=== PATIENT | female | born 1960 | race Caucasian/White ===

== ENCOUNTER 2023-05-08 10:06 | Outpatient (OUT) | payer BC, SELFPAY ==
--- NOTE | 2023-05-08 10:09 | MM_ITS ---
Patient: DANIELLA BEJARANO Exam Date: 05/08/2023 : 1960 Gender:F Ordering : DR Bayron Wells . Admission #: [id number] Family : Order #: [id number] CLICK HERE TO VIEW EXAM RADIOLOGY REPORT PROCEDURE: MM TOMOSYNTHESIS SCREENING LT COMPARISON: MG MAMM SCREEN LT 3D CAD, 04/11/2022. INDICATIONS: Screening Calculator Name NCI Breast Cancer Risk Assessment Tool 5 Year Breast Cancer Risk n/a% Lifetime Breast Cancer Risk n/a% Personal Breast Cancer Yes, Invasive CA of Right, 56 Personal Ovarian Cancer No Treatments Right mastectomy Family Cancers Aunt-maternal with breast cancer at age ~70; Aunt-paternal with breast cancer at age ~70. LOCATION: [facility] BREAST COMPOSITION: Scattered areas fibroglandular density. FINDINGS: DIAGNOSTIC CATEGORY 1--NEGATIVE. RIGHT BREAST: No significant suspicious finding. No significant change has occurred. LEFT BREAST: No significant suspicious finding. No significant change has occurred. RECOMMENDATIONS: ROUTINE MAMMOGRAM AND CLINICAL EVALUATION IN 12 MONTHS. PLEASE NOTE: A NORMAL MAMMOGRAM DOES NOT EXCLUDE THE POSSIBILITY OF BREAST CANCER. A CLINICALLY SUSPICIOUS PALPABLE LUMP SHOULD BE BIOPSIED. Dictated by: Amol Valles M.D. on 05/09/2023 at 09:58 Approved by: Amol Valles M.D. on 05/09/2023 at 09:59
== END 2023-05-08 10:07 | disposition home or self-care (01) ==
LOC: MAMMO 10:06
PROVIDERS: PCP Family Medicine; Visit Provider Family Medicine
DX: Z12.31 Encounter for screening mammogram for malignant neoplasm of breast (principal); Z85.3 Personal history of malignant neoplasm of breast; Z90.11 Acquired absence of right breast and nipple; Z80.3 Family history of malignant neoplasm of breast
CPT/HCPCS: 77063; 77067

== ENCOUNTER 2023-05-24 06:39 | Outpatient (OUT) | payer BC, SELFPAY ==
[2023-05-24 07:03] LABS: Basophils Absolute Auto 0.1 10^3/uL (0.0-0.1); Basophils Percent Auto 0.9 % (0.2-2.0); Eosinophils Absolute Auto 0.1 10^3/uL (0.0-0.7); Eosinophils Percent Auto 1.7 % (0.9-7.0); Hematocrit 36.7 % (36.0-48.0); Hemoglobin 11.9 g/dL (12.0-16.0); Immature Granulocytes Abs Auto 0.02 10^3/uL (0.00-0.03); Immature Granulocytes Pct Auto 0.4 % (0.0-0.5); Lymphocytes Absolute Auto 1.9 10^3/uL (1.2-3.8); Lymphocytes Percent Auto 35.5 % (20.5-60.0); Mean Corpuscular HGB Conc 32.4 g/dL (29.9-35.2); Mean Corpuscular Volume 83.4 fL (81.0-99.0); Mean Platelet Volume 9.1 fL (9.5-13.5); Monocytes Absolute Auto 0.4 10^3/uL (0.3-0.8); Monocytes Percent Auto 7.6 % (1.7-12.0); Neutrophils Absolute Auto 2.9 10^3/uL (1.4-6.5); Neutrophils Percent Auto 53.9 % (43.0-75.0); Platelet Count 217 10^3/uL (150-450); Red Cell Distribution Width 16.5 % (11.0-15.0); White Blood Count 5.3 10^3/uL (4.0-11.0)
[2023-05-24 07:24] LABS: Alanine Aminotransferase 52 U/L (14-59); Albumin Level 3.5 g/dL (3.4-5.0); Alkaline Phosphatase 80 U/L (46-116); Anion Gap 15.7; Aspartate Amino Transferase 38 U/L (15-37); BUN Creatinine Ratio 17.3; Bilirubin Total 0.4 mg/dL (0.2-1.0); Calcium 9.4 mg/dL (8.5-10.1); Carbon Dioxide 23.4 mmol/L (21.0-32.0); Chloride 107 mmol/L (98-107); Estimated GFR (African America >60 (>=60); Estimated GFR (Non-African Ame 57 (>=60); Globulin 3.6 g/dL; Glucose 121 mg/dL (74-106); Potassium 4.1 mmol/L (3.5-5.1); Sodium 142 mmol/L (136-145); Total Protein 7.1 g/dL (6.4-8.2)
== END 2023-05-24 06:40 | disposition home or self-care (01) ==
LOC: LAB 06:39
PROVIDERS: PCP Family Medicine; Visit Provider Internal Medicine Rheumatology
DX: M15.0 Primary generalized (osteo)arthritis (principal); Z79.899 Other long term (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
CPT/HCPCS: 36415; 80053; 85025

== ENCOUNTER 2023-07-12 07:37 | Outpatient (RCR) | payer BC, SELFPAY ==
[2023-07-12 09:50] VITALS: BP 133/70; PULSE 64; RESP 16; TEMP 36.4; O2SAT 94
[2023-07-12] MEDS: WATER FOR INJECTION STERILE INTRAVESIC (10:37)
[2023-07-12] MEDS: GEMCITABINE HCL INTRAVESIC (10:37)
--- NOTE | 2023-07-12 10:37 | PC.NURSE ---
0950: Pt. to [facility] amb. per self. Treatment reviewed and verified, consent obtained. VSS. Pt. to supine position. Using sterile technique, #16Fr christian cath inserted on first attempt with immediate return of clear yellow urine. Bladder emptied for 400 ML clear yellow urine. Pt. tolerated with no c/o pain. 1037: Christian drainage bag removed. CSTD plug place in catheter hub. Bladder instilled with Gemzar, 1000 mg per intravesicular route. Instructed pt. to turn side to side and front to back every 15min. x 1hr. Pt. relays understanding.
--- NOTE | 2023-07-12 11:15 | PC.NURSE ---
Pt. resting off and on with eyes closed. Denies c/o pain or burning in perineum. Denies needs.
--- NOTE | 2023-07-12 11:42 | PC.NURSE ---
1135: Pt calls out c/o bladder feeling full and Can't hold it anymore . This RN re-connects christian bag. Emptied for 500cc clear pale yellow urine. Pt. relays relief with draining of bladder. Stands at side of bed to stretch.
[2023-07-12] MEDS: DOCETAXEL INTRAVESIC (11:47)
[2023-07-12] MEDS: SODIUM CHLORIDE 0.9% INTRAVESIC (11:47)
--- NOTE | 2023-07-12 11:47 | PC.NURSE ---
1147: Pt. to supine position on bed. Christian bag removed. CSTD inserted into christian hub. Taxotere instilled into bladder per intravesicular syringe. Instructed pt to turn every 15min. Pt. relays understanding. Denies c/o pain or pressure at this time.
--- NOTE | 2023-07-12 12:15 | PC.NURSE ---
1215: Pt. tolerating medication without c/o burning in perineum. Turning every 15min as instructed. Denies needs.
--- NOTE | 2023-07-12 13:00 | PC.NURSE ---
1248: Treatment completed at this time. Bladder emptied for 300cc clear yellow urine. Gutierrez d/c'd. Pt. tolerated with minimal c/o. Given instructions on home care after voiding for the first 24hrs. Pt. relays understanding. 1300: Pt. without c/o. D/c'd amb. to home.
== END 2023-07-29 23:59 | disposition home or self-care (01) ==
LOC: INF 07:37
PROVIDERS: PCP Family Medicine
DX: C67.4 Malignant neoplasm of posterior wall of bladder (principal)
CPT/HCPCS: 51700; 99211; J9171; J9201

== ENCOUNTER 2023-08-07 07:24 | Outpatient (OUT) | payer BC, SELFPAY ==
[2023-08-07 09:47] VITALS: BP 142/86; PULSE 89; RESP 18; TEMP 36.6; O2SAT 98
[2023-08-07] MEDS: WATER FOR INJECTION STERILE INTRAVESIC (10:22)
[2023-08-07] MEDS: GEMCITABINE HCL INTRAVESIC (10:22)
--- NOTE | 2023-08-07 10:22 | PC.NURSE ---
1022: Gemzar, 1,000 mg, instilled into bladder after dual verification with Tanya Rizzo, SairaD. Instructed pt. to turn every 15min. side to side and front to back for 60min. as tolerated. Pt. relays understanding.
--- NOTE | 2023-08-07 10:36 | PC.NURSE ---
0947: Pt. to [facility] amb. per self. Seated on edge of bed. Denies any adverse reaction after last treatment. VSS. Given privacy to undress. 0958: Using sterile technique, #16 fr. christian cath inserted into bladder without difficulty with immediate return of clear yellow urine. Pt. tolerated with minimal c/o discomfort. 100 cc urine emptied from christian bag.
--- NOTE | 2023-08-07 11:22 | PC.NURSE ---
1122: 300 ML clear yellow urine drained from bladder. No redness or irritation observed. 1123: Docetaxel 37.5 mg instilled into bladder at this time. Pt. given same turning instructions, relays understanding. Warm blanket provided. Pt. denies needs.
[2023-08-07] MEDS: SODIUM CHLORIDE 0.9% INTRAVESIC (11:23)
[2023-08-07] MEDS: DOCETAXEL INTRAVESIC (11:23)
[2023-08-07 12:23] VITALS: BP 147/84; PULSE 79; RESP 18; TEMP 36.6; O2SAT 98
--- NOTE | 2023-08-07 12:33 | PC.NURSE ---
1223: Treatment completed at this time. 200 cc clear yellow urine emptied from bladder. Gutierrez cath removed at this time. Pt. given wipes to cleanse pamela area. Pt. tolerates all with no c/o pain or discomfort. VSS. 1230: Pt. d/c'd amb. to home.
== END 2023-08-07 07:25 | disposition home or self-care (01) ==
LOC: INF 07:27
PROVIDERS: PCP Family Medicine
DX: C67.9 Malignant neoplasm of bladder, unspecified (principal)
CPT/HCPCS: 51700; 51702; J9171; J9201

== ENCOUNTER 2023-08-30 14:07 | Outpatient (OUT) | payer BC, SELFPAY | END 2023-08-30 14:08 | disposition home or self-care (01) | LOC: PST 14:07 | PROVIDERS: PCP Family Medicine; Visit Provider Otolaryngology | DX: Z01.818 Encounter for other preprocedural examination (principal); K13.70 Unspecified lesions of oral mucosa ==

== ENCOUNTER 2023-09-04 07:44 | Outpatient (OUT) | payer BC, SELFPAY ==
[2023-09-04 11:27] VITALS: BP 104/55; PULSE 74; RESP 16; TEMP 36.8; O2SAT 98
--- NOTE | 2023-09-04 11:28 | PC.NURSE ---
0950: Pt. to [facility] amb. for monthly bladder infusions. Pt. seated at side of bed. VSS. Denies any adverse or delaysed reaction after last treatment. Pt. given privacy to undress. 1000: Using sterile technique, #16 Fr. christian catheter inserted into bladder with immediate return of 100cc clear, yellow urine. Christian secured. Pt. tolerated with minimal c/o discomfort. 1045: Drainage bag removed from christian cath. Gemcitabine 1000mg instilled into bladder at this time using closed system transfer devices. Instructed pt. to turn side to side and front to back for 1hr. Pt. relays understanding. 1100: Pt denies c/o burning or discomfort. Denies needs. 1130: Pt. without change. Denies needs or c/o. Warm blanket provided.
--- NOTE | 2023-09-04 14:07 | PC.NURSE ---
1150: Gemzar treatment completed. Bladder emptied for 175cc pale yellow urine. Pt. tolerates with minimal c/o, but relays occasional bladder spasm. No redness or irritation observed in perineum. Pt. denies burning or itching. 1203: Pt to supine position, bladder instilled with Docetaxel 37.5mg. Instructed pt. to turn side to side and front to back x's 1hr. Pt. relays understanding. Denies needs. Warm blanket provided. 1220: Pt. without c/o. Denies needs or c/o. 1305: Treatment completed at this time. Bladder emptied for 150cc pale yellow urine. Gutierrez cath. removed. Kala care provided. VSS. Pt. tolerated with no c/o pain or burning. 1315: Pt. d/c'd amb. to home.
== END 2023-09-04 07:45 | disposition home or self-care (01) ==
LOC: INF 07:44
PROVIDERS: PCP Family Medicine
DX: C67.9 Malignant neoplasm of bladder, unspecified (principal)
CPT/HCPCS: 51700; J9171; J9201

== ENCOUNTER 2023-09-05 06:49 | Day surgery (SDC) | payer BC, SELFPAY ==
--- NOTE | 2023-09-05 | OP_ITS ---
OPERATION DATE: ??09/05/2023 PREOPERATIVE DIAGNOSIS:? Right buccal lesion. POSTOPERATIVE DIAGNOSIS:? Right buccal lesion. PROCEDURE:? Removal of right buccal lesion with primary closure. ANESTHESIA:? Lidocaine 1% with 1:100,000 epinephrine. COMPLICATIONS:? None. FINDINGS:? A 4 mm pedunculated right buccal lesion. INDICATIONS:? This 63-year-old woman presented with a right buccal lesion, which she continually bit. PROCEDURE:? Patient identified in the holding area and taken back to the OR where she was placed in the supine position.? Lidocaine 1% with 1:100,000 epinephrine was infiltrated around the base of her lesion.? After waiting adequate time for hemostasis, the buccal mucosa was prepped with Betadine and then, using a tenotomy scissor, the lesion was removed.? The incision was closed with a single, interrupted 5-0 Vicryl horizontal mattress suture.? Patient was then discharged home in good condition. CARMEN
[2023-09-05 10:25] VITALS: BP 149/77; PULSE 71; RESP 20; TEMP 36.5; O2SAT 97
[2023-09-05 10:45] VITALS: BP 144/61; PULSE 66; RESP 18; O2SAT 98
[2023-09-05] MEDS: LIDOCAINE HCL 1%-EPINEPHRINE 1:100,000 20 ML MDV INJ (10:54)
[2023-09-05 10:55] VITALS: BP 136/64; PULSE 71; RESP 18; O2SAT 97
== END 2023-09-05 11:00 | disposition home or self-care (01) ==
PROVIDERS: PCP Family Medicine; Visit Provider Otolaryngology
PROC: (CPT 40812; principal; 2023-09-05 09:40)
DX: K13.70 Unspecified lesions of oral mucosa (principal); M19.90 Unspecified osteoarthritis, unspecified site; C67.9 Malignant neoplasm of bladder, unspecified; Z87.891 Personal history of nicotine dependence; Z87.440 Personal history of urinary (tract) infections; E66.9 Obesity, unspecified; Z96.651 Presence of right artificial knee joint; K21.9 Gastro-esophageal reflux disease without esophagitis; I10 Essential (primary) hypertension; J30.2 Other seasonal allergic rhinitis; Z90.49 Acquired absence of other specified parts of digestive tract; Z90.710 Acquired absence of both cervix and uterus; Z79.82 Long term (current) use of aspirin; Z79.899 Other long term (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; Z68.42 Body mass index [BMI] 45.0-49.9, adult
CPT/HCPCS: 40812; 88304; 88312

== ENCOUNTER 2023-09-14 08:00 | Outpatient (OUT) | payer BC, SELFPAY ==
[2023-09-14] MEDS: COVID VAC 23-24(12UP)MODERNA/PF 50 MCG/0.5 ML VIAL IM (16:00)
== END 2023-09-14 08:01 | disposition home or self-care (01) ==
LOC: VACCLI 10-13 16:20
PROVIDERS: PCP Family Medicine
DX: Z23 Encounter for immunization (principal)
CPT/HCPCS: 90480; 91322

== ENCOUNTER 2023-10-02 07:37 | Outpatient (RCR) | payer BC, SELFPAY ==
[2023-10-02 10:43] VITALS: BP 122/70; PULSE 87; RESP 16; TEMP 36.9; O2SAT 95
--- NOTE | 2023-10-02 10:45 | PC.NURSE ---
1000: Pt. to [facility] amb for monthly bladder infusion. VSS. Using sterile technique, #16 Fr. christian cath inserted easily with immediate return of clear yellow urine. Scant amount of mucous-like flecks observed in urine. Pt. tolerated with min. c/o discomfort. Awaits medication from pharmacy. Denies needs. Warm blanket provided.
[2023-10-02] MEDS: GEMCITABINE HCL INTRAVESIC (10:57)
[2023-10-02] MEDS: WATER FOR INJECTION STERILE INTRAVESIC (10:57)
--- NOTE | 2023-10-02 11:13 | PC.NURSE ---
1057: Gemcitabine, 1000mg instilled into bladder as ordered. Instructed pt. to turn side to side and front to back every 15mins. x's 1 hour. Pt. relays understanding.
[2023-10-02] MEDS: DOCETAXEL INTRAVESIC (12:03)
[2023-10-02] MEDS: SODIUM CHLORIDE 0.9% INTRAVESIC (12:03)
--- NOTE | 2023-10-02 13:56 | PC.NURSE ---
1157: Gemcitabine bladder instillation completed at this time. Bladder emptied for 150cc clear yellow urine. Pt. stands briefly to help drain bladder. Denies c/o burning or irritation to pelvic or perineal area. 1203: Pt. returns to bed, supine position. Bladder instilled with Docetaxel as ordered. Reminded pt. to turn every 15 minutes as indicated. Pt. relays understanding. 1215: Pt. denies c/o pain or burning. Denies needs. Warm blanket provided. 1303: Gutierrez drainage bag re-connected to catheter. Bladder emptied for 200cc clear yellow urine. Kala care provided. Gutierrez d/c'd at this time. Given privacy to dress. 1312: VSS. Pt. denies needs or c/o. D/c'd amb. to home.
[2023-10-02 14:02] VITALS: BP 128/64; PULSE 66; RESP 16; TEMP 36.6; O2SAT 98
== END 2023-10-02 14:00 | disposition home or self-care (01) ==
LOC: INF 07:37
PROVIDERS: PCP Family Medicine
DX: C67.4 Malignant neoplasm of posterior wall of bladder (principal)
CPT/HCPCS: 51700; J9171; J9201

== ENCOUNTER 2023-11-09 07:25 | Outpatient (RCR) | payer BC, SELFPAY ==
[2023-11-09 10:14] VITALS: BP 113/60; PULSE 81; RESP 16; TEMP 36.1; O2SAT 99
--- NOTE | 2023-11-09 10:15 | PC.NURSE ---
0950: Pt. to [facility] amb. for monthly intravesicular chemo treatment. Pt. to supine position on bed. Denies c/o s&s of UTI or burning w urination or foul smelling urine. VSS. Using sterile technique, #16 Fr. Gutierrez catheter inserted into bladder with immediate return of clear yellow urine. Pt. tolerated with minimal c/o discomfort. Denies c/o or needs.
[2023-11-09] MEDS: GEMCITABINE HCL INTRAVESIC (10:26)
[2023-11-09] MEDS: WATER FOR INJECTION STERILE INTRAVESIC (10:26)
--- NOTE | 2023-11-09 10:39 | PC.NURSE ---
1026: Pt. medicated with Gemcitabine 1000mg instilled into bladder. Instructed pt. to turn side to side and front to back every 15min. x's 1 hour. Pt. relays understanding. 1040: Pt. denies c/o burning or pain. Denies needs.
[2023-11-09] MEDS: SODIUM CHLORIDE 0.9% INTRAVESIC (11:33)
[2023-11-09] MEDS: DOCETAXEL INTRAVESIC (11:33)
--- NOTE | 2023-11-09 12:42 | PC.NURSE ---
1117: Pt. calls out c/o fullness in bladder and requests this RN to empty bladder. Gutierrez re-connected, bladder drained for 200cc clear yellow urine. Pt. stands for further relief and emptying of bladder. 1133: Pt. returns to supine position on bed. Bladder instilled with Docetaxel 37.5mg. Instructed to turn side to side and front to back every 15 min. x's 1 hour. 1145: Pt. without c/o pain or burning in bladder. Relays comfort. 1233: Treatment completed at this time. VSS. Gutierrez re-connected and emptied for 175mL clear yellow urine. Catheter removed. No redness or irritation observed in pamela area. Pt. tolerated without c/o. 1235: Pt. without c/o. D/c'd amb. to home per self.
[2023-11-09 12:48] VITALS: BP 103/58; PULSE 70; RESP 16; TEMP 36.1; O2SAT 99
== END 2023-11-29 23:59 | disposition home or self-care (01) ==
LOC: INF 07:25
PROVIDERS: PCP Family Medicine
DX: C67.4 Malignant neoplasm of posterior wall of bladder (principal)
CPT/HCPCS: 51700; 51702; J9171; J9201

== ENCOUNTER 2023-11-22 07:27 | Outpatient (OUT) | payer BC, SELFPAY ==
--- OUTSIDE RECORDS SUMMARY | 2023-11-22 07:32 | XMS_ITS | CCD ---
Author Name Unknown Address [address] [facility] [address] [place] [address] Organization [facility] Care Team Providers Care Custom Clothier Name Role Phone UNKNOWN, PROVIDER Admitting Unavailable UNKNOWN, PROVIDER Attending Unavailable SELF, REFERRED Referring Unavailable BAYRON SINGH Primary Care Unavailable BAYRON SINGH Primary Care Physician LUE ., DINA M Attending Unavailable LUE ., DINA M Admitting Unavailable LUE ., DINA M Consulting Unavailable NADERER, DR BAYRON Perez Primary Care Unavailable LUE ., DINA Sneed Attending Unavailable LUE ., DINA M Admitting Unavailable BARRE, DR SPARKLE Napoles Consulting Unavailable NADERER, DR BAYRON Perez Primary Care Unavailable LUE ., DNIA Sneed Consulting Unavailable SHANTAERESolange, DR BAYRON Perez Primary Care Unavailable FAWANTONIOD, COLLAZO H Admitting Unavailable FAWNATALIA, COLLAZO H Attending Unavailable FAWWAD, COLLAZO H Consulting Unavailable NEFCYFRANNY Consulting Unavailable LUE ., DINA M Attending Unavailable LUE ., DINA M Admitting Unavailable NADERER, DR BAYRON Perez Primary Care Unavailable ALEJO ROJAS Consulting Unavailable LUE ., DINA M Consulting Unavailable LUE ., DINA M Attending Unavailable LUE ., DINA M Admitting Unavailable NADERER, DR BAYRON Perez Primary Care Unavailable STU WHITEHEAD Consulting Unavailable LUE ., DINA M Consulting Unavailable NADERESolange, DR BAYRON Perez Primary Care Unavailable NADERER, DR BAYRON Perez Attending Unavailable NADERER, DR BAYRON Perez Referring Unavailable NADERER, DR BAYRON Perez Admitting Unavailable ZIEBER, DR LONG Narvaez Consulting Unavailable HOY ., DR HINOJOSA Admitting Unavailable HOY ., DR HINOJOSA Attending Unavailable HOY ., DR HINOJOSA Consulting Unavailable NADERER, DR BAYRON Perez Primary Care Unavailable NADERER, DR BAYRON Perez Primary Care Unavailable MISC, DR DANIEL Admitting Unavailable MISC, DR DANIEL Attending Unavailable MISC, DR DANIEL Consulting Unavailable NADERER, DR BAYRON Perez Consulting Unavailable NADERER, DR BAYRON Perez Attending Unavailable NADERER, DR BAYRON Perez Admitting Unavailable NADERER, DR BAYRON Perez Primary Care Unavailable NADERER, DR BAYRON Perez Primary Care Unavailable ALVAREZ, DR PAUL Admitting Unavailable ALVAREZ, DR PAUL Attending Unavailable ALVAREZ, DR PAUL Consulting Unavailable LUE ., DINA M Attending Unavailable LUE ., DINA M Admitting Unavailable LUE ., DINA M Consulting Unavailable NADERER, DR BAYRON Perez Primary Care Unavailable LUE ., DINA M Consulting Unavailable NADERER, DR BAYRON Perez Primary Care Unavailable LUE ., DINA M Admitting Unavailable LUE ., DINA M Attending Unavailable SANTIAGO, JARRET BUSCH Consulting Unavailable SHAVON II, ALEKSEY Consulting Unavailable NADERER, DR BAYRON Perez Primary Care Unavailable POLICAROJULISSA Consulting Unavailable LORAKO, KAYKAY Navarro Admitting Unavailable KATKO, KAYKAY Navarro Attending Unavailable MAC .LAVERNE Consulting Unavailable NADERER, DR BAYRON Perez Primary Care Unavailable NADERER, DR BAYRON Perez Attending Unavailable NADERER, DR BAYRON Perez Admitting Unavailable HOY ., DR HINOJOSA Consulting Unavailable NADERER, DR BAYRON Perez Consulting Unavailable GRECHNY ., PAULINA BORJA Consulting Unavailchilo e STRAWSERABDIAZIZ Consulting Unavailable LUE ., DINA M Consulting Unavailable NADERER, DR BAYRON Perez Primary Care Unavailable LUE ., DINA M Admitting Unavailable LUE ., DINA M Attending Unavailable LUE ., DINA M Attending Unavailable LUE ., DINA M Admitting Unavailable NADERER, DR BAYRON Perez Primary Care Unavailable LUE ., DINA M Consulting Unavailable LUE ., DINA M Attending Unavailable LUE ., DINA M Admitting Unavailable LUE ., DINA M Consulting Unavailable NADERER, DR BAYRON Perez Primary Care Unavailable Lue, Dina M. Attending Unavailable Lue, Dina M. Attending Unavailable RUY, AI E Attending Unavailable Lue, Dina M. Attending Unavailable RUY, AI E Attending Unavailable RUY, AI E Attending Unavailable Lue, Dina M. Attending Unavailable Lue, Dina M. Attending Unavailable RUY, AI E Attending Unavailable Lue, Dina M. Attending Unavailable Lue, Dina Oconnell Attending Unavailable Lue, Dina Oconnell Attending Unavailable LueDina Attending Unavailable Lue, Dina Oconnell Attending Unavailable AdamowiczJeff Attending Unavailable Adamowicz Jeff Admitting Unavailable Amari, Jeannee A Admitting Unavailable Palomar MountainBlanca A Attending Unavailable Lue, Dina Oconnell Attending Unavailable LueDina Admitting Unavailable Lue, Dina Oconnell Attending Unavailable LueDina Attending Unavailable Self, Referral Referring Unavailable Adamowicz II, Jeff J Attending Unavaila ble Adamowicz II, Jeff J Admitting Unavaila ble Naderer Bayron Primary Care Unavailable DIETER, FIRAS Admitting Unavailable DIETER, FIRAS Attending Unavailable DIETER, FIRAS Referring Unavailable DIETER, FIRAS Attending Unavailable DIETER, FIRAS Referring Unavailable DIETER, FIRAS Referring Unavailable DIETER, FIRAS Referring Unavailable DIETER, FIRAS Referring Unavailable DIETER, FIRAS Referring Unavailable DIETER, FIRAS Attending Unavailable DIETER, FIRAS Referring Unavailable DIETER, FIRAS Attending Unavailable DIETER, FIRAS Attending Unavailable DIETER, FIRAS Attending Unavailable DIETER, FIRAS Referring Unavailable DIETER, FIRAS Referring Unavailable NADERERBAYRON Attending Unavailable Allergies Allergy Classification Reported Allergen(s) Allergy Type Date of Onset Reaction(s) Facility (19 sources) Acetaminophen / oxyCODONE; 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: [acetaminophen-ox ycodone] Drug Allergy Headache (finding) [facility] (1 source) Acetaminophen / oxyCODONE Drug Allergy 9 [facility] (1 source) Acetaminophen / oxyCODONE; 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: [OXYCODONE-ACETAM INOPHEN] Drug Allergy 3 [facility] Repository Medications Current Medications Medication Drug Class(es) Dates Sig (Normalized) Sig (Original) aspirin 81 mg delayed release oral tablet (19 sources) Platelet Aggregation Inhibitor, Nonsteroidal Anti-inflammatory Drug Start: 07-07-2021 take 1 mg by mouth once daily aspirin 81 mg Oral EC Tab mg tab(s), Oral, Daily, Refills(s) 0 Start Date: 07/07/21 Status: Ordered Start: 03-26-2020 take 1 mg by mouth once daily aspirin 81 mg Oral EC Tab mg tab(s), Oral, Daily, Refills(s) 0 Start Date: 07/07/21 Status: Ordered Calcium Phosphate-Vitamin D3 (1 source) Start: 03-26-2020 Calcium Phosphate-Vitamin D3 Active March 26, 2020 12:00am estradiol 0.1 mg/ml vaginal cream (10 sources) Estrogen Start: 06-22-2022 Estrace 0.1 mg/g Cream See Instructions, 42.5 gm, Refill(s) 2, Apply a pea size amount around the urethra and vagina, 3x a wk for 4 wks, then 2x a week afterwards., [facility]/pharmacy #[id number], 163, cm, 06/22/22 8:33:00 EDT, Height/Length Dosing, 115, kg, 06/22/22 8:33:00 EDT, Weigh... Start Date: 06/22/22 Status: Ordered fluconazole 150 mg oral tablet (2 sources) Azole Antifungal Start: 12-14-2022 take 1 tablet by mouth once Diflucan 150 mg Tab 150 mg = 1 tab(s), Oral, Once, # 1 tab(s), Refills(s) 0, Pharmacy: [facility]/pharmacy #[id number], 163, cm, 10/26/22 10:27:00 EST, Height/Length Dosing, 115, kg, 10/26/22 10:27:00 EST, Weight Dosing Start Date: 12/14/22 Status: Ordered furosemide 20 mg oral tablet (18 sources) Loop Diuretic Start: 07-07-2021 take 1 mg by mouth once daily Lasix 20 mg Tab mg tab(s), Oral, Daily, Refills(s) 0 Start Date: 07/07/21 Status: Ordered letrozole 2.5 mg oral tablet (20 sources) Aromatase Inhibitor Start: 03-26-2020 End: 04-23-2021 take 1 mg by mouth once daily letrozole 2.5 mg Tab mg tab(s), Oral, Daily, Refills(s) 0 Start Date: 07/07/21 Status: Ordered 24 hr mirabegron 50 mg extended release oral tablet (5 sources) beta3-Adrenergi c Agonist Start: 01-04-2023 take 1 tablet by mouth once daily Myrbetriq 50 mg oral tablet, extended release 50 mg = 1 tab(s), Oral, Daily, # 30 tab(s), Refills(s) 11, Pharmacy: [facility]/pharmacy #[id number], 163, cm, 01/04/23 8:04:00 EST, Height/Length Dosing, 115, kg, 01/04/23 8:04:00 EST, Weight Dosing Start Date: 01/04/23 Status: Ordered Start: 10-14-2022 take 1 tablet by justo th once daily Myrbetriq 50 mg oral tablet, extended release 50 mg = 1 tab(s), Oral, Daily, # 30 tab(s), Refills(s) 11, Pharmacy: [facility]/pharmacy #[id number], 163, cm, 10/12/22 8:12:00 EST, Height/Length Dosing, 115, kg, 10/12/22 8:12:00 EST, Weight Dosing Start Date: 10/14/22 Status: Ordered multivitamin with minerals (1 source) Start: 04-26-2023 take 1 tablet by mouth once daily multivitamin with minerals 1 tab, Oral, Daily, Refill(s) 0 Start Date: 04/26/23 Status: Ordered nabumetone 750 mg oral tablet (1 source) Nonsteroidal Anti-inflammatory Drug Start: 04-26-2023 take 1 tablet by mouth once daily nabumetone 750 mg Tab 750 mg, Oral, Daily, Refills(s) 0 Start Date: 04/26/23 Status: Ordered olmesartan medoxomil 40 mg oral tablet (19 sources) Angiotensin 2 Receptor Lexy Start: 07-07-2021 take 1 mg by mouth once daily Benicar 40 mg Tab mg tab(s), Oral, Daily, Refills(s) 0 Start Date: 07/07/21 Status: Ordered Start: 03-26-2020 take 1 tablet by justo th once daily Olmesartan (Benicar) 20 mg Tablet Active 20 MG PO Daily March 26, 2020 12:00am omeprazole 40 mg delayed release oral capsule (1 source) Proton Pump Inhibitor Start: 03-26-2020 take 40 mg by mouth once daily Omeprazole Active 40 MG PO Daily March 26, 2020 12:00am oxaprozin 600 mg oral tablet (17 sources) Nonsteroidal Anti-inflammatory Drug Start: 07-07-2021 take 1 mg by mouth once daily oxaprozin 600 mg Tab mg tab(s), Oral, Daily, Refills(s) 0 Start Date: 07/07/21 Status: Ordered pantoprazole 40 mg delayed release oral tablet (11 sources) Proton Pump Inhibitor Start: 07-07-2021 take 1 mg by mouth twice daily Protonix 40 mg Tab-DR mg tab(s), Oral, BID, Refills(s) 0 Start Date: 07/07/21 Status: Ordered Potassium Chloride (1 source) Start: 04-26-2023 take 20 mg by mouth once daily potassium chloride 20 mg, Oral, Daily, Refills(s) 0 Start Date: 04/26/23 Status: Ordered Protonix 40 mg Tab-DR (7 sources) Start: 07-07-2021 take 1 mg by mouth twice daily Protonix 40 mg Tab-DR mg tab(s), Oral, BID, Refills(s) 0 Start Date: 07/07/21 Status: Ordered Start: 07-07-2021 take 1 mg by mouth once daily Protonix 40 mg Tab-DR mg tab(s), Oral, Daily, Refills(s) 0 Start Date: 07/07/21 Status: Ordered solifenacin succinate 10 mg oral tablet (18 sources) Cholinergic Muscarinic Antagonist Start: 05-18-2022 take 1 tablet by mouth once daily Vesicare 10 mg Tab 10 mg = 1 tab(s), Oral, Daily, # 90 tab(s), Refills(s) 3, Pharmacy: [facility]/pharmacy #[id number], 163, cm, 05/18/22 10:12:00 EDT, Height/Length Dosing, 115, kg, 05/18/22 10:12:00 EDT, Weight Dosing Start Date: 05/18/22 Status: Ordered Start: 10-13-2021 take 1 tablet by justo th once daily Vesicare 10 mg Tab 10 mg = 1 tab(s), Oral, Daily, # 30 tab(s), Refills(s) 5, Pharmacy: [facility]/pharmacy #[id number], 163, cm, 10/13/21 9:52:00 EST, Height/Length Dosing, 116, kg, 10/13/21 9:52:00 EST, Weight Dosing Start Date: 10/13/21 Status: Ordered sulfamethoxazole 800 mg / trimethoprim 160 mg oral tablet (11 sources) Dihydrofolate Reductase Inhibitor Antibacterial, Sulfonamide Antimicrobial Start: 05-18-2022 Bactrim DS 800 mg-160 mg Tab 1 tab(s), Oral, Daily, 10 tab(s), Refill(s) 1, Take 1 tablet day before treatment, and then 1 tablet day of treatment after treatment, [facility]/pharmacy #[id number], 163, cm, 05/18/22 10:12:00 EDT, Height/Length Dosing, 115, kg, 05/18/22 10:12:00 EDT, Weight Dosing Start Date: 05/18/22 Status: Ordered Start: 02-02-2022 Bactrim DS 800 mg-160 mg Tab 1 tab(s), Oral, Daily, 10 tab(s), Refill(s) 0, Prophylaxis for BCG, take day before and day of, [facility]/pharmacy #[id number], 163, cm, 02/02/22 8:04:00 EDT, Height/Length Dosing, 115, kg, 02/02/22 8:04:00 EDT, Weight Dosing Start Date: 02/02/22 Status: Ordered Start: 01-26-2022 Bactrim DS 800 mg-160 mg Tab 1 tab(s), Oral, q12hr, 2 tab(s), Refill(s) 6, [facility]/pharmacy #[id number], 163, cm, 01/26/22 8:21:00 EDT, Height/Length Dosing, 115, kg, 01/26/22 8:21:00 EDT, Weight Dosing Start Date: 01/26/22 Status: Ordered vibegron 75 MG Oral Tablet [Gemtesa] (1 source) Start: 01-05-2023 take 1 tablet by mouth once daily Gemtesa 75 mg oral tablet 75 mg = 1 tab(s), Oral, Daily, # 30 tab(s), Refills(s) 3, Pharmacy: [facility]/pharmacy #[id number], 163, cm, 01/04/23 8:04:00 EST, Height/Length Dosing, 115, kg, 01/04/23 8:04:00 EST, Weight Dosing Start Date: 01/05/23 Status: Ordered Vitamin D (18 sources) Start: 07-07-2021 Vitamin D International_Unit, Oral, qWeek, Refills(s) 0 Start Date: 07/07/21 Status: Ordered Completed/Discontinued Medications Medication Drug Class(es) Dates Sig (Normalized) Sig (Original) anastrozole 1 mg oral tablet (1 source) Aromatase Inhibitor Start: 03-26-2020 End: 03-27-2020 take 1 mg by mouth once daily Anastrozole Discontinued 1 MG PO Daily March 26, 2020 12:00am March 27, 2020 9:54am cephalexin 500 mg oral capsule (3 sources) Cephalosporin Antibacterial Start: 06-22-2022 take 1 tablet by mouth once daily Keflex 500 mg Cap 500 mg = 1 cap(s), Oral, Daily, Take 1 tablet morning of procedure., # 1 tab(s), Refills(s) 0, Pharmacy: [facility]/pharmacy #[id number], 163, cm, 06/22/22 8:33:00 EDT, Height/Length Dosing, 115, kg, 06/22/22 8:33:00 EDT, Weight Dosing Start Date: 06/22/22 Status: Ordered etodolac 400 mg oral tablet (1 source) Nonsteroidal Anti-inflammatory Drug Start: 03-26-2020 End: 03-26-2021 take 1 tablet by mouth three times daily Etodolac (Lodine) 400 mg Tablet Discontinued 300 MG PO Three times daily March 26, 2020 12:00am March 26, 2021 11:44am Problems Active Problems Problem Classification Problem Date Documented Da te Episodic/Chronic Bacterial infection; unspecified site (18 sources) Infection due to enterococcus 09-29-2021 Episodic Cancer of bladder (20 sources) Malignant neoplasm, overlapping lesion of bladder; 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: [Malignant neoplasm of overlapping sites of bladder] Onset: 01-26-2022 Chronic Essential hypertension (1 source) Essential (primary) hypertension; 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: [ESSENTIAL PRIMARY HYPERTENSION] Onset: 11-07-2022 Chronic Genitourinary symptoms and ill-defined conditions (19 sources) Incontinence; 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: [Mixed incontinence] Onset: 01-09-2023 07-14-2021 Chronic Genitourinary symptoms and ill-defined conditions (20 sources) History of urinary tract infection; 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: [Personal history of urinary (tract) infections] Onset: 01-26-2022 Episodic Menopausal disorders (17 sources) Atrophic vaginitis; 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: [Postmenopausal atrophic vaginitis] Onset: 06-22-2022 Chronic Osteoarthritis (5 sources) Primary generalized (osteo)arthritis; 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: [Unspecified osteoarthritis, unspecified site] Onset: 11-07-2022 Chronic Other aftercare (1 source) 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; 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: [OTH PEDIATRIC NP CURRENT DRUG THERAPY] Onset: 12-25-2022 Episodic Other aftercare (1 source) intermediate (current) use of aspirin; 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: [GROUP HOME CURRENT USE OF ASPIRIN] Onset: 12-13-2022 Episodic Other diseases of bladder and urethra (12 sources) Detrusor overactivity; 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: [Overactive bladder] Onset: 01-26-2022 Chronic Other diseases of bladder and urethra (18 sources) Overactive bladder 07-14-2021 Chronic Other diseases of bladder and urethra (1 source) Overactive bladder; 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: [OVERACTIVE BLADDER] Onset: 01-09-2023 Chronic Other diseases of bladder and urethra (2 sources) Other specified disorders of bladder; 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: [Other specified disorders of bladder] Onset: 03-13-2023 Chronic Other nutritional; endocrine; and metabolic disorders (18 sources) Body mass index 40+ - severely obese 12-29-2021 Chronic Other nutritional; endocrine; and metabolic disorders (1 source) Obesity, unspecified; 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: [OBESITY UNSPECIFIED] Onset: 11-07-2022 Chronic Other nutritional; endocrine; and metabolic disorders (1 source) Body mass index (BMI) 40.0-44.9, adult; 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: [BODY MASS INDEX BMI 40.0-44.9 ADULT] Onset: 11-07-2022 Chronic Other nutritional; endocrine; and metabolic disorders (1 source) Morbid (severe) obesity due to excess calories; 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: [MORBID SEVERE OBES D/T EXCESS ELDA] Onset: 06-01-2022 Chronic Residual codes; unclassified (1 source) Acquired absence of other specified parts of digestive tract; 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: [ACQ ABSENCE OTH PART DIGESTV TRACT] Onset: 01-09-2023 Episodic Residual codes; unclassified (1 source) Acquired absence of both cervix and uterus; 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: [ACQUIRED ABSENCE BOTH CERVIX AND UTERUS] Onset: 01-09-2023 Episodic Screening and history of mental health and substance abuse codes (19 sources) Ex-smoker; 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: [Personal history of nicotine dependence] Onset: 01-09-2023 09-08-2021 Episodic Unclassified (1 source) CONTACT W/AND (SUSP) EXPOS COVID-19; 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: [CONTACT W/AND (SUSP) EXPOS COVID-19] Onset: 04-04-2022 Unclassified (2 sources) Procedure; 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: [Procedure] Onset: 05-19-2023 Urinary tract infections (20 sources) Urinary tract infectious disease; 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: [Urinary tract infection, site not specified] Onset: 07-22-2022 09-22-2021 Episodic Past or Other Problems Problem Classification Problem Date Documented Da te Episodic/Chronic Cancer of bladder (5 sources) Personal history of malignant neoplasm of bladder; 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: [PERSONAL HX MALIG NEOPLASM BLADDER] Onset: 04-27-2022 Episodic Cancer of breast (3 sources) Personal history of malignant neoplasm of breast; 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: [History of malignant neoplasm of breast] Onset: 03-26-2021 03-27-2020 Episodic E Codes: Fall (1 source) Fall on same level from slipping, tripping and stumbling with subsequent striking against unspecified object, initial encounter; 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: [FALL SAME LVL SLIP STRK UNS OBJ INT] Onset: 11-07-2022 Episodic Fluid and electrolyte disorders (1 source) Dehydration; 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: [DEHYDRATION] Onset: 04-04-2022 Episodic Fracture of upper limb (1 source) Unspecified fracture of fourth metacarpal bone, right hand, initial encounter for closed fracture; 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: [UNS FX FOURTH MC BN RH INIT CLOS] Onset: 11-07-2022 Episodic Intestinal infection (1 source) Rotaviral enteritis; 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: [ROTAVIRAL ENTERITIS] Onset: 04-04-2022 Episodic Nausea and vomiting (1 source) Nausea with vomiting, unspecified; 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: [NAUSEA WITH VOMITING UNSPECIFIED] Onset: 04-04-2022 Episodic Neoplasms of unspecified nature or uncertain behavior (5 sources) Neoplasm of unspecified behavior of bladder; 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: [NEOPLASM UNS BEHAVIOR OF BLADDER] Onset: 05-09-2022 Episodic Other connective tissue disease (3 sources) Pain in right hand; 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: [PAIN IN RIGHT HAND] Onset: 11-05-2022 Episodic Other gastrointestinal disorders (3 sources) Diarrhea, unspecified; 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: [DIARRHEA UNSPECIFIED] Onset: 03-28-2022 Episodic Other lower respiratory disease (4 sources) Respiratory disorder, unspecified; 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: [RESPIRATORY DISORDER UNSPECIFIED] Onset: 05-26-2022 Episodic Other screening for suspected conditions (not mental disorders or infectious disease) (4 sources) Encounter for screening mammogram for malignant neoplasm of breast; 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: [ENC SCR MAMMO MALIG NEOPLASM BREAST] Onset: 04-11-2022 Episodic Phlebitis; thrombophlebitis and thromboembolism (1 source) Personal history of other venous thrombosis and embolism; 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: [PERS HX OTH VENOUS THROMBOSIS AND EMBO] Onset: 11-07-2022 Episodic Residual codes; unclassified (1 source) Family history of malignant neoplasm of breast; 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: [FAMILY HX MALIG NEOPLASM OF BREAST] Onset: 04-13-2022 Episodic Results Test Name Value Interpretation Reference Range Facility NON-RESIDENTIAL TECH CYTOLOGY - CELLULAR EXAMon 10-04-2023 LAB AP CASE REPORT [facility] Comment on above: Order Comment: Via c ysto Result Comment: Non- gynecologic Cytology Case: [id number] Authorizing Provider: Lisa Zelaya MD Collected: 10/04/20231450 Ordering Location: [facility] Received: 10/04/2023 145 Urology Pathologist: Yossi Sterling MD Specimen: Bladder washing Performed By: #### L AB13 ####[facility] LAB (BEAKER)[address] [place] [address] LAB AP CLINICAL INFORMATION Order Diagnoses [facility] Comment on above: Order Comment: Via c ysto Result Comment: C67. 4 - Malignant neoplasm of posterior wall of urinary bladder (CMS/HCC) [ICD-10-CM] Performed By: #### L AB13 ####[facility] (BEAKER)[address] [place] [address] LAB AP GROSS DESCRIPTION [facility] Comment on above: Order Comment: Via c ysto Result Comment: 14 m L clear, colorless fluid. Performed By: #### L AB13 ####[facility] (BEAKER)[address] [place] [address] LAB AP REPORT FINAL DIAGNOSIS NARRATIVE Normal [facility] Comment on above: Order Comment: Via c ysto Result Comment: Blad david washing, cytology: Negative for high-grade urothelial carcinoma. Performed By: #### L AB13 ####[facility] ([place])[address] [place] [address] Procedure Visiton 10-04-2023 Procedure Visit [id number] Wali Bejarano ruby A 1960 [facility] Provider Department Center 10/04/2023 Moe-LISA ZELAYA [facility] Family History Problem Relation Age of Onset Hypertension Mother Family Status - Relation Status Age at Mother Level of Service:50171 ID OFFICE/OUTPATIENT ESTABLISHED LOW MDM 20 MIN Reason for Visit and Comments: Follow-up [[id number]] [facility] Letter (Out)on 08-15-2023 Letter (Out) [id number] Wali Bejarano ruby A 1960 [facility] [place] 08/15/2023 None-None [facility] AUTH [facility] C Family History Problem Relation Age of Onset Hypertension Mother Family Status - Relation Status Age at Mother [facility] Letter (Out)on 08-11-2023 Letter (Out) [id number] Wali Bejarano ruby A 1960 [facility] Provider Department [place] 08/11/2023 None-None [facility] C Family History Problem Relation Age of Onset Hypertension Mother Family Status - Relation Status Age at Mother [facility] Letter (Out)on 07-07-2023 Letter (Out) [id number] Wali Bejarano ruby A 1960 [facility] [place] 07/07/2023 None-None [facility] Family History Problem Relation Age of Onset Hypertension Mother Family Status - Relation Status Age at Mother [facility] Orders Onlyon 06-29-2023 Orders Only [id number] Wali Bejarano ruby A 1960 [facility] [place] 06/29/2023 Sudhakar-IVAN NEAL [facility] Family History Problem Relation Age of Onset Hypertension Mother Family Status - Relation Status Age at Mother [facility] NON-RESIDENTIAL TECH CYTOLOGY - CELLULAR EXAMon 06-28-2023 LAB AP CASE REPORT [facility] Comment on above: Order Comment: Via c ysto Result Comment: Non- gynecologic Cytology Case: [id number] Authorizing Provider: Lisa Zelaya MD Collected: 06/28/2023 1455 Ordering Location: [facility] Received: 06/28/2023 1455 Urology Pathologist: Yossi Sterling MD Specimen: Bladder washing Performed By: #### L AB13 #### [facility] (BEAKER) [address] [place] [address] LAB AP CLINICAL INFORMATION Order Diagnoses [facility] Comment on above: Order Comment: Via c ysto Result Comment: C67. 4 - Malignant neoplasm of posterior wall of urinary bladder (CMS/HCC) [ICD-10-CM] Performed By: #### L AB13 #### [facility] (BEAKER) [address] [place] [address] LAB AP GROSS DESCRIPTION [facility] [facility] Comment on above: Order Comment: Via c ysto Result Comment: 13 m L yellow, cloudy fluid Performed By: #### L [id number] #### [facility] (BEAKER) [address] [place] [address] LAB AP REPORT FINAL DIAGNOSIS NARRATIVE [facility] Comment on above: Order Comment: Via c ysto Result Comment: A. B ladder washing: - Negative for high grade urothelial carcinoma. Performed By: #### L [id number] #### [facility] (BEAKER) [address] [place] [address] Procedure Visiton 06-28-2023 Procedure Visit [id number] Wali Bejarano 1960 F Date Provider Department Center 06/28/2023 [facility] URO [facility] Family History Problem Relation Age of Onset Hypertension Mother Family Status - Relation Status Age at Mother Level of Service:59166 ID OFFICE/OUTPATIENT ESTABLISHED LOW MDM 20-29 MIN Reason for Visit and Comments: Follow-up [946900] [facility] Operative Reporton 3 Operative Report [id number] D:127 [facility] Clinical Supporton 3 Clinical Support [id number] Wali Bejarano A 1960 Provider Department Center 06/02/2023 3079-[facility] ONC NURSE DCC ONC DCC Family History Problem Relation Age of Onset Hypertension Mother Family Status - Relation Status Age at Mother Normal [facility] Clinical Supporton 3 Clinical Support [id number] Wali Bejarano ruby A 1960 Provider Department Center 05/26/2023 3079-DCC ONC NURSE DCC ONC DCC Family History Problem Relation Age of Onset Hypertension Mother Family Status - Relation Status Age at Mother Reason for Visit and Comments: Procedure [88] - Gutierrez placement #5/6 [facility] Infusionon 05-05-2023 Infusion [id number] Wali Bejarano ruby A 1960 Provider Department Center 05/05/2023 2272-[facility] CHAIR 1 DCC INF DCC Family History Problem Relation Age of Onset Hypertension Mother Family Status - Relation Status Age at Mother Reason for Visit and Comments: Intravesicular Chemo [Other] [facility] Infusionon 04-28-2023 Infusion [id number] Wali Bejarano ruby A 1960 Provider Department Center 04/28/2023 2273-[facility] CHAIR 2 DCC INF DCC No family history on file [facility] Outside Oncologyon 3 Outside Oncology [id number] CD:127 [facility] Consent for Treatmenton 03-31 Consent for Treatment [id number]#[id number] D:127 [facility] Oncology Noteon 04-26-2023 Oncology Note Oncology On Site Coordinator Office Visit/Treatment Note Current Patient Status/Reason: Pt in for scheduled clinic visit. I accompanied Dr. Booth in room. Pt is following with urologist for bladder cancer with [facility]ist and is getting treatment at [place], with a physician there. Treatment Plan: none at this time, pt getting mammogram on left by PCP. Follow-Up Appointment Info/Referrals: F/U in 1 year. Resources Offered: Pt voiced no questions or concerns to me when I asked. Instructed pt to call with questions, concerns. Normal [facility] Comment on above: Result Comment: Elec tronically Signed By: Jennyfer TAMAYO, Kavita\.br\Date and Time Signed: 04/26/23 11:49 EDT Oncology Progress Noteon Oncology Progress Note Patient: DANIELLA BEJARANO Age: 62 years Sex: Female : 1960 Associated Diagnoses: None Author: Jeff Booth DO History of Present Illness */ 61 year old female with limited pmhx. 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 Dr. Ward performed R mastectomy in may 2017. Path confirmed 0.8cm grade 1 with single negative SLN. oncotype was low risk. She started arimidex in jun 2017. She had prolonged healing from her mastectomy. In 2017 we changed to femara for MSK complaints. She is tolerating well. Genetic counseling and testing was negative in through [facility]. Hx DVT after a knee replacement in january 2019. Completed 6 months xarelto. No prior hx thrombosis. 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 no detrusor muscle identified. she did intravescile bcg x 6 weeks. she had scope 08/25/21 noted urothelial mucosa no evidence of tumor. 09/22/21 had BCG weekly x 7 completed 12/22/21 she had another cystoscopy note/s noninvasive papillary urothelial carcinoma which is high grade. muscularis propria is present and uninvolved. she completed another intravescicle BCG in december through february 2022. april 2022 cystoscpoy was ok. may 2022, continued bcg maintenance #1 weekly x 01 oct 2022 continued weekly bcg maintenance #2 weekly x 3 again. 12/07/22 cystoscopy noted urothelial dysplasia, bordering in situ disease. She referred to Dr. Lisa Zelaya at [facility] who repeated the biopsy and was negative for cancer as well. He did 02/2023 cystoscopy with blue light, all pathology was negative at this time. She was recommended cystectomy, she declined. They also discussed pembrolizumab, but decision was made that BCG was failed and she is recommended for intravescular gem and taxotere intermittently for 5 years. Review of Systems Constitutional: Negative. Eye: Negative. Ear/Nose/Mouth/Throat: Negative. Respiratory: Negative. Cardiovascular: Negative. Gastrointestinal: Negative. Genitourinary: Negative. Hematology/Lymphatics: Negative. Endocrine: Negative. Immunologic: Negative. Musculoskeletal: Negative. Integumentary: Negative. Neurologic: Negative. Psychiatric: Negative. All other systems are negative Health Status Allergies: Allergic Reactions (Selected) Severity Not Documented Percocet- Headache. Current medications: Home Medications (11) Active aspirin 81 mg Oral EC Tab , Oral, Daily Benicar 40 mg Tab , Oral, Daily Estrace 0.1 mg/g Cream See Instructions Gemtesa 75 mg oral tablet 75 mg = 1 tab(s), Oral, Daily Lasix 20 mg Tab , Oral, Daily multivitamin with minerals 1 tab, Oral, Daily nabumetone 750 mg Tab 750 mg, Oral, Daily potassium chloride 20 mg, Oral, Daily Protonix 40 mg Tab-DR , Oral, BID Vesicare 10 mg Tab 10 mg = 1 tab(s), Oral, Daily Vitamin D , Oral, qWeek , No qualifying data available Problem list: All Problems Abnormal urinary stream / SNOMED CT 017240488 / Confirmed Vaginal atrophy / SNOMED CT 813463862 / Confirmed BMI 40.0-44.9, adult / SNOMED CT 9209571525 / Confirmed Former smoker / SNOMED CT 35321123 / Confirmed History of UTI / SNOMED CT 4156442760 / Confirmed Mixed incontinence / SNOMED CT 73873211 / Confirmed Enterococcus faecalis infection / SNOMED CT 3911494190 / Confirmed Urothelial carcinoma of bladder / SNOMED CT 356835614 / Confirmed Bladder cancer / SNOMED CT 588896523 / Confirmed OAB (overactive bladder) / SNOMED CT 5728944805 / Confirmed Urinary tract infection / SNOMED CT 013614654 / Confirmed Canceled: Bladder cancer / SNOMED CT 4881540570 Canceled: Microhematuria / SNOMED CT 719610263 Histories Past Medical History: No active or resolved past medical history items have been selected or recorded. Family History: Hypertension Father Mother Brother Anemia Father Arthritis Father Mother Prostate cancer Brother Procedure history: Cystoscopy and biopsy of bladder (3915951454) on 03/13/2023 at 62 Years. Comments: 03/16/2023 12:36 Roxana Fernando BLUE LIGHT CYSTOSCOPY Cystoscopy and transurethral resection of bladder tumor (3521769536) on 12/28/2022 at 62 Years. Comments: 01/04/2023 13:04 Roxana Garrison random bladder biopsies, BL ureteral washing Cystoscopy (85607539) on 12/07/2022 at 62 Years. Cystoscopy and transurethral resection of bladder tumor (3588549933) on 12/22/2021 at 61 Years. TURBT - Transurethral resection of bladder tumor (8809386502) on 07/26/2021 at 61 Years. Cystoscope (98456798) on 07/14/2021 at 61 Years. Breast surgery (5849427352). History of hysterectomy. (8813529776). Cholecystectomy (87354844). Ts - Tonsillectomy (657944138). Bilateral prosthetic arthroplasty of knees (8112994622). Social History Social & Psychosocial Habits Alcohol 07/07/2021 Risk Assessm (more content not included)... Normal [facility] Orders Onlyon 04-07-2023 Orders Only [id number] Wali Bejarano 1960 F Date Provider Department Center 04/07/2023 1644-[facility] SCH[facility] INF DCC No family history on file Normal [facility] Telemedicineon 04-04-2023 Telemedicine [id number] Wali Bejaraon 1960 F Date Provider Department Center 04/04/2023 397-LSIA ZELAYA DCC ONC DCC No family history on file Level of Service:99027 ID PHYS/QHP TELEPHONE EVALUATION 21-30 MIN Reason for Visit and Comments: Follow-up [790588] - Pathology results Normal [facility] Follow-Upon 03-28-2023 Follow-Up [id number] Wali Bejarano 1960 F Date Provider Department Center 03/28/2023 397-LISA ZELAYA ONC DCC No family history on file Level of Service:76683 ID OFFICE/OUTPATIENT ESTABLISHED HIGH MDM 40-54 MIN Reason for Visit and Comments: Follow-up [346138] - Cysto results Normal [facility] PATH CONSULTon 03-28-2023 LAB AP CASE REPORT Normal [facility] Comment on above: Result Comment: PATH OLOGY CONSULT Case: [id number] Authorizing Provider: Lisa Zelaya MD Collected: 03/28/2023 1439 Ordering Location: [facility] Lab Received: 03/28/2023 1441 Pathologist: Adelita Peralta MD Specimens: A) - Urine, Cytology B) - Ureteral washing, Right, Thin Prep C) - Ureteral washing, Left, Thin Prep Performed By: #### P ATH CONSULT #### [facility] ([facility]) [address] [place] [address] LAB AP CLINICAL INFORMATION Bladder cancer Normal [facility] Comment on above: Performed By: #### P ATH CONSULT #### [facility] ([facility]) [address] [place] [address] LAB AP DIAGNOSIS COMMENT Normal [facility] Comment on above: Result Comment: A. T he specimen is extremely hypocellular and is limited by scant material. B. The specimen is essentially acellular. C. The specimen is extremely hypocellular and is limited by scant material. Performed By: #### P ATH CONSULT #### [facility] ([facility]) [address] [place] [address] LAB AP GROSS DESCRIPTION A. Urine. Normal [facility] Comment on above: Result Comment: Rece ived from [facility], [facility] [place] [address], is one (1) previously stained glass slide accessioned [id number], collected on 12-07-22. The slide is accompanied by a copy of the contributing pathologists??? report. B. Ureteral washing. Received from [facility], [address] [place] [address], is one (1) previously stained glass slide accessioned [id number], collected on 12-28-22. The slide is accompanied by a copy of the contributing pathologists??? report. C. Ureteral washing. Received from [facility], [address] [place] [address], is one (1) previously stained glass slide accessioned [id number], collected on 12-28-22. The slide is accompanied by a copy of the contributing pathologists??? report. Performed By: #### P ATH CONSULT #### [facility] (BEAKER) [address] [place] [address] LAB AP REPORT FINAL DIAGNOSIS NARRATIVE Normal [facility] Comment on above: Result Comment: A. U rine, cytology ([id number], 1 slide, collected on 12-07-22): - Rare atypical urothelial cells present (see comment) B. Right ureteral washing, cytology (OSS#[id number], 1 slide, collected on 12-28-22): - Non-diagnostic (see comment) C. Left ureteral washing, cytology (OSS#[id number], 1 slide, collected on 12-28-22) - Non-diagnostic (see comment) Performed By: #### P ATH CONSULT #### [facility] (BEAKER) [address] [place] [address] LAB AP CASE REPORT Normal [facility] Comment on above: Result Comment: PATH OLOGY CONSULT Case: [id number] Authorizing Provider: Lisa Zelaya MD Collected: 03/28/2023 1418 Ordering Location: [facility] Lab Received: 03/28/2023 1420 Pathologist: Kari Marte MD Specimens: A) - Soft Tissue, Left lateral bladder wall biopsy B) - Soft Tissue, Bladder dome biopsy C) - Soft Tissue, Right lateral bladder wall biopsy D) - Soft Tissue, Right posterior bladder wall biopsy Performed By: #### P ATH CONSULT #### [facility] (BEAKER) [address] [place] [address] LAB AP CLINICAL INFORMATION Bladder Cancer [facility] Comment on above: Performed By: #### P ATH CONSULT #### [facility] ([facility]) [address] [place] [address] LAB AP GROSS DESCRIPTION A. Soft Tissue. [facility] Comment on above: Result Comment: Rece ived from [facility], [address] [place] [address], are five (5) previously stained glass slides accessioned [id number], collected on 12-28-22. The slides are accompanied by a copy of the contributing pathologists??? report. B. Soft Tissue. Received from [facility], [address] [place] [address], are two (2) previously stained glass slides accessioned [id number], collected on 12-28-22. The slides are accompanied by a copy of the contributing pathologists??? report. C. Soft Tissue. Received from [facility], [address] [place] [address], are two (2) previously stained glass slides accessioned [id number], collected on 12-28-22. The slides are accompanied by a copy of the contributing pathologists??? report. D. Soft Tissue. Received from [facility], [address] [place] [address], are five (5) previously stained glass slides accessioned [id number], collected on 12-28-22. The slides are accompanied by a copy of the contributing pathologists??? report. Performed By: #### P ATH CONSULT #### [facility] ([facility]) [address] [place] [address] LAB AP REPORT FINAL DIAGNOSIS NARRATIVE [facility] Comment on above: Result Comment: A. L eft lateral bladder wall biopsy ([id number], 5 slides, collected on 12-28-22): - Denuded urothelium; negative for carcinoma. - Muscularis propria present; negative for carcinoma. B. Bladder dome biopsy (OSS#[id number], 2 slides, collected on 12-28-22): - Benign urothelial mucosa; negative for carcinoma. - No muscularis propria present. C. Right lateral bladder wall, biopsy (OSS#[id number], 2 slides, collected on 12-28-22): - Benign urothelial mucosa; negative for carcinoma. - Muscularis propria present; negative for carcinoma. D. Right posterior bladder wall, biopsy (OSS#[id number], 5 slides, collected on 12-28-22): - Urothelial mucosa with very minute focus of carcinoma in situ. - Muscularis propria present; negative for carcinoma. Performed By: #### P ATH CONSULT #### [facility] (BEAKER) [address] [place] [address] Patient Letter [facility] Patient Letter [facility] (Inserted Image. Lindsay ble to display) March 21, 2023 DANIELLA BEJARANO [address] [place] [address] : 1960 To whom it may concern, This patient is currently under the care of Dr. Dina Cobb MD at [facility]. We are requesting any and all information regarding her recent surgery she had performed at [facility]. Surgery reports, and any pathology/imaging reports are highly requested to be sent to our office for our records. Please fax any relevant information to our office at [phone]. If you have any questions please feel free to call our office at [phone]. Thank you [facility] [address] [place] [address] Normal [facility] Pathology Noteon 03-18-2023 Pathology Note [id number] D:127 Normal [facility] Reminderson 03-18-2023 Reminders - From: Roxana Lindsey To: EU - Recalls Lujavon; Sent: 01/05/2023 15:34:58 EST Show up: 01/05/2023 15:35:00 EST Subject: appt with Dr Booth Due Date/Time: 01/28/2023 15:35:00 EDT Reminder/Recall Patient will need seen by Dr Booth after blue light cystoscopy is completed at [facility] with Dr Zelaya appt with Dr Zelaya is scheduled for 02/22/23, will wait for consultation note. Consult note located on clinisync and scanned in to pt chart for review. From: Mana Hodges (EU - Recalls Reza) To: AI MITCHELL PA-C; Sent: 03/16/2023 08:21:03 EDT Show up: 03/16/2023 08:20:00 EDT Subject: RE: appt with Dr Booth Review Consult note pt is scheduled for BCG treatments. From: AI MITCHELL PA-C To: Reza JAMES, Dina Oconnell; Sent: 03/17/2023 22:55:13 EDT ! Show up: 03/17/2023 22:55:00 EDT there is another message in about this. [facility] Orders Onlyon 03-16-2023 Orders Only [id number] AamirWali Perez 1960 F Date Provider Department Center 03/16/2023 [facility] G[facility] URO [facility] No family history on file [facility] HISTOLOGY - TISSUE EXAMon LAB AP ASR DISCLAIMER The interpretation of this case included the use of immunohistochemistry or special stains. These tests have not been cleared or approved by the U.S. Food and Drug Administration. The FDA has determined that such clearance or approval is not necessary. These tests are used for clinical purposes and should not be regarded as investigational or for research. This laboratory is certified to perform high complexity testing under the Clinical Laboratory Improvement Amendments of 1998. [facility] Comment on above: Order Comment: Pre-o p diagnosis: Malignant neoplasm of posterior wall of urinary bladder (CMS/HCC) [C67.4] Performed By: #### L [id number] #### [facility] (BEAKER) [address] [place] [address] LAB AP CASE REPORT Normal [facility] Comment on above: Order Comment: Pre-o p diagnosis: Malignant neoplasm of posterior wall of urinary bladder (CMS/HCC) [C67.4] Result Comment: Surg ical Pathology Case: [id number] Authorizing Provider: Lisa Zelaya MD Collected: 03/13/2023809 Ordering Location: [facility] Main Operating Room Received: 03/13/2023903 Pathologist: Kari Marte MD Specimens: A) - Urinary Bladder, 2. right lateral wall bladder lesion, R/O carcinoma in situ B) - Urinary Bladder, right posterior wall bladder lesion R/O carcinoma in CIS C) - Urinary Bladder, left anterior wall bladder lesion R/O carcinoma is situ Performed By: #### L [id number] #### [facility] ([facility]) [address] [place] [address] LAB AP CLINICAL INFORMATION [facility] Comment on above: Order Comment: Pre-o p diagnosis: Malignant neoplasm of posterior wall of urinary bladder (CMS/HCC) [C67.4] Result Comment: Post -Op Diagnoses C67.4 - Malignant neoplasm of posterior wall of urinary bladder (CMS/HCC) [ICD-10-CM] Performed By: #### L [id number] #### [facility] (BEAKER) [address] [place] [address] LAB AP DIAGNOSIS COMMENT A-C. CK20 immunostain shows positive staining in only the most superficial cells of the urothelial epithelium; this pattern is consistent with the above diagnoses. Normal [facility] Comment on above: Order Comment: Pre-o p diagnosis: Malignant neoplasm of posterior wall of urinary bladder (CMS/HCC) [C67.4] Performed By: #### L [id number] #### [facility] (BEAKER) [address] [place] [address] LAB AP GROSS DESCRIPTION [facility] Comment on above: Order Comment: Pre-o p diagnosis: Malignant neoplasm of posterior wall of urinary bladder (CMS/HCC) [C67.4] Result Comment: A. U rinary Bladder. Received in formalin , labeled Daniella Bejarano, 2. right lateral wall bladder lesion, R/O carcinoma in situ . It consists of 4 rankin irregular soft fragments, 0.3-0.6 cm in greatest dimension and 1.0 x 0.8 x 0.2 cm in aggregate. The specimen is entirely submitted in 1 cassette. Yossi Hardin, Pathologists' Certified Ethical Hacker B. Urinary Bladder. Received in formalin , labeled Daniella Wallsrmario, right posterior wall bladder lesion R/O carcinoma in CIS . It consists of a 0.5 x 0.3 x 0.2 cm irregular rankin soft fragment of tissue. The specimen is entirely submitted in 1 cassette. Yossi Hardin, Pathologists' Certified Ethical Hacker C. Urinary Bladder. Received in formalin , labeled Daniella Wallsrk, left anterior wall bladder lesion R/O carcinoma is situ . It consists of 4 white to pale-rankin soft fragments, 0.4-0.5 cm in greatest dimension and 0.8 x 0.7 x 0.2 cm in aggregate. The specimen is entirely submitted in 1 cassette. Portions of the specimen not survive processing. Yossi Hardin Pathologists' Certified Ethical Hacker Performed By: #### L [id number] #### [facility] (AKER) [address] [place] [address] LAB AP MICROSCOPIC DESCRIPTION Microscopic examination performed. [facility] Comment on above: Order Comment: Pre-o p diagnosis: Malignant neoplasm of posterior wall of urinary bladder (CMS/HCC) [C67.4] Performed By: #### L [id number] #### [facility] (BEAKER) [address] [place] [address] LAB AP REPORT FINAL DIAGNOSIS NARRATIVE [facility] Comment on above: Order Comment: Pre-o p diagnosis: Malignant neoplasm of posterior wall of urinary bladder (CMS/HCC) [C67.4] Result Comment: A. R ight lateral wall bladder lesion, transurethral resection: - Urothelial mucosa; no evidence of carcinoma. - Muscularis propria present and not involved by tumor. - See comment. B. Right posterior wall bladder lesion, transurethral resection: - Urothelial mucosa; no evidence of carcinoma. - Scant muscularis propria present and not involved by tumor. - See comment. C. Left anterior wall bladder lesion, transurethral resection: - Partially ulcerated urothelial mucosa with acute inflammation and granulomatous inflammation. - No evidence of carcinoma. - Very scant muscularis propria present and not involved by tumor. - See comment. Performed By: #### L [id number] #### [facility] (BEAKER) [address] [place] [address] HPon 03-13-2023 HP --- Attestation signed by Lisa Zelaya MD at 03/13/2023 7:31 AM Saw Ms Bejarano explained procedure, informed consent confirmed. Lisa Zelaya MD, FACS Buyer Intern of Urology Chief of Urologic Oncology Ross [facility] Endowed Chair [address] [place] [address]. Mail Stop [address] [place], [place] [address] [facility] [phone] fax H&P reviewed. The patient was examined and there are no changes to the H&P. Normal [facility] NON-RESIDENTIAL TECH CYTOLOGY - CELLULAR EXAMon 03-13-2023 LAB AP CASE REPORT Normal [facility] Comment on above: Order Comment: Pre-o p diagnosis: Malignant neoplasm of posterior wall of urinary bladder (CMS/HCC) [C67.4] Result Comment: Non- gynecologic Cytology Case: [id number] Authorizing Provider: Lisa Zelaya MD Collected: 03/13/2023 0759 Ordering Location: [facility] Main Operating Room Received: 03/13/2023 0979 Pathologist: Adelita Peralta MD Specimen: Bladder washing, 1. bladder wash for cytology Performed By: #### L [id number] #### [facility] (BEAKER) [address] [place] [address] LAB AP CLINICAL INFORMATION Normal [facility] Comment on above: Order Comment: Pre-o p diagnosis: Malignant neoplasm of posterior wall of urinary bladder (CMS/HCC) [C67.4] Result Comment: Post -Op Diagnoses C67.4 - Malignant neoplasm of posterior wall of urinary bladder (CMS/HCC) [ICD-10-CM] Performed By: #### L [id number] #### [facility] (BEAKER) [address] [place] [address] LAB AP DIAGNOSIS COMMENT Normal [facility] Comment on above: Order Comment: Pre-o p diagnosis: Malignant neoplasm of posterior wall of urinary bladder (CMS/HCC) [C67.4] Result Comment: See also concurrent biopsy, [id number]. Performed By: #### L [id number] #### [facility] (BEAKER) [address] [place] [address] LAB AP GROSS DESCRIPTION [facility] Comment on above: Order Comment: Pre-o p diagnosis: Malignant neoplasm of posterior wall of urinary bladder (CMS/HCC) [C67.4] Result Comment: 80 m L yellow, cloudy fluid Performed By: #### L AB13 #### [facility] (BEAKER) [address] [place] [address] LAB AP REPORT FINAL DIAGNOSIS NARRATIVE Normal [facility] Comment on above: Order Comment: Pre-o p diagnosis: Malignant neoplasm of posterior wall of urinary bladder (CMS/HCC) [C67.4] Result Comment: A. B ladder washing: - Rare atypical urothelial cells Performed By: #### L [id number] #### [facility] (BEAKER) [address] [place] [address] NURSNOTEon 03-13-2023 NURSNOTE Pt with cont pain/bladder spasm. Notified Dr Barraza. Order for [place] and given orally due to IV Dc'd after infiltrate. Taken with crackers to avoid stomach upset. Pt cont with Scopalamine patch behind left ear. Instructions given for removal. Normal [facility] NURSNOTE Reviewed DC instructions with patient and with copy given. Prescription filled and sent home with patient. Med given for bladder spasm and IV Dilaudid for pain. Noted IV infiltration after Dilaudid administration. IV Dc'd and warm compress applied. Pt will get pain med dose but will now absorb subcutaneous due to infiltrate. Will cont to monitor. Gutierrez catheter in place draining clear yellow urine. Normal [facility] OPNOTEon 03-13-2023 OPNOTE --- Attestation with edits by Lisa Zelaya MD at 03/24/2023 9:42 PM I personally saw and examined the patient on the same date of service as resident/fellow lLoyd Stacy MD. I discussed the findings and therapeutic plan with the resident/fellow . I agree with the documentation, except for any edits/updates below. Teaching Physician's Revisions: I was present and performed entire procedure. Lisa Zelaya MD, FACS Buyer Intern of Urology Chief of Urologic Oncology Ross Garcia Endowed Chair [address] [facility]. Mail Stop [address] [place], [place] [address] [facility] [phone] fax White and Blue-light cystoscopy, BLADDER BIOPSY, FULGURATION X3, Retrograde pyelogram, EUA (B) Operative Note Date: 03/13/2023 Location: [facility] OR Name: Daniella Bejarano, : 1960, Diagnosis Pre-op Diagnosis * Malignant neoplasm of posterior wall of urinary bladder (CMS/HCC) [C67.4] Post-op Diagnosis * Malignant neoplasm of posterior wall of urinary bladder (CMS/HCC) [C67.4] Procedures 1. White and Blue-light cystoscopy 2. Bilateral retrograde pyelogram with interpretation of images 3. Transurethral bladder biopsy and fulguration x3 4. Exam under anesthesia 5. Fluoroscopy time < 1 hour Surgeons * Lisa Zelaya MD, FACS - Primary Resident * Lloyd Stacy MD Procedure Summary Anesthesia: General endotracheal ASA: III Estimated Blood Loss: 20 mL Total IV Fluids: 500 mL Drains: Urethral Catheter Latex 16 Fr. (Active) Site Assessment Clean 03/13/23 0847 Collection Container Standard drainage bag 03/13/23 0847 Securement Method Leg strap 03/13/23 0847 Specimens ID Source Type Tests Collected By Collected At Frozen? Priority Lab ID A Bladder washing Washing NON-RESIDENTIAL TECH CYTOLOGY - CELLULAR EXAM Lisa Zelaya MD 03/13/23 0759 Description: 1. bladder wash for cytology B Urinary Bladder Tissue HISTOLOGY - TISSUE EXAM Lisa Zelaya MD 03/13/23 0810 Description: 2. right lateral wall bladder lesion, R/O carcinoma in situ C Urinary Bladder Tissue HISTOLOGY - TISSUE EXAM Lisa Zelaya MD 03/13/23 0818 Description: right posterior wall bladder lesion R/O carcinoma in CIS D Urinary Bladder Tissue HISTOLOGY - TISSUE EXAM Lisa Zelaya MD 03/13/23 0822 Description: left anterior wall bladder lesion R/O carcinoma is situ Staff: Hotel Staff Member: Fidelia Enriquez RN Scrub Person: Rika Tsai RN Indications: Daniella Bejarano is an 62 y.o. female who is having surgery for Malignant neoplasm of posterior wall of urinary bladder (CMS/HCC) [C67.4]. Ms. Bejarano has HTN, left breast cancer s/p radical mastectomy (BHANU) arthritis, GERD, remote DVT treated with Xarelto currently on none, morbid obesity, BMI 42.91 kg/m???, sleep apnea, high-grade urothelial carcinoma of the bladder who presents to discuss management for BCG unresponsive disease. Ms. Bejarano developed recurrent UTI in 06/2021 and had a cystoscopy 07/14/2021 revealed a bladder lesion. Subsequently, Ms. Bejarano Had the following procedures by her local urologist Dina Cobb MD - 07/23/2021: underwent TURBT revealed high-grade invasive papillary urothelial carcinoma, pT1 muscle not in specimen for evaluation. -08/25/2021: ReTURBT negative for disease, muscle present and uninvolved. - 09/22/2021: started intravesical BCG induction course #1 weekly x6 completed 10/27/2021. - 12/23/2021: underwent TURBT postoperative gemcitabine for recurrent bladder tumor. 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 - 01/26/2022: started BCG induction course #2 weekly x6 completed 03/02/2022. - 04/2022: surveillance cystoscopy revealed calcified regrowth on left lateral wall. - 05/12/2022: underwent TURBT, pathology revealed no evidence of urothelial carcinoma recurrence. - 06/22/2022: continued on BCG maintenance, completed BCG maintenance #1 weekly x3 on 07/06/2022. - 06/2022: CT urogram: Reported to be negative - 10/12/2022: completed BCG maintenance #2 weekly x3 on 10/26/2022. - 12/07/2022: a 3-month surveillance cystoscopy revealed a 2 mm minimally hyperemic submucosal area on left posterior wall, described not velvety erythematous or raised. Urethra without lesion. However, cytology showed atypical cells suspicious for high-grade urothelial carcinoma. - 12/28/2022: underwent cystoscopy with narrowband imaging, TURBT with bilateral upper tract washing, bilateral retrograde pyelograms. Findings: Irregularity on left lateral wall which was obtained given prior resection, cold cup biopsy was obtained from left lateral wall, dome, right lateral wall, and posterior wall targeting potentially in the irregular site. No discrete tumors or lesion. Pathology revealed in the right posterior bladde (more content not included)... Normal [facility] POCT GLUCOSE METER UNSOLICIT ED RESULTSon 03-13-2023 Glucose [Mass/Vol] 99 mg/dL Normal 70-105 [facility] Comment on above: Result Comment: pbar retcorson Performed By: #### L [id number] #### [facility] (BEAKER) [address] [place] [address] Orders Onlyon 03-10-2023 Orders Only [id number] Wali Bejarano A 1960 F Date Provider Department Center 03/10/2023 [id number], HISTORICAL C URO [facility] No family history on file Normal [facility] Outside Labson 03-10-2023 Outside Labs [id number]#1.00 CD:127 Normal [facility] Outside Pathology Reporton 0 03-10-2023 Outside Pathology Report [id number]#1.00 CD:127 Normal [facility] Outside Radiologyon 03-10-20 Outside Radiology [id number] [id number]#1.00 CD:127 Normal [facility] Consultation Noteon 03-09-20 Consultation Note [id number]#1.00C D:127 Normal [facility] Orders Onlyon 03-09-2023 Orders Only [id number] Wali Bejarano 1960 F Date Provider Department Center 03/09/2023 [facility] Medical C No family history on file Normal [facility] Pathology Noteon 03-09-2023 Pathology Note [id number] D:127 Normal [facility] CBC AUTO DIFFon 03-06-2023 BASO # 0.1 103/ul Normal 0.0-0.1 [facility] Comment on above: Performed By: #### C YTO #### [facility] [address] [place] [address] Dr. Troy Jeter Basophils/100 WBC (Bld) 1.1 % Normal 0.2-2.0 [facility] Comment on above: Performed By: #### C YTO #### [facility] [address] [place] [address] Dr. Troy Jeter EO # 0.2 103/ul Normal 0.0-0.[address] [facility] Comment on above: Performed By: #### C YTO #### [facility] [address] [place] [address] Dr. Troy Jeter Eosinophils/100 WBC (Bld) 2.8 % Normal 0.9-7.0 [facility] Comment on above: Performed By: #### C YTO #### [facility] [address] [place] [address] Dr. Troy Jeter Erythrocyte distribution width (RBC) [Ratio] 15.1 % Critically high 11.0-15.0 [facility] Comment on above: Performed By: #### C YTO #### [facility] [address] [place] [address] Dr. Troy Jeter Hematocrit (Bld) [Volume fraction] 39.7 % Normal 36.0-48.0 [facility] Comment on above: Performed By: #### C YTO #### [facility] [address] [place] [address] Dr. Troy Jeter Hemoglobin (Bld) [Mass/Vol] 12.3 g/dL Normal 12.0-16.0 [facility] Comment on above: Performed By: #### C YTO #### [facility] [address] [place] [address] Dr. Troy Jeter IG # 0.02 10e3/ul Normal 0.00-0.03 [facility] Comment on above: Performed By: #### C YTO #### [facility] [address] [place] [address] Dr. Troy Jeter IG % 0.4 % Normal 0.0-0.[address] [facility] Comment on above: Performed By: #### C YTO #### [facility] [address] [address] [address] Troy Jeter LYMPH # 1.3 103/ul Normal 1.2-3.8 [facility] Comment on above: Performed By: #### C YTO #### [facility] [address] [address] [address] Troy Jeter Lymphocytes/100 WBC (Bld) 22.0 % Normal 20.5-60.0 [facility] Comment on above: Performed By: #### C YTO #### [facility] [address] [place] [address] Dr. Troy Jeter MANUAL DIFF REQ NO Normal [facility] Comment on above: Performed By: #### C YTO #### [facility] [address] [place] [address] Dr. Troy Jeter MCH (RBC) [Entitic mass] 25.5 pg Critically low 26.7-34.0 [facility] Comment on above: Performed By: #### C YTO #### [facility] [address] [place] [address] Dr. Troy Jeter MCHC (RBC) [Mass/Vol] 31.0 g/dL Normal 29.9-35.2 [facility] Comment on above: Performed By: #### C YTO #### [facility] [address] [place] [address] Dr. Troy Jeter MCV (RBC) [Entitic vol] 82.2 fL Normal 81.0-99.0 [facility] Comment on above: Performed By: #### C YTO #### [facility] [address] [place] [address] Dr. Troy Jeter MONO # 0.5 103/ul Normal 0.3-0.8 [facility] Comment on above: Performed By: #### C YTO #### [facility] [address] [place] [address] Dr. Troy Jeter Monocytes/100 WBC (Bld) 8.6 % Normal 1.7-12.0 [facility] Comment on above: Performed By: #### C YTO #### [facility] [address] [place] [address] Dr. Troy Jeter NEUT # 3.7 103/ul Normal 1.4-6.5 [facility] Comment on above: Performed By: #### C YTO #### [facility] [address] [place] [address] Dr. Troy Jeter Neutrophils/100 WBC (Bld) 65.1 % Normal 43.0-75.0 [facility] Comment on above: Performed By: #### C YTO #### [facility] [address] [place] [address] Dr. Troy Jeter Platelet mean volume (Bld) [Entitic vol] 9.0 fL Critically low 9.5-13.5 [facility] Comment on above: Performed By: #### C YTO #### [facility] [address] [place] [address] Dr. Troy Jeter PLT 211 103/ul Normal 150-450 [facility] Comment on above: Performed By: #### C YTO #### [facility] [address] [place] [address] Dr. Troy Jeter RBC 4.83 106/ul Normal 4.20-5.40 [facility] Comment on above: Performed By: #### C YTO #### [facility] [address] [place] [address] Dr. Troy Jeter WBC 5.7 103/ul Normal 4.0-11.0 [facility] Comment on above: Performed By: #### C YTO #### [facility] [address] [place] [address] Dr. Troy Jeter PROF 14(COMP METB)on 023 Albumin [Mass/Vol] 3.4 g/dL Normal 3.4-5.0 [facility] Comment on above: Performed By: #### C BC #### [facility] [address] [place] [address] Dr. Troy Jeter Albumin/Globulin [Mass ratio] 0.9 {ratio} Normal [facility] Comment on above: Performed By: #### C BC #### [facility] [address] [address] [address] Troy Jeter ALP [Catalytic activity/Vol] 94 U/L Normal 46-116 [facility] Comment on above: Performed By: #### C BC #### [facility] [address] [address] [address] Troy Jeter ALT [Catalytic activity/Vol] 61 U/L Critically high 14-59 [facility] Comment on above: Performed By: #### C BC #### [facility] [address] [address] [address] Troy Jeter Anion gap [Moles/Vol] 11.6 mmol/L Normal [facility] Comment on above: Performed By: #### C BC #### [facility] [address] [place] [address] Dr. Troy Jeter AST [Catalytic activity/Vol] 48 U/L Critically high 15-37 [facility] Comment on above: Performed By: #### C BC #### [facility] [address] [place] [address] Dr. Troy Jeter Bilirubin [Mass/Vol] 0.3 mg/dL Normal 0.2-1.0 [facility] Comment on above: Performed By: #### C BC #### [facility] [address] [place] [address] Dr. Troy Jeter Calcium [Mass/Vol] 9.3 mg/dL Normal 8.5-10.1 [facility] Comment on above: Performed By: #### C BC #### [facility] [address] [place] [address] Dr. Troy Jeter Chloride [Moles/Vol] 106 mmol/L Normal 98-107 [facility] Comment on above: Performed By: #### C BC #### [facility] [address] [address] [address] Troy Jeter CO2 [Moles/Vol] 25.4 mmol/L Normal 21.0-32.0 [facility] Comment on above: Performed By: #### C BC #### [facility] [address] [address] [address] Troy Jeter Creatinine [Mass/Vol] 1.06 mg/dL Critically high 0.55-1.02 [facility] Comment on above: Performed By: #### C BC #### [facility] [address] [address] [address] Troy Jeter EGFR-AF [place] >60 Normal >=60 [facility] Comment on above: Performed By: #### C BC #### [facility] [address] [address] [address] Troy Jeter EGFR-NON AF [place] 52 mL/min/1.73m2 Critically low >=60 [facility] Comment on above: Performed By: #### C BC #### [facility] [address] [address] [address] Troy Jeter Globulin (S) [Mass/Vol] 4.0 g/dL Normal [facility] Comment on above: Performed By: #### C BC #### [facility] [address] [address] [address] Troy Jeter Glucose [Mass/Vol] 132 mg/dL Critically high 74-106 [facility] Comment on above: Performed By: #### C BC #### [facility] [address] [address] [address] Troy Jeter Potassium [Moles/Vol] 4.0 mmol/L Normal 3.5-5.1 [facility] Comment on above: Performed By: #### C BC #### [facility] [address] [address] [address] Troy Jeter Protein [Mass/Vol] 7.4 g/dL Normal 6.4-8.2 [facility] Comment on above: Performed By: #### C BC #### [facility] [address] [place] [address] Dr. Troy Jeter Sodium [Moles/Vol] 139 mmol/L Normal 136-145 [facility] Comment on above: Performed By: #### C BC #### [facility] [address] [address] [address] Troy Jeter Urea nitrogen [Mass/Vol] 16.0 mg/dL Normal 7.0-18.0 [facility] Comment on above: Performed By: #### C BC #### [facility] [address] [place] [address] Dr. Troy Jeter Urea nitrogen/Creatinine [Mass ratio] 15.1 mg/mg Normal [facility] Comment on above: Performed By: #### C BC #### [facility] [address] [place] [address] Dr. Troy Jeter CBC AUTO DIFFon 03-02-2023 BASO # 0.1 103/ul Normal 0.0-0.1 [facility] Comment on above: Performed By: #### C YTO #### [facility] [address] [place] [address] Dr. Troy Jeter Basophils/100 WBC (Bld) 0.9 % Normal 0.2-2.0 [facility] Comment on above: Performed By: #### C YTO #### [facility] [address] [place] [address] Dr. Troy Jeter EO # 0.2 103/ul Normal 0.0-0.7 [facility] Comment on above: Performed By: #### C YTO #### [facility] [address] [place] [address] Dr. Troy Jeter Eosinophils/100 WBC (Bld) 2.9 % Normal 0.9-7.0 [facility] Comment on above: Performed By: #### C YTO #### [facility] [address] [place] [address] Dr. Troy Jeter Erythrocyte distribution width (RBC) [Ratio] 15.3 % Critically high 11.0-15.0 [facility] Comment on above: Performed By: #### C YTO #### [facility] [address] [place] [address] Dr. Troy Jeter Hematocrit (Bld) [Volume fraction] 36.8 % Normal 36.0-48.0 [facility] Comment on above: Performed By: #### C YTO #### [facility] [address] [place] [address] Dr. Troy Jeter Hemoglobin (Bld) [Mass/Vol] 11.5 g/dL Critically low 12.0-16.0 [facility] Comment on above: Performed By: #### C YTO #### [facility] [address] [place] [address] Dr. Troy Jeter IG # 0.02 10e3/ul Normal 0.00-0.03 [facility] Comment on above: Performed By: #### C YTO #### [facility] [address] [place] [address] Dr. Troy Jeter IG % 0.3 % Normal 0.0-0.5 [facility] Comment on above: Performed By: #### C YTO #### [facility] [address] [place] [address] Dr. Troy Jeter LYMPH # 1.5 103/ul Normal 1.2-3.8 [facility] Comment on above: Performed By: #### C YTO #### [facility] [address] [place] [address] Dr. Troy Jeter Lymphocytes/100 WBC (Bld) 24.8 % Normal 20.5-60.0 [facility] Comment on above: Performed By: #### C YTO #### [facility] [address] [place] [address] Dr. Troy Jeter MANUAL DIFF REQ NO Normal [facility] Comment on above: Performed By: #### C YTO #### [facility] [address] [place] [address] Dr. Troy Jeter MCH (RBC) [Entitic mass] 25.4 pg Critically low 26.7-34.[address] [facility] Comment on above: Performed By: #### C YTO #### [facility] [address] [place] [address] Dr. Troy Jeter MCHC (RBC) [Mass/Vol] 31.3 g/dL Normal 29.9-35.[address] [facility] Comment on above: Performed By: #### C YTO #### [facility] [address] [place] [address] Dr. Troy Jeter MCV (RBC) [Entitic vol] 81.4 fL Normal 81.0-99.[address] [facility] Comment on above: Performed By: #### C YTO #### [facility] [address] [place] [address] Dr. Troy Jeter MONO # 0.5 103/ul Normal 0.3-0.[address] [facility] Comment on above: Performed By: #### C YTO #### [facility] [address] [place] [address] Dr. Troy Jeter Monocytes/100 WBC (Bld) 8.4 % Normal 1.7-12.[address] [facility] Comment on above: Performed By: #### C YTO #### [facility] [address] [place] [address] Dr. Troy Jeter NEUT # 3.7 103/ul Normal 1.4-6.5 [facility] Comment on above: Performed By: #### C YTO #### [facility] [address] [place] [address] Dr. Troy Jeter Neutrophils/100 WBC (Bld) 62.7 % Normal 43.0-75.[address] [facility] Comment on above: Performed By: #### C YTO #### [facility] [address] [place] [address] Dr. Troy Jeter Platelet mean volume (Bld) [Entitic vol] 9.2 fL Critically low 9.5-13.[address] [facility] Comment on above: Performed By: #### C YTO #### [facility] [address] [place] [address] Dr. Troy Jeter PLT 193 103/ul Normal 150-[address] [facility] Comment on above: Performed By: #### C YTO #### [facility] [address] [place] [address] Dr. Troy Jeter RBC 4.52 106/ul Normal 4.20-5.[address] [facility] Comment on above: Performed By: #### C YTO #### [facility] [address] [place] [address] Dr. Troy Jeter WBC 5.9 103/ul Normal 4.0-11.0 [facility] Comment on above: Performed By: #### C YTO #### [facility] [address] [address] [address] Troy Jeter GLYCOHEMOGLOBIN A1Con 2022 ADA RECOMMENDATION SEE BELOW Normal [facility] Comment on above: Result Comment: ADA RECOMMENDED LIMIT 4.0 - 6.0 ADA THERAPEUTIC TARGET < 7.0 ACTION SUGGESTED > 7.0 Performed By: #### C BC #### [facility] [address] [address] [address] Troy Jeter Glucose [Mass/Vol] 123 mg/dL Normal [facility] Comment on above: Performed By: #### C BC #### [facility] [address] [place] [address] Dr. Troy Jeter HbA1c (Bld) [Mass fraction] 5.9 % Normal 4.5-6.2 [facility] Comment on above: Performed By: #### C BC #### [facility] [address] [place] [address] Dr. Troy Jeter LIPID PROFILEon 03-02-2023 CHOL-HDL RATIO NORM SEE BELOW Normal [facility] Comment on above: Result Comment: 3.3 - 4.4 LOW RISK 4.4 - 7.1 AVERAGE RISK 7.1 - 11.0 MODERATE RISK >11.0 HIGH RISK Performed By: #### C YTO #### [facility] [address] [place] [address] Dr. Troy Jeter Cholesterol [Mass/Vol] 156 mg/dL Normal <=200 [facility] Comment on above: Performed By: #### C YTO #### [facility] [address] [address] [address] Troy Jeter Cholesterol in HDL [Mass/Vol] 64 mg/dL Critically high 40-60 [facility] Comment on above: Performed By: #### C YTO #### [facility] [address] [place] [address] Dr. Troy Jeter Cholesterol in LDL [Mass/Vol] 76.4 mg/dL Normal [facility] Comment on above: Performed By: #### C YTO #### [facility] [address] [address] [address] Troy Jeter Cholesterol.total/Ch olesterol in HDL [Mass ratio] 2.4 {ratio} Normal [facility] Comment on above: Performed By: #### C YTO #### [facility] [address] [address] [address] Troy Jeter HDL NORMAL > or = 60 mg/dl - LO W CARDIOVASCULAR RISK <40 mg/dl - HIGH CARDIOVASCULAR RISK Normal [facility] Comment on above: Performed By: #### C YTO #### [facility] [address] [place] [address] Dr. Troy Jeter LDL CALC NORMAL SEE BELOW Normal [facility] Comment on above: Result Comment: <100 mg/dl OPTIMAL 100 - 129 mg/dl NEAR OR ABOVE OPTIMAL 130 - 159 mg/dl BORDERLINE HIGH 160 - 189 mg/dl HIGH >190 mg/dl VERY HIGH Performed By: #### C YTO #### [facility] [address] [place] [address] Dr. Troy Jeter Triglyceride [Mass/Vol] 78 mg/dL Normal <=150 [facility] Comment on above: Performed By: #### C YTO #### [facility] [address] [place] [address] Dr. Troy Jeter VLDL CALC 15.6 mg/dL Normal [facility] Comment on above: Performed By: #### C YTO #### [facility] [address] [place] [address] Dr. Troy Jeter PROF 14(COMP METB)on 023 Albumin [Mass/Vol] 3.2 g/dL Critically low 3.4-5.0 [facility] Comment on above: Performed By: #### C YTO #### [facility] [address] [place] [address] Dr. Troy Jeter Albumin/Globulin [Mass ratio] 0.8 {ratio} Normal [facility] Comment on above: Performed By: #### C YTO #### [facility] [address] [place] [address] Dr. Troy Jeter ALP [Catalytic activity/Vol] 90 U/L Normal 46-116 [facility] Comment on above: Performed By: #### C YTO #### [facility] [address] [place] [address] Dr. Troy Jeter ALT [Catalytic activity/Vol] 58 U/L Normal 14-59 [facility] Comment on above: Performed By: #### C YTO #### [facility] [address] [place] [address] Dr. Troy Jeter Anion gap [Moles/Vol] 10.5 mmol/L Normal [facility] Comment on above: Performed By: #### C YTO #### [facility] [address] [place] [address] Dr. Troy Jeter AST [Catalytic activity/Vol] 40 U/L Critically high 15-37 [facility] Comment on above: Performed By: #### C YTO #### [facility] [address] [place] [address] Dr. Troy Jeter Bilirubin [Mass/Vol] 0.3 mg/dL Normal 0.2-1.0 [facility] Comment on above: Performed By: #### C YTO #### [facility] [address] [place] [address] Dr. Troy Jeter Calcium [Mass/Vol] 9.1 mg/dL Normal 8.5-10.1 [facility] Comment on above: Performed By: #### C YTO #### [facility] [address] [place] [address] Dr. Troy Jeter Chloride [Moles/Vol] 106 mmol/L Normal 98-[address] [facility] Comment on above: Performed By: #### C YTO #### [facility] [address] [place] [address] Dr. Troy Jeter CO2 [Moles/Vol] 27.6 mmol/L Normal 21.0-32.0 [facility] Comment on above: Performed By: #### C YTO #### [facility] [address] [place] [address] Dr. Troy Jeter Creatinine [Mass/Vol] 1.01 mg/dL Normal 0.55-1.02 [facility] Comment on above: Performed By: #### C YTO #### [facility] [address] [address] [address] Troy Jeter EGFR-AF [place]OU[place]ORE[place] >60 Normal >=60 [facility] Comment on above: Performed By: #### C YTO #### [facility] [address] [address] [address] Troy Jeter EGFR-NON AF [place] 55 mL/min/1.73m2 Critically low >=60 [facility] Comment on above: Performed By: #### C YTO #### [facility] [address] [place] [address] Dr. Troy Jeter Globulin (S) [Mass/Vol] 3.9 g/dL Normal [facility] Comment on above: Performed By: #### C YTO #### [facility] [address] [place] [address] Dr. Troy Jeter Glucose [Mass/Vol] 112 mg/dL Critically high 74-106 [facility] Comment on above: Performed By: #### C YTO #### [facility] [address] [place] [address] Dr. Troy Jeter Potassium [Moles/Vol] 4.1 mmol/L Normal 3.5-5.1 [facility] Comment on above: Performed By: #### C YTO #### [facility] [address] [place] [address] Dr. Troy Jeter Protein [Mass/Vol] 7.1 g/dL Normal 6.4-8.2 [facility] Comment on above: Performed By: #### C YTO #### [facility] [address] [place] [address] Dr. Troy Jeter Sodium [Moles/Vol] 140 mmol/L Normal 136-145 [facility] Comment on above: Performed By: #### C YTO #### [facility] [address] [place] [address] Dr. Troy Jeter Urea nitrogen [Mass/Vol] 14.0 mg/dL Normal 7.0-18.0 [facility] Comment on above: Performed By: #### C YTO #### [facility] [address] [address] [address] Troy Jeter Urea nitrogen/Creatinine [Mass ratio] 13.9 mg/mg Normal [facility] Comment on above: Performed By: #### C YTO #### [facility] [address] [address] [address] Troy Jeter TSHon 03-02-2023 TSH 3.047 uIU/mL Normal 0.358-3.740 [facility] Comment on above: Performed By: #### C YTO #### [facility] [address] [address] [address] Troy Jetre Orders Onlyon 02-28-2023 Orders Only [id number] Wali Bejarano 1960 F Date Provider Department Center 02/28/2023 [id number], HISTORICAL [facility] No family history on file Normal [facility] HPon 02-22-2023 HP PATIENT: Daniella Bejarano DATE OF : 1960 DATE OF VISIT: 03/06/23 [facility]&P LISA ZELAYA M.D., F.A.C.S. Chief Complaint BCG unresponsive CIS HPI Ms. Daniella Bejarano is a 62 y.o. female with history of HTN, left breast cancer s/p radical mastectomy (BHANU) arthritis, GERD, remote DVT treated with Xarelto currently on none, morbid obesity, BMI 42.91 kg/m???, sleep apnea, high-grade urothelial carcinoma of the bladder who presents to discuss management for BCG unresponsive disease. Ms. Bejarano developed recurrent UTI in 06/2021 and had a cystoscopy 07/14/2021 revealed a bladder lesion. Subsequently, Ms. Bejarano Had the following procedures by her local urologist Dina Cobb MD - 07/23/2021: underwent TURBT revealed high-grade invasive papillary urothelial carcinoma, pT1 muscle not in specimen for evaluation. -08/25/2021: ReTURBT negative for disease, muscle present and uninvolved. - 09/22/2021: started intravesical BCG induction course #1 weekly x6 completed 10/27/2021. - 12/23/2021: underwent TURBT postoperative gemcitabine for recurrent bladder tumor. 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 - 01/26/2022: started BCG induction course #2 weekly x6 completed 03/02/2022. - 04/2022: surveillance cystoscopy revealed calcified regrowth on left lateral wall. - 05/12/2022: underwent TURBT, pathology revealed no evidence of urothelial carcinoma recurrence. - 06/22/2022: continued on BCG maintenance, completed BCG maintenance #1 weekly x3 on 07/06/2022. - 06/2022: CT urogram: Reported to be negative - 10/12/2022: completed BCG maintenance #2 weekly x3 on 10/26/2022. - 12/07/2022: a 3-month surveillance cystoscopy revealed a 2 mm minimally hyperemic submucosal area on left posterior wall, described not velvety erythematous or raised. Urethra without lesion. However, cytology showed atypical cells suspicious for high-grade urothelial carcinoma. - 12/28/2022: underwent cystoscopy with narrowband imaging, TURBT with bilateral upper tract washing, bilateral retrograde pyelograms. Findings: Irregularity on left lateral wall which was obtained given prior resection, cold cup biopsy was obtained from left lateral wall, dome, right lateral wall, and posterior wall targeting potentially in the irregular site. No discrete tumors or lesion. Pathology revealed in the right posterior bladder wall, dysplasia bordering carcinoma in situ. Right and left ureteral cytology washing revealed hypocellular specimen insufficient for diagnosis bilaterally. Therefore she was referred to me for further management. At this visit, Ms. Bejarano presents for consultation accompanied by her daughter. She denies gross hematuria, irritative bladder symptoms, however she does have urinary frequency, nocturia x2, sometimes urgency, given mixed urinary incontinence/OAB. No flank pain or weight loss. I had a long discussion with and her family member regarding her clinical presentation, symptoms, exam finding. I reviewed and discussed outside records including consultants notes, operative notes, pathology result. I made my recommendation and assessment and plan. Oncology History No history exists. Past Medical History She has a past medical history of Arthritis, Bladder cancer (CMS/HCC), Breast cancer (CMS/HCC) (2018), GERD (gastroesophageal reflux disease), History of DVT (deep vein thrombosis) (2018), HTN (hypertension), PONV (postoperative nausea and vomiting), and Sleep apnea. Past Surgical History She has a past surgical history that includes Knee Arthroplasty (Right); Cholecystectomy; Mastectomy, radical (Right, 2017); Knee Arthroplasty (Left); Total abdominal hysterectomy w/ bilateral salpingoophorectomy (1989); Transurethral resection of bladder tumor; Tonsillectomy; Cystoscopy; and Bladder surgery. Medications She has a current medication list which includes the following prescription(s): aspirin, ergocalciferol, olmesartan, omeprazole, oxybutynin xl, pantoprazole, albuterol, calcium carb-vitamin d3-vit k2, diclofenac, furosemide, nabumetone, potassium chloride, rivaroxaban, and solifenacin. Current Outpatient Medications: aspirin 81 mg EC tablet, Take 81 mg by mouth in the morning., Disp: , Rfl: ergocalciferol (Vitamin D-2) 1.25 MG (35170 Units) capsule, Take by mouth., Disp: , Rfl: olmesartan (BENIcar) 20 mg tablet, Take 20 mg by mouth in the morning., Disp: , Rfl: omeprazole (PriLOSEC) [address] capsule, Take 40 mg by mouth in the morning and 40 mg in the evening., Disp: , Rfl: oxybutynin XL (Ditropan-XL) 10 mg 24 hr tablet, Take 10 mg by mouth in the morning., Disp: , Rfl: pantoprazole (ProtoNix) 40 mg EC tablet, 1 (one) time each day at the same time., Disp: , Rfl: albuterol 90 mcg/actuation inhaler, INHALE 1-2 PUFFS BY MOUTH EVERY 4 HOURS NEEDED, Disp: , Rfl: calcium carb-vitam (more content not included)... Normal [facility] NON-RESIDENTIAL TECH CYTOLOGY - CELLULAR EXAMon 02-22-2023 LAB AP CASE REPORT Normal [facility] Comment on above: Result Comment: Non- gynecologic Cytology Case: [id number] Authorizing Provider: Lisa Zelaya MD Collected: 02/22/2023 1206 Ordering Location: [facility] Received: 02/22/2023 1206 Urology Pathologist: Yossi Sterling MD Specimen: Urine, Voided Performed By: #### L [id number] #### [facility] ([facility]) [address] [place] [address] LAB AP CLINICAL INFORMATION Order Diagnoses [facility] Comment on above: Result Comment: C67. 4 - Malignant neoplasm of posterior wall of urinary bladder (CMS/HCC) [ICD-10-CM] Performed By: #### L [id number] #### [facility] ([facility]) [address] [place] [address] LAB AP GROSS DESCRIPTION [facility] Comment on above: Result Comment: 12 m L yellow, cloudy fluid Performed By: #### L [id number] #### [facility] ([facility]) [address] [place] [address] LAB AP REPORT FINAL DIAGNOSIS NARRATIVE [facility] Comment on above: Result Comment: A. U rine, Voided: - Negative for high grade urothelial carcinoma. Performed By: #### L [id number] #### [facility] ([facility]) [address] [place] [address] Office Visiton 02-22-2023 Follow-up visit [id number] Wali Bejarano 1960 Date Provider Department Center 02/22/2023 LISA JOY [facility] No family history on file Level of Service:70937 ID OFFICE/OUTPATIENT NEW HIGH MDM 60-74 MINUTES Reason for Visit and Comments: New Patient [632] - Bladder ca Normal [facility] Orders Onlyon 02-22-2023 Orders Only [id number] Wali Bejarano 1960 Date Provider Department Center 02/22/2023 [id number] DEMPSEY [facility] No family history on file [facility] URINALYSIS WITH MICROSCOPICo n 02-22-2023 BILIRUBIN, TOTAL PRESENCE IN URINE Negative Normal Negative [facility] Comment on above: Performed By: #### L [id number] ####[facility] ([facility])[address] [place] [address] Clarity (U) Clear Normal Clear [facility] Comment on above: Performed By: #### L [id number] ####[facility] ([facility])[address] [place] [address] Color (U) Yellow Normal Yellow [facility] Comment on above: Performed By: #### L [id number] ####[facility] ([facility])[address] [place] [address] Glucose (U) [Mass/Vol] Negative Normal Negative [facility] Comment on above: Performed By: #### L [id number] ####[facility] ([facility])[address] [place] [address] HEMOGLOBIN PRESENCE IN URINE Negative Normal Negative [facility] Comment on above: Performed By: #### L [id number] ####[facility] ([facility])[address] [place] [address] Ketones Ql (U) Negative Normal Negative [facility] Comment on above: Performed By: #### L [id number] ####[facility] ([facility])[address] [place] [address] LEUKOCYTE ESTERASE PRESENCE IN URINE BY TEST STRIP Trace Abnormal Negative [facility] Comment on above: Performed By: #### L [id number] ####[facility] ([facility])[address] [place] [address] MUCUS (#/HPF) IN URINE SEDIMENT Occasional Normal None Seen, Occasional, Few [facility] Comment on above: Performed By: #### L [id number] ####[facility] ([facility])[address] [place] [address] NITRITE PRESENCE IN URINE Negative Normal Negative [facility] Comment on above: Performed By: #### L [id number] ####[facility] ([facility])[address] [place] [address] pH (U) 5.0 [pH] Normal 5.0-8.0 [facility] Comment on above: Performed By: #### L [id number] ####[facility] ([facility])[address] [place] [address] Protein (U) [Mass/Vol] Negative Normal Negative [facility] Comment on above: Performed By: #### L [id number] ####[facility] ([facility])[address] [place] [address] RBC (#/HPF) IN URINE SEDIMENT None Seen Normal None Seen [facility] Comment on above: Performed By: #### L [id number] ####[facility] ([facility])[address] [place] [address] Specific gravity (U) [Rel density] 1.011 Low 1.015-1.020 [facility] Comment on above: Performed By: #### L [id number] ####[facility] ([facility])[address] [place] [address] SQUAMOUS EPITHELIAL CELLS (#/HPF) IN URINE SEDIMENT Many Abnormal None Seen, Occasional [facility] Comment on above: Performed By: #### L [id number] ####[facility] ([facility])[address] [place] [address] WBC (LEUKOCYTE) (#/HPF) IN URINE SEDIMENT 3-5 Abnormal None Seen [facility] Comment on above: Performed By: #### L [id number] ####[facility] ([facility])[address] [place] [address] URINE CULTURE, ROUTINEon Bacteria identified Cx Nom (U) No growth at 18-24 hours Normal [facility] Comment on above: Performed By: #### L [id number] ####[facility] ([facility])[address] [place] [address] Orders Onlyon 01-17-2023 Orders Only [id number] Wali Bejarano 1960 F Date Provider Department Center 01/17/2023 [id number], HISTORICAL [facility] No family history on file Normal [facility] Retail - Clinical Noteon Retail - Clinical Note [id number] D:127 Normal [facility] Ambulatory Visit Summaryon 0 01-04-2023 Ambulatory Visit Summary DANIELLA BEJARANO :1960 Visit Date:01/04/2023 Ambulatory Visit Instructions Your Diagnosis Bladder cancer OAB (overactive bladder) History of UTI Vaginal atrophy Your Care Team Attending Physician - Reza JAMES, Dina Oconnell Primary Care Physician - BAYRON SINGH MD This Is Your Medications List estradiol topical (Estrace 0.1 mg/g Cream) mirabegron (Myrbetriq 50 mg oral tablet, extended release) solifenacin (Vesicare 10 mg Tab) Contact prescribing physician if questions or concerns aspirin (aspirin 81 mg Oral EC Tab) ergocalciferol (Vitamin D) furosemide (Lasix 20 mg Tab) letrozole (letrozole 2.5 mg Tab) olmesartan (Benicar 40 mg Tab) oxaprozin (oxaprozin 600 mg Tab) pantoprazole (Protonix 40 mg Tab-DR) Procedures Performed Cystoscopy (12/07/2022), Cystoscopy and transurethral resection of bladder tumor (12/22/2021), TURBT - Transurethral resection of bladder tumor (07/26/2021), Cystoscope (07/14/2021), Bilateral prosthetic arthroplasty of knees, Breast surgery, Cholecystectomy, History of hysterectomy., Ts - Tonsillectomy. Discharge Vitals Heart Rate (Peripheral) 71 Blood Pressure 124/82 Height 163 cm Height 64 in Weight 115 kg Weight 253 lb BMI 43.28 What to do next Scheduled Follow-Up Appointments Monday. 2022 12:30 PM EDT With: Jeff Booth DO Where: [facility] You Need to Schedule the Following Appointments Follow Up with Reza JAMES, Dina Oconnell, URL, URO When: Where: Medications What How Much When Instructions Unchanged estradiol topical (Estrace 0.1 mg/ g Cream) See instructions Apply a pea size amount around the urethra and vagina, 3x a wk for 4 wks, then 2x a week afterwards. Unchanged mirabegron (Myrbetriq 50 mg oral tablet, extended release) 1 Tablets By Mouth Every day Unchanged solifenacin (Vesicare 10 mg Tab) 1 Tablets By Mouth Every day Unchanged aspirin (aspirin 81 mg Oral EC Tab) By Mouth Every day Contact prescribing physician if questions or concerns Unchanged ergocalciferol (Vitamin D) By Mouth Every week Contact prescribing physician if questions or concerns Unchanged furosemide (Lasix 20 mg Tab) By Mouth Every day Contact prescribing physician if questions or concerns Unchanged letrozole (letrozole 2.5 mg Tab) By Mouth Every day Contact prescribing physician if questions or concerns Unchanged olmesartan (Benicar 40 mg Tab) By Mouth Every day Contact prescribing physician if questions or concerns Unchanged oxaprozin (oxaprozin 600 mg Tab) By Mouth Every day Contact prescribing physician if questions or concerns Unchanged pantoprazole (Protonix 40 mg Tab-DR) By Mouth 2 times a day Contact prescribing physician if questions or concerns Allergies Percocet (Headache) Problems Ongoing - Any problem that you are currently receiving treatment for. Abnormal urinary stream Bladder cancer BMI 40.0-44.9, adult Enterococcus faecalis infection Former smoker History of UTI Mixed incontinence OAB (overactive bladder) Urinary tract infection Urothelial carcinoma of bladder Vaginal atrophy [employer] Bladder Cancer Bladder cancer is an abnormal growth of tissue in the bladder. The bladder is the balloon-like sac in the pelvis. It collects and stores urine that comes from the kidneys through the ureters. The bladder wall is made of layers. If cancer spreads into these layers and through the wall of the bladder, it becomes more difficult to treat. What are the causes? The cause of this condition is not known. What increases the risk? The following factors may make you more likely to develop this condition: ? Smoking. ? Workplace risks (occupational exposures), such as rubber, leather, textile, dyes, chemicals, and paint. ? Being white. ? Your age. Most people with bladder cancer are over the age of 55. ? Being male. ? Having chronic bladder inflammation. ? Having a personal history of bladder cancer. ? Having a family history of bladder cancer (heredity). ? Having had chemotherapy or radiation therapy to the pelvis. ? Having been exposed to arsenic. What are the signs or symptoms? Initial symptoms of this condition include: ? Blood in the urine. ? Painful urination. ? Frequent bladder or urine infections. ? Increase in urgency and frequency of urination. Advanced symptoms of this condition include: ? Not being able to urinate. ? Low back pain on one side. ? Loss of appetite. ? Weight loss. ? Fatigue. ? Swelling in the feet. ? Bone pain. How is this diagnosed? This condition is diagnosed based on your medical history, a physical exam, urine tests, lab tests, imaging tests, and your symptoms. You may also have other tests or procedures done, such as: ? A narrow tube being inserted into your bladder through your urethra (cystoscopy) in order to view the lining of your bladder f (more content not included)... Normal [facility] Patient Educationon 01-05-20 Patient Education Oncology Bladder Cancer Bladder cancer is an abnormal growth of tissue in the bladder. The bladder is the balloon-like sac in the pelvis. It collects and stores urine that comes from the kidneys through the ureters. The bladder wall is made of layers. If cancer spreads into these layers and through the wall of the bladder, it becomes more difficult to treat. What are the causes? The cause of this condition is not known. What increases the risk? The following factors may make you more likely to develop this condition: ? Smoking. ? Workplace risks (occupational exposures), such as rubber, leather, textile, dyes, chemicals, and paint. ? Being white. ? Your age. Most people with bladder cancer are over the age of 55. ? Being male. ? Having chronic bladder inflammation. ? Having a personal history of bladder cancer. ? Having a family history of bladder cancer (heredity). ? Having had chemotherapy or radiation therapy to the pelvis. ? Having been exposed to arsenic. What are the signs or symptoms? Initial symptoms of this condition include: ? Blood in the urine. ? Painful urination. ? Frequent bladder or urine infections. ? Increase in urgency and frequency of urination. Advanced symptoms of this condition include: ? Not being able to urinate. ? Low back pain on one side. ? Loss of appetite. ? Weight loss. ? Fatigue. ? Swelling in the feet. ? Bone pain. How is this diagnosed? This condition is diagnosed based on your medical history, a physical exam, urine tests, lab tests, imaging tests, and your symptoms. You may also have other tests or procedures done, such as: ? A narrow tube being inserted into your bladder through your urethra (cystoscopy) in order to view the lining of your bladder for tumors. ? A biopsy to sample the tumor to see if cancer is present. If cancer is present, it will then be staged to determine its severity and extent. Staging is an assessment of: ? The size of the tumor. ? Whether the cancer has spread. ? Where the cancer has spread. It is important to know how deeply into the bladder wall cancer has grown and whether cancer has spread to any other parts of your body. Staging may require blood tests or imaging tests, such as a CT scan, MRI, bone scan, or chest X-ray. How is this treated? Based on the stage of cancer, one treatment or a combination of treatments may be recommended. The most common forms of treatment are: ? Surgery to remove the cancer. Procedures that may be done include transurethral resection and cystectomy. ? Radiation therapy. This is high-energy X-rays or other particles. This is often used in combination with chemotherapy. ? Chemotherapy. During this treatment, medicines are used to kill cancer cells. ? Immunotherapy. This uses medicines to help your own immune system destroy cancer cells. Follow these instructions at home: ? Take nxoc-uhu-wisqzoo and prescription medicines only as told by your health care provider. ? Maintain a healthy diet. Some of your treatments might affect your appetite. ? Consider joining a support group. This may help you learn to cope with the stress of having bladder cancer. ? Tell your cancer care team if you develop side effects. They may be able to recommend ways to relieve them. ? Keep all follow-up visits as told by your health care provider. This is important. Where to find more information ? [employer]: www.cancer.org ? [employer] [place] (NCI): www.cancer.gov Contact a health care provider if: ? You have symptoms of a urinary tract infection. These include: ? Fever. ? Chills. ? Weakness. ? Muscle aches. ? Abdominal pain. ? Frequent and intense urge to urinate. ? Burning feeling in the bladder or urethra during urination. Get help right away if: ? There is blood in your urine. ? You cannot urinate. ? You have severe pain or other symptoms that do not go away. Summary ? Bladder cancer is an abnormal growth of tissue in the bladder. ? This condition is diagnosed based on your medical history, a physical exam, urine tests, lab tests, imaging tests, and your symptoms. ? Based on the stage of cancer, surgery, chemotherapy, or a combination of treatments may be recommended. ? Consider joining a support group. This may help you learn to cope with the stress of having bladder cancer. This information is not intended to replace advice given to you by your health care provider. Make sure you discuss any questions you have with your health care provider. Document Released: 10/18/2004 Document Revised: 09/28/2018 Document Reviewed: 09/19/2017 [employer] Patient Education ? 2019 [employer]. Normal [facility] Urology Office/Clinic Noteon 01-04-2023 Urology Office/Clinic Note Chief Complaint Pt is here for PO TURBT HPI Staff Daniella is a 62 y.o. female here for PO TURBT. Previous Dx: abnormal urinary stream, bladder cancer, history of UTI, mixed incontinence, OAB, urothelial carcinoma of the bladder, vaginal atrophy. S/P TURBT done 12/28/22, cystoscopy done on 12/07/22. Last BCG (3 series) finished on 10/26/23. Pathology done on 12/28/22 showed dysplasia, bordering carcinoma in situ. Cytology done on 12/27/22 showed atypical urothelial cells present, suspicious for high grade urothelial carcinoma. Dysuria: denies Incomplete bladder emptying: denies Hematuria: denies Frequency: yes Urgency: sometimes Nocturia: 2x a night Stream: steady stream Leaking: denies Post void dripping: denies Wearing pads/ Depends: denies Urge incontinence: denies Stress incontinence: denies Incontinence without Sensory Awareness: denies Abdominal pain: denies Flank pain: denies Sexual complaints: _ History of Present Illness Tests reviewed: reviewed path report. I have reviewed the previous health record information and history for this patient from Dr. Cobb. I have reviewed and verified the staff HPI to be accurate for this encounter. There have been no associated fever, chills, flank pain, or blood in the urine. Denies any urinary infections since last encounter. Review of Systems PHQ Score Initial Depression Screen Score: 0 ROS - Provider Constitutional: denies weight loss, denies hot flashes. Eyes: denies eye problems. Gastrointestinal: denies nausea, denies vomiting. Cardiovascular: denies chest pain or angina. Integumentary: no dryness Musculoskeletal: denies musculoskeletal symptoms. ENMT: denies otolaryngeal symptoms. Respiratory: no shortness of breath. Heme/Lymph: denies easy bleeding tendency, denies easy bruising tendency. Psychiatric: no confusion, no anxiety. Genitourinary: See HPI. Physical Exam Vitals & Measurements HR: 71(Peripheral) BP: 124/82 HT: 64 in HT: 163 cm WT: 115 kg WT: 253 lb BMI: 43.28 General Appearance: alert , no acute distress, well nourished, well developed female. Genitourinary: bladder nonpalpable, no flank pain. 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 1. Bladder cancer (C67.8: Malignant neoplasm of overlapping sites of bladder) 06/2021 CTU: left posterior filling defect in bladder, no upper tract filling defects, no LAD. CXR neg. High-grade T1 papillary urothelial carcinoma S/P TURBT 07/26/21, re-TURBT 08/25/21 negative for disease, muscle present and involved s/p induction BCG 10/27/2021 HG Ta recurrence 12/22/21 s/p TURBT, post resection intravesical gemcitabine 2nd induction of BCG completed 03/02/22 3-month surveillance cystoscopy with atypical appearing 5 mm bladder mass s/p TURBT 05/11/22 -pathology negative, calcification and inflammation noted. Muscle present and uninvolved 6 month surveillance cysto and urine cytology 08/10/22 - neg CTU 06/2022 neg Surveillance cysto 12/27/22 - no tumors, Cytology shows atypical urothelial cells present, suspicious for high grade urothelial carcinoma. Undergoing maintenance BCG x 3 yrs for high risk -1st 3m maintenance BCG completed 07/06/22 -2nd 6m BCG completed 10/26/22 Follow up today: S/p Cysto, random bladder bx with fulguration, TURBT (< 2 cm), bilat. ureteral washings and retrograde pyelograms 12/28/22. Path report - right & left ureteral washings are both hypocellular specimens, insufficiency for diagnosis. Right posterior bladder wall minute focus of marked urothelial atypia, at least urothelial dysplasia, bordering carcinoma in situ. Left lateral bladder wall shows fragments of thick muscle bundles and adipo-muscular tissue with patchy chronic inflammation. Bladder dome shows urothelial mucosal with no significant pathological findings. Right lateral bladder wall urothelial mucosal with no significant pathological findings. Discussed unclear yet suspected bladder cancer recurrence of CIS. Considered BCG unresponsive if truly CIS. Given lack of mucosal abnormalities with NBI on cysto, recommend referral to tertiary center for [facility] Blue light cystoscopy for more complete resection since not available here. Discussed mgmt options if confirmed including radical cystectomy, intravesical chemotherapy, pembrolizumab. Risks/benefits of each discussed including risk of progression. -Pt prefers pearl, will see if Blue Light Cystoscopy available at [facility] for TURBT to further evaluate and resect possible CIS. -Our office w/ consult with Dr. Booth regarding treatment in setting of suspected malignancy. 2. OAB (overactive bladder) (N32.81: Overactive bladder) Continues taking VESIcare 10mg daily. Improvement but still with sx Patient has new insurance and will attempt to get Myrbetriq covered. Has dianne (more content not included)... Normal [facility] Comment on above: Result Comment: Elec tronically Signed By: Dina Cobb MD\.br\Date and Time Signed: 01/04/23 12:20 EST\.br\Electronically Co-Signed By: Pratibha Rodriguez\.br\Date and Time Co-Signed: 01/04/23 09:08 EST\.br\Electronically Co-Signed By: Pratibha Rodriguez\.br\Date and Time Co-Signed: 01/04/23 09:18 EST Lab Reportson 01-03-2023 Lab Reports [id number]#1.00C D:127 Normal [facility] Pathology Noteon 01-03-2023 Pathology Note [id number]#1.00CD :127 Normal [facility] Pathology Note [id number]#1.00C D:127 Normal [facility] Operative Reporton Operative Report [id number]#1.00C D:127 Normal [facility] Formson 12-29-2022 Forms [id number]#1.00C D:127 Normal [facility] CYTOLOGYon 12-28-2022 SENT TO REF LAB 12/28/2022 [facility] Comment on above: Performed By: #### C YTO #### [facility] [address] [place] [address] Dr. Troy Jeter SENT TO REF LAB 12/28/2022 [facility] Comment on above: Performed By: #### C YTO #### [facility] [address] [place] [address] Dr. Troy Jeter Pre-Certification Formon Pre-Certification Form [id number]#1.0 0CD:127 Normal [facility] PROTIMEon 12-21-2022 INR Coag (PPP) [Relative time] 1.00 {INR} Normal [facility] Comment on above: Performed By: #### C YTO #### [facility] [address] [place] [address] Dr. Troy Jeter INR GUIDELINES SEE BELOW Normal [facility] Comment on above: Result Comment: LORENA RED INR: 2.0 - 3.0 CONDITIONS NOT LISTED BELOW 2.5 - 3.5 FOR PROSTHETIC HEART VALVE REPLACEMENT 2.5 - 3.5 RECURRENT THROMBOSIS Performed By: #### C YTO #### [facility] [address] [place] [address] Dr. Troy Jeter PT Coag (PPP) [Time] 10.6 s Normal 9.0-11.6 [facility] Comment on above: Performed By: #### C YTO #### [facility] [address] [place] [address] Dr. Troy Jeter PTTon 12-21-2022 aPTT Coag (Bld) [Time] 26.9 s Normal 22.3-36.[address] [facility] Comment on above: Performed By: #### C YTO #### [facility] [address] [place] [address] Dr. Troy Jeter Coding Summary.on 12-17-2022 Coding Summary. CD:[id number] Gh0 bWw+PGhlYWQ+MP2GIAZrC88 omCZxyD6IM7jVQA1UJLDJMI QKBI6VXQ7gySC0YHjsN5Hse iAv FxjvzZZxSZ93NBb9BZL4fNd tARbpsO6wsKNwJ1d9AhMoJZ 53fY76VRowDEYqHtG6DvYli jsgbWFy E4ihVxZeqQIpSzn+PHRhYmx lIHdpZHRoPScxMDAlJyBzdH kbFX0jAu9sCNGkYXHpoWrez HNlOiBj a3wwRQSiDEmtYI7dpQhvW7J qlFM7ZCNnr1i3Qd97hWL+PH OiWLF6qJcuIIiox255TdZht 6erLAW2 rLMmDEdnRSW3C20bw9D4YVI mIDWkAJR5lAJ1yF5kiQshkr cyY1PvgIJyXhF1MSF3lXAfw X3vjAcn khnyrY8fTcl+A65XHZ2NVXB JEW0DIzo5G1QoEazskNS+PC 65OOUuLC01yPHklMUhf2okn Ch8DsJk MOTqCSI7wDveGPrgk1InEAU zN49qtRQjm1F3PYYxlKyjiP WtAkGqrSU7pO8zPYwakcvqd 2hvdzsn Tdwsr5liqg14rK74Z41hXKd yQTZfLTF1JHGhCZNzxWncvv 1lsC5vIz5+FPjfo0dgg0gtk Oo4GnZj VJIbspBfvStcSXQ3o8BhHu3 2M2KveJgab2NzCcg1ix58dU Adr7F4hLL0PKxzKWUjgV3sC WxlZnQ6 KQMeVuHytS02bVOeCXfhGg3 wfJxisEolPE3uDMEyiovdGI DgbD1rBXVwsXYwcCpwYB2qL TBpbjtm g857AgNzZGG6SKZqnVTkB9G edJ1aSaSfBMXgTWPdV2YzmK CeJRtvX045ZWygPyN3LQBjh lNvF2Un NPPmgSckIaQ1x6B7Wa2Vq7V lwoycQJK1APetGGYzEyZ4Ii PfRsT5I0EqKpe8HKVybJvvP V1mY9Sj TZKrpydenouiwIT0QJDtMEE pcZ31pPUwQQfaLl9al4T7b8 27LBSlVDIfhP60Ze5zkHggA TBwdCBU lL8zfacox0qjplenNgGkWCM gYKx9YQb7GRVkjAvgExYmLF X8SnL9IPH4yOHbiW5bgFgtc jjucA4c Oyc+B59sjP7gLDV0YYY7rps wBQMkxeWsBZ80WL80F1DmDs wvdGFibGU+PGRpdiBzdHlsZ L6pJvRc b1hjt7WzUZjmN2NhHLXlANu zZeh4BNSjRYA2qBK6zR4xKB IcGFdmb2C1aWC6P2NtvoImv r2br1ki REQkUZgcA38kbQNxo4G4PPN fePZ7WJSyvSevCdOpjY32Iv c+EIPurBnxw2AaBrhim9vho 1hmuOo2 WgOzTVLgifQsbPlnAKO7k3U yAz88F88sXFaxPLYeVTSvND JuBTJqoLzwfo0lcJ8fEd4+P GNvbCB3 cRG0yD0dMYEnLyN1YHtlB41 8WyEvrIUwKxmvu1uzm6pzzD y8RsIhQKLfgpAoiWtuUYS4d 7XiSe20 M10lUTpgQUBaFYWkOUHpHAD ivOynxl6prO2eUi4+PC9jb2 amnb65uF16yEP+IBCqJTI8r WxlPSdw OUQomB8uCCkcHoK4LBMoFsA voE06uLHxXNurRp0plXxymJ sgJR6oAIFarvkvg408UyDkt 2xkIDEw bYKyYRlaPZK6C98va9S5DCZ cULNxEQF8lUA1gH6vzDhxnl ogbGVmdDsgdmVydGljYWwtY MnlR381 IHRvcDsnPlBhdGllbnQgTmF qHVz8L2MmGop1TEKsdHpsPE 8bjEZsCOnhDa1lbVcxhYspQ N5qCXSs wnmql267SeWdo7liRYDogUQ vCZchNRA1S70ca4F8HYUhBJ MsTAK9lGM9zO6ljUiuyelem GVmdDsg qoXydBtpALmdVLheN776OHZ zkEdjWjUszlXpZMSopSE7ZG 47CG31aJVwm4U8pZD3B7CtT GRpbmct jkboqAX0QPAjRJSmsE20Dz5 bdJleOo9ePOIzHOT0DMNwtV FwO3KcrC8cAhEiUHUbSNKcB 3RleHQt BVcoH164GXpxVnQ5ACKbhtU oH7LrKYZpkZdqRaL9a4U0Ix 1NS4P0XE51GV36eKTxc0Y1r AD8H7Db NKIekcrkdbqmbDZ6NYQaRSF qbX61Pj0nzBqcSp8bMXReXN K5GUWygHMpE7GgnI9wGxSyG DAwMDAw I0RvdGVyUAwyJ404ZCxxZnS 3ZRQutaHpB5FpAWZtgIapTq G0g4D4Ze5FYZr7HB69SP63n AXgy4O6 fUG6S1WmZVEcskbsmgvzfRO 5FVQlJDNwnI47Xu1myTyeAi 3oBXEaETK1YYTeiMIqH5Gcs N3uFaEp LZAgIMUwG2JbiPItATshZ83 4EArhXpY0BURdslAiX7RrIZ DztPlzJeK1v3J0Jt9OIWJjI F92JDM3 yXK1CA47XK96S8ZeKzagjAP ibGU+PHRhYmxlIHdpZHRoPS xrBOJoWhAwgNltVS0rEc9wL GVyLWNv fElgqJUwXgMwr3dzPRBbOVn oWT2lkTejO9MhgJQ1LHKrh1 i4Ei24W42jU7YxpZX+PGNvb ZI0eFG1 dR0sBqSpAfK0PQnhK332MwI kxMCgXditp8cng6qapNr2Wl C4QMUcgwMseXwsMHL2i2BbH y84L39b IHdpZHRoPSIxNSUiIHZhbGl ifv3xzD1qKg5+IWDhoCM3yI Q7uY7bSzPsOcB4WNooA716H nRvcCIv Zjfct0ycp2zigAx5IuYmGSO htuXypDirVGP4o7TzUg07H6 RoyHhus2NwJuc3if50xDFjh 3G9xFP4 X8VoNSVarlvreHVwxAbaTC0 hOMCtwkcmEGJvbQ2sIYHtD5 y6NnMoXbF4YXpmG1MoroF4Y DEwcHQg YBycUQV4E01on8R8UGOrLNT aGJF5cJV2gT1meTvuabufmP VmdDsgdmVydGljYWwtYWxpZ 246IHRv bMyoVPBalF7gICUegRWorRl nDK8lFPQtgrveHt5LDVkFCk muAAKQBteSLvIHIX19VU02t ROab4P9 pUJ9G9HbUXPdqafdotewqYB 0SMNnVPPhqV39zOXjHTkaIm 7zs1J8m853NAGmNSVrpI84F i5dpOlg LCJfoYRBlH1aufmvo4rxbwv fIbUqXASgDIy6XZs2IHMfbN nkCxKcQFE2LfE2TLT3wNXyn R9awWfq czhlnH8eTro+MDgvMjIvMTk 1ODwvdGQ+GFUlTAF6lUzuVW wfWVWsgO5nOUPzS1h6ZjQyN eP5ORxt A0YwPTPouwioEx17sJ4wAsB mCyY9ATpfC5AaobB3KFZbvP HnIEaoWHZ8C89xr7M5KBIjZ DAwMDA7 kFK3sZ1zrPpriacueYQseHt xdwOgzWzfINabAQbhB867MY KgoWlaHnA4LDtnSDErKJ24F P01aZDd s4P9nGW3Z6ZoOKThyviziho uqPT1ZDKsIYDntS37cHMoVM dyDh1un6F1t549GBWfZFRxw D16Wi4o mVyzHXVfiMOPqO8uyagju2o dxwtrClIaSZSpREa1KNp7JK ParGzkBsGcWJI9JcT2AHB2q CNnyE9i fPsqadflrF3iGgi+RmVtYWx xUX30LR98rYZog6D6oNF2Q9 CaNXWtveamblacdWA1LUQzL DUwaW47 uNFrJIrwXv2nw7M1c377QWW wDKBykE54Ax5plMkiMUXreD OGgL0hwdckm7ieivmpAgPuW DAwMDt0 VLl0TTIomEwyHlPpPJP3YzO 5OXM6ySPfrY5wjVkqoblwzX 9wOyc+VUJmYKZlp2Flx0AvN U81LL61 I4LbQiqjgEFldCT+PHRhYmx lIHdpZHRoPScxMDAlJyBzdH zhEI7vIy6yUDViMWTpuTtrb HNlOiBj l6rtJUUoQLywSZ2rxMtcC1B lkQI1RMUen9w3Ih65B92gU6 JvdXA+HNAclBA0jYC6mO1jJ zAlIiB2 TQylB523XiDikIWcGulby6c py5hpuUs6LmDzQWEbkvHxoE gaFVU4w2GnUj76X16uSHgzH HRoPSIy RGMkTCGbiSghnn1oyN7tIz8 +AOGlrHG4vGP2rK2mKbZnZz P8INkfY799XuMekUVlYxfdI 39dQ6Rk dXA+YXTrZdv2EAXbqMmuEW4 uoMYfFCreGu6qVHY6LuMzYb IdTQalT6DsXWMzbddrsbgcp AV5HZAu OZJuaN56Bs9xdPehGi7dETG kGTX1WNGxkZMzD4PhjA6hNx OpQKGqGJLaH0XwrGVbXDkkP 246IGxl UbL3BEEcdqDnX4CeGUTorGi mAfT3f3U3Ny2OsNfneDDxNL 0vHaTiRNm3I4WjHmv1BUNrd LrwUM4l xRGvEIyiTd9jlOyvpOjhQA6 xNJDugvhok600SwSby7xrJC OatISgJTnhNGB7S03ke6E3L CMwMDAw MQW9uAR3aC7ovLtztjzcvTI mdDsgdmVydGljYWwtYWxpZ2 78EXNkqMxuTsURGcp2F3NsZ lo1GASa bVuoAG7jeJFcLXayFl8syZa khVgwRP7gELIcbtluc090Ch Qxc2jrTCLdxWOwOGyeDNZ3L 74ur5H7 WVQcTRCzDMQ8iOP8aA0heYh nbjogbGVmdDsgdmVydGljYW hrBHjuD106OVOmvOmaGi5UG tn2P2Iy Xto8AVObsMnkFG9guMPyPWd zDf8ejBxizJzhQC7lFSLwcf eqx605EwHct7yhJGQxsPApV GltZXM7 C94eq6Z2FBCqTZDwFJF4jJB 2hO8cmCmyreemjIAtfCstnq XhaKxxTCmeUAfhJ217OKRua DsnPlBh eWVyOjwvdGQ+MZ13xd82T8S sReevVfl0FMOkCIO5bON4lK 9oHFFdUUjif9N3uJY9B0Ohq tMtse2o b2xs (more content not included)... Normal [facility] C Urineon 12-16-2022 Bacteria identified Cx Nom (U) Microbiology PROCEDURE: Urine Culture [R1] SOURCE: U Random BODY SITE: COLLECTED DATE/TIME: 12/14/2022 11:17 EST RECEIVED DATE/TIME: 12/14/2022 17:31 EST START DATE/TIME: 12/14/2022 17:31 EST FREE TEXT SOURCE: Blanca Arriaza, Blanca Perez FINAL REPORTS Final Report [] Verified Date/Time: 12/16/2022 09:26 EST 1,000 cfu/ml Mixed skin contaminants Performing Locations R1: This test was performed at: [facility], [address] [place] [address], [facility] , , [facility] Comment on above: Performed By: #### [id number] ####[facility] [address] [place] [address] Ambulatory Visit Summaryon 0 12-14-2022 Ambulatory Visit Summary DANIELLA BEJARANO :1960 Visit Date:12/14/2022 Ambulatory Visit Instructions Your Diagnosis History of UTI Your Care Team Attending Physician - Reza JAMES, Dina Oconnell Primary Care Physician - BAYRON SINGH MD This Is Your Medications List aspirin (aspirin 81 mg Oral EC Tab) ergocalciferol (Vitamin D) estradiol topical (Estrace 0.1 mg/g Cream) fluconazole (Diflucan 150 mg Tab) furosemide (Lasix 20 mg Tab) letrozole (letrozole 2.5 mg Tab) mirabegron (Myrbetriq 50 mg oral tablet, extended release) olmesartan (Benicar 40 mg Tab) oxaprozin (oxaprozin 600 mg Tab) pantoprazole (Protonix 40 mg Tab-DR) solifenacin (Vesicare 10 mg Tab) Procedures Performed Cystoscopy and transurethral resection of bladder tumor (12/22/2021), TURBT - Transurethral resection of bladder tumor (07/26/2021), Cystoscope (07/14/2021), Bilateral prosthetic arthroplasty of knees, Breast surgery, Cholecystectomy, History of hysterectomy., Ts - Tonsillectomy. What to do next Scheduled Follow-Up Appointments Monday. 2022 12:30 PM EDT With: Jeff Booth DO Where: [facility] Medications What How Much When Instructions Unchanged aspirin (aspirin 81 mg Oral EC Tab) By Mouth Every day Unchanged ergocalciferol (Vitamin D) By Mouth Every week Unchanged estradiol topical (Estrace 0.1 mg/ g Cream) See instructions Apply a pea size amount around the urethra and vagina, 3x a wk for 4 wks, then 2x a week afterwards. Unchanged fluconazole (Diflucan 150 mg Tab) 1 Tablets By Mouth Once Unchanged furosemide (Lasix 20 mg Tab) By Mouth Every day Unchanged letrozole (letrozole 2.5 mg Tab) By Mouth Every day Unchanged mirabegron (Myrbetriq 50 mg oral tablet, extended release) 1 Tablets By Mouth Every day Unchanged olmesartan (Benicar 40 mg Tab) By Mouth Every day Unchanged oxaprozin (oxaprozin 600 mg Tab) By Mouth Every day Unchanged pantoprazole (Protonix 40 mg Tab-DR) By Mouth 2 times a day Unchanged solifenacin (Vesicare 10 mg Tab) 1 Tablets By Mouth Every day Allergies Percocet (Headache) Problems Ongoing - Any problem that you are currently receiving treatment for. Abnormal urinary stream Bladder cancer BMI 40.0-44.9, adult Enterococcus faecalis infection Former smoker History of UTI Mixed incontinence OAB (overactive bladder) Urinary tract infection Urothelial carcinoma of bladder Vaginal atrophy Normal [facility] Operative Reporton 02-14-202 3 Operative Report [id number]#1.00C D:127 Normal [facility] Pathology Noteon 12-13-2022 Pathology Note [id number]#1.00C D:127 Normal [facility] CYTOLOGYon 12-07-2022 SENT TO REF LAB 12/07/2022 Normal [facility] Comment on above: Performed By: #### C YTO #### [facility] [address] [place] [address] Dr. Troy Jeter Insurance Correspondenceon 0 11-25-2022 Insurance Correspondence [id number]#1.00CD :127 Normal [facility] CBC AUTO DIFFon 11-23-2022 BASO # 0.1 103/ul Normal 0.0-0.1 [facility] Comment on above: Performed By: #### C BC #### [facility] [address] [place] [address] Dr. Troy Jeter Basophils/100 WBC (Bld) 1.0 % Normal 0.2-2.0 [facility] Comment on above: Performed By: #### C BC #### [facility] [address] [place] [address] Dr. Troy Jeter EO # 0.1 103/ul Normal 0.0-0.7 [facility] Comment on above: Performed By: #### C BC #### [facility] [address] [place] [address] Dr. Troy Jeter Eosinophils/100 WBC (Bld) 2.4 % Normal 0.9-7.0 [facility] Comment on above: Performed By: #### C BC #### [facility] [address] [place] [address] Dr. Troy Jeter Erythrocyte distribution width (RBC) [Ratio] 14.6 % Normal 11.0-15.0 [facility] Comment on above: Performed By: #### C BC #### [facility] [address] [place] [address] Dr. Troy Jeter Hematocrit (Bld) [Volume fraction] 37.7 % Normal 36.0-48.0 [facility] Comment on above: Performed By: #### C BC #### [facility] [address] [place] [address] Dr. Troy Jeter Hemoglobin (Bld) [Mass/Vol] 11.0 g/dL Critically low 12.0-16.0 [facility] Comment on above: Performed By: #### C BC #### [facility] [address] [place] [address] Dr. Troy Jeter IG # 0.02 10e3/ul Normal 0.00-0.03 [facility] Comment on above: Performed By: #### C BC #### [facility] [address] [place] [address] Dr. Troy Jeter IG % 0.4 % Normal 0.0-0.5 [facility] Comment on above: Performed By: #### C BC #### [facility] [address] [place] [address] Dr. Troy Jeter LYMPH # 1.3 103/ul Normal 1.2-3.8 [facility] Comment on above: Performed By: #### C BC #### [facility] [address] [place] [address] Dr. Troy Jeter Lymphocytes/100 WBC (Bld) 25.5 % Normal 20.5-60.0 [facility] Comment on above: Performed By: #### C BC #### [facility] [address] [place] [address] Dr. Troy Jeter MANUAL DIFF REQ NO Normal [facility] Comment on above: Performed By: #### C BC #### [facility] [address] [place] [address] Dr. Troy Jeter MCH (RBC) [Entitic mass] 25.9 pg Critically low 26.7-34.0 [facility] Comment on above: Performed By: #### C BC #### [facility] [address] [place] [address] Dr. Troy Jeter MCHC (RBC) [Mass/Vol] 29.2 g/dL Critically low 29.9-35.2 [facility] Comment on above: Performed By: #### C BC #### [facility] [address] [place] [address] Dr. Troy Jeter MCV (RBC) [Entitic vol] 88.7 fL Normal 81.0-99.0 [facility] Comment on above: Performed By: #### C BC #### [facility] [address] [place] [address] Dr. Troy Jeter MONO # 0.4 103/ul Normal 0.3-0.8 [facility] Comment on above: Performed By: #### C BC #### [facility] [address] [place] [address] Dr. Troy Jeter Monocytes/100 WBC (Bld) 8.6 % Normal 1.7-12.0 [facility] Comment on above: Performed By: #### C BC #### [facility] [address] [place] [address] Dr. Troy Jeter NEUT # 3.2 103/ul Normal 1.4-6.5 [facility] Comment on above: Performed By: #### C BC #### [facility] [address] [place] [address] Dr. Troy Jeter Neutrophils/100 WBC (Bld) 62.1 % Normal 43.0-75.0 [facility] Comment on above: Performed By: #### C BC #### [facility] [address] [place] [address] Dr. Troy Jeter Platelet mean volume (Bld) [Entitic vol] 9.4 fL Critically low 9.5-13.5 [facility] Comment on above: Performed By: #### C BC #### [facility] [address] [place] [address] Dr. Troy Jeter PLT 190 103/ul Normal 150-[address] [facility] Comment on above: Performed By: #### C BC #### [facility] [address] [place] [address] Dr. Troy Jeter RBC 4.25 106/ul Normal 4.20-5.40 [facility] Comment on above: Performed By: #### C BC #### [facility] [address] [place] [address] Dr. Troy Jeter WBC 5.1 103/ul Normal 4.0-11.0 [facility] Comment on above: Performed By: #### C BC #### [facility] [address] [place] [address] Dr. Troy Jeter PROF 14(COMP METB)on 023 Albumin [Mass/Vol] 3.4 g/dL Normal 3.4-5.0 [facility] Comment on above: Performed By: #### C BC #### [facility] [address] [place] [address] Dr. Troy Jeter Albumin/Globulin [Mass ratio] 0.9 {ratio} Normal [facility] Comment on above: Performed By: #### C BC #### [facility] [address] [place] [address] Dr. Troy Jeter ALP [Catalytic activity/Vol] 99 U/L Normal 46-116 [facility] Comment on above: Performed By: #### C BC #### [facility] [address] [place] [address] Dr. Troy Jeter ALT [Catalytic activity/Vol] 67 U/L Critically high 14-59 [facility] Comment on above: Performed By: #### C BC #### [facility] [address] [place] [address] Dr. Troy Jeter Anion gap [Moles/Vol] 12.8 mmol/L Normal [facility] Comment on above: Performed By: #### C BC #### [facility] [address] [place] [address] Dr. Troy Jeter AST [Catalytic activity/Vol] 54 U/L Critically high 15-37 [facility] Comment on above: Performed By: #### C BC #### [facility] [address] [place] [address] Dr. Troy Jeter Bilirubin [Mass/Vol] 0.4 mg/dL Normal 0.2-1.0 [facility] Comment on above: Performed By: #### C BC #### [facility] [address] [address] [address] Troy Jeter Calcium [Mass/Vol] 9.3 mg/dL Normal 8.5-10.1 [facility] Comment on above: Performed By: #### C BC #### [facility] [address] [address] [address] Troy Jeter Chloride [Moles/Vol] 106 mmol/L Normal 98-107 [facility] Comment on above: Performed By: #### C BC #### [facility] [address] [address] [address] Troy Jeter CO2 [Moles/Vol] 24.9 mmol/L Normal 21.0-32.0 [facility] Comment on above: Performed By: #### C BC #### [facility] [address] [place] [address] Dr. Troy Jeter Creatinine [Mass/Vol] 0.89 mg/dL Normal 0.55-1.02 [facility] Comment on above: Performed By: #### C BC #### [facility] [address] [place] [address] Dr. Troy Jeter EGFR-AF [place] >60 Normal >=60 [facility] Comment on above: Performed By: #### C BC #### [facility] [address] [place] [address] Dr. rToy Jeter EGFR-NON AF [place] >60 Normal >=60 [facility] Comment on above: Performed By: #### C BC #### [facility] [address] [place] [address] Dr. Troy Jeter Globulin (S) [Mass/Vol] 3.7 g/dL Normal [facility] Comment on above: Performed By: #### C BC #### [facility] [address] [place] [address] Dr. Troy Jeter Glucose [Mass/Vol] 125 mg/dL Critically high 74-106 [facility] Comment on above: Performed By: #### C BC #### [facility] [address] [place] [address] Dr. Troy Jeter Potassium [Moles/Vol] 3.7 mmol/L Normal 3.5-5.1 [facility] Comment on above: Performed By: #### C BC #### [facility] [address] [address] [address] Troy Jeter Protein [Mass/Vol] 7.1 g/dL Normal 6.4-8.2 [facility] Comment on above: Performed By: #### C BC #### [facility] [address] [address] [address] Troy Jeter Sodium [Moles/Vol] 140 mmol/L Normal 136-145 [facility] Comment on above: Performed By: #### C BC #### [facility] [address] [address] [address] Troy Jeter Urea nitrogen [Mass/Vol] 15.0 mg/dL Normal 7.0-18.0 [facility] Comment on above: Performed By: #### C BC #### [facility] [address] [address] [address] Troy Jeter Urea nitrogen/Creatinine [Mass ratio] 16.9 mg/mg Normal [facility] Comment on above: Performed By: #### C BC #### [facility] [address] [address] [address] Troy Jeter XR HAND RT MIN 3Von 11-05-19 23 XR HAND RT MIN 3V RIGHT HAND X-RAY THR EE VIEWS HISTORY: Pain. COMPARISON: None. FINDINGS: There is no acute fracture or dislocation in the right fourth digit. There is an old chip fracture at the second DIP joint. There is an acute nondisplaced comminuted fracture at the fourth metacarpal. There is no evidence of dislocation. There are severe osteoarthritic changes at the first carpometacarpal joint. IMPRESSION: Acute nondisplaced comminuted fracture at the fourth metacarpal. No acute fracture or dislocation. Severe osteoarthritis first carpometacarpal joint. Electronically authenticated by: JULISSA KAUFMAN Date: 2022-11-05 08:18 Normal [facility] Ambulatory Visit Summaryon 1 2-28-2022 Ambulatory Visit Summary DANIELLA BEJARANO :1960 Visit Date:10/26/2022 Ambulatory Visit Instructions Your Diagnosis Bladder cancer OAB (overactive bladder) History of UTI Vaginal atrophy Tests Performed Urnls Dip Stick Auto w/o Microscopy POC 82396 Your Care Team Attending Physician - AI MITCHELL PA-C Primary Care Physician - BAYRON SINGH MD This Is Your Medications List aspirin (aspirin 81 mg Oral EC Tab) ergocalciferol (Vitamin D) estradiol topical (Estrace 0.1 mg/g Cream) furosemide (Lasix 20 mg Tab) letrozole (letrozole 2.5 mg Tab) mirabegron (Myrbetriq 50 mg oral tablet, extended release) olmesartan (Benicar 40 mg Tab) oxaprozin (oxaprozin 600 mg Tab) pantoprazole (Protonix 40 mg Tab-DR) solifenacin (Vesicare 10 mg Tab) Procedures Performed Cystoscopy and transurethral resection of bladder tumor (12/22/2021), TURBT - Transurethral resection of bladder tumor (07/26/2021), Cystoscope (07/14/2021), Bilateral prosthetic arthroplasty of knees, Breast surgery, Cholecystectomy, History of hysterectomy., Ts - Tonsillectomy. Discharge Vitals Heart Rate (Peripheral) 65 Respiratory Rate 16 Blood Pressure 123/84 Height 163 cm Height 64 in Weight 115 kg Weight 253 lb BMI 43.28 What to do next Scheduled Follow-Up Appointments Monday. 2022 12:30 PM EDT With: Jeff Booth DO Where: [facility] You Need to Schedule the Following Appointments Follow Up with AI MITCHELL PA-C, ISAIAH When: Where: [address] [place] [address] Medications What How Much When Instructions Unchanged aspirin (aspirin 81 mg Oral EC Tab) By Mouth Every day Unchanged ergocalciferol (Vitamin D) By Mouth Every week Unchanged estradiol topical (Estrace 0.1 mg/ g Cream) See instructions Apply a pea size amount around the urethra and vagina, 3x a wk for 4 wks, then 2x a week afterwards. Unchanged furosemide (Lasix 20 mg Tab) By Mouth Every day Unchanged letrozole (letrozole 2.5 mg Tab) By Mouth Every day Unchanged mirabegron (Myrbetriq 50 mg oral tablet, extended release) 1 Tablets By Mouth Every day Unchanged olmesartan (Benicar 40 mg Tab) By Mouth Every day Unchanged oxaprozin (oxaprozin 600 mg Tab) By Mouth Every day Unchanged pantoprazole (Protonix 40 mg Tab-DR) By Mouth 2 times a day Unchanged solifenacin (Vesicare 10 mg Tab) 1 Tablets By Mouth Every day Test Results Urnls Dip Stick Auto w/o Microscopy POC 79306 (10/26/2022) Bilirubin Urine Dipstick - Negative Blood Urine Dipstick - Negative Glucose Urine Dipstick - Negative Ketones Urine Dipstick - Negative Leukocytes Urine Dipstick - Negative Nitrite Urine Dipstick - Negative Protein Urine Dipstick - Negative Specific [place] Urine Dipstick - 1.020 Urine Appearance Urine Dipstick - Clear Urine Color Urine Dipstick - Yellow Urobilinogen Urine Dipstick - Normal 0.2-1 EU/dl pH Urine Dipstick - 5.5 Allergies Percocet (Headache) Problems Ongoing - Any problem that you are currently receiving treatment for. Abnormal urinary stream Bladder cancer BMI 40.0-44.9, adult Enterococcus faecalis infection Former smoker History of UTI Mixed incontinence OAB (overactive bladder) Urinary tract infection Urothelial carcinoma of bladder Vaginal atrophy Normal [facility] Office/Clinic Noteon 10-26-2022 Urology Office/Clinic Note Chief Complaint BCG 3 of 3 HPI Staff Pt is here for BCG#3 of 3. Previous dx of bladder cancer, OAB, history of UTI and vaginal atrophy. History of Present Illness staff HPI reviewed and agree. Review of Systems no fever, chills, malaise, myalgia. no rash/lesions. no chest pain, palpitations, or SOB. no abdominal pain, nausea, vomiting. 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 1. Bladder cancer (C67.8: Malignant neoplasm of overlapping sites of bladder) CTU done 06/2021 shows left posterior filling defect in bladder, no upper tract filling defects, no LAD. CXR neg. High-grade T1 papillary urothelial carcinoma S/P TURBT 07/26/21, re-TURBT 08/25/21 negative for disease, muscle present and involved s/p induction BCG 10/27/2021 HG Ta recurrence 12/22/21 s/p TURBT, post resection intravesical gemcitabine 2nd induction of BCG completed 03/02/22. 3-month surveillance cystoscopy with atypical appearing 5 mm bladder mass s/p TURBT 05/11/22 -pathology negative, calcification and inflammation noted. Muscle present and uninvolved 3 month surveillance cysto and urine cytology 08/10/22 - neg CTU done 06/2022 was negative. Undergoing maintenance BCG x 3 yrs for high risk: 1st 3m maintenance BCG completed 07/06/22 2nd 6m mBCG #2/3 completed 10/12/22. 3rd mBCG #3/3 completed today without complication. Pt is here for BCG#3 of 3. The patient was placed in the appropriate position and under sterile conditions, the urethra is catheterized with a 14 Fr straight catheter and the bladder is emptied. 30 cc of sterile 0.9 NS with one vial of ELODIA BCG was placed into the bladder and the straight catheter was removed. The patient will hold the solution in the bladder for two hours, turning every fifteen minutes 1/4 turn to allow coating of the bladder surface. The patient should call the office or present to the Emergency Department for development of fever, chills, or flu-like symptoms. Symptoms such as urinary frequency, urgency, and other bladder irritation symptoms are expected. -Next 3 month surveillance cysto/cytology early Nov 2021 2. OAB (overactive bladder) (N32.81: Overactive bladder) Pt continues taking VESIcare 10mg QD. Prior auth in process since prior OV to add Myrbetriq therapy since VESIcare is not adequate. 3. History of UTI (Z87.440: Personal history of urinary (tract) infections) UA today negative for blood and infection. 4. Vaginal atrophy (N95.2: Postmenopausal atrophic vaginitis) Pt continues using Estrace cream 0.1mg/g. Follow-up With When Contact Information RUY VALLE, AI lAejandro, [address] [place] [address] Additional Instructions: F/U nov 2022 cysto/cyto Patient Education I, Mahi Casey, personally scribed for PAULINA Blackwell on 10/26/2022 10:35:19. . Documentation recorded by the scribjavon Casey accurately reflects the services(s) I performed and decisions made by me. Authenticated by Ai Mitchell PA-C on 10/26/2022 11:06:13. Problem List/Past Medical History Ongoing Abnormal urinary stream Bladder cancer BMI 40.0-44.9, adult Enterococcus faecalis infection Former smoker History of UTI Mixed incontinence OAB (overactive bladder) Urinary tract infection Urothelial carcinoma of bladder Vaginal atrophy Historical No qualifying data Procedure/Surgical History Cystoscopy and transurethral resection of bladder tumor (12/22/2021), TURBT - Transurethral resection of bladder tumor (07/26/2021), Cystoscope (07/14/2021), Bilateral prosthetic arthroplasty of knees, Breast surgery, Cholecystectomy, History of hysterectomy., Ts - Tonsillectomy. Medications aspirin 81 mg Oral EC Tab, Oral, Daily Benicar 40 mg Tab, Oral, Daily Estrace 0.1 mg/g Cream, See Instructions, 2 refills Lasix 20 mg Tab, Oral, Daily letrozole 2.5 mg Tab, Oral, Daily Myrbetriq 50 mg oral tablet, extended release, 50 mg= 1 tab(s), Oral, Daily, 11 refills oxaprozin 600 mg Tab, Oral, Daily Protonix 40 mg Tab-DR, Oral, BID [place] BCG Live (for intravesical use), 50 mg, IntraVesical, Once Vesicare 10 mg Tab, 10 mg= 1 tab(s), Oral, Daily, 3 refills Vitamin D, Oral, qWeek Allergies Percocet (Headache) Social History Alcohol - Denies Alcohol Use, 07/07/2021 Tobacco Former smoker, quit more than 30 days ago Tobacco Use:. Never Smokeless Tobacco Use:. Cigarettes, 10/12/2022 (more content not included)... Normal [facility] Comment on above: Result Comment: Elec tronically Signed By: AI MITCHELL PA-C\.br\Date and Time Signed: 10/26/22 11:06 EST\.br\Electronically Co-Signed By: Mahi Casey\.br\Date and Time Co-Signed: 10/26/22 10:54 EST Ambulatory Visit Summaryon 1 12-20-2021 Ambulatory Visit Summary DANIELLA BEJARANO :1960 Visit Date:10/19/2022 Ambulatory Visit Instructions Your Diagnosis Bladder cancer OAB (overactive bladder) History of UTI Vaginal atrophy Tests Performed Urnls Dip Stick Auto w/o Microscopy POC 73844 Your Care Team Attending Physician - Reza JAMES, Dina Oconnell Primary Care Physician - BAYRON SINGH MD This Is Your Medications List Contact prescribing physician if questions or concerns aspirin (aspirin 81 mg Oral EC Tab) ergocalciferol (Vitamin D) estradiol topical (Estrace 0.1 mg/g Cream) furosemide (Lasix 20 mg Tab) letrozole (letrozole 2.5 mg Tab) mirabegron (Myrbetriq 50 mg oral tablet, extended release) olmesartan (Benicar 40 mg Tab) oxaprozin (oxaprozin 600 mg Tab) pantoprazole (Protonix 40 mg Tab-DR) solifenacin (Vesicare 10 mg Tab) Procedures Performed Cystoscopy and transurethral resection of bladder tumor (12/22/2021), TURBT - Transurethral resection of bladder tumor (07/26/2021), Cystoscope (07/14/2021), Bilateral prosthetic arthroplasty of knees, Breast surgery, Cholecystectomy, History of hysterectomy., Ts - Tonsillectomy. Discharge Vitals Heart Rate (Peripheral) 66 Blood Pressure 145/64 Height 163 cm Height 64 in Weight 115 kg Weight 253 lb BMI 43.28 What to do next Scheduled Follow-Up Appointments Monday 10:30 AM EST With: AI MITCHELL PA-C Where: [facility] Normal [facility] Patient Educationon 10-19-20 Patient Education Oncology Bladder Cancer Bladder cancer is an abnormal growth of tissue in the bladder. The bladder is the balloon-like sac in the pelvis. It collects and stores urine that comes from the kidneys through the ureters. The bladder wall is made of layers. If cancer spreads into these layers and through the wall of the bladder, it becomes more difficult to treat. What are the causes? The cause of this condition is not known. What increases the risk? The following factors may make you more likely to develop this condition: ? Smoking. ? Workplace risks (occupational exposures), such as rubber, leather, textile, dyes, chemicals, and paint. ? Being white. ? Your age. Most people with bladder cancer are over the age of 55. ? Being male. ? Having chronic bladder inflammation. ? Having a personal history of bladder cancer. ? Having a family history of bladder cancer (heredity). ? Having had chemotherapy or radiation therapy to the pelvis. ? Having been exposed to arsenic. What are the signs or symptoms? Initial symptoms of this condition include: ? Blood in the urine. ? Painful urination. ? Frequent bladder or urine infections. ? Increase in urgency and frequency of urination. Advanced symptoms of this condition include: ? Not being able to urinate. ? Low back pain on one side. ? Loss of appetite. ? Weight loss. ? Fatigue. ? Swelling in the feet. ? Bone pain. How is this diagnosed? This condition is diagnosed based on your medical history, a physical exam, urine tests, lab tests, imaging tests, and your symptoms. You may also have other tests or procedures done, such as: ? A narrow tube being inserted into your bladder through your urethra (cystoscopy) in order to view the lining of your bladder for tumors. ? A biopsy to sample the tumor to see if cancer is present. If cancer is present, it will then be staged to determine its severity and extent. Staging is an assessment of: ? The size of the tumor. ? Whether the cancer has spread. ? Where the cancer has spread. It is important to know how deeply into the bladder wall cancer has grown and whether cancer has spread to any other parts of your body. Staging may require blood tests or imaging tests, such as a CT scan, MRI, bone scan, or chest X-ray. How is this treated? Based on the stage of cancer, one treatment or a combination of treatments may be recommended. The most common forms of treatment are: ? Surgery to remove the cancer. Procedures that may be done include transurethral resection and cystectomy. ? Radiation therapy. This is high-energy X-rays or other particles. This is often used in combination with chemotherapy. ? Chemotherapy. During this treatment, medicines are used to kill cancer cells. ? Immunotherapy. This uses medicines to help your own immune system destroy cancer cells. Follow these instructions at home: ? Take [id number] and prescription medicines only as told by your health care provider. ? Maintain a healthy diet. Some of your treatments might affect your appetite. ? Consider joining a support group. This may help you learn to cope with the stress of having bladder cancer. ? Tell your cancer care team if you develop side effects. They may be able to recommend ways to relieve them. ? Keep all follow-up visits as told by your health care provider. This is important. Where to find more information ? [employer]: www.cancer.org ? [employer] Cancer [place] (NCI): www.cancer.gov Contact a health care provider if: ? You have symptoms of a urinary tract infection. These include: ? Fever. ? Chills. ? Weakness. ? Muscle aches. ? Abdominal pain. ? Frequent and intense urge to urinate. ? Burning feeling in the bladder or urethra during urination. Get help right away if: ? There is blood in your urine. ? You cannot urinate. ? You have severe pain or other symptoms that do not go away. Summary ? Bladder cancer is an abnormal growth of tissue in the bladder. ? This condition is diagnosed based on your medical history, a physical exam, urine tests, lab tests, imaging tests, and your symptoms. ? Based on the stage of cancer, surgery, chemotherapy, or a combination of treatments may be recommended. ? Consider joining a support group. This may help you learn to cope with the stress of having bladder cancer. This information is not intended to replace advice given to you by your health care provider. Make sure you discuss any questions you have with your health care provider. Document Released: 10/18/2004 Document Revised: 09/28/2018 Document Reviewed: 09/19/2017 [employer] Patient Education ? 2019 [employer] Eric [facility] U[facility] Office/Clinic Noteon 10-19-2022 Urology Office/Clinic Note Chief Complaint BCG #2 HPI Staff BCG #2 of 3 for the Tx of Bladder Cancer. Additional DX: OAB, Hx of UTI & Vaginal Atrophy. Myrbetriq 50mg QD daily & Estrace Cream. Pt states that she has no urinary changes since her last OV. History of Present Illness Tests reviewed: reviewed UA I have reviewed the previous health record information and history for this patient from Dr. Cobb I have reviewed and verified the staff HPI to be accurate for this encounter. There have been no associated fever, chills, flank pain, or blood in the urine. Denies any urinary infections since last encounter. Review of Systems ROS - Provider Constitutional: denies weight loss, denies hot flashes. Eyes: denies eye problems. Gastrointestinal: denies nausea, denies vomiting. Cardiovascular: denies chest pain or angina. Integumentary: no dryness Musculoskeletal: denies musculoskeletal symptoms. ENMT: denies otolaryngeal symptoms. Respiratory: no shortness of breath. Heme/Lymph: denies easy bleeding tendency, denies easy bruising tendency. Psychiatric: no confusion, no anxiety. Genitourinary: see HPI Physical Exam Vitals & Measurements HR: 66(Peripheral) BP: 145/64 HT: 64 in HT: 163 cm WT: 115 kg WT: 253 lb BMI: 43.28 General Appearance: alert , no acute distress, well nourished, well developed female. Genitourinary: bladder nonpalpable, no flank pain. Assessment/Plan 1. Bladder cancer (C67.8: Malignant neoplasm of overlapping sites of bladder) 06/2021 CTU: left posterior filling defect in bladder, no upper tract filling defects, no LAD. CXR neg. High-grade T1 papillary urothelial carcinoma S/P TURBT 07/26/21, re-TURBT 08/25/21 negative for disease, muscle present and involved s/p induction BCG 10/27/2021 HG Ta recurrence 12/22/21 s/p TURBT, post resection intravesical gemcitabine 2nd induction of BCG completed 03/02/22 3-month surveillance cystoscopy with atypical appearing 5 mm bladder mass s/p TURBT 05/11/22 -pathology negative, calcification and inflammation noted. Muscle present and uninvolved 3 month surveillance cysto and urine cytology 08/10/22 - neg CTU 06/2022 neg Undergoing maintenance BCG x 3 yrs for high risk -1st 3m maintenance BCG completed 07/06/22 -2nd 6m mBCG #2/3 without issue today -Will return in 1 week for BCG #3/3. Pt agrees with plan. -Next 3 month surveillance cysto/cytology early Nov 2021 2. OAB (overactive bladder) (N32.81: Overactive bladder) Continues taking VESIcare 10mg qd. Improvement but still with sx -Rx Myrbetriq 50mg prior, however insurance issues. Prior auth in process to add Myrbetriq therapy since VESIcare is not adequate 3. History of UTI (Z87.440: Personal history of urinary (tract) infections) UA does not show any infection, pt denies any infections. Hx of UTIs and asymptomatic bacteruria with prior BCGs, no sequelae from treatments All questions and concerns were discussed. Pt acknowledge and understands. Pt will call our office with any changes in urinary symptoms. 4. Vaginal atrophy (N95.2: Postmenopausal atrophic vaginitis) Pt to continue with Estrace cream. Improving Follow-up No qualifying data available Patient Education Bladder Cancer I, Shaylee Bermudez , personally scribed for Dr. Cobb on 10/19/2022 08:13:27. . Documentation recorded by the scribeShaylee, accurately reflects the services(s) I performed and decisions made by me. Authenticated by Dr. Cobb on 10/19/2022 08:20:25. Problem List/Past Medical History Ongoing Abnormal urinary stream Bladder cancer BMI 40.0-44.9, adult Enterococcus faecalis infection Former smoker History of UTI Mixed incontinence OAB (overactive bladder) Urinary tract infection Urothelial carcinoma of bladder Vaginal atrophy Historical No qualifying data Procedure/Surgical History Cystoscopy and transurethral resection of bladder tumor (12/22/2021), TURBT - Transurethral resection of bladder tumor (07/26/2021), Cystoscope (07/14/2021), Bilateral prosthetic arthroplasty of knees, Breast surgery, Cholecystectomy, History of hysterectomy., Ts - Tonsillectomy. Medications aspirin 81 mg Oral EC Tab, Oral, Daily Benicar 40 mg Tab, Oral, Daily Estrace 0.1 mg/g Cream, See Instructions, 2 refills Lasix 20 mg Tab, Oral, Daily letrozole 2.5 mg Tab, Oral, Daily Myrbetriq 50 mg oral tablet, extended release, 50 mg= 1 tab(s), Oral, Daily, 11 refills oxaprozin 600 mg Tab, Oral, Daily Protonix 40 mg Tab-DR, Oral, BID Vesicare 10 mg Tab, 10 mg= 1 tab(s), Oral, Daily, 3 refills Vitamin D, Oral, qWeek Allergies Percocet (Headache) Social History Alcohol - Denies Alcohol Use, 07/07/2021 Tobacco Former smoker, quit more than 30 days ago Tobacco Use:. Never Smokeless Tobacco Use:. Cigarettes, 10/12/2022 Family History Anemia: Father. Arthritis: Mother and Father. Hypertension: Mother, Father and Brother. Prostate cancer: Brother. Immun (more content not included)... Normal [facility] Comment on above: Result Comment: Elec tronically Signed By: Dina Cobb MD\.br\Date and Time Signed: 10/19/22 08:20 EST\.br\Electronically Co-Signed By: Shaylee Bermudez\.br\Date and Time Co-Signed: 10/19/22 08:13 EST Consent for Procedure/Surger yon 10-12-2022 Consent for Procedure/Surgery [id number] D:127 Normal [facility] Patient Educationon 10-12-20 22 Patient Education Oncology Bladder Cancer Bladder cancer is an abnormal growth of tissue in the bladder. The bladder is the balloon-like sac in the pelvis. It collects and stores urine that comes from the kidneys through the ureters. The bladder wall is made of layers. If cancer spreads into these layers and through the wall of the bladder, it becomes more difficult to treat. What are the causes? The cause of this condition is not known. What increases the risk? The following factors may make you more likely to develop this condition: ? Smoking. ? Workplace risks (occupational exposures), such as rubber, leather, textile, dyes, chemicals, and paint. ? Being white. ? Your age. Most people with bladder cancer are over the age of 55. ? Being male. ? Having chronic bladder inflammation. ? Having a personal history of bladder cancer. ? Having a family history of bladder cancer (heredity). ? Having had chemotherapy or radiation therapy to the pelvis. ? Having been exposed to arsenic. What are the signs or symptoms? Initial symptoms of this condition include: ? Blood in the urine. ? Painful urination. ? Frequent bladder or urine infections. ? Increase in urgency and frequency of urination. Advanced symptoms of this condition include: ? Not being able to urinate. ? Low back pain on one side. ? Loss of appetite. ? Weight loss. ? Fatigue. ? Swelling in the feet. ? Bone pain. How is this diagnosed? This condition is diagnosed based on your medical history, a physical exam, urine tests, lab tests, imaging tests, and your symptoms. You may also have other tests or procedures done, such as: ? A narrow tube being inserted into your bladder through your urethra (cystoscopy) in order to view the lining of your bladder for tumors. ? A biopsy to sample the tumor to see if cancer is present. If cancer is present, it will then be staged to determine its severity and extent. Staging is an assessment of: ? The size of the tumor. ? Whether the cancer has spread. ? Where the cancer has spread. It is important to know how deeply into the bladder wall cancer has grown and whether cancer has spread to any other parts of your body. Staging may require blood tests or imaging tests, such as a CT scan, MRI, bone scan, or chest X-ray. How is this treated? Based on the stage of cancer, one treatment or a combination of treatments may be recommended. The most common forms of treatment are: ? Surgery to remove the cancer. Procedures that may be done include transurethral resection and cystectomy. ? Radiation therapy. This is high-energy X-rays or other particles. This is often used in combination with chemotherapy. ? Chemotherapy. During this treatment, medicines are used to kill cancer cells. ? Immunotherapy. This uses medicines to help your own immune system destroy cancer cells. Follow these instructions at home: ? Take njqd-vvn-[id number] and prescription medicines only as told by your health care provider. ? Maintain a healthy diet. Some of your treatments might affect your appetite. ? Consider joining a support group. This may help you learn to cope with the stress of having bladder cancer. ? Tell your cancer care team if you develop side effects. They may be able to recommend ways to relieve them. ? Keep all follow-up visits as told by your health care provider. This is important. Where to find more information ? [employer]: www.cancer.org ? [employer] [place] (NCI): www.cancer.gov Contact a health care provider if: ? You have symptoms of a urinary tract infection. These include: ? Fever. ? Chills. ? Weakness. ? Muscle aches. ? Abdominal pain. ? Frequent and intense urge to urinate. ? Burning feeling in the bladder or urethra during urination. Get help right away if: ? There is blood in your urine. ? You cannot urinate. ? You have severe pain or other symptoms that do not go away. Summary ? Bladder cancer is an abnormal growth of tissue in the bladder. ? This condition is diagnosed based on your medical history, a physical exam, urine tests, lab tests, imaging tests, and your symptoms. ? Based on the stage of cancer, surgery, chemotherapy, or a combination of treatments may be recommended. ? Consider joining a support group. This may help you learn to cope with the stress of having bladder cancer. This information is not intended to replace advice given to you by your health care provider. Make sure you discuss any questions you have with your health care provider. Document Released: 10/18/2004 Document Revised: 09/28/2018 Document Reviewed: 09/19/2017 [employer] Patient Education ? 2019 [employer] [facility] Urology Office/Clinic Noteon 10-12-2022 Urology Office/Clinic Note Chief Complaint BCG #1 of 3 HPI Staff Pt is here today for BCG #1 of 3 for the Tx of Bladder Cancer. Consent has been signed. Pt states you have prescribed her a med in the past for bladder spasms. BUt prescription was too expensive. She believes the insurance was supposed to send our office a prior auth. But has not heard anything about it. History of Present Illness Tests Reviewed: Reviewed UA. I have reviewed and verified the staff HPI to be accurate for this encounter. I have reviewed the previous health record information and history for this patient from Dr. Cobb There have been no associated fever, chills, flank pain, or blood in the urine. Denies any urinary infections since last encounter. Review of Systems PHQ Score Initial Depression Screen Score: 0 ROS - Provider Constitutional: denies weight loss, denies hot flashes. Eyes: denies eye problems. Gastrointestinal: denies nausea, denies vomiting. Cardiovascular: denies chest pain or angina. Integumentary: no dryness Musculoskeletal: denies musculoskeletal symptoms. ENMT: denies otolaryngeal symptoms. Respiratory: no shortness of breath. Heme/Lymph: denies easy bleeding tendency, denies easy bruising tendency. Psychiatric: no confusion, no anxiety. Genitourinary: see HPI Physical Exam Vitals & Measurements HR: 74(Peripheral) RR: 16 BP: 132/68 HT: 64 in HT: 163 cm WT: 115 kg WT: 253 lb BMI: 43.28 General Appearance: alert , no acute distress, well nourished, well developed female. Genitourinary: bladder nonpalpable, no flank pain. Procedure The patient was placed in the appropriate position and under sterile conditions, the urethra is catheterized with a 14 Fr straight catheter and the bladder is emptied. 30 cc of sterile 0.9 NS with one vial of ELODIA BCG was placed into the bladder and the straight catheter was removed. The patient will hold the solution in the bladder for two hours, turning every fifteen minutes 1/4 turn to allow coating of the bladder surface. The patient should call the office or present to the Emergency Department for development of fever, chills, or flu-like symptoms. Symptoms such as urinary frequency, urgency, and other bladder irritation symptoms are expected. Assessment/Plan 62-year-old female former smoker with high risk HG Ta/T1 nonmuscle invasive bladder cancer diagnosed 07/26/2021. 1. Bladder cancer (C67.8: Malignant neoplasm of overlapping sites of bladder) 06/2021 CTU: left posterior filling defect in bladder, no upper tract filling defects, no LAD. CXR neg. High-grade T1 papillary urothelial carcinoma S/P TURBT 07/26/21, re-TURBT 08/25/21 negative for disease, muscle present and involved s/p induction BCG 10/27/2021 HG Ta recurrence 12/22/21 s/p TURBT, post resection intravesical gemcitabine 2nd induction of BCG completed 03/02/22 3-month surveillance cystoscopy with atypical appearing 5 mm bladder mass s/p TURBT 05/11/22 -pathology negative, calcification and inflammation noted. Muscle present and uninvolved 3 month surveillance cysto and urine cytology 08/10/22 - neg CTU 06/2022 neg Undergoing maintenance BCG x 3 yrs for high risk -1st 3m maintenance BCG completed 07/06/22 -2nd 6m mBCG #1/3 today without issue. UA today is clear/neg for any blood or infections. Took prophy bactrim given hx of asx bacteruria -Will return in 1 week for BCG #2/3. Pt agrees with plan. 2. OAB (overactive bladder) (N32.81: Overactive bladder) Continues taking VESIcare 10mg qd. Improvement but still with sx -Rx Myrbetriq 50mg prior, however insurance issues. Will look into insurance coverage/prior auth for pt to add Myrbetriq therapy since VESIcare is not adequate 3. History of UTI (Z87.440: Personal history of urinary (tract) infections) UA does not show any infection, pt denies any infections since last office visit. Hx of UTIs and asymptomatic bacteruria with prior BCGs, no sequelae from treatments All questions and concerns were discussed. Pt acknowledge and understands. Pt will call our office with any changes in urinary symptoms. 4. Vaginal atrophy (N95.2: Postmenopausal atrophic vaginitis) Improved, will continue Estrace cream Follow-up With When Contact Information Reza JAMES, Dina Oconnell, URL, URO Within 1 week Additional Instructions: BCG #2 of #3 Patient Education Bladder Cancer I, Paulina Valenzuela, personally scribed for Dr. Cobb on 10/12/2022 08:44:30. . Documentation recorded by the scribe, Paulina Valenzuela, accurately reflects the services(s) I performed and decisions made by me. Authenticated by Dr. Cobb on 10/12/2022 09:00:05. Problem List/Past Medical History Ongoing Abnormal urinary stream Bladder cancer BMI 40.0-44.9, adult Enterococcus faecalis infection Former smoker History of UTI Mixed incontinence OAB (overactive bladder) Urinary tract infection Urothelial carcinoma of bladder Vaginal atrophy Historical No qualifyi (more content not included)... Normal [facility] Comment on above: Result Comment: Elec tronically Signed By: Dina Cobb MD\.br\Date and Time Signed: 10/12/22 09:01 EST\.br\Electronically Co-Signed By: Paulina Valenzuela\.br\Date and Time Co-Signed: 10/12/22 08:44 EST Pathology Noteon 08-17-2022 Pathology Note [id number]#1.00C D:127 Normal [facility] Operative Reporton Operative Report [id number]#1.00C D:127 Normal [facility] CYTOLOGYon 08-10-2022 SENT TO REF LAB 08/10/22 [facility] Comment on above: Performed By: #### C YTO #### [facility] [address] [place] [address] Dr. Troy Jeter Lab Reportson 07-29-2022 Lab Reports [id number]#1.00C D:127 Normal [facility] CULTURE URINEon 07-28-2022 CULTURE URINE Culture Observations : Sent to [facility] for EVIN on 07/25. Isolate 1 Klebsiella pneumoniae >100,000 cfu/mL of ORGANISM 1 Klebsiella pneumoniae ANTIBIOTIC M.I.C RX STATUS Ampicillin R F Ceftriaxone S F Ciprofloxacin R F Ertapenem S F Gentamicin S F Imipenem S F Levofloxacin R F Nitrofurantoin R F Piperacillin/Tazobactam I F Tobramycin R F Amoxicillin/Clavulanic Acid I F Trimethoprim/Sulfametho xazole S F Cefuroxime I F Meropenem S F Tetracycline R F [facility] Comment on above: Performed By: #### C YTO #### [facility] [address] [place] [address] Dr. Troy Jeter Lab Reportson 07-27-2022 Lab Reports [id number]#[id number] D:127 [facility] Lab Reports [id number]#1.00CD :127 [facility] C Urineon 07-08-2022 Bacteria identified Cx Nom (U) Microbiology PROCEDURE: Urine Culture [R1] SOURCE: U CleanCatch BODY SITE: COLLECTED DATE/TIME: 07/06/2022 11:12 EDT RECEIVED DATE/TIME: 07/06/2022 19:13 EDT START DATE/TIME: 07/06/2022 19:13 EDT FREE TEXT SOURCE: Reza JAMES, Dina Cobb MD, Dina Oconnell FINAL REPORTS Final Report [] Verified Date/Time: 07/08/2022 11:15 EDT >100,000 cfu/ml Klebsiella pneumoniae SUSCEPTIBILITY RESULTS ___ LEGEND: S=Susceptible, N/R=Not Reported, Blank=Data not available, or drug not advisable or tested, I=Intermediate, ESBL=Extended spectrum beta-lactamase, R=Resistant, TFG=Thymidine-dependent strain, MIKI=Beta-lactamase positive, EVIN=mcg/m;(mg/L), S*=Predicted susceptible interp, R*=Predicted resistant interp ___ Klepne Antibiotic EVIN Dilutn EVIN Interp Amikacin <=16 S Ampicillin >16 R Ampicillin/ >16/8 R Sulbactam Aztreonam <=4 S Cefazolin 4 S Cefepime 4 S Cefoxitin <=8 S Ceftazidime <=1 S Ceftazidime/ <=8 S Avibactam Ceftriaxone <=1 S Ciprofloxacin >2 R Ertapenem <=0.5 S Gentamicin <=4 S Levofloxacin <=2 S Meropenem <=1 S Nitrofurantoin <=32 S Piperacillin/ 64 I Tazobactam Tetracycline >8 R Tigecycline <=2 S Tobramycin >8 R Trimethoprim/ >2/38 R Sulfa Performing Locations R1: This test was performed at: [facility], [address] [place] [address], [id number] , , Normal [facility] Comment on above: Performed By: #### [id number] ####[facility] [address] [place] [address] Coding Summary.on 07-08-2022 Coding Summary. CD:[id number] Gh0 bWw+PGhlYWQ+PS1OEELfY79 rxMMneM2OQ0oREU1ZRNXOGZ PINO0OLN5yxWF2LEmfT4Hzm iAv XoflyBQgJZ23XYi5KWH1wWs gGIofpB4lfFOuB8s8JnDjFN 97hE98FQniFRWzSxM8DfAnl jsgbWFy F6gmAdGrlBVdPxo+PHRhYmx lIHdpZHRoPScxMDAlJyBzdH cuLO1dRv2jHKKvFDRocXxrw HNlOiBj z5ebWXHwCVdlPV1nsTiaS8M knQV3ZJEoj2m3Ky66zNG+PH JoJQC6pJbcFEdbq711MbXdu 7roQVX7 hCWxUIojQJN3B77wu7C0HPK tJHZkIUD3tFY4pI0asFixvm mlP3McjQCxZhF0OGO3pUVws W8juIdt ipwhuO2tKsq+O18SIZ2ITAO ZPA9YGrx9P7QqCoturLZ+PC 63ZQMyHV39nZBiiVNgy7qxd Xg7ElEt FGBuNVR4nPfvPDcvm6DgYNP cX14urUGdw7V9EELpwQoodB GwXrNdwNO1xE9lEIxogwfit 2hvdzsn Hfats2vnxh30jV56E65xWGw cAKSsFLK4RAMpKYDvrRgyia 4xfT9yXp1+EVukr2jtn2vis Yc6JpSv OFCgdkOfaFylWJA5r5RsBq4 2A6RegWrts3IeAzb1rs42kY Frj9G4wWC0DWnsGWDdkJ6cV WxlZnQ6 EQJxHsFrmJ76tYXmGXbnYf9 cwNvflXcfQW6oBALkcraeAN FfyV3uOZKauSFyhApjLO0sC TBpbjtm p111RuFbAEN0QAObqYWfD1R ioJ0xImVgGQSqFZNrH1JrdS KdXNazZ603UXkcHyK9GZAjq hIkI2Cm GSJheXuwGtG7l7F7Ht5My9W cumakGWN3RPmkEKG3GoO4Ok NyQkW2I0QpLms2UTThoAslE J4vC0Cb OZApvvbjujymyGR9EFAjGBO emG16cETyOTxlRc1un6Z7m1 59OFLlPUIhdA33Ck4jkPtpT TBwdCBU yM7zaomcz4jnoawdSvUqWEK oOJy4CVp2MFJryFisIeYrHK Q3AaU9KNU0vZUxoF9ktNytw xusyZ5q Oyc+A43hyI5aEZX3XFW8fro eSZZwtzRsWB50UQ48M8XfTn wvdGFibGU+PGRpdiBzdHlsZ G7vMiMr c3pst0CbQGjkB5RhYWTyTOs aWzv3ZIXlTWR8iTG6xQ8tRU RiVLzif1G9gCG8N9LwrpNeu v7fp4yy YXWhZDsuB76oiQHtl1D7ZMA svAH5ZVFxaVitMbHwpN98Bd c+JNYdrHzlt4GzTvqdg2fbs 3yxcZw5 ArMtWMQsfwPetInxZHJ8n9S zAw62B67kABqrZBQfFQSqRT EhPBAjkDhbmp9mnK0zTt6+P GNvbCB3 dHJ3gL8mIKFwEhT4GSdvI28 9FoLelRBlUwthy0avu3zajK z5DhVqXTYsviKspVshPKT0j 8LyJp96 J30fOFbrNCViJEIuZOJePAF cqCvymp9whE9zVr0+PC9jb2 ctez27tJ65gDE+LDJbZVL2g WxlPSdw VJBzyU8hGImpAbA2JNBtMeB ztQ51aIAxZJrrXi7vmOnsdE jrVP5eKXPlyyjrn207QrHyx 2xkIDEw oRMeLCfkJOO8C46kp3B7CPA gTXLaGCE8aGX6pP1wwDbkbq ogbGVmdDsgdmVydGljYWwtY QbdN129 IHRvcDsnPlBhdGllbnQgTmF tGDs6F8XtRzg5AGRrrLtuZV 0kvVChHQsdHw1bbYzyzLkvL T0sYDIk lgyag274LcHwn4shGSMaiES cJJklHFP2X91gl9J1PMWwBM HnQNZ8tVT9xC3zeUtpuwhfj GVmdDsg qmSuyFusEYybWAtyZ936NRX orEpmGyXvquEoMZMwnRM5JI 67EF42yEMqk1D0xFS1V4TyL GRpbmct cifmzSI3IOCwVBPflT09Ae3 xvDraUl7cBXPuPQH7RBSenA JdQ9NfwD4wIrOiRMEoGEJpK 3RleHQt OIohN281SNioXfD9JNIzdjP eQ8JdVZDpcIqlHlS4y8X3Ia 8UC0H0AO94QN60fKNnl7O7q CE8M6Fz ZFBfbsnaxpxdmHP8OGAvZRN piH70Dn4nwEmnKc3lPEWgRS S9DBSntTOuO1BgpI9nGoIsB DAwMDAw U2JcuUEtDTilN802FEluRiA 5AFBuzzQaW0ZnCOMugTvaNg D3i9C6Vs4EAZy8QK85LN76k HOqy8P3 cLU9F9ZkCNGnjizichhjeIZ 6DRNdYPUibJ40Yc4bqYgoTv 6nJSYxELY3JLWofYYuX9Olz S4uKvYq NDDjXFZaX4QotFKiDGytN94 7NHmiNaQ4KTXftwXvR3AgQZ EnkWooQlG4n2X9Uf7YNCLeC E67XOK5 zOF6HF47OD90N5TuLxkmgXD ibGU+PHRhYmxlIHdpZHRoPS xoVKAbIrEsrHciBJ6eAo0yO GVyLWNv nXcljTBmMuYmd0lgVEOyIJb dJM7nwVcoH7ZnaJE6NDFmf2 i5Zw19D36jT5EniHW+PGNvb IQ9bOR0 gS8sGkOzZgV5FCzpS642VnP lgBUmMqfft5xlz6jpqLa9Sq D5URZasbWdwUtdVUH0q6CaC d49J84f IHdpZHRoPSIxNSUiIHZhbGl lbr6emS7cZu1+ELLpsQC7sZ D4iP3dShTvOlD8RNwqB666B nRvcCIv Zjdtp4ulv4hrfCr2IjUqFXE qstFaeJiuPYW2a7GtIi01A7 YdpDoug7DzGgb0gt45fVBdf 5K2tYV7 H9WuNPSswnzjvBMtnOxlLT9 cDBNvitqqSUYokK4gEMVnW1 k3EdXzVbY4JXxpC1PmffJ8X DEwcHQg LVyuIKT9C21jf9R1TKQeSJC fTKA1uEW3yA6gxFihrcmnpE VmdDsgdmVydGljYWwtYWxpZ 246IHRv dCplYCSpbD8cTDLxeZVaqTt vLT1zWRUzghdmPk6WSGmEUx jwBUJQSjmVEcRMZC51ZD98r RQzn1D3 eOM2E2WtVAXnjyzpogdmdDR 0KBVeXMLisG06cLKeWRjmEw 2xc0B6y763THOgUOMdiO80N f7trEhc BGLzuKBAoA9axhiea1wbucj lHuMqCWDtKPb4TVf8BPFzuJ tfYcExETJ4SeG8JND3qTCnt Y3dxLbn fezxuK4hHcc+MDgvMjIvMTk 1ODwvdGQ+GLFlQSV6jWlwYS ruGWXuqA3zJCLvF0a7UoFvM wU4YRqv T2ZqWKPsaxlbCg76gL5dCdF wMxB9YMbwL7HmffO2UZXmbJ XeYOfwAVA6X08my7R4YIRkA DAwMDA7 iQA9iK8xrKkjbuelaYEngNz hioZnlEslWHyiTZshF307YG QppRlzNuM9WFymMFRzSW31D M88mXJr p1L3mSM1N3CkXWCdolepecs kkEL1ZWYtDDDmuP89wVTzMK xiLh7io1R6l430NAXsCDZvf D09Sm2a xPjfMNAuiYCJoX1rdfnlo6p wlsaxOqCyXBTjNAo8ILf8IY QnlGcqPxGqOSQ5LpR6UUN5d GSbeZ8j jUqprnsegY3jEkt+RmVtYWx aOA07WS07dCKng5H9eYO2R1 EkJPHwljlzgnlkhMF3QFUpA DUwaW47 jXMzRDjfHk7ku9X5u492QWW bGNVrqQ80At0rbMtaXPFdiF HFnR7syzonp9fsjxtgSeVeK DAwMDt0 ODy2WPVupQbhGmFxHPS6RpK 3IPD9vTWcsW2tyOgzjpkflI 9wOyc+KLOtMZBvb9Ysk1LzE W67MR39 M0JiMwaknVHuuRP+PHRhYmx lIHdpZHRoPScxMDAlJyBzdH liVR7fOl7pMQHgDRTnzAyxw HNlOiBj y4pyDSTpWHntRI9jlNkaQ8C szSR6DSCfn8s9Ya77C92yZ2 JvdXA+FRXacPX0hGA7gS5vP zAlIiB2 HMncL789DqDstCExYzdsy8k hu4cvhOo2ObQyDBUnwkRurS acWEE2p5QsRy60W71lFPioC HRoPSIy JENcAURcxBrsyu9vdH1rRf1 +UMVdlTU3nOZ1cR2uAiSfXl D8WTkjM765MgMlkCSpJhzqF 45pY7Lz dXA+JBQeVue2XKQcbPlpMZ6 dkXDeNSafPs6qAEY2LrXwDj BtUUbaZ8FhIZVhfhlhsxirn NQ4HQSb BQMppX66Ng2ydSjkDy9mBMR hLKW8SQRquZSmP6GzpG6qRt EwBVTtAVCrV4UxtGTeNUtdU 246IGxl HgD4FRGqqoWiU1WzGZVbhVs cYgP9p7O0Ky3AdDzoyJExYO 6vPsSwNPp8G8WbBqy1RZZff GerKZ8j sSIvGNraMh8twSsmxEauJB1 pJOXmhsqnu517QyKiv0wqZD LwbLDgSBjuKLF3F22ge9Y2X CMwMDAw DGH9wJU8uU1msBinclkkwHZ mdDsgdmVydGljYWwtYWxpZ2 49AXNymOmeKgEYYde2J4CmV hp0QGWi wZsfHU0azPDnRSkrEb8rnZp bgMlbQY4zUVDdrnzdb212Mr Pem2tuUVJcnNRnOBzxQFT0I 58jl4I7 MBLwYCQvSEI9yCN1dH4yrTm nbjogbGVmdDsgdmVydGljYW xzFFsoL736UBIdbLtiNh3GI he1I2Wq Nzn6EABaoWsbYS0oeEMyIBq bJu6xvZlumBhfFF7pPKQttn tqz813PpQgg0nlKTSibTPjL GltZXM7 P62pk8U7HMFqYKVjQXC8jEK 9zK7vyUrauplgoWNajCxwdl HcbLajAAzsHIgcJ679RVBrv DsnPlBh eWVyOjwvdGQ+LT92pj02T9P hVxgtFgj3EEQnUNB5iOP7xM 3qMIJrZGqss4P6eZB0X2Mvx hPmsq8m b2xs (more content not included)... Normal [facility] Ambulatory Visit Summaryon 0 07-06-2022 Ambulatory Visit Summary DANIELLA BEJARANO :1960 Visit Date:07/06/2022 Ambulatory Visit Instructions Your Diagnosis Bladder cancer OAB (overactive bladder) History of UTI Vaginal atrophy Tests Performed Urnls Dip Stick Auto w/o Microscopy POC 11845 Your Care Team Attending Physician - Reza JAMES, Dina Oconnell Primary Care Physician - BAYRON SINGH MD This Is Your Medications List estradiol topical (Estrace 0.1 mg/g Cream) Contact prescribing physician if questions or concerns aspirin (aspirin 81 mg Oral EC Tab) cephalexin (Keflex 500 mg Cap) ergocalciferol (Vitamin D) furosemide (Lasix 20 mg Tab) letrozole (letrozole 2.5 mg Tab) olmesartan (Benicar 40 mg Tab) oxaprozin (oxaprozin 600 mg Tab) pantoprazole (Protonix 40 mg Tab-DR) solifenacin (Vesicare 10 mg Tab) sulfamethoxazole-trimet hoprim (Bactrim DS 800 mg-160 mg Tab) Procedures Performed Cystoscopy and transurethral resection of bladder tumor (12/22/2021), TURBT - Transurethral resection of bladder tumor (07/26/2021), Cystoscope (07/14/2021), Bilateral prosthetic arthroplasty of knees, Breast surgery, Cholecystectomy, History of hysterectomy., Ts - Tonsillectomy. Discharge Vitals Heart Rate (Peripheral) 74 Respiratory Rate 16 Blood Pressure 98/62 Height 163.0 cm Height 163 cm Weight 115.0 kg Weight 115 kg BMI 43.28 What to do next Scheduled Follow-Up Appointments Monday. 2022 12:30 PM EDT With: Jeff Booth DO Where: [facility] You Need to Schedule the Following Appointments Follow Up with Reza JAMES, ISAIAH Mckeon, URO When: Where: Medications What How Much When Instructions Unchanged estradiol topical (Estrace 0.1 mg/ g Cream) See instructions Apply a pea size amount around the urethra and vagina, 3x a wk for 4 wks, then 2x a week afterwards. Unchanged aspirin (aspirin 81 mg Oral EC Tab) By Mouth Every day Contact prescribing physician if questions or concerns Unchanged cephalexin (Keflex 500 mg Cap) 1 Capsules By Mouth Every day Take 1 tablet morning of procedure. Contact prescribing physician if questions or concerns Unchanged ergocalciferol (Vitamin D) By Mouth Every week Contact prescribing physician if questions or concerns Unchanged furosemide (Lasix 20 mg Tab) By Mouth Every day Contact prescribing physician if questions or concerns Unchanged letrozole (letrozole 2.5 mg Tab) By Mouth Every day Contact prescribing physician if questions or concerns Unchanged olmesartan (Benicar 40 mg Tab) By Mouth Every day Contact prescribing physician if questions or concerns Unchanged oxaprozin (oxaprozin 600 mg Tab) By Mouth Every day Contact prescribing physician if questions or concerns Unchanged pantoprazole (Protonix 40 mg Tab-DR) By Mouth 2 times a day Contact prescribing physician if questions or concerns Unchanged solifenacin (Vesicare 10 mg Tab) 1 Tablets By Mouth Every day Contact prescribing physician if questions or concerns Unchanged sulfamethoxazole-trimet hoprim (Bactrim DS 800 mg-160 mg Tab) 1 Tablets By Mouth Every day Take 1 tablet day before treatment, and then 1 tablet day of treatment after treatment Contact prescribing physician if questions or concerns Test Results Urnls Dip Stick Auto w/o Microscopy POC 07002 (07/06/2022) Bilirubin Urine Dipstick - Negative Blood Urine Dipstick - Trace-intact Glucose Urine Dipstick - Negative Ketones Urine Dipstick - Negative Leukocytes Urine Dipstick - 2+ Moderate Nitrite Urine Dipstick - Positive Protein Urine Dipstick - Negative Specific [place] Urine Dipstick - 1.025 Urine Appearance Urine Dipstick - Cloudy Urine Color Urine Dipstick - Yellow Urobilinogen Urine Dipstick - Normal 0.2-1 EU/dl pH Urine Dipstick - 5.5 Medications and Immunizations Administered Given [place] BCG Live (for intravesical use), 50 mg, IntraVesical. For: Bladder cancer BCG, IntraVesical Allergies Percocet (Headache) Problems Ongoing - Any problem that you are currently receiving treatment for. Abnormal urinary stream Bladder cancer BMI 40.0-44.9, adult Enterococcus faecalis infection Former smoker History of UTI Mixed incontinence OAB (overactive bladder) Urinary tract infection Urothelial carcinoma of bladder Vaginal atrophy Education Materials Bladder Cancer Bladder cancer is an abnormal growth of tissue in the bladder. The bladder is the balloon-like sac in the pelvis. It collects and stores urine that comes from the kidneys through the ureters. The bladder wall is made of layers. If cancer spreads into these layers and through the wall of the bladder, it becomes more difficult to treat. What are the causes? The cause of this condition is not known. What increases the risk? The following factors may make you more likely to develop this condition: ? Smoking. ? Workplace risks (occupational exposures), such as rubber, leather, textile, dyes, chemicals, and paint. ? (more content not included)... Normal [facility] Patient Educationon 07-06-20 Patient Education Oncology Bladder Cancer Bladder cancer is an abnormal growth of tissue in the bladder. The bladder is the balloon-like sac in the pelvis. It collects and stores urine that comes from the kidneys through the ureters. The bladder wall is made of layers. If cancer spreads into these layers and through the wall of the bladder, it becomes more difficult to treat. What are the causes? The cause of this condition is not known. What increases the risk? The following factors may make you more likely to develop this condition: ? Smoking. ? Workplace risks (occupational exposures), such as rubber, leather, textile, dyes, chemicals, and paint. ? Being white. ? Your age. Most people with bladder cancer are over the age of 55. ? Being male. ? Having chronic bladder inflammation. ? Having a personal history of bladder cancer. ? Having a family history of bladder cancer (heredity). ? Having had chemotherapy or radiation therapy to the pelvis. ? Having been exposed to arsenic. What are the signs or symptoms? Initial symptoms of this condition include: ? Blood in the urine. ? Painful urination. ? Frequent bladder or urine infections. ? Increase in urgency and frequency of urination. Advanced symptoms of this condition include: ? Not being able to urinate. ? Low back pain on one side. ? Loss of appetite. ? Weight loss. ? Fatigue. ? Swelling in the feet. ? Bone pain. How is this diagnosed? This condition is diagnosed based on your medical history, a physical exam, urine tests, lab tests, imaging tests, and your symptoms. You may also have other tests or procedures done, such as: ? A narrow tube being inserted into your bladder through your urethra (cystoscopy) in order to view the lining of your bladder for tumors. ? A biopsy to sample the tumor to see if cancer is present. If cancer is present, it will then be staged to determine its severity and extent. Staging is an assessment of: ? The size of the tumor. ? Whether the cancer has spread. ? Where the cancer has spread. It is important to know how deeply into the bladder wall cancer has grown and whether cancer has spread to any other parts of your body. Staging may require blood tests or imaging tests, such as a CT scan, MRI, bone scan, or chest X-ray. How is this treated? Based on the stage of cancer, one treatment or a combination of treatments may be recommended. The most common forms of treatment are: ? Surgery to remove the cancer. Procedures that may be done include transurethral resection and cystectomy. ? Radiation therapy. This is high-energy X-rays or other particles. This is often used in combination with chemotherapy. ? Chemotherapy. During this treatment, medicines are used to kill cancer cells. ? Immunotherapy. This uses medicines to help your own immune system destroy cancer cells. Follow these instructions at home: ? Take klfs-bpu-kjaoyhy and prescription medicines only as told by your health care provider. ? Maintain a healthy diet. Some of your treatments might affect your appetite. ? Consider joining a support group. This may help you learn to cope with the stress of having bladder cancer. ? Tell your cancer care team if you develop side effects. They may be able to recommend ways to relieve them. ? Keep all follow-up visits as told by your health care provider. This is important. Where to find more information ? [employer]: www.cancer.org ? National Cancer [place] (NCI): www.cancer.gov Contact a health care provider if: ? You have symptoms of a urinary tract infection. These include: ? Fever. ? Chills. ? Weakness. ? Muscle aches. ? Abdominal pain. ? Frequent and intense urge to urinate. ? Burning feeling in the bladder or urethra during urination. Get help right away if: ? There is blood in your urine. ? You cannot urinate. ? You have severe pain or other symptoms that do not go away. Summary ? Bladder cancer is an abnormal growth of tissue in the bladder. ? This condition is diagnosed based on your medical history, a physical exam, urine tests, lab tests, imaging tests, and your symptoms. ? Based on the stage of cancer, surgery, chemotherapy, or a combination of treatments may be recommended. ? Consider joining a support group. This may help you learn to cope with the stress of having bladder cancer. This information is not intended to replace advice given to you by your health care provider. Make sure you discuss any questions you have with your health care provider. Document Released: 10/18/2004 Document Revised: 09/28/2018 Document Reviewed: 09/19/2017 [employer] Patient Education ? 2019 [employer]. Normal [facility] Urology Office/Clinic Noteon 07-06-2022 Urology Office/Clinic Note Chief Complaint BCG #3 HPI Staff Daniella is here today for BCG # 3. Previous DX: Bladder cancer, OAB, history of UTI. BP 98/62 pt states she feels fine no complaints. Dysuria: _Denies Incomplete bladder emptying: _Denies Hematuria: _Denies Frequency: _Denies Urgency: _yes Nocturia: _2x Stream: _steady Leaking: _occ Post void dripping: _occ Wearing pads/ Depends: _yes Urge incontinence: _occ Stress incontinence: _Denies Incontinence without Sensory Awareness: _Denies Abdominal pain: _Denies Flank pain: _Denies Sexual complaints: _ History of Present Illness Tests reviewed: reviewed UA I have reviewed the previous health record information and history for this patient from Dr. Cobb. I have reviewed and verified the staff HPI to be accurate for this encounter. There have been no associated fever, chills, flank pain, or blood in the urine. Denies any urinary infections since last encounter. Review of Systems PHQ Score Initial Depression Screen Score: 0 ROS - Provider Constitutional: denies weight loss, denies hot flashes. Eyes: denies eye problems. Gastrointestinal: denies nausea, denies vomiting. Cardiovascular: denies chest pain or angina. Integumentary: no dryness Musculoskeletal: denies musculoskeletal symptoms. ENMT: denies otolaryngeal symptoms. Respiratory: no shortness of breath. Heme/Lymph: denies easy bleeding tendency, denies easy bruising tendency. Psychiatric: no confusion, no anxiety. Genitourinary: See HPI. Physical Exam Vitals & Measurements HR: 74(Peripheral) RR: 16 BP: 98/62 HT: 163.0 cm HT: 163 cm WT: 115.0 kg WT: 115 kg BMI: 43.28 General Appearance: alert , no acute distress, well nourished, well developed female. Genitourinary: bladder nonpalpable, no flank pain. Procedure The patient was placed in the appropriate position and under sterile conditions, the urethra is catheterized with a 14 Fr straight catheter and the bladder is emptied. 30 cc of sterile 0.9 NS with one vial of ELODIA BCG was placed into the bladder and the straight catheter was removed. The patient will hold the solution in the bladder for two hours. The patient should call the office or present to the Emergency Department for development of fever, chills, or flu-like symptoms. Symptoms such as urinary frequency, urgency, and other bladder irritation symptoms are expected. Assessment/Plan 1. Bladder cancer (C67.8: Malignant neoplasm of overlapping sites of bladder) BCG #3 of 3 today without complications, pt tolerated well. - 3 month surveillance cysto in July of this year CTU 07/01/22 - negative for filling defects 2. OAB (overactive bladder) (N32.81: Overactive bladder) Continues taking VESIcare 10mg qd. Well controlled 3. History of UTI (Z87.440: Personal history of urinary (tract) infections) Urine today shows trace intact blood, positive nitrates, and moderate leuks. Asx, took prophy Bactrim. Will send for culture, will treat if it's only resistant to Bactrim. 4. Vaginal atrophy (N95.2: Postmenopausal atrophic vaginitis) Skin fissures and atrophy on previous exam. Improving Continue Estrace cream Follow-up With When Contact Information Reza JAMES, Dina Oconnell, URL, URO Additional Instructions: July [facility] Patient Education Bladder Cancer I, Pratibha Rodriguez, personally scribed for Dr. Cobb on 07/06/2022 10:33:06. . Documentation recorded by the scribe, Vivian Rodriguez, accurately reflects the services(s) I performed and decisions made by me. Authenticated by Dr. Cobb on 07/06/2022 11:31:31. Problem List/Past Medical History Ongoing Abnormal urinary stream Bladder cancer BMI 40.0-44.9, adult Enterococcus faecalis infection Former smoker History of UTI Mixed incontinence OAB (overactive bladder) Urinary tract infection Urothelial carcinoma of bladder Vaginal atrophy Historical No qualifying data Procedure/Surgical History Cystoscopy and transurethral resection of bladder tumor (12/22/2021), TURBT - Transurethral resection of bladder tumor (07/26/2021), Cystoscope (07/14/2021), Bilateral prosthetic arthroplasty of knees, Breast surgery, Cholecystectomy, History of hysterectomy., Ts - Tonsillectomy. Medications aspirin 81 mg Oral EC Tab, Oral, Daily Bactrim DS 800 mg-160 mg Tab, 1 tab(s), Oral, Daily, 1 refills Benicar 40 mg Tab, Oral, Daily Estrace 0.1 mg/g Cream, See Instructions, 2 refills Keflex 500 mg Cap, 500 mg= 1 cap(s), Oral, Daily, Not taking Lasix 20 mg Tab, Oral, Daily letrozole 2.5 mg Tab, Oral, Daily oxaprozin 600 mg Tab, Oral, Daily Protonix 40 mg Tab-DR, Oral, BID [place] BCG Live (for intravesical use), 50 mg, IntraVesical, Once Vesicare 10 mg Tab, 10 mg= 1 tab(s), Oral, Daily, 3 refills Vitamin D, Oral, qWeek Allergies Percocet (Headache) Social History Alcohol - Denies Alcohol Use, 07/07/2021 Tobacco Former smoker, quit more than 30 days ago To (more content not included)... Normal [facility] Comment on above: Result Comment: Elec tronically Signed By: Reza JAMES, Dina Oconnell\.br\Date and Time Signed: 07/06/22 11:31 EDT\.br\Electronically Co-Signed By: Pratibha Rodriguez\.br\Date and Time Co-Signed: 07/06/22 10:33 EDT\.br\Electronically Co-Signed By: Pratibha Rodriguez\.br\Date and Time Co-Signed: 07/06/22 10:34 EDT BUNon 07-01-2022 Urea nitrogen [Mass/Vol] 14.0 mg/dL Normal 7.0-18.0 [facility] Comment on above: Performed By: #### C YTO #### [facility] [address] [place] [address] Dr. Troy Jeter CREATININEon 07-01-2022 Creatinine [Mass/Vol] 1.04 mg/dL Critically high 0.55-1.[address] [facility] Comment on above: Performed By: #### C YTO #### [facility] [address] [address] [address] Troy Jeter EGFR-AF [place] >60 Normal >=60 [facility] Comment on above: Performed By: #### C YTO #### [facility] [address] [place] [address] Dr. Troy Jeter EGFR-NON AF [place] 53 mL/min/1.73m2 Critically low >=[address] [facility] Comment on above: Performed By: #### C YTO #### [facility] [address] [place] [address] ABD/PELV WO W CONon 07-01 CT ABD/PELV WO W CON EXAMINATION: CT ABD/PELV WO W CON, 07/01/2022 10:18 AM EDT HISTORY: Malignant neoplasm, overlapping lesion of bladder COMPARISON: 03/28/2022 TECHNIQUE: CT scan of the abdomen and pelvis was performed without and with IV contrast. CT dose reduction technique was used, including Automated Exposure Control. FINDINGS: LUNG BASES: No visible pulmonary or pleural disease. LIVER: No enlargement, atrophy, abnormal density, or significant focal lesion. BILIARY: Surgical clips from cholecystectomy PANCREAS: No lesion, fluid collection, ductal dilatation, or atrophy. SPLEEN: No enlargement or focal lesion. ADRENALS: No mass or enlargement. KIDNEYS: No mass, obstruction, or calcification. Bilateral cortical cysts BOWEL/MESENTERY: Moderate colonic diverticulosis. Nonobstructive bowel gas pattern. Normal appendix. AORTA/VASCULAR: No aortic aneurysm. Moderate atherosclerosis RETROPERITONEUM: No mass or adenopathy. LYMPH NODES: No adenopathy. URINARY BLADDER: Nondistended urinary bladder limiting the exam. No definite abnormality PELVIC ORGANS: Hysterectomy. ABDOMINAL WALL: No mass or hernia. BONES: No bony lesion or fracture. OTHER: Negative. IMPRESSION: No acute intraperitoneal abnormality Electronically authenticated by: SPARKLE RODRIGUEZ Date: 2022-07-01 11:40 Normal [facility] Ambulatory Visit Summaryon 0 06-29-2022 Ambulatory Visit Summary DANIELLA BEJARANO :1960 Visit Date:06/29/2022 Ambulatory Visit Instructions Your Diagnosis Bladder cancer OAB (overactive bladder) History of UTI Vaginal atrophy Tests Performed Urnls Dip Stick Auto w/o Microscopy POC [id number] Your Care Team Attending Physician - Reza JAMES, Dina Oconnell Primary Care Physician - BAYRON SINGH MD This Is Your Medications List Contact prescribing physician if questions or concerns aspirin (aspirin 81 mg Oral EC Tab) cephalexin (Keflex 500 mg Cap) ergocalciferol (Vitamin D) estradiol topical (Estrace 0.1 mg/g Cream) furosemide (Lasix 20 mg Tab) letrozole (letrozole 2.5 mg Tab) olmesartan (Benicar 40 mg Tab) oxaprozin (oxaprozin 600 mg Tab) pantoprazole (Protonix 40 mg Tab-DR) solifenacin (Vesicare 10 mg Tab) sulfamethoxazole-trimet hoprim (Bactrim DS 800 mg-160 mg Tab) Procedures Performed Cystoscopy and transurethral resection of bladder tumor (12/22/2021), TURBT - Transurethral resection of bladder tumor (07/26/2021), Cystoscope (07/14/2021), Bilateral prosthetic arthroplasty of knees, Breast surgery, Cholecystectomy, History of hysterectomy., Ts - Tonsillectomy. What to do next Scheduled Follow-Up Appointments Monday 10:15 AM EDT With: Reza JAMES, Dina Oconnell Where: [facility] Patient Educationon 06-29-20 Patient Education Oncology Bladder Cancer Bladder cancer is an abnormal growth of tissue in the bladder. The bladder is the balloon-like sac in the pelvis. It collects and stores urine that comes from the kidneys through the ureters. The bladder wall is made of layers. If cancer spreads into these layers and through the wall of the bladder, it becomes more difficult to treat. What are the causes? The cause of this condition is not known. What increases the risk? The following factors may make you more likely to develop this condition: ? Smoking. ? Workplace risks (occupational exposures), such as rubber, leather, textile, dyes, chemicals, and paint. ? Being white. ? Your age. Most people with bladder cancer are over the age of 55. ? Being male. ? Having chronic bladder inflammation. ? Having a personal history of bladder cancer. ? Having a family history of bladder cancer (heredity). ? Having had chemotherapy or radiation therapy to the pelvis. ? Having been exposed to arsenic. What are the signs or symptoms? Initial symptoms of this condition include: ? Blood in the urine. ? Painful urination. ? Frequent bladder or urine infections. ? Increase in urgency and frequency of urination. Advanced symptoms of this condition include: ? Not being able to urinate. ? Low back pain on one side. ? Loss of appetite. ? Weight loss. ? Fatigue. ? Swelling in the feet. ? Bone pain. How is this diagnosed? This condition is diagnosed based on your medical history, a physical exam, urine tests, lab tests, imaging tests, and your symptoms. You may also have other tests or procedures done, such as: ? A narrow tube being inserted into your bladder through your urethra (cystoscopy) in order to view the lining of your bladder for tumors. ? A biopsy to sample the tumor to see if cancer is present. If cancer is present, it will then be staged to determine its severity and extent. Staging is an assessment of: ? The size of the tumor. ? Whether the cancer has spread. ? Where the cancer has spread. It is important to know how deeply into the bladder wall cancer has grown and whether cancer has spread to any other parts of your body. Staging may require blood tests or imaging tests, such as a CT scan, MRI, bone scan, or chest X-ray. How is this treated? Based on the stage of cancer, one treatment or a combination of treatments may be recommended. The most common forms of treatment are: ? Surgery to remove the cancer. Procedures that may be done include transurethral resection and cystectomy. ? Radiation therapy. This is high-energy X-rays or other particles. This is often used in combination with chemotherapy. ? Chemotherapy. During this treatment, medicines are used to kill cancer cells. ? Immunotherapy. This uses medicines to help your own immune system destroy cancer cells. Follow these instructions at home: ? Take vwvk-gra-kckdqti and prescription medicines only as told by your health care provider. ? Maintain a healthy diet. Some of your treatments might affect your appetite. ? Consider joining a support group. This may help you learn to cope with the stress of having bladder cancer. ? Tell your cancer care team if you develop side effects. They may be able to recommend ways to relieve them. ? Keep all follow-up visits as told by your health care provider. This is important. Where to find more information ? [place] [employer]: www.cancer.org ? National Cancer [place] (NCI): www.cancer.gov Contact a health care provider if: ? You have symptoms of a urinary tract infection. These include: ? Fever. ? Chills. ? Weakness. ? Muscle aches. ? Abdominal pain. ? Frequent and intense urge to urinate. ? Burning feeling in the bladder or urethra during urination. Get help right away if: ? There is blood in your urine. ? You cannot urinate. ? You have severe pain or other symptoms that do not go away. Summary ? Bladder cancer is an abnormal growth of tissue in the bladder. ? This condition is diagnosed based on your medical history, a physical exam, urine tests, lab tests, imaging tests, and your symptoms. ? Based on the stage of cancer, surgery, chemotherapy, or a combination of treatments may be recommended. ? Consider joining a support group. This may help you learn to cope with the stress of having bladder cancer. This information is not intended to replace advice given to you by your health care provider. Make sure you discuss any questions you have with your health care provider. Document Released: 10/18/2004 Document Revised: 09/28/2018 Document Reviewed: 09/19/2017 [employer] Patient Education ? 2019 [employer]. [facility] Urology Office/Clinic Noteon 06-29-2022 Urology Office/Clinic Note HPI Staff Daniella is here today for BCG #2. Previous DX: Bladder cancer, OAB, history of UTI. Dysuria: _denies Incomplete bladder emptying: _denies Hematuria: _denies Frequency: _denies Urgency: _yes Nocturia: _2x Stream: _steady Leaking: _a little Post void dripping: _a little Wearing pads/ Depends: _yes Urge incontinence: _yes at times Stress incontinence: _denies Incontinence without Sensory Awareness: _denies Abdominal pain: _denies Flank pain: _denies Sexual complaints: _ History of Present Illness Tests reviewed: reviewed UA I have reviewed the previous health record information and history for this patient from Dr. Cobb I have reviewed and verified the staff HPI to be accurate for this encounter. There have been no associated fever, chills, flank pain, or blood in the urine. Denies any urinary infections since last encounter. Review of Systems ROS - Provider Constitutional: denies weight loss, denies hot flashes. Eyes: denies eye problems. Gastrointestinal: denies nausea, denies vomiting. Cardiovascular: denies chest pain or angina. Integumentary: no dryness Musculoskeletal: denies musculoskeletal symptoms. ENMT: denies otolaryngeal symptoms. Respiratory: no shortness of breath. Heme/Lymph: denies easy bleeding tendency, denies easy bruising tendency. Psychiatric: no confusion, no anxiety. Genitourinary: see HPI Physical Exam General Appearance: alert , no acute distress, well nourished, well developed female. Genitourinary: bladder nonpalpable, no flank pain. Assessment/Plan 1. Bladder cancer (C67.8: Malignant neoplasm of overlapping sites of bladder) Pt received BCG #2 of #3 today w/out any complications. The patient was placed in the appropriate position and under sterile conditions, the urethra is catheterized with a 14 Fr straight catheter and the bladder is emptied. 30 cc of sterile 0.9 NS with one vial of ELODIA BCG was placed into the bladder and the straight catheter was removed. The patient will hold the solution in the bladder for two hours, turning every fifteen minutes 1/4 turn to allow coating of the bladder surface. The patient should call the office or present to the Emergency Department for development of fever, chills, or flu-like symptoms. Symptoms such as urinary frequency, urgency, and other bladder irritation symptoms are expected. 2. OAB (overactive bladder) (N32.81: Overactive bladder) pt Currently taking VESIcare 10mg qd. Well controlled 3. History of UTI (Z87.440: Personal history of urinary (tract) infections) UA today shows Moderate Blood and Moderate leuks, asymptomatic bacteruria. Took prophy abx 4. Vaginal atrophy (N95.2: Postmenopausal atrophic vaginitis) Skin fissures and atrophy on exam last time. Was symptomatic- improved Also getting over yeast infection - on topical treatment - improving Pt started estradiol topical Estrace cream. Risks/benefits discussed Follow-up With When Contact Information Reza JAMES, Dina Oconnell, URL, URO In 1 week Additional Instructions: BCG #3 Patient Education Bladder Cancer Valarie Zuniga , personally scribed for Dr. Cobb on 06/29/2022 08:07:46. . Documentation recorded by the scribValarie alejandro, accurately reflects the services(s) I performed and decisions made by me. Authenticated by Dr. Cobb on 06/29/2022 08:14:18. Problem List/Past Medical History Ongoing Abnormal urinary stream Bladder cancer BMI 40.0-44.9, adult Enterococcus faecalis infection Former smoker History of UTI Mixed incontinence OAB (overactive bladder) Urinary tract infection Urothelial carcinoma of bladder Vaginal atrophy Historical No qualifying data Procedure/Surgical History Cystoscopy and transurethral resection of bladder tumor (12/22/2021), TURBT - Transurethral resection of bladder tumor (07/26/2021), Cystoscope (07/14/2021), Bilateral prosthetic arthroplasty of knees, Breast surgery, Cholecystectomy, History of hysterectomy., Ts - Tonsillectomy. Medications aspirin 81 mg Oral EC Tab, Oral, Daily Bactrim DS 800 mg-160 mg Tab, 1 tab(s), Oral, Daily, 1 refills, Not taking Benicar 40 mg Tab, Oral, Daily Estrace 0.1 mg/g Cream, See Instructions, 2 refills Keflex 500 mg Cap, 500 mg= 1 cap(s), Oral, Daily Lasix 20 mg Tab, Oral, Daily letrozole 2.5 mg Tab, Oral, Daily oxaprozin 600 mg Tab, Oral, Daily Protonix 40 mg Tab-DR, Oral, BID [place] BCG Live (for intravesical use), 50 mg, IntraVesical, Once Vesicare 10 mg Tab, 10 mg= 1 tab(s), Oral, Daily, 3 refills Vitamin D, Oral, qWeek Allergies Percocet (Headache) Social History Alcohol - Denies Alcohol Use, 07/07/2021 Tobacco Former smoker, quit more than 30 days ago Tobacco Use:. Never Smokeless Tobacco Use:. Cigarettes, 02/23/2022 Family History Anemia: Father. Arthritis: Mother and Father. Hypertension: Mother, Father and Brother. Prostate cancer: Brother. Immunizations Vacc (more content not included)... Normal [facility] Comment on above: Result Comment: Elec tronically Signed By: Dina Cobb MD\.br\Date and Time Signed: 06/29/22 08:14 EDT\.br\Electronically Co-Signed By: Valarie Rios\.br\Date and Time Co-Signed: 06/29/22 08:08 EDT XR CHEST 2 Von 05-26-2022 SARS-CoV-2 (COVID-19) RNA BRANDEN+probe Ql (Unsp spec) EXAM: XR CHEST 2 V HISTORY: Dyspnea post Covid-19 COMPARISON: 12/26/2021 TECHNIQUE: Upright PA and lateral chest x-ray FINDINGS: The heart is not enlarged and the vasculature is not distended. No acute infiltrate, effusion or pneumothorax is identified. The osseous structures are grossly intact. IMPRESSION: No acute infiltrate or evidence of cardiac decompensation. The overall appearance of the chest is unchanged. Electronically authenticated by: FRANNY ZEE Date: 2022-05-26 13:26 Normal [facility] PROTIMEon 05-04-2022 INR Coag (PPP) [Relative time] 1.00 {INR} Normal [facility] Comment on above: Performed By: #### C YTO #### [facility] [address] [address] [address] Troy Jeter INR GUIDELINES SEE BELOW Normal [facility] Comment on above: Result Comment: LORENA RED INR: 2.0 - 3.0 CONDITIONS NOT LISTED BELOW 2.5 - 3.5 FOR PROSTHETIC HEART VALVE REPLACEMENT 2.5 - 3.5 RECURRENT THROMBOSIS Performed By: #### C YTO #### [facility] [address] [place] [address] Dr. Troy Jeter PT Coag (PPP) [Time] 10.8 s Normal 9.0-11.[address] [facility] Comment on above: Performed By: #### C YTO #### [facility] [address] [address] [address] Troy Jeter PTTon 05-04-2022 aPTT Coag (Bld) [Time] 24.5 s Normal 22.3-36.2 [facility] Comment on above: Performed By: #### C YTO #### [facility] [address] [place] [address] Dr. Troy Jeter CYTOLOGYon 04-27-2022 SENT TO REF LAB 04/28/22 Normal [facility] Comment on above: Performed By: #### C YTO #### [facility] [address] [place] [address] Dr. Troy Jeter MG MAMM SCREEN LT 3D CADon 0 04-11-2022 MG MAMM SCREEN LT 3D CAD Patient: DANIELLA BEJARANO Exam Date: 04/11/2022 : 1960 Gender:F Ordering : DR BAYRON SINGH . Admission #: [id number] Family : Order #: [id number] CLICK HERE TO VIEW EXAM RADIOLOGY REPORT PROCEDURE: MAMMOGRAM SCREENING LEFT 3D CAD COMPARISON: MG MAMM SCREEN LT 3D CAD, 03/26/2021. MG MAMM LT DIAG W CAD, 03/26/2020. INDICATIONS: Screening mammography Calculator Name NCI Breast Cancer Risk Assessment Tool 5 Year Breast Cancer Risk n/a% Lifetime Breast Cancer Risk n/a% Personal Breast Cancer Yes, Invasive CA of Right, 56 Personal Ovarian Cancer No Treatments Right mastectomy Family Cancers Aunt-maternal with breast cancer at age 70; Aunt-paternal with breast cancer at age 70. LOCATION: [facility] BREAST COMPOSITION: Scattered areas fibroglandular density. FINDINGS: DIAGNOSTIC CATEGORY 1--NEGATIVE. LEFT BREAST: No significant suspicious finding. No significant change has occurred. RECOMMENDATIONS: ROUTINE MAMMOGRAM AND CLINICAL EVALUATION IN 12 MONTHS. PLEASE NOTE: A NORMAL MAMMOGRAM DOES NOT EXCLUDE THE POSSIBILITY OF BREAST CANCER. A CLINICALLY SUSPICIOUS PALPABLE LUMP SHOULD BE BIOPSIED. Dictated by: Long Valles M.D. on 04/11/2022 at 13:42 Approved by: Long Valles M.D. on 04/11/2022 at 13:44 [address] [facility] CBC AUTO DIFFon 03-31-2022 BASO # 0.0 103/ul Normal 0.0-0.[address] [facility] Comment on above: Performed By: #### C BC #### [facility] [address] [address] [address] Troy Jeter Basophils/100 WBC (Bld) 0.0 % Critically low 0.2-2.[address] [facility] Comment on above: Performed By: #### C BC #### [facility] [address] [address] [address] Troy Jeter EO # 0.1 103/ul Normal 0.0-0.[address] [facility] Comment on above: Performed By: #### C BC #### [facility] [address] [address] [address] Troy Jeter Eosinophils/100 WBC (Bld) 2.1 % Normal 0.9-7.0 [facility] Comment on above: Performed By: #### C BC #### [facility] [address] [place] [address] Dr. Troy Jeter Erythrocyte distribution width (RBC) [Ratio] 14.3 % Normal 11.0-15.0 [facility] Comment on above: Performed By: #### C BC #### [facility] [address] [place] [address] Dr. Troy Jeter Hematocrit (Bld) [Volume fraction] 31.8 % Critically low 36.0-48.0 [facility] Comment on above: Performed By: #### C BC #### [facility] [address] [place] [address] Dr. Troy Jeter Hemoglobin (Bld) [Mass/Vol] 9.7 g/dL Critically low 12.0-16.0 [facility] Comment on above: Performed By: #### C BC #### [facility] [address] [place] [address] Dr. Troy Jeter IG # 0.01 10e3/ul Normal 0.00-0.03 [facility] Comment on above: Performed By: #### C BC #### [facility] [address] [place] [address] Dr. Troy Jeter IG % 0.3 % Normal 0.0-0.5 [facility] Comment on above: Performed By: #### C BC #### [facility] [address] [place] [address] Dr. Troy Jeter LYMPH # 0.7 103/ul Critically low 1.2-3.8 [facility] Comment on above: Performed By: #### C BC #### [facility] [address] [place] [address] Dr. Troy Jeter Lymphocytes/100 WBC (Bld) 25.3 % Normal 20.5-60.[address] [facility] Comment on above: Performed By: #### C BC #### [facility] [address] [place] [address] Dr. Troy Jeter MANUAL DIFF REQ NO Normal [facility] Comment on above: Performed By: #### C BC #### [facility] [address] [place] [address] Dr. Troy Jeter MCH (RBC) [Entitic mass] 26.9 pg Normal 26.7-34.0 [facility] Comment on above: Performed By: #### C BC #### [facility] [address] [place] [address] Dr. Troy Jeter MCHC (RBC) [Mass/Vol] 30.5 g/dL Normal 29.9-35.2 [facility] Comment on above: Performed By: #### C BC #### [facility] [address] [place] [address] Dr. Troy Jeter MCV (RBC) [Entitic vol] 88.1 fL Normal 81.0-99.0 [facility] Comment on above: Performed By: #### C BC #### [facility] [address] [place] [address] Dr. Troy Jeter MONO # 0.4 103/ul Normal 0.3-0.8 [facility] Comment on above: Performed By: #### C BC #### [facility] [address] [place] [address] Dr. Troy Jeter Monocytes/100 WBC (Bld) 14.2 % Critically high 1.7-12.0 [facility] Comment on above: Performed By: #### C BC #### [facility] [address] [place] [address] Dr. Troy Jeter NEUT # 1.7 103/ul Normal 1.4-6.[address] [facility] Comment on above: Performed By: #### C BC #### [facility] [address] [place] [address] Dr. Troy Jeter Neutrophils/100 WBC (Bld) 58.1 % Normal 43.0-75.[address] [facility] Comment on above: Performed By: #### C BC #### [facility] [address] [place] [address] Dr. Troy Jeter Platelet mean volume (Bld) [Entitic vol] 9.3 fL Critically low 9.5-13.[address] [facility] Comment on above: Performed By: #### C BC #### [facility] [address] [place] [address] Dr. Troy Jeter PLT 134 103/ul Critically low 150-450 [facility] Comment on above: Performed By: #### C BC #### [facility] [address] [address] [address] Troy Jeter RBC 3.61 106/ul Critically low 4.20-5.40 [facility] Comment on above: Performed By: #### C BC #### [facility] [address] [address] [address] Troy Jeter WBC 2.9 103/ul Critically low 4.0-11.0 [facility] Comment on above: Performed By: #### C BC #### [facility] [address] [place] [address] Dr. Troy Jeter PROF 14(COMP METB)on 022 Albumin [Mass/Vol] 2.7 g/dL Critically low 3.4-5.0 [facility] Comment on above: Performed By: #### C MP #### [facility] [address] [place] [address] Dr. Troy Jeter Albumin/Globulin [Mass ratio] 0.9 {ratio} Normal [facility] Comment on above: Performed By: #### C MP #### [facility] [address] [place] [address] Dr. Troy Jeter ALP [Catalytic activity/Vol] 51 U/L Normal 46-116 [facility] Comment on above: Performed By: #### C MP #### [facility] [address] [place] [address] Dr. Troy Jeter ALT [Catalytic activity/Vol] 57 U/L Normal 14-59 [facility] Comment on above: Performed By: #### C MP #### [facility] [address] [place] [address] Dr. Troy Jeter Anion gap [Moles/Vol] 16.1 mmol/L Normal [facility] Comment on above: Performed By: #### C MP #### [facility] [address] [place] [address] Dr. Troy Jeter AST [Catalytic activity/Vol] 69 U/L Critically high 15-37 [facility] Comment on above: Performed By: #### C MP #### [facility] [address] [place] [address] Dr. Troy Jeter Bilirubin [Mass/Vol] 0.2 mg/dL Normal 0.2-1.0 [facility] Comment on above: Performed By: #### C MP #### [facility] [address] [place] [address] Dr. Troy Jeter Calcium [Mass/Vol] 8.1 mg/dL Critically low 8.5-10.1 [facility] Comment on above: Performed By: #### C MP #### [facility] [address] [place] [address] Dr. Troy Jeter Chloride [Moles/Vol] 112 mmol/L Critically high 98-107 [facility] Comment on above: Performed By: #### C MP #### [facility] [address] [place] [address] Dr. Troy Jeter CO2 [Moles/Vol] 18.3 mmol/L Critically low 21.0-32.0 [facility] Comment on above: Performed By: #### C MP #### [facility] [address] [place] [address] Dr. Troy Jeter Creatinine [Mass/Vol] 0.89 mg/dL Normal 0.55-1.02 [facility] Comment on above: Performed By: #### C MP #### [facility] [address] [place] [address] Dr. Troy Jeter EGFR-AF [place] >60 Normal >=60 [facility] Comment on above: Performed By: #### C MP #### [facility] [address] [place] [address] Dr. Troy Jeter EGFR-NON AF [place] >60 Normal >=60 [facility] Comment on above: Performed By: #### C MP #### [facility] [address] [place] [address] Dr. Troy Jeter Globulin (S) [Mass/Vol] 3.0 g/dL Normal [facility] Comment on above: Performed By: #### C MP #### [facility] [address] [address] [address] Troy Jeter Glucose [Mass/Vol] 80 mg/dL Normal 74-106 [facility] Comment on above: Performed By: #### C MP #### [facility] [address] [address] [address] Troy Jeter Potassium [Moles/Vol] 3.4 mmol/L Critically low 3.5-5.1 [facility] Comment on above: Performed By: #### C MP #### [facility] [address] [address] [address] Troy Jeter Protein [Mass/Vol] 5.7 g/dL Critically low 6.4-8.2 [facility] Comment on above: Performed By: #### C MP #### [facility] [address] [address] [address] Troy Jeter Sodium [Moles/Vol] 143 mmol/L Normal 136-145 [facility] Comment on above: Performed By: #### C MP #### [facility] [address] [place] [address] Dr. Troy Jeter Urea nitrogen [Mass/Vol] 11.0 mg/dL Normal 7.0-18.0 [facility] Comment on above: Performed By: #### C MP #### [facility] [address] [address] [address] Troy Jeter Urea nitrogen/Creatinine [Mass ratio] 12.4 mg/mg Normal [facility] Comment on above: Performed By: #### C MP #### [facility] [address] [address] [address] Troy Jeter CBC AUTO DIFFon 03-30-2022 BASO # 0.0 103/ul Normal 0.0-0.1 [facility] Comment on above: Performed By: #### C BC #### [facility] [address] [address] [address] Troy Jeter Basophils/100 WBC (Bld) 0.3 % Normal 0.2-2.0 [facility] Comment on above: Performed By: #### C BC #### [facility] [address] [address] [address] Troy Jeter EO # 0.0 103/ul Normal 0.0-0.7 [facility] Comment on above: Performed By: #### C BC #### [facility] [address] [place] [address] Dr. Troy Jeter Eosinophils/100 WBC (Bld) 1.2 % Normal 0.9-7.0 [facility] Comment on above: Performed By: #### C BC #### [facility] [address] [place] [address] Dr. Troy Jeter Erythrocyte distribution width (RBC) [Ratio] 14.1 % Normal 11.0-15.0 [facility] Comment on above: Performed By: #### C BC #### [facility] [address] [place] [address] Dr. Troy Jeter Hematocrit (Bld) [Volume fraction] 32.5 % Critically low 36.0-48.0 [facility] Comment on above: Performed By: #### C BC #### [facility] [address] [place] [address] Dr. Troy Jeter Hemoglobin (Bld) [Mass/Vol] 9.8 g/dL Critically low 12.0-16.0 [facility] Comment on above: Performed By: #### C BC #### [facility] [address] [place] [address] Dr. Troy Jeter IG # 0.01 10e3/ul Normal 0.00-0.03 [facility] Comment on above: Performed By: #### C BC #### [facility] [address] [place] [address] Dr. Troy Jeter IG % 0.3 % Normal 0.0-0.5 [facility] Comment on above: Performed By: #### C BC #### [facility] [address] [place] [address] Dr. Troy Jeter LYMPH # 0.6 103/ul Critically low 1.2-3.8 [facility] Comment on above: Performed By: #### C BC #### [facility] [address] [place] [address] Dr. Troy Jeter Lymphocytes/100 WBC (Bld) 18.4 % Critically low 20.5-60.0 [facility] Comment on above: Performed By: #### C BC #### [facility] [address] [place] [address] Dr. Troy Jeter MANUAL DIFF REQ NO Normal [facility] Comment on above: Performed By: #### C BC #### [facility] [address] [place] [address] Dr. Troy Jeter MCH (RBC) [Entitic mass] 27.0 pg Normal 26.7-34.0 [facility] Comment on above: Performed By: #### C BC #### [facility] [address] [place] [address] Dr. Troy Jeter MCHC (RBC) [Mass/Vol] 30.2 g/dL Normal 29.9-35.2 [facility] Comment on above: Performed By: #### C BC #### [facility] [address] [place] [address] Dr. Troy Jeter MCV (RBC) [Entitic vol] 89.5 fL Normal 81.0-99.0 [facility] Comment on above: Performed By: #### C BC #### [facility] [address] [place] [address] Dr. Troy Jteer MONO # 0.4 103/ul Normal 0.3-0.8 [facility] Comment on above: Performed By: #### C BC #### [facility] [address] [place] [address] Dr. Troy Jeter Monocytes/100 WBC (Bld) 12.7 % Critically high 1.7-12.[address] [facility] Comment on above: Performed By: #### C BC #### [facility] [address] [place] [address] Dr. Troy Jeter NEUT # 2.2 103/ul Normal 1.4-6.[address] [facility] Comment on above: Performed By: #### C BC #### [facility] [address] [address] [address] Troy Jeter Neutrophils/100 WBC (Bld) 67.1 % Normal 43.0-75.0 [facility] Comment on above: Performed By: #### C BC #### [facility] [address] [address] [address] Troy Jeter Platelet mean volume (Bld) [Entitic vol] 9.7 fL Normal 9.5-13.5 [facility] Comment on above: Performed By: #### C BC #### [facility] [address] [address] [address] Troy Jeter PLT 140 103/ul Critically low 150-450 [facility] Comment on above: Performed By: #### C BC #### [facility] [address] [address] [address] Troy Jeter RBC 3.63 106/ul Critically low 4.20-5.40 [facility] Comment on above: Performed By: #### C BC #### [facility] [address] [address] [address] Troy Jeter WBC 3.3 103/ul Critically low 4.0-11.0 [facility] Comment on above: Performed By: #### C BC #### [facility] [address] [address] [address] Troy Jeter PROF 14(COMP METB)on 022 Albumin [Mass/Vol] 2.8 g/dL Critically low 3.4-5.0 [facility] Comment on above: Performed By: #### C BC #### [facility] [address] [address] [address] Troy Jeter Albumin/Globulin [Mass ratio] 0.9 {ratio} Normal [facility] Comment on above: Performed By: #### C BC #### [facility] [address] [address] [address] Troy Jeter ALP [Catalytic activity/Vol] 50 U/L Normal 46-116 [facility] Comment on above: Performed By: #### C BC #### [facility] [address] [address] [address] Troy Jeter ALT [Catalytic activity/Vol] 58 U/L Normal 14-[address] [facility] Comment on above: Performed By: #### C BC #### [facility] [address] [address] [address] Troy Jeter Anion gap [Moles/Vol] 17.3 mmol/L Normal [facility] Comment on above: Performed By: #### C BC #### [facility] [address] [address] [address] Troy Jeter AST [Catalytic activity/Vol] 78 U/L Critically high 15-37 [facility] Comment on above: Performed By: #### C BC #### [facility] [address] [place] [address] Dr. Troy Jeter Bilirubin [Mass/Vol] 0.2 mg/dL Normal 0.2-1.0 [facility] Comment on above: Performed By: #### C BC #### [facility] [address] [place] [address] Dr. Troy Jeter Calcium [Mass/Vol] 8.0 mg/dL Critically low 8.5-10.1 Th [facility] Comment on above: Performed By: #### C BC #### [facility] [address] [place] [address] Dr. Troy Jeter Chloride [Moles/Vol] 112 mmol/L Critically high 98-107 [facility] Comment on above: Performed By: #### C BC #### [facility] [address] [place] [address] Dr. Troy Jeter CO2 [Moles/Vol] 17.0 mmol/L Critically low 21.0-32.[address] [facility] Comment on above: Performed By: #### C BC #### [facility] [address] [place] [address] Dr. Troy Jeter Creatinine [Mass/Vol] 0.93 mg/dL Normal 0.55-1.02 [facility] Comment on above: Performed By: #### C BC #### [facility] [address] [address] [address] Troy Jeter EGFR-AF [place] >60 Normal >=60 [facility] Comment on above: Performed By: #### C BC #### [facility] [address] [address] [address] Troy Jeter EGFR-NON AF [place] >60 Normal >=60 [facility] Comment on above: Performed By: #### C BC #### [facility] [address] [address] [address] Troy Jeter Globulin (S) [Mass/Vol] 3.1 g/dL Normal [facility] Comment on above: Performed By: #### C BC #### [facility] [address] [place] [address] Dr. Troy Jeter Glucose [Mass/Vol] 77 mg/dL Normal 74-106 [facility] Comment on above: Performed By: #### C BC #### [facility] [address] [place] [address] Dr. Troy Jeter Potassium [Moles/Vol] 3.3 mmol/L Critically low 3.5-5.1 [facility] Comment on above: Performed By: #### C BC #### [facility] [address] [place] [address] Dr. Troy Jeter Protein [Mass/Vol] 5.9 g/dL Critically low 6.4-8.2 Th [facility] Comment on above: Performed By: #### C BC #### [facility] [address] [place] [address] Dr. Troy Jeter Sodium [Moles/Vol] 143 mmol/L Normal 136-145 [facility] Comment on above: Performed By: #### C BC #### [facility] [address] [place] [address] Dr. Troy Jeter Urea nitrogen [Mass/Vol] 12.0 mg/dL Normal 7.0-18.0 [facility] Comment on above: Performed By: #### C BC #### [facility] [address] [place] [address] Dr. Troy Jeter Urea nitrogen/Creatinine [Mass ratio] 12.9 mg/mg Normal [facility] Comment on above: Performed By: #### C BC #### [facility] [address] [place] [address] Dr. Troy Jeter CBC AUTO DIFFon 03-29-2022 BASO # 0.0 103/ul Normal 0.0-0.1 [facility] Comment on above: Performed By: #### C YTO #### [facility] [address] [place] [address] Dr. Troy Jeter Basophils/100 WBC (Bld) 0.2 % Normal 0.2-2.0 [facility] Comment on above: Performed By: #### C YTO #### [facility] [address] [place] [address] Dr. Troy Jeter EO # 0.0 103/ul Normal 0.0-0.7 [facility] Comment on above: Performed By: #### C YTO #### [facility] [address] [place] [address] Dr. Troy Jeter Eosinophils/100 WBC (Bld) 0.2 % Critically low 0.9-7.0 [facility] Comment on above: Performed By: #### C YTO #### [facility] [address] [place] [address] Dr. Troy Jeter Erythrocyte distribution width (RBC) [Ratio] 14.0 % Normal 11.0-15.0 [facility] Comment on above: Performed By: #### C YTO #### [facility] [address] [place] [address] Dr. Troy Jeter Hematocrit (Bld) [Volume fraction] 35.4 % Critically low 36.0-48.0 [facility] Comment on above: Performed By: #### C YTO #### [facility] [address] [place] [address] Dr. Troy Jeter Hemoglobin (Bld) [Mass/Vol] 10.9 g/dL Critically low 12.0-16.0 [facility] Comment on above: Performed By: #### C YTO #### [facility] [address] [place] [address] Dr. Troy Jeter IG # 0.03 10e3/ul Normal 0.00-0.03 [facility] Comment on above: Performed By: #### C YTO #### [facility] [address] [place] [address] Dr. Troy Jeter IG % 0.5 % Normal 0.0-0.5 [facility] Comment on above: Performed By: #### C YTO #### [facility] [address] [place] [address] Dr. Troy Jeter LYMPH # 0.3 103/ul Critically low 1.2-3.8 [facility] Comment on above: Performed By: #### C YTO #### [facility] [address] [place] [address] Dr. Troy Jeter Lymphocytes/100 WBC (Bld) 5.8 % Critically low 20.5-60.0 [facility] Comment on above: Performed By: #### C YTO #### [facility] [address] [place] [address] Dr. Troy Jeter MANUAL DIFF REQ NO Normal [facility] Comment on above: Performed By: #### C YTO #### [facility] [address] [place] [address] Dr. Troy Jeter MCH (RBC) [Entitic mass] 27.3 pg Normal 26.7-34.0 [facility] Comment on above: Performed By: #### C YTO #### [facility] [address] [place] [address] Dr. Troy Jeter MCHC (RBC) [Mass/Vol] 30.8 g/dL Normal 29.9-35.2 [facility] Comment on above: Performed By: #### C YTO #### [facility] [address] [place] [address] Dr. Troy Jeter MCV (RBC) [Entitic vol] 88.7 fL Normal 81.0-99.0 [facility] Comment on above: Performed By: #### C YTO #### [facility] [address] [place] [address] Dr. Troy Jeter MONO # 0.3 103/ul Normal 0.3-0.8 [facility] Comment on above: Performed By: #### C YTO #### [facility] [address] [place] [address] Dr. Troy Jeter Monocytes/100 WBC (Bld) 6.2 % Normal 1.7-12.0 [facility] Comment on above: Performed By: #### C YTO #### [facility] [address] [place] [address] Dr. Troy Jeter NEUT # 4.8 103/ul Normal 1.4-6.5 [facility] Comment on above: Performed By: #### C YTO #### [facility] [address] [place] [address] Dr. Troy Jeter Neutrophils/100 WBC (Bld) 87.1 % Critically high 43.0-75.0 [facility] Comment on above: Performed By: #### C YTO #### [facility] [address] [place] [address] Dr. Troy Jeter Platelet mean volume (Bld) [Entitic vol] 9.6 fL Normal 9.5-13.5 [facility] Comment on above: Performed By: #### C YTO #### [facility] [address] [place] [address] Dr. Troy Jeter PLT 176 103/ul Normal 150-[address] [facility] Comment on above: Performed By: #### C YTO #### [facility] [address] [place] [address] Dr. Troy Jeter RBC 3.99 106/ul Critically low 4.20-5.40 [facility] Comment on above: Performed By: #### C YTO #### [facility] [address] [place] [address] Dr. Troy Jeter WBC 5.5 103/ul Normal 4.0-11.0 [facility] Comment on above: Performed By: #### C YTO #### [facility] [address] [place] [address] Dr. Troy Jeter PROF 14(COMP METB)on 022 Albumin [Mass/Vol] 3.1 g/dL Critically low 3.4-5.0 [facility] Comment on above: Performed By: #### C YTO #### [facility] [address] [place] [address] Dr. Troy Jeter Albumin/Globulin [Mass ratio] 0.9 {ratio} Normal [facility] Comment on above: Performed By: #### C YTO #### [facility] [address] [place] [address] Dr. Troy Jeter ALP [Catalytic activity/Vol] 58 U/L Normal 46-116 [facility] Comment on above: Performed By: #### C YTO #### [facility] [address] [place] [address] Dr. Troy Jeter ALT [Catalytic activity/Vol] 49 U/L Normal 14-59 [facility] Comment on above: Performed By: #### C YTO #### [facility] [address] [place] [address] Dr. Troy Jeter Anion gap [Moles/Vol] 15.7 mmol/L Normal [facility] Comment on above: Performed By: #### C YTO #### [facility] [address] [place] [address] Dr. Troy Jeter AST [Catalytic activity/Vol] 59 U/L Critically high 15-37 [facility] Comment on above: Performed By: #### C YTO #### [facility] [address] [place] [address] Dr. Troy Jeter Bilirubin [Mass/Vol] 0.3 mg/dL Normal 0.2-1.0 [facility] Comment on above: Performed By: #### C YTO #### [facility] [address] [place] [address] Dr. Troy Jeter Calcium [Mass/Vol] 8.1 mg/dL Critically low 8.5-10.1 [facility] Comment on above: Performed By: #### C YTO #### [facility] [address] [place] [address] Dr. Troy Jeter Chloride [Moles/Vol] 110 mmol/L Critically high 98-107 [facility] Comment on above: Performed By: #### C YTO #### [facility] [address] [place] [address] Dr. Troy Jeter CO2 [Moles/Vol] 20.8 mmol/L Critically low 21.0-32.0 [facility] Comment on above: Performed By: #### C YTO #### [facility] [address] [address] [address] Troy Jeter Creatinine [Mass/Vol] 0.94 mg/dL Normal 0.55-1.02 [facility] Comment on above: Performed By: #### C YTO #### [facility] [address] [place] [address] Dr. Troy Jeter EGFR-AF [place] >60 Normal >=60 [facility] Comment on above: Performed By: #### C YTO #### [facility] [address] [place] [address] Dr. Troy Jeter EGFR-NON AF [place] 60 mL/min/1.73m2 Normal >=60 [facility] Comment on above: Performed By: #### C YTO #### [facility] [address] [place] [address] Dr. Troy Jeter Globulin (S) [Mass/Vol] 3.4 g/dL Normal [facility] Comment on above: Performed By: #### C YTO #### [facility] [address] [place] [address] Dr. Troy Jeter Glucose [Mass/Vol] 95 mg/dL Normal 74-106 [facility] Comment on above: Performed By: #### C YTO #### [facility] [address] [address] [address] Troy Jeter Potassium [Moles/Vol] 3.5 mmol/L Normal 3.5-5.1 [facility] Comment on above: Performed By: #### C YTO #### [facility] [address] [place] [address] Dr. Troy Jeter Protein [Mass/Vol] 6.5 g/dL Normal 6.4-8.2 [facility] Comment on above: Performed By: #### C YTO #### [facility] [address] [place] [address] Dr. Troy Jeter Sodium [Moles/Vol] 143 mmol/L Normal 136-145 [facility] Comment on above: Performed By: #### C YTO #### [facility] [address] [place] [address] Dr. Troy Jeter Urea nitrogen [Mass/Vol] 18.0 mg/dL Normal 7.0-18.0 [facility] Comment on above: Performed By: #### C YTO #### [facility] [address] [place] [address] Dr. Troy Jeter Urea nitrogen/Creatinine [Mass ratio] 19.1 mg/mg Normal [facility] Comment on above: Performed By: #### C YTO #### [facility] [address] [place] [address] Dr. Troy Jeter CBC W MANUAL DIFFon 03-28-20 22 ATYPICAL LYMPH # Normal [facility] Comment on above: Performed By: #### C YTO #### [facility] [address] [place] [address] Dr. Troy Jeter ATYPICAL LYMPH % Normal [facility] Comment on above: Performed By: #### C YTO #### [facility] [address] [place] [address] Dr. Troy Jeter BAND # 0.1 103/ul Normal 0.0-0.[address] [facility] Comment on above: Performed By: #### C YTO #### [facility] [address] [place] [address] Dr. Troy Jeter BAND % 1 % Normal 0-[address] [facility] Comment on above: Performed By: #### C YTO #### [facility] [address] [place] [address] Dr. Troy Jeter BASOM # 0.08 103/ul Normal 0.00-0.[address] [facility] Comment on above: Performed By: #### C YTO #### [facility] [address] [place] [address] Dr. Troy Jeter BASOM % 1.0 % Normal 0.2-2.0 [facility] Comment on above: Performed By: #### C YTO #### [facility] [address] [place] [address] Dr. Troy Jeter BLAST # Normal [facility] Comment on above: Performed By: #### C YTO #### [facility] [address] [place] [address] Dr. Troy Jeter BLAST % Normal [facility] Comment on above: Performed By: #### C YTO #### [facility] [address] [place] [address] Dr. Troy Jeter CORRECTED WBC Normal 4.0-11.0 [facility] Comment on above: Performed By: #### C YTO #### [facility] [address] [place] [address] Dr. Troy Jeter EOS # 0.00 103/ul Normal 0.00-0.70 [facility] Comment on above: Performed By: #### C YTO #### [facility] [address] [place] [address] Dr. Troy Jeter EOS% 0.0 % Critically low 0.9-7.0 [facility] Comment on above: Performed By: #### C YTO #### [facility] [address] [place] [address] Dr. Troy Jeter HCT 40.2 % Normal 36.0-48.0 [facility] Comment on above: Performed By: #### C YTO #### [facility] [address] [place] [address] Dr. Troy Jeter HGB 12.5 g/dl Normal 12.0-16.0 [facility] Comment on above: Performed By: #### C YTO #### [facility] [address] [place] [address] Dr. Troy Jeter LYMPHM # 0.23 103/ul Critically low 1.20-3.80 [facility] Comment on above: Performed By: #### C YTO #### [facility] [address] [address] [address] Troy Jeter LYMPHM% 3.0 % Critically low 20.5-60.0 [facility] Comment on above: Performed By: #### C YTO #### [facility] [address] [place] [address] Dr. Troy Jeter MCH 27.1 pg Normal 26.7-34.0 [facility] Comment on above: Performed By: #### C YTO #### [facility] [address] [place] [address] Dr. Troy Jeter MCHC 31.1 g/dl Normal 29.9-35.[address] [facility] Comment on above: Performed By: #### C YTO #### [facility] [address] [place] [address] Dr. Troy Jeter MCV 87.2 fL Normal 81.0-99.0 [facility] Comment on above: Performed By: #### C YTO #### [facility] [address] [place] [address] Dr. Troy Jeter METAMYELOCYTE # Normal [facility] Comment on above: Performed By: #### C YTO #### [facility] [address] [place] [address] Dr. Troy Jeter METAMYELOCYTE % Normal [facility] Comment on above: Performed By: #### C YTO #### [facility] [address] [place] [address] Dr. Troy Jeter MONOM# 0.08 103/ul Critically low 0.30-0.80 [facility] Comment on above: Performed By: #### C YTO #### [facility] [address] [place] [address] Dr. Troy Jeter MONOM% 1.0 % Critically low 1.7-12.0 [facility] Comment on above: Performed By: #### C YTO #### [facility] [address] [place] [address] Dr. Troy Jeter MPV 10.0 fL Normal 9.5-13.5 [facility] Comment on above: Performed By: #### C YTO #### [facility] [address] [address] [address] Troy Jeter MYELOCYTE # Normal [facility] Comment on above: Performed By: #### C YTO #### [facility] [address] [address] [address] Troy Jeter MYELOCYTE % Normal [facility] Comment on above: Performed By: #### C YTO #### [facility] [address] [address] [address] Troy Jeter NRBC Normal [facility] Comment on above: Performed By: #### C YTO #### [facility] [address] [place] [address] Dr. Troy Jeter PLT 230 103/ul Normal 150-450 [facility] Comment on above: Performed By: #### C YTO #### [facility] [address] [place] [address] Dr. Troy Jeter RBC 4.61 106/ul Normal 4.20-5.40 [facility] Comment on above: Performed By: #### C YTO #### [facility] [address] [place] [address] Dr. Troy Jeter RDW 13.8 % Normal 11.0-15.0 [facility] Comment on above: Performed By: #### C YTO #### [facility] [address] [address] [address] Troy Jeter SEG # 7.14 103/ul Critically high 1.40-6.50 [facility] Comment on above: Performed By: #### C YTO #### [facility] [address] [address] [address] Troy Jeter SEG % 94.0 % Critically high 43.0-75.0 [facility] Comment on above: Performed By: #### C YTO #### [facility] [address] [place] [address] Dr. Troy Jeter WBC 7.6 103/ul Normal 4.0-11.0 [facility] Comment on above: Performed By: #### C YTO #### [facility] [address] [address] [address] ABD/PELVIS WO CONon 03-28 CT ABD/PELVIS WO CON EXAMINATION:CT ABD/PELVIS WO CON INDICATION:UNSPECIFIED ABDOMINAL PAIN COMPARISON:12/26/2021, 07/16/2021 TECHNIQUE:Multiple thin section transaxial slices were acquired through the abdomen and pelvis without intravenous contrast. Coronal and sagittal reconstructed images were reviewed. Oral contrastWas not administered. FINDINGS: LOWER CHEST: The lower chest is unremarkable. LIVER: The liver is unremarkable. GALLBLADDER AND BILIARY SYSTEM: No obvious ductal dilation. No calcified stones. SPLEEN: The spleen is unremarkable. PANCREAS: The pancreas is unremarkable. ADRENAL GLANDS: The adrenal glands are unremarkable. KIDNEYS AND URETERS: There is no hydronephrosis of the kidneys.No obstructing urologic calcifications are present. VASCULATURE: Vascularity is unremarkable. PERITONEUM/RETROPERITON EUM: Peritoneum/retroperiton eum is unremarkable. LYMPH NODES: No suspicious lymphadenopathy. GASTROINTESTINAL TRACT: The bowel is normal in caliber.There is chronic colonic diverticulosis of the colon without acute inflammation.The appendix is visualized and is not inflamed. BLADDER: The urinary bladder is not optimally visualized on this examination due to decompression. REPRODUCTIVE SYSTEM: The uterus is absent. BODY WALL: There is a tiny fat-containing umbilical hernia. BONES: Degenerative changes are present in the spine mainly affecting the L1-L2 level. IMPRESSION: 1. No acute process in the abdomen or pelvis. Electronically authenticated by: ABDIAZIZ HALEY Date: 2022-03-28 16:37 Normal [facility] Covid-19 PCR (CVDTB)on 03-01 SARS-CoV-2 (COVID-19) RNA BRANDEN+probe Ql (Unsp spec) Not detected Normal NOT DETECTED [facility] Comment on above: Result Comment: When diagnostic testing is negative, the possibility of a false negative should be considered in the context of a patient's recent exposures and the presence of clinical signs and symptoms consistent with SARS-CoV-2. This test is not yet approved or cleared by the [place] FDA. When there are no FDA-approved or cleared tests available, and other criteria are met, FDA can make tests available under an emergency access mechanism called an Emergency Use Authorization (EUA). The EUA for this test is supported by the [place] of Health and Human Service's declaration that circumstances exist to justify the emergency use of in vitro diagnostics for the detection and/or diagnosis of the virus that causes COVID-19. This EUA will remain in effect for the duration of the COVID-19 declaration justifying emergency of IVDs, unless it is terminated or revoked by the FDA (after which the test may no longer be used). Performed By: #### C VDTB #### [facility] [address] [place] [address] Dr. Troy Jeter ER URINE PROFILEon 2 Bilirubin Ql (U) Negative Normal NEGATIVE [facility] Comment on above: Performed By: #### C BC #### [facility] [address] [place] [address] Dr. Troy Jeter Clarity (U) CLEAR Normal CLEAR [facility] Comment on above: Performed By: #### C BC #### [facility] [address] [place] [address] Dr. Troy Jeter Color (U) LT. YELLOW Normal YELLOW [facility] Comment on above: Performed By: #### C BC #### [facility] [address] [place] [address] Dr. Troy INMAN A micrscopic examination will be performed if indicated. Normal [facility] Comment on above: Performed By: #### C BC #### [facility] [address] [place] [address] Dr. Troy Jeter Glucose Ql (U) Negative Normal NEGATIVE [facility] Comment on above: Performed By: #### C BC #### [facility] [address] [place] [address] Dr. Troy Jeter Hemoglobin Ql (U) SMALL Abnormal NEGATIVE [facility] Comment on above: Performed By: #### C BC #### [facility] [address] [place] [address] Dr. Troy Jeter Ketones Ql (U) Negative Normal NEGATIVE [facility] Comment on above: Performed By: #### C BC #### [facility] [address] [place], [place] [id number] Dr. Troy Jeter LEUKOCYTES Negative Normal NEGATIVE [facility] Comment on above: Performed By: #### C BC #### [facility] [address] [place] [address] Dr. Troy Jeter Nitrite Ql (U) Negative Normal NEGATIVE [facility] Comment on above: Performed By: #### C BC #### [facility] [address] [place] [address] Dr. Troy Jeter pH (U) 6.0 [pH] Normal 5-9 [facility] Comment on above: Performed By: #### C BC #### [facility] [address] [place] [address] Dr. Troy Jeter SPEC GRAVITY 1.020 Normal 1.005-<=1.025 [facility] Comment on above: Performed By: #### C BC #### [facility] [address] [place] [address] Dr. Troy Jeter UA PROTEIN Negative Normal NEGATIVE/ TRACE [facility] Comment on above: Performed By: #### C BC #### [facility] [address] [place] [address] Dr. Troy Jeter UR MICRO IND INDICATED Normal [facility] Comment on above: Performed By: #### C BC #### [facility] [address] [place] [address] Dr. Troy Jeter Urobilinogen Qn (U) 0.2 {Kriss'U}/dL Normal 0.2 - 1. 0 [facility] Comment on above: Performed By: #### C BC #### [facility] [address] [place] [address] Dr. Troy Jeter GI PANEL (PCR)on 03-28-2022 Adenovirus F 40/41 Not detected Normal NOT DETECTED [facility] Comment on above: Performed By: #### C YTO #### [facility] [address] [place] [address] Dr. Troy Jeter Astrovirus Not detected Normal NOT DETECTED [facility] Comment on above: Performed By: #### C YTO #### [facility] [address] [place] [address] Dr. Troy Cid. Diff toxin A/B Not detected Normal NOT DETECTED [facility] Comment on above: Performed By: #### C YTO #### [facility] [address] [place] [address] Dr. Troy Jeter Campylobacter Not detected Normal NOT DETECTED [facility] Comment on above: Performed By: #### C YTO #### [facility] [address] [place] [address] Dr. Troy Jeter Cryptosporidium Not detected Normal NOT DETECTED [facility] Comment on above: Performed By: #### C YTO #### [facility] [address] [place] [address] Dr. Troy Jeter Cyclos. Cayetanensis Not detected Normal NOT DETECTED [facility] Comment on above: Performed By: #### C YTO #### [facility] [address] [place] [address] Dr. Troy Jeter E. Coli O157 Not Applicable Normal Not Applicable [facility] Comment on above: Performed By: #### C YTO #### [facility] [address] [place] [address] Dr. Troy Jeter E. histolytica Not detected Normal NOT DETECTED [facility] Comment on above: Performed By: #### C YTO #### [facility] [address] [place] [address] Dr. Troy Jeter EAEC Not detected Normal NOT DETECTED [facility] Comment on above: Performed By: #### C YTO #### [facility] [address] [place] [address] Dr. Troy Jeter EIEC Not detected Normal NOT DETECTED [facility] Comment on above: Performed By: #### C YTO #### [facility] [address] [place] [address] Dr. Tryo Jeter EPEC Not detected Normal NOT DETECTED [facility] Comment on above: Performed By: #### C YTO #### [facility] [address] [place] [address] Dr. Troy Jeter ETEC Not detected Normal NOT DETECTED [facility] Comment on above: Performed By: #### C YTO #### [facility] [address] [address] [address] Troy Souza Not detected Normal NOT DETECTED [facility] Comment on above: Performed By: #### C YTO #### [facility] [address] [address] [address] Troy KIMBROUGH CONTROLS PASSED Normal [facility] Comment on above: Performed By: #### C YTO #### [facility] [address] [address] [address] Troy PAYTON BAR HEADER GI PANEL BACTERIA Normal [facility] Comment on above: Performed By: #### C YTO #### [facility] [address] [place] [address] Dr. Troy JIMENEZ ECOLI GI PANEL DIARRHEAGEN IC E.COLI / SHIGELLA Normal [facility] Comment on above: Performed By: #### C YTO #### [facility] [address] [place] [address] Dr. Troy JIMENEZ INFO SEE BELOW Normal [facility] Comment on above: Result Comment: EAEC - Enteroaggregative E. Coli EPEC- Enteropathogenic E. Coli ETEC- Enterotoxigenic E. Coli lt/st STEC- Shigella-like toxin-producing E. Coli stx1/stx2 EIEC- Shigella/Enteroinvasive E. Coli Performed By: #### C YTO #### [facility] [address] [place] [address] Dr. Troy JIMENEZ PARASITES GI PANEL PARASITES Normal [facility] Comment on above: Performed By: #### C YTO #### [facility] [address] [place] [address] Dr. Troy JIMENEZ VIRUS GI PANEL VIRUSES Normal [facility] Comment on above: Performed By: #### C YTO #### [facility] [address] [place] [address] Dr. Troy Jeter Norovirus GI/GII Not detected Normal NOT DETECTED [facility] Comment on above: Performed By: #### C YTO #### [facility] [address] [place] [address] Dr. Troy Jeter P. Shigelloides Not detected Normal NOT DETECTED [facility] Comment on above: Performed By: #### C YTO #### [facility] [address] [place] [address] Dr. Troy Jeter Rotavirus A Detected Abnormal NOT DETECTED [facility] Comment on above: Performed By: #### C YTO #### [facility] [address] [place] [address] Dr. Troy Jeter Salmonella Not detected Normal NOT DETECTED [facility] Comment on above: Performed By: #### C YTO #### [facility] [address] [place] [address] Dr. Troy Jeter Sapovirus Not detected Normal NOT DETECTED [facility] Comment on above: Performed By: #### C YTO #### [facility] [address] [place] [address] Dr. Troy Jeter STEC Not detected Normal NOT DETECTED [facility] Comment on above: Performed By: #### C YTO #### [facility] [address] [place] [address] Dr. Troy Jeter Vibrio Not detected Normal NOT DETECTED [facility] Comment on above: Performed By: #### C YTO #### [facility] [address] [place] [address] Dr. Troy Jeter Vibrio Cholera Not detected Normal NOT DETECTED [facility] Comment on above: Performed By: #### C YTO #### [facility] [address] [place] [address] Dr. Troy Jeter Y. Enterocolitica Not detected Normal NOT DETECTED [facility] Comment on above: Performed By: #### C YTO #### [facility] [address] [place] [address] Dr. Troy Jeter LACTATE/LACTIC ACIDon 2021 Lactate [Moles/Vol] 1.7 mmol/L Normal 0.4-1.9 [facility] Comment on above: Performed By: #### C BC #### [facility] [address] [place] [address] Dr. Troy Jeter LIPASEon 03-28-2022 Lipase [Catalytic activity/Vol] 135.0 U/L Normal 73.0-393.0 [facility] Comment on above: Performed By: #### L IPA, CMP #### [facility] [address] [place] [address] Dr. Troy Jeter PROF 14(COMP METB)on Albumin [Mass/Vol] 3.9 g/dL Normal 3.4-5.0 [facility] Comment on above: Performed By: #### L IPA, CMP #### [facility] [address] [place] [address] Dr. Troy Jeter Albumin/Globulin [Mass ratio] 1.0 {ratio} Normal [facility] Comment on above: Performed By: #### L IPA, CMP #### [facility] [address] [place] [address] Dr. Troy Jeter ALP [Catalytic activity/Vol] 81 U/L Normal 46-116 [facility] Comment on above: Performed By: #### L IPA, CMP #### [facility] [address] [place] [address] Dr. Troy Jeter ALT [Catalytic activity/Vol] 45 U/L Normal 14-59 [facility] Comment on above: Performed By: #### L IPA, CMP #### [facility] [address] [place] [address] Dr. Troy Jeter Anion gap [Moles/Vol] 15.2 mmol/L Normal [facility] Comment on above: Performed By: #### L IPA, CMP #### [facility] [address] [place] [address] Dr. Troy Jeter AST [Catalytic activity/Vol] 42 U/L Critically high 15-37 [facility] Comment on above: Performed By: #### L IPA, CMP #### [facility] [address] [place] [address] Dr. Troy Jeter Bilirubin [Mass/Vol] 0.5 mg/dL Normal 0.2-1.0 [facility] Comment on above: Performed By: #### L IPA, CMP #### [facility] [address] [place] [address] Dr. Troy Jeter Calcium [Mass/Vol] 9.4 mg/dL Normal 8.5-10.1 [facility] Comment on above: Performed By: #### L IPA, CMP #### [facility] [address] [address] [address] Troy Jeter Chloride [Moles/Vol] 105 mmol/L Normal 98-107 [facility] Comment on above: Performed By: #### L IPA, CMP #### [facility] [address] [place] [address] Dr. Troy Jeter CO2 [Moles/Vol] 23.7 mmol/L Normal 21.0-32.0 [facility] Comment on above: Performed By: #### L IPA, CMP #### [facility] [address] [place] [address] Dr. Troy Jeter Creatinine [Mass/Vol] 0.91 mg/dL Normal 0.55-1.02 [facility] Comment on above: Performed By: #### L IPA, CMP #### [facility] [address] [place] [address] Dr. Troy Jeter EGFR-AF [place] >60 Normal >=60 [facility] Comment on above: Performed By: #### L IPA, CMP #### [facility] [address] [place] [address] Dr. Troy Jeter EGFR-NON AF [place] >60 Normal >=60 [facility] Comment on above: Performed By: #### L IPA, CMP #### [facility] [address] [place] [address] Dr. Troy Jeter Globulin (S) [Mass/Vol] 4.0 g/dL Normal [facility] Comment on above: Performed By: #### L IPA, CMP #### [facility] [address] [place] [address] Dr. Troy Jeter Glucose [Mass/Vol] 119 mg/dL Critically high 74-106 [facility] Comment on above: Performed By: #### L IPA, CMP #### [facility] [address] [address] [address] Troy Jeter Potassium [Moles/Vol] 3.9 mmol/L Normal 3.5-5.1 [facility] Comment on above: Performed By: #### L IPA, CMP #### [facility] Laboratory [address] [address] [address] Troy Jeter Protein [Mass/Vol] 7.9 g/dL Normal 6.4-8.2 [facility] Comment on above: Performed By: #### L IPA, CMP #### [facility] Laboratory [address] [place] [address] Dr. Troy Jeter Sodium [Moles/Vol] 140 mmol/L Normal 136-145 [facility] Comment on above: Performed By: #### L IPA, CMP #### [facility] Laboratory [address] [place] [address] Dr. Troy Jeter Urea nitrogen [Mass/Vol] 16.0 mg/dL Normal 7.0-18.0 [facility] Comment on above: Performed By: #### L IPA, CMP #### [facility] Laboratory [address] [place] [address] Dr. Troy Jeter Urea nitrogen/Creatinine [Mass ratio] 17.6 mg/mg Normal [facility] Comment on above: Performed By: #### L IPA, CMP #### [facility] Laboratory [address] [place] [address] Dr. Troy Jeter URINE MICROSCOPIC ONLYon BACTERIA TRACE Abnormal NONE SEEN [facility] Comment on above: Performed By: #### C BC #### [facility] Laboratory [address] [place] [address] Dr. Troy Jeter Bacteria identified Cx Nom (U) NOT INDICATED Normal [facility] Comment on above: Performed By: #### C BC #### [facility] Laboratory [address] [place] [address] Dr. Troy Jeter CAST NONE SEEN Normal NONE SEEN [facility] Comment on above: Performed By: #### C BC #### [facility] Laboratory [address] [address] [address] Troy Jeter Crystals LM Nom (Urine sed) NONE SEEN Normal NONE SEEN [facility] Comment on above: Performed By: #### C BC #### [facility] Laboratory [address] [place] [address] Dr. Troy Jeter Epithelial cells LM Ql (Urine sed) FEW Abnormal NONE SEEN /RARE [facility] Comment on above: Performed By: #### C BC #### [facility] Laboratory [address] [place] [address] Dr. Troy Jeter MUCOUS NONE SEEN Normal NONE SEEN [facility] Comment on above: Performed By: #### C BC #### [facility] Laboratory [address] [place] [address] Dr. Troy Jeter RBC 2-5 Abnormal 0-[address] [facility] Comment on above: Performed By: #### C BC #### [facility] Laboratory [address] [place] [address] Dr. Troy Jeter WBC 0-2 Abnormal NONE SEEN [facility] Comment on above: Performed By: #### C BC #### [facility] Laboratory [address] [place] [address] Dr. Troy Jeter [facility]2020 [facility] Surgical Pathology Department Name DANIELLA BEJARANO Pathologist: AMEE KELSEY DMD Date of Procedure: 08/13/2020 Date Received: 08/17/2020 Date Reported 08/25/2020 Submitting Physician: BUTCH LONG DDS Location: [facility] Other External # FINAL DIAGNOSIS A. LEFT LATERAL TONGUE, EXCISION: -- TRAUMATIC ULCER -- NEGATIVE FOR DYSPLASIA OR MALIGNANCY ICD-10/CPT: K14.0/03045 Electronically Signed Out By AMEE KELSEY DMD/ARASELI By the signature on this report, the individual or group listed as making the Final Interpretation/Diagnosi s certifies that they have reviewed this case. Microscopic Description: The sections show a fragment of squamous mucosa notable for focal ulceration. Adjacent, intact stratified squamous epithelium is hyperplastic and exhibits parakeratosis. Reactive epithelial atypia is present, chiefly in the form of basal cell hyperplasia and increased mitotic activity, but this is localized to the perilesional epithelium and the epithelium otherwise undergoes the usual pattern of maturation. The lamina propria consists of densely collagenous fibrovascular tissue with a moderate acute and chronic inflammatory infiltrate, and skeletal muscle is present at the base. Clinical History: The lesion was excised from the left lateral tongue. A 0.4 x 0.6 cm white area with central ulceration has been present for greater than 2 months. Clinical impression: Traumatic ulcer. Specimens Submitted As: A: LEFT LATERAL TONGUE Gross Description: Received in formalin, labeled with the patient's name and hospital number and L lateral tongue , is an unoriented, elliptical segment of johnson mucosal tissue measuring 1.0 x 0.5 x 0.2 cm. On the skin surface is an ill-defined, johnson?white, slightly depressed area measuring 0.4 x 0.2 cm which extends within < 0.1 cm to the closest lateral margin. The deep and lateral margins are inked blue. The specimen is sectioned and entirely submitted in 2 cassettes. [facility] Summary of Cassettes: Specimen Label Site A 1 tips 2 body of ellipse [facility]/08/19/2020 [facility] Department of Pathology [address] [place] [address] Normal [facility] Comment on above: Performed By: #### U [facility] #### [facility] Surgical Pathology Department [address] [place] [address] Cardiovascular Lab Reporton 06-12-2020 Cardiovascular Lab Report [facility] Patient Name: [facility] Chris MR #: [id number] Department of Physician: Audie Bustos M.D. Division of Service Date: 06/11/2020 Cardiology Birthdate: 1960 Adult Cardiovascular Room #: [address] [place] [address] Cardiovascular Laboratory Report INDICATION: The patient a 59-year-old woman, who was evaluated in Cardiology Clinic because of shortness of breath. A stress test showed possible apical ischemia. She is referred for cardiac catheterization. PROCEDURES: 1. Access into the right internal jugular vein under ultrasound guidance. 2. Right heart catheterization. 3. Bilateral selective coronary angiography from the radial access. METHOD: Procedure was explained to the patient with risks and benefits. She signed informed consent. She was brought to laboratory equipment installer in a fasting state. The right neck area was prepped and draped in usual fashion. Using ultrasound guidance and micropuncture technique, the right internal jugular vein was accessed. A 6-Malaysian x 11 cm sheath was placed. A 6-Malaysian Duron catheter was used for right heart catheterization with measurement of pressures and calculation of cardiac output using the estimated Daysi method. Duron catheter was removed. Access in the right radial artery was obtained using micropuncture technique. A 6-Malaysian x 11 cm Hydrophilic sheath was advanced. Verapamil was given through the sheath and heparin was administered intravenously. Note that modified David's test was favorable on the right. Initial catheter advancement was made, feasible using an angled Glidewire to overcome a radial artery loop, following which bilateral selective coronary angiography was performed using 6-Malaysian JL3.5 and JR5 diagnostic catheter. Catheters were removed. Procedure was concluded. A TR band was used for hemostasis in the right radial artery. Manual compression was used for hemostasis in the right internal jugular vein. She tolerated the procedure well. She was observed for 4 hours and then discharged to home. TOTAL FLUORO TIME: 5.27 minutes. TOTAL AIR KERMA: 283 mGy. TOTAL CONTRAST VOLUME: 20 mL. HEMODYNAMICS: RA 4, RV 27/1, 4, PA 28/5, mean 16. Pulmonary capillary wedge pressure 7. AO 131/71, mean 97. Cardiac output 4.62, cardiac index 2.4. PA sat 59%, AO sat 99%. CORONARY ANGIOGRAPHY: This is a right dominant circulation. Left main: This arises from left coronary cusp. It bifurcates into left anterior descending and circumflex vessels. Left main is free of disease. Left anterior descending: This has minimal luminal irregularities. Circumflex vessel: This is a large and nondominant vessel. It is angiographically normal. Right coronary artery: This arises from the right coronary cusp. It is a large and dominant vessel. It has disease in aneurysmal dilatation in the proximal to mid segment, but is otherwise free of disease. SUMMARY OF FINDINGS: 1. Coronary artery disease with aneurysmal dilatation of the proximal to mid segment of the right coronary artery, but no obstructive lesions and no significant atherosclerotic plaque elsewhere. 2. Normal filling pressures. 3. Normal pulmonary arterial pressures. 4. Low normal cardiac output and cardiac index. RECOMMENDATION: Continue medical therapy and follow up in Cardiology Clinic. Electronically Signed by: Audie Bustos M.D. 06/13/2020 07:08 A Audie Bustos M.D. Date Dict: 06/11/2020/03:46 P/Audie Bustos M.D. Date Trans: 06/12/2020 04:00 A/veenao DN_[id number] cc: Bayron Singh M.D. [address] [facility] [address] Normal [facility] *SARS-CoV-2 COVID-19on 06-09 [id number] Not Detected Normal Not Detected [facility] Comment on above: Order Comment: The A ptima SARS-CoV-2 assay is a nucleic acid amplification test intended for the qualitative detection of RNA from SARS-CoV-2 isolated and purified from nasopharyngeal (DATA SPECIALIST),oropharyngeal (OP), nasal swab, sputum, and bronchoalveolar lavage (BAL) specimens from patients with signs and symptoms of infection who are suspected of COVID-19. Results are for the identification of SARS-CoV-2 RNA. The SARS-CoV-2 RNA is generally detectable during the acute phase of infection. The Aptima SARS-CoV-2 Assay on the [employer] and [employer] Fusion system is intended for use by laboratory personnel specifically instructed and trained in the operation of the [place] and [employer] Fusion system. The Aptima SARS-CoV-2 assay is only for use under the Food and Drug Administration Emergency Use Authorization. Testing is limited to laboratories certified under the Clinical Laboratory Improvement Amendments of 1988 (CLIA), 42 U.S.C. ???263a, to perform high complexity tests. Not Detected: Not detected does not preclude SARS-CoV-2 infection and should not be used as the sole basis for patient management decisions. Not detected results must be combined with clinical observations, patient history, and epidemiological information. Performed By: #### 3 1792 #### [facility] Keyla [address] [place], [place] [id number] [place] [address] 02-17-2020 CNPN Telephone (HEMASA) HERBERTDANIELLA LEHMAN ([id number]) 1960 F Date Time Provider Department 02/17/20 BONNY FELIPE During your visit today, we recorded the following information about you: Ai Blount 02/17/2020 2:53 PM Signed Records faxed to [facility]. Allergies As of Date: 02/17/2020 (No Known Allergies) Date Reviewed: 07/26/2019 Reviewed by: Bonny Felipe - Fully Assessed Reason for Visit: Records faxed [Other] Prescriptions as of 02/17/2020 Sig: XARELTO 20 MG TABLET Take 20 mg by mouth once niraj* LETROZOLE 2.5 MG TABLET Take 1 tablet by mouth once d* VITAMIN D (WITH CALCIUM) ORAL Take by mouth. ACETAMINOPHEN 500 MG TABLET Take 1,000 mg by mouth twice * OMEPRAZOLE 40 MG CAPSULE,CALLY* Take 40 mg by mouth twice jesus* BENICAR 20 MG TABLET Take 20 mg by mouth once niraj* Problem List As Of Date 02/17/2020 Noted Resolved Abnormal mammogram [R92.8] 12/27/2012 Cancer of breast, intraductal [D05.10] 06/13/2017 Encounter for screening for osteoporosis [Z13.8*06/13/2017 Encounter Status:Closed by AI COLVIN on 02/17/20 Normal [facility] Vital Signs Date Time Vital Sign Value Performing Clinician Facility 04-26-2023 10:40-0400 Heart rate 84 /min Jeff Booth [facility] 04-26-2023 10:40-0400 SaO2% (BldA) [Mass fraction] 98 % Jeff Booth [facility] 04-26-2023 10:40-0400 Body temperature 97.52 [degF] Jeff Booth [facility] 04-26-2023 10:39-0400 Diastolic blood pressure 75 mm[Hg] Jeff Booth [facility] 04-26-2023 10:39-0400 Mean blood pressure 87 mm[Hg] Jeff Booth [facility] 04-26-2023 10:39-0400 Systolic blood pressure 111 mm[Hg] Jeff Booth [facility] 04-26-2023 10:39-0400 Respiratory rate 16 /min Jeff Booth [facility] 01-04-2023 08:01-0500 Blood Pressure Location Dina Lue [facility] 01-04-2023 08:01-0500 Diastolic blood pressure 82 mm[Hg] Dina Lue [facility] 01-04-2023 08:01-0500 Heart rate 71 /min Dina Lue [facility] 01-04-2023 08:01-0500 Systolic blood pressure 124 mm[Hg] Dina Lue [facility] 10-26-2022 10:26-0500 Blood Pressure Location AI RUY [facility] 10-26-2022 10:26-0500 Diastolic blood pressure 84 mm[Hg] AI RUY [facility] 10-26-2022 10:26-0500 Heart rate 65 /min AI RUY [facility] 10-26-2022 10:26-0500 Respiratory rate 16 /min AI RUY [facility] 10-26-2022 10:26-0500 Systolic blood pressure 123 mm[Hg] AI MITCHELL [facility] 10-19-2022 08:01-0500 Blood Pressure Location Dina Lue [facility] 10-19-2022 08:01-0500 Diastolic blood pressure 64 mm[Hg] Dina Lue [facility] 10-19-2022 08:01-0500 Heart rate 66 /min Dina Lue [facility] 10-19-2022 08:01-0500 Systolic blood pressure 145 mm[Hg] Dina Lue [facility] 10-12-2022 08:11-0500 Blood Pressure Location Dina Lue [facility] 10-12-2022 08:11-0500 Diastolic blood pressure 68 mm[Hg] Dina Lue [facility] 10-12-2022 08:11-0500 Heart rate 74 /min Dina Lue [facility] 10-12-2022 08:11-0500 Respiratory rate 16 /min Dina Lue [facility] 10-12-2022 08:11-0500 Systolic blood pressure 132 mm[Hg] Dina Lue [facility] 07-06-2022 10:28-0400 Blood Pressure Location Dina Lue [facility] 07-06-2022 10:28-0400 Diastolic blood pressure 62 mm[Hg] Dina Lue [facility] 07-06-2022 10:28-0400 Heart rate 74 /min Dina Lue [facility] 07-06-2022 10:28-0400 Respiratory rate 16 /min Dina Lue [facility] 07-06-2022 10:28-0400 Systolic blood pressure 98 mm[Hg] Dina Lue [facility] 03-02-2022 09:27-0400 Blood Pressure Location AI RUY [facility] 03-02-2022 09:27-0400 Diastolic blood pressure 66 mm[Hg] AI RUY [facility] 03-02-2022 09:27-0400 Heart rate 64 /min AI RUY [facility] 03-02-2022 09:27-0400 Systolic blood pressure 137 mm[Hg] AI RUY [facility] 02-09-2022 08:17-0400 Blood Pressure Location Dina Lue [facility] 02-09-2022 08:17-0400 Diastolic blood pressure 64 mm[Hg] Dina Lue [facility] [place] 02-09-2022 08:17-0400 Heart rate 60 /min [facility] 02-09-2022 08:17-0400 Respiratory rate 16 /min Dina Lue [facility] [place] 02-09-2022 08:17-0400 Systolic blood pressure 133 mm[Hg] Dina Lue [facility] [place] 02-02-2022 08:03-0400 Blood Pressure Location Dina Lue [facility] [place] 02-02-2022 08:03-0400 Diastolic blood pressure 100 mm[Hg] Dina Lue [facility] [place] 02-02-2022 08:03-0400 Heart rate 72 /min [facility] 02-02-2022 08:03-0400 Systolic blood pressure 144 mm[Hg] [facility] 01-26-2022 08:18-0400 Blood Pressure [facility] 01-26-2022 08:18-0400 Diastolic blood pressure 75 mm[Hg] Dina Lujavon [facility] [place] 01-26-2022 08:18-0400 Heart rate 56 /min Dina Cobb [facility] [place] 01-26-2022 08:18-0400 Systolic blood pressure 128 mm[Hg] Dina Cobb [facility] [place] Encounters Encounter Date Encounter Type Care Provider Facility Start: 11-15-2023 End: 11-15-2023 ambulatory BAYRON SINGH Not Available Start: 10-04-2023 ambulatory [facility] Start: 06-28-2023 End: 06-28-2023 ambulatory [facility] Start: 06-02-2023 End: 06-02-2023 ambulatory [facility] Start: 05-26-2023 End: 05-26-2023 ambulatory [facility] Start: 05-19-2023 End: 05-19-2023 [facility] Start: 05-16-2023 ambulatory AI E RUY Facili ty:[facility] Start: 05-12-2023 End: 05-12-2023 ambulatory [facility] Start: 05-09-2023 ambulatory AI E RUY Facili ty:[facility] Start: 05-05-2023 End: 05-05-2023 ambulatory [facility] Start: 04-28-2023 End: 04-28-2023 ambulatory [facility] Start: 04-26-2023 End: 04-27-2023 ambulatory Jeff Booth Facility:[facility] Start: 04-26-2023 End: 04-26-2023 Patient encounter procedure Jeff Booth [facility] Start: 04-25-2023 ambulatory AI DAVIDRY Ursula ty:[facility] [place] Start: 04-04-2023 End: 04-06-2023 ambulatory [facility] Start: 03-30-2023 End: 03-31-2023 ambulatory [facility] Start: 03-28-2023 End: 03-28-2023 ambulatory [facility] Start: 03-16-2023 End: 03-17-2023 ambulatory [facility] Start: 03-13-2023 ambulatory [facility] Start: 03-13-2023 End: 03-13-2023 ambulatory [facility] Start: 03-08-2023 Encounter for genera l adult medical examination without abnormal findings DR BAYRON SINGH [facility] Start: 03-06-2023 End: 03-07-[address] BAYRON SINGH Facility:[facility] Start: 03-02-2023 End: 03-03-[address] BAYRON SINGH Facility:[facility] Start: 03-02-2023 End: 03-03-2023 Encounter for general adult medical examination without abnormal findings DR BAYRON SINGH Facility:[facility] Start: 02-22-2023 End: 02-22-2023 ambulatory [facility] Start: 01-04-2023 End: 01-05-2023 ambulatory Dina Cobb Facility:[facility] Start: 01-04-2023 End: 01-04-2023 Patient encounter procedure Dina Cobb [facility] Start: 01-02-2023 ambulatory Dina Cobb Facility:[facility] Start: 12-28-2022 End: 12-29-2022 ambulatory DINA COBB . Facility:[facility] Start: 12-25-2022 Encounter for preprocedural cardiovascular examination DINA COBB . [facility] Start: 12-21-2022 End: 12-22-2022 ambulatory DINA COBB . Facility: Start: 12-21-2022 End: 12-22-2022 Encounter for preprocedural cardiovascular examination DINA COBB . Facility: Start: 12-14-2022 End: 12-15-2022 ambulatory Blanca Fitzpatrick Facility:[facility] Start: 12-14-2022 End: 12-14-2022 Lab Drop off Blanca Mckaymons [facility] Start: 12-14-2022 End: 12-14-2022 Patient encounter procedure Dina Cobb [facility] Start: 12-07-2022 End: 12-08-2022 ambulatory DINA COBB . Facility: Start: 11-23-2022 End: 11-24-[address] BAYRON SINGH Facility: Start: 11-05-2022 End: 11-05-[address] BAYRON SINGH Facility: Start: 10-28-2022 ambulatory Dina Cobb Facility:[facility] Start: 10-26-2022 End: 10-26-2022 Patient encounter procedure AI MITCHELL [facility] Start: 10-26-2022 End: 10-27-2022 ambulatory AI MITCHELL Facility:[facility] [place] Start: 10-19-2022 End: 10-20-2022 ambulatory Dina Cobb Facility:[facility] Start: 10-19-2022 End: 10-19-2022 Patient encounter procedure Dina Cobb [facility] Start: 10-12-2022 End: 10-13-2022 ambulatory Dina Cobb Facility:[facility] Start: 10-12-2022 End: 10-12-2022 Patient encounter procedure Dina M. Lue [facility] Start: 10-05-2022 ambulatory Dina Lue Facility:[facility] Start: 09-02-2022 End: 09-03-[address] MICAELA DE . Facility: Start: 08-10-2022 End: 08-11-2022 ambulatory DINA M LUE . Facility: Start: 07-22-2022 End: 07-23-2022 ambulatory DINA M LUE . Facility: Start: 07-06-2022 End: 07-07-2022 ambulatory Dina M. Lue Facility:[facility] Start: 07-06-2022 End: 07-06-2022 Patient encounter procedure Dina M. Lue [facility] Start: 07-01-2022 End: 07-02-2022 ambulatory DINA M LUE . Facility: Start: 06-29-2022 End: 06-30-2022 ambulatory Dina M. Lue Facility:[facility] Start: 06-29-2022 End: 06-29-2022 Patient encounter procedure Dina M. Lue [facility] Start: 06-22-2022 End: 06-22-2022 Patient encounter procedure Dina M. Lue [facility] Start: 05-26-2022 End: 05-27-[address] BAYRON SINGH Facility: Start: 05-18-2022 End: 05-18-2022 Patient encounter procedure Dina M. Lue [facility] Start: 05-11-2022 End: 05-11-2022 ambulatory DINA M LUE . Facility:[facility] Start: 05-09-2022 Encounter for preprocedural laboratory examination DINA M LUE . [facility] Start: 05-04-2022 End: 05-05-2022 ambulatory DINA M LUE . Facility:[facility] Start: 05-04-2022 End: 05-05-2022 Encounter for preprocedural laboratory examination DINA M LUE . Facility:[facility] Start: 04-27-2022 End: 04-27-2022 ambulatory DINA M LUE . Facility:[facility] Start: 04-11-2022 End: 04-12-[address] BAYRON SINGH Facility:[facility] Start: 03-28-2022 End: 03-31-[address] BAYRON SINGH Facility:[facility] Start: 03-25-2022 End: 03-25-2022 Lab Drop off Loco MARRERO [facility] Start: 03-25-2022 End: 03-25-2022 Patient encounter procedure Loco MARRERO [facility] Start: 03-02-2022 End: 03-02-2022 Patient encounter procedure AI MITCHELL [facility] Start: 02-09-2022 End: 02-09-2022 Patient encounter procedure Dina M. Lue [facility] Start: 02-02-2022 End: 02-02-2022 Patient encounter procedure Dina M. Lue [facility] Start: 01-26-2022 End: 01-26-2022 Lab Drop off Dina Cobb [facility] Start: 01-26-2022 End: 01-26-2022 Patient encounter procedure Dina Cobb [facility] [place] Start: 03-26-2021 End: 03-27-2021 ambulatory Referral Self Facility:[facility] Start: 06-11-2020 End: 06-12-2020 Patient encounter procedure PROVIDER UNKNOWN Facility:[facility] Procedures Date Procedure Procedure Detail Performing Clinician Start: 03-28-2023 Follow-up visit Follow-up LISA MAGALLANES Start: 03-13-2023 Cystoscopy and biops y of bladder Jeff Booth Comment on above: BLUE LIGHT CYSTOSCOP Y Start: 12-28-2022 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 Dina Cobb Comment on above: random bladder biops ies, BL ureteral washing Start: 12-07-2022 Cystoscopy Dina Cobb Start: 12-22-2021 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 Dina Cobb Start: 07-26-2021 Transurethral resect ion of bladder neoplasm Dina Lue Start: 07-14-2021 Cystoscope, device ( physical object) Dina Lue Bilateral replacemen t of knee joints Dina Lue Breast surgery (qual ifier value) Dina Lue Cholecystectomy Dina Lue H/O: hysterectomy Dina Lue Tonsillectomy Dina Lue Immunizations Immunization Date Immunization Notes Care Provider [facility] 10-26-2022 bacillus calmette-gu nestor vaccine AI RUY [facility] 10-19-2022 bacillus calmette-gu nestor vaccine Dina Lue [facility] 10-12-2022 bacillus [place]-gu [place] vaccine Dina Lue [facility] 09-02-2022 SARS-CoV-2 (COVID-19 ) mRNA-4033 vaccine Dina Lue [facility] 08-04-2022 influenza virus vacc ine, unspecified formulation Dina Lue [facility] 07-26-2022 bacillus [place]-gu [place]or vaccine Dina Lue [facility] 07-06-2022 bacillus [place]-gu [place]or vaccine Dina Lue [facility] 06-29-2022 bacillus [place]-gu [place]or vaccine Dina Lue [facility] 06-22-2022 bacillus [place]-gu [place]or vaccine Dina Lue [facility] 03-02-2022 bacillus [place]-gu [place] vaccine AI RUY [facility] 02-23-2022 bacillus [place]-gu [place] vaccine AI RUY [facility] 02-16-2022 bacillus [place]-gu [place] vaccine AI RUY [facility] 02-09-2022 bacillus [place] vaccine Dina Lue [facility] 02-02-2022 bacillus [place]-gu [place] vaccine Dina Lue [facility] 01-26-2022 bacillus [place]-gu [place] vaccine Dina Lue [facility] 12-17-2021 pneumococcal polysaccharide vaccine, 23 valent Dina Lue [facility] 10-27-2021 bacillus [place]-gu [place] vaccine Dina Lue [facility] 10-19-2021 bacillus [place]-gu [place] vaccine Dina Lue [facility] 10-13-2021 bacillus [place]-gu [place] vaccine Dina Lue [facility] 10-06-2021 bacillus [place]-gu [place] vaccine Dina Lue [facility] 09-29-2021 bacillus [place]-gu [place] vaccine Dina Lue [facility] 11-24-2021 bacillus [place]-gu [place] vaccine Dina Lue [facility] 08-20-2021 SARS-CoV-2 (COVID-19 ) mRNA-1273 vaccine Dina Lue [facility] 08-19-2021 influenza virus vacc ine, unspecified formulation AI MITCHELL [facility] 07-30-2021 influenza virus vacc ine, unspecified formulation Dina Lujavon [facility] 11-26-2020 SARS-CoV-2 (COVID-19 ) mRNA-1273 vaccine Dina Lue [facility] 10-28-2020 SARS-CoV-2 (COVID-19 ) mRNA-1273 vaccine Dina Lujavon [facility] 07-18-2018 influenza virus vacc ine, unspecified formulation Dina Lue [facility] 07-30-2015 pneumococcal polysaccharide vaccine, 23 valent Dina Lue [facility] Payers Date Payer Category Payer Unknown [id number] 2020 Self-pay [id number] 2019 Unknown [id number] 1959 Self-pay [id number] 1959 Unknown [id number] 1960 Unknown [id number] 2.16.8 40.1.494528.3.579.2.647 1958 Unknown [id number] 2.16.84 0.1.514443.3.579.2.593 1958 Unknown [id number] 2.16.84 0.1.265861.3.579.2.593 1958 Unknown [id number] 2.16.84 0.1.891495.3.579.2.593 1958 Unknown [id number] 2.16.84 0.1.075994.3.579.2.593 1958 Unknown [id number] 2.16.84 0.1.684757.3.579.2.593 1958 Unknown [id number] 2.16.84 0.1.104449.3.579.2.593 1958 Unknown [id number] 2.16.84 0.1.781032.3.579.2.593 1958 Unknown [id number] 2.16.84 0.1.632284.3.579.2.593 1958 Unknown [id number] 2.16.84 0.1.519059.3.579.2.593 1958 Unknown [id number] 2.16.84 0.1.482375.3.579.2.593 1958 Unknown [id number] 2.16.84 0.1.795184.3.579.2.593 1958 Unknown [id number] 2.16.84 0.1.736837.3.579.2.593 1958 Unknown [id number] 2.16.84 0.1.516883.3.579.2.593 1958 Unknown [id number] 2.16.84 0.1.017804.3.579.2.593 1958 Unknown [id number] 2.16.84 0.1.905831.3.579.2.593 1958 Unknown [id number] 2.16.84 0.1.793294.3.579.2.593 1958 Unknown [id number] 2.16.8 40.1.335746.3.579.2.727 1958 Unknown [id number] 2.16.8 40.1.018226.3.579.2.727 1958 Unknown [id number] 2.16.8 40.1.636502.3.579.2.72 1958 Unknown [id number] 2.16.8 40.1.613425.3.579.2.72 1958 Unknown [id number] 2.16.8 40.1.046720.3.579.2.727 1958 Unknown [id number] 2.16.8 40.1.218904.3.579.2.727 1958 Unknown [id number] 2.16.8 40.1.795993.3.579.2.727 1958 Unknown [id number] 2.16.8 40.1.218158.3.579.2.727 1958 Unknown [id number] 2.16.8 40.1.269572.3.579.2.727 1958 Unknown [id number] 2.16.8 40.1.708910.3.579.2.727 1958 Unknown [id number] 2.16.8 40.1.892205.3.579.2.727 1958 Unknown [id number] 2.16.8 40.1.331383.3.579.2.727 1958 Unknown [id number] 2.16.8 40.1.888733.3.579.2.727 1958 Unknown [id number] 2.16.8 40.1.085548.3.579.2.72 1958 Unknown [id number] 2.16.8 40.1.585737.3.579.2.727 1958 Unknown [id number] 2.16.8 40.1.745306.3.579.2.727 1958 Unknown [id number] 2.16.8 40.1.909317.3.579.2.727 1958 Unknown [id number] 2.16.8 40.1.914359.3.579.2.727 1958 Unknown [id number] 2.16.8 40.1.710762.3.579.2.727 1958 Unknown [id number] 2.16.84 0.1.032940.3.579.2.1259 Unknown [id number] 2.16.84 0.1.904825.3.579.2.593 Unknown [id number] 2.16.8 40.1.253285.3.579.2.531 Social History Date Type Detail Facility Start: 01-26-2022 End: 10-12-2022 Tobacco smoking status Ex-smoker (finding) [facility] Tobacco smoking status Never [facility] Sex Assigned At Female [facility] Start: 1960 Sex Assigned At Female [facility] Functional Status Date Assessment Result Facility 01-04-2023 Functional Status N/A [facility] 10-26-2022 Functional Status N/A [facility] 10-19-2022 Functional Status N/A [facility] 10-12-2022 Functional Status N/A [facility] 07-06-2022 Functional Status N/A [facility] 06-22-2022 Functional Status N/A [facility] 05-18-2022 Functional Status N/A [facility] Clinical Notes 01-26-2022 to 10-04-2023 Note Date & Type Note Facility 10-04-2023 Note Satisfactory for michele luation. Examination of the ThinPrep slide reveals benign urothelial cells and squamous cells in a background of lubricant. [facility] Comment on above: Order Comment: Via c ysto Performed By: #### L [id number] ####[facility] ([facility]AK[facility])[address] [place] [address] 10-04-2023 Note I PATIENT: Daniella Bejarano DATE OF : 1960 DATE OF VISIT: 10/04/23 Urology Clinic H&P LISA ZELAYA M.D., F.A.C.S. Chief Complaint BCG unresponsive CIS HPI Ms. Daniella Bejarano is a 63 y.o. 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 She presents for follow-up Ms. Bejarano developed recurrent UTI in 06/2021 and had a cystoscopy 07/14/2021 revealed a bladder lesion. Subsequently, Ms. Bejarano Had the following procedures by her local urologist Dina Cobb MD - 07/23/2021: underwent TURBT revealed high-grade invasive papillary urothelial carcinoma, pT1 muscle not in specimen for evaluation. -08/25/2021: ReTURBT negative for disease, muscle present and uninvolved. - 09/22/2021: started intravesical BCG induction course #1 weekly x6 completed 10/27/2021. - 12/23/2021: underwent TURBT postoperative gemcitabine for recurrent bladder tumor. 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 - 01/26/2022: started BCG induction course #2 weekly x6 completed 03/02/2022. - 04/2022: surveillance cystoscopy revealed calcified regrowth on left lateral wall. - 05/12/2022: underwent TURBT, pathology revealed no evidence of urothelial carcinoma recurrence. - 06/22/2022: continued on BCG maintenance, completed BCG maintenance #1 weekly x3 on 07/06/2022. - 06/2022: CT urogram: Reported to be negative - 10/12/2022: completed BCG maintenance #2 weekly x3 on 10/26/2022. - 12/07/2022: a 3-month surveillance cystoscopy revealed a 2 mm minimally hyperemic submucosal area on left posterior wall, described not velvety erythematous or raised. Urethra without lesion. However, cytology showed atypical cells suspicious for high-grade urothelial carcinoma. - 12/28/2022: underwent cystoscopy with narrowband imaging, TURBT with bilateral upper tract washing, bilateral retrograde pyelograms. Findings: Irregularity on left lateral wall which was obtained given prior resection, cold cup biopsy was obtained from left lateral wall, dome, right lateral wall, and posterior wall targeting potentially in the irregular site. No discrete tumors or lesion. Pathology revealed in the right posterior bladder wall, dysplasia bordering carcinoma in situ. Right and left ureteral cytology washing revealed hypocellular specimen insufficient for diagnosis bilaterally. Therefore she was referred to me for further management. Ms. Bjearano underwent white and bluelight cystoscopy, bilateral RPG, transurethral bladder biopsy and fulguration x3, EUA on 03/13/2023. Findings: Rigid cystourethroscopy: Meatus and urethra: Normal without lesions. Bladder: Bilateral ureteral orifice noted in orthotopic location effluxing clear urine. Bladder washing for cytology was obtained. Evidence of prior resection site noted in the following location: right lateral wall, right posterior wall, dome/left anterior wall, left lateral wall, all with mild erythema noted on white-light cystoscopy. No visible papillary lesions identified on white-light cystoscopy. However, prior biopsy sites had suspicious red fluorescence on bluelight cystoscopy (mild fluorescence at right lateral wall and dome/left anterior wall), whereas distinct intense fluorescence noted at (right posterior wall) all suspicious for possible CIS. No other tumors or suspicious lesions noted on white or bluelight cystoscopy elsewhere in the bladder or bladder neck. 2. Transurethral resection of erythematous patches at right lateral wall, right posterior wall, and left anterior with resection of these lesions in their entirety down to the muscle layer was performed under white-light cystoscopy, confirmed no evidence of residual fluorescence on bluelight cystoscopy following resection. Total resection area was 3.0 cm 3. Bilateral retrograde pyelogram: Revealed no evidence of filling defect within the ureter or pelvicalyceal system, no evidence of hydroureter or hydronephrosis. Prompt drainage of contrast and normal study bilaterally. 4. Exam under anesthesia: Revealed mobile bladder without 3D palpable masses or bladder base induration. Pathology revealed urothelial mucosa and muscularis propria both negative for neoplasia in right lateral and right posterior wall biopsies, also acute and granulomatous inflammation with no evidence of malignancy in left anterior wall biopsy confirmed on IHC staining. Urine cytology was negative. Since it has been more than 8 weeks by the time she was referred to me and when she had outside bladder biopsy confirming BCG unresponsive CIS performed on 12/28/2022 and given bladder biopsy I performed on 03/13/2023 revealed no evidence of malignancy, th (more content not included)... [facility] 10-04-2023 Note Patient ID: Daniella Bejarano is a 63 y.o. female. Cystoscopy Date/Time: 10/04/2023 2:50 PM Performed by: Lisa Zelaya MD Authorized by: Lisa Zelaya MD Procedure - Bladder Cystoscopy: Procedure details: cystoscopy Post-procedure: Patient tolerance: Patient tolerated the procedure well with no immediate complications Preprocedure diagnosis BCG unresponsive CIS Postprocedure diagnosis BCG unresponsive CIS Procedure Flexible Cystourethroscopy Attending surgeon Lisa Zelaya MD Anesthesia 2% lidocaine jelly intraurethrally Complications None Indications Ms. Daniella Bejarano is 63 y.o. female undergoing a flexible cystoscopy for the above mentioned indications. Informed consent was obtained. Findings Cystoscopy revealed normal urethral urothelium with no strictures or lesions. The right and left ureteral orifices were in the normal anatomic position with normal bladder mucosa and no tumors, masses or stones were seen. Prior resection site at posterior, right lateral wall, left lateral wall noted with evidence of scarring. However, there was evidence of scattered erythematous lesions; 1 at right lateral wall 2-3 mm in size close to prior resection site, 1 lesion at left lateral wall 2-3 mm in saize, group of small erythematous lesions at right lateral wall approzimately 1-2 cm in size Urine cytology obtained. Procedure The patient was placed in supine position and prepped and draped in sterile fashion with lidocaine jelly per urethra for anesthesia. A timeout was performed. The 14F flexible cystoscope was lubricated and gently placed through the urethra and into the bladder. The bladder was completely visualized. The cystoscope was retroflexed and the bladder neck visualized. The scope was withdrawn and the procedure terminated. The patient tolerated the procedure well. Plan 1. See office note for details. ILisa MD was present in the procedure room for the entire procedure. [facility] 06-28-2023 Note Satisfactory for michele luation. Examination of the ThinPrep slide reveals squamous cells and scattered urothelial cells in a background of few inflammatory cells and lubricant. [facility] Comment on above: Order Comment: Via c nicoleto Performed By: #### L [id number] #### [facility] (BEAKER) [address] [place] [address] 06-28-2023 Note Patient ID: Daniella Bejarano is a 63 y.o. female. Cystoscopy Date/Time: 06/28/2023 2:29 PM Performed by: Lisa Zelaya MD Authorized by: Lisa Zelaya MD Procedure - Bladder Cystoscopy: Procedure details: cystoscopy Post-procedure: Patient tolerance: Patient tolerated the procedure well with no immediate complications Preprocedure diagnosis BCG unresponsive CIS Postprocedure diagnosis BCG unresponsive CIS Procedure Flexible Cystourethroscopy Attending surgeon Lisa Zelaya MD Anesthesia 2% lidocaine jelly intraurethrally Complications None Indications Ms. Daniella Bejarano is 63 y.o. female undergoing a flexible cystoscopy for the above mentioned indications. Informed consent was obtained. Findings Cystoscopy revealed normal urethral urothelium with no strictures or lesions. The right and left ureteral orifices were in the normal anatomic position with normal bladder mucosa and no tumors, masses or stones were seen. Prior resection site at posterior, right lateral wall, left lateral wall noted with evidence of scarring, without tumors or lesions. Urine cytology obtained. Procedure The patient was placed in supine position and prepped and draped in sterile fashion with lidocaine jelly per urethra for anesthesia. A timeout was performed. The 14F flexible cystoscope was lubricated and gently placed through the urethra and into the bladder. The bladder was completely visualized. The cystoscope was retroflexed and the bladder neck visualized. The scope was withdrawn and the procedure terminated. The patient tolerated the procedure well. Plan 1. See office note for details. I, Lisa Zelaya MD was present in the procedure room for the entire procedure. [facility] 06-28-2023 Note I PATIENT: Daniella Bejarano DATE OF : 1960 DATE OF VISIT: 06/28/23 Urology Clinic H&P LISA ZELAYA M.D., F.A.C.S. Chief Complaint BCG unresponsive CIS HPI Ms. Daniella Bejarano is a 63 y.o. 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 She presents for follow-up Ms. Bejarano developed recurrent UTI in 06/2021 and had a cystoscopy 07/14/2021 revealed a bladder lesion. Subsequently, Ms. Bejarano Had the following procedures by her local urologist Dina Cobb MD - 07/23/2021: underwent TURBT revealed high-grade invasive papillary urothelial carcinoma, pT1 muscle not in specimen for evaluation. -08/25/2021: ReTURBT negative for disease, muscle present and uninvolved. - 09/22/2021: started intravesical BCG induction course #1 weekly x6 completed 10/27/2021. - 12/23/2021: underwent TURBT postoperative gemcitabine for recurrent bladder tumor. 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 - 01/26/2022: started BCG induction course #2 weekly x6 completed 03/02/2022. - 04/2022: surveillance cystoscopy revealed calcified regrowth on left lateral wall. - 05/12/2022: underwent TURBT, pathology revealed no evidence of urothelial carcinoma recurrence. - 06/22/2022: continued on BCG maintenance, completed BCG maintenance #1 weekly x3 on 07/06/2022. - 06/2022: CT urogram: Reported to be negative - 10/12/2022: completed BCG maintenance #2 weekly x3 on 10/26/2022. - 12/07/2022: a 3-month surveillance cystoscopy revealed a 2 mm minimally hyperemic submucosal area on left posterior wall, described not velvety erythematous or raised. Urethra without lesion. However, cytology showed atypical cells suspicious for high-grade urothelial carcinoma. - 12/28/2022: underwent cystoscopy with narrowband imaging, TURBT with bilateral upper tract washing, bilateral retrograde pyelograms. Findings: Irregularity on left lateral wall which was obtained given prior resection, cold cup biopsy was obtained from left lateral wall, dome, right lateral wall, and posterior wall targeting potentially in the irregular site. No discrete tumors or lesion. Pathology revealed in the right posterior bladder wall, dysplasia bordering carcinoma in situ. Right and left ureteral cytology washing revealed hypocellular specimen insufficient for diagnosis bilaterally. Therefore she was referred to [place] for further management. Ms. Bejarano underwent white and bluelight cystoscopy, bilateral RPG, transurethral bladder biopsy and fulguration x3, EUA on 03/13/2023. Findings: Rigid cystourethroscopy: Meatus and urethra: Normal without lesions. Bladder: Bilateral ureteral orifice noted in orthotopic location effluxing clear urine. Bladder washing for cytology was obtained. Evidence of prior resection site noted in the following location: right lateral wall, right posterior wall, dome/left anterior wall, left lateral wall, all with mild erythema noted on white-light cystoscopy. No visible papillary lesions identified on white-light cystoscopy. However, prior biopsy sites had suspicious red fluorescence on bluelight cystoscopy (mild fluorescence at right lateral wall and dome/left anterior wall), whereas distinct intense fluorescence noted at (right posterior wall) all suspicious for possible CIS. No other tumors or suspicious lesions noted on white or bluelight cystoscopy elsewhere in the bladder or bladder neck. 2. Transurethral resection of erythematous patches at right lateral wall, right posterior wall, and left anterior with resection of these lesions in their entirety down to the muscle layer was performed under white-light cystoscopy, confirmed no evidence of residual fluorescence on bluelight cystoscopy following resection. Total resection area was 3.0 cm 3. Bilateral retrograde pyelogram: Revealed no evidence of filling defect within the ureter or pelvicalyceal system, no evidence of hydroureter or hydronephrosis. Prompt drainage of contrast and normal study bilaterally. 4. Exam under anesthesia: Revealed mobile bladder without 3D palpable masses or bladder base induration. Pathology revealed urothelial mucosa and muscularis propria both negative for neoplasia in right lateral and right posterior wall biopsies, also acute and granulomatous inflammation with no evidence of malignancy in left anterior wall biopsy confirmed on IHC staining. Urine cytology was negative. Since it has been more than 8 weeks by the time she was referred to me and when she had outside bladder biopsy confirming BCG unresponsive CIS performed on 12/28/2022 and given bladder biopsy I performed on 03/13/2023 revealed no evidence of malignancy, th (more content not included)... [facility] 06-02-2023 Note Bernarda Hagan RN e xplained the procedure to Daniella A Neikirk and Daniella A Neikirk verbalized understanding. Daniella A Neikirk was then placed on the exam table in Supine frog leg position, then prepped in sterile fashion using aseptic technique. A 14 fr. coude gutierrez catheter was inserted without complications, adequate urine return was achieved, then 10 ml of sterile water were used to inflate the balloon. Daniella A Neikirk tolerated the procedure well. After gutierrez was in place, Daniella A Neikirk was placed in a wheelchair, given her bag of personal belongings, then transported by Bernarda Hagan RN down to the Infusion Center. Bernarda Hagan RN then informed Infusion part time receptionist that Daniella A Neikirk was ready for treatment. [facility] 05-26-2023 Note Danielle Briggs MA expl ained the procedure to Daniella A Neikirk and Daniella A Neikirk verbalized understanding. Daniella A Neikirk was then placed on the exam table in Supine frog leg position, then prepped in sterile fashion using aseptic technique. A 14 fr. coude gutierrez catheter was inserted without complications, adequate urine return was achieved, then 10 ml of sterile water were used to inflate the balloon. Daniella A Neikirk tolerated the procedure well. After gutierrez was in place, Daniella A Neikirk was placed in a wheelchair, given her bag of personal belongings, [place] [id number] down to the Infusion Center. Danielle Briggs MA then informed Infusion part time receptionist that Daniella A Neikirk was ready for treatment. [facility] 05-19-2023 Note [id number] Zaria Jackson exp lained the procedure to Daniella A Neikirk and Daniella A Neikirk verbalized understanding. Daniella A Neikirk was then placed on the exam table in Supine frog leg position, then prepped in sterile fashion using aseptic technique. A 14 fr. coude gutierrez catheter was inserted without complications, adequate urine return was achieved, then 10 ml of sterile water were used to inflate the balloon. Daniella A Neikirk tolerated the procedure well. After gutierrez was in place, Daniella A Neikirk was placed in a wheelchair, given her bag of personal belongings, then transported by [id number] down to the Infusion Center. [id number] then informed Infusion part time receptionist that Daniella A Neikirk was ready for treatment. [facility] 05-12-2023 Note 1110 Patient arrived by wheelchair with gutierrez catheter intact, draining clear pale yellow urine. Jose Roberto Rivera RN 1130 Reviewed home care. Drink 60 ounces of fluid over next 24 hours. Flush toilet twice for next 6 hours after each void. Call Dr. Zelaya office if fever greater than 100.4 or blood in urine or chills. CPeroni RN 1400 Patient tolerated well, no leaking. Two drugs, at separate times, intravesicular instillations. CPetersRN [facility] 05-12-2023 Note 7991Zaria Jackson expl ained the procedure to Daniella A Neikirk and Daniella A Neikirk verbalized understanding. Daniella A Neikirk was then placed on the exam table in Supine frog leg position, then prepped in sterile fashion using aseptic technique. A 14 fr. coude gutierrez catheter was inserted without complications, adequate urine return was achieved, then 10 ml of sterile water were used to inflate the balloon. Daniella Perez Neikirk tolerated the procedure well. After gutierrez was in place, Daniella Perez Neikirk was placed in a wheelchair, given her bag of personal belongings, then transported by [id number] down to the Infusion Center. 7991 then informed Infusion part time receptionist that Daniella Perez Neikirk was ready for treatment. [facility] 05-05-2023 Note 1040- pt arrived to infusino dept via w/c with gutierrez catheter in place. 1055- gutierrez assessed to have 50ml clear yellow urine, pt states no issues with insertion. 1116- gemcitabine instilled. 1 hour dwell to start at 1119. 1150- pt resting eyes closed. 1219- gutierrez drained 275ml total. Pt reports last 10 minutes were hard but had no leaking or spasms. 1231-docetaxel instilled. 1 hour dwell time start at 1235. 1300- pt reports no issues, tolerating dwell. 1335- gutierrez catheter drained a total of 150ml. Pt tolerated dwell very well, no leaking or spasms.gutierrez catheter removed after completely drained. [facility] 05-05-2023 Note Zaria borjae d the procedure to Daniella Perez Neikirk and Daniella A Neikirk verbalized understanding. Daniella Dillikirk was then placed on the exam table in Supine frog leg position, then prepped in sterile fashion using aseptic technique. A 14 fr. coude gutierrez catheter was inserted without complications, adequate urine return was achieved, then 10 ml of sterile water were used to inflate the balloon. Daniella A Neikirk tolerated the procedure well. After gutierrez was in place, Daniella Perez Neikirk was placed in a wheelchair, given her bag of personal belongings, then transported by Zaria Jackson down to the Infusion Center. [id number] Zaria collier informed Infusion part time receptionist that Daniella Perez Neikirk was ready for treatment. [facility] 04-28-2023 Note Pt arrived with fole y in place from urology clinic draining clear yellow urine. Docetaxel instilled and held 60 minutes, drained to gutierrez bag. Gemcitabine instilled and held 60 minutes, drained to gutierrez bag. Gutierrez removed upon completion, tolerated treatment well. Reviewed home precautions with patient. [facility] 04-28-2023 Note [id number] Zaira Jackson exp lained the procedure to Daniella Bejarano and Daniella Bejarano verbalized understanding. Daniella Bejarano was then placed on the exam table in Supine frog leg position, then prepped in sterile fashion using aseptic technique. A 14 fr. coude gutierrez catheter was inserted without complications, adequate urine return was achieved, then 10 ml of sterile water were used to inflate the balloon. Daniella Bejarano tolerated the procedure well. After gutierrez was in place, Daniella Bejarano was placed in a wheelchair, given her bag of personal belongings, then transported by 7991 down to the Infusion Center. 7991 then informed Infusion part time receptionist that Danilela Bejarano was ready for treatment. Zaheer Briggs [facility] 04-04-2023 Note I PATIENT: Daniella Bejarano DATE OF : 1960 DATE OF VISIT: 04/09/23 Urology Clinic H&P LISA ZELAYA M.D., F.A.C.S. Chief Complaint BCG unresponsive CIS HPI Ms. Daniella Bejarano is a 62 y.o. 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 She presents for follow-up Ms. Bejarano developed recurrent UTI in 06/2021 and had a cystoscopy 07/14/2021 revealed a bladder lesion. Subsequently, Ms. Bejarano Had the following procedures by her local urologist Dina Cobb MD - 07/23/2021: underwent TURBT revealed high-grade invasive papillary urothelial carcinoma, pT1 muscle not in specimen for evaluation. -08/25/2021: ReTURBT negative for disease, muscle present and uninvolved. - 09/22/2021: started intravesical BCG induction course #1 weekly x6 completed 10/27/2021. - 12/23/2021: underwent TURBT postoperative gemcitabine for recurrent bladder tumor. 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 - 01/26/2022: started BCG induction course #2 weekly x6 completed 03/02/2022. - 04/2022: surveillance cystoscopy revealed calcified regrowth on left lateral wall. - 05/12/2022: underwent TURBT, pathology revealed no evidence of urothelial carcinoma recurrence. - 06/22/2022: continued on BCG maintenance, completed BCG maintenance #1 weekly x3 on 07/06/2022. - 06/2022: CT urogram: Reported to be negative - 10/12/2022: completed BCG maintenance #2 weekly x3 on 10/26/2022. - 12/07/2022: a 3-month surveillance cystoscopy revealed a 2 mm minimally hyperemic submucosal area on left posterior wall, described not velvety erythematous or raised. Urethra without lesion. However, cytology showed atypical cells suspicious for high-grade urothelial carcinoma. - 12/28/2022: underwent cystoscopy with narrowband imaging, TURBT with bilateral upper tract washing, bilateral retrograde pyelograms. Findings: Irregularity on left lateral wall which was obtained given prior resection, cold cup biopsy was obtained from left lateral wall, dome, right lateral wall, and posterior wall targeting potentially in the irregular site. No discrete tumors or lesion. Pathology revealed in the right posterior bladder wall, dysplasia bordering carcinoma in situ. Right and left ureteral cytology washing revealed hypocellular specimen insufficient for diagnosis bilaterally. Therefore she was referred to ne for further management. Ms. Bejarano underwent white and bluelight cystoscopy, bilateral RPG, transurethral bladder biopsy and fulguration x3, EUA on 03/13/2023. Findings: Rigid cystourethroscopy: Meatus and urethra: Normal without lesions. Bladder: Bilateral ureteral orifice noted in orthotopic location effluxing clear urine. Bladder washing for cytology was obtained. Evidence of prior resection site noted in the following location: right lateral wall, right posterior wall, dome/left anterior wall, left lateral wall, all with mild erythema noted on white-light cystoscopy. No visible papillary lesions identified on white-light cystoscopy. However, prior biopsy sites had suspicious red fluorescence on bluelight cystoscopy (mild fluorescence at right lateral wall and dome/left anterior wall), whereas distinct intense fluorescence noted at (right posterior wall) all suspicious for possible CIS. No other tumors or suspicious lesions noted on white or bluelight cystoscopy elsewhere in the bladder or bladder neck. 2. Transurethral resection of erythematous patches at right lateral wall, right posterior wall, and left anterior with resection of these lesions in their entirety down to the muscle layer was performed under white-light cystoscopy, confirmed no evidence of residual fluorescence on bluelight cystoscopy following resection. Total resection area was 3.0 cm 3. Bilateral retrograde pyelogram: Revealed no evidence of filling defect within the ureter or pelvicalyceal system, no evidence of hydroureter or hydronephrosis. Prompt drainage of contrast and normal study bilaterally. 4. Exam under anesthesia: Revealed mobile bladder without 3D palpable masses or bladder base induration. Pathology revealed urothelial mucosa and muscularis propria both negative for neoplasia in right lateral and right posterior wall biopsies, also acute and granulomatous inflammation with no evidence of malignancy in left anterior wall biopsy confirmed on IHC staining. Urine cytology was negative. Today, we conducted a telemedicine visit with Ms. Bejarano. Her catheter was removed 2 days after procedure with no issues. Currently, she denies gross hematuria, irritative bladder symptoms, reporting urinary frequency every 2-3 hours, nocturia x2, sometim (more content not included)... [facility] 03-28-2023 Note I PATIENT: Daniella Bejarano DATE OF : 1960 DATE OF VISIT: 03/28/23 Urology Clinic H&P LISA ZELAYA M.D., F.A.C.S. Chief Complaint BCG unresponsive CIS HPI Ms. Daniella Bejarano is a 62 y.o. 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 She presents for follow-up Ms. Bejarano developed recurrent UTI in 06/2021 and had a cystoscopy 07/14/2021 revealed a bladder lesion. Subsequently, Ms. Bejarano Had the following procedures by her local urologist Dina Cobb MD - 07/23/2021: underwent TURBT revealed high-grade invasive papillary urothelial carcinoma, pT1 muscle not in specimen for evaluation. -08/25/2021: ReTURBT negative for disease, muscle present and uninvolved. - 09/22/2021: started intravesical BCG induction course #1 weekly x6 completed 10/27/2021. - 12/23/2021: underwent TURBT postoperative gemcitabine for recurrent bladder tumor. 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 - 01/26/2022: started BCG induction course #2 weekly x6 completed 03/02/2022. - 04/2022: surveillance cystoscopy revealed calcified regrowth on left lateral wall. - 05/12/2022: underwent TURBT, pathology revealed no evidence of urothelial carcinoma recurrence. - 06/22/2022: continued on BCG maintenance, completed BCG maintenance #1 weekly x3 on 07/06/2022. - 06/2022: CT urogram: Reported to be negative - 10/12/2022: completed BCG maintenance #2 weekly x3 on 10/26/2022. - 12/07/2022: a 3-month surveillance cystoscopy revealed a 2 mm minimally hyperemic submucosal area on left posterior wall, described not velvety erythematous or raised. Urethra without lesion. However, cytology showed atypical cells suspicious for high-grade urothelial carcinoma. - 12/28/2022: underwent cystoscopy with narrowband imaging, TURBT with bilateral upper tract washing, bilateral retrograde pyelograms. Findings: Irregularity on left lateral wall which was obtained given prior resection, cold cup biopsy was obtained from left lateral wall, dome, right lateral wall, and posterior wall targeting potentially in the irregular site. No discrete tumors or lesion. Pathology revealed in the right posterior bladder wall, dysplasia bordering carcinoma in situ. Right and left ureteral cytology washing revealed hypocellular specimen insufficient for diagnosis bilaterally. Therefore she was referred to me for further management. Ms. Bejarano underwent white and bluelight cystoscopy, bilateral RPG, transurethral bladder biopsy and fulguration x3, EUA on 03/13/2023. Findings: Rigid cystourethroscopy: Meatus and urethra: Normal without lesions. Bladder: Bilateral ureteral orifice noted in orthotopic location effluxing clear urine. Bladder washing for cytology was obtained. Evidence of prior resection site noted in the following location: right lateral wall, right posterior wall, dome/left anterior wall, left lateral wall, all with mild erythema noted on white-light cystoscopy. No visible papillary lesions identified on white-light cystoscopy. However, prior biopsy sites had suspicious red fluorescence on bluelight cystoscopy (mild fluorescence at right lateral wall and dome/left anterior wall), whereas distinct intense fluorescence noted at (right posterior wall) all suspicious for possible CIS. No other tumors or suspicious lesions noted on white or bluelight cystoscopy elsewhere in the bladder or bladder neck. 2. Transurethral resection of erythematous patches at right lateral wall, right posterior wall, and left anterior with resection of these lesions in their entirety down to the muscle layer was performed under white-light cystoscopy, confirmed no evidence of residual fluorescence on bluelight cystoscopy following resection. Total resection area was 3.0 cm 3. Bilateral retrograde pyelogram: Revealed no evidence of filling defect within the ureter or pelvicalyceal system, no evidence of hydroureter or hydronephrosis. Prompt drainage of contrast and normal study bilaterally. 4. Exam under anesthesia: Revealed mobile bladder without 3D palpable masses or bladder base induration. Pathology revealed urothelial mucosa and muscularis propria both negative for neoplasia in right lateral and right posterior wall biopsies, also acute and granulomatous inflammation with no evidence of malignancy in left anterior wall biopsy confirmed on IHC staining. Urine cytology was negative. At this visit, Ms. Bejarano presents for follow-up accompanied by daughter. Her catheter was removed 2 days after procedure with no issues. Currently, she denies gross hematuria, irritative bladder symptoms, reporting urinary frequency every 2-3 hours, noct (more content not included)... [facility] 03-13-2023 Note Patient: Daniella stevens Procedure Summary Date: 03/13/23 Room / Location: [facility] OPERATING ROOM 07 / [facility] Operating Room Anesthesia Start: 0730 Anesthesia Stop: 0846 Procedures: White and Blue-light cystoscopy, BLADDER BIOPSY, FULGURATION X3 Retrograde pyelogram, EUA (Bilateral) Diagnosis: Malignant neoplasm of posterior wall of urinary bladder (CMS/HCC) (Malignant neoplasm of posterior wall of urinary bladder (CMS/HCC) [C67.4]) Surgeons: Lisa Zelaya MD Responsible Provider: Aleksey Barraza MD Anesthesia Type: general ASA Status: 3 Anesthesia Type: general Vitals Value Taken Time BP 111/40 03/13/23 0911 Temp 36 ???C (96.8 ???F) 03/13/23 0841 Pulse 76 03/13/23 0911 Resp 20 03/13/23 0911 SpO2 100 % 03/13/23 0911 Anesthesia Post Evaluation Patient location during evaluation: PACU Patient participation: complete - patient participated Level of consciousness: awake and alert Pain score: 2 Pain management: adequate Airway patency: patent Cardiovascular status: hemodynamically stable Respiratory status: room air and nonlabored ventilation Hydration status: euvolemic Comments: Patient received medication for bladder spasm. Patient is hemodynamically stable and is able to be discharged from PACU per anesthesia protocol. There were no known notable events for this encounter. [facility] 03-13-2023 Note Patient: Daniella stevens Procedure Summary Date: 03/13/23 Room / Location: [facility] OPERATING ROOM 07 / [facility] Operating Room Anesthesia Start: 30 Anesthesia Stop: 845 Procedures: White and Blue-light cystoscopy, BLADDER BIOPSY, FULGURATION X3 Retrograde pyelogram, EUA (Bilateral) Diagnosis: Malignant neoplasm of posterior wall of urinary bladder (CMS/HCC) (Malignant neoplasm of posterior wall of urinary bladder (CMS/HCC) [C67.4]) Surgeons: Lisa Zelaya MD Responsible Provider: Aleksey Barraza MD Anesthesia Type: general ASA Status: 3 Anesthesia Post Transport Note Transport to: PACU O2 Route: face mask Oxygen Flow (L/min): 8 Patient Monitor: direct observation Transport: uneventful Patient condition is: stable [facility] 03-13-2023 Note Airway Date/Time: 03/13/2023 7:47 AM Urgency: elective Airway not difficult General Information and Staff Patient location during procedure: OR Anesthesiologist: Aleksey Barraza MD Resident/CAMPAIGN ADVISOR/CAA: JOAN Le Performed: other anesthesia staff Indications and Patient Condition Indications for airway management: anesthesia and airway protection Spontaneous Ventilation: absent Sedation level: deep Preoxygenated: yes Mask difficulty assessment: 1 - vent by mask Final Airway Details Final airway type: endotracheal airway Successful airway: ETT Cuffed: yes Successful intubation technique: video laryngoscopy Facilitating devices/methods: intubating stylet Endotracheal tube insertion site: oral Blade: Carreon Blade size: #3 ETT size (mm): 7.5 Cormack-Lehane Classification: grade I - full view of glottis Placement verified by: chest auscultation and capnometry Measured from: lips ETT to lips (cm): 23 Number of attempts at approach: 1 Number of other approaches attempted: 0 [facility] 03-13-2023 Note Satisfactory for michele luation. Examination of the ThinPrep slide reveals rare atypical urothelial cells with increased n/c ratio and mild nuclear membrane irregularities. [facility] Comment on above: Order Comment: Pre-o p diagnosis: Malignant neoplasm of posterior wall of urinary bladder (CMS/HCC) [C67.4] Performed By: #### L [id number] #### [facility] [address] [place] [address] 03-13-2023 Note Patient: Daniella stevens Procedure Information Date/Time: 03/13/23 0730 Procedures: White and Blue-light cystoscopy, TURBT, Retrograde pyelogram, EUA (Bilateral) - C-Arm, [employer] Blue Light Roper#[id number], notified reps Location: [facility] OPER[facility] 07 / [facility] Operating Room Surgeons: Lisa Zelaya MD Relevant Problems No relevant active problems Clinical information reviewed: Tobacco Allergies Meds Med Hx Surg Hx OB Status Fam Hx Soc Hx Physical Exam Airway Mallampati: III Cardiovascular Rhythm: regular Rate: normal Dental - normal exam Pulmonary Abdominal (+) obese Other findings: Quit smoking 2014. AIDAN Anesthesia Plan ASA 3 general The patient is not a current smoker. Patient was previously instructed to abstain from smoking on day of procedure. Patient did not smoke on day of procedure. intravenous induction Postoperative administration of opioids is intended. Anesthetic plan and risks discussed with patient. Plan discussed with CAA. Additional Equipment Requests [facility] 02-22-2023 Note Satisfactory for michele luation. Examination of the ThinPrep slide reveals primarily squamous cells with scattered urothelial cells and bacteria. This may represent contamination from the lower female genital tract. [facility] Comment on above: Performed By: #### L [id number] #### [facility] ([place]) [place] [address] 02-22-2023 Note PATIENT: Daniella stevens DATE OF : 1960 DATE OF VISIT: 03/06/23 Urology Clinic H&P LISA ZELAYA M.D., F.A.C.S. Chief Complaint BCG unresponsive CIS HPI Ms. Daniella Bejarano is a 62 y.o. female with history of HTN, left breast cancer s/p radical mastectomy (BHANU) arthritis, GERD, remote DVT treated with Xarelto currently on none, morbid obesity, BMI 42.91 kg/m???, sleep apnea, high-grade urothelial carcinoma of the bladder who presents to discuss management for BCG unresponsive disease. Ms. Bejarano developed recurrent UTI in 06/2021 and had a cystoscopy 07/14/2021 revealed a bladder lesion. Subsequently, Ms. Bejarano Had the following procedures by her local urologist Dina Cobb MD - 07/23/2021: underwent TURBT revealed high-grade invasive papillary urothelial carcinoma, pT1 muscle not in specimen for evaluation. -08/25/2021: ReTURBT negative for disease, muscle present and uninvolved. - 09/22/2021: started intravesical BCG induction course #1 weekly x6 completed 10/27/2021. - 12/23/2021: underwent TURBT postoperative gemcitabine for recurrent bladder tumor. 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 - 01/26/2022: started BCG induction course #2 weekly x6 completed 03/02/2022. - 04/2022: surveillance cystoscopy revealed calcified regrowth on left lateral wall. - 05/12/2022: underwent TURBT, pathology revealed no evidence of urothelial carcinoma recurrence. - 06/22/2022: continued on BCG maintenance, completed BCG maintenance #1 weekly x3 on 07/06/2022. - 06/2022: CT urogram: Reported to be negative - 10/12/2022: completed BCG maintenance #2 weekly x3 on 10/26/2022. - 12/07/2022: a 3-month surveillance cystoscopy revealed a 2 mm minimally hyperemic submucosal area on left posterior wall, described not velvety erythematous or raised. Urethra without lesion. However, cytology showed atypical cells suspicious for high-grade urothelial carcinoma. - 12/28/2022: underwent cystoscopy with narrowband imaging, TURBT with bilateral upper tract washing, bilateral retrograde pyelograms. Findings: Irregularity on left lateral wall which was obtained given prior resection, cold cup biopsy was obtained from left lateral wall, dome, right lateral wall, and posterior wall targeting potentially in the irregular site. No discrete tumors or lesion. Pathology revealed in the right posterior bladder wall, dysplasia bordering carcinoma in situ. Right and left ureteral cytology washing revealed hypocellular specimen insufficient for diagnosis bilaterally. Therefore she was referred to me for further management. At this visit, Ms. Bejarano presents for consultation accompanied by her daughter. She denies gross hematuria, irritative bladder symptoms, however she does have urinary frequency, nocturia x2, sometimes urgency, given mixed urinary incontinence/OAB. No flank pain or weight loss. I had a long discussion with and her family member regarding her clinical presentation, symptoms, exam finding. I reviewed and discussed outside records including consultants notes, operative notes, pathology result. I made my recommendation and assessment and plan. Oncology History No history exists. Past Medical History She has a past medical history of Arthritis, Bladder cancer ([facility]), Breast cancer ([facility]) (2018), GERD (gastroesophageal reflux disease), History of DVT (deep vein thrombosis) (2018), HTN (hypertension), PONV (postoperative nausea and vomiting), and Sleep apnea. Past Surgical History She has a past surgical history that includes Knee Arthroplasty (Right); Cholecystectomy; Mastectomy, radical (Right, 2017); Knee Arthroplasty (Left); Total abdominal hysterectomy w/ bilateral salpingoophorectomy (1989); Transurethral resection of bladder tumor; Tonsillectomy; Cystoscopy; and Bladder surgery. Medications She has a current medication list which includes the following prescription(s): aspirin, ergocalciferol, olmesartan, omeprazole, oxybutynin xl, pantoprazole, albuterol, calcium carb-vitamin d3-vit k2, diclofenac, furosemide, nabumetone, potassium chloride, rivaroxaban, and solifenacin. Current Outpatient Medications: aspirin 81 mg EC tablet, Take 81 mg by mouth in the morning., Disp: , Rfl: ergocalciferol (Vitamin D-2) 1.25 MG (53203 Units) capsule, Take by mouth., Disp: , Rfl: olmesartan (BENIcar) 20 mg tablet, Take 20 mg by mouth in the morning., Disp: , Rfl: omeprazole (PriLOSEC) [address] capsule, Take 40 mg by mouth in the morning and 40 mg in the evening., Disp: , Rfl: oxybutynin XL (Ditropan-XL) 10 mg 24 hr tablet, Take 10 mg by mouth in the morning., Disp: , Rfl: pantoprazole (ProtoNix) 40 mg EC tablet, 1 (one) time each day at the same time., Disp: , Rfl: albuterol 90 mcg/actuation inhaler, INHALE 1-2 PUFFS BY MOUTH EVERY 4 HOURS NEEDED, Disp: , Rfl: calcium carb-vitam (more content not included)... [facility] 01-04-2023 Hospital Discharge instructions Patient Education 01/04/2023 08:33:50 Bladder Cancer Bladder Cancer Bladder cancer is an abnormal growth of tissue in the bladder. The bladder is the balloon-like sac in the pelvis. It collects and stores urine that comes from the kidneys through the ureters. The bladder wall is made of layers. If cancer spreads into these layers and through the wall of the bladder, it becomes more difficult to treat. What are the causes? The cause of this condition is not known. What increases the risk? The following factors may make you more likely to develop this condition: Smoking. Workplace risks (occupational exposures), such as rubber, leather, textile, dyes, chemicals, and paint. Being white. Your age. Most people with bladder cancer are over the age of 55. Being male. Having chronic bladder inflammation. Having a personal history of bladder cancer. Having a family history of bladder cancer (heredity). Having had chemotherapy or radiation therapy to the pelvis. Having been exposed to arsenic. What are the signs or symptoms? Initial symptoms of this condition include: Blood in the urine. Painful urination. Frequent bladder or urine infections. Increase in urgency and frequency of urination. Advanced symptoms of this condition include: Not being able to urinate. Low back pain on one side. Loss of appetite. Weight loss. Fatigue. Swelling in the feet. Bone pain. How is this diagnosed? This condition is diagnosed based on your medical history, a physical exam, urine tests, lab tests, imaging tests, and your symptoms. You may also have other tests or procedures done, such as: A narrow tube being inserted into your bladder through your urethra (cystoscopy) in order to view the lining of your bladder for tumors. A biopsy to sample the tumor to see if cancer is present. If cancer is present, it will then be staged to determine its severity and extent. Staging is an assessment of: The size of the tumor. Whether the cancer has spread. Where the cancer has spread. It is important to know how deeply into the bladder wall cancer has grown and whether cancer has spread to any other parts of your body. Staging may require blood tests or imaging tests, such as a CT scan, MRI, bone scan, or chest X-ray. How is this treated? Based on the stage of cancer, one treatment or a combination of treatments may be recommended. The most common forms of treatment are: Surgery to remove the cancer. Procedures that may be done include transurethral resection and cystectomy. Radiation therapy. This is high-energy X-rays or other particles. This is often used in combination with chemotherapy. Chemotherapy. During this treatment, medicines are used to kill cancer cells. Immunotherapy. This uses medicines to help your own immune system destroy cancer cells. Follow these instructions at home: Take jizq-lkl-gayukbb and prescription medicines only as told by your health care provider. Maintain a healthy diet. Some of your treatments might affect your appetite. Consider joining a support group. This may help you learn to cope with the stress of having bladder cancer. Tell your cancer care team if you develop side effects. They may be able to recommend ways to relieve them. Keep all follow-up visits as told by your health care provider. This is important. Where to find more information [employer]: www.cancer.org National Cancer [place] (NCI): www.cancer.gov Contact a health care provider if: You have symptoms of a urinary tract infection. These include: ?Fever. ?Chills. ?Weakness. ?Muscle aches. ?Abdominal pain. ?Frequent and intense urge to urinate. ?Burning feeling in the bladder or urethra during urination. Get help right away if: There is blood in your urine. You cannot urinate. You have severe pain or other symptoms that do not go away. Summary Bladder cancer is an abnormal growth of tissue in the bladder. This condition is diagnosed based on your medical history, a physical exam, urine tests, lab tests, imaging tests, and your symptoms. Based on the stage of cancer, surgery, chemotherapy, or a combination of treatments may be recommended. Consider joining a support group. This may help you learn to cope with the stress of having bladder cancer. This information is not intended to replace advice given to you by your health care provider. Make sure you discuss any questions you have with your health care provider. Document Released: 10/18/2004 Document Revised: 09/28/2018 Document Reviewed: 09/19/2017 [employer] Patient Education 2020 [employer]. Follow Up Care 01/02/2023 12:19:37 With:Reza JAMES, ISAIAH Mckeon, URO Address: When: Unknown [facility] 10-19-2022 Hospital Discharge instructions Patient Education 10/19/2022 07:55:05 Bladder Cancer Bladder Cancer Bladder cancer is an abnormal growth of tissue in the bladder. The bladder is the balloon-like sac in the pelvis. It collects and stores urine that comes from the kidneys through the ureters. The bladder wall is made of layers. If cancer spreads into these layers and through the wall of the bladder, it becomes more difficult to treat. What are the causes? The cause of this condition is not known. What increases the risk? The following factors may make you more likely to develop this condition: Smoking. Workplace risks (occupational exposures), such as rubber, leather, textile, dyes, chemicals, and paint. Being white. Your age. Most people with bladder cancer are over the age of 55. Being male. Having chronic bladder inflammation. Having a personal history of bladder cancer. Having a family history of bladder cancer (heredity). Having had chemotherapy or radiation therapy to the pelvis. Having been exposed to arsenic. What are the signs or symptoms? Initial symptoms of this condition include: Blood in the urine. Painful urination. Frequent bladder or urine infections. Increase in urgency and frequency of urination. Advanced symptoms of this condition include: Not being able to urinate. Low back pain on one side. Loss of appetite. Weight loss. Fatigue. Swelling in the feet. Bone pain. How is this diagnosed? This condition is diagnosed based on your medical history, a physical exam, urine tests, lab tests, imaging tests, and your symptoms. You may also have other tests or procedures done, such as: A narrow tube being inserted into your bladder through your urethra (cystoscopy) in order to view the lining of your bladder for tumors. A biopsy to sample the tumor to see if cancer is present. If cancer is present, it will then be staged to determine its severity and extent. Staging is an assessment of: The size of the tumor. Whether the cancer has spread. Where the cancer has spread. It is important to know how deeply into the bladder wall cancer has grown and whether cancer has spread to any other parts of your body. Staging may require blood tests or imaging tests, such as a CT scan, MRI, bone scan, or chest X-ray. How is this treated? Based on the stage of cancer, one treatment or a combination of treatments may be recommended. The most common forms of treatment are: Surgery to remove the cancer. Procedures that may be done include transurethral resection and cystectomy. Radiation therapy. This is high-energy X-rays or other particles. This is often used in combination with chemotherapy. Chemotherapy. During this treatment, medicines are used to kill cancer cells. Immunotherapy. This uses medicines to help your own immune system destroy cancer cells. Follow these instructions at home: Take jvrq-nts-cudkmcv and prescription medicines only as told by your health care provider. Maintain a healthy diet. Some of your treatments might affect your appetite. Consider joining a support group. This may help you learn to cope with the stress of having bladder cancer. Tell your cancer care team if you develop side effects. They may be able to recommend ways to relieve them. Keep all follow-up visits as told by your health care provider. This is important. Where to find more information [employer]: www.cancer.org National Cancer [place] (NCI): www.cancer.gov Contact a health care provider if: You have symptoms of a urinary tract infection. These include: ?Fever. ?Chills. ?Weakness. ?Muscle aches. ?Abdominal pain. ?Frequent and intense urge to urinate. ?Burning feeling in the bladder or urethra during urination. Get help right away if: There is blood in your urine. You cannot urinate. You have severe pain or other symptoms that do not go away. Summary Bladder cancer is an abnormal growth of tissue in the bladder. This condition is diagnosed based on your medical history, a physical exam, urine tests, lab tests, imaging tests, and your symptoms. Based on the stage of cancer, surgery, chemotherapy, or a combination of treatments may be recommended. Consider joining a support group. This may help you learn to cope with the stress of having bladder cancer. This information is not intended to replace advice given to you by your health care provider. Make sure you discuss any questions you have with your health care provider. Document Released: 10/18/2004 Document Revised: 09/28/2018 Document Reviewed: 09/19/2017 [employer] Patient Education 2020 [employer]. [facility] Hospital Discharge instructions Patient Education 10/12/2022 08:44:01 Bladder Cancer Bladder Cancer Bladder cancer is an abnormal growth of tissue in the bladder. The bladder is the balloon-like sac in the pelvis. It collects and stores urine that comes from the kidneys through the ureters. The bladder wall is made of layers. If cancer spreads into these layers and through the wall of the bladder, it becomes more difficult to treat. What are the causes? The cause of this condition is not known. What increases the risk? The following factors may make you more likely to develop this condition: Smoking. Workplace risks (occupational exposures), such as rubber, leather, textile, dyes, chemicals, and paint. Being white. Your age. Most people with bladder cancer are over the age of 55. Being male. Having chronic bladder inflammation. Having a personal history of bladder cancer. Having a family history of bladder cancer (heredity). Having had chemotherapy or radiation therapy to the pelvis. Having been exposed to arsenic. What are the signs or symptoms? Initial symptoms of this condition include: Blood in the urine. Painful urination. Frequent bladder or urine infections. Increase in urgency and frequency of urination. Advanced symptoms of this condition include: Not being able to urinate. Low back pain on one side. Loss of appetite. Weight loss. Fatigue. Swelling in the feet. Bone pain. How is this diagnosed? This condition is diagnosed based on your medical history, a physical exam, urine tests, lab tests, imaging tests, and your symptoms. You may also have other tests or procedures done, such as: A narrow tube being inserted into your bladder through your urethra (cystoscopy) in order to view the lining of your bladder for tumors. A biopsy to sample the tumor to see if cancer is present. If cancer is present, it will then be staged to determine its severity and extent. Staging is an assessment of: The size of the tumor. Whether the cancer has spread. Where the cancer has spread. It is important to know how deeply into the bladder wall cancer has grown and whether cancer has spread to any other parts of your body. Staging may require blood tests or imaging tests, such as a CT scan, MRI, bone scan, or chest X-ray. How is this treated? Based on the stage of cancer, one treatment or a combination of treatments may be recommended. The most common forms of treatment are: Surgery to remove the cancer. Procedures that may be done include transurethral resection and cystectomy. Radiation therapy. This is high-energy X-rays or other particles. This is often used in combination with chemotherapy. Chemotherapy. During this treatment, medicines are used to kill cancer cells. Immunotherapy. This uses medicines to help your own immune system destroy cancer cells. Follow these instructions at home: Take jxhx-fio-jmfxioo and prescription medicines only as told by your health care provider. Maintain a healthy diet. Some of your treatments might affect your appetite. Consider joining a support group. This may help you learn to cope with the stress of having bladder cancer. Tell your cancer care team if you develop side effects. They may be able to recommend ways to relieve them. Keep all follow-up visits as told by your health care provider. This is important. Where to find more information [employer]: www.cancer.org National Cancer [place] (NCI): www.cancer.gov Contact a health care provider if: You have symptoms of a urinary tract infection. These include: ?Fever. ?Chills. ?Weakness. ?Muscle aches. ?Abdominal pain. ?Frequent and intense urge to urinate. ?Burning feeling in the bladder or urethra during urination. Get help right away if: There is blood in your urine. You cannot urinate. You have severe pain or other symptoms that do not go away. Summary Bladder cancer is an abnormal growth of tissue in the bladder. This condition is diagnosed based on your medical history, a physical exam, urine tests, lab tests, imaging tests, and your symptoms. Based on the stage of cancer, surgery, chemotherapy, or a combination of treatments may be recommended. Consider joining a support group. This may help you learn to cope with the stress of having bladder cancer. This information is not intended to replace advice given to you by your health care provider. Make sure you discuss any questions you have with your health care provider. Document Released: 10/18/2004 Document Revised: 09/28/2018 Document Reviewed: 09/19/2017 [employer] Patient Education 2020 [employer]. Follow Up Care 08/22/2022 12:52:59 With:Reza JAMES, ISAIAH Mckeon, URO Address: When:1 week Comments:BCG #2 of #3 [facility] 10-05-2022 Hospital Discharge instructions Follow Up Care 10/05/2022 15:19:40 With:AI MITCHELL PA-C, URL Address: [address] [place] [address]. [place] [address] When: Unknown [facility] 07-06-2022 Hospital Discharge instructions Patient Education 07/06/2022 10:25:53 Bladder Cancer Bladder Cancer Bladder cancer is an abnormal growth of tissue in the bladder. The bladder is the balloon-like sac in the pelvis. It collects and stores urine that comes from the kidneys through the ureters. The bladder wall is made of layers. If cancer spreads into these layers and through the wall of the bladder, it becomes more difficult to treat. What are the causes? The cause of this condition is not known. What increases the risk? The following factors may make you more likely to develop this condition: Smoking. Workplace risks (occupational exposures), such as rubber, leather, textile, dyes, chemicals, and paint. Being white. Your age. Most people with bladder cancer are over the age of 55. Being male. Having chronic bladder inflammation. Having a personal history of bladder cancer. Having a family history of bladder cancer (heredity). Having had chemotherapy or radiation therapy to the pelvis. Having been exposed to arsenic. What are the signs or symptoms? Initial symptoms of this condition include: Blood in the urine. Painful urination. Frequent bladder or urine infections. Increase in urgency and frequency of urination. Advanced symptoms of this condition include: Not being able to urinate. Low back pain on one side. Loss of appetite. Weight loss. Fatigue. Swelling in the feet. Bone pain. How is this diagnosed? This condition is diagnosed based on your medical history, a physical exam, urine tests, lab tests, imaging tests, and your symptoms. You may also have other tests or procedures done, such as: A narrow tube being inserted into your bladder through your urethra (cystoscopy) in order to view the lining of your bladder for tumors. A biopsy to sample the tumor to see if cancer is present. If cancer is present, it will then be staged to determine its severity and extent. Staging is an assessment of: The size of the tumor. Whether the cancer has spread. Where the cancer has spread. It is important to know how deeply into the bladder wall cancer has grown and whether cancer has spread to any other parts of your body. Staging may require blood tests or imaging tests, such as a CT scan, MRI, bone scan, or chest X-ray. How is this treated? Based on the stage of cancer, one treatment or a combination of treatments may be recommended. The most common forms of treatment are: Surgery to remove the cancer. Procedures that may be done include transurethral resection and cystectomy. Radiation therapy. This is high-energy X-rays or other particles. This is often used in combination with chemotherapy. Chemotherapy. During this treatment, medicines are used to kill cancer cells. Immunotherapy. This uses medicines to help your own immune system destroy cancer cells. Follow these instructions at home: Take fvsa-poh-qemhcnk and prescription medicines only as told by your health care provider. Maintain a healthy diet. Some of your treatments might affect your appetite. Consider joining a support group. This may help you learn to cope with the stress of having bladder cancer. Tell your cancer care team if you develop side effects. They may be able to recommend ways to relieve them. Keep all follow-up visits as told by your health care provider. This is important. Where to find more information [employer]: www.cancer.org National Cancer [place] (NCI): www.cancer.gov Contact a health care provider if: You have symptoms of a urinary tract infection. These include: ?Fever. ?Chills. ?Weakness. ?Muscle aches. ?Abdominal pain. ?Frequent and intense urge to urinate. ?Burning feeling in the bladder or urethra during urination. Get help right away if: There is blood in your urine. You cannot urinate. You have severe pain or other symptoms that do not go away. Summary Bladder cancer is an abnormal growth of tissue in the bladder. This condition is diagnosed based on your medical history, a physical exam, urine tests, lab tests, imaging tests, and your symptoms. Based on the stage of cancer, surgery, chemotherapy, or a combination of treatments may be recommended. Consider joining a support group. This may help you learn to cope with the stress of having bladder cancer. This information is not intended to replace advice given to you by your health care provider. Make sure you discuss any questions you have with your health care provider. Document Released: 10/18/2004 Document Revised: 09/28/2018 Document Reviewed: 09/19/2017 [employer] Patient Education 2020 [employer] Follow Up Care 05/18/2022 11:12:11 With:Reza JAMES, ISAIAH Mckeon, URO Address: When: Unknown [facility] 06-29-2022 Hospital Discharge instructions Patient Education 06/29/2022 08:06:47 Bladder Cancer Bladder Cancer Bladder cancer is an abnormal growth of tissue in the bladder. The bladder is the balloon-like sac in the pelvis. It collects and stores urine that comes from the kidneys through the ureters. The bladder wall is made of layers. If cancer spreads into these layers and through the wall of the bladder, it becomes more difficult to treat. What are the causes? The cause of this condition is not known. What increases the risk? The following factors may make you more likely to develop this condition: Smoking. Workplace risks (occupational exposures), such as rubber, leather, textile, dyes, chemicals, and paint. Being white. Your age. Most people with bladder cancer are over the age of 55. Being male. Having chronic bladder inflammation. Having a personal history of bladder cancer. Having a family history of bladder cancer (heredity). Having had chemotherapy or radiation therapy to the pelvis. Having been exposed to arsenic. What are the signs or symptoms? Initial symptoms of this condition include: Blood in the urine. Painful urination. Frequent bladder or urine infections. Increase in urgency and frequency of urination. Advanced symptoms of this condition include: Not being able to urinate. Low back pain on one side. Loss of appetite. Weight loss. Fatigue. Swelling in the feet. Bone pain. How is this diagnosed? This condition is diagnosed based on your medical history, a physical exam, urine tests, lab tests, imaging tests, and your symptoms. You may also have other tests or procedures done, such as: A narrow tube being inserted into your bladder through your urethra (cystoscopy) in order to view the lining of your bladder for tumors. A biopsy to sample the tumor to see if cancer is present. If cancer is present, it will then be staged to determine its severity and extent. Staging is an assessment of: The size of the tumor. Whether the cancer has spread. Where the cancer has spread. It is important to know how deeply into the bladder wall cancer has grown and whether cancer has spread to any other parts of your body. Staging may require blood tests or imaging tests, such as a CT scan, MRI, bone scan, or chest X-ray. How is this treated? Based on the stage of cancer, one treatment or a combination of treatments may be recommended. The most common forms of treatment are: Surgery to remove the cancer. Procedures that may be done include transurethral resection and cystectomy. Radiation therapy. This is high-energy X-rays or other particles. This is often used in combination with chemotherapy. Chemotherapy. During this treatment, medicines are used to kill cancer cells. Immunotherapy. This uses medicines to help your own immune system destroy cancer cells. Follow these instructions at home: Take yubz-nbx-ggpozik and prescription medicines only as told by your health care provider. Maintain a healthy diet. Some of your treatments might affect your appetite. Consider joining a support group. This may help you learn to cope with the stress of having bladder cancer. Tell your cancer care team if you develop side effects. They may be able to recommend ways to relieve them. Keep all follow-up visits as told by your health care provider. This is important. Where to find more information [employer]: www.cancer.org National Cancer [place] (NCI): www.cancer.gov Contact a health care provider if: You have symptoms of a urinary tract infection. These include: ?Fever. ?Chills. ?Weakness. ?Muscle aches. ?Abdominal pain. ?Frequent and intense urge to urinate. ?Burning feeling in the bladder or urethra during urination. Get help right away if: There is blood in your urine. You cannot urinate. You have severe pain or other symptoms that do not go away. Summary Bladder cancer is an abnormal growth of tissue in the bladder. This condition is diagnosed based on your medical history, a physical exam, urine tests, lab tests, imaging tests, and your symptoms. Based on the stage of cancer, surgery, chemotherapy, or a combination of treatments may be recommended. Consider joining a support group. This may help you learn to cope with the stress of having bladder cancer. This information is not intended to replace advice given to you by your health care provider. Make sure you discuss any questions you have with your health care provider. Document Released: 10/18/2004 Document Revised: 09/28/2018 Document Reviewed: 09/19/2017 [employer] Patient Education 2020 [employer] Follow Up Care 05/18/2022 11:11:14 With:Reza JAMES, ISAIAH Mckeon, URO Address: When:Within 1 Week(s) Comments:BCG #3 [facility] 06-22-2022 Hospital Discharge instructions Patient Education 06/22/2022 09:42:01 Bladder Cancer Bladder Cancer Bladder cancer is an abnormal growth of tissue in the bladder. The bladder is the balloon-like sac in the pelvis. It collects and stores urine that comes from the kidneys through the ureters. The bladder wall is made of layers. If cancer spreads into these layers and through the wall of the bladder, it becomes more difficult to treat. What are the causes? The cause of this condition is not known. What increases the risk? The following factors may make you more likely to develop this condition: Smoking. Workplace risks (occupational exposures), such as rubber, leather, textile, dyes, chemicals, and paint. Being white. Your age. Most people with bladder cancer are over the age of 55. Being male. Having chronic bladder inflammation. Having a personal history of bladder cancer. Having a family history of bladder cancer (heredity). Having had chemotherapy or radiation therapy to the pelvis. Having been exposed to arsenic. What are the signs or symptoms? Initial symptoms of this condition include: Blood in the urine. Painful urination. Frequent bladder or urine infections. Increase in urgency and frequency of urination. Advanced symptoms of this condition include: Not being able to urinate. Low back pain on one side. Loss of appetite. Weight loss. Fatigue. Swelling in the feet. Bone pain. How is this diagnosed? This condition is diagnosed based on your medical history, a physical exam, urine tests, lab tests, imaging tests, and your symptoms. You may also have other tests or procedures done, such as: A narrow tube being inserted into your bladder through your urethra (cystoscopy) in order to view the lining of your bladder for tumors. A biopsy to sample the tumor to see if cancer is present. If cancer is present, it will then be staged to determine its severity and extent. Staging is an assessment of: The size of the tumor. Whether the cancer has spread. Where the cancer has spread. It is important to know how deeply into the bladder wall cancer has grown and whether cancer has spread to any other parts of your body. Staging may require blood tests or imaging tests, such as a CT scan, MRI, bone scan, or chest X-ray. How is this treated? Based on the stage of cancer, one treatment or a combination of treatments may be recommended. The most common forms of treatment are: Surgery to remove the cancer. Procedures that may be done include transurethral resection and cystectomy. Radiation therapy. This is high-energy X-rays or other particles. This is often used in combination with chemotherapy. Chemotherapy. During this treatment, medicines are used to kill cancer cells. Immunotherapy. This uses medicines to help your own immune system destroy cancer cells. Follow these instructions at home: Take ihtn-iub-pczjkfe and prescription medicines only as told by your health care provider. Maintain a healthy diet. Some of your treatments might affect your appetite. Consider joining a support group. This may help you learn to cope with the stress of having bladder cancer. Tell your cancer care team if you develop side effects. They may be able to recommend ways to relieve them. Keep all follow-up visits as told by your health care provider. This is important. Where to find more information [employer]: www.cancer.org National Cancer [place] (NCI): www.cancer.gov Contact a health care provider if: You have symptoms of a urinary tract infection. These include: ?Fever. ?Chills. ?Weakness. ?Muscle aches. ?Abdominal pain. ?Frequent and intense urge to urinate. ?Burning feeling in the bladder or urethra during urination. Get help right away if: There is blood in your urine. You cannot urinate. You have severe pain or other symptoms that do not go away. Summary Bladder cancer is an abnormal growth of tissue in the bladder. This condition is diagnosed based on your medical history, a physical exam, urine tests, lab tests, imaging tests, and your symptoms. Based on the stage of cancer, surgery, chemotherapy, or a combination of treatments may be recommended. Consider joining a support group. This may help you learn to cope with the stress of having bladder cancer. This information is not intended to replace advice given to you by your health care provider. Make sure you discuss any questions you have with your health care provider. Document Released: 10/18/2004 Document Revised: 09/28/2018 Document Reviewed: 09/19/2017 [employer] Patient Education 2020 [employer] Follow Up Care 05/18/2022 11:09:55 With:Reza JAMES, ISAIAH Mckeon, URO Address: When:1 week Comments:bcg #2 [facility] 05-18-2022 Hospital Discharge instructions Patient Education 05/18/2022 11:13:27 Bladder Cancer Bladder Cancer Bladder cancer is an abnormal growth of tissue in the bladder. The bladder is the balloon-like sac in the pelvis. It collects and stores urine that comes from the kidneys through the ureters. The bladder wall is made of layers. If cancer spreads into these layers and through the wall of the bladder, it becomes more difficult to treat. What are the causes? The cause of this condition is not known. What increases the risk? The following factors may make you more likely to develop this condition: Smoking. Workplace risks (occupational exposures), such as rubber, leather, textile, dyes, chemicals, and paint. Being white. Your age. Most people with bladder cancer are over the age of 55. Being male. Having chronic bladder inflammation. Having a personal history of bladder cancer. Having a family history of bladder cancer (heredity). Having had chemotherapy or radiation therapy to the pelvis. Having been exposed to arsenic. What are the signs or symptoms? Initial symptoms of this condition include: Blood in the urine. Painful urination. Frequent bladder or urine infections. Increase in urgency and frequency of urination. Advanced symptoms of this condition include: Not being able to urinate. Low back pain on one side. Loss of appetite. Weight loss. Fatigue. Swelling in the feet. Bone pain. How is this diagnosed? This condition is diagnosed based on your medical history, a physical exam, urine tests, lab tests, imaging tests, and your symptoms. You may also have other tests or procedures done, such as: A narrow tube being inserted into your bladder through your urethra (cystoscopy) in order to view the lining of your bladder for tumors. A biopsy to sample the tumor to see if cancer is present. If cancer is present, it will then be staged to determine its severity and extent. Staging is an assessment of: The size of the tumor. Whether the cancer has spread. Where the cancer has spread. It is important to know how deeply into the bladder wall cancer has grown and whether cancer has spread to any other parts of your body. Staging may require blood tests or imaging tests, such as a CT scan, MRI, bone scan, or chest X-ray. How is this treated? Based on the stage of cancer, one treatment or a combination of treatments may be recommended. The most common forms of treatment are: Surgery to remove the cancer. Procedures that may be done include transurethral resection and cystectomy. Radiation therapy. This is high-energy X-rays or other particles. This is often used in combination with chemotherapy. Chemotherapy. During this treatment, medicines are used to kill cancer cells. Immunotherapy. This uses medicines to help your own immune system destroy cancer cells. Follow these instructions at home: Take fjrp-cvr-pyfglmi and prescription medicines only as told by your health care provider. Maintain a healthy diet. Some of your treatments might affect your appetite. Consider joining a support group. This may help you learn to cope with the stress of having bladder cancer. Tell your cancer care team if you develop side effects. They may be able to recommend ways to relieve them. Keep all follow-up visits as told by your health care provider. This is important. Where to find more information [employer]: www.cancer.org National Cancer [place] (NCI): www.cancer.gov Contact a health care provider if: You have symptoms of a urinary tract infection. These include: ?Fever. ?Chills. ?Weakness. ?Muscle aches. ?Abdominal pain. ?Frequent and intense urge to urinate. ?Burning feeling in the bladder or urethra during urination. Get help right away if: There is blood in your urine. You cannot urinate. You have severe pain or other symptoms that do not go away. Summary Bladder cancer is an abnormal growth of tissue in the bladder. This condition is diagnosed based on your medical history, a physical exam, urine tests, lab tests, imaging tests, and your symptoms. Based on the stage of cancer, surgery, chemotherapy, or a combination of treatments may be recommended. Consider joining a support group. This may help you learn to cope with the stress of having bladder cancer. This information is not intended to replace advice given to you by your health care provider. Make sure you discuss any questions you have with your health care provider. Document Released: 10/18/2004 Document Revised: 09/28/2018 Document Reviewed: 09/19/2017 [employer] Patient Education [employer] Follow Up Care 05/12/2022 12:08:46 With:Reza JAMES, ISAIAH Mckeon, URO Address: When:1 month [facility] 03-17-2022 Hospital Discharge instructions Follow Up Care 03/17/2022 16:12:48 With:Jeff Booth Address: [facility] [address] [place] [phone] Fax Business (1) When: Unknown Comments:f/u 1 year. no labs. [facility] 03-02-2022 Hospital Discharge instructions Patient Education 03/02/2022 09:44:08 Bladder Cancer Bladder Cancer Bladder cancer is an abnormal growth of tissue in the bladder. The bladder is the balloon-like sac in the pelvis. It collects and stores urine that comes from the kidneys through the ureters. The bladder wall is made of layers. If cancer spreads into these layers and through the wall of the bladder, it becomes more difficult to treat. What are the causes? The cause of this condition is not known. What increases the risk? The following factors may make you more likely to develop this condition: Smoking. Workplace risks (occupational exposures), such as rubber, leather, textile, dyes, chemicals, and paint. Being white. Your age. Most people with bladder cancer are over the age of 55. Being male. Having chronic bladder inflammation. Having a personal history of bladder cancer. Having a family history of bladder cancer (heredity). Having had chemotherapy or radiation therapy to the pelvis. Having been exposed to arsenic. What are the signs or symptoms? Initial symptoms of this condition include: Blood in the urine. Painful urination. Frequent bladder or urine infections. Increase in urgency and frequency of urination. Advanced symptoms of this condition include: Not being able to urinate. Low back pain on one side. Loss of appetite. Weight loss. Fatigue. Swelling in the feet. Bone pain. How is this diagnosed? This condition is diagnosed based on your medical history, a physical exam, urine tests, lab tests, imaging tests, and your symptoms. You may also have other tests or procedures done, such as: A narrow tube being inserted into your bladder through your urethra (cystoscopy) in order to view the lining of your bladder for tumors. A biopsy to sample the tumor to see if cancer is present. If cancer is present, it will then be staged to determine its severity and extent. Staging is an assessment of: The size of the tumor. Whether the cancer has spread. Where the cancer has spread. It is important to know how deeply into the bladder wall cancer has grown and whether cancer has spread to any other parts of your body. Staging may require blood tests or imaging tests, such as a CT scan, MRI, bone scan, or chest X-ray. How is this treated? Based on the stage of cancer, one treatment or a combination of treatments may be recommended. The most common forms of treatment are: Surgery to remove the cancer. Procedures that may be done include transurethral resection and cystectomy. Radiation therapy. This is high-energy X-rays or other particles. This is often used in combination with chemotherapy. Chemotherapy. During this treatment, medicines are used to kill cancer cells. Immunotherapy. This uses medicines to help your own immune system destroy cancer cells. Follow these instructions at home: Take epkn-tqm-omgpuee and prescription medicines only as told by your health care provider. Maintain a healthy diet. Some of your treatments might affect your appetite. Consider joining a support group. This may help you learn to cope with the stress of having bladder cancer. Tell your cancer care team if you develop side effects. They may be able to recommend ways to relieve them. Keep all follow-up visits as told by your health care provider. This is important. Where to find more information [employer]: www.cancer.org National Cancer [place] (NCI): www.cancer.gov Contact a health care provider if: You have symptoms of a urinary tract infection. These include: ?Fever. ?Chills. ?Weakness. ?Muscle aches. ?Abdominal pain. ?Frequent and intense urge to urinate. ?Burning feeling in the bladder or urethra during urination. Get help right away if: There is blood in your urine. You cannot urinate. You have severe pain or other symptoms that do not go away. Summary Bladder cancer is an abnormal growth of tissue in the bladder. This condition is diagnosed based on your medical history, a physical exam, urine tests, lab tests, imaging tests, and your symptoms. Based on the stage of cancer, surgery, chemotherapy, or a combination of treatments may be recommended. Consider joining a support group. This may help you learn to cope with the stress of having bladder cancer. This information is not intended to replace advice given to you by your health care provider. Make sure you discuss any questions you have with your health care provider. Document Released: 10/18/2004 Document Revised: 09/28/2018 Document Reviewed: 09/19/2017 [employer] Patient Education 2020 [employer] Follow Up Care 12/29/2021 09:06:11 With:RUY VALLE, AI Alejandro, URL Address: [address] [place] [address] When: Unknown Comments:follow up after cysto with [facility] 02-09-2022 Hospital Discharge instructions Patient Education 02/09/2022 08:41:39 Bladder Cancer Bladder Cancer Bladder cancer is an abnormal growth of tissue in the bladder. The bladder is the balloon-like sac in the pelvis. It collects and stores urine that comes from the kidneys through the ureters. The bladder wall is made of layers. If cancer spreads into these layers and through the wall of the bladder, it becomes more difficult to treat. What are the causes? The cause of this condition is not known. What increases the risk? The following factors may make you more likely to develop this condition: Smoking. Workplace risks (occupational exposures), such as rubber, leather, textile, dyes, chemicals, and paint. Being white. Your age. Most people with bladder cancer are over the age of 55. Being male. Having chronic bladder inflammation. Having a personal history of bladder cancer. Having a family history of bladder cancer (heredity). Having had chemotherapy or radiation therapy to the pelvis. Having been exposed to arsenic. What are the signs or symptoms? Initial symptoms of this condition include: Blood in the urine. Painful urination. Frequent bladder or urine infections. Increase in urgency and frequency of urination. Advanced symptoms of this condition include: Not being able to urinate. Low back pain on one side. Loss of appetite. Weight loss. Fatigue. Swelling in the feet. Bone pain. How is this diagnosed? This condition is diagnosed based on your medical history, a physical exam, urine tests, lab tests, imaging tests, and your symptoms. You may also have other tests or procedures done, such as: A narrow tube being inserted into your bladder through your urethra (cystoscopy) in order to view the lining of your bladder for tumors. A biopsy to sample the tumor to see if cancer is present. If cancer is present, it will then be staged to determine its severity and extent. Staging is an assessment of: The size of the tumor. Whether the cancer has spread. Where the cancer has spread. It is important to know how deeply into the bladder wall cancer has grown and whether cancer has spread to any other parts of your body. Staging may require blood tests or imaging tests, such as a CT scan, MRI, bone scan, or chest X-ray. How is this treated? Based on the stage of cancer, one treatment or a combination of treatments may be recommended. The most common forms of treatment are: Surgery to remove the cancer. Procedures that may be done include transurethral resection and cystectomy. Radiation therapy. This is high-energy X-rays or other particles. This is often used in combination with chemotherapy. Chemotherapy. During this treatment, medicines are used to kill cancer cells. Immunotherapy. This uses medicines to help your own immune system destroy cancer cells. Follow these instructions at home: Take tqwx-lic-gutbdih and prescription medicines only as told by your health care provider. Maintain a healthy diet. Some of your treatments might affect your appetite. Consider joining a support group. This may help you learn to cope with the stress of having bladder cancer. Tell your cancer care team if you develop side effects. They may be able to recommend ways to relieve them. Keep all follow-up visits as told by your health care provider. This is important. Where to find more information [employer]: www.cancer.org National Cancer [place] (NCI): www.cancer.gov Contact a health care provider if: You have symptoms of a urinary tract infection. These include: ?Fever. ?Chills. ?Weakness. ?Muscle aches. ?Abdominal pain. ?Frequent and intense urge to urinate. ?Burning feeling in the bladder or urethra during urination. Get help right away if: There is blood in your urine. You cannot urinate. You have severe pain or other symptoms that do not go away. Summary Bladder cancer is an abnormal growth of tissue in the bladder. This condition is diagnosed based on your medical history, a physical exam, urine tests, lab tests, imaging tests, and your symptoms. Based on the stage of cancer, surgery, chemotherapy, or a combination of treatments may be recommended. Consider joining a support group. This may help you learn to cope with the stress of having bladder cancer. This information is not intended to replace advice given to you by your health care provider. Make sure you discuss any questions you have with your health care provider. Document Released: 10/18/2004 Document Revised: 09/28/2018 Document Reviewed: 09/19/2017 [employer] Patient Education 2020 [employer] Follow Up Care 12/29/2021 09:03:01 With:Reza JAMES, ISAIAH Mckeon, URO Address: When: Unknown [facility] 02-02-2022 Hospital Discharge instructions Patient Education 02/02/2022 08:11:12 Bladder Cancer Bladder Cancer Bladder cancer is an abnormal growth of tissue in the bladder. The bladder is the balloon-like sac in the pelvis. It collects and stores urine that comes from the kidneys through the ureters. The bladder wall is made of layers. If cancer spreads into these layers and through the wall of the bladder, it becomes more difficult to treat. What are the causes? The cause of this condition is not known. What increases the risk? The following factors may make you more likely to develop this condition: Smoking. Workplace risks (occupational exposures), such as rubber, leather, textile, dyes, chemicals, and paint. Being white. Your age. Most people with bladder cancer are over the age of 55. Being male. Having chronic bladder inflammation. Having a personal history of bladder cancer. Having a family history of bladder cancer (heredity). Having had chemotherapy or radiation therapy to the pelvis. Having been exposed to arsenic. What are the signs or symptoms? Initial symptoms of this condition include: Blood in the urine. Painful urination. Frequent bladder or urine infections. Increase in urgency and frequency of urination. Advanced symptoms of this condition include: Not being able to urinate. Low back pain on one side. Loss of appetite. Weight loss. Fatigue. Swelling in the feet. Bone pain. How is this diagnosed? This condition is diagnosed based on your medical history, a physical exam, urine tests, lab tests, imaging tests, and your symptoms. You may also have other tests or procedures done, such as: A narrow tube being inserted into your bladder through your urethra (cystoscopy) in order to view the lining of your bladder for tumors. A biopsy to sample the tumor to see if cancer is present. If cancer is present, it will then be staged to determine its severity and extent. Staging is an assessment of: The size of the tumor. Whether the cancer has spread. Where the cancer has spread. It is important to know how deeply into the bladder wall cancer has grown and whether cancer has spread to any other parts of your body. Staging may require blood tests or imaging tests, such as a CT scan, MRI, bone scan, or chest X-ray. How is this treated? Based on the stage of cancer, one treatment or a combination of treatments may be recommended. The most common forms of treatment are: Surgery to remove the cancer. Procedures that may be done include transurethral resection and cystectomy. Radiation therapy. This is high-energy X-rays or other particles. This is often used in combination with chemotherapy. Chemotherapy. During this treatment, medicines are used to kill cancer cells. Immunotherapy. This uses medicines to help your own immune system destroy cancer cells. Follow these instructions at home: Take qvow-hgn-niewpig and prescription medicines only as told by your health care provider. Maintain a healthy diet. Some of your treatments might affect your appetite. Consider joining a support group. This may help you learn to cope with the stress of having bladder cancer. Tell your cancer care team if you develop side effects. They may be able to recommend ways to relieve them. Keep all follow-up visits as told by your health care provider. This is important. Where to find more information [employer]: www.cancer.org National Cancer [place] (NCI): www.cancer.gov Contact a health care provider if: You have symptoms of a urinary tract infection. These include: ?Fever. ?Chills. ?Weakness. ?Muscle aches. ?Abdominal pain. ?Frequent and intense urge to urinate. ?Burning feeling in the bladder or urethra during urination. Get help right away if: There is blood in your urine. You cannot urinate. You have severe pain or other symptoms that do not go away. Summary Bladder cancer is an abnormal growth of tissue in the bladder. This condition is diagnosed based on your medical history, a physical exam, urine tests, lab tests, imaging tests, and your symptoms. Based on the stage of cancer, surgery, chemotherapy, or a combination of treatments may be recommended. Consider joining a support group. This may help you learn to cope with the stress of having bladder cancer. This information is not intended to replace advice given to you by your health care provider. Make sure you discuss any questions you have with your health care provider. Document Released: 10/18/2004 Document Revised: 09/28/2018 Document Reviewed: 09/19/2017 [employer] Patient Education 2020 [employer] Follow Up Care 12/29/2021 09:02:14 With:Reza JAMES, ISAIAH Mckeon, URO Address: When: Unknown [facility] 01-26-2022 Hospital Discharge instructions Patient Education 01/26/2022 08:03:49 Bladder Cancer Bladder Cancer Bladder cancer is an abnormal growth of tissue in the bladder. The bladder is the balloon-like sac in the pelvis. It collects and stores urine that comes from the kidneys through the ureters. The bladder wall is made of layers. If cancer spreads into these layers and through the wall of the bladder, it becomes more difficult to treat. What are the causes? The cause of this condition is not known. What increases the risk? The following factors may make you more likely to develop this condition: Smoking. Workplace risks (occupational exposures), such as rubber, leather, textile, dyes, chemicals, and paint. Being white. Your age. Most people with bladder cancer are over the age of 55. Being male. Having chronic bladder inflammation. Having a personal history of bladder cancer. Having a family history of bladder cancer (heredity). Having had chemotherapy or radiation therapy to the pelvis. Having been exposed to arsenic. What are the signs or symptoms? Initial symptoms of this condition include: Blood in the urine. Painful urination. Frequent bladder or urine infections. Increase in urgency and frequency of urination. Advanced symptoms of this condition include: Not being able to urinate. Low back pain on one side. Loss of appetite. Weight loss. Fatigue. Swelling in the feet. Bone pain. How is this diagnosed? This condition is diagnosed based on your medical history, a physical exam, urine tests, lab tests, imaging tests, and your symptoms. You may also have other tests or procedures done, such as: A narrow tube being inserted into your bladder through your urethra (cystoscopy) in order to view the lining of your bladder for tumors. A biopsy to sample the tumor to see if cancer is present. If cancer is present, it will then be staged to determine its severity and extent. Staging is an assessment of: The size of the tumor. Whether the cancer has spread. Where the cancer has spread. It is important to know how deeply into the bladder wall cancer has grown and whether cancer has spread to any other parts of your body. Staging may require blood tests or imaging tests, such as a CT scan, MRI, bone scan, or chest X-ray. How is this treated? Based on the stage of cancer, one treatment or a combination of treatments may be recommended. The most common forms of treatment are: Surgery to remove the cancer. Procedures that may be done include transurethral resection and cystectomy. Radiation therapy. This is high-energy X-rays or other particles. This is often used in combination with chemotherapy. Chemotherapy. During this treatment, medicines are used to kill cancer cells. Immunotherapy. This uses medicines to help your own immune system destroy cancer cells. Follow these instructions at home: Take [id number]-mme-[id number] and prescription medicines only as told by your health care provider. Maintain a healthy diet. Some of your treatments might affect your appetite. Consider joining a support group. This may help you learn to cope with the stress of having bladder cancer. Tell your cancer care team if you develop side effects. They may be able to recommend ways to relieve them. Keep all follow-up visits as told by your health care provider. This is important. Where to find more information [employer]: www.cancer.org National Cancer [place] (NCI): www.cancer.gov Contact a health care provider if: You have symptoms of a urinary tract infection. These include: ?Fever. ?Chills. ?Weakness. ?Muscle aches. ?Abdominal pain. ?Frequent and intense urge to urinate. ?Burning feeling in the bladder or urethra during urination. Get help right away if: There is blood in your urine. You cannot urinate. You have severe pain or other symptoms that do not go away. Summary Bladder cancer is an abnormal growth of tissue in the bladder. This condition is diagnosed based on your medical history, a physical exam, urine tests, lab tests, imaging tests, and your symptoms. Based on the stage of cancer, surgery, chemotherapy, or a combination of treatments may be recommended. Consider joining a support group. This may help you learn to cope with the stress of having bladder cancer. This information is not intended to replace advice given to you by your health care provider. Make sure you discuss any questions you have with your health care provider. Document Released: 10/18/2004 Document Revised: 09/28/2018 Document Reviewed: 09/19/2017 [employer] Patient Education 2020 [employer]. Follow Up Care 12/29/2021 08:59:52 With:Dina Cobb MD, URL, URO Address: [address] [place] [address]- [phone] Business (1) When: Unknown [facility] Evaluation + Plan note Future Appointments Appointment Date:02/02/2022 08:00:00 AM Scheduled Provider:Dina Cobb MD Location:[facility] Appointment Type:URO Office Visit Appointment Date:02/09/2022 08:00:00 AM Scheduled Provider:Dina Cobb MD Location:[facility] Appointment Type:URO Office Visit Appointment Date:02/16/2022 08:00:00 AM Scheduled Provider:Dina Cobb MD Location:[facility] Appointment Type:URO Office Visit Appointment Date:02/23/2022 08:00:00 AM Scheduled Provider:Dina Cobb MD Location:[facility] Appointment Type:URO Office Visit Appointment Date:03/02/2022 09:30:00 AM Scheduled Provider:Dina Cobb MD Location:[facility] Appointment Type:URO Office Visit Appointment Date:03/17/2022 03:00:00 PM Scheduled Provider:Jeff Booth DO Location:.ONCOLOGY Appointment Type:ONC Office Visit New 30 (FT) [facility] Evaluation + Plan note Future Appointments Appointment Date:02/02/2022 08:00:00 AM Scheduled Provider:Dina Cobb MD Location:[facility] Appointment Type:URO Office Visit Appointment Date:02/09/2022 08:00:00 AM Scheduled Provider:Dina Cobb MD Location:[facility] Appointment Type:URO Office Visit Appointment Date:02/16/2022 08:00:00 AM Scheduled Provider:Dina Cobb MD Location:[facility] Appointment Type:URO Office Visit Appointment Date:02/23/2022 08:00:00 AM Scheduled Provider:Dina Cobb MD Location:[facility] Appointment Type:URO Office Visit Appointment Date:03/02/2022 09:30:00 AM Scheduled Provider:Dina Cobb MD Location:[facility] Appointment Type:URO Office Visit Appointment Date:03/17/2022 03:00:00 PM Scheduled Provider:Jeff Booth DO Location:.ONCOLOGY Appointment Type:ONC Office Visit New 30 (FT) Diagnostic Tests PendingUrine Culture 01/26/22 [facility] Evaluation + Plan note Future Appointments Appointment Date:02/09/2022 08:00:00 AM Scheduled Provider:Dina Cobb MD Location:[facility] Appointment Type:URO Office Visit Appointment Date:02/16/2022 08:00:00 AM Scheduled Provider:Dina Cobb MD Location:[facility] Appointment Type:URO Office Visit Appointment Date:02/23/2022 08:00:00 AM Scheduled Provider:Dina Cobb MD Location:[facility] Appointment Type:URO Office Visit Appointment Date:03/02/2022 09:30:00 AM Scheduled Provider:Dina Cobb MD Location:[facility] Appointment Type:URO Office Visit Appointment Date:03/17/2022 03:00:00 PM Scheduled Provider:Jeff Booth DO Location:[facility]COL[facility] Appointment Type:ONC Office Visit New 30 (FT) [facility] Evaluation + Plan note Future Appointments Appointment Date:02/16/2022 08:00:00 AM Scheduled Provider:Dina Cobb MD Location:[facility] Appointment Type:URO Office Visit Appointment Date:02/23/2022 08:00:00 AM Scheduled Provider:Dina Cobb MD Location:[facility] Appointment Type:URO Office Visit Appointment Date:03/02/2022 09:30:00 AM Scheduled Provider:Dina Cobb MD Location:[facility] Appointment Type:URO Office Visit Appointment Date:03/17/2022 03:00:00 PM Scheduled Provider:Jeff Booth DO Location:FT[facility]COL[facility] Appointment Type:ONC Office Visit New 30 (FT) [facility] Evaluation + Plan note Future Appointments Appointment Date:03/17/2022 03:00:00 PM Scheduled Provider:Jeff Booth DO Location:FT[facility] Appointment Type:ONC Office Visit New 30 (FT) [facility] Evaluation + Plan note Future Appointments Appointment Date:03/15/2023 12:30:00 PM Scheduled Provider:Jeff Booth DO Location:FT[facility]COL[facility] Appointment Type:ONC Office Visit 15 (FT) Diagnostic Tests PendingUrine Culture 03/25/22 [facility] Evaluation + Plan note Future Appointments Appointment Date:03/15/2023 12:30:00 PM Scheduled Provider:Jeff Booth DO Location:FT[facility]ONCOL[facility] Appointment Type:ONC Office Visit 15 (FT) [facility] Evaluation + Plan note Future Appointments Appointment Date:06/22/2022 10:15:00 AM Scheduled Provider:Dina Cobb MD Location:[facility] Appointment Type:URO Office Visit Appointment Date:06/29/2022 10:15:00 AM Scheduled Provider:Dina Cobb MD Location:[facility] Appointment Type:URO Office Visit Appointment Date:07/06/2022 10:15:00 AM Scheduled Provider:Dina Cobb MD Location:[facility] Appointment Type:URO Office Visit Appointment Date:03/15/2023 12:30:00 PM Scheduled Provider:Jeff Booth DO Location:.ONCOLOGY Appointment Type:ONC Office Visit 15 (FT) [facility] Evaluation + Plan note Future Appointments Appointment Date:06/29/2022 07:45:00 AM Scheduled Provider:Dina Cobb MD Location:[facility] Appointment Type:URO Office Visit Appointment Date:07/06/2022 10:15:00 AM Scheduled Provider:Dina Cobb MD Location:[facility] Appointment Type:URO Office Visit Appointment Date:03/15/2023 12:30:00 PM Scheduled Provider:Jeff Booth DO Location:FT.ONCOL[facility] Appointment Type:ONC Office Visit 15 (FT) [facility] Evaluation + Plan note Future Appointments Appointment Date:07/06/2022 10:15:00 AM Scheduled Provider:Dina Cobb MD Location:[facility] Appointment Type:URO Office Visit Appointment Date:03/15/2023 12:30:00 PM Scheduled Provider:Jeff Booth DO Location:FT.ONCOL[facility]Y Appointment Type:ONC Office Visit 15 (FT) Diagnostic Tests PendingBUN 06/29/22Creatinine 06/29/22 [facility] Evaluation + Plan note Future Appointments Appointment Date:10/19/2022 08:00:00 AM Scheduled Provider:Dina Cobb MD Location:[facility] Appointment Type:URO Office Visit Appointment Date:10/26/2022 10:30:00 AM Scheduled Provider:AI MITCHELL PA-C Location:[facility] Appointment Type:URO Office Visit Appointment Date:03/15/2023 12:30:00 PM Scheduled Provider:Jeff Booth DO Location:[facility] Appointment Type:ONC Office Visit 15 (FT) [facility] Evaluation + Plan note Future Appointments Appointment Date:10/26/2022 10:30:00 AM Scheduled Provider:AI MITCHELL PA-C Location:[facility] Appointment Type:URO Office Visit Appointment Date:03/15/2023 12:30:00 PM Scheduled Provider:Jeff Booth DO Location:[facility] Appointment Type:ONC Office Visit 15 (FT) [facility] Evaluation + Plan note Future Appointments Appointment Date:03/15/2023 12:30:00 PM Scheduled Provider:Jeff Booth DO Location:[facility]COL[facility] Appointment Type:ONC Office Visit 15 (FT) Diagnostic Tests PendingUrine Culture 12/14/22 [facility] Evaluation + Plan note Future Appointments Appointment Date:04/24/2024 11:00:00 AM Scheduled Provider:Jeff Booth DO Location:FT.ONCOL[facility] Appointment Type:ONC Office Visit 15 (FT) [facility] Evaluation note No assessment inform ation available [facility] Work Phone: Hospital course Narrative No data available for this section [facility] Hospital Discharge instructions No data available for this section [facility] Progress note No data available for this section [facility] Summary Purpose Family History No Family History Records FoundNo Family History Records FoundNo Family History Records FoundNo Family History Records FoundNo Family History Records FoundNo Family History Records FoundNo Family History Records FoundNo Family History Records Found Advance Directives No Advanced Directives Records FoundNo Advanced Directives Records FoundNo Advanced Directives Records FoundNo Advanced Directives Records FoundNo Advanced Directives Records FoundNo Advanced Directives Records FoundNo Advanced Directives Records FoundNo Advanced Directives Records Found Additional Source Comments INFORMATION SOURCE (unrecogn ized section and content) DATE CREATED AUTHOR 06/24/2020 [facility] DATE CREATED AUTHOR AUTHOR'S ORGANIZ ATION 09/01/2020 [facility] DATE CREATED AUTHOR AUTHOR'S ORGANIZ ATION 11/21/2020 [facility] DATE CREATED AUTHOR AUTHOR'S ORGANIZ ATION 03/09/2023 [facility] DATE CREATED AUTHOR AUTHOR'S ORGANIZ ATION 06/28/2023 [facility] DATE CREATED AUTHOR AUTHOR'S ORGANIZ ATION 08/05/2023 [facility] DATE CREATED AUTHOR AUTHOR'S ORGANIZ ATION 10/30/2023 [facility] DATE CREATED AUTHOR AUTHOR'S ORGANIZ ATION 11/16/2023 [facility] EPIC Care Team (unrecognized sect ion and content) Personnel Name: BAYRON SINGH MD Address: [address] Personnel Name: BAYRON SINGH MD Address: [address] Personnel Name: BAYRON SINGH MD Address: [address] Personnel Name: BAYRON SINGH MD Address: [address] Personnel Name: BAYRON SINGH MD Address: Address: [address] [place] [address] Personnel Name: BAYRON SINGH MD Address: Address: [address] [facility] [address] Personnel Name: BAYRON SINGH MD Address: Address: [address] [place], [place] [address] [address] Personnel Name: BAYRON SINGH MD Address: Address: [address] [place], [place] [address] [address] Personnel Name: BAYRON SINGH MD Address: Address: [address] [place], [place] [address] Personnel Name: BAYRON SINGH MD Address: Address: [address] [place], [place] [address] [address] Personnel Name: BAYRON SINGH MD Address: Address: [address] [place] [address] Goals (unrecognized section and content) Goals may be documented in a n alternate section FOR RECORDS PERTAINING TO PATIENTS WHO ARE OR HAVE BEEN ENROLLED IN A CHEMICAL DEPENDENCY/SUBSTANCEABUSE PROGRAM, SOME INFORMATION MAY BE OMITTED. This clinical summary was aggregated from multiple sources. Caution should be exercised in using it in the provision of clinical care. This summary normalizes information from multiple sources, and as a consequence, information in this document may materially change the coding, format and clinical context of patient data. In addition, data may be omitted in some cases. CLINICAL DECISIONS SHOULD BE BASED ON THE PRIMARY CLINICAL RECORDS. [facility] [employer] [facility]. provides no warranty or guarantee of the accuracy or completeness of information in this document.
[2023-11-22 08:06] LABS: Basophils Absolute Auto 0.1 10^3/uL (0.0-0.1); Basophils Percent Auto 1.2 % (0.2-2.0); Eosinophils Absolute Auto 0.2 10^3/uL (0.0-0.7); Eosinophils Percent Auto 3.3 % (0.9-7.0); Immature Granulocytes Abs Auto 0.06 10^3/uL (0.00-0.03); Lymphocytes Absolute Auto 1.3 10^3/uL (1.2-3.8); Lymphocytes Percent Auto 23.1 % (20.5-60.0); Mean Corpuscular HGB Conc 30.8 g/dL (29.9-35.2); Mean Corpuscular Hemoglobin 27.2 pg (26.7-34.0); Mean Corpuscular Volume 88.4 fL (81.0-99.0); Monocytes Absolute Auto 0.4 10^3/uL (0.3-0.8); Monocytes Percent Auto 7.1 % (1.7-12.0); Neutrophils Absolute Auto 3.7 10^3/uL (1.4-6.5); Neutrophils Percent Auto 64.3 % (43.0-75.0); Platelet Count 176 10^3/uL (150-450); Red Blood Count 4.41 10^6/uL (4.20-5.40); Red Cell Distribution Width 15.4 % (11.0-15.0); White Blood Count 5.8 10^3/uL (4.0-11.0)
[2023-11-22 09:06] LABS: Alanine Aminotransferase 69 U/L (14-59); Albumin Globulin Ratio 0.8; Albumin Level 3.1 g/dL (3.4-5.0); Alkaline Phosphatase 88 U/L (46-116); Anion Gap 15.7; Aspartate Amino Transferase 56 U/L (15-37); BUN Creatinine Ratio 13.1; Bilirubin Total 0.4 mg/dL (0.2-1.0); Calcium 8.9 mg/dL (8.5-10.1); Carbon Dioxide 26.2 mmol/L (21.0-32.0); Chloride 104 mmol/L (98-107); Estimated GFR (African America >60 (>=60); Estimated GFR (Non-African Ame 51 (>=60); Glucose 156 mg/dL (74-106); Potassium 3.9 mmol/L (3.5-5.1); Sodium 142 mmol/L (136-145); Total Protein 7.1 g/dL (6.4-8.2)
== END 2023-11-22 07:28 | disposition home or self-care (01) ==
LOC: LAB 07:29
PROVIDERS: PCP Family Medicine; Visit Provider Internal Medicine Rheumatology
DX: M19.90 Unspecified osteoarthritis, unspecified site (principal); Z79.899 Other long term (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
CPT/HCPCS: 36415; 80053; 85025

== ENCOUNTER 2023-12-04 07:24 | Outpatient (RCR) | payer BC, SELFPAY ==
[2023-12-04 10:22] VITALS: BP 130/70; PULSE 66; RESP 18; TEMP 36.6; O2SAT 98
--- NOTE | 2023-12-04 10:23 | PC.NURSE ---
1000: Pt. to [facility] amb. for monthly intravesicular treatment. Seated at side of bed. VSS. Denies c/o pain, n/v or dyspnea. Denies c/o burning with urination or irritation in perineal area. Pt. to supine position. Using sterile technique, #16 Fr. christian cath inserted into bladder easily with immediate return of clear, yellow urine. Pt. tolerated with minimal c/o discomfort. Positioned for comfort in bed. Denies needs or c/o.
[2023-12-04] MEDS: WATER FOR INJECTION STERILE INTRAVESIC (10:44)
[2023-12-04] MEDS: GEMCITABINE HCL INTRAVESIC (10:44)
[2023-12-04] MEDS: SODIUM CHLORIDE 0.9% INTRAVESIC (12:04)
[2023-12-04] MEDS: DOCETAXEL INTRAVESIC (12:04)
--- NOTE | 2023-12-04 12:25 | PC.NURSE ---
1044: 150 ML clear yellow urine emptied from bladder. Gutierrez bag removed, chemo connector applied. Bladder instilled with Gemcitabine as ordered, see MAR. Pt. instructed to turn side to side and front to back every 15min x's 1 hour. Pt. relays understanding. 1100: Pt. tolerating treatment without c/o. Denies needs. Warm blankets provided. 1144: Gemcitabine treatment completed. Bladder emptied for 300cc clear yellow urine. Pt. requests a break before next medication instilled into bladder. 1204: Docetaxel instilled into bladder at this time as ordered. See MAR. Pt. denies c/o burning or irritation in perineum. 1232: Pt. denies c/o. Warm blanket provided.
[2023-12-04 13:10] VITALS: BP 120/79; PULSE 59; RESP 16; TEMP 37.1; O2SAT 100
--- NOTE | 2023-12-04 13:17 | PC.NURSE ---
1304: Docetaxel treatment completed at this time. Bladder emptied for 200 ML clear yellow urine. No redness or irritation observed in perineum. Gutierrez catheter removed. Pt. tolerated without c/o. VSS. Kala care per pt. Given privacy to dress. 1310: Pt. d/c'd amb. to home. Reminded of home care precautions with voiding. Pt. relays understanding.
== END 2023-12-04 13:30 | disposition home or self-care (01) ==
LOC: INF 07:24
PROVIDERS: PCP Family Medicine
DX: M79.644 Pain in right finger(s) (principal); C67.4 Malignant neoplasm of posterior wall of bladder
CPT/HCPCS: 51700; 73130; J9171; J9201

== ENCOUNTER 2023-12-04 08:56 | Outpatient (OUT) | payer BC, SELFPAY ==
--- NOTE | 2023-12-04 | XR_ITS ---
The [address] [address] Patient Name: DANIELLA BEJARANO MRN: [id number] date: 1960 Sex: F Assigned Patient Location: [facility] Current Patient Location: [facility] Accession/Order Number: [id number] Exam Date: 12/04/2023 09:52 Report Date: 12/04/2023 15:36 At the request of: LOGN CROCKER Procedure: XR hand RT min 3V EXAM: XR hand RT min 3V HISTORY: RIGHT HAND PAIN COMPARISON: Right hand study dated 11/05/2022 TECHNIQUE: 3 views of the right hand were obtained. FINDINGS: Previously noted fourth metacarpal fracture is no longer identified compatible with interval healing. No definite acute fracture or dislocation. Mild to moderate degenerative changes about the interphalangeal joints. Mild degenerative changes about the metacarpophalangeal joints. Moderate to marked degenerative changes about the first metacarpocarpal joint. Mild degenerative change at the joint space between the navicular and trapezium. Mild generalized soft tissue swelling suggested. XR/XR hand RT min 3V IMPRESSION: Right hand study demonstrates evidence of healed fracture of the fourth metacarpal when compared to the prior exam. Degenerative changes as described, overall slightly progressed compared to the prior exam. Follow-up as needed. Electronically authenticated by: JULIO SOLOMON Date: 12/04/2023 15:36
--- OUTSIDE RECORDS SUMMARY | 2023-12-04 09:00 | XMS_ITS | CCD ---
Author Name Unknown Address [address] [facility] [address] [place] [address] Organization [facility] Care Team Providers Care Looseleaf Binder Coverer Name Role Phone UNKNOWN, PROVIDER Admitting Unavailable UNKNOWN, PROVIDER Attending Unavailable SELF, REFERRED Referring Unavailable BAYRON SINGH Primary Care Unavailable BAYRON SINGH Primary Care Physician LUE ., DINA M Attending Unavailable LUE ., DINA M Admitting Unavailable LUE ., DINA M Consulting Unavailable NADERER, DR BAYRON Perez Primary Care Unavailable LUE ., DINA Sneed Attending Unavailable LUE ., DINA M Admitting Unavailable MELBOURNE, DR SPARKLE Napoles Consulting Unavailable NADERER, DR BAYRON Perez Primary Care Unavailable LUE ., DINA nSeed Consulting Unavailable SHANTAERESolange, DR BAYRON Perez Primary [...] DR BAYRON Perez Primary Care Unavailable Lue, Dian M. Attending Unavailable Lue, Dina M. Attending [...] Admitting Unavailable Amari, Jeannee A Admitting Unavailable NewfoundlandBlanca A Attending Unavailable Lue, Dina Oconnell Attending [...] Drug Allergy Headache (finding) [facility] (1 source) Acetaminophen / oxyCODONE Drug Allergy 9 [facility] Repository (1 source) Acetaminophen / oxyCODONE; 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: [OXYCODONE-ACETAM INOPHEN] Drug Allergy 3 [facility] Repository Medications Current Medications Medication Drug Class(es) [...] 4 wks, then 2x a week afterwards., [facility]/pharmacy #[id number], 163, cm, 06/22/22 8:33:00 EDT, Height/Length Dosing, 115, kg, 06/22/22 8:33:00 EDT, Weigh... Start Date: 06/22/22 Status: Ordered fluconazole 150 mg oral tablet (2 sources) Azole Antifungal Start: 12-14-2022 take 1 tablet by mouth once Diflucan 150 mg Tab 150 mg = 1 tab(s), Oral, Once, # 1 tab(s), Refills(s) 0, Pharmacy: [facility]/pharmacy #[id number], 163, cm, 10/26/22 10:27:00 EST, Height/Length [...] Daily, # 30 tab(s), Refills(s) 11, Pharmacy: [facility]/pharmacy #[id number], 163, cm, 01/04/23 8:04:00 EST, Height/Length Dosing, 115, kg, 01/04/23 8:04:00 EST, Weight Dosing Start Date: 01/04/23 Status: Ordered Start: 10-14-2022 take 1 tablet by justo th once daily Myrbetriq 50 mg oral tablet, extended release 50 mg = 1 tab(s), Oral, Daily, # 30 tab(s), Refills(s) 11, Pharmacy: [facility]/pharmacy #[id number], 163, cm, 10/12/22 8:12:00 EST, Height/Length [...] Daily, # 90 tab(s), Refills(s) 3, Pharmacy: [facility]/pharmacy #[id number], 163, cm, 05/18/22 10:12:00 EDT, Height/Length Dosing, 115, kg, 05/18/22 10:12:00 EDT, Weight Dosing Start Date: 05/18/22 Status: Ordered Start: 10-13-2021 take 1 tablet by justo th once daily Vesicare 10 mg Tab 10 mg = 1 tab(s), Oral, Daily, # 30 tab(s), Refills(s) 5, Pharmacy: [facility]/pharmacy #[id number], 163, cm, 10/13/21 9:52:00 EST, Height/Length [...] 1 tablet day of treatment after treatment, [facility]/pharmacy #[id number], 163, cm, 05/18/22 10:12:00 EDT, Height/Length Dosing, 115, kg, 05/18/22 10:12:00 EDT, Weight Dosing Start Date: 05/18/22 Status: Ordered Start: 02-02-2022 Bactrim DS 800 mg-160 mg Tab 1 tab(s), Oral, Daily, 10 tab(s), Refill(s) 0, Prophylaxis for BCG, take day before and day of, [facility]/pharmacy #[id number], 163, cm, 02/02/22 8:04:00 EDT, Height/Length Dosing, 115, kg, 02/02/22 8:04:00 EDT, Weight Dosing Start Date: 02/02/22 Status: Ordered Start: 01-26-2022 Bactrim DS 800 mg-160 mg Tab 1 tab(s), Oral, q12hr, 2 tab(s), Refill(s) 6, [facility]/pharmacy #[id number], 163, cm, 01/26/22 8:21:00 EDT, Height/Length Dosing, 115, kg, 01/26/22 8:21:00 EDT, Weight Dosing Start Date: 01/26/22 Status: Ordered vibegron 75 MG Oral Tablet [Gemtesa] (1 source) Start: 01-05-2023 take 1 tablet by mouth once daily Gemtesa 75 mg oral tablet 75 mg = 1 tab(s), Oral, Daily, # 30 tab(s), Refills(s) 3, Pharmacy: [facility]/pharmacy #[id number], 163, cm, 01/04/23 8:04:00 EST, Height/Length [...] procedure., # 1 tab(s), Refills(s) 0, Pharmacy: [facility]/pharmacy #[id number], 163, cm, 06/22/22 8:33:00 EDT, Height/Length [...] 11-07-2022 Chronic Other aftercare (1 source) Other termination clerk (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; 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: [OTH FUNERAL DRIVER CURRENT DRUG THERAPY] Onset: 12-25-2022 Episodic Other aftercare (1 source) [facility] (current) use of aspirin; 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: [USP CURRENT USE OF ASPIRIN] Onset: 12-13-2022 Episodic [...] Test Name Value Interpretation Reference Range Facility NON-PLASTICS FABRICATOR OR WELDER CYTOLOGY - CELLULAR EXAMon 10-04-2023 LAB AP CASE REPORT Normal [facility] Comment on above: Order Comment: Via c ysto Result Comment: Non- gynecologic Cytology Case: [id number] Authorizing Provider: Lisa Zelaya MD Collected: 10/04/20231450 Ordering Location: [facility] Received: 10/04/2023 145 Urology Pathologist: Yossi Sterling MD Specimen: Bladder washing Performed By: #### L AB13 ####[facility] ([facility])[address] [place] [address] LAB AP CLINICAL INFORMATION Order Diagnoses [facility] Comment on above: Order Comment: Via c ysto Result Comment: C67. 4 - Malignant neoplasm of posterior wall of urinary bladder (CMS/HCC) [ICD-10-CM] Performed By: #### L AB13 ####[facility] ([facility])[address] [place] [address] LAB AP GROSS DESCRIPTION [facility] Comment on above: Order Comment: Via c ysto Result Comment: 14 m L clear, colorless fluid. Performed By: #### L AB13 ####[facility] ([facility])[address] [place] [address] LAB AP REPORT FINAL DIAGNOSIS NARRATIVE Normal [facility] Comment on above: Order Comment: Via c ysto Result Comment: Blad david washing, cytology: Negative for high-grade urothelial carcinoma. Performed By: #### L AB13 ####[facility] ([place])[address] [place] [address] Procedure Visiton 10-04-2023 Procedure Visit [id number] Wali Bejarano ruby A 1960 [facility]ly [facility] Provider Department Center 10/04/2023 Moe-LISA ZELAYA [facility] Family History Problem Relation Age of Onset Hypertension Mother Family Status - Relation Status Age at Mother Level of Service:73319 MT OFFICE/OUTPATIENT ESTABLISHED LOW MDM 20 MIN Reason for Visit and Comments: Follow-up [190287] [facility] Letter (Out)on 08-15-2023 Letter (Out) [id number] Wali Bejarano ruby A 1960 Formerly [facility] Department [place] 08/15/2023 None-None [facility] AUTH [facility] C Family History Problem Relation Age of Onset Hypertension Mother Family Status - Relation Status Age at Mother Normal [facility] Letter (Out)on 08-11-2023 Letter (Out) [id number] Wali Bejarano ruby A 1960 [facility]ly [facility] Provider Department [place] 08/11/2023 None-None [facility] [place] [facility] Family History Problem Relation Age of Onset Hypertension Mother Family Status - Relation Status Age at Mother [facility] Letter (Out)on 07-07-2023 Letter (Out) [id number] Wali Bejarano ruby A 1960 [facility]ly [facility] Provider Department [place] 07/07/2023 None-None [facility] [place] [facility] Family History Problem Relation Age of Onset Hypertension Mother Family Status - Relation Status Age at Mother Normal [facility] Orders Onlyon 06-29-2023 Orders Only [id number] Wali Bejarano ruby A 1960 [facility]ly [facility] Provider Department [place] 06/29/2023 Sudhakar-IVAN NEAL [facility] Family History Problem Relation Age of Onset Hypertension Mother Family Status - Relation Status Age at Mother Normal [facility] NON-PLASTICS FABRICATOR OR WELDER CYTOLOGY - CELLULAR EXAMon 06-28-2023 LAB AP CASE REPORT Normal [facility] Comment on above: Order Comment: Via c ysto Result Comment: Non- gynecologic Cytology Case: [id number] Authorizing Provider: Lisa Zelaya MD Collected: 06/28/2023 1455 Ordering Location: [facility] Received: 06/28/2023 1455 Urology Pathologist: Yossi Sterling MD Specimen: Bladder washing Performed By: #### L AB13 #### [facility] ([facility]) [address] [place] [address] LAB AP CLINICAL INFORMATION Order Diagnoses [facility] Comment on above: Order Comment: Via c ysto Result Comment: C67. 4 - Malignant neoplasm of posterior wall of urinary bladder (CMS/HCC) [ICD-10-CM] Performed By: #### L AB13 #### [facility] ([facility]) [address] [facility] [place] [address] LAB AP GROSS DESCRIPTION [facility] Comment on above: Order Comment: Via c ysto Result Comment: 13 m L yellow, cloudy fluid Performed By: #### L AB13 #### [facility] ([facility]) [address] [facility] [place] [address] LAB AP REPORT FINAL DIAGNOSIS NARRATIVE [facility] Comment on above: Order Comment: Via c ysto Result Comment: A. B ladder washing: - Negative for high grade urothelial carcinoma. Performed By: #### L AB13 #### [facility] ([facility]) [address] [place] [address] Procedure Visiton 06-28-2023 Procedure Visit [id number] Wali Bejarano 1960 F Date Provider Department Center 06/28/2023 LISA JOY [facility] Family History Problem Relation Age of Onset Hypertension Mother Family Status - Relation Status Age at Mother Level of Service:76538 MT OFFICE/OUTPATIENT ESTABLISHED LOW MDM 20-29 MIN Reason for Visit and Comments: Follow-up [383173] [facility] Operative Reporton 3 Operative Report [id number] D:127 [facility] Clinical Supporton 3 Clinical Support [id number] Wali Bejarano A 1960 Provider Department Center 06/02/2023 3079-[facility]CC ONC NURSE DCC ONC DCC Family History Problem Relation Age of Onset Hypertension Mother Family Status - Relation Status Age at Mother Normal [facility] Clinical Supporton 3 Clinical Support [id number] Wali Bejarano ruby A 1960 Provider Department Center 05/26/2023 3079-DCC ONC NURSE DCC ONC DCC Family History Problem Relation Age of Onset Hypertension Mother Family Status - Relation Status Age at Mother Reason for Visit and Comments: Procedure [88] - Gutierrez placement #5/6 [facility] Infusionon 05-05-2023 Infusion [id number] Wali Bejarano ruby A 1960 Provider Department Center 05/05/2023 2272-[facility] CH[facility]IR 1 DCC INF DCC Family History Problem Relation Age of Onset Hypertension Mother Family Status - Relation Status Age at Mother Reason for Visit and Comments: Intravesicular Chemo [Other] [facility] Infusionon 04-28-2023 Infusion [id number] Wali Bejarano ruby A 1960 Provider Department Center 04/28/2023 2273-[facility] CH[facility]IR 2 DCC INF DCC No family history on file [facility] Outside Oncologyon 3 Outside Oncology [id number] CD:127 [facility] Consent for Treatmenton 03-31 Consent for Treatment [id number]#1.00C D:127 [facility] Oncology Noteon 04-26-2023 Oncology Note Oncology Signal Person Office Visit/Treatment Note Current Patient Status/Reason: Pt in for scheduled clinic visit. I accompanied Dr. Booth in room. Pt is following with urologist for bladder cancer with [facility] and is getting treatment at [facility], with a physician there. Treatment Plan: none at this time, pt getting mammogram on left by PCP. Follow-Up Appointment Info/Referrals: F/U in 1 year. Resources Offered: Pt voiced no questions or concerns to me when I asked. Instructed pt to call with questions, concerns. Normal [facility] Comment on above: Result Comment: Elec tronically [...] 1 with ductal and lobular features, ER>95%, MT >95%, Her2 neg. Dr. Ward performed R [...] She referred to Dr. Lisa Zelaya at [facility] who repeated the biopsy and [...] Problems Abnormal urinary stream / SNOMED CT 750276189 / Confirmed Vaginal atrophy / SNOMED CT 521967078 / Confirmed BMI 40.0-44.9, adult / SNOMED CT 6895519707 / Confirmed Former smoker / SNOMED CT 58356979 / Confirmed History of UTI / SNOMED CT 5135904551 / Confirmed Mixed incontinence / SNOMED CT 17876410 / Confirmed Enterococcus faecalis infection / SNOMED CT 0884681837 / Confirmed Urothelial carcinoma of bladder / SNOMED CT 937478972 / Confirmed Bladder cancer / SNOMED CT 278506997 / Confirmed OAB (overactive bladder) / SNOMED CT 8608022604 / Confirmed Urinary tract infection / SNOMED CT 315452934 / Confirmed Canceled: Bladder cancer / SNOMED CT 8899615999 Canceled: Microhematuria / SNOMED CT 149062020 Histories Past Medical History: No active or resolved past medical history items have been selected or recorded. Family History: Hypertension Father Mother Brother Anemia Father Arthritis Father Mother Prostate cancer Brother Procedure history: Cystoscopy and biopsy of bladder (1781760790) on 03/13/2023 at 62 Years. Comments: 03/16/2023 12:36 Roxana Fernando BLUE LIGHT CYSTOSCOPY Cystoscopy and transurethral resection of bladder tumor (3567357895) on 12/28/2022 at 62 Years. Comments: 01/04/2023 13:04 Roxana Garrison random bladder biopsies, BL ureteral washing Cystoscopy (16678530) on 12/07/2022 at 62 Years. Cystoscopy and transurethral resection of bladder tumor (8126699047) on 12/22/2021 at 61 Years. TURBT - Transurethral resection of bladder tumor (1510719057) on 07/26/2021 at 61 Years. Cystoscope (11544280) on 07/14/2021 at 61 Years. Breast surgery (6186352365). History of hysterectomy. (9549579370). Cholecystectomy (46375056). Ts - Tonsillectomy (351865252). Bilateral prosthetic arthroplasty of knees (7311843221). Social History Social & Psychosocial Habits Alcohol 07/07/2021 Risk Assessm (more content not included)... Normal [facility] Orders Onlyon 04-07-2023 Orders Only [id number] Wali Bejarano 1960 F Date Provider Department Center 04/07/2023 1644-[facility]TI SCHAEFER [facility] INF DCC No family history on file Normal [facility] Telemedicineon 04-04-2023 Telemedicine [id number] Wali Bejarano 1960 F Date Provider Department Center 04/04/2023 397-LISA ZELAYA DCC ONC DCC No family history on file Level of Service:13622 MT PHYS/QHP TELEPHONE EVALUATION 21-30 MIN Reason for Visit and Comments: Follow-up [675726] - Pathology results Normal [facility] Follow-Upon 03-28-2023 Follow-Up [id number] Wali Bejarano 1960 F Date Provider Department Center 03/28/2023 397-LISA ZELAYA ONC DCC No family history on file Level of Service:38758 MT OFFICE/OUTPATIENT ESTABLISHED HIGH MDM 40-54 MIN Reason for Visit and Comments: Follow-up [049331] - Cysto results Normal [facility] PATH CONSULTon 03-28-2023 LAB AP CASE REPORT Normal [facility] Comment on above: Result Comment: PATH OLOGY CONSULT Case: [id number] Authorizing Provider: Lisa Zelaya MD Collected: 03/28/2023 1439 Ordering Location: [facility] Received: 03/28/2023 1441 Pathologist: Adelita Peralta MD Specimens: A) - Urine, Cytology B) - Ureteral washing, Right, Thin Prep C) - Ureteral washing, Left, Thin Prep Performed By: #### P ATH CONSULT #### [facility] ([facility]) [address] [place] [address] LAB AP CLINICAL INFORMATION Bladder cancer Normal [facility] Comment on above: Performed By: #### P ATH CONSULT #### [facility] ([facility]) [address] [place] [address] LAB AP DIAGNOSIS COMMENT Normal [facility] Comment on above: Result Comment: A. T he specimen is extremely hypocellular and is limited by scant material. B. The specimen is essentially acellular. C. The specimen is extremely hypocellular and is limited by scant material. Performed By: #### P ATH CONSULT #### [facility] ([facility]) [address] [place] [address] LAB AP GROSS DESCRIPTION A. Urine. Normal [facility] Comment on above: Result Comment: Rece ived from [facility], [place] [address], is one (1) previously stained glass slide accessioned [id number], collected on 12-07-22. The slide is accompanied by a copy of the contributing pathologists??? report. B. Ureteral washing. Received from [facility], [address] [place] [address], is one (1) previously stained glass slide accessioned [id number], collected on 12-28-22. The slide is accompanied by a copy of the contributing pathologists??? report. C. Ureteral washing. Received from [facility], [address] [place] [address], is one (1) previously stained glass slide accessioned [id number], collected on 12-28-22. The slide is accompanied by a copy of the contributing pathologists??? report. Performed By: #### P ATH CONSULT #### [facility] ([facility]) [address] [place] [address] LAB AP REPORT FINAL DIAGNOSIS NARRATIVE Normal [facility] Comment on above: Result Comment: A. U rine, cytology (OSS#[id number], 1 slide, collected on 12-07-22): - Rare atypical urothelial cells present (see comment) B. Right ureteral washing, cytology (OSS#[id number], 1 slide, collected on 12-28-22): - Non-diagnostic (see comment) C. Left ureteral washing, cytology ([id number], 1 slide, collected on 12-28-22) - Non-diagnostic (see comment) Performed By: #### P ATH CONSULT #### [facility] ([facility]) [address] [place] [address] LAB AP CASE REPORT Normal [facility] Comment on above: Result Comment: PATH OLOGY CONSULT Case: [id number] Authorizing Provider: Lisa Zelaya MD Collected: 03/28/2023 1418 Ordering Location: [facility] Received: 03/28/2023 1420 Pathologist: Kari Marte MD Specimens: A) - Soft Tissue, Left lateral bladder wall biopsy B) - Soft Tissue, Bladder dome biopsy C) - Soft Tissue, Right lateral bladder wall biopsy D) - Soft Tissue, Right posterior bladder wall biopsy Performed By: #### P ATH CONSULT #### [facility] ([facility]) [address] [place] [address] LAB AP CLINICAL INFORMATION Bladder Cancer [facility] Comment on above: Performed By: #### P ATH CONSULT #### [facility] ([facility]) [address] [place] [address] LAB AP GROSS DESCRIPTION A. Soft Tissue. [facility] Comment on above: Result Comment: Rece ived from [facility], [address] [place] [address], are five (5) previously stained glass slides accessioned [id number], collected on 12-28-22. The slides are accompanied by a copy of the contributing pathologists??? report. B. Soft Tissue. Received from [facility], [address] [place] [address], are two (2) previously stained glass slides accessioned [id number], collected on 12-28-22. The slides are accompanied by a copy of the contributing pathologists??? report. C. Soft Tissue. Received from [facility], [address] [place] [address], are two (2) previously stained glass slides accessioned [id number], collected on 12-28-22. The slides are accompanied by a copy of the contributing pathologists??? report. D. Soft Tissue. Received from [facility], [address] [place] [address], are five (5) previously stained glass slides accessioned [id number], collected on 12-28-22. The slides are accompanied by a copy of the contributing pathologists??? report. Performed By: #### P ATH CONSULT #### [facility] ([facility]) [address] [place] [address] LAB AP REPORT FINAL DIAGNOSIS NARRATIVE [facility] Comment on above: Result Comment: A. L eft lateral bladder wall biopsy (OSS#[id number], 5 slides, collected on 12-28-22): - Denuded urothelium; negative for carcinoma. - Muscularis propria present; negative for carcinoma. B. Bladder dome biopsy (OSS#[id number], 2 slides, collected on 12-28-22): - Benign urothelial mucosa; negative for carcinoma. - No muscularis propria present. C. Right lateral bladder wall, biopsy (OSS#[id number], 2 slides, collected on 12-28-22): - Benign urothelial mucosa; negative for carcinoma. - Muscularis propria present; negative for carcinoma. D. Right posterior bladder wall, biopsy (OSS#[id number], 5 slides, collected on 12-28-22): - Urothelial mucosa with very minute focus of carcinoma in situ. - Muscularis propria present; negative for carcinoma. Performed By: #### P ATH CONSULT #### [facility] ([facility]) [address] [place] [address] [facility] (Inserted Image. Lindsay ble to display) March 21, 2023 DANIELLA BEJARANO [address] [place] [address] : 1960 To whom it may concern, This patient is currently under the care of Dr. Dina Cobb MD at [facility]. We are requesting any and all information regarding her recent surgery she had performed at [facility]. Surgery reports, and any pathology/imaging reports are highly requested to be sent to our office for our records. Please fax any relevant information to our office at [phone]. If you have any questions please feel free to call our office at [phone]. Thank you [facility] [address] [place] [address] Normal [facility] Pathology Noteon 03-18-2023 Pathology Note [id number] D:127 Normal [facility] Reminderson 03-18-2023 Reminders - From: Roxana Lindsey To: [facility] - Recalls [place]; Sent: 01/05/2023 15:34:58 EST Show up: 01/05/2023 15:35:00 EST Subject: appt with Dr Booth Due Date/Time: 01/28/2023 15:35:00 EDT Reminder/Recall Patient will need seen by Dr Booth after blue light cystoscopy is completed at [facility] with Dr Zelaya appt with [...] there is another message in about this. [facility] Orders Onlyon 03-16-2023 Orders Only [id number] AamirWali Perez 1960 F Date Provider Department Center 03/16/2023 STEFAN GRAY [facility] No family history on file [facility] HISTOLOGY - TISSUE EXAMon LAB AP [...] the Clinical Laboratory Improvement Amendments of 1998. [facility] Comment on above: Order Comment: Pre-o p diagnosis: Malignant neoplasm of posterior wall of urinary bladder (CMS/HCC) [C67.4] Performed By: #### L [id number] #### [facility] ([facility]) [address] [place] [address] LAB AP CASE REPORT Normal [facility] Comment on above: Order Comment: Pre-o p diagnosis: Malignant neoplasm of posterior wall of urinary bladder (CMS/HCC) [C67.4] Result Comment: Surg ical Pathology Case: [id number] Authorizing Provider: Lisa Zelaya MD Collected: 03/13/2023809 Ordering Location: [facility] Main Operating Room Received: 03/13/2023903 Pathologist: Kari Marte MD Specimens: A) - Urinary Bladder, 2. right lateral wall bladder lesion, R/O carcinoma in situ B) - Urinary Bladder, right posterior wall bladder lesion R/O carcinoma in CIS C) - Urinary Bladder, left anterior wall bladder lesion R/O carcinoma is situ Performed By: #### L [id number] #### [facility] [address] [place] [address] LAB AP CLINICAL INFORMATION [facility] Comment on above: Order Comment: Pre-o p diagnosis: Malignant neoplasm of posterior wall of urinary bladder (CMS/HCC) [C67.4] Result Comment: Post -Op Diagnoses C67.4 - Malignant neoplasm of posterior wall of urinary bladder (CMS/HCC) [ICD-10-CM] Performed By: #### L [id number] #### [facility] ([facility]) [address] [place] [address] LAB AP DIAGNOSIS COMMENT A-C. CK20 immunostain shows positive staining in only the most superficial cells of the urothelial epithelium; this pattern is consistent with the above diagnoses. Normal [facility] Comment on above: Order Comment: Pre-o p diagnosis: Malignant neoplasm of posterior wall of urinary bladder (CMS/HCC) [C67.4] Performed By: #### L [id number] #### [facility] ([facility]) [address] [place] [address] LAB AP GROSS DESCRIPTION [facility] Comment on above: Order Comment: Pre-o [...] submitted in 1 cassette. Yossi Hardin, Pathologists' Blender Conveyor Operator B. Urinary Bladder. Received in formalin , labeled Daniella Wallsrmario, right posterior wall bladder lesion R/O carcinoma in CIS . It consists of a 0.5 x 0.3 x 0.2 cm irregular rankin soft fragment of tissue. The specimen is entirely submitted in 1 cassette. Yossi Hardin, Pathologists' Blender Conveyor Operator C. Urinary Bladder. Received in formalin , labeled Daniella Wallsrk, left anterior wall bladder lesion R/O carcinoma is situ . It consists of 4 white to pale-rankin soft fragments, 0.4-0.5 cm in greatest dimension and 0.8 x 0.7 x 0.2 cm in aggregate. The specimen is entirely submitted in 1 cassette. Portions of the specimen not survive processing. Yossi Hardin Pathologists' Blender Conveyor Operator Performed By: #### L [id number] #### [facility] (AKER) [address] [place] [address] LAB AP MICROSCOPIC DESCRIPTION Microscopic examination performed. [facility] Comment on above: Order Comment: Pre-o p diagnosis: Malignant neoplasm of posterior wall of urinary bladder (CMS/HCC) [C67.4] Performed By: #### L [id number] #### [facility] ([facility]) [address] [place] [address] LAB AP REPORT FINAL DIAGNOSIS NARRATIVE [facility] Comment on above: Order Comment: Pre-o [...] - See comment. Performed By: #### L [id number] #### [facility] ([facility]) [address] [place] [address] HPon 03-13-2023 HP --- Attestation signed by Lisa Zelaya MD at 03/13/2023 7:31 AM Saw Ms Bejarano explained procedure, informed consent confirmed. Lisa Zelaya MD, FACS Locator Specialist of Urology Chief of Urologic Oncology Ross Garcia Endowed Chair [address] [place] [address]. Mail Stop [address] [place], [place] [address] [facility] [phone] fax H&P reviewed. The patient was examined and there are no changes to the H&P. 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 bladder wash for cytology Performed By: #### L [id number] #### [facility] ([facility]) [address] [place] [address] LAB AP CLINICAL INFORMATION Normal [facility] Comment on above: Order Comment: Pre-o p diagnosis: Malignant neoplasm of posterior wall of urinary bladder (CMS/HCC) [C67.4] Result Comment: Post -Op Diagnoses C67.4 - Malignant neoplasm of posterior wall of urinary bladder (CMS/HCC) [ICD-10-CM] Performed By: #### L [id number] #### [facility] ([facility]) [address] [place] [address] LAB AP DIAGNOSIS COMMENT Normal [facility] Comment on above: Order Comment: Pre-o p diagnosis: Malignant neoplasm of posterior wall of urinary bladder (CMS/HCC) [C67.4] Result Comment: See also concurrent biopsy, [id number]. Performed By: #### L [id number] #### [facility] (BE[facility]ER) [address] [place] [address] LAB AP GROSS DESCRIPTION [facility] Comment on above: Order Comment: Pre-o p diagnosis: Malignant neoplasm of posterior wall of urinary bladder (CMS/HCC) [C67.4] Result Comment: 80 m L yellow, cloudy fluid Performed By: #### L [id number] #### [facility] (BEAKER) [address] [place] [address] LAB AP REPORT FINAL DIAGNOSIS NARRATIVE Normal [facility] Comment on above: Order Comment: Pre-o p diagnosis: Malignant neoplasm of posterior wall of urinary bladder (CMS/HCC) [C67.4] Result Comment: A. B ladder washing: - Rare atypical urothelial cells Performed By: #### L [id number] #### [facility] ([facility]) [address] [place] [address] NURSNOTEon 03-13-2023 NURSNOTE Pt with cont pain/bladder spasm. Notified Dr Barraza. Order for Sharon and given orally due to IV Dc'd after infiltrate. Taken with crackers to avoid stomach upset. Pt cont with Scopalamine patch behind left ear. Instructions given for removal. Normal [facility] NURSNOTE Reviewed DC instructions with patient and [...] in place draining clear yellow urine. Normal [facility] OPNOTEon 03-13-2023 OPNOTE --- Attestation with edits by Lisa Zelaya MD at 03/24/2023 9:42 PM I personally saw and examined the patient on the same date of service as resident/fellow Lloyd Stacy MD. I discussed the findings and therapeutic plan with the resident/fellow . I agree with the documentation, except for any edits/updates below. Teaching Physician's Revisions: I was present and performed entire procedure. Lisa Zelaya MD, FACS Locator Specialist of Urology Chief of Urologic Oncology Ross Garcia Endowed Chair [address] [facility]. Mail Stop [address] [place], [place] [address] [facility] [phone] fax White and Blue-light cystoscopy, BLADDER BIOPSY, FULGURATION X3, Retrograde pyelogram, EUA (B) Operative Note Date: 03/13/2023 Location: [facility] OR Name: Daniella Bejarano, : [...] Priority Lab ID A Bladder washing Washing NON-PLASTICS FABRICATOR OR WELDER CYTOLOGY - CELLULAR EXAM Lisa Zelaya MD [...] bladder lesion R/O carcinoma is situ Staff: [employer]eral [employer] Teacher: Fidelia Enriquez RN Scrub Person: Rika Tsai [...] recurrent bladder tumor. 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 - 01/26/2022: [...] posterior bladde (more content not included)... Normal [facility] POCT GLUCOSE METER UNSOLICIT ED RESULTSon 03-13-2023 Glucose [Mass/Vol] 99 mg/dL Normal 70-105 [facility] Comment on above: Result Comment: pbar retcorson Performed By: #### L [id number] #### [facility] ([facility]ER) [address] [place] [address] Orders Onlyon 03-10-2023 Orders Only [id number] Wali Bejarano A 1960 F Date Provider Department Center 03/10/2023 [id number], HISTORICAL C URO [facility] No family history on file Normal [facility] Outside Labson 03-10-2023 Outside Labs [id number]#1.00 CD:127 Normal [facility] Outside Pathology Reporton 0 03-10-2023 Outside Pathology Report [id number]#1.00 CD:127 Normal [facility] Outside Radiologyon 03-10-20 Outside Radiology [id number]#1.00 CD:127 Normal [facility] Consultation Noteon 03-09-20 Consultation Note [id number]#1.00C D:127 Normal [facility] Orders Onlyon 03-09-2023 Orders Only [id number] Wali Bejarano 1960 F Date Provider Department Center 03/09/2023 MENA VILLAFUERTE [facility] C No family history on file Normal [facility] Pathology Noteon 03-09-2023 Pathology Note [id number]#1.00C D:127 Normal [facility] CBC AUTO DIFFon 03-06-2023 BASO # 0.1 103/ul Normal 0.0-0.1 [facility] Comment on above: Performed By: #### C YTO #### [facility] [address] [place] [address] Dr. Troy Jeter Basophils/100 WBC (Bld) 1.1 % Normal 0.2-2.0 [facility] Comment on above: Performed By: #### C YTO #### [facility] [address] [place] [address] Dr. Troy Jeter EO # 0.2 103/ul Normal 0.0-0.7 [facility] Comment on above: Performed By: #### C YTO #### [facility] [address] [place] [address] Dr. Troy Jeter Eosinophils/100 WBC (Bld) 2.8 % Normal 0.9-7.0 [facility] Comment on above: Performed By: #### C YTO #### [facility] [address] [place] [address] Dr. Troy Jeter Erythrocyte distribution width (RBC) [Ratio] 15.1 % Critically high 11.0-15.0 [facility] Comment on above: Performed By: #### C YTO #### [facility] [address] [place] [address] Dr. Troy Jeter Hematocrit (Bld) [Volume fraction] 39.7 % Normal 36.0-48.0 [facility] Comment on above: Performed By: #### C YTO #### [facility] [address] [place] [address] Dr. Troy Jeter Hemoglobin (Bld) [Mass/Vol] 12.3 g/dL Normal 12.0-16.0 [facility] Comment on above: Performed By: #### C YTO #### [facility] [address] [place] [address] Dr. Troy Jeter IG # 0.02 10e3/ul Normal 0.00-0.03 [facility] Comment on above: Performed By: #### C YTO #### [facility] [address] [place] [address] Dr. Troy Jeter IG % 0.4 % Normal 0.0-0.5 [facility] Comment on above: Performed By: #### C YTO #### [facility] [address] [place] [address] [address] Troy Jeter LYMPH # 1.3 103/ul Normal 1.2-3.8 [facility] Comment on above: Performed By: #### C YTO #### [facility] [address] [place] [address] [address] Troy Jeter Lymphocytes/100 WBC (Bld) 22.0 % Normal 20.5-60.0 [facility] Comment on above: Performed By: #### C YTO #### [facility] [address] [place] [address] Dr. Troy Jeter MANUAL DIFF REQ NO Normal [facility] Comment on above: Performed By: #### C YTO #### [facility] [address] [place] [address] Dr. Troy Jeter MCH (RBC) [Entitic mass] 25.5 pg Critically low 26.7-34.0 [facility] Comment on above: Performed By: #### C YTO #### [facility] [address] [place] [address] Dr. Troy Jeter MCHC (RBC) [Mass/Vol] 31.0 g/dL Normal 29.9-35.2 [facility] Comment on above: Performed By: #### C YTO #### [facility] [address] [place] [address] Dr. Troy Jeter MCV (RBC) [Entitic vol] 82.2 fL Normal 81.0-99.0 [facility] Comment on above: Performed By: #### C YTO #### [facility] [address] [place] [address] Dr. Troy Jeter MONO # 0.5 103/ul Normal 0.3-0.8 [facility] Comment on above: Performed By: #### C YTO #### [facility] [address] [place] [address] Dr. Troy Jeter Monocytes/100 WBC (Bld) 8.6 % Normal 1.7-12.0 [facility] Comment on above: Performed By: #### C YTO #### [facility] [address] [place] [address] Dr. Troy Jeter NEUT # 3.7 103/ul Normal 1.4-6.5 [facility] Comment on above: Performed By: #### C YTO #### [facility] [address] [place] [address] Dr. Troy Jeter Neutrophils/100 WBC (Bld) 65.1 % Normal 43.0-75.0 [facility] Comment on above: Performed By: #### C YTO #### [facility] [address] [place] [address] Dr. Troy Jeter Platelet mean volume (Bld) [Entitic vol] 9.0 fL Critically low 9.5-13.5 [facility] Comment on above: Performed By: #### C YTO #### [facility] [address] [place] [address] Dr. Troy Jeter PLT 211 103/ul Normal 150-450 [facility] Comment on above: Performed By: #### C YTO #### [facility] [address] [place] [address] Dr. Troy Jeter RBC 4.83 106/ul Normal 4.20-5.40 [facility] Comment on above: Performed By: #### C YTO #### [facility] [address] [place] [address] Dr. Troy Jeter WBC 5.7 103/ul Normal 4.0-11.0 [facility] Comment on above: Performed By: #### C YTO #### [facility] [address] [place] [address] Dr. Troy Jeter PROF 14(COMP METB)on 023 Albumin [Mass/Vol] 3.4 g/dL Normal 3.4-5.0 [facility] [place] [facility] Comment on above: Performed By: #### C BC #### [facility] [address] [place] [address] Dr. Troy Jeter Albumin/Globulin [Mass ratio] 0.9 {ratio} Normal [facility] Comment on above: Performed By: #### C BC #### [facility] [address] [address] [address] Troy Jeter ALP [Catalytic activity/Vol] 94 U/L Normal 46-116 [facility] Comment on above: Performed By: #### C BC #### [facility] [address] [address] [address] Troy Jeter ALT [Catalytic activity/Vol] 61 U/L Critically high 14-59 [facility] Comment on above: Performed By: #### C BC #### [facility] [address] [address] [address] Troy Jeter Anion gap [Moles/Vol] 11.6 mmol/L Normal [facility] Comment on above: Performed By: #### C BC #### [facility] [address] [place] [address] Dr. Troy Jeter AST [Catalytic activity/Vol] 48 U/L Critically high 15-37 [facility] Comment on above: Performed By: #### C BC #### [facility] [address] [place] [address] Dr. Troy Jeter Bilirubin [Mass/Vol] 0.3 mg/dL Normal 0.2-1.0 [facility] Comment on above: Performed By: #### C BC #### [facility] [address] [place] [address] Dr. Troy Jeter Calcium [Mass/Vol] 9.3 mg/dL Normal 8.5-10.1 [facility] [place] [facility] Comment on above: Performed By: #### C BC #### [facility] [address] [place] [address] Dr. Troy Jeter Chloride [Moles/Vol] 106 mmol/L Normal 98-107 [facility] Comment on above: Performed By: #### C BC #### [facility] [address] [address] [address] Troy Jeter CO2 [Moles/Vol] 25.4 mmol/L Normal 21.0-32.0 [facility] Comment on above: Performed By: #### C BC #### [facility] [address] [address] [address] Troy Jeter Creatinine [Mass/Vol] 1.06 mg/dL Critically high 0.55-1.02 [facility] Comment on above: Performed By: #### C BC #### [facility] [address] [address] [address] Troy Jeter EGFR-AF [facility] >60 Normal >=60 [facility] Comment on above: Performed By: #### C BC #### [facility] [address] [address] [address] Troy Jeter EGFR-NON AF [facility] 52 mL/min/1.73m2 Critically low >=60 [facility] Comment on above: Performed By: #### C BC #### [facility] [address] [address] [address] Troy Jeter Globulin (S) [Mass/Vol] 4.0 g/dL Normal [facility] Comment on above: Performed By: #### C BC #### [facility] [address] [address] [address] Troy Jeter Glucose [Mass/Vol] 132 mg/dL Critically high 74-106 [facility] Comment on above: Performed By: #### C BC #### [facility] [address] [address] [address] Troy Jeter Potassium [Moles/Vol] 4.0 mmol/L Normal 3.5-5.1 [facility] Comment on above: Performed By: #### C BC #### [facility] [address] [address] [address] Troy Jeter Protein [Mass/Vol] 7.4 g/dL Normal 6.4-8.2 [facility] Comment on above: Performed By: #### C BC #### [facility] [address] [place] [address] Dr. Troy Jeter Sodium [Moles/Vol] 139 mmol/L Normal 136-145 [facility] [place] [facility] Comment on above: Performed By: #### C BC #### [facility] [address] [address] [address] Troy Jeter Urea nitrogen [Mass/Vol] 16.0 mg/dL Normal 7.0-18.0 [facility] Comment on above: Performed By: #### C BC #### [facility] [address] [place] [address] Dr. Troy Jeter Urea nitrogen/Creatinine [Mass ratio] 15.1 mg/mg Normal [facility] Comment on above: Performed By: #### C BC #### [facility] [address] [place] [address] Dr. Troy Jeter CBC AUTO DIFFon 03-02-2023 BASO # 0.1 103/ul Normal 0.0-0.1 [facility] Comment on above: Performed By: #### C YTO #### [facility] [address] [place] [address] Dr. Troy Jeter Basophils/100 WBC (Bld) 0.9 % Normal 0.2-2.0 [facility] Comment on above: Performed By: #### C YTO #### [facility] [address] [place] [address] Dr. Troy Jetre EO # 0.2 103/ul Normal 0.0-0.7 [facility] Comment on above: Performed By: #### C YTO #### [facility] [address] [place] [address] Dr. Troy Jeter Eosinophils/100 WBC (Bld) 2.9 % Normal 0.9-7.0 [facility] Comment on above: Performed By: #### C YTO #### [facility] [address] [place] [address] Dr. Troy Jeter Erythrocyte distribution width (RBC) [Ratio] 15.3 % Critically high 11.0-15.0 [facility] Comment on above: Performed By: #### C YTO #### [facility] [address] [place] [address] Dr. Troy Jeter Hematocrit (Bld) [Volume fraction] 36.8 % Normal 36.0-48.0 [facility] Comment on above: Performed By: #### C YTO #### [facility] [address] [place] [address] Dr. Troy Jeter Hemoglobin (Bld) [Mass/Vol] 11.5 g/dL Critically low 12.0-16.0 [facility] Comment on above: Performed By: #### C YTO #### [facility] [address] [place] [address] Dr. Troy Jeter IG # 0.02 10e3/ul Normal 0.00-0.03 [facility] Comment on above: Performed By: #### C YTO #### [facility] [address] [place] [address] Dr. Troy Jeter IG % 0.3 % Normal 0.0-0.5 [facility] Comment on above: Performed By: #### C YTO #### [facility] [address] [place] [address] Dr. Troy Jeter LYMPH # 1.5 103/ul Normal 1.2-3.8 [facility] Comment on above: Performed By: #### C YTO #### [facility] [address] [place] [address] Dr. Troy Jeter Lymphocytes/100 WBC (Bld) 24.8 % Normal 20.5-60.0 [facility] Comment on above: Performed By: #### C YTO #### [facility] [address] [place] [address] Dr. Troy Jeter MANUAL DIFF REQ NO Normal [facility] Comment on above: Performed By: #### C YTO #### [facility] [address] [place] [address] Dr. Troy Jeter MCH (RBC) [Entitic mass] 25.4 pg Critically low 26.7-34.0 [facility] Comment on above: Performed By: #### C YTO #### [facility] [address] [place] [address] Dr. Troy Jeter MCHC (RBC) [Mass/Vol] 31.3 g/dL Normal 29.9-35.2 [facility] Comment on above: Performed By: #### C YTO #### [facility] [address] [place] [address] Dr. Troy Jeter MCV (RBC) [Entitic vol] 81.4 fL Normal 81.0-99.0 [facility] Comment on above: Performed By: #### C YTO #### [facility] [address] [place] [address] Dr. Troy Jeter MONO # 0.5 103/ul Normal 0.3-0.8 [facility] Comment on above: Performed By: #### C YTO #### [facility] [address] [place] [address] Dr. Troy Jeter Monocytes/100 WBC (Bld) 8.4 % Normal 1.7-12.0 [facility] Comment on above: Performed By: #### C YTO #### [facility] [address] [place] [address] Dr. Troy Jeter NEUT # 3.7 103/ul Normal 1.4-6.5 [facility] Comment on above: Performed By: #### C YTO #### [facility] [address] [place] [address] Dr. Troy Jeter Neutrophils/100 WBC (Bld) 62.7 % Normal 43.0-75.0 [facility] Comment on above: Performed By: #### C YTO #### [facility] [address] [place] [address] Dr. Troy Jeter Platelet mean volume (Bld) [Entitic vol] 9.2 fL Critically low 9.5-13.5 [facility] Comment on above: Performed By: #### C YTO #### [facility] [address] [place] [address] Dr. Troy Jeter PLT 193 103/ul Normal 150-450 [facility] Comment on above: Performed By: #### C YTO #### [facility] [address] [place] [address] Dr. Troy Jeter RBC 4.52 106/ul Normal 4.20-5.40 [facility] Comment on above: Performed By: #### C YTO #### [facility] [address] [place] [address] Dr. Troy Jeter WBC 5.9 103/ul Normal 4.0-11.0 [facility] Comment on above: Performed By: #### C YTO #### [facility] [address] [address] [address] Troy Jeter GLYCOHEMOGLOBIN A1Con 2022 ADA RECOMMENDATION SEE BELOW Normal [facility] Comment on above: Result Comment: ADA RECOMMENDED LIMIT 4.0 - 6.0 ADA THERAPEUTIC TARGET < 7.0 ACTION SUGGESTED > 7.0 Performed By: #### C BC #### [facility] [address] [address] [address] Troy Jeter Glucose [Mass/Vol] 123 mg/dL Normal [facility] Comment on above: Performed By: #### C BC #### [facility] [address] [place] [address] Dr. Troy Jeter HbA1c (Bld) [Mass fraction] 5.9 % Normal 4.5-6.2 [facility] Comment on above: Performed By: #### C BC #### [facility] [address] [place] [address] Dr. Troy Jetre LIPID PROFILEon 03-02-2023 CHOL-HDL RATIO NORM SEE BELOW Normal [facility] Comment on above: Result Comment: 3.3 - 4.4 LOW RISK 4.4 - 7.1 AVERAGE RISK 7.1 - 11.0 MODERATE RISK >11.0 HIGH RISK Performed By: #### C YTO #### [facility] [address] [place] [address] Dr. Troy Jeter Cholesterol [Mass/Vol] 156 mg/dL Normal <=200 [facility] Comment on above: Performed By: #### C YTO #### [facility] [address] [address] [address] Troy Jeter Cholesterol in HDL [Mass/Vol] 64 mg/dL Critically high 40-60 [facility] Comment on above: Performed By: #### C YTO #### [facility] [address] [place] [address] Dr. Troy Jeter Cholesterol in LDL [Mass/Vol] 76.4 mg/dL Normal [facility] Comment on above: Performed By: #### C YTO #### [facility] [address] [address] [address] Troy Jeter Cholesterol.total/Ch olesterol in HDL [Mass ratio] 2.4 {ratio} Normal [facility] Comment on above: Performed By: #### C YTO #### [facility] [address] [address] [address] Troy Jeter HDL NORMAL > or = 60 mg/dl - LO W CARDIOVASCULAR RISK <40 mg/dl - HIGH CARDIOVASCULAR RISK Normal [facility] Comment on above: Performed By: #### C YTO #### [facility] [facility] [address] [place] [address] Dr. Troy Jeter LDL CALC NORMAL SEE BELOW Normal [facility] Comment on above: Result Comment: <100 mg/dl OPTIMAL 100 - 129 mg/dl NEAR OR ABOVE OPTIMAL 130 - 159 mg/dl BORDERLINE HIGH 160 - 189 mg/dl HIGH >190 mg/dl VERY HIGH Performed By: #### C YTO #### [facility] [address] [place] [address] Dr. Troy Jeter Triglyceride [Mass/Vol] 78 mg/dL Normal <=150 [facility] Comment on above: Performed By: #### C YTO #### [facility] [address] [place] [address] Dr. Troy Jeter VLDL CALC 15.6 mg/dL Normal [facility] Comment on above: Performed By: #### C YTO #### [facility] [address] [place] [address] Dr. Troy Jeter PROF 14(COMP METB)on 023 Albumin [Mass/Vol] 3.2 g/dL Critically low 3.4-5.0 Th [facility] Comment on above: Performed By: #### C YTO #### [facility] [address] [place] [address] Dr. Troy eJter Albumin/Globulin [Mass ratio] 0.8 {ratio} Normal [facility] Comment on above: Performed By: #### C YTO #### [facility] [address] [place] [address] Dr. Troy Jeter ALP [Catalytic activity/Vol] 90 U/L Normal 46-116 [facility] Comment on above: Performed By: #### C YTO #### [facility] [address] [place] [address] Dr. Troy Jeter ALT [Catalytic activity/Vol] 58 U/L Normal 14-59 [facility] Comment on above: Performed By: #### C YTO #### [facility] [address] [place] [address] Dr. Troy Jeter Anion gap [Moles/Vol] 10.5 mmol/L Normal [facility] Comment on above: Performed By: #### C YTO #### [facility] [address] [place] [address] Dr. Troy Jeter AST [Catalytic activity/Vol] 40 U/L Critically high 15-37 [facility] Comment on above: Performed By: #### C YTO #### [facility] [address] [place] [address] Dr. Troy Jeter Bilirubin [Mass/Vol] 0.3 mg/dL Normal 0.2-1.0 [facility] Comment on above: Performed By: #### C YTO #### [facility] [address] [place] [address] Dr. Troy Jeter Calcium [Mass/Vol] 9.1 mg/dL Normal 8.5-10.1 [facility] Comment on above: Performed By: #### C YTO #### [facility] [address] [place] [address] Dr. Troy Jteer Chloride [Moles/Vol] 106 mmol/L Normal 98-107 [facility] Comment on above: Performed By: #### C YTO #### [facility] [address] [place] [address] Dr. Troy Jeter CO2 [Moles/Vol] 27.6 mmol/L Normal 21.0-32.0 [facility] Comment on above: Performed By: #### C YTO #### [facility] [address] [place] [address] Dr. Troy Jeter Creatinine [Mass/Vol] 1.01 mg/dL Normal 0.55-1.02 [facility] Comment on above: Performed By: #### C YTO #### [facility] [address] [address] [address] Troy Jeter EGFR-AF [facility] >60 Normal >=60 [facility] Comment on above: Performed By: #### C YTO #### [facility] [address] [address] [address] Troy Jeter EGFR-NON AF [facility] 55 mL/min/1.73m2 Critically low >=60 [facility] Comment on above: Performed By: #### C YTO #### [facility] [address] [place] [address] Dr. Troy Jeter Globulin (S) [Mass/Vol] 3.9 g/dL Normal [facility] Comment on above: Performed By: #### C YTO #### [facility] [address] [place] [address] Dr. Troy Jeter Glucose [Mass/Vol] 112 mg/dL Critically high 74-106 [facility] Comment on above: Performed By: #### C YTO #### [facility] [address] [place] [address] Dr. Troy Jeter Potassium [Moles/Vol] 4.1 mmol/L Normal 3.5-5.1 [facility] Comment on above: Performed By: #### C YTO #### [facility] [address] [place] [address] Dr. Troy Jeter Protein [Mass/Vol] 7.1 g/dL Normal 6.4-8.2 [facility] Comment on above: Performed By: #### C YTO #### [facility] [address] [place] [address] Dr. Troy Jeter Sodium [Moles/Vol] 140 mmol/L Normal 136-145 [facility] Comment on above: Performed By: #### C YTO #### [facility] [address] [place] [address] Dr. Troy Jeter Urea nitrogen [Mass/Vol] 14.0 mg/dL Normal 7.0-18.0 [facility] Comment on above: Performed By: #### C YTO #### [facility] [address] [address] [address] Troy Jeter Urea nitrogen/Creatinine [Mass ratio] 13.9 mg/mg Normal [facility] Comment on above: Performed By: #### C YTO #### [facility] [address] [address] [address] Troy Jeter TSHon 03-02-2023 TSH 3.047 uIU/mL Normal 0.358-3.740 [facility] Comment on above: Performed By: #### C YTO #### [facility] [address] [address] [address] Troy Jeter Orders Onlyon 02-28-2023 Orders Only [id number] Wali Bejarano 1960 F Date Provider Department Center 02/28/2023 [id number], HISTORICAL [facility] history on file Normal [facility] HPon 02-22-2023 HP PATIENT: Daniella Bejarano DATE [...] recurrent bladder tumor. 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 - 01/26/2022: [...] , Rfl: ergocalciferol (Vitamin D-2) 1.25 MG (70773 Units) capsule, Take by mouth., Disp: , [...] calcium carb-vitam (more content not included)... Normal [facility] NON-PLASTICS FABRICATOR OR WELDER CYTOLOGY - CELLULAR EXAMon 02-22-2023 LAB AP CASE REPORT Normal [facility] Comment on above: Result Comment: Non- gynecologic Cytology Case: [id number] Authorizing Provider: Lisa Zelaya MD Collected: 02/22/2023 1206 Ordering Location: [facility] Received: 02/22/2023 1206 Urology Pathologist: Yossi Sterling MD Specimen: Urine, Voided Performed By: #### L [id number] #### [facility] ([facility]) [address] [place] [address] LAB AP CLINICAL INFORMATION Order Diagnoses [facility] Comment on above: Result Comment: C67. 4 - Malignant neoplasm of posterior wall of urinary bladder (CMS/HCC) [ICD-10-CM] Performed By: #### L [id number] #### [facility] ([facility]) [address] [place] [address] LAB AP GROSS DESCRIPTION [facility] Comment on above: Result Comment: 12 m L yellow, cloudy fluid Performed By: #### L [id number] #### [facility] ([facility]) [address] [place] [address] LAB AP REPORT FINAL DIAGNOSIS NARRAT[facility] Comment on above: Result Comment: A. U rine, Voided: - Negative for high grade urothelial carcinoma. Performed By: #### L [id number] #### [facility] ([facility]) [address] [place] [address] Office Visiton 02-22-2023 Follow-up visit [id number] Wali Bejarano 1960 Date Provider Department Center 02/22/2023 LISA JOY [facility] No family history on file Level of Service:87543 MT OFFICE/OUTPATIENT NEW HIGH MDM 60-74 MINUTES Reason for Visit and Comments: New Patient [632] - Bladder ca Normal [facility] Orders Onlyon 02-22-2023 Orders Only [id number] Wali Bejarano 1960 Date Provider Department Center 02/22/2023 [id number] DEMPSEY [facility] No family history on file [facility] URINALYSIS WITH MICROSCOPICo n 02-22-2023 BILIRUBIN, TOTAL PRESENCE IN URINE Negative Normal Negative [facility] Comment on above: Performed By: #### L [id number] ####[facility] ([facility])[address] [place] [address] Clarity (U) Clear Normal Clear [facility] Comment on above: Performed By: #### L [id number] ####[facility] [place] [address] Color (U) Yellow Normal Yellow [facility] Comment on above: Performed By: #### L [id number] ####[facility] ([facility])[address] [place] [address] Glucose (U) [Mass/Vol] Negative Normal Negative [facility] Comment on above: Performed By: #### L [id number] ####[facility] ([facility])[address] [place] [address] HEMOGLOBIN PRESENCE IN URINE Negative Normal Negative [facility] Comment on above: Performed By: #### L [id number] ####[facility] ([facility])[address] [place] [address] Ketones Ql (U) Negative Normal Negative [facility] Comment on above: Performed By: #### L [id number] ####[facility] ([facility])[address] [place] [address] LEUKOCYTE ESTERASE PRESENCE IN URINE BY TEST STRIP Trace Abnormal Negative [facility] Comment on above: Performed By: #### L [id number] ####[facility] ([facility])[address] [place] [address] MUCUS (#/HPF) IN URINE SEDIMENT Occasional Normal None Seen, Occasional, Few [facility] Comment on above: Performed By: #### L [id number] ####[facility] ([facility])[address] [place] [address] NITRITE PRESENCE IN URINE Negative Normal Negative [facility] Comment on above: Performed By: #### L [id number] ####[facility] [place] [address] pH (U) 5.0 [pH] Normal 5.0-8.0 [facility] Comment on above: Performed By: #### L [id number] ####[facility] ([facility])[address] [place] [address] Protein (U) [Mass/Vol] Negative Normal Negative [facility] Comment on above: Performed By: #### L [id number] ####[facility] ([facility])[address] [place] [address] RBC (#/HPF) IN URINE SEDIMENT None Seen Normal None Seen [facility] Comment on above: Performed By: #### L [id number] ####[facility] ([facility])[address] [place] [address] Specific gravity (U) [Rel density] 1.011 Low 1.015-1.020 [facility] Comment on above: Performed By: #### L [id number] ####[facility] ([facility])[address] [place] [address] SQUAMOUS EPITHELIAL CELLS (#/HPF) IN URINE SEDIMENT Many Abnormal None Seen, Occasional [facility] Comment on above: Performed By: #### L [id number] ####[facility] ([facility])[address] [place] [address] WBC (LEUKOCYTE) (#/HPF) IN URINE SEDIMENT 3-5 Abnormal None Seen [facility] Comment on above: Performed By: #### L [id number] ####[facility] ([facility])[address] [place] [address] URINE CULTURE, ROUTINEon Bacteria identified Cx Nom (U) No growth at 18-24 hours Normal [facility] Comment on above: Performed By: #### L [id number] ####[facility] ([facility])[address] [place] [address] Orders Onlyon 01-17-2023 Orders Only [id number] Wali Bejarano 1960 F Date Provider Department Center 01/17/2023 [id number], HISTORICAL [facility] No family history on file Normal [facility] Retail - Clinical Noteon Retail - Clinical Note [id number]#1.00C D:127 Normal [facility] Ambulatory Visit Summaryon 0 01-04-2023 Ambulatory Visit [...] bladder f (more content not included)... Normal [facility] Patient Educationon 01-05-20 Patient Education Oncology Bladder [...] Follow these instructions at home: ? Take esyu-fxv-gnvjexe and prescription medicines only as told by [...] important. Where to find more information ? [place] [employer]: www.cancer.org ? National Cancer [place] (NCI): www.cancer.gov Contact a health care provider [...] 10/18/2004 Document Revised: 09/28/2018 Document Reviewed: 09/19/2017 [employer] Patient Education ? 2019 [employer]. Normal [facility] Urology Office/Clinic Noteon 01-04-2023 Urology Office/Clinic Note [...] see if Blue Light Cystoscopy available at [facility] for TURBT to further evaluate and resect possible CIS. -Our office w/ consult with Dr. Booth regarding treatment in setting of suspected malignancy. 2. OAB (overactive bladder) (N32.81: Overactive bladder) Continues taking VESIcare 10mg daily. Improvement but still with sx Patient has new insurance and will attempt to get Myrbetriq covered. Has dianne (more content not included)... Normal [facility] Comment on above: Result Comment: Elec tronically Signed By: Dina Cobb MD\.br\Date and Time Signed: 01/04/23 12:20 EST\.br\Electronically Co-Signed By: Pratibha Rodriguez\.br\Date and Time Co-Signed: 01/04/23 09:08 EST\.br\Electronically Co-Signed By: Pratibha Rodriguez\.br\Date and Time Co-Signed: 01/04/23 09:18 EST Lab Reportson 01-03-2023 Lab Reports [id number]#1.00C D:127 Normal [facility] Pathology Noteon 01-03-2023 Pathology Note [id number]#1.00CD :127 Normal [facility] Pathology Note [id number]#1.00C D:127 Normal [facility] Operative Reporton Operative Report [id number]#1.00C D:127 Normal [facility] Formson 12-29-2022 Forms [id number]#1.00C D:127 Normal [facility] CYTOLOGYon 12-28-2022 SENT TO REF LAB 12/28/2022 [facility] Comment on above: Performed By: #### C YTO #### [facility] [address] [place] [address] Dr. Troy Jeter SENT TO REF LAB 12/28/2022 [facility] Comment on above: Performed By: #### C YTO #### [facility] [address] [place] [address] Dr. Troy Jeter Pre-Certification Formon Pre-Certification Form [id number]#1.0 0CD:127 Normal [facility] PROTIMEon 12-21-2022 INR Coag (PPP) [Relative time] 1.00 {INR} Normal [facility] Comment on above: Performed By: #### C YTO #### [facility] [address] [place] [address] Dr. Troy Jeter INR GUIDELINES SEE BELOW Normal [facility] Comment on above: Result Comment: [place] RED INR: 2.0 - 3.0 CONDITIONS NOT LISTED BELOW 2.5 - 3.5 FOR PROSTHETIC HEART VALVE REPLACEMENT 2.5 - 3.5 RECURRENT THROMBOSIS Performed By: #### C YTO #### [facility] [address] [place] [address] Dr. Troy Jeter PT Coag (PPP) [Time] 10.6 s Normal 9.0-11.6 [facility] Comment on above: Performed By: #### C YTO #### [facility] [address] [place] [address] Dr. Troy Jeter PTTon 12-21-2022 aPTT Coag (Bld) [Time] 26.9 s Normal 22.3-36.2 [facility] Comment on above: Performed By: #### C YTO #### [facility] [address] [place] [address] Dr. Troy Jeter Coding Summary.on 12-17-2022 Coding Summary. CD:[id number] Gh0 bWw+PGhlYWQ+ZJ2IBTKqC80 jeMZbbH8XN6aUHY2HVVLEQG HNOV8FJZ0jsOU4HAtjP7Bgo iAv NgagtVAeIU34YPh5BII8oIg gMCohzQ0stXUjV0r7UyEdOQ 70vE31KIkzDDKdAwQ7SiOag jsgbWFy C7nkTlNenEMqXfc+PHRhYmx lIHdpZHRoPScxMDAlJyBzdH keYC2gAq5sIICpPGPpmKvwg HNlOiBj q9jhZNXyJPjiGX8bnWhtT7H fwPK8ATRmr4g0Vr32tMT+PH LpZLE7vBflVWosd736HpNjx 4bjWXK0 bEHoYFrcCZE3E07do0S4VAB uBKAiHVE0jFK5jE8fmHzypv hgD9ZfvOIzGzQ7XVG3hRIsr J7exAbu jfephH4mXzw+S75TUA0GGOS UEJ7SWhm1T1DnXgjzfJP+PC 26PWPiBE49zEBdiFCjz3zvf Ex6FmUf RPNoDRP7oOuoQCapq7NkGKU pU61nmNAgl8I3RQKdxUlbgW BsVxXbmCE1gS0eEJayfxcfm 2hvdzsn Stekv2yjid19xB29S80qUPx jGWIaHZZ4TBVsKYMcyKekph 6yqI3xKs4+AEqck6cyb6brl Pd6PnWf OHAjrkShoNphDVJ7y6ErDz3 3Q2GfpHqvc7OvSfx8os19kV Wos5F7jUW5YQxuTCYwoN0iF WxlZnQ6 RMOvPgHtsA69oYEiNUjvKz4 cnAiaaXljTJ8gNYQjinwnTC ZxjA9bQDHnuIUgsWcgZD4eO TBpbjtm j539CtIbABJ6QTDxiGQiZ5V caM7jSsIeSCWvMYJlD7TnwJ GkDGmzE567MBrvXyV5DJNjf dXeB4Fv AULvoBkrTrI8q2I1Rx6Fq3K mgecvQBS8EWxbMZZgDiF7Dj SzWpC7I6XdBip5RRCjoFqtU K4mM7Fv QLIbbhcmtsaqnAY0YAHsXND voL98oLGlOXkjCk3uf3Q2j2 61UXXfRORvdE74Ui1yxSggH TBwdCBU oS7okhumc2kdnmxnZjNxKAM xDWf1QKw0PKXxrDfaZeHrWZ A2QqK3CQW8aTMevE2vvBjur jgekG4m Oyc+G40tmS7gTJV2MSF2izw pFODkuaNfMF91IU53O2PyIj wvdGFibGU+PGRpdiBzdHlsZ J7sWkNn u9yfi2AaZBooH3VfTPEsJAx oLgx4WQPaSAI3iLZ8pR9fHV MbEWfaa1I9cNG7Y3GmweBuv x4dj9ok ZVDcPJduD75ffVAjj3A2RGG syLH3GCAurEcdOcKwmU36Qk c+MQVebWgvs9PyDmcqz4fjg 2qxeWb9 BoPqWSWtomEzkVriCCQ7w2K mTc79E32jPXfmVSAoUADrUI IrZHPqgHhbur3krI6fTr4+P GNvbCB3 tRA6eO3dMTKbPsH3CLroP09 4EvIuqEWoUtmdr7ueq7xdqS e4QvWoXEMtesWzkRlqJAB5t 6AuFe25 S27pAFohKZWcRFVxZTPrXXN dmIzasx4lbV0zSd8+PC9jb2 oonf00kE93nMH+RIFwOSM3y WxlPSdw OIKbfM2aSDqbOaI8IRWpZhO klA72uNHuNYouGy4kdExnwE djQG2vXWDfokrrx899QgXej 2xkIDEw rSGlVMpdXIU5R95lz5K1XQW hVXMjFYS3vFB3fG0atCfpof ogbGVmdDsgdmVydGljYWwtY EilM183 IHRvcDsnPlBhdGllbnQgTmF aJEr3R3XyGuj7QVBiyZmkYI 7ugWMfXLqwDv7qiDdwtUwqE A2vMPQl oyjio937UaRmm2iwGYHxiYQ dMMstEWH0A83az3F1BFCfZY ZwEOH8mBJ4rE8kmYhacdyte GVmdDsg erVkwFoiUZrsHWxwK226ZRQ jnVgbFpTcvrGuWNHlkGW7JL 77VX89uVFoc8S3mSL7R4JuT GRpbmct dhieiPR4BMXtAWZxkJ95Ow3 unZljGq9iWYSeLAD4RQWshK SuN9YlfZ9pYjNqOEFkZFYxM 3RleHQt PWwwZ509SEnuVrR2JNJvcvX xV8IcVSJgsGraPsF9y9M6Ze 2AD0B9JA50FB23yGGdg7I0h DD8N0Pr JDSpfsryvaligKL0FBIzUMH liI19Ho6heRlaGd3aODKeQX L9XFYynDXzN8LnzC2kOmFvS DAwMDAw Y1EbxXAbYWwoO733GDuwZnI 3YHWuauYhE2PrYORsaJvmTf N2n7X8Cy4NSGk2TA81SY23x ILnv6C2 nWU9V6WjURQnlthazhbszMW 1GAQiIJPqnX65Dz0jnJzxLt 2aHLNfOST6XFNywHPbI0Lno X9rGiTv UKCgREVpP8LgvMFuMBzeY28 5ZTjfCpW7CYSpkhFoL6CxEP MhpJxbHwQ0z6Q9Xz4HXSBxB X12GLH7 bGB7QN77EN45A7SiChpnbYC ibGU+PHRhYmxlIHdpZHRoPS kdPVWlNlNjuCvoIN3rIa1gD GVyLWNv aMydxEZlXzOls1jpBQKnFZi xSM6meZxqS8PqlDL2PYBpe0 q7Dj97X11vH1VnyMI+PGNvb NO2ePP1 zI5uToVrBtN3JAopQ690SmW mtSTrQucdq3sro1lnhMh8Ud P9PPCitmXcpHphYME8l9PjD i13K11n IHdpZHRoPSIxNSUiIHZhbGl fyb0kfL4uSb2+QLYtoOC7cA P6nG7tZkWxXrC8ROywB339A nRvcCIv Hdlyo6ron2ppwKx3InQyLYT bvpSflQgfYGG1o9LhMs24G2 AviMdoi5WeFfc2zs89aPYmd 3O1jKU6 W7WjMXJzxyyvkLRdqSqiYU1 fVADgxneyKIUkoO3uNSEbP8 c7ZkYmHzI1XBznU1XpxzI6Z DEwcHQg WCgwWWR6K01zm2N3MEZhKTF nDCT9gSZ3kP8pnGbyphsiiR VmdDsgdmVydGljYWwtYWxpZ 246IHRv tOheYXXfzH0bZBLsyVMstTd lHP0mBDChymcnIn5FMFzXMv zdRZLCCbyIJiHGZP83UZ54c TQon0A6 dLC3V0UsXDHjjktlrndusCJ 1RFRbSJYrqZ28gOGrUOaqAb 7tf8U2j351EDVdAWEkvL67W e4iwPfu NRVndQFWwR2txyift6lnufd eYlSrNXChWFi6ZMg6SDChgG pxJcZkWGF6OuM3GPS6kNMke K8tjAtc ofjvoL8nPho+MDgvMjIvMTk 1ODwvdGQ+XCWcSZG0wMvaPB pgVMVmiA5tGGPhS5i8UnYyF oQ7MRpl U0NvQYUpdfjlOy47vS4tQlJ jYsV0ECsqY1QmtgY3LCNubN ZrLPvtHLG5X27if2V9VXRiB DAwMDA7 rNA8iX0aeZsrohklxIVogPx uzzWglHtnPDjjRZbkJ564TD DxhEgcTgD1RMjcPXRzHC08A J09lQRn e5H5jEX9G3ZrUGDbgwmcugy evGT5GCQtQIWetS36aLAwQS ggXo9eo7T6p882BZYlOYGye C21Kw0b tHicIXJijGTFrE9nfdwva8l ybhbyVyHaWKQeHZi7WXz0RE OiuBjfGiGfFUB9HhX8WQT4y BHrgO7d hUlhyqiodK9fDcc+RmVtYWx nCE71XY28pEDqy3H6dHW2B9 MiQKWdwfazmyydxPE7PPDlX DUwaW47 nBSnPHosMd0fd0N9b981QIY dSURjuP43Iw5moRlqPLIhfD UKlR9bnccbe5neyvjpFtPmQ DAwMDt0 TAo1ZPYfoYcvSqYxHQJ9RxQ 9SQP1iRBqgT7xoKnzhoxzoU 9wOyc+GJSsOFAyj2Zsz8JtJ P97UT78 E6XoKgxyyVDfwBY+PHRhYmx lIHdpZHRoPScxMDAlJyBzdH ibKJ7rYz9vDWGiTVFclBwrx HNlOiBj b6tpKCNiRPhzTA2ddIizP5Y uyVM1TNMmh9h5Qu51N36xY8 JvdXA+AKEonHT5oHU6iO9dM zAlIiB2 DLykJ782OeQhyLYpTyvjn5o cn2kpzIj6SzCvMHRkuoPneD dnIGH0j6GbZr29Z22iHAprR HRoPSIy EZKbVTLnnNtziy9tyA4nOy1 +BGAtzAZ0bQY2mZ3kRaXfWp E8CRdyG053DpFvvXArQaopS 73rW7Rr dXA+WKSjJlz8FUBygEbnSX4 opJMwOEhgIl9gGFA3HkSdAq MvUUzaS1TsFRPkisnxyifgp OV6ZKEm ZACwuQ47Or2yaHsfQl2pUHT sIKK4XFOivWWdM7TzgM5tQy DsGVJyPJChD2NnrTZvCWnnW 246IGxl UcY8OZFnygPgQ1ZdCBJhcXa eFiD0n7C0Xj5WiKegbWEgLZ 0bQgAsTJe9P3FsNdl8MVWwi WepYP4s tOFcKNjdBr1feEoxcVnmIB4 dJHKoqdtqc662AvDyu9vpHG GxvYMeFIipJYJ4R07sr3C5M CMwMDAw XPR5cTN0jO5kyAcjigrsiTS mdDsgdmVydGljYWwtYWxpZ2 44DMWrzBwvRvBUVlx7W6VxB yr3SKJn cSkeDY2mkCGhRMovHx8uuLo xpZjlAQ6rMHNjeryjn021Nn Pfk5jqXWAvuCMjDZewGCF9V 33by3B2 HBSjFYIsRSD9uQD3sS5kfDl nbjogbGVmdDsgdmVydGljYW hfUTrsF003GKUshRplPz9XS yl9S8Ya Rgn3OCTtlAnpKM1unWPzJSn qZl2hrNiexMniLY6kBQBrpa aza888VwHsy0evCOLmsBPsZ GltZXM7 S60yb0X2DVOgBVCuDOB2vIG 7nL5neLqrgvqakMKjbNbyfq FblUctCXnlWWxxA482LSPnn DsnPlBh eWVyOjwvdGQ+GF57zy65E6J rMvmiGkh9VJFzIOI0fMB6wD 1vGYDgEDfdo0N7nNG4C5Czp cXjky1b b2xs (more content not included)... Normal [facility] C Urineon 12-16-2022 Bacteria identified Cx Nom (U) Microbiology PROCEDURE: Urine Culture [R1] SOURCE: U Random BODY SITE: COLLECTED DATE/TIME: 12/14/2022 11:17 EST RECEIVED DATE/TIME: 12/14/2022 17:31 EST START DATE/TIME: 12/14/2022 17:31 EST FREE TEXT SOURCE: Blanca Arriaza, Blanca Perez FINAL REPORTS Final Report [] Verified Date/Time: 12/16/2022 09:26 EST 1,000 cfu/ml Mixed skin contaminants Performing Locations R1: This test was performed at: [facility], [address] [place] [address], [facility] , , [facility] Comment on above: Performed By: #### 2 [id number] ####[facility] [address] [place] [address] Ambulatory Visit Summaryon 0 12-14-2022 Ambulatory Visit [...] Urothelial carcinoma of bladder Vaginal atrophy Normal [facility] Operative Reporton 02-14-202 3 Operative Report [id number] D:127 Normal [facility] Pathology Noteon 12-13-2022 Pathology Note [id number]#1.00C D:127 Normal [facility] CYTOLOGYon 12-07-2022 SENT TO REF LAB 12/07/2022 Normal [facility] Comment on above: Performed By: #### C YTO #### [facility] [address] [place] [address] Dr. Troy Jeter Insurance Correspondenceon 0 11-25-2022 Insurance Correspondence [id number] :127 Normal [facility] CBC AUTO DIFFon 11-23-2022 BASO # 0.1 103/ul Normal 0.0-0.1 [facility] Comment on above: Performed By: #### C BC #### [facility] [address] [place] [address] Dr. Troy Jeter Basophils/100 WBC (Bld) 1.0 % Normal 0.2-2.0 [facility] Comment on above: Performed By: #### C BC #### [facility] [address] [place] [address] Dr. Troy Jeter EO # 0.1 103/ul Normal 0.0-0.7 [facility] Comment on above: Performed By: #### C BC #### [facility] [address] [place] [address] Dr. Troy Jeter Eosinophils/100 WBC (Bld) 2.4 % Normal 0.9-7.0 [facility] Comment on above: Performed By: #### C BC #### [facility] [address] [place] [address] Dr. Troy Jeter Erythrocyte distribution width (RBC) [Ratio] 14.6 % Normal 11.0-15.0 [facility] Comment on above: Performed By: #### C BC #### [facility] [address] [place] [address] Dr. Troy Jeter Hematocrit (Bld) [Volume fraction] 37.7 % Normal 36.0-48.0 [facility] Comment on above: Performed By: #### C BC #### [facility] [address] [place] [address] Dr. Troy Jeter Hemoglobin (Bld) [Mass/Vol] 11.0 g/dL Critically low 12.0-16.0 [facility] Comment on above: Performed By: #### C BC #### [facility] [address] [place] [address] Dr. Troy Jeter IG # 0.02 10e3/ul Normal 0.00-0.03 [facility] Comment on above: Performed By: #### C BC #### [facility] [address] [place] [address] Dr. Troy Jeter IG % 0.4 % Normal 0.0-0.5 [facility] Comment on above: Performed By: #### C BC #### [facility] [address] [place] [address] Dr. Troy Jeter LYMPH # 1.3 103/ul Normal 1.2-3.8 [facility] Comment on above: Performed By: #### C BC #### [facility] [address] [place] [address] Dr. Troy Jeter Lymphocytes/100 WBC (Bld) 25.5 % Normal 20.5-60.0 [facility] Comment on above: Performed By: #### C BC #### [facility] [address] [place] [address] Dr. Troy Jeter MANUAL DIFF REQ NO Normal [facility] Comment on above: Performed By: #### C BC #### [facility] [address] [place] [address] Dr. Troy Jeter MCH (RBC) [Entitic mass] 25.9 pg Critically low 26.7-34.0 [facility] Comment on above: Performed By: #### C BC #### [facility] [address] [place] [address] Dr. Troy Jeter MCHC (RBC) [Mass/Vol] 29.2 g/dL Critically low 29.9-35.2 [facility] Comment on above: Performed By: #### C BC #### [facility] [address] [place] [address] Dr. Troy Jeter MCV (RBC) [Entitic vol] 88.7 fL Normal 81.0-99.0 [facility] Comment on above: Performed By: #### C BC #### [facility] [address] [place] [address] Dr. Troy Jeter MONO # 0.4 103/ul Normal 0.3-0.8 [facility] Comment on above: Performed By: #### C BC #### [facility] [address] [place] [address] Dr. Troy Jeter Monocytes/100 WBC (Bld) 8.6 % Normal 1.7-12.0 [facility] Comment on above: Performed By: #### C BC #### [facility] [address] [place] [address] Dr. Troy Jeter NEUT # 3.2 103/ul Normal 1.4-6.5 [facility] Comment on above: Performed By: #### C BC #### [facility] [address] [place] [address] Dr. Troy Jeter Neutrophils/100 WBC (Bld) 62.1 % Normal 43.0-75.0 [facility] Comment on above: Performed By: #### C BC #### [facility] [address] [place] [address] Dr. Troy Jeter Platelet mean volume (Bld) [Entitic vol] 9.4 fL Critically low 9.5-13.5 [facility] Comment on above: Performed By: #### C BC #### [facility] [address] [place] [address] Dr. Troy Jeter PLT 190 103/ul Normal 150-450 [facility] Comment on above: Performed By: #### C BC #### [facility] [address] [place] [address] Dr. Troy Jeter RBC 4.25 106/ul Normal 4.20-5.40 [facility] Comment on above: Performed By: #### C BC #### [facility] [address] [place] [address] Dr. Troy Jeter WBC 5.1 103/ul Normal 4.0-11.0 [facility] Comment on above: Performed By: #### C BC #### [facility] [address] [place] [address] Dr. Troy Jeter PROF 14(COMP METB)on 023 Albumin [Mass/Vol] 3.4 g/dL Normal 3.4-5.0 [facility] Comment on above: Performed By: #### C BC #### [facility] [address] [place] [address] Dr. Troy Jeter Albumin/Globulin [Mass ratio] 0.9 {ratio} Normal [facility] Comment on above: Performed By: #### C BC #### [facility] [address] [place] [address] Dr. Troy Jeter ALP [Catalytic activity/Vol] 99 U/L Normal 46-116 [facility] Comment on above: Performed By: #### C BC #### [facility] [address] [place] [address] Dr. Troy Jeter ALT [Catalytic activity/Vol] 67 U/L Critically high 14-59 [facility] Comment on above: Performed By: #### C BC #### [facility] [address] [place] [address] Dr. Troy Jeter Anion gap [Moles/Vol] 12.8 mmol/L Normal [facility] Comment on above: Performed By: #### C BC #### [facility] [address] [place] [address] Dr. Troy Jeter AST [Catalytic activity/Vol] 54 U/L Critically high 15-37 [facility] Comment on above: Performed By: #### C BC #### [facility] [address] [place] [address] Dr. Troy Jeter Bilirubin [Mass/Vol] 0.4 mg/dL Normal 0.2-1.0 [facility] Comment on above: Performed By: #### C BC #### [facility] [address] [address] [address] Troy Jeter Calcium [Mass/Vol] 9.3 mg/dL Normal 8.5-10.1 [facility] Comment on above: Performed By: #### C BC #### [facility] [address] [address] [address] Troy Jeter Chloride [Moles/Vol] 106 mmol/L Normal 98-107 [facility] Comment on above: Performed By: #### C BC #### [facility] [address] [address] [address] Troy Jeter CO2 [Moles/Vol] 24.9 mmol/L Normal 21.0-32.0 [facility] Comment on above: Performed By: #### C BC #### [facility] [address] [place] [address] Dr. Troy Jeter Creatinine [Mass/Vol] 0.89 mg/dL Normal 0.55-1.02 [facility] Comment on above: Performed By: #### C BC #### [facility] [address] [place] [address] Dr. Troy Jeter EGFR-AF [facility] >60 Normal >=60 [facility] Comment on above: Performed By: #### C BC #### [facility] [address] [place] [address] Dr. Troy Jteer EGFR-NON AF [facility] [place] >60 Normal >=60 [facility] Comment on above: Performed By: #### C BC #### [facility] [address] [place] [address] Dr. Troy Jeter Globulin (S) [Mass/Vol] 3.7 g/dL Normal [facility] Comment on above: Performed By: #### C BC #### [facility] [address] [place] [address] Dr. Troy Jeter Glucose [Mass/Vol] 125 mg/dL Critically high 74-106 [facility] Comment on above: Performed By: #### C BC #### [facility] [address] [place] [address] Dr. Troy Jeter Potassium [Moles/Vol] 3.7 mmol/L Normal 3.5-5.1 [facility] Comment on above: Performed By: #### C BC #### [facility] [address] [address] [address] Troy Jeter Protein [Mass/Vol] 7.1 g/dL Normal 6.4-8.2 [facility] Comment on above: Performed By: #### C BC #### [facility] [address] [address] [address] Troy Jeter Sodium [Moles/Vol] 140 mmol/L Normal 136-145 [facility] Comment on above: Performed By: #### C BC #### [facility] [address] [address] [address] Troy Jeter Urea nitrogen [Mass/Vol] 15.0 mg/dL Normal 7.0-18.0 [facility] Comment on above: Performed By: #### C BC #### [facility] [address] [address] [address] Troy Jeter Urea nitrogen/Creatinine [Mass ratio] 16.9 mg/mg Normal [facility] Comment on above: Performed By: #### C BC #### [facility] [address] [address] [address] Troy Jeter XR HAND RT MIN [...] JULISSA KAUFMAN Date: 2022-11-05 08:18 Normal [facility] Ambulatory Visit Summaryon 1 2-28-2022 Ambulatory Visit Summary DANIELLA BEJARANO :1960 Visit Date:10/26/2022 Ambulatory Visit Instructions Your Diagnosis Bladder cancer OAB (overactive bladder) History of UTI Vaginal atrophy Tests Performed Urnls Dip Stick Auto w/o Microscopy POC 20005 Your Care Team Attending Physician - AI [...] When: Where: [address] [place] [address] Medications What How Much When Instructions Unchanged [...] Urnls Dip Stick Auto w/o Microscopy POC 47132 (10/26/2022) Bilirubin Urine Dipstick - Negative Blood Urine Dipstick - Negative Glucose Urine Dipstick - Negative Ketones Urine Dipstick - Negative Leukocytes Urine Dipstick - Negative Nitrite Urine Dipstick - Negative Protein Urine Dipstick - Negative Specific [place] Urine Dipstick - 1.020 Urine Appearance Urine [...] Urothelial carcinoma of bladder Vaginal atrophy Normal [facility] Urology Office/Clinic Noteon 10-26-2022 Urology Office/Clinic Note [...] With When Contact Information RUY VALLE, AI Alejandro, URL [address] [place] [address] Additional Instructions: F/U nov 2022 cysto/cyto Patient [...] Daily Protonix 40 mg Tab-DR, Oral, BID [place] BCG Live (for intravesical use), 50 mg, IntraVesical, Once Vesicare 10 mg Tab, 10 mg= 1 tab(s), Oral, Daily, 3 refills Vitamin D, Oral, qWeek Allergies Percocet (Headache) Social History Alcohol - Denies Alcohol Use, 07/07/2021 Tobacco Former smoker, quit more than 30 days ago Tobacco Use:. Never Smokeless Tobacco Use:. Cigarettes, 10/12/2022 (more content not included)... Normal [facility] Comment on above: Result Comment: Elec tronically [...] Urnls Dip Stick Auto w/o Microscopy POC 43008 Your Care Team Attending Physician - Reza [...] AI MITCHELL PA-C Where: [facility] [place] Normal [facility] Patient Educationon 10-19-20 Patient Education Oncology Bladder [...] Follow these instructions at home: ? Take wpts-mjn-vpvoooj and prescription medicines only as told by [...] important. Where to find more information ? [place] [employer]: www.cancer.org ? [place] (NCI): www.cancer.gov Contact a health care provider [...] 10/18/2004 Document Revised: 09/28/2018 Document Reviewed: 09/19/2017 [employer] [facility] Patient Education ? 2019 [employer]. [facility] Urology Office/Clinic Noteon 10-19-2022 Urology Office/Clinic Note [...] Brother. Immun (more content not included)... Normal [facility] Comment on above: Result Comment: Elec tronically Signed By: Dina Cobb MD\.br\Date and Time Signed: 10/19/22 08:20 EST\.br\Electronically Co-Signed By: Shaylee Bermudez\.br\Date and Time Co-Signed: 10/19/22 08:13 EST Consent for Procedure/Surger yon 10-12-2022 Consent for Procedure/Surgery [id number]#1.00C D:127 Normal [facility] Patient Educationon 10-12-20 22 Patient Education Oncology [...] Follow these instructions at home: ? Take zsfx-gxq-zmzwqjb and prescription medicines only as told by [...] important. Where to find more information ? [place] [employer]: www.cancer.org ? [place] (NCI): www.cancer.gov Contact a health care provider [...] 10/18/2004 Document Revised: 09/28/2018 Document Reviewed: 09/19/2017 [employer] [facility] Patient Education ? 2019 [employer]. [facility] Urology Office/Clinic Noteon 10-12-2022 Urology Office/Clinic Note [...] No qualifyi (more content not included)... Normal [facility] Comment on above: Result Comment: Elec tronically Signed By: Dina Cobb MD\.br\Date and Time Signed: 10/12/22 09:01 EST\.br\Electronically Co-Signed By: Paulina Valenzuela\.br\Date and Time Co-Signed: 10/12/22 08:44 EST Pathology Noteon 08-17-2022 Pathology Note [id number]#1.00C D:127 Normal [facility] Operative Reporton Operative Report [id number] D:127 Normal [facility] CYTOLOGYon 08-10-2022 SENT TO REF LAB 08/10/22 [facility] Comment on above: Performed By: #### C YTO #### [facility] [address] [place] [address] Dr. Troy Jeter Lab Reportson 07-29-2022 Lab Reports [id number]#1.00C D:127 Normal [facility] CULTURE URINEon 07-28-2022 CULTURE URINE Culture Observations [...] F Meropenem S F Tetracycline R F [facility] Comment on above: Performed By: #### C YTO #### [facility] [address] [place] [address] Dr. Troy Jeter Lab Reportson 07-27-2022 Lab Reports [id number]#[id number] D:127 [facility] Lab Reports [id number] :127 [facility] C Urineon 07-08-2022 Bacteria identified Cx Nom [...] Locations R1: This test was performed at: [facility], [address] [place] [address], [address] , , Normal [facility] Comment on above: Performed By: #### 2 [id number] ####[facility] [address] [place] [address] Coding Summary.on 07-08-2022 Coding Summary. CD:[id number] Gh0 bWw+PGhlYWQ+BS9USONsZ08 mtRJruZ5AW7lXWH5ULQBRDS YULE5ODP8uoVE2BPxaJ3Jkl iAv QponsTWlEC98VNl5AMD3gEq yYMcsnK0hkHEzH7h6WpMxCM 50zP92SGozEUWbZuU3CpSup jsgbWFy D8scWiKdlJQfBrw+PHRhYmx lIHdpZHRoPScxMDAlJyBzdH idDY8aQo0rOLLeCWVkjCirh HNlOiBj q3suKEBkGQrxCT5iqBuqU0F hxRI6PXSkp4h9Xq44vWE+PH GzELD2pTbxTDytg953SjGsj 6ynPZX5 dPMtXUuuCFI6H10rg3H1KSC xGWQzPEN3wES4iW8uyPdqun xfJ5LjcFSzDkS3YTZ9dMYom Q2qcVsi aazreD9cQug+I11JBU0XNXK FEO2QEhe1M9AuEftziEY+PC 10HLBgYR83lQLvaZCsz3zyh Jv7AuPl VSIeRPY4uZkuZFrbr2HdRHE jF77qjNQpn7P7FFIjtWxcrR PbJiCnyXC1oR0rBDugwbghc 2hvdzsn Llctv7unyn70eH68C73rWOd gRUMgDBN5AZCnCAMljKlpax 0seP7fYh4+HGobf3zzp9wui Wj5QtUl TRJulcAwvJfsVJA0a7BbSu6 5Y6FagBdea6OoYbi1qq24kK Mhw7D7lQL9AFrxXTQxiQ2zP WxlZnQ6 OMDiItRhkB02hLHyQLbvGj8 mmGvlpVqmRS7iJBFmwwmkHF EngU2sPIRxsQEphUekUQ0sZ TBpbjtm b919HsSoMPF9KSRejSOhN3V oxW9aXaFhGOEjICYkS1IwfD MeFWkxV883SLfxNdO9NPVwz fLlN6Wp OTPhpPqhOgA2o1G8Hv9Rf5M zcylsNJN5MLdeQAO1DrI9Fl FcUcR6R5XpHbj1CBKciLraY H3jB9Jr NPVuraqucwkehPM2EEYwUFK gbE30oLFgDXbaHm9ua8E3c4 08FVPoAPBjaC13Pa9smAsoR TBwdCBU mK2rdeblt6iuppbeInVyPFH wLKz2ERp0UOLhcDbdZsVjXJ O2UrC5FRK6dBRniN4ygNnns gxufD8p Oyc+O52cnZ5tOPY4MPB7gct aOMDojrPwMS37UD47B6UfMe wvdGFibGU+PGRpdiBzdHlsZ H9rEhGg b1ocd2OxUYpsX5EpCLUbNKw iNeo7ZGRcUKZ7zFY8tR7tXY UhMKbnc6Y5qAB2I0TpidWya c0xq8ph GIDrQGnvN08gzWEcm8R9DHW ozGS1ICBeoSkcCvJhbI50Lu c+RQVxcDakw9HhKgngr7tfp 2wtpVv0 GdWxIXJhsdUvyTquMYJ7z0M zYx59W39uXUemCSDaXIDpBI RwUAFpsDpjjo4isJ1pIe7+P GNvbCB3 pME2bS8aINGlVrC3PMisR19 9CeTotQXaArgup8tcc3ynbF j4RnSjWHWblpNghOskOLG4d 5LrBl06 S53xYSrmTZKiVJUxZFBdCLT ofMcqhj6gtX8wLf5+PC9jb2 mhvp79qB37tUI+NHVgRHD8h WxlPSdw CXSpdQ5lJXktZxX0KYDiOsV gbT22hVZaJPjkKj8tmVfviE lbRR0iXLRznaaum883XrHyk 2xkIDEw nAIfRLrgNDW1V34nw1I4KIC tMIFcFQR6dAV9gV7heIbsdf ogbGVmdDsgdmVydGljYWwtY FrfL279 IHRvcDsnPlBhdGllbnQgTmF xXMo6Y1TtSal8XUAjtLwcAP 1ucRElXGnjFk3slBgutLltD J2bUZIu njtcy769SpVwp7ocIWLanRW vLMbbUGV4B54wu4U6MUJkIQ MgNLT2hUH8xH0peBtvtkxfw GVmdDsg dlTqjAneQYrbNRgyB023PSU hwJpjQpEibbCpZTOqnRK7OR 34XV46nVIue9V2oEF2W4IoH GRpbmct jvzuoYJ7TOVtUXBwwE68Xf7 gmLzuVv8xFHMjCCN4MLOciS ElW9HmvZ6lAkNoUXHfYLRfE 3RleHQt HRgsL035GVwzMyN6PIZqlhS hF7PsSBBhfVrqBzV2l3N8Ak 6SA0O1UW68TG43oNQgd7V7i KD6X5Cm DJSvuloejgwboKL3OPZqBTP iiJ97Dq7kgEwoNy5rQZDlDT R1PKGboZAtR7RlxS9mAcMkV DAwMDAw M3JfiEEaIYzsF670IGaoRqY 0QDMwjhXaW0MsNCEhoKcrYc Y4o7M6Dq5AQZl3HH83EM07j VBza5G8 mIY4G2XwRKKlvlqvpokveID 2QIJmNOFigN79Qz3loMuiRu 8xTHKwCFO8FAOkzIWiH6Yin M9hIzKn CXReMNSkP9KzaAJfAVszW91 3TSffQjC4BCWswmCuI8BtFL WygYwgIdH9a0O0Eq2EEJKtB H69KJU9 nLM2FZ70OD94E3LeTajjgZS ibGU+PHRhYmxlIHdpZHRoPS xmQWAmQbIsgAixZW6rEv0sE GVyLWNv gBlleOKmRuMjg8ffXSKrHBl bDR9oxQiaK9TbfDU0LYTyk1 r7Ho65F78iI2CwbZA+PGNvb LC4fJB1 pS9nEwXhGuP4YJsvM873TsI sfOLoNlvup3ofk7zdbHr1Mf S2OWBhinFzuMzdGLY4u3CqM r51L08s IHdpZHRoPSIxNSUiIHZhbGl iim8xbJ2dLr4+YFRsyRI6nQ J4xZ6iGwOgLbJ7UUxoU625E nRvcCIv Vmfxi4awa8rffXc4YzXtLDG qdoGonYvbYQR5s6EhLr89J7 RmnPlmw7XxQpo5nx12rJDcr 5N8ySF8 H5TsGYFdmupykQMyjZzrTV2 mDCNbftqjHNJroK7jNDBgI4 w0AsVyNjQ4VYevM4MfwgO7J DEwcHQg RZzkRGW5K93pa4T1GFJlCYY qYRM8sYU8mI8edKouolcnaN VmdDsgdmVydGljYWwtYWxpZ 246IHRv cKxcFDDtyM7bOUXheCFhpAi aPK6kDHHzzgmkGz6XIDcREw pwSXJFDqzKMdPYOS06HQ62n GFvs3S2 hES7W5LjUYYalqbfhkabkIO 9IOXlZNKjgB26hNKySShxPk 6oy6L2r188IMRxGOGgmM88Y n0tnHtl ETUbsNGWrO6rqqbyo9rgsfs aDfTlLRYsUFc9RBt5YEPggS shQuNtXGE6MaA1AOH6iKJpt U7vpRzv czkniE0qTij+MDgvMjIvMTk 1ODwvdGQ+MZVlCGD8nDsiGU ggJXAcvX2iJHJfQ3e0TuBaI xL3TKya K7IbVZEbwbmiBr64tA8fPlF xNwM2XHbiH2OdxiN8OCCjoP KkOCmwLQZ4Q77sf5J0PZYgC DAwMDA7 jJJ2wV8nmEqbxrwcgKWnwKa jwwAuuWacGEnpEKpxB669WL WdbAlzYjV9KXzyRAAfCW24N J08nCPk a8H3zBQ7D8FxFKHkbboecbz ttAJ6LMWnBEZanG98sXPrNB ikAu3vu8C1e563MVCyZHBin F07Tu7d sAcgOCIhxPBEbG4qokxlc2u shbixXxKwIHYsIRy6ZDv1PN SbyVkoDyXyFGL9EsP4PDV2e ZAycA9v zKoqrbsefF8iCcq+RmVtYWx oHC98UN06bCXsd5L8vNA2C3 YbEPPatsdxtuydlLK5LRQxI DUwaW47 tAHhGPorOt5ph2L7v087PVP qQPBydD52Tm6quQapMKWlgB KUhR6wcqguc6xpqdaxAmOsA DAwMDt0 YZf4PYAdpMwiYgPdQOU9XyF 9IRR2kOFedA8unEilbkkpsV 9wOyc+MOPjDPVav3Oxm7IaF H80QW42 Z4OiBvbpkLFsdIB+PHRhYmx lIHdpZHRoPScxMDAlJyBzdH wjAU6sEc8mGURnTKRszYavx HNlOiBj u7zmIYFrIBqkRA0zjQutE2D hsZQ7CLVfu1e3Ae00G82wT7 JvdXA+ZEUilPF1rBJ2tM1xY zAlIiB2 RKsqF376TaSoeMYgWyirh3c ye6gxpPg2GiNfUXZlyaOveZ iyLLL2z6KcCv15N55oHQojP HRoPSIy CHUaIZTxfNpbey9ctV7fMy7 +FZZgzVE4lXY0tN6uXlTdZc V1ZMmdM946JeTzzZGlUtquU 56uY2Bx dXA+AFWiLrl7MCXeqTefWE2 bhWXlVAvqAy6gMPJ0MbIgPq CvTFekY8HbAYWibfhcvzaqu KQ2KIYp XUPevN54Pg1puYzoCk6sSPG hTQH6QUTzhPQiL7WqzS6wVj SyIZMwUAGsC4EbyDHtTWplC 246IGxl ZzA9YLZdytCwZ0GdAUNmmJd pJhI7y1F6Mk5LdVhuxIGkCN 8hDwDkULd7O6VoYyl7GHXur MpeAY3k jMVyUUumUp0smXvhqLceUY4 rWLVrydhqq175AlOrj0xeYY NiyMVuXJpvVVI8T44ki5N8D CMwMDAw BUS6xXH4iQ9wlTipxyjbxYT mdDsgdmVydGljYWwtYWxpZ2 93LOHgqKntSgZHPwm6D6UmP iv5YZMs fCtnOX8goONgOBesZr2ttDk bvOfuQI4iLSRuganwf637Mv Esx3otEYLplPWtRUvhRFR5X 52qb2A8 SIVjUIEaBUQ2iUV2hY2axBc nbjogbGVmdDsgdmVydGljYW ymQBnpY408QUEqwRipHj5FK ec6J7Sr Kfd6VWWsxFcyVP6vfFNbWXq xLu5tgPpbiFqwDQ0bRLGsil cmd841EeYwg3hnXNNyzBOwV GltZXM7 R20ej7O9GYKoXQCrXVN3vRV 9oZ2nyEnzcxpkvQFoiZthrw HheLjtQItpCAppC565AZFuz DsnPlBh eWVyOjwvdGQ+KF45ku05F5E aKcluGad5PGHbUYX4mNZ9kB 6pFDYkLDocw4K4fVP4H2Sso qHqrj7r b2xs (more content not included)... Normal [facility] Ambulatory Visit Summaryon 0 07-06-2022 Ambulatory Visit Summary DANIELLA BEJARANO :1960 Visit Date:07/06/2022 Ambulatory Visit Instructions Your Diagnosis Bladder cancer OAB (overactive bladder) History of UTI Vaginal atrophy Tests Performed Urnls Dip Stick Auto w/o Microscopy POC 70904 Your Care Team Attending Physician - Reza [...] Urnls Dip Stick Auto w/o Microscopy POC 74137 (07/06/2022) Bilirubin Urine Dipstick - Negative Blood Urine Dipstick - Trace-intact Glucose Urine Dipstick - Negative Ketones Urine Dipstick - Negative Leukocytes Urine Dipstick - 2+ Moderate Nitrite Urine Dipstick - Positive Protein Urine Dipstick - Negative Specific [place] Urine Dipstick - 1.025 Urine Appearance Urine Dipstick - Cloudy Urine Color Urine Dipstick - Yellow Urobilinogen Urine Dipstick - Normal 0.2-1 EU/dl pH Urine Dipstick - 5.5 Medications and Immunizations Administered Given [place] BCG Live (for intravesical use), 50 mg, [...] paint. ? (more content not included)... Normal [facility] Patient Educationon 07-06-20 Patient Education Oncology Bladder [...] Follow these instructions at home: ? Take fneq-kbk-oeriumn and prescription medicines only as told by [...] important. Where to find more information ? [place] [employer]: www.cancer.org ? [place] (NCI): www.cancer.gov Contact a health care provider [...] 10/18/2004 Document Revised: 09/28/2018 Document Reviewed: 09/19/2017 [employer] [facility] Patient Education ? 2019 [employer]. Normal [facility] Urology Office/Clinic Noteon 07-06-2022 Urology Office/Clinic Note [...] Daily Protonix 40 mg Tab-DR, Oral, BID [place] BCG Live (for intravesical use), 50 mg, IntraVesical, Once Vesicare 10 mg Tab, 10 mg= 1 tab(s), Oral, Daily, 3 refills Vitamin D, Oral, qWeek Allergies Percocet (Headache) Social History Alcohol - Denies Alcohol Use, 07/07/2021 Tobacco Former smoker, quit more than 30 days ago To (more content not included)... Normal [facility] Comment on above: Result Comment: Elec tronically Signed By: Reza JAMES, Dina Oconnell\.br\Date and Time Signed: 07/06/22 11:31 EDT\.br\Electronically Co-Signed By: Pratibha Rodriguez\.br\Date and Time Co-Signed: 07/06/22 10:33 EDT\.br\Electronically Co-Signed By: Pratibha Rodriguez\.br\Date and Time Co-Signed: 07/06/22 10:34 EDT BUNon 07-01-2022 Urea nitrogen [Mass/Vol] 14.0 mg/dL Normal 7.0-18.0 [facility] Comment on above: Performed By: #### C YTO #### [facility] [address] [place] [address] Dr. Troy Jeter CREATININEon 07-01-2022 Creatinine [Mass/Vol] 1.04 mg/dL Critically high 0.55-1.02 [facility] Comment on above: Performed By: #### C YTO #### [facility] [address] [address] [address] Troy Jeter EGFR-AF [facility] [place] >60 Normal >=60 [facility] Comment on above: Performed By: #### C YTO #### [facility] [address] [place] [address] Dr. Troy Jeter EGFR-NON AF [facility] [place] 53 mL/min/1.73m2 Critically low >=60 [facility] Comment on above: Performed By: #### C YTO #### [facility] [address] [place] [address] ABD/PELV WO W [...] by: SPARKLE RODRIGUEZ Date: 2022-07-01 11:40 Normal [facility] Ambulatory Visit Summaryon 0 06-29-2022 Ambulatory Visit Summary DANIELLA BEJARANO :1960 Visit Date:06/29/2022 Ambulatory Visit Instructions Your Diagnosis Bladder cancer OAB (overactive bladder) History of UTI Vaginal atrophy Tests Performed Urnls Dip Stick Auto w/o Microscopy POC 18471 Your Care Team Attending Physician - Reza [...] JAMES, Dina Oconnell Where: [facility] Patient Educationon 06-29-20 Patient Education Oncology Bladder [...] Follow these instructions at home: ? Take [id number]-pde-[id number] and prescription medicines only as told by [...] important. Where to find more information ? [place] [employer]: www.cancer.org ? [employer] [place] (NCI): www.cancer.gov Contact a health care provider [...] 10/18/2004 Document Revised: 09/28/2018 Document Reviewed: 09/19/2017 [employer] Patient Education ? 2019 [employer]. [facility] Urology Office/Clinic Noteon 06-29-2022 Urology Office/Clinic Note [...] Immunizations Vacc (more content not included)... Normal [facility] Comment on above: Result Comment: Elec tronically [...] by: FRANNY ZEE Date: 2022-05-26 13:26 Normal [facility] PROTIMEon 05-04-2022 INR Coag (PPP) [Relative time] 1.00 {INR} Normal [facility] Comment on above: Performed By: #### C YTO #### [facility] [address] [address] [address] Troy Jeter INR GUIDELINES SEE BELOW Normal [facility] Comment on above: Result Comment: LORENA RED INR: 2.0 - 3.0 CONDITIONS NOT LISTED BELOW 2.5 - 3.5 FOR PROSTHETIC HEART VALVE REPLACEMENT 2.5 - 3.5 RECURRENT THROMBOSIS Performed By: #### C YTO #### [facility] [address] [place] [address] Dr. Troy Jeter PT Coag (PPP) [Time] 10.8 s Normal 9.0-11.6 [facility] Comment on above: Performed By: #### C YTO #### [facility] [address] [address] [address] Troy Jeter PTTon 05-04-2022 aPTT Coag (Bld) [Time] 24.5 s Normal 22.3-36.2 [facility] Comment on above: Performed By: #### C YTO #### [facility] [address] [place] [address] Dr. Troy Jeter CYTOLOGYon 04-27-2022 SENT TO REF LAB 04/28/22 Normal [facility] Comment on above: Performed By: #### C YTO #### [facility] [address] [place] [address] Dr. Troy Jeter MG MAMM SCREEN LT 3D CADon 0 04-11-2022 MG MAMM SCREEN LT 3D CAD Patient: DANIELLA BEJARANO Exam Date: 04/11/2022 : 1960 Gender:F Ordering : DR BAYRON SINGH . Admission #: [id number] Family : Order #: [id number] CLICK HERE TO VIEW EXAM RADIOLOGY REPORT [...] breast cancer at age 68. LOCATION: [facility] BREAST COMPOSITION: Scattered areas fibroglandular density. FINDINGS: DIAGNOSTIC CATEGORY 1--NEGATIVE. LEFT BREAST: No significant suspicious finding. No significant change has occurred. RECOMMENDATIONS: ROUTINE MAMMOGRAM AND CLINICAL EVALUATION IN 12 MONTHS. PLEASE NOTE: A NORMAL MAMMOGRAM DOES NOT EXCLUDE THE POSSIBILITY OF BREAST CANCER. A CLINICALLY SUSPICIOUS PALPABLE LUMP SHOULD BE BIOPSIED. Dictated by: Long Valles M.D. on 04/11/2022 at 13:42 Approved by: Lnog Valles M.D. on 04/11/2022 at 13:44 Normal [facility] CBC AUTO DIFFon 03-31-2022 BASO # 0.0 103/ul Normal 0.0-0.1 [facility] Comment on above: Performed By: #### C BC #### [facility] [address] [address] [address] Troy Jeter Basophils/100 WBC (Bld) 0.0 % Critically low 0.2-2.0 [facility] Comment on above: Performed By: #### C BC #### [facility] [address] [address] [address] Troy Jeter EO # 0.1 103/ul Normal 0.0-0.7 [facility] Comment on above: Performed By: #### C BC #### [facility] [address] [address] [address] Troy Jeter Eosinophils/100 WBC (Bld) 2.1 % Normal 0.9-7.0 [facility] Comment on above: Performed By: #### C BC #### [facility] [address] [place] [address] Dr. Troy Jeter Erythrocyte distribution width (RBC) [Ratio] 14.3 % Normal 11.0-15.0 [facility] Comment on above: Performed By: #### C BC #### [facility] [address] [place] [address] Dr. Troy Jeter Hematocrit (Bld) [Volume fraction] 31.8 % Critically low 36.0-48.0 [facility] Comment on above: Performed By: #### C BC #### [facility] [address] [place] [address] Dr. Troy Jeter Hemoglobin (Bld) [Mass/Vol] 9.7 g/dL Critically low 12.0-16.0 [facility] Comment on above: Performed By: #### C BC #### [facility] [address] [place] [address] Dr. Troy Jeter IG # 0.01 10e3/ul Normal 0.00-0.03 [facility] Comment on above: Performed By: #### C BC #### [facility] [address] [place] [address] Dr. Troy Jeter IG % 0.3 % Normal 0.0-0.5 [facility] Comment on above: Performed By: #### C BC #### [facility] [address] [place] [address] Dr. Troy Jeter LYMPH # 0.7 103/ul Critically low 1.2-3.8 [facility] Comment on above: Performed By: #### C BC #### [facility] [address] [place] [address] Dr. Troy Jeter Lymphocytes/100 WBC (Bld) 25.3 % Normal 20.5-60.0 [facility] Comment on above: Performed By: #### C BC #### [facility] [address] [place] [address] Dr. Troy Jeter MANUAL DIFF REQ NO Normal [facility] Comment on above: Performed By: #### C BC #### [facility] [address] [place] [address] Dr. Troy Jeter MCH (RBC) [Entitic mass] 26.9 pg Normal 26.7-34.0 [facility] Comment on above: Performed By: #### C BC #### [facility] [address] [place] [address] Dr. Troy Jeter MCHC (RBC) [Mass/Vol] 30.5 g/dL Normal 29.9-35.2 [facility] Comment on above: Performed By: #### C BC #### [facility] [address] [place] [address] Dr. Troy Jeter MCV (RBC) [Entitic vol] 88.1 fL Normal 81.0-99.0 [facility] Comment on above: Performed By: #### C BC #### [facility] [address] [place] [address] Dr. Troy Jeter MONO # 0.4 103/ul Normal 0.3-0.8 [facility] Comment on above: Performed By: #### C BC #### [facility] [address] [place] [address] Dr. Troy Jeter Monocytes/100 WBC (Bld) 14.2 % Critically high 1.7-12.0 [facility] Comment on above: Performed By: #### C BC #### [facility] [address] [place] [address] Dr. Troy Jeter NEUT # 1.7 103/ul Normal 1.4-6.5 [facility] Comment on above: Performed By: #### C BC #### [facility] [address] [place] [address] Dr. Troy Jeter Neutrophils/100 WBC (Bld) 58.1 % Normal 43.0-75.0 [facility] Comment on above: Performed By: #### C BC #### [facility] [address] [place] [address] Dr. Troy Jeter Platelet mean volume (Bld) [Entitic vol] 9.3 fL Critically low 9.5-13.5 [facility] Comment on above: Performed By: #### C BC #### [facility] [address] [place] [address] Dr. Troy Jeter PLT 134 103/ul Critically low 150-450 [facility] Comment on above: Performed By: #### C BC #### [facility] [address] [address] [address] Troy Jeter RBC 3.61 106/ul Critically low 4.20-5.40 [facility] Comment on above: Performed By: #### C BC #### [facility] [address] [address] [address] Troy Jeter WBC 2.9 103/ul Critically low 4.0-11.0 [facility] Comment on above: Performed By: #### C BC #### [facility] [address] [place] [address] Dr. Troy Jeter PROF 14(COMP METB)on 022 Albumin [Mass/Vol] 2.7 g/dL Critically low 3.4-5.0 [facility] Comment on above: Performed By: #### C MP #### [facility] [address] [place] [address] Dr. Troy Jeter Albumin/Globulin [Mass ratio] 0.9 {ratio} Normal [facility] Comment on above: Performed By: #### C MP #### [facility] [address] [place] [address] Dr. Troy Jeter ALP [Catalytic activity/Vol] 51 U/L Normal 46-116 [facility] Comment on above: Performed By: #### C MP #### [facility] [address] [place] [address] Dr. Troy Jeter ALT [Catalytic activity/Vol] 57 U/L Normal 14-59 [facility] Comment on above: Performed By: #### C MP #### [facility] [address] [place] [address] Dr. Troy Jeter Anion gap [Moles/Vol] 16.1 mmol/L Normal [facility] Comment on above: Performed By: #### C MP #### [facility] [address] [place] [address] Dr. Troy Jeter AST [Catalytic activity/Vol] 69 U/L Critically high 15-37 [facility] Comment on above: Performed By: #### C MP #### [facility] [address] [place] [address] Dr. Troy Jeter Bilirubin [Mass/Vol] 0.2 mg/dL Normal 0.2-1.0 [facility] Comment on above: Performed By: #### C MP #### [facility] [address] [place] [address] Dr. Troy Jeter Calcium [Mass/Vol] 8.1 mg/dL Critically low 8.5-10.1 [facility] Comment on above: Performed By: #### C MP #### [facility] [address] [place] [address] Dr. Troy Jeter Chloride [Moles/Vol] 112 mmol/L Critically high 98-107 [facility] Comment on above: Performed By: #### C MP #### [facility] [address] [place] [address] Dr. Troy Jeter CO2 [Moles/Vol] 18.3 mmol/L Critically low 21.0-32.0 [facility] Comment on above: Performed By: #### C MP #### [facility] [address] [place] [address] Dr. Troy Jeter Creatinine [Mass/Vol] 0.89 mg/dL Normal 0.55-1.02 [facility] Comment on above: Performed By: #### C MP #### [facility] [address] [place] [address] Dr. Troy Jeter EGFR-AF [facility] >60 Normal >=60 [facility] Comment on above: Performed By: #### C MP #### [facility] [address] [place] [address] Dr. Troy Jeter EGFR-NON AF [facility] >60 Normal >=60 [facility] Comment on above: Performed By: #### C MP #### [facility] [address] [place] [address] Dr. Troy Jeter Globulin (S) [Mass/Vol] 3.0 g/dL Normal [facility] Comment on above: Performed By: #### C MP #### [facility] [address] [address] [address] Troy Jeter Glucose [Mass/Vol] 80 mg/dL Normal 74-106 [facility] Comment on above: Performed By: #### C MP #### [facility] [address] [address] [address] Troy Jeter Potassium [Moles/Vol] 3.4 mmol/L Critically low 3.5-5.1 [facility] Comment on above: Performed By: #### C MP #### [facility] [address] [address] [address] Troy Jeter Protein [Mass/Vol] 5.7 g/dL Critically low 6.4-8.2 [facility] Comment on above: Performed By: #### C MP #### [facility] [address] [address] [address] Troy Jeter Sodium [Moles/Vol] 143 mmol/L Normal 136-145 [facility] Comment on above: Performed By: #### C MP #### [facility] [address] [place] [address] Dr. Troy Jeter Urea nitrogen [Mass/Vol] 11.0 mg/dL Normal 7.0-18.0 [facility] Comment on above: Performed By: #### C MP #### [facility] [address] [address] [address] Troy Jeter Urea nitrogen/Creatinine [Mass ratio] 12.4 mg/mg Normal [facility] Comment on above: Performed By: #### C MP #### [facility] [address] [address] [address] Troy Jeter CBC AUTO DIFFon 03-30-2022 BASO # 0.0 103/ul Normal 0.0-0.1 [facility] Comment on above: Performed By: #### C BC #### [facility] [address] [address] [address] Troy Jeter Basophils/100 WBC (Bld) 0.3 % Normal 0.2-2.0 [facility] Comment on above: Performed By: #### C BC #### [facility] [address] [address] [address] Troy Jeter EO # 0.0 103/ul Normal 0.0-0.7 [facility] Comment on above: Performed By: #### C BC #### [facility] [address] [place] [address] Dr. Troy Jeter Eosinophils/100 WBC (Bld) 1.2 % Normal 0.9-7.0 [facility] Comment on above: Performed By: #### C BC #### [facility] [address] [place] [address] Dr. Tryo Jeter Erythrocyte distribution width (RBC) [Ratio] 14.1 % Normal 11.0-15.0 [facility] Comment on above: Performed By: #### C BC #### [facility] [address] [place] [address] Dr. Troy Jeter Hematocrit (Bld) [Volume fraction] 32.5 % Critically low 36.0-48.0 [facility] Comment on above: Performed By: #### C BC #### [facility] [address] [place] [address] Dr. Troy Jeter Hemoglobin (Bld) [Mass/Vol] 9.8 g/dL Critically low 12.0-16.0 [facility] Comment on above: Performed By: #### C BC #### [facility] [address] [place] [address] Dr. Troy Jeter IG # 0.01 10e3/ul Normal 0.00-0.03 [facility] Comment on above: Performed By: #### C BC #### [facility] [address] [place] [address] Dr. Troy Jeter IG % 0.3 % Normal 0.0-0.5 [facility] Comment on above: Performed By: #### C BC #### [facility] [address] [place] [address] Dr. Troy Jeter LYMPH # 0.6 103/ul Critically low 1.2-3.8 [facility] Comment on above: Performed By: #### C BC #### [facility] [address] [place] [address] Dr. Troy Jeter Lymphocytes/100 WBC (Bld) 18.4 % Critically low 20.5-60.0 [facility] Comment on above: Performed By: #### C BC #### [facility] [address] [place] [address] Dr. Troy Jeter MANUAL DIFF REQ NO Normal [facility] Comment on above: Performed By: #### C BC #### [facility] [address] [place] [address] Dr. Troy Jeter MCH (RBC) [Entitic mass] 27.0 pg Normal 26.7-34.0 [facility] Comment on above: Performed By: #### C BC #### [facility] [address] [place] [address] Dr. Troy Jeter MCHC (RBC) [Mass/Vol] 30.2 g/dL Normal 29.9-35.2 [facility] Comment on above: Performed By: #### C BC #### [facility] [address] [place] [address] Dr. Troy Jeter MCV (RBC) [Entitic vol] 89.5 fL Normal 81.0-99.0 [facility] Comment on above: Performed By: #### C BC #### [facility] [address] [place] [address] Dr. Troy Jeter MONO # 0.4 103/ul Normal 0.3-0.8 [facility] Comment on above: Performed By: #### C BC #### [facility] [address] [place] [address] Dr. Troy Jeter Monocytes/100 WBC (Bld) 12.7 % Critically high 1.7-12.0 [facility] Comment on above: Performed By: #### C BC #### [facility] [address] [place] [address] Dr. Troy Jeter NEUT # 2.2 103/ul Normal 1.4-6.5 [facility] Comment on above: Performed By: #### C BC #### [facility] [address] [address] [address] Troy Jeter Neutrophils/100 WBC (Bld) 67.1 % Normal 43.0-75.0 [facility] Comment on above: Performed By: #### C BC #### [facility] [address] [address] [address] Troy Jeter Platelet mean volume (Bld) [Entitic vol] 9.7 fL Normal 9.5-13.5 [facility] Comment on above: Performed By: #### C BC #### [facility] [address] [address] [address] Troy Jeter PLT 140 103/ul Critically low 150-450 [facility] Comment on above: Performed By: #### C BC #### [facility] [address] [address] [address] Troy Jeter RBC 3.63 106/ul Critically low 4.20-5.40 [facility] Comment on above: Performed By: #### C BC #### [facility] [address] [address] [address] Troy Jeter WBC 3.3 103/ul Critically low 4.0-11.0 [facility] Comment on above: Performed By: #### C BC #### [facility] [address] [address] [address] Troy Jeter PROF 14(COMP METB)on 022 Albumin [Mass/Vol] 2.8 g/dL Critically low 3.4-5.0 [facility] Comment on above: Performed By: #### C BC #### [facility] [address] [address] [address] Tryo Jeter Albumin/Globulin [Mass ratio] 0.9 {ratio} Normal [facility] Comment on above: Performed By: #### C BC #### [facility] [address] [address] [address] Troy Jeter ALP [Catalytic activity/Vol] 50 U/L Normal 46-116 [facility] Comment on above: Performed By: #### C BC #### [facility] [address] [address] [address] Troy Jeter ALT [Catalytic activity/Vol] 58 U/L Normal 14-59 [facility] Comment on above: Performed By: #### C BC #### [facility] [address] [address] [address] Troy Jeter Anion gap [Moles/Vol] 17.3 mmol/L Normal [facility] Comment on above: Performed By: #### C BC #### [facility] [address] [address] [address] Troy Jeter AST [Catalytic activity/Vol] 78 U/L Critically high 15-37 [facility] Comment on above: Performed By: #### C BC #### [facility] [address] [place] [address] Dr. Troy Jeter Bilirubin [Mass/Vol] 0.2 mg/dL Normal 0.2-1.0 [facility] Comment on above: Performed By: #### C BC #### [facility] [address] [place] [address] Dr. Troy Jeter Calcium [Mass/Vol] 8.0 mg/dL Critically low 8.5-10.1 [facility] Comment on above: Performed By: #### C BC #### [facility] [address] [place] [address] Dr. Troy Jeter Chloride [Moles/Vol] 112 mmol/L Critically high 98-107 [facility] Comment on above: Performed By: #### C BC #### [facility] [address] [place] [address] Dr. Troy Jeter CO2 [Moles/Vol] 17.0 mmol/L Critically low 21.0-32.0 [facility] Comment on above: Performed By: #### C BC #### [facility] [address] [place] [address] Dr. Troy Jeter Creatinine [Mass/Vol] 0.93 mg/dL Normal 0.55-1.02 [facility] Comment on above: Performed By: #### C BC #### [facility] [address] [address] [address] Troy Jeter EGFR-AF [facility] >60 Normal >=60 [facility] Comment on above: Performed By: #### C BC #### [facility] [address] [address] [address] Troy Jeter EGFR-NON AF [facility] >60 Normal >=60 [facility] Comment on above: Performed By: #### C BC #### [facility] [address] [address] [address] Troy Jeter Globulin (S) [Mass/Vol] 3.1 g/dL Normal [facility] Comment on above: Performed By: #### C BC #### [facility] [address] [place] [address] Dr. Troy Jeter Glucose [Mass/Vol] 77 mg/dL Normal 74-106 [facility] Comment on above: Performed By: #### C BC #### [facility] [address] [place] [address] Dr. Troy Jeter Potassium [Moles/Vol] 3.3 mmol/L Critically low 3.5-5.1 [facility] Comment on above: Performed By: #### C BC #### [facility] [address] [place] [address] Dr. Troy Jeter Protein [Mass/Vol] 5.9 g/dL Critically low 6.4-8.2 [facility] Comment on above: Performed By: #### C BC #### [facility] [address] [place] [address] Dr. Troy Jeter Sodium [Moles/Vol] 143 mmol/L Normal 136-145 [facility] Comment on above: Performed By: #### C BC #### [facility] [address] [place] [address] Dr. Troy Jeter Urea nitrogen [Mass/Vol] 12.0 mg/dL Normal 7.0-18.0 [facility] Comment on above: Performed By: #### C BC #### [facility] [address] [place] [address] Dr. Troy Jeter Urea nitrogen/Creatinine [Mass ratio] 12.9 mg/mg Normal [facility] Comment on above: Performed By: #### C BC #### [facility] [address] [place] [address] Dr. Troy Jeter CBC AUTO DIFFon 03-29-2022 BASO # 0.0 103/ul Normal 0.0-0.1 [facility] Comment on above: Performed By: #### C YTO #### [facility] [address] [place] [address] Dr. Troy Jeter Basophils/100 WBC (Bld) 0.2 % Normal 0.2-2.0 [facility] Comment on above: Performed By: #### C YTO #### [facility] [address] [place] [address] Dr. Troy Jeter EO # 0.0 103/ul Normal 0.0-0.7 [facility] Comment on above: Performed By: #### C YTO #### [facility] [address] [place] [address] Dr. Troy Jeter Eosinophils/100 WBC (Bld) 0.2 % Critically low 0.9-7.0 [facility] Comment on above: Performed By: #### C YTO #### [facility] [address] [place] [address] Dr. Troy Jeter Erythrocyte distribution width (RBC) [Ratio] 14.0 % Normal 11.0-15.0 [facility] Comment on above: Performed By: #### C YTO #### [facility] [address] [place] [address] Dr. Troy Jeter Hematocrit (Bld) [Volume fraction] 35.4 % Critically low 36.0-48.0 [facility] Comment on above: Performed By: #### C YTO #### [facility] [address] [place] [address] Dr. Troy Jeter Hemoglobin (Bld) [Mass/Vol] 10.9 g/dL Critically low 12.0-16.0 [facility] Comment on above: Performed By: #### C YTO #### [facility] [address] [place] [address] Dr. Troy Jeter IG # 0.03 10e3/ul Normal 0.00-0.03 [facility] Comment on above: Performed By: #### C YTO #### [facility] [address] [place] [address] Dr. Troy Jeter IG % 0.5 % Normal 0.0-0.5 [facility] Comment on above: Performed By: #### C YTO #### [facility] [address] [place] [address] Dr. Troy Jeter LYMPH # 0.3 103/ul Critically low 1.2-3.8 [facility] Comment on above: Performed By: #### C YTO #### [facility] [address] [place] [address] Dr. Troy Jeter Lymphocytes/100 WBC (Bld) 5.8 % Critically low 20.5-60.0 [facility] Comment on above: Performed By: #### C YTO #### [facility] [address] [place] [address] Dr. Troy Jeter MANUAL DIFF REQ NO Normal [facility] Comment on above: Performed By: #### C YTO #### [facility] [address] [place] [address] Dr. Troy Jeter MCH (RBC) [Entitic mass] 27.3 pg Normal 26.7-34.0 [facility] Comment on above: Performed By: #### C YTO #### [facility] [address] [place] [address] Dr. Troy Jeter MCHC (RBC) [Mass/Vol] 30.8 g/dL Normal 29.9-35.2 [facility] Comment on above: Performed By: #### C YTO #### [facility] [address] [place] [address] Dr. Troy Jeter MCV (RBC) [Entitic vol] 88.7 fL Normal 81.0-99.0 [facility] Comment on above: Performed By: #### C YTO #### [facility] [address] [place] [address] Dr. Troy Jeter MONO # 0.3 103/ul Normal 0.3-0.8 [facility] Comment on above: Performed By: #### C YTO #### [facility] [address] [place] [address] Dr. Troy Jeter Monocytes/100 WBC (Bld) 6.2 % Normal 1.7-12.0 [facility] Comment on above: Performed By: #### C YTO #### [facility] [address] [place] [address] Dr. Troy Jeter NEUT # 4.8 103/ul Normal 1.4-6.5 [facility] Comment on above: Performed By: #### C YTO #### [facility] [address] [place] [address] Dr. Troy Jeter Neutrophils/100 WBC (Bld) 87.1 % Critically high 43.0-75.0 [facility] Comment on above: Performed By: #### C YTO #### [facility] [address] [place] [address] Dr. Troy Jeter Platelet mean volume (Bld) [Entitic vol] 9.6 fL Normal 9.5-13.5 [facility] Comment on above: Performed By: #### C YTO #### [facility] [address] [place] [address] Dr. Troy Jeter PLT 176 103/ul Normal 150-450 [facility] Comment on above: Performed By: #### C YTO #### [facility] [address] [place] [address] Dr. Troy Jeter RBC 3.99 106/ul Critically low 4.20-5.40 [facility] Comment on above: Performed By: #### C YTO #### [facility] [address] [place] [address] Dr. Troy Jeter WBC 5.5 103/ul Normal 4.0-11.0 [facility] Comment on above: Performed By: #### C YTO #### [facility] [address] [place] [address] Dr. Troy Jeter PROF 14(COMP METB)on 022 Albumin [Mass/Vol] 3.1 g/dL Critically low 3.4-5.0 [facility] Comment on above: Performed By: #### C YTO #### [facility] [address] [place] [address] Dr. Troy Jeter Albumin/Globulin [Mass ratio] 0.9 {ratio} Normal [facility] Comment on above: Performed By: #### C YTO #### [facility] [address] [place] [address] Dr. Troy Jeter ALP [Catalytic activity/Vol] 58 U/L Normal 46-116 [facility] Comment on above: Performed By: #### C YTO #### [facility] [address] [place] [address] Dr. Troy Jeter ALT [Catalytic activity/Vol] 49 U/L Normal 14-59 [facility] Comment on above: Performed By: #### C YTO #### [facility] [address] [place] [address] Dr. Troy Jeter Anion gap [Moles/Vol] 15.7 mmol/L Normal [facility] Comment on above: Performed By: #### C YTO #### [facility] [address] [place] [address] Dr. Troy Jeter AST [Catalytic activity/Vol] 59 U/L Critically high 15-37 [facility] Comment on above: Performed By: #### C YTO #### [facility] [address] [place] [address] Dr. Troy Jeter Bilirubin [Mass/Vol] 0.3 mg/dL Normal 0.2-1.0 [facility] Comment on above: Performed By: #### C YTO #### [facility] [address] [place] [address] Dr. Troy Jeter Calcium [Mass/Vol] 8.1 mg/dL Critically low 8.5-10.1 [facility] Comment on above: Performed By: #### C YTO #### [facility] [address] [place] [address] Dr. Troy Jeter Chloride [Moles/Vol] 110 mmol/L Critically high 98-107 [facility] Comment on above: Performed By: #### C YTO #### [facility] [address] [place] [address] Dr. Troy Jeter CO2 [Moles/Vol] 20.8 mmol/L Critically low 21.0-32.0 [facility] Comment on above: Performed By: #### C YTO #### [facility] [address] [address] [address] Troy Jeter Creatinine [Mass/Vol] 0.94 mg/dL Normal 0.55-1.02 [facility] Comment on above: Performed By: #### C YTO #### [facility] [address] [place] [address] Dr. Troy Jeter EGFR-AF [facility] >60 Normal >=60 [facility] Comment on above: Performed By: #### C YTO #### [facility] [address] [place] [address] Dr. Troy Jeter EGFR-NON AF [facility] 60 mL/min/1.73m2 Normal >=60 [facility] Comment on above: Performed By: #### C YTO #### [facility] [address] [place] [address] Dr. Troy Jeter Globulin (S) [Mass/Vol] 3.4 g/dL Normal [facility] Comment on above: Performed By: #### C YTO #### [facility] [address] [place] [address] Dr. Troy Jeter Glucose [Mass/Vol] 95 mg/dL Normal 74-106 [facility] Comment on above: Performed By: #### C YTO #### [facility] [address] [address] [address] Troy Jeter Potassium [Moles/Vol] 3.5 mmol/L Normal 3.5-5.1 [facility] Comment on above: Performed By: #### C YTO #### [facility] [address] [place] [address] Dr. Troy Jeter Protein [Mass/Vol] 6.5 g/dL Normal 6.4-8.2 [facility] Comment on above: Performed By: #### C YTO #### [facility] [address] [place] [address] Dr. Troy Jeter Sodium [Moles/Vol] 143 mmol/L Normal 136-145 [facility] Comment on above: Performed By: #### C YTO #### [facility] [address] [place] [address] Dr. Troy Jeter Urea nitrogen [Mass/Vol] 18.0 mg/dL Normal 7.0-18.0 [facility] Comment on above: Performed By: #### C YTO #### [facility] [address] [place] [address] Dr. Troy Jeter Urea nitrogen/Creatinine [Mass ratio] 19.1 mg/mg Normal [facility] Comment on above: Performed By: #### C YTO #### [facility] [address] [place] [address] Dr. Troy Jeter CBC W MANUAL DIFFon 03-28-20 22 ATYPICAL LYMPH # Normal [facility] Comment on above: Performed By: #### C YTO #### [facility] [address] [place] [address] Dr. Troy Jeter ATYPICAL LYMPH % Normal [facility] Comment on above: Performed By: #### C YTO #### [facility] [address] [place] [address] Dr. Troy Jeter BAND # 0.1 103/ul Normal 0.0-0.3 [facility] Comment on above: Performed By: #### C YTO #### [facility] [address] [place] [address] Dr. Troy Jeter BAND % 1 % Normal 0-5 [facility] Comment on above: Performed By: #### C YTO #### [facility] [address] [place] [address] Dr. Troy Jeter BASOM # 0.08 103/ul Normal 0.00-0.10 [facility] Comment on above: Performed By: #### C YTO #### [facility] [address] [place] [address] Dr. Troy Jeter BASOM % 1.0 % Normal 0.2-2.0 [facility] Comment on above: Performed By: #### C YTO #### [facility] [address] [place] [address] Dr. Troy Jeter BLAST # Normal [facility] Comment on above: Performed By: #### C YTO #### [facility] [address] [place] [address] Dr. Troy Jeter BLAST % Normal [facility] Comment on above: Performed By: #### C YTO #### [facility] [address] [place] [address] Dr. Troy Jeter CORRECTED WBC Normal 4.0-11.0 [facility] Comment on above: Performed By: #### C YTO #### [facility] [address] [place] [address] Dr. Troy Jeter EOS # 0.00 103/ul Normal 0.00-0.70 [facility] Comment on above: Performed By: #### C YTO #### [facility] [address] [place] [address] Dr. Troy Jeter EOS% 0.0 % Critically low 0.9-7.0 [facility] Comment on above: Performed By: #### C YTO #### [facility] [address] [place] [address] Dr. Troy Jeter HCT 40.2 % Normal 36.0-48.0 [facility] Comment on above: Performed By: #### C YTO #### [facility] [address] [place] [address] Dr. Troy Jeter HGB 12.5 g/dl Normal 12.0-16.0 [facility] Comment on above: Performed By: #### C YTO #### [facility] [address] [place] [address] Dr. Troy Jeter LYMPHM # 0.23 103/ul Critically low 1.20-3.80 [facility] Comment on above: Performed By: #### C YTO #### [facility] [address] [address] [address] Troy Jeter LYMPHM% 3.0 % Critically low 20.5-60.0 [facility] Comment on above: Performed By: #### C YTO #### [facility] [address] [place] [address] Dr. Troy Jeter MCH 27.1 pg Normal 26.7-34.0 [facility] Comment on above: Performed By: #### C YTO #### [facility] [address] [place] [address] Dr. Troy Jeter MCHC 31.1 g/dl Normal 29.9-35.2 [facility] Comment on above: Performed By: #### C YTO #### [facility] [address] [place] [address] Dr. Troy Jeter MCV 87.2 fL Normal 81.0-99.0 [facility] Comment on above: Performed By: #### C YTO #### [facility] [address] [place] [address] Dr. Troy Jeter METAMYELOCYTE # Normal [facility] Comment on above: Performed By: #### C YTO #### [facility] [address] [place] [address] Dr. Troy Jeter METAMYELOCYTE % Normal [facility] Comment on above: Performed By: #### C YTO #### [facility] [address] [place] [address] Dr. Troy Jeter MONOM# 0.08 103/ul Critically low 0.30-0.80 [facility] Comment on above: Performed By: #### C YTO #### [facility] [address] [place] [address] Dr. Troy Jeter MONOM% 1.0 % Critically low 1.7-12.0 [facility] Comment on above: Performed By: #### C YTO #### [facility] [address] [place] [address] Dr. Troy Jeter MPV 10.0 fL Normal 9.5-13.5 [facility] Comment on above: Performed By: #### C YTO #### [facility] [address] [address] [address] Troy Jeter MYELOCYTE # Normal [facility] Comment on above: Performed By: #### C YTO #### [facility] [address] [address] [address] Troy Jeter MYELOCYTE % Normal [facility] Comment on above: Performed By: #### C YTO #### [facility] [address] [address] [address] Tory Jeter NRBC Normal [facility] Comment on above: Performed By: #### C YTO #### [facility] [address] [place] [address] Dr. Troy Jeter PLT 230 103/ul Normal 150-450 [facility] Comment on above: Performed By: #### C YTO #### [facility] [address] [place] [address] Dr. Troy Jeter RBC 4.61 106/ul Normal 4.20-5.40 [facility] Comment on above: Performed By: #### C YTO #### [facility] [address] [place] [address] Dr. Troy Jeter RDW 13.8 % Normal 11.0-15.0 [facility] Comment on above: Performed By: #### C YTO #### [facility] [address] [address] [address] Troy Jeter SEG # 7.14 103/ul Critically high 1.40-6.50 [facility] Comment on above: Performed By: #### C YTO #### [facility] [address] [address] [address] Troy Jeter SEG % 94.0 % Critically high 43.0-75.0 [facility] Comment on above: Performed By: #### C YTO #### [facility] [address] [place] [address] Dr. Troy Jeter WBC 7.6 103/ul Normal 4.0-11.0 [facility] Comment on above: Performed By: #### C YTO #### [facility] [address] [address] ABD/PELVIS WO CONon [...] ABDIAZIZ HALEY Date: 2022-03-28 16:37 Normal [facility] Covid-19 PCR (CVDTB)on 03-01 SARS-CoV-2 (COVID-19) RNA BRANDEN+probe Ql (Unsp spec) Not detected Normal NOT DETECTED [facility] Comment on above: Result Comment: When [...] for this test is supported by the Property Valuer of Health and Human Service's declaration that [...] used). Performed By: #### C VDTB #### [facility] [address] [place] [address] Dr. Tryo Jeter ER URINE PROFILEon 2 Bilirubin Ql (U) Negative Normal NEGATIVE [facility] Comment on above: Performed By: #### C BC #### [facility] [address] [place] [address] Dr. Troy Jeter Clarity (U) CLEAR Normal CLEAR [facility] Comment on above: Performed By: #### C BC #### [facility] [address] [place] [address] Dr. Troy Jeter Color (U) LT. YELLOW Normal YELLOW [facility] Comment on above: Performed By: #### C BC #### [facility] [address] [place] [address] Dr. Tryo INMAN A micrscopic examination will be performed if indicated. Normal [facility] Comment on above: Performed By: #### C BC #### [facility] [address] [place] [address] Dr. Troy Jeter Glucose Ql (U) Negative Normal NEGATIVE [facility] Comment on above: Performed By: #### C BC #### [facility] [address] [place] [address] Dr. Troy Jeter Hemoglobin Ql (U) SMALL Abnormal NEGATIVE [facility] Comment on above: Performed By: #### C BC #### [facility] [address] [place] [address] Dr. Troy Jeter Ketones Ql (U) Negative Normal NEGATIVE [facility] Comment on above: Performed By: #### C BC #### [facility] [address] [place], [place] [id number] Dr. Troy Jeter LEUKOCYTES Negative Normal NEGATIVE [facility] Comment on above: Performed By: #### C BC #### [facility] [address] [place] [address] Dr. Troy Jeter Nitrite Ql (U) Negative Normal NEGATIVE [facility] Comment on above: Performed By: #### C BC #### [facility] [address] [place] [address] Dr. Troy Jeter pH (U) 6.0 [pH] Normal 5-9 [facility] Comment on above: Performed By: #### C BC #### [facility] [address] [place] [address] Dr. Troy Jeter SPEC GRAVITY 1.020 Normal 1.005-<=1.025 [facility] Comment on above: Performed By: #### C BC #### [facility] [address] [place] [address] Dr. Troy Jeter UA PROTEIN Negative Normal NEGATIVE/ TRACE [facility] Comment on above: Performed By: #### C BC #### [facility] [address] [place] [address] Dr. Troy Jeter UR MICRO IND INDICATED Normal [facility] Comment on above: Performed By: #### C BC #### [facility] [address] [place] [address] Dr. Troy Jeter Urobilinogen Qn (U) 0.2 {Kriss'U}/dL Normal 0.2 - 1. 0 [facility] Comment on above: Performed By: #### C BC #### [facility] [address] [place] [address] Dr. Troy Jeter GI PANEL (PCR)on 03-28-2022 Adenovirus F 40/41 Not detected Normal NOT DETECTED [facility] Comment on above: Performed By: #### C YTO #### [facility] [address] [place] [address] Dr. Troy Jeter Astrovirus Not detected Normal NOT DETECTED [facility] Comment on above: Performed By: #### C YTO #### [facility] [address] [place] [address] Dr. Troy Cid. Diff toxin A/B Not detected Normal NOT DETECTED [facility] Comment on above: Performed By: #### C YTO #### [facility] [address] [place] [address] Dr. Troy Jeter Campylobacter Not detected Normal NOT DETECTED [facility] Comment on above: Performed By: #### C YTO #### [facility] [address] [place] [address] Dr. Troy Jeter Cryptosporidium Not detected Normal NOT DETECTED [facility] Comment on above: Performed By: #### C YTO #### [facility] [address] [place] [address] Dr. Troy Jeter Cyclos. Cayetanensis Not detected Normal NOT DETECTED [facility] Comment on above: Performed By: #### C YTO #### [facility] [address] [place] [address] Dr. Troy Jeter E. Coli O157 Not Applicable Normal Not Applicable [facility] Comment on above: Performed By: #### C YTO #### [facility] [address] [place] [address] Dr. Troy Jeter E. histolytica Not detected Normal NOT DETECTED [facility] Comment on above: Performed By: #### C YTO #### [facility] [address] [place] [address] Dr. Troy Jeter EAEC Not detected Normal NOT DETECTED [facility] Comment on above: Performed By: #### C YTO #### [facility] [address] [place] [address] Dr. Troy Jeter EIEC Not detected Normal NOT DETECTED [facility] Comment on above: Performed By: #### C YTO #### [facility] [address] [place] [address] Dr. Troy Jeter EPEC Not detected Normal NOT DETECTED [facility] Comment on above: Performed By: #### C YTO #### [facility] [address] [place] [address] Dr. Troy Jeter ETEC Not detected Normal NOT DETECTED [facility] Comment on above: Performed By: #### C YTO #### [facility] [address] [address] [address] Troy Souza Not detected Normal NOT DETECTED [facility] Comment on above: Performed By: #### C YTO #### [facility] [address] [address] [address] Troy KIMBROUGH CONTROLS PASSED Normal [facility] Comment on above: Performed By: #### C YTO #### [facility] [address] [address] [address] Troy PAYTON BAR HEADER GI PANEL BACTERIA Normal T [facility] Comment on above: Performed By: #### C YTO #### [facility] [address] [place] [address] Dr. Troy JIMENEZ ECOLI GI PANEL DIARRHEAGEN IC E.COLI / SHIGELLA Normal [facility] Comment on above: Performed By: #### C YTO #### [facility] [address] [place] [address] Dr. Troy JIMENEZ INFO SEE BELOW Normal [facility] Comment on above: Result Comment: EAEC - Enteroaggregative E. Coli EPEC- Enteropathogenic E. Coli ETEC- Enterotoxigenic E. Coli lt/st STEC- Shigella-like toxin-producing E. Coli stx1/stx2 EIEC- Shigella/Enteroinvasive E. Coli Performed By: #### C YTO #### [facility] [address] [place] [address] Dr. Troy JIMENEZ PARASITES GI PANEL PARASITES Normal [facility] Comment on above: Performed By: #### C YTO #### [facility] [address] [place] [address] Dr. Troy JIMENEZ VIRUS GI PANEL VIRUSES Normal [facility] Comment on above: Performed By: #### C YTO #### [facility] [address] [place] [address] Dr. Troy Jeter Norovirus GI/GII Not detected Normal NOT DETECTED [facility] Comment on above: Performed By: #### C YTO #### [facility] [address] [place] [address] Dr. Troy Jeter P. Shigelloides Not detected Normal NOT DETECTED [facility] Comment on above: Performed By: #### C YTO #### [facility] [address] [place] [address] Dr. Troy Jeter Rotavirus A Detected Abnormal NOT DETECTED [facility] Comment on above: Performed By: #### C YTO #### [facility] [address] [place] [address] Dr. Troy Jeter Salmonella Not detected Normal NOT DETECTED [facility] Comment on above: Performed By: #### C YTO #### [facility] [address] [place] [address] Dr. Troy Jeter Sapovirus Not detected Normal NOT DETECTED [facility] Comment on above: Performed By: #### C YTO #### [facility] [address] [place] [address] Dr. Troy Jeter STEC Not detected Normal NOT DETECTED [facility] Comment on above: Performed By: #### C YTO #### [facility] [address] [place] [address] Dr. Troy Jeter Vibrio Not detected Normal NOT DETECTED [facility] Comment on above: Performed By: #### C YTO #### [facility] [address] [place] [address] Dr. Troy Jeter Vibrio Cholera Not detected Normal NOT DETECTED [facility] Comment on above: Performed By: #### C YTO #### [facility] [address] [place] [address] Dr. Troy Jeter Y. Enterocolitica Not detected Normal NOT DETECTED [facility] Comment on above: Performed By: #### C YTO #### [facility] [address] [place] [address] Dr. Troy Jeter LACTATE/LACTIC ACIDon 2021 Lactate [Moles/Vol] 1.7 mmol/L Normal 0.4-1.9 [facility] Comment on above: Performed By: #### C BC #### [facility] [address] [place] [address] Dr. Troy Jeter LIPASEon 03-28-2022 Lipase [Catalytic activity/Vol] 135.0 U/L Normal 73.0-393.0 [facility] Comment on above: Performed By: #### L IPA, CMP #### [facility] [address] [place] [address] Dr. Troy Jeter PROF 14(COMP METB)on Albumin [Mass/Vol] 3.9 g/dL Normal 3.4-5.0 [facility] Comment on above: Performed By: #### L IPA, CMP #### [facility] [address] [place] [address] Dr. Troy Jeter Albumin/Globulin [Mass ratio] 1.0 {ratio} Normal [facility] Comment on above: Performed By: #### L IPA, CMP #### [facility] [address] [place] [address] Dr. Troy Jeter ALP [Catalytic activity/Vol] 81 U/L Normal 46-116 [facility] Comment on above: Performed By: #### L IPA, CMP #### [facility] [address] [place] [address] Dr. Troy Jeter ALT [Catalytic activity/Vol] 45 U/L Normal 14-59 [facility] Comment on above: Performed By: #### L IPA, CMP #### [facility] [address] [place] [address] Dr. Troy Jeter Anion gap [Moles/Vol] 15.2 mmol/L Normal [facility] Comment on above: Performed By: #### L IPA, CMP #### [facility] [address] [place] [address] Dr. Troy Jeter AST [Catalytic activity/Vol] 42 U/L Critically high 15-37 [facility] Comment on above: Performed By: #### L IPA, CMP #### [facility] [address] [place] [address] Dr. Troy Jeter Bilirubin [Mass/Vol] 0.5 mg/dL Normal 0.2-1.0 [facility] Comment on above: Performed By: #### L IPA, CMP #### [facility] [address] [place] [address] Dr. Troy Jeter Calcium [Mass/Vol] 9.4 mg/dL Normal 8.5-10.1 [facility] Comment on above: Performed By: #### L IPA, CMP #### [facility] [address] [address] [address] Troy Jeter Chloride [Moles/Vol] 105 mmol/L Normal 98-107 [facility] Comment on above: Performed By: #### L IPA, CMP #### [facility] [address] [place] [address] Dr. Troy Jeter CO2 [Moles/Vol] 23.7 mmol/L Normal 21.0-32.0 [facility] Comment on above: Performed By: #### L IPA, CMP #### [facility] [address] [place] [address] Dr. Troy Jeter Creatinine [Mass/Vol] 0.91 mg/dL Normal 0.55-1.02 [facility] Comment on above: Performed By: #### L IPA, CMP #### [facility] [address] [place] [address] Dr. Troy Jeter EGFR-AF [facility] >60 Normal >=60 [facility] Comment on above: Performed By: #### L IPA, CMP #### [facility] [address] [place] [address] Dr. Troy Jeter EGFR-NON AF [facility] >60 Normal >=60 [facility] Comment on above: Performed By: #### L IPA, CMP #### [facility] [address] [place] [address] Dr. Troy Jeter Globulin (S) [Mass/Vol] 4.0 g/dL Normal [facility] Comment on above: Performed By: #### L IPA, CMP #### [facility] [address] [place] [address] Dr. Troy Jeter Glucose [Mass/Vol] 119 mg/dL Critically high 74-106 [facility] Comment on above: Performed By: #### L IPA, CMP #### [facility] [address] [address] [address] Troy Jeter Potassium [Moles/Vol] 3.9 mmol/L Normal 3.5-5.1 [facility] Comment on above: Performed By: #### L IPA, CMP #### [facility] [address] [address] [address] Troy Jeter Protein [Mass/Vol] 7.9 g/dL Normal 6.4-8.2 [facility] Comment on above: Performed By: #### L IPA, CMP #### [facility] [address] [place] [address] Dr. Troy Jeter Sodium [Moles/Vol] 140 mmol/L Normal 136-145 [facility] Comment on above: Performed By: #### L IPA, CMP #### [facility] [address] [place] [address] Dr. Troy Jeter Urea nitrogen [Mass/Vol] 16.0 mg/dL Normal 7.0-18.0 [facility] Comment on above: Performed By: #### L IPA, CMP #### [facility] [address] [place] [address] Dr. Troy Jeter Urea nitrogen/Creatinine [Mass ratio] 17.6 mg/mg Normal [facility] Comment on above: Performed By: #### L IPA, CMP #### [facility] [address] [place] [address] Dr. Troy Jeter URINE MICROSCOPIC ONLYon BACTERIA TRACE Abnormal NONE SEEN [facility] Comment on above: Performed By: #### C BC #### [facility] [address] [place] [address] Dr. Troy Jeter Bacteria identified Cx Nom (U) NOT INDICATED Normal [facility] Comment on above: Performed By: #### C BC #### [facility] [address] [place] [address] Dr. Troy Jeter CAST NONE SEEN Normal NONE SEEN [facility] Comment on above: Performed By: #### C BC #### [facility] [address] [address] [address] Troy Jeter Crystals LM Nom (Urine sed) NONE SEEN Normal NONE SEEN [facility] Comment on above: Performed By: #### C BC #### [facility] [address] [place] [address] Dr. Troy Jeter Epithelial cells LM Ql (Urine sed) FEW Abnormal NONE SEEN /RARE [facility] Comment on above: Performed By: #### C BC #### [facility] [address] [place] [address] Dr. Troy Jeter MUCOUS NONE SEEN Normal NONE SEEN [facility] Comment on above: Performed By: #### C BC #### [facility] [address] [place] [address] Dr. Troy Jeter RBC 2-5 Abnormal 0-2 [facility] Comment on above: Performed By: #### C BC #### [facility] [address] [place] [address] Dr. Troy Jeter WBC 0-2 Abnormal NONE SEEN [facility] Comment on above: Performed By: #### C BC #### [facility] [address] [place] [address] Dr. Troy Jeter [facility]2020 [facility] Surgical Pathology Department Name DANIELLA BEJARANO Pathologist: AMEE KELSEY DMD Date of Procedure: 08/13/2020 Date Received: 08/17/2020 Date Reported 08/25/2020 Submitting Physician: BUTCH LONG DDS Location: [facility] Other External # FINAL DIAGNOSIS A. LEFT LATERAL TONGUE, EXCISION: -- TRAUMATIC ULCER -- NEGATIVE FOR DYSPLASIA OR MALIGNANCY ICD-10/CPT: K14.0/50281 Electronically Signed Out By AMEE KELSEY DMD/ARASELI [...] sectioned and entirely submitted in 2 cassettes. [facility] Summary of Cassettes: Specimen Label Site A 1 tips 2 body of ellipse [facility]/08/19/2020 [facility] Department of Pathology [address] [place] [address] Normal [facility] Comment on above: Performed By: #### [facility] #### [facility] Surgical Pathology Department [address] [place] [address] Cardiovascular Lab Reporton 06-12-2020 Cardiovascular Lab Report [facility] Patient Name: [facility] Chris MR #: [id number] Department of Physician: Audie Bustos M.D. Division of Service Date: 06/11/2020 Cardiology Birthdate: 1960 Adult Cardiovascular Room #: [address] [place] [address] Cardiovascular Laboratory Report INDICATION: The patient a [...] signed informed consent. She was brought to circus laborer in a fasting state. The right neck area was prepped and draped in usual fashion. Using ultrasound guidance and micropuncture technique, the right internal jugular vein was accessed. A 6-Mongolian x 11 cm sheath was placed. A 6-Mongolian Duron catheter was used for right heart catheterization with measurement of pressures and calculation of cardiac output using the estimated Daysi method. Duron catheter was removed. Access in the right radial artery was obtained using micropuncture technique. A 6-Mongolian x 11 cm Hydrophilic sheath was advanced. Verapamil was given through the sheath and heparin was administered intravenously. Note that modified David's test was favorable on the right. Initial catheter advancement was made, feasible using an angled Glidewire to overcome a radial artery loop, following which bilateral selective coronary angiography was performed using 6-Mongolian JL3.5 and JR5 diagnostic catheter. Catheters were [...] Bustos M.D. Date Trans: 06/12/2020 04:00 A/veenao [id number] cc: Bayron Singh M.D. [address] [facility] [id number] Normal [facility] *SARS-CoV-2 COVID-19on 06-09 [id number] Not Detected Normal Not Detected [facility] Comment on above: Order Comment: The A ptima SARS-CoV-2 assay is a nucleic acid amplification test intended for the qualitative detection of RNA from SARS-CoV-2 isolated and purified from nasopharyngeal (FOOD AND NUTRITION PROFESSOR),oropharyngeal (OP), nasal swab, sputum, and bronchoalveolar lavage (BAL) specimens from patients with signs and symptoms of infection who are suspected of COVID-19. Results are for the identification of SARS-CoV-2 RNA. The SARS-CoV-2 RNA is generally detectable during the acute phase of infection. The Aptima SARS-CoV-2 Assay on the Synchronic[employer]co and Synchronic[employer]co Fusion system is intended for use by laboratory personnel specifically instructed and trained in the operation of the [place] and [employer]chronic[employer] Fusion system. The Aptima SARS-CoV-2 assay is [...] information. Performed By: #### 3 [id number] #### [facility] Keyla [address] [place], [place] [address] [place] [address] 02-17-2020 CNPN Telephone (HEMASA) HERBERTDANIELLA LEHMAN ([id number]) 1960 F Date Time Provider Department 02/17/20 BONNY FELIPE During your visit today, we recorded the following information about you: Ai Blount 02/17/2020 2:53 PM Signed Records faxed to [facility]. Allergies As of Date: 02/17/2020 (No Known [...] Status:Closed by AI COLVIN on 02/17/20 Normal [facility] Vital Signs Date Time Vital Sign Value Performing Clinician Facility 04-26-2023 10:40-0400 Heart rate 84 /min Jeff Booth [facility] 04-26-2023 10:40-0400 SaO2% (BldA) [Mass fraction] 98 % Jeff Booth [facility] 04-26-2023 10:40-0400 Body temperature 97.52 [degF] Jeff Booth [place] 04-26-2023 10:39-0400 Diastolic blood pressure 75 mm[Hg] Jeff Booth [facility] 04-26-2023 10:39-0400 Mean blood pressure 87 mm[Hg] Jeff Booth [facility] 04-26-2023 10:39-0400 Systolic blood pressure 111 mm[Hg] Jeff Booth [facility] 04-26-2023 10:39-0400 Respiratory rate 16 /min Jeff Booth [place] 01-04-2023 08:01-0500 Blood Pressure Location Dina Lue [facility] 01-04-2023 08:01-0500 Diastolic blood pressure 82 mm[Hg] Dina Lue [facility] 01-04-2023 08:01-0500 Heart rate 71 /min Dina Lue [facility] 01-04-2023 08:01-0500 Systolic blood pressure 124 mm[Hg] Dina Lue [facility] 10-26-2022 10:26-0500 Blood Pressure Location AI RUY [facility] 10-26-2022 10:26-0500 Diastolic blood pressure 84 mm[Hg] AI RUY [facility] 10-26-2022 10:26-0500 Heart rate 65 /min AI RUY [facility] 10-26-2022 10:26-0500 Respiratory rate 16 /min AI RUY [facility] 10-26-2022 10:26-0500 Systolic blood pressure 123 mm[Hg] AI MITCHELL [facility] 10-19-2022 08:01-0500 Blood Pressure Location Dina Lue [facility] 10-19-2022 08:01-0500 Diastolic blood pressure 64 mm[Hg] Dina Lue [facility] 10-19-2022 08:01-0500 Heart rate 66 /min Dina Lue [facility] 10-19-2022 08:01-0500 Systolic blood pressure 145 mm[Hg] Dina Lue [facility] 10-12-2022 08:11-0500 Blood Pressure Location Dina Lue [facility] 10-12-2022 08:11-0500 Diastolic blood pressure 68 mm[Hg] Dina Lue [facility] 10-12-2022 08:11-0500 Heart rate 74 /min Dina Lue [facility] 10-12-2022 08:11-0500 Respiratory rate 16 /min Dina Lue [facility] 10-12-2022 08:11-0500 Systolic blood pressure 132 mm[Hg] Dina Lue [facility] 07-06-2022 10:28-0400 Blood Pressure Location Dina Lue [facility] 07-06-2022 10:28-0400 Diastolic blood pressure 62 mm[Hg] Dina Lue [facility] 07-06-2022 10:28-0400 Heart rate 74 /min Dina Lue [facility] 07-06-2022 10:28-0400 Respiratory rate 16 /min Dina Lue [facility] 07-06-2022 10:28-0400 Systolic blood pressure 98 mm[Hg] Dina Lue [facility] 03-02-2022 09:27-0400 Blood Pressure Location AI RUY [facility] 03-02-2022 09:27-0400 Diastolic blood pressure 66 mm[Hg] AI RUY [facility] 03-02-2022 09:27-0400 Heart rate 64 /min AI RUY [facility] 03-02-2022 09:27-0400 Systolic blood pressure 137 mm[Hg] AI RUY [facility] 02-09-2022 08:17-0400 Blood Pressure Location Dina Lue [facility] 02-09-2022 08:17-0400 Diastolic blood pressure 64 mm[Hg] Dina Lue [facility] 02-09-2022 08:17-0400 Heart rate 60 /min [facility] 02-09-2022 08:17-0400 Respiratory rate 16 /min Dina Lue [facility] 02-09-2022 08:17-0400 Systolic blood pressure 133 mm[Hg] Dina Lue [facility] 02-02-2022 08:03-0400 Blood Pressure Location Dina Lue [facility] 02-02-2022 08:03-0400 Diastolic blood pressure 100 mm[Hg] Dina Lue [facility] 02-02-2022 08:03-0400 Heart rate 72 /min [facility] 02-02-2022 08:03-0400 Systolic blood pressure 144 mm[Hg] [facility] 01-26-2022 08:18-0400 Blood Pressure Location [facility]ina Lue [facility] 01-26-2022 08:18-0400 Diastolic blood pressure 75 mm[Hg] Dina Lujavon [facility] [place] 01-26-2022 08:18-0400 Heart rate 56 /min Dina Cobb [facility] [place] 01-26-2022 08:18-0400 Systolic blood pressure 128 mm[Hg] Dina Cobb [facility] [place] Encounters Encounter Date Encounter Type Care Provider Facility Start: 11-15-2023 End: 11-15-2023 ambulatory BAYRON SINGH Not Available Start: 10-04-2023 ambulatory [facility] Start: 06-28-2023 End: 06-28-2023 ambulatory [facility] Start: 06-02-2023 End: 06-02-2023 ambulatory [facility] Start: 05-26-2023 End: 05-26-2023 ambulatory [facility] Start: 05-19-2023 End: 05-19-2023 [facility] Start: 05-16-2023 ambulatory AI E RUY Facili ty:[facility] Start: 05-12-2023 End: 05-12-2023 ambulatory [facility] Start: 05-09-2023 ambulatory AI E RUY Facili ty:[facility] Start: 05-05-2023 End: 05-05-2023 ambulatory [facility] Start: 04-28-2023 End: 04-28-2023 ambulatory [facility] Start: 04-26-2023 End: 04-27-2023 ambulatory Jeff Booth Facility:[facility] Start: 04-26-2023 End: 04-26-2023 Patient encounter procedure Jeff Booth [facility] Start: 04-25-2023 ambulatory AI DAVIDRY Ursula ty:[facility] [place] Start: 04-04-2023 End: 04-06-2023 ambulatory [facility] Start: 03-30-2023 End: 03-31-2023 ambulatory [facility] Start: 03-28-2023 End: 03-28-2023 ambulatory [facility] Start: 03-16-2023 End: 03-17-2023 ambulatory [facility] Start: 03-13-2023 ambulatory [facility] Start: 03-13-2023 End: 03-13-2023 ambulatory [facility] Start: 03-08-2023 Encounter for genera l adult medical examination without abnormal findings DR BAYRON SINGH [facility] Start: 03-06-2023 End: 03-07-[address] BAYRON SINGH Facility:[facility] Start: 03-02-2023 End: 03-03-[address] BAYRON SINGH Facility:[facility] Start: 03-02-2023 End: 03-03-2023 Encounter for general adult medical examination without abnormal findings DR BAYRON SINGH Facility:[facility] Start: 02-22-2023 End: 02-22-2023 ambulatory [facility] Start: 01-04-2023 End: 01-05-2023 ambulatory Dina Cobb Facility:[facility] Start: 01-04-2023 End: 01-04-2023 Patient encounter procedure Dina Cobb [facility] Start: 01-02-2023 ambulatory Dina Cobb Facility:[facility] Start: 12-28-2022 End: 12-29-2022 ambulatory DINA COBB . Facility:[facility] Start: 12-25-2022 Encounter for preprocedural cardiovascular examination DINA COBB . [facility] Start: 12-21-2022 End: 12-22-2022 ambulatory DINA COBB . Facility: Start: 12-21-2022 End: 12-22-2022 Encounter for preprocedural cardiovascular examination DINA COBB . Facility: Start: 12-14-2022 End: 12-15-2022 ambulatory Blanca Fitzpatrick Facility:[facility] Start: 12-14-2022 End: 12-14-2022 Lab Drop off Blanca Mckaymons [facility] Start: 12-14-2022 End: 12-14-2022 Patient encounter procedure Dina Cobb [facility] Start: 12-07-2022 End: 12-08-2022 ambulatory DINA COBB . Facility: Start: 11-23-2022 End: 11-24-[address] BAYRON SINGH Facility: Start: 11-05-2022 End: 11-05-[address] BAYRON SINGH Facility: Start: 10-28-2022 ambulatory Dina Cobb Facility:[facility] Start: 10-26-2022 End: 10-26-2022 Patient encounter procedure AI MITCHELL [facility] Start: 10-26-2022 End: 10-27-2022 ambulatory AI MITCHELL Facility:[facility] [place] Start: 10-19-2022 End: 10-20-2022 ambulatory Dina Cobb Facility:[facility] Start: 10-19-2022 End: 10-19-2022 Patient encounter procedure Dina Cobb [facility] Start: 10-12-2022 End: 10-13-2022 ambulatory Dina Cobb Facility:[facility] Start: 10-12-2022 End: 10-12-2022 Patient encounter procedure Dina M. Lue [facility] Start: 10-05-2022 ambulatory Dina Lue Facility:[facility] Start: 09-02-2022 End: 09-03-[address] MICAELA DE . Facility: Start: 08-10-2022 End: 08-11-2022 ambulatory DINA M LUE . Facility: Start: 07-22-2022 End: 07-23-2022 ambulatory DINA M LUE . Facility: Start: 07-06-2022 End: 07-07-2022 ambulatory Dina M. Lue Facility:[facility] Start: 07-06-2022 End: 07-06-2022 Patient encounter procedure Dina M. Lue [facility] Start: 07-01-2022 End: 07-02-2022 ambulatory DINA M LUE . Facility: Start: 06-29-2022 End: 06-30-2022 ambulatory Dnia M. Lue Facility:[facility] Start: 06-29-2022 End: 06-29-2022 Patient encounter procedure Dina M. Lue [facility] Start: 06-22-2022 End: 06-22-2022 Patient encounter procedure Dina M. Lue [facility] Start: 05-26-2022 End: 05-27-[address] BAYRON SINGH Facility: Start: 05-18-2022 End: 05-18-2022 Patient encounter procedure Dina M. Lue [facility] Start: 05-11-2022 End: 05-11-2022 ambulatory DINA M LUE . Facility:[facility] Start: 05-09-2022 Encounter for preprocedural laboratory examination DINA M LUE . [facility] Start: 05-04-2022 End: 05-05-2022 ambulatory DINA M LUE . Facility:[facility] Start: 05-04-2022 End: 05-05-2022 Encounter for preprocedural laboratory examination DINA M LUE . Facility:[facility] Start: 04-27-2022 End: 04-27-2022 ambulatory DINA M LUE . Facility:[facility] Start: 04-11-2022 End: 04-12-[address] BAYRON SINGH Facility:[facility] Start: 03-28-2022 End: 03-31-[address] BAYRON SINGH Facility:[facility] Start: 03-25-2022 End: 03-25-2022 Lab Drop off Loco MARRERO [facility] Start: 03-25-2022 End: 03-25-2022 Patient encounter procedure Loco MARRERO [facility] Start: 03-02-2022 End: 03-02-2022 Patient encounter procedure AI MITCHELL [facility] Start: 02-09-2022 End: 02-09-2022 Patient encounter procedure Dina M. Lue [facility] Start: 02-02-2022 End: 02-02-2022 Patient encounter procedure Dina M. Lue [facility] Start: 01-26-2022 End: 01-26-2022 Lab Drop off Dina Cobb [facility] Start: 01-26-2022 End: 01-26-2022 Patient encounter procedure Dina Cobb [facility] [place] Start: 03-26-2021 End: 03-27-2021 ambulatory Referral Self Facility:[facility] Start: 06-11-2020 End: 06-12-2020 Patient encounter procedure PROVIDER UNKNOWN Facility:[facility] Procedures Date Procedure Procedure Detail [...] Immunization Date Immunization Notes Care Provider [facility] 10-26-2022 bacillus calmette-gu nest[place] vaccine AI RUY [facility] 10-19-2022 bacillus calmette-gu nest[place] vaccine Dina Lue [facility] 10-12-2022 bacillus calmette-gu nest[place] vaccine Dina Lue [facility] 09-02-2022 SARS-CoV-2 (COVID-19 ) mRNA-1603 vaccine Dina Lue [facility] 08-04-2022 influenza virus vacc ine, unspecified formulation Dina Lue [facility] 07-26-2022 bacillus calmette-gu nest[place] vaccine Dina Lue [facility] 07-06-2022 bacillus calmette-gu nest[place] vaccine Dina Lue [facility] 06-29-2022 bacillus calmette-gu nest[place] vaccine Dina Lue [facility] 06-22-2022 bacillus calmette-gu nest[place] vaccine Dina Lue [facility] 03-02-2022 bacillus calmette-gu nest[place] vaccine AI RUY [facility] 02-23-2022 bacillus calmette-gu nest[place] vaccine AI RUY [facility] 02-16-2022 bacillus calmette-gu nest[place] vaccine AI RUY [facility] 02-09-2022 bacillus calmette-gu nest[place] vaccine Dina Lue [facility] 02-02-2022 bacillus calmette-gu nestor vaccine Dina Lue [facility] 01-26-2022 bacillus calmette-gu nestor vaccine Dina Lue [facility] 12-17-2021 pneumococcal polysaccharide vaccine, 23 valent Dina Lue [facility] 10-27-2021 bacillus calmette-gu nestor vaccine Dina Lue [facility] 10-19-2021 bacillus calmette-gu nest[place] vaccine Dian Lue [facility] 10-13-2021 bacillus calmette-gu nestor vaccine Dina Lue [facility] 10-06-2021 bacillus calmette-gu nestor vaccine Dina Lue [facility] 09-29-2021 bacillus calmette-gu nestor vaccine Dina Lue [facility] 11-24-2021 bacillus calmette-gu nestor vaccine Dina Lue [facility] 08-20-2021 SARS-CoV-2 (COVID-19 ) mRNA-1273 vaccine Dina Lue [facility] 08-19-2021 influenza virus vacc ine, unspecified formulation AI MITCHELL [facility] 07-30-2021 influenza virus vacc ine, unspecified formulation Dina Lujavon [facility] 11-26-2020 SARS-CoV-2 (COVID-19 ) mRNA-1273 vaccine Dina Lue [facility] 10-28-2020 SARS-CoV-2 (COVID-19 ) mRNA-1273 vaccine Dina Lujavon [facility] 07-18-2018 influenza virus vacc ine, unspecified formulation Dina Lue [facility] 07-30-2015 pneumococcal polysaccharide vaccine, 23 valent Dina Lue [facility] Payers Date Payer Category Payer Unknown [id number] 2020 Self-pay [id number] 2019 Unknown [id number] 1959 Self-pay [id number] 1959 Unknown [id number] 1960 Unknown [id number] 2.16.8 40.1.701406.3.579.2.647 1960 Unknown [id number] 2.16.84 0.1.625745.3.579.2.593 1960 Unknown [id number] 2.16.84 0.1.832390.3.579.2.593 1960 Unknown [id number] 2.16.84 0.1.708439.3.579.2.593 1960 Unknown [id number] 2.16.84 0.1.471208.3.579.2.593 1960 Unknown [id number] 2.16.84 0.1.127184.3.579.2.593 1960 Unknown [id number] 2.16.84 0.1.599249.3.579.2.593 1960 Unknown [id number] 2.16.84 0.1.963706.3.579.2.593 1960 Unknown [id number] 2.16.84 0.1.678335.3.579.2.593 1958 Unknown [id number] 2.16.84 0.1.464903.3.579.2.593 1958 Unknown [id number] 2.16.84 0.1.979106.3.579.2.593 1958 Unknown [id number] 2.16.84 0.1.477795.3.579.2.593 1958 Unknown [id number] 2.16.84 0.1.009709.3.579.2.593 1958 Unknown [id number] 2.16.84 0.1.401570.3.579.2.593 1958 Unknown [id number] 2.16.84 0.1.607481.3.579.2.593 1958 Unknown [id number] 2.16.84 0.1.556843.3.579.2.593 1958 Unknown [id number] 2.16.84 0.1.119274.3.579.2.593 1958 Unknown [id number] 2.16.8 40.1.420601.3.579.2.727 1958 Unknown [id number] 2.16.8 40.1.179034.3.579.2.727 1958 Unknown [id number] 2.16.8 40.1.013650.3.579.2.72 1960 Unknown [id number] 2.16.8 40.1.615398.3.579.2.72 1958 Unknown [id number] 2.16.8 40.1.489319.3.579.2.727 1958 Unknown [id number] 2.16.8 40.1.451054.3.579.2.727 1958 Unknown [id number] 2.16.8 40.1.505831.3.579.2.727 1958 Unknown [id number] 2.16.8 40.1.956390.3.579.2.727 1958 Unknown [id number] 2.16.8 40.1.768978.3.579.2.727 1958 Unknown [id number] 2.16.8 40.1.467586.3.579.2.727 1958 Unknown [id number] 2.16.8 40.1.640415.3.579.2.727 1958 Unknown [id number] 2.16.8 40.1.817873.3.579.2.727 1958 Unknown [id number] 2.16.8 40.1.332724.3.579.2.727 1958 Unknown [id number] 2.16.8 40.1.579647.3.579.2.72 1958 Unknown [id number] 2.16.8 40.1.409410.3.579.2.727 1958 Unknown [id number] 2.16.8 40.1.786191.3.579.2.727 1958 Unknown [id number] 2.16.8 40.1.216593.3.579.2.727 1958 Unknown [id number] 2.16.8 40.1.592227.3.579.2.727 1960 Unknown [id number] 2.16.8 40.1.862573.3.579.2.727 1958 Unknown [id number] 2.16.84 0.1.219119.3.579.2.1259 Unknown [id number] 2.16.84 0.1.965674.3.579.2.593 Unknown [id number] 2.16.8 40.1.231504.3.579.2.531 Social History Date Type Detail Facility Start: 01-26-2022 End: 10-12-2022 Tobacco smoking status Ex-smoker (finding) [facility] Tobacco smoking status Never [facility] Sex Assigned At Female [facility] Start: 1960 Sex Assigned At Female F [facility] Functional Status Date Assessment Result Facility 01-04-2023 Functional Status N/A [facility] 10-26-2022 Functional Status N/A [facility] 10-19-2022 Functional Status N/A [facility] 10-12-2022 Functional Status N/A [facility] 07-06-2022 Functional Status N/A [facility] 06-22-2022 Functional Status N/A [facility] 05-18-2022 Functional Status N/A [facility] Clinical Notes 01-26-2022 to 10-04-2023 Note Date & Type Note Facility 10-04-2023 Note Satisfactory for michele luation. Examination of the ThinPrep slide reveals benign urothelial cells and squamous cells in a background of lubricant. [facility] Comment on above: Order Comment: Via c ysto Performed By: #### L [id number] ####[facility] ([facility])[address] [place] [address] 10-04-2023 Note I PATIENT: Daniella Bejarano DATE [...] recurrent bladder tumor. 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 - 01/26/2022: [...] of malignancy, th (more content not included)... [facility] 10-04-2023 Note Patient ID: Daniella Bejarano is [...] the procedure room for the entire procedure. [facility] 06-28-2023 Note Satisfactory for michele luation. Examination of the ThinPrep slide reveals squamous cells and scattered urothelial cells in a background of few inflammatory cells and lubricant. [facility] Comment on above: Order Comment: Via c nicoleto Performed By: #### L [id number] #### [facility] (BEAKER) [address] [place] [address] 06-28-2023 Note Patient ID: Daniella Bejarano is [...] the procedure room for the entire procedure. [facility] 06-28-2023 Note I PATIENT: Daniella Bejarano DATE [...] recurrent bladder tumor. 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 - 01/26/2022: [...] diagnosis bilaterally. Therefore she was referred to [place] for further management. Ms. Bejarano underwent white [...] of malignancy, th (more content not included)... [facility] 06-02-2023 Note Bernarda Hagan RN e xplained [...] Center. Bernarda Hagan RN then informed Infusion loop machine operator that Daniella A Neikirk was ready for treatment. [facility] 05-26-2023 Note Danielle Briggs MA expl ained [...] [place] [id number] down to the Infusion Center. Danielle Briggs MA then informed Infusion loop machine operator that Daniella A Neikirk was ready for treatment. [facility] 05-19-2023 Note 7991 Zaria Jackson exp lained [...] bag of personal belongings, then transported by [id number] down to the Infusion Center. [id number] then informed Infusion loop machine operator that Daniella A Neikirk was ready for treatment. [facility] 05-12-2023 Note 1110 Patient arrived by wheelchair [...] drugs, at separate times, intravesicular instillations. CPetersRN [facility] 05-12-2023 Note [id number] Jackson expl ained the [...] the Infusion Center. [id number] then informed Infusion loop machine operator that Daniella Perez Neikirk was ready for treatment. [facility] 05-05-2023 Note 1040- pt arrived to infusino [...] or spasms.gutierrez catheter removed after completely drained. [facility] 05-05-2023 Note Zaria borjae d the procedure [...] Jackson down to the Infusion Center. 7991 Zarai collier informed Infusion loop machine operator that Daniella Perez Neikirk was ready for treatment. [facility] 04-28-2023 Note Pt arrived with fole y in place from urology clinic draining clear yellow urine. Docetaxel instilled and held 60 minutes, drained to gutierrez bag. Gemcitabine instilled and held 60 minutes, drained to gutierrez bag. Gutierrez removed upon completion, tolerated treatment well. Reviewed home precautions with patient. [facility] 04-28-2023 Note 7991 Zaria Jackson exp lained the [...] the Infusion Center. [id number] then informed Infusion loop machine operator that Daniella Bejarano was ready for treatment. Zaheer Briggs [facility] 04-04-2023 Note I PATIENT: Daniella Bejarano DATE [...] recurrent bladder tumor. 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 - 01/26/2022: [...] diagnosis bilaterally. Therefore she was referred to fl for further management. Ms. Bejarano underwent white [...] nocturia x2, sometim (more content not included)... [facility] 03-28-2023 Note I PATIENT: Daniella Bejarano DATE [...] recurrent bladder tumor. 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 - 01/26/2022: [...] 2-3 hours, noct (more content not included)... [facility] 03-13-2023 Note Patient: Daniella stevens Procedure Summary Date: 03/13/23 Room / Location: [facility]PER[facility]OM 07 / [facility] Operating Room Anesthesia Start: 0730 Anesthesia Stop: [...] no known notable events for this encounter. [facility] 03-13-2023 Note Patient: Daniella stevens Procedure Summary Date: 03/13/23 Room / Location: [facility] OPERATING [facility]OM 07 / [facility] Operating Room Anesthesia Start: 30 Anesthesia Stop: [...] observation Transport: uneventful Patient condition is: stable [facility] 03-13-2023 Note Airway Date/Time: 03/13/2023 7:47 AM Urgency: elective Airway not difficult General Information and Staff Patient location during procedure: OR Anesthesiologist: Aleksey Barraza MD Resident/VOICER/CAA: JONA Le Performed: other anesthesia staff Indications and [...] 1 Number of other approaches attempted: 0 [facility] 03-13-2023 Note Satisfactory for michele luation. Examination of the ThinPrep slide reveals rare atypical urothelial cells with increased n/c ratio and mild nuclear membrane irregularities. 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 Additional Equipment Requests [facility] 02-22-2023 Note Satisfactory for michele luation. Examination of the ThinPrep slide reveals primarily squamous cells with scattered urothelial cells and bacteria. This may represent contamination from the lower female genital tract. [facility] Comment on above: Performed By: #### L AB13 #### [facility] ([place]) [place] [address] 02-22-2023 Note PATIENT: Daniella stevens DATE OF [...] recurrent bladder tumor. 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 - 01/26/2022: [...] past medical history of Arthritis, Bladder cancer ([facility]), Breast cancer ([facility]) (2018), GERD (gastroesophageal reflux disease), History of [...] , Rfl: ergocalciferol (Vitamin D-2) 1.25 MG (93401 Units) capsule, Take by mouth., Disp: , [...] Rfl: calcium carb-vitam (more content not included)... [facility] 01-04-2023 Hospital Discharge instructions Patient Education 01/04/2023 [...] cells. Follow these instructions at home: Take aliz-moo-epdkpeq and prescription medicines only as told by [...] is important. Where to find more information [place] [employer]: www.cancer.org National Cancer [place] (NCI): www.cancer.gov Contact a health care provider [...] 10/18/2004 Document Revised: 09/28/2018 Document Reviewed: 09/19/2017 [facility] [facility] Patient Education 2020 [employer]. Follow Up Care 01/02/2023 12:19:37 With:Reza JAMES, ISAIAH Mckeon, URO Address: When: Unknown [facility] 10-19-2022 Hospital Discharge instructions Patient Education 10/19/2022 [...] cells. Follow these instructions at home: Take zmoo-ihe-qodusns and prescription medicines only as told by [...] is important. Where to find more information [place] [employer]: www.cancer.org National Cancer [place] (NCI): www.cancer.gov Contact a health care provider [...] 10/18/2004 Document Revised: 09/28/2018 Document Reviewed: 09/19/2017 [employer] [facility] Patient Education 2020 [employer]. [facility] 10-12-2022 Hospital Discharge instructions Patient Education 10/12/2022 [...] cells. Follow these instructions at home: Take brya-bvm-zzqmpwx and prescription medicines only as told by [...] is important. Where to find more information [place] [employer]: www.cancer.org National Cancer [place] (NCI): www.cancer.gov Contact a health care provider [...] 10/18/2004 Document Revised: 09/28/2018 Document Reviewed: 09/19/2017 [employer] Patient Education 2020 [employer]. Follow Up Care 08/22/2022 12:52:59 With:Reza JAMES, ISAIAH Mckeon, URO Address: When:1 week Comments:BCG #2 of #3 [facility] 10-05-2022 Hospital Discharge instructions Follow Up Care 10/05/2022 15:19:40 With:AI MITCHELL PA-C, URL Address: [address] [place] [address]. [place] [address] When: Unknown [facility] 07-06-2022 Hospital Discharge instructions Patient Education 07/06/2022 [...] cells. Follow these instructions at home: Take zbiw-vem-nndsmcm and prescription medicines only as told by [...] is important. Where to find more information [place] [employer]: www.cancer.org National Cancer [place] (NCI): www.cancer.gov Contact a health care provider [...] 10/18/2004 Document Revised: 09/28/2018 Document Reviewed: 09/19/2017 [facility] [facility] Patient Education 2020 [employer] Follow Up Care 05/18/2022 11:12:11 With:Reza JAMES, ISAIAH Mckeon, URO Address: When: Unknown [facility] 06-29-2022 Hospital Discharge instructions Patient Education 06/29/2022 [...] cells. Follow these instructions at home: Take oniz-nzh-eobzihm and prescription medicines only as told by [...] is important. Where to find more information [place] [employer]: www.cancer.org National Cancer [place] (NCI): www.cancer.gov Contact a health care provider [...] 10/18/2004 Document Revised: 09/28/2018 Document Reviewed: 09/19/2017 [facility] [facility] Patient Education 2020 [employer] Follow Up Care 05/18/2022 11:11:14 With:Reza JAMES, ISAIAH Mckeon, URO Address: When:Within 1 Week(s) Comments:BCG #3 [facility] 06-22-2022 Hospital Discharge instructions Patient Education 06/22/2022 [...] cells. Follow these instructions at home: Take jwbz-csz-tdtegpe and prescription medicines only as told by [...] is important. Where to find more information [place] [employer]: www.cancer.org National Cancer [place] (NCI): www.cancer.gov Contact a health care provider [...] 10/18/2004 Document Revised: 09/28/2018 Document Reviewed: 09/19/2017 [employer] Patient Education 2020 [employer] Follow Up Care 05/18/2022 11:09:55 With:Reza JAMES, ISAIAH Mckeon, URO Address: When:1 week Comments:bcg #2 [facility] 05-18-2022 Hospital Discharge instructions Patient Education 05/18/2022 [...] cells. Follow these instructions at home: Take qddu-sgz-psdabkx and prescription medicines only as told by [...] is important. Where to find more information [place] [employer]: www.cancer.org National Cancer [place] (NCI): www.cancer.gov Contact a health care provider [...] 10/18/2004 Document Revised: 09/28/2018 Document Reviewed: 09/19/2017 [facility] Patient Education [employer] Follow Up Care 05/12/2022 12:08:46 With:Reza JAMES, ISAIAH Mckeon, URO Address: When:1 month [facility] 03-17-2022 Hospital Discharge instructions Follow Up Care 03/17/2022 16:12:48 With:Jeff Booth Address: [facility] [address] [place] [address] [phone] Fax Business (1) When: Unknown Comments:f/u 1 year. no labs. [facility] 03-02-2022 Hospital Discharge instructions Patient [...] cells. Follow these instructions at home: Take xwlz-duk-fgeqwrm and prescription medicines only as told by [...] is important. Where to find more information [place] [employer]: www.cancer.org National Cancer [place] (NCI): www.cancer.gov Contact a health care provider [...] 10/18/2004 Document Revised: 09/28/2018 Document Reviewed: 09/19/2017 [facility] [facility] Patient Education 2020 [employer]. Follow Up Care 12/29/2021 09:06:11 With:RUY VALLE, AI Alejandro, URL Address: [address] [address] When: Unknown Comments:follow up after cysto with [facility] 02-09-2022 Hospital Discharge instructions Patient Education 02/09/2022 [...] cells. Follow these instructions at home: Take snca-ylh-osdfuqr and prescription medicines only as told by [...] is important. Where to find more information [place] [employer]: www.cancer.org National Cancer [place] (NCI): www.cancer.gov Contact a health care provider [...] 10/18/2004 Document Revised: 09/28/2018 Document Reviewed: 09/19/2017 [facility] [facility] Patient Education 2020 [employer]. Follow Up Care 12/29/2021 09:03:01 With:Reza JAMES, ISAIAH Mckeon, URO Address: When: Unknown [facility] 02-02-2022 Hospital Discharge instructions Patient Education 02/02/2022 [...] cells. Follow these instructions at home: Take ujki-rxl-qohqunl and prescription medicines only as told by [...] is important. Where to find more information [place] [employer]: www.cancer.org National Cancer [place] (NCI): www.cancer.gov Contact a health care provider [...] 10/18/2004 Document Revised: 09/28/2018 Document Reviewed: 09/19/2017 [employer] Patient Education 2020 [employer]. Follow Up Care 12/29/2021 09:02:14 With:Reza JAMES, ISAIAH Mckeon, URO Address: When: Unknown [facility] 01-26-2022 Hospital Discharge instructions Patient Education 01/26/2022 [...] cells. Follow these instructions at home: Take chzn-nkb-dxhongg and prescription medicines only as told by [...] is important. Where to find more information [place] [employer]: www.cancer.org National Cancer [place] (NCI): www.cancer.gov Contact a health care provider [...] 10/18/2004 Document Revised: 09/28/2018 Document Reviewed: 09/19/2017 [employer] [facility] Patient Education 2020 [employer]. Follow Up Care 12/29/2021 08:59:52 With:Dina Cobb MD, URL, URO Address: [address] [place] [address]- [phone] Business (1) When: Unknown [facility] Evaluation + Plan note Future Appointments Appointment Date:02/02/2022 08:00:00 AM Scheduled Provider:Dina Cobb MD Location:[facility] Appointment Type:URO Office Visit Appointment Date:02/09/2022 08:00:00 AM Scheduled Provider:Dina Cobb MD Location:[facility] Appointment Type:URO Office Visit Appointment Date:02/16/2022 08:00:00 AM Scheduled Provider:Dina Cobb MD Location:[facility] Appointment Type:URO Office Visit Appointment Date:02/23/2022 08:00:00 AM Scheduled Provider:Dina Cobb MD Location:[facility] Appointment Type:URO Office Visit Appointment Date:03/02/2022 09:30:00 AM Scheduled Provider:Dina Cobb MD Location:[facility] Appointment Type:URO Office Visit Appointment Date:03/17/2022 03:00:00 PM Scheduled Provider:Jeff Booth DO Location:.ONCOLOGY Appointment Type:ONC Office Visit New 30 (FT) [facility] Evaluation + Plan note Future Appointments Appointment Date:02/02/2022 08:00:00 AM Scheduled Provider:Dina Cbob MD Location:[facility] Appointment Type:URO Office Visit Appointment Date:02/09/2022 08:00:00 AM Scheduled Provider:Dina Cobb MD Location:[facility] Appointment Type:URO Office Visit Appointment Date:02/16/2022 08:00:00 AM Scheduled Provider:Dina Cobb MD Location:[facility] Appointment Type:URO Office Visit Appointment Date:02/23/2022 08:00:00 AM Scheduled Provider:Dina Cobb MD Location:[facility] Appointment Type:URO Office Visit Appointment Date:03/02/2022 09:30:00 AM Scheduled Provider:Dina Cobb MD Location:[facility] Appointment Type:URO Office Visit Appointment Date:03/17/2022 03:00:00 PM Scheduled Provider:Jeff Booth DO Location:.ONCOLOGY Appointment Type:ONC Office Visit New 30 (FT) Diagnostic Tests PendingUrine Culture 01/26/22 [facility] Evaluation + Plan note Future Appointments Appointment Date:02/09/2022 08:00:00 AM Scheduled Provider:Dina Cobb MD Location:[facility] Appointment Type:URO Office Visit Appointment Date:02/16/2022 08:00:00 AM Scheduled Provider:Dina Cobb MD Location:[facility] Appointment Type:URO Office Visit Appointment Date:02/23/2022 08:00:00 AM Scheduled Provider:Dina Cobb MD Location:[facility] Appointment Type:URO Office Visit Appointment Date:03/02/2022 09:30:00 AM Scheduled Provider:Dina Cobb MD Location:[facility] Appointment Type:URO Office Visit Appointment Date:03/17/2022 03:00:00 PM Scheduled Provider:Jeff Booth DO Location:FT.ONCOLOGY Appointment Type:ONC Office Visit New 30 (FT) [facility] Evaluation + Plan note Future Appointments Appointment Date:02/16/2022 08:00:00 AM Scheduled Provider:Dina Cobb MD Location:[facility] Appointment Type:URO Office Visit Appointment Date:02/23/2022 08:00:00 AM Scheduled Provider:Dina Cobb MD Location:[facility] Appointment Type:URO Office Visit Appointment Date:03/02/2022 09:30:00 AM Scheduled Provider:Dina Cobb MD Location:[facility] Appointment Type:URO Office Visit Appointment Date:03/17/2022 03:00:00 PM Scheduled Provider:Jeff Booth DO Location:FT.ONCOLOGY Appointment Type:ONC Office Visit New 30 (FT) [facility] Evaluation + Plan note Future Appointments Appointment Date:03/17/2022 03:00:00 PM Scheduled Provider:Jeff Booth DO Location:FT.ONCOLOGY Appointment Type:ONC Office Visit New 30 (FT) [facility] Evaluation + Plan note Future Appointments Appointment Date:03/15/2023 12:30:00 PM Scheduled Provider:Jeff Booth DO Location:FT.ONCOLOGY Appointment Type:ONC Office Visit 15 (FT) Diagnostic Tests PendingUrine Culture 03/25/22 [facility] Evaluation + Plan note Future Appointments Appointment Date:03/15/2023 12:30:00 PM Scheduled Provider:Jeff Booth DO Location:FT.ONCOLOGY Appointment Type:ONC Office Visit 15 (FT) [facility] Evaluation + Plan note Future Appointments Appointment Date:06/22/2022 10:15:00 AM Scheduled Provider:Dina Cobb MD Location:[facility] Appointment Type:URO Office Visit Appointment Date:06/29/2022 10:15:00 AM Scheduled Provider:Dina Cobb MD Location:[facility] Appointment Type:URO Office Visit Appointment Date:07/06/2022 10:15:00 AM Scheduled Provider:Dina Cobb MD Location:[facility] Appointment Type:URO Office Visit Appointment Date:03/15/2023 12:30:00 PM Scheduled Provider:Jeff Booth DO Location:.ONCOLOGY Appointment Type:ONC Office Visit 15 (FT) [facility] Evaluation + Plan note Future Appointments Appointment Date:06/29/2022 07:45:00 AM Scheduled Provider:Dina Cobb MD Location:[facility] Appointment Type:URO Office Visit Appointment Date:07/06/2022 10:15:00 AM Scheduled Provider:Dina Cobb MD Location:[facility] Appointment Type:URO Office Visit Appointment Date:03/15/2023 12:30:00 PM Scheduled Provider:Jeff Booth DO Location:FT.ONCOLOGY Appointment Type:ONC Office Visit 15 (FT) [facility] Evaluation + Plan note Future Appointments Appointment Date:07/06/2022 10:15:00 AM Scheduled Provider:Dina Cobb MD Location:[facility] Appointment Type:URO Office Visit Appointment Date:03/15/2023 12:30:00 PM Scheduled Provider:Jeff Booth DO Location:FT.ONCOLOGY Appointment Type:ONC Office Visit 15 (FT) Diagnostic Tests PendingBUN 06/29/22Creatinine 06/29/22 [facility] Evaluation + Plan note Future Appointments Appointment Date:10/19/2022 08:00:00 AM Scheduled Provider:Dina Cobb MD Location:[facility] Appointment Type:URO Office Visit Appointment Date:10/26/2022 10:30:00 AM Scheduled Provider:AI MITCHELL PA-C Location:[facility] Appointment Type:URO Office Visit Appointment Date:03/15/2023 12:30:00 PM Scheduled Provider:Jeff Booth DO Location:FT.ONCOLOGY Appointment Type:ONC Office Visit 15 (FT) [facility] Evaluation + Plan note Future Appointments Appointment Date:10/26/2022 10:30:00 AM Scheduled Provider:IA MITCHELL PA-C Location:[facility] Appointment Type:URO Office Visit Appointment Date:03/15/2023 12:30:00 PM Scheduled Provider:Jeff Booth DO Location:FT.ONCOLOGY Appointment Type:ONC Office Visit 15 (FT) [facility] Evaluation + Plan note Future Appointments Appointment Date:03/15/2023 12:30:00 PM Scheduled Provider:Jeff Booth DO Location:FT.ONCOLOGY Appointment Type:ONC Office Visit 15 (FT) Diagnostic Tests PendingUrine Culture 12/14/22 [facility] Evaluation + Plan note Future Appointments Appointment Date:04/24/2024 11:00:00 AM Scheduled Provider:Jeff Booth DO Location:FT.ONCOLOGY Appointment Type:ONC Office Visit 15 (FT) [facility] Evaluation note No assessment inform ation available [facility] Work Phone: Hospital course Narrative No data available for this section [facility] Hospital Discharge instructions No data available for this section [facility] Progress note No data available for this section [facility] [place] Summary Purpose Family History No Family [...] section and content) DATE CREATED AUTHOR 06/24/2020 [facility] DATE CREATED AUTHOR AUTHOR'S ORGANIZ ATION 09/01/2020 [facility] DATE CREATED AUTHOR AUTHOR'S ORGANIZ ATION 11/21/2020 [facility] DATE CREATED AUTHOR AUTHOR'S ORGANIZ ATION 03/09/2023 [facility] DATE CREATED AUTHOR AUTHOR'S ORGANIZ ATION 06/28/2023 [facility] DATE CREATED AUTHOR AUTHOR'S ORGANIZ ATION 08/05/2023 [facility] DATE CREATED AUTHOR AUTHOR'S ORGANIZ ATION 10/30/2023 [facility] DATE CREATED AUTHOR AUTHOR'S ORGANIZ ATION 11/16/2023 [facility] EPIC Care Team (unrecognized sect ion and content) Personnel Name: BAYRON SINGH MD Address: [address] Personnel Name: BAYRON SINGH MD Address: [address] Personnel Name: BAYRON SINGH MD Address: [address] Personnel Name: BAYRON SINGH MD Address: [address] Personnel Name: BAYRON SINGH MD Address: Address: [address] [place] [address] Personnel Name: BAYRON SINGH MD Address: Address: [address] [facility] [address] Personnel Name: BAYRON SINGH MD Address: Address: [address] [place], [place] [address] [address] Personnel Name: BAYRON SINGH MD Address: Address: [address] [place], [place] [address] [address] Personnel Name: BAYRON SINGH MD Address: Address: [address] [place], [place] [address] Personnel Name: BAYRON SINGH MD Address: Address: [address] [place], [place] [address] Thien [address] Personnel Name: BAYRON SINGH MD Address: Address: [address] [place] [address] Goals (unrecognized section and content) Goals may [...] BE BASED ON THE PRIMARY CLINICAL RECORDS. [facility] [employer] [facility]. provides no warranty or guarantee of the accuracy or completeness of information in this document.
== END 2023-12-04 08:57 | disposition home or self-care (01) ==
LOC: RAD 08:56
PROVIDERS: PCP Family Medicine; Visit Provider Orthopaedic Surgery
DX: M79.644 Pain in right finger(s) (principal)
CPT/HCPCS: 73130

== ENCOUNTER 2024-01-02 11:41 | Outpatient (OUT) | payer BC, SELFPAY ==
--- OUTSIDE RECORDS SUMMARY | 2024-01-02 11:56 | XMS_ITS | CCD ---
Author Name Unknown Address [address] [facility] [facility] [address] [place] [address] Organization [facility] Care Team Providers Care Vehicle Modification Technician Name Role Phone UNKNOWN, PROVIDER Admitting Unavailable UNKNOWN, PROVIDER Attending Unavailable SELF, REFERRED Referring Unavailable BAYRON SINGH Primary Care Unavailable BAYRON SINGH Primary Care Physician LUE ., DINA M Attending Unavailable LUE ., DINA M Admitting Unavailable LUE ., DINA M Consulting Unavailable NADERER, DR BAYRON Perez Primary Care Unavailable LUE ., DINA Sneed Attending Unavailable LUE ., DINA M Admitting Unavailable CARSON, DR SPARKLE Napoles Consulting Unavailable NADERER, DR BAYRON Perez Primary Care Unavailable LUE ., DINA Sneed Consulting Unavailable SHANTAERESolange, DR BAYRON Perez [...] Unavailable Lue, Dina M. Attending Unavailable Lue, Dian M. Attending Unavailable RUY, AI E Attending Unavailable Lue, Dina M. Attending Unavailable Lue, Dina Oconnell Attending Unavailable Lue, Dina Oconnell Attending Unavailable LueDina Attending Unavailable Lue, Dina Oconnell Attending Unavailable AdamowiczJeff Attending Unavailable Adamowicz, Jeff Admitting Unavailable Bowler, Jeannee A Admitting Unavailable Bowler, Lannettjavon A Attending Unavailable Lue, Dina Oconnell Attending Unavailable LueDina Admitting Unavailable Lue, Dina Oconnell Attending Unavailable LueDina Attending Unavailable Self, Referral Referring Unavailable Adamowicz II, Jeff J Attending Unavaila ble Adamowicz II, Jeff J Admitting Unavaila ble NadererBayron Primary Care Unavailable NADERER, BAYRON Attending Unavailable DIETER, FIRAS Admitting Unavailable DIETER, FIRAS [...] FIRAS Referring Unavailable DIETER, FIRAS Referring Unavailable Allergies Allergy Classification Reported Allergen(s) Allergy Type Date of Onset Reaction(s) Facility (19 sources) Acetaminophen / oxyCODONE; 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: [acetaminophen-ox ycodone] Drug Allergy Headache (finding) [facility] (1 source) Acetaminophen / oxyCODONE Drug Allergy 9 [facility] (1 source) Acetaminophen / oxyCODONE; 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: [OXYCODONE-ACETAM INOPHEN] Drug Allergy 3 [facility] Repository Medications Current Medications Medication Drug [...] wks, then 2x a week afterwards., [facility]/pharmacy #[id number], 163, cm, 06/22/22 8:33:00 EDT, Height/Length Dosing, 115, kg, 06/22/22 8:33:00 EDT, Weigh... Start Date: 06/22/22 Status: Ordered fluconazole 150 mg oral tablet (2 sources) Azole Antifungal Start: 12-14-2022 take 1 tablet by mouth once Diflucan 150 mg Tab 150 mg = 1 tab(s), Oral, Once, # 1 tab(s), Refills(s) 0, Pharmacy: [facility]/pharmacy #[id number], 163, cm, 10/26/22 10:27:00 EST, Height/Length [...] # 30 tab(s), Refills(s) 11, Pharmacy: [facility]/pharmacy #[id number], 163, cm, 01/04/23 8:04:00 EST, Height/Length Dosing, 115, kg, 01/04/23 8:04:00 EST, Weight Dosing Start Date: 01/04/23 Status: Ordered Start: 10-14-2022 take 1 tablet by justo th once daily Myrbetriq 50 mg oral tablet, extended release 50 mg = 1 tab(s), Oral, Daily, # 30 tab(s), Refills(s) 11, Pharmacy: [facility]/pharmacy #[id number], 163, cm, 10/12/22 8:12:00 EST, Height/Length [...] # 90 tab(s), Refills(s) 3, Pharmacy: [facility]/pharmacy #[id number], 163, cm, 05/18/22 10:12:00 EDT, Height/Length Dosing, 115, kg, 05/18/22 10:12:00 EDT, Weight Dosing Start Date: 05/18/22 Status: Ordered Start: 10-13-2021 take 1 tablet by justo th once daily Vesicare 10 mg Tab 10 mg = 1 tab(s), Oral, Daily, # 30 tab(s), Refills(s) 5, Pharmacy: [facility]/pharmacy #[id number], 163, cm, 10/13/21 9:52:00 EST, Height/Length [...] tablet day of treatment after treatment, [facility]/pharmacy #[id number], 163, cm, 05/18/22 10:12:00 EDT, Height/Length Dosing, 115, kg, 05/18/22 10:12:00 EDT, Weight Dosing Start Date: 05/18/22 Status: Ordered Start: 02-02-2022 Bactrim DS 800 mg-160 mg Tab 1 tab(s), Oral, Daily, 10 tab(s), Refill(s) 0, Prophylaxis for BCG, take day before and day of, [facility]/pharmacy #[id number], 163, cm, 02/02/22 8:04:00 EDT, Height/Length Dosing, 115, kg, 02/02/22 8:04:00 EDT, Weight Dosing Start Date: 02/02/22 Status: Ordered Start: 01-26-2022 Bactrim DS 800 mg-160 mg Tab 1 tab(s), Oral, q12hr, 2 tab(s), Refill(s) 6, [facility]/pharmacy #[id number], 163, cm, 01/26/22 8:21:00 EDT, Height/Length Dosing, 115, kg, 01/26/22 8:21:00 EDT, Weight Dosing Start Date: 01/26/22 Status: Ordered vibegron 75 MG Oral Tablet [Gemtesa] (1 source) Start: 01-05-2023 take 1 tablet by mouth once daily Gemtesa 75 mg oral tablet 75 mg = 1 tab(s), Oral, Daily, # 30 tab(s), Refills(s) 3, Pharmacy: [facility]/pharmacy #[id number], 163, cm, 01/04/23 8:04:00 EST, Height/Length [...] # 1 tab(s), Refills(s) 0, Pharmacy: [facility]/pharmacy #[id number], 163, cm, 06/22/22 8:33:00 EDT, Height/Length [...] 11-07-2022 Chronic Other aftercare (1 source) Other halfway (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; 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: [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] Onset: 12-25-2022 Episodic Other aftercare (1 source) skilled nursing (current) use of aspirin; 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: [LAND MANAGEMENT SUPERVISOR CURRENT USE OF ASPIRIN] Onset: 12-13-2022 Episodic [...] Test Name Value Interpretation Reference Range 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 CYTOLOGY - CELLULAR EXAMon 10-04-2023 LAB AP CASE REPORT Normal [facility] Comment on above: Order Comment: Via c ysto Result Comment: Non- gynecologic Cytology Case: [id number] Authorizing Provider: Lisa Zelaya MD Collected: 10/04/20231450 Ordering Location: [facility] Received: 10/04/2023 145 Urology Pathologist: Yossi Sterling MD Specimen: Bladder washing Performed By: #### L AB13 #### [facility] (BEAKER) [address] [place] [address] LAB AP CLINICAL INFORMATION Order Diagnoses [facility] Comment on above: Order Comment: Via c ysto Result Comment: C67. 4 - Malignant neoplasm of posterior wall of urinary bladder (CMS/HCC) [ICD-10-CM] Performed By: #### L AB13 #### [facility] (BEAKER) [address] [place] [address] LAB AP GROSS DESCRIPTION [facility] Comment on above: Order Comment: Via c ysto Result Comment: 14 m L clear, colorless fluid. Performed By: #### L AB13 #### [facility] (BEAKER) [address] [place] [address] LAB AP REPORT FINAL DIAGNOSIS NARRATIVE Normal [facility] Comment on above: Order Comment: Via c ysto Result Comment: Blad david washing, cytology: Negative for high-grade urothelial carcinoma. Performed By: #### L AB13 #### [facility] ([place]) [address] [place] [address] Procedure Visiton 10-04-2023 Procedure Visit [id number] Wali Bejarano ruby A 1960 [facility] Provider Department Center 10/04/2023 Moe-LISA ZELAYA [facility] Family History Problem Relation Age of Onset Hypertension Mother Family Status - Relation Status Age at Mother Level of Service:11045 [place] OFFICE/OUTPATIENT ESTABLISHED LOW MDM 20 MIN Reason for Visit and Comments: Follow-up [362682] [facility] Letter (Out)on 08-15-2023 Letter (Out) [id number] Wali Bejarano ruby A 1960 [facility] Provider Department [employer] [place] 08/15/2023 None-None [facility] C Family History Problem Relation Age of Onset Hypertension Mother Family Status - Relation Status Age at Mother [facility] Letter (Out)on 08-11-2023 Letter (Out) [id number] Wali Bejarano ruby A 1960 [facility] Provider Department [employer] [place] 08/11/2023 None-None [facility] AUTH [facility] Medical C Family History Problem Relation Age of Onset Hypertension Mother Family Status - Relation Status Age at Mother [facility] Letter (Out)on 07-07-2023 Letter (Out) [id number] Wali Bejarano ruby A 1960 [facility] Provider Department Center 07/07/2023 None-None [facility] Medical C Family History Problem Relation Age of Onset Hypertension Mother Family Status - Relation Status Age at Mother Normal [facility] Orders Onlyon 06-29-2023 Orders Only [id number] Wali Bejarano ruby A 1960 [facility] Provider Department Center 06/29/2023 Sudhakar-IVAN [facility] Family History Problem Relation Age of Onset Hypertension Mother Family Status - Relation Status Age at Mother 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 [address] LAB AP CLINICAL INFORMATION Order Diagnoses [facility] Comment on above: Order Comment: Via c ysto Result Comment: C67. 4 - Malignant neoplasm of posterior wall of urinary bladder (CMS/HCC) [ICD-10-CM] Performed By: #### L AB13 #### [facility] (BEAKER) [address] [place] [address] LAB AP GROSS DESCRIPTION [facility] Comment on above: Order Comment: Via c ysto Result Comment: 13 m L yellow, cloudy fluid Performed By: #### L AB13 #### [facility] (BEAKER) [address] [place] [address] LAB AP REPORT FINAL DIAGNOSIS NARRATIVE [facility] Comment on above: Order Comment: Via c ysto Result Comment: A. B ladder washing: - Negative for high grade urothelial carcinoma. Performed By: #### L AB13 #### [facility] (BEAKER) [address] [place] [address] Procedure Visiton 06-28-2023 Procedure Visit [id number] Wali Bejarano 1960 F Date Provider Department Center 06/28/2023 LISA JOY [facility] Family History Problem Relation Age of Onset Hypertension Mother Family Status - Relation Status Age at Mother Level of Service:42542 [place] OFFICE/OUTPATIENT ESTABLISHED LOW MDM 20-29 MIN Reason for Visit and Comments: Follow-up [013492] [facility] Operative Reporton 3 Operative Report [id number] D:127 [facility] Clinical Supporton 3 Clinical Support [id number] Wali Bejarano ruby A 1960 Provider Department Center 06/02/2023 3079-DCC ONC NURSE DCC ONC DCC Family History Problem Relation Age of Onset Hypertension Mother Family Status - Relation Status Age at Mother Normal [facility] Clinical Supporton 3 Clinical Support [id number] Wali Bejarano ruby A 1960 Date Provider Department Center 05/26/2023 3079-DCC ONC NURSE DCC ONC DCC Family History Problem Relation Age of Onset Hypertension Mother Family Status - Relation Status Age at Mother Reason for Visit and Comments: Procedure [88] - Gutierrez placement #5/6 [facility] Infusionon 05-05-2023 Infusion [id number] Wali Bejarano ruby A 1960 Provider Department Center 05/05/2023 2272-[facility] CHAIR 1 DCC INF DCC Family History Problem Relation Age of Onset Hypertension Mother Family Status - Relation Status Age at Mother Reason for Visit and Comments: Intravesicular Chemo [Other] Normal [facility] Infusionon 04-28-2023 Infusion [id number] Wali Bejarano ruby A 1960 Provider Department Center 04/28/2023 2273-[facility] CHAIR 2 DCC INF DCC No family history on file [facility] Outside Oncologyon 3 Outside Oncology [id number] CD:127 [facility] Consent for Treatmenton 03-31 Consent for Treatment [id number] D:127 [facility] Oncology Noteon 04-26-2023 Oncology Note Oncology Log Rafter Office Visit/Treatment Note Current Patient Status/Reason: Pt in for scheduled clinic visit. I accompanied Dr. Booth in room. Pt is following with urologist for bladder cancer with [facility]ist and is getting treatment at [place], with a physician there. Treatment Plan: none at this time, pt getting mammogram on left by PCP. Follow-Up Appointment Info/Referrals: F/U in 1 year. Resources Offered: Pt voiced no questions or concerns to me when I asked. Instructed pt to call with questions, concerns. Normal [facility] Comment on above: Result Comment: Elec tronically [...] 1 with ductal and lobular features, ER>95%, VT >95%, Her2 neg. Dr. Ward performed R [...] She referred to Dr. Lisa Zelaya at [facility] who repeated the biopsy and was negative [...] Problems Abnormal urinary stream / SNOMED CT 045777608 / Confirmed Vaginal atrophy / SNOMED CT 396640986 / Confirmed BMI 40.0-44.9, adult / SNOMED CT 1416540032 / Confirmed Former smoker / SNOMED CT 80806728 / Confirmed History of UTI / SNOMED CT 1258034230 / Confirmed Mixed incontinence / SNOMED CT 84742272 / Confirmed Enterococcus faecalis infection / SNOMED CT 0639676443 / Confirmed Urothelial carcinoma of bladder / SNOMED CT 180837887 / Confirmed Bladder cancer / SNOMED CT 243539341 / Confirmed OAB (overactive bladder) / SNOMED CT 4606281827 / Confirmed Urinary tract infection / SNOMED CT 001673673 / Confirmed Canceled: Bladder cancer / SNOMED CT 9975850844 Canceled: Microhematuria / SNOMED CT 292711085 Histories Past Medical History: No active or resolved past medical history items have been selected or recorded. Family History: Hypertension Father Mother Brother Anemia Father Arthritis Father Mother Prostate cancer Brother Procedure history: Cystoscopy and biopsy of bladder (8143819089) on 03/13/2023 at 62 Years. Comments: 03/16/2023 12:36 Roxana Fernando BLUE LIGHT CYSTOSCOPY Cystoscopy and transurethral resection of bladder tumor (3990643319) on 12/28/2022 at 62 Years. Comments: 01/04/2023 13:04 Roxana Garrison random bladder biopsies, BL ureteral washing Cystoscopy (72962430) on 12/07/2022 at 62 Years. Cystoscopy and transurethral resection of bladder tumor (4376180505) on 12/22/2021 at 61 Years. TURBT - Transurethral resection of bladder tumor (9195458382) on 07/26/2021 at 61 Years. Cystoscope (23827420) on 07/14/2021 at 61 Years. Breast surgery (8598652379). History of hysterectomy. (5154077498). Cholecystectomy (20151687). Ts - Tonsillectomy (608255203). Bilateral prosthetic arthroplasty of knees (1620793000). Social History Social & Psychosocial Habits Alcohol 07/07/2021 Risk Assessm (more content not included)... Normal [facility] Orders Onlyon 04-07-2023 Orders Only [id number] Wali Bejarano 1960 F Date Provider Department Center 04/07/2023 1644-LETI SCHAEFER [facility] INF DCC No family history on file Normal [facility] Telemedicineon 04-04-2023 Telemedicine [id number] Wali Bejarano A 1960 F Date Provider Department Center 04/04/2023 397-LISA ZELAYA [facility] ONC DCC No family history on file Level of Service:21353 [place] PHYS/QHP TELEPHONE EVALUATION 21-30 MIN Reason for Visit and Comments: Follow-up [351451] - Pathology results Normal [facility] Follow-Upon 03-28-2023 Follow-Up [id number] Wali Bejarano 1960 F Date Provider Department Center 03/28/2023 397-LISA ZELAYA ONC DCC No family history on file Level of Service:36106 [place] OFFICE/OUTPATIENT ESTABLISHED HIGH MDM 40-54 MIN Reason for Visit and Comments: Follow-up [851744] - Cysto results Normal [facility] PATH CONSULTon 03-28-2023 LAB AP [facility] REPORT [facility] Comment on above: Result Comment: PATH OLOGY CONSULT Case: [id number] Authorizing Provider: Lisa Zelaya MD Collected: 03/28/2023 1439 Ordering Location: [facility] Received: 03/28/2023 1441 Pathologist: Adelita Peralta MD Specimens: A) - Urine, Cytology B) - Ureteral washing, Right, Thin Prep C) - Ureteral washing, Left, Thin Prep Performed By: #### P ATH CONSULT ####[facility] (AKER)[address] [place] [address] LAB AP CLINICAL INFORMATION Bladder cancer Normal [facility] Comment on above: Performed By: #### P ATH CONSULT ####[facility] ([facility])[address] [place] [address] LAB AP DIAGNOSIS COMMENT Normal [facility] Comment on above: Result Comment: A. T he specimen is extremely hypocellular and is limited by scant material. B. The specimen is essentially acellular. C. The specimen is extremely hypocellular and is limited by scant material. Performed By: #### P ATH CONSULT ####[facility] ([facility])[address] [place] [address] LAB AP GROSS DESCRIPTION A. Urine. Normal [facility] Comment on above: Result Comment: Rece ived from [facility], [address] [place] [address], is one (1) previously stained glass slide accessioned [id number], collected on 12-07-22. The slide is accompanied by a copy of the contributing pathologists??? report. B. Ureteral washing. Received from [facility], [place] [address], is one (1) previously stained glass slide accessioned [id number], collected on 12-28-22. The slide is accompanied by a copy of the contributing pathologists??? report. C. Ureteral washing. Received from [facility], [address] [place] [address], is one (1) previously stained glass slide accessioned [id number], collected on 12-28-22. The slide is accompanied by a copy of the contributing pathologists??? report. Performed By: #### P ATH CONSULT ####[facility] (BEAKER)[address] [place] [address] LAB AP REPORT FINAL DIAGNOSIS NARRATIVE [facility] Comment on above: Result Comment: A. U rine, cytology ([id number], 1 slide, collected on 12-07-22): - Rare atypical urothelial cells present (see comment) B. Right ureteral washing, cytology (OSS#[id number], 1 slide, collected on 12-28-22): - Non-diagnostic (see comment) C. Left ureteral washing, cytology (OSS#[id number], 1 slide, collected on 12-28-22) - Non-diagnostic (see comment) Performed By: #### P ATH CONSULT ####[facility] (BEAKER)[address] [place] [address] LAB AP CASE REPORT Normal [facility] Comment on above: Result Comment: PATH OLOGY CONSULT Case: [id number] Authorizing Provider: Lisa Zelaya MD Collected: 03/28/2023 1418 Ordering Location: [facility] Received: 03/28/2023 1420 Pathologist: Kari Marte MD Specimens: A) - Soft Tissue, Left lateral bladder wall biopsy B) - Soft Tissue, Bladder dome biopsy C) - Soft Tissue, Right lateral bladder wall biopsy D) - Soft Tissue, Right posterior bladder wall biopsy Performed By: #### P ATH CONSULT #### [facility] (BEAKER) [address] [place] [address] LAB AP CLINICAL INFORMATION Bladder Cancer [facility] Comment on above: Performed By: #### P ATH CONSULT #### [facility] ([facility]) [address] [place] [address] LAB AP GROSS DESCRIPTION A. Soft Tissue. [facility] Comment on above: Result Comment: Rece ived from [facility], [address] [place] [address], are five (5) previously stained glass slides accessioned [id number], collected on 12-28-22. The slides are accompanied by a copy of the contributing pathologists??? report. B. Soft Tissue. Received from [facility], [address] [place] [address], are two (2) previously stained glass slides accessioned [id number], collected on 12-28-22. The slides are accompanied by a copy of the contributing pathologists??? report. C. Soft Tissue. Received from [facility], [address] [place] [address], are two (2) previously stained glass slides accessioned [id number], collected on 12-28-22. The slides are accompanied by a copy of the contributing pathologists??? report. D. Soft Tissue. Received from [facility], [address] [place] [address], are five (5) previously stained glass slides accessioned [id number], collected on 12-28-22. The slides are accompanied by a copy of the contributing pathologists??? report. Performed By: #### P ATH CONSULT #### [facility] ([facility]) [address] [place] [address] LAB AP REPORT FINAL DIAGNOSIS NARRATIVE [facility] Comment on above: Result Comment: A. L eft lateral bladder wall biopsy ([id number], 5 slides, collected on 12-28-22): - Denuded urothelium; negative for carcinoma. - Muscularis propria present; negative for carcinoma. B. Bladder dome biopsy (OSS#[id number], 2 slides, collected on 12-28-22): - Benign urothelial mucosa; negative for carcinoma. - No muscularis propria present. C. Right lateral bladder wall, biopsy (OSS#[id number], 2 slides, collected on 12-28-22): - Benign urothelial mucosa; negative for carcinoma. - Muscularis propria present; negative for carcinoma. D. Right posterior bladder wall, biopsy (OSS#[id number], 5 slides, collected on 12-28-22): - Urothelial mucosa with very minute focus of carcinoma in situ. - Muscularis propria present; negative for carcinoma. Performed By: #### P ATH CONSULT #### [facility] (BEAKER) [address] [place] [address] [facility] (Inserted Image. Lindsay ble to display) March 21, 2023 DANIELLA BEJARANO [address] [place] [id number] : 1960 To whom it may concern, This patient is currently under the care of Dr. Dina Cobb MD at [facility]. We are requesting any and all information regarding her recent surgery she had performed at [facility]. Surgery reports, and any pathology/imaging reports are highly requested to be sent to our office for our records. Please fax any relevant information to our office at [phone]. If you have any questions please feel free to call our office at [phone]. Thank you [facility] [address] [place] [address] Normal [facility] Pathology Noteon 03-18-2023 Pathology Note [id number] D:127 Normal [facility] Reminderson 03-18-2023 Reminders - From: Roxana Lindsey To: [facility] - Recalls Lue; Sent: 01/05/2023 15:34:58 EST Show up: 01/05/2023 15:35:00 EST Subject: appt with Dr Booth Due Date/Time: 01/28/2023 15:35:00 EDT Reminder/Recall Patient will need seen by Dr Booth after blue light cystoscopy is completed at [facility] with Dr Zelaya appt with Dr Zelaya [...] there is another message in about this. [facility] Orders Onlyon 03-16-2023 Orders Only [id number] Wali Bejarano ruby Perez 1960 F Date Provider Department Center 03/16/2023 STEFAN GRAY [facility] No family history on file [facility] HISTOLOGY - TISSUE EXAMon LAB AP ASR [...] the Clinical Laboratory Improvement Amendments of 1998. [facility] Comment on above: Order Comment: Pre-o p diagnosis: Malignant neoplasm of posterior wall of urinary bladder (CMS/HCC) [C67.4] Performed By: #### L [id number] #### [facility] ([facility]) [address] [place] [address] LAB AP CASE REPORT Normal [facility] Comment on above: Order Comment: Pre-o p diagnosis: Malignant neoplasm of posterior wall of urinary bladder (CMS/HCC) [C67.4] Result Comment: Surg ical Pathology Case: [id number] Authorizing Provider: Lisa Zelaya MD Collected: 03/13/2023 08 Ordering Location: [facility] Main Operating Room Received: 03/13/2023 0904 Pathologist: Kari Marte MD Specimens: A) - Urinary Bladder, 2. right lateral wall bladder lesion, R/O carcinoma in situ B) - Urinary Bladder, right posterior wall bladder lesion R/O carcinoma in CIS C) - Urinary Bladder, left anterior wall bladder lesion R/O carcinoma is situ Performed By: #### L [id number] #### [facility] ([facility]) [address] [place] [address] LAB AP CLINICAL INFORMATION [facility] Comment on above: Order Comment: Pre-o p diagnosis: Malignant neoplasm of posterior wall of urinary bladder (CMS/HCC) [C67.4] Result Comment: Post -Op Diagnoses C67.4 - Malignant neoplasm of posterior wall of urinary bladder (CMS/HCC) [ICD-10-CM] Performed By: #### L [id number] #### [facility] ([facility]) [address] [place] [address] LAB AP DIAGNOSIS COMMENT A-C. CK20 immunostain shows positive staining in only the most superficial cells of the urothelial epithelium; this pattern is consistent with the above diagnoses. Normal [facility] Comment on above: Order Comment: Pre-o p diagnosis: Malignant neoplasm of posterior wall of urinary bladder (CMS/HCC) [C67.4] Performed By: #### L [id number] #### [facility] ([facility]) [address] [place] [address] LAB AP GROSS DESCRIPTION [facility] Comment on above: Order Comment: Pre-o p [...] submitted in 1 cassette. Yossi Hardin, Pathologists' Cosmetologist Apprentice B. Urinary Bladder. Received in formalin , labeled Daniella Wallsrmario, right posterior wall bladder lesion R/O carcinoma in CIS . It consists of a 0.5 x 0.3 x 0.2 cm irregular rankin soft fragment of tissue. The specimen is entirely submitted in 1 cassette. Yossi Hardin, Pathologists' Cosmetologist Apprentice C. Urinary Bladder. Received in formalin , labeled Daniella Wallsrk, left anterior wall bladder lesion R/O carcinoma is situ . It consists of 4 white to pale-rankin soft fragments, 0.4-0.5 cm in greatest dimension and 0.8 x 0.7 x 0.2 cm in aggregate. The specimen is entirely submitted in 1 cassette. Portions of the specimen not survive processing. Yossi Hardin Pathologists' Cosmetologist Apprentice Performed By: #### L [id number] #### [facility] (AKER) [address] [place] [address] LAB AP MICROSCOPIC DESCRIPTION Microscopic examination performed. 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 Performed By: #### L [id number] #### [facility] (BEAKER) [address] [place] [address] HPon 03-13-2023 HP --- Attestation signed by Lisa Zelaya MD at 03/13/2023 7:31 AM Saw Ms Bejarano explained procedure, informed consent confirmed. Lisa Zelaya MD, FACS Study Lead of Urology Chief of Urologic Oncology Ross Garcia Endowed Chair [address] [place] [address]. Mail [address] [place], [place] [address] [facility] [phone] fax H&P reviewed. The patient was examined and there are no changes to the H&P. 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 bladder wash for cytology Performed By: #### L [id number] #### [facility] (BEAKER) [address] [place] [address] LAB AP CLINICAL INFORMATION [facility] Comment on above: Order Comment: Pre-o p diagnosis: Malignant neoplasm of posterior wall of urinary bladder (CMS/HCC) [C67.4] Result Comment: Post -Op Diagnoses C67.4 - Malignant neoplasm of posterior wall of urinary bladder (CMS/HCC) [ICD-10-CM] Performed By: #### L [id number] #### [facility] (BEAKER) [address] [place] [address] LAB AP DIAGNOSIS COMMENT Normal [facility] Comment on above: Order Comment: Pre-o p diagnosis: Malignant neoplasm of posterior wall of urinary bladder (CMS/HCC) [C67.4] Result Comment: See also concurrent biopsy, [id number]. Performed By: #### L [id number] #### [facility] (BEAKER) [address] [place] [address] LAB AP GROSS DESCRIPTION [facility] Comment on above: Order Comment: Pre-o p diagnosis: Malignant neoplasm of posterior wall of urinary bladder (CMS/HCC) [C67.4] Result Comment: 80 m L yellow, cloudy fluid Performed By: #### L [id number] #### [facility] (BEAKER) [address] [place] [address] LAB AP REPORT FINAL DIAGNOSIS NARRATIVE Normal [facility] Comment on above: Order Comment: Pre-o p diagnosis: Malignant neoplasm of posterior wall of urinary bladder (CMS/HCC) [C67.4] Result Comment: A. B ladder washing: - Rare atypical urothelial cells Performed By: #### L [id number] #### [facility] (BEAKER) [address] [place] [address] NURSNOTEon 03-13-2023 NURSNOTE Pt with cont pain/bladder spasm. Notified Dr Barraza. Order for [place] and given orally due to IV Dc'd after infiltrate. Taken with crackers to avoid stomach upset. Pt cont with Scopalamine patch behind left ear. Instructions given for removal. Normal [facility] NURSNOTE Reviewed DC instructions with patient [...] in place draining clear yellow urine. Normal [facility] OPNOTEon 03-13-2023 OPNOTE --- Attestation with [...] performed entire procedure. Lisa Zelaya MD, FACS Study Lead of Urology Chief of Urologic Oncology Ross Garcia Endowed Chair [address] [facility]. 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 Pathology revealed high-grade noninvasive paper supervisor, muscularis propria present and uninvolved. - 01/26/2022: [...] posterior bladde (more content not included)... Normal [facility] POCT GLUCOSE METER UNSOLICIT ED RESULTSon 03-13-2023 Glucose [Mass/Vol] 99 mg/dL Normal 70-105 [facility] Comment on above: Result Comment: pbar retcorson Performed By: #### L [id number] #### [facility] (BEAKER) [address] [place] [address] Orders Onlyon 03-10-2023 Orders Only [id number] Wali Bejarano A 1960 F Date Provider Department Center 03/10/2023 [id number], HISTORICAL [facility] No family history on file Normal [facility] Outside Labson 03-10-2023 Outside Labs [id number]#1.00 CD:127 Normal [facility] Outside Pathology Reporton 0 03-10-2023 Outside Pathology Report [id number]#1.00 CD:127 Normal [facility] Outside Radiologyon 03-10-20 Outside Radiology [id number] [id number]#1.00 CD:127 Normal [facility] Consultation Noteon 03-09-20 Consultation Note [id number]#1.00C D:127 Normal [facility] Orders Onlyon 03-09-2023 Orders Only [id number] Wali Bejarano A 1960 F Date Provider Department Center 03/09/2023 MENA VILLAFUERTE [facility] Medical C No family history on file Normal [facility] Pathology Noteon 03-09-2023 Pathology Note [id number]#1.00C D:127 Normal [facility] CBC AUTO DIFFon 03-06-2023 BASO # 0.1 103/ul Normal 0.0-0.1 [facility] Comment on above: Performed By: #### C YTO #### [facility] [address] [place] [address] Dr. Troy Jeter Basophils/100 WBC (Bld) 1.1 % Normal 0.2-2.0 [facility] Comment on above: Performed By: #### C YTO #### [facility] [address] [place] [address] Dr. Troy Jeter EO # 0.2 103/ul Normal 0.0-0.7 [facility] Comment on above: Performed By: #### C YTO #### [facility] [address] [place] [address] Dr. Troy Jeter Eosinophils/100 WBC (Bld) 2.8 % Normal 0.9-7.0 [facility] Comment on above: Performed By: #### C YTO #### [facility] [address] [place] [address] Dr. Troy Jeter Erythrocyte distribution width (RBC) [Ratio] 15.1 % Critically high 11.0-15.0 [facility] Comment on above: Performed By: #### C YTO #### [facility] [address] [place] [address] Dr. Troy Jeter Hematocrit (Bld) [Volume fraction] 39.7 % Normal 36.0-48.0 [facility] Comment on above: Performed By: #### C YTO #### [facility] [address] [place] [address] Dr. Troy Jeter Hemoglobin (Bld) [Mass/Vol] 12.3 g/dL Normal 12.0-16.0 [facility] Comment on above: Performed By: #### C YTO #### [facility] [address] [place] [address] Dr. Troy Jeter IG # 0.02 10e3/ul Normal 0.00-0.03 [facility] Comment on above: Performed By: #### C YTO #### [facility] [address] [place] [address] Dr. Troy Jeter IG % 0.4 % Normal 0.0-0.5 [facility] Comment on above: Performed By: #### C YTO #### [facility] [address] [place] [address] [address] Troy Jeter LYMPH # 1.3 103/ul Normal 1.2-3.8 [facility] Comment on above: Performed By: #### C YTO #### [facility] [address] [address] [address] Troy Jeter Lymphocytes/100 WBC (Bld) 22.0 % Normal 20.5-60.0 [facility] Comment on above: Performed By: #### C YTO #### [facility] [address] [address] [address] Troy Jeter MANUAL DIFF REQ NO Normal [facility] Comment on above: Performed By: #### C YTO #### [facility] [address] [place] [address] Dr. Troy Jeter MCH (RBC) [Entitic mass] 25.5 pg Critically low 26.7-34.0 [facility] Comment on above: Performed By: #### C YTO #### [facility] [address] [place] [address] Dr. Troy Jeter MCHC (RBC) [Mass/Vol] 31.0 g/dL Normal 29.9-35.2 [facility] Comment on above: Performed By: #### C YTO #### [facility] [address] [place] [address] Dr. Troy Jeter MCV (RBC) [Entitic vol] 82.2 fL Normal 81.0-99.0 [facility] Comment on above: Performed By: #### C YTO #### [facility] [address] [place] [address] Dr. Troy Jeter MONO # 0.5 103/ul Normal 0.3-0.8 [facility] Comment on above: Performed By: #### C YTO #### [facility] [address] [place] [address] Dr. Troy Jeter Monocytes/100 WBC (Bld) 8.6 % Normal 1.7-12.0 [facility] Comment on above: Performed By: #### C YTO #### [facility] [address] [place] [address] Dr. Troy Jeter NEUT # 3.7 103/ul Normal 1.4-6.5 [facility] Comment on above: Performed By: #### C YTO #### [facility] [address] [place] [address] Dr. Troy Jeter Neutrophils/100 WBC (Bld) 65.1 % Normal 43.0-75.0 [facility] Comment on above: Performed By: #### C YTO #### [facility] [address] [place] [address] Dr. Troy Jeter Platelet mean volume (Bld) [Entitic vol] 9.0 fL Critically low 9.5-13.5 [facility] Comment on above: Performed By: #### C YTO #### [facility] [address] [place] [address] Dr. Troy Jeter PLT 211 103/ul Normal 150-450 [facility] Comment on above: Performed By: #### C YTO #### [facility] [address] [place] [address] Dr. Troy Jeter RBC 4.83 106/ul Normal 4.20-5.40 [facility] Comment on above: Performed By: #### C YTO #### [facility] [address] [place] [address] Dr. Troy Jeter WBC 5.7 103/ul Normal 4.0-11.0 [facility] Comment on above: Performed By: #### C YTO #### [facility] [address] [place] [address] Dr. Troy Jeter PROF 14(COMP METB)on 023 Albumin [Mass/Vol] 3.4 g/dL Normal 3.4-5.0 [facility] Comment on above: Performed By: #### C BC #### [facility] [address] [place] [address] Dr. Troy Jeter Albumin/Globulin [Mass ratio] 0.9 {ratio} Normal [facility] Comment on above: Performed By: #### C BC #### [facility] [address] [address] [address] Troy Jeter ALP [Catalytic activity/Vol] 94 U/L Normal 46-116 [facility] Comment on above: Performed By: #### C BC #### [facility] [address] [address] [address] Troy Jeter ALT [Catalytic activity/Vol] 61 U/L Critically high 14-59 [facility] Comment on above: Performed By: #### C BC #### [facility] [address] [address] [address] Troy Jeter Anion gap [Moles/Vol] 11.6 mmol/L Normal [facility] Comment on above: Performed By: #### C BC #### [facility] [address] [place] [address] Dr. Troy Jeter AST [Catalytic activity/Vol] 48 U/L Critically high 15-37 [facility] Comment on above: Performed By: #### C BC #### [facility] [address] [place] [address] Dr. Troy Jeter Bilirubin [Mass/Vol] 0.3 mg/dL Normal 0.2-1.0 [facility] Comment on above: Performed By: #### C BC #### [facility] [address] [place] [address] Dr. Troy Jeter Calcium [Mass/Vol] 9.3 mg/dL Normal 8.5-10.1 [facility] Comment on above: Performed By: #### C BC #### [facility] [address] [place] [address] Dr. Troy Jeter Chloride [Moles/Vol] 106 mmol/L Normal 98-107 [facility] Comment on above: Performed By: #### C BC #### [facility] [address] [address] [address] Troy Jeter CO2 [Moles/Vol] 25.4 mmol/L Normal 21.0-32.0 [facility] [place] [facility] Comment on above: Performed By: #### C BC #### [facility] [address] [place] [address] Dr. Troy Jeter Creatinine [Mass/Vol] 1.06 mg/dL Critically high 0.55-1.02 [facility] Comment on above: Performed By: #### C BC #### [facility] [address] [place] [address] Dr. Troy Jeter EGFR-AF SWAZI >60 Normal >=60 [facility] Comment on above: Performed By: #### C BC #### [facility] [address] [address] [address] Troy Jeter EGFR-NON AF SWAZI 52 mL/min/1.73m2 Critically low >=60 [facility] Comment on above: Performed By: #### C BC #### [facility] [address] [place] [address] Dr. Troy Jeter Globulin (S) [Mass/Vol] 4.0 g/dL Normal [facility] Comment on above: Performed By: #### C BC #### [facility] [address] [place] [address] Dr. Troy Jeter Glucose [Mass/Vol] 132 mg/dL Critically high 74-106 [facility] Comment on above: Performed By: #### C BC #### [facility] [address] [place] [address] Dr. Troy Jeter Potassium [Moles/Vol] 4.0 mmol/L Normal 3.5-5.1 [facility] Comment on above: Performed By: #### C BC #### [facility] [address] [place] [address] Dr. Troy Jeter Protein [Mass/Vol] 7.4 g/dL Normal 6.4-8.2 [facility] Comment on above: Performed By: #### C BC #### [facility] [address] [place] [address] Dr. Troy Jeter Sodium [Moles/Vol] 139 mmol/L Normal 136-145 [facility] Comment on above: Performed By: #### C BC #### [facility] [address] [place] [address] Dr. Troy Jeter Urea nitrogen [Mass/Vol] 16.0 mg/dL Normal 7.0-18.0 [facility] Comment on above: Performed By: #### C BC #### [facility] [address] [place] [address] Dr. Troy Jeter Urea nitrogen/Creatinine [Mass ratio] 15.1 mg/mg Normal [facility] Comment on above: Performed By: #### C BC #### [facility] [address] [place] [address] Dr. Troy Jeter CBC AUTO DIFFon 03-02-2023 BASO # 0.1 103/ul Normal 0.0-0.1 [facility] Comment on above: Performed By: #### C YTO #### [facility] [address] [place] [address] Dr. Troy Jeter Basophils/100 WBC (Bld) 0.9 % Normal 0.2-2.0 [facility] Comment on above: Performed By: #### C YTO #### [facility] [address] [place] [address] Dr. Troy Jeter EO # 0.2 103/ul Normal 0.0-0.7 [facility] Comment on above: Performed By: #### C YTO #### [facility] [address] [place] [address] Dr. Troy Jeter Eosinophils/100 WBC (Bld) 2.9 % Normal 0.9-7.0 [facility] Comment on above: Performed By: #### C YTO #### [facility] [address] [place] [address] Dr. Troy Jeter Erythrocyte distribution width (RBC) [Ratio] 15.3 % Critically high 11.0-15.0 [facility] Comment on above: Performed By: #### C YTO #### [facility] [address] [place] [address] Dr. Troy Jeter Hematocrit (Bld) [Volume fraction] 36.8 % Normal 36.0-48.0 [facility] Comment on above: Performed By: #### C YTO #### [facility] [address] [place] [address] Dr. Troy Jeter Hemoglobin (Bld) [Mass/Vol] 11.5 g/dL Critically low 12.0-16.0 [facility] Comment on above: Performed By: #### C YTO #### [facility] [address] [place] [address] Dr. Troy Jeter IG # 0.02 10e3/ul Normal 0.00-0.03 [facility] Comment on above: Performed By: #### C YTO #### [facility] [address] [place] [address] Dr. Troy Jeter IG % 0.3 % Normal 0.0-0.5 [facility] Comment on above: Performed By: #### C YTO #### [facility] [address] [place] [address] Dr. Troy Jeter LYMPH # 1.5 103/ul Normal 1.2-3.8 [facility] Comment on above: Performed By: #### C YTO #### [facility] [address] [place] [address] Dr. Troy Jeter Lymphocytes/100 WBC (Bld) 24.8 % Normal 20.5-60.0 [facility] Comment on above: Performed By: #### C YTO #### [facility] [address] [place] [address] Dr. Troy Jeter MANUAL DIFF REQ NO Normal [facility] Comment on above: Performed By: #### C YTO #### [facility] [address] [place] [address] Dr. Troy Jeter MCH (RBC) [Entitic mass] 25.4 pg Critically low 26.7-34.0 [facility] Comment on above: Performed By: #### C YTO #### [facility] [address] [place] [address] Dr. Troy Jeter MCHC (RBC) [Mass/Vol] 31.3 g/dL Normal 29.9-35.2 [facility] Comment on above: Performed By: #### C YTO #### [facility] [address] [place] [address] Dr. Troy Jeter MCV (RBC) [Entitic vol] 81.4 fL Normal 81.0-99.0 [facility] Comment on above: Performed By: #### C YTO #### [facility] [address] [place] [address] Dr. Troy Jeter MONO # 0.5 103/ul Normal 0.3-0.8 [facility] Comment on above: Performed By: #### C YTO #### [facility] [address] [place] [address] Dr. Troy Jeter Monocytes/100 WBC (Bld) 8.4 % Normal 1.7-12.0 [facility] Comment on above: Performed By: #### C YTO #### [facility] [address] [place] [address] Dr. Troy Jeter NEUT # 3.7 103/ul Normal 1.4-6.5 [facility] Comment on above: Performed By: #### C YTO #### [facility] [address] [place] [address] Dr. Troy Jeter Neutrophils/100 WBC (Bld) 62.7 % Normal 43.0-75.0 [facility] Comment on above: Performed By: #### C YTO #### [facility] [address] [place] [address] Dr. Troy Jeter Platelet mean volume (Bld) [Entitic vol] 9.2 fL Critically low 9.5-13.5 [facility] Comment on above: Performed By: #### C YTO #### [facility] [address] [place] [address] Dr. Troy Jeter PLT 193 103/ul Normal 150-450 [facility] Comment on above: Performed By: #### C YTO #### [facility] [address] [place] [address] Dr. Troy Jeter RBC 4.52 106/ul Normal 4.20-5.40 [facility] Comment on above: Performed By: #### C YTO #### [facility] [address] [place] [address] Dr. Troy Jeter WBC 5.9 103/ul Normal 4.0-11.0 [facility] Comment on above: Performed By: #### C YTO #### [facility] [address] [place] [address] Dr. Troy Jeter GLYCOHEMOGLOBIN A1Con 2022 ADA RECOMMENDATION SEE BELOW Normal [facility] Comment on above: Result Comment: ADA RECOMMENDED LIMIT 4.0 - 6.0 ADA THERAPEUTIC TARGET < 7.0 ACTION SUGGESTED > 7.0 Performed By: #### C BC #### [facility] [address] [place] [address] Dr. Troy Jeter Glucose [Mass/Vol] 123 mg/dL Normal [facility] Comment on above: Performed By: #### C BC #### [facility] [address] [place] [address] Dr. Troy Jeter HbA1c (Bld) [Mass fraction] 5.9 % Normal 4.5-6.2 [facility] Comment on above: Performed By: #### C BC #### [facility] [address] [place] [address] Dr. Troy Jeter LIPID PROFILEon 03-02-2023 CHOL-HDL RATIO NORM SEE BELOW Normal [facility] [place] Comment on above: Result Comment: 3.3 - 4.4 LOW RISK 4.4 - 7.1 AVERAGE RISK 7.1 - 11.0 MODERATE RISK >11.0 HIGH RISK Performed By: #### C YTO #### [facility] [address] [place] [address] Dr. Troy Jeter Cholesterol [Mass/Vol] 156 mg/dL Normal <=200 [facility] Comment on above: Performed By: #### C YTO #### [facility] [address] [address] [address] Troy Jeter Cholesterol in HDL [Mass/Vol] 64 mg/dL Critically high 40-60 [facility] Comment on above: Performed By: #### C YTO #### [facility] [address] [place] [address] Dr. Troy Jeter Cholesterol in LDL [Mass/Vol] 76.4 mg/dL Normal [facility] Comment on above: Performed By: #### C YTO #### [facility] [address] [address] [address] Troy Jeter Cholesterol.total/Ch olesterol in HDL [Mass ratio] 2.4 {ratio} Normal [facility] Comment on above: Performed By: #### C YTO #### [facility] [address] [address] [address] Troy Jeter HDL NORMAL > or = 60 mg/dl - LO W CARDIOVASCULAR RISK <40 mg/dl - HIGH CARDIOVASCULAR RISK Normal [facility] Comment on above: Performed By: #### C YTO #### [facility] [address] [address] Dr. Troy Jeter LDL CALC NORMAL SEE BELOW Normal [facility] Comment on above: Result Comment: <100 mg/dl OPTIMAL 100 - 129 mg/dl NEAR OR ABOVE OPTIMAL 130 - 159 mg/dl BORDERLINE HIGH 160 - 189 mg/dl HIGH >190 mg/dl VERY HIGH Performed By: #### C YTO #### [facility] [address] [place] [address] Dr. Troy Jeter Triglyceride [Mass/Vol] 78 mg/dL Normal <=150 [facility] Comment on above: Performed By: #### C YTO #### [facility] [address] [place] [address] Dr. Troy Jeter VLDL CALC 15.6 mg/dL Normal [facility] Comment on above: Performed By: #### C YTO #### [facility] [address] [address] [address] Troy Jeter PROF 14(COMP METB)on 023 Albumin [Mass/Vol] 3.2 g/dL Critically low 3.4-5.0 [facility] Comment on above: Performed By: #### C YTO #### [facility] [address] [place] [address] Dr. Troy Jeter Albumin/Globulin [Mass ratio] 0.8 {ratio} Normal [facility] Comment on above: Performed By: #### C YTO #### [facility] [address] [address] [address] Troy Jeter ALP [Catalytic activity/Vol] 90 U/L Normal 46-116 [facility] Comment on above: Performed By: #### C YTO #### [facility] [address] [place] [address] Dr. Troy Jeter ALT [Catalytic activity/Vol] 58 U/L Normal 14-59 [facility] Comment on above: Performed By: #### C YTO #### [facility] [address] [place] [address] Dr. Troy Jeter Anion gap [Moles/Vol] 10.5 mmol/L Normal [facility] Comment on above: Performed By: #### C YTO #### [facility] [address] [place] [address] Dr. Tryo Jeter AST [Catalytic activity/Vol] 40 U/L Critically high 15-37 [facility] Comment on above: Performed By: #### C YTO #### [facility] [address] [place] [address] Dr. Troy Jeter Bilirubin [Mass/Vol] 0.3 mg/dL Normal 0.2-1.0 [facility] Comment on above: Performed By: #### C YTO #### [facility] [address] [place] [address] Dr. Troy Jeter Calcium [Mass/Vol] 9.1 mg/dL Normal 8.5-10.1 [facility] Comment on above: Performed By: #### C YTO #### [facility] [address] [place] [address] Dr. Troy Jeter Chloride [Moles/Vol] 106 mmol/L Normal 98-107 [facility] Comment on above: Performed By: #### C YTO #### [facility] [address] [place] [address] Dr. Troy Jeter CO2 [Moles/Vol] 27.6 mmol/L Normal 21.0-32.0 [facility] Comment on above: Performed By: #### C YTO #### [facility] [address] [place] [address] Dr. Troy Jeter Creatinine [Mass/Vol] 1.01 mg/dL Normal 0.55-1.02 [facility] Comment on above: Performed By: #### C YTO #### [facility] [address] [address] [address] Troy Jeter EGFR-AF SWAZI >60 Normal >=60 [facility] Comment on above: Performed By: #### C YTO #### [facility] [address] [address] [address] Troy Jeter EGFR-NON AF SWAZI 55 mL/min/1.73m2 Critically low >=60 [facility] Comment on above: Performed By: #### C YTO #### [facility] [address] [place] [address] Dr. Troy Jeter Globulin (S) [Mass/Vol] 3.9 g/dL Normal [facility] Comment on above: Performed By: #### C YTO #### [facility] [address] [place] [address] Dr. Troy Jeter Glucose [Mass/Vol] 112 mg/dL Critically high 74-106 [facility] Comment on above: Performed By: #### C YTO #### [facility] [address] [place] [address] Dr. Troy Jeter Potassium [Moles/Vol] 4.1 mmol/L Normal 3.5-5.1 [facility] Comment on above: Performed By: #### C YTO #### [facility] [address] [place] [address] Dr. Troy Jeter Protein [Mass/Vol] 7.1 g/dL Normal 6.4-8.2 [facility] Comment on above: Performed By: #### C YTO #### [facility] [address] [place] [address] Dr. Troy Jeter Sodium [Moles/Vol] 140 mmol/L Normal 136-145 [facility] Comment on above: Performed By: #### C YTO #### [facility] [address] [place] [address] Dr. Troy Jeter Urea nitrogen [Mass/Vol] 14.0 mg/dL Normal 7.0-18.0 [facility] Comment on above: Performed By: #### C YTO #### [facility] [address] [address] [address] Troy Jeter Urea nitrogen/Creatinine [Mass ratio] 13.9 mg/mg Normal [facility] Comment on above: Performed By: #### C YTO #### [facility] [address] [address] [address] Troy Jeter TSHon 03-02-2023 TSH 3.047 uIU/mL Normal 0.358-3.740 [facility] Comment on above: Performed By: #### C YTO #### [facility] [address] [address] [address] Troy Jeter Orders Onlyon 02-28-2023 Orders Only [id number] Wali Bejarano 1960 F Date Provider Department Center 02/28/2023 [id number], HISTORICAL [facility] No family history on file Normal [facility] HPon 02-22-2023 HP PATIENT: Daniella Bejarano [...] recurrent bladder tumor. Pathology revealed high-grade noninvasive paper supervisor, muscularis propria present and uninvolved. - 01/26/2022: [...] , Rfl: ergocalciferol (Vitamin D-2) 1.25 MG (72379 Units) capsule, Take by mouth., Disp: , [...] calcium carb-vitam (more content not included)... 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 CYTOLOGY - CELLULAR EXAMon 02-22-2023 LAB AP CASE REPORT Normal [facility] Comment on above: Result Comment: Non- gynecologic Cytology Case: [id number] Authorizing Provider: Lisa Zelaya MD Collected: 02/22/2023 1206 Ordering Location: [facility] Received: 02/22/2023 1206 Urology Pathologist: Yossi Sterling MD Specimen: Urine, Voided Performed By: #### L [id number] #### [facility] ([facility]) [address] [place] [address] LAB AP CLINICAL INFORMATION Order Diagnoses [facility] Comment on above: Result Comment: C67. 4 - Malignant neoplasm of posterior wall of urinary bladder (CMS/HCC) [ICD-10-CM] Performed By: #### L [id number] #### [facility] ([facility]) [address] [place] [address] LAB AP GROSS DESCRIPTION [facility] Comment on above: Result Comment: 12 m L yellow, cloudy fluid Performed By: #### L [id number] #### [facility] ([facility]) [address] [place] [address] LAB AP REPORT FINAL DIAGNOSIS NARRATIVE [facility] Comment on above: Result Comment: A. U rine, Voided: - Negative for high grade urothelial carcinoma. Performed By: #### L [id number] #### [facility] ([facility]) [address] [place] [address] Office Visiton 02-22-2023 Follow-up visit [id number] Wali Bejarano 1960 Date Provider Department Center 02/22/2023 LISA JOY [facility] No family history on file Level of Service:67911 [place] OFFICE/OUTPATIENT NEW HIGH MDM 60-74 MINUTES Reason for Visit and Comments: New Patient [632] - Bladder ca Normal [facility] Orders Onlyon 02-22-2023 Orders Only [id number] Wali Bejarano 1960 Date Provider Department Center 02/22/2023 [id number] DEMPSEY [facility] No family history on file [facility] URINALYSIS WITH MICROSCOPICo n 02-22-2023 BILIRUBIN, TOTAL PRESENCE IN URINE Negative Normal Negative [facility] Comment on above: Performed By: #### L [id number] ####[facility] ([facility])[address] [place] [address] Clarity (U) Clear Normal Clear [facility] Comment on above: Performed By: #### L [id number] ####[facility] ([facility])[address] [place] [address] Color (U) Yellow Normal Yellow [facility] Comment on above: Performed By: #### L [id number] ####[facility] ([facility])[address] [place] [address] Glucose (U) [Mass/Vol] Negative Normal Negative [facility] Comment on above: Performed By: #### L [id number] ####[facility] ([facility])[address] [place] [address] HEMOGLOBIN PRESENCE IN URINE Negative Normal Negative [facility] Comment on above: Performed By: #### L [id number] ####[facility] ([facility])[address] [place] [address] Ketones Ql (U) Negative Normal Negative [facility] Comment on above: Performed By: #### L [id number] ####[facility] ([facility])[address] [place] [address] LEUKOCYTE ESTERASE PRESENCE IN URINE BY TEST STRIP Trace Abnormal Negative [facility] Comment on above: Performed By: #### L [id number] ####[facility] ([facility])[address] [place] [address] MUCUS (#/HPF) IN URINE SEDIMENT Occasional Normal None Seen, Occasional, Few [facility] Comment on above: Performed By: #### L [id number] ####[facility] ([facility])[address] [place] [address] NITRITE PRESENCE IN URINE Negative Normal Negative [facility] Comment on above: Performed By: #### L [id number] ####[facility] ([facility])[address] [place] [address] pH (U) 5.0 [pH] Normal 5.0-8.0 [facility] Comment on above: Performed By: #### L [id number] ####[facility] ([facility])[address] [place] [address] Protein (U) [Mass/Vol] Negative Normal Negative [facility] Comment on above: Performed By: #### L [id number] ####[facility] ([facility])[address] [place] [address] RBC (#/HPF) IN URINE SEDIMENT None Seen Normal None Seen [facility] Comment on above: Performed By: #### L [id number] ####[facility] ([facility])[address] [place] [address] Specific gravity (U) [Rel density] 1.011 Low 1.015-1.020 [facility] Comment on above: Performed By: #### L [id number] ####[facility] ([facility])[address] [place] [address] SQUAMOUS EPITHELIAL CELLS (#/HPF) IN URINE SEDIMENT Many Abnormal None Seen, Occasional [facility] Comment on above: Performed By: #### L [id number] ####[facility] ([facility])[address] [place] [address] WBC (LEUKOCYTE) (#/HPF) IN URINE SEDIMENT 3-5 Abnormal None Seen [facility] Comment on above: Performed By: #### L [id number] ####[facility] ([facility])[address] [place] [address] URINE CULTURE, ROUTINEon Bacteria identified Cx Nom (U) No growth at 18-24 hours Normal [facility] Comment on above: Performed By: #### L [id number] ####[facility] ([facility])[address] [place] [address] Orders Onlyon 01-17-2023 Orders Only [id number] Wali Bejarano 1960 F Date Provider Department Center 01/17/2023 [id number], HISTORICAL [facility] No family history on file Normal [facility] Retail - Clinical Noteon Retail - Clinical Note [id number]#1.00C D:127 Normal [facility] Ambulatory Visit Summaryon 0 01-04-2023 Ambulatory Visit [...] bladder f (more content not included)... Normal [facility] Patient Educationon 01-05-20 Patient Education Oncology Bladder [...] Follow these instructions at home: ? Take ohyi-idi-paprqik and prescription medicines only as told by [...] important. Where to find more information ? [place] [employer]: www.cancer.org ? National Cancer Breeding (NCI): www.cancer.gov Contact a health care provider [...] 10/18/2004 Document Revised: 09/28/2018 Document Reviewed: 09/19/2017 [employer] Patient Education ? 2019 [employer]. Normal [facility] Urology Office/Clinic Noteon 01-04-2023 Urology Office/Clinic Note [...] see if Blue Light Cystoscopy available at [facility] for TURBT to further evaluate and resect possible CIS. -Our office w/ consult with Dr. Booth regarding treatment in setting of suspected malignancy. 2. OAB (overactive bladder) (N32.81: Overactive bladder) Continues taking VESIcare 10mg daily. Improvement but still with sx Patient has new insurance and will attempt to get Myrbetriq covered. Has dianne (more content not included)... Normal [facility] Comment on above: Result Comment: Elec tronically Signed By: Dina Cobb MD\.br\Date and Time Signed: 01/04/23 12:20 EST\.br\Electronically Co-Signed By: Pratibha Rodriguez\.br\Date and Time Co-Signed: 01/04/23 09:08 EST\.br\Electronically Co-Signed By: Pratibha Rodriguez\.br\Date and Time Co-Signed: 01/04/23 09:18 EST Lab Reportson 01-03-2023 Lab Reports [id number]#1.00C D:127 Normal [facility] Pathology Noteon 01-03-2023 Pathology Note [id number]#1.00CD :127 Normal [facility] Pathology Note [id number]#1.00C D:127 Normal [facility] Operative Reporton Operative Report [id number]#1.00C D:127 Normal [facility] Formson 12-29-2022 Forms [id number]#1.00C D:127 Normal [facility] CYTOLOGYon 12-28-2022 SENT TO REF LAB 12/28/2022 [facility] Comment on above: Performed By: #### C YTO #### [facility] [address] [place] [address] Dr. Troy Jeter SENT TO REF LAB 12/28/2022 [facility] Comment on above: Performed By: #### C YTO #### [facility] [address] [place] [address] Dr. Troy Jeter Pre-Certification Formon Pre-Certification Form [id number]#1.0 0CD:127 Normal [facility] PROTIMEon 12-21-2022 INR Coag (PPP) [Relative time] 1.00 {INR} Normal [facility] Comment on above: Performed By: #### C YTO #### [facility] [address] [place] [address] Dr. Troy Jeter INR GUIDELINES SEE BELOW Normal [facility] Comment on above: Result Comment: LORENA RED INR: 2.0 - 3.0 CONDITIONS NOT LISTED BELOW 2.5 - 3.5 FOR PROSTHETIC HEART VALVE REPLACEMENT 2.5 - 3.5 RECURRENT THROMBOSIS Performed By: #### C YTO #### [facility] [address] [place] [address] Dr. Troy Jeter PT Coag (PPP) [Time] 10.6 s Normal 9.0-11.6 [facility] Comment on above: Performed By: #### C YTO #### [facility] [address] [place] [address] Dr. Troy Jeter PTTon 12-21-2022 aPTT Coag (Bld) [Time] 26.9 s Normal 22.3-36.2 [facility] Comment on above: Performed By: #### C YTO #### [facility] [address] [place] [address] Dr. Troy Jeter Coding Summary.on 12-17-2022 Coding Summary. CD:[id number]:[id number] Gh0 bWw+PGhlYWQ+DP2TDEEeX53 cfGBdvN3GV4fNHC6MXZBNMH DRFC5LOM6niOE0CVkhJ4Rsd iAv WwofbHAeJE19LNj5PQA8sIf uNTcjqQ0reVDkM0h5XiUsON 20jY42KXrkWPInXpZ3UoUcm jsgbWFy G9voWsAjwLEgNct+PHRhYmx lIHdpZHRoPScxMDAlJyBzdH rzHP2uZe3jDEYxIJRkaEopo HNlOiBj d0irDWWvESilZG8myFikH6L fpTH2QGUbp7f3Nl43sFY+PH FxUHU6lOetGRtbx380DoCrd 3kqNVQ2 gDZpKEcpITN8B68hh7T8GPI lGADaLTA3sVY8yG6wwUyudp euH1KrlCMkVpP7UJS2bTDuq C2xoQbw npjrkS0yOgl+E05IBX2WRKL DUZ1UVyo8R7HcMibkdRD+PC 50KVCrDC76nBSqfSNsc5heh Rr0DvWi YIShRBQ0gQxsFTssj8FqDVR zR16kqPMor1O9RCIgfAyldL TfCyLciSX2lW8nAWzjvgohr 2hvdzsn Cwslz4wfib44jX27C29nXKu oOWFjDQO5CZQdUNPciIpxxd 2toB7jKk7+CAais7esj2bhy Dv4QiCt MKQuldDbwZxiMYV8w8DoMa5 5N6VmnQxbu2KgLue8uc99rA Udo8J3cDE1NWkpQZOwwD8xD WxlZnQ6 NZOvCrQmcP25dPKqPOzhXs1 nbCxjiOvhBZ6xBUFlakunXB ZrgA6zJMOevSSfnEdgEQ4tW TBpbjtm p283FgBlVXS9XVYawPCwO0F kiY0gOgKaOAPfQZHrC6YtzL HpWFbsA029GHygYvT4MCXfn fZnV6Vd WVNlpVcqEnY9l2A3Ad7Ul6A pcfbcDVT3ENpyHTGxSeU6Al NvRtF7Y4VjRmh9VDMceZecS B0gO1In XGEeickikjxuxQX7VMNrEZN wsN23uGDqMIcpMo3ts8X6j9 76XMFeRPIiaJ20Nc0drJyzC TBwdCBU fE2errlee3ofvncwMtNbRFY fVZc5HIf9ZVTrhWgvHqEbKT Z6IdN8TTW8cSQfqB4eqHfrr rtiyS1k Oyc+X15uyN5eDVA4DNT7kmk pGFSgtrUxXK96BE07H8NjXe wvdGFibGU+PGRpdiBzdHlsZ O0vWcTp g7cam3JuUWjuX8StVSHtJIc cRby3EKBnTUY4eWB6pB4bVX CiIThsx6B4kNX9Z0YwlmEwb u9my9ij IQMmORcxU99ueKZlk1L5DNG hmDO8PVCnwTbcRcYsbP07Ho c+KCEooOfqs3OtPcbut1ibd 0laeTe4 BvTkEXYtheEylYlhWJD5n4Y jHb07M77rDAorEMDaAPEyMA VrOUCeqWxgkq1faU3aBp3+P GNvbCB3 pPK8jQ8uDRHqAtI6NGzcX25 5IjFthDKcJugmu5tht8tbkI e1XvDvTIAgvsNmtBonBYK0x 2XmMh80 V86wGJkfEVSzTPGvBGJbQBP ljMpchy9wjP8fEj3+PC9jb2 rozb05bX22zYB+VQMpXMV3x WxlPSdw VHMcgV7oCPeqYvQ0JVWbDnI vdY99pOMcSEmkSd0paXawzQ ztSO5oSWWeziebe618RuNgt 2xkIDEw iHHvTSssBSG4B21up2D0FGD tRDAaDJR6nVW4pY7pzSoypf ogbGVmdDsgdmVydGljYWwtY LysP476 IHRvcDsnPlBhdGllbnQgTmF oRCi2T9BpHhv0GHHlaZcqGS 7leXAjLQaeSa4dgVjzdMhaP O2lXRVq jfgbr992EsCww4sdJAEtfSL mRVtsLNI3G44ap5P5YFRfGM UoMBZ4mQW7pV2seKuaowhpf GVmdDsg tfWflQwoYNezYEesG338GZE tnBkoCfYeswSuTWIjcZV9LQ 32ML49wFGbu6H3fPK5T9IlK GRpbmct gywztGL9WWWsAPQcbD37Ld9 ejRysDv7dLDOwSRK1RKAmmE JyE7RsxP4oNnHeQLXnZFNlI 3RleHQt BXmyL062TIuzKbR0DTCuhyW fB7XfNGBueRniPbB4j5U8Vi 8DT0O3GP30WP03hVKcy0P3y AQ4L7Id ATVpghakaqqcoNF4BZEoBKE ojJ72Ws0geGsuVc0zAUGfVN D7QBMejCYnZ9EeaP9wPbSwE DAwMDAw A0MokJPvQBhnB260ELiuTpH 1BWFqrfLhN5IsJKZuhWqsHr B6p8F6Rh0CPYo5UW85XC95g SLsw1Q7 bCT4Y5NjOVMsruutkyqkgSG 5IWMpQYTraD70Gx3coRnuSc 0kQZElESU7BXNtbWJgU0Qyz G0dWhQg KXBaOHDkH0YvxEIsXPtbK37 4KFuiRbW2DNUypoDhG8TiLT KfgSmnUbJ5o5O1Jq1EVFCcH F69OLD2 eKS4RO25DN56X9LfLzzqqNE ibGU+PHRhYmxlIHdpZHRoPS ioFSZcPnNkoKkqSI9gGj3tS GVyLWNv jGgzdQJjRqAwc6srYIEhBJo oTB4olDqpT8LrfKJ9TFNiv9 a7Ec05J60qZ9KsjED+PGNvb DO2pUU7 eC3oOpVjDkR7BMtbK535XdG ipFYoOpzle7zmm6dixAp8Xw U3OJTwcmVfhJrtAIE5n2DvQ h34Y69n IHdpZHRoPSIxNSUiIHZhbGl tcn9sbA1kWo2+BLBiiER5lN D8zQ1jTjCyXeP9TUfyC454Y nRvcCIv Ubdvq8ecd1qvoVv0PzQqARN omcNmfGrdDXL7h4LnYy68O7 StkJrbo5RvYwn2mb92iXRdu 9W4wVI8 K6CnQJUhzcmmaQLnkGhtKU6 aVUQziikoFSBewF1mPTPmD2 u6YwRoWuJ4ICaiI2YddsP1T DEwcHQg SHrgWMH7N53ex3K2LLLcTYA yJAS1xRH9lT1icBhrqaqbxX VmdDsgdmVydGljYWwtYWxpZ 246IHRv aNecRCQmlP0rIIClpCSrtYp aSR0tBHWhlusfRg2TXBxKWj mnLMYNPwoWWnWQKE08EK26z DIjl2A6 gIJ6T9DzZHRxcsjnywmowUE 5FDQmZJIrwK94zMLgCUkoYr 4xy2N0n509GPKuDWPssK69J r6kgIok WKOjiPOUxZ1lgzcec4tnmau oXwSuHVAhCMv1VHg0LSNqmI igPwSjSBA7VsA3NQC2vWYsh R8nrEwl gzjffP0nHcx+MDgvMjIvMTk 1ODwvdGQ+ONVgOPJ0dJjqYX iiREQdgJ2bYZJuW6w6KrGfA kL4XYfe T3GiFDPavrkcCd57hT3tZaF zCuL1HGgjX6PcyiI4INOtxZ UrJNznLGR1K59lb3P1ILXjV DAwMDA7 uHB1hL6egMgaulbrzNKuqBd lkhQtdGstBQbuQCzzJ594HK NhmXqsWwV3SBgrFBBhJU12C C67iJLk a6R0iTX1K0AvEIGxvvvdvie jxNZ7BWWhQJNhzH21hYWxZA jsOr1bx3S0d149PVSqHUYvj N29Wg9s uRvdJDJhvRMFoV1coakoe3f rfdnqJkHrKJAwNKs8DBi3XE NvsJarCgLaAUJ6ImZ3SHT3h YQatH7s iPuctxivaS1eBhi+RmVtYWx kLD35RM82eXDlh5A7cGP0N6 HmMXNhpdwvgyxiwAP3QYCiS DUwaW47 gMByZVltMw9xa5X2h309PGG xNVMznO52Zx5lfWncQNRonR NXuF8eqhfdv8aeqblfBpCjX DAwMDt0 HHt8PEGqrZlpExFwBHM8NyH 0CEB5vLQjlI1yoGlmvdzykE 9wOyc+RFJoRAMhb7Gnm1LzS V13ZU71 Y5TzUocldQFigWL+PHRhYmx lIHdpZHRoPScxMDAlJyBzdH zaLA1nNt3zNLVePPWcjCgwc HNlOiBj z4tqAXFwIKcpYU8usKrgG7D sxIL5EVUem3l9Vr36R40zP2 JvdXA+HGGcqQX1rJX6sD8kO zAlIiB2 CQdhC515TrNsnJWfZxyec1k qk0paoXf6KuYpIRGwfxDdlM xwOZQ2d6WeFm01V61vZCpbR HRoPSIy PJCrTXDkiUimzl5dsF7kCd9 +FTBclGK8jRO8kK0lIwXbGh F0ONyoT676AtRbpPClXvvrD 63dK2Ks dXA+FMFrDqs4KAGimCpmLA2 znAHsHBugTf5qPRV0WiGcGt ChPXhfX9DfDTDzpyqfnhrai PX8KEWy OYQzzC13Fg6plHwsMc3bRFP eXXO7ZFCfeUPqZ6BuqG0gGf DbIVAkCYOgY7AhiKDqGSmcZ 246IGxl FvX9CCEuspGqY4AwGDWnrMx iEsF0l9U2Ub5XxYgwhPGhEK 5cHuUwFVl3M5FbDxp0FTBia PhuCD5e iULvRGxxOd1lwQsusCftOY8 tBKHgiijno750LcCuh0xfLE BplGJaYVtrOIS9O85hk6P2Y CMwMDAw NIO7eDA3sS4wlPepqssskCE mdDsgdmVydGljYWwtYWxpZ2 11WKFliKefMdXMAqr6W3UsH kt1POJi tOllJP8dvMTdSDwzZe1ugBa nmIxgTT7gPMDlgtjnb782Mr Pvg9jaWOReyTFfXNkgGQL6V 54en9J2 NXJrDFSiKVW3gBP5vI4nxUc nbjogbGVmdDsgdmVydGljYW wkJAuaW684DEWvfNzyGd2OF qu5A0Gc Uud3JNNntXgaXE4yeCOtDZs vDv4fhIqkjPcjXB7wJFBcdu vcu741EyMie7fjFUAtxSKeN GltZXM7 P03sf0F1QLGzWMYzWMN9qGL 2jF7tpFmdskcbhJQvjLuzqk IwuCatCQwvMRfjO891AEZre DsnPlBh eWVyOjwvdGQ+KF93py12G1Y fMcpnBev9TFBxNYM0aRF0lB 7iGZLjUZekz6G5iHL6P7Gef kWgvs5h b2xs (more content not included)... Normal [facility] C Urineon 12-16-2022 Bacteria identified Cx Nom (U) Microbiology PROCEDURE: Urine Culture [R1] SOURCE: U Random BODY SITE: COLLECTED DATE/TIME: 12/14/2022 11:17 EST RECEIVED DATE/TIME: 12/14/2022 17:31 EST START DATE/TIME: 12/14/2022 17:31 EST FREE TEXT SOURCE: Blanca Arriaza, Blanca Perez FINAL REPORTS Final Report [] Verified Date/Time: 12/16/2022 09:26 EST 1,000 cfu/ml Mixed skin contaminants Performing Locations R1: This test was performed at: [facility], [address] [place] [address], [facility] , , [facility] Comment on above: Performed By: #### [id number] ####[facility] [address] [place] [address] Ambulatory Visit Summaryon 0 12-14-2022 Ambulatory Visit Summary DANIELLA BEJARANO :1960 Visit Date:12/14/2022 Ambulatory Visit Instructions Your Diagnosis History of UTI Your Care Team Attending Physician - Reza JAMES, Dina Oconnell Primary Care Physician - FRANCISCO JAMES, [place] This Is Your Medications List aspirin (aspirin [...] Urothelial carcinoma of bladder Vaginal atrophy Normal [facility] Operative Reporton 02-14-202 3 Operative Report [id number] D:127 Normal [facility] Pathology Noteon 12-13-2022 Pathology Note [id number]#1.00C D:127 Normal [facility] CYTOLOGYon 12-07-2022 SENT TO REF LAB 12/07/2022 Normal [facility] Comment on above: Performed By: #### C YTO #### [facility] [address] [place] [address] Dr. Troy Jeter Insurance Correspondenceon 0 11-25-2022 Insurance Correspondence [id number] :127 Normal [facility] CBC AUTO DIFFon 11-23-2022 BASO # 0.1 103/ul Normal 0.0-0.1 [facility] Comment on above: Performed By: #### C BC #### [facility] [address] [place] [address] Dr. Troy Jeter Basophils/100 WBC (Bld) 1.0 % Normal 0.2-2.0 [facility] Comment on above: Performed By: #### C BC #### [facility] [address] [place] [address] Dr. Troy Jeter EO # 0.1 103/ul Normal 0.0-0.7 [facility] Comment on above: Performed By: #### C BC #### [facility] [address] [place] [address] Dr. Troy Jeter Eosinophils/100 WBC (Bld) 2.4 % Normal 0.9-7.0 [facility] Comment on above: Performed By: #### C BC #### [facility] [address] [place] [address] Dr. Troy Jeter Erythrocyte distribution width (RBC) [Ratio] 14.6 % Normal 11.0-15.0 [facility] Comment on above: Performed By: #### C BC #### [facility] [address] [place] [address] Dr. Troy Jeter Hematocrit (Bld) [Volume fraction] 37.7 % Normal 36.0-48.0 [facility] Comment on above: Performed By: #### C BC #### [facility] [address] [place] [address] Dr. Troy Jeter Hemoglobin (Bld) [Mass/Vol] 11.0 g/dL Critically low 12.0-16.0 [facility] Comment on above: Performed By: #### C BC #### [facility] [address] [place] [address] Dr. Troy Jeter IG # 0.02 10e3/ul Normal 0.00-0.03 [facility] Comment on above: Performed By: #### C BC #### [facility] [address] [place] [address] Dr. Troy Jeter IG % 0.4 % Normal 0.0-0.5 [facility] Comment on above: Performed By: #### C BC #### [facility] [address] [place] [address] Dr. Troy Jeter LYMPH # 1.3 103/ul Normal 1.2-3.8 [facility] Comment on above: Performed By: #### C BC #### [place] [facility] [address] [place] [address] Dr. Troy Jeter Lymphocytes/100 WBC (Bld) 25.5 % Normal 20.5-60.0 [facility] Comment on above: Performed By: #### C BC #### [facility] [address] [place] [address] Dr. Troy Jeter MANUAL DIFF REQ NO Normal [facility] Comment on above: Performed By: #### C BC #### [facility] [address] [place] [address] Dr. Troy Jeter MCH (RBC) [Entitic mass] 25.9 pg Critically low 26.7-34.0 [facility] Comment on above: Performed By: #### C BC #### [facility] [address] [place] [address] Dr. Troy Jeter MCHC (RBC) [Mass/Vol] 29.2 g/dL Critically low 29.9-35.2 [facility] Comment on above: Performed By: #### C BC #### [facility] [address] [place] [address] Dr. Troy Jeter MCV (RBC) [Entitic vol] 88.7 fL Normal 81.0-99.0 [facility] Comment on above: Performed By: #### C BC #### [facility] [address] [place] [address] Dr. Troy Jeter MONO # 0.4 103/ul Normal 0.3-0.8 [facility] Comment on above: Performed By: #### C BC #### [facility] [address] [place] [address] Dr. Troy Jeter Monocytes/100 WBC (Bld) 8.6 % Normal 1.7-12.0 [facility] Comment on above: Performed By: #### C BC #### [facility] [address] [place] [address] Dr. Troy Jeter NEUT # 3.2 103/ul Normal 1.4-6.5 [facility] Comment on above: Performed By: #### C BC #### [facility] [address] [place] [address] Dr. Troy Jeter Neutrophils/100 WBC (Bld) 62.1 % Normal 43.0-75.0 [facility] Comment on above: Performed By: #### C BC #### [facility] [address] [place] [address] Dr. Troy Jeter Platelet mean volume (Bld) [Entitic vol] 9.4 fL Critically low 9.5-13.5 [facility] Comment on above: Performed By: #### C BC #### [facility] [address] [place] [address] Dr. Troy Jeter PLT 190 103/ul Normal 150-450 [facility] Comment on above: Performed By: #### C BC #### [facility] [address] [place] [address] Dr. Troy Jeter RBC 4.25 106/ul Normal 4.20-5.40 [facility] Comment on above: Performed By: #### C BC #### [facility] [address] [place] [address] Dr. Troy Jeter WBC 5.1 103/ul Normal 4.0-11.0 [facility] Comment on above: Performed By: #### C BC #### [facility] [address] [place] [address] Dr. Troy Jeter PROF 14(COMP METB)on 023 Albumin [Mass/Vol] 3.4 g/dL Normal 3.4-5.0 [facility] Comment on above: Performed By: #### C BC #### [facility] [address] [place] [address] Dr. Troy Jeter Albumin/Globulin [Mass ratio] 0.9 {ratio} Normal [facility] Comment on above: Performed By: #### C BC #### [facility] [address] [place] [address] Dr. Troy Jeter ALP [Catalytic activity/Vol] 99 U/L Normal 46-116 [facility] Comment on above: Performed By: #### C BC #### [facility] [address] [place] [address] Dr. Troy Jeter ALT [Catalytic activity/Vol] 67 U/L Critically high 14-59 [facility] Comment on above: Performed By: #### C BC #### [facility] [address] [place] [address] Dr. Troy Jeter Anion gap [Moles/Vol] 12.8 mmol/L Normal [facility] Comment on above: Performed By: #### C BC #### [facility] [address] [place] [address] Dr. Troy Jeter AST [Catalytic activity/Vol] 54 U/L Critically high 15-37 [facility] Comment on above: Performed By: #### C BC #### [facility] [address] [place] [address] Dr. Troy Jeter Bilirubin [Mass/Vol] 0.4 mg/dL Normal 0.2-1.0 [facility] Comment on above: Performed By: #### C BC #### [facility] [address] [address] [address] Troy Jeter Calcium [Mass/Vol] 9.3 mg/dL Normal 8.5-10.1 [facility] Comment on above: Performed By: #### C BC #### [facility] [address] [address] [address] Troy Jeter Chloride [Moles/Vol] 106 mmol/L Normal 98-107 [facility] Comment on above: Performed By: #### C BC #### [facility] [address] [address] [address] Troy Jeter CO2 [Moles/Vol] 24.9 mmol/L Normal 21.0-32.0 [facility] Comment on above: Performed By: #### C BC #### [facility] [address] [place] [address] Dr. Troy Jeter Creatinine [Mass/Vol] 0.89 mg/dL Normal 0.55-1.02 [facility] Comment on above: Performed By: #### C BC #### [facility] [address] [place] [address] Dr. Troy Jeter EGFR-AF SWAZI >60 Normal >=60 [facility] Comment on above: Performed By: #### C BC #### [facility] [address] [place] [address] Dr. Troy Jeter EGFR-NON AF SWAZI >60 Normal >=60 [facility] Comment on above: Performed By: #### C BC #### [facility] [address] [place] [address] Dr. Troy Jeter Globulin (S) [Mass/Vol] 3.7 g/dL Normal [facility] Comment on above: Performed By: #### C BC #### [facility] [address] [place] [address] Dr. Troy Jeter Glucose [Mass/Vol] 125 mg/dL Critically high 74-106 T [facility] Comment on above: Performed By: #### C BC #### [facility] [address] [place] [address] Dr. Troy Jeter Potassium [Moles/Vol] 3.7 mmol/L Normal 3.5-5.1 [facility] Comment on above: Performed By: #### C BC #### [facility] [address] [address] [address] Troy Jeter Protein [Mass/Vol] 7.1 g/dL Normal 6.4-8.2 [facility] Comment on above: Performed By: #### C BC #### [facility] [address] [address] [address] Troy Jeter Sodium [Moles/Vol] 140 mmol/L Normal 136-145 [facility] Comment on above: Performed By: #### C BC #### [facility] [address] [address] [address] Troy Jeter Urea nitrogen [Mass/Vol] 15.0 mg/dL Normal 7.0-18.0 [facility] Comment on above: Performed By: #### C BC #### [facility] [address] [address] [address] Troy Jeter Urea nitrogen/Creatinine [Mass ratio] 16.9 mg/mg Normal [facility] Comment on above: Performed By: #### C BC #### [facility] [address] [address] [address] Troy Jeter XR HAND RT MIN [...] JULISSA KAUFMAN Date: 2022-11-05 08:18 Normal [facility] Ambulatory Visit Summaryon 12-27-2021 Ambulatory Visit Summary DANIELLA BEJARANO :1960 Visit Date:10/26/2022 Ambulatory Visit Instructions Your Diagnosis Bladder cancer OAB (overactive bladder) History of UTI Vaginal atrophy Tests Performed Urnls Dip Stick Auto w/o Microscopy POC 18595 Your Care Team Attending Physician - AI [...] Appointments Follow Up with AI MITCHELL PA-C, URL When: Where: [address] [place] [address] Medications What How Much When Instructions Unchanged [...] Urnls Dip Stick Auto w/o Microscopy POC 67740 (10/26/2022) Bilirubin Urine Dipstick - Negative Blood Urine Dipstick - Negative Glucose Urine Dipstick - Negative Ketones Urine Dipstick - Negative Leukocytes Urine Dipstick - Negative Nitrite Urine Dipstick - Negative Protein Urine Dipstick - Negative Specific [place] Urine Dipstick - 1.020 Urine Appearance Urine [...] Urothelial carcinoma of bladder Vaginal atrophy Normal [facility] Urology Office/Clinic Noteon 10-26-2022 Urology Office/Clinic Note [...] Contact Information RUY VALLE, AI Alejandro, URL [address] [place] [address] Additional Instructions: F/U nov 2022 cysto/cyto Patient [...] Cigarettes, 10/12/2022 (more content not included)... Normal [facility] Comment on above: Result Comment: Elec tronically [...] Urnls Dip Stick Auto w/o Microscopy POC 15286 Your Care Team Attending Physician - Reza [...] PA-C Where: [facility] [place] Normal [facility] Patient Educationon 10-19-20 Patient Education Oncology Bladder [...] Follow these instructions at home: ? Take infh-hqr-vonojlg and prescription medicines only as told by [...] important. Where to find more information ? [place] [employer]: www.cancer.org ? National Cancer Breeding (NCI): www.cancer.gov Contact a health care provider [...] 10/18/2004 Document Revised: 09/28/2018 Document Reviewed: 09/19/2017 [employer] Patient Education ? 2019 [employer]. Eric [facility] Urology Office/Clinic Noteon 10-19-2022 Urology Office/Clinic Note [...] Brother. Immun (more content not included)... Normal [facility] Comment on above: Result Comment: Elec tronically Signed By: Dina Cobb MD\.br\Date and Time Signed: 10/19/22 08:20 EST\.br\Electronically Co-Signed By: Shaylee Bermudez\.br\Date and Time Co-Signed: 10/19/22 08:13 EST Consent for Procedure/Surger yon 10-12-2022 Consent for Procedure/Surgery [id number]#1.00C D:127 Normal [facility] Patient Educationon 10-12-20 22 Patient Education Oncology [...] Follow these instructions at home: ? Take clwu-nuj-lpabwrc and prescription medicines only as told by [...] important. Where to find more information ? [place] [employer]: www.cancer.org ? National Cancer Breeding (NCI): www.cancer.gov Contact a health care provider [...] 10/18/2004 Document Revised: 09/28/2018 Document Reviewed: 09/19/2017 [employer] Patient Education ? 2019 [employer]. [facility] Urology Office/Clinic Noteon 10-12-2022 Urology Office/Clinic Note [...] No qualifyi (more content not included)... Normal [facility] Comment on above: Result Comment: Elec tronically Signed By: Dina Cobb MD\.br\Date and Time Signed: 10/12/22 09:01 EST\.br\Electronically Co-Signed By: Paulina Valenzuela\.br\Date and Time Co-Signed: 10/12/22 08:44 EST Pathology Noteon 08-17-2022 Pathology Note [id number]#[id number] D:127 Normal [facility] Operative Reporton Operative Report [id number]#1.00C D:127 Normal [facility] CYTOLOGYon 08-10-2022 SENT TO REF LAB 08/10/22 [facility] Comment on above: Performed By: #### C YTO #### [facility] [address] [place] [address] Dr. Troy Jeter Lab Reportson 07-29-2022 Lab Reports [id number] D:127 Normal [facility] CULTURE URINEon 07-28-2022 CULTURE URINE Culture Observations [...] F Meropenem S F Tetracycline R F [facility] Comment on above: Performed By: #### C YTO #### [facility] [address] [place] [address] Dr. Troy Jeter Lab Reportson 07-27-2022 Lab Reports [id number] D:127 [facility] Lab Reports [id number]#1.00CD :127 [facility] C Urineon 07-08-2022 Bacteria identified Cx Nom [...] Locations R1: This test was performed at: [facility], [address] [place] [address], [address] , , Normal [facility] Comment on above: Performed By: #### 2 [id number] ####[facility] [address] [place] [address] Coding Summary.on 07-08-2022 Coding Summary. CD:[id number] Gh0 bWw+PGhlYWQ+EO8HWYOrZ19 rfGMxrM2YN4eGOG2UHFTGVU SFAA6VTR1ivED0VZwaD1Yln iAv QxrwuNXzOJ78WLu4GXX9iZx mXJqvtE0sqNYgF1r3WcXuVL 68sN95DKycCMZyRoM4RdVct jsgbWFy Q8mfFfAuyNOlCse+PHRhYmx lIHdpZHRoPScxMDAlJyBzdH mwKG0jHq5lKPPjXZOlrDfsd HNlOiBj y8ygCGKrBYpmQF4bmQmqT2B jfHG4PIIbr5r7Vj29iDX+PH XpXQO0pTuiEXrvd413RcMdd 1zpDUI5 sPDqKSovRMS7U48nb5D2HWN dIDRpYTA6gJX2uT0wdFnlgm ctI8RnqEJaTkZ3DEQ7mJTfe I5zjBpv kjwqfW5xAea+K75LXG1NAGY MRB9GKpw2H1IrLzyvmKT+PC 36VGAlJW38aRJhoUZtb9nnh Hn1AnXd KRAlIJB2iKheEKago9JiTZY kK16xbEZhg1H6OUOegHcibD CfKqYfbRI8rP3wXIwgafeuq 2hvdzsn Qtyhb6fqew56rY61G05fLTs eAMRnXEF4IQTgRTGtkCalfz 2ahO1oSx2+NCgag5xzf3yik Eu1OiWw FYQfbdRaqDkkYMX5e0KcVi9 5G3WzoGmaa5AtGsx2ky28kA Tyy6S5xOU4SBmxTNNxqY7yU WxlZnQ6 KQFqGsNziU35aXDmHOilDm0 gmUykeSklGS4gXCPcbkgcGK JkuX6gQYRvgZBwrIsjIG3gQ TBpbjtm y898XqGaHNY4KTXwzJSwX7L uxA3uSmGkYHQyPYDhE7MlbR PxNKvtD985OJcxSsL7SNZqe yHdN6Rg SNBxyJqdZtM6e4K4Lr6Qq6O qltvsYNV1AQuqDJP2BkM0Mo PqXhP4O6VlKip8GKEipCxmX M5sQ2Vx RZFqtqloduxifWL7XYYxKZY elP05pZIzGLymKy7zr5W0l2 16RGYgZHOwkW23Xw4nnUzdF TBwdCBU jP5vnagra7ltukciXnLiNGW qJSz6LGe8FSUtwXrnOkCwEY H4ZeX1HRF7xXQzpQ0ejKlaz qdbgG2x Oyc+E71qhS2xEPB2KMC8bfo xMEKjtfHvTM92IC22S5RzUy wvdGFibGU+PGRpdiBzdHlsZ H9vTmUc x5lot3MyBFxwJ6OmJPPjGAx mFkb8SXHlHFY3rDJ5rV3gTB FmESjba8Z4dNG0I7LsjfLea i9bi4zm WTFzJBdeW91gbOFqb6I2QHF uxSS3JNCdzNtrBxZmhG81Of c+VADglAxci8MfZxibw0bps 2lttNd2 OdPjJVWoegKtiRotTGV7q9H yDy06S25lIBahMACnFLOnLU ReKHPtjGxdeu3qyD3hZn8+P GNvbCB3 sGB4zM3mMPEaNyX2BXjjI22 9CiStsTQoPufax0yzc3emyS s1LaGfWTGntdVbhKivOQA6r 2WtNn25 F90cODvbTMHuSFPeELCmTNM yxAfkbt9mkP6mXr6+PC9jb2 yfpx73jF19wXU+VUAyRXB6l WxlPSdw NXVdkF2fAGinHoL0ATNjYbK hoA99vXWwBPktJv5dvMnxuR xrVX4oXXLmdszbf894QnBmm 2xkIDEw rGYwERnsDFX5E78di8O8JIR wQLBbDFH3yOW3xH8auCoart ogbGVmdDsgdmVydGljYWwtY DieZ230 IHRvcDsnPlBhdGllbnQgTmF eWQy4B1NiWab3SWWvkDbpIL 9qpIZvWXosNh2hgPtixHfrN M6rYWSm qygyx999DjFan9qlQICcrTS bQEogIRB7T15vn0I2PSBvFV ZnJXV2hGP3hX8ffRevfzcml GVmdDsg jeZtoDmxMYkjNRgtA145PIH keVfbTnMkteXoLMTixIT9BC 02LY66rBHjs3P4mZJ1T9QgR GRpbmct ljkeqZA2BLKxUFGhfI92Gz1 ryWyqUt9cUELaOGM0JZNtrW WrW8OxkT9nNqJuQJWgMOSaI 3RleHQt PIdwI684WNldBfZ0ONOftkX jJ5DvLNYjxOonQmV7f9J9Jp 6LL8U6YH23VC10yUXet1I8k RZ8U0Yp XXFcphlpymfvoKL0EUFgXCV mwF77Wr2haNctMl4zMOJmHV N8RELjwQElQ7FtbF9pNnRpU DAwMDAw D0AdiHQsCEnwM361OEcgJxY 4QVAegeExU1RhCAYunSyqTc P8j4X0Td8JFTi8GA29HJ22g WZwo4L7 wSX0D5ItZENpsjorkykwtND 8UOBmUWGxiG81Rh8zxRyaNz 0hSTXpRHY5SHBznLKhO5Gil O5uLsGf ODFhLSHxU1JwmAAmNEphA58 9IBicScV2FVEoauTpS1GcRM NdcHjeElX2r9E1Zs1NRUHzF J79SVC2 jZP7CD46IK68Z9RxSghvuNQ ibGU+PHRhYmxlIHdpZHRoPS caVTSlYgCoeVoaTK6qVn8fD GVyLWNv dCcytAVdVcCer6ukOUAaGJh hGX1gwGsjW3LevQD1QNCuo3 v8Af04X95bV7ZnnJA+PGNvb ZR3gDU0 nO9tQyZaMsK0RJsaC348XkC ooOZcKpjhu4ehw1lmnYn3Nt V6HFWrrlGdoUzwIUB6s0MsE v65S80z IHdpZHRoPSIxNSUiIHZhbGl obe7bgY4uKc1+RXNfaUF0dU F0yP7dTfCfUfB9PZwvM004K nRvcCIv Kmqdw0gav7ivlLm6RmQxFKU ultNkrLlrDUF5g9ReGz12L1 NikJolc6UmInu3pj77cPTzn 6I0fPS9 V0YgNSKndgajxVFehGhbVG9 iBXEdidmgYFKifI4cPQGiB3 e1SxPfDsS3LDzwC5WfwsD8J DEwcHQg RGfzGRU8X67yz5U9TTFvPIK lWQS7yJK9cZ2hkZallmnwgW VmdDsgdmVydGljYWwtYWxpZ 246IHRv iEevAEVliN2jIHAlxCDiuOz bPM5gNOKqlwsvBa5IVEaZKn ozUVIXUpsDDpFOOS82NY38f YNwu7V2 hLA9M7SjLCHtlsepvagzcFV 9XJBwRKQkqW30cZWpYZcvCf 4hz6F9u455RMUsVCMcnQ35O d9ckEtt RWGmgMKLlM4rokgib7xihqu yEmTzDHTcERq2NYw8LGRbnD gwAfZlUYX8PjC1YIS7yUZbf P8xvUjj quzjcZ0yUpq+MDgvMjIvMTk 1ODwvdGQ+XVNzUTD1fPciGV mkDMNnjR9pJXUrX5j1EjSyB nL4GMxi V6RySOOvqjchWf53nZ2uQsD nXaH1BDgjR2GwydF0IOIpeK UnZUcjIMX0D69ef3Z2SFTzG DAwMDA7 bGP3hF5mtUbaqjcucYEokMu pxyUzsDlnRDrwEQxbQ299NP LbbCkbDiW8XPszUYFmFT13Q B04uQVk r7I3uPY0T7NbVEIeberxpqu alNN4WXBaFYOejD06jUWkSG xjZt7yv3L8p957WJNlHRWyr X70Mg6g dNqzUXQemNHVpD7cfnyvp1z harosMbCsCMJgUZo2QAa0NY ThxMaxWwVhRRF3SpO5KFT8i QYozH7q tHdlynxmbF6aMwr+RmVtYWx cRQ43LD81eUWcz4L2dYF3G9 EfTYReulnvjfvfzQS7JOHlL DUwaW47 dBFuPIzoCs4qr9I9x171FHR bROXzvY47In3csFahBYStmW VVjY3jfxdfl1usxqjiIvLbU DAwMDt0 FZx8HVSzpPvpNdIsDEW3HqF 9WIX2xWGpyB0jaDkxwcbwyI 9wOyc+UFYgROSmv1Bya4GlD S39DR83 J1YdBfqnhCEcmQF+PHRhYmx lIHdpZHRoPScxMDAlJyBzdH eoAE3iUv8mDCIyBTRwvNwzt HNlOiBj x1liHSKkIYmnAH8zaFphY8W zvMO8KRXmc6c9Ac37I81bK1 JvdXA+WBNvxAX6lPE9rH3hN zAlIiB2 CStxD502GaVuuLYjRyvre2n lk5qmyBc3NaIuJFIqhqHfrY uzLIN3r7QqXp52N95iLJrmC HRoPSIy ETJuURRupLwhdc5eqJ3iBb6 +KIJwgIX7wKU7rJ6aVfZcLd N5SJkuG384QbUdeMBhOsokK 77cC5Aw dXA+WRVmAjh1UFTknRxtTB2 miUJfZVopQu0wNXC2WsPhRt HhVHirF7SbOQEocpjbtdqow OB7YBAo OVFfcI63Jx5ktKwyKz6cEWE rLZC7DGWtuQSvY2YidY3nTo XoJRWgDEHxB1IizGMvEJalA 246IGxl JcX4BNNwltVxH1HzNCEgfUp aRmI6l8Y2Yn4JaYkcuILsKY 4jTfIoGDn4G1BkPnq6OJPpr PywZI8q wXQhXHveMp2krHfjcNqkLB5 mUGHetfypu318SlKnb6ymDC LgcXRcJFufZSH7U66zz4B9U CMwMDAw TXR1nLC5uS8zlKzyemcevVN mdDsgdmVydGljYWwtYWxpZ2 77PYUuhPwpBaUVPfb4B1UeU np4OPPp eVnjJR9uhAEiZGxoWu2apYc kdXfmYQ2yKNNcdmwlu939Ob Dvt8flNISdxMOjOKfwRWE1C 45zs3Z3 AHUwRUErRUW0cPD5hA7iyHy nbjogbGVmdDsgdmVydGljYW fvCCrqP748SCOcrVwgPi6QP tf1B1Er Rbn7FSLxaKfzCN3btALaEEi pVk7feAfvaRoyVN1pPKPgix kvy109HlGtf9hwWFLnjRDvV GltZXM7 S72ys0W8DCVvBHYhCIU6fYX 1sM4txYknyqpmvKHlyMiqai RnwItvOJanGUslH046SBLol DsnPlBh eWVyOjwvdGQ+OX03ja50U3S oWlefBwx3OMKvUGS8qVZ5xL 2sNUBnHYngr8S0iGS1Q9Aub gYrpc4k b2xs (more content not included)... Normal [facility] Ambulatory Visit Summaryon 0 07-06-2022 Ambulatory Visit Summary DANIELLA BEJARANO :1960 Visit Date:07/06/2022 Ambulatory Visit Instructions Your Diagnosis Bladder cancer OAB (overactive bladder) History of UTI Vaginal atrophy Tests Performed Urnls Dip Stick Auto w/o Microscopy POC 21646 Your Care Team Attending Physician - Reza [...] Urnls Dip Stick Auto w/o Microscopy POC 87012 (07/06/2022) Bilirubin Urine Dipstick - Negative Blood Urine Dipstick - Trace-intact Glucose Urine Dipstick - Negative Ketones Urine Dipstick - Negative Leukocytes Urine Dipstick - 2+ Moderate Nitrite Urine Dipstick - Positive Protein Urine Dipstick - Negative Specific [place] Urine Dipstick - 1.025 Urine Appearance Urine Dipstick - Cloudy Urine Color Urine Dipstick - Yellow Urobilinogen Urine Dipstick - Normal 0.2-1 EU/dl pH Urine Dipstick - 5.5 Medications and Immunizations Administered Given [place] BCG Live (for intravesical use), 50 mg, [...] paint. ? (more content not included)... Normal [facility] Patient Educationon 07-06-20 Patient Education Oncology Bladder [...] Follow these instructions at home: ? Take cvdj-frd-zszirob and prescription medicines only as told by [...] important. Where to find more information ? [place] [employer]: www.cancer.org ? National Cancer Breeding (NCI): www.cancer.gov Contact a health care provider [...] 10/18/2004 Document Revised: 09/28/2018 Document Reviewed: 09/19/2017 [employer] Patient Education ? 2019 [employer]. Normal [facility] Urology Office/Clinic Noteon 07-06-2022 Urology Office/Clinic Note [...] ago To (more content not included)... Normal [facility] Comment on above: Result Comment: Elec tronically Signed By: Reza JAMES, Dina Oconnell\.br\Date and Time Signed: 07/06/22 11:31 EDT\.br\Electronically Co-Signed By: Pratibha Rodriguez\.br\Date and Time Co-Signed: 07/06/22 10:33 EDT\.br\Electronically Co-Signed By: Pratibha Rodriguez\.br\Date and Time Co-Signed: 07/06/22 10:34 EDT BUNon 07-01-2022 Urea nitrogen [Mass/Vol] 14.0 mg/dL Normal 7.0-18.0 [facility] Comment on above: Performed By: #### C YTO #### [facility] [address] [place] [address] Dr. Troy Jeter CREATININEon 07-01-2022 Creatinine [Mass/Vol] 1.04 mg/dL Critically high 0.55-1.02 [facility] Comment on above: Performed By: #### C YTO #### [facility] [address] [address] [address] Troy Jeter EGFR-AF SWAZI >60 Normal >=60 [facility] Comment on above: Performed By: #### C YTO #### [facility] [address] [place] [address] Dr. Troy Jeter EGFR-NON AF SWAZI 53 mL/min/1.73m2 Critically low >=60 [facility] Comment on above: Performed By: #### C YTO #### [facility] [address] [place] [address] ABD/PELV WO W [...] by: SPARKLE RODRIGUEZ Date: 2022-07-01 11:40 Normal [facility] Ambulatory Visit Summaryon 0 06-29-2022 Ambulatory Visit Summary DANIELLA BEJARANO :1960 Visit Date:06/29/2022 Ambulatory Visit Instructions Your Diagnosis Bladder cancer OAB (overactive bladder) History of UTI Vaginal atrophy Tests Performed Urnls Dip Stick Auto w/o Microscopy POC 69922 Your Care Team Attending Physician - Reza [...] JAMES, Dina Oconnell Where: [facility] Patient Educationon 06-29-20 Patient Education Oncology [...] Follow these instructions at home: ? Take ctyj-kzs-alagyfo and prescription medicines only as told by [...] important. Where to find more information ? [place] [employer]: www.cancer.org ? National Cancer Breeding (NCI): www.cancer.gov Contact a health care provider [...] 10/18/2004 Document Revised: 09/28/2018 Document Reviewed: 09/19/2017 [employer] Patient Education ? 2019 [employer]. [facility] Urology Office/Clinic Noteon 06-29-2022 Urology Office/Clinic Note [...] Immunizations Vacc (more content not included)... Normal [facility] Comment on above: Result Comment: Elec tronically [...] by: FRANNY ZEE Date: 2022-05-26 13:26 Normal [facility] PROTIMEon 05-04-2022 INR Coag (PPP) [Relative time] 1.00 {INR} Normal [facility] Comment on above: Performed By: #### C YTO #### [facility] [address] [address] [address] Troy Jeter INR GUIDELINES SEE BELOW Normal [facility] Comment on above: Result Comment: LORENA RED INR: 2.0 - 3.0 CONDITIONS NOT LISTED BELOW 2.5 - 3.5 FOR PROSTHETIC HEART VALVE REPLACEMENT 2.5 - 3.5 RECURRENT THROMBOSIS Performed By: #### C YTO #### [facility] [address] [place] [address] Dr. Troy Jeter PT Coag (PPP) [Time] 10.8 s Normal 9.0-11.6 [facility] Comment on above: Performed By: #### C YTO #### [facility] [address] [address] [address] Troy Jeter PTTon 05-04-2022 aPTT Coag (Bld) [Time] 24.5 s Normal 22.3-36.2 [facility] Comment on above: Performed By: #### C YTO #### [facility] [address] [place] [address] Dr. Troy Jeter CYTOLOGYon 04-27-2022 SENT TO REF LAB 04/28/22 Normal [facility] Comment on above: Performed By: #### C YTO #### [facility] [address] [place] [address] Dr. Troy Jeter MG MAMM SCREEN LT 3D CADon 0 04-11-2022 MG MAMM SCREEN LT 3D CAD Patient: DANIELLA BEJARANO Exam Date: 04/11/2022 : 1960 Gender:F Ordering : DR BAYRON SINGH . Admission #: [id number] Family : Order #: [id number] CLICK HERE TO VIEW EXAM RADIOLOGY REPORT [...] breast cancer at age 68. LOCATION: [facility] BREAST COMPOSITION: Scattered areas fibroglandular density. [...] M.D. on 04/11/2022 at 13:44 Normal [facility] CBC AUTO DIFFon 03-31-2022 BASO # 0.0 103/ul Normal 0.0-0.1 [facility] Comment on above: Performed By: #### C BC #### [facility] [address] [address] [address] Troy Jeter Basophils/100 WBC (Bld) 0.0 % Critically low 0.2-2.0 [facility] Comment on above: Performed By: #### C BC #### [facility] [address] [address] [address] Troy Jeter EO # 0.1 103/ul Normal 0.0-0.7 [facility] Comment on above: Performed By: #### C BC #### [facility] [address] [address] [address] Troy Jeter Eosinophils/100 WBC (Bld) 2.1 % Normal 0.9-7.0 [facility] Comment on above: Performed By: #### C BC #### [facility] [address] [place] [address] Dr. Troy Jeter Erythrocyte distribution width (RBC) [Ratio] 14.3 % Normal 11.0-15.0 [facility] Comment on above: Performed By: #### C BC #### [facility] [address] [place] [address] Dr. Troy Jeter Hematocrit (Bld) [Volume fraction] 31.8 % Critically low 36.0-48.0 [facility] Comment on above: Performed By: #### C BC #### [facility] [address] [place] [address] Dr. Tryo Jeter Hemoglobin (Bld) [Mass/Vol] 9.7 g/dL Critically low 12.0-16.0 [facility] Comment on above: Performed By: #### C BC #### [facility] [address] [place] [address] Dr. Troy Jeter IG # 0.01 10e3/ul Normal 0.00-0.03 [facility] Comment on above: Performed By: #### C BC #### [facility] [address] [place] [address] Dr. Troy Jeter IG % 0.3 % Normal 0.0-0.5 [facility] Comment on above: Performed By: #### C BC #### [facility] [address] [place] [address] Dr. Troy Jeter LYMPH # 0.7 103/ul Critically low 1.2-3.8 [facility] Comment on above: Performed By: #### C BC #### [facility] [address] [place] [address] Dr. Troy Jeter Lymphocytes/100 WBC (Bld) 25.3 % Normal 20.5-60.0 [facility] Comment on above: Performed By: #### C BC #### [facility] [address] [place] [address] Dr. Troy Jeter MANUAL DIFF REQ NO Normal [facility] Comment on above: Performed By: #### C BC #### [facility] [address] [place] [address] Dr. Troy Jeter MCH (RBC) [Entitic mass] 26.9 pg Normal 26.7-34.0 [facility] Comment on above: Performed By: #### C BC #### [facility] [address] [place] [address] Dr. Troy Jeter MCHC (RBC) [Mass/Vol] 30.5 g/dL Normal 29.9-35.2 [facility] Comment on above: Performed By: #### C BC #### [facility] [address] [place] [address] Dr. Troy Jeter MCV (RBC) [Entitic vol] 88.1 fL Normal 81.0-99.0 [facility] Comment on above: Performed By: #### C BC #### [facility] [address] [place] [address] Dr. Troy Jeter MONO # 0.4 103/ul Normal 0.3-0.8 [facility] Comment on above: Performed By: #### C BC #### [facility] [address] [place] [address] Dr. Troy Jeter Monocytes/100 WBC (Bld) 14.2 % Critically high 1.7-12.0 [facility] Comment on above: Performed By: #### C BC #### [facility] [address] [place] [address] Dr. Troy Jeter NEUT # 1.7 103/ul Normal 1.4-6.5 [facility] Comment on above: Performed By: #### C BC #### [facility] [address] [place] [address] Dr. Troy Jeter Neutrophils/100 WBC (Bld) 58.1 % Normal 43.0-75.0 [facility] Comment on above: Performed By: #### C BC #### [facility] [address] [place] [address] Dr. Troy Jeter Platelet mean volume (Bld) [Entitic vol] 9.3 fL Critically low 9.5-13.5 [facility] Comment on above: Performed By: #### C BC #### [facility] [address] [place] [address] Dr. Troy Jeter PLT 134 103/ul Critically low 150-450 [facility] Comment on above: Performed By: #### C BC #### [facility] [address] [place] [address] Dr. Troy Jeter RBC 3.61 106/ul Critically low 4.20-5.40 [facility] Comment on above: Performed By: #### C BC #### [facility] [address] [place] [address] Dr. Troy Jeter WBC 2.9 103/ul Critically low 4.0-11.0 [facility] Comment on above: Performed By: #### C BC #### [facility] [address] [place] [address] Dr. Troy Jeter PROF 14(COMP METB)on 022 Albumin [Mass/Vol] 2.7 g/dL Critically low 3.4-5.0 [facility] Comment on above: Performed By: #### C MP #### [facility] [address] [place] [address] Dr. Troy Jeter Albumin/Globulin [Mass ratio] 0.9 {ratio} Normal [facility] Comment on above: Performed By: #### C MP #### [facility] [address] [place] [address] Dr. Troy Jeter ALP [Catalytic activity/Vol] 51 U/L Normal 46-116 [facility] Comment on above: Performed By: #### C MP #### [facility] [address] [place] [address] Dr. Troy Jeter ALT [Catalytic activity/Vol] 57 U/L Normal 14-59 [facility] Comment on above: Performed By: #### C MP #### [facility] [address] [place] [address] Dr. Troy Jeter Anion gap [Moles/Vol] 16.1 mmol/L Normal [facility] Comment on above: Performed By: #### C MP #### [facility] [address] [place] [address] Dr. Troy Jeter AST [Catalytic activity/Vol] 69 U/L Critically high 15-37 [facility] Comment on above: Performed By: #### C MP #### [facility] [address] [place] [address] Dr. Troy Jeter Bilirubin [Mass/Vol] 0.2 mg/dL Normal 0.2-1.0 [facility] Comment on above: Performed By: #### C MP #### [facility] [address] [place] [address] Dr. Troy Jeter Calcium [Mass/Vol] 8.1 mg/dL Critically low 8.5-10.1 [facility] Comment on above: Performed By: #### C MP #### [facility] [address] [place] [address] Dr. Troy Jeter Chloride [Moles/Vol] 112 mmol/L Critically high 98-107 [facility] Comment on above: Performed By: #### C MP #### [facility] [address] [place] [address] Dr. Troy Jeter CO2 [Moles/Vol] 18.3 mmol/L Critically low 21.0-32.0 [facility] Comment on above: Performed By: #### C MP #### [facility] [address] [place] [address] Dr. Troy Jeter Creatinine [Mass/Vol] 0.89 mg/dL Normal 0.55-1.02 [facility] Comment on above: Performed By: #### C MP #### [facility] [address] [place] [address] Dr. Troy Jeter EGFR-AF SWAZI >60 Normal >=60 [facility] Comment on above: Performed By: #### C MP #### [facility] [address] [place] [address] Dr. Troy Jeter EGFR-NON AF SWAZI >60 Normal >=60 [facility] Comment on above: Performed By: #### C MP #### [facility] [address] [place] [address] Dr. Troy Jeter Globulin (S) [Mass/Vol] 3.0 g/dL Normal [facility] Comment on above: Performed By: #### C MP #### [facility] [address] [address] [address] Troy Jeter Glucose [Mass/Vol] 80 mg/dL Normal 74-106 [facility] Comment on above: Performed By: #### C MP #### [facility] [address] [address] [address] Troy Jeter Potassium [Moles/Vol] 3.4 mmol/L Critically low 3.5-5.1 [facility] Comment on above: Performed By: #### C MP #### [facility] [address] [address] [address] Troy Jeter Protein [Mass/Vol] 5.7 g/dL Critically low 6.4-8.2 [facility] Comment on above: Performed By: #### C MP #### [facility] [address] [address] [address] Troy Jeter Sodium [Moles/Vol] 143 mmol/L Normal 136-145 [facility] Comment on above: Performed By: #### C MP #### [facility] [address] [place] [address] Dr. Troy Jeter Urea nitrogen [Mass/Vol] 11.0 mg/dL Normal 7.0-18.0 [facility] Comment on above: Performed By: #### C MP #### [facility] [address] [place] [address] Dr. Troy Jeter Urea nitrogen/Creatinine [Mass ratio] 12.4 mg/mg Normal [facility] Comment on above: Performed By: #### C MP #### [facility] [address] [address] [address] Troy Jeter CBC AUTO DIFFon 03-30-2022 BASO # 0.0 103/ul Normal 0.0-0.1 [facility] Comment on above: Performed By: #### C BC #### [facility] [address] [address] [address] Troy Jeter Basophils/100 WBC (Bld) 0.3 % Normal 0.2-2.0 [facility] Comment on above: Performed By: #### C BC #### [facility] [address] [address] [address] Troy Jeter EO # 0.0 103/ul Normal 0.0-0.7 [facility] Comment on above: Performed By: #### C BC #### [facility] [address] [place] [address] Dr. Troy Jeter Eosinophils/100 WBC (Bld) 1.2 % Normal 0.9-7.0 [facility] Comment on above: Performed By: #### C BC #### [facility] [address] [place] [address] Dr. Troy Jeter Erythrocyte distribution width (RBC) [Ratio] 14.1 % Normal 11.0-15.0 [facility] Comment on above: Performed By: #### C BC #### [facility] [address] [place] [address] Dr. Troy Jeter Hematocrit (Bld) [Volume fraction] 32.5 % Critically low 36.0-48.0 [facility] Comment on above: Performed By: #### C BC #### [facility] [address] [place] [address] Dr. Troy Jeter Hemoglobin (Bld) [Mass/Vol] 9.8 g/dL Critically low 12.0-16.0 [facility] Comment on above: Performed By: #### C BC #### [facility] [address] [place] [address] Dr. Troy Jeter IG # 0.01 10e3/ul Normal 0.00-0.03 [facility] Comment on above: Performed By: #### C BC #### [facility] [address] [place] [address] Dr. Troy Jeter IG % 0.3 % Normal 0.0-0.5 [facility] Comment on above: Performed By: #### C BC #### [facility] [address] [place] [address] Dr. Troy Jeter LYMPH # 0.6 103/ul Critically low 1.2-3.8 [facility] Comment on above: Performed By: #### C BC #### [facility] [address] [place] [address] Dr. Troy Jeter Lymphocytes/100 WBC (Bld) 18.4 % Critically low 20.5-60.0 [facility] Comment on above: Performed By: #### C BC #### [facility] [address] [place] [address] Dr. Troy Jeter MANUAL DIFF REQ NO Normal [facility] Comment on above: Performed By: #### C BC #### [facility] [address] [place] [address] Dr. Troy Jeter MCH (RBC) [Entitic mass] 27.0 pg Normal 26.7-34.0 [facility] Comment on above: Performed By: #### C BC #### [facility] [address] [place] [address] Dr. Troy Jeter MCHC (RBC) [Mass/Vol] 30.2 g/dL Normal 29.9-35.2 [facility] Comment on above: Performed By: #### C BC #### [facility] [address] [place] [address] Dr. Troy Jeter MCV (RBC) [Entitic vol] 89.5 fL Normal 81.0-99.0 [facility] Comment on above: Performed By: #### C BC #### [facility] [address] [place] [address] Dr. Troy Jeter MONO # 0.4 103/ul Normal 0.3-0.8 [facility] Comment on above: Performed By: #### C BC #### [facility] [address] [place] [address] Dr. Troy Jeter Monocytes/100 WBC (Bld) 12.7 % Critically high 1.7-12.0 [facility] Comment on above: Performed By: #### C BC #### [facility] [address] [place] [address] Dr. Troy Jeter NEUT # 2.2 103/ul Normal 1.4-6.5 [facility] Comment on above: Performed By: #### C BC #### [facility] [address] [address] [address] Troy Jeter Neutrophils/100 WBC (Bld) 67.1 % Normal 43.0-75.0 [facility] Comment on above: Performed By: #### C BC #### [facility] [address] [address] [address] Troy Jeter Platelet mean volume (Bld) [Entitic vol] 9.7 fL Normal 9.5-13.5 [facility] Comment on above: Performed By: #### C BC #### [facility] [address] [address] [address] Troy Jeter PLT 140 103/ul Critically low 150-450 [facility] Comment on above: Performed By: #### C BC #### [facility] [address] [address] [address] Troy Jeter RBC 3.63 106/ul Critically low 4.20-5.40 [facility] Comment on above: Performed By: #### C BC #### [facility] [address] [address] [address] Troy Jeter WBC 3.3 103/ul Critically low 4.0-11.0 [facility] Comment on above: Performed By: #### C BC #### [facility] [address] [address] [address] Troy Jeter PROF 14(COMP METB)on 022 Albumin [Mass/Vol] 2.8 g/dL Critically low 3.4-5.0 [facility] Comment on above: Performed By: #### C BC #### [facility] [address] [address] [address] Troy Jeter Albumin/Globulin [Mass ratio] 0.9 {ratio} Normal [facility] Comment on above: Performed By: #### C BC #### [facility] [address] [address] [address] Troy Jeter ALP [Catalytic activity/Vol] 50 U/L Normal 46-116 [facility] Comment on above: Performed By: #### C BC #### [facility] [address] [address] [address] Troy Jeter ALT [Catalytic activity/Vol] 58 U/L Normal 14-59 [facility] Comment on above: Performed By: #### C BC #### [facility] [address] [address] [address] Troy Jeter Anion gap [Moles/Vol] 17.3 mmol/L Normal [facility] Comment on above: Performed By: #### C BC #### [facility] [address] [address] [address] Troy Jeter AST [Catalytic activity/Vol] 78 U/L Critically high 15-37 [facility] Comment on above: Performed By: #### C BC #### [facility] [address] [place] [address] Dr. Troy Jeter Bilirubin [Mass/Vol] 0.2 mg/dL Normal 0.2-1.0 [facility] Comment on above: Performed By: #### C BC #### [facility] [address] [place] [address] Dr. Troy Jeter Calcium [Mass/Vol] 8.0 mg/dL Critically low 8.5-10.1 [facility] Comment on above: Performed By: #### C BC #### [facility] [address] [place] [address] Dr. Troy Jeter Chloride [Moles/Vol] 112 mmol/L Critically high 98-107 [facility] Comment on above: Performed By: #### C BC #### [facility] [address] [place] [address] Dr. Troy Jeter CO2 [Moles/Vol] 17.0 mmol/L Critically low 21.0-32.0 [facility] Comment on above: Performed By: #### C BC #### [facility] [address] [place] [address] Dr. Troy Jeter Creatinine [Mass/Vol] 0.93 mg/dL Normal 0.55-1.02 [facility] Comment on above: Performed By: #### C BC #### [facility] [address] [place], [place] [id number] Dr. Troy Jeter EGFR-AF SWAZI >60 Normal >=60 [facility] Comment on above: Performed By: #### C BC #### [facility] [address] [place] [address] Dr. Troy Jeter EGFR-NON AF SWAZI >60 Normal >=60 [facility] Comment on above: Performed By: #### C BC #### [facility] [address] [place] [address] Dr. Troy Jeter Globulin (S) [Mass/Vol] 3.1 g/dL Normal [facility] Comment on above: Performed By: #### C BC #### [facility] [address] [place] [address] Dr. Troy Jeter Glucose [Mass/Vol] 77 mg/dL Normal 74-106 [facility] Comment on above: Performed By: #### C BC #### [facility] [address] [place] [address] Dr. Troy Jeter Potassium [Moles/Vol] 3.3 mmol/L Critically low 3.5-5.1 [facility] Comment on above: Performed By: #### C BC #### [facility] [address] [place] [address] Dr. Troy Jeter Protein [Mass/Vol] 5.9 g/dL Critically low 6.4-8.2 [facility] Comment on above: Performed By: #### C BC #### [facility] [address] [place] [address] Dr. Troy Jeter Sodium [Moles/Vol] 143 mmol/L Normal 136-145 [facility] Comment on above: Performed By: #### C BC #### [facility] [address] [place] [address] Dr. Troy Jeter Urea nitrogen [Mass/Vol] 12.0 mg/dL Normal 7.0-18.0 [facility] Comment on above: Performed By: #### C BC #### [facility] [address] [place] [address] Dr. Troy Jeter Urea nitrogen/Creatinine [Mass ratio] 12.9 mg/mg Normal [facility] Comment on above: Performed By: #### C BC #### [facility] [address] [place] [address] Dr. Troy Jeter CBC AUTO DIFFon 03-29-2022 BASO # 0.0 103/ul Normal 0.0-0.1 [facility] Comment on above: Performed By: #### C YTO #### [facility] [address] [place] [address] Dr. Troy Jeter Basophils/100 WBC (Bld) 0.2 % Normal 0.2-2.0 [facility] Comment on above: Performed By: #### C YTO #### [facility] [address] [place] [address] Dr. Troy Jeter EO # 0.0 103/ul Normal 0.0-0.7 [facility] Comment on above: Performed By: #### C YTO #### [facility] [address] [place] [address] Dr. Troy Jeter Eosinophils/100 WBC (Bld) 0.2 % Critically low 0.9-7.0 [facility] Comment on above: Performed By: #### C YTO #### [facility] [address] [place] [address] Dr. Troy Jeter Erythrocyte distribution width (RBC) [Ratio] 14.0 % Normal 11.0-15.0 [facility] Comment on above: Performed By: #### C YTO #### [facility] [address] [place] [address] Dr. Troy Jeter Hematocrit (Bld) [Volume fraction] 35.4 % Critically low 36.0-48.0 [facility] Comment on above: Performed By: #### C YTO #### [facility] [address] [place] [address] Dr. Troy Jeter Hemoglobin (Bld) [Mass/Vol] 10.9 g/dL Critically low 12.0-16.0 [facility] Comment on above: Performed By: #### C YTO #### [facility] [address] [place] [address] Dr. Troy Jeter IG # 0.03 10e3/ul Normal 0.00-0.03 [facility] Comment on above: Performed By: #### C YTO #### [facility] [address] [place] [address] Dr. Troy Jeter IG % 0.5 % Normal 0.0-0.5 [facility] Comment on above: Performed By: #### C YTO #### [facility] [address] [place] [address] Dr. Troy Jeter LYMPH # 0.3 103/ul Critically low 1.2-3.8 [facility] Comment on above: Performed By: #### C YTO #### [facility] [address] [place] [address] Dr. Troy Jeter Lymphocytes/100 WBC (Bld) 5.8 % Critically low 20.5-60.0 [facility] Comment on above: Performed By: #### C YTO #### [facility] [address] [place] [address] Dr. Troy Jeter MANUAL DIFF REQ NO Normal [facility] Comment on above: Performed By: #### C YTO #### [facility] [address] [place] [address] Dr. Troy Jeter MCH (RBC) [Entitic mass] 27.3 pg Normal 26.7-34.0 [facility] Comment on above: Performed By: #### C YTO #### [facility] [address] [place] [address] Dr. Troy Jeter MCHC (RBC) [Mass/Vol] 30.8 g/dL Normal 29.9-35.2 [facility] Comment on above: Performed By: #### C YTO #### [facility] [address] [place] [address] Dr. Troy Jeter MCV (RBC) [Entitic vol] 88.7 fL Normal 81.0-99.0 [facility] Comment on above: Performed By: #### C YTO #### [facility] [address] [place] [address] Dr. Troy Jeter MONO # 0.3 103/ul Normal 0.3-0.8 [facility] Comment on above: Performed By: #### C YTO #### [facility] [address] [place] [address] Dr. Troy Jeter Monocytes/100 WBC (Bld) 6.2 % Normal 1.7-12.0 [facility] Comment on above: Performed By: #### C YTO #### [facility] [address] [place] [address] Dr. Troy Jeter NEUT # 4.8 103/ul Normal 1.4-6.5 [facility] Comment on above: Performed By: #### C YTO #### [facility] [address] [place] [address] Dr. Troy Jeter Neutrophils/100 WBC (Bld) 87.1 % Critically high 43.0-75.0 [facility] Comment on above: Performed By: #### C YTO #### [facility] [address] [place] [address] Dr. Troy Jeter Platelet mean volume (Bld) [Entitic vol] 9.6 fL Normal 9.5-13.5 [facility] Comment on above: Performed By: #### C YTO #### [facility] [address] [place] [address] Dr. Troy Jeter PLT 176 103/ul Normal 150-450 [facility] Comment on above: Performed By: #### C YTO #### [facility] [address] [place] [address] Dr. Troy Jeter RBC 3.99 106/ul Critically low 4.20-5.[address] [facility] Comment on above: Performed By: #### C YTO #### [facility] [address] [place] [address] Dr. Troy Jeter WBC 5.5 103/ul Normal 4.0-11.0 [facility] Comment on above: Performed By: #### C YTO #### [facility] [address] [place] [address] Dr. Troy Jeter PROF 14(COMP METB)on 022 Albumin [Mass/Vol] 3.1 g/dL Critically low 3.4-5.0 [facility] Comment on above: Performed By: #### C YTO #### [facility] [address] [place] [address] Dr. Troy Jeter Albumin/Globulin [Mass ratio] 0.9 {ratio} Normal [facility] Comment on above: Performed By: #### C YTO #### [facility] [address] [place] [address] Dr. Troy Jeter ALP [Catalytic activity/Vol] 58 U/L Normal 46-116 [facility] Comment on above: Performed By: #### C YTO #### [facility] [address] [place] [address] Dr. Troy Jeter ALT [Catalytic activity/Vol] 49 U/L Normal 14-59 [facility] Comment on above: Performed By: #### C YTO #### [facility] [address] [place] [address] Dr. Troy Jeter Anion gap [Moles/Vol] 15.7 mmol/L Normal [facility] Comment on above: Performed By: #### C YTO #### [facility] [address] [place] [address] Dr. Troy Jeter AST [Catalytic activity/Vol] 59 U/L Critically high 15-37 [facility] Comment on above: Performed By: #### C YTO #### [facility] [address] [place] [address] Dr. Troy Jeter Bilirubin [Mass/Vol] 0.3 mg/dL Normal 0.2-1.0 [facility] Comment on above: Performed By: #### C YTO #### [facility] [address] [place] [address] Dr. Troy Jeter Calcium [Mass/Vol] 8.1 mg/dL Critically low 8.5-10.1 [facility] Comment on above: Performed By: #### C YTO #### [facility] [address] [place] [address] Dr. Troy Jeter Chloride [Moles/Vol] 110 mmol/L Critically high 98-107 [facility] Comment on above: Performed By: #### C YTO #### [facility] [address] [place] [address] Dr. Troy Jeter CO2 [Moles/Vol] 20.8 mmol/L Critically low 21.0-32.0 [facility] Comment on above: Performed By: #### C YTO #### [facility] [address] [place] [address] Dr. Troy Jeter Creatinine [Mass/Vol] 0.94 mg/dL Normal 0.55-1.02 [facility] Comment on above: Performed By: #### C YTO #### [facility] [address] [place] [address] Dr. Troy Jeter EGFR-AF SWAZI >60 Normal >=60 [facility] Comment on above: Performed By: #### C YTO #### [facility] [address] [place] [address] Dr. Troy Jeter EGFR-NON AF SWAZI 60 mL/min/1.73m2 Normal >=60 [facility] Comment on above: Performed By: #### C YTO #### [facility] [address] [place] [address] Dr. Troy Jeter Globulin (S) [Mass/Vol] 3.4 g/dL Normal [facility] Comment on above: Performed By: #### C YTO #### [facility] [address] [place] [address] Dr. Troy Jeter Glucose [Mass/Vol] 95 mg/dL Normal 74-106 [facility] Comment on above: Performed By: #### C YTO #### [facility] [address] [address] [address] Troy Jeter Potassium [Moles/Vol] 3.5 mmol/L Normal 3.5-5.1 [facility] Comment on above: Performed By: #### C YTO #### [facility] [address] [place] [address] Dr. Troy Jeter Protein [Mass/Vol] 6.5 g/dL Normal 6.4-8.2 [facility] Comment on above: Performed By: #### C YTO #### [facility] [address] [place] [address] Dr. Troy Jeter Sodium [Moles/Vol] 143 mmol/L Normal 136-145 [facility] Comment on above: Performed By: #### C YTO #### [facility] [address] [place] [address] Dr. Troy Jeter Urea nitrogen [Mass/Vol] 18.0 mg/dL Normal 7.0-18.0 [facility] Comment on above: Performed By: #### C YTO #### [facility] [address] [place] [address] Dr. Troy Jeter Urea nitrogen/Creatinine [Mass ratio] 19.1 mg/mg Normal [facility] Comment on above: Performed By: #### C YTO #### [facility] [address] [place] [address] Dr. Troy Jeter CBC W MANUAL DIFFon 03-28-20 22 ATYPICAL LYMPH # Normal [facility] Comment on above: Performed By: #### C YTO #### [facility] [address] [place] [address] Dr. Troy Jeter ATYPICAL LYMPH % Normal [facility] Comment on above: Performed By: #### C YTO #### [facility] [address] [place] [address] Dr. Troy Jeter BAND # 0.1 103/ul Normal 0.0-0.3 [facility] Comment on above: Performed By: #### C YTO #### [facility] [address] [place] [address] Dr. Troy Jeter BAND % 1 % Normal 0-5 [facility] [facility] Comment on above: Performed By: #### C YTO #### [facility] [address] [place] [address] Dr. Troy Jeter BASOM # 0.08 103/ul Normal 0.00-0.10 [facility] Comment on above: Performed By: #### C YTO #### [facility] [address] [place] [address] Dr. Troy Jeter BASOM % 1.0 % Normal 0.2-2.0 [facility] Comment on above: Performed By: #### C YTO #### [facility] [address] [place] [address] Dr. Troy Jeter BLAST # Normal [facility] Comment on above: Performed By: #### C YTO #### [facility] [address] [place] [address] Dr. Troy Jeter BLAST % Normal [facility] Comment on above: Performed By: #### C YTO #### [facility] [address] [place] [address] Dr. Troy Jeter CORRECTED WBC Normal 4.0-11.0 [facility] Comment on above: Performed By: #### C YTO #### [facility] [address] [place] [address] Dr. Troy Jeter EOS # 0.00 103/ul Normal 0.00-0.70 [facility] Comment on above: Performed By: #### C YTO #### [facility] [address] [place] [address] Dr. Troy Jeter EOS% 0.0 % Critically low 0.9-7.0 [facility] Comment on above: Performed By: #### C YTO #### [facility] [address] [place] [address] Dr. Troy Jeter HCT 40.2 % Normal 36.0-48.0 [facility] Comment on above: Performed By: #### C YTO #### [facility] [address] [place] [address] Dr. Troy Jeter HGB 12.5 g/dl Normal 12.0-16.0 [facility] Comment on above: Performed By: #### C YTO #### [facility] [address] [place] [address] Dr. Troy Jeter LYMPHM # 0.23 103/ul Critically low 1.20-3.[address] [facility] Comment on above: Performed By: #### C YTO #### [facility] [address] [address] [address] Troy Jeter LYMPHM% 3.0 % Critically low 20.5-60.0 [facility] Comment on above: Performed By: #### C YTO #### [facility] [address] [place] [address] Dr. Troy Jeter MCH 27.1 pg Normal 26.7-34.0 [facility] Comment on above: Performed By: #### C YTO #### [facility] [address] [place] [address] Dr. Troy Jeter MCHC 31.1 g/dl Normal 29.9-35.2 [facility] Comment on above: Performed By: #### C YTO #### [facility] [address] [place] [address] Dr. Troy Jeter MCV 87.2 fL Normal 81.0-99.0 [facility] Comment on above: Performed By: #### C YTO #### [facility] [address] [place] [address] Dr. Troy Jeter METAMYELOCYTE # Normal [facility] Comment on above: Performed By: #### C YTO #### [facility] [address] [place] [address] Dr. Troy Jeter METAMYELOCYTE % Normal [facility] Comment on above: Performed By: #### C YTO #### [facility] [address] [place] [address] Dr. Troy Jeter MONOM# 0.08 103/ul Critically low 0.30-0.80 [facility] Comment on above: Performed By: #### C YTO #### [facility] [address] [place] [address] Dr. Troy Jeter MONOM% 1.0 % Critically low 1.7-12.0 [facility] Comment on above: Performed By: #### C YTO #### [facility] [address] [place] [address] Dr. Troy Jeter MPV 10.0 fL Normal 9.5-13.5 [facility] Comment on above: Performed By: #### C YTO #### [facility] [address] [address] [address] Troy Jeter MYELOCYTE # Normal [facility] Comment on above: Performed By: #### C YTO #### [facility] [address] [address] [address] Troy Jeter MYELOCYTE % Normal [facility] Comment on above: Performed By: #### C YTO #### [facility] [address] [address] [address] Troy Jeter NRBC Normal [facility] Comment on above: Performed By: #### C YTO #### [facility] [address] [address] [address] Troy Jeter PLT 230 103/ul Normal 150-450 [facility] Comment on above: Performed By: #### C YTO #### [facility] [address] [address] [address] Troy Jeter RBC 4.61 106/ul Normal 4.20-5.40 [facility] Comment on above: Performed By: #### C YTO #### [facility] [address] [address] [address] Troy Jeter RDW 13.8 % Normal 11.0-15.0 [facility] Comment on above: Performed By: #### C YTO #### [facility] [address] [address] [address] Troy Jeter SEG # 7.14 103/ul Critically high 1.40-6.50 [facility] Comment on above: Performed By: #### C YTO #### [facility] [address] [address] [address] Troy Jeter SEG % 94.0 % Critically high 43.0-75.0 [facility] Comment on above: Performed By: #### C YTO #### [facility] [address] [address] [address] Troy Jeter WBC 7.6 103/ul Normal 4.0-11.0 [facility] Comment on above: Performed By: #### C YTO #### [facility] [address] [address] [address] ABD/PELVIS WO CONon [...] ABDIAZIZ HALEY Date: 2022-03-28 16:37 Normal [facility]01 SARS-CoV-2 (COVID-19) RNA BRANDEN+probe Ql (Unsp spec) Not detected Normal NOT DETECTED [facility] Comment on above: Result Comment: When [...] for this test is supported by the Riverboat Captain of Health and Human Service's declaration that [...] used). Performed By: #### C VDTB #### [facility] [address] [place] [address] Dr. Troy Jeter ER URINE PROFILEon 2 Bilirubin Ql (U) Negative Normal NEGATIVE [facility] Comment on above: Performed By: #### C BC #### [facility] [address] [place] [address] Dr. Troy Jeter Clarity (U) CLEAR Normal CLEAR [facility] Comment on above: Performed By: #### C BC #### [facility] [address] [place] [address] Dr. Troy Jeter Color (U) LT. YELLOW Normal YELLOW [facility] Comment on above: Performed By: #### C BC #### [facility] [address] [place] [address] Dr. Troy INMAN A micrscopic examination will be performed if indicated. Normal [facility] Comment on above: Performed By: #### C BC #### [facility] [address] [place] [address] Dr. Troy Jeter Glucose Ql (U) Negative Normal NEGATIVE [facility] Comment on above: Performed By: #### C BC #### [facility] [address] [place] [address] Dr. Troy Jeter Hemoglobin Ql (U) SMALL Abnormal NEGATIVE [facility] Comment on above: Performed By: #### C BC #### [facility] [address] [place] [address] Dr. Troy Jeter Ketones Ql (U) Negative Normal NEGATIVE [facility] Comment on above: Performed By: #### C BC #### [facility] [address] [place] [address] Dr. Troy Jeter LEUKOCYTES Negative Normal NEGATIVE [facility] Comment on above: Performed By: #### C BC #### [facility] [address] [place] [address] Dr. Troy Jeter Nitrite Ql (U) Negative Normal NEGATIVE [facility] Comment on above: Performed By: #### C BC #### [facility] [address] [address] [address] Troy Jeter pH (U) 6.0 [pH] Normal 5-9 [facility] Comment on above: Performed By: #### C BC #### [facility] [address] [place] [address] Dr. Troy Jeter SPEC GRAVITY 1.020 Normal 1.005-<=1.025 [facility] Comment on above: Performed By: #### C BC #### [facility] [address] [place] [address] Dr. Troy Jeter UA PROTEIN Negative Normal NEGATIVE/ TRACE [facility] Comment on above: Performed By: #### C BC #### [facility] [address] [place] [address] Dr. Troy Jeter UR MICRO IND INDICATED Normal [facility] Comment on above: Performed By: #### C BC #### [facility] [address] [place] [address] Dr. Troy Jeter Urobilinogen Qn (U) 0.2 {Kriss'U}/dL Normal 0.2 - 1. 0 [facility] Comment on above: Performed By: #### C BC #### [facility] [address] [place] [address] Dr. Troy Jeter GI PANEL (PCR)on 03-28-2022 Adenovirus F 40/41 Not detected Normal NOT DETECTED [facility] Comment on above: Performed By: #### C YTO #### [facility] [address] [place] [address] Dr. Troy Jeter Astrovirus Not detected Normal NOT DETECTED [facility] Comment on above: Performed By: #### C YTO #### [facility] [address] [place] [address] Dr. Troy Cid. Diff toxin A/B Not detected Normal NOT DETECTED [facility] Comment on above: Performed By: #### C YTO #### [facility] [address] [place] [address] Dr. Troy Jeter Campylobacter Not detected Normal NOT DETECTED [facility] Comment on above: Performed By: #### C YTO #### [facility] [address] [place] [address] Dr. Troy Jeter Cryptosporidium Not detected Normal NOT DETECTED [facility] Comment on above: Performed By: #### C YTO #### [facility] [address] [place] [address] Dr. Troy Jeter Cyclos. Cayetanensis Not detected Normal NOT DETECTED [facility] Comment on above: Performed By: #### C YTO #### [facility] [address] [place] [address] Dr. Troy Jeter E. Coli O157 Not Applicable Normal Not Applicable [facility] Comment on above: Performed By: #### C YTO #### [facility] [address] [place] [address] Dr. Troy Jeter E. histolytica Not detected Normal NOT DETECTED [facility] Comment on above: Performed By: #### C YTO #### [facility] [address] [place] [address] Dr. Troy Jeter EAEC Not detected Normal NOT DETECTED [facility] Comment on above: Performed By: #### C YTO #### [facility] [address] [place] [address] Dr. Troy Jeter EIEC Not detected Normal NOT DETECTED [facility] Comment on above: Performed By: #### C YTO #### [facility] [address] [place] [address] Dr. Troy Jeter EPEC Not detected Normal NOT DETECTED [facility] Comment on above: Performed By: #### C YTO #### [facility] [address] [place] [address] Dr. Troy Jeter ETEC Not detected Normal NOT DETECTED [facility] Comment on above: Performed By: #### C YTO #### [facility] [address] [address] [address] Troy Souza Not detected Normal NOT DETECTED [facility] Comment on above: Performed By: #### C YTO #### [facility] [address] [address] [address] Troy KIMBROUGH CONTROLS PASSED Normal [facility] Comment on above: Performed By: #### C YTO #### [facility] [address] [address] [address] Troy PAYTON BAR HEADER GI PANEL BACTERIA Normal T [facility] Comment on above: Performed By: #### C YTO #### [facility] [address] [place] [address] Dr. Troy JIMENEZ ECOLI GI PANEL DIARRHEAGEN IC E.COLI / SHIGELLA Normal [facility] Comment on above: Performed By: #### C YTO #### [facility] [address] [place] [address] Dr. Troy JIMENEZ INFO SEE BELOW Normal [facility] Comment on above: Result Comment: EAEC - Enteroaggregative E. Coli EPEC- Enteropathogenic E. Coli ETEC- Enterotoxigenic E. Coli lt/st STEC- Shigella-like toxin-producing E. Coli stx1/stx2 EIEC- Shigella/Enteroinvasive E. Coli Performed By: #### C YTO #### [facility] [address] [place] [address] Dr. Troy JIMENEZ PARASITES GI PANEL PARASITES Normal [facility] Comment on above: Performed By: #### C YTO #### [facility] [address] [address] [address] Troy JIMENEZ VIRUS GI PANEL VIRUSES Normal [facility] Comment on above: Performed By: #### C YTO #### [facility] [address] [place] [address] Dr. Troy Jeter Norovirus GI/GII Not detected Normal NOT DETECTED [facility] Comment on above: Performed By: #### C YTO #### [facility] [address] [place] [address] Dr. Troy Jeter P. Shigelloides Not detected Normal NOT DETECTED [facility] Comment on above: Performed By: #### C YTO #### [facility] [address] [place] [address] Dr. Troy Jeter Rotavirus A Detected Abnormal NOT DETECTED [facility] Comment on above: Performed By: #### C YTO #### [facility] [address] [place] [address] Dr. Troy Jeter Salmonella Not detected Normal NOT DETECTED [facility] Comment on above: Performed By: #### C YTO #### [facility] [address] [place] [address] Dr. Troy Jeter Sapovirus Not detected Normal NOT DETECTED [facility] Comment on above: Performed By: #### C YTO #### [facility] [address] [place] [address] Dr. Troy Jeter STEC Not detected Normal NOT DETECTED [facility] Comment on above: Performed By: #### C YTO #### [facility] [address] [place] [address] Dr. Troy Jeter Vibrio Not detected Normal NOT DETECTED [facility] Comment on above: Performed By: #### C YTO #### [facility] [address] [place] [address] Dr. Troy Jeter Vibrio Cholera Not detected Normal NOT DETECTED [facility] Comment on above: Performed By: #### C YTO #### [facility] [address] [place] [address] Dr. Troy Jeter Y. Enterocolitica Not detected Normal NOT DETECTED [facility] Comment on above: Performed By: #### C YTO #### [facility] [address] [place] [address] Dr. Troy Jeter LACTATE/LACTIC ACIDon 2021 Lactate [Moles/Vol] 1.7 mmol/L Normal 0.4-1.9 [facility] Comment on above: Performed By: #### C BC #### [facility] [address] [place] [address] Dr. Troy Jeter LIPASEon 03-28-2022 Lipase [Catalytic activity/Vol] 135.0 U/L Normal 73.0-393.0 [facility] Comment on above: Performed By: #### L IPA, CMP #### [facility] [address] [place] [address] Dr. Troy Jeter PROF 14(COMP METB)on Albumin [Mass/Vol] 3.9 g/dL Normal 3.4-5.0 [facility] Comment on above: Performed By: #### L IPA, CMP #### [facility] [address] [place] [address] Dr. Troy Jeter Albumin/Globulin [Mass ratio] 1.0 {ratio} Normal [facility] Comment on above: Performed By: #### L IPA, CMP #### [facility] [address] [place] [address] Dr. Troy Jeter ALP [Catalytic activity/Vol] 81 U/L Normal 46-116 [facility] Comment on above: Performed By: #### L IPA, CMP #### [facility] [address] [place] [address] Dr. Troy Jeter ALT [Catalytic activity/Vol] 45 U/L Normal 14-59 [facility] Comment on above: Performed By: #### L IPA, CMP #### [facility] [address] [place] [address] Dr. Troy Jeter Anion gap [Moles/Vol] 15.2 mmol/L Normal [facility] Comment on above: Performed By: #### L IPA, CMP #### [facility] [address] [place] [address] Dr. Troy Jetre AST [Catalytic activity/Vol] 42 U/L Critically high 15-37 [facility] Comment on above: Performed By: #### L IPA, CMP #### [facility] [address] [place] [address] Dr. Troy Jeter Bilirubin [Mass/Vol] 0.5 mg/dL Normal 0.2-1.0 [facility] Comment on above: Performed By: #### L IPA, CMP #### [facility] [address] [place] [address] Dr. Troy Jeter Calcium [Mass/Vol] 9.4 mg/dL Normal 8.5-10.1 [facility] Comment on above: Performed By: #### L IPA, CMP #### [facility] [address] [address] [address] Troy Jeter Chloride [Moles/Vol] 105 mmol/L Normal 98-107 [facility] Comment on above: Performed By: #### L IPA, CMP #### [facility] [address] [place] [address] Dr. Troy Jeter CO2 [Moles/Vol] 23.7 mmol/L Normal 21.0-32.0 [facility] Comment on above: Performed By: #### L IPA, CMP #### [facility] [address] [place] [address] Dr. Troy Jeter Creatinine [Mass/Vol] 0.91 mg/dL Normal 0.55-1.02 [facility] Comment on above: Performed By: #### L IPA, CMP #### [facility] [address] [place] [address] Dr. Troy Jeter EGFR-AF SWAZI >60 Normal >=60 [facility] Comment on above: Performed By: #### L IPA, CMP #### [facility] [address] [place] [address] Dr. Troy Jeter EGFR-NON AF SWAZI >60 Normal >=60 [facility] Comment on above: Performed By: #### L IPA, CMP #### [facility] [address] [place] [address] Dr. Troy Jeter Globulin (S) [Mass/Vol] 4.0 g/dL Normal [facility] Comment on above: Performed By: #### L IPA, CMP #### [facility] [address] [place] [address] Dr. Troy Jeter Glucose [Mass/Vol] 119 mg/dL Critically high 74-106 [facility] Comment on above: Performed By: #### L IPA, CMP #### [facility] [address] [address] [address] Troy Jeter Potassium [Moles/Vol] 3.9 mmol/L Normal 3.5-5.1 [facility] Comment on above: Performed By: #### L IPA, CMP #### [facility] [address] [place] [address] Dr. Troy Jeter Protein [Mass/Vol] 7.9 g/dL Normal 6.4-8.2 [facility] Comment on above: Performed By: #### L IPA, CMP #### [facility] [address] [place] [address] Dr. Troy Jeter Sodium [Moles/Vol] 140 mmol/L Normal 136-145 [facility] Comment on above: Performed By: #### L IPA, CMP #### [facility] [address] [place] [address] Dr. Troy Jeter Urea nitrogen [Mass/Vol] 16.0 mg/dL Normal 7.0-18.0 [facility] Comment on above: Performed By: #### L IPA, CMP #### [facility] [address] [place] [address] Dr. Troy Jeter Urea nitrogen/Creatinine [Mass ratio] 17.6 mg/mg Normal [facility] Comment on above: Performed By: #### L IPA, CMP #### [facility] [address] [place] [address] Dr. Troy Jeter URINE MICROSCOPIC ONLYon BACTERIA TRACE Abnormal NONE SEEN [facility] Comment on above: Performed By: #### C BC #### [facility] [address] [place] [address] Dr. Troy Jeter Bacteria identified Cx Nom (U) NOT INDICATED Normal [facility] Comment on above: Performed By: #### C BC #### [facility] [address] [place] [address] Dr. Troy Jeter CAST NONE SEEN Normal NONE SEEN [facility] Comment on above: Performed By: #### C BC #### [facility] [address] [place] [address] Dr. Troy Jeter Crystals LM Nom (Urine sed) NONE SEEN Normal NONE SEEN [facility] Comment on above: Performed By: #### C BC #### [facility] [address] [place] [address] Dr. Troy Jeter Epithelial cells LM Ql (Urine sed) FEW Abnormal NONE SEEN /RARE [facility] Comment on above: Performed By: #### C BC #### [facility] [address] [place] [address] Dr. Troy Jeter MUCOUS NONE SEEN Normal NONE SEEN [facility] Comment on above: Performed By: #### C BC #### [facility] [address] [place] [address] Dr. Troy Jeter RBC 2-5 Abnormal 0-2 [facility] Comment on above: Performed By: #### C BC #### [facility] [address] [place] [address] Dr. Troy Jeter WBC 0-2 Abnormal NONE SEEN [facility] Comment on above: Performed By: #### C BC #### [facility] [address] [place] [address] Dr. Troy Jeter [facility] Surgical Pathology Department Name DANIELLA BEJARANO Pathologist: AMEE KELSEY DMD Date of Procedure: 08/13/2020 Date Received: 08/17/2020 Date Reported 08/25/2020 Submitting Physician: BUTCH LONG DDS Location: [facility] Other External # FINAL DIAGNOSIS A. LEFT LATERAL TONGUE, EXCISION: -- TRAUMATIC ULCER -- NEGATIVE FOR DYSPLASIA OR MALIGNANCY ICD-10/CPT: [id number] Electronically Signed Out By AMEE KELSEY DMD/ARASELI [...] sectioned and entirely submitted in 2 cassettes. [facility] Summary of Cassettes: Specimen Label Site A 1 tips 2 body of ellipse [facility]/08/19/2020 [facility] Department of Pathology [address] [place] [address] Normal [facility] Comment on above: Performed By: #### [facility] #### [facility] Surgical Pathology Department [address] [place] [address] Cardiovascular Lab Reporton 06-12-2020 Cardiovascular Lab Report [facility] Patient Name: A[facility] Chris MR #: [id number] Department of Physician: Audie Bustos M.D. Division of Service Date: 06/11/2020 Cardiology Birthdate: 1960 Adult Cardiovascular Room #: [address] [place] [address] Cardiovascular Laboratory Report INDICATION: The patient a [...] signed informed consent. She was brought to labor training manager in a fasting state. The right neck area was prepped and draped in usual fashion. Using ultrasound guidance and micropuncture technique, the right internal jugular vein was accessed. A 6-South Sudanese x 11 cm sheath was placed. A 6-[place] Duron catheter was used for right heart catheterization with measurement of pressures and calculation of cardiac output using the estimated Daysi method. Duron catheter was removed. Access in the right radial artery was obtained using micropuncture technique. A 6-[place]ese x 11 cm Hydrophilic sheath was advanced. Verapamil was given through the sheath and heparin was administered intravenously. Note that modified David's test was favorable on the right. Initial catheter advancement was made, feasible using an angled Glidewire to overcome a radial artery loop, following which bilateral selective coronary angiography was performed using 6-[place]ese JL3.5 and JR5 diagnostic catheter. Catheters were [...] Bustos M.D. Date Trans: 06/12/2020 04:00 A/veenao [id number] cc: Bayron Singh M.D. [address] [facility] [address] Normal [facility] *SARS-CoV-2 COVID-19on 06-09 [id number] Not Detected Normal Not Detected [facility] Comment on above: Order Comment: The A ptima SARS-CoV-2 assay is a nucleic acid amplification test intended for the qualitative detection of RNA from SARS-CoV-2 isolated and purified from nasopharyngeal (RIVERBOAT CAPTAIN),oropharyngeal (OP), nasal swab, sputum, and bronchoalveolar lavage (BAL) specimens from patients with signs and symptoms of infection who are suspected of COVID-19. Results are for the identification of SARS-CoV-2 RNA. The SARS-CoV-2 RNA is generally detectable during the acute phase of infection. The Aptima SARS-CoV-2 Assay on the [employer] Fusion system is intended for use by laboratory personnel specifically instructed and trained in the operation of the [employer] and [employer] [employer] system. The Aptima SARS-CoV-2 assay is [...] information. Performed By: #### 3 [id number] #### [facility] Keyla DAVIS [place], [place] [id number] [place] [address] 02-17-2020 CNPN Telephone (HEMASA) PINODANIELLA Mayfield ([id number]) 1960 F Date Time Provider Department 02/17/20 BONNY FELIPE During your visit today, we recorded the following information about you: Ai Blount 02/17/2020 2:53 PM Signed Records faxed to [facility]. Allergies As of Date: 02/17/2020 (No [...] Status:Closed by AI COLVIN on 02/17/20 Normal [facility] Vital Signs Date Time Vital Sign Value Performing Clinician Facility 04-26-2023 10:40-0400 Heart rate 84 /min Jeff Booth [facility] 04-26-2023 10:40-0400 SaO2% (BldA) [Mass fraction] 98 % Jeff Booth [facility] 04-26-2023 10:40-0400 Body temperature 97.52 [degF] Jeff Booth [facility] 04-26-2023 10:39-0400 Diastolic blood pressure 75 mm[Hg] Jeff Booth [facility] 04-26-2023 10:39-0400 Mean blood pressure 87 mm[Hg] Jeff Booth [facility] 04-26-2023 10:39-0400 Systolic blood pressure 111 mm[Hg] Jeff Booth [facility] 04-26-2023 10:39-0400 Respiratory rate 16 /min Jeff Booth [facility] 01-04-2023 08:01-0500 Blood Pressure Location Dina Lue [facility] 01-04-2023 08:01-0500 Diastolic blood pressure 82 mm[Hg] Dina Lue [facility] 01-04-2023 08:01-0500 Heart rate 71 /min Dina Lue [facility] 01-04-2023 08:01-0500 Systolic blood pressure 124 mm[Hg] Dina Lue [facility] 10-26-2022 10:26-0500 Blood Pressure Location AI RUY [facility] 10-26-2022 10:26-0500 Diastolic blood pressure 84 mm[Hg] AI RUY [facility] 10-26-2022 10:26-0500 Heart rate 65 /min AI RUY [facility] 10-26-2022 10:26-0500 Respiratory rate 16 /min AI RUY [facility] 10-26-2022 10:26-0500 Systolic blood pressure 123 mm[Hg] AI MITCHELL [facility] 10-19-2022 08:01-0500 Blood Pressure Location Dina Lue [facility] 10-19-2022 08:01-0500 Diastolic blood pressure 64 mm[Hg] Dina Lue [facility] 10-19-2022 08:01-0500 Heart rate 66 /min Dina Lue [facility] 10-19-2022 08:01-0500 Systolic blood pressure 145 mm[Hg] Dina Lue [facility] 10-12-2022 08:11-0500 Blood Pressure Location Dina Lue [facility] 10-12-2022 08:11-0500 Diastolic blood pressure 68 mm[Hg] Dina Lue [facility] 10-12-2022 08:11-0500 Heart rate 74 /min Dina Lue [facility] 10-12-2022 08:11-0500 Respiratory rate 16 /min Dina Lue [facility] 10-12-2022 08:11-0500 Systolic blood pressure 132 mm[Hg] Dina Lue [facility] 07-06-2022 10:28-0400 Blood Pressure Location Dina Lue [facility] 07-06-2022 10:28-0400 Diastolic blood pressure 62 mm[Hg] Dina Lue [facility] 07-06-2022 10:28-0400 Heart rate 74 /min Dina Lue [facility] 07-06-2022 10:28-0400 Respiratory rate 16 /min Dina Lue [facility] 07-06-2022 10:28-0400 Systolic blood pressure 98 mm[Hg] Dina Lue [facility] 03-02-2022 09:27-0400 Blood Pressure Location AI RUY [facility] 03-02-2022 09:27-0400 Diastolic blood pressure 66 mm[Hg] AI RUY [facility] 03-02-2022 09:27-0400 Heart rate 64 /min AI RUY [facility] 03-02-2022 09:27-0400 Systolic blood pressure 137 mm[Hg] AI RUY [facility] 02-09-2022 08:17-0400 Blood Pressure Location Dina Lue [facility] 02-09-2022 08:17-0400 Diastolic blood pressure 64 mm[Hg] [facility] 02-09-[facility] 08:17-0400 Heart rate 60 /min [facility] 02-09-2022 08:17-0400 Respiratory rate 16 /min Dina Lue [facility] 02-09-2022 08:17-0400 Systolic blood pressure 133 mm[Hg] Dina Lue [facility] 02-02-2022 08:03-0400 Blood Pressure Location Dina Lue [facility] 02-02-2022 08:03-0400 Diastolic blood pressure 100 mm[Hg] Dina Lue [facility] 02-02-2022 08:03-0400 Heart rate 72 /min [facility] 02-02-2022 08:03-0400 Systolic blood pressure 144 mm[Hg] [facility] 01-26-2022 08:18-0400 Blood Pressure [facility] 01-26-2022 08:18-0400 Diastolic blood pressure 75 mm[Hg] Dina Lue [facility] 01-26-2022 08:18-0400 Heart rate 56 /min Dina Cobb [facility] [place] 01-26-2022 08:18-0400 Systolic blood pressure 128 mm[Hg] Dina Cobb [facility] Encounters Encounter Date Encounter Type Care Provider Facility Start: 11-15-2023 End: 11-15-2023 ambulatory BAYRON SINGH Not Available Start: 10-04-2023 ambulatory [facility] Start: 06-28-2023 End: 06-28-2023 ambulatory [facility] Start: 06-02-2023 End: 06-02-2023 ambulatory [facility] Start: 05-26-2023 End: 05-26-2023 ambulatory [facility] Start: 05-19-2023 End: 05-19-2023 [facility] Start: 05-16-2023 ambulatory AI E RUY Facili ty:[facility] Start: 05-12-2023 End: 05-12-2023 ambulatory [facility] Start: 05-09-2023 ambulatory AI E RUY Facili ty:[facility] Start: 05-05-2023 End: 05-05-2023 ambulatory [facility] Start: 04-28-2023 End: 04-28-2023 ambulatory [facility] Start: 04-26-2023 End: 04-27-2023 ambulatory Jeff Booth Facility:[facility] Start: 04-26-2023 End: 04-26-2023 Patient encounter procedure Jeff Booth [facility] Start: 04-25-2023 ambulatory AI Javon MITCHELL Ursula ty:[facility] Start: 04-04-2023 End: 04-06-2023 ambulatory [facility] Start: 03-30-2023 End: 03-31-2023 ambulatory [facility] Start: 03-28-2023 End: 03-28-2023 ambulatory [facility] Start: 03-16-2023 End: 03-17-2023 ambulatory [facility] Start: 03-13-2023 ambulatory [facility] Start: 03-13-2023 End: 03-13-2023 ambulatory [facility] Start: 03-08-2023 Encounter for genera l adult medical examination without abnormal findings DR BAYRON SINGH [facility] Start: 03-06-2023 End: 03-07-[address] BAYRON SINGH Facility:[facility] Start: 03-02-2023 End: 03-03-[address] BAYRON SINGH Facility:[facility] Start: 03-02-2023 End: 03-03-2023 Encounter for general adult medical examination without abnormal findings DR BAYRON SINGH Facility:[facility] Start: 02-22-2023 End: 02-22-2023 ambulatory [facility] Start: 01-04-2023 End: 01-05-2023 ambulatory Dina Cobb Facility:[facility] Start: 01-04-2023 End: 01-04-2023 Patient encounter procedure Dina Cobb [facility] Start: 01-02-2023 ambulatory Dina Cobb Facility:[facility] Start: 12-28-2022 End: 12-29-2022 ambulatory DINA COBB . Facility:[facility] Start: 12-25-2022 Encounter for preprocedural cardiovascular examination DINA COBB . [facility] Start: 12-21-2022 End: 12-22-2022 ambulatory DINA COBB . Facility: Start: 12-21-2022 End: 12-22-2022 Encounter for preprocedural cardiovascular examination DINA COBB . Facility: Start: 12-14-2022 End: 12-15-2022 ambulatory Blanca Chris Bowler Facility:[facility] Start: 12-14-2022 End: 12-14-2022 Lab Drop off Blanca Mckaymons [facility] Start: 12-14-2022 End: 12-14-2022 Patient encounter procedure Dina Cobb [facility] Start: 12-07-2022 End: 12-08-2022 ambulatory DINA COBB . Facility: Start: 11-23-2022 End: 11-24-[address] BAYRON SINGH Facility: Start: 11-05-2022 End: 11-05-[address] BAYRON SINGH Facility: Start: 10-28-2022 ambulatory Dina Cobb Facility:[facility] Start: 10-26-2022 End: 10-26-2022 Patient encounter procedure AI MITCHELL [facility] Start: 10-26-2022 End: 10-27-2022 ambulatory AI MITCHELL Facility:[facility] [place] Start: 10-19-2022 End: 10-20-2022 ambulatory Dina Cobb Facility:[facility] [place] Start: 10-19-2022 End: 10-19-2022 Patient encounter procedure Dina Cobb [facility] Start: 10-12-2022 End: 10-13-2022 ambulatory Dina Cobb Facility:[facility] [place] Start: 10-12-2022 End: 10-12-2022 Patient encounter procedure Dina M. Lue [facility] Start: 10-05-2022 ambulatory Dina Lue Facility:[facility] Start: 09-02-2022 End: 09-03-[address] MICAELA DE . Facility: Start: 08-10-2022 End: 08-11-2022 ambulatory DINA M LUE . Facility: Start: 07-22-2022 End: 07-23-2022 ambulatory DINA M LUE . Facility: Start: 07-06-2022 End: 07-07-2022 ambulatory Dina M. Lue Facility:[facility] Start: 07-06-2022 End: 07-06-2022 Patient encounter procedure Dina M. Lue [facility] Start: 07-01-2022 End: 07-02-2022 ambulatory DINA M LUE . Facility: Start: 06-29-2022 End: 06-30-2022 ambulatory Dina M. Lue [facility] Start: 06-29-2022 End: 06-29-2022 Patient encounter procedure Dina M. Lue [facility] Start: 06-22-2022 End: 06-22-2022 Patient encounter procedure Dina M. Lue [facility] Start: 05-26-2022 End: 05-27-[address] BAYRON SINGH Facility: Start: 05-18-2022 End: 05-18-2022 Patient encounter procedure Dina M. Lue [facility] Start: 05-11-2022 End: 05-11-2022 ambulatory IDNA M LUE . Facility: Start: 05-09-2022 Encounter for preprocedural laboratory examination DINA M LUE . [facility] Start: 05-04-2022 End: 05-05-2022 ambulatory DINA M LUE . Facility:[facility] Start: 05-04-2022 End: 05-05-2022 Encounter for preprocedural laboratory examination DINA M LUE . Facility:[facility] Start: 04-27-2022 End: 04-27-2022 ambulatory DINA M LUE . Facility:[facility] Start: 04-11-2022 End: 04-12-[address] BAYRON SINGH Facility:[facility] Start: 03-28-2022 End: 03-31-[address] BAYRON SINGH Facility: Start: 03-25-2022 End: 03-25-2022 Lab Drop off Loco MARRERO [facility] Start: 03-25-2022 End: 03-25-2022 Patient encounter procedure Loco MARRERO [facility] Start: 03-02-2022 End: 03-02-2022 Patient encounter procedure AI MITCHELL [facility] Start: 02-09-2022 End: 02-09-2022 Patient encounter procedure Dina M. Lue [facility] Start: 02-02-2022 End: 02-02-2022 Patient encounter procedure Dina M. Lue [facility] Start: 01-26-2022 End: 01-26-2022 Lab Drop off Dina M. Lue [facility] Start: 01-26-2022 End: 01-26-2022 Patient encounter procedure Dina Cobb [facility] Start: 03-26-2021 End: 03-27-2021 ambulatory Referral Self Facility:[facility] Start: 06-11-2020 End: 06-12-2020 Patient encounter procedure PROVIDER UNKNOWN Facility:[facility] Procedures Date Procedure Procedure Detail Performing Clinician [...] Transurethral resect ion of bladder neoplasm Dina Robertoe Start: 07-14-2021 Cystoscope, device ( physical object) Dina Lue Bilateral replacemen t of knee joints Dina Lue Breast surgery (qual ifier value) Dina Lue Cholecystectomy Dina Lue H/O: hysterectomy Dina Lue Tonsillectomy Dina Lue Immunizations Immunization Date Immunization Notes Care Provider Machelle douglas 10-26-2022 bacillus calmette-gu nestor vaccine AI RUY [facility] 10-19-2022 bacillus calmette-gu nestor vaccine Dina Lue [facility] 10-12-2022 bacillus calmette-gu nestor vaccine Dina Lue [facility] 09-02-2022 SARS-CoV-2 (COVID-19 ) mRNA-7993 vaccine Dina Lue [facility] 08-04-2022 influenza virus vacc ine, unspecified formulation Dina Lue [facility] 07-26-2022 bacillus calmette-gu nestor vaccine Dina Lue [facility] 07-06-2022 bacillus calmette-gu nestor vaccine Dina Lue [facility] 06-29-2022 bacillus calmette-gu nestor vaccine Dina Lue [facility] 06-22-2022 bacillus calmette-gu nestor vaccine Dina Lue [facility] 03-02-2022 bacillus calmette-gu nestor vaccine AI RUY [facility] 02-23-2022 bacillus calmette-gu nestor vaccine AI RUY [facility] 02-16-2022 bacillus calmette-gu nestor vaccine AI RUY [facility] 02-09-2022 bacillus calmette-gu nestor vaccine Dina Lue [facility] 02-02-2022 bacillus calmette-gu nestor vaccine Dina Lue [facility] 01-26-2022 bacillus calmette-gu nestor vaccine Dina Lue [facility] 12-17-2021 pneumococcal polysaccharide vaccine, 23 valent Dina Lue [facility] 10-27-2021 bacillus calmette-gu nestor vaccine Dina Lue [facility] 10-19-2021 bacillus calmette-gu nestor vaccine Dina Lue [facility] 10-13-2021 bacillus calmette-gu nestor vaccine Dina Lue [facility] 10-06-2021 bacillus calmette-gu nestor vaccine Dina Lue [facility] 09-29-2021 bacillus calmette-gu nestor vaccine Dina Lue [facility] 09-22-2021 bacillus calmette-gu nestor vaccine Dina Lue [facility] 08-20-2021 SARS-CoV-2 (COVID-19 ) mRNA-1273 vaccine Dina Lue [facility] 08-19-2021 influenza virus vacc ine, unspecified formulation AI MITCHELL [facility] 07-30-2021 influenza virus vacc ine, unspecified formulation Dina Lujavon [facility] 11-26-2020 SARS-CoV-2 (COVID-19 ) mRNA-1273 vaccine Dina Lue [facility] 10-28-2020 SARS-CoV-2 (COVID-19 ) mRNA-1273 vaccine Dina Lujavon [facility] 07-18-2018 influenza virus vacc ine, unspecified formulation Dina Cobb [facility] 07-30-2015 pneumococcal polysaccharide vaccine, 23 valent Dina Lue [facility] Payers Date Payer Category Payer Unknown [id number] 2020 Self-pay [id number] 2019 Unknown [id number] 1959 Self-pay [id number] 1959 Unknown [id number] 1960 Unknown [id number] 2.16.8 40.1.590307.3.579.2.647 1960 Unknown [id number] 2.16.84 0.1.455637.3.579.2.593 1960 Unknown [id number] 2.16.84 0.1.830920.3.579.2.593 1960 Unknown [id number] 2.16.84 0.1.831301.3.579.2.593 1960 Unknown [id number] 2.16.84 0.1.988445.3.579.2.593 1958 Unknown [id number] 2.16.84 0.1.121008.3.579.2.593 1958 Unknown [id number] 2.16.84 0.1.552758.3.579.2.593 1958 Unknown [id number] 2.16.84 0.1.229844.3.579.2.593 1958 Unknown [id number] 2.16.84 0.1.371861.3.579.2.593 1958 Unknown [id number] 2.16.84 0.1.233516.3.579.2.593 1958 Unknown [id number] 2.16.84 0.1.446478.3.579.2.593 1958 Unknown [id number] 2.16.84 0.1.392552.3.579.2.593 1958 Unknown [id number] 2.16.84 0.1.965423.3.579.2.593 1958 Unknown [id number] 2.16.84 0.1.923476.3.579.2.593 1958 Unknown [id number] 2.16.84 0.1.065024.3.579.2.593 1958 Unknown [id number] 2.16.84 0.1.589541.3.579.2.593 1958 Unknown [id number] 2.16.84 0.1.113989.3.579.2.593 1958 Unknown [id number] 2.16.8 40.1.812817.3.579.2.727 1958 Unknown [id number] 2.16.8 40.1.034045.3.579.2.727 1958 Unknown [id number] 2.16.8 40.1.137357.3.579.2.72 1958 Unknown [id number] 2.16.8 40.1.657856.3.579.2.72 1958 Unknown [id number] 2.16.8 40.1.303334.3.579.2.727 1958 Unknown [id number] 2.16.8 40.1.980747.3.579.2.727 1958 Unknown [id number] 2.16.8 40.1.655146.3.579.2.727 1958 Unknown [id number] 2.16.8 40.1.497027.3.579.2.72 1958 Unknown [id number] 2.16.8 40.1.506745.3.579.2.727 1958 Unknown [id number] 2.16.8 40.1.038621.3.579.2.727 1958 Unknown [id number] 2.16.8 40.1.843671.3.579.2.727 1958 Unknown [id number] 2.16.8 40.1.820110.3.579.2.72 1958 Unknown [id number] 2.16.8 40.1.585658.3.579.2.727 1958 Unknown [id number] 2.16.8 40.1.801777.3.579.2.72 1958 Unknown [id number] 2.16.8 40.1.118056.3.579.2.727 1958 Unknown [id number] 2.16.8 40.1.973665.3.579.2.727 1958 Unknown [id number] 2.16.8 40.1.972242.3.579.2.727 1958 Unknown [id number] 2.16.8 40.1.505999.3.579.2.727 1958 Unknown [id number] 2.16.8 40.1.521641.3.579.2.727 1958 Unknown [id number] 2.16.84 0.1.284713.3.579.2.1259 Unknown [id number] 2.16.84 0.1.960600.3.579.2.593 Unknown [id number] 2.16.8 40.1.552506.3.579.2.531 Social History Date Type Detail Facility Start: 01-26-2022 End: 10-12-2022 Tobacco smoking status Ex-smoker (finding) [facility] Tobacco smoking status Never [facility] Sex Assigned At Female [facility] Start: 1960 Sex Assigned At Female F [facility] Functional Status Date Assessment Result Facility 01-04-2023 Functional Status N/A [facility] 10-26-2022 Functional Status N/A [facility] 10-19-2022 Functional Status N/A [facility] 10-12-2022 Functional Status N/A [facility] 07-06-2022 Functional Status N/A [facility] 06-22-2022 Functional Status N/A [facility] 05-18-2022 Functional Status N/A [facility] Clinical Notes 01-26-2022 to 10-04-2023 Note Date & Type Note Facility 10-04-2023 Note Satisfactory for michele luation. Examination of the ThinPrep slide reveals benign urothelial cells and squamous cells in a background of lubricant. [facility] Comment on above: Order Comment: Via c ysto Performed By: #### L [id number] #### [facility] ([facility]) [address] [place] [address] 10-04-2023 Note Patient ID: Daniella Bejarano is [...] the procedure room for the entire procedure. [facility] 10-04-2023 Note I PATIENT: Daniella Bejarano DATE [...] recurrent bladder tumor. Pathology revealed high-grade noninvasive paper supervisor, muscularis propria present and uninvolved. - 01/26/2022: [...] diagnosis bilaterally. Therefore she was referred to ia for further management. Ms. Bejarano underwent white [...] of malignancy, th (more content not included)... [facility] 06-28-2023 Note Satisfactory for michele luation. Examination of the ThinPrep slide reveals squamous cells and scattered urothelial cells in a background of few inflammatory cells and lubricant. [facility] Comment on above: Order Comment: Via jose roberto reyes Performed By: #### L [id number] #### [facility] ([facility]) [address] [place] [address] 06-28-2023 Note Patient ID: Daniella Bejarano is [...] the procedure room for the entire procedure. [facility] 06-28-2023 Note I PATIENT: Daniella Bejarano [...] recurrent bladder tumor. Pathology revealed high-grade noninvasive paper supervisor, muscularis propria present and uninvolved. - 01/26/2022: [...] diagnosis bilaterally. Therefore she was referred to ia for further management. Ms. Bejarano underwent white [...] of malignancy, th (more content not included)... [facility] 06-02-2023 Note Bernarda Hagan RN e [...] Center. Bernarda Hagan RN then informed Infusion chalk machine operator that Daniella A Neikirk was ready for treatment. [facility] 05-26-2023 Note Danielle Briggs MA expl [...] [place] [id number] down to the Infusion Center. Danielle Briggs MA then informed Infusion chalk machine operator that Daniella A Neikirk was ready for treatment. [facility] 05-19-2023 Note [id number] Zaria Jackson exp [...] bag of personal belongings, then transported by [id number] down to the Infusion Center. [id number] then informed Infusion chalk machine operator that Daniella A Neikirk was ready for treatment. [facility] 05-12-2023 Note 1110 Patient arrived by [...] drugs, at separate times, intravesicular instillations. CPetersRN [facility] 05-12-2023 Note [id number] Jackson expl ained [...] the Infusion Center. [id number] then informed Infusion chalk machine operator that Daniella Perez Neikirk was ready for treatment. [facility] 05-05-2023 Note 1040- pt arrived to [...] or spasms.gutierrez catheter removed after completely drained. [facility] 05-05-2023 Note Zaria borjae d the [...] Infusion Center. [id number] Zaria collier informed Infusion chalk machine operator that Daniella Perez Neikirk was ready for treatment. [facility] 04-28-2023 Note Pt arrived with fole y in place from urology clinic draining clear yellow urine. Docetaxel instilled and held 60 minutes, drained to gutierrez bag. Gemcitabine instilled and held 60 minutes, drained to gutierrez bag. Gutierrez removed upon completion, tolerated treatment well. Reviewed home precautions with patient. [facility] 04-28-2023 Note [id number] Zaria Jackson exp [...] the Infusion Center. [id number] then informed Infusion chalk machine operator that Daniella Bejarano was ready for treatment. Zaheer Briggs [facility] 04-04-2023 Note I PATIENT: Daniella Bejarano [...] recurrent bladder tumor. Pathology revealed high-grade noninvasive paper supervisor, muscularis propria present and uninvolved. - 01/26/2022: [...] diagnosis bilaterally. Therefore she was referred to ia for further management. Ms. Bejarano underwent white [...] nocturia x2, sometim (more content not included)... [facility] 03-28-2023 Note . [facility] 03-28-2023 Note I PATIENT: Daniella Bejarano DATE [...] recurrent bladder tumor. Pathology revealed high-grade noninvasive paper supervisor, muscularis propria present and uninvolved. - 01/26/2022: [...] diagnosis bilaterally. Therefore she was referred to ia for further management. Ms. Bejarano underwent white [...] 2-3 hours, noct (more content not included)... [facility] 03-13-2023 Note Patient: Daniella stevens Procedure Summary Date: 03/13/23 Room / Location: [facility] OPERATING ROOM 07 / [facility] Operating Room Anesthesia Start: 30 Anesthesia Stop: 08 Procedures: White and Blue-light cystoscopy, BLADDER BIOPSY, [...] Resp 20 03/13/23 0911 SpO2 100 % 03/13/2311 Anesthesia Post Evaluation Patient location during evaluation: [...] no known notable events for this encounter. [facility] 03-13-2023 Note Patient: Daniella stevens Procedure Summary Date: 03/13/23 Room / Location: [facility] OPERATING ROOM 07 / [facility] Operating Room Anesthesia Start: 30 Anesthesia [...] observation Transport: uneventful Patient condition is: stable [facility] 03-13-2023 Note Airway Date/Time: 03/13/2023 7:47 AM Urgency: elective Airway not difficult General Information and Staff Patient location during procedure: OR Anesthesiologist: Aleksey Barraza MD Resident/CLEAT LAYER/CAA: JOAN Le Performed: other anesthesia staff Indications [...] 1 Number of other approaches attempted: 0 [facility] 03-13-2023 Note Satisfactory for michele luation. Examination of the ThinPrep slide reveals rare atypical urothelial cells with increased n/c ratio and mild nuclear membrane irregularities. 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 Additional Equipment Requests [facility] 02-22-2023 Note Satisfactory for michele luation. Examination of the ThinPrep slide reveals primarily squamous cells with scattered urothelial cells and bacteria. This may represent contamination from the lower female genital tract. [facility] Comment on above: Performed By: #### L AB13 #### [facility] ([place]) [place] [address] 02-22-2023 Note PATIENT: Daniella stevens DATE OF [...] recurrent bladder tumor. Pathology revealed high-grade noninvasive paper supervisor, muscularis propria present and uninvolved. - 01/26/2022: [...] past medical history of Arthritis, Bladder cancer ([facility]), Breast cancer ([facility]) (2018), GERD (gastroesophageal reflux disease), History of [...] , Rfl: ergocalciferol (Vitamin D-2) 1.25 MG (38114 Units) capsule, Take by mouth., Disp: , [...] Rfl: calcium carb-vitam (more content not included)... [facility] 01-04-2023 Hospital Discharge instructions Patient Education [...] cells. Follow these instructions at home: Take sfrs-ole-tdfdxuk and prescription medicines only as told by [...] is important. Where to find more information [employer] [employer]: www.cancer.org National Cancer Breeding (NCI): www.cancer.gov Contact a health care provider [...] 10/18/2004 Document Revised: 09/28/2018 Document Reviewed: 09/19/2017 [employer] Patient Education 2020 USERE[employer] Follow Up Care 01/02/2023 12:19:37 With:Reza JAMES, ISAIAH Mckeon, URO Address: When: Unknown [facility] 10-19-2022 Hospital Discharge instructions Patient Education 10/19/2022 [...] cells. Follow these instructions at home: Take ljhb-msw-xgpoopk and prescription medicines only as told by [...] is important. Where to find more information [employer] [employer]: www.cancer.org National Cancer Breeding (NCI): www.cancer.gov Contact a health care provider [...] 10/18/2004 Document Revised: 09/28/2018 Document Reviewed: 09/19/2017 [employer] Patient Education 2020 [employer]. [facility] 10-12-2022 Hospital Discharge instructions Patient Education 10/12/2022 [...] cells. Follow these instructions at home: Take wigf-bde-smlqjsl and prescription medicines only as told by [...] is important. Where to find more information [place] [employer]: www.cancer.org National Cancer Breeding (NCI): www.cancer.gov Contact a health care provider [...] 10/18/2004 Document Revised: 09/28/2018 Document Reviewed: 09/19/2017 [employer] Patient Education [employer]. Follow Up Care 08/22/2022 12:52:59 With:Reza JAMES, ISAIAH Mckeon, URO Address: When:1 week Comments:BCG #2 of #3 [facility] 10-05-2022 Hospital Discharge instructions Follow Up Care 10/05/2022 15:19:40 With:AI MITCHELL PA-C, URL Address: [address] [place] [address] When: Unknown [facility] 07-06-2022 Hospital Discharge instructions Patient Education 07/06/2022 [...] cells. Follow these instructions at home: Take qclq-jeu-siwwxju and prescription medicines only as told by [...] is important. Where to find more information [place] [employer]: www.cancer.org National Cancer Breeding (NCI): www.cancer.gov Contact a health care provider [...] 10/18/2004 Document Revised: 09/28/2018 Document Reviewed: 09/19/2017 [employer] Patient Education 2020 [employer]. Follow Up Care 05/18/2022 11:12:11 With:Reza JAMES, ISAIAH Mckeon, URO Address: When: Unknown [facility] 06-29-2022 Hospital Discharge instructions Patient Education 06/29/2022 [...] cells. Follow these instructions at home: Take bomp-bgb-tgxighi and prescription medicines only as told by [...] is important. Where to find more information [place] [employer]: www.cancer.org National Cancer Breeding (NCI): www.cancer.gov Contact a health care provider [...] 10/18/2004 Document Revised: 09/28/2018 Document Reviewed: 09/19/2017 [employer] Patient Education 2020 [employer]. Follow Up Care 05/18/2022 11:11:14 With:Reza JAMES, ISAIAH Mckeon, URO Address: When:Within 1 Week(s) Comments:BCG #3 [facility] 06-22-2022 Hospital Discharge instructions Patient Education 06/22/2022 [...] cells. Follow these instructions at home: Take gltu-lwx-coletsx and prescription medicines only as told by [...] is important. Where to find more information [place] [employer]: www.cancer.org National Cancer Breeding (NCI): www.cancer.gov Contact a health care provider [...] 10/18/2004 Document Revised: 09/28/2018 Document Reviewed: 09/19/2017 [employer] Patient Education 2020 [employer]. Follow Up Care 05/18/2022 11:09:55 With:Reza JAMES, ISAIAH Mckeon, URO Address: When:1 week Comments:bcg #2 [facility] 05-18-2022 Hospital Discharge instructions Patient Education 05/18/2022 [...] cells. Follow these instructions at home: Take ivgd-ebe-syumocc and prescription medicines only as told by [...] is important. Where to find more information [place] [employer]: www.cancer.org National Cancer Breeding (NCI): www.cancer.gov Contact a health care provider [...] 10/18/2004 Document Revised: 09/28/2018 Document Reviewed: 09/19/2017 [employer] Patient Education [place] Follow Up Care 05/12/2022 12:08:46 With:Reza JAMES, ISAIAH Mckeon, GARUANG Address: When:1 month [facility] 03-17-2022 Hospital Discharge instructions Follow Up Care 03/17/2022 16:12:48 With:Jeff Booth Address: [facility] [address] [place] [phone] Fax Business (1) When: Unknown Comments:f/u 1 year. no labs. [facility] 03-02-2022 Hospital Discharge instructions Patient Education [...] cells. Follow these instructions at home: Take iobk-lhp-htlgxoi and prescription medicines only as told by [...] is important. Where to find more information [place] [employer]: www.cancer.org National Cancer Breeding (NCI): www.cancer.gov Contact a health care provider [...] 10/18/2004 Document Revised: 09/28/2018 Document Reviewed: 09/19/2017 [employer] Patient Education 2020 [employer]. Follow Up Care 12/29/2021 09:06:11 With:AI MITCHELL PA-C, URL Address: [address] [place] [address] When: Unknown Comments:follow up after cysto with [facility] 02-09-2022 Hospital Discharge instructions Patient Education 02/09/2022 [...] cells. Follow these instructions at home: Take pbon-rnj-fpushmv and prescription medicines only as told by [...] is important. Where to find more information [place] [employer]: www.cancer.org National Cancer Breeding (NCI): www.cancer.gov Contact a health care provider [...] 10/18/2004 Document Revised: 09/28/2018 Document Reviewed: 09/19/2017 [employer] Patient Education 2020 [employer]. Follow Up Care 12/29/2021 09:03:01 With:Reza JAMES, ISAIAH Mckeon, URO Address: When: Unknown [facility] 02-02-2022 Hospital Discharge instructions Patient Education 02/02/2022 [...] cells. Follow these instructions at home: Take ocsl-erm-waryrxj and prescription medicines only as told by [...] is important. Where to find more information [place] [employer]: www.cancer.org National Cancer Breeding (NCI): www.cancer.gov Contact a health care provider [...] 10/18/2004 Document Revised: 09/28/2018 Document Reviewed: 09/19/2017 [employer] Patient Education 2020 [employer]. Follow Up Care 12/29/2021 09:02:14 With:Reza JAMES, ISAIAH Mckeon, URO Address: When: Unknown [facility] 01-26-2022 Hospital Discharge instructions Patient Education 01/26/2022 [...] cells. Follow these instructions at home: Take sbtw-iuu-fbkwpxw and prescription medicines only as told by [...] is important. Where to find more information [place] [employer]: www.cancer.org National Cancer Breeding (NCI): www.cancer.gov Contact a health care provider [...] 10/18/2004 Document Revised: 09/28/2018 Document Reviewed: 09/19/2017 [employer] Patient Education 2020 [employer]. Follow Up Care 12/29/2021 08:59:52 With:Dina Cobb MD, ISAIAH, URO Address: [address] [place] [address]- [phone] Business (1) When: Unknown [facility] Evaluation + Plan note Future Appointments Appointment Date:02/02/2022 08:00:00 AM Scheduled Provider:Dina Cobb MD Location:[facility] Appointment Type:URO Office Visit Appointment Date:02/09/2022 08:00:00 AM Scheduled Provider:Dina Cobb MD Location:[facility] Appointment Type:URO Office Visit Appointment Date:02/16/2022 08:00:00 AM Scheduled Provider:Dina Cobb MD Location:[facility] Appointment Type:URO Office Visit Appointment Date:02/23/2022 08:00:00 AM Scheduled Provider:Dina Cobb MD Location:[facility] Appointment Type:URO Office Visit Appointment Date:03/02/2022 09:30:00 AM Scheduled Provider:Dina Cobb MD Location:[facility] Appointment Type:URO Office Visit Appointment Date:03/17/2022 03:00:00 PM Scheduled Provider:Jeff Booth DO Location:FT.ONCOLOGY Appointment Type:ONC Office Visit New 30 (FT) [facility] Evaluation + Plan note Future Appointments Appointment Date:02/02/2022 08:00:00 AM Scheduled Provider:Dina Cobb MD Location:[facility] Appointment Type:URO Office Visit Appointment Date:02/09/2022 08:00:00 AM Scheduled Provider:Dina Cobb MD Location:[facility] Appointment Type:URO Office Visit Appointment Date:02/16/2022 08:00:00 AM Scheduled Provider:Dina Cobb MD Location:[facility] Appointment Type:URO Office Visit Appointment Date:02/23/2022 08:00:00 AM Scheduled Provider:Dina Cobb MD Location:[facility] Appointment Type:URO Office Visit Appointment Date:03/02/2022 09:30:00 AM Scheduled Provider:Dina Cbob MD Location:[facility] Appointment Type:URO Office Visit Appointment Date:03/17/2022 03:00:00 PM Scheduled Provider:Jeff Booth DO Location:FT.ONCOLOGY Appointment Type:ONC Office Visit New 30 (FT) Diagnostic Tests PendingUrine Culture 01/26/22 [facility] Evaluation + Plan note Future Appointments Appointment Date:02/09/2022 08:00:00 AM Scheduled Provider:Dina Cobb MD Location:[facility] Appointment Type:URO Office Visit Appointment Date:02/16/2022 08:00:00 AM Scheduled Provider:Dina Cobb MD Location:[facility] Appointment Type:URO Office Visit Appointment Date:02/23/2022 08:00:00 AM Scheduled Provider:Dina Cobb MD Location:[facility] Appointment Type:URO Office Visit Appointment Date:03/02/2022 09:30:00 AM Scheduled Provider:Dina Cobb MD Location:[facility] Appointment Type:URO Office Visit Appointment Date:03/17/2022 03:00:00 PM Scheduled Provider:Jeff Booth DO Location:[facility].ONCOLOGY Appointment Type:ONC Office Visit New 30 (FT) [facility] Evaluation + Plan note Future Appointments Appointment Date:02/16/2022 08:00:00 AM Scheduled Provider:Dina Cobb MD Location:[facility] Appointment Type:URO Office Visit Appointment Date:02/23/2022 08:00:00 AM Scheduled Provider:Dina Cobb MD Location:[facility] Appointment Type:URO Office Visit Appointment Date:03/02/2022 09:30:00 AM Scheduled Provider:Dina Cobb MD Location:[facility] Appointment Type:URO Office Visit Appointment Date:03/17/2022 03:00:00 PM Scheduled Provider:Jeff Booth DO Location:FT[facility]ONCOLOGY Appointment Type:ONC Office Visit New 30 (FT) [facility] Evaluation + Plan note Future Appointments Appointment Date:03/17/2022 03:00:00 PM Scheduled Provider:Jeff Booht DO Location:FT.ONCOLOGY Appointment Type:ONC Office Visit New 30 (FT) [facility] Evaluation + Plan note Future Appointments Appointment Date:03/15/2023 12:30:00 PM Scheduled Provider:Jeff Booth DO Location:FT.ONCOLOGY Appointment Type:ONC Office Visit 15 (FT) Diagnostic Tests PendingUrine Culture 03/25/22 [facility] Evaluation + Plan note Future Appointments Appointment Date:03/15/2023 12:30:00 PM Scheduled Provider:Jeff Booth DO Location:FT.ONCOLOGY Appointment Type:ONC Office Visit 15 (FT) [facility] Evaluation + Plan note Future Appointments Appointment Date:06/22/2022 10:15:00 AM Scheduled Provider:Dina Cobb MD Location:[facility] Appointment Type:URO Office Visit Appointment Date:06/29/2022 10:15:00 AM Scheduled Provider:Dina Cobb MD Location:[facility] Appointment Type:URO Office Visit Appointment Date:07/06/2022 10:15:00 AM Scheduled Provider:Dina Cobb MD Location:[facility] Appointment Type:URO Office Visit Appointment Date:03/15/2023 12:30:00 PM Scheduled Provider:Jeff Booth DO Location:.ONCOLOGY Appointment Type:ONC Office Visit 15 (FT) [facility] Evaluation + Plan note Future Appointments Appointment Date:06/29/2022 07:45:00 AM Scheduled Provider:Dina Cobb MD Location:[facility] Appointment Type:URO Office Visit Appointment Date:07/06/2022 10:15:00 AM Scheduled Provider:Dina Cobb MD Location:[facility] Appointment Type:URO Office Visit Appointment Date:03/15/2023 12:30:00 PM Scheduled Provider:Jeff Booth DO Location:FT.ONCOLOGY Appointment Type:ONC Office Visit 15 (FT) [facility] Evaluation + Plan note Future Appointments Appointment Date:07/06/2022 10:15:00 AM Scheduled Provider:Dina Cobb MD Location:[facility] Appointment Type:URO Office Visit Appointment Date:03/15/2023 12:30:00 PM Scheduled Provider:Jeff Booth DO Location:FT.ONCOLOGY Appointment Type:ONC Office Visit 15 (FT) Diagnostic Tests PendingBUN 06/29/22Creatinine 06/29/22 [facility] Evaluation + Plan note Future Appointments Appointment Date:10/19/2022 08:00:00 AM Scheduled Provider:Dina Cobb MD Location:[facility] Appointment Type:URO Office Visit Appointment Date:10/26/2022 10:30:00 AM Scheduled Provider:AI MITCHELL PA-C Location:[facility] Appointment Type:URO Office Visit Appointment Date:03/15/2023 12:30:00 PM Scheduled Provider:Jeff Booth DO Location:FT.ONCOLOGY Appointment Type:ONC Office Visit 15 (FT) [facility] Evaluation + Plan note Future Appointments Appointment Date:10/26/2022 10:30:00 AM Scheduled Provider:AI MITCHELL PA-C Location:[facility] Appointment Type:URO Office Visit Appointment Date:03/15/2023 12:30:00 PM Scheduled Provider:Jeff Booth DO Location:FT.ONCOLOGY Appointment Type:ONC Office Visit 15 (FT) [facility] Evaluation + Plan note Future Appointments Appointment Date:03/15/2023 12:30:00 PM Scheduled Provider:Jeff Booth DO Location:FT.ONCOLOGY Appointment Type:ONC Office Visit 15 (FT) Diagnostic Tests PendingUrine Culture 12/14/22 [facility] Evaluation + Plan note Future Appointments Appointment Date:04/24/2024 11:00:00 AM Scheduled Provider:Jeff Booth DO Location:FT.ONCOLOGY Appointment Type:ONC Office Visit 15 (FT) [facility] Evaluation note No assessment inform ation available [facility] Work Phone: Hospital course Narrative No data available for this section [facility] Hospital Discharge instructions No data available for this section [facility] Progress note No data available for this section [facility] Summary Purpose Family History No Family History [...] section and content) DATE CREATED AUTHOR 06/24/2020 [facility] DATE CREATED AUTHOR AUTHOR'S ORGANIZ ATION 09/01/2020 [facility] DATE CREATED AUTHOR AUTHOR'S ORGANIZ ATION 11/21/2020 [facility] DATE CREATED AUTHOR AUTHOR'S ORGANIZ ATION 03/09/2023 [facility] DATE CREATED AUTHOR AUTHOR'S ORGANIZ ATION 06/28/[address] [facility] DATE CREATED AUTHOR AUTHOR'S ORGANIZ ATION 08/05/2023 [facility] DATE CREATED AUTHOR AUTHOR'S ORGANIZ ATION 11/16/2023 [facility] DATE CREATED AUTHOR AUTHOR'S ORGANIZ ATION 12/07/2023 [facility] Care Team (unrecognized sect ion and content) Personnel Name: BAYRON SINGH MD Address: [address] Personnel Name: BAYRON SINGH MD [facility] [address] [facility] [address] Personnel Name: BAYRON SINGH MD Address: [address] [facility] [facility] [facility] [address] Personnel Name: BAYRON SINGH MD Address: [address] Personnel Name: BAYRON SINGH MD Address: Address: [address] [place] [address] Personnel Name: BAYRON SINGH MD Address: Address: [address] [place] [address] Personnel Name: BAYRON SINGH MD Address: Address: [address] [place], [place] [address] [address] Personnel Name: BAYRON SINGH MD Address: Address: [address] [place] [address] Personnel Name: BAYRON SINGH MD Address: Address: [address] [place], [place] [address] [address] Personnel Name: BAYRON SINGH MD Address: Address: [address] [place] [address] Personnel Name: BAYRON SINGH MD Address: Address: [address] [place] [address] Goals (unrecognized section and content) Goals may [...] BE BASED ON THE PRIMARY CLINICAL RECORDS. [employer] [facility]. provides no warranty or guarantee of the accuracy or completeness of information in this document.
[2024-01-02 12:53] LABS: Anion Gap 12.7; Calcium 9.5 mg/dL (8.5-10.1); Carbon Dioxide 26.6 mmol/L (21.0-32.0); Chloride 107 mmol/L (98-107); Estimated GFR (African America >60 (>=60); Estimated GFR (Non-African Ame 56 (>=60); Glucose 135 mg/dL (74-106); Magnesium 2.1 mg/dL (1.8-2.4); Potassium 4.3 mmol/L (3.5-5.1); Sodium 142 mmol/L (136-145)
== END 2024-01-02 11:42 | disposition home or self-care (01) ==
LOC: LAB 11:41
PROVIDERS: PCP Family Medicine; Visit Provider Nurse Practitioner
DX: R06.09 Other forms of dyspnea (principal); R00.2 Palpitations
CPT/HCPCS: 36415; 80048; 83735

== ENCOUNTER 2024-01-03 07:31 | Outpatient (RCR) | payer BC, SELFPAY ==
[2024-01-03] MEDS: WATER FOR INJECTION STERILE INTRAVESIC (10:21)
[2024-01-03] MEDS: GEMCITABINE HCL INTRAVESIC (10:21)
[2024-01-03 10:43] VITALS: BP 106/61; PULSE 57; RESP 16; TEMP 36; O2SAT 96
--- NOTE | 2024-01-03 10:44 | PC.NURSE ---
0947: Pt. to [facility] amb. for intravesicular treatment. Pt. to bathroom to void. Returns to bed, supine position. VSS. 0956: Using sterile technique, #16 Fr. christian cath inserted into bladder on second attempt with immediate return of clear, yellow urine. Pt. tolerates without c/o. Bladder emptied for 100mL urine. 1021: Bladder instilled with Gemcitabine 1000mg . Instructed pt. to turn side to side and front to back every 15min x's 1 hour. Pt. relays understanding. 1052: Tolerating bladder infusion without c/o. Turning as instructed. Denies needs.
[2024-01-03] MEDS: SODIUM CHLORIDE 0.9% INTRAVESIC (11:32)
[2024-01-03] MEDS: DOCETAXEL INTRAVESIC (11:32)
--- NOTE | 2024-01-03 11:34 | PC.NURSE ---
1121: Gemcitabine infusion completed. Gutierrez bag re-connected. 150cc clear yellow urine emptied from bladder. Pt. requests to stand up for several minutes before next bladder instillation. Pt. denies c/o burning or pain. No redness or irritation of perineum observed. 1132: Pt. returns to supine position on bed. Gutierrez bag disconnected and bladder instilled with Docetaxel as ordered, see MAR. Reminded pt to turn as instructed. Relays understanding.
--- NOTE | 2024-01-03 12:25 | PC.NURSE ---
1155: Patient without c/o. Denies needs.
--- NOTE | 2024-01-03 12:37 | PC.NURSE ---
1235: Treatment completed at this time. Bladder emptied for 100ML clear yellow urine. Gutierrez d/c'd, pamela care per pt. Tolerated with no c/o. Relays occasional bladder spasm. Given privacy to dress. 1243: VSS. Pt. d/c'd amb to home.
== END 2024-01-03 12:43 | disposition home or self-care (01) ==
LOC: INF 07:31
PROVIDERS: PCP Family Medicine
DX: C67.4 Malignant neoplasm of posterior wall of bladder (principal)
CPT/HCPCS: 51700; J9171; J9201

== ENCOUNTER 2024-01-11 09:47 | Outpatient (OUT) | payer BC, SELFPAY ==
--- NOTE | 2024-01-11 10:00 | CA_ITS ---
Patient Name: DANIELLA BEJARANO MR#: [id number] : 1960 Exam Date: 01/11/2024 Ordering Doctor: OZZY DANIELS ECHOCARDIOGRAM REPORT PROCEDURE: CA ECHO DOPPLER COMPLETE INDICATIONS: Dyspnea, Primary hypertension, h/o bladder cancer, h/o breast cancer, right mastectomy COMPARISON: None. DESCRIPTION: COMPLETE ECHOCARDIOGRAM Real-time transthoracic echocardiography with 2D, M-mode, spectral and color flow Doppler performed. QUALITY: Technical quality was good. 64 , 260#, BSA 2.19 m2 LEFT VENTRICLE: Normal chamber size. Thickened septal wall. LV EF: Global left ventricular systolic function is hyperdynamic; visually estimated ejection fraction is 65-70%. Unable to assess regional wall motion abnormalities. DIASTOLIC: Normal diastolic function. ATRIAL SEPTUM: Inadequately seen. LEFT ATRIUM: Normal chamber size. RIGHT ATRIUM: Normal chamber size. RIGHT VENTRICLE: Poorly seen; appears enlarged. Right ventricular systolic function appears preserved. TRICUSPID VALVE: Normal mobility and thickness. No stenosis with trivial regurgitation. Unable to assess right-sided pressures due to lack of measurable tricuspid regurgitation. MITRAL VALVE: Normal mobility and thickness. No evidence of mitral valve stenosis. Trivial mitral regurgitation. AORTIC VALVE: Normal trileaflet appearance. No visible sclerosis. Normal leaflet mobility. No evidence of aortic valve stenosis. No aortic regurgitation. AORTIC ROOT: Normal diameter and appearance. PULMONIC VALVE: Normal thickness and mobility. No stenosis. Trivial regurgitation. PERICARDIUM: Anterior free space; trivial effusion versus fat pad. IVC: Collapses with inspirations. CONCLUSION: 1. Global left ventricular systolic function is hyperdynamic; visually estimated ejection fraction 65 to 70% 2. The right ventricle is poorly seen; it appears enlarged with preserved systolic function 3. Normal diastolic function 4. Valves are poorly seen; no significant valvular abnormalities 5. Anterior free space; trivial effusion versus fat pad Adult Echocardiography Procedure Report Left Ventricle LVEDD (3.7 - 5.6 cm): 4.39 cm LVESD (2.2 - 4.0 cm): 2.81 cm LVIVS thickness (0.6 - 1.2 cm): 1.33 cm LVPW thickness (0.5 - 1.0 cm): 1.03 cm e': 0.09 m/s E - e': 10.85 LVOT Max Gradient: 4.88 mm[Hg] LVOT Area (cm2): 1.10 m/s Peak Velocity (LVOT): 1.10 m/s Mean Velocity (LVOT): 0.67 m/s LVOT Diameter 2.38 cm Left Atrium LA Volume Index (2D A2C): 22.74 ml/m2 Left Atrium Systolic Dimension: 3.82 cm Mitral Valve MV E to A Ratio: 1.08 Mitral Valve A-Wave Peak Velocity: 0.92 m/s Mitral Valve E-Wave Peak Velocity: 1.00 m/s Right Ventricle Aorta AO Root Diam: 3.60 cm Aortic Valve AoV Area (Peak Augustin): 3.07 cm2, 3.07 cm2 AoV Area (VTI): 3.67 cm2, 3.67 cm2 Peak Velocity(Antegrade Flow): 1.60 m/s Peak Gradient(Antegrade Flow): 10.18 mm[Hg] Mean Velocity(Antegrade Flow): 1.02 m/s Mean Gradient(Antegrade Flow): 4.88 mm[Hg] Velocity Time Integral: 29.41 cm Tricuspid Valve Pulmonic Valve Mean Gradient: 3.27 mm[Hg] Mean Velocity: 0.85 m/s Peak Velocity: 1.17 m/s, 1.15 m/s Peak Gradient: 5.49 mm[Hg], 5.27 mm[Hg] Right Atrium Right Atrium Systolic Pressure: 38.45 ml, 38.45 ml Dictated by: Kaylynn Feldman M.D. on 01/11/2024 at 13:44 Approved by: Kaylynn Feldman M.D. on 01/11/2024 at 13:48
== END 2024-01-11 09:48 | disposition home or self-care (01) ==
PROVIDERS: PCP Family Medicine; Visit Provider Nurse Practitioner
DX: R06.09 Other forms of dyspnea (principal); I10 Essential (primary) hypertension
CPT/HCPCS: 93306

== ENCOUNTER 2024-02-07 07:35 | Outpatient (RCR) | payer BC, SELFPAY ==
[2024-02-07] MEDS: WATER FOR INJECTION STERILE INTRAVESIC (08:57)
[2024-02-07] MEDS: GEMCITABINE HCL INTRAVESIC (08:57)
[2024-02-07 09:21] VITALS: BP 134/77; PULSE 69; TEMP 36.2; O2SAT 95
--- NOTE | 2024-02-07 09:22 | PC.NURSE ---
0850: Pt. to [facility] amb. for monthly bladder infusion. Pt. seated on bed. VSS. Denies c/o s&s of UTI. Pt. to supine position on bed. Using sterile technique, #16 Fr. christian cath inserted into bladder with immediate return of clear, yellow urine. Pt tolerated with minimal c/o discomfort. Bladder emptied for 100cc urine. Christian bag disconnected. Chemo adapter applied. 0857: Gemcitabine instilled into bladder via christian cath. Pt. instructed to turn side to side and front to back every 15min x 1 hour. Pt. relays understanding.
[2024-02-07] MEDS: DOCETAXEL INTRAVESIC (10:13)
[2024-02-07] MEDS: SODIUM CHLORIDE 0.9% INTRAVESIC (10:13)
--- NOTE | 2024-02-07 10:23 | PC.NURSE ---
0957: Gemcitabine treatment completed. Gutierrez drainage bag re-connected. Bladder emptied for 125cc clear, yellow urine. Pt. requests to stand for a minute or two. 1013: Pt returns to supine position on bed. Bladder instilled with Docetaxel as ordered. Reminded pt. to turn side to side and front to back every 15min. x 1hour. Pt. verbalizes understanding.
--- NOTE | 2024-02-07 11:02 | PC.NURSE ---
1045:Tolerating bladder instillation without c/o.
[2024-02-07 11:13] VITALS: BP 155/66; PULSE 68; TEMP 36.1; O2SAT 98
--- NOTE | 2024-02-07 11:33 | PC.NURSE ---
1113: Docetaxel treatment completed at this time. Bladder emptied for 200cc clear yellow urine. Gutierrez cath. removed. No redness or irritation observed to pamela area. Pt. denies c/o. Pamela care provided. VSS. Given privacy to dress. 1120: Pt. d/c'd amb. to home.
== END 2024-02-27 23:59 | disposition home or self-care (01) ==
LOC: INF 07:35
PROVIDERS: PCP Family Medicine
DX: C67.4 Malignant neoplasm of posterior wall of bladder (principal)
CPT/HCPCS: 51700; J9171; J9201

== ENCOUNTER 2024-02-13 09:14 | Day surgery (SDC) | payer BC, SELFPAY ==
--- OUTSIDE RECORDS SUMMARY | 2024-02-13 09:34 | XMS_ITS | CCD ---
Author Organization [facility] Care Team Providers Care Senior Android Software Engineer Name Role Phone UNKNOWN, PROVIDER Admitting Unavailable UNKNOWN, PROVIDER Attending Unavailable SELF, REFERRED Referring Unavailable BAYRON SINGH Primary Care Unavailable SHANTAEREBAYRON Narvaez Primary Care Physician LUE ., DINA M Attending Unavailable LUE ., DINA M Admitting Unavailable LUE ., DINA M Consulting Unavailable NADERER, DR BAYRON Perez Primary Care Unavailable LUE ., DINA M Attending Unavailable LUE ., DINA M Admitting Unavailable HERMOSA BEACH, DR SPARKLE Napoles Consulting Unavailable NADERER, DR BAYRON Perez Primary Care Unavailable LUE ., DINA Sneed Consulting Unavailable NADERER, DR BAYRON Perez Primary Care Unavailable FAWWAD, COLLAZO H Admitting Unavailable FAWWAD, COLLAZO H Attending Unavailable FAWWAD, COLLAZO H Consulting Unavailable NEFCYFRANNY Consulting Unavailable LUE ., DINA M Attending Unavailable LUE ., DINA M Admitting Unavailable NADERER, DR BAYRON Perez Primary Care Unavailable BOBALEJO Consulting Unavailable LUE ., DINA M Consulting [...] NADERER, DR BAYRON Perez Primary Care Unavailable POLICARO, JULISSA Consulting Unavailable KATKO, KAYKAY Navarro Admitting Unavailable KATKO, KAYKAY Navarro Attending Unavailable MAC ., LAVERNE Consulting Unavailable NADERER, DR BAYRON Perez Primary Care Unavailable NADERER, DR BAYRON Perez Attending Unavailable NADERER, DR BAYRON Perez Admitting Unavailable HOY ., DR HINOJOSA Consulting Unavailable NADERER, DR BAYRON Perez Consulting Unavailable GRECHNY ., PAULINA BORJA Consulting Unavailabl e STRAWSER, ABDIAZIZ Consulting Unavailable LUE ., DINA M Consulting [...] Unavailable Lue, Dina M. Attending Unavailable RUY, IA E Attending Unavailable Lue, Dina M. Attending Unavailable Lue, Dina M. Attending Unavailable Lue, Dina M. Attending Unavailable Lue, Dina M. Attending Unavailable Lue, Dina Oconnell Attending Unavailable AdamowiczJeff Attending Unavailable AdamowiczVinhJeff Admitting Unavailable HayBlanca Admitting Unavailable AmariBlanca brown Attending Unavailable Lue, Dina Oconnell Attending Unavailable LueDina Admitting Unavailable Lue, Dina Oconnell Attending Unavailable Lue, Dina Oconnell Attending Unavailable Self, Referral Referring Unavailable Adamowicz II, Jeff J Attending Unavaila ble Adamowicz II, Jeff J Admitting Unavaila ble Naderer, Bayron Primary Care Unavailable NADERER, BAYRON Attending Unavailable TASHA, MYRNA Attending Unavailable NADERER, BAYRON Referring Unavailable DIETER, FIRAS Referring Unavailable DIETER, FIRAS Attending Unavailable DIETER, FIRAS Referring Unavailable DIETER, FIRAS Attending Unavailable DIETER, FIRAS Attending Unavailable DIETER, FIRAS Admitting Unavailable DIETER, FIRAS Referring Unavailable JEREMIAH, OZZY Attending Unavailable DIETER, FIRAS Attending Unavailable JEREMIAH, OZZY Attending Unavailable DIETER, FIRAS Attending Unavailable DIETER, [...] Drug Allergy Headache (finding) [facility] (1 source) Acetaminophen / oxyCODONE Drug Allergy 9 [facility] Repository (1 source) Acetaminophen / oxyCODONE; 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: [OXYCODONE-ACETAM INOPHEN] Drug Allergy 3 [facility] Repository Medications Current Medications Medication Drug Class(es) [...] 4 wks, then 2x a week afterwards., [facility]/pharmacy #[id number], 163, cm, 06/22/22 8:33:00 EDT, Height/Length Dosing, 115, kg, 06/22/22 8:33:00 EDT, Weigh... Start Date: 06/22/22 Status: Ordered fluconazole 150 mg oral tablet (2 sources) Azole Antifungal Start: 12-14-2022 take 1 tablet by mouth once Diflucan 150 mg Tab 150 mg = 1 tab(s), Oral, Once, # 1 tab(s), Refills(s) 0, Pharmacy: [facility]/pharmacy #[id number], 163, cm, 10/26/22 10:27:00 EST, Height/Length [...] tablet (5 sources) beta3-Adrenergi c Agonist Start: 03-08-2023 take 1 tablet by mouth once daily Myrbetriq 50 mg oral tablet, extended release 50 mg = 1 tab(s), Oral, Daily, # 30 tab(s), Refills(s) 11, Pharmacy: [facility]/pharmacy #[id number], 163, cm, 01/04/23 8:04:00 EST, Height/Length Dosing, 115, kg, 01/04/23 8:04:00 EST, Weight Dosing Start Date: 01/04/23 Status: Ordered Start: 10-14-2022 take 1 tablet by justo th once daily Myrbetriq 50 mg oral tablet, extended release 50 mg = 1 tab(s), Oral, Daily, # 30 tab(s), Refills(s) 11, Pharmacy: [facility]/pharmacy #[id number], 163, cm, 10/12/22 8:12:00 EST, Height/Length [...] oral tablet (19 sources) Angiotensin 2 Receptor Neal Start: 07-07-2021 take 1 mg by mouth [...] Daily, # 90 tab(s), Refills(s) 3, Pharmacy: [facility]/pharmacy #[id number], 163, cm, 05/18/22 10:12:00 EDT, Height/Length Dosing, 115, kg, 05/18/22 10:12:00 EDT, Weight Dosing Start Date: 05/18/22 Status: Ordered Start: 10-13-2021 take 1 tablet by justo th once daily Vesicare 10 mg Tab 10 mg = 1 tab(s), Oral, Daily, # 30 tab(s), Refills(s) 5, Pharmacy: [facility]/pharmacy #[id number], 163, cm, 10/13/21 9:52:00 EST, Height/Length [...] 1 tablet day of treatment after treatment, [facility]/pharmacy #[id number], 163, cm, 05/18/22 10:12:00 EDT, Height/Length Dosing, 115, kg, 05/18/22 10:12:00 EDT, Weight Dosing Start Date: 05/18/22 Status: Ordered Start: 02-02-2022 Bactrim DS 800 mg-160 mg Tab 1 tab(s), Oral, Daily, 10 tab(s), Refill(s) 0, Prophylaxis for BCG, take day before and day of, [facility]/pharmacy #[id number], 163, cm, 02/02/22 8:04:00 EDT, Height/Length Dosing, 115, kg, 02/02/22 8:04:00 EDT, Weight Dosing Start Date: 02/02/22 Status: Ordered Start: 01-26-2022 Bactrim DS 800 mg-160 mg Tab 1 tab(s), Oral, q12hr, 2 tab(s), Refill(s) 6, [facility]/pharmacy #[id number], 163, cm, 01/26/22 8:21:00 EDT, Height/Length Dosing, 115, kg, 01/26/22 8:21:00 EDT, Weight Dosing Start Date: 01/26/22 Status: Ordered vibegron 75 MG Oral Tablet [Gemtesa] (1 source) Start: 01-05-2023 take 1 tablet by mouth once daily Gemtesa 75 mg oral tablet 75 mg = 1 tab(s), Oral, Daily, # 30 tab(s), Refills(s) 3, Pharmacy: [facility]/pharmacy #[id number], 163, cm, 01/04/23 8:04:00 EST, Height/Length [...] procedure., # 1 tab(s), Refills(s) 0, Pharmacy: [facility]/pharmacy #[id number], 163, cm, 06/22/22 8:33:00 EDT, Height/Length [...] overlapping sites of bladder] Onset: 01-26-2022 Chronic Cardiac dysrhythmias (4 sources) Palpitations; 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: [Tachycardia, unspecified] Onset: 02-09-2024 Episodic Essential hypertension (3 sources) Essential (primary) hypertension; 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: [ESSENTIAL PRIMARY HYPERTENSION] [...] 11-07-2022 Chronic Other aftercare (1 source) Other remote computer terminal operator (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; 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: [OTH LONGTERM CURRENT DRUG THERAPY] Onset: 12-25-2022 Episodic Other aftercare (1 source) long-term (current) use of aspirin; 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: [LONGTERM CURRENT USE OF ASPIRIN] Onset: 12-13-2022 Episodic Other and ill-defined heart disease (2 sources) Coronary artery aneurysm; 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: [Coronary artery aneurysm] Onset: 01-02-2024 Chronic Other diseases of bladder and urethra (12 [...] disorders of bladder] Onset: 03-13-2023 Chronic Other lower respiratory disease (2 sources) Other forms of dyspnea; 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: [Other forms of dyspnea] Onset: 05-05-2023 Episodic Other nutritional; endocrine; and metabolic disorders (18 [...] Unclassified (2 sources) Procedure; 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: [Procedure] Onset: 04-28-2023 Urinary tract infections (20 sources) Urinary tract [...] Test Name Value Interpretation Reference Range Facility Office Visiton 02-09-2024 Follow-up visit [id number] Wali Bejarano 1960 F Date Provider Department Center 02/09/2024 [facility]ZZY [facility]ULLIAM [facility] Family History Problem Relation Age of Onset Hypertension Mother Atrial fibrillation Mother Other Sister Coronary artery disease Brother Hypertension Brother Family Status - Relation Status Age at Mother Sister Brother Level of Service:95535 LA OFFICE/OUTPATIENT ESTABLISHED MOD MDM 30 MIN Normal [facility] 36on 01-17-2024 36 Patient will call me back if she decides she'd like to proceed with PFT's. Normal [facility] 36on 01-16-2024 36 Patient called back to make you aware that her edema is better. She says it's better because she isn't on the cruise anymore and eating so much salt . She said her SOB remains the same, as she's still huffin and puffin . She states I think I'm just fat . Any recommendations? (Besides weight loss and diet lol) [facility] 36 Regarding echo performed on 01/11/2024: ISIDRA Blair MA Her echo looks OK except they couldn't see her RV well- ask her if shortness of breath and edema have improved since taking lasix. LM for patient to return my call. Also let her know her Holter monitor did not show anything concerning (per Jeannette). [facility] NON-NETWORKS COMPUTER CONSULTANT CYTOLOGY - CELLULAR EXAMon 01-10-2024 LAB AP CASE REPORT Normal [facility] Comment on above: Order Comment: Via c ysto Result Comment: Non- gynecologic Cytology Case: [id number] Authorizing Provider: Lisa Zelaya MD Collected: 01/10/20241421 Ordering Location: [facility] Received: 01/10/2024 [facility] Urology Pathologist: Yossi Sterling MD Specimen: Bladder washing Performed By: #### L AB13 #### [facility] (BEAKER) [address] [place] [address] LAB AP CLINICAL INFORMATION Order Diagnoses [facility] Comment on above: Order Comment: Via c ysto Result Comment: C67. 4 - Malignant neoplasm of posterior wall of urinary bladder (CMS/HCC) [ICD-10-CM] Performed By: #### L AB13 #### [facility] ([facility]AK[facility]) [address] [place] [address] LAB AP GROSS DESCRIPTION [facility] Comment on above: Order Comment: Via c ysto Result Comment: 15 m L clear, colorless fluid. Performed By: #### L AB13 #### [facility] (BEAKER) [address] [place] [address] LAB AP REPORT FINAL DIAGNOSIS NARRATIVE [facility] Comment on above: Order Comment: Via c ysto Result Comment: A. B ladder washing: - Negative for high grade urothelial carcinoma. Performed By: #### L AB13 #### [facility] ([facility]) [address] [place] [address] Procedure Visiton 01-10-2024 Procedure Visit [id number] AniyahsolWali [place] ruby Chris 1960 Date Provider Department Center 01/10/2024 LISA JOY [facility] Family History Problem Relation Age of Onset Hypertension Mother Atrial fibrillation Mother Other Sister Coronary artery disease Brother Hypertension Brother Family Status - Relation Status Age at Mother Sister Brother Level of Service:52922 LA OFFICE/OUTPATIENT ESTABLISHED LOW MDM 20 MIN Reason for Visit and Comments: Follow-up [423093] Normal [facility] 37on 01-02-2024 37 Increase lasix to 40 mg daily for 2-3 days to remove fluid, then return to 20 mg daily Have blood drawn for mag, electrolytes and renal function TB will call you for echocardiogram Normal [facility] Office Visiton 01-02-2024 Follow-up visit [id number] AamirWali Perez 1960 Date Provider Department Center 01/02/2024 OZZY PULLIAM CARD [facility] Family History Problem Relation Age of Onset Hypertension Mother Atrial fibrillation Mother Other Sister Coronary artery disease Brother Hypertension Brother Family Status - Relation Status Age at Mother Sister Brother Level of Service:06014 LA OFFICE/OUTPATIENT ESTABLISHED MOD MDM 30 MIN [facility] NON-NETWORKS COMPUTER CONSULTANT CYTOLOGY - CELLULAR EXAMon 10-04-2023 LAB AP CASE REPORT Normal [facility] Comment on above: Order Comment: Via c ysto Result Comment: Non- gynecologic Cytology Case: [id number] Authorizing Provider: Lisa Zelaya MD Collected: 10/04/2023 1451 Ordering Location: [facility] Received: 10/04/2023 1451 Urology Pathologist: Yossi Sterling MD Specimen: Bladder washing Performed By: #### L AB13 #### [facility] ([facility]) [address] [place] [address] LAB AP CLINICAL INFORMATION Order Diagnoses Normal [facility] Comment on above: Order Comment: Via c ysto Result Comment: C67. 4 - Malignant neoplasm of posterior wall of urinary bladder (CMS/HCC) [ICD-10-CM] Performed By: #### L AB13 #### [facility] ([facility]) [address] [place] [address] LAB AP GROSS DESCRIPTION [facility] Comment on above: Order Comment: Via c ysto Result Comment: 14 m L clear, colorless fluid. Performed By: #### L AB13 #### [facility] (BEAKER) [address] [place] [address] LAB AP REPORT FINAL DIAGNOSIS NARRATIVE Normal [facility] Comment on above: Order Comment: Via c ysto Result Comment: Blad david washing, cytology: Negative for high-grade urothelial carcinoma. Performed By: #### L AB13 #### [facility] (BEAKER) [address] [place] [address] Procedure Visiton 10-04-2023 Procedure Visit [id number] Wali Bejarano 1960 [facility] Provider Department Center 10/04/2023 LISA JO[facility] Family History Problem Relation Age of Onset Hypertension Mother Family Status - Relation Status Age at Mother Level of Service:34443 LA OFFICE/OUTPATIENT ESTABLISHED LOW MDM 20 MIN Reason for Visit and Comments: Follow-up [016299] [facility] Letter (Out)on 08-15-2023 Letter (Out) [id number] Wali Bejarano A 1960 [facility] Provider Department Center 08/15/2023 None-None [facility] C Family History Problem Relation Age of Onset Hypertension Mother Family Status - Relation Status Age at Mother [facility] Letter (Out)on 08-11-2023 Letter (Out) [id number] Wali Bejarano A 1960 [facility] Provider Department Center 08/11/2023 None-None [facility] C Family History Problem Relation Age of Onset Hypertension Mother Family Status - Relation Status Age at Mother [facility] Letter (Out)on 07-07-2023 Letter (Out) [id number] Wali Bejarano A 1960 F Date Provider Department Center 07/07/2023 None-None [facility] Family History Problem Relation Age of Onset Hypertension Mother Family Status - Relation Status Age at Mother Normal [facility] Orders Onlyon 06-29-2023 Orders Only [id number] Wali Bejarano A 1960 Date Provider Department Center 06/29/2023 190-[facility] Family History Problem Relation Age of Onset Hypertension Mother Family Status - Relation Status Age at Mother Normal [facility] NON-NETWORKS COMPUTER CONSULTANT CYTOLOGY - CELLULAR EXAMon 06-28-2023 LAB AP CASE REPORT Normal [facility] Comment on above: Order Comment: Via c ysto Result Comment: Non- gynecologic Cytology Case: [id number] Authorizing Provider: Lisa Zelaya MD Collected: 06/28/2023 1455 Ordering Location: [facility] Received: 06/28/2023 [facility] Urology Pathologist: Yossi Sterling MD Specimen: Bladder washing Performed By: #### L AB13 ####[facility] (BEAKER)[address] [facility] [place] [address] LAB AP CLINICAL INFORMATION Order Diagnoses [facility] Comment on above: Order Comment: Via c ysto Result Comment: C67. 4 - Malignant neoplasm of posterior wall of urinary bladder (CMS/HCC) [ICD-10-CM] Performed By: #### L AB13 ####[facility] (BEAKER)[address] [place] [address] LAB AP GROSS DESCRIPTION [facility] Comment on above: Order Comment: Via c ysto Result Comment: 13 m L yellow, cloudy fluid Performed By: #### L AB13 ####[facility] (BEAKER)[address] [place] [address] LAB AP REPORT FINAL DIAGNOSIS NARRATIVE [facility] Comment on above: Order Comment: Via c ysto Result Comment: A. B ladder washing: - Negative for high grade urothelial carcinoma. Performed By: #### L AB13 ####[facility] ([place])[address] [place] [address] Procedure Visiton 06-28-2023 Procedure Visit [id number] AngeWali mayfield ruby A 1960 Date Provider Department Center 06/28/2023 MalachiDIETER LISA [facility] Family History Problem Relation Age of Onset Hypertension Mother Family Status - Relation Status Age at Mother Level of Service:21976 LA OFFICE/OUTPATIENT ESTABLISHED LOW MDM 20-29 MIN Reason for Visit and Comments: Follow-up [962224] Normal [facility] Operative Reporton 3 Operative Report [id number] D:127 Normal [facility] Clinical Supporton 3 Clinical Support [id number] AngeWali [place] ruby A 1960 Date Provider Department Center 06/02/2023 3079-[facility] ONC NURSE DCC ONC DCC Family History Problem Relation Age of Onset Hypertension Mother Family Status - Relation Status Age at Mother Normal [facility] Clinical Supporton 3 Clinical Support [id number] AniyahdejanserenityWali [place] ruby A 1960 Provider Department Center 05/26/2023 3079-DCC ONC NURSE DCC ONC DCC Family History Problem Relation Age of Onset Hypertension Mother Family Status - Relation Status Age at Mother Reason for Visit and Comments: Procedure [88] - Gutierrez placement #5/6 [facility] Infusionon 05-05-2023 Infusion [id number] AngeWali [place] ruby A 1960 Date Provider Department Center 05/05/2023 2272-[facility] CHAIR 1 DCC INF DCC Family History Problem Relation Age of Onset Hypertension Mother Family Status - Relation Status Age at Mother Reason for Visit and Comments: Intravesicular Chemo [Other] Normal [facility] Infusionon 04-28-2023 Infusion [id number] TitirmarioWali ruby A 1960 F Date Provider Department Center 04/28/2023 2273-[facility] CHAIR 2 DCC INF DCC No family history on file [facility] Outside Oncologyon 3 Outside Oncology [id number] CD:127 Normal [facility] Consent for Treatmenton 03-31 Consent for Treatment [id number] D:127 Normal [facility] Oncology Noteon 04-26-2023 Oncology Note Oncology Shank Threader Office Visit/Treatment Note Current Patient Status/Reason: Pt in for scheduled clinic visit. I accompanied Dr. Booth in room. Pt is following with urologist for bladder cancer with [facility]ist and is getting treatment at [facility], with a physician there. Treatment Plan: none at this time, pt getting mammogram on left by PCP. Follow-Up Appointment Info/Referrals: F/U in 1 year. Resources Offered: Pt voiced no questions or concerns to me when I asked. Instructed pt to call with questions, concerns. [facility] Comment on above: Result Comment: [...] 1 with ductal and lobular features, ER>95%, LA >95%, Her2 neg. Dr. Ward performed R [...] She referred to Dr. Lisa Zelaya at [facility] who repeated the biopsy and was [...] Problems Abnormal urinary stream / SNOMED CT 750684967 / Confirmed Vaginal atrophy / SNOMED CT 127701217 / Confirmed BMI 40.0-44.9, adult / SNOMED CT 4789463326 / Confirmed Former smoker / SNOMED CT 20249765 / Confirmed History of UTI / SNOMED CT 8995168493 / Confirmed Mixed incontinence / SNOMED CT 49267274 / Confirmed Enterococcus faecalis infection / SNOMED CT 4438152553 / Confirmed Urothelial carcinoma of bladder / SNOMED CT 746165737 / Confirmed Bladder cancer / SNOMED CT 327746963 / Confirmed OAB (overactive bladder) / SNOMED CT 3286902058 / Confirmed Urinary tract infection / SNOMED CT 473581683 / Confirmed Canceled: Bladder cancer / SNOMED CT 9576169988 Canceled: Microhematuria / SNOMED CT 234687803 Histories Past Medical History: No active or resolved past medical history items have been selected or recorded. Family History: Hypertension Father Mother Brother Anemia Father Arthritis Father Mother Prostate cancer Brother Procedure history: Cystoscopy and biopsy of bladder ([id number]) on 03/13/2023 at 62 Years. Comments: 03/16/2023 12:36 Roxana Fernando BLUE LIGHT CYSTOSCOPY Cystoscopy and transurethral resection of bladder tumor ([id number]) on 12/28/2022 at 62 Years. Comments: 01/04/2023 13:04 Roxana Garrison random bladder biopsies, BL ureteral washing Cystoscopy (51229765) on 12/07/2022 at 62 Years. Cystoscopy and transurethral resection of bladder tumor (0527474804) on 12/22/2021 at 61 Years. TURBT - Transurethral resection of bladder tumor (8900454705) on 07/26/2021 at 61 Years. Cystoscope (37797037) on 07/14/2021 at 61 Years. Breast surgery (5288506435). History of hysterectomy. (9000123248). Cholecystectomy (82983140). Ts - Tonsillectomy (855180014). Bilateral prosthetic arthroplasty of knees (5364502018). Social History Social & Psychosocial Habits Alcohol 07/07/2021 Risk Assessm (more content not included)... Normal [facility] Orders Onlyon 04-07-2023 Orders Only [id number] Wali Bejarano 1960 F Date Provider Department Center 04/07/2023 Hemal4-LETI SCHAEFER INF DCC No family history on file Normal [facility] Telemedicineon 04-04-2023 Telemedicine [id number] Wali Bejarano 1960 Date Provider Department Center 04/04/2023 LISA JOY ONC DCC No family history on file Level of Service:77364 LA PHYS/QHP TELEPHONE EVALUATION 21-30 MIN Reason for Visit and Comments: Follow-up [209912] - Pathology results Normal [facility] Follow-Upon 03-28-2023 Follow-Up [id number] Wali Bejarano 1960 Provider Department Center 03/28/2023 LISA JOY ONC [facility] No family history on file Level of Service:38305 LA OFFICE/OUTPATIENT ESTABLISHED HIGH MDM 40-54 MIN Reason for Visit and Comments: Follow-up [021866] - Cysto results Normal [facility] PATH CONSULTon 03-28-2023 LAB AP CASE REPORT Normal [facility] Comment on above: Result Comment: PATH OLOGY CONSULT Case: [id number] Authorizing Provider: Lisa Zelaya MD Collected: 03/28/2023 1439 Ordering Location: [facility] Lab Received: 03/28/2023 1441 Pathologist: Adelita Peralta MD Specimens: A) - Urine, Cytology B) - Ureteral washing, Right, Thin Prep C) - Ureteral washing, Left, Thin Prep Performed By: #### P ATH CONSULT #### [facility] (BEAKER) [address] [place] [address] LAB AP CLINICAL INFORMATION Bladder cancer Normal [facility] Comment on above: Performed By: #### P ATH CONSULT #### [facility] (BEAKER) [address] [place] [address] LAB AP DIAGNOSIS COMMENT Normal [facility] Comment on above: Result Comment: A. T he specimen is extremely hypocellular and is limited by scant material. B. The specimen is essentially acellular. C. The specimen is extremely hypocellular and is limited by scant material. Performed By: #### P ATH CONSULT #### [facility] (BEAKER) [address] [place] [address] LAB AP GROSS DESCRIPTION A. Urine. [facility] Comment on above: Result Comment: Rece ived from [facility], [address] [place] [address], is one (1) previously stained glass slide accessioned [id number], collected on 12-07-22. The slide is accompanied by a copy of the contributing pathologists??? report. B. Ureteral washing. Received from [facility], [address] [place] [address], is one (1) previously stained glass slide accessioned [id number], collected on 12-28-22. The slide is accompanied by a copy of the contributing pathologists??? report. C. Ureteral washing. Received from [facility], [address] [place] [address], is one (1) previously stained glass slide accessioned [id number], collected on 12-28-22. The slide is accompanied by a copy of the contributing pathologists??? report. Performed By: #### P ATH CONSULT #### [facility] ([facility]) [address] [place] [address] LAB AP REPORT FINAL DIAGNOSIS NARRATIVE [facility] Comment on above: Result Comment: A. U rine, cytology ([id number], 1 slide, collected on 12-07-22): - Rare atypical urothelial cells present (see comment) B. Right ureteral washing, cytology (OSS#[id number], 1 slide, collected on 12-28-22): - Non-diagnostic (see comment) C. Left ureteral washing, cytology ([id number], 1 slide, collected on 12-28-22) - Non-diagnostic (see comment) Performed By: #### P ATH CONSULT #### [facility] ([facility]) [address] [place] [address] LAB AP CASE REPORT Normal [facility] Comment on above: Result Comment: PATH OLOGY CONSULT Case: [id number] Authorizing Provider: Lisa Zelaya MD Collected: 03/28/2023 1418 Ordering Location: [facility] Lab Received: 03/28/2023 1420 Pathologist: Kari Marte MD Specimens: A) - Soft Tissue, Left lateral bladder wall biopsy B) - Soft Tissue, Bladder dome biopsy C) - Soft Tissue, Right lateral bladder wall biopsy D) - Soft Tissue, Right posterior bladder wall biopsy Performed By: #### L [id number] #### [facility] (BEAKER) [address] [facility] [place] [address] LAB AP CLINICAL INFORMATION Bladder Cancer [facility] Comment on above: Performed By: #### L [id number] #### [facility] (BEAKER) [address] [facility] [place] [place] [address] LAB AP GROSS DESCRIPTION A. Soft Tissue. [facility] Comment on above: Result Comment: Rece ived from [facility], [address] [place] [address], are five (5) previously stained glass slides accessioned [id number], collected on 12-28-22. The slides are accompanied by a copy of the contributing pathologists??? report. B. Soft Tissue. Received from [place] [address], are two (2) previously stained glass slides accessioned [id number], collected on 12-28-22. The slides are accompanied by a copy of the contributing pathologists??? report. C. Soft Tissue. Received from [facility], [address] [place] [address], are two (2) previously stained glass slides accessioned [id number], collected on 12-28-22. The slides are accompanied by a copy of the contributing pathologists??? report. D. Soft Tissue. Received from [facility], [address] [place] [address], are five (5) previously stained glass slides accessioned [id number], collected on 12-28-22. The slides are accompanied by a copy of the contributing pathologists??? report. Performed By: #### L [id number] #### [facility] ([facility]) [address] [place] [address] LAB AP REPORT FINAL DIAGNOSIS NARRATIVE [facility] Comment on above: Result Comment: A. L eft lateral bladder wall biopsy (OSS#[id number], 5 slides, collected on 12-28-22): - Denuded urothelium; negative for carcinoma. - Muscularis propria present; negative for carcinoma. B. Bladder dome biopsy (OSS#[id number], 2 slides, collected on 12-28-22): - Benign urothelial mucosa; negative for carcinoma. - No muscularis propria present. C. Right lateral bladder wall, biopsy (OSS#[id number], 2 slides, collected on 12-28-22): - Benign urothelial mucosa; negative for carcinoma. - Muscularis propria present; negative for carcinoma. D. Right posterior bladder wall, biopsy (OSS#[id number], 5 slides, collected on 12-28-22): - Urothelial mucosa with very minute focus of carcinoma in situ. - Muscularis propria present; negative for carcinoma. Performed By: #### L [id number] #### [facility] ([place]) [address] [place] [address] [facility] (Inserted Image. Lindsay ble to display) March 21, 2023 DANIELLA BEJARANO [address] [place] [address] : 1960 To whom it may concern, This patient is currently under the care of Dr. Dina Cobb MD at [facility]. We are requesting any and all information regarding her recent surgery she had performed at [facility]. Surgery reports, and any pathology/imaging reports are highly requested to be sent to our office for our records. Please fax any relevant information to our office at [phone]. If you have any questions please feel free to call our office at [phone]. Thank you [facility] [address] [place] [address] [place] [address] [facility] Pathology Noteon 03-18-2023 Pathology Note [id number]#1.00C D:127 [facility] Reminderson 03-18-2023 Reminders - From: Roxana Lindsey To: EU - Recalls Lue; Sent: 01/05/2023 15:34:58 EST Show up: 01/05/2023 15:35:00 EST Subject: appt with Dr Booth Due Date/Time: 01/28/2023 15:35:00 EDT Reminder/Recall Patient will need seen by Dr Booth after blue light cystoscopy is completed at [facility] with Dr Zelaya appt with Dr Zelaya is scheduled for 02/22/23, will wait for consultation note. Consult note located on clinisync and scanned in to pt chart for review. From: Mana Hodges (EU - Recalls Lue) To: AI MITCHELL PA-C; Sent: 03/16/2023 08:21:03 EDT Show up: 03/16/2023 08:20:00 EDT Subject: RE: appt with Dr Booth Review Consult note pt is scheduled for BCG treatments. From: AI MITCHELL PA-C To: Reza JAMES, Dina Oconnell; Sent: 03/17/2023 22:55:13 EDT ! Show up: 03/17/2023 22:55:00 EDT there is another message in about this. CRISTÓBAL Normal [facility] Orders Onlyon 03-16-2023 Orders Only [id number] Wali Bejarano 1960 F Date Provider Department Center 03/16/2023 STEFAN GRAY [facility] No family history on file [facility] HISTOLOGY - TISSUE EXAMon LAB AP ASR [...] the Clinical Laboratory Improvement Amendments of 1998. 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.4] Performed By: #### L [id number] #### [facility] ([facility]) [address] [place] [address] LAB AP CASE REPORT Normal [facility] Comment on above: Order Comment: Pre-o p diagnosis: Malignant neoplasm of posterior wall of urinary bladder (CMS/HCC) [C67.4] Result Comment: Surg ical Pathology Case: [id number] Authorizing Provider: Lisa Zelaya MD Collected: 03/13/2023 0810 Ordering Location: [facility] Main Operating Room Received: 03/13/2023 0904 Pathologist: Kari Marte MD Specimens: A) - Urinary Bladder, 2. right lateral wall bladder lesion, R/O carcinoma in situ B) - Urinary Bladder, right posterior wall bladder lesion R/O carcinoma in CIS C) - Urinary Bladder, left anterior wall bladder lesion R/O carcinoma is situ Performed By: #### L [id number] #### [facility] (BEAKER) [address] [place] [address] LAB AP CLINICAL INFORMATION [facility] Comment on above: Order Comment: Pre-o p diagnosis: Malignant neoplasm of posterior wall of urinary bladder (CMS/HCC) [C67.4] Result Comment: Post -Op Diagnoses C67.4 - Malignant neoplasm of posterior wall of urinary bladder (CMS/HCC) [ICD-10-CM] Performed By: #### L [id number] #### [facility] ([employer]) [address] [place] [address] LAB AP DIAGNOSIS COMMENT A-C. CK20 immunostain shows positive staining in only the most superficial cells of the urothelial epithelium; this pattern is consistent with the above diagnoses. [facility] Comment on above: Order Comment: Pre-o p diagnosis: Malignant neoplasm of posterior wall of urinary bladder (CMS/HCC) [C67.4] Performed By: #### L [id number] #### [facility] (BEAKER) [address] [place] [address] LAB AP GROSS DESCRIPTION [facility] Comment on above: Order Comment: Pre-o p diagnosis: Malignant neoplasm of posterior wall of urinary bladder (CMS/HCC) [C67.4] Result Comment: A. U rinary Bladder. Received in formalin , labeled Daniella Perez Angemario, 2. right lateral wall bladder lesion, R/O carcinoma in situ . It consists of 4 rankin irregular soft fragments, 0.3-0.6 cm in greatest dimension and 1.0 x 0.8 x 0.2 cm in aggregate. The specimen is entirely submitted in 1 cassette. Yossi Hardin, Pathologists' Crap Game Box Person B. Urinary Bladder. Received in formalin , labeled Daniella Chris Neikirk, right posterior wall bladder lesion R/O carcinoma in CIS . It consists of a 0.5 x 0.3 x 0.2 cm irregular rankin soft fragment of tissue. The specimen is entirely submitted in 1 cassette. Yossi Hardin, Pathologists' Crap Game Box Person C. Urinary Bladder. Received in formalin , labeled Daniella Dillikirk, left anterior wall bladder lesion R/O carcinoma is situ . It consists of 4 white to pale-rankin soft fragments, 0.4-0.5 cm in greatest dimension and 0.8 x 0.7 x 0.2 cm in aggregate. The specimen is entirely submitted in 1 cassette. Portions of the specimen not survive processing. Yossi Hardin, Pathologists' Crap Game Box Person Performed By: #### L [id number] #### [facility] (BEAKER) [address] [place] [address] LAB AP MICROSCOPIC DESCRIPTION Microscopic examination performed. [facility] Comment on above: Order Comment: Pre-o p diagnosis: Malignant neoplasm of posterior wall of urinary bladder (CMS/HCC) [C67.4] Performed By: #### L [id number] #### [facility] (BEAKER) [address] [facility] [place] [place] [address] LAB AP REPORT FINAL DIAGNOSIS NARRATIVE [facility] Comment on above: Order Comment: Pre-o [...] - See comment. Performed By: #### L [id number] #### [facility] (BEAKER) [address] [facility] [place] [address] on 03-13-2023 --- Attestation signed by Lisa Zelaya MD at 03/13/2023 7:31 AM Saw Ms Bejarano explained procedure, informed consent confirmed. Lisa Zelaya MD, FACS Manager Test of Urology Chief of Urologic Oncology Ross Garcia Endowed Chair [address] [facility]. [address] [place], [place] [address] [facility] [phone] fax H&P reviewed. The patient was examined and there are no changes to the H&P. Normal [facility] NON-NETWORKS COMPUTER CONSULTANT CYTOLOGY - CELLULAR EXAMon 03-13-2023 LAB AP CASE REPORT Normal Robbie dupree [facility] Comment on above: Order Comment: Pre-o p diagnosis: Malignant neoplasm of posterior wall of urinary bladder (CMS/HCC) [C67.4] Result Comment: Non- gynecologic Cytology Case: [id number] Authorizing Provider: Lisa Zelaya MD Collected: 03/13/2023 0759 Ordering Location: [facility] Main Operating Room Received: 03/13/2023 0941 Pathologist: Adelita Peralta MD Specimen: Bladder washing, 1. bladder wash for cytology Performed By: #### L [id number] #### [facility] (BEAKER) [address] [place] [address] LAB AP CLINICAL INFORMATION 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.4] Result Comment: Post -Op Diagnoses C67.4 - Malignant neoplasm of posterior wall of urinary bladder (CMS/HCC) [ICD-10-CM] Performed By: #### L [id number] #### [facility] (BEAKER) [address] [place] [address] LAB AP DIAGNOSIS COMMENT 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.4] Result Comment: See also concurrent biopsy, [id number]. Performed By: #### L [id number] #### [facility] (BEAKER) [address] [place] [address] LAB AP GROSS DESCRIPTION [facility] Comment on above: Order Comment: Pre-o p diagnosis: Malignant neoplasm of posterior wall of urinary bladder (CMS/HCC) [C67.4] Result Comment: 80 m L yellow, cloudy fluid Performed By: #### L [id number] #### [facility] (BEAKER) [address] [facility] [place] [address] LAB AP REPORT FINAL DIAGNOSIS NARRATIVE Normal [facility] Comment on above: Order Comment: Pre-o p diagnosis: Malignant neoplasm of posterior wall of urinary bladder (CMS/HCC) [C67.4] Result Comment: A. B ladder washing: - Rare atypical urothelial cells Performed By: #### L [id number] #### [facility] (BEAKER) [address] [place] [address] NURSNOTEon 03-13-2023 NURSNOTE Pt with cont pain/bladder spasm. Notified Dr Barraza. Order for [place] and given orally due to IV Dc'd after infiltrate. Taken with crackers to avoid stomach upset. Pt cont with Scopalamine patch behind left ear. Instructions given for removal. [facility] NURSNOTE Reviewed DC instructions with patient and [...] draining clear yellow urine. Normal [facility] OPNOTEon 03-13-2023 OPNOTE --- Attestation with edits [...] I was present and performed entire procedure. Lsia Zelaya MD, FACS Manager Test of Urology Chief of Urologic Oncology Ross Jose Endowed Chair [address] [place], [place] [address] [facility] [phone] fax White and Blue-light cystoscopy, BLADDER BIOPSY, FULGURATION X3, Retrograde pyelogram, EUA (B) Operative Note Date: 03/13/2023 Location: [facility] OR Name: Daniella Bejarano, : 1960, [...] Priority Lab ID A Bladder washing Washing NON-NETWORKS COMPUTER CONSULTANT CYTOLOGY - CELLULAR EXAM Lisa Zelaya MD 03/13/23 7268 Description: 1. bladder wash for cytology B Urinary Bladder Tissue HISTOLOGY - TISSUE EXAM Lisa Zelaya MD 03/13/23 6563 Description: 2. right lateral wall bladder lesion, R/O carcinoma in situ C Urinary Bladder Tissue HISTOLOGY - TISSUE EXAM Lisa Zelaya MD 03/13/23817 Description: right posterior wall bladder lesion R/O carcinoma in CIS D Urinary Bladder Tissue HISTOLOGY - TISSUE EXAM Lisa Zelaya MD 03/13/23821 Description: left anterior wall bladder lesion R/O carcinoma is situ Staff: [employer] Product [employer] Manager: Fidelia Enriquez RN Scrub Person: Rika Tsai [...] recurrent bladder tumor. Pathology revealed high-grade noninvasive senior advisory, muscularis propria present and uninvolved. - 01/26/2022: [...] (more content not included)... Normal [facility] POCT GLUCOSE METER UNSOLICIT ED RESULTSon 03-13-2023 Glucose [Mass/Vol] 99 mg/dL Normal 70-105 [facility] Comment on above: Result Comment: pbar retcorson Performed By: #### L [id number] #### [facility] (BEAKER) [address] [place] [address] Orders Onlyon 03-10-2023 Orders Only [id number] Wali Bejarano 1960 F Date Provider Department Center 03/10/2023 [id number], HISTORICAL [facility] No family history on file Normal [facility] Outside Labson 03-10-2023 Outside Labs [id number]#1.00 CD:127 Normal [facility] Outside Pathology Reporton 0 03-10-2023 Outside Pathology Report [id number]#1.00 CD:127 Normal [facility] Outside Radiologyon 03-10-20 Outside Radiology [id number]#1.00 CD:127 Normal [facility] Consultation Noteon 03-09-20 Consultation Note [id number]#1.00C D:127 Normal [facility] Orders Onlyon 03-09-2023 Orders Only [id number] Wali Bejarano 1960 F Date Provider Department Center 03/09/2023 [place] AFT[place] C No family history on file Normal [facility] Pathology Noteon 03-09-2023 Pathology Note [id number]#1.00C D:127 Normal [facility] CBC AUTO DIFFon 03-06-2023 BASO # 0.1 103/ul Normal 0.0-0.1 [facility] Comment on above: Performed By: #### C YTO #### [facility] [address] [place] [address] [address] Troy Jeter Basophils/100 WBC (Bld) 1.1 % Normal 0.2-2.0 [facility] Comment on above: Performed By: #### C YTO #### [facility] [address] [place] [address] [address] Troy Jeter EO # 0.2 103/ul Normal 0.0-0.7 [facility] Comment on above: Performed By: #### C YTO #### [facility] [address] [place] [address] [address] Troy Jeter Eosinophils/100 WBC (Bld) 2.8 % Normal 0.9-7.0 [facility] Comment on above: Performed By: #### C YTO #### [facility] [address] [place] [address] [address] Troy Jeter Erythrocyte distribution width (RBC) [Ratio] 15.1 % Critically high 11.0-15.0 [facility] Comment on above: Performed By: #### C YTO #### [facility] [address] [place] [address] [address] Troy Jeter Hematocrit (Bld) [Volume fraction] 39.7 % Normal 36.0-48.0 [facility] Comment on above: Performed By: #### C YTO #### [facility] [address] [place] [address] [address] Troy Jeter Hemoglobin (Bld) [Mass/Vol] 12.3 g/dL Normal 12.0-16.0 [facility] Comment on above: Performed By: #### C YTO #### [facility] [address] [place] [address] [address] Troy Jeter IG # 0.02 10e3/ul Normal 0.00-0.03 [facility] Comment on above: Performed By: #### C YTO #### [facility] [address] [place] [address] Dr. Troy Jeter IG % 0.4 % Normal 0.0-0.5 [facility] Comment on above: Performed By: #### C YTO #### [facility] [address] [place] [address] Dr. Troy Jeter LYMPH # 1.3 103/ul Normal 1.2-3.8 [facility] Comment on above: Performed By: #### C YTO #### [facility] [address] [place] [address] Dr. Troy Jeter Lymphocytes/100 WBC (Bld) 22.0 % Normal 20.5-60.0 [facility] Comment on above: Performed By: #### C YTO #### [facility] [address] [place] [address] Dr. Troy Jeter MANUAL DIFF REQ NO Normal [facility] Comment on above: Performed By: #### C YTO #### [facility] [address] [place] [address] Dr. Troy Jeter MCH (RBC) [Entitic mass] 25.5 pg Critically low 26.7-34.0 [facility] Comment on above: Performed By: #### C YTO #### [facility] [address] [place] [address] Dr. Troy Jeter MCHC (RBC) [Mass/Vol] 31.0 g/dL Normal 29.9-35.2 [facility] Comment on above: Performed By: #### C YTO #### [facility] [address] [place] [address] Dr. Troy Jeter MCV (RBC) [Entitic vol] 82.2 fL Normal 81.0-99.0 [facility] Comment on above: Performed By: #### C YTO #### [facility] [address] [place] [address] [address] Troy Jeter MONO # 0.5 103/ul Normal 0.3-0.[address] [facility] Comment on above: Performed By: #### C YTO #### [facility] [address] [place] [address] [address] Troy Jeter Monocytes/100 WBC (Bld) 8.6 % Normal 1.7-12.0 [facility] Comment on above: Performed By: #### C YTO #### [facility] [address] [place] [address] Dr. Troy Jeter NEUT # 3.7 103/ul Normal 1.4-6.5 [facility] Comment on above: Performed By: #### C YTO #### [facility] [address] [place] [address] Dr. Troy Jeter Neutrophils/100 WBC (Bld) 65.1 % Normal 43.0-75.0 [facility] Comment on above: Performed By: #### C YTO #### [facility] [address] [place] [address] Dr. Troy Jeter Platelet mean volume (Bld) [Entitic vol] 9.0 fL Critically low 9.5-13.5 [facility] Comment on above: Performed By: #### C YTO #### [facility] [address] [place] [address] Dr. Troy Jeter PLT 211 103/ul Normal 150-[address] [facility] Comment on above: Performed By: #### C YTO #### [facility] [address] [place] [address] Dr. Troy Jeter RBC 4.83 106/ul Normal 4.20-5.[address] [facility] Comment on above: Performed By: #### C YTO #### [facility] [address] [place] [address] Dr. Troy Jeter WBC 5.7 103/ul Normal 4.0-11.[address] [facility] Comment on above: Performed By: #### C YTO #### [facility] [address] [place] [address] Dr. Troy Jeter PROF 14(COMP METB)on 023 Albumin [Mass/Vol] 3.4 g/dL Normal 3.4-5.0 [facility] Comment on above: Performed By: #### C BC #### [facility] [address] [place] [address] Dr. Troy Jeter Albumin/Globulin [Mass ratio] 0.9 {ratio} Normal [facility] Comment on above: Performed By: #### C BC #### [facility] [address] [place] [address] Dr. Troy Jeter ALP [Catalytic activity/Vol] 94 U/L Normal 46-116 [facility] Comment on above: Performed By: #### C BC #### [facility] [address] [place] [address] Dr. Troy Jeter ALT [Catalytic activity/Vol] 61 U/L Critically high 14-59 [facility] Comment on above: Performed By: #### C BC #### [facility] [address] [place] [address] Dr. Troy Jeter Anion gap [Moles/Vol] 11.6 mmol/L Normal [facility] Comment on above: Performed By: #### C BC #### [facility] [address] [place] [address] Dr. Troy Jeter AST [Catalytic activity/Vol] 48 U/L Critically high 15-37 [facility] Comment on above: Performed By: #### C BC #### [facility] [address] [place] [address] Dr. Troy Jeter Bilirubin [Mass/Vol] 0.3 mg/dL Normal 0.2-1.0 [facility] Comment on above: Performed By: #### C BC #### [facility] [facility] [address] [place] [address] Dr. Troy Jeter Calcium [Mass/Vol] 9.3 mg/dL Normal 8.5-10.1 [facility] Comment on above: Performed By: #### C BC #### [facility] [address] [address] [address] Troy Jeter Chloride [Moles/Vol] 106 mmol/L Normal 98-107 [facility] Comment on above: Performed By: #### C BC #### [facility] [address] [address] [address] Troy Jeter CO2 [Moles/Vol] 25.4 mmol/L Normal 21.0-32.0 [facility] Comment on above: Performed By: #### C BC #### [facility] [address] [address] [address] Troy Jeter Creatinine [Mass/Vol] 1.06 mg/dL Critically high 0.55-1.02 [facility] Comment on above: Performed By: #### C BC #### [facility] [address] [place] [address] Dr. Troy Jeter EGFR-AF NAMIBIAN >60 Normal >=60 [facility] Comment on above: Performed By: #### C BC #### [facility] [address] [place] [address] Dr. Troy Jeter EGFR-NON AF NAMIBIAN 52 mL/min/1.73m2 Critically low >=60 [facility] Comment on above: Performed By: #### C BC #### [facility] [address] [place] [address] Dr. Troy Jeter Globulin (S) [Mass/Vol] 4.0 g/dL Normal [facility] Comment on above: Performed By: #### C BC #### [facility] [address] [place] [address] Dr. Troy Jeter Glucose [Mass/Vol] 132 mg/dL Critically high 74-106 [facility] Comment on above: Performed By: #### C BC #### [facility] [address] [place] [address] Dr. Troy Jeter Potassium [Moles/Vol] 4.0 mmol/L Normal 3.5-5.1 [facility] Comment on above: Performed By: #### C BC #### [facility] [address] [address] [address] Troy Jeter Protein [Mass/Vol] 7.4 g/dL Normal 6.4-8.2 [facility] Comment on above: Performed By: #### C BC #### [facility] [address] [place] [address] Dr. Troy Jeter Sodium [Moles/Vol] 139 mmol/L Normal 136-145 [facility] Comment on above: Performed By: #### C BC #### [facility] [address] [place] [address] Dr. Troy Jeter Urea nitrogen [Mass/Vol] 16.0 mg/dL Normal 7.0-18.0 [facility] Comment on above: Performed By: #### C BC #### [facility] [address] [place] [address] Dr. Troy Jeter Urea nitrogen/Creatinine [Mass ratio] 15.1 mg/mg Normal [facility] Comment on above: Performed By: #### C BC #### [facility] [address] [place] [address] Dr. Troy Jeter CBC AUTO DIFFon 03-02-2023 BASO # 0.1 103/ul Normal 0.0-0.1 [facility] Comment on above: Performed By: #### C YTO #### [facility] [address] [place] [address] Dr. Troy Jeter Basophils/100 WBC (Bld) 0.9 % Normal 0.2-2.0 [facility] Comment on above: Performed By: #### C YTO #### [facility] [address] [place] [address] Dr. Troy Jeter EO # 0.2 103/ul Normal 0.0-0.[address] [facility] Comment on above: Performed By: #### C YTO #### [facility] [address] [place] [address] Dr. Troy Jeter Eosinophils/100 WBC (Bld) 2.9 % Normal 0.9-7.0 [facility] Comment on above: Performed By: #### C YTO #### [facility] [address] [place] [address] Dr. Troy Jeter Erythrocyte distribution width (RBC) [Ratio] 15.3 % Critically high 11.0-15.0 [facility] Comment on above: Performed By: #### C YTO #### [facility] [address] [place] [address] Dr. Troy Jeter Hematocrit (Bld) [Volume fraction] 36.8 % Normal 36.0-48.0 [facility] Comment on above: Performed By: #### C YTO #### [facility] [address] [place] [address] Dr. Troy Jeter Hemoglobin (Bld) [Mass/Vol] 11.5 g/dL Critically low 12.0-16.0 [facility] Comment on above: Performed By: #### C YTO #### [facility] [address] [place] [address] Dr. Troy Jeter IG # 0.02 10e3/ul Normal 0.00-0.03 [facility] Comment on above: Performed By: #### C YTO #### [facility] [address] [place] [address] Dr. rToy Jeter IG % 0.3 % Normal 0.0-0.5 [facility] Comment on above: Performed By: #### C YTO #### [facility] [address] [place] [address] Dr. Troy Jeter LYMPH # 1.5 103/ul Normal 1.2-3.[address] [facility] Comment on above: Performed By: #### C YTO #### [facility] [address] [place] [address] Dr. Troy Jeter Lymphocytes/100 WBC (Bld) 24.8 % Normal 20.5-60.0 [facility] Comment on above: Performed By: #### C YTO #### [facility] [address] [place] [address] Dr. Troy Jeter MANUAL DIFF REQ NO Normal [facility] Comment on above: Performed By: #### C YTO #### [facility] [address] [place] [address] Dr. Troy Jeter MCH (RBC) [Entitic mass] 25.4 pg Critically low 26.7-34.[address] [facility] Comment on above: Performed By: #### C YTO #### [facility] [address] [place] [address] Dr. Troy Jeter MCHC (RBC) [Mass/Vol] 31.3 g/dL Normal 29.9-35.[address] [facility] Comment on above: Performed By: #### C YTO #### [facility] [address] [place] [address] Dr. Troy Jeter MCV (RBC) [Entitic vol] 81.4 fL Normal 81.0-99.[address] [facility] Comment on above: Performed By: #### C YTO #### [facility] [address] [place] [address] Dr. Troy Jeter MONO # 0.5 103/ul Normal 0.3-0.[address] [facility] Comment on above: Performed By: #### C YTO #### [facility] [address] [place] [address] Dr. Troy Jeter Monocytes/100 WBC (Bld) 8.4 % Normal 1.7-12.[address] [facility] Comment on above: Performed By: #### C YTO #### [facility] [address] [place] [address] Dr. Troy Jeter NEUT # 3.7 103/ul Normal 1.4-6.[address] [facility] Comment on above: Performed By: #### C YTO #### [facility] [address] [place] [address] Dr. Troy Jeter Neutrophils/100 WBC (Bld) 62.7 % Normal 43.0-75.[address] [facility] Comment on above: Performed By: #### C YTO #### [facility] [address] [place] [address] Dr. Troy Jeter Platelet mean volume (Bld) [Entitic vol] 9.2 fL Critically low 9.5-13.[address] [facility] Comment on above: Performed By: #### C YTO #### [facility] [address] [address] [address] Troy Jetre PLT 193 103/ul Normal 150-450 [facility] Comment on above: Performed By: #### C YTO #### [facility] [address] [place] [address] Dr. Troy Jeter RBC 4.52 106/ul Normal 4.20-5.40 [facility] Comment on above: Performed By: #### C YTO #### [facility] [address] [address] [address] Troy Jeter WBC 5.9 103/ul Normal 4.0-11.0 [facility] Comment on above: Performed By: #### C YTO #### [facility] [address] [place] [address] Dr. Troy Jeter GLYCOHEMOGLOBIN A1Con 2022 ADA RECOMMENDATION SEE BELOW Normal [facility] Comment on above: Result Comment: ADA RECOMMENDED LIMIT 4.0 - 6.0 ADA THERAPEUTIC TARGET < 7.0 ACTION SUGGESTED > 7.0 Performed By: #### C BC #### [facility] [address] [place] [address] Dr. Troy Jeter Glucose [Mass/Vol] 123 mg/dL Normal [facility] Comment on above: Performed By: #### C BC #### [facility] [address] [place] [address] Dr. Troy Jeter HbA1c (Bld) [Mass fraction] 5.9 % Normal 4.5-6.2 [facility] Comment on above: Performed By: #### C BC #### [facility] [address] [place] [address] Dr. Troy Jeter LIPID PROFILEon 03-02-2023 CHOL-HDL RATIO NORM SEE BELOW Normal [facility] Comment on above: Result Comment: 3.3 - 4.4 LOW RISK 4.4 - 7.1 AVERAGE RISK 7.1 - 11.0 MODERATE RISK >11.0 HIGH RISK Performed By: #### C YTO #### [facility] [address] [place] [address] Dr. Troy Jeter Cholesterol [Mass/Vol] 156 mg/dL Normal <=200 [facility] Comment on above: Performed By: #### C YTO #### [facility] [address] [address] [address] Troy Jeter Cholesterol in HDL [Mass/Vol] 64 mg/dL Critically high 40-60 [facility] Comment on above: Performed By: #### C YTO #### [facility] [address] [address] [address] Troy Jeter Cholesterol in LDL [Mass/Vol] 76.4 mg/dL Normal [facility] Comment on above: Performed By: #### C YTO #### [facility] [address] [address] [address] Troy Jeter Cholesterol.total/Ch olesterol in HDL [Mass ratio] 2.4 {ratio} Normal [facility] Comment on above: Performed By: #### C YTO #### [facility] [address] [place] [address] Dr. Troy Jeter HDL NORMAL > or = 60 mg/dl - LO W CARDIOVASCULAR RISK <40 mg/dl - HIGH CARDIOVASCULAR RISK Normal [facility] Comment on above: Performed By: #### C YTO #### [facility] [address] [place] [address] Dr. Troy Jeter LDL CALC NORMAL SEE BELOW Normal [facility] Comment on above: Result Comment: <100 mg/dl OPTIMAL 100 - 129 mg/dl NEAR OR ABOVE OPTIMAL 130 - 159 mg/dl BORDERLINE HIGH 160 - 189 mg/dl HIGH >190 mg/dl VERY HIGH Performed By: #### C YTO #### [facility] [address] [address] [address] Troy Jeter Triglyceride [Mass/Vol] 78 mg/dL Normal <=[address] [facility] Comment on above: Performed By: #### C YTO #### [facility] [address] [place] [address] Dr. Troy Jeter VLDL CALC 15.6 mg/dL Normal [facility] Comment on above: Performed By: #### C YTO #### [facility] [address] [place] [address] Dr. Troy Jeter PROF 14(COMP METB)on 023 Albumin [Mass/Vol] 3.2 g/dL Critically low 3.4-5.[address] [facility] Comment on above: Performed By: #### C YTO #### [facility] [address] [place] [address] Dr. Troy Jeter Albumin/Globulin [Mass ratio] 0.8 {ratio} Normal [facility] Comment on above: Performed By: #### C YTO #### [facility] [address] [place] [address] Dr. Troy Jeter ALP [Catalytic activity/Vol] 90 U/L Normal 46-116 [facility] Comment on above: Performed By: #### C YTO #### [facility] [address] [place] [address] Dr. Troy Jeter ALT [Catalytic activity/Vol] 58 U/L Normal 14-59 [facility] Comment on above: Performed By: #### C YTO #### [facility] [address] [place] [address] Dr. Troy Jeter Anion gap [Moles/Vol] 10.5 mmol/L Normal [facility] Comment on above: Performed By: #### C YTO #### [facility] [address] [place] [address] Dr. Troy Jeter AST [Catalytic activity/Vol] 40 U/L Critically high 15-37 [facility] Comment on above: Performed By: #### C YTO #### [facility] [address] [place] [address] Dr. Troy Jeter Bilirubin [Mass/Vol] 0.3 mg/dL Normal 0.2-1.0 [facility] Comment on above: Performed By: #### C YTO #### [facility] [address] [place] [address] Dr. Troy Jeter Calcium [Mass/Vol] 9.1 mg/dL Normal 8.5-10.1 [facility] Comment on above: Performed By: #### C YTO #### [facility] [address] [address] [address] Troy Jeter Chloride [Moles/Vol] 106 mmol/L Normal 98-[address] [facility] Comment on above: Performed By: #### C YTO #### [facility] [address] [address] [address] Troy Jeter CO2 [Moles/Vol] 27.6 mmol/L Normal 21.0-32.0 [facility] Comment on above: Performed By: #### C YTO #### [facility] [address] [address] [address] Troy Jeter Creatinine [Mass/Vol] 1.01 mg/dL Normal 0.55-1.02 [facility] Comment on above: Performed By: #### C YTO #### [facility] [address] [place] [address] Dr. Troy Jeter EGFR-AF NAMIBIAN >60 Normal >=60 [facility] Comment on above: Performed By: #### C YTO #### [facility] [address] [place] [address] Dr. Troy Jeter EGFR-NON AF NAMIBIAN 55 mL/min/1.73m2 Critically low >=60 [facility] Comment on above: Performed By: #### C YTO #### [facility] [address] [address] [address] Troy Jeter Globulin (S) [Mass/Vol] 3.9 g/dL Normal [facility] Comment on above: Performed By: #### C YTO #### [facility] [address] [address] [address] Troy Jeter Glucose [Mass/Vol] 112 mg/dL Critically high 74-106 [facility] Comment on above: Performed By: #### C YTO #### [facility] [address] [address] [address] Troy Jeter Potassium [Moles/Vol] 4.1 mmol/L Normal 3.5-5.[address] [facility] Comment on above: Performed By: #### C YTO #### [facility] [address] [address] [address] Troy Jeter Protein [Mass/Vol] 7.1 g/dL Normal 6.4-8.2 [facility] Comment on above: Performed By: #### C YTO #### [facility] [address] [address] [address] Troy Jeter Sodium [Moles/Vol] 140 mmol/L Normal 136-145 [facility] Comment on above: Performed By: #### C YTO #### [facility] [address] [address] [address] Troy Jeter Urea nitrogen [Mass/Vol] 14.0 mg/dL Normal 7.0-18.0 [facility] Comment on above: Performed By: #### C YTO #### [facility] [address] [place] [address] Dr. Troy Jeter Urea nitrogen/Creatinine [Mass ratio] 13.9 mg/mg Normal [facility] Comment on above: Performed By: #### C YTO #### [facility] [address] [address] [address] Troy Jeter TSHon 03-02-2023 TSH 3.047 uIU/mL Normal 0.358-3.740 [facility] Comment on above: Performed By: #### C YTO #### [facility] [address] [place] [address] Dr. Troy Jeter Orders Onlyon 02-28-2023 Orders Only [id number] Wali Bejarano 1960 F Date Provider Department Center 02/28/2023 [id number], HISTORICAL [facility] No family history on file Normal [facility] HPon 02-22-2023 HP PATIENT: Daniella Bejarano DATE [...] recurrent bladder tumor. Pathology revealed high-grade noninvasive senior advisory, muscularis propria present and uninvolved. - 01/26/2022: [...] past medical history of Arthritis, Bladder cancer ([facility]/HCC), Breast cancer ([facility]/HCC) (2018), GERD (gastroesophageal reflux disease), History of [...] , Rfl: ergocalciferol (Vitamin D-2) 1.25 MG (58502 Units) capsule, Take by mouth., Disp: , [...] Rfl: calcium carb-vitam (more content not included)... [facility] NON-NETWORKS COMPUTER CONSULTANT CYTOLOGY - CELLULAR EXAMon 02-22-2023 LAB AP CASE REPORT Normal [facility] Comment on above: Result Comment: Non- gynecologic Cytology Case: [id number] Authorizing Provider: Lisa Zelaya MD Collected: 02/22/2023 1206 Ordering Location: [facility] Received: 02/22/2023 1206 Urology Pathologist: Yossi Sterling MD Specimen: Urine, Voided Performed By: #### L [id number] #### [facility] ([facility]) [address] [place] [address] LAB AP CLINICAL INFORMATION Order Diagnoses [facility] Comment on above: Result Comment: C67. 4 - Malignant neoplasm of posterior wall of urinary bladder (CMS/HCC) [ICD-10-CM] Performed By: #### L [id number] #### [facility] [address] [place] [address] LAB AP GROSS DESCRIPTION [facility] Comment on above: Result Comment: 12 m L yellow, cloudy fluid Performed By: #### L [id number] #### [facility] ([facility]) [address] [place] [address] LAB AP REPORT FINAL DIAGNOSIS NARRATIVE [facility] Comment on above: Result Comment: A. U rine, Voided: - Negative for high grade urothelial carcinoma. Performed By: #### L [id number] #### [facility] ([facility]) [address] [place] [address] Office Visiton 02-22-2023 Follow-up visit [id number] Wali Bejarano 1960 F Date Provider Department Center 02/22/2023 397-DIETER LISA [facility] No family history on file Level of Service:89352 LA OFFICE/OUTPATIENT NEW HIGH MDM 60-74 MINUTES Reason for Visit and Comments: New Patient [632] - Bladder ca Normal [facility] Orders Onlyon 02-22-2023 Orders Only [id number] Wali Bejarano 1960 F Date Provider Department [place] 02/22/2023 924-STEFAN GALINDO [facility] No family history on file Normal [facility] URINALYSIS WITH MICROSCOPICo n 02-22-2023 BILIRUBIN, TOTAL PRESENCE IN URINE Negative Normal Negative [facility] Comment on above: Performed By: #### L [id number] ####[facility] ([facility])[address] [place] [address] Clarity (U) Clear Normal Clear [facility] Comment on above: Performed By: #### L [id number] ####[facility] ([facility])[address] [place] [address] Color (U) Yellow Normal Yellow [facility] Comment on above: Performed By: #### L [id number] ####[facility] ([facility])[address] [place] [address] Glucose (U) [Mass/Vol] Negative Normal Negative [facility] Comment on above: Performed By: #### L [id number] ####[facility] ([facility])[address] [place] [address] HEMOGLOBIN PRESENCE IN URINE Negative Normal Negative [facility] Comment on above: Performed By: #### L [id number] ####[facility] ([facility])[address] [place] [address] Ketones Ql (U) Negative Normal Negative [facility] Comment on above: Performed By: #### L [id number] ####[facility] ([facility])[address] [place] [address] LEUKOCYTE ESTERASE PRESENCE IN URINE BY TEST STRIP Trace Abnormal Negative [facility] Comment on above: Performed By: #### L [id number] ####[facility] ([facility])[address] [place] [address] MUCUS (#/HPF) IN URINE SEDIMENT Occasional Normal None Seen, Occasional, Few [facility] Comment on above: Performed By: #### L [id number] ####[facility] ([facility])[address] [place] [address] NITRITE PRESENCE IN URINE Negative Normal Negative [facility] Comment on above: Performed By: #### L [id number] ####[facility] ([facility] [place] [address] pH (U) 5.0 [pH] Normal 5.0-8.0 [facility] Comment on above: Performed By: #### L [id number] ####[facility] ([facility])[address] [place] [address] Protein (U) [Mass/Vol] Negative Normal Negative [facility] Comment on above: Performed By: #### L [id number] ####[facility] [place] [address] RBC (#/HPF) IN URINE SEDIMENT None Seen Normal None Seen [facility] Comment on above: Performed By: #### L [id number] ####[facility] (AKER)[address] [place] [address] Specific gravity (U) [Rel density] 1.011 Low 1.015-1.020 [facility] Comment on above: Performed By: #### L [id number] ####[facility] (BEAKER)[address] [place] [address] SQUAMOUS EPITHELIAL CELLS (#/HPF) IN URINE SEDIMENT Many Abnormal None Seen, Occasional [facility] Comment on above: Performed By: #### L [id number] ####[facility] (BEAKER)[address] [place] [address] WBC (LEUKOCYTE) (#/HPF) IN URINE SEDIMENT 3-5 Abnormal None Seen [facility] Comment on above: Performed By: #### L [id number] ####[facility] (BEAKER)[address] [place] [address] URINE CULTURE, ROUTINEon Bacteria identified Cx Nom (U) No growth at 18-24 hours Normal [facility] Comment on above: Performed By: #### L [id number] ####[facility] (BEAKER)[address] [place] [address] Retail - Clinical Noteon Retail - Clinical Note [id number]#1.00C D:127 Normal [facility] Ambulatory Visit Summaryon 0 01-04-2023 Ambulatory [...] to do next Scheduled Follow-Up Appointments Monday 12:30 PM EDT With: Jeff Booth DO [...] bladder f (more content not included)... Normal [facility] Patient Educationon 01-05-20 23 Patient Education Oncology Bladder Cancer Bladder cancer [...] Follow these instructions at home: ? Take dcbg-jlj-vdyaxrz and prescription medicines only as told by [...] important. Where to find more information ? [employer]: www.cancer.org ? National [employer] (NCI): www.cancer.gov Contact a health care provider [...] 10/18/2004 Document Revised: 09/28/2018 Document Reviewed: 09/19/2017 [employer] Patient Education ? 2019 [employer]. Normal [facility] Urology Office/Clinic Noteon 01-04-2023 Urology Office/Clinic [...] see if Blue Light Cystoscopy available at [facility] for TURBT to further evaluate and resect possible CIS. -Our office w/ consult with Dr. Booth regarding treatment in setting of suspected malignancy. 2. OAB (overactive bladder) (N32.81: Overactive bladder) Continues taking VESIcare 10mg daily. Improvement but still with sx Patient has new insurance and will attempt to get Myrbetriq covered. Has dianne (more content not included)... Normal [facility] Comment on above: Result Comment: Elec tronically Signed By: Dina Cobb MD\.br\Date and Time Signed: 01/04/23 12:20 EST\.br\Electronically Co-Signed By: Pratibha Rodriguez\.br\Date and Time Co-Signed: 01/04/23 09:08 EST\.br\Electronically Co-Signed By: Pratibha Rodriguez\.br\Date and Time Co-Signed: 01/04/23 09:18 EST Lab Reportson 01-03-2023 Lab Reports [id number]#1.00C D:127 Normal [facility] Pathology Noteon 01-03-2023 Pathology Note [id number]#1.00CD :127 Normal [facility] Pathology Note [id number]#1.00C D:127 Normal [facility] Operative Reporton Operative Report [id number]#1.00C D:127 Normal [facility] Formson 12-29-2022 Forms [id number]#1.00C D:127 Normal [facility] CYTOLOGYon 12-28-2022 SENT TO REF LAB 12/28/2022 [facility] Comment on above: Performed By: #### C YTO #### [facility] [address] [place] [address] Dr. Troy Jeter SENT TO REF LAB 12/28/2022 [facility] Comment on above: Performed By: #### C YTO #### [facility] [address] [place] [address] Dr. Troy Jeter Pre-Certification Formon Pre-Certification Form [id number]#1.0 0CD:127 [facility] PROTIMEon 12-21-2022 INR Coag (PPP) [Relative time] 1.00 {INR} [facility] Comment on above: Performed By: #### C YTO #### [facility] [address] [place] [address] Dr. Troy Jeter INR GUIDELINES SEE BELOW [facility] Comment on above: Result Comment: LORENA RED INR: 2.0 - 3.0 CONDITIONS NOT LISTED BELOW 2.5 - 3.5 FOR PROSTHETIC HEART VALVE REPLACEMENT 2.5 - 3.5 RECURRENT THROMBOSIS Performed By: #### C YTO #### [facility] [address] [place] [address] Dr. Troy Jeter PT Coag (PPP) [Time] 10.6 s Normal 9.0-11.[address] [facility] Comment on above: Performed By: #### C YTO #### [facility] [address] [place] [address] [address] Troy Jeter PTTon 12-21-2022 aPTT Coag (Bld) [Time] 26.9 s Normal 22.3-36.[address] [facility] Comment on above: Performed By: #### C ZIGGYO #### [facility] [address] [place], [place] [id number] Dr. Troy Jeter Coding Summary.on 12-17-2022 Coding Summary. CD:[id number] Gh0 bWw+PGhlYWQ+CR2TAMWxD67 qxQSoeP4AD7bAGP5GKKLFPJ DNTY6EOQ5ahSW1VAxxE7Eof iAv AmnzdLKlKB89MWn4TTG0tZx mFOxykZ0qoBTwX9r3ZzMlDB 41aE51QHikUPFhGeB9CjIgw jsgbWFy Y4ccFdKnySJmEzr+PHRhYmx lIHdpZHRoPScxMDAlJyBzdH qjYI5sTc6nOJTdLZIplNfbo HNlOiBj u1jzUUEkORjcLY4mqKxbI7G ksMQ7ZEThe6t9Lw82hAR+PH OlNQW8hIzjMCrql438QxUct 2gmQXQ5 yGJcKMqlFHQ7H40nw9J5WDA dYGLdGAX1xGA4wH0xiRfnij amO9MbhGLzWaH0QWL0wEFtl D7egBln vgbohG6vEem+K25EVK0NZVJ TGJ2PNrh3T1GbAektnKU+PC 50DWDgUJ98kLDshQJbm3vur Dt3DaWs NMOgJYH8rTcdIEocv7PdFNK cR38ezQIvu9X1GLKhgUqitZ LwHvPcnBG1xD1iYQubgjeau 2hvdzsn Noerg3vzzb70nY14P61lMEd pWIEbWWX5MPRlNEDjjLxnvs 3arC5aVa5+EBkzl9fir1pvi Wu2SqKm MTYksaRguHfbWZF4a8TnMk9 1I2HmmIcom4OaSsx0ly50mW Uuk3I4nVT2ZGahXFBchD5rF WxlZnQ6 ZTRsIyQmiB27zGFqNZtwTm9 pqAdtuFcxWR6tIXWsdlxtTF ShiH3rLOEruPNmvHgrXF6pK TBpbjtm m617FiReLWF3ASSlpKAyY4A spD8qPjQrDAIpAVBtJ0BkjJ YfBLksF590OUltGrR4FSXbo kClM4Aw XBCzcIpfDtN1o6Y7Jj9Ea0H yfrrmCPG8LQlvKZBtOuV9Xm DuDeL0F3UbMbe7MHNbiShkR I7qW8Tu PKUvwbbuxpdvaWZ9SQLnPOU asB26vOUlVGfzSj6ta1Z6l5 92UELhZZOdeC94Dd2quDoeR TBwdCBU nH7rfilkd8qoxltpEyOnYGT jRDx6MEl6GYSmgLskHzLoMK S1HrA8GSC7vWPniO5lqVffb gmzoS7x Oyc+T73swJ2uZMT1UFH7lis vYWAkoiWtQT50KY72V7DiTd wvdGFibGU+PGRpdiBzdHlsZ F9sWnBa k0esm8KoLWapH1CkHPTeTNm zYhc6KUAiNUT9aTH1gY8kQE TqRQxuq5J3vUO2H8CbwkEqu x8iv7pz OJXcURhdD13liJPzv3J4BIZ qpZO9ZCNnrTrdOaOdhG98Qh c+TIPpaItdl4ToIzygo7amn 1cehPs4 QsVzWAEcwaZxvHmwOST2p1V iNe10L82fUXtwWXWgVEEtAR JmEWGaaVstpd5eoM0dLg5+P GNvbCB3 tHS2dM2cVOHbWjE9LPtmR01 5JfYxzPDyMtiam0nik3iyeU y7VaFfWGTejrUbuYhmKGM5k 1TuFf74 X93wUGtkVRMkBGUnHUElZET yhAhrny6lmX8cDg4+PC9jb2 litf43qM05eQL+LWNsTEN8t WxlPSdw ZISxkC0nLKxvCzU7EEHuIvQ rtH62wFYyAWgnMa1kqZpftR kdVO2sWBGqutfsp848LtLoo 2xkIDEw oVRwOQbkRTM4X65ml4Q0XZW pYKYpWFI5wEM7kU4uwXvlbb ogbGVmdDsgdmVydGljYWwtY AysZ248 IHRvcDsnPlBhdGllbnQgTmF kVTi1S3RvSym7FBLboHakKJ 3erORtYRnnJa2udZwkxHwdX H7wAIRk dtaxv394ZuExb8mbMGEjgVC oFLwyKXH5E32rp4D9NEVqLK JqVDS2uXF1kT0fyFmzfweep GVmdDsg xmTcbSpgMVamINbuM725PJV yzYjwPeOqgmCjYIDreXH4MH 00UA87vOPtn4N2aPP4M1WsM GRpbmct xaudvFS4FTGeIBBldG05Vw4 zzCdnRn7gRWPnHRM9IWKwkN IgG8XbeS0lMvHrKJIcTSOrE 3RleHQt TLwyD592AWbuViL6PABknpB nL5RyCZImsIahZmN0b8F1Hy 4WU5P0XL80KM77dKDyg0X4s DJ7D8Kp PYLsyphrrsklgBF8NYJbROT kkT49Zt9aiOalCt3fDWUfQK Z2VJUqaQKpT6TilU2bFgIdY DAwMDAw R3BegOMtUKxhM386HMuiHlW 6QBDmiiCdH1CoUZVseYhlBk Q9n7J6Kb8SGIv5UM22HX60m PWkj4F1 kUA3J8FuANIywsdogjtcjJP 7BQXqAVSbzU13Og6tkYtjCx 1xYXIuJQE6DRRwvCHeV8Zii M8yLxEy WMQpPAFkW4RtwKBdYJcsE34 4PYbmCsV0KZUqdtViY3SeTW NxnBvcAtS4f9Y8Vq9USUBeH I95BPI1 bZE7PK46SF13X6FsBoignKJ ibGU+PHRhYmxlIHdpZHRoPS rqQQAyVhZbhVndUD2ePy0uT GVyLWNv uKwlcOUvFqJyo7wcTEAmNPv aIR8kmJlmQ1TeyDR9DAUno3 b3Au11Z55tN9NwmPG+PGNvb IV5xBQ7 nZ0wSxDxBnN0DQldZ050WgP ivUGiAuylt4ibr1cyyPr1Xy L3ILDksfIhdEnvEOJ9v5StT k70I20o IHdpZHRoPSIxNSUiIHZhbGl vsu2tyS7xGr0+WQZscRM5yK A5rR3lWwGaDgN8YMonU006O nRvcCIv Ofpsx3sgh2kkpSw4OmOdGUZ ugaIouYggBBZ2c0YrOy40Y9 SvyNnmr8AcYkr3cs80hPPcu 2A1iOF5 T3YcFOEmxaumdFJpwZvrEC7 kLBUfonljDPJonN2lTAQbE2 t6RvIfNjF0DHcgK0PcmbP4R DEwcHQg HXgtAAJ2N69ud8I1YYCfRLB jTLD7aVU6cF2flPduvqmtaC VmdDsgdmVydGljYWwtYWxpZ 246IHRv fYtzXTCziD5tPQTstVAxrSw fTT1hYVOrxhfhEp0FKJkNCf dsHGHHYokTGkMVHW36IT17h TOlh6R4 yEC0V2QzBHOgdkurwxbasCW 8DTBuYAVzeM05pXDjFBjaAw 7vu2Q4n810TWZxYJQebV10B g0otUrm UTKjeLDQpT2hjxafe5yhpwr zIjZiXMEwEUi6DYx4JCCkhF spEsLsDKE9WrQ4WQF6oXPym U4qkDgq gmrajR5hNzl+MDgvMjIvMTk 1ODwvdGQ+MPQkNZO0fJfpRL hdIOPnwK8fMWMqV5e9BgKhJ wY7SFks L4KpOUJyszgrEu70hI8gJfM nYeE0GJcgC8NlbiE4TJImoO EgIJzqIBK3W21lw2L1QCPsK DAwMDA7 uRG0sT5lrXwejftyyIYkrOi stiImaKhxUGnuBLjtO164CT SapZwnNuO6NOwyUOMsQG74J W88cKUt k2A2zPW0Y1OjCFJrlelvknd evNP4KCRuTCZdrU05bXRcZK hpIu6vy0W4a497JRCsJYWjh K94Rk7n iGhuSIEyyGXDdF7eikatl5v aumexAdPaVKHxPEn1UOi4HE NlkBxqZfXxCKM4LgO5PII7a TRciJ7g gKneiambaV6hVah+RmVtYWx kFM20CU39fJCyt8I4vHK3S3 AqKFDcybdplogmfXW1NESaQ DUwaW47 pPGkSNucQa4uw7B2z063EUX tZCWdkD75Ks6oxJhtYGYbnJ OBpT1ihtmxg5zqtskaBiWfI DAwMDt0 LJg9NYZcgWubTeXbQKM8ToT 5TLI9aSUwqW5iiTnqmufszG 9wOyc+UWWkDWOmr3Umr2PiZ G68QF39 O4VuJfrfrGBaoYQ+PHRhYmx lIHdpZHRoPScxMDAlJyBzdH ldVS9jIj5lNCCeVCEjsHnxv HNlOiBj u2lhTQByCBkdHQ4qnSlzS8W ytHG2LGGjj0i5Yz98N95pV3 JvdXA+EPRdtTE1sZP1mH6iY zAlIiB2 ALnzL913BqHglLJqIcqcl8r lc9aetOh9JwTmNHVqcxBgyG fqCFC4q8OaSh07D76qMKnyL HRoPSIy JLWtAPUtjAfnjs0erJ7nOz5 +YLZoeZL7aLL4zX1gUmPyJt Y3LTtgA449BwWuvOSwIkoiW 59tX0Vd dXA+SKDoVqf4PBKgjDepHG7 ueVOzNZrwIf1tAEO7HkWvDw VtSGblB9KtOTJbwzpzeisjq LK8WZZt MHVjdS08Gy4ysNaxMd2kKDF wXIR5KAKnkFKbY4BwpB1eOb YsPAMpKHYfI5YolDSlONbuM 246IGxl NxI0CCOcuhWeN7HsXJMvmLc oPtK4e8Y3Rd8AnZmowAOrLU 0yVlJtDSm0J8SfPhp8XFAxp UasXS8n pELbMUjvBi2otOoblYciZW8 bNUHzpgcqm362KxAcz4nyVU ElmJXeDSbjKFP6Y13xd4M8G CMwMDAw DHO5cBW5sG8rmYuiazdqjTK mdDsgdmVydGljYWwtYWxpZ2 72HMXjbRswJfOFWyc5J6ThW vv8WZYg tPwzFM4bkAYmJHveEr0jdGy qzAshQN5gFHGadfdoy355Pf Tnn3owYYJadXUrRXcjSFV2U 58xm5Y3 SHIuMUErQSJ5uEB5kC9cgWr nbjogbGVmdDsgdmVydGljYW cqLIyhP064QQOfrVtnHt6YW rl3P1Lx Ard7XEDndAykWB9btYYgMVf cIp6hpBrwgRbnEF9wCPRcxs vtt180TfJun5eyLHTziMIdN GltZXM7 Z68bd9M0OJWhFNQrGWN6eXB 5uQ4xfDbbicoztVRquUvsnc RfySpgVSzvSMwbH085RWGbu DsnPlBh eWVyOjwvdGQ+NA44ck03T8B uQolzKvm0QWPoXNP3wEC2iI 4rJZBqXLahc0W1tQX2B4Ijr gJuow1v b2xs (more content not included)... Normal [facility] C Urineon 12-16-2022 Bacteria identified Cx Nom (U) Microbiology PROCEDURE: Urine Culture [R1] SOURCE: U Random BODY SITE: COLLECTED DATE/TIME: 12/14/2022 11:17 EST RECEIVED DATE/TIME: 12/14/2022 17:31 EST START DATE/TIME: 12/14/2022 17:31 EST FREE TEXT SOURCE: Blanca Arriaza Lannette A FINAL REPORTS Final Report [] Verified Date/Time: 12/16/2022 09:26 EST 1,000 cfu/ml Mixed skin contaminants Performing Locations R1: [facility] [address] [place] [address], [id number] , , [facility] Comment on above: Performed By: #### 2 [id number] ####[place] [address] Ambulatory Visit Summaryon 0 12-14-2022 Ambulatory Visit [...] Urothelial carcinoma of bladder Vaginal atrophy Normal [facility] Operative Reporton Operative Report [id number]#1.00C D:127 Normal [facility] Pathology Noteon 12-13-2022 Pathology Note [id number]#1.00C D:127 Normal [facility] CYTOLOGYon 12-07-2022 SENT TO REF LAB 12/07/2022 Normal [facility] Comment on above: Performed By: #### C YTO #### [facility] [address] [place] [address] Dr. Troy Jeter Insurance Correspondenceon 0 11-25-2022 Insurance Correspondence [id number]#1.00CD :127 Normal [facility] CBC AUTO DIFFon 11-23-2022 BASO # 0.1 103/ul Normal 0.0-0.1 [facility] Comment on above: Performed By: #### C BC #### [facility] [address] [place] [address] Dr. Troy Jeter Basophils/100 WBC (Bld) 1.0 % Normal 0.2-2.0 [facility] Comment on above: Performed By: #### C BC #### [facility] [address] [place] [address] Dr. Troy Jeter EO # 0.1 103/ul Normal 0.0-0.7 [facility] Comment on above: Performed By: #### C BC #### [facility] [address] [place] [address] Dr. Troy Jeter Eosinophils/100 WBC (Bld) 2.4 % Normal 0.9-7.0 [facility] Comment on above: Performed By: #### C BC #### [facility] [address] [place] [address] Dr. Troy Jeter Erythrocyte distribution width (RBC) [Ratio] 14.6 % Normal 11.0-15.0 [facility] Comment on above: Performed By: #### C BC #### [facility] [address] [place] [address] Dr. Troy Jeter Hematocrit (Bld) [Volume fraction] 37.7 % Normal 36.0-48.0 [facility] Comment on above: Performed By: #### C BC #### [facility] [address] [place] [address] Dr. Troy Jeter Hemoglobin (Bld) [Mass/Vol] 11.0 g/dL Critically low 12.0-16.0 [facility] Comment on above: Performed By: #### C BC #### [facility] [address] [place] [address] Dr. Troy Jeter IG # 0.02 10e3/ul Normal 0.00-0.03 [facility] Comment on above: Performed By: #### C BC #### [facility] [address] [place] [address] Dr. Troy Jeter IG % 0.4 % Normal 0.0-0.5 [facility] Comment on above: Performed By: #### C BC #### [facility] [address] [place] [address] Dr. Troy Jeter LYMPH # 1.3 103/ul Normal 1.2-3.[address] [facility] Comment on above: Performed By: #### C BC #### [facility] [address] [place] [address] Dr. Troy Jeter Lymphocytes/100 WBC (Bld) 25.5 % Normal 20.5-60.[address] [facility] Comment on above: Performed By: #### C BC #### [facility] [address] [place] [address] Dr. Troy Jeter MANUAL DIFF REQ NO Normal [facility] Comment on above: Performed By: #### C BC #### [facility] [address] [place] [address] Dr. Troy Jeter MCH (RBC) [Entitic mass] 25.9 pg Critically low 26.7-34.0 [facility] Comment on above: Performed By: #### C BC #### [facility] [address] [place] [address] Dr. Troy Jeter MCHC (RBC) [Mass/Vol] 29.2 g/dL Critically low 29.9-35.2 [facility] Comment on above: Performed By: #### C BC #### [facility] [address] [address] [address] Troy Jeter MCV (RBC) [Entitic vol] 88.7 fL Normal 81.0-99.0 [facility] Comment on above: Performed By: #### C BC #### [facility] [address] [place] [address] Dr. Troy Jeter MONO # 0.4 103/ul Normal 0.3-0.8 [facility] Comment on above: Performed By: #### C BC #### [facility] [address] [place] [address] Dr. Troy Jeter Monocytes/100 WBC (Bld) 8.6 % Normal 1.7-12.0 [facility] Comment on above: Performed By: #### C BC #### [facility] [address] [place] [address] Dr. Troy Jeter NEUT # 3.2 103/ul Normal 1.4-6.5 [facility] Comment on above: Performed By: #### C BC #### [facility] [address] [place] [address] Dr. Troy Jeter Neutrophils/100 WBC (Bld) 62.1 % Normal 43.0-75.[address] [facility] Comment on above: Performed By: #### C BC #### [facility] [address] [place] [address] Dr. Troy Jeter Platelet mean volume (Bld) [Entitic vol] 9.4 fL Critically low 9.5-13.[address] [facility] Comment on above: Performed By: #### C BC #### [facility] [address] [place] [address] Dr. Troy Jeter PLT 190 103/ul Normal 150-[address] [facility] Comment on above: Performed By: #### C BC #### [facility] [address] [place] [address] Dr. Troy Jeter RBC 4.25 106/ul Normal 4.20-5.40 [facility] Comment on above: Performed By: #### C BC #### [facility] [address] [place] [address] Dr. Troy Jeter WBC 5.1 103/ul Normal 4.0-11.0 [facility] Comment on above: Performed By: #### C BC #### [facility] [address] [place] [address] Dr. Troy Jeter PROF 14(COMP METB)on 023 Albumin [Mass/Vol] 3.4 g/dL Normal 3.4-5.0 [facility] Comment on above: Performed By: #### C BC #### [facility] [address] [place] [address] Dr. Troy Jeter Albumin/Globulin [Mass ratio] 0.9 {ratio} Normal [facility] Comment on above: Performed By: #### C BC #### [facility] [address] [place] [address] Dr. Troy Jeter ALP [Catalytic activity/Vol] 99 U/L Normal 46-[address] [facility] Comment on above: Performed By: #### C BC #### [facility] [address] [place] [address] Dr. Troy Jeter ALT [Catalytic activity/Vol] 67 U/L Critically high 14-[address] [facility] Comment on above: Performed By: #### C BC #### [facility] [address] [place] [address] Dr. Troy Jeter Anion gap [Moles/Vol] 12.8 mmol/L Normal [facility] Comment on above: Performed By: #### C BC #### [facility] [address] [place] [address] Dr. Troy Jeter AST [Catalytic activity/Vol] 54 U/L Critically high 15-37 [facility] Comment on above: Performed By: #### C BC #### [facility] [address] [address] [address] Troy Jeter Bilirubin [Mass/Vol] 0.4 mg/dL Normal 0.2-1.0 [facility] Comment on above: Performed By: #### C BC #### [facility] [address] [address] [address] Troy Jeter Calcium [Mass/Vol] 9.3 mg/dL Normal 8.5-10.1 [facility] Comment on above: Performed By: #### C BC #### [facility] [address] [address] [address] Troy Jeter Chloride [Moles/Vol] 106 mmol/L Normal 98-107 [facility] Comment on above: Performed By: #### C BC #### [facility] [address] [place] [address] Dr. Troy Jeter CO2 [Moles/Vol] 24.9 mmol/L Normal 21.0-32.0 [facility] Comment on above: Performed By: #### C BC #### [facility] [address] [place] [address] Dr. Troy Jeter Creatinine [Mass/Vol] 0.89 mg/dL Normal 0.55-1.02 [facility] Comment on above: Performed By: #### C BC #### [facility] [address] [place] [address] Dr. Troy Jeter EGFR-AF NAMIBIAN >60 Normal >=60 [facility] Comment on above: Performed By: #### C BC #### [facility] [address] [place] [address] Dr. Troy Jeter EGFR-NON AF NAMIBIAN >60 Normal >=60 [facility] Comment on above: Performed By: #### C BC #### [facility] [address] [place] [address] Dr. Troy Jeter Globulin (S) [Mass/Vol] 3.7 g/dL Normal [facility] Comment on above: Performed By: #### C BC #### [facility] [address] [address] [address] Troy Jeter Glucose [Mass/Vol] 125 mg/dL Critically high 74-106 [facility] Comment on above: Performed By: #### C BC #### [facility] [address] [address] [address] Troy Jeter Potassium [Moles/Vol] 3.7 mmol/L Normal 3.5-5.1 [facility] Comment on above: Performed By: #### C BC #### [facility] [address] [address] [address] Troy Jeter Protein [Mass/Vol] 7.1 g/dL Normal 6.4-8.2 [facility] Comment on above: Performed By: #### C BC #### [facility] [address] [address] [address] Troy Jeter Sodium [Moles/Vol] 140 mmol/L Normal 136-145 [facility] Comment on above: Performed By: #### C BC #### [facility] [address] [address] [address] Troy Jeter Urea nitrogen [Mass/Vol] 15.0 mg/dL Normal 7.0-18.0 [facility] Comment on above: Performed By: #### C BC #### [facility] [address] [address] [address] Troy Jeter Urea nitrogen/Creatinine [Mass ratio] 16.9 mg/mg Normal [facility] Comment on above: Performed By: #### C BC #### [facility] [address] [address] [address] Troy Jeter XR HAND RT MIN [...] by: JULISSA KAUFMAN Date: 2022-11-05 08:18 Normal [facility] Ambulatory Visit Summaryon 1 12-27-2021 Ambulatory Visit Summary DANIELLA BEJARANO :1960 Visit Date:10/26/2022 Ambulatory Visit Instructions Your Diagnosis Bladder cancer OAB (overactive bladder) History of UTI Vaginal atrophy Tests Performed Urnls Dip Stick Auto w/o Microscopy POC 61955 Your Care Team Attending Physician - AI [...] MITCHELL PA-C, ISAIAH When: Where: [address] [place] [address] Medications What How Much When Instructions Unchanged [...] Urnls Dip Stick Auto w/o Microscopy POC 71368 (10/26/2022) Bilirubin Urine Dipstick - Negative Blood Urine Dipstick - Negative Glucose Urine Dipstick - Negative Ketones Urine Dipstick - Negative Leukocytes Urine Dipstick - Negative Nitrite Urine Dipstick - Negative Protein Urine Dipstick - Negative Specific [place] Urine Dipstick - 1.020 Urine Appearance Urine [...] Urothelial carcinoma of bladder Vaginal atrophy Normal [facility] Urology Office/Clinic Noteon 10-26-2022 Urology Office/Clinic [...] Contact Information RUY VALLE, AI Alejandro, URL [address] [place] [address] Additional Instructions: F/U nov 2022 cysto/cyto Patient [...] Cigarettes, 10/12/2022 (more content not included)... Normal [facility] Comment on above: Result Comment: Elec [...] Urnls Dip Stick Auto w/o Microscopy POC 10611 Your Care Team Attending Physician - Reza [...] AI MITCHELL PA-C Where: [facility] [place] Normal [facility] Patient Educationon 10-19-20 Patient Education Oncology [...] Follow these instructions at home: ? Take dlaa-ipp-[id number] and prescription medicines only as told by [...] important. Where to find more information ? [employer] [employer]: www.cancer.org ? [employer] [place] (NCI): www.cancer.gov Contact a health care provider [...] 10/18/2004 Document Revised: 09/28/2018 Document Reviewed: 09/19/2017 [employer] Patient Education ? 2019 [employer]. Eric [facility] Urology Office/Clinic Noteon 10-19-2022 Urology [...] 10/19/2022 08:13:27. . Documentation recorded by the meghanibShaylee alejandro, accurately reflects the services(s) I performed [...] Brother. Immun (more content not included)... Normal [facility] Comment on above: Result Comment: Elec tronically Signed By: Dina Cobb MD\.br\Date and Time Signed: 10/19/22 08:20 EST\.br\Electronically Co-Signed By: Shaylee Bermudez.br\Date and Time Co-Signed: 10/19/22 08:13 EST Consent for Procedure/Surger yon 10-12-2022 Consent for Procedure/Surgery [id number] D:127 [facility] [facility] Patient Educationon 10-12-20 Patient Education Oncology Bladder Cancer Bladder cancer [...] Follow these instructions at home: ? Take mfhw-bbs-utfphhy and prescription medicines only as told by [...] important. Where to find more information ? [place] [employer]: www.cancer.org ? National Cancer [place] (NCI): www.cancer.gov Contact a health care provider [...] 10/18/2004 Document Revised: 09/28/2018 Document Reviewed: 09/19/2017 [employer] Patient Education ? 2019 Aditive. Eric [facility] Urology Office/Clinic Noteon 10-12-2022 Urology Office/Clinic [...] Follow-up With When Contact Information Reza JAMES, Dian Oconnell, URL, URO Within 1 week Additional [...] No qualifyi (more content not included)... Normal [facility] Comment on above: Result Comment: Elec tronically Signed By: Dina Cobb MD\.br\Date and Time Signed: 10/12/22 09:01 EST\.br\Electronically Co-Signed By: Paulina Valenzuela\.br\Date and Time Co-Signed: 10/12/22 08:44 EST Pathology Noteon 08-17-2022 Pathology Note [id number]#[id number] D:127 Normal [facility] Operative Reporton Operative Report [id number] D:127 Normal [facility] CYTOLOGYon 08-10-2022 SENT TO REF LAB 08/10/22 [facility] Comment on above: Performed By: #### C [facility] #### [facility] [address] [place] [address] Dr. Troy Jeter Lab Reportson 07-29-2022 Lab Reports [id number] D:127 Normal [facility] CULTURE URINEon 07-28-2022 CULTURE URINE Culture [...] F Tetracycline R F [facility] Comment on above: Performed By: #### C YTO #### [facility] [address] [place] [address] Dr. Troy Jeter Lab Reportson 07-27-2022 Lab Reports [id number] D:127 [facility] Lab Reports [id number] :127 [facility] C Urineon 07-08-2022 Bacteria identified [...] Locations R1: This test was performed at: [facility], [address] [place] [address], [address] , , [facility] Comment on above: Performed By: #### 2 [id number] ####[place] [address] Coding Summary.on 07-08-2022 Coding Summary. CD:[id number] Gh0 bWw+PGhlYWQ+IW6RGHNcV94 piBMsoS3CP5mYTQ5SYMAWTR YCDE2XEH1zqAH5JSqiF9Lan iAv EufgiRSrQS40QCj5CYB5mOm gTOgouJ6vyZXuC6a5CnWlYG 71nZ94UEfgQDAaNqC0InYcn jsgbWFy P6bbIjJljXIdCxa+PHRhYmx lIHdpZHRoPScxMDAlJyBzdH cqGE1qJy7oBWKiGODatEtxt HNlOiBj h1caBIZwMMpoNQ7hfBrgL0C tnOU1VIJkt8p8Jz29nIT+PH UyXHW4tKcrJJqtn893HkAyk 0hnWPB6 aDFaKThaZWT4L29wn0E9HXZ rTWYcTVD3uPL0iU9hrHgtwk raK7NyoXScMqY8KWL8jAQbo C1lzOej qkejlS2oDor+T53OMX8RXQW JDJ6ZKdz1U9DrEmdsqQE+PC 98VJRvMS95kCUwhAHet7dmo Vr7BqSo LUEfKRD2xHqyNGecz7InDAW eA56ntOQnw8T2QOElfVhphA EyQeDxkSI8lQ0rODfpvpbsw 2hvdzsn Jgbdy5moll25uD13B40fRPl eAANrTXK2KXKqHMLjkJprnj 5ndU2bYr0+BZuuy3mvi9pgq Rd7TzIl MOQjeqPhfUjmJKZ8a7LxTp7 9P4FxuDlsv1SzBem4ik47eS Viu1B2kAD6PYstNUXvkI6tI WxlZnQ6 VKInAwZxiC61eGWbTUiqBl2 qnXvnpLnbCU2hLJMjhpmsCB CjaD1qCTNypLRwnTfuUO8fA TBpbjtm g159LxYfNRQ0VELcmYVeE8T cyS4wHjJtRFKvZKXlC2SzhL AnLIfcF406BBgbSaV8TESqo rQkJ5Gs NRXbuGsmHkW8q3P8Un6Jg7T vfvbbZLH3GCraXDR0JmL9Wl BcSaA2I2QrPmi0SUTekNgdO V0yO8Vs ZEXylnjmqugmbBF8ZHDoSDW fiW11yHSlGCoxEx5dj5P6q9 87JVGxEFAeuF57Ny2onJlyI TBwdCBU wE9uuoyne6guuqpnOjLeWDJ wRJw5OQn8QFIppOltKzLfQR I6ErN6VII2rDWgtL1sxJdlk cehbP1p Oyc+Y90goY2dWTJ5ROS9okl xDAGkpiWePQ63LI63O9OvWu wvdGFibGU+PGRpdiBzdHlsZ P7sXjOj h2bya0TmBInqJ4KjAWFtRNt bLmu8PEStOKP1tDY9nO1cFH WdXHqct5O6zYD2U0VnukCmt s7eq7ba CWCkVVkoN89pgSWed6U2SQR ylPG8YNDujTfySiRozM60Ou c+RTXzhNdgh9ZyNrsra5sbn 6bhqXv1 OkQbHAUfzrNmdCvlXAI3x2U mDh82B76rAHodPJZwJJMuQR CzNQHilPndyn7mkY0wAc6+P GNvbCB3 uOI1fM3fQZGlBrB0YSfvX92 2GlZbqGZzBctzs2ykk0pyaN y1FoAeCEKojqWjoCabYSA0i 5XdMu28 O97hOGsgAXExIJWvQRMsTLT ntWvbrf0wdZ2dIo4+PC9jb2 vwhy09mZ39nSL+XGBwAYV0b WxlPSdw GACtvN4mOJbvMoI0EJFvUnG nuX04uNZlAYuaEb9prFejhR xrGG5wIQJgcixqq423QaZpf 2xkIDEw tQXuFYxzAOQ3Y57hj9N3VZR bAQXlJFC9pYO8cL0kgHgriu ogbGVmdDsgdmVydGljYWwtY CzyL990 IHRvcDsnPlBhdGllbnQgTmF pRXx5G9UpYsb9NNVcrMivFG 2gfHNaDXrfWi6dhEhlzWyrF J9nTPNr hnfye517RrHma1hkFABfkWB bXAmdVWZ3K78xd8R5PDRrUK OzQCA8fKB9sD5nlRfjqnttt GVmdDsg zyAgbVkmUQqmQYthE946GUL oqXzdLiVstoTsDPMrkRY9RN 17NJ80yHVwo6G1gEI6E8EzZ GRpbmct ivrvgTW1XDQuDGSjjL99Th8 qjRczAc5dPDOwVEP7BMDdvT QkJ6CngT2aJqMdTRVyPBXzU 3RleHQt GScmU158SRxqHgE7AZRezpU cN2HzVOSnzAigRpF1t2L0Fv 0KF1I7WO60UW25qOYww7K9k YD0M0Vu MZZqjycnyifrhWO4APNnHEY coA28Dk8owLhbYt1bEZNkPS M4BVUdjPQnL2JygV6oVrHdG DAwMDAw L4CkaHOdXYcbJ158MFtpXbL 3KWMoqwTsU0LcYDMpjXddVl S6d8Z2Ad8TDUm9PB17PA17a MEpa8G8 mQF5B3PbSXWnupyizelmmHV 4OJJkWQQavC46Yu8uxYtdOd 9pOTHxMBV4ITWsrBTmH1Jfo A9oCsGz AARdRKUeO1NqnTZeRPzqY38 1DCznLiW0LIMmztOvG2BsYR YayRuqJkM4t5Y0Xx5GORWnR R54YRR6 qHE0VE07FB23F6NrLstlpPR ibGU+PHRhYmxlIHdpZHRoPS agHPDnClErmMiuPG9tBl1aU GVyLWNv oJezuHLgQtIgx6gtQMCvZGe oZD6zeXzuJ4GugIJ2UZXdp7 t9Zn20U73qS2YcfEX+PGNvb RI7xSY2 gC8kTlSwJbC8JIjzD981MtG uaEOmZakhj5xqh5yzfDr6Oe G1UPPumqZftEhoVUV7y6WwJ a62J51k IHdpZHRoPSIxNSUiIHZhbGl ysa0jiU5wFw4+HLDzuUN9cL A5aE6oLnIgQvX9KTcdU331B nRvcCIv Taomk4oll9aokOv7XzTmCWN cdrBpiHmbCFO0g2RvOo66S2 FaoQgyx3ViUrt6kw47mBMob 1C0gBS3 B1RbJFTulgoccJXitWssYP7 uOZMmwlwbFXAaoV6dUPCqF7 l4ZlWxYhR5ZKapF1PjtmB9V DEwcHQg XXqxIPN0G95wf7K6ZKUxNRB xFUB6mFE1yX8kbYlttyervG VmdDsgdmVydGljYWwtYWxpZ 246IHRv sYrdUVNzmR5rIBGkaIYcjNa eRT3wAJGbmlamGk7GSOxIBe vtTDUPNzfWMiSJSD71OM92d GAtv6O7 eSL4G0ShNFWpwkbkfynvxZL 0GKIxVVGkqL87mXOcWMmxEk 1da5P9q787STQpALUsiP84M t7hdYdd TQAfrPUFhC5ohjipi0jbvgy kDrVnNPQoCCi6MMm2GAWlqE puVxNkNPF5YvP4JMP0zBVkc M9grAus hgqgvW0zAko+MDgvMjIvMTk 1ODwvdGQ+GQMpMZU2hJqyGY xgHJQejL8wAVBxI7h2ZjMyD dC7VQdl B4HzFHFkzfhlLx71xT9hCjP eQfM9VOwgA3VysaT3PPTkcD JsZKxiGLC4L71fc7Z0EECdH DAwMDA7 kDH8gS1jiSihzvufoJIjyTa nwbXnxQamRVvtIKbjB010LK BzgYxqCdN2WKjvNKAwPZ84A F74vJXo u0I0lLH9J1QhJDSspxzkkke ubDG6WYXlEMNquU62kYYcDX ygFv6ew0D6f229PQBaCSSgq J40Fy8x zUrpHIKhhFVPrJ0dopqjk7e kqrskStLaLGYmASu0PDe6AU HkcIkzEhWsAHD3YzX1GFT9o ICboQ2q qFvljiunwQ3lUwt+RmVtYWx fEM48HH81zVGnd5Y7mXN9P2 KrUIFdjhnzesfunWK9QOJlP DUwaW47 fPGgNQpeQr9eb8B8r902DWY cCWEivL54Hj0ahGncIBGdzY YZvR7mjwqpo9hepeoxQbXjI DAwMDt0 UHo8YULmhQhaCbAsLVY8HyL 0JSX9sEXisR7oiXneheoywW 9wOyc+NPYiMUYlq7Fbe7ZyJ Y30WP36 V0SsRiiexXHoaWG+PHRhYmx lIHdpZHRoPScxMDAlJyBzdH koTK8sVd9pFJSxUUTujKzaw HNlOiBj z8ivBIQpTBxrYG6mrGvvV2C jtKD1RAUcm3s8Nw13R37qZ4 JvdXA+RVUduLU3uZK6xC2rE zAlIiB2 PJrfV009NpGbkLBnQbunn9o qd7xsnCv0ChSsGYBviwCjyV xeNPZ4s1PtSs80B19sWDxaG HRoPSIy SFYkXBNneEwqgd9qoM1oGw3 +TMOzvZX4vNK9qD4uMcQxFy F6MXciQ311HhNpfLCsAmqiC 41qT6Ei dXA+GQEfQwv5RTMwpXukAD8 ksJWkUTdoZo4rPVQ4PoTuOc QwWZkuW7NnMMJhalzvvpgoy VM2KJBu RNCfqK43Kp0tkZtjEi1kWSU iKVO1NJItbKUxL4DchT3dOv WtKKBhNJUqK3UlaSQoEJyxR 246IGxl PbZ7KCWawxAsV9ZlEHHjdOm bJiX3g7L2Nj4DyIgflRJqOZ 7jVmStOAf8M6JkQys8RHVxl VcyWG8h wNSjWXibGr2mbCarlZbiSG3 uTFRdhnddp232RmMxv4qeAV VwjZGnLOgfQJR2C31fh3D7T CMwMDAw SOK5fGM7rE0nuUxozvjcaXB mdDsgdmVydGljYWwtYWxpZ2 91VPDofSnxHhYBMyr6O0EgA bn9NUBa fLmwWB2yhVZgGOqnLj4ciFr xgBtfYR1kXFHtjdjyu100Lh Jec0wlIOSyqQCkNLiuVOA7C 52bn6A4 KHBcFXMrKLT9dMA4gV5yaVj nbjogbGVmdDsgdmVydGljYW izMXeiG449FWPivWnwEk6QP xa0A6Ke Axx7BNAfvCznCL6aiBUmOXs oBw7tzGryaQwqTN9aXMKriw mun229KnBlc2sqVYQfiEKqA GltZXM7 Q25tu8I5AXAvZQOhXIQ9jYN 3qR9aaErjeqhfsENdfJgbao EurZyxUIokGVqrY594YGLnq DsnPlBh eWVyOjwvdGQ+PY97ml16F2Q qXsplPqg4CIReNDZ5jTA8xT 7xFFIdSOhdu1L3zLV1G6Bdr pBepu6s b2xs (more content not included)... Normal [facility] Ambulatory Visit Summaryon 0 07-06-2022 Ambulatory Visit Summary DANIELLA BEJARANO :1960 Visit Date:07/06/2022 Ambulatory Visit Instructions Your Diagnosis Bladder cancer OAB (overactive bladder) History of UTI Vaginal atrophy Tests Performed Urnls Dip Stick Auto w/o Microscopy POC 49926 Your Care Team Attending Physician - Reza JAMES, Dina Oconnell Primary Care Physician - FRANCISCO JAMES, BAYRON This Is Your Medications List estradiol topical [...] Urnls Dip Stick Auto w/o Microscopy POC 06686 (07/06/2022) Bilirubin Urine Dipstick - Negative Blood Urine Dipstick - Trace-intact Glucose Urine Dipstick - Negative Ketones Urine Dipstick - Negative Leukocytes Urine Dipstick - 2+ Moderate Nitrite Urine Dipstick - Positive Protein Urine Dipstick - Negative Specific [place] Urine Dipstick - 1.025 Urine Appearance Urine Dipstick - Cloudy Urine Color Urine Dipstick - Yellow Urobilinogen Urine Dipstick - Normal 0.2-1 EU/dl pH Urine Dipstick - 5.5 Medications and Immunizations Administered Given [place] BCG Live (for intravesical use), 50 mg, [...] paint. ? (more content not included)... Normal [facility] Patient Educationon 09-07-20 22 Patient Education Oncology Bladder Cancer Bladder [...] Follow these instructions at home: ? Take kjwq-kvi-jzuejwp and prescription medicines only as told by [...] important. Where to find more information ? [place] [employer]: www.cancer.org ? National Cancer [place] (NCI): www.cancer.gov Contact a health care provider [...] 10/18/2004 Document Revised: 09/28/2018 Document Reviewed: 09/19/2017 [employer] Patient Education ? 2019 [employer]itive. Normal [facility] Urology Office/Clinic Noteon 07-06-2022 Urology Office/Clinic [...] Daily Protonix 40 mg Tab-DR, Oral, BID [place] BCG Live (for intravesical use), 50 mg, IntraVesical, Once Vesicare 10 mg Tab, 10 mg= 1 tab(s), Oral, Daily, 3 refills Vitamin D, Oral, qWeek Allergies Percocet (Headache) Social History Alcohol - Denies Alcohol Use, 07/07/2021 Tobacco Former smoker, quit more than 30 days ago To (more content not included)... Normal [facility] Comment on above: Result Comment: Elec tronically Signed By: Dina Cobb MD\.br\Date and Time Signed: 07/06/22 11:31 EDT\.br\Electronically Co-Signed By: Pratibha Rodriguez\.br\Date and Time Co-Signed: 07/06/22 10:33 EDT\.br\Electronically Co-Signed By: Pratibha Rodriguez\.br\Date and Time Co-Signed: 07/06/22 10:34 EDT BUNon 07-01-2022 Urea nitrogen [Mass/Vol] 14.0 mg/dL Normal 7.0-18.0 [facility] Comment on above: Performed By: #### C YTO #### [facility] [address] [address] [address] Troy Jeter CREATININEon 07-01-2022 Creatinine [Mass/Vol] 1.04 mg/dL Critically high 0.55-1.02 [facility] Comment on above: Performed By: #### C YTO #### [facility] [address] [address] [address] Troy Jeter EGFR-AF NAMIBIAN >60 Normal >=60 [facility] Comment on above: Performed By: #### C YTO #### [facility] [address] [address] [address] Troy Jeter EGFR-NON AF NAMIBIAN 53 mL/min/1.73m2 Critically low >=60 [facility] Comment on above: Performed By: #### C YTO #### [facility] [address] [address] [address] ABD/PELV WO W [...] SPARKLE RODRIGUEZ Date: 2022-07-01 11:40 Normal [facility] Ambulatory Visit Summaryon 0 06-29-2022 Ambulatory Visit Summary DANIELLA BEJARANO Chris :1960 Visit Date:06/29/2022 Ambulatory Visit Instructions Your Diagnosis Bladder cancer OAB (overactive bladder) History of UTI Vaginal atrophy Tests Performed Urnls Dip Stick Auto w/o Microscopy POC 30504 Your Care Team Attending Physician - Reza JAMES, Dina Oconnell Primary Care Physician - FRANCISCO JAMES, BAYRON This Is Your Medications List Contact prescribing [...] JAMES, Dina Oconnell Where: [facility] Patient Educationon 06-29-20 22 Patient Education Oncology Bladder Cancer Bladder [...] Follow these instructions at home: ? Take xqym-gjv-bopbmrb and prescription medicines only as told by [...] important. Where to find more information ? [place] [employer]: www.cancer.org ? National Cancer [place] (NCI): www.cancer.gov Contact a health care provider [...] 10/18/2004 Document Revised: 09/28/2018 Document Reviewed: 09/19/2017 [employer] Patient Education ? 2019 Aditive. [facility] Urology Office/Clinic Noteon 06-29-2022 Urology [...] When Contact Information Reza JAMES, Dina Oconnell, ISAIAH, URO In 1 week Additional Instructions: BCG #3 Patient Education Bladder Cancer I, Valarie Rios , personally scribed for Dr. Cobb on 06/29/2022 08:07:46. . Documentation recorded by the scribe, Valarie Rios, accurately reflects the services(s) I performed and decisions made by me. Authenticated by Dr. Lue on 06/29/2022 08:14:18. Problem List/Past Medical History [...] Immunizations Vacc (more content not included)... Normal [facility] Comment on above: Result Comment: Elec [...] by: FRANNY ZEE Date: 2022-05-26 13:26 Normal [facility] PROTIMEon 05-04-2022 INR Coag (PPP) [Relative time] 1.00 {INR} Normal [facility] Comment on above: Performed By: #### C YTO #### [facility] [address] [place] [address] Dr. Troy Jeter INR GUIDELINES SEE BELOW Normal [facility] Comment on above: Result Comment: LORENA RED INR: 2.0 - 3.0 CONDITIONS NOT LISTED BELOW 2.5 - 3.5 FOR PROSTHETIC HEART VALVE REPLACEMENT 2.5 - 3.5 RECURRENT THROMBOSIS Performed By: #### C YTO #### [facility] [address] [place] [address] Dr. Troy Jeter PT Coag (PPP) [Time] 10.8 s Normal 9.0-11.[address] [facility] Comment on above: Performed By: #### C YTO #### [facility] [address] [place] [address] Dr. Troy Jeter PTTon 05-04-2022 aPTT Coag (Bld) [Time] 24.5 s Normal 22.3-36.2 [facility] Comment on above: Performed By: #### C YTO #### [facility] [address] [place] [address] Dr. Troy Jeter CYTOLOGYon 04-27-2022 SENT TO REF LAB 04/28/22 Normal [facility] Comment on above: Performed By: #### C YTO #### [facility] [address] [place] [address] Dr. Troy Jeter MG MAMM SCREEN LT 3D CADon 0 04-11-2022 MG MAMM SCREEN LT 3D CAD Patient: DANIELLA BEJARANO Exam Date: 04/11/2022 : 1960 Gender:F Ordering : DR BAYRON SINGH . Admission #: [id number] Family : Order #: [id number] CLICK HERE TO VIEW EXAM RADIOLOGY REPORT [...] age 68. LOCATION: [facility] BREAST COMPOSITION: Scattered areas fibroglandular density. FINDINGS: [...] at 13:44 Normal [address] [facility] CBC AUTO DIFFon 03-31-2022 BASO # 0.0 103/ul Normal 0.0-0.1 [facility] Comment on above: Performed By: #### C BC #### [facility] [address] [address] [address] Troy Jeter Basophils/100 WBC (Bld) 0.0 % Critically low 0.2-2.[address] [facility] Comment on above: Performed By: #### C BC #### [facility] [address] [address] [address] Troy Jeter EO # 0.1 103/ul Normal 0.0-0.7 [facility] Comment on above: Performed By: #### C BC #### [facility] [address] [place] [address] Dr. Troy Jeter Eosinophils/100 WBC (Bld) 2.1 % Normal 0.9-7.0 [facility] Comment on above: Performed By: #### C BC #### [facility] [address] [place] [address] Dr. Troy Jeter Erythrocyte distribution width (RBC) [Ratio] 14.3 % Normal 11.0-15.0 [facility] Comment on above: Performed By: #### C BC #### [facility] [address] [place] [address] Dr. Troy Jeter Hematocrit (Bld) [Volume fraction] 31.8 % Critically low 36.0-48.0 [facility] Comment on above: Performed By: #### C BC #### [facility] [address] [place] [address] Dr. rToy Jeter Hemoglobin (Bld) [Mass/Vol] 9.7 g/dL Critically low 12.0-16.0 [facility] Comment on above: Performed By: #### C BC #### [facility] [address] [place] [address] Dr. Troy Jeter IG # 0.01 10e3/ul Normal 0.00-0.03 [facility] Comment on above: Performed By: #### C BC #### [facility] [address] [place] [address] Dr. Troy Jeter IG % 0.3 % Normal 0.0-0.[address] [facility] Comment on above: Performed By: #### C BC #### [facility] [address] [place] [address] Dr. Troy Jeter LYMPH # 0.7 103/ul Critically low 1.2-3.8 [facility] Comment on above: Performed By: #### C BC #### [facility] [address] [place] [address] Dr. Troy Jeter Lymphocytes/100 WBC (Bld) 25.3 % Normal 20.5-60.0 [facility] Comment on above: Performed By: #### C BC #### [facility] [address] [place] [address] Dr. Troy Jeter MANUAL DIFF REQ NO Normal [facility] Comment on above: Performed By: #### C BC #### [facility] [address] [place] [address] Dr. Troy Jeter MCH (RBC) [Entitic mass] 26.9 pg Normal 26.7-34.[address] [facility] Comment on above: Performed By: #### C BC #### [facility] [address] [place] [address] Dr. Troy Jeter MCHC (RBC) [Mass/Vol] 30.5 g/dL Normal 29.9-35.[address] [facility] Comment on above: Performed By: #### C BC #### [facility] [address] [place] [address] Dr. Troy Jeter MCV (RBC) [Entitic vol] 88.1 fL Normal 81.0-99.0 [facility] Comment on above: Performed By: #### C BC #### [facility] [address] [place] [address] Dr. Troy Jeter MONO # 0.4 103/ul Normal 0.3-0.[address] [facility] Comment on above: Performed By: #### C BC #### [facility] [address] [place] [address] Dr. Troy Jeter Monocytes/100 WBC (Bld) 14.2 % Critically high 1.7-12.[address] [facility] Comment on above: Performed By: #### C BC #### [facility] [address] [place] [address] Dr. Troy Jeter NEUT # 1.7 103/ul Normal 1.4-6.[address] [facility] Comment on above: Performed By: #### C BC #### [facility] [address] [place] [address] Dr. Troy Jeter Neutrophils/100 WBC (Bld) 58.1 % Normal 43.0-75.[address] [facility] Comment on above: Performed By: #### C BC #### [facility] [address] [address] [address] Troy Jeter Platelet mean volume (Bld) [Entitic vol] 9.3 fL Critically low 9.5-13.5 [facility] Comment on above: Performed By: #### C BC #### [facility] [address] [address] [address] Troy Jeter PLT 134 103/ul Critically low 150-450 [facility] Comment on above: Performed By: #### C BC #### [facility] [address] [place] [address] Dr. Troy Jeter RBC 3.61 106/ul Critically low 4.20-5.40 [facility] Comment on above: Performed By: #### C BC #### [facility] [address] [place] [address] Dr. Troy Jeter WBC 2.9 103/ul Critically low 4.0-11.0 [facility] Comment on above: Performed By: #### C BC #### [facility] [address] [place] [address] Dr. Troy Jeter PROF 14(COMP METB)on 022 Albumin [Mass/Vol] 2.7 g/dL Critically low 3.4-5.0 [facility] Comment on above: Performed By: #### C MP #### [facility] [address] [place] [address] Dr. Troy Jeetr Albumin/Globulin [Mass ratio] 0.9 {ratio} Normal [facility] Comment on above: Performed By: #### C MP #### [facility] [address] [place] [address] Dr. Troy Jeter ALP [Catalytic activity/Vol] 51 U/L Normal 46-116 [facility] Comment on above: Performed By: #### C MP #### [facility] [address] [place] [address] Dr. Troy Jeter ALT [Catalytic activity/Vol] 57 U/L Normal 14-59 [facility] Comment on above: Performed By: #### C MP #### [facility] [address] [place] [address] Dr. Troy Jeter Anion gap [Moles/Vol] 16.1 mmol/L Normal [facility] Comment on above: Performed By: #### C MP #### [facility] [address] [address] [address] Troy Jeter AST [Catalytic activity/Vol] 69 U/L Critically high 15-37 [facility] Comment on above: Performed By: #### C MP #### [facility] [address] [address] [address] Troy Jeter Bilirubin [Mass/Vol] 0.2 mg/dL Normal 0.2-1.0 [facility] Comment on above: Performed By: #### C MP #### [facility] [address] [address] [address] Troy Jeter Calcium [Mass/Vol] 8.1 mg/dL Critically low 8.5-10.1 [facility] Comment on above: Performed By: #### C MP #### [facility] [address] [address] [address] Troy Jeter Chloride [Moles/Vol] 112 mmol/L Critically high 98-107 [facility] Comment on above: Performed By: #### C MP #### [facility] [address] [address] [address] Troy Jeter CO2 [Moles/Vol] 18.3 mmol/L Critically low 21.0-32.0 [facility] Comment on above: Performed By: #### C MP #### [facility] [address] [address] [address] Troy Jeter Creatinine [Mass/Vol] 0.89 mg/dL Normal 0.55-1.02 [facility] Comment on above: Performed By: #### C MP #### [facility] [address] [address] [address] Troy Jeter EGFR-AF NAMIBIAN >60 Normal >=60 [facility] Comment on above: Performed By: #### C MP #### [facility] [address] [address] [address] Troy Jeter EGFR-NON AF NAMIBIAN >60 Normal >=60 [facility] Comment on above: Performed By: #### C MP #### [facility] [address] [address] [address] Troy Jeter Globulin (S) [Mass/Vol] 3.0 g/dL Normal [facility] Comment on above: Performed By: #### C MP #### [facility] [address] [address] [address] Troy Jeter Glucose [Mass/Vol] 80 mg/dL Normal 74-106 [facility] Comment on above: Performed By: #### C MP #### [facility] [address] [address] [address] Troy Jeter Potassium [Moles/Vol] 3.4 mmol/L Critically low 3.5-5.1 [facility] [facility] Comment on above: Performed By: #### C MP #### [facility] [address] [address] [address] Troy Jeter Protein [Mass/Vol] 5.7 g/dL Critically low 6.4-8.2 [facility] Comment on above: Performed By: #### C MP #### [facility] [address] [address] [address] Troy Jeter Sodium [Moles/Vol] 143 mmol/L Normal 136-145 [facility] Comment on above: Performed By: #### C MP #### [facility] [address] [address] [address] Troy Jeter Urea nitrogen [Mass/Vol] 11.0 mg/dL Normal 7.0-18.0 [facility] Comment on above: Performed By: #### C MP #### [facility] [address] [address] [address] Troy Jeter Urea nitrogen/Creatinine [Mass ratio] 12.4 mg/mg Normal [facility] Comment on above: Performed By: #### C MP #### [facility] [address] [place] [address] Dr. Troy Jeter CBC AUTO DIFFon 03-30-2022 BASO # 0.0 103/ul Normal 0.0-0.1 [facility] Comment on above: Performed By: #### C BC #### [facility] [address] [address] [address] Troy Jeter Basophils/100 WBC (Bld) 0.3 % Normal 0.2-2.0 [facility] Comment on above: Performed By: #### C BC #### [facility] [address] [place] [address] Dr. Troy Jeter EO # 0.0 103/ul Normal 0.0-0.7 [facility] Comment on above: Performed By: #### C BC #### [facility] [address] [place] [address] Dr. Troy Jeter Eosinophils/100 WBC (Bld) 1.2 % Normal 0.9-7.0 [facility] Comment on above: Performed By: #### C BC #### [facility] [address] [place] [address] Dr. Troy Jeter Erythrocyte distribution width (RBC) [Ratio] 14.1 % Normal 11.0-15.0 [facility] Comment on above: Performed By: #### C BC #### [facility] [address] [place] [address] Dr. Troy Jeter Hematocrit (Bld) [Volume fraction] 32.5 % Critically low 36.0-48.0 [facility] Comment on above: Performed By: #### C BC #### [facility] [address] [place] [address] Dr. Troy Jeter Hemoglobin (Bld) [Mass/Vol] 9.8 g/dL Critically low 12.0-16.0 [facility] Comment on above: Performed By: #### C BC #### [facility] [address] [place] [address] Dr. Troy Jeter IG # 0.01 10e3/ul Normal 0.00-0.03 [facility] Comment on above: Performed By: #### C BC #### [facility] [address] [place] [address] Dr. Troy Jeter IG % 0.3 % Normal 0.0-0.5 [facility] Comment on above: Performed By: #### C BC #### [facility] [address] [address] [address] Troy Jeter LYMPH # 0.6 103/ul Critically low 1.2-3.8 [facility] Comment on above: Performed By: #### C BC #### [facility] [address] [address] [address] Troy Jeter Lymphocytes/100 WBC (Bld) 18.4 % Critically low 20.5-60.0 [facility] Comment on above: Performed By: #### C BC #### [facility] [address] [place] [address] Dr. Troy Jeter MANUAL DIFF REQ NO Normal [facility] Comment on above: Performed By: #### C BC #### [facility] [address] [place] [address] Dr. Troy Jeter MCH (RBC) [Entitic mass] 27.0 pg Normal 26.7-34.0 [facility] Comment on above: Performed By: #### C BC #### [facility] [address] [place] [address] Dr. Troy Jeter MCHC (RBC) [Mass/Vol] 30.2 g/dL Normal 29.9-35.2 [facility] Comment on above: Performed By: #### C BC #### [facility] [address] [place] [address] Dr. Troy Jeter MCV (RBC) [Entitic vol] 89.5 fL Normal 81.0-99.0 [facility] Comment on above: Performed By: #### C BC #### [facility] [address] [place] [address] Dr. Troy Jeter MONO # 0.4 103/ul Normal 0.3-0.8 [facility] Comment on above: Performed By: #### C BC #### [facility] [address] [place] [address] Dr. Troy Jeter Monocytes/100 WBC (Bld) 12.7 % Critically high 1.7-12.0 [facility] Comment on above: Performed By: #### C BC #### [facility] [address] [address] [address] Troy Jeter NEUT # 2.2 103/ul Normal 1.4-6.5 [facility] Comment on above: Performed By: #### C BC #### [facility] [address] [address] [address] Troy Jeter Neutrophils/100 WBC (Bld) 67.1 % Normal 43.0-75.0 [facility] Comment on above: Performed By: #### C BC #### [facility] [address] [address] [address] Troy Jeter Platelet mean volume (Bld) [Entitic vol] 9.7 fL Normal 9.5-13.5 [facility] Comment on above: Performed By: #### C BC #### [facility] [address] [address] [address] Troy Jeter PLT 140 103/ul Critically low 150-450 [facility] Comment on above: Performed By: #### C BC #### [facility] [address] [place] [address] Dr. Troy Jeter RBC 3.63 106/ul Critically low 4.20-5.40 [facility] Comment on above: Performed By: #### C BC #### [facility] [address] [address] [address] Troy Jeter WBC 3.3 103/ul Critically low 4.0-11.0 [facility] Comment on above: Performed By: #### C BC #### [facility] [address] [address] [address] Troy Jeter PROF 14(COMP METB)on 022 Albumin [Mass/Vol] 2.8 g/dL Critically low 3.4-5.0 [facility] Comment on above: Performed By: #### C BC #### [facility] [address] [place] [address] Dr. Troy Jeter Albumin/Globulin [Mass ratio] 0.9 {ratio} Normal [facility] Comment on above: Performed By: #### C BC #### [facility] [address] [address] [address] Troy Jeter ALP [Catalytic activity/Vol] 50 U/L Normal 46-116 [facility] Comment on above: Performed By: #### C BC #### [facility] [address] [address] [address] Troy Jeter ALT [Catalytic activity/Vol] 58 U/L Normal 14-59 [facility] Comment on above: Performed By: #### C BC #### [facility] [address] [address] [address] Troy Jeter Anion gap [Moles/Vol] 17.3 mmol/L Normal [facility] Comment on above: Performed By: #### C BC #### [facility] [address] [place] [address] Dr. Troy Jeter AST [Catalytic activity/Vol] 78 U/L Critically high 15-37 [facility] Comment on above: Performed By: #### C BC #### [facility] [address] [place] [address] Dr. Troy Jeter Bilirubin [Mass/Vol] 0.2 mg/dL Normal 0.2-1.0 [facility] Comment on above: Performed By: #### C BC #### [facility] [address] [place] [address] Dr. Troy Jeter Calcium [Mass/Vol] 8.0 mg/dL Critically low 8.5-10.1 Th [facility] Comment on above: Performed By: #### C BC #### [facility] [address] [place] [address] Dr. Troy Jeter Chloride [Moles/Vol] 112 mmol/L Critically high 98-107 [facility] Comment on above: Performed By: #### C BC #### [facility] [address] [place] [address] Dr. Troy Jeter CO2 [Moles/Vol] 17.0 mmol/L Critically low 21.0-32.0 [facility] Comment on above: Performed By: #### C BC #### [facility] [address] [place] [address] Dr. Troy Jeter Creatinine [Mass/Vol] 0.93 mg/dL Normal 0.55-1.02 [facility] Comment on above: Performed By: #### C BC #### [facility] [address] [place] [address] Dr. Troy Jeter EGFR-AF NAMIBIAN >60 Normal >=60 [facility] Comment on above: Performed By: #### C BC #### [facility] [address] [place] [address] Dr. Troy Jeter EGFR-NON AF NAMIBIAN >60 Normal >=60 [facility] Comment on above: Performed By: #### C BC #### [facility] [address] [place] [address] Dr. Troy Jeter Globulin (S) [Mass/Vol] 3.1 g/dL Normal [facility] Comment on above: Performed By: #### C BC #### [facility] [address] [place] [address] Dr. Troy Jeter Glucose [Mass/Vol] 77 mg/dL Normal 74-106 [facility] Comment on above: Performed By: #### C BC #### [facility] [address] [place] [address] Dr. Troy Jeter Potassium [Moles/Vol] 3.3 mmol/L Critically low 3.5-5.1 [facility] Comment on above: Performed By: #### C BC #### [facility] [address] [place] [address] Dr. Troy Jeter Protein [Mass/Vol] 5.9 g/dL Critically low 6.4-8.2 Th [facility] Comment on above: Performed By: #### C BC #### [facility] [address] [place] [address] Dr. Troy Jeter Sodium [Moles/Vol] 143 mmol/L Normal 136-145 [facility] Comment on above: Performed By: #### C BC #### [facility] [address] [place] [address] Dr. Troy Jeter Urea nitrogen [Mass/Vol] 12.0 mg/dL Normal 7.0-18.0 [facility] Comment on above: Performed By: #### C BC #### [facility] [address] [place] [address] Dr. Troy Jeter Urea nitrogen/Creatinine [Mass ratio] 12.9 mg/mg Normal [facility] Comment on above: Performed By: #### C BC #### [facility] [address] [place] [address] Dr. Troy Jeter CBC AUTO DIFFon 03-29-2022 BASO # 0.0 103/ul Normal 0.0-0.1 [facility] Comment on above: Performed By: #### C YTO #### [facility] [address] [place] [address] Dr. Troy Jeter Basophils/100 WBC (Bld) 0.2 % Normal 0.2-2.0 [facility] Comment on above: Performed By: #### C YTO #### [facility] [address] [place] [address] Dr. Troy Jeter EO # 0.0 103/ul Normal 0.0-0.7 [facility] Comment on above: Performed By: #### C YTO #### [facility] [address] [place] [address] Dr. Troy Jeter Eosinophils/100 WBC (Bld) 0.2 % Critically low 0.9-7.0 [facility] Comment on above: Performed By: #### C YTO #### [facility] [address] [place] [address] Dr. Troy Jeter Erythrocyte distribution width (RBC) [Ratio] 14.0 % Normal 11.0-15.0 [facility] Comment on above: Performed By: #### C YTO #### [facility] [address] [place] [address] Dr. Troy Jeter Hematocrit (Bld) [Volume fraction] 35.4 % Critically low 36.0-48.0 [facility] Comment on above: Performed By: #### C YTO #### [facility] [address] [place], [place] [id number] Dr. Troy Jeter Hemoglobin (Bld) [Mass/Vol] 10.9 g/dL Critically low 12.0-16.[address] [facility] Comment on above: Performed By: #### C YTO #### [facility] [address] [place] [address] Dr. Troy Jeter IG # 0.03 10e3/ul Normal 0.00-0.03 [facility] Comment on above: Performed By: #### C YTO #### [facility] [address] [place] [address] Dr. Troy Jeter IG % 0.5 % Normal 0.0-0.5 [facility] Comment on above: Performed By: #### C YTO #### [facility] [address] [place] [address] Dr. Troy Jeter LYMPH # 0.3 103/ul Critically low 1.2-3.8 [facility] Comment on above: Performed By: #### C YTO #### [facility] [address] [place] [address] Dr. Troy Jeter Lymphocytes/100 WBC (Bld) 5.8 % Critically low 20.5-60.0 [facility] Comment on above: Performed By: #### C YTO #### [facility] [address] [place] [address] Dr. Troy Jeter MANUAL DIFF REQ NO Normal [facility] Comment on above: Performed By: #### C YTO #### [facility] [address] [place] [address] Dr. Troy Jeter MCH (RBC) [Entitic mass] 27.3 pg Normal 26.7-34.[address] [facility] Comment on above: Performed By: #### C YTO #### [facility] [address] [place] [address] Dr. Troy Jeter MCHC (RBC) [Mass/Vol] 30.8 g/dL Normal 29.9-35.[address] [facility] Comment on above: Performed By: #### C YTO #### [facility] [address] [place] [address] Dr. Troy Jeter MCV (RBC) [Entitic vol] 88.7 fL Normal 81.0-99.[address] [facility] Comment on above: Performed By: #### C YTO #### [facility] [address] [place] [address] Dr. Troy Jeter MONO # 0.3 103/ul Normal 0.3-0.[address] [facility] Comment on above: Performed By: #### C YTO #### [facility] [address] [address] [address] Troy Jeter Monocytes/100 WBC (Bld) 6.2 % Normal 1.7-12.[address] [facility] Comment on above: Performed By: #### C YTO #### [facility] [address] [place] [address] Dr. Troy Jeter NEUT # 4.8 103/ul Normal 1.4-6.[address] [facility] Comment on above: Performed By: #### C YTO #### [facility] [address] [place] [address] Dr. Troy Jeter Neutrophils/100 WBC (Bld) 87.1 % Critically high 43.0-75.[address] [facility] Comment on above: Performed By: #### C YTO #### [facility] [address] [place] [address] Dr. Troy Jeter Platelet mean volume (Bld) [Entitic vol] 9.6 fL Normal 9.5-13.[address] [facility] Comment on above: Performed By: #### C YTO #### [facility] [address] [place] [address] Dr. Troy Jeter PLT 176 103/ul Normal 150-[address] [facility] Comment on above: Performed By: #### C YTO #### [facility] [address] [address] [address] Troy Jeter RBC 3.99 106/ul Critically low 4.20-5.40 [facility] Comment on above: Performed By: #### C YTO #### [facility] [address] [place] [address] Dr. Troy Jeter WBC 5.5 103/ul Normal 4.0-11.0 [facility] Comment on above: Performed By: #### C YTO #### [facility] [address] [place] [address] Dr. Troy Jeter PROF 14(COMP METB)on 022 Albumin [Mass/Vol] 3.1 g/dL Critically low 3.4-5.0 [facility] Comment on above: Performed By: #### C YTO #### [facility] [address] [place] [address] Dr. Troy Jeter Albumin/Globulin [Mass ratio] 0.9 {ratio} Normal [facility] Comment on above: Performed By: #### C YTO #### [facility] [address] [place] [address] Dr. Troy Jeter ALP [Catalytic activity/Vol] 58 U/L Normal 46-116 [facility] Comment on above: Performed By: #### C YTO #### [facility] [address] [place] [address] Dr. Troy Jeter ALT [Catalytic activity/Vol] 49 U/L Normal 14-59 [facility] Comment on above: Performed By: #### C YTO #### [facility] [address] [place] [address] Dr. Troy Jeter Anion gap [Moles/Vol] 15.7 mmol/L Normal [facility] Comment on above: Performed By: #### C YTO #### [facility] [address] [place] [address] Dr. Troy Jeter AST [Catalytic activity/Vol] 59 U/L Critically high 15-37 [facility] Comment on above: Performed By: #### C YTO #### [facility] [address] [place] [address] Dr. Troy Jeter Bilirubin [Mass/Vol] 0.3 mg/dL Normal 0.2-1.0 [facility] Comment on above: Performed By: #### C YTO #### [facility] [address] [place] [address] Dr. Troy Jeter Calcium [Mass/Vol] 8.1 mg/dL Critically low 8.5-10.1 [facility] Comment on above: Performed By: #### C YTO #### [facility] [address] [place] [address] Dr. Troy Jeter Chloride [Moles/Vol] 110 mmol/L Critically high 98-107 [facility] Comment on above: Performed By: #### C YTO #### [facility] [address] [place] [address] Dr. Troy Jeter CO2 [Moles/Vol] 20.8 mmol/L Critically low 21.0-32.0 [facility] Comment on above: Performed By: #### C YTO #### [facility] [address] [place] [address] Dr. Troy Jeter Creatinine [Mass/Vol] 0.94 mg/dL Normal 0.55-1.02 [facility] Comment on above: Performed By: #### C YTO #### [facility] [address] [place] [address] Dr. Troy Jeter EGFR-AF NAMIBIAN >60 Normal >=60 [facility] Comment on above: Performed By: #### C YTO #### [facility] [address] [place] [address] Dr. Troy Jeter EGFR-NON AF NAMIBIAN 60 mL/min/1.73m2 Normal >=60 [facility] Comment on above: Performed By: #### C YTO #### [facility] [address] [place] [address] Dr. Troy Jeter Globulin (S) [Mass/Vol] 3.4 g/dL Normal [facility] Comment on above: Performed By: #### C YTO #### [facility] [address] [place] [address] Dr. Troy Jeter Glucose [Mass/Vol] 95 mg/dL Normal 74-106 [facility] Comment on above: Performed By: #### C YTO #### [facility] [address] [place] [address] Dr. Troy Jeter Potassium [Moles/Vol] 3.5 mmol/L Normal 3.5-5.1 [facility] Comment on above: Performed By: #### C YTO #### [facility] [address] [place] [address] Dr. Troy Jeter Protein [Mass/Vol] 6.5 g/dL Normal 6.4-8.2 [facility] Comment on above: Performed By: #### C YTO #### [facility] [address] [place] [address] Dr. Troy Jeter Sodium [Moles/Vol] 143 mmol/L Normal 136-145 [facility] Comment on above: Performed By: #### C YTO #### [facility] [address] [place] [address] Dr. Troy Jeter Urea nitrogen [Mass/Vol] 18.0 mg/dL Normal 7.0-18.0 [facility] Comment on above: Performed By: #### C YTO #### [facility] [address] [place] [address] Dr. Troy Jeter Urea nitrogen/Creatinine [Mass ratio] 19.1 mg/mg Normal [facility] Comment on above: Performed By: #### C YTO #### [facility] [address] [place] [address] Dr. Troy Jeter CBC W MANUAL DIFFon 03-28-20 22 ATYPICAL LYMPH # Normal [facility] Comment on above: Performed By: #### C YTO #### [facility] [address] [place] [address] Dr. rToy Jeter ATYPICAL LYMPH % Normal [facility] Comment on above: Performed By: #### C YTO #### [facility] [address] [place] [address] Dr. Troy Jeter BAND # 0.1 103/ul Normal 0.0-0.[address] [facility] Comment on above: Performed By: #### C YTO #### [facility] [address] [place] [address] Dr. Troy Jeter BAND % 1 % Normal 0-[address] [facility] Comment on above: Performed By: #### C YTO #### [facility] [address] [address] [address] Troy Jeter BASOM # 0.08 103/ul Normal 0.00-0.10 [facility] Comment on above: Performed By: #### C YTO #### [facility] [address] [place] [address] Dr. Troy Jeter BASOM % 1.0 % Normal 0.2-2.0 [facility] Comment on above: Performed By: #### C YTO #### [facility] [address] [place] [address] Dr. Troy Jeter BLAST # Normal [facility] Comment on above: Performed By: #### C YTO #### [facility] [address] [place] [address] Dr. Troy Jeter BLAST % Normal [facility] Comment on above: Performed By: #### C YTO #### [facility] [address] [place] [address] Dr. Troy Jeter CORRECTED WBC Normal 4.0-11.0 [facility] Comment on above: Performed By: #### C YTO #### [facility] [address] [place] [address] Dr. Troy Jeter EOS # 0.00 103/ul Normal 0.00-0.70 [facility] Comment on above: Performed By: #### C YTO #### [facility] [address] [place] [address] Dr. Troy Jeter EOS% 0.0 % Critically low 0.9-7.0 [facility] Comment on above: Performed By: #### C YTO #### [facility] [address] [place] [address] Dr. Troy Jeter HCT 40.2 % Normal 36.0-48.0 [facility] Comment on above: Performed By: #### C YTO #### [facility] [address] [place] [address] Dr. Troy Jeter HGB 12.5 g/dl Normal 12.0-16.0 [facility] Comment on above: Performed By: #### C YTO #### [facility] [address] [address] [address] Troy Jeter LYMPHM # 0.23 103/ul Critically low 1.20-3.80 [facility] Comment on above: Performed By: #### C YTO #### [facility] [address] [place] [address] Dr. Troy Jeter LYMPHM% 3.0 % Critically low 20.5-60.0 [facility] Comment on above: Performed By: #### C YTO #### [facility] [address] [place] [address] Dr. Troy Jeter MCH 27.1 pg Normal 26.7-34.0 [facility] Comment on above: Performed By: #### C YTO #### [facility] [address] [place] [address] Dr. Troy Jeter MCHC 31.1 g/dl Normal 29.9-35.2 [facility] Comment on above: Performed By: #### C YTO #### [facility] [address] [place] [address] Dr. Troy Jeter MCV 87.2 fL Normal 81.0-99.0 [facility] Comment on above: Performed By: #### C YTO #### [facility] [address] [place] [address] Dr. Troy Jeter METAMYELOCYTE # Normal [facility] Comment on above: Performed By: #### C YTO #### [facility] [address] [place] [address] Dr. Troy Jeter METAMYELOCYTE % Normal [facility] Comment on above: Performed By: #### C YTO #### [facility] [address] [place] [address] Dr. Troy Jeter MONOM# 0.08 103/ul Critically low 0.30-0.80 [facility] Comment on above: Performed By: #### C YTO #### [facility] [address] [place] [address] Dr. Troy Jeter MONOM% 1.0 % Critically low 1.7-12.0 [facility] Comment on above: Performed By: #### C YTO #### [facility] [address] [place] [address] Dr. Troy Jeter MPV 10.0 fL Normal 9.5-13.5 [facility] Comment on above: Performed By: #### C YTO #### [facility] [address] [place] [address] Dr. Troy Jeter MYELOCYTE # Normal [facility] Comment on above: Performed By: #### C YTO #### [facility] [address] [place] [address] Dr. Troy Jeter MYELOCYTE % Normal [facility] Comment on above: Performed By: #### C YTO #### [facility] [address] [place] [address] Dr. Troy Jeter NRBC Normal [facility] Comment on above: Performed By: #### C YTO #### [facility] [address] [place] [address] Dr. Troy Jeter PLT 230 103/ul Normal 150-450 [facility] Comment on above: Performed By: #### C YTO #### [facility] [address] [place] [address] Dr. Troy Jeter RBC 4.61 106/ul Normal 4.20-5.40 [facility] Comment on above: Performed By: #### C YTO #### [facility] [address] [place] [address] Dr. Troy Jeter RDW 13.8 % Normal 11.0-15.0 [facility] Comment on above: Performed By: #### C YTO #### [facility] [address] [place] [address] Dr. Troy Jeter SEG # 7.14 103/ul Critically high 1.40-6.50 [facility] Comment on above: Performed By: #### C YTO #### [facility] [address] [place] [address] Dr. Troy Jeter SEG % 94.0 % Critically high 43.0-75.0 [facility] Comment on above: Performed By: #### C YTO #### [facility] [address] [place], [place] [address] Dr. Troy Jeter WBC 7.6 103/ul Normal 4.0-11.0 [facility] Comment on above: Performed By: #### C YTO #### [facility] [address] [place], [place] [address] ABD/PELVIS WO CONon [...] 2022-03-28 16:37 Normal [address] [facility] Covid-19 PCR (CVDTB)on 03-01 SARS-CoV-2 (COVID-19) RNA BRANDEN+probe Ql (Unsp spec) Not detected Normal NOT DETECTED The [facility] Comment on above: Result Comment: When diagnostic [...] for this test is supported by the Cardiac Nurse Practitioner of Health and Human Service's declaration that [...] #### C VDTB #### [facility] [address] [place] [address] Dr. Troy Jeter ER URINE PROFILEon 2 Bilirubin Ql (U) Negative Normal NEGATIVE [facility] Comment on above: Performed By: #### C BC #### [facility] [address] [place] [address] Dr. Troy Jeter Clarity (U) CLEAR Normal CLEAR [facility] Comment on above: Performed By: #### C BC #### [facility] [address] [place] [address] Dr. Troy Jeter Color (U) LT. YELLOW Normal YELLOW [facility] Comment on above: Performed By: #### C BC #### [facility] [address] [place] [address] Dr. Troy Jeter ERUAHD A micrscopic examination will be performed if indicated. Normal The [facility] Comment on above: Performed By: #### C BC #### [facility] [address] [place] [address] Dr. Troy Jeter Glucose Ql (U) Negative Normal NEGATIVE [facility] Comment on above: Performed By: #### C BC #### [facility] [address] [place] [address] Dr. Troy Jeter Hemoglobin Ql (U) SMALL Abnormal NEGATIVE [facility] Comment on above: Performed By: #### C BC #### [facility] [address] [place] [address] Dr. Troy Jeter Ketones Ql (U) Negative Normal NEGATIVE [facility] Comment on above: Performed By: #### C BC #### [facility] [address] [place] [address] Dr. Troy Jeter LEUKOCYTES Negative Normal NEGATIVE [facility] Comment on above: Performed By: #### C BC #### [facility] [address] [place] [address] Dr. Troy Jeter Nitrite Ql (U) Negative Normal NEGATIVE [facility] Comment on above: Performed By: #### C BC #### [facility] [address] [place] [address] Dr. Troy Jeter pH (U) 6.0 [pH] Normal 5-9 [facility] Comment on above: Performed By: #### C BC #### [facility] [address] [place] [address] Dr. Troy Jeter SPEC GRAVITY 1.020 Normal 1.005-<=1.025 [facility] Comment on above: Performed By: #### C BC #### [facility] [address] [place] [address] Dr. Troy Jeter UA PROTEIN Negative Normal NEGATIVE/ TRACE The [facility] Comment on above: Performed By: #### C BC #### [facility] [address] [place] [address] Dr. Troy Jeter UR MICRO IND INDICATED Normal [facility] Comment on above: Performed By: #### C BC #### [facility] [address] [place] [address] Dr. Troy Jeter Urobilinogen Qn (U) 0.2 {Kriss'U}/dL Normal 0.2 - 1. 0 [facility] Comment on above: Performed By: #### C BC #### [facility] [address] [place] [address] Dr. Troy Jeter GI PANEL (PCR)on 03-28-2022 Adenovirus F 40/41 Not detected Normal NOT DETECTED [facility] Comment on above: Performed By: #### C YTO #### [facility] [address] [place] [address] Dr. Troy Jeter Astrovirus Not detected Normal NOT DETECTED [facility] Comment on above: Performed By: #### C YTO #### [facility] [address] [place] [address] Dr. Troy Cid. Diff toxin A/B Not detected Normal NOT DETECTED [facility] Comment on above: Performed By: #### C YTO #### [facility] [address] [place] [address] Dr. Troy Jeter Campylobacter Not detected Normal NOT DETECTED [facility] Comment on above: Performed By: #### C YTO #### [facility] [address] [place] [address] Dr. Troy Jeter Cryptosporidium Not detected Normal NOT DETECTED [facility] Comment on above: Performed By: #### C YTO #### [facility] [address] [place] [address] Dr. Troy Jeter Cyclos. Cayetanensis Not detected Normal NOT DETECTED The [facility] Comment on above: Performed By: #### C YTO #### [facility] [address] [place] [address] Dr. Troy Jeter E. Coli O157 Not Applicable Normal Not Applicable [facility] Comment on above: Performed By: #### C YTO #### [facility] [address] [place] [address] Dr. Troy Jeter E. histolytica Not detected Normal NOT DETECTED The [facility] Comment on above: Performed By: #### C YTO #### [facility] [address] [place] [address] Dr. Troy Jeter EAEC Not detected Normal NOT DETECTED [facility] Comment on above: Performed By: #### C YTO #### [facility] [address] [place] [address] Dr. Troy Jeter EIEC Not detected Normal NOT DETECTED [facility] Comment on above: Performed By: #### C YTO #### [facility] [address] [place], [place] [id number] Dr. Troy Jeter EPEC Not detected Normal NOT DETECTED [facility] Comment on above: Performed By: #### C YTO #### [facility] [address] [place] [address] Dr. Troy Jeter ETEC Not detected Normal NOT DETECTED [facility] Comment on above: Performed By: #### C YTO #### [facility] [address] [place] [address] Dr. Troy Vallejo Lamblia Not detected Normal NOT DETECTED [facility] Comment on above: Performed By: #### C YTO #### [facility] [address] [place] [address] Dr. Troy KIMBROUGH CONTROLS PASSED Normal [facility] Comment on above: Performed By: #### C YTO #### [facility] [address] [place] [address] Dr. Troy DINERO HEADER GI PANEL BACTERIA Normal [facility] Comment on above: Performed By: #### C YTO #### [facility] [address] [place] [address] Dr. Troy JIMENEZ ECOLI GI PANEL DIARRHEAGEN IC E.COLI / SHIGELLA Normal [facility] Comment on above: Performed By: #### C YTO #### [facility] [address] [place] [address] Dr. Troy JIMENEZ INFO SEE BELOW [facility] Comment on above: Result Comment: EAEC - Enteroaggregative E. Coli EPEC- Enteropathogenic E. Coli ETEC- Enterotoxigenic E. Coli lt/st STEC- Shigella-like toxin-producing E. Coli stx1/stx2 EIEC- Shigella/Enteroinvasive E. Coli Performed By: #### C YTO #### [facility] [address] [place] [address] Dr. Troy JIMENEZ PARASITES GI PANEL PARASITES Normal [facility] Comment on above: Performed By: #### C YTO #### [facility] [address] [place] [address] Dr. Troy JIMENEZ VIRUS GI PANEL VIRUSES Normal [facility] Comment on above: Performed By: #### C YTO #### [facility] [address] [place] [address] Dr. Troy Jeter Norovirus GI/GII Not detected Normal NOT DETECTED The [facility] Comment on above: Performed By: #### C YTO #### [facility] [address] [place] [address] Dr. Troy Jeter P. Shigelloides Not detected Normal NOT DETECTED [facility] Comment on above: Performed By: #### C YTO #### [facility] [address] [place] [address] Dr. Troy Jeter Rotavirus A Detected Abnormal NOT DETECTED The [facility] Comment on above: Performed By: #### C YTO #### [facility] [address] [place] [address] Dr. Troy Jeter Salmonella Not detected Normal NOT DETECTED [facility] Comment on above: Performed By: #### C YTO #### [facility] [address] [place] [address] Dr. Troy Jeter Sapovirus Not detected Normal NOT DETECTED [facility] Comment on above: Performed By: #### C YTO #### [facility] [address] [place] [address] Dr. Troy Jeter STEC Not detected Normal NOT DETECTED [facility] Comment on above: Performed By: #### C YTO #### [facility] [address] [place] [address] Dr. Troy Jeter Vibrio Not detected Normal NOT DETECTED [facility] Comment on above: Performed By: #### C YTO #### [facility] [address] [place] [address] Dr. Troy Jeter Vibrio Cholera Not detected Normal NOT DETECTED [facility] Comment on above: Performed By: #### C YTO #### [facility] [address] [place] [address] Dr. Troy Jeter Y. Enterocolitica Not detected Normal NOT DETECTED [facility] Comment on above: Performed By: #### C YTO #### [facility] [address] [place] [address] Dr. Troy Jeter LACTATE/LACTIC ACIDon 2021 Lactate [Moles/Vol] 1.7 mmol/L Normal 0.4-1.9 [facility] Comment on above: Performed By: #### C BC #### [facility] [address] [place] [address] Dr. Troy Jeter LIPASEon 03-28-2022 Lipase [Catalytic activity/Vol] 135.0 U/L Normal 73.0-393.0 [facility] Comment on above: Performed By: #### L IPA, CMP #### [facility] [address] [place] [address] Dr. Troy Jeter PROF 14(COMP METB)on 022 Albumin [Mass/Vol] 3.9 g/dL Normal 3.4-5.0 [facility] Comment on above: Performed By: #### L IPA, CMP #### [facility] [address] [place] [address] Dr. Troy Jeter Albumin/Globulin [Mass ratio] 1.0 {ratio} Normal [facility] Comment on above: Performed By: #### L IPA, CMP #### [facility] [address] [place] [address] Dr. Troy Jeter ALP [Catalytic activity/Vol] 81 U/L Normal 46-[address] [facility] Comment on above: Performed By: #### L IPA, CMP #### [facility] [address] [place] [address] Dr. Troy Jeter ALT [Catalytic activity/Vol] 45 U/L Normal 14-[address] [facility] Comment on above: Performed By: #### L IPA, CMP #### [facility] [address] [place] [address] Dr. Troy Jeter Anion gap [Moles/Vol] 15.2 mmol/L Normal [facility] Comment on above: Performed By: #### L IPA, CMP #### [facility] [address] [place] [address] Dr. Troy Jeter AST [Catalytic activity/Vol] 42 U/L Critically high 15-37 [facility] Comment on above: Performed By: #### L IPA, CMP #### [facility] [address] [place] [address] Dr. Troy Jeter Bilirubin [Mass/Vol] 0.5 mg/dL Normal 0.2-1.0 [facility] Comment on above: Performed By: #### L IPA, CMP #### [facility] [address] [place] [address] Dr. Troy Jeter Calcium [Mass/Vol] 9.4 mg/dL Normal 8.5-10.1 [facility] Comment on above: Performed By: #### L IPA, CMP #### [facility] [address] [place] [address] Dr. Troy Jeter Chloride [Moles/Vol] 105 mmol/L Normal 98-107 [facility] Comment on above: Performed By: #### L IPA, CMP #### [facility] [address] [place] [address] Dr. Troy Jeter CO2 [Moles/Vol] 23.7 mmol/L Normal 21.0-32.0 [facility] Comment on above: Performed By: #### L IPA, CMP #### [facility] [address] [place] [address] Dr. Troy Jeter Creatinine [Mass/Vol] 0.91 mg/dL Normal 0.55-1.02 [facility] Comment on above: Performed By: #### L IPA, CMP #### [facility] [address] [place] [address] Dr. Troy Jeter EGFR-AF NAMIBIAN >60 Normal >=60 [facility] Comment on above: Performed By: #### L IPA, CMP #### [facility] [address] [place] [address] Dr. Troy Jeter EGFR-NON AF NAMIBIAN >60 Normal >=60 [facility] Comment on above: Performed By: #### L IPA, CMP #### [facility] [address] [place] [address] Dr. Troy Jeter Globulin (S) [Mass/Vol] 4.0 g/dL Normal [facility] Comment on above: Performed By: #### L IPA, CMP #### [facility] [address] [address] [address] Troy Jeter Glucose [Mass/Vol] 119 mg/dL Critically high 74-106 [facility] Comment on above: Performed By: #### L IPA, CMP #### [facility] [address] [place] [address] Dr. Troy Jeter Potassium [Moles/Vol] 3.9 mmol/L Normal 3.5-5.1 [facility] Comment on above: Performed By: #### L IPA, CMP #### [facility] [address] [place] [address] Dr. Troy Jeter Protein [Mass/Vol] 7.9 g/dL Normal 6.4-8.2 [facility] Comment on above: Performed By: #### L IPA, CMP #### [facility] [address] [place] [address] Dr. Troy Jeter Sodium [Moles/Vol] 140 mmol/L Normal 136-145 [facility] Comment on above: Performed By: #### L IPA, CMP #### [facility] [address] [place] [address] Dr. Troy Jeter Urea nitrogen [Mass/Vol] 16.0 mg/dL Normal 7.0-18.0 [facility] Comment on above: Performed By: #### L IPA, CMP #### [facility] [address] [place] [address] Dr. Troy Jeter Urea nitrogen/Creatinine [Mass ratio] 17.6 mg/mg Normal [facility] Comment on above: Performed By: #### L IPA, CMP #### [facility] [address] [place] [address] Dr. Troy Jeter URINE MICROSCOPIC ONLYon BACTERIA TRACE Abnormal NONE SEEN The [facility] Comment on above: Performed By: #### C BC #### [facility] [address] [place] [address] Dr. Troy Jeter Bacteria identified Cx Nom (U) NOT INDICATED Normal [facility] Comment on above: Performed By: #### C BC #### [facility] [address] [place] [address] Dr. Troy Jeter CAST NONE SEEN Normal NONE SEEN [facility] Comment on above: Performed By: #### C BC #### [facility] [address] [place] [address] Dr. Troy Jeter Crystals LM Nom (Urine sed) NONE SEEN Normal NONE SEEN [facility] Comment on above: Performed By: #### C BC #### [facility] [address] [place] [address] Dr. Troy Jeter Epithelial cells LM Ql (Urine sed) FEW Abnormal NONE SEEN /RARE [facility] Comment on above: Performed By: #### C BC #### [facility] [address] [place] [address] Dr. Troy Jeter MUCOUS NONE SEEN Normal NONE SEEN [facility] Comment on above: Performed By: #### C BC #### [facility] [address] [place] [address] Dr. Troy Jeter RBC 2-5 Abnormal 0-2 [facility] Comment on above: Performed By: #### C BC #### [facility] [address] [place] [address] Dr. Troy Jeter WBC 0-2 Abnormal NONE SEEN [facility] Comment on above: Performed By: #### C BC #### [facility] [address] [place] [address] Dr. Troy Jeter [facility] Surgical Pathology Depar tmenton 08-13-2020 [facility] Surgical Pathology Department Name DANIELLA BEJARANO Pathologist: AMEE KELSEY DMD Date of Procedure: 08/13/2020 Date Received: 08/17/2020 Date Reported 08/25/2020 Submitting Physician: BUTCH LONG DDS Location: [facility] Other External # FINAL DIAGNOSIS A. LEFT LATERAL TONGUE, EXCISION: -- TRAUMATIC ULCER -- NEGATIVE FOR DYSPLASIA OR MALIGNANCY ICD-10/CPT: K14.0/73442 Electronically Signed Out By AMEE KELSEY DMD/ARASELI [...] and entirely submitted in 2 cassettes. [facility] Summary of Cassettes: Specimen Label Site A 1 tips 2 body of ellipse [facility]/08/19/2020 [facility] Department of Pathology [address] [place] [address] Normal [facility] Comment on above: Performed By: #### U [facility] #### [facility] Surgical Pathology Department [address] [place] [address] Cardiovascular Lab Reporton 06-12-2020 Cardiovascular Lab Report [facility] Patient Name: [facility] A MR #: [id number] Department of Physician: Audie Bustos M.D. Division of Service Date: 06/11/2020 Cardiology Birthdate: 1960 Adult Cardiovascular Room #: [address] [place] [address] Cardiovascular Laboratory Report INDICATION: The patient a [...] signed informed consent. She was brought to veterinary laboratory diagnostician in a fasting state. The right neck area was prepped and draped in usual fashion. Using ultrasound guidance and micropuncture technique, the right internal jugular vein was accessed. A 6-Trinidadian x 11 cm sheath was placed. A 6-Trinidadian Duron catheter was used for right heart catheterization with measurement of pressures and calculation of cardiac output using the estimated Daysi method. Duron catheter was removed. Access in the right radial artery was obtained using micropuncture technique. A 6-Trinidadian x 11 cm Hydrophilic sheath was advanced. Verapamil was given through the sheath and heparin was administered intravenously. Note that modified David's test was favorable on the right. Initial catheter advancement was made, feasible using an angled Glidewire to overcome a radial artery loop, following which bilateral selective coronary angiography was performed using 6-Trinidadian JL3.5 and JR5 diagnostic catheter. Catheters were [...] P/Audie Bustos M.D. Date Trans: 06/12/2020 04:00 A/marguerite [id number] cc: Bayron Singh M.D. [address] [facility] [id number] Normal [facility] *SARS-CoV-2 COVID-19on 06-09 [id number] Not Detected Normal Not Detected [facility] Comment on above: Order Comment: The A ptima SARS-CoV-2 assay is a nucleic acid amplification test intended for the qualitative detection of RNA from SARS-CoV-2 isolated and purified from nasopharyngeal (OPERATIONS SUPPORT COORDINATOR),oropharyngeal (OP), nasal swab, sputum, and bronchoalveolar lavage (BAL) specimens from patients with signs and symptoms of infection who are suspected of COVID-19. Results are for the identification of SARS-CoV-2 RNA. The SARS-CoV-2 RNA is generally detectable during the acute phase of infection. The Aptima SARS-CoV-2 Assay on the Carmudi and Carmudi Fusion system is intended for use by laboratory personnel specifically instructed and trained in the operation of the [place] and Carmudi Fusion system. The Aptima SARS-CoV-2 assay is [...] information. Performed By: #### [id number] #### [facility] [place] [address], [facility] CNPN Telephone (HEMASA) DANIELLA BEJARANO ([id number]) 1960 F Date Time Provider Department 02/17/20 BONNY FELIPE During your visit today, we recorded the following information about you: Ai Adam [facility] 02/17/2020 2:53 PM Signed Records faxed to [facility]. Allergies As of Date: 02/17/2020 (No [...] Status:Closed by AI COLVIN on 02/17/20 [facility] Vital Signs Date Time Vital Sign Value Performing Clinician Facility 04-26-2023 10:40-0400 Heart rate 84 /min Jeff Booth [facility] 04-26-2023 10:40-0400 SaO2% (BldA) [Mass fraction] 98 % Jeff Booth [facility] 04-26-2023 10:40-0400 Body temperature 97.52 [degF] Jeff Booth [facility] 04-26-2023 10:39-0400 Diastolic blood pressure 75 mm[Hg] Jeff Booth [facility] 04-26-2023 10:39-0400 Mean blood pressure 87 mm[Hg] Jeff Booth [facility] 04-26-2023 10:39-0400 Systolic blood pressure 111 mm[Hg] Jeff Booth [facility] 04-26-2023 10:39-0400 Respiratory rate 16 /min Jeffred Booth [facility] 01-04-2023 08:01-0500 Blood Pressure Location Dina Lue [facility] 01-04-2023 08:01-0500 Diastolic blood pressure 82 mm[Hg] Dina Lue [facility] 01-04-2023 08:01-0500 Heart rate 71 /min Dina Lue [facility] 01-04-2023 08:01-0500 Systolic blood pressure 124 mm[Hg] Dina Lue [facility] 10-26-2022 10:26-0500 Blood Pressure Location AI RUY [facility] 10-26-2022 10:26-0500 Diastolic blood pressure 84 mm[Hg] AI RUY [facility] 10-26-2022 10:26-0500 Heart rate 65 /min AI RUY [facility] 10-26-2022 10:26-0500 Respiratory rate 16 /min AI RUY [facility] 10-26-2022 10:26-0500 Systolic blood pressure 123 mm[Hg] AI RUY [facility] 10-19-2022 08:01-0500 Blood Pressure Location Dina Lue [facility] 10-19-2022 08:01-0500 Diastolic blood pressure 64 mm[Hg] Dina Lue [facility] 10-19-2022 08:01-0500 Heart rate 66 /min Dina Lue [facility] 10-19-2022 08:01-0500 Systolic blood pressure 145 mm[Hg] Dina Lue [facility] 10-12-2022 08:11-0500 Blood Pressure Location Dina Lue [facility] 10-12-2022 08:11-0500 Diastolic blood pressure 68 mm[Hg] Dina Lue [facility] 10-12-2022 08:11-0500 Heart rate 74 /min Dina Lue [facility] 10-12-2022 08:11-0500 Respiratory rate 16 /min Dina Lue [facility] 10-12-2022 08:11-0500 Systolic blood pressure 132 mm[Hg] Dina Lue [facility] 07-06-2022 10:28-0400 Blood Pressure Location Dina Lue [facility] 07-06-2022 10:28-0400 Diastolic blood pressure 62 mm[Hg] Dina Lue [facility] 07-06-2022 10:28-0400 Heart rate 74 /min Dina Lue [facility] 07-06-2022 10:28-0400 Respiratory rate 16 /min Dina Lue [facility] 07-06-2022 10:28-0400 Systolic blood pressure 98 mm[Hg] Dina Lue [facility] 03-02-2022 09:27-0400 Blood Pressure Location AI RUY [facility] 03-02-2022 09:27-0400 Diastolic blood pressure 66 mm[Hg] AI RUY [facility] 03-02-2022 09:27-0400 Heart rate 64 /min AI RUY [facility] 03-02-2022 09:27-0400 Systolic blood pressure 137 mm[Hg] AI RUY [facility] 02-09-2022 08:17-0400 Blood Pressure Location Dnia Lue [facility] 02-09-2022 08:17-0400 Diastolic blood pressure 64 mm[Hg] [facility] 02-09-2022 08:17-0400 Heart rate 60 /min Dina Lue [facility] meets 02-09-2022 08:17-0400 Respiratory rate 16 /min [facility] 02-09-2022 08:17-0400 Systolic blood pressure 133 mm[Hg] [facility] 02-02-2022 08:03-0400 Blood Pressure [facility] 02-02-2022 08:03-0400 Diastolic blood pressure 100 mm[Hg] [facility] 02-02-2022 08:03-0400 Heart rate 72 /min [facility] 02-02-2022 08:03-0400 Systolic blood pressure 144 mm[Hg] [facility] 01-26-2022 08:18-0400 Blood Pressure Location Dina Lue [facility] meets 01-26-2022 08:18-0400 Diastolic blood pressure 75 mm[Hg] Dina Lue [facility] meets 01-26-2022 08:18-0400 Heart rate 56 /min Dina Lue [facility] meets 01-26-2022 08:18-0400 Systolic blood pressure 128 mm[Hg] Dina Lue [facility] meets Encounters Encounter Date Encounter Type Care Provider Facility Start: 02-09-2024 End: 02-09-2024 ambulatory [facility] Start: 02-09-2024 End: 02-09-2024 Encounter for preprocedural cardiovascular examination [facility] Start: 01-24-2024 End: 01-25-2024 ambulatory MYRNA CORDOVA Not Available Start: 01-10-2024 ambulatory [facility] Start: 01-02-2024 End: 01-02-2024 ambulatory [facility] Start: 11-15-2023 End: 11-15-2023 ambulatory BAYRON SINGH Not Available Start: 10-04-2023 ambulatory [facility] Start: 06-28-2023 End: 06-28-2023 ambulatory [facility] Start: 06-02-2023 End: 06-02-2023 ambulatory [facility] Start: 05-26-2023 End: 05-26-2023 ambulatory [facility] Start: 05-19-2023 End: 05-19-2023 ambulatory [facility] Start: 05-16-2023 ambulatory AI MITCHELL Facili ty:[facility] Start: 05-12-2023 End: 05-12-2023 ambulatory [facility] Start: 05-09-2023 ambulatory AI Javon RUY Facili ty:[facility] Start: 05-05-2023 End: 05-05-2023 ambulatory [facility] Start: 04-28-2023 End: 04-28-2023 ambulatory [facility] Start: 04-26-2023 End: 04-27-2023 ambulatory Jeff Marco Antoniodavid Facility:[facility] Start: 04-26-2023 End: 04-26-2023 Patient encounter procedure Jeff Booth [facility] Start: 04-25-2023 ambulatory AI DAVIDRY Facili ty:[facility] Start: 04-04-2023 End: 04-06-2023 ambulatory [facility] Start: 03-30-2023 End: 03-31-2023 ambulatory [facility] Start: 03-28-2023 End: 03-28-2023 ambulatory [facility] Start: 03-16-2023 End: 03-17-2023 ambulatory [facility] Start: 03-13-2023 ambulatory [facility] Start: 03-13-2023 End: 03-13-2023 ambulatory [facility] Start: 03-08-2023 Encounter for genera l adult medical examination without abnormal findings DR BAYRON SINGH [facility] Start: 03-06-2023 End: 03-07-[address] BAYRON SINGH Facility:[facility] Start: 03-02-2023 End: 03-03-[address] BAYRON SINGH Facility:[facility] Start: 03-02-2023 End: 03-03-2023 Encounter for general adult medical examination without abnormal findings DR BAYRON SINGH Facility:[facility] Start: 02-22-2023 End: 02-22-2023 [facility] Start: 01-04-2023 End: 01-05-2023 ambulatory Dina Robertoe Facility:[facility] [place] Start: 01-04-2023 End: 01-04-2023 Patient encounter procedure Dina M. Lue [facility] Start: 01-02-2023 ambulatory Dina M. Lue Facility:[facility] Start: 12-28-2022 End: 12-29-2022 ambulatory DINA M LUE . Facility:[facility] Start: 12-25-2022 Encounter for preprocedural cardiovascular examination DINA Nedra NEVILLEE . [facility] Start: 12-21-2022 End: 12-22-2022 ambulatory DINA M LUE . Facility:[facility] Start: 12-21-2022 End: 12-22-2022 Encounter for preprocedural cardiovascular examination DINA Sneed LUE . Facility: Start: 12-14-2022 End: 12-15-2022 ambulatory Blanca Fitzpatrick Facility:[facility] Start: 12-14-2022 End: 12-14-2022 Lab Drop off [facility] Chris [facility] Start: 12-14-2022 End: 12-14-2022 Patient encounter procedure Dina M. Lue [facility] Start: 12-07-2022 End: 12-08-2022 ambulatory DINA M LUE . Facility:[facility] Start: 11-23-2022 End: 11-24-[address] BAYRON SINGH Facility:[facility] Start: 11-05-2022 End: 11-05-[address] BAYRON SINGH Facility:[facility] Start: 10-28-2022 ambulatory Dina Nedra. Lue Facility:[facility] Start: 10-26-2022 End: 10-26-2022 Patient encounter procedure AI MITCHELL [facility] Start: 10-26-2022 End: 10-27-2022 [facility]ulatory [facility] Start: 10-19-2022 End: 10-20-2022 ambulatory Dina M. Lue Facility:[facility] Start: 10-19-2022 End: 10-19-2022 Patient encounter procedure Dina M. Lue [facility] Start: 10-12-2022 End: 10-13-2022 ambulatory Dina M. Lue Facility:[facility] Start: 10-12-2022 End: 10-12-2022 Patient encounter procedure Dina M. Lue [facility] Start: 10-05-2022 ambulatory Dina Lue Facility:[facility] Start: 09-02-2022 End: 09-03-[address] MICAELA DE . Facility: Start: 08-10-2022 End: 08-11-2022 ambulatory DINA M LUE . Facility: Start: 07-22-2022 End: 07-23-2022 ambulatory DINA M LUE . Facility: Start: 07-06-2022 End: 07-07-2022 ambulatory Dina M. Lue Facility:[facility] Start: 07-06-2022 End: 07-06-2022 Patient encounter procedure Dina M. Lue [facility] Start: 07-01-2022 End: 07-02-2022 ambulatory DINA M LUE . Facility: Start: 06-29-2022 End: 06-30-2022 ambulatory Dina M. Lue Facility:[facility] Start: 06-29-2022 End: 06-29-2022 Patient encounter procedure Dina M. Lue [facility] Start: 06-22-2022 End: 06-22-2022 Patient encounter procedure Dina M. Lue [facility] Start: 05-26-2022 End: 05-27-[address] BAYRON SINGH Facility:[facility] Start: 05-18-2022 End: 05-18-2022 Patient encounter procedure Dina M. Lue [facility] Start: 05-11-2022 End: 05-11-2022 ambulatory DINA M LUE . Facility:[facility] Start: 05-09-2022 Encounter for preprocedural laboratory examination DINA M LUE . [facility] Start: 05-04-2022 End: 05-05-2022 ambulatory DINA M LUE . Facility: Start: 05-04-2022 End: 05-05-2022 Encounter for preprocedural laboratory examination DINA M LUE . Facility:[facility] Start: 04-27-2022 End: 04-27-2022 ambulatory DINA M LUE . Facility:[facility] Start: 04-11-2022 End: 04-12-[address] BAYRON SINGH Facility:[facility] Start: 03-28-2022 End: 03-31-[address] BAYRON SINGH Facility:[facility] Start: 03-25-2022 End: 03-25-2022 Lab Drop off Loco MARRERO [facility] Start: 03-25-2022 End: 03-25-2022 Patient encounter procedure Loco MARRERO [facility] Start: 03-02-2022 End: 03-02-2022 Patient encounter procedure AI MITCHELL [facility] Start: 02-09-2022 End: 02-09-2022 Patient encounter procedure Dina Cobb [facility] Start: 02-02-2022 End: 02-02-2022 Patient encounter procedure Dina Cobb [facility] Start: 01-26-2022 End: 01-26-2022 Lab Drop off Dina Cobb [facility] Start: 01-26-2022 End: 01-26-2022 Patient encounter procedure Dina Cobb [facility] [place] Start: 03-26-2021 End: 03-27-2021 ambulatory Referral Self Facility:[facility] Start: 06-11-2020 End: 06-12-2020 Patient encounter procedure PROVIDER UNKNOWN Facility:[facility] Procedures Date Procedure Procedure Detail Performing [...] douglas 10-26-2022 bacillus calmette-gu nestor vaccine AI MITCHELL [facility] 10-19-2022 bacillus calmette-gu nestor vaccine Dina Lue [facility] 10-12-2022 bacillus calmette-gu nestor vaccine Dina Lue [facility] 09-02-2022 SARS-CoV-2 (COVID-19 ) [id number] vaccine Dina Lue [facility] 08-04-2022 influenza virus vacc ine, unspecified formulation Dina Lue [facility] 07-26-2022 bacillus calmette-gu nestor vaccine Dina Lue [facility] 07-06-2022 bacillus calmette-gu nestor vaccine Dina Lue [facility] 06-29-2022 bacillus calmette-gu nestor vaccine Dina Lue [facility] 06-22-2022 bacillus calmette-gu nestor vaccine Dina Lue [facility] 03-02-2022 bacillus calmette-gu nestor vaccine AI RUY [facility] 02-23-2022 bacillus calmette-gu nestor vaccine AI RUY [facility] 02-16-2022 bacillus calmette-gu nestor vaccine AI RUY [facility] 02-09-2022 bacillus calmette-gu nestor vaccine Dina Lue [facility] 02-02-2022 bacillus calmette-gu nestor vaccine Dina Lue [facility] 01-26-2022 bacillus calmette-gu nestor vaccine Dina Lue [facility] 12-17-2021 pneumococcal polysaccharide vaccine, 23 valent Dina Lue [facility] 10-27-2021 bacillus calmette-gu nestor vaccine Dina Lue [facility] 10-19-2021 bacillus calmette-gu nestor vaccine Dina Lue [facility] 10-13-2021 bacillus calmette-gu nestor vaccine Dina Lue [facility] 10-06-2021 bacillus calmette-gu nestor vaccine Dina Lue [facility] 09-29-2021 bacillus calmette-gu nestor vaccine Dina Lue [facility] 09-22-2021 bacillus calmette-gu nestor vaccine Dina Lue [facility] 08-20-2021 SARS-CoV-2 (COVID-19 ) mRNA-1273 vaccine Dina Lue [facility] 08-19-2021 influenza virus vacc ine, unspecified formulation AI MITCHELL [facility] 07-30-2021 influenza virus vacc ine, unspecified formulation Dina Lue [facility] 11-26-2020 SARS-CoV-2 (COVID-19 ) mRNA-1273 vaccine Dina Lue [facility] 10-28-2020 SARS-CoV-2 (COVID-19 ) mRNA-1273 vaccine Dina Lue [facility] 07-18-2018 influenza virus vacc ine, unspecified formulation Dina Cobb [facility] 07-30-2015 pneumococcal polysaccharide vaccine, 23 valent Dina Cobb [facility] Payers Date Payer Category Payer Unknown [id number] 2020 Self-pay [id number] 2019 Unknown [id number] 1961 Self-pay [id number] 1961 Unknown [id number] 1960 Unknown [id number] 2.16.8 40.1.377981.3.579.2.647 1960 Unknown [id number] 2.16.84 0.1.778924.3.579.2.593 1960 Unknown [id number] 2.16.84 0.1.302824.3.579.2.593 1960 Unknown [id number] 2.16.84 0.1.261064.3.579.2.593 1960 Unknown [id number] 2.16.84 0.1.182869.3.579.2.593 1960 Unknown [id number] 2.16.84 0.1.210304.3.579.2.593 1958 Unknown [id number] 2.16.84 0.1.496010.3.579.2.593 1958 Unknown [id number] 2.16.84 0.1.089728.3.579.2.593 1958 Unknown [id number] 2.16.84 0.1.596829.3.579.2.593 1958 Unknown [id number] 2.16.84 0.1.280279.3.579.2.593 1958 Unknown [id number] 2.16.84 0.1.717135.3.579.2.593 1958 Unknown [id number] 2.16.84 0.1.320420.3.579.2.593 1958 Unknown [id number] 2.16.84 0.1.054744.3.579.2.593 1958 Unknown [id number] 2.16.84 0.1.727681.3.579.2.593 1958 Unknown [id number] 2.16.84 0.1.395722.3.579.2.593 1958 Unknown [id number] 2.16.84 0.1.612439.3.579.2.593 1958 Unknown [id number] 2.16.84 0.1.404367.3.579.2.593 1958 Unknown [id number] 2.16.8 40.1.396929.3.579.2.727 1958 Unknown [id number] 2.16.8 40.1.862063.3.579.2.727 1958 Unknown [id number] 2.16.8 40.1.674695.3.579.2.727 1958 Unknown [id number] 2.16.8 40.1.824660.3.579.2.727 1958 Unknown [id number] 2.16.8 40.1.924105.3.579.2.727 1958 Unknown [id number] 2.16.8 40.1.477141.3.579.2.727 1958 Unknown [id number] 2.16.8 40.1.531785.3.579.2.727 1958 Unknown [id number] 2.16.8 40.1.612070.3.579.2.727 1958 Unknown [id number] 2.16.8 40.1.184847.3.579.2.727 1958 Unknown [id number] 2.16.8 40.1.381718.3.579.2.727 1958 Unknown [id number] 2.16.8 40.1.968410.3.579.2.727 1958 Unknown [id number] 2.16.8 40.1.532844.3.579.2.72 1958 Unknown [id number] 2.16.8 40.1.050455.3.579.2.72 1958 Unknown [id number] 2.16.8 40.1.742386.3.579.2.72 1958 Unknown [id number] 2.16.8 40.1.916247.3.579.2.72 1958 Unknown [id number] 2.16.8 40.1.727729.3.579.2.727 1958 Unknown [id number] 2.16.8 40.1.561742.3.579.2.72 1958 Unknown [id number] 2.16.8 40.1.293474.3.579.2.727 1958 Unknown [id number] 2.16.8 40.1.571501.3.579.2.727 1958 Unknown [id number] 2.16.84 0.1.765868.3.579.2.1259 1958 Unknown [id number] 2.16.84 0.1.869754.3.579.2.1259 Unknown [id number] 2.16.84 0.1.644895.3.579.2.593 Unknown [id number] 2.16.8 40.1.384552.3.579.2.531 Social History Date Type Detail Facility Start: 01-26-2022 End: 10-12-2022 Tobacco smoking status Ex-smoker (finding) [facility] Tobacco smoking status Never [facility] Sex Assigned At Female [facility] Start: 1960 Sex Assigned At Female F [facility] Functional Status Date Assessment Result Facility 01-04-2023 Functional Status N/A [facility] 10-26-2022 Functional Status N/A [facility] 10-19-2022 Functional Status N/A [facility] 10-12-2022 Functional Status N/A [facility] 07-06-2022 Functional Status N/A [facility] 06-22-2022 Functional Status N/A [facility] 05-18-2022 Functional Status N/A [facility] Clinical Notes 01-26-2022 to 02-09-2024 Note Date & Type Note Facility 02-09-2024 Note RCRI= 1???points Cla ss II Risk 6.0???% 30-day risk of , [place], or cardiac arrest From a cardiac perspective pt may proceed with colonoscopy, she is a low risk for a low risk procedure. She may hold Aspirin if absolutely needed. Please monitor hemodynamics carefully and prevent any major fluid shifts. This is good for 6 months [facility] 02-09-2024 Note Hypertension is well controlled Continue olmesartan, and start toprol Renal function stable [facility] 02-09-2024 Note Noted sinus tachycar apollo with occasional PACs and PVCs- will start toprol 25 mg daily for management D/W pt to call office for low b/p, fatigue, lightheadedness/dizziness. Or any concerns [facility] 02-09-2024 Note UTP CARDIOLOGY PROGR ESS NOTE [facility] HPI: Daniella Bejarano is a 63 y.o. female here for F/U for review of event monitor, echo and labs HPI 63 yo female presents today for F/U, last visit was in 2021, PMH: Dyslipidemia,Obesity, Palpitations, Aneurysm of coronary vessel-RCA, Essential hypertension, Dyspnea on exertion. Patient here for follow up Holter monitor and echo. Says her BP has been good. Still has chest discomfort and feels her heart is pounding with exertion. States that palpitations- feel like a strong heart beat or skipped beat. Denied lightheadedness, dizziness, syncope Review of Systems Cardiovascular: Positive for chest pain ( discomfort , intermittent), dyspnea on exertion, irregular heartbeat, leg swelling and palpitations. Respiratory: Positive for shortness of breath. Musculoskeletal: Positive for arthritis, back pain, joint pain and myalgias. All other systems reviewed and are negative. Visit Vitals BP 127/81 (BP Location: Left arm, Patient Position: Sitting) Pulse 73 Ht 1.651 m (5' 5 ) Wt 124 kg (273 lb) SpO2 98% BMI 45.43 kg/m??? OB Status Postmenopausal Smoking Status Former BSA 2.38 m??? Allergies Allergen Reactions Oxycodone-Acetaminophen Headache and Hives Medications: Current Outpatient Medications on File Prior to Visit Medication Sig Dispense Refill aspirin 81 mg EC tablet Take 81 mg by mouth in the morning. calcium carb-vitamin D3-vit K2 600 mg-1,000 unit-90 mcg tablet 1 (one) time each day at the same time. cyclobenzaprine (Flexeril) 10 mg tablet Take 10 mg by mouth if needed in the morning, at noon, and at bedtime. furosemide (Lasix) 40 mg tablet Take 20 mg by mouth in the morning. nabumetone (Relafen) 750 mg tablet Take 750 mg by mouth in the morning. olmesartan (BENIcar) 20 mg tablet Take 40 mg by mouth in the morning. pantoprazole (ProtoNix) 40 mg EC tablet Take 40 mg by mouth before breakfast. potassium chloride CR (Klor-Con) 10 mEq ER tablet Take 10 mEq by mouth in the morning. solifenacin (VESIcare) 10 mg tablet Take 10 mg by mouth in the morning. temazepam (Restoril) 30 mg capsule if needed at bedtime. hyoscyamine (Anaspaz,Levsin) 0.125 mg tablet Take 1 tablet (0.125 mg) by mouth every 6 (six) hours if needed for cramping for up to 5 days. 20 tablet 0 No current facility-administered medications on file prior to visit. Physical Exam: Constitutional: Appearance: Normal appearance. Without apparent distress HENT: Head: Normocephalic and atraumatic. Nose: Nose normal. Mouth/Throat: Mouth: Mucous membranes are moist. Eyes: Extraocular Movements: Extraocular movements intact. Conjunctiva/sclera: Conjunctivae normal. Neck: Vascular: No JVD. Cardiovascular: Rate and Rhythm: Normal rate and regular rhythm. Pulses: Dorsalis pedis pulses are 3 on the right side and 3on the left side. Posterior tibial pulses are 3 on the right side and 3 on the left side. Heart sounds: Normal heart sounds, S1 normal and S2 normal. Pulmonary: Effort: Pulmonary effort is normal. Breath sounds: Normal breath sounds. Abdominal: General: Bowel sounds are normal. Palpations: Abdomen is soft. Musculoskeletal: General: Normal range of motion. Cervical back: Normal range of motion. Right lower leg: No edema. Left lower leg: No edema. Skin: General: Skin is warm and dry. Capillary Refill: Capillary refill takes less than 2 seconds. Neurological: General: No focal deficit present. Mental Status: She is alert and oriented to person, place, and time. Psychiatric: Mood and Affect: Mood normal. Behavior: Behavior normal. Thought Content: Thought content normal. Judgment: Judgment normal. Labs: 01/02/24 Bun 15, Cr 1.00 GFR > 60- normal renal function, K+ and NA normal 11/22/23- CBC normal Renal function stable LFT mildly elevated AST- 56, ALT 69, ALP 88 Last lab values have been reviewed CV Testing: EKG today 02/09/24- normal sinus rhythm, non specific T wave abnormality Abnormal ECG- Essentially unchanged from previous- 03/06/23 01/11/24 TTE CVL report 06/11/2020 HEMODYNAMICS: RA 4, RV 27/1, 4, PA [...] large and nondominant vessel. It is angiographically normal.Right coronary artery: This arises from the right coronary cusp. It is a large and dominant vessel. It has disease in aneurysmal dilatation in the proximal to mid segment, but is otherwise free of disease. SUMMARY OF FINDINGS: 1. Coronary artery disease with aneurysmal dilatation of the proximal t (more content not included)... [facility] 02-09-2024 Note Patient here for fol low up Holter monitor and echo. Says her BP has been good. Still has chest discomfort and feels her heart is pounding with exertion. Review of Systems Cardiovascular: Positive for chest pain ( discomfort , intermittent), dyspnea on exertion, irregular heartbeat, leg swelling and palpitations. Respiratory: Positive for shortness of breath. Musculoskeletal: Positive for arthritis, back pain, joint pain and myalgias. All other systems reviewed and are negative. [facility] 01-10-2024 Note Satisfactory for michele luation. Examination of the ThinPrep slide reveals a hypocellular specimen consisting of benign urothelial cells and squamous cells. [facility] Comment on above: Order Comment: Via c ysto Performed By: #### L [id number] #### [facility] ([facility]) [address] [place] [address] 01-10-2024 Note Patient ID: Daniella Bejarano is a 63 y.o. female. Cystoscopy Date/Time: 01/10/2024 2:20 PM Performed by: Lisa Zelaya MD Authorized [...] lateral wall noted with evidence of scarring. No evidence of scattered erythematous lesions noted on prior cystoscopy, likely inflammation induced by intravesical chemotherapy. Urine cytology obtained. Procedure The patient was [...] room for the entire procedure. [facility] 01-10-2024 Note I PATIENT: Daniella Bejarano DATE OF : 1960 DATE OF VISIT: 01/10/24 Urology Clinic H&P LISA ZELAYA M.D., F.A.C.S. [...] recurrent bladder tumor. Pathology revealed high-grade noninvasive senior advisory, muscularis propria present and uninvolved. - 01/26/2022: [...] diagnosis bilaterally. Therefore she was referred to ks for further management. Ms. Bejarano underwent white [...] th (more content not included)... [facility] 01-02-2024 Note 2-3 day holter monit or today to assess for any arrythmias, PVC burden Check BMP and mag level today to assess electrolyte level She may benefit from beta neal dependent upon holter results [facility] 01-02-2024 Note C/O worsening SOB wi th exertion and edema, will check echocardiogram to assess cardiac function, RV function and rt sided pressures, valvular function [facility] 01-02-2024 Note stable [facility] 01-02-2024 Note Hypertension is well controlled currently 124/80 Continue olmesartan 40 mg daily. Depending upon holter monitor result she may benefit from a beta neal for frequent PVCs and palpitations [facility] 01-02-2024 Note [facility] CARDIOLOGY PROGR ESS NOTE HPI: Daniella Bejarano is a 63 y.o. female here for routine F/U HPI 63 yo female presents today for F/U, last visit was in 2021, PMH: Dyslipidemia,Obesity, Palpitations, Aneurysm of coronary vessel-RCA, Essential hypertension, Dyspnea on exertion Patient here c/o SOB, LE edema, and intermittent palpitations. Last echo was performed in Oct 2021. PCP increased her olmesartan a year or so ago to 40mg daily. Just returned from a 10 day cruise, states she did not take lasix but 1 day on her cruise. States increased SOB and leg swelling have progressively worsened over the last couple months. 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 Review of Systems Cardiovascular: Positive for chest pain ( discomfort , intermittent), dyspnea on exertion, irregular heartbeat, leg swelling and palpitations. Respiratory: Positive for shortness of breath. Musculoskeletal: Positive for arthritis, back pain, joint pain and myalgias. All other systems reviewed and are negative Visit Vitals BP 124/80 (BP Location: Left arm, Patient Position: Sitting) Pulse 72 Ht 1.651 m (5' 5 ) Wt 121 kg (267 lb) SpO2 95% BMI 44.43 kg/m??? OB Status Postmenopausal Smoking Status Former BSA 2.36 m??? Allergies Allergen Reactions Oxycodone-Acetaminophen Headache and Hives Medications: Current Outpatient Medications on File Prior to Visit Medication Sig Dispense Refill aspirin 81 mg EC tablet Take 81 mg by mouth in the morning. calcium carb-vitamin D3-vit K2 600 mg-1,000 unit-90 mcg tablet 1 (one) time each day at the same time. cyclobenzaprine (Flexeril) 10 mg tablet Take 10 mg by mouth if needed in the morning, at noon, and at bedtime. furosemide (Lasix) 40 mg tablet Take 20 mg by mouth in the morning. nabumetone (Relafen) 750 mg tablet Take 750 mg by mouth in the morning. olmesartan (BENIcar) 20 mg tablet Take 40 mg by mouth in the morning. pantoprazole (ProtoNix) 40 mg EC tablet Take 40 mg by mouth before breakfast. potassium chloride CR (Klor-Con) 10 mEq ER tablet Take 10 mEq by mouth in the morning. solifenacin (VESIcare) 10 mg tablet Take 10 mg by mouth in the morning. temazepam (Restoril) 30 mg capsule if needed at bedtime. hyoscyamine (Anaspaz,Levsin) 0.125 mg tablet Take 1 tablet (0.125 mg) by mouth every 6 (six) hours if needed for cramping for up to 5 days. 20 tablet 0 [DISCONTINUED] ergocalciferol (Vitamin D-2) 1.25 MG (17844 Units) capsule Take by mouth. [DISCONTINUED] oxybutynin XL (Ditropan-XL) 10 mg 24 hr tablet Take 10 mg by mouth in the morning. [DISCONTINUED] potassium chloride 10 mEq/100 mL IVPB as directed Intravenous as needed No current facility-administered medications on file prior to visit. Physical Exam: Constitutional: Appearance: Normal appearance. Without apparent distress, obese HENT: Head: Normocephalic and atraumatic. Nose: Nose normal. Mouth/Throat: Mouth: Mucous membranes are moist. Eyes: Extraocular Movements: Extraocular movements intact. Conjunctiva/sclera: Conjunctivae normal. Neck: Vascular: No JVD. Cardiovascular: Rate and Rhythm: Normal rate and regular rhythm. Pulses: Dorsalis pedis pulses are 3 on the right side and 3on the left side. Posterior tibial pulses are 3 on the right side and 3 on the left side. Heart sounds: Normal heart sounds, S1 normal and S2 normal. Pulmonary: Effort: Pulmonary effort is normal. Breath sounds: Normal breath sounds. Abdominal: General: Bowel sounds are normal. Palpations: Abdomen is soft. Musculoskeletal: General: Normal range of motion. Cervical back: Normal range of motion. Right lower leg: No edema. Left lower leg: No edema. Skin: General: Skin is warm and dry. Capillary Refill: Capillary refill takes less than 2 seconds. Neurological: General: No focal deficit present. Mental Status: She is alert and oriented to person, place, and time. Psychiatric: Mood and Affect: Mood normal. Behavior: Behavior normal. Thought Content: Thought content normal. Judgment: Judgment normal. Labs: 11/22/2023 CBC normal, renal function stable, liver function normal, Ref Range & Units 1 mo ago [facility] WBC 4.0 - 11.0 10 3/uL 5.8 [facility] RBC 4.20 - 5.40 10 6/uL 4.41 [facility] HGB 12.0 - 16.0 g/dL 12.0 [facility] HCT 36.0 - 48.0 % 39.0 [facility] MCV 81.0 - 99.0 fL 88.4 [facility] MCH 26.7 - 34.0 pg 27.2 [facility] MCHC 29.9 - 35.2 g/dL 30.8 [facility] RDW 11.0 - 15.0 % 15.4 High [facility] PLT 150 - 450 10 3/uL 176 Ref Range & Units 1 mo ago SODIUM 136 - 145 mmol/L 142 POTASSIUM 3.5 - 5.1 mmol/L 3.9 CHLORIDE 98 - 107 mmol/L 104 CARBON DIOXIDE 21.0 - 32.0 mmol/L 26.2 ANION GAP 15.7 GLUCOSE 74 - 106 mg/dL 156 High BLOOD UREA NITROGEN 7.0 - 18.0 mg/dL 14.0 CREATININE 0.55 - 1.02 mg/dL 1.07 High TBH EGFR-AF NAMIBIAN >=60 >60 TBH EGFR-NON AF NAMIBIAN >=60 51 Low BUN CREATININE RATIO 13.1 CALCIUM 8. (more content not included)... [facility] 01-02-2024 Note Patient here c/o SOB , LE edema, and intermittent palpitations. Last echo was performed in Oct 2021. PCP increased her olmesartan a year or so ago to 40mg daily. Just returned from a 10 day cruise. Review of Systems Cardiovascular: Positive for chest pain ( discomfort , intermittent), dyspnea on exertion, irregular heartbeat, leg swelling and palpitations. Respiratory: Positive for shortness of breath. Musculoskeletal: Positive for arthritis, back pain, joint pain and myalgias. All other systems reviewed and are negative. [facility] 10-04-2023 Note Satisfactory for michele luation. Examination of the ThinPrep slide reveals benign urothelial cells and squamous cells in a background of lubricant. [facility] Comment on above: Order Comment: Argelia reyes Performed By: #### L [id number] #### [facility] ([facility]) [address] [place] [address] 10-04-2023 Note Patient ID: Daniella Bejarano is [...] room for the entire procedure. [facility] 10-04-2023 Note I PATIENT: Daniella Bejarano DATE [...] recurrent bladder tumor. Pathology revealed high-grade noninvasive senior advisory, muscularis propria present and uninvolved. - 01/26/2022: [...] th (more content not included)... [facility] 06-28-2023 Note Satisfactory for michele luation. Examination of the ThinPrep slide reveals squamous cells and scattered urothelial cells in a background of few inflammatory cells and lubricant. [facility] Comment on above: Order Comment: Via jose roberto riverato Performed By: #### L AB13 ####[facility] ([place])[address] [place] [address] 06-28-2023 Note Patient ID: Daniella Bejarano is [...] room for the entire procedure. [facility] 06-28-2023 Note I PATIENT: Daniella Bejarano DATE [...] recurrent bladder tumor. Pathology revealed high-grade noninvasive senior advisory, muscularis propria present and uninvolved. - 01/26/2022: [...] diagnosis bilaterally. Therefore she was referred to ks for further management. Ms. 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 [facility] 06-02-2023 Note Bernarda Hagan RN e xplained [...] Center. Bernarda Hagan RN then informed Infusion switchboard receptionist that Daniella A Neikirk was ready for treatment. [facility] 05-26-2023 Note Danielle Briggs MA expl ained [...] [place] [id number] down to the Infusion Center. Danielle Briggs MA then informed Infusion switchboard receptionist that Daniella A Neikirk was ready for treatment. [facility] 05-19-2023 Note 7991 Zaria Jackson exp lained [...] were used to inflate the balloon. Daniella Wallsrmario tolerated the procedure well. After gutierrez was in place, Daniella Perez Neikirk was placed in a wheelchair, given her bag of personal belongings, then transported by [id number] down to the Infusion Center. 7991 then informed Infusion switchboard receptionist that Daniella Wallsrk was ready for treatment. [facility] 05-12-2023 Note 1110 Patient arrived by wheelchair with gutierrez catheter intact, draining clear pale yellow urine. Jose Roberto Rivera RN 1130 Reviewed home care. Drink 60 ounces of fluid over next 24 hours. Flush toilet twice for next 6 hours after each void. Call Dr. Zelaya office if fever greater than 100.4 or blood in urine or chills. Addi TAMAYO 1400 Patient tolerated well, no leaking. Two drugs, at separate times, intravesicular instillations. CPetersRN [facility] 05-12-2023 Note [id number] irizarry ained the procedure to Daniella A Neikirk and Daniella Perez Neikirk verbalized understanding. Daniella Dillikirk was then placed on the exam table in Supine frog leg position, then prepped in sterile fashion using aseptic technique. A 14 fr. coude gutierrez catheter was inserted without complications, adequate urine return was achieved, then 10 ml of sterile water were used to inflate the balloon. Daniella Wallsrk tolerated the procedure well. After gutierrez was in place, Daniella Wallsrk was placed in a wheelchair, given her bag of personal belongings, then transported by [id number] down to the Infusion Center. 7991 then informed Infusion switchboard receptionist that Daniella Wallsrmario was ready for treatment. [facility] 05-05-2023 Note 1040- pt arrived to infusino [...] catheter removed after completely drained. [facility] 05-05-2023 Note Zaria Jackson explaine d the procedure to Daniella A Neikirk and [...] down to the Infusion Center. 7991 Zaria Mayfield then informed Infusion switchboard receptionist that Daniella A Neikirk was ready for treatment. [facility] 04-28-2023 Note Pt arrived with fole y in place from urology clinic draining clear yellow urine. Docetaxel instilled and held 60 minutes, drained to gutierrez bag. Gemcitabine instilled and held 60 minutes, drained to gutierrez bag. Gutierrez removed upon completion, tolerated treatment well. Reviewed home precautions with patient. [facility] 04-28-2023 Note 7991 Zaria Jackson exp lained [...] bag of personal belongings, then transported by [id number] down to the Infusion Center. 7991 then informed Infusion switchboard receptionist that Daniella Bejarano was ready for treatment. [facility] 04-04-2023 Note I PATIENT: Daniella Bejarano [...] recurrent bladder tumor. Pathology revealed high-grade noninvasive senior advisory, muscularis propria present and uninvolved. - 01/26/2022: [...] diagnosis bilaterally. Therefore she was referred to ks for further management. Ms. Bejarano underwent white [...] sometim (more content not included)... [facility] 03-28-2023 Note . [facility] 03-28-2023 Note I PATIENT: Daneilla Bejarano DATE OF : 1960 DATE OF [...] recurrent bladder tumor. Pathology revealed high-grade noninvasive senior advisory, muscularis propria present and uninvolved. - 01/26/2022: [...] diagnosis bilaterally. Therefore she was referred to ks for further management. Ms. Bejarano underwent white [...] noct (more content not included)... [facility] 03-13-2023 Note Patient: Daniella stevens Procedure Summary Date: 03/13/23 Room / Location: [facility]PER[facility]OM 07 / [facility] Operating Room Anesthesia Start: 30 Anesthesia Stop: 845 Procedures: White and Blue-light cystoscopy, BLADDER BIOPSY, FULGURATION X3 Retrograde pyelogram, EUA (Bilateral) Diagnosis: Malignant neoplasm of posterior wall of urinary bladder (CMS/HCC) (Malignant neoplasm of posterior wall of urinary bladder (CMS/HCC) [C67.4]) Surgeons: Lsia Zelaya MD Responsible Provider: Aleksey Barraza MD [...] notable events for this encounter. [facility] 03-13-2023 Note Patient: Daniella stevens Procedure Summary Date: 03/13/23 Room / Location: [facility] 07 / [facility] Operating Room Anesthesia Start: 0730 Anesthesia Stop: [...] uneventful Patient condition is: stable [facility] 03-13-2023 Note Airway Date/Time: 03/13/2023 7:47 AM Urgency: elective Airway not difficult General Information and Staff Patient location during procedure: OR Anesthesiologist: Aleksey Barraza MD Resident/NETWORK ARCHITECT MANAGER/CAA: JOAN Le Performed: other anesthesia staff Indications [...] of other approaches attempted: 0 [facility] 03-13-2023 Note Satisfactory for michele luation. Examination of the ThinPrep slide reveals rare atypical urothelial cells with increased n/c ratio and mild nuclear membrane irregularities. [facility] Comment on above: Order Comment: Pre-o p diagnosis: Malignant neoplasm of posterior wall of urinary bladder (CMS/HCC) [C67.4] Performed By: #### L [id number] #### [facility] ([place]) [address] [place] [address] 03-13-2023 Note Patient: Daniella stevens Procedure Information Date/Time: 03/13/23 0730 Procedures: White and Blue-light cystoscopy, TURBT, Retrograde pyelogram, EUA (Bilateral) - C-Arm, [employer] [place]#[id number], notified reps Location: [facility]PER[facility] 07 / [facility] Operating Room Surgeons: Lisa Zelaya MD Relevant [...] with CAA. Additional Equipment Requests [facility] 02-22-2023 Note Satisfactory for michele luation. Examination of the ThinPrep slide reveals primarily squamous cells with scattered urothelial cells and bacteria. This may represent contamination from the lower female genital tract. [facility] Comment on above: Performed By: #### L [id number] #### [facility] ([place]) [address] [place] [address] 02-22-2023 Note PATIENT: Daniella stevens DATE OF [...] recurrent bladder tumor. Pathology revealed high-grade noninvasive senior advisory, muscularis propria present and uninvolved. - 01/26/2022: [...] past medical history of Arthritis, Bladder cancer ([facility]/HCC), Breast cancer ([facility]/HCC) (2018), GERD (gastroesophageal reflux disease), History of [...] , Rfl: ergocalciferol (Vitamin D-2) 1.25 MG (05485 Units) capsule, Take by mouth., Disp: , [...] carb-vitam (more content not included)... [facility] 01-04-2023 Hospital Discharge instructions Patient Education 01/04/2023 [...] cells. Follow these instructions at home: Take qbyh-kkc-ugdxxxp and prescription medicines only as told by [...] is important. Where to find more information [employer]: www.cancer.org National [employer] (NCI): www.cancer.gov Contact a health care provider [...] 10/18/2004 Document Revised: 09/28/2018 Document Reviewed: 09/19/2017 [employer] Patient Education 2019 [employer]. Follow Up Care 01/02/2023 12:19:37 With:Reza JAMES, ISAIAH Mckeon, URO Address: When: Unknown [facility] 10-19-2022 Hospital Discharge instructions Patient Education 10/19/2022 [...] cells. Follow these instructions at home: Take tlkq-kpy-hsgljiz and prescription medicines only as told by [...] is important. Where to find more information [employer]: www.cancer.org National [employer] (NCI): www.cancer.gov Contact a health care provider [...] 10/18/2004 Document Revised: 09/28/2018 Document Reviewed: 09/19/2017 Elsevier Patient Education 2019 [employer]. [facility] 10-12-2022 Hospital Discharge instructions Patient Education 10/12/2022 [...] cells. Follow these instructions at home: Take xfyi-dit-iplfdti and prescription medicines only as told by [...] is important. Where to find more information [employer]: www.cancer.org National [employer] (NCI): www.cancer.gov Contact a health care provider [...] 10/18/2004 Document Revised: 09/28/2018 Document Reviewed: 09/19/2017 Onzo Patient Education 2020 [employer]. Follow Up Care 08/22/2022 12:52:59 With:Dina Cobb MD, URL, URO Address: When:1 week Comments:BCG #2 of #3 [facility] 10-05-2022 Hospital Discharge instructions Follow Up Care 10/05/2022 15:19:40 With:AI MITCHELL PA-C, URL Address: [address] [place] [address] When: Unknown [facility] 07-06-2022 Hospital Discharge instructions Patient Education [...] cells. Follow these instructions at home: Take dwfn-cgd-luoahdj and prescription medicines only as told by [...] is important. Where to find more information [employer]: www.cancer.org National [employer] (NCI): www.cancer.gov Contact a health care provider [...] 10/18/2004 Document Revised: 09/28/2018 Document Reviewed: 09/19/2017 Onzo Patient Education 2020 [employer]. Follow Up Care 05/18/2022 11:12:11 With:Reza JAMES, ISAIAH Mckeon, URO Address: When: Unknown [facility] 06-29-2022 Hospital Discharge instructions Patient Education [...] cells. Follow these instructions at home: Take ewdh-gyz-jfnhwzy and prescription medicines only as told by [...] is important. Where to find more information [employer]: www.cancer.org National [employer] (NCI): www.cancer.gov Contact a health care provider [...] 10/18/2004 Document Revised: 09/28/2018 Document Reviewed: 09/19/2017 Onzo Patient Education 2020 Mero[employer]te Follow Up Care 05/18/2022 11:11:14 With:Reza JAMES, Dina Oconnell URThao, URO Address: When:Within 1 Week(s) Comments:BCG #3 [facility] 06-22-2022 Hospital Discharge instructions Patient Education [...] cells. Follow these instructions at home: Take mduf-ydh-pkmahou and prescription medicines only as told by [...] is important. Where to find more information [employer]: www.cancer.org National Cancer Redmond (NCI): www.cancer.gov Contact a health care provider [...] 10/18/2004 Document Revised: 09/28/2018 Document Reviewed: 09/19/2017 Onzo Patient Education 2020 [employer]itive. Follow Up Care 05/18/2022 11:09:55 With:Reza JAMES, ISAIAH Mckeon, URO Address: When:1 week Comments:bcg #2 [facility] 05-18-2022 Hospital Discharge instructions Patient Education [...] cells. Follow these instructions at home: Take qeih-xce-tzezdff and prescription medicines only as told by [...] is important. Where to find more information [employer]: www.cancer.org National Cancer Redmond (NCI): www.cancer.gov Contact a health care provider [...] 10/18/2004 Document Revised: 09/28/2018 Document Reviewed: 09/19/2017 Onzo Patient Education Shoor[employer]. Follow Up Care 05/12/2022 12:08:46 With:Reza JAMES, ISAIAH Mckeon, URO Address: When:1 month [facility] 03-17-2022 Hospital Discharge instructions Follow Up Care 03/17/2022 16:12:48 With:Jeff Booth Address: [facility] [place] [address]- [phone] Fax Business 1 When: Unknown Comments:f/u 1 year. no labs. [facility] 03-02-2022 Hospital Discharge instructions Patient Education [...] cells. Follow these instructions at home: Take rpdw-wzs-wznddnb and prescription medicines only as told by [...] is important. Where to find more information [employer]: www.cancer.org National Cancer Redmond (NCI): www.cancer.gov Contact a health care provider [...] 10/18/2004 Document Revised: 09/28/2018 Document Reviewed: 09/19/2017 Onzo Patient Education 2020 [employer]itive. Follow Up Care 12/29/2021 09:06:11 With:AI MITCHELL PA-C, ISAIAH Address: [address] [place] [place] [address] When: Unknown Comments:follow up after cysto with [facility] 02-09-2022 Hospital Discharge instructions Patient Education [...] cells. Follow these instructions at home: Take wfku-nfj-mtobfqs and prescription medicines only as told by [...] is important. Where to find more information [employer]: www.cancer.org National Cancer Redmond (NCI): www.cancer.gov Contact a health care provider [...] 10/18/2004 Document Revised: 09/28/2018 Document Reviewed: 09/19/2017 Onzo Patient Education 2020 Mero[employer]te Follow Up Care 12/29/2021 09:03:01 With:Reza JAMES, ISAIAH Mckeon, URO Address: When: Unknown [facility] 02-02-2022 Hospital Discharge instructions Patient Education [...] cells. Follow these instructions at home: Take kqgf-lsf-hjecjfg and prescription medicines only as told by [...] is important. Where to find more information [employer]: www.cancer.org National Cancer Redmond (NCI): www.cancer.gov Contact a health care provider [...] 10/18/2004 Document Revised: 09/28/2018 Document Reviewed: 09/19/2017 Onzo Patient Education 2020 [employer]itive. Follow Up Care 12/29/2021 09:02:14 With:Reza JAMES, ISAIAH Mckeon, URO Address: When: Unknown [facility] 01-26-2022 Hospital Discharge instructions Patient Education [...] cells. Follow these instructions at home: Take xrnf-aml-zahvroo and prescription medicines only as told by [...] is important. Where to find more information [employer]: www.cancer.org National Cancer Redmond (NCI): www.cancer.gov Contact a health care provider [...] 10/18/2004 Document Revised: 09/28/2018 Document Reviewed: 09/19/2017 Onzo Patient Education 2020 [employer]itive. Follow Up Care 12/29/2021 08:59:52 With:Dina Cobb MD, URL, URO Address: [address] [place], [place] [address] [place] [address] [phone] Business (1) When: Unknown [facility] Evaluation + Plan note Future Appointments Appointment Date:02/02/2022 08:00:00 AM Scheduled Provider:Dina Cobb MD Location:[facility] Appointment Type:URO Office Visit Appointment Date:02/09/2022 08:00:00 AM Scheduled Provider:Dina Cobb MD Location:[facility] Appointment Type:URO Office Visit Appointment Date:02/16/2022 08:00:00 AM Scheduled Provider:Dina Cobb MD Location:[facility] Appointment Type:URO Office Visit Appointment Date:02/23/2022 08:00:00 AM Scheduled Provider:Dina Cobb MD Location:[facility] Appointment Type:URO Office Visit Appointment Date:03/02/2022 09:30:00 AM Scheduled Provider:Dina Cobb MD Location:[facility] Appointment Type:URO Office Visit Appointment Date:03/17/2022 03:00:00 PM Scheduled Provider:Jeff Booth DO Location:[facility] Appointment Type:ONC Office Visit New 30 (FT) [facility] Evaluation + Plan note Future Appointments Appointment Date:02/02/2022 08:00:00 AM Scheduled Provider:Dina Cobb MD [facility] Appointment Type:URO Office Visit Appointment Date:02/09/2022 08:00:00 AM Scheduled Provider:Dina Cobb MD Location:[facility] Appointment Type:URO Office Visit Appointment Date:02/16/2022 08:00:00 AM Scheduled Provider:Dina Cobb MD Location:[facility] Appointment Type:URO Office Visit Appointment Date:02/23/2022 08:00:00 AM Scheduled Provider:Dina Cobb MD Location:[facility] [place] Appointment Type:URO Office Visit Appointment Date:03/02/2022 09:30:00 AM Scheduled Provider:Dina Cobb MD Location:[facility] Appointment Type:URO Office Visit Appointment Date:03/17/2022 03:00:00 PM Scheduled Provider:Jeff Booth DO Location:.ONCOLOGY Appointment Type:ONC Office Visit New 30 (FT) Diagnostic Tests PendingUrine Culture 01/26/22 [facility] Evaluation + Plan note Future Appointments Appointment Date:02/09/2022 08:00:00 AM Scheduled Provider:Dina Cobb MD Location:[facility] [place] Appointment Type:URO Office Visit Appointment Date:02/16/2022 08:00:00 AM Scheduled Provider:Dina Cobb MD Location:[facility] [place] Appointment Type:URO Office Visit Appointment Date:02/23/2022 08:00:00 AM Scheduled Provider:Dina Cobb MD Location:[facility] Appointment Type:URO Office Visit Appointment Date:03/02/2022 09:30:00 AM Scheduled Provider:Dina Cobb MD Location:[facility] [place] Appointment Type:URO Office Visit Appointment Date:03/17/2022 03:00:00 PM Scheduled Provider:Jeff Booth DO Location:[facility] Appointment Type:ONC Office Visit New 30 (FT) [facility] Evaluation + Plan note Future Appointments Appointment Date:02/16/2022 08:00:00 AM Scheduled Provider:Dina Cobb MD Location:[facility] Appointment Type:URO Office Visit Appointment Date:02/23/2022 08:00:00 AM Scheduled Provider:Dina Cobb MD Location:[facility] Appointment Type:URO Office Visit Appointment Date:03/02/2022 09:30:00 AM Scheduled Provider:Dina Cobb MD Location:[facility] Appointment Type:URO Office Visit Appointment Date:03/17/2022 03:00:00 PM Scheduled Provider:Jeff Booth DO Location:[facility] Appointment Type:ONC Office Visit New 30 (FT) [facility] Evaluation + Plan note Future Appointments Appointment Date:03/17/2022 03:00:00 PM Scheduled Provider:Jeff Booth DO Location:[facility] Appointment Type:ONC Office Visit New 30 (FT) [facility] Evaluation + Plan note Future Appointments Appointment Date:03/15/2023 12:30:00 PM Scheduled Provider:Jeff Booth DO Location:[facility] Appointment Type:ONC Office Visit 15 (FT) Diagnostic Tests PendingUrine Culture 03/25/22 [facility] Evaluation + Plan note Future Appointments Appointment Date:03/15/2023 12:30:00 PM Scheduled Provider:Jeff Booth DO Location:[facility] Appointment Type:ONC Office Visit 15 (FT) [facility] Evaluation + Plan note Future Appointments Appointment Date:06/22/2022 10:15:00 AM Scheduled Provider:Dina Cobb MD Location:[facility] Appointment Type:URO Office Visit Appointment Date:06/29/2022 10:15:00 AM Scheduled Provider:Dina Cobb MD Location:[facility] Appointment Type:URO Office Visit Appointment Date:07/06/2022 10:15:00 AM Scheduled Provider:Dina Cobb MD Location:[facility] Appointment Type:URO Office Visit Appointment Date:03/15/2023 12:30:00 PM Scheduled Provider:Jeff Booth DO Location:[facility] Appointment Type:ONC Office Visit 15 (FT) [facility] Evaluation + Plan note Future Appointments Appointment Date:06/29/2022 07:45:00 AM Scheduled Provider:Dina Cobb MD Location:[facility] Appointment Type:URO Office Visit Appointment Date:07/06/2022 10:15:00 AM Scheduled Provider:Dina Cobb MD Location:[facility] Appointment Type:URO Office Visit Appointment Date:03/15/2023 12:30:00 PM Scheduled Provider:Jeff Booth DO Location:.ONCOLOGY Appointment Type:ONC Office Visit 15 (FT) [facility] Evaluation + Plan note Future Appointments Appointment Date:07/06/2022 10:15:00 AM Scheduled Provider:Dina Cobb MD Location:[facility] Appointment Type:URO Office Visit Appointment Date:03/15/2023 12:30:00 PM Scheduled Provider:Jeff Booth DO Location:[facility] Appointment Type:ONC Office Visit 15 (FT) Diagnostic Tests PendingBUN 06/29/22Creatinine 06/29/22 [facility] Evaluation + Plan note Future Appointments Appointment Date:10/19/2022 08:00:00 AM Scheduled Provider:Dina Cobb MD Location:[facility] Appointment Type:URO Office Visit Appointment Date:10/26/2022 10:30:00 AM Scheduled Provider:AI MITCHELL PA-C Location:[facility] Appointment Type:URO Office Visit Appointment Date:03/15/2023 12:30:00 PM Scheduled Provider:Jeff Booth DO Location:[facility] Appointment Type:ONC Office Visit 15 (FT) [facility] Evaluation + Plan note Future Appointments Appointment Date:10/26/2022 10:30:00 AM Scheduled Provider:AI MITCHELL PA-C Location:[facility] Appointment Type:URO Office Visit Appointment Date:03/15/2023 12:30:00 PM Scheduled Provider:Jeff Booth DO Location:[facility] Appointment Type:ONC Office Visit 15 (FT) [facility] Evaluation + Plan note Future Appointments Appointment Date:03/15/2023 12:30:00 PM Scheduled Provider:Jeff Booth DO Location:[facility] Appointment Type:ONC Office Visit 15 (FT) Diagnostic Tests PendingUrine Culture 12/14/22 [facility] Evaluation + Plan note Future Appointments Appointment Date:04/24/2024 11:00:00 AM Scheduled Provider:Jeff Booth DO Location:[facility] Appointment Type:ONC Office Visit 15 (FT) [facility] Evaluation note No assessment inform ation available [facility] Work Phone: Hospital course Narrative No data available for this section [facility] Hospital Discharge instructions No data available for this section [facility] Progress note No data available for this section [facility] Summary Purpose Family History No Family History [...] section and content) DATE CREATED AUTHOR 06/24/2020 [facility] DATE CREATED AUTHOR AUTHOR'S ORGANIZ ATION 09/01/2020 [facility] DATE CREATED AUTHOR AUTHOR'S ORGANIZ ATION 11/21/2020 [facility] DATE CREATED AUTHOR AUTHOR'S ORGANIZ ATION 03/09/2023 [facility] DATE CREATED AUTHOR AUTHOR'S ORGANIZ ATION 06/28/2023 [facility] DATE CREATED AUTHOR AUTHOR'S ORGANIZ ATION 08/05/[address] [facility] DATE CREATED AUTHOR AUTHOR'S ORGANIZ ATION 01/28/2024 [facility] DATE CREATED AUTHOR AUTHOR'S ORGANIZ ATION 02/10/2024 [facility] Care Team (unrecognized sect ion and content) Personnel Name: BAYRON SINGH MD Address: [address] [place] [address] Personnel Name: BAYRON SINGH MD Address: [address] [place] [address] Personnel Name: BAYRON SINGH MD Address: [address] [place] [address] Personnel Name: BAYRON SINGH MD Address: [address] [place] [address] Personnel Name: BAYRON SINGH MD Address: Address: [address] [place] [address] Personnel Name: BAYRON SINGH MD Address: Address: [address] [place] [address] Personnel Name: BAYRON SINGH MD Address: Address: [address] [place] [address] Personnel Name: BAYRON SINGH MD Address: Address: [address] [place] [address] Personnel Name: BAYRON SINGH MD Address: Address: [address] [place] [address] Personnel Name: BAYRON SINGH MD Address: Address: [address] [place] [address] Personnel Name: BAYRON SINGH MD Address: Address: [address] [place] [address] [place] Goals (unrecognized section and content) Goals may [...] BE BASED ON THE PRIMARY CLINICAL RECORDS. [facility] [employer] [facility]. provides no warranty or guarantee of the accuracy or completeness of information in this document.
[2024-02-13 09:37] VITALS: BP 110/63; PULSE 97; TEMP 36.3; O2SAT 98; BMI 45.3
[2024-02-13] MEDS: LACTATED RINGER'S SOLUTION 1,000 ML 50 ML IV (09:58)
[2024-02-13 12:25] VITALS: BP 126/78; PULSE 75; TEMP 36.8; O2SAT 99
[2024-02-13 12:40] VITALS: BP 126/70; PULSE 79; O2SAT 97
[2024-02-13 13:00] VITALS: BP 139/90; PULSE 55; O2SAT 97
--- NOTE | 2024-02-13 16:25 | PM.GSPRC ---
Date of procedure: 02/13/24 Indications for Procedure: + fit test, Hx of bladder cancer Pre-op diagnosis: + fit test, Hx of bladder cancer Post-op diagnosis: other (cecal polyps X2, smith diverticulosis ) Procedure: diagnostic colonoscopy with cold snare biopsy of cecal polyps x2 Previous colonoscopy: never PROCEDURE: The patient was given IV conscious sedation.? The patient's SPO2 remained above 90% throughout the procedure. The colonoscope was inserted per rectum and advanced under direct vision to the cecum wihtout difficulty.? The prep was fair? Findings: Terminal ileum os: normal Cecum/Ascending colon: 2 subcentimeter polyps biopsied with cold snare, diverticulosis Transverse colon: diverticulosis Descending/Sigmoid colon: diverticulosis Rectum/Anus: examined in normal and retroflexed positions and was noraml Withdrawal Time was (minutes): 15 The colon was decompressed and the scope was removed.? The patient tolerated the procedure well. Recommendations/Plan: 1.? Lifestyle and dietary modifications as discussed 2.? F/U Biopsies 3.? F/U colonoscopy to be determined by biopsy results, will see patient in clinic 4.? Discussed with the family Findings: 2 subcentimeter cecal polyps Anesthesia: MAC Surgeon: Elver Lutz Procedure Summary: diagnostic colonoscopy with cold snare biopsy of cecal polyps x2, Estimated blood loss (mL): 2 Specimens: as above Complications: No Pathology: other (cecal polyps x2) Condition: stable Disposition: PACU
== END 2024-02-13 13:00 | disposition home or self-care (01) ==
PROVIDERS: PCP Family Medicine; Visit Provider Surgery
PROC: (CPT 811; principal; 2024-02-13 10:35)
DX: R19.5 Other fecal abnormalities (principal); D12.0 Benign neoplasm of cecum; Z85.3 Personal history of malignant neoplasm of breast; K57.30 Diverticulosis of large intestine without perforation or abscess without bleeding; Z85.038 Personal history of other malignant neoplasm of large intestine; Z79.82 Long term (current) use of aspirin; Z79.899 Other long term (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; Z85.51 Personal history of malignant neoplasm of bladder; M17.11 Unilateral primary osteoarthritis, right knee; I87.2 Venous insufficiency (chronic) (peripheral); K21.9 Gastro-esophageal reflux disease without esophagitis; Z90.710 Acquired absence of both cervix and uterus; Z90.13 Acquired absence of bilateral breasts and nipples; Z90.49 Acquired absence of other specified parts of digestive tract; Z96.653 Presence of artificial knee joint, bilateral; G47.33 Obstructive sleep apnea (adult) (pediatric); I10 Essential (primary) hypertension; Z87.891 Personal history of nicotine dependence; Z87.440 Personal history of urinary (tract) infections
CPT/HCPCS: 45385; 88305; 99999; J1094; J2704

== ENCOUNTER 2024-03-06 07:37 | Outpatient (RCR) | payer BC, SELFPAY ==
[2024-03-06 09:50] VITALS: BP 121/74; PULSE 86; TEMP 36; O2SAT 97
[2024-03-06] MEDS: WATER FOR INJECTION STERILE INTRAVESIC (10:06)
[2024-03-06] MEDS: GEMCITABINE HCL INTRAVESIC (10:06)
--- NOTE | 2024-03-06 10:30 | PC.NURSE ---
0950: Pt. to [facility] amb. for monthly bladder treatments. VSS. Pt to supine position. Denies c/o pain or burning with urination. Using sterile technique, #16 fr. christian cath inserted in to bladder easily with immediate return of 100cc clear yellow urine. Pt. tolerated with minimal c/o discomfort. 1006: Gemzar, 1000mg, instilled into bladder slowly. Christian drainage bag removed, catheter plugged. Instructed pt. to turn side to side and front to back every 15min. x's 1 hour. Pt. relays understanding. 1020: Pt. denies c/o. Turning as instructed.
--- NOTE | 2024-03-06 11:06 | PC.NURSE ---
1106: Gutierrez bag re-connected to catheter. Bladder emptied for 150cc clear yellow urine/medication. Pt. tolerates with min. c/o. Requests to stand up and take a break . Assisted to standing position.
[2024-03-06] MEDS: DOCETAXEL INTRAVESIC (11:11)
[2024-03-06] MEDS: SODIUM CHLORIDE 0.9% INTRAVESIC (11:11)
--- NOTE | 2024-03-06 11:30 | PC.NURSE ---
1111: Pt. returns to supine position. Christian drainage bag remove. Bladder instilled with Docetaxel, 37.5mg. Drainage bag removed, christian plugged. Reminded pt. to turn every 15 min. x's 1hr. Relays understanding.
--- NOTE | 2024-03-06 12:43 | PC.NURSE ---
1125: Tolerating intravesicular chemo without c/o. Cont. turning as instructed. 1211: Treatment completed at this time. Bladder emptied for 400cc clear yellow urine/med. Gutierrez cath removed, pt tolerated without c/o. Given wash cloth for pamela care. 1223: VSS. Pt. without c/o. D/c'd to home amb.
== END 2024-03-29 23:59 | disposition home or self-care (01) ==
LOC: INF 07:37
PROVIDERS: PCP Family Medicine
DX: C67.4 Malignant neoplasm of posterior wall of bladder (principal)
CPT/HCPCS: 51700; J9171; J9201

== ENCOUNTER 2024-04-01 07:29 | Outpatient (RCR) | payer BC, SELFPAY ==
[2024-04-01 09:54] VITALS: BP 148/75; PULSE 73; TEMP 36.8
--- NOTE | 2024-04-01 10:23 | PC.NURSE ---
0954: Pt. to [facility] amb for monthly treatment. VSS. Pt. to supine position on bed. Using sterile technique, #16Fr. christian cath inserted easily with immediate return of clear yelllow urine. Pt. tolerated without c/o discomfort. Warm blanket provided. Pt. denies needs or c/o.
[2024-04-01] MEDS: GEMCITABINE HCL INTRAVESIC (10:42)
[2024-04-01] MEDS: WATER FOR INJECTION STERILE INTRAVESIC (10:42)
--- NOTE | 2024-04-01 10:47 | PC.NURSE ---
1042: Gemcitabine 1,000mg instilled into bladder at this time. Catheter plugged. Instructed pt. to turn side to side and front to back every 15min. x's 1hr. Pt. relays understanding. Relays comfort.
--- NOTE | 2024-04-01 11:24 | PC.NURSE ---
1055: Pt. without c/o discomfort. Turning side to side as instructed. Denies needs. Warm blanket provided. 1122: Pt. calls out states my bladder feels like it's going to burst! . States unable to finish Gemcitabine treatment. Gutierrez cath. re-connected. Bladder emptied for 300cc clear yellow urine/med. Pt requests to stand for several minutes before initiating next treatment. Assisted pt. to standing position.
[2024-04-01] MEDS: DOCETAXEL INTRAVESIC (11:33)
[2024-04-01] MEDS: SODIUM CHLORIDE 0.9% INTRAVESIC (11:33)
--- NOTE | 2024-04-01 11:58 | PC.NURSE ---
1133: Bladder instilled with Docetaxel 37.5mg. Reminded pt. to turn side to side and front to back Q15min x's 1 hr as directed. Pt. relays understanding. Relays comfort.
--- NOTE | 2024-04-01 12:02 | PC.NURSE ---
1200: Tolerating intravesicular treatment without c/o. Denies needs.
[2024-04-01 12:43] VITALS: BP 144/72; PULSE 68; TEMP 36.8; O2SAT 99
--- NOTE | 2024-04-01 12:56 | PC.NURSE ---
1233: Intravesicular treatment completed at this time. Gutierrez bag re-connected. 200cc clear yellow urine/med drained from bladder. Gutierrez cath d/c'd at this time. Kala care provided. Pt. tolerated treatment without c/o. 1243: Pt. d/c'd amb. to home.
== END 2024-04-08 14:11 | disposition home or self-care (01) ==
LOC: INF 07:29
PROVIDERS: PCP Family Medicine
DX: C67.4 Malignant neoplasm of posterior wall of bladder (principal)
CPT/HCPCS: 51700; J9171; J9201

== ENCOUNTER 2024-04-24 11:11 | Outpatient (OUT) | payer BC, SELFPAY ==
--- OUTSIDE RECORDS SUMMARY | 2024-04-24 11:24 | XMS_ITS ---
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 Name Role Phone UNKNOWN, PROVIDER Admitting Unavailable UNKNOWN, PROVIDER Attending Unavailable SELF, REFERRED Referring Unavailable BAYRON SINGH Primary Care Unavailable BAYRON SINGH Primary Care Physician LUE ., DINA M Attending Unavailable LUE ., DINA M Admitting Unavailable LUE ., DINA M Consulting Unavailable NADERER, DR BAYRON Perez Primary Care Unavailable LUE ., DINA Nedra Attending Unavailable LUE ., DINA M Admitting Unavailable VICHY, DR SPARKLE Napoles Consulting Unavailable NADERER, DR [...] Admitting Unavailable ALVAREZ, DR PAUL Attending Unavailable ALVAERZ, DR PAUL Consulting Unavailable LUE ., DINA [...] Lue, Dina Oconnell Attending Unavailable Lue, Dina MArthur Attending Unavailable Adamowicz, Jeff Attending Unavailable Adamowicz, Jeff Admitting Unavailable AmariDemondnette A Admitting Unavailable MortonBlanca A Attending Unavailable Lue, Dina Oconnell Attending Unavailable LueDina MArthur Admitting Unavailable Lue, Dina MArthur Attending Unavailable Reza, Dina MArthur Attending Unavailable MD Bayron Singh Primary Care Provider Jeff Lutz Attending Provider BAYRON SINGH Attending Unavailable TASHA, MYRNA Attending Unavailable SHANTAEREBAYRON Narvaez Referring Unavailable Tasha, Jeff Attending Unavailable Jeff Lutz Admitting Unavailable Bayron Singh Primary Care Unavailable DIETER, FIRAS Referring Unavailable NAWRAS, ALI Admitting Unavailable NAWRAS, ALI Attending Unavailable TASHA, MYRNA Referring Unavailable DIETER, FIRAS Referring Unavailable DIETER, FIRAS Referring Unavailable DIETER, FIRAS Attending Unavailable DIETER, FIRAS Referring Unavailable JEREMIAH, OZZY Attending Unavailable DIETER, FIRAS Attending Unavailable DIETER, FIRAS Attending Unavailable DIETER, FIRAS Attending Unavailable JEREMIAH, OZZY Attending Unavailable DIETER, FIRAS Referring Unavailable DIETER, FIRAS Referring Unavailable Allergies Allergy Classification Reported Allergen(s) Allergy Type Date of Onset Reaction(s) Facility (19 sources) Acetaminophen / oxyCODONE; 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: [acetaminophen-ox ycodone] Drug Allergy Headache (finding) [facility] (1 source) Acetaminophen / oxyCODONE Drug Allergy 9 [facility] (1 source) Acetaminophen / oxyCODONE; 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: [OXYCODONE-ACETAM INOPHEN] Drug Allergy 3 [facility] Repository Encounters Encounter Date Encounter Type Care Provider Facility Start: 04-10-2024 End: 04-10-2024 ambulatory LISA ZELAYA [facility] Start: 03-19-2024 End: 03-19-2024 ambulatory JENN NAWRDEREK [facility] Start: 02-14-2024 End: 02-14-2024 ambulatory MD Bayron Singh Work Phone: [facility] Work Phone: Start: 02-14-2024 End: 02-14-2024 Departed Referred MD Bayron Singh Work Phone: [facility] Start: 02-13-2024 End: 02-13-2024 ambulatory [facility] Lutz [facility] Start: 02-09-2024 End: 02-09-2024 ambulatory [facility] Start: 02-09-2024 End: 02-09-2024 Encounter for preprocedural cardiovascular examination [facility] Start: 01-24-2024 End: 01-25-2024 ambulatory MYRNA TASHA Not Available Start: 01-10-2024 ambulatory [facility] Start: 01-02-2024 End: 01-02-2024 ambulatory [facility] Start: 11-15-2023 End: 11-15-2023 ambulatory BAYRON SINGH Not Available Start: 10-04-2023 ambulatory [facility] Start: 06-28-2023 End: 06-28-2023 ambulatory [facility] Start: 06-02-2023 End: 06-02-2023 [facility] Start: 05-26-2023 End: 05-26-2023 ambulatory [facility] Start: 05-19-2023 End: 05-19-2023 ambulatory [facility] Start: 05-16-2023 ambulatory AI E RUY Facili ty:[facility] Start: 05-12-2023 End: 05-12-2023 ambulatory [facility] Start: 05-09-2023 ambulatory AI E RUY Facili ty:[facility] Start: 05-05-2023 End: 05-05-2023 ambulatory [facility] Start: 04-28-2023 End: 04-28-2023 ambulatory LISA ZELAYA [facility] Start: 04-26-2023 End: 04-27-2023 ambulatory Jeff Booth Facility[facility] Start: 04-26-2023 End: 04-26-2023 Patient encounter procedure Jeff Booth [facility] Start: 04-25-2023 ambulatory AI Vergara ty:[facility] Start: 03-08-2023 Encounter for genera l adult medical examination without abnormal findings DR BAYRON SINGH [facility] Start: 03-06-2023 End: 03-07-[address] BAYRON SINGH Facility:[facility] Start: 03-02-2023 End: 03-03-[address] BAYRON SINGH Facility:[facility] Start: 03-02-2023 End: 03-03-2023 Encounter for general adult medical examination without abnormal findings DR BAYRON SINGH Facility: Start: 01-04-2023 End: 01-05-2023 ambulatory Dina Cobb Facility:[facility] Start: 01-04-2023 End: 01-04-2023 Patient encounter procedure Dina Lozadae [facility] Start: 01-02-2023 ambulatory Dina M. Lue Facility:[facility] Start: 12-28-2022 End: 12-29-2022 ambulatory DINA M LUE . Facility: Start: 12-25-2022 Encounter for preprocedural cardiovascular examination DINAROMULO LOZADAE . [facility] Start: 12-21-2022 End: 12-22-2022 ambulatory DINA M LUE . Facility: Start: 12-21-2022 End: 12-22-2022 Encounter for preprocedural cardiovascular examination DINA M LUE . Facility: Start: 12-14-2022 End: 12-15-2022 ambulatory Blanca Fitzpatrick Facility[facility] Start: 12-14-2022 End: 02-15-2023 Lab Drop off Blanca Fitzpatrick [facility] Start: 12-14-2022 End: 12-14-2022 Patient encounter procedure Dina M. Lue [facility] Start: 12-07-2022 End: 12-08-2022 ambulatory DINA COBB . Facility:[facility] Start: 11-23-2022 End: 11-24-[address] BAYRON SINGH Facility:[facility] Start: 11-05-2022 End: 11-05-[address] BAYRON SINGH Facility:[facility] Start: 10-28-2022 ambulatory Dina Lozadae Facility:[facility] Start: 10-26-2022 End: 10-26-2022 Patient encounter procedure AI MITCHELL [facility] Start: 10-26-2022 End: 10-27-2022 ambulatory AI MITCHELL Facility:[facility] Start: 10-19-2022 End: 10-20-2022 ambulatory Dina M. Lue Facility:[facility] Start: 10-19-2022 End: 10-19-2022 Patient encounter procedure Dina M. Lue [facility] Start: 10-12-2022 End: 10-13-2022 ambulatory Dina M. Lue Facility:[facility] Start: 10-12-2022 End: 10-12-2022 Patient encounter procedure Dina M. Lue [facility] Start: 10-05-2022 ambulatory Dina Cobb Facility:[facility] Start: 09-02-2022 End: 09-03-[address] MICAELA DE . Facility:[facility] Start: 08-10-2022 End: 08-11-2022 ambulatory DINA M LUE . Facility: Start: 07-22-2022 End: 07-23-2022 ambulatory DINA M LUE . Facility: Start: 07-06-2022 End: 07-07-2022 ambulatory Dina M. Lue Facility[facility] Start: 07-06-2022 End: 07-06-2022 Patient encounter procedure Dina M. Lue [facility] Start: 07-01-2022 End: 07-02-2022 ambulatory DINA M LUE . Facility: Start: 06-29-2022 End: 06-30-2022 ambulatory Dina M. Lue Facility:[facility] Start: 06-29-2022 End: 06-29-2022 Patient encounter procedure Dina M. Lue [facility] Start: 06-22-2022 End: 06-22-2022 Patient encounter procedure Dina M. Lue [facility] Start: 05-26-2022 End: 05-27-[address] BAYRON SINGH Facility: Start: 05-18-2022 End: 05-18-2022 Patient encounter procedure Dina M. Lue [facility] Start: 05-11-2022 End: 05-11-2022 ambulatory DINA M LUE . Facility: Start: 05-09-2022 Encounter for preprocedural laboratory examination DINA M LUE . [facility] Start: 05-04-2022 End: 05-05-2022 ambulatory DINA M LUE . Facility: Start: 05-04-2022 End: 05-05-2022 Encounter for preprocedural laboratory examination DINA M LUE . Facility:[facility] Start: 04-27-2022 End: 04-27-2022 ambulatory DINA Gibson Facility:[facility] Start: 04-11-2022 End: 04-12-[address] BAYRON SINGH Facility:[facility] Start: 03-28-2022 End: 03-31-[address] BAYRON SINGH Facility:[facility] Start: 03-25-2022 End: 03-25-2022 Lab Drop off Loco MARRERO [facility] Start: 03-25-2022 End: 03-25-2022 Patient encounter procedure Loco MARRERO [facility] Start: 03-02-2022 End: 03-02-2022 Patient encounter procedure AI MITCHELL [facility] Start: 02-09-2022 End: 02-09-2022 Patient encounter procedure Dina Cobb [facility] Start: 02-02-2022 End: 02-02-2022 Patient encounter procedure Dina Cobb [facility] Start: 01-26-2022 End: 01-26-2022 Lab Drop off Dina NedraArthur Cobb [facility] Start: 01-26-2022 End: 01-26-2022 Patient encounter procedure Dina Cobb [facility] Start: 06-11-2020 End: 06-12-2020 Patient encounter procedure PROVIDER UNKNOWN Facility:[facility] Immunizations Immunization Date Immunization Notes Care Provider Machelle douglas 10-26-2022 bacillus calmette-gu nestor vaccine AI MITCHELL [facility] 10-19-2022 bacillus calmette-gu nestor vaccine Dina Lue [facility] 10-12-2022 bacillus calmette-gu nestor vaccine Dina Lue [facility] 09-02-2022 SARS-CoV-2 (COVID-19 ) [id number] vaccine Dina Lue [facility] 08-04-2022 influenza virus vacc ine, unspecified formulation Dina Lue [facility] 07-26-2022 bacillus calmette-gu nestor vaccine Dina Lue [facility] 07-06-2022 bacillus calmette-gu nestor vaccine Dina Lue [facility] 06-29-2022 bacillus calmette-gu nestor vaccine Dina Lue [facility] 06-22-2022 bacillus calmette-gu nestor vaccine Dina Lue [facility] 03-02-2022 bacillus calmette-gu nestor vaccine AI RUY [facility] 02-23-2022 bacillus calmette-gu nestor vaccine AI MITCHELL [facility] 02-16-2022 bacillus calmette-gu nestor vaccine IA MITCHELL [facility] 02-09-2022 bacillus calmette-gu nestor vaccine Dina Lue [facility] 02-02-2022 bacillus calmette-gu nestor vaccine Dina Lue [facility] 01-26-2022 bacillus calmette-gu nestor vaccine Dina Lue [facility] 12-17-2021 pneumococcal polysaccharide vaccine, 23 valent Dina Lue [facility] 10-27-2021 bacillus calmette-gu nestor vaccine Dina Lue [facility] 10-19-2021 bacillus calmette-gu nestor vaccine Dina Lue [facility] 10-13-2021 bacillus calmette-gu nestor vaccine Dina Lue [facility] 10-06-2021 bacillus calmette-gu nestor vaccine Dina Lue [facility] 09-29-2021 bacillus calmette-gu nestor vaccine Dina Lue [facility] 09-22-2021 bacillus calmette-gu nestor vaccine Dina Lue [facility] 08-20-2021 SARS-CoV-2 (COVID-19 ) [id number] vaccine Dina Lue [facility] 08-19-2021 influenza virus vacc ine, unspecified formulation AI MITCHELL [facility] 07-30-2021 influenza virus vacc ine, unspecified formulation Dina Lue [facility] 11-26-2020 SARS-CoV-2 (COVID-19 ) mRNA-1273 vaccine Dina Lue [facility] 10-28-2020 SARS-CoV-2 (COVID-19 ) mRNA-1273 vaccine Dina Lue [facility] 07-18-2018 influenza virus vacc ine, unspecified formulation Dina Lue [facility] 07-30-2015 pneumococcal polysaccharide vaccine, 23 valent Dina Lue [facility] Medications Current Medications Medication Drug Class(es) Dates Sig (Normalized) Sig (Original) aspirin 81 mg delayed release oral tablet (20 sources) Platelet Aggregation Inhibitor, Nonsteroidal Anti-inflammatory Drug Start: 07-07-2021 take 1 mg by mouth once daily aspirin 81 mg Oral EC Tab mg tab(s), Oral, Daily, Refills(s) 0 Start Date: 07/07/21 Status: Ordered Start: 03-26-2020 take 81 mg by mouth once daily Aspirin Active 81 MG PO Daily March 26, 2020 12:00am Calcium Phosphate-Vitamin D3 (2 sources) Start: 03-26-2020 Calcium Phosphate-Vitamin D3 Active March 26, 2020 12:00am estradiol 0.1 mg/ml vaginal cream (10 sources) Estrogen Start: 06-22-2022 Estrace 0.1 mg/g Cream See Instructions, 42.5 gm, Refill(s) 2, Apply a pea size amount around the urethra and vagina, 3x a wk for 4 wks, then 2x a week afterwards., [facility]/pharmacy #[id number], 163, cm, 06/22/22 8:33:00 EDT, Height/Length Dosing, 115, kg, 06/22/22 8:33:00 EDT, Weigh... Start Date: 06/22/22 Status: Ordered fluconazole 150 mg oral tablet (2 sources) Azole Antifungal Start: 12-14-2022 take 1 tablet by mouth once Diflucan 150 mg Tab 150 mg = 1 tab(s), Oral, Once, # 1 tab(s), Refills(s) 0, Pharmacy: [facility]/pharmacy #[id number], 163, cm, 10/26/22 10:27:00 EST, Height/Length [...] Daily, # 30 tab(s), Refills(s) 11, Pharmacy: [facility]/pharmacy #[id number], 163, cm, 01/04/23 8:04:00 EST, Height/Length Dosing, 115, kg, 01/04/23 8:04:00 EST, Weight Dosing Start Date: 01/04/23 Status: Ordered Start: 10-14-2022 take 1 tablet by justo th once daily Myrbetriq 50 mg oral tablet, extended release 50 mg = 1 tab(s), Oral, Daily, # 30 tab(s), Refills(s) 11, Pharmacy: [facility]/pharmacy #[id number], 163, cm, 10/12/22 8:12:00 EST, Height/Length [...] Ordered olmesartan medoxomil 40 mg oral tablet (20 sources) Angiotensin 2 Receptor Neal Start: 07-07-2021 take 1 mg by mouth once daily Benicar 40 mg Tab mg tab(s), Oral, Daily, Refills(s) 0 Start Date: 07/07/21 Status: Ordered Start: 03-26-2020 take 1 tablet by justo th once daily Olmesartan (Benicar) 20 mg Tablet Active 20 MG PO Daily March 26, 2020 12:00am omeprazole 40 mg delayed release oral capsule (2 sources) Proton Pump Inhibitor Start: 03-26-2020 take 40 [...] Daily, # 90 tab(s), Refills(s) 3, Pharmacy: [facility]/pharmacy #[id number], 163, cm, 05/18/22 10:12:00 EDT, Height/Length Dosing, 115, kg, 05/18/22 10:12:00 EDT, Weight Dosing Start Date: 05/18/22 Status: Ordered Start: 10-13-2021 take 1 tablet by [facility] once daily Vesicare 10 mg Tab 10 mg = 1 tab(s), Oral, Daily, # 30 tab(s), Refills(s) 5, Pharmacy: [facility]/pharmacy #[id number], 163, cm, 10/13/21 9:52:00 EST, Height/Length [...] 1 tablet day of treatment after treatment, [facility]/pharmacy #[id number], 163, cm, 05/18/22 10:12:00 EDT, Height/Length Dosing, 115, kg, 05/18/22 10:12:00 EDT, Weight Dosing Start Date: 05/18/22 Status: Ordered Start: 02-02-2022 Bactrim DS 800 mg-160 mg Tab 1 tab(s), Oral, Daily, 10 tab(s), Refill(s) 0, Prophylaxis for BCG, take day before and day of, [facility]/pharmacy #[id number], 163, cm, 02/02/22 8:04:00 EDT, Height/Length Dosing, 115, kg, 02/02/22 8:04:00 EDT, Weight Dosing Start Date: 02/02/22 Status: Ordered Start: 01-26-2022 Bactrim DS 800 mg-160 mg Tab 1 tab(s), Oral, q12hr, 2 tab(s), Refill(s) 6, [facility]/pharmacy #[id number], 163, cm, 01/26/22 8:21:00 EDT, Height/Length Dosing, 115, kg, 01/26/22 8:21:00 EDT, Weight Dosing Start Date: 01/26/22 Status: Ordered vibegron 75 MG Oral Tablet [Gemtesa] (1 source) Start: 01-05-2023 take 1 tablet by mouth once daily Gemtesa 75 mg oral tablet 75 mg = 1 tab(s), Oral, Daily, # 30 tab(s), Refills(s) 3, Pharmacy: [facility]/pharmacy #[id number], 163, cm, 01/04/23 8:04:00 EST, Height/Length Dosing, 115, kg, 01/04/23 8:04:00 EST, Weight Dosing Start Date: 01/05/23 Status: Ordered Vitamin D (18 sources) Start: 07-07-2021 Vitamin D International_Unit, Oral, qWeek, Refills(s) 0 Start Date: 07/07/21 Status: Ordered Completed/Discontinued Medications Medication Drug Class(es) Dates Sig (Normalized) Sig (Original) anastrozole 1 mg oral tablet (2 sources) Aromatase Inhibitor Start: 03-26-2020 End: 03-27-2020 take [...] procedure., # 1 tab(s), Refills(s) 0, Pharmacy: [facility]/pharmacy #[id number], 163, cm, 06/22/22 8:33:00 EDT, Height/Length Dosing, 115, kg, 06/22/22 8:33:00 EDT, Weight Dosing Start Date: 06/22/22 Status: Ordered etodolac 400 mg oral tablet (2 sources) Nonsteroidal Anti-inflammatory Drug Start: 03-26-2020 End: 03-26-2021 take 1 tablet by mouth three times daily Etodolac (Lodine) 400 mg Tablet Discontinued 300 MG PO Three times daily March 26, 2020 12:00am March 26, 2021 11:44am letrozole 2.5 mg oral tablet (20 sources) Aromatase Inhibitor Start: 03-26-2020 End: 04-23-2021 take 1 tablet by mouth once daily Letrozole (Femara) 2.5 mg Tablet Discontinued 2.5 MG PO Daily 90 90 March 26, 2021 12:19pm April 23, 2021 1:56pm Payers Date Payer Category Payer Self-pay [id number] 2022 Unknown [id number] 2019 Unknown [id number] 1959 Self-pay [id number] 1959 Unknown [id number] 1960 Unknown [id number] 2.16.8 40.1.819092.3.579.2.647 1960 Unknown [id number] 2.16.84 0.1.898662.3.579.2.593 1960 Unknown [id number] 2.16.84 0.1.061574.3.579.2.593 1958 Unknown [id number] 2.16.84 0.1.550388.3.579.2.593 1958 Unknown [id number] 2.16.84 0.1.079474.3.579.2.593 1958 Unknown [id number] 2.16.84 0.1.732694.3.579.2.593 1958 Unknown [id number] 2.16.84 0.1.530298.3.579.2.593 1958 Unknown [id number] 2.16.84 0.1.302824.3.579.2.593 1958 Unknown [id number] 2.16.84 0.1.149131.3.579.2.593 1958 Unknown [id number] 2.16.84 0.1.830440.3.579.2.593 1958 Unknown [id number] 2.16.84 0.1.270579.3.579.2.593 1958 Unknown [id number] 2.16.84 0.1.799209.3.579.2.593 1958 Unknown [id number] 2.16.84 0.1.979781.3.579.2.593 1958 Unknown [id number] 2.16.84 0.1.947184.3.579.2.593 1958 Unknown [id number] 2.16.84 0.1.193528.3.579.2.593 1958 Unknown [id number] 2.16.84 0.1.008160.3.579.2.593 1958 Unknown [id number] 2.16.84 0.1.106313.3.579.2.593 1958 Unknown [id number] 2.16.8 40.1.365593.3.579.2.727 1958 Unknown [id number] 2.16.8 40.1.543301.3.579.2.727 1958 Unknown [id number] 2.16.8 40.1.808675.3.579.2.727 1958 Unknown [id number] 2.16.8 40.1.821089.3.579.2.727 1958 Unknown [id number] 2.16.8 40.1.913862.3.579.2.72 1958 Unknown [id number] 2.16.8 40.1.648760.3.579.2.72 1958 Unknown [id number] 2.16.8 40.1.040267.3.579.2.72 1958 Unknown [id number] 2.16.8 40.1.334989.3.579.2.72 1958 Unknown [id number] 2.16.8 40.1.496424.3.579.2.72 1958 Unknown [id number] 2.16.8 40.1.644267.3.579.2.72 1958 Unknown [id number] 2.16.8 40.1.278008.3.579.2.72 1958 Unknown [id number] 2.16.8 40.1.686669.3.579.2.727 1958 Unknown [id number] 2.16.8 40.1.884296.3.579.2.72 1958 Unknown [id number] 2.16.8 40.1.683577.3.579.2.727 1958 Unknown [id number] 2.16.8 40.1.395622.3.579.2.72 1958 Unknown [id number] 2.16.8 40.1.193187.3.579.2.727 1958 Unknown [id number] 2.16.8 40.1.994528.3.579.2.72 1958 Unknown [id number] 2.16.8 40.1.836762.3.579.2.727 1958 Unknown [id number] 2.16.8 40.1.056240.3.579.2.727 1958 Unknown [id number] 2.16.84 0.1.548576.3.579.2.1259 1958 Unknown [id number] 2.16.84 0.1.178322.3.579.2.1259 Unknown [id number] 2.16.84 0.1.504417.3.579.2.593 Unknown [id number] 2.16.8 40.1.579024.3.579.2.531 Problems Active Problems Problem Classification Problem Date Documented Da te Episodic/Chronic Bacterial infection; unspecified site (18 sources) Infection due to enterococcus 09-29-2021 Episodic Cancer of bladder (20 sources) Malignant neoplasm, overlapping lesion of bladder; 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: [Malignant neoplasm of overlapping sites of bladder] Onset: 01-26-2022 Chronic Cancer of breast (3 sources) Personal history of malignant neoplasm of breast; 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: [History of malignant neoplasm of breast] Onset: 11-07-2022 03-27-2020 Episodic Cardiac dysrhythmias (4 sources) Palpitations; 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: [Tachycardia, [...] 11-07-2022 Chronic Other aftercare (1 source) Other shelter (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; 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: [OTH SNF CURRENT DRUG THERAPY] Onset: 12-25-2022 Episodic Other aftercare (1 source) [facility] (current) use of aspirin; 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: [SNF CURRENT USE OF ASPIRIN] Onset: 12-13-2022 Episodic Other and ill-defined heart disease (2 sources) Coronary artery aneurysm; 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: [Coronary artery aneurysm] Onset: 01-02-2024 Chronic Other and unspecified benign neoplasm (2 sources) Benign neoplasm of colon, unspecified; 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: [Benign neoplasm of colon, unspecified] Onset: 03-19-2024 Episodic Other diseases of bladder and urethra (12 sources) Detrusor overactivity; 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: [Overactive bladder] Onset: 01-26-2022 Chronic Other diseases of bladder and urethra (18 sources) Overactive bladder 07-14-2021 Chronic Other diseases of bladder and urethra (1 source) Overactive bladder; 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: [OVERACTIVE BLADDER] Onset: 01-09-2023 Chronic Other nutritional; endocrine; and metabolic disorders [...] HX MALIG NEOPLASM BLADDER] Onset: 04-27-2022 Episodic E Codes: Fall (1 source) Fall [...] [RESPIRATORY DISORDER UNSPECIFIED] Onset: 05-26-2022 Episodic Other lower respiratory disease (2 sources) Other forms of dyspnea; 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: [Other forms of dyspnea] Onset: 05-05-2023 Episodic Other screening for suspected conditions (not [...] MALIG NEOPLASM OF BREAST] Onset: 04-13-2022 Episodic Procedures Date Procedure Procedure Detail Performing Clinician Start: 03-13-2023 Cystoscopy and biops y of bladder Jeff Booth Comment on above: BLUE LIGHT CYSTOSCOP Y Start: 12-28-2022 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 Dina Lue Comment on above: random bladder biops ies, BL ureteral washing Start: 12-07-2022 Cystoscopy Dina Lue Start: 12-22-2021 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 Dina Lue Start: 07-26-2021 Transurethral resect ion of bladder neoplasm Dina Lue Start: 07-14-2021 Cystoscope, device ( physical object) Dina Lue Bilateral replacemen t of knee joints Dina Lue Breast surgery (qual ifier value) Dina Lue Cholecystectomy Dina Lue H/O: hysterectomy Dina Lue Tonsillectomy Dina Lue Results Test Name Value Interpretation Reference Range Facility NON-PLATFORM CONSULTANT CYTOLOGY - CELLULAR EXAMon 04-10-2024 LAB AP CASE REPORT [facility] Comment on above: Order Comment: Via c ysto Result Comment: Non- gynecologic Cytology Case: [id number] Authorizing Provider: Lisa Zelaya MD Collected: 04/10/2024 1544 Ordering Location: [facility] Received: 04/10/2024 1544 Urology Pathologist: Adelita Peralta MD Specimen: Bladder washing Performed By: #### L [id number] ####[facility] (BEAKER)[address] [facility] [place] [address] LAB AP CLINICAL INFORMATION Order Diagnoses [facility] Comment on above: Order Comment: Via c ysto Result Comment: C67. 4 - Malignant neoplasm of posterior wall of urinary bladder (CMS/HCC) [ICD-10-CM] Performed By: #### L [id number] ####[facility] LAB (BEAKER)[address] [place] [address] LAB AP GROSS DESCRIPTION 6 mL clear, colorless fluid [facility] Comment on above: Order Comment: Via c ysto Performed By: #### L [id number] ####[facility] LAB (BEAKER)[address] [facility] [place] [address] LAB AP REPORT FINAL DIAGNOSIS NARRATIVE [facility] Comment on above: Order Comment: Via c ysto Result Comment: A. B ladder washing: - Negative for high grade urothelial carcinoma. Performed By: #### L [id number] ####[facility] LAB (BEAKER)[address] [facility] [place] [address] Procedure Visiton 04-10-2024 Procedure Visit [id number] Wali Bejarano 1960 Date Provider Department Center 04/10/2024 397-LISA ZELAYA [facility] Family History Problem Relation Age of Onset Hypertension Mother Atrial fibrillation Mother Other Sister Coronary artery disease Brother Hypertension Brother Family Status - Relation Status Age at Mother Sister Brother Level of Service:42752 NC OFFICE/OUTPATIENT ESTABLISHED LOW MDM 20 MIN Reason for Visit and Comments: Follow-up [593751] [facility] Telephoneon 04-03-2024 Telephone [id number] Wali Bejarano 1960 Date Provider Department Center 04/03/2024 3967REEMA WONG [facility] Family History Problem Relation Age of Onset Hypertension Mother Atrial fibrillation Mother Other Sister Coronary artery disease Brother Hypertension Brother Family Status - Relation Status Age at Mother Sister Brother Normal [facility] HISTOLOGY - TISSUE EXAMon LAB AP CASE REPORT Normal [facility] Comment on above: Result Comment: Surg ical Pathology Case: [id number] Authorizing Provider: Jenn Thompson MD Collected: 03/19/2024 1224 Ordering Location: [facility] Received: 03/19/2024 1356 [facility] Pathologist: Mel Mortensen MD Specimens: A) - Large Intestine, Right/Ascending Colon, small ascending cln polyps r/o adenoma B) - Large Intestine, Right/Ascending Colon, large proximal ascending cln polyp EMR r/o adenoma C) - Large Intestine, Right/Ascending Colon, large distal ascending cln EMR polyp r/o adenoma Performed By: #### L [id number] ####[facility] LAB (BEAKER)[address] [place] [address] LAB AP CLINICAL INFORMATION Order Diagnoses Normal [facility] Comment on above: Result Comment: D12. 6 - Adenomatous polyp of colon, unspecified part of colon [ICD-10-CM] Performed By: #### L [id number] ####[facility] LAB (BEAKER)[address] [place] [address] LAB AP GROSS DESCRIPTION [facility] Comment on above: Result Comment: A. L arge Intestine, Right/Ascending Colon. Received in formalin in a container labeled Daniella Bejarano, small ascending cln polyps r/o adenoma, is a fragment of soft tissue with a pink-rankin polypoid area (0.2 cm in all dimensions) and attached pale rankin translucent strip (0.5 x 0.3 x <0.1 cm). Received in the same container is a strip of pale rankin, translucent soft tissue measuring 0.3 x 0.2 x <0.1 cm. The specimen is submitted entirely in a single cassette. Jose Juan Lees, Pathology PGY-2 B. Large Intestine, Right/Ascending Colon. Received in formalin in a container labeled Daniella Bejarano, large proximal ascending cln polyp EMR r/o adenoma, is a fragment of soft tissue with a pink-rankin polypoid area (0.5 x 0.4 x 0.4 cm) and attached pale rankin strip (0.3 x 0.2 x 0.1), which is bisected to reveal white granular cut surfaces and submitted entirely in cassette B1. Due to the fragmented nature of the specimen, no surgical margin is grossly identified. Received in the same container is further soft tissue, including a pink-rankin polypoid fragment (0.5 x 0.3 x 0.3), 2 white granular fragments (0.1 and 0.2 cm in greatest dimension), and 11 johnson translucent strips (ranging <0.1 - 2.4 cm in greatest dimension), which are submitted entirely in cassette B2. Casiano: Cassette B1: Polypoid fragment, bisected Cassette B2: Additional polypoid and nonpolypoid fragments Jose Juan Lees, Pathology PGY-2 C. Large Intestine, Right/Ascending Colon. Received in formalin in a container labeled Daniella Bejarano, large distal ascending cln EMR polyp r/o adenoma, are fragments of pink-rankin polypoid soft tissue. The largest fragment (1.0 x 0.7 x 0.3) is inked black along the possible resection margin and sectioned to reveal white, granular cut surfaces. The remaining 16 fragments of polypoid and nonpolypoid rankin-pink soft tissue range 0.1 - 0.9 cm in greatest dimension. The specimen is submitted entirely as follows. C1: Largest fragment, end 1 C2: Largest fragment, end 2 C3: Remainder of largest fragment, trisected C4: Other fragments Jose Juan Lees, Pathology PGY-2 Performed By: #### L [id number] ####[facility] LAB (BEAKER)[address] [place] [address] LAB AP MICROSCOPIC DESCRIPTION Microscopic examination performed. [facility] Comment on above: Performed By: #### L [id number] ####[facility] LAB (BEAKER)[address] [place] [address] LAB AP REPORT FINAL DIAGNOSIS NARRATIVE [facility] Comment on above: Result Comment: Simon resendiz, ascending polyp, biopsy: - Tubular adenoma B. Colon, large proximal ascending polyp, biopsy: - Tubular adenoma C. Colon, large distal ascending polyp, biopsy: - Tubular adenoma Performed By: #### L [id number] ####[facility] NOLAN ([place] [address] on 03-19-2024 HP --- Attestation signed by Jenn Thompson MD at 03/19/2024 11:44 AM I personally saw and examined the patient on the same date of service as resident/fellow . I discussed the findings and therapeutic plan with the resident/fellow . I agree with the documentation, except for any edits/updates below. Assessment/Plan This is a 56-year-old female who recently underwent colonoscopy 3 weeks ago on 02/13/2024 found to have cecal polyps, biopsies were obtained and revealed tubular adenoma. Presenting today for colonoscopy with possible EMR. Colonoscopy at the [facility] on 02/13/2024 revealed 2 subcentimeter polyps in the cecum/ascending colon biopsied with cold snare. Pandiverticulosis. Plan: Colonoscopy with EMR today History Of Present Illness This is a 56-year-old female who recently underwent colonoscopy 3 weeks ago on 02/13/2024 found to have cecal polyps, biopsies were obtained and revealed tubular adenoma. Presenting today for colonoscopy with possible EMR. Colonoscopy at the [facility] on 02/13/2024 revealed 2 subcentimeter polyps in the cecum/ascending colon biopsied with cold snare. Pandiverticulosis. Past Medical History She has a past medical history of Arthritis, Bladder cancer (CMS/HCC), Breast cancer (CMS/HCC) (2018), GERD (gastroesophageal reflux disease), History of DVT (deep vein thrombosis) (2018), HTN (hypertension), Hyperlipidemia, PONV (postoperative nausea and vomiting), Sleep apnea, and Urinary tract infection. Surgical History She has a past surgical history that includes Knee Arthroplasty (Right); Cholecystectomy; Mastectomy, radical (Right, 2017); Knee Arthroplasty (Left); Total abdominal hysterectomy w/ bilateral salpingoophorectomy (1989); Transurethral resection of bladder tumor; Tonsillectomy; Cystoscopy; Bladder surgery; Cardiac catheterization; and Joint replacement (). Social History She reports that she quit smoking about 7 years ago. Her smoking use included cigarettes. She has a 40.00 pack-year smoking history. She has never been exposed to tobacco smoke. She has never used smokeless tobacco. She reports current alcohol use. She reports that she does not use drugs. Family History Family History Problem Relation Name Age of Onset Hypertension Mother Mother Atrial fibrillation Mother Mother Other (pacemaker in situ) Sister Coronary artery disease Brother Hypertension Brother Allergies Oxycodone-acetaminophen Medications (Not in a hospital admission) Review of Systems Last Recorded Vitals Visit Vitals BP 150/64 Pulse 67 Temp 36 ???C (96.8 ???F) (Temporal) Resp 18 Ht 1.626 m (5' 4 ) Wt 121 kg (267 lb 10.2 oz) SpO2 99% BMI 45.94 kg/m??? OB Status Postmenopausal Smoking Status Former BSA 2.34 m??? Physical Exam Relevant Lab Results No results found for: NA , K , CL , CO2 , BUN , CREATININE , GLUCOSE , CALCIUM , ANIONGAP , EGFR , BCR Relevant Imaging Results XR transfer of outside films This order has been auto-finalized and does not contain a result. Assessment/Plan This is a 56-year-old female who recently underwent colonoscopy 3 weeks ago on 02/13/2024 found to have cecal polyps, biopsies were obtained and revealed tubular adenoma. Presenting today for colonoscopy with possible EMR. Colonoscopy at the [facility] on 02/13/2024 revealed 2 subcentimeter polyps in the cecum/ascending colon biopsied with cold snare. Pandiverticulosis. Plan: Colonoscopy with EMR today [facility] NURSNOTEon 03-19-2024 NURSNOTE Grounding patch eduarda pamela skin dry and intact [facility] NURSNOTE Dr Thompson is at beds freida updating patient and family [facility] POCT GLUCOSE METER UNSOLICIT ED RESULTSon 03-19-2024 Glucose [Mass/Vol] 117 mg/dL High 70-105 [facility] Comment on above: Order Comment: Waive d Testing in the ED is performed under the ED CLIA certificate #[id number]. Result Comment: dhol as Performed By: #### L [id number] ####[facility] (BEAKER)[address] [place] [address] Prep for Procedureon 024 Prep for Procedure [id number] Wali Bejarano A 1960 Provider Department Center 03/12/2024 [facility] Family History Problem Relation Age of Onset Hypertension Mother Atrial fibrillation Mother Other Sister Coronary artery disease Brother Hypertension Brother Family Status - Relation Status Age at Mother Sister Brother [facility] Letter (Out)on 03-06-2024 Letter (Out) [id number] Wali Bejarano A 1960 Provider Department Center 03/06/2024 None-None [facility] [place] [facility] Family History Problem Relation Age of Onset Hypertension Mother Atrial fibrillation Mother Other Sister Coronary artery disease Brother Hypertension Brother Family Status - Relation Status Age at Mother Sister Brother [facility] Orders Onlyon 03-01-2024 Orders Only [id number] Wali Bejarano A 1960 Date Provider Department Center 03/01/2024 REEMA CARD [facility] Family History Problem Relation Age of Onset Hypertension Mother Atrial fibrillation Mother Other Sister Coronary artery disease Brother Hypertension Brother Family Status - Relation Status Age at Mother Sister Brother [facility] Garret 02-14-2024 L Specimen: [id number] Received: 02/14/24 Status: SOUT Req Num: [id number] Spec Type: Surgical Subm Dr: Jeff Lutz Tissues: A Colon Biopsy (CECAL POLYP) Procedures: HE/2, Gross/Micro L4 Age/ Patient Sex Location Account Attending Physician Daniella Bejarano 63/F LABELL [id number] Jeff Lutz SPEC NUM: [id number] RECD: 02/14/24 STATUS: LALY HODGES NUM: [id number] JULIA: 02/14/24- SUBM DR: Jeff Lutz ENTERED: 02/14/24 [facility] DR: SPEC TYPE: Surgical DEPT: ISADORA VIRK ENTERED BY: [id number] RECV BY: [id number] ORDERED: HE/2, Gross/Micro L4 ORDERED: HE/2, Gross/Micro L4 Pathological Diagnosis Cecal polyps biopsies: -Tubular adenoma(s) in all fragments without high-grade features Gross Description A. The specimen is received in formalin labeled with patients name and cecal polyp , consisting of three rankin mucosal tissue fragments measuring 0.4 x 0.2 x 0.2 cm to 0.2 x 0.1 x 0.1 cm, entirely submitted in A1. Clinical history: cecal polyp x2, smith-diverticulosis. TW/CYC CPT Codes 48319 Specimen: [id number] Received: 02/14/24 Status: LALY Suárezq Num: [id number] Spec Type: Surgical Subm Dr: Jeff Lutz Tissues: A Colon Biopsy (CECAL POLYP) Procedures: HE/2, Gross/Micro L4 Patient: Daniella Bejarano [id number] (Continued) Signed (signature on file) Bernardino-Horacio Jeter MD 02/17/24 190 [facility] Office Visiton 02-09-2024 Follow-up visit [id number] Wali eBjarano 1960 F Date Provider Department Center 02/09/2024 Sadie-OZZY DANIELS MICHELLE [facility] Family History Problem Relation Age of Onset Hypertension Mother Atrial fibrillation Mother Other Sister Coronary artery disease Brother Hypertension Brother Family Status - Relation Status Age at Mother Sister Brother Level of Service:41846 NC OFFICE/OUTPATIENT ESTABLISHED MOD MDM 30 MIN [facility] 3601-17-2024 36 Patient will call me back if she decides she'd like to proceed with PFT's. [facility] 36on 01-16-2024 36 Regarding echo performed on 01/11/2024: ISIDRA Blair MA Her echo looks OK except they couldn't see her RV well- ask her if shortness of breath and edema have improved since taking lasix. LM for patient to return my call. Also let her know her Holter monitor did not show anything concerning (per Jeannette). [facility] 36 Patient called back to make you aware that her edema is better. She says it's better because she isn't on the cruise anymore and eating so much salt . She said her SOB remains the same, as she's still huffin and puffin . She states I think I'm just fat . Any recommendations? (Besides weight loss and diet lol) [facility] NON-PLATFORM CONSULTANT CYTOLOGY - CELLULAR EXAMon 01-10-2024 LAB AP CASE REPORT Normal [facility] Comment on above: Order Comment: Via c ysto Result Comment: Non- gynecologic Cytology Case: [id number] Authorizing Provider: Lisa Zelaya MD Collected: 01/10/20241421 Ordering Location: [facility] Received: 01/10/2024 [facility] Urology Pathologist: Yossi Sterling MD Specimen: Bladder washing Performed By: #### L [id number] #### [facility] LAB (BEAKER) [address] [place] [address] LAB AP CLINICAL INFORMATION Order Diagnoses [facility] Comment on above: Order Comment: Via c ysto Result Comment: C67. 4 - Malignant neoplasm of posterior wall of urinary bladder (CMS/HCC) [ICD-10-CM] Performed By: #### L [id number] #### [facility] LAB (BEAKER) [address] [place] [address] LAB AP GROSS DESCRIPTION [facility] Comment on above: Order Comment: Via c ysto Result Comment: 15 m L clear, colorless fluid. Performed By: #### L [id number] #### [facility] LAB (BEAKER) [address] [place] [address] LAB AP REPORT FINAL DIAGNOSIS NARRATIVE Normal [facility] Comment on above: Order Comment: Via c ysto Result Comment: A. B ladder washing: - Negative for high grade urothelial carcinoma. Performed By: #### L [id number] #### [facility] LAB (BEAKER) [address] [place] [address] Procedure Visiton 03-13-2024 Procedure Visit [id number] Wali Bejarano 1960 F Date Provider Department Center 01/10/2024 LISA JOY [facility] Family History Problem Relation Age of Onset Hypertension Mother Atrial fibrillation Mother Other Sister Coronary artery disease Brother Hypertension Brother Family Status - Relation Status Age at Mother Sister Brother Level of Service:57464 [place] OFFICE/OUTPATIENT ESTABLISHED LOW MDM 20 MIN Reason for Visit and Comments: Follow-up [242864] Normal [facility] 37on 01-02-2024 37 Increase lasix to 40 mg daily for 2-3 days to remove fluid, then return to 20 mg daily Have blood drawn for mag, electrolytes and renal function [facility] will call you for echocardiogram Normal [facility] Office Visiton 01-02-2024 Follow-up visit [id number] Wali Bejarano 1960 Date Provider Department Center 01/02/2024 OZZY PULLIAM MICHELLE Krueger [facility] Family History Problem Relation Age of Onset Hypertension Mother Atrial fibrillation Mother Other Sister Coronary artery disease Brother Hypertension Brother Family Status - Relation Status Age at Mother Sister Brother Level of Service:29845 NC OFFICE/OUTPATIENT ESTABLISHED MOD MDM 30 MIN Normal [facility] NON-PLATFORM CONSULTANT CYTOLOGY - CELLULAR EXAMon 10-04-2023 LAB AP CASE REPORT Normal [facility] Comment on above: Order Comment: Via c ysto Result Comment: Non- gynecologic Cytology Case: [id number] Authorizing Provider: Lisa Zelaya MD Collected: 10/04/2023 1451 Ordering Location: [facility] Received: 10/04/2023 1451 Urology Pathologist: Yossi Sterling MD Specimen: Bladder washing Performed By: #### L [id number] #### [facility] LAB (BEAKER) [address] [place] [address] LAB AP CLINICAL INFORMATION Order Diagnoses Normal [facility] Comment on above: Order Comment: Via c ysto Result Comment: C67. 4 - Malignant neoplasm of posterior wall of urinary bladder (CMS/HCC) [ICD-10-CM] Performed By: #### L [id number] #### [facility] LAB (BEAKER) [address] [place] [address] LAB AP GROSS DESCRIPTION [facility] Comment on above: Order Comment: Via c ysto Result Comment: 14 m L clear, colorless fluid. Performed By: #### L [id number] #### [facility] LAB (BEAKER) [address] [place] [address] LAB AP REPORT FINAL DIAGNOSIS NARRATIVE [facility] Comment on above: Order Comment: Via c ysto Result Comment: Blad david washing, cytology: Negative for high-grade urothelial carcinoma. Performed By: #### L [id number] #### [facility] LAB (BEAKER) [address] [place] [address] Procedure Visiton 10-04-2023 Procedure Visit [id number] Wali Bejarano A 1960 [facility] Provider Department Center 10/04/2023 LISA JOY [facility] Family History Problem Relation Age of Onset Hypertension Mother Family Status - Relation Status Age at Mother Level of Service:26624 NC OFFICE/OUTPATIENT ESTABLISHED LOW MDM 20 MIN Reason for Visit and Comments: Follow-up [872840] [facility] Letter (Out)on 08-15-2023 Letter (Out) [id number] Wali Bejarano A 1960 Provider Department Center 08/15/2023 None-None [facility] C Family History Problem Relation Age of Onset Hypertension Mother Family Status - Relation Status Age at Mother [facility] Letter (Out)on 08-11-2023 Letter (Out) [id number] Wali Bejarano A 1960 [facility] Provider Department Center 08/11/2023 None-None [facility] Medical C Family History Problem Relation Age of Onset Hypertension Mother Family Status - Relation Status Age at Mother [facility] Letter (Out)on 07-07-2023 Letter (Out) [id number] Wali Bejarano A 1960 [facility] Provider Department Center 07/07/2023 None-None [facility] Medical C Family History Problem Relation Age of Onset Hypertension Mother Family Status - Relation Status Age at Mother [facility] Orders Onlyon 06-29-2023 Orders Only [id number] Wali Bejarano 1960 F Date Provider Department Center 06/29/2023 Sudhakar-IVAN NEAL [facility] Family History Problem Relation Age of Onset Hypertension Mother Family Status - Relation Status Age at Mother [facility] NON-PLATFORM CONSULTANT CYTOLOGY - CELLULAR EXAMon 06-28-2023 LAB AP CASE REPORT Normal [facility] Comment on above: Order Comment: Via c ysto Result Comment: Non- gynecologic Cytology Case: [id number] Authorizing Provider: Lisa Zelaya MD Collected: 06/28/2023 [facility] Ordering Location: [facility] Received: 06/28/2023 [facility] Urology Pathologist: Yossi Sterling MD Specimen: Bladder washing Performed By: #### L [id number] #### [facility] LAB (BEAKER) [address] [place] [address] LAB AP CLINICAL INFORMATION Order Diagnoses [facility] Comment on above: Order Comment: Via c ysto Result Comment: C67. 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 B ladder washing: - Negative for high grade urothelial carcinoma. Performed By: #### L AB13 #### [facility] LAB (BEAKER) [address] [place] [address] Procedure Visiton 06-28-2023 Procedure Visit [id number] Wali Bejarano ruby A 1960 Provider Department Center 06/28/2023 397-DIETER LISA [facility] Family History Problem Relation Age of Onset Hypertension Mother Family Status - Relation Status Age at Mother Level of Service:72504 NC OFFICE/OUTPATIENT ESTABLISHED LOW MDM 20-29 MIN Reason for Visit and Comments: Follow-up [558694] Normal [facility] Operative Reporton 3 Operative Report [id number] D:127 Normal [facility] Clinical Supporton 3 Clinical Support [id number] Wali Bejarano ruby A 1960 Provider Department Center 06/02/2023 3079-DCC ONC NURSE DCC ONC DCC Family History Problem Relation Age of Onset Hypertension Mother Family Status - Relation Status Age at Mother Normal [facility] Clinical Supporton 3 Clinical Support [id number] Wali Bejarano ruby A 1960 Provider Department Center 05/26/2023 3079-DCC ONC NURSE DCC ONC DCC Family History Problem Relation Age of Onset Hypertension Mother Family Status - Relation Status Age at Mother Reason for Visit and Comments: Procedure [88] - Gutierrez placement #5/6 [facility] Infusionon 05-05-2023 Infusion [id number] Wali Bejarano ruby A 1960 Provider Department Center 05/05/2023 2272-[facility] CHAIR 1 DCC INF DCC Family History Problem Relation Age of Onset Hypertension Mother Family Status - Relation Status Age at Mother Reason for Visit and Comments: Intravesicular Chemo [Other] Normal [facility] Infusionon 04-28-2023 Infusion [id number] Wali Bejarano ruby A 1960 Provider Department Center 04/28/2023 2273-[facility] CHAIR 2 DCC INF DCC No family history on file [facility] Outside Oncologyon 3 Outside Oncology [id number] CD:127 [facility] Consent for Treatmenton 03-31 Consent for Treatment [id number] D:127 [facility] Oncology Noteon 04-26-2023 Oncology Note Oncology Clerk Travel Reservations Office Visit/Treatment Note Current Patient Status/Reason: Pt in for scheduled clinic visit. I accompanied Dr. Booth in room. Pt is following with urologist for bladder cancer with [facility]rologist and is getting treatment at [place], with a physician there. Treatment Plan: none at this time, pt getting mammogram on left by PCP. Follow-Up Appointment Info/Referrals: F/U in 1 year. Resources Offered: Pt voiced no questions or concerns to me when I asked. Instructed pt to call with questions, concerns. [facility] Comment on above: Result Comment: Elec [...] 1 with ductal and lobular features, ER>95%, NC >95%, Her2 neg. Dr. Ward performed R [...] bcg x 6 weeks. she had scope 10/27/21 noted urothelial mucosa no evidence of tumor. 11/24/21 had BCG weekly x 7 completed 12/22/21 [...] She referred to Dr. Lisa Zelaya at [facility] who repeated the biopsy and was [...] Problems Abnormal urinary stream / SNOMED CT 467939112 / Confirmed Vaginal atrophy / SNOMED CT 095022276 / Confirmed BMI 40.0-44.9, adult / SNOMED CT 0628210825 / Confirmed Former smoker / SNOMED CT 48182926 / Confirmed History of UTI / SNOMED CT 5969912753 / Confirmed Mixed incontinence / SNOMED CT 72333438 / Confirmed Enterococcus faecalis infection / SNOMED CT 4975926596 / Confirmed Urothelial carcinoma of bladder / SNOMED CT 080870932 / Confirmed Bladder cancer / SNOMED CT 498164818 / Confirmed OAB (overactive bladder) / SNOMED CT 7507355431 / Confirmed Urinary tract infection / SNOMED CT 823268959 / Confirmed Canceled: Bladder cancer / SNOMED CT 0223642390 Canceled: Microhematuria / SNOMED CT 928705078 Histories Past Medical History: No active or resolved past medical history items have been selected or recorded. Family History: Hypertension Father Mother Brother Anemia Father Arthritis Father Mother Prostate cancer Brother Procedure history: Cystoscopy and biopsy of bladder ([id number]) on 03/13/2023 at 62 Years. Comments: 03/16/2023 12:36 Roxana Fernando BLUE LIGHT CYSTOSCOPY Cystoscopy and transurethral resection of bladder tumor ([id number]) on 12/28/2022 at 62 Years. Comments: 01/04/2023 13:04 Roxana Garrison random bladder biopsies, BL ureteral washing Cystoscopy ([id number]) on 12/07/2022 at 62 Years. Cystoscopy and transurethral resection of bladder tumor ([id number]) on 12/22/2021 at 61 Years. TURBT - Transurethral resection of bladder tumor ([id number]) on 07/26/2021 at 61 Years. Cystoscope ([id number]) on 07/14/2021 at 61 Years. Breast surgery (4771030160). History of hysterectomy. (6430653820). Cholecystectomy (95905921). Ts - Tonsillectomy (166026325). Bilateral prosthetic arthroplasty of knees (2478098387). Social History Social & Psychosocial Habits Alcohol 07/07/2021 Risk Assessm (more content not included)... Normal [facility] Patient Letter FTon 2022 Patient Letter [facility] [place]Inserted Image. Lindsay ble to display) March 21, 2023 DANIELLA BEJARANO [address] [place] [address] : 1960 To whom it may concern, This patient is currently under the care of Dr. Dina Cobb MD at [facility]. We are requesting any and all information regarding her recent surgery she had performed at [facility]. Surgery reports, and any pathology/imaging reports are highly requested to be sent to our office for our records. Please fax any relevant information to our office at [phone]. If you have any questions please feel free to call our office at [phone]. Thank you [facility] [address] [place] [address] [place] [address] Normal [facility] Pathology Noteon 03-18-2023 Pathology Note [id number]#1.00C D:127 Normal [facility] Reminderson 03-18-2023 Reminders - From: Roxana Lindsey To: [facility] - Recalls Lue; Sent: 01/05/2023 15:34:58 EST Show up: 01/05/2023 15:35:00 EST Subject: appt with Dr Booth Due Date/Time: 01/28/2023 15:35:00 EDT Reminder/Recall Patient will need seen by Dr Booth after blue light cystoscopy is completed at [facility] with Dr Zelaya appt with Dr [...] another message in about this. CRISTÓBAL Normal [facility] Outside Labson 03-10-2023 Outside Labs [id number]#1.00 CD:127 Normal [facility] Outside Pathology Reporton 0 03-10-2023 Outside Pathology Report [id number]#1.00 CD:127 Normal [facility] Outside Radiologyon 03-10-20 Outside Radiology [id number]#1.00 CD:127 Normal [facility] Consultation Noteon 03-09-20 Consultation Note [id number]#1.00C D:127 Normal [facility] Pathology Noteon 03-09-2023 Pathology Note [id number]#1.00C D:127 Normal [facility] CBC AUTO DIFFon 03-06-2023 BASO # 0.1 103/ul Normal 0.0-0.1 [facility] Comment on above: Performed By: #### C YTO #### [facility] Laboratory [address] [place] [address] Dr. Troy Jeter Basophils/100 WBC (Bld) 1.1 % Normal 0.2-2.0 [facility] Comment on above: Performed By: #### C YTO #### [facility] Laboratory [address] [address] [address] Troy Jeter EO # 0.2 103/ul Normal 0.0-0.7 [facility] Comment on above: Performed By: #### C YTO #### [facility] Laboratory [address] [place] [address] Dr. Troy Jeter Eosinophils/100 WBC (Bld) 2.8 % Normal 0.9-7.0 [facility] Comment on above: Performed By: #### C YTO #### [facility] Laboratory [address] [place] [address] Dr. Troy Jeter Erythrocyte distribution width (RBC) [Ratio] 15.1 % Critically high 11.0-15.0 [facility] Comment on above: Performed By: #### C YTO #### [facility] Laboratory [address] [place] [address] Dr. Troy Jeter Hematocrit (Bld) [Volume fraction] 39.7 % Normal 36.0-48.0 [facility] Comment on above: Performed By: #### C YTO #### [facility] Laboratory [address] [place] [address] Dr. Troy Jeter Hemoglobin (Bld) [Mass/Vol] 12.3 g/dL Normal 12.0-16.0 [facility] Comment on above: Performed By: #### C YTO #### [facility] [address] [place] [address] Dr. Troy Jeter IG # 0.02 10e3/ul Normal 0.00-0.03 [facility] Comment on above: Performed By: #### C YTO #### [facility] [address] [place] [address] Dr. Troy Jeter IG % 0.4 % Normal 0.0-0.5 [facility] Comment on above: Performed By: #### C YTO #### [facility] Laboratory [address] [place] [address] Dr. Troy Jeter LYMPH # 1.3 103/ul Normal 1.2-3.8 [facility] Comment on above: Performed By: #### C YTO #### [facility] Laboratory [address] [place] [address] Dr. Troy Jeter Lymphocytes/100 WBC (Bld) 22.0 % Normal 20.5-60.0 [facility] Comment on above: Performed By: #### C YTO #### [facility] [address] [place] [address] Dr. Troy Jeter MANUAL DIFF REQ NO Normal [facility] Comment on above: Performed By: #### C YTO #### [facility] Laboratory [address] [address] [address] Troy Jeter MCH (RBC) [Entitic mass] 25.5 pg Critically low 26.7-34.0 [facility] Comment on above: Performed By: #### C YTO #### [facility] [address] [place] [address] Dr. Troy Jeter MCHC (RBC) [Mass/Vol] 31.0 g/dL Normal 29.9-35.2 [facility] Comment on above: Performed By: #### C YTO #### [facility] [address] [place] [address] Dr. Troy Jeter MCV (RBC) [Entitic vol] 82.2 fL Normal 81.0-99.0 [facility] Comment on above: Performed By: #### C YTO #### [facility] Laboratory [address] [place] [address] Dr. Troy Jeter MONO # 0.5 103/ul Normal 0.3-0.8 [facility] Comment on above: Performed By: #### C YTO #### [facility] Laboratory [address] [place] [address] Dr. Troy Jeter Monocytes/100 WBC (Bld) 8.6 % Normal 1.7-12.0 [facility] Comment on above: Performed By: #### C YTO #### [facility] [address] [place] [address] Dr. Troy Jeter NEUT # 3.7 103/ul Normal 1.4-6.5 [facility] Comment on above: Performed By: #### C YTO #### [facility] [address] [place] [address] Dr. Troy Jeter Neutrophils/100 WBC (Bld) 65.1 % Normal 43.0-75.0 [facility] Comment on above: Performed By: #### C YTO #### [facility] [address] [place] [address] Dr. Troy Jeter Platelet mean volume (Bld) [Entitic vol] 9.0 fL Critically low 9.5-13.5 [facility] Comment on above: Performed By: #### C YTO #### [facility] [address] [place] [address] Dr. Troy Jeter PLT 211 103/ul Normal 150-450 [facility] Comment on above: Performed By: #### C YTO #### [facility] [address] [place] [address] Dr. Troy Jeter RBC 4.83 106/ul Normal 4.20-5.40 [facility] Comment on above: Performed By: #### C YTO #### [facility] [address] [place] [address] Dr. Troy Jeter WBC 5.7 103/ul Normal 4.0-11.0 [facility] Comment on above: Performed By: #### C YTO #### [facility] [address] [place] [address] Dr. Troy Jeter PROF 14(COMP METB)on 023 Albumin [Mass/Vol] 3.4 g/dL Normal 3.4-5.0 [facility] Comment on above: Performed By: #### C BC #### [facility] [address] [place] [address] Dr. Troy Jeter Albumin/Globulin [Mass ratio] 0.9 {ratio} Normal [facility] Comment on above: Performed By: #### C BC #### [facility] [address] [place] [address] Dr. Troy Jeter ALP [Catalytic activity/Vol] 94 U/L Normal 46-116 [facility] Comment on above: Performed By: #### C BC #### [facility] [address] [place] [address] Dr. Troy Jeter ALT [Catalytic activity/Vol] 61 U/L Critically high 14-59 [facility] Comment on above: Performed By: #### C BC #### [facility] [address] [place] [address] Dr. Troy Jeter Anion gap [Moles/Vol] 11.6 mmol/L Normal [facility] Comment on above: Performed By: #### C BC #### [facility] [address] [address] [address] Troy Jeter AST [Catalytic activity/Vol] 48 U/L Critically high 15-37 [facility] Comment on above: Performed By: #### C BC #### [facility] [address] [address] [address] Troy Jeter Bilirubin [Mass/Vol] 0.3 mg/dL Normal 0.2-1.0 [facility] Comment on above: Performed By: #### C BC #### [facility] [address] [address] [address] Troy Jeter Calcium [Mass/Vol] 9.3 mg/dL Normal 8.5-10.1 [facility] Comment on above: Performed By: #### C BC #### [facility] [address] [address] [address] Troy Jeter Chloride [Moles/Vol] 106 mmol/L Normal 98-107 [facility] Comment on above: Performed By: #### C BC #### [facility] [address] [address] [address] Troy Jeter CO2 [Moles/Vol] 25.4 mmol/L Normal 21.0-32.0 [facility] Comment on above: Performed By: #### C BC #### [facility] [address] [address] [address] Troy Jeter Creatinine [Mass/Vol] 1.06 mg/dL Critically high 0.55-1.02 [facility] Comment on above: Performed By: #### C BC #### [facility] [address] [address] [address] Troy Jeter EGFR-AF OMANI >60 Normal >=60 [facility] Comment on above: Performed By: #### C BC #### [facility] [address] [address] [address] Troy Jeter EGFR-NON AF OMANI 52 mL/min/1.73m2 Critically low >=60 [facility] Comment on above: Performed By: #### C BC #### [facility] [address] [address] [address] Troy Jeter Globulin (S) [Mass/Vol] 4.0 g/dL Normal [facility] Comment on above: Performed By: #### C BC #### [facility] [address] [address] [address] Troy Jeter Glucose [Mass/Vol] 132 mg/dL Critically high 74-106 [facility] Comment on above: Performed By: #### C BC #### [facility] [address] [address] [address] Troy Jeter Potassium [Moles/Vol] 4.0 mmol/L Normal 3.5-5.1 [facility] Comment on above: Performed By: #### C BC #### [facility] [address] [place] [address] Dr. Troy Jeter Protein [Mass/Vol] 7.4 g/dL Normal 6.4-8.2 [facility] Comment on above: Performed By: #### C BC #### [facility] [address] [place] [address] Dr. Troy Jeter Sodium [Moles/Vol] 139 mmol/L Normal 136-145 [facility] Comment on above: Performed By: #### C BC #### [facility] [address] [place] [address] Dr. Troy Jeter Urea nitrogen [Mass/Vol] 16.0 mg/dL Normal 7.0-18.0 [facility] Comment on above: Performed By: #### C BC #### [facility] [address] [place] [address] Dr. Troy Jeter Urea nitrogen/Creatinine [Mass ratio] 15.1 mg/mg Normal [facility] Comment on above: Performed By: #### C BC #### [facility] [address] [place] [address] Dr. Troy Jeter CBC AUTO DIFFon 03-02-2023 BASO # 0.1 103/ul Normal 0.0-0.1 [facility] Comment on above: Performed By: #### C YTO #### [facility] [address] [place] [address] Dr. Troy Jeter Basophils/100 WBC (Bld) 0.9 % Normal 0.2-2.0 [facility] Comment on above: Performed By: #### C YTO #### [facility] [address] [place] [address] Dr. Troy Jeter EO # 0.2 103/ul Normal 0.0-0.7 [facility] Comment on above: Performed By: #### C YTO #### [facility] [address] [place] [address] Dr. Troy Jetre Eosinophils/100 WBC (Bld) 2.9 % Normal 0.9-7.0 [facility] Comment on above: Performed By: #### C YTO #### [facility] [address] [place] [address] Dr. Troy Jeter Erythrocyte distribution width (RBC) [Ratio] 15.3 % Critically high 11.0-15.0 [facility] Comment on above: Performed By: #### C YTO #### [facility] [address] [place] [address] Dr. Troy Jeter Hematocrit (Bld) [Volume fraction] 36.8 % Normal 36.0-48.0 [facility] Comment on above: Performed By: #### C YTO #### [facility] [address] [place] [address] Dr. Troy Jeter Hemoglobin (Bld) [Mass/Vol] 11.5 g/dL Critically low 12.0-16.0 [facility] Comment on above: Performed By: #### C YTO #### [facility] [address] [place] [address] Dr. Troy Jeter IG # 0.02 10e3/ul Normal 0.00-0.03 [facility] Comment on above: Performed By: #### C YTO #### [facility] Laboratory [address] [place] [address] Dr. Troy Jeter IG % 0.3 % Normal 0.0-0.5 [facility] Comment on above: Performed By: #### C YTO #### [facility] [address] [address] [address] Troy Jeter LYMPH # 1.5 103/ul Normal 1.2-3.8 [facility] Comment on above: Performed By: #### C YTO #### [facility] [address] [place] [address] Dr. Troy Jeter Lymphocytes/100 WBC (Bld) 24.8 % Normal 20.5-60.0 [facility] Comment on above: Performed By: #### C YTO #### [facility] [address] [place] [address] Dr. Troy Jeter MANUAL DIFF REQ NO Normal [facility] Comment on above: Performed By: #### C YTO #### [facility] [address] [place] [address] Dr. Tory Jeter MCH (RBC) [Entitic mass] 25.4 pg Critically low 26.7-34.0 [facility] Comment on above: Performed By: #### C YTO #### [facility] [address] [place] [address] Dr. Troy Jeter MCHC (RBC) [Mass/Vol] 31.3 g/dL Normal 29.9-35.2 [facility] Comment on above: Performed By: #### C YTO #### [facility] [address] [place] [address] Dr. Troy Jeter MCV (RBC) [Entitic vol] 81.4 fL Normal 81.0-99.0 [facility] Comment on above: Performed By: #### C YTO #### [facility] [address] [place] [address] Dr. Troy Jeter MONO # 0.5 103/ul Normal 0.3-0.8 [facility] Comment on above: Performed By: #### C YTO #### [facility] [address] [place] [address] Dr. Troy Jeter Monocytes/100 WBC (Bld) 8.4 % Normal 1.7-12.0 [facility] Comment on above: Performed By: #### C YTO #### [facility] Laboratory [address] [place], [place] [id number] Dr. Troy Jeter NEUT # 3.7 103/ul Normal 1.4-6.5 [facility] Comment on above: Performed By: #### C YTO #### [facility] [address] [address] [address] Troy Jeter Neutrophils/100 WBC (Bld) 62.7 % Normal 43.0-75.0 [facility] Comment on above: Performed By: #### C YTO #### [facility] [address] [address] [address] Troy Jeter Platelet mean volume (Bld) [Entitic vol] 9.2 fL Critically low 9.5-13.5 [facility] Comment on above: Performed By: #### C YTO #### [facility] [address] [place] [address] Dr. Troy Jeter PLT 193 103/ul Normal 150-450 [facility] Comment on above: Performed By: #### C YTO #### [facility] [address] [place] [address] Dr. Troy Jeter RBC 4.52 106/ul Normal 4.20-5.40 [facility] Comment on above: Performed By: #### C YTO #### [facility] [address] [place] [address] Dr. Troy Jeter WBC 5.9 103/ul Normal 4.0-11.0 [facility] Comment on above: Performed By: #### C YTO #### [facility] [address] [place] [address] Dr. Troy Jeter GLYCOHEMOGLOBIN A1Con 2022 ADA RECOMMENDATION SEE BELOW Normal [facility] Comment on above: Result Comment: ADA RECOMMENDED LIMIT 4.0 - 6.0 ADA THERAPEUTIC TARGET < 7.0 ACTION SUGGESTED > 7.0 Performed By: #### C BC #### [facility] [address] [place] [address] Dr. Troy Jeter Glucose [Mass/Vol] 123 mg/dL Normal [facility] Comment on above: Performed By: #### C BC #### [facility] [address] [address] [address] Troy Jeter HbA1c (Bld) [Mass fraction] 5.9 % Normal 4.5-6.2 [facility] Comment on above: Performed By: #### C BC #### [facility] Laboratory [address] [address] [address] Troy Jeter LIPID PROFILEon 03-02-2023 CHOL-HDL RATIO NORM SEE BELOW Normal [facility] Comment on above: Result Comment: 3.3 - 4.4 LOW RISK 4.4 - 7.1 AVERAGE RISK 7.1 - 11.0 MODERATE RISK >11.0 HIGH RISK Performed By: #### C YTO #### [facility] [address] [address] [address] Troy Jeter Cholesterol [Mass/Vol] 156 mg/dL Normal <=200 [facility] Comment on above: Performed By: #### C YTO #### [facility] [address] [address] [address] Troy Jeter Cholesterol in HDL [Mass/Vol] 64 mg/dL Critically high 40-60 [facility] Comment on above: Performed By: #### C YTO #### [facility] [address] [address] [address] Troy Jeter Cholesterol in LDL [Mass/Vol] 76.4 mg/dL Normal [facility] Comment on above: Performed By: #### C YTO #### [facility] [address] [address] [address] Troy Jeter Cholesterol.total/Ch olesterol in HDL [Mass ratio] 2.4 {ratio} Normal [facility] Comment on above: Performed By: #### C YTO #### [facility] [address] [address] [address] Troy Jeter HDL NORMAL > or = 60 mg/dl - LO W CARDIOVASCULAR RISK <40 mg/dl - HIGH CARDIOVASCULAR RISK Normal [facility] Comment on above: Performed By: #### C YTO #### [facility] [address] [address] [address] Troy Jeter LDL CALC NORMAL SEE BELOW Normal [facility] Comment on above: Result Comment: <100 mg/dl OPTIMAL 100 - 129 mg/dl NEAR OR ABOVE OPTIMAL 130 - 159 mg/dl BORDERLINE HIGH 160 - 189 mg/dl HIGH >190 mg/dl VERY HIGH Performed By: #### C YTO #### [facility] [address] [address] [address] Troy Jeter Triglyceride [Mass/Vol] 78 mg/dL Normal <=150 [facility] Comment on above: Performed By: #### C YTO #### [facility] [address] [place] [address] Dr. Troy Jeter VLDL CALC 15.6 mg/dL Normal [facility] Comment on above: Performed By: #### C YTO #### [facility] [address] [place] [address] Dr. Troy Jeter PROF 14(COMP METB)on 023 Albumin [Mass/Vol] 3.2 g/dL Critically low 3.4-5.0 Th [facility] Comment on above: Performed By: #### C YTO #### [facility] [address] [place] [address] Dr. Troy Jeter Albumin/Globulin [Mass ratio] 0.8 {ratio} Normal [facility] Comment on above: Performed By: #### C YTO #### [facility] [address] [place] [address] Dr. Troy Jeter ALP [Catalytic activity/Vol] 90 U/L Normal 46-116 [facility] Comment on above: Performed By: #### C YTO #### [facility] [address] [place] [address] Dr. Troy Jeter ALT [Catalytic activity/Vol] 58 U/L Normal 14-59 [facility] Comment on above: Performed By: #### C YTO #### [facility] [address] [place] [address] Dr. Troy Jeter Anion gap [Moles/Vol] 10.5 mmol/L Normal [facility] Comment on above: Performed By: #### C YTO #### [facility] [address] [place] [address] Dr. Troy Jeter AST [Catalytic activity/Vol] 40 U/L Critically high 15-37 [facility] Comment on above: Performed By: #### C YTO #### [facility] [address] [place] [address] Dr. Troy Jeter Bilirubin [Mass/Vol] 0.3 mg/dL Normal 0.2-1.0 [facility] Comment on above: Performed By: #### C YTO #### [facility] [address] [place] [address] Dr. Troy Jeter Calcium [Mass/Vol] 9.1 mg/dL Normal 8.5-10.1 [facility] Comment on above: Performed By: #### C YTO #### [facility] [address] [place] [address] Dr. Troy Jeter Chloride [Moles/Vol] 106 mmol/L Normal 98-107 [facility] Comment on above: Performed By: #### C YTO #### [facility] [address] [place] [address] Dr. Troy Jeter CO2 [Moles/Vol] 27.6 mmol/L Normal 21.0-32.0 [facility] Comment on above: Performed By: #### C YTO #### [facility] [address] [place] [address] Dr. Troy Jeter Creatinine [Mass/Vol] 1.01 mg/dL Normal 0.55-1.02 [facility] Comment on above: Performed By: #### C YTO #### [facility] [address] [place] [address] Dr. Troy Jeter EGFR-AF OMANI >60 Normal >=60 [facility] Comment on above: Performed By: #### C YTO #### [facility] [address] [place] [address] Dr. Troy Jeter EGFR-NON AF OMANI 55 mL/min/1.73m2 Critically low >=60 [facility] Comment on above: Performed By: #### C YTO #### [facility] [address] [place] [address] Dr. Troy Jeter Globulin (S) [Mass/Vol] 3.9 g/dL Normal [facility] Comment on above: Performed By: #### C YTO #### [facility] [address] [place] [address] Dr. Troy Jeter Glucose [Mass/Vol] 112 mg/dL Critically high 74-106 [facility] Comment on above: Performed By: #### C YTO #### [facility] [address] [place] [address] Dr. Troy Jeter Potassium [Moles/Vol] 4.1 mmol/L Normal 3.5-5.1 [facility] Comment on above: Performed By: #### C YTO #### [facility] [address] [place] [address] Dr. Troy Jeter Protein [Mass/Vol] 7.1 g/dL Normal 6.4-8.2 [facility] Comment on above: Performed By: #### C YTO #### [facility] [address] [place] [address] Dr. Troy Jeter Sodium [Moles/Vol] 140 mmol/L Normal 136-145 [facility] Comment on above: Performed By: #### C YTO #### [facility] [address] [place] [address] Dr. Troy Jeter Urea nitrogen [Mass/Vol] 14.0 mg/dL Normal 7.0-18.0 [facility] Comment on above: Performed By: #### C YTO #### [facility] [address] [place] [address] Dr. Troy Jeter Urea nitrogen/Creatinine [Mass ratio] 13.9 mg/mg Normal [facility] Comment on above: Performed By: #### C YTO #### [facility] [address] [place] [address] Dr. Troy Jeter TSHon 03-02-2023 TSH 3.047 uIU/mL Normal 0.358-3.740 [facility] Comment on above: Performed By: #### C YTO #### [facility] [address] [place] [address] Dr. Troy Jeter Retail - Clinical Noteon Retail - Clinical Note [id number]#1.00C D:[address] [facility] Ambulatory Visit Summaryon 0 01-04-2023 Ambulatory [...] 600 mg Tab) pantoprazole (Protonix 40 mg Tab-) Procedures Performed Cystoscopy (12/07/2022), Cystoscopy and transurethral [...] bladder f (more content not included)... Normal [facility] Patient Educationon 01-05-20 Patient Education Oncology [...] Follow these instructions at home: ? Take gzsh-ydx-zfooyvh and prescription medicines only as told by [...] important. Where to find more information ? [employer]: www.cancer.org ? National Cancer [place] (NCI): www.cancer.gov Contact a health care provider [...] 10/18/2004 Document Revised: 09/28/2018 Document Reviewed: 09/19/2017 [employer] Patient Education ? 2019 [employer] Eric [facility] Urology Office/Clinic Noteon 01-04-2023 Urology Office/Clinic [...] see if Blue Light Cystoscopy available at [facility] for TURBT to further evaluate and resect possible CIS. -Our office w/ consult with Dr. Booth regarding treatment in setting of suspected malignancy. 2. OAB (overactive bladder) (N32.81: Overactive bladder) Continues taking VESIcare 10mg daily. Improvement but still with sx Patient has new insurance and will attempt to get Myrbetriq covered. Has dianen (more content not included)... Normal [facility] Comment on above: Result Comment: Elec tronically Signed By: Reza JAMES, Dina Oconnell\.br\Date and Time Signed: 01/04/23 12:20 EST\.br\Electronically Co-Signed By: Pratibha Rodriguez\.br\Date and Time Co-Signed: 01/04/23 09:08 EST\.br\Electronically Co-Signed By: Pratibha Rodriguez\.br\Date and Time Co-Signed: 01/04/23 09:18 EST Lab Reportson 01-03-2023 Lab Reports [id number]#1.00C D:127 Normal [facility] Pathology Noteon 01-03-2023 Pathology Note [id number]#1.00C D:127 Normal [facility] Pathology Note [id number]#1.00CD :127 Normal [facility] Operative Reporton Operative Report [id number]#1.00C D:127 Normal [facility] Formson 12-29-2022 Forms [id number]#1.00C D:127 Normal [facility] CYTOLOGYon 12-28-2022 SENT TO REF LAB 12/28/2022 [facility] Comment on above: Performed By: #### C YTO #### [facility] [address] [place] [address] Dr. Troy Jeter Pre-Certification Formon Pre-Certification Form [id number]#1.0 0CD:127 Normal [facility] PROTIMEon 12-21-2022 INR Coag (PPP) [Relative time] 1.00 {INR} Normal [facility] Comment on above: Performed By: #### C YTO #### [facility] [address] [place] [address] Dr. Troy Jeter INR GUIDELINES SEE BELOW Normal [facility] Comment on above: Result Comment: LORENA RED INR: 2.0 - 3.0 CONDITIONS NOT LISTED BELOW 2.5 - 3.5 FOR PROSTHETIC HEART VALVE REPLACEMENT 2.5 - 3.5 RECURRENT THROMBOSIS Performed By: #### C YTO #### [facility] [address] [place] [address] Dr. Troy Jeter PT Coag (PPP) [Time] 10.6 s Normal 9.0-11.6 [facility] Comment on above: Performed By: #### C YTO #### [facility] [address] [place] [address] Dr. Troy Jeter PTTon 12-21-2022 aPTT Coag (Bld) [Time] 26.9 s Normal 22.3-36.2 [facility] Comment on above: Performed By: #### C YTO #### [facility] [address] [place] [address] Dr. Troy Jeter Coding Summary.on 12-17-2022 Coding Summary. CD:[id number] Gh0 bWw+PGhlYWQ+IV5BIAAxG44 ncFWghL8CJ5pOXT0IUSTCKI SYJA7USD4klOK1TAwqS5Vqw iAv JjdafLZiVD92HFw9AMD4aIb sCDfwvH3krXOhP8i9CyRlKI 64oW04WVgjQDUmDnV9MdIzf jsgbWFy Q0mqBqInxFRrEql+PHRhYmx lIHdpZHRoPScxMDAlJyBzdH psGN1xXe7lRDYoKHYkrNgxu HNlOiBj x6wwLVHfHXabYC3eqQelT0X mnBR6HNLnk4p1Zv91nQI+PH CyPUK9bMgoGZzlw685IdCwj 0juDFJ5 mQYwUUtfMXQ8A12mp9B6AYY lCKKvWTO3gGV1cU3gcEtkpk nlS9RxnMJwKaS7ILC0oQUhz T8edUpu evukjS8aAlm+J66HIZ0WDDH LMH4UYei6P2CoSncqbWY+PC 17SVNvJC92gJWjbXKxd4asa Hv3KnXw JEPqGNK5pTmlXGqox6KqOLF kE75bbHNpz3E9FBAtqDerqV GsGsVbcDW8vZ6wPCfhkvgyi 2hvdzsn Lsxux6zpuj86tB96T93bKGb pYDRlOJF3AUBhDQJomLepxa 1pxF9pEx0+PQbtl1wrc2imh Vq1KyJu IBItigTuqJtuSJX9v1BwYj0 9X0WnrHqaw4VzRpi9qn70jO Lwj5D3mIP4BQgrJCDxfT8nQ WxlZnQ6 CQSuWxLqzT67hMMeOGtbKn8 qpIrddHdyYG6gRGXtrzdxRK TrtD9kHIVavYPfaNckTV0bV TBpbjtm g072PoMxVFD9FRWfsKZqB1R haB9zCzZxHJKuYTEvI1FisR YxEXltG462EXvoMgO8DDQrw uUpQ8Ma LMBjyLqzAfL7g2G6Gu9Jh0Z trxunIUF5OWcaIDYiApW2Dw MtPuE7V2AaAvu9YSNghKoyZ G1oC1Mb ABGmclpebpmmlHB4FDSdCBZ gqM30lXToIMtrJi4ky6E4g9 17HRDyHZIjjB74Km6asDtzK TBwdCBU hL1teifnp6fweoztIoUaEHC wMGj5MNz7XBGarZmmOmTlRY Z8JiI4REW1bYTuzP4heRutj jmgaD6c Oyc+U64aoZ2pRUH0CKN7hdj pMIXzkhGdRT20NR77X9CuEh wvdGFibGU+PGRpdiBzdHlsZ R4zTfIb y1eag0BrNGkkY2VkNIOpGKx nZka0EXDdCNB4nNX3tZ8mZP IbVKnok0X7mPK3X6JhfdPmy r1fe5pv WLWpAWprS37rdEUsi9K5LZK zfTP8PZFnmPmiNnOjdT19Zr c+CPPcoCpev1CpDuulv6yym 0xuwHp7 KmVxNBByonYjqAnhKRT5c0H sBy28S10gXRpoEZJbKKMkEQ WuMRMnlGymzm1nhY8lAq0+P GNvbCB3 wIS8jJ0nFHBpOlQ6BZqtN14 8SwMyvMEwBzadf8pan2ebaG q1LlAnJPEppyEkfRbwDHY3y 7SpUh88 Q87dKDzfMQIyXNCeEWDoRPQ zpDqffw1abI8jQy0+PC9jb2 mctw46wY03rWH+UBUyRGH8c WxlPSdw MOBjxL7kUYphJnN0STOkNvY knC97qCUaIToyKs0kaVmnmS ohUV2jMORnwsedt702BiGae 2xkIDEw hODrNGqpUNV4C91fm9D2QYE iHKCzOMJ4nGL0mU6xsQfyvi ogbGVmdDsgdmVydGljYWwtY KazQ898 IHRvcDsnPlBhdGllbnQgTmF gCGs4M9GrDxx6ZBYvlHfoHB 0taHZeSMwtVx4kuLndfKkdH W6bATGn jhkpk797ZfKow6wjGWQsgPV yWKsmHHM3Z02fy1A3VKRrQN ClTKU2kWN1vZ7ggCrxdumaq GVmdDsg xbEkkKozQVbxWLghV728CRA rkHstHwTrkeLnREOlpQZ3RT 77SY44rYFwl0U2aVH2V9YhK GRpbmct xgrgoCZ8OVAyUNZojB03Fa5 qyDffHf0jDRDvYYO4HFKtmM BaS5QlpT2gDkSoWRUdQQXlS 3RleHQt XGcjD025XIedOpQ7XJOxzzZ sY9EyXIYkvHnvIvR9o4B7Qm 9BW8G2PC75FT67nFYay6F0u EC0H5Eg XSWgfbknhcexsEG9ANGgDXJ kgI37Xt0lwYctVl5fUAVnPT M0SBRpjUJnK5FkjZ8dUoUqK DAwMDAw Y3EslTWcOPvaI921GJikZrH 6RZBkjnJdM1LfUNAnhYquHq Y2c1L5Eu7QINp0PX68TX04o DIip2H4 rNM3L5AoLQNuhpkivmhcvKH 9QEWwGUAhkD73Sz6hdMfaPe 4oYUPqNBU4JPMdmDRuV6Van W3wHyNz NZTcNBLlC2TdeEGbTJaaF36 9DYczXyI7RSMaipIcX9MxDC DzrYniIiN0x5Y8Bp8NKPVpO D76JPB7 jRY2KQ30PZ26Q4SeJdbnnKW ibGU+PHRhYmxlIHdpZHRoPS eoZBJxVeJdfYllFZ1xAc7cO GVyLWNv uSbtnZOjHhUks3zwLUKsEWs tGJ4ugDhcF5LaxEU9QUBvu6 o7Zl04A36pA6NctLO+PGNvb BD2oST9 xR2jYiYyLaD6MCqzM758XwH bbFPwDotvc8qgl2fijUb0Ub K5QWXevbUtcDygYWL0l0XgP b75G74r IHdpZHRoPSIxNSUiIHZhbGl kyo6qjA2oIf3+DPYlkYR5gB I5vR2vSmEmTkE4EGlyI615A nRvcCIv Maasm9ngz9zlaVr4EeOuNSR zowJfeCrlXZU2v9UhRp73Z9 WgrFfds2VxNve5gu97jRZzw 1S4jYH3 U0LzJNIveakqiXNftKpyER3 sJVMdihvmCMJrqI7oVKTaO4 n6HlVpOvW4PQruM3MovoN9F DEwcHQg KXfsSOF3N32mn8Q3GCXoDYJ mLGS5fCY1rH7mzHwbhfguxA VmdDsgdmVydGljYWwtYWxpZ 246IHRv mNhtPYZrkG7yJUDiwZNsvFh zYE1zRSZsuorsXg6MKKiGQi bvQHLZWyoKKvTONF70NC22v KNtw4D9 fHI8K8AfNZQztqdwbkmftHW 0EUHgEOXtzB95yZAxOQlbAz 0yf6Q6n127KGWaQQOdwH28R z8hyWya GDUwaQGZtX3ahhhsm5jqevv cIwDtCLAxXBz1CYa4UMBadK vbMoEyKAD4UuV2ZSJ9sAUcr J5xxQvj qulqnY4oJco+MDgvMjIvMTk 1ODwvdGQ+KLXsWSB6cQdrCR hzTEQnrV8qJLSjT7b5XtLsV hV9FQav Q0RxLZMdoiauVy55aM4jVxC hRrK1JKhhZ8UvbaI0BBKdeV BcSPauSCO0X16yn2D5GMEoM DAwMDA7 gCT4uC6ieQrlfuzifGUmzTe qzbAkcCajQLiyEEpdT182HA VrhPqyJfZ3KKlcZGIwLF62C R33nFLn n2C6mRD6N9BlIIQbhxpftmb yxLA0BEWuZLHseY48gHLyIF lrAf5dt2K5b544CMKfVUIdb V14Zn9w dYdfZVSobIHLaP9oxvafs9p vzfcvXxJoXCCtJLq2YDd9LE DbwCyjPwEbVXA7NvW4YJH8g TZgaG9i jMukjxyxyH9tKdd+RmVtYWx rCT77HC98jJRae7C1aKB7K0 YyAJHjzialubbauXS0EPLlW DUwaW47 mWLgZWnkAo7iq1S3v138VMC wHLLuuN89Xj3ptAtjFTDdkK LSmY5safidv9gcrsbqWvEsT DAwMDt0 TJv5NKRakYtzHyMpXZX6YhC 5CHF5dKRveM5wlWbleaygvV 9wOyc+WCWdRCXzy9Vyi4WgQ S69SA91 D6LwGtmiqOPuuLX+PHRhYmx lIHdpZHRoPScxMDAlJyBzdH xuAN1cUv3mCHHrXDMeiXzeu HNlOiBj a6onXDGrGPohOF1uiDjaF0F ltBR2OZGrv0a3Zs22E43zE5 JvdXA+NCMebFI6bYF1mY2tQ zAlIiB2 IQorD084PqZzhYNzHbtmg9v wz5tfkDk0QsXeFGPntlSunE fuXPM2r8RwYw66R22mQUqfY HRoPSIy QWXhSWJcbNmgdz3mnV9nZb5 +EXFxpSG1rED5aC0vObQqPs C8TLlxI273EhPixJAwValrW 86xC5Mz dXA+BWJuKck0NEOaxIaeSA6 utZRcHYtjXo5qGRP1WdEzTw EpPDsrC3FpTBKdnbzsndzdj BP2WZCf RWTktE51Og1alVxfRl7xPKL aHWT6TNEqhLTaX0OtrU5sBi FrQMVyGUEfX8JjxFScMSmuL 246IGxl AcG8YOZyddHsE8OjRCSzsJg sFdA6q2G2Vw9LtEgxoQTjMY 3kPsPwAOl2J4PjAkd4TZMel UpyUT6v rXAsVQufPz3osZypfGioAL4 xPRDmvsqhj125IuNnz9bbOM NbtMVdYOefAGG6G54wc6B6L CMwMDAw KSR4uOD2dX4uxFqhblmroXT mdDsgdmVydGljYWwtYWxpZ2 13LDLoiXpwAcIOWws2T8CxC ap6TSUz dNprVC2bqKRuBDwtRq0pwKh scDsrYA9qSBTuaayog647Qm Ecx0rhXYZjdLCcKPukEUP2K 72ze5Z9 ROSkMXDmHUQ0xQA6fD7goOr nbjogbGVmdDsgdmVydGljYW feHGyqJ181STCfwBqmKl5IQ vp1C7Tg Ujn9MRGjnEvyEJ2ylIKhFFp bOc5wcOhvzJydLH3xESRlxj izg617GbJxm0uxTYUxhNCyI GltZXM7 C86jl3A5TZIaUWTvBZT1rSP 1tA6fsXbebikktOXpvAtjhr OyjYlgKJbmXCepH122IJOqz DsnPlBh eWVyOjwvdGQ+UQ24fe85S0V mZwvwDxe3KZWhHFC7uYG8dC 6kQPDcORpxv9C3dXZ2E7Wua qMczz9d b2xs (more content not included)... Normal [facility] C Urineon 12-16-2022 Bacteria identified [...] Locations R1: This test was performed at: [facility], [address] [place] [address], [facility] , , [facility] Comment on above: Performed By: #### 2 [id number] ####[facility] [address] [place] [address] Ambulatory Visit Summaryon 0 12-14-2022 Ambulatory Visit [...] Urothelial carcinoma of bladder Vaginal atrophy Normal [facility] Operative Reporton Operative Report [id number]#1.00C D:127 Normal [facility] Pathology Noteon 12-13-2022 Pathology Note [id number]#1.00C D:127 Normal [facility] CYTOLOGYon 12-07-2022 SENT TO REF LAB 12/07/2022 Normal [facility] Comment on above: Performed By: #### C YTO #### [facility] [address] [place] [address] Dr. Troy Jeter Insurance Correspondenceon 0 11-25-2022 Insurance Correspondence [id number]#1.00CD :127 Normal [facility] CBC AUTO DIFFon 11-23-2022 BASO # 0.1 103/ul Normal 0.0-0.1 [facility] Comment on above: Performed By: #### C BC #### [facility] [address] [place] [address] Dr. Troy Jeter Basophils/100 WBC (Bld) 1.0 % Normal 0.2-2.0 [facility] Comment on above: Performed By: #### C BC #### [facility] [address] [place] [address] Dr. Troy Jeter EO # 0.1 103/ul Normal 0.0-0.7 [facility] Comment on above: Performed By: #### C BC #### [facility] [address] [place] [address] Dr. Troy Jeter Eosinophils/100 WBC (Bld) 2.4 % Normal 0.9-7.0 [facility] Comment on above: Performed By: #### C BC #### [facility] [address] [place] [address] Dr. Troy Jeter Erythrocyte distribution width (RBC) [Ratio] 14.6 % Normal 11.0-15.0 [facility] Comment on above: Performed By: #### C BC #### [facility] [address] [place] [address] Dr. Troy Jeter Hematocrit (Bld) [Volume fraction] 37.7 % Normal 36.0-48.0 [facility] Comment on above: Performed By: #### C BC #### [facility] [address] [place] [address] Dr. Troy Jeter Hemoglobin (Bld) [Mass/Vol] 11.0 g/dL Critically low 12.0-16.0 [facility] Comment on above: Performed By: #### C BC #### [facility] [address] [place] [address] Dr. Troy Jeter IG # 0.02 10e3/ul Normal 0.00-0.03 [facility] Comment on above: Performed By: #### C BC #### [facility] [address] [place] [address] Dr. Troy Jeter IG % 0.4 % Normal 0.0-0.5 [facility] Comment on above: Performed By: #### C BC #### [facility] [address] [place] [address] Dr. Troy Jeter LYMPH # 1.3 103/ul Normal 1.2-3.8 [facility] Comment on above: Performed By: #### C BC #### [facility] [address] [place] [address] Dr. Troy Jeter Lymphocytes/100 WBC (Bld) 25.5 % Normal 20.5-60.0 [facility] Comment on above: Performed By: #### C BC #### [facility] [address] [place] [address] Dr. Troy Jeter MANUAL DIFF REQ NO Normal [facility] Comment on above: Performed By: #### C BC #### [facility] [address] [place] [address] Dr. Troy Jeter MCH (RBC) [Entitic mass] 25.9 pg Critically low 26.7-34.0 [facility] Comment on above: Performed By: #### C BC #### [facility] [address] [place] [address] Dr. Troy Jeter MCHC (RBC) [Mass/Vol] 29.2 g/dL Critically low 29.9-35.2 [facility] Comment on above: Performed By: #### C BC #### [facility] [address] [place] [address] Dr. Troy Jeter MCV (RBC) [Entitic vol] 88.7 fL Normal 81.0-99.0 [facility] Comment on above: Performed By: #### C BC #### [facility] [address] [place] [address] Dr. Troy Jeter MONO # 0.4 103/ul Normal 0.3-0.8 [facility] Comment on above: Performed By: #### C BC #### [facility] [address] [place] [address] Dr. Troy Jeter Monocytes/100 WBC (Bld) 8.6 % Normal 1.7-12.0 [facility] Comment on above: Performed By: #### C BC #### [facility] [address] [place] [address] Dr. Troy Jeter NEUT # 3.2 103/ul Normal 1.4-6.5 [facility] Comment on above: Performed By: #### C BC #### [facility] [address] [place] [address] Dr. Troy Jeter Neutrophils/100 WBC (Bld) 62.1 % Normal 43.0-75.0 [facility] Comment on above: Performed By: #### C BC #### [facility] [address] [place] [address] Dr. Troy Jeter Platelet mean volume (Bld) [Entitic vol] 9.4 fL Critically low 9.5-13.5 [facility] Comment on above: Performed By: #### C BC #### [facility] [address] [place] [address] Dr. Troy Jeter PLT 190 103/ul Normal 150-450 [facility] Comment on above: Performed By: #### C BC #### [facility] [address] [place] [address] Dr. Troy Jeter RBC 4.25 106/ul Normal 4.20-5.40 [facility] Comment on above: Performed By: #### C BC #### [facility] [address] [place] [address] Dr. Troy Jeter WBC 5.1 103/ul Normal 4.0-11.0 [facility] Comment on above: Performed By: #### C BC #### [facility] [address] [address] [address] Troy Jeter PROF 14(COMP METB)on 023 Albumin [Mass/Vol] 3.4 g/dL Normal 3.4-5.0 [facility] Comment on above: Performed By: #### C BC #### [facility] [address] [address] [address] Troy Jeter Albumin/Globulin [Mass ratio] 0.9 {ratio} Normal [facility] Comment on above: Performed By: #### C BC #### [facility] [address] [address] [address] Troy Jeter ALP [Catalytic activity/Vol] 99 U/L Normal 46-116 [facility] Comment on above: Performed By: #### C BC #### [facility] [address] [place] [address] Dr. Troy Jeter ALT [Catalytic activity/Vol] 67 U/L Critically high 14-59 [facility] Comment on above: Performed By: #### C BC #### [facility] [address] [address] [address] Troy Jeter Anion gap [Moles/Vol] 12.8 mmol/L Normal [facility] Comment on above: Performed By: #### C BC #### [facility] [address] [place] [address] Dr. Troy Jeter AST [Catalytic activity/Vol] 54 U/L Critically high 15-37 [facility] Comment on above: Performed By: #### C BC #### [facility] [address] [address] [address] Troy Jeter Bilirubin [Mass/Vol] 0.4 mg/dL Normal 0.2-1.0 [facility] Comment on above: Performed By: #### C BC #### [facility] [address] [place] [address] Dr. Troy Jeter Calcium [Mass/Vol] 9.3 mg/dL Normal 8.5-10.1 [facility] Comment on above: Performed By: #### C BC #### [facility] [address] [place] [address] Dr. Troy Jeter Chloride [Moles/Vol] 106 mmol/L Normal 98-107 [facility] Comment on above: Performed By: #### C BC #### [facility] [address] [address] [address] Troy Jeter CO2 [Moles/Vol] 24.9 mmol/L Normal 21.0-32.0 [facility] Comment on above: Performed By: #### C BC #### [facility] [address] [place] [address] Dr. Troy Jeter Creatinine [Mass/Vol] 0.89 mg/dL Normal 0.55-1.02 [facility] Comment on above: Performed By: #### C BC #### [facility] [address] [place] [address] Dr. Troy Jeter EGFR-AF OMANI >60 Normal >=60 [facility] Comment on above: Performed By: #### C BC #### [facility] [address] [place] [address] Dr. Troy Jeter EGFR-NON AF OMANI >60 Normal >=60 [facility] Comment on above: Performed By: #### C BC #### [facility] [address] [place] [address] Dr. Troy Jeter Globulin (S) [Mass/Vol] 3.7 g/dL Normal [facility] Comment on above: Performed By: #### C BC #### [facility] [address] [place] [address] Dr. Troy Jeter Glucose [Mass/Vol] 125 mg/dL Critically high 74-106 [facility] Comment on above: Performed By: #### C BC #### [facility] [address] [place] [address] Dr. Troy Jeter Potassium [Moles/Vol] 3.7 mmol/L Normal 3.5-5.1 [facility] Comment on above: Performed By: #### C BC #### [facility] [address] [place] [address] Dr. Troy Jeter Protein [Mass/Vol] 7.1 g/dL Normal 6.4-8.2 [facility] Comment on above: Performed By: #### C BC #### [facility] [address] [address] [address] Troy Jeter Sodium [Moles/Vol] 140 mmol/L Normal 136-145 [facility] Comment on above: Performed By: #### C BC #### [facility] [address] [address] [address] Troy Jeter Urea nitrogen [Mass/Vol] 15.0 mg/dL Normal 7.0-18.0 [facility] Comment on above: Performed By: #### C BC #### [facility] [address] [address] [address] Troy Jeter Urea nitrogen/Creatinine [Mass ratio] 16.9 mg/mg Normal [facility] Comment on above: Performed By: #### C BC #### [facility] [address] [address] [address] Troy Jeter XR HAND RT MIN [...] by: JULISSA KAUFMAN Date: 2022-11-05 08:18 Normal [facility] Ambulatory Visit Summaryon 12-27-2021 Ambulatory Visit Summary DANIELLA BEJARANO :1960 Visit Date:10/26/2022 Ambulatory Visit Instructions Your Diagnosis Bladder cancer OAB (overactive bladder) History of UTI Vaginal atrophy Tests Performed Urnls Dip Stick Auto w/o Microscopy POC 10389 Your Care Team Attending Physician - AI [...] AI MITCHELL PA-C, URL When: Where: [address] [place] [address] Medications What How Much When Instructions Unchanged [...] Urnls Dip Stick Auto w/o Microscopy POC 24417 (10/26/2022) Bilirubin Urine Dipstick - Negative Blood Urine Dipstick - Negative Glucose Urine Dipstick - Negative Ketones Urine Dipstick - Negative Leukocytes Urine Dipstick - Negative Nitrite Urine Dipstick - Negative Protein Urine Dipstick - Negative Specific [place] Urine Dipstick - 1.020 Urine Appearance Urine [...] Urothelial carcinoma of bladder Vaginal atrophy Normal [facility] Urology Office/Clinic Noteon 10-26-2022 Urology [...] Contact Information RUY VALLE, AI Alejandro, URL [address] [place] [address] Additional Instructions: F/U nov 2022 cysto/cyto Patient [...] Cigarettes, 10/12/2022 (more content not included)... Normal [facility] Comment on above: Result Comment: [...] Urnls Dip Stick Auto w/o Microscopy POC 21058 Your Care Team Attending Physician - Reza [...] AI MITCHELL PA-C Where: [facility] Patient Educationon 10-19-20 Patient Education Oncology [...] Follow these instructions at home: ? Take addp-vvv-tccsifv and prescription medicines only as told by [...] important. Where to find more information ? [employer]: www.cancer.org ? National Cancer Dumas (NCI): www.cancer.gov Contact a health care provider [...] 10/18/2004 Document Revised: 09/28/2018 Document Reviewed: 09/19/2017 [employer] Patient Education ? 2019 [employer] [facility] Urology Office/Clinic Noteon 10-19-2022 Urology Office/Clinic [...] -Will return in 1 week for BCG #3/. Pt agrees with plan. -Next 3 month [...] 10/19/2022 08:13:27. . Documentation recorded by the scribe, Shaylee Bermudez, accurately reflects the services(s) I performed and [...] Brother. Immun (more content not included)... Normal [facility] Comment on above: Result Comment: Elec tronically Signed By: Dina Cobb MD\.br\Date and Time Signed: 10/19/22 08:20 EST\.br\Electronically Co-Signed By: Shaylee Bermudez\.br\Date and Time Co-Signed: 10/19/22 08:13 EST Consent for Procedure/Surger yon 10-12-2022 Consent for Procedure/Surgery [id number] D:127 Normal [facility] Patient Educationon 10-12-20 22 Patient [...] Follow these instructions at home: ? Take bpvl-zkr-vivyyuc and prescription medicines only as told by [...] important. Where to find more information ? [employer]: www.cancer.org ? National Cancer Dumas (NCI): www.cancer.gov Contact a health care provider [...] 10/18/2004 Document Revised: 09/28/2018 Document Reviewed: 09/19/2017 [employer] Patient Education ? 2019 [employer] Normal [facility] Urology Office/Clinic Noteon 10-12-2022 Urology [...] No qualifyi (more content not included)... Normal [facility] Comment on above: Result Comment: Elec tronically Signed By: Dina Cobb MD\.br\Date and Time Signed: 10/12/22 09:01 EST\.br\Electronically Co-Signed By: Paulina Valenzuela.br\Date and Time Co-Signed: 10/12/22 08:44 EST Pathology Noteon 08-17-2022 Pathology Note [id number]#1.00C D:127 Normal [facility] Operative Reporton Operative Report [id number]#1.00C D:127 Normal [facility] CYTOLOGYon 08-10-2022 SENT TO REF LAB 08/10/22 [facility] Comment on above: Performed By: #### C YTO #### [facility] [address] [place] [address] Dr. Troy Jeter Lab Reportson 07-29-2022 Lab Reports [id number]#1.00C D:127 Normal [facility] CULTURE URINEon 07-28-2022 CULTURE URINE [...] F Meropenem S F Tetracycline R F [facility] Comment on above: Performed By: #### C YTO #### [facility] [address] [place] [address] Dr. Troy Jeter Lab Reportson 07-27-2022 Lab Reports [id number]#1.00CD :127 Normal [facility] Lab Reports [id number]#1.00C D:127 Normal [facility] C Urineon 07-08-2022 Bacteria identified [...] Locations R1: This test was performed at: [facility], [address] [place] [address], [address] , [place], Normal [facility] Comment on above: Performed By: #### 2 [id number] ####[facility] [address] [place] [address] Coding Summary.on 07-08-2022 Coding Summary. CD:[id number] Gh0 bWw+PGhlYWQ+TO1VWDIyR24 scRHekH6VD9hEUA1QKIBRRV GOBR3JNS6clJT8XFriZ4Zxx iAv AncpyRQbDW24VEs0HRW1dQj iDGevcM9ieRYvA3k2PuAjMJ 61oP53BUzeBNXhEtL2JgFbr jsgbWFy I7pfGzLseLJzWbb+PHRhYmx lIHdpZHRoPScxMDAlJyBzdH ovGA3iTa2aLAFxEYMjvWqzq HNlOiBj o1vcKALjGItrSV4sxRrgO6L qxND7EREzt3m3Os33kHT+PH UeLYU5dRdxVVsqk383KxSgy 2sdZQQ8 iTEoVCxzOBP9G82ug3B8WDR hOSAyKHG2tVI5lT2coYgrtk unW7GofIPqUvZ0YLS3cLRos L1ywEdl brtrhH9oVoq+W87QQU2JMLG NRB9KHwy2R5UaShwqzCQ+PC 88OWXpID62gLHbbVRin8vel Pf1PvNt VTKnKAP6cTneJSent5FvGIF mI37juSRnt9V4FOCdqXwbfB FbDlRsjRE3pA2fEKefalkhe 2hvdzsn Exjtk0cyzz50zJ25V92jEVs sJCFrEEH1PGSiZQYczKywnb 7mkJ1xEa0+ZIrrr1epn1eda Gi3SwZl APSuylMtpTxiAIC0p6SzQm2 7T9HqcRhly8JnIii1go20rW Bql4I3hTL3SXjgSMRgcM0yQ WxlZnQ6 RTYcWmFpgB54hWYeXSxoMe5 kcQngnSftXJ8gQTFoyqkbWJ CuxR2jCUKhzSNeiQiyWK0aR TBpbjtm a068WzSbDBX2LHMafGJzD5S crB0xYjAwTSYpXXCbU7IvlQ AeUChdQ771AIpgPfQ0TDMtk fTqL6Vn JTCvuCbeSsT7j6Z8Hk8Gr6B hrvuxSSO0BAndWQO4ImE8Rr ZtMqA7E5MxYrb7UNQeyDsrY K0tK6Tj UTWfvrtsmqrifGQ1SCYjCFE xvO82tRKcFSzaFq3zy4F3p7 58HUPlILAadS30Zm5roAavA TBwdCBU dA2jnqtlt4qurzraEtNvGCY aZFn6OWh3SPDxeRnwUvFcNN S9ItF6HEF0pLWkgY5jjCick hvczX9j Oyc+L10hnA6kHME2ACW3lcj vTQKnjjOzUR09ZY59Y3AmYt wvdGFibGU+PGRpdiBzdHlsZ Z6aEdTj z3zob1SiBSrcS9DfKUKcXHo yCws1FTTkCNG1uAQ7uU1qOD CwAFsdo5C8wRI9S3WutnCiw p6lm6ow QFZiXTovK52twARfs5E8LQB ejYT3MQPteZccGtWnjN04Xs c+DGUqqYrbz8NsFrfji5xnn 1kmmHd5 AdSqDIByiaYtrFeyUEO6y2E tCr88K81zDXulLFZqHUOzKP UcOPSecXbonj7hsJ0tHm8+P GNvbCB3 dRQ0uN0oMRKqChV8GIcrY78 5NsGzoQNtUbfxt2lns6xnfR p8MtQkIHBflkZeaCmuWCF6v 6FhUu31 D04fCRjdPERtEXGyRWZvNLK diIaosa7ppC4aLd5+PC9jb2 urwl20eU90yKN+PZBfFUT0n WxlPSdw DAPnlE4xIAcbJdT3PHGiJhE pqT13mWZqRHahMn8njHkcjA ffOC8hIYSoxwwpa878GtWgk 2xkIDEw rHCwUImeSPP5J26ai8Q5AHR fLAPyVLN5rLZ4rR1jjBplla ogbGVmdDsgdmVydGljYWwtY LtlF615 IHRvcDsnPlBhdGllbnQgTmF lDMn2H6PeNmt8IPCocIlqZS 2ejOAkJPhpCr0npPpsfAogE S9kJAVw yxwhv085TvNuh1rwMNMcqUU sIEdxVHY4U74gh2C5QKSrHK WxINO6vTC7xZ9ewItehwfnd GVmdDsg ayLvpYqaOFfhJRbaV215AKJ ryRvuUxWmqsSwWGKkjSN3MW 03CD44nRAit9A5pUG1F9XvF GRpbmct xegihZV5RBMlJCMwzI22Ks9 vvItfKl8yOXUhOAG0VCJptV SbA6AsyP9pLeUzUNSuOGJvQ 3RleHQt RYqcJ514ZLnkGkD2MRReheM iX1LjERRheEhdYfM9u4W8Xu 7ZG4T0RP31RH90jVFof3B2d KT4Q5Wk AXUdbelirssghCH9NYEcJKH fhV67Ya3agVhjKp8zUVAcHZ A3MHMypXHxT5ZojW8qKxStF DAwMDAw R3EyaRYhFObgA775CUctLqJ 2NRNwrbUxZ8ZlYPYutJtbWm G4a8M3Nh6TOZj5QF39AU56a DWfk9Z5 tXT7I5RtTSAbiyxpkoxeoML 9ZBNuLLDqpI59Lm8bxGlaPe 0dCCKlXXJ0JJAihLKnZ2Wpj U2zDpYl VOSfLXRgN4IzvNBzVFaxZ14 5KVomHmN9NHMlypXqJ9AeAK KvhJurFuW7q8J1Ev3BZKJyQ T26YTM6 lTH2QQ28JK22Y0UbJqcluGS ibGU+PHRhYmxlIHdpZHRoPS kdGHFlSxZiqOrqHZ1mYb5uO GVyLWNv rAygiTQqXpSrl5zvQIAlDQl nNJ6xnQhmN5BceAA1TFIln1 s2Lf71R11uO1StuIW+PGNvb YW8yVP6 iI0pTyGzEvN0PIyfX394CaS xaLQoImjdq7dus5puuCa6Sk L6VXJvpfJowSnpKQN0h6DyK g18Q78b IHdpZHRoPSIxNSUiIHZhbGl yud0nzN2hZf5+ITXcnXG5wX J6wE5fOsIuViD4VXcvN056M nRvcCIv Xintd7yve5fceTf7KkUkXLL qtsCjuPgsYTE1f7GkDa16B3 ZdkFoxe3YlSgm7lh90fFKpz 4B1aKX3 C9LlWAHumzyypHUkzYeuMQ9 kUBKsxzstDPWneJ1sGBJkR4 z8CzObFzG0JYpxF0TijdB3G DEwcHQg VFsfGHW6U90nr4U3XGMqPBP nKMI5jMU0pP3uqZfgachmgY VmdDsgdmVydGljYWwtYWxpZ 246IHRv tKeuUPKfbZ8xTUCblRAdmPb iRW0xVUVqxvhwUy8ZQVlSBv pvHCYYNgbPGjFPGV19WN49n FIad9X0 pMP2M8VqPKKtkfwsmzruuEA 9CNRjUUVlaA06gOJsXHuuFr 7ag2R1z405CIOqUTSvsC37A b7fpByz TNMdjUNHdB1drrclo7nocnd lYiOjVSIpTRn3URe2KGXspX jvZpZbPIG1UkB7ITQ3tQEdo O5iiRux avghnD9tUxz+MDgvMjIvMTk 1ODwvdGQ+TOGwZDO9eAdxDV jqCMJdjK9kRMDtV0m4UtBeZ yQ9TKtp A2DrPVHdrfcmWl71rJ2iRoU vTjW9XRktS7IwhvF8FZPaiT WzTEamPUQ1M27to4E5ICEqX DAwMDA7 cJI5wX1hvWeteadfuTZnqDt bycEngLzpSSgzEDyuG915FS AswVqpUvR3NMjrPTQoEW65I G78jWFg x9M1jCX7U3BvBVIngohzosv jgDW3XBSrPRWtgO79bXXgSY lxOa0nv6J6c623JMQgQIFbw C06Kg2k lLfeOCYzkOGAbD1fvxpnp0v rckdcNqIbKJEvSBs8ZQb2DF PuvXfiRfFsIJZ0MuQ8PJS9j TPipA1u lYokgzvqzO8qHzg+RmVtYWx gFD31AZ36uMKem6P8cNK8C5 UkFVMvlvigikhfqVL7XMWjC DUwaW47 dHAhJUlnSd6nt1D7u868PHA nPIFptB80Jb3ybAupTDCujT SMuA0zovepk9yesfywWoHwX DAwMDt0 BCy1KWVukAxuPkKnOUK5PkP 8QEE5rWQwmW6okFcxisfkcR 9wOyc+ACFoMEMdt3Qwj6IcB Y47HI30 G9YyUtkauSBldXW+PHRhYmx lIHdpZHRoPScxMDAlJyBzdH veYP7mOn6bFYFdSHNmnXvql HNlOiBj k5idIOHlSRanOP7fxAbpB6K enAQ1FGZwr3a4Qh53V94sW4 JvdXA+VPGifZQ2gNZ8pL7aF zAlIiB2 HOygP463UaZrtXQuSqich6d pr2bjbEl2EdQnNHZictFmbP xvIXI6m3BdZc20S59vUGnaW HRoPSIy POPnUIBhmOxwgi5ymI3fOk3 +TQJkuPX6zCV5lW1vBjTvKj K3ZEqgB643QlHhhEOjRtbyG 00nF3Ex dXA+SJIlXug7FOUtsTtiQL0 grJFkJPerXx3nGEM0XoMgKt KzMBauM8BwQQMpjadlcekdg DU1AKFg XYAerT40Sp1iuQfrCd4oJRV fNMZ4YUQcpCWeY3UnaA9rCj TpLQNgBMJkF4KwmXFtBSibS 246IGxl DdM9UYZxshAsU4AzGWOkmPy nWzM9v6W1Ww2QpImupSIgYD 7gAwNmRBy1P0VeIuu7OGJkl ZhlYS3q aDZxGFqpZv7pvBvdaGhwHN5 yFYKlzhrxf933YqIcg0rxLH IspDKmMQnqBXY0W91pe0C6T CMwMDAw DWG3kXU4tF3mnIopuiqluLP mdDsgdmVydGljYWwtYWxpZ2 71HVTrzWnbQcWMKla3G2NbD tw4IWOd eNsdYO8nuJPpVIecVb1ymYn kuHotVE0oRSNoxraza230Xq Bwq9unQPHmfUCqNEsiORN1T 28gr9T6 RHZgBGWdTVL1zKN5uE6kqPd nbjogbGVmdDsgdmVydGljYW fhYWriB243ZIBfaXynTm5GN ix6D4Sa Jzf4VKXqjLzhHZ5sjDBnSIi sYf6oxGvncWqeII6nXSUyuv dvp555TwFrr0lyCOWkbOVlM GltZXM7 O79ct9C3FXDyGDMiUZU1vHD 3pB3ouZpbjqokaEWzaFpqgs OonWpaBQizBBejP844WBEpt DsnPlBh eWVyOjwvdGQ+PZ62pw66B7L uGnyzEmy5GJUpYMR9bYQ4wI 3zROWcQWyul0D0hYI6W6Rzu kTcno4m b2xs (more content not included)... Normal [facility] Ambulatory Visit Summaryon 0 07-06-2022 Ambulatory Visit Summary DANIELLA BEJARANO :1960 Visit Date:07/06/2022 Ambulatory Visit Instructions Your Diagnosis Bladder cancer OAB (overactive bladder) History of UTI Vaginal atrophy Tests Performed Urnls Dip Stick Auto w/o Microscopy POC 56279 Your Care Team Attending Physician - Reza [...] Follow Up with Reza JAMES, Dina Oconnell, ISAIAH, URO When: Where: Medications What How Much [...] Urnls Dip Stick Auto w/o Microscopy POC 41138 (07/06/2022) Bilirubin Urine Dipstick - Negative Blood Urine Dipstick - Trace-intact Glucose Urine Dipstick - Negative Ketones Urine Dipstick - Negative Leukocytes Urine Dipstick - 2+ Moderate Nitrite Urine Dipstick - Positive Protein Urine Dipstick - Negative Specific [place] Urine Dipstick - 1.025 Urine Appearance Urine Dipstick - Cloudy Urine Color Urine Dipstick - Yellow Urobilinogen Urine Dipstick - Normal 0.2-1 EU/dl pH Urine Dipstick - 5.5 Medications and Immunizations Administered Given Study [place] BCG Live (for intravesical use), 50 mg, [...] paint. ? (more content not included)... Normal [facility] Patient Educationon 07-06-20 Patient Education [...] Follow these instructions at home: ? Take yfoe-zeu-lhwyqgh and prescription medicines only as told by [...] important. Where to find more information ? [employer]: www.cancer.org ? National Cancer Dum[place] (NCI): www.cancer.gov Contact a health care provider [...] 10/18/2004 Document Revised: 09/28/2018 Document Reviewed: 09/19/2017 [employer] Patient Education ? 2019 [employer] [facility] Urology Office/Clinic Noteon 07-06-2022 Urology Office/Clinic [...] ago To (more content not included)... Normal [facility] Comment on above: Result Comment: Elec tronically Signed By: Dina Cobb MD\.br\Date and Time Signed: 07/06/22 11:31 EDT\.br\Electronically Co-Signed By: Pratibha Rodriguez\.br\Date and Time Co-Signed: 07/06/22 10:33 EDT\.br\Electronically Co-Signed By: Pratibha Rodriguez\.br\Date and Time Co-Signed: 07/06/22 10:34 EDT BUNon 07-01-2022 Urea nitrogen [Mass/Vol] 14.0 mg/dL Normal 7.0-18.0 [facility] Comment on above: Performed By: #### C YTO #### [facility] [address] [address] [address] Troy Jeter CREATININEon 07-01-2022 Creatinine [Mass/Vol] 1.04 mg/dL Critically high 0.55-1.02 [facility] Comment on above: Performed By: #### C YTO #### [facility] [address] [address] [address] Troy Jeter EGFR-AF OMANI >60 Normal >=60 [facility] Comment on above: Performed By: #### C YTO #### [facility] [address] [place] [address] Dr. Troy Jeter EGFR-NON AF OMANI 53 mL/min/1.73m2 Critically low >=60 [facility] Comment on above: Performed By: #### C YTO #### [facility] [address] [place] [address] ABD/PELV WO W [...] by: SPARKLE RODRIGUEZ Date: 2022-07-01 11:40 Normal [facility] Ambulatory Visit Summaryon 0 06-29-2022 Ambulatory Visit Summary DANIELLA BEJARANO :1960 Visit Date:06/29/2022 Ambulatory Visit Instructions Your Diagnosis Bladder cancer OAB (overactive bladder) History of UTI Vaginal atrophy Tests Performed Urnls Dip Stick Auto w/o Microscopy POC 61271 Your Care Team Attending Physician - Reza [...] Follow-Up Appointments Monday 10:15 AM EDT With: Dina Cobb MD Where: [facility] Normal [facility] Patient Educationon 06-29-20 Patient Education [...] Follow these instructions at home: ? Take fmmh-fta-bfiglwj and prescription medicines only as told by [...] important. Where to find more information ? [employer]: www.cancer.org ? National Cancer Dum[place] (NCI): www.cancer.gov Contact a health care provider [...] 10/18/2004 Document Revised: 09/28/2018 Document Reviewed: 09/19/2017 [employer] Patient Education ? 2019 [employer] [facility] Urology Office/Clinic Noteon 06-29-2022 Urology [...] Immunizations Vacc (more content not included)... Normal [facility] Comment on above: Result Comment: [...] by: FRANNY ZEE Date: 2022-05-26 13:26 Normal [facility] PROTIMEon 05-04-2022 INR Coag (PPP) [Relative time] 1.00 {INR} Normal [facility] Comment on above: Performed By: #### C YTO #### [facility] [address] [place] [address] Dr. Troy Jeter INR GUIDELINES SEE BELOW Normal [facility] Comment on above: Result Comment: LORENA RED INR: 2.0 - 3.0 CONDITIONS NOT LISTED BELOW 2.5 - 3.5 FOR PROSTHETIC HEART VALVE REPLACEMENT 2.5 - 3.5 RECURRENT THROMBOSIS Performed By: #### C YTO #### [facility] [address] [place] [address] Dr. Troy Jeter PT Coag (PPP) [Time] 10.8 s Normal 9.0-11.6 [facility] Comment on above: Performed By: #### C YTO #### [facility] [address] [place] [address] Dr. Troy Jeter PTTon 05-04-2022 aPTT Coag (Bld) [Time] 24.5 s Normal 22.3-36.2 [facility] Comment on above: Performed By: #### C YTO #### [facility] [address] [place] [address] Dr. Troy Jeter CYTOLOGYon 04-27-2022 SENT TO REF LAB 04/28/22 Normal [facility] Comment on above: Performed By: #### C YTO #### [facility] [address] [place] [address] Dr. Troy Jeter MG MAMM SCREEN LT 3D CADon 0 04-11-2022 MG MAMM SCREEN LT 3D CAD Patient: DANIELLA BEJARANO Exam Date: 04/11/2022 : 1960 Gender:F Ordering : DR BAYRON SINGH . Admission #: [id number] Family : Order #: [id number] CLICK HERE TO VIEW EXAM RADIOLOGY REPORT [...] breast cancer at age 68. LOCATION: [facility] BREAST COMPOSITION: Scattered areas fibroglandular density. FINDINGS: [...] M.D. on 04/11/2022 at 13:44 Normal [facility] CBC AUTO DIFFon 03-31-2022 BASO # 0.0 103/ul Normal 0.0-0.1 [facility] Comment on above: Performed By: #### C BC #### [facility] [address] [place] [address] Dr. Troy Jeter Basophils/100 WBC (Bld) 0.0 % Critically low 0.2-2.0 [facility] Comment on above: Performed By: #### C BC #### [facility] [address] [place] [address] Dr. Troy Jeter EO # 0.1 103/ul Normal 0.0-0.7 [facility] Comment on above: Performed By: #### C BC #### [facility] [address] [place] [address] Dr. Troy Jeter Eosinophils/100 WBC (Bld) 2.1 % Normal 0.9-7.0 [facility] Comment on above: Performed By: #### C BC #### [facility] [address] [place] [address] Dr. Troy Jeter Erythrocyte distribution width (RBC) [Ratio] 14.3 % Normal 11.0-15.0 [facility] Comment on above: Performed By: #### C BC #### [facility] [address] [place] [address] Dr. Troy Jeter Hematocrit (Bld) [Volume fraction] 31.8 % Critically low 36.0-48.0 [facility] Comment on above: Performed By: #### C BC #### [facility] [address] [place] [address] Dr. Troy Jeter Hemoglobin (Bld) [Mass/Vol] 9.7 g/dL Critically low 12.0-16.0 [facility] Comment on above: Performed By: #### C BC #### [facility] [address] [place] [address] Dr. Troy Jeter IG # 0.01 10e3/ul Normal 0.00-0.03 [facility] Comment on above: Performed By: #### C BC #### [facility] [address] [place] [address] Dr. Troy Jeter IG % 0.3 % Normal 0.0-0.5 [facility] Comment on above: Performed By: #### C BC #### [facility] [address] [place] [address] Dr. Troy Jeter LYMPH # 0.7 103/ul Critically low 1.2-3.8 [facility] Comment on above: Performed By: #### C BC #### [facility] [address] [place] [address] Dr. Troy Jeter Lymphocytes/100 WBC (Bld) 25.3 % Normal 20.5-60.0 [facility] Comment on above: Performed By: #### C BC #### [facility] [address] [place] [address] Dr. Troy Jeter MANUAL DIFF REQ NO Normal [facility] Comment on above: Performed By: #### C BC #### [facility] [address] [place] [address] Dr. Troy Jeter MCH (RBC) [Entitic mass] 26.9 pg Normal 26.7-34.0 [facility] Comment on above: Performed By: #### C BC #### [facility] [address] [place] [address] Dr. Troy Jeter MCHC (RBC) [Mass/Vol] 30.5 g/dL Normal 29.9-35.2 [facility] Comment on above: Performed By: #### C BC #### [facility] [address] [address] [address] Troy Jeter MCV (RBC) [Entitic vol] 88.1 fL Normal 81.0-99.0 [facility] Comment on above: Performed By: #### C BC #### [facility] [address] [address] [address] Troy Jeter MONO # 0.4 103/ul Normal 0.3-0.8 [facility] Comment on above: Performed By: #### C BC #### [facility] [address] [place] [address] Dr. Troy Jeter Monocytes/100 WBC (Bld) 14.2 % Critically high 1.7-12.0 [facility] Comment on above: Performed By: #### C BC #### [facility] [address] [address] [address] Troy Jeter NEUT # 1.7 103/ul Normal 1.4-6.5 [facility] Comment on above: Performed By: #### C BC #### [facility] [address] [place] [address] Dr. Troy Jeter Neutrophils/100 WBC (Bld) 58.1 % Normal 43.0-75.0 [facility] Comment on above: Performed By: #### C BC #### [facility] [address] [address] [address] Troy Jeter Platelet mean volume (Bld) [Entitic vol] 9.3 fL Critically low 9.5-13.5 [facility] Comment on above: Performed By: #### C BC #### [facility] [address] [place] [address] Dr. Troy Jeter PLT 134 103/ul Critically low 150-450 [facility] Comment on above: Performed By: #### C BC #### [facility] [address] [place] [address] Dr. Troy Jeter RBC 3.61 106/ul Critically low 4.20-5.40 [facility] Comment on above: Performed By: #### C BC #### [facility] [address] [place] [address] Dr. Troy Jeter WBC 2.9 103/ul Critically low 4.0-11.0 [facility] Comment on above: Performed By: #### C BC #### [facility] [address] [place] [address] Dr. Troy Jeter PROF 14(COMP METB)on 022 Albumin [Mass/Vol] 2.7 g/dL Critically low 3.4-5.0 [facility] Comment on above: Performed By: #### C MP #### [facility] [address] [place] [address] Dr. Troy Jeter Albumin/Globulin [Mass ratio] 0.9 {ratio} Normal [facility] Comment on above: Performed By: #### C MP #### [facility] [address] [place] [address] Dr. Troy Jeter ALP [Catalytic activity/Vol] 51 U/L Normal 46-116 [facility] Comment on above: Performed By: #### C MP #### [facility] [address] [place] [address] Dr. Troy Jeter ALT [Catalytic activity/Vol] 57 U/L Normal 14-59 [facility] Comment on above: Performed By: #### C MP #### [facility] [address] [place] [address] Dr. Troy Jeter Anion gap [Moles/Vol] 16.1 mmol/L Normal [facility] Comment on above: Performed By: #### C MP #### [facility] [address] [place] [address] Dr. Troy Jeter AST [Catalytic activity/Vol] 69 U/L Critically high 15-37 [facility] Comment on above: Performed By: #### C MP #### [facility] [address] [place] [address] Dr. Troy Jeter Bilirubin [Mass/Vol] 0.2 mg/dL Normal 0.2-1.0 [facility] Comment on above: Performed By: #### C MP #### [facility] [address] [address] [address] Troy Jeter Calcium [Mass/Vol] 8.1 mg/dL Critically low 8.5-10.1 Th e [facility] Comment on above: Performed By: #### C MP #### [facility] [address] [address] [address] Troy Jeter Chloride [Moles/Vol] 112 mmol/L Critically high 98-107 [facility] Comment on above: Performed By: #### C MP #### [facility] [address] [address] [address] Troy Jeter CO2 [Moles/Vol] 18.3 mmol/L Critically low 21.0-32.0 [facility] Comment on above: Performed By: #### C MP #### [facility] [address] [place] [address] Dr. Troy Jeter Creatinine [Mass/Vol] 0.89 mg/dL Normal 0.55-1.02 [facility] Comment on above: Performed By: #### C MP #### [facility] [address] [place] [address] Dr. Troy Jeter EGFR-AF OMANI >60 Normal >=60 [facility] Comment on above: Performed By: #### C MP #### [facility] [address] [address] [address] Troy Jeter EGFR-NON AF OMANI >60 Normal >=60 [facility] Comment on above: Performed By: #### C MP #### [facility] [address] [place] [address] Dr. Troy Jeter Globulin (S) [Mass/Vol] 3.0 g/dL Normal [facility] Comment on above: Performed By: #### C MP #### [facility] [address] [address] [address] Troy Jeter Glucose [Mass/Vol] 80 mg/dL Normal 74-106 [facility] Comment on above: Performed By: #### C MP #### [facility] [address] [address] [address] Troy Jeter Potassium [Moles/Vol] 3.4 mmol/L Critically low 3.5-5.1 [facility] Comment on above: Performed By: #### C MP #### [facility] [address] [address] [address] Troy Jeter Protein [Mass/Vol] 5.7 g/dL Critically low 6.4-8.2 [facility] Comment on above: Performed By: #### C MP #### [facility] [address] [address] [address] Troy Jeter Sodium [Moles/Vol] 143 mmol/L Normal 136-145 [facility] Comment on above: Performed By: #### C MP #### [facility] [address] [place] [address] Dr. Troy Jeter Urea nitrogen [Mass/Vol] 11.0 mg/dL Normal 7.0-18.0 [facility] Comment on above: Performed By: #### C MP #### [facility] [address] [place] [address] Dr. Troy Jeter Urea nitrogen/Creatinine [Mass ratio] 12.4 mg/mg Normal [facility] Comment on above: Performed By: #### C MP #### [facility] [address] [place] [address] Dr. Troy Jeter CBC AUTO DIFFon 03-30-2022 BASO # 0.0 103/ul Normal 0.0-0.1 [facility] Comment on above: Performed By: #### C BC #### [facility] [address] [place] [address] Dr. Troy Jeter Basophils/100 WBC (Bld) 0.3 % Normal 0.2-2.0 [facility] Comment on above: Performed By: #### C BC #### [facility] [address] [place] [address] Dr. Troy Jeter EO # 0.0 103/ul Normal 0.0-0.7 [facility] Comment on above: Performed By: #### C BC #### [facility] [address] [place] [address] Dr. Troy Jeter Eosinophils/100 WBC (Bld) 1.2 % Normal 0.9-7.0 [facility] Comment on above: Performed By: #### C BC #### [facility] [address] [place] [address] Dr. Troy Jeter Erythrocyte distribution width (RBC) [Ratio] 14.1 % Normal 11.0-15.0 [facility] Comment on above: Performed By: #### C BC #### [facility] [address] [place] [address] Dr. Troy Jeter Hematocrit (Bld) [Volume fraction] 32.5 % Critically low 36.0-48.0 [facility] Comment on above: Performed By: #### C BC #### [facility] [address] [place] [address] Dr. Troy Jeter Hemoglobin (Bld) [Mass/Vol] 9.8 g/dL Critically low 12.0-16.0 [facility] Comment on above: Performed By: #### C BC #### [facility] [address] [place] [address] Dr. Troy Jeter IG # 0.01 10e3/ul Normal 0.00-0.03 [facility] Comment on above: Performed By: #### C BC #### [facility] [address] [place] [address] Dr. Troy Jeter IG % 0.3 % Normal 0.0-0.5 [facility] Comment on above: Performed By: #### C BC #### [facility] [address] [place] [address] Dr. Troy Jeter LYMPH # 0.6 103/ul Critically low 1.2-3.8 [facility] Comment on above: Performed By: #### C BC #### [facility] [address] [place] [address] Dr. Troy Jeter Lymphocytes/100 WBC (Bld) 18.4 % Critically low 20.5-60.0 [facility] Comment on above: Performed By: #### C BC #### [facility] [address] [place] [address] Dr. Troy Jeter MANUAL DIFF REQ NO Normal [facility] Comment on above: Performed By: #### C BC #### [facility] [address] [place] [address] Dr. Troy Jeter MCH (RBC) [Entitic mass] 27.0 pg Normal 26.7-34.0 [facility] Comment on above: Performed By: #### C BC #### [facility] [address] [place] [address] Dr. Troy Jeter MCHC (RBC) [Mass/Vol] 30.2 g/dL Normal 29.9-35.2 [facility] Comment on above: Performed By: #### C BC #### [facility] [address] [place] [address] Dr. Troy Jeter MCV (RBC) [Entitic vol] 89.5 fL Normal 81.0-99.0 [facility] Comment on above: Performed By: #### C BC #### [facility] [address] [place] [address] Dr. Troy Jeter MONO # 0.4 103/ul Normal 0.3-0.8 [facility] Comment on above: Performed By: #### C BC #### [facility] [address] [place] [address] Dr. Troy Jeter Monocytes/100 WBC (Bld) 12.7 % Critically high 1.7-12.0 [facility] Comment on above: Performed By: #### C BC #### [facility] [address] [place] [address] Dr. Troy Jeter NEUT # 2.2 103/ul Normal 1.4-6.5 [facility] Comment on above: Performed By: #### C BC #### [facility] [address] [place] [address] Dr. Troy Jeter Neutrophils/100 WBC (Bld) 67.1 % Normal 43.0-75.0 [facility] Comment on above: Performed By: #### C BC #### [facility] [address] [address] [address] Troy Jeter Platelet mean volume (Bld) [Entitic vol] 9.7 fL Normal 9.5-13.5 [facility] Comment on above: Performed By: #### C BC #### [facility] [address] [address] [address] Troy Jeter PLT 140 103/ul Critically low 150-450 [facility] Comment on above: Performed By: #### C BC #### [facility] [address] [place] [address] Dr. Troy Jeter RBC 3.63 106/ul Critically low 4.20-5.40 [facility] Comment on above: Performed By: #### C BC #### [facility] [address] [place] [address] Dr. Troy Jeter WBC 3.3 103/ul Critically low 4.0-11.0 [facility] Comment on above: Performed By: #### C BC #### [facility] [address] [place] [address] Dr. Troy Jeter PROF 14(COMP METB)on 022 Albumin [Mass/Vol] 2.8 g/dL Critically low 3.4-5.0 [facility] Comment on above: Performed By: #### C BC #### [facility] [address] [place] [address] Dr. Troy Jeter Albumin/Globulin [Mass ratio] 0.9 {ratio} Normal [facility] Comment on above: Performed By: #### C BC #### [facility] [address] [place] [address] Dr. Troy Jeter ALP [Catalytic activity/Vol] 50 U/L Normal 46-116 [facility] Comment on above: Performed By: #### C BC #### [facility] [address] [place] [address] Dr. Troy Jeter ALT [Catalytic activity/Vol] 58 U/L Normal 14-59 [facility] Comment on above: Performed By: #### C BC #### [facility] [address] [place], [place] [id number] Dr. Troy Jeter Anion gap [Moles/Vol] 17.3 mmol/L Normal [facility] Comment on above: Performed By: #### C BC #### [facility] [address] [address] [address] Troy Jeter AST [Catalytic activity/Vol] 78 U/L Critically high 15-37 [facility] Comment on above: Performed By: #### C BC #### [facility] [address] [address] [address] Troy Jeter Bilirubin [Mass/Vol] 0.2 mg/dL Normal 0.2-1.0 [facility] Comment on above: Performed By: #### C BC #### [facility] [address] [place] [address] Dr. Troy Jeter Calcium [Mass/Vol] 8.0 mg/dL Critically low 8.5-10.1 [facility] Comment on above: Performed By: #### C BC #### [facility] [address] [place] [address] Dr. Troy Jeter Chloride [Moles/Vol] 112 mmol/L Critically high 98-107 [facility] Comment on above: Performed By: #### C BC #### [facility] [address] [place] [address] Dr. Troy Jeter CO2 [Moles/Vol] 17.0 mmol/L Critically low 21.0-32.0 [facility] Comment on above: Performed By: #### C BC #### [facility] [address] [place] [address] Dr. Troy Jeter Creatinine [Mass/Vol] 0.93 mg/dL Normal 0.55-1.02 [facility] Comment on above: Performed By: #### C BC #### [facility] [address] [place] [address] Dr. Troy Jeter EGFR-AF OMANI >60 Normal >=60 [facility] Comment on above: Performed By: #### C BC #### [facility] [address] [place] [address] Dr. Troy Jeter EGFR-NON AF OMANI >60 Normal >=60 [facility] Comment on above: Performed By: #### C BC #### [facility] [address] [address] [address] Troy Jeter Globulin (S) [Mass/Vol] 3.1 g/dL Normal [facility] Comment on above: Performed By: #### C BC #### [facility] [address] [address] [address] Troy Jeter Glucose [Mass/Vol] 77 mg/dL Normal 74-106 [facility] Comment on above: Performed By: #### C BC #### [facility] [address] [address] [address] Troy Jeter Potassium [Moles/Vol] 3.3 mmol/L Critically low 3.5-5.1 [facility] Comment on above: Performed By: #### C BC #### [facility] [address] [place] [address] Dr. Troy Jeter Protein [Mass/Vol] 5.9 g/dL Critically low 6.4-8.2 Th [facility] Comment on above: Performed By: #### C BC #### [facility] [address] [place] [address] Dr. Troy Jeter Sodium [Moles/Vol] 143 mmol/L Normal 136-145 [facility] Comment on above: Performed By: #### C BC #### [facility] [address] [place] [address] Dr. rToy Jeter Urea nitrogen [Mass/Vol] 12.0 mg/dL Normal 7.0-18.0 [facility] Comment on above: Performed By: #### C BC #### [facility] [address] [place] [address] Dr. Troy Jeter Urea nitrogen/Creatinine [Mass ratio] 12.9 mg/mg Normal [facility] Comment on above: Performed By: #### C BC #### [facility] [address] [place] [address] Dr. Troy Jeter CBC AUTO DIFFon 03-29-2022 BASO # 0.0 103/ul Normal 0.0-0.1 [facility] Comment on above: Performed By: #### C YTO #### [facility] [address] [place] [address] Dr. Troy Jeter Basophils/100 WBC (Bld) 0.2 % Normal 0.2-2.0 [facility] Comment on above: Performed By: #### C YTO #### [facility] [address] [place] [address] Dr. Troy Jeter EO # 0.0 103/ul Normal 0.0-0.7 [facility] Comment on above: Performed By: #### C YTO #### [facility] [address] [place] [address] Dr. Troy Jeter Eosinophils/100 WBC (Bld) 0.2 % Critically low 0.9-7.0 [facility] Comment on above: Performed By: #### C YTO #### [facility] [address] [place] [address] Dr. Troy Jeter Erythrocyte distribution width (RBC) [Ratio] 14.0 % Normal 11.0-15.0 [facility] Comment on above: Performed By: #### C YTO #### [facility] [address] [place] [address] Dr. Troy Jeter Hematocrit (Bld) [Volume fraction] 35.4 % Critically low 36.0-48.0 [facility] Comment on above: Performed By: #### C YTO #### [facility] [address] [place] [address] Dr. Troy Jeter Hemoglobin (Bld) [Mass/Vol] 10.9 g/dL Critically low 12.0-16.0 [facility] Comment on above: Performed By: #### C YTO #### [facility] [address] [place] [address] Dr. Troy Jeter IG # 0.03 10e3/ul Normal 0.00-0.03 [facility] Comment on above: Performed By: #### C YTO #### [facility] [address] [place] [address] Dr. Troy Jeter IG % 0.5 % Normal 0.0-0.5 [facility] Comment on above: Performed By: #### C YTO #### [facility] [address] [place] [address] Dr. Troy Jeter LYMPH # 0.3 103/ul Critically low 1.2-3.8 [facility] Comment on above: Performed By: #### C YTO #### [facility] [address] [place] [address] Dr. Troy Jeter Lymphocytes/100 WBC (Bld) 5.8 % Critically low 20.5-60.0 [facility] Comment on above: Performed By: #### C YTO #### [facility] [address] [place] [address] Dr. Troy Jeter MANUAL DIFF REQ NO Normal [facility] Comment on above: Performed By: #### C YTO #### [facility] [address] [place] [address] Dr. Troy Jeter MCH (RBC) [Entitic mass] 27.3 pg Normal 26.7-34.0 [facility] Comment on above: Performed By: #### C YTO #### [facility] [address] [place] [address] Dr. Tory Jeter MCHC (RBC) [Mass/Vol] 30.8 g/dL Normal 29.9-35.2 [facility] Comment on above: Performed By: #### C YTO #### [facility] [address] [place] [address] Dr. Troy Jeter MCV (RBC) [Entitic vol] 88.7 fL Normal 81.0-99.0 [facility] Comment on above: Performed By: #### C YTO #### [facility] [address] [place] [address] Dr. Troy Jeter MONO # 0.3 103/ul Normal 0.3-0.8 [facility] Comment on above: Performed By: #### C YTO #### [facility] [address] [place] [address] Dr. Troy Jeter Monocytes/100 WBC (Bld) 6.2 % Normal 1.7-12.0 [facility] Comment on above: Performed By: #### C YTO #### [facility] [address] [place] [address] Dr. Troy Jeter NEUT # 4.8 103/ul Normal 1.4-6.5 [facility] Comment on above: Performed By: #### C YTO #### [facility] [address] [place] [address] Dr. Troy Jeter Neutrophils/100 WBC (Bld) 87.1 % Critically high 43.0-75.0 [facility] Comment on above: Performed By: #### C YTO #### [facility] [address] [place] [address] Dr. Troy Jeter Platelet mean volume (Bld) [Entitic vol] 9.6 fL Normal 9.5-13.5 [facility] Comment on above: Performed By: #### C YTO #### [facility] [address] [place] [address] Dr. Troy Jeter PLT 176 103/ul Normal 150-450 [facility] Comment on above: Performed By: #### C YTO #### [facility] [address] [place] [address] Dr. Troy Jeter RBC 3.99 106/ul Critically low 4.20-5.40 [facility] Comment on above: Performed By: #### C YTO #### [facility] [address] [place] [address] Dr. Troy Jeter WBC 5.5 103/ul Normal 4.0-11.0 [facility] Comment on above: Performed By: #### C YTO #### [facility] [address] [place] [address] Dr. Troy Jeter PROF 14(COMP METB)on 022 Albumin [Mass/Vol] 3.1 g/dL Critically low 3.4-5.0 [facility] Comment on above: Performed By: #### C YTO #### [facility] [address] [place] [address] Dr. Troy Jeter Albumin/Globulin [Mass ratio] 0.9 {ratio} Normal [facility] Comment on above: Performed By: #### C YTO #### [facility] [address] [place] [address] Dr. Troy Jeter ALP [Catalytic activity/Vol] 58 U/L Normal 46-116 [facility] Comment on above: Performed By: #### C YTO #### [facility] [address] [place] [address] Dr. Troy Jeter ALT [Catalytic activity/Vol] 49 U/L Normal 14-59 [facility] Comment on above: Performed By: #### C YTO #### [facility] [address] [place] [address] Dr. Troy Jeter Anion gap [Moles/Vol] 15.7 mmol/L Normal [facility] Comment on above: Performed By: #### C YTO #### [facility] [address] [place] [address] Dr. Troy Jeter AST [Catalytic activity/Vol] 59 U/L Critically high 15-37 [facility] Comment on above: Performed By: #### C YTO #### [facility] Laboratory [address] [place] [address] Dr. Troy Jeter Bilirubin [Mass/Vol] 0.3 mg/dL Normal 0.2-1.0 [facility] Comment on above: Performed By: #### C YTO #### [facility] Laboratory [address] [place] [address] Dr. Troy Jeter Calcium [Mass/Vol] 8.1 mg/dL Critically low 8.5-10.1 [facility] Comment on above: Performed By: #### C YTO #### [facility] Laboratory [address] [place] [address] Dr. Troy Jeter Chloride [Moles/Vol] 110 mmol/L Critically high 98-107 [facility] Comment on above: Performed By: #### C YTO #### [facility] Laboratory [address] [place] [address] Dr. Troy Jeter CO2 [Moles/Vol] 20.8 mmol/L Critically low 21.0-32.0 [facility] Comment on above: Performed By: #### C YTO #### [facility] Laboratory [address] [address] [address] Troy Jeter Creatinine [Mass/Vol] 0.94 mg/dL Normal 0.55-1.02 [facility] Comment on above: Performed By: #### C YTO #### [facility] Laboratory [address] [address] [address] Troy Jeter EGFR-AF OMANI >60 Normal >=60 [facility] Comment on above: Performed By: #### C YTO #### [facility] Laboratory [address] [address] [address] Troy Jeter EGFR-NON AF OMANI 60 mL/min/1.73m2 Normal >=60 [facility] Comment on above: Performed By: #### C YTO #### [facility] Laboratory [address] [place] [address] Dr. Troy Jeter Globulin (S) [Mass/Vol] 3.4 g/dL Normal [facility] Comment on above: Performed By: #### C YTO #### [facility] Laboratory [address] [address] [address] Troy Jeter Glucose [Mass/Vol] 95 mg/dL Normal 74-106 [facility] Comment on above: Performed By: #### C YTO #### [facility] Laboratory [address] [address] [address] Troy Jeter Potassium [Moles/Vol] 3.5 mmol/L Normal 3.5-5.1 [facility] Comment on above: Performed By: #### C YTO #### [facility] Laboratory [address] [address] [address] Troy Jeter Protein [Mass/Vol] 6.5 g/dL Normal 6.4-8.2 [facility] Comment on above: Performed By: #### C YTO #### [facility] Laboratory [address] [address] [address] Troy Jeter Sodium [Moles/Vol] 143 mmol/L Normal 136-145 [facility] Comment on above: Performed By: #### C YTO #### [facility] Laboratory [address] [place] [address] Dr. Troy Jeter Urea nitrogen [Mass/Vol] 18.0 mg/dL Normal 7.0-18.0 [facility] Comment on above: Performed By: #### C YTO #### [facility] Laboratory [address] [place] [address] Dr. Troy Jeter Urea nitrogen/Creatinine [Mass ratio] 19.1 mg/mg Normal [facility] Comment on above: Performed By: #### C YTO #### [facility] Laboratory [address] [place] [address] Dr. Troy Jeter CBC W MANUAL DIFFon 03-28-20 ATYPICAL LYMPH # Normal [facility] Comment on above: Performed By: #### C YTO #### [facility] Laboratory [address] [place] [address] Dr. Troy Jeter ATYPICAL LYMPH % Normal [facility] Comment on above: Performed By: #### C YTO #### [facility] Laboratory [address] [place] [address] Dr. Troy Jeter BAND # 0.1 103/ul Normal 0.0-0.3 [facility] Comment on above: Performed By: #### C YTO #### [facility] Laboratory [address] [place] [address] Dr. Troy Jeter BAND % 1 % Normal 0-5 [facility] Comment on above: Performed By: #### C YTO #### [facility] Laboratory [address] [place] [address] Dr. Troy Jeter BASOM # 0.08 103/ul Normal 0.00-0.10 [facility] Comment on above: Performed By: #### C YTO #### [facility] Laboratory [address] [place] [address] Dr. Troy Jeter BASOM % 1.0 % Normal 0.2-2.0 [facility] Comment on above: Performed By: #### C YTO #### [facility] Laboratory [address] [place] [address] Dr. Troy Jeter BLAST # Normal [facility] Comment on above: Performed By: #### C YTO #### [facility] Laboratory [address] [place] [address] Dr. Troy Jeter BLAST % Normal [facility] Comment on above: Performed By: #### C YTO #### [facility] Laboratory [address] [place] [address] Dr. Troy Jeter CORRECTED WBC Normal 4.0-11.0 [facility] Comment on above: Performed By: #### C YTO #### [facility] Laboratory [address] [place] [address] Dr. Troy Jetre EOS # 0.00 103/ul Normal 0.00-0.70 [facility] Comment on above: Performed By: #### C YTO #### [facility] Laboratory [address] [place] [address] Dr. Troy Jeter EOS% 0.0 % Critically low 0.9-7.0 [facility] Comment on above: Performed By: #### C YTO #### [facility] Laboratory [address] [place] [address] Dr. Troy Jeter HCT 40.2 % Normal 36.0-48.0 [facility] Comment on above: Performed By: #### C YTO #### [facility] Laboratory [address] [place] [address] Dr. Troy Jeter HGB 12.5 g/dl Normal 12.0-16.0 [facility] Comment on above: Performed By: #### C YTO #### [facility] Laboratory [address] [place] [address] Dr. Troy Jeter LYMPHM # 0.23 103/ul Critically low 1.20-3.80 [facility] Comment on above: Performed By: #### C YTO #### [facility] Laboratory [address] [place] [address] Dr. Troy Jeter LYMPHM% 3.0 % Critically low 20.5-60.0 [facility] Comment on above: Performed By: #### C YTO #### [facility] Laboratory [address] [address] [address] Troy Jeter MCH 27.1 pg Normal 26.7-34.0 [facility] Comment on above: Performed By: #### C YTO #### [facility] Laboratory [address] [address] [address] Troy Jeter MCHC 31.1 g/dl Normal 29.9-35.2 [facility] Comment on above: Performed By: #### C YTO #### [facility] Laboratory [address] [address] [address] Troy Jeter MCV 87.2 fL Normal 81.0-99.0 [facility] Comment on above: Performed By: #### C YTO #### [facility] Laboratory [address] [place] [address] Dr. Troy Jeter METAMYELOCYTE # Normal [facility] Comment on above: Performed By: #### C YTO #### [facility] Laboratory [address] [place] [address] Dr. Troy Jeter METAMYELOCYTE % Normal [facility] Comment on above: Performed By: #### C YTO #### [facility] Laboratory [address] [place] [address] Dr. Troy Jeter MONOM# 0.08 103/ul Critically low 0.30-0.80 [facility] Comment on above: Performed By: #### C YTO #### [facility] Laboratory [address] [address] [address] Troy Jeter MONOM% 1.0 % Critically low 1.7-12.0 [facility] Comment on above: Performed By: #### C YTO #### [facility] Laboratory [address] [place] [address] Dr. Troy Jeter MPV 10.0 fL Normal 9.5-13.5 [facility] Comment on above: Performed By: #### C YTO #### [facility] Laboratory [address] [place] [address] Dr. Troy Jeter MYELOCYTE # Normal [facility] Comment on above: Performed By: #### C YTO #### [facility] Laboratory [address] [address] [address] Troy Jeter MYELOCYTE % Normal [facility] Comment on above: Performed By: #### C YTO #### [facility] Laboratory [address] [address] [address] Troy Jeter NRBC Normal [facility] Comment on above: Performed By: #### C YTO #### [facility] Laboratory [address] [address] [address] Troy Jeter PLT 230 103/ul Normal 150-450 [facility] Comment on above: Performed By: #### C YTO #### [facility] Laboratory [address] [address] [address] Troy Jeter RBC 4.61 106/ul Normal 4.20-5.40 [facility] Comment on above: Performed By: #### C YTO #### [facility] Laboratory [address] [place] [address] Dr. Troy Jeter RDW 13.8 % Normal 11.0-15.0 [facility] Comment on above: Performed By: #### C YTO #### [facility] Laboratory [address] [address] [address] Troy Jeter SEG # 7.14 103/ul Critically high 1.40-6.50 [facility] Comment on above: Performed By: #### C YTO #### [facility] Laboratory [address] [address] [address] Troy Jeter SEG % 94.0 % Critically high 43.0-75.0 [facility] Comment on above: Performed By: #### C YTO #### [facility] Laboratory [address] [place] [address] Dr. Troy Jeter WBC 7.6 103/ul Normal 4.0-11.0 [facility] Comment on above: Performed By: #### C YTO #### [facility] Laboratory [address] [address] [address] ABD/PELVIS WO CONon [...] ABDIAZIZ HALEY Date: 2022-03-28 16:37 Normal [facility]01 SARS-CoV-2 (COVID-19) RNA BRANDEN+probe Ql (Unsp spec) Not detected Normal NOT DETECTED [facility] Comment on above: Result Comment: When diagnostic [...] for this test is supported by the [place] of [employer] Service's declaration that [...] used). Performed By: #### C VDTB #### [facility] Laboratory [address] [place] [address] Dr. Troy KAUR URINE PROFILEon 2 Bilirubin Ql (U) Negative Normal NEGATIVE [facility] Comment on above: Performed By: #### C BC #### [facility] Laboratory [address] [place] [address] Dr. Troy Jeter Clarity (U) CLEAR Normal CLEAR [facility] Comment on above: Performed By: #### C BC #### [facility] Laboratory [address] [place] [address] Dr. Troy Jeter Color (U) LT. YELLOW Normal YELLOW [facility] Comment on above: Performed By: #### C BC #### [facility] Laboratory [address] [place] [address] Dr. Troy INMAN A micrscopic examination will be performed if indicated. Normal [facility] Comment on above: Performed By: #### C BC #### [facility] Laboratory [address] [place] [address] Dr. Troy Jeter Glucose Ql (U) Negative Normal NEGATIVE [facility] Comment on above: Performed By: #### C BC #### [facility] Laboratory [address] [place] [address] Dr. Troy Jeter Hemoglobin Ql (U) SMALL Abnormal NEGATIVE [facility] Comment on above: Performed By: #### C BC #### [facility] Laboratory [address] [place] [address] Dr. Troy Jeter Ketones Ql (U) Negative Normal NEGATIVE The [facility] Comment on above: Performed By: #### C BC #### [facility] Laboratory [address] [place] [address] Dr. Troy Jeter LEUKOCYTES Negative Normal NEGATIVE [facility] Comment on above: Performed By: #### C BC #### [facility] Laboratory [address] [place] [address] Dr. Troy Jeter Nitrite Ql (U) Negative Normal NEGATIVE [facility] Comment on above: Performed By: #### C BC #### [facility] Laboratory [address] [place] [address] Dr. Troy Jeter pH (U) 6.0 [pH] Normal 5-9 [facility] Comment on above: Performed By: #### C BC #### [facility] Laboratory [address] [place] [address] Dr. Troy Jeter SPEC GRAVITY 1.020 Normal 1.005-<=1.025 [facility] Comment on above: Performed By: #### C BC #### [facility] Laboratory [address] [place] [address] Dr. Troy Jeter UA PROTEIN Negative Normal NEGATIVE/ TRACE [facility] Comment on above: Performed By: #### C BC #### [facility] Laboratory [address] [place] [address] Dr. Troy Jeter UR MICRO IND INDICATED Normal [facility] Comment on above: Performed By: #### C BC #### [facility] Laboratory [address] [place] [address] Dr. Troy Jeter Urobilinogen Qn (U) 0.2 {Kriss'U}/dL Normal 0.2 - 1. 0 [facility] Comment on above: Performed By: #### C BC #### [facility] Laboratory [address] [place] [address] Dr. Troy Jeter GI PANEL (PCR)on 03-28-2022 Adenovirus F 40/41 Not detected Normal NOT DETECTED [facility] Comment on above: Performed By: #### C YTO #### [facility] Laboratory [address] [place] [address] Dr. Troy Jeter Astrovirus Not detected Normal NOT DETECTED [facility] Comment on above: Performed By: #### C YTO #### [facility] Laboratory [address] [place] [address] Dr. Troy Cid. Diff toxin A/B Not detected Normal NOT DETECTED [facility] Comment on above: Performed By: #### C YTO #### [facility] Laboratory [address] [place] [address] Dr. Troy Jeter Campylobacter Not detected Normal NOT DETECTED [facility] Comment on above: Performed By: #### C YTO #### [facility] Laboratory [address] [place] [address] Dr. Troy Jeter Cryptosporidium Not detected Normal NOT DETECTED [facility] Comment on above: Performed By: #### C YTO #### [facility] Laboratory [address] [place] [address] Dr. Troy Jeter Cyclos. Cayetanensis Not detected Normal NOT DETECTED The [facility] Comment on above: Performed By: #### C YTO #### [facility] Laboratory [address] [place] [address] Dr. Troy Jeter E. Coli O157 Not Applicable Normal Not Applicable [facility] Comment on above: Performed By: #### C YTO #### [facility] Laboratory [address] [place] [address] Dr. Troy Jeter E. histolytica Not detected Normal NOT DETECTED [facility] Comment on above: Performed By: #### C YTO #### [facility] Laboratory [address] [place] [address] Dr. Troy Jeter EAEC Not detected Normal NOT DETECTED The [facility] Comment on above: Performed By: #### C YTO #### [facility] Laboratory [address] [place] [address] Dr. Troy Jeter EIEC Not detected Normal NOT DETECTED The [facility] Comment on above: Performed By: #### C YTO #### [facility] Laboratory [address] [place] [address] Dr. Troy Jeter EPEC Not detected Normal NOT DETECTED [facility] Comment on above: Performed By: #### C YTO #### [facility] Laboratory [address] [place] [address] Dr. Troy Jeter ETEC Not detected Normal NOT DETECTED [facility] Comment on above: Performed By: #### C YTO #### [facility] Laboratory [address] [place] [address] Dr. Troy Jeter G. Lamblia Not detected Normal NOT DETECTED [facility] Comment on above: Performed By: #### C YTO #### [facility] Laboratory [address] [address] [address] Troy KIMBROUGH CONTROLS PASSED Normal [facility] Comment on above: Performed By: #### C YTO #### [facility] Laboratory [address] [address] [address] Troy PAYTON BAR HEADER GI PANEL BACTERIA Normal [facility] Comment on above: Performed By: #### C YTO #### [facility] Laboratory [address] [address] [address] Troy JIMENEZ ECOLI GI PANEL DIARRHEAGEN IC E.COLI / SHIGELLA Normal [facility] Comment on above: Performed By: #### C YTO #### [facility] Laboratory [address] [address] [address] Tryo JIMENEZ INFO SEE BELOW Normal [facility] Comment on above: Result Comment: EAEC - Enteroaggregative E. Coli EPEC- Enteropathogenic E. Coli ETEC- Enterotoxigenic E. Coli lt/st STEC- Shigella-like toxin-producing E. Coli stx1/stx2 EIEC- Shigella/Enteroinvasive E. Coli Performed By: #### C YTO #### [facility] Laboratory [address] [address] [address] Troy JIMENEZ PARASITES GI PANEL PARASITES Normal [facility] Comment on above: Performed By: #### C YTO #### [facility] Laboratory [address] [address] [address] Troy JIMENEZ VIRUS GI PANEL VIRUSES Normal [facility] Comment on above: Performed By: #### C YTO #### [facility] Laboratory [address] [address] [address] Troy Jeter Norovirus GI/GII Not detected Normal NOT DETECTED [facility] Comment on above: Performed By: #### C YTO #### [facility] Laboratory [address] [address] [address] Troy Jeter P. Shigelloides Not detected Normal NOT DETECTED [facility] Comment on above: Performed By: #### C YTO #### [facility] Laboratory [address] [place] [address] Dr. Troy Jeter Rotavirus A Detected Abnormal NOT DETECTED [facility] Comment on above: Performed By: #### C YTO #### [facility] Laboratory [address] [place] [address] Dr. Troy Jeter Salmonella Not detected Normal NOT DETECTED [facility] Comment on above: Performed By: #### C YTO #### [facility] Laboratory [address] [place] [address] Dr. Troy Jeter Sapovirus Not detected Normal NOT DETECTED [facility] Comment on above: Performed By: #### C YTO #### [facility] Laboratory [address] [place] [address] Dr. Troy Jeter STEC Not detected Normal NOT DETECTED The [facility] Comment on above: Performed By: #### C YTO #### [facility] Laboratory [address] [place] [address] Dr. Troy Jeter Vibrio Not detected Normal NOT DETECTED The [facility] Comment on above: Performed By: #### C YTO #### [facility] Laboratory [address] [place] [address] Dr. Troy Jeter Vibrio Cholera Not detected Normal NOT DETECTED [facility] Comment on above: Performed By: #### C YTO #### [facility] Laboratory [address] [place] [address] Dr. Troy Jeter Y. Enterocolitica Not detected Normal NOT DETECTED The [facility] Comment on above: Performed By: #### C YTO #### [facility] Laboratory [address] [place] [address] Dr. Troy Jeter LACTATE/LACTIC ACIDon 2021 Lactate [Moles/Vol] 1.7 mmol/L Normal 0.4-1.9 [facility] Comment on above: Performed By: #### C BC #### [facility] Laboratory [address] [place] [address] Dr. Troy Jeter LIPASEon 03-28-2022 Lipase [Catalytic activity/Vol] 135.0 U/L Normal 73.0-393.0 [facility] Comment on above: Performed By: #### L IPA, CMP #### [facility] Laboratory [address] [address] [address] Troy Jeter PROF 14(COMP METB)on 022 Albumin [Mass/Vol] 3.9 g/dL Normal 3.4-5.0 [facility] Comment on above: Performed By: #### L IPA, CMP #### [facility] Laboratory [address] [address] [address] Troy Jeter Albumin/Globulin [Mass ratio] 1.0 {ratio} Normal [facility] Comment on above: Performed By: #### L IPA, CMP #### [facility] Laboratory [address] [place] [address] Dr. Troy eJter ALP [Catalytic activity/Vol] 81 U/L Normal 46-116 [facility] Comment on above: Performed By: #### L IPA, CMP #### [facility] [facility] [address] [place] [address] Dr. Troy Jeter ALT [Catalytic activity/Vol] 45 U/L Normal 14-59 [facility] Comment on above: Performed By: #### L IPA, CMP #### [facility] [address] [place] [address] Dr. Troy Jeter Anion gap [Moles/Vol] 15.2 mmol/L Normal [facility] Comment on above: Performed By: #### L IPA, CMP #### [facility] [address] [address] [address] Troy Jeter AST [Catalytic activity/Vol] 42 U/L Critically high 15-37 [facility] Comment on above: Performed By: #### L IPA, CMP #### [facility] [address] [address] [address] Troy Jeter Bilirubin [Mass/Vol] 0.5 mg/dL Normal 0.2-1.0 [facility] Comment on above: Performed By: #### L IPA, CMP #### [facility] [address] [place] [address] Dr. Troy Jeter Calcium [Mass/Vol] 9.4 mg/dL Normal 8.5-10.1 [facility] Comment on above: Performed By: #### L IPA, CMP #### [facility] [address] [address] [address] Troy Jeter Chloride [Moles/Vol] 105 mmol/L Normal 98-107 [facility] Comment on above: Performed By: #### L IPA, CMP #### [facility] [address] [address] [address] Troy Jeter CO2 [Moles/Vol] 23.7 mmol/L Normal 21.0-32.0 [facility] Comment on above: Performed By: #### L IPA, CMP #### [facility] [address] [address] [address] Troy Jeter Creatinine [Mass/Vol] 0.91 mg/dL Normal 0.55-1.02 [facility] Comment on above: Performed By: #### L IPA, CMP #### [facility] [address] [place] [address] Dr. Troy Jeter EGFR-AF OMANI >60 Normal >=60 [facility] Comment on above: Performed By: #### L IPA, CMP #### [facility] [address] [address] [address] Troy Jeter EGFR-NON AF OMANI >60 Normal >=60 [facility] Comment on above: Performed By: #### L IPA, CMP #### [facility] [address] [place] [address] Dr. Troy Jeter Globulin (S) [Mass/Vol] 4.0 g/dL Normal [facility] Comment on above: Performed By: #### L IPA, CMP #### [facility] [address] [address] [address] Troy Jeter Glucose [Mass/Vol] 119 mg/dL Critically high 74-106 [facility] Comment on above: Performed By: #### L IPA, CMP #### [facility] [address] [address] [address] Troy Jeter Potassium [Moles/Vol] 3.9 mmol/L Normal 3.5-5.1 [facility] Comment on above: Performed By: #### L IPA, CMP #### [facility] [address] [place] [address] Dr. Troy Jeter Protein [Mass/Vol] 7.9 g/dL Normal 6.4-8.2 [facility] Comment on above: Performed By: #### L IPA, CMP #### [facility] [address] [place] [address] Dr. Troy Jeter Sodium [Moles/Vol] 140 mmol/L Normal 136-145 [facility] Comment on above: Performed By: #### L IPA, CMP #### [facility] [address] [place] [address] Dr. Troy Jeter Urea nitrogen [Mass/Vol] 16.0 mg/dL Normal 7.0-18.0 [facility] Comment on above: Performed By: #### L IPA, CMP #### [facility] [address] [place] [address] Dr. Troy Jeter Urea nitrogen/Creatinine [Mass ratio] 17.6 mg/mg Normal [facility] Comment on above: Performed By: #### L IPA, CMP #### [facility] [address] [place] [address] Dr. Troy Jeter URINE MICROSCOPIC ONLYon BACTERIA TRACE Abnormal NONE SEEN [facility] Comment on above: Performed By: #### C BC #### [facility] [address] [place] [address] Dr. Troy Jeter Bacteria identified Cx Nom (U) NOT INDICATED Normal [facility] Comment on above: Performed By: #### C BC #### [facility] [address] [place] [address] Dr. Troy Jeter CAST NONE SEEN Normal NONE SEEN [facility] Comment on above: Performed By: #### C BC #### [facility] [address] [place] [address] Dr. Troy Jeter Crystals LM Nom (Urine sed) NONE SEEN Normal NONE SEEN [facility] Comment on above: Performed By: #### C BC #### [facility] [address] [place] [address] Dr. Troy Jeter Epithelial cells LM Ql (Urine sed) FEW Abnormal NONE SEEN /RARE [facility] Comment on above: Performed By: #### C BC #### [facility] [address] [place] [address] Dr. Troy Jeter MUCOUS NONE SEEN Normal NONE SEEN [facility] Comment on above: Performed By: #### C BC #### [facility] [address] [place] [address] Dr. Troy Jeter RBC 2-5 Abnormal 0-2 [facility] Comment on above: Performed By: #### C BC #### [facility] [address] [address] [address] Troy Jeter WBC 0-2 Abnormal NONE SEEN [facility] Comment on above: Performed By: #### C BC #### [facility] [address] [place] [address] Dr. Troy Jeter [facility] Surgical Pathology Department Name DANIELLA BEJARANO Pathologist: AMEE KELSEY DMD Date of Procedure: 08/13/2020 Date Received: 08/17/2020 Date Reported 08/25/2020 Submitting Physician: BUTCH LONG DDS Location: [facility] Other External # FINAL DIAGNOSIS A. LEFT LATERAL TONGUE, EXCISION: -- TRAUMATIC ULCER -- NEGATIVE FOR DYSPLASIA OR MALIGNANCY ICD-10/CPT: K14.0/24178 Electronically Signed Out By AMEE KELSEY DMD/ELIASS By the signature on this report, the [...] sectioned and entirely submitted in 2 cassettes. [facility] Summary of Cassettes: Specimen Label Site A 1 tips 2 body of ellipse [facility]/08/19/2020 [facility] Department of Pathology [address] [place] [address] Normal [facility] Comment on above: Performed By: #### U [facility] #### [facility] Surgical Pathology Department [address] [place] [address] Cardiovascular Lab Reporton 06-12-2020 Cardiovascular Lab Report [facility] Patient Name: Aamir [facility] A MR #: [id number] Department of Physician: Audie Bustos M.D. Division of Service Date: 06/11/2020 Cardiology Birthdate: 1960 Adult Cardiovascular Room #: [address] [place] [address] Cardiovascular Laboratory Report INDICATION: The patient a [...] signed informed consent. 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 The right neck area was prepped and draped in usual fashion. Using ultrasound guidance and micropuncture technique, the right internal jugular vein was accessed. A 6-Japanese x 11 cm sheath was placed. A 6-Japanese Duron catheter was used for right heart catheterization with measurement of pressures and calculation of cardiac output using the estimated Daysi method. Duron catheter was removed. Access in the right radial artery was obtained using micropuncture technique. A 6-Japanese x 11 cm Hydrophilic sheath was advanced. Verapamil was given through the sheath and heparin was administered intravenously. Note that modified David's test was favorable on the right. Initial catheter advancement was made, feasible using an angled Glidewire to overcome a radial artery loop, following which bilateral selective coronary angiography was performed using 6-Japanese JL3.5 and JR5 diagnostic catheter. Catheters were [...] P/Audie Bustos M.D. Date Trans: 06/12/2020 04:00 Chris/marguerite [id number] cc: Bayron Singh M.D. [address] [facility] [address] Normal The [facility] *SARS-CoV-2 COVID-19on 06-09 [id number] Not Detected Normal Not Detected [facility] Comment on above: Order Comment: The A ptima SARS-CoV-2 assay is a nucleic acid amplification test intended for the qualitative detection of RNA from SARS-CoV-2 isolated and purified from nasopharyngeal (MUSIC ARTIST),oropharyngeal (OP), nasal swab, sputum, and bronchoalveolar lavage (BAL) specimens from patients with signs and symptoms of infection who are suspected of COVID-19. Results are for the identification of SARS-CoV-2 RNA. The SARS-CoV-2 RNA is generally detectable during the acute phase of infection. The Aptima SARS-CoV-2 Assay on the Novaled and Novaled Fusion system is intended for use by laboratory personnel specifically instructed and trained in the operation of the [place] and Novaled Fusion system. The Aptima SARS-CoV-2 assay is [...] information. Performed By: #### 3 [id number] #### [facility] [place] [address] [facility] Chidi 02-17-2020 DAISHA Telephone ([employer]) DANIELLA BEJARANO ([id number]) 1960 F Date Time Provider Department 02/17/20 BONNY FELIPE During your visit today, we recorded the following information about you: [facility] 02/17/2020 2:53 PM Signed Records faxed to [facility]. Allergies As of Date: 02/17/2020 (No [...] Status:Closed by AI COLVIN on 02/17/[address] [facility] Social History Date Type Detail Facility Start: 03-27-2020 End: 01-26-2022 Tobacco smoking status Ex-smoker (finding) [facility] Start: 1960 Sex Assigned At Female F [facility] Tobacco smoking status Never [facility] Sex Assigned At Female [facility] Vital Signs Date Time Vital Sign Value Performing Clinician Facility 04-26-2023 10:40-0400 Heart rate 84 /min Jeff Booth [facility] 04-26-2023 10:40-0400 SaO2% (BldA) [Mass fraction] 98 % Jeffred Booth [facility] 04-26-2023 10:40-0400 Body temperature 97.52 [degF] [facility] 04-26-2023 10:39-0400 Diastolic blood pressure 75 mm[Hg] [facility] 10:39-0400 Mean blood pressure 87 mm[Hg] [facility]-26-2023 10:39-0400 Systolic blood pressure 111 mm[Hg] [facility] 04-26-2023 10:39-0400 Respiratory rate 16 /min Jeff Emmy [facility] 01-04-2023 08:01-0500 Blood Pressure Location Dina Lue [facility] 01-04-2023 08:01-0500 Diastolic blood pressure 82 mm[Hg] Dina Lue [facility] 01-04-2023 08:01-0500 Heart rate 71 /min Dina Lue [facility] 01-04-2023 08:01-0500 Systolic blood pressure 124 mm[Hg] Dina Lue [facility] 10-26-2022 10:26-0500 Blood Pressure Location AI RUY [facility] 10-26-2022 10:26-0500 Diastolic blood pressure 84 mm[Hg] AI RUY [facility] 10-26-2022 10:26-0500 Heart rate 65 /min AI RUY [facility] 10-26-2022 10:26-0500 Respiratory rate 16 /min AI DAVIDRY [facility] 10-26-2022 10:26-0500 Systolic blood pressure 123 mm[Hg] AI RUY [facility] 10-19-2022 08:01-0500 Blood Pressure Location Dina Lue [facility] 10-19-2022 08:01-0500 Diastolic blood pressure 64 mm[Hg] Dina Lue [facility] 10-19-2022 08:01-0500 Heart rate 66 /min Dina Lue [facility] 10-19-2022 08:01-0500 Systolic blood pressure 145 mm[Hg] Dina Lue [facility] 10-12-2022 08:11-0500 Blood Pressure Location Dina Lue [facility] 10-12-2022 08:11-0500 Diastolic blood pressure 68 mm[Hg] Dina Lue [facility] 10-12-2022 08:11-0500 Heart rate 74 /min Dina Lue [facility] 10-12-2022 08:11-0500 Respiratory rate 16 /min Dina Lue [facility] 10-12-2022 08:11-0500 Systolic blood pressure 132 mm[Hg] Dina Lue [facility] 07-06-2022 10:28-0400 Blood Pressure Location Dina Lue [facility] 07-06-2022 10:28-0400 Diastolic blood pressure 62 mm[Hg] Dina Lue [facility] 07-06-2022 10:28-0400 Heart rate 74 /min Dina Lue [facility] 07-06-2022 10:28-0400 Respiratory rate 16 /min Dina Lue [facility] 07-06-2022 10:28-0400 Systolic blood pressure 98 mm[Hg] Dina Lue [facility] 03-02-2022 09:27-0400 Blood Pressure Location AI RUY [facility] 03-02-2022 09:27-0400 Diastolic blood pressure 66 mm[Hg] AI RUY [facility] 03-02-2022 09:27-0400 Heart rate 64 /min AI RUY [facility] 03-02-2022 09:27-0400 Systolic blood pressure 137 mm[Hg] AI RUY [facility] 02-09-2022 08:17-0400 Blood Pressure Location [facility] 02-09-2022 08:17-0400 Diastolic blood pressure 64 mm[Hg] [facility] 02-09-2022 08:17-0400 Heart rate 60 /min [facility]ue [facility] 02-09-2022 08:17-0400 Respiratory rate 16 /min [facility]ina [facility]ue [facility] 02-09-2022 08:17-0400 Systolic blood pressure 133 mm[Hg] [facility]ue [facility] 02-02-2022 08:03-0400 Blood Pressure Location [facility]ina Lue [facility] 02-02-2022 08:03-0400 Diastolic blood pressure 100 mm[Hg] [facility] Lue [facility] 02-02-2022 08:03-0400 Heart rate 72 /min [facility]ina Lue [facility] 02-02-2022 08:03-0400 Systolic blood pressure 144 mm[Hg] [facility]ue [facility] 01-26-2022 08:18-0400 Blood Pressure Location Dina Lue [facility] [place] 01-26-2022 08:18-0400 Diastolic blood pressure 75 mm[Hg] Dina Lue [facility] 01-26-2022 08:18-0400 Heart rate 56 /min Dina Lue [facility] [place] 01-26-2022 08:18-0400 Systolic blood pressure 128 mm[Hg] Dina Lue [facility] [place] Functional Status Date Assessment Result Facility 01-04-2023 Functional Status N/A [facility] 10-26-2022 Functional Status N/A [facility] 10-19-2022 Functional Status N/A [facility] 10-12-2022 Functional Status N/A [facility] 07-06-2022 Functional Status N/A [facility] 06-22-2022 Functional Status N/A [facility] 05-18-2022 Functional Status N/A [facility] Clinical Notes 01-26-2022 to 04-10-2024 Note Date & Type Note Facility 04-10-2024 Note A. Satisfactory for evaluation. Examination of the ThinPrep slide reveals a hypocellular specimen containing scattered squamous cells and rare urothelial cells. [facility] Comment on above: Order Comment: Argelia reyes Performed By: #### L AB13 ####[facility] [place] [address] 04-10-2024 Note I PATIENT: Daniella Bejarano DATE OF : 1960 DATE OF VISIT: 04/10/24 [facility]&P LISA ZELAYA M.D., F.A.C.S. [...] recurrent bladder tumor. 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 - 01/26/2022: [...] diagnosis bilaterally. Therefore she was referred to pr for further management. Ms. Bejarano underwent white [...] not included)... [facility] 04-10-2024 Note Patient ID: Daniella Bejarano is a 63 y.o. female. Cystoscopy Date/Time: 04/10/2024 9:28 PM Performed by: Lisa Zelaya MD Authorized [...] with evidence of scarring. No evidence of any erythema. Urine cytology obtained. Procedure The patient was [...] Plan 1. See office note for details. Lisa Zuniga MD was present in the procedure room for the entire procedure. [facility] 04-03-2024 Note 6--24@ 0715 [place] copy with EMR procedure note along with pathology results faxed to referring office of Dr. Myrna Lutz @[phone]. [facility] 03-19-2024 Note Patient: Daniella stevens Procedure Summary Date: 03/19/24 Room / Location: [facility] Anesthesia Start: 1143 Anesthesia Stop: 1316 Procedure: DIAGNOSTIC COLONOSCOPY Diagnosis: Adenomatous polyp of colon, unspecified part of colon Scheduled Providers: Jenn Thompson MD; JOAN Bateman; Lázaro Lopes MD Responsible Provider: Lázaro Lopes MD Anesthesia Type: general ASA Status: 3 Anesthesia Type: general Vitals Value Taken Time BP 121/63 03/19/24 1313 Temp 36 ???C (96.8 ???F) 03/19/24 1313 Pulse 77 03/19/24 1313 Resp 16 03/19/24 1313 SpO2 96 % 03/19/24 1313 Anesthesia Post Evaluation Patient location during evaluation: PACU Patient participation: complete - patient participated Level of consciousness: awake Pain score: 0 Pain management: adequate Airway patency: patent Cardiovascular status: stable Respiratory status: acceptable Hydration status: balanced No notable events documented. [facility] 03-19-2024 Note Airway Date/Time: 03/19/2024 11:51 AM Urgency: elective General Information and Staff Patient location during procedure: OR Anesthesiologist: Lázaro Lopes MD Resident/PORTER BATH/CAA: Kurtis Regalado DO Performed: resident/PORTER BATH/CAA Indications and Patient Condition Indications for airway management: anesthesia Spontaneous Ventilation: absent Sedation level: deep Preoxygenated: yes Patient position: sniffing Mask difficulty assessment: 1 - vent by mask Final Airway Details Final airway type: endotracheal airway Successful airway: ETT Cuffed: yes Successful intubation technique: video laryngoscopy Facilitating devices/methods: intubating stylet and anterior pressure/BURP Endotracheal tube insertion site: oral Blade: Carreon Blade size: #3 ETT size (mm): 7.5 Cormack-Lehane Classification: grade I - full view of glottis Placement verified by: chest auscultation and capnometry Measured from: lips ETT to lips (cm): 23 Number of attempts at approach: 1 Number of other approaches attempted: 0 [facility] 03-19-2024 Note Patient: Daniella stevens Procedure Information Date/Time: 03/19/24 1115 Scheduled providers: Jenn Thompson MD; JOAN Bateman; Lázaro Lopes MD Procedure: DIAGNOSTIC COLONOSCOPY Location: [facility]oscopy Relevant Problems Anesthesia (+) Obstructive sleep apnea syndrome Cardio Denies chest pain/SOB ECHO 2020 normal Lv fn, EF 60% (+) Aneurysm of coronary vessels (+) Essential hypertension GI (+) GERD without esophagitis Pulmonary (within normal limits) Other (+) Arthritis Clinical information reviewed: Tobacco Allergies Meds Med Hx Surg Hx Fam Hx Soc Hx Physical Exam Airway Mallampati: II TM distance: >3 FB Neck ROM: full Cardiovascular - normal exam Dental - normal exam Pulmonary - normal exam Abdominal Anesthesia Plan ASA 3 MAC The patient is not a current smoker. Patient was not previously instructed to abstain from smoking on day of procedure. Patient did not smoke on day of procedure. intravenous induction Anesthetic plan and risks discussed with patient. Plan discussed with CAA. Additional Equipment Requests [facility] 03-12-2024 Note Medications to take AM day of procedure with sips water only: Pantoprazole Medication Hold instructions: NSAIDs (Motrin,Aleve): 5 days prior to procedure Vitamins/Supplements: 5 days prior to procedure IF YOU ARE GOING HOME AFTER YOUR SURGERY OR PROCEDURE, FOR YOUR SAFETY, YOUR SURGERY WILL BE CANCELLED IF BOTH OF THE FOLLOWING ARE NOT AVAILABLE: An adult oil transport driver over the age of 18, that can receive information about your care after surgery, and drive you home. A responsible adult to stay with you for 24 hours in case of an emergency. Can be same as above. The highest risk of complications is within the first 24 hours after sedation/anesthesia. Nothing to eat or drink after midnight the night before surgery. This includes gum, candy, mints, and lozenges. No alcohol, marijuana, or tobacco products including vaping for 24 hours. Please brush your teeth; don't swallow the toothpaste or water. If you use dentures, wear them but do not use paste. Please leave any other removable dental hardware at home. Do not put in contact lenses. Do not wear perfume, make-up, nail serbian, or lotions on the day of your surgery or procedure. Follow skin-prep/wipe instructions as below if required. Bring with you: *Insurance card *Photo ID *Medication list *Co-pay for visit/prescriptions If applicable: *Rescue inhalers *Green bracelet from lab *CPAP or BiPAP machine, if staying overnight *Any braces, splints, or equipment ordered preoperatively *Remote controls for implanted devices Leave at home: *Purse/Wallet/Arriaga- unless needed for co-pay *Cell phone (can leave with family/friend or place in locker if needed) *Jewelry (including piercings and wedding bands) *If not possible, ask the person who is waiting with you to keep them Children under the age of 12 will not be allowed into patient care areas. We will call you between 3pm and 4pm the day before your surgery to give you an arrival time. If you do not receive this call, have any questions, or need to make any changes, please call [phone]. Notify your surgeon if you develop any illness such as a cold, cough, fever, sore throat or vomiting between now and your surgery. Thank you for entrusting us with your care. [facility] Surgical Services Team [facility] 02-09-2024 Note RCRI= 1???points Cla ss II Risk 6.0???% 30-day risk of , [place], or cardiac arrest From a cardiac perspective pt may proceed with colonoscopy, she is a low risk for a low risk procedure. She may hold Aspirin if absolutely needed. Please monitor hemodynamics carefully and prevent any major fluid shifts. 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 Or any concerns [facility] 02-09-2024 Note Patient here for fol low [...] are negative. [facility] 02-09-2024 Note [facility] CARDIOLOGY PROGR ESS NOTE [facility] HPI: Daniella Bejarano is a 63 [...] not included)... [facility] 01-10-2024 Note Satisfactory for michele luation. Examination of the ThinPrep slide reveals a hypocellular specimen consisting of benign urothelial cells and squamous cells. [facility] Comment on above: Order Comment: Via c ysto Performed By: #### L [id number] #### [facility] ([facility]) [address] [place] [address] 01-10-2024 Note Patient ID: Daniella Bejarano is [...] entire procedure. [facility] 01-10-2024 Note I PATIENT: Daniella Bejarano DATE [...] recurrent bladder tumor. 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 - 01/26/2022: [...] not included)... [facility] 01-02-2024 Note 2-3 day holter monit or today to assess for any arrythmias, PVC burden Check BMP and mag level today to assess electrolyte level She may benefit from beta neal dependent upon holter results [facility] 01-02-2024 Note C/O worsening SOB wi th exertion and edema, will check echocardiogram to assess cardiac function, RV function and rt sided pressures, valvular function [facility] 01-02-2024 Note stable [facility] 01-02-2024 Note Hypertension is well controlled currently 124/80 Continue olmesartan 40 mg daily. Depending upon holter monitor result she may benefit from a beta neal for frequent PVCs and palpitations [facility] 01-02-2024 Note Patient here c/o SOB , [...] are negative. [facility] 01-02-2024 Note UTP CARDIOLOGY PROGR ESS NOTE [...] 0 [DISCONTINUED] ergocalciferol (Vitamin D-2) 1.25 MG (71531 Units) capsule Take by mouth. [DISCONTINUED] oxybutynin [...] - 1.02 mg/dL 1.07 High TBH EGFR-AF OMANI >=60 >60 TBH EGFR-NON AF OMANI >=60 51 Low BUN CREATININE RATIO 13.1 CALCIUM 8. (more content not included)... [facility] 10-04-2023 Note Satisfactory for michele luation. Examination of the ThinPrep slide reveals benign urothelial cells and squamous cells in a background of lubricant. [facility] Comment on above: Order Comment: Via jose roberto reyes Performed By: #### L [id number] #### [facility] ([facility] [address] [place] [address] 10-04-2023 Note Patient ID: Daniella Bejarano is [...] entire procedure. [facility] 10-04-2023 Note I PATIENT: Daniella Bejarano DATE [...] recurrent bladder tumor. 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 - 01/26/2022: [...] not included)... [facility] 06-28-2023 Note Satisfactory for michele luation. Examination of the ThinPrep slide reveals squamous cells and scattered urothelial cells in a background of few inflammatory cells and lubricant. [facility] Comment on above: Order Comment: Via jose roberto reyes Performed By: #### L [id number] #### [facility] ([facility] [address] [place] [address] 06-28-2023 Note Patient ID: Daniella Bejarano is [...] entire procedure. [facility] 06-28-2023 Note I PATIENT: Daniella Bejarano DATE [...] recurrent bladder tumor. 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 - 01/26/2022: [...] not included)... [facility] 06-02-2023 Note Bernarda Hagan RN e xplained the procedure to Daniella Bejarano and Daniella A Neikirk verbalized understanding. Daniella [...] Center. Bernarda Hagan RN then informed Infusion clerical receptionist that Daniella A Neikirk was ready for treatment. [facility] 05-26-2023 Note Danielle Briggs MA expl ained [...] [place] [id number] down to the Infusion Center. Danielle Briggs MA then informed Infusion clerical receptionist that Daniella A Neikirk was ready for treatment. [facility] 05-19-2023 Note 7991 Zaria Jackson exp lained [...] bag of personal belongings, then transported by [id number] down to the Infusion Center. 7991 then informed Infusion clerical receptionist that Daniella Wallsrmario was ready for treatment. [facility] 05-12-2023 Note 1110 Patient arrived by wheelchair with gutierrez catheter intact, draining clear pale yellow urine. Jose Roberto Rivera RN 1130 Reviewed home care. Drink 60 ounces of fluid over next 24 hours. Flush toilet twice for next 6 hours after each void. Call Dr. Zelaya office if fever greater than 100.4 or blood in urine or chills. Addi TAMAOY 1400 Patient tolerated well, no leaking. Two drugs, at separate times, intravesicular instillations. CPetersRN [facility] 05-12-2023 Note 7991Zaria irizarry ained the procedure to Daniella A Neikirk and Daniella Perez Neikirk verbalized understanding. Daniella A Neikirk was [...] well. After gutierrez was in place, Daniella Wallsrmario was placed in a wheelchair, given her bag of personal belongings, then transported by 7991 down to the Infusion Center. 7991 then informed Infusion clerical receptionist that Daniella Wallsrmario was ready for treatment. [facility] 05-05-2023 Note 1040- pt arrived to infusino [...] completely drained. [facility] 05-05-2023 Note Zaria Jackson explaine d the [...] Zaria Jackson down to the Infusion Center. 7985 Zaria Mayfield then informed Infusion clerical receptionist that Daniella A Neikirk was ready for treatment. [facility] 04-28-2023 Note Pt arrived with fole y in place from urology clinic draining clear yellow urine. Docetaxel instilled and held 60 minutes, drained to gutierrez bag. Gemcitabine instilled and held 60 minutes, drained to gutierrez bag. Gutierrez removed upon completion, tolerated treatment well. Reviewed home precautions with patient. [facility] 04-28-2023 Note 7991 Zaria Jackson exp lained [...] bag of personal belongings, then transported by 7983 down to the Infusion Center. 0107 then informed Infusion clerical receptionist that Daniella A Neikirk was ready for treatment. Zaheer Briggs [facility] 01-04-2023 Hospital Discharge instructions Patient Education 01/04/2023 [...] cells. Follow these instructions at home: Take fnto-icd-ucshaso and prescription medicines only as told by [...] is important. Where to find more information [employer]: www.cancer.org National Cancer Dum[place] (NCI): www.cancer.gov Contact a health care provider [...] 10/18/2004 Document Revised: 09/28/2018 Document Reviewed: 09/19/2017 [employer] Patient Education 2019 [employer] Follow Up Care 01/02/2023 12:19:37 With:Reza JAMES, ISAIAH Mckeon, URO Address: When: Unknown [facility] 10-19-2022 Hospital Discharge instructions Patient Education 10/19/2022 [...] cells. Follow these instructions at home: Take ulsx-szw-bujbtqc and prescription medicines only as told by [...] is important. Where to find more information [employer]: www.cancer.org National Cancer Dumas (NCI): www.cancer.gov Contact a health care provider [...] 10/18/2004 Document Revised: 09/28/2018 Document Reviewed: 09/19/2017 [employer] Patient Education 2019 [employer] [facility] 10-12-2022 Hospital Discharge instructions Patient Education 10/12/2022 [...] cells. Follow these instructions at home: Take zrhl-lec-nposejr and prescription medicines only as told by [...] is important. Where to find more information [employer]: www.cancer.org National Cancer Dum[place] (NCI): www.cancer.gov Contact a health care provider [...] 10/18/2004 Document Revised: 09/28/2018 Document Reviewed: 09/19/2017 [employer] Patient Education 2020 [employer] Follow Up Care 08/22/2022 12:52:59 With:Reza JAMES, ISAIAH Mckeon, URO Address: When:1 week Comments:BCG #2 of #3 [facility] 10-05-2022 Hospital Discharge instructions Follow Up Care 10/05/2022 15:19:40 With:AI MITCHELL PA-C, URL Address: [address] [place] [address] When: Unknown [facility] 07-06-2022 Hospital Discharge instructions Patient Education 07/06/2022 [...] cells. Follow these instructions at home: Take vect-axn-fctqxod and prescription medicines only as told by [...] is important. Where to find more information [employer]: www.cancer.org National Cancer Dum[place] (NCI): www.cancer.gov Contact a health care provider [...] 10/18/2004 Document Revised: 09/28/2018 Document Reviewed: 09/19/2017 [employer] Patient Education 2020 [employer] Follow Up Care 05/18/2022 11:12:11 With:Reza JAMES, ISAIAH Mckeon, URO Address: When: Unknown [facility] 06-29-2022 Hospital Discharge instructions Patient Education 06/29/2022 [...] cells. Follow these instructions at home: Take zaqs-oen-ezkjszx and prescription medicines only as told by [...] is important. Where to find more information [employer]: www.cancer.org National Cancer Dum[place] (NCI): www.cancer.gov Contact a health care provider [...] 10/18/2004 Document Revised: 09/28/2018 Document Reviewed: 09/19/2017 [employer] Patient Education 2020 [employer] Follow Up Care 05/18/2022 11:11:14 With:Reza JAMES, Dina Oconnell, MEENAKSHIL, URO Address: When:Within 1 Week(s) Comments:BCG #3 [facility] 06-22-2022 Hospital Discharge instructions Patient Education 06/22/2022 [...] cells. Follow these instructions at home: Take slwd-sgq-zptrfmc and prescription medicines only as told by [...] is important. Where to find more information [employer]: www.cancer.org National Cancer Dum[place] (NCI): www.cancer.gov Contact a health care provider [...] 10/18/2004 Document Revised: 09/28/2018 Document Reviewed: 09/19/2017 [employer] Patient Education 2020 [employer] Follow Up Care 05/18/2022 11:09:55 With:Reza JAMES, Dina M., URL, URO Address: When:1 week Comments:bcg #2 [facility] 05-18-2022 Hospital Discharge instructions Patient Education 05/18/2022 [...] cells. Follow these instructions at home: Take cchq-zmg-ysjmwys and prescription medicines only as told by [...] is important. Where to find more information [employer]: www.cancer.org National Cancer Dum[place] (NCI): www.cancer.gov Contact a health care provider [...] 10/18/2004 Document Revised: 09/28/2018 Document Reviewed: 09/19/2017 [employer] Patient Education 2020 [employer] Follow Up Care 05/12/2022 12:08:46 With:Reza JAMES, ISAIAH Mckeon, URO Address: When:1 month [facility] 03-17-2022 Hospital Discharge instructions Follow Up Care 03/17/2022 16:12:48 With:Jeff Booth Address: [facility] [place] [address] [phone] Fax Business (1) When: Unknown Comments:f/u 1 year. no labs. [facility] 03-02-2022 Hospital Discharge instructions Patient Education 03/02/2022 [...] cells. Follow these instructions at home: Take obxs-teh-zntbgal and prescription medicines only as told by [...] is important. Where to find more information [employer]: www.cancer.org National Cancer Dum[place] (NCI): www.cancer.gov Contact a health care provider [...] 10/18/2004 Document Revised: 09/28/2018 Document Reviewed: 09/19/2017 [employer] Patient Education 2020 [employer] Follow Up Care 12/29/2021 09:06:11 With:AI MITCHELL PA-C URL Address: [address] [place] [address] When: Unknown Comments:follow up after cysto with [facility] 02-09-2022 Hospital Discharge instructions Patient Education [...] cells. Follow these instructions at home: Take crkr-tqp-rigjxlq and prescription medicines only as told by [...] is important. Where to find more information [employer]: www.cancer.org National Cancer Dum[place] (NCI): www.cancer.gov Contact a health care provider [...] 10/18/2004 Document Revised: 09/28/2018 Document Reviewed: 09/19/2017 [employer] Patient Education 2020 [employer] Follow Up Care 12/29/2021 09:03:01 With:Reza JAMES, ISAIAH Mckeon, URO Address: When: Unknown [facility] 02-02-2022 Hospital Discharge instructions Patient Education [...] cells. Follow these instructions at home: Take utmz-etp-fwziuyl and prescription medicines only as told by [...] is important. Where to find more information [employer]: www.cancer.org National Cancer Dum[place] (NCI): www.cancer.gov Contact a health care provider [...] 10/18/2004 Document Revised: 09/28/2018 Document Reviewed: 09/19/2017 [employer] Patient Education 2020 [employer] Follow Up Care 12/29/2021 09:02:14 With:Reza JAMES, ISAIAH Mckeon, URO Address: When: Unknown [facility] 01-26-2022 Hospital Discharge instructions Patient Education [...] cells. Follow these instructions at home: Take bvnl-nte-gtjfxow and prescription medicines only as told by [...] is important. Where to find more information [employer]: www.cancer.org National Cancer Dum[place] (NCI): www.cancer.gov Contact a health care provider [...] 10/18/2004 Document Revised: 09/28/2018 Document Reviewed: 09/19/2017 [employer] Patient Education 2020 [employer] Follow Up Care 12/29/2021 08:59:52 With:Dina Cobb MD, URL, URO Address: [address] [place] [phone] Business (1) When: Unknown [facility] Evaluation + Plan note Future Appointments Appointment Date:02/02/2022 08:00:00 AM Scheduled Provider:Dina Cobb MD Location:[facility] Appointment Type:URO Office Visit Appointment Date:02/09/2022 08:00:00 AM Scheduled Provider:Dina Cobb MD Location:[facility] Appointment Type:URO Office Visit Appointment Date:02/16/2022 08:00:00 AM Scheduled Provider:Dina Cobb MD Location:[facility] Appointment Type:URO Office Visit Appointment Date:02/23/2022 08:00:00 AM Scheduled Provider:Dina Cobb MD Location:[facility] Appointment Type:URO Office Visit Appointment Date:03/02/2022 09:30:00 AM Scheduled Provider:Dina Cobb MD Location:[facility] Appointment Type:URO Office Visit Appointment Date:03/17/2022 03:00:00 PM Scheduled Provider:Jeff Booth DO [facility] Office Visit New (FT) [facility] Evaluation + Plan note Future Appointments Appointment Date:02/02/2022 08:00:00 AM Scheduled Provider:Dina Cobb MD Location:[facility] Appointment Type:URO Office Visit Appointment Date:02/09/2022 08:00:00 AM Scheduled Provider:Dina Cobb MD Location:[facility] Appointment Type:URO Office Visit Appointment Date:02/16/2022 08:00:00 AM Scheduled Provider:Dina [facility] MD [facility] Type[facility] Office Visit Appointment Date:02/23/2022 08:00:00 AM Scheduled Provider:Dina Cobb MD [facility] Type:URO Office Visit Appointment Date:03/02/2022 09:30:00 AM Scheduled Provider:Dina Cobb MD Location:[facility] Appointment Type:URO Office Visit Appointment Date:03/17/2022 03:00:00 PM Scheduled Provider:Jeff Booth DO Location:.ONCOLOGY Appointment Type:ONC Office Visit New 30 (FT) Diagnostic Tests PendingUrine Culture 01/26/22 [facility] Evaluation + Plan note Future Appointments Appointment Date:02/09/2022 08:00:00 AM Scheduled Provider:Dina Cobb MD Location:[facility] Appointment Type:URO Office Visit Appointment Date:02/16/2022 08:00:00 AM Scheduled Provider:Dina Cobb MD Location:[facility] Appointment Type:URO Office Visit Appointment Date:02/23/2022 08:00:00 AM Scheduled Provider:Dina Cobb MD [facility] Type:URO Office Visit Appointment Date:03/02/2022 09:30:00 AM Scheduled Provider:Dina Cobb MD Location:[facility] Appointment Type:URO Office Visit Appointment Date:03/17/2022 03:00:00 PM Scheduled Provider:Jeff Booth DO [facility] Type:[facility]C Office Visit New 30 (FT) [facility] Evaluation + Plan note Future Appointments Appointment Date:02/16/2022 08:00:00 AM Scheduled Provider:Dina Cobb MD Location:[facility] Appointment Type:URO Office Visit Appointment Date:02/23/2022 08:00:00 AM Scheduled Provider:Dina Cobb MD Location:[facility] Appointment Type:URO Office Visit Appointment Date:03/02/2022 09:30:00 AM Scheduled Provider:Dina Cobb MD Location:[facility] Appointment Type:URO Office Visit Appointment Date:03/17/2022 03:00:00 PM Scheduled Provider:Jeff Booth DO Location:[facility].ONCOLOGY Appointment Type:ONC Office Visit New 30 (FT) [facility] Evaluation + Plan note Future Appointments Appointment Date:03/17/2022 03:00:00 PM Scheduled Provider:Jeff Booth DO Location:[facility]ONCOLOGY Appointment Type:ONC Office Visit New 30 (FT) [facility] Evaluation + Plan note Future Appointments Appointment Date:03/15/2023 12:30:00 PM Scheduled Provider:Jeff Booth DO Location:[facility].ONCOLOGY Appointment Type:ONC Office Visit 15 (FT) Diagnostic Tests PendingUrine Culture 03/25/22 [facility] Evaluation + Plan note Future Appointments Appointment Date:03/15/2023 12:30:00 PM Scheduled Provider:Jeff Booth DO Location:[facility].ONCOLOGY Appointment Type:ONC Office Visit 15 (FT) [facility] Evaluation + Plan note Future Appointments Appointment Date:06/22/2022 10:15:00 AM Scheduled Provider:Dina Cobb MD Location:[facility] Appointment Type:URO Office Visit Appointment Date:06/29/2022 10:15:00 AM Scheduled Provider:Dina Cobb MD Location:[facility] Appointment Type:URO Office Visit Appointment Date:07/06/2022 10:15:00 AM Scheduled Provider:Dina Cobb MD Location:[facility] Appointment Type:URO Office Visit Appointment Date:03/15/2023 12:30:00 PM Scheduled Provider:Jeff Booth DO Location:[facility]ONCOLOGY Appointment Type:ONC Office Visit 15 (FT) [facility] Evaluation + Plan note Future Appointments Appointment Date:06/29/2022 07:45:00 AM Scheduled Provider:Dina Cobb MD Location:[facility] Appointment Type:URO Office Visit Appointment Date:07/06/2022 10:15:00 AM Scheduled Provider:Dina Cobb MD Location:[facility] Appointment Type:URO Office Visit Appointment Date:03/15/2023 12:30:00 PM Scheduled Provider:Jeff Booth DO Location:[facility].ONCOLOGY Appointment Type:ONC Office Visit 15 (FT) [facility] Evaluation + Plan note Future Appointments Appointment Date:07/06/2022 10:15:00 AM Scheduled Provider:Dina Cobb MD Location:[facility] Appointment Type:URO Office Visit Appointment Date:03/15/2023 12:30:00 PM Scheduled Provider:Jeff Booth DO Location:[facility].ONCOLOGY Appointment Type:ONC Office Visit 15 (FT) Diagnostic Tests PendingBUN 06/29/22Creatinine 06/29/22 [facility] Evaluation + Plan note Future Appointments Appointment Date:10/19/2022 08:00:00 AM Scheduled Provider:Dina Cobb MD Location:[facility] Appointment Type:URO Office Visit Appointment Date:10/26/2022 10:30:00 AM Scheduled Provider:AI MITCHELL PA-C Location:[facility] Appointment Type:URO Office Visit Appointment Date:03/15/2023 12:30:00 PM Scheduled Provider:Jeff Booth DO Location:[facility].ONCOLOGY Appointment Type:ONC Office Visit 15 (FT) [facility] Evaluation + Plan note Future Appointments Appointment Date:10/26/2022 10:30:00 AM Scheduled Provider:AI MITCHELL PA-C Location:[facility] Appointment Type:URO Office Visit Appointment Date:03/15/2023 12:30:00 PM Scheduled Provider:Jeff Booth DO Location:[facility]ONCOLOGY Appointment Type:ONC Office Visit 15 (FT) [facility] Evaluation + Plan note Future Appointments Appointment Date:03/15/2023 12:30:00 PM Scheduled Provider:Jeff Booth DO Location:[facility].ONCOLOGY Appointment Type:ONC Office Visit 15 (FT) Diagnostic Tests PendingUrine Culture 12/14/22 [facility] Evaluation + Plan note Future Appointments Appointment Date:04/24/2024 11:00:00 AM Scheduled Provider:Jeff Booth DO Location:[facility].ONCOLOGY Appointment Type:ONC Office Visit 15 (FT) [facility] Evaluation note No assessment inform ation available [facility] Work Phone: Hospital course Narrative No data available for this section [facility] Hospital Discharge instructions No data available for this section [facility] Progress note No data available for this section [facility] Summary Purpose Family History No Family History Records Found Relationship Condition Age at Onset Recorded Date/T jacinto brother Arthritis Unknown father Unknown Not Specified History of stroke Unknown sister Myocardial infarction Unknown Advance Directives No Advanced Directives Records Found Advance Directive Response Recorded Date/ Time Advance Directives No March 26 12:51pm Additional Source Comments INFORMATION SOURCE (unrecogn ized section and content) DATE CREATED AUTHOR 06/24/2020 [facility] DATE CREATED AUTHOR AUTHOR'S ORGANIZ ATION 09/01/2020 [facility] DATE CREATED AUTHOR AUTHOR'S ORGANIZ ATION 11/21/2020 [facility] DATE CREATED AUTHOR AUTHOR'S ORGANIZ ATION 03/09/2023 [facility] DATE CREATED AUTHOR AUTHOR'S ORGANIZ ATION 06/28/2023 [facility] DATE CREATED AUTHOR AUTHOR'S ORGANIZ ATION 02/19/2024 [facility] EPIC DATE CREATED AUTHOR AUTHOR'S ORGANIZ ATION 02/24/2024 [facility] DATE CREATED AUTHOR AUTHOR'S FERNANDO FERRARA 04/13/2024 [facility] Care Team (unrecognized sect ion and content) Team Status: Active Member Role Status Dates Bayron Singh MD Primary Care Provider Active Team Status: Inactive Member Role Status Dates Bayron Singh MD Primary Care Provider Active S tart: February 14, 2024 End: February 14, 2024 Jeff Lutz Attending Provider Active Start: February 14, 2024 End: February 14, 2024 Goals (unrecognized section and content) Goals may [...] BE BASED ON THE PRIMARY CLINICAL RECORDS. [facility] [employer] provides no warranty or guarantee of the accuracy or completeness of information in this document.
[2024-04-24 11:41] LABS: Basophils Percent Auto 0.6 % (0.2-2.0); Eosinophils Absolute Auto 0.1 10^3/uL (0.0-0.7); Eosinophils Percent Auto 2.5 % (0.9-7.0); Hematocrit 36.2 % (36.0-48.0); Hemoglobin 11.4 g/dL (12.0-16.0); Immature Granulocytes Abs Auto 0.02 10^3/uL (0.00-0.03); Immature Granulocytes Pct Auto 0.4 % (0.0-0.5); Lymphocytes Percent Auto 20.7 % (20.5-60.0); Mean Corpuscular HGB Conc 31.5 g/dL (29.9-35.2); Mean Corpuscular Hemoglobin 27.8 pg (26.7-34.0); Mean Corpuscular Volume 88.3 fL (81.0-99.0); Mean Platelet Volume 9.7 fL (9.5-13.5); Monocytes Absolute Auto 0.4 10^3/uL (0.3-0.8); Monocytes Percent Auto 9.1 % (1.7-12.0); Neutrophils Absolute Auto 3.2 10^3/uL (1.4-6.5); Neutrophils Percent Auto 66.7 % (43.0-75.0); Platelet Count 184 10^3/uL (150-450); Red Cell Distribution Width 14.9 % (11.0-15.0); White Blood Count 4.8 10^3/uL (4.0-11.0)
[2024-04-24 12:07] LABS: Alanine Aminotransferase 67 U/L (14-59); Albumin Globulin Ratio 0.9; Albumin Level 3.4 g/dL (3.4-5.0); Alkaline Phosphatase 88 U/L (46-116); Aspartate Amino Transferase 66 U/L (15-37); BUN Creatinine Ratio 14.8; Bilirubin Total 0.5 mg/dL (0.2-1.0); Calcium 9.2 mg/dL (8.5-10.1); Carbon Dioxide 25.1 mmol/L (21.0-32.0); Chloride 105 mmol/L (98-107); Estimated GFR (African America >60 (>=60); Estimated GFR (Non-African Ame 51 (>=60); Globulin 3.7 g/dL; Glucose 196 mg/dL (74-106); Potassium 4.1 mmol/L (3.5-5.1); Sodium 141 mmol/L (136-145); Total Protein 7.1 g/dL (6.4-8.2)
== END 2024-04-24 11:12 | disposition home or self-care (01) ==
LOC: LAB 11:12
PROVIDERS: PCP Family Medicine; Visit Provider Internal Medicine Rheumatology
DX: M19.90 Unspecified osteoarthritis, unspecified site (principal); Z51.81 Encounter for therapeutic drug level monitoring
CPT/HCPCS: 36415; 80053; 85025

== ENCOUNTER 2024-05-08 07:38 | Outpatient (RCR) | payer BC, SELFPAY ==
[2024-05-08 09:50] VITALS: BP 128/79; PULSE 70; TEMP 36.4; O2SAT 97
[2024-05-08] MEDS: GEMCITABINE HCL INTRAVESIC (10:10)
[2024-05-08] MEDS: WATER FOR INJECTION STERILE INTRAVESIC (10:10)
--- NOTE | 2024-05-08 10:19 | PC.NURSE ---
0950: Pt. to [facility] amb. for intravesicular chemo treatment. Pt. positioned on bed. VSS. Using sterile technique, #16 Fr. christian cath inserted into bladder with immediate return of 100cc clear yellow urine. Christian secured. Pt. tolerated with minimal c/o discomfort. Pt. relays comfort. Denies needs. 1010: Gemzar 1,000mg instilled into bladder via christian cath at this time. Instructed pt. to turn side to side and front to back every 15min x's 1hr. Pt. relays understanding.
--- NOTE | 2024-05-08 10:35 | PC.NURSE ---
Pt. tolerating treatment without c/o. Warm blanket provided.
[2024-05-08] MEDS: SODIUM CHLORIDE 0.9% INTRAVESIC (11:12)
[2024-05-08] MEDS: DOCETAXEL INTRAVESIC (11:12)
--- NOTE | 2024-05-08 11:16 | PC.NURSE ---
1105: Pt. relays feeling like bladder going to burst . Bladder emptied at this time for 175cc clear yellow urine/med. Relays relief. Requests to stand up at side of bed. Pt. given several minutes to stand up. 1112: Returns to supine position on bed. Bladder instilled with Docetaxel 37.5mg. Reminded pt. to turn side to side and front to back every 15min. x's 1hr. Relays understanding.
--- NOTE | 2024-05-08 11:35 | PC.NURSE ---
Pt. tolerating treatment without c/o. Denies needs.
--- NOTE | 2024-05-08 12:07 | PC.NURSE ---
1204: Pt. requests to empty bladder due to fullness Bladder emptied for 100cc clear,yellow urine/med. Gutierrez cath d/c'd. Pt. tolerated without c/o. Given wash cloths for pamela care. No redness or irritation observed in perineum. Denies burning or pain. 1209: Pt. d/c'd amb to home.
[2024-05-08 12:09] VITALS: BP 124/66; PULSE 66; TEMP 36.5; O2SAT 99
== END 2024-05-09 15:17 | disposition home or self-care (01) ==
LOC: INF 07:38
PROVIDERS: PCP Family Medicine
DX: C67.4 Malignant neoplasm of posterior wall of bladder (principal)
CPT/HCPCS: 51700; J9171; J9201

== ENCOUNTER 2024-05-09 10:04 | Outpatient (OUT) | payer BC, SELFPAY ==
--- NOTE | 2024-05-09 10:06 | MM_ITS ---
Patient Name: DANIELLA BEJARANO MR#: [id number] : 1960 Exam Date: 05/09/2024 Ordering Doctor: DR Bayron Wells . RADIOLOGY REPORT PROCEDURE: MM TOMOSYNTHESIS SCREENING LT COMPARISON: MM TOMOSYNTHESIS SCREENING LT, 05/08/2023. INDICATIONS: Screening Calculator Name NCI Breast Cancer Risk Assessment Tool 5 Year Breast Cancer Risk n/a% Lifetime Breast Cancer Risk n/a% Personal Breast Cancer Yes, Invasive CA of Right, 56 Personal Ovarian Cancer No Treatments Right mastectomy Family Cancers Aunt-maternal with breast cancer at age ~70; Aunt-paternal with breast cancer at age ~70. LOCATION: [facility] BREAST COMPOSITION: There are scattered areas of fibroglandular density. FINDINGS: DIAGNOSTIC CATEGORY 1--NEGATIVE. NO CHANGE FROM COMPARISON ASSESSMENT. LEFT BREAST: No significant suspicious finding. RECOMMENDATIONS: ROUTINE MAMMOGRAM AND CLINICAL EVALUATION IN 12 MONTHS. PLEASE NOTE: A NORMAL MAMMOGRAM DOES NOT EXCLUDE THE POSSIBILITY OF BREAST CANCER. A CLINICALLY SUSPICIOUS PALPABLE LUMP SHOULD BE BIOPSIED. Dictated by: Darian Whatley MD on 05/09/2024 at 12:58 Approved by: Darian Whatley MD on 05/09/2024 at 12:59
== END 2024-05-09 10:05 | disposition home or self-care (01) ==
LOC: MAMMO 10:04
PROVIDERS: PCP Family Medicine; Visit Provider Family Medicine
DX: Z12.31 Encounter for screening mammogram for malignant neoplasm of breast (principal); Z80.3 Family history of malignant neoplasm of breast
CPT/HCPCS: 77063; 77067

== ENCOUNTER 2024-05-23 06:39 | Outpatient (OUT) | payer BC, SELFPAY ==
--- OUTSIDE RECORDS SUMMARY | 2024-05-23 06:44 | XMS_ITS | CCD ---
Author Organization [facility] Care Team Providers Care Geodetic Surveyor Technologist Name Role Phone UNKNOWN, PROVIDER Admitting Unavailable UNKNOWN, PROVIDER Attending Unavailable SELF, REFERRED Referring Unavailable BAYRON SINGH Primary Care Unavailable SHANTAEREBAYRON Narvaez Primary Care Physician LUE ., DINA M Attending Unavailable LUE ., DINA M Admitting Unavailable LUE ., DINA M Consulting Unavailable NADERER, DR BAYRON Perez Primary Care Unavailable LUE ., DINA M Attending Unavailable LUE ., DINA M Admitting Unavailable [place], DR SPARKLE Napoles Consulting Unavailable NADERER, DR BAYRON Perez Primary Care Unavailable LUE ., DINA Sneed Consulting Unavailable NADERER, DR BAYRON Perez Primary Care Unavailable FAWWAD, COLLAZO H Admitting Unavailable FAWWAD, COLLAZO H Attending Unavailable FAWWAD, COLLAZO H Consulting Unavailable NEFCY PETER Consulting Unavailable LUE ., DINA M Attending [...] NADERER, DR BAYRON Perez Primary Care Unavailable NADERESolange, DR BAYRON Perez Attending Unavailable NADERER, DR [...] Perez Primary Care Unavailable POLICAROJULISSA Consulting Unavailable KATKO, KAYKAY Navarro Admitting Unavailable [...] Attending Unavailable Lue, Dina M. Attending Unavailable Dina Cobb Attending Unavailable Dina Cobb Attending Unavailable MorowiczJeff Attending Unavailable Jeff Booth Admitting Unavailable [place] brown Admitting Unavailable [place] Creek[place]anca rivera Attending Unavailable Dina Cobb Attending Unavailable Dina Cobb Admitting Unavailable Dina Cobb Attending Unavailable Dina Cobb Attending Unavailable MD Bayron Singh Primary Care Provider Jeff Cordova Attending Provider BAYRON SINGH Attending Unavailable MYRNA CORDOVA Attending Unavailable BAYRON SINGH Referring Unavailable Jeff Cordova Attending Unavailable Jeff Cordova Admitting Unavailable Bayron Singh Primary Care Unavailable [...] Drug Allergy Headache (finding) [facility] (1 source) Acetaminophen / oxyCODONE Drug Allergy 9 [facility] Repository (1 source) Acetaminophen / oxyCODONE; 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: [OXYCODONE-ACETAM INOPHEN] Drug Allergy 3 [facility] Repository Medications Current Medications Medication Drug [...] 4 wks, then 2x a week afterwards., [facility]/pharmacy #[id number], 163, cm, 06/22/22 8:33:00 EDT, Height/Length Dosing, 115, kg, 06/22/22 8:33:00 EDT, Weigh... Start Date: 06/22/22 Status: Ordered fluconazole 150 mg oral tablet (2 sources) Azole Antifungal Start: 12-14-2022 take 1 tablet by mouth once Diflucan 150 mg Tab 150 mg = 1 tab(s), Oral, Once, # 1 tab(s), Refills(s) 0, Pharmacy: [facility]/pharmacy #[id number], 163, cm, 10/26/22 10:27:00 [...] Daily, # 30 tab(s), Refills(s) 11, Pharmacy: [facility]/pharmacy #[id number], 163, cm, 01/04/23 8:04:00 EST, Height/Length Dosing, 115, kg, 01/04/23 8:04:00 EST, Weight Dosing Start Date: 01/04/23 Status: Ordered Start: 10-14-2022 take 1 tablet by justo th once daily Myrbetriq 50 mg oral tablet, extended release 50 mg = 1 tab(s), Oral, Daily, # 30 tab(s), Refills(s) 11, Pharmacy: [facility]/pharmacy #[id number], 163, cm, 10/12/22 8:12:00 [...] Daily, # 90 tab(s), Refills(s) 3, Pharmacy: [facility]/pharmacy #[id number], 163, cm, 05/18/22 10:12:00 EDT, Height/Length Dosing, 115, kg, 05/18/22 10:12:00 EDT, Weight Dosing Start Date: 05/18/22 Status: Ordered Start: 10-13-2021 take 1 tablet by justo th once daily Vesicare 10 mg Tab 10 mg = 1 tab(s), Oral, Daily, # 30 tab(s), Refills(s) 5, Pharmacy: [facility]/pharmacy #[id number], 163, cm, 10/13/21 9:52:00 [...] 1 tablet day of treatment after treatment, [facility]/pharmacy #[id number], 163, cm, 05/18/22 10:12:00 EDT, Height/Length Dosing, 115, kg, 05/18/22 10:12:00 EDT, Weight Dosing Start Date: 05/18/22 Status: Ordered Start: 02-02-2022 Bactrim DS 800 mg-160 mg Tab 1 tab(s), Oral, Daily, 10 tab(s), Refill(s) 0, Prophylaxis for BCG, take day before and day of, [facility]/pharmacy #[id number], 163, cm, 02/02/22 8:04:00 EDT, Height/Length Dosing, 115, kg, 02/02/22 8:04:00 EDT, Weight Dosing Start Date: 02/02/22 Status: Ordered Start: 01-26-2022 Bactrim DS 800 mg-160 mg Tab 1 tab(s), Oral, q12hr, 2 tab(s), Refill(s) 6, [facility]/pharmacy #[id number], 163, cm, 01/26/22 8:21:00 EDT, Height/Length Dosing, 115, kg, 01/26/22 8:21:00 EDT, Weight Dosing Start Date: 01/26/22 Status: Ordered vibegron 75 MG Oral Tablet [Gemtesa] (1 source) Start: 01-05-2023 take 1 tablet by mouth once daily Gemtesa 75 mg oral tablet 75 mg = 1 tab(s), Oral, Daily, # 30 tab(s), Refills(s) 3, Pharmacy: [facility]/pharmacy #[id number], 163, cm, 01/04/23 8:04:00 [...] procedure., # 1 tab(s), Refills(s) 0, Pharmacy: [facility]/pharmacy #[id number], 163, cm, 06/22/22 8:33:00 [...] 26, 2021 12:19pm April 23, 2021 1:56pm Problems Active Problems Problem Classification Problem Date [...] 11-07-2022 Chronic Other aftercare (1 source) Other fdc (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; 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: [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] Onset: 12-25-2022 Episodic Other aftercare (1 source) alf (current) use of aspirin; 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: [HALF-WAY CURRENT USE OF ASPIRIN] Onset: 12-13-2022 Episodic [...] Test Name Value Interpretation Reference Range Facility NON-SUPERVISOR METALIZING CYTOLOGY - CELLULAR EXAMon 04-10-2024 LAB AP CASE REPORT Normal [facility] Comment on above: Order Comment: Via c ysto Result Comment: Non- gynecologic Cytology Case: [id number] Authorizing Provider: Lisa Zelaya MD Collected: 04/10/2024 1544 Ordering Location: [facility] Received: 04/10/2024 154 Urology Pathologist: Adelita Peralta MD Specimen: Bladder washing Performed By: #### L [id number] ####[facility] (BEAKER)[address] [place] [address] LAB AP CLINICAL INFORMATION Order Diagnoses Normal [facility] Comment on above: Order Comment: Via c ysto Result Comment: C67. 4 - Malignant neoplasm of posterior wall of urinary bladder (CMS/HCC) [ICD-10-CM] Performed By: #### L [id number] ####[facility] (BEAKER)[address] [place] [address] LAB AP GROSS DESCRIPTION 6 mL clear, colorless fluid Normal [facility] Comment on above: Order Comment: Via c ysto Performed By: #### L [id number] ####[facility] (BEAKER)[address] [place] [address] LAB AP REPORT FINAL DIAGNOSIS NARRATIVE Normal [facility] Comment on above: Order Comment: Via c ysto Result Comment: A. B ladder washing: - Negative for high grade urothelial carcinoma. Performed By: #### L [id number] ####[facility] (BEAKER)[address] [place] [address] Procedure Visiton 04-10-2024 Procedure Visit [id number] Wali Bejarano 1960 F Date Provider Department Center 04/10/2024 [facility] Family History Problem Relation Age of Onset Hypertension Mother Atrial fibrillation Mother Other Sister Coronary artery disease Brother Hypertension Brother Family Status - Relation Status Age at Mother Sister Brother Level of Service:66127 [place] OFFICE/OUTPATIENT ESTABLISHED LOW MDM 20 MIN Reason for Visit and Comments: Follow-up [563419] [facility] Telephoneon 04-03-2024 Telephone [id number] Wali Bejarano 1960 Provider Department Center 04/03/2024 REEMA CARD [facility] Family History Problem Relation Age of Onset Hypertension Mother Atrial fibrillation Mother Other Sister Coronary artery disease Brother Hypertension Brother Family Status - Relation Status Age at Mother Sister Brother Normal [facility] HISTOLOGY - TISSUE EXAMon LAB AP CASE REPORT Normal [facility] Comment on above: Result Comment: Surg ical Pathology Case: [id number] Authorizing Provider: Jenn Vieira MD Collected: 03/19/2024 1224 Ordering Location: [facility] Received: 03/19/2024 1356 [facility] Pathologist: Mel Mortensen MD Specimens: A) - Large Intestine, Right/Ascending Colon, small ascending cln polyps r/o adenoma B) - Large Intestine, Right/Ascending Colon, large proximal ascending cln polyp EMR r/o adenoma C) - Large Intestine, Right/Ascending Colon, large distal ascending cln EMR polyp r/o adenoma Performed By: #### L [id number] ####[facility] (BEAKER)[address] [place] [address] LAB AP CLINICAL INFORMATION Order Diagnoses Normal [facility] Comment on above: Result Comment: D12. 6 - Adenomatous polyp of colon, unspecified part of colon [ICD-10-CM] Performed By: #### L [id number] ####[facility] (BEAKER)[address] [place] [address] LAB AP GROSS DESCRIPTION Normal [facility] Comment on above: Result Comment: Simon vergara Intestine, Right/Ascending Colon. Received in formalin in a container labeled Daniella A Titirmario, small ascending cln polyps r/o adenoma, is [...] in formalin in a container labeled Daniella A Titirk, large proximal ascending cln polyp EMR r/o [...] Lees, Pathology PGY-2 Performed By: #### L [id number] ####[facility] (BEPropagenix)[address] [place] [address] LAB AP MICROSCOPIC DESCRIPTION Microscopic examination performed. [facility] Comment on above: Performed By: #### L [id number] ####[facility] (BEAKER)[address] [place] [address] LAB AP REPORT FINAL DIAGNOSIS NARRATIVE [facility] Comment on above: Result Comment: A. C olon, ascending polyp, biopsy: - Tubular adenoma B. Colon, large proximal ascending polyp, biopsy: - Tubular adenoma C. Colon, large distal ascending polyp, biopsy: - Tubular adenoma Performed By: #### L [id number] ####[facility] (BEAKER)[address] [place] [address] HPon 03-19-2024 HP --- Attestation signed by Jenn Vieira MD at 03/19/2024 11:44 AM I personally [...] colonoscopy with possible EMR. Colonoscopy at the [facility] on 02/13/2024 revealed 2 subcentimeter polyps in the cecum/ascending colon biopsied with cold snare. Pandiverticulosis. Plan: Colonoscopy with EMR today History Of Present Illness This is a 56-year-old female who recently underwent colonoscopy 3 weeks ago on 02/13/2024 found to have cecal polyps, biopsies were obtained and revealed tubular adenoma. Presenting today for colonoscopy with possible EMR. Colonoscopy at the [facility] on 02/13/2024 revealed 2 subcentimeter polyps in the cecum/ascending colon biopsied with cold snare. Pandiverticulosis. Past Medical History She has a past medical history of Arthritis, Bladder cancer ([facility]/HCC), Breast cancer ([facility]/HCC) (2018), GERD (gastroesophageal reflux disease), History of [...] Bladder surgery; Cardiac catheterization; and Joint replacement (2009/2015). Social History She reports that she quit [...] colonoscopy with possible EMR. Colonoscopy at the [facility] on 02/13/2024 revealed 2 subcentimeter polyps in the cecum/ascending colon biopsied with cold snare. Pandiverticulosis. Plan: Colonoscopy with EMR today Normal [facility] NURSNOTEon 03-19-[address] Vieira is at beds freida updating patient and family Normal [facility] NURSNOTE Grounding patch eduarda pamela skin dry and intact [facility] POCT GLUCOSE METER UNSOLICIT ED RESULTSon 03-19-2024 Glucose [Mass/Vol] 117 mg/dL High 70-105 [facility] Comment on above: Order Comment: Waive d Testing in the ED is performed under the ED CLIA certificate #[id number]. Result Comment: dhol as Performed By: #### L [id number] ####[facility] (BEAKER)[address] [place] [address] Prep for Procedureon 05-14-2 024 Prep for Procedure [id number] Wali Bejarano A 1960 Date Provider Department Center 03/12/2024 JENN HAYNES [facility] Family History Problem Relation Age of Onset Hypertension Mother Atrial fibrillation Mother Other Sister Coronary artery disease Brother Hypertension Brother Family Status - Relation Status Age at Mother Sister Brother Normal [facility] Letter (Out)on 03-06-2024 Letter (Out) [id number] Wali Bejarano A 1960 Date Provider Department Center 03/06/2024 None-None [facility] SCHED [facility] C Family History Problem Relation Age of Onset Hypertension Mother Atrial fibrillation Mother Other Sister Coronary artery disease Brother Hypertension Brother Family Status - Relation Status Age at Mother Sister Brother Normal [facility] Orders Onlyon 03-01-2024 Orders Only [id number] Wali Bejarano A 1960 Provider Department Center 03/01/2024 REEMA CARD [facility] Family History Problem Relation Age of Onset Hypertension Mother Atrial fibrillation Mother Other Sister Coronary artery disease Brother Hypertension Brother Family Status - Relation Status Age at Mother Sister Brother Normal [facility] Garret 02-14-2024 L Specimen: [id number] Received: 02/14/24 Status: LALY Hodges Num: [id number] Spec Type: Surgical Subm Dr: Jeff Cordova Tissues: A Colon Biopsy (CECAL POLYP) Procedures: HE/2, Gross/Micro L4 Age/ Patient Sex Location Account Attending Physician Daniella Bejarano 63/F LABELL [id number] Jeff Cordova SPEC NUM: [id number] RECD: 02/14/24 STATUS: LALY HODGES NUM: [id number] JULIA: 02/14/24 ANTONIO Cordova ENTERED: 02/14/[address] [facility] [address]: SPEC TYPE: Surgical DEPT: ISADORA VIRK ENTERED BY: [id number] RECV BY: [id number] ORDERED: HE/2, Gross/Micro L4 ORDERED: HE/2, Gross/Micro [...] A1. Clinical history: cecal polyp x2, smith-diverticulosis. TW/[place] CPT Codes 76967 Specimen: [id number] Received: 02/14/24 Status: LALY Hodges Num: [id number] Spec Type: Surgical Subm Dr: Jeff Cordova Tissues: A Colon Biopsy (CECAL POLYP) Procedures: CITLALLI/Alli, Gross/Micro L4 Patient: Daniella Bejarano [id number] (Continued) Signed (signature on file) Corey Jeter MD 02/17/24 1901 Normal [facility] Office Visiton 02-09-2024 Follow-up visit [id number] Wali Bejarano 1960 F Date Provider Department Center 02/09/2024 120-OZZY DANIELS CARD [facility] Family History Problem Relation Age of Onset Hypertension Mother Atrial fibrillation Mother Other Sister Coronary artery disease Brother Hypertension Brother Family Status - Relation Status Age at Mother Sister Brother Level of Service:18645 [place] OFFICE/OUTPATIENT ESTABLISHED MOD MDM 30 MIN [facility] 36on 01-17-2024 36 Patient will call me back if she decides she'd like to proceed with PFT's. [facility] 36on 01-16-2024 36 Patient called back to make you aware that her edema is better. She says it's better because she isn't on the cruise anymore and eating so much salt . She said her SOB remains the same, as she's still huffin and puffin . She states I think I'm just fat . Any recommendations? (Besides weight loss and diet lol) [facility] 36 Regarding echo performed on 01/11/2024: ISIDRA Blair MA Her echo looks OK except they couldn't see her RV well- ask her if shortness of breath and edema have improved since taking lasix. LM for patient to return my call. Also let her know her Holter monitor did not show anything concerning (per Jeannette). Normal [facility] NON-SUPERVISOR METALIZING CYTOLOGY - CELLULAR EXAMon 01-10-2024 LAB AP CASE REPORT Normal [facility] Comment on above: Order Comment: Argelia reyes Result Comment: Non- gynecologic Cytology Case: [id number] Authorizing Provider: Lisa Zelaya MD Collected: 01/10/2024 1422 Ordering Location: [facility] Received: 01/10/2024 1422 Urology Pathologist: Yossi Sterling MD Specimen: Bladder washing Performed By: #### L [id number] #### [facility] (BEAKER) [address] [place] [address] LAB AP CLINICAL INFORMATION Order Diagnoses [facility] Comment on above: Order Comment: Via c ysto Result Comment: C67. 4 - Malignant neoplasm of posterior wall of urinary bladder (CMS/HCC) [ICD-10-CM] Performed By: #### L [id number] #### [facility] (BEAKER) [address] [facility] [place] [address] LAB AP GROSS DESCRIPTION [facility] Comment on above: Order Comment: Via c ysto Result Comment: 15 m L clear, colorless fluid. Performed By: #### L [id number] #### [facility] (BEAKER) [address] [place] [address] LAB AP REPORT FINAL DIAGNOSIS NARRATIVE [facility] Comment on above: Order Comment: Via c ysto Result Comment: A. B ladder washing: - Negative for high grade urothelial carcinoma. Performed By: #### L [id number] #### [facility] [address] [place] [address] Procedure Visiton 01-10-2024 Procedure Visit [id number] Wali Bejarano 1960 F Date Provider Department Center 01/10/2024 [facility] Family History Problem Relation Age of Onset Hypertension Mother Atrial fibrillation Mother Other Sister Coronary artery disease Brother Hypertension Brother Family Status - Relation Status Age at Mother Sister Brother Level of Service:23918 [place] OFFICE/OUTPATIENT ESTABLISHED LOW MDM 20 MIN Reason for Visit and Comments: Follow-up [[id number]] [facility] 37on 01-02-2024 37 Increase lasix to 40 mg daily for 2-3 days to remove fluid, then return to 20 mg daily Have blood drawn for mag, electrolytes and renal function [facility] will call you for echocardiogram [facility] Office Visiton 01-02-2024 Follow-up visit [id number] Wali Bejarano 1960 F Date Provider Department Center 01/02/2024 Sadie-JEREMIAHKITTYOZZY CARD [facility] Family History Problem Relation Age of Onset Hypertension Mother Atrial fibrillation Mother Other Sister Coronary artery disease Brother Hypertension Brother Family Status - Relation Status Age at Mother Sister Brother Level of Service:29113 CA OFFICE/OUTPATIENT ESTABLISHED MOD MDM 30 MIN [facility] NON-SUPERVISOR METALIZING CYTOLOGY - CELLULAR EXAMon 10-04-2023 LAB AP CASE REPORT Normal [facility] Comment on above: Order Comment: Via c ysto Result Comment: Non- gynecologic Cytology Case: [id number] Authorizing Provider: Lisa Zelaya MD Collected: 10/04/20231450 Ordering Location: [facility] Received: 10/04/2023 [facility] Urology Pathologist: Yossi Sterling MD Specimen: Bladder washing Performed By: #### L [id number] #### [facility] (BEAKER) [address] [place] [address] LAB AP CLINICAL INFORMATION Order Diagnoses [facility] Comment on above: Order Comment: Via c ysto Result Comment: C67. 4 - Malignant neoplasm of posterior wall of urinary bladder (CMS/HCC) [ICD-10-CM] Performed By: #### L [id number] #### [facility] (BEAKER) [address] [place] [address] LAB AP GROSS DESCRIPTION [facility] Comment on above: Order Comment: Via c ysto Result Comment: 14 m L clear, colorless fluid. Performed By: #### L [id number] #### [facility] (BEAKER) [address] [place] [address] LAB AP REPORT FINAL DIAGNOSIS NARRATIVE Normal [facility] Comment on above: Order Comment: Via c ysto Result Comment: Blad david washing, cytology: Negative for high-grade urothelial carcinoma. Performed By: #### L [id number] #### [facility] (BEAKER) [address] [place] [address] Procedure Visiton 10-04-2023 Procedure Visit [id number] AngeWali mayfield A 1960 Date Provider Department Center 10/04/2023 [facility] Family History Problem Relation Age of Onset Hypertension Mother Family Status - Relation Status Age at Mother Level of Service:53816 [place] OFFICE/OUTPATIENT ESTABLISHED LOW MDM 20 MIN Reason for Visit and Comments: Follow-up [912852] [facility] Letter (Out)on 08-15-2023 Letter (Out) [id number] AamirWali ruby A 1960 Provider Department [place] 08/15/2023 None-None [facility] Family History Problem Relation Age of Onset Hypertension Mother Family Status - Relation Status Age at Mother [facility] Letter (Out)on 08-11-2023 Letter (Out) [id number] AamirWali ruby A 1960 [facility] Provider Department [place] 08/11/2023 None-None [facility] Family History Problem Relation Age of Onset Hypertension Mother Family Status - Relation Status Age at Mother [facility] Letter (Out)on 07-07-2023 Letter (Out) [id number] AamirWali ruby A 1960 [facility] Provider Department Center 07/07/2023 None-None [facility] AUTH [facility] C Family History Problem Relation Age of Onset Hypertension Mother Family Status - Relation Status Age at Mother [facility] Orders Onlyon 06-29-2023 Orders Only [id number] Wali Bejarano A 1960 [facility] Provider Department Center 06/29/2023 Sudhakar-IVAN [facility] Family History Problem Relation Age of Onset Hypertension Mother Family Status - Relation Status Age at Mother Normal [facility] NON-SUPERVISOR METALIZING CYTOLOGY - CELLULAR EXAMon 06-28-2023 LAB AP CASE REPORT Normal [facility] Comment on above: Order Comment: Via c ysto Result Comment: Non- gynecologic Cytology Case: [id number] Authorizing Provider: Lisa Zelaya MD Collected: 06/28/2023 1455 Ordering Location: [facility] Received: 06/28/2023 1455 Urology Pathologist: Yossi Sterling MD Specimen: Bladder washing Performed By: #### L [id number] #### [facility] (BEAKER) [address] [place] [address] LAB AP CLINICAL INFORMATION Order Diagnoses [facility] Comment on above: Order Comment: Via c ysto Result Comment: C67. 4 - Malignant neoplasm of posterior wall of urinary bladder (CMS/HCC) [ICD-10-CM] Performed By: #### L [id number] #### [facility] (BEAKER) [address] [place] [address] LAB AP GROSS DESCRIPTION [facility] Comment on above: Order Comment: Via c ysto Result Comment: 13 m L yellow, cloudy fluid Performed By: #### L AB13 #### [facility] (BEAKER) [address] [place] [address] LAB AP REPORT FINAL DIAGNOSIS NARRATIVE Normal [facility] Comment on above: Order Comment: Via c ysto Result Comment: A. B ladder washing: - Negative for high grade urothelial carcinoma. Performed By: #### L [id number] #### [facility] (BEAKER) [address] [place] [address] Procedure Visiton 06-28-2023 Procedure Visit [id number] Wali Bejarano 1960 Provider Department Center 06/28/2023 [facility] Family History Problem Relation Age of Onset Hypertension Mother Family Status - Relation Status Age at Mother Level of Service:29392 [place] OFFICE/OUTPATIENT ESTABLISHED LOW MDM 20-29 MIN Reason for Visit and Comments: Follow-up [824503] [facility] Operative Reporton 3 Operative Report [id number] D:127 [facility] Clinical Supporton 3 Clinical Support [id number] Wali Bejarano 1960 Date Provider Department Center 06/02/2023 3079-[facility] ONC NURSE DCC ONC DCC Family History Problem Relation Age of Onset Hypertension Mother Family Status - Relation Status Age at Mother [facility] Clinical Supporton Clinical Support [id number] Wali Bejarano ruby A 1960 [facility] 05/26/2023 3079-[facility] NURSE [facility] Family History Problem Relation Age of Onset Hypertension Mother Family Status - Relation Status Age at Mother Reason for Visit and Comments: Procedure [88] - Gutierrez placement #5/6 [facility] Infusionon 05-05-2023 Infusion [id number] Wali Bejarano ruby A 1960 Provider [facility] 05/05/20232-[facility] CHAIR 1 [facility] Family History Problem Relation Age of Onset Hypertension Mother Family Status - Relation Status Age at Mother Reason for Visit and Comments: Intravesicular Chemo [Other] [facility] Infusionon 04-28-2023 Infusion [id number] Wali Bejarano ruby A 1960 Provider Department Center 04/28/20233-[facility] 2 [facility] No family history on file [facility] Outside Oncologyon 3 Outside Oncology [id number]#1.00 CD:127 [facility] Consent for Treatmenton 03-31 Consent for Treatment [id number]#1.00C D:127 [facility] Oncology Noteon 04-26-2023 Oncology Note Oncology Behavioral Health Care Manager Office Visit/Treatment Note Current Patient Status/Reason: Pt in for scheduled clinic visit. I accompanied Dr. Booth in room. Pt is following with urologist for bladder cancer with [facility] and is getting treatment at [place], with a physician there. Treatment Plan: none at this time, pt getting mammogram on left by PCP. Follow-Up Appointment Info/Referrals: F/U in 1 year. Resources Offered: Pt voiced no questions or concerns to me when I asked. Instructed pt to call with questions, concerns. [facility] Comment on above: Result Comment: Elec [...] 1 with ductal and lobular features, ER>95%, CA >95%, Her2 neg. Dr. Ward performed R [...] She referred to Dr. Lisa Zelaya at [facility] who repeated the biopsy [...] Problems Abnormal urinary stream / SNOMED CT 595677178 / Confirmed Vaginal atrophy / SNOMED CT 126859246 / Confirmed BMI 40.0-44.9, adult / SNOMED CT 4916373011 / Confirmed Former smoker / SNOMED CT 50846379 / Confirmed History of UTI / SNOMED CT 9850842723 / Confirmed Mixed incontinence / SNOMED CT 10029358 / Confirmed Enterococcus faecalis infection / SNOMED CT 9904893791 / Confirmed Urothelial carcinoma of bladder / SNOMED CT 851764805 / Confirmed Bladder cancer / SNOMED CT 618646170 / Confirmed OAB (overactive bladder) / SNOMED CT 6717380233 / Confirmed Urinary tract infection / SNOMED CT 157255580 / Confirmed Canceled: Bladder cancer / SNOMED CT 7594646485 Canceled: Microhematuria / SNOMED CT 976062020 Histories Past Medical History: No active or resolved past medical history items have been selected or recorded. Family History: Hypertension Father Mother Brother Anemia Father Arthritis Father Mother Prostate cancer Brother Procedure history: Cystoscopy and biopsy of bladder ([id number]) on 03/13/2023 at 62 Years. Comments: 03/16/2023 12:36 Roxana Fernando BLUE LIGHT CYSTOSCOPY Cystoscopy and transurethral resection of bladder tumor ([id number]) on 12/28/2022 at 62 Years. Comments: 01/04/2023 13:04 Roxana Garrison random bladder biopsies, BL ureteral washing Cystoscopy ([id number]) on 12/07/2022 at 62 Years. Cystoscopy and transurethral resection of bladder tumor ([id number]) on 12/22/2021 at 61 Years. TURBT - Transurethral resection of bladder tumor ([id number]) on 07/26/2021 at 61 Years. Cystoscope ([id number]) on 07/14/2021 at 61 Years. Breast surgery (9820751881). History of hysterectomy. (3565357451). Cholecystectomy (21153177). Ts - Tonsillectomy (473449160). 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 Social History Social & Psychosocial Habits Alcohol 07/07/2021 Risk Assessm (more content not included)... [facility] Patient Letter FTon [address] [facility] (Inserted Image. Lindsay ble to display) March 21, 2023 DANIELLA BEJARANO [address] [place] [address] : 1960 To whom it may concern, This patient is currently under the care of Dr. Dina Cobb MD at [facility]. We are requesting any and all information regarding her recent surgery she had performed at [facility]. Surgery reports, and any pathology/imaging reports are highly requested to be sent to our office for our records. Please fax any relevant information to our office at [phone]. If you have any questions please feel free to call our office at [phone]. Thank you [facility] [address] [place], [place] [address] [address] [facility] Pathology Noteon 03-18-2023 Pathology Note [id number]#1.00C D:127 [facility] Reminderson 03-18-2023 Reminders - From: Roxana Lindsey To: [facility] - Recalls Reza; Sent: 01/05/2023 15:34:58 EST Show up: 01/05/2023 15:35:00 EST Subject: appt with Dr Booth Due Date/Time: 01/28/2023 15:35:00 EDT Reminder/Recall Patient will need seen by Dr Booth after blue light cystoscopy is completed at [facility] with Dr Zelaya appt [...] another message in about this. CRISTÓBAL Normal [facility] Outside Labson 03-10-2023 Outside Labs [id number]#1.00 CD:127 [facility] Outside Pathology Reporton 0 03-10-2023 Outside Pathology Report [id number]#1.00 CD:127 [facility] Outside Radiologyon 03-10-20 Outside Radiology [id number]#1.00 CD:127 [facility] Consultation Noteon 03-09-20 Consultation Note [id number]#1.00C D:127 [facility] Pathology Noteon 03-09-2023 Pathology Note [id number]#1.00C D:127 [facility] CBC AUTO DIFFon 03-06-2023 BASO # 0.1 103/ul Normal 0.0-0.1 [facility] Comment on above: Performed By: #### C YTO #### [facility] [address] [address] [address] Troy Jeter Basophils/100 WBC (Bld) 1.1 % Normal 0.2-2.0 [facility] Comment on above: Performed By: #### C YTO #### [facility] [address] [place] [address] Dr. Troy Jeter EO # 0.2 103/ul Normal 0.0-0.7 [facility] Comment on above: Performed By: #### C YTO #### [facility] [address] [place] [address] Dr. Troy Jeter Eosinophils/100 WBC (Bld) 2.8 % Normal 0.9-7.0 [facility] Comment on above: Performed By: #### C YTO #### [facility] [address] [place] [address] Dr. Troy Jeter Erythrocyte distribution width (RBC) [Ratio] 15.1 % Critically high 11.0-15.0 [facility] Comment on above: Performed By: #### C YTO #### [facility] [address] [place] [address] Dr. Troy Jeter Hematocrit (Bld) [Volume fraction] 39.7 % Normal 36.0-48.0 [facility] Comment on above: Performed By: #### C YTO #### [facility] [address] [place] [address] Dr. Troy Jeter Hemoglobin (Bld) [Mass/Vol] 12.3 g/dL Normal 12.0-16.0 [facility] Comment on above: Performed By: #### C YTO #### [facility] [address] [address] [address] Troy Jeter IG # 0.02 10e3/ul Normal 0.00-0.03 [facility] Comment on above: Performed By: #### C YTO #### [facility] [address] [place] [address] Dr. Troy Jeter IG % 0.4 % Normal 0.0-0.5 [facility] Comment on above: Performed By: #### C YTO #### [facility] [address] [place] [address] Dr. Troy Jeter LYMPH # 1.3 103/ul Normal 1.2-3.8 [facility] Comment on above: Performed By: #### C YTO #### [facility] [address] [place] [address] Dr. Troy Jeter Lymphocytes/100 WBC (Bld) 22.0 % Normal 20.5-60.0 [facility] Comment on above: Performed By: #### C YTO #### [facility] [address] [place] [address] Dr. Troy Jeter MANUAL DIFF REQ NO Normal [facility] Comment on above: Performed By: #### C YTO #### [facility] [address] [place] [address] Dr. Troy Jeter MCH (RBC) [Entitic mass] 25.5 pg Critically low 26.7-34.0 [facility] Comment on above: Performed By: #### C YTO #### [facility] [address] [place] [address] Dr. Troy Jeter MCHC (RBC) [Mass/Vol] 31.0 g/dL Normal 29.9-35.2 [facility] Comment on above: Performed By: #### C YTO #### [facility] [address] [place] [address] Dr. Troy Jeter MCV (RBC) [Entitic vol] 82.2 fL Normal 81.0-99.0 [facility] Comment on above: Performed By: #### C YTO #### [facility] [address] [place] [address] Dr. Troy Jeter MONO # 0.5 103/ul Normal 0.3-0.8 [facility] Comment on above: Performed By: #### C YTO #### [facility] [address] [place] [address] Dr. Troy Jeter Monocytes/100 WBC (Bld) 8.6 % Normal 1.7-12.0 [facility] Comment on above: Performed By: #### C YTO #### [facility] [address] [place] [address] Dr. Troy Jeter NEUT # 3.7 103/ul Normal 1.4-6.5 [facility] Comment on above: Performed By: #### C YTO #### [facility] [address] [place] [address] Dr. Troy Jeter Neutrophils/100 WBC (Bld) 65.1 % Normal 43.0-75.0 [facility] Comment on above: Performed By: #### C YTO #### [facility] [address] [place] [address] Dr. Troy Jeter Platelet mean volume (Bld) [Entitic vol] 9.0 fL Critically low 9.5-13.5 [facility] Comment on above: Performed By: #### C YTO #### [facility] [address] [place] [address] Dr. Troy Jeter PLT 211 103/ul Normal 150-[address] [facility] Comment on above: Performed By: #### C YTO #### [facility] [address] [place] [address] Dr. Troy Jeter RBC 4.83 106/ul Normal 4.20-5.[address] [facility] Comment on above: Performed By: #### C YTO #### [facility] [address] [place] [address] Dr. Troy Jeter WBC 5.7 103/ul Normal 4.0-11.[address] [facility] Comment on above: Performed By: #### C YTO #### [facility] [address] [place] [address] Dr. Troy Jeter PROF 14(COMP METB)on 023 Albumin [Mass/Vol] 3.4 g/dL Normal 3.4-5.[address] [facility] Comment on above: Performed By: #### C BC #### [facility] [address] [place] [address] Dr. Troy Jeter Albumin/Globulin [Mass ratio] 0.9 {ratio} Normal [facility] Comment on above: Performed By: #### C BC #### [facility] [address] [place] [address] Dr. Troy Jeter ALP [Catalytic activity/Vol] 94 U/L Normal 46-116 [facility] Comment on above: Performed By: #### C BC #### [facility] [address] [place] [address] Dr. Troy Jeter ALT [Catalytic activity/Vol] 61 U/L Critically high 14-59 [facility] Comment on above: Performed By: #### C BC #### [facility] [address] [place] [address] Dr. Troy Jeter Anion gap [Moles/Vol] 11.6 mmol/L Normal [facility] Comment on above: Performed By: #### C BC #### [facility] [address] [place] [address] Dr. Troy Jeter AST [Catalytic activity/Vol] 48 U/L Critically high 15-37 [facility] Comment on above: Performed By: #### C BC #### [facility] [address] [place] [address] Dr. Troy Jeter Bilirubin [Mass/Vol] 0.3 mg/dL Normal 0.2-1.0 [facility] Comment on above: Performed By: #### C BC #### [facility] [address] [place] [address] Dr. Troy Jeter Calcium [Mass/Vol] 9.3 mg/dL Normal 8.5-10.1 [facility] Comment on above: Performed By: #### C BC #### [facility] [address] [address] [address] Troy Jeter Chloride [Moles/Vol] 106 mmol/L Normal 98-[address] [facility] Comment on above: Performed By: #### C BC #### [facility] [address] [place] [address] Dr. Troy Jeter CO2 [Moles/Vol] 25.4 mmol/L Normal 21.0-32.[address] [facility] Comment on above: Performed By: #### C BC #### [facility] [address] [place] [address] Dr. Troy Jeter Creatinine [Mass/Vol] 1.06 mg/dL Critically high 0.55-1.02 [facility] Comment on above: Performed By: #### C BC #### [facility] [address] [place] [address] Dr. Troy Jeter EGFR-AF ANDORRAN >60 Normal >=60 [facility] Comment on above: Performed By: #### C BC #### [facility] [address] [place] [address] Dr. Troy Jeter EGFR-NON AF ANDORRAN 52 mL/min/1.73m2 Critically low >=60 [facility] Comment on above: Performed By: #### C BC #### [facility] [address] [place] [address] Dr. Troy Jeter Globulin (S) [Mass/Vol] 4.0 g/dL Normal [facility] Comment on above: Performed By: #### C BC #### [facility] [address] [place] [address] Dr. Troy Jeter Glucose [Mass/Vol] 132 mg/dL Critically high 74-106 [facility] Comment on above: Performed By: #### C BC #### [facility] [address] [place] [address] Dr. Troy Jeter Potassium [Moles/Vol] 4.0 mmol/L Normal 3.5-5.[address] [facility] Comment on above: Performed By: #### C BC #### [facility] [address] [place] [address] Dr. Troy Jeter Protein [Mass/Vol] 7.4 g/dL Normal 6.4-8.[address] [facility] Comment on above: Performed By: #### C BC #### [facility] [address] [place] [address] Dr. Troy Jeter Sodium [Moles/Vol] 139 mmol/L Normal 136-[address] [facility] Comment on above: Performed By: #### C BC #### [facility] [address] [place] [address] Dr. Troy Jeter Urea nitrogen [Mass/Vol] 16.0 mg/dL Normal 7.0-18.0 [facility] Comment on above: Performed By: #### C BC #### [facility] [address] [place] [address] Dr. Troy Jeter Urea nitrogen/Creatinine [Mass ratio] 15.1 mg/mg Normal [facility] Comment on above: Performed By: #### C BC #### [facility] [address] [place] [address] Dr. Troy Jeter CBC AUTO DIFFon 03-02-2023 BASO # 0.1 103/ul Normal 0.0-0.1 [facility] Comment on above: Performed By: #### C YTO #### [facility] [address] [place] [address] Dr. Troy Jeter Basophils/100 WBC (Bld) 0.9 % Normal 0.2-2.0 [facility] Comment on above: Performed By: #### C YTO #### [facility] [address] [place] [address] Dr. Troy Jeter EO # 0.2 103/ul Normal 0.0-0.7 [facility] Comment on above: Performed By: #### C YTO #### [facility] [address] [place] [address] Dr. Troy Jeter Eosinophils/100 WBC (Bld) 2.9 % Normal 0.9-7.0 [facility] Comment on above: Performed By: #### C YTO #### [facility] [address] [place] [address] Dr. Troy Jeter Erythrocyte distribution width (RBC) [Ratio] 15.3 % Critically high 11.0-15.0 [facility] Comment on above: Performed By: #### C YTO #### [facility] [address] [place] [address] Dr. Troy Jeter Hematocrit (Bld) [Volume fraction] 36.8 % Normal 36.0-48.0 [facility] Comment on above: Performed By: #### C YTO #### [facility] [address] [place] [address] Dr. Troy Jeter Hemoglobin (Bld) [Mass/Vol] 11.5 g/dL Critically low 12.0-16.0 [facility] Comment on above: Performed By: #### C YTO #### [facility] [address] [place] [address] Dr. Troy Jeter IG # 0.02 10e3/ul Normal 0.00-0.03 [facility] Comment on above: Performed By: #### C YTO #### [facility] [address] [place] [address] Dr. Troy Jeter IG % 0.3 % Normal 0.0-0.5 [facility] Comment on above: Performed By: #### C YTO #### [facility] [address] [place] [address] Dr. Troy Jeter LYMPH # 1.5 103/ul Normal 1.2-3.8 [facility] Comment on above: Performed By: #### C YTO #### [facility] [address] [place] [address] Dr. Troy Jeter Lymphocytes/100 WBC (Bld) 24.8 % Normal 20.5-60.0 [facility] Comment on above: Performed By: #### C YTO #### [facility] [address] [place] [address] Dr. Troy Jeter MANUAL DIFF REQ NO Normal [facility] Comment on above: Performed By: #### C YTO #### [facility] [address] [place] [address] Dr. Troy Jeter MCH (RBC) [Entitic mass] 25.4 pg Critically low 26.7-34.[address] [facility] Comment on above: Performed By: #### C YTO #### [facility] [address] [place] [address] Dr. Troy Jeter MCHC (RBC) [Mass/Vol] 31.3 g/dL Normal 29.9-35.[address] [facility] Comment on above: Performed By: #### C YTO #### [facility] [address] [place] [address] Dr. Troy Jeter MCV (RBC) [Entitic vol] 81.4 fL Normal 81.0-99.[address] [facility] Comment on above: Performed By: #### C YTO #### [facility] [address] [place] [address] Dr. Troy Jeter MONO # 0.5 103/ul Normal 0.3-0.8 [facility] Comment on above: Performed By: #### C YTO #### [facility] [address] [place] [address] Dr. Troy Jeter Monocytes/100 WBC (Bld) 8.4 % Normal 1.7-12.[address] [facility] Comment on above: Performed By: #### C YTO #### [facility] [address] [place] [address] Dr. Troy Jeter NEUT # 3.7 103/ul Normal 1.4-6.[address] [facility] Comment on above: Performed By: #### C YTO #### [facility] [address] [place] [address] Dr. Troy Jeter Neutrophils/100 WBC (Bld) 62.7 % Normal 43.0-75.[address] [facility] Comment on above: Performed By: #### C YTO #### [facility] [address] [place] [address] Dr. Troy Jeter Platelet mean volume (Bld) [Entitic vol] 9.2 fL Critically low 9.5-13.[address] [facility] Comment on above: Performed By: #### C YTO #### [facility] [address] [address] [address] Troy Jeter PLT 193 103/ul Normal 150-[address] [facility] Comment on above: Performed By: #### C YTO #### [facility] [address] [address] [address] Troy Jeter RBC 4.52 106/ul Normal 4.20-5.40 [facility] Comment on above: Performed By: #### C YTO #### [facility] [address] [address] [address] Troy Jeter WBC 5.9 103/ul Normal 4.0-11.0 [facility] Comment on above: Performed By: #### C YTO #### [facility] [address] [place] [address] Dr. Troy Jeter GLYCOHEMOGLOBIN A1Con 2022 ADA RECOMMENDATION SEE BELOW Normal [facility] Comment on above: Result Comment: ADA RECOMMENDED LIMIT 4.0 - 6.0 ADA THERAPEUTIC TARGET < 7.0 ACTION SUGGESTED > 7.0 Performed By: #### C BC #### [facility] [address] [place] [address] Dr. Troy Jeter Glucose [Mass/Vol] 123 mg/dL Normal [facility] Comment on above: Performed By: #### C BC #### [facility] [address] [place] [address] Dr. Troy Jeter HbA1c (Bld) [Mass fraction] 5.9 % Normal 4.5-6.2 [facility] Comment on above: Performed By: #### C BC #### [facility] [address] [place] [address] Dr. Troy Jeter LIPID PROFILEon 03-02-2023 CHOL-HDL RATIO NORM SEE BELOW Normal [facility] Comment on above: Result Comment: 3.3 - 4.4 LOW RISK 4.4 - 7.1 AVERAGE RISK 7.1 - 11.0 MODERATE RISK >11.0 HIGH RISK Performed By: #### C YTO #### [facility] [address] [place] [address] Dr. Troy Jeter Cholesterol [Mass/Vol] 156 mg/dL Normal <=200 [facility] Comment on above: Performed By: #### C YTO #### [facility] [address] [address] [address] Troy Jeter Cholesterol in HDL [Mass/Vol] 64 mg/dL Critically high 40-60 [facility] Comment on above: Performed By: #### C YTO #### [facility] [address] [address] [address] Troy Jeter Cholesterol in LDL [Mass/Vol] 76.4 mg/dL Normal [facility] Comment on above: Performed By: #### C YTO #### [facility] [address] [address] [address] rToy Jeter Cholesterol.total/Ch olesterol in HDL [Mass ratio] 2.4 {ratio} Normal [facility] Comment on above: Performed By: #### C YTO #### [facility] [address] [place] [address] Dr. Troy Jeter HDL NORMAL > or = 60 mg/dl - LO W CARDIOVASCULAR RISK <40 mg/dl - HIGH CARDIOVASCULAR RISK Normal [facility] Comment on above: Performed By: #### C YTO #### [facility] [address] [place] [address] Dr. Troy Jeter LDL CALC NORMAL SEE BELOW Normal [facility] Comment on above: Result Comment: <100 mg/dl OPTIMAL 100 - 129 mg/dl NEAR OR ABOVE OPTIMAL 130 - 159 mg/dl BORDERLINE HIGH 160 - 189 mg/dl HIGH >190 mg/dl VERY HIGH Performed By: #### C YTO #### [facility] [address] [place] [address] Dr. Troy Jeter Triglyceride [Mass/Vol] 78 mg/dL Normal <=[address] [facility] Comment on above: Performed By: #### C YTO #### [facility] [address] [place] [address] Dr. Troy Jeter VLDL CALC 15.6 mg/dL Normal [facility] Comment on above: Performed By: #### C YTO #### [facility] [address] [address] [address] Troy Jeter PROF 14(COMP METB)on 023 Albumin [Mass/Vol] 3.2 g/dL Critically low 3.4-5.0 Th [facility] Comment on above: Performed By: #### C YTO #### [facility] [address] [place] [address] Dr. Troy Jeter Albumin/Globulin [Mass ratio] 0.8 {ratio} Normal [facility] Comment on above: Performed By: #### C YTO #### [facility] [address] [place] [address] Dr. Troy Jeter ALP [Catalytic activity/Vol] 90 U/L Normal 46-116 [facility] Comment on above: Performed By: #### C YTO #### [facility] [address] [place] [address] Dr. Troy Jeter ALT [Catalytic activity/Vol] 58 U/L Normal 14-59 [facility] Comment on above: Performed By: #### C YTO #### [facility] [address] [place] [address] Dr. Troy Jeter Anion gap [Moles/Vol] 10.5 mmol/L Normal [facility] Comment on above: Performed By: #### C YTO #### [facility] [address] [place] [address] Dr. Troy Jeter AST [Catalytic activity/Vol] 40 U/L Critically high 15-37 [facility] Comment on above: Performed By: #### C YTO #### [facility] [address] [address] [address] Troy Jeter Bilirubin [Mass/Vol] 0.3 mg/dL Normal 0.2-1.0 [facility] Comment on above: Performed By: #### C YTO #### [facility] [address] [place] [address] Dr. Troy Jeter Calcium [Mass/Vol] 9.1 mg/dL Normal 8.5-10.[address] [facility] Comment on above: Performed By: #### C YTO #### [facility] [address] [place] [address] Dr. Troy Jeter Chloride [Moles/Vol] 106 mmol/L Normal 98-107 [facility] Comment on above: Performed By: #### C YTO #### [facility] [address] [address] [address] Troy Jeter CO2 [Moles/Vol] 27.6 mmol/L Normal 21.0-32.0 [facility] Comment on above: Performed By: #### C YTO #### [facility] [address] [address] [address] Troy Jeter Creatinine [Mass/Vol] 1.01 mg/dL Normal 0.55-1.02 [facility] Comment on above: Performed By: #### C YTO #### [facility] [address] [place] [address] Dr. Troy Jeter EGFR-AF ANDORRAN >60 Normal >=60 [facility] Comment on above: Performed By: #### C YTO #### [facility] [address] [place] [address] Dr. Troy Jeter EGFR-NON AF ANDORRAN 55 mL/min/1.73m2 Critically low >=60 [facility] Comment on above: Performed By: #### C YTO #### [facility] [address] [place] [address] Dr. Troy Jeter Globulin (S) [Mass/Vol] 3.9 g/dL Normal [facility] Comment on above: Performed By: #### C YTO #### [facility] [address] [place] [address] Dr. Troy Jeter Glucose [Mass/Vol] 112 mg/dL Critically high 74-106 [facility] Comment on above: Performed By: #### C YTO #### [facility] [address] [place] [address] Dr. Troy Jeter Potassium [Moles/Vol] 4.1 mmol/L Normal 3.5-5.1 [facility] Comment on above: Performed By: #### C YTO #### [facility] [address] [place] [address] Dr. Troy Jeter Protein [Mass/Vol] 7.1 g/dL Normal 6.4-8.[address] [facility] Comment on above: Performed By: #### C YTO #### [facility] [address] [address] [address] Troy Jeter Sodium [Moles/Vol] 140 mmol/L Normal 136-[address] [facility] Comment on above: Performed By: #### C YTO #### [facility] [address] [address] [address] Troy Jeter Urea nitrogen [Mass/Vol] 14.0 mg/dL Normal 7.0-18.0 [facility] Comment on above: Performed By: #### C YTO #### [facility] [address] [address] [address] Troy Jeter Urea nitrogen/Creatinine [Mass ratio] 13.9 mg/mg Normal [facility] Comment on above: Performed By: #### C YTO #### [facility] [address] [address] [address] Troy Jeter TSHon 03-02-2023 TSH 3.047 uIU/mL Normal 0.358-3.740 [facility] Comment on above: Performed By: #### C YTO #### [facility] [address] [place] [address] Dr. Troy Jeter Retail - Clinical Noteon Retail - Clinical Note [id number]#1.00C D:127 [facility] Ambulatory Visit Summaryon 0 01-04-2023 Ambulatory Visit Summary FRED BEJARANOCitlali Perez :1960 Visit Date:01/04/2023 Ambulatory Visit Instructions Your [...] bladder f (more content not included)... Normal [facility] Patient Educationon 01-05-20 Patient Education Oncology [...] Follow these instructions at home: ? Take shbf-eja-fjxdxqs and prescription medicines only as told by [...] important. Where to find more information ? [place] [employer]: www.cancer.org ? [employer] (NCI): www.cancer.gov Contact a health care provider [...] 10/18/2004 Document Revised: 09/28/2018 Document Reviewed: 09/19/2017 [employer] Patient Education ? 2019 [employer]. [facility] Urology Office/Clinic Noteon 01-04-2023 Urology Office/Clinic [...] see if Blue Light Cystoscopy available at [facility] for TURBT to further evaluate and resect possible CIS. -Our office w/ consult with Dr. Booth regarding treatment in setting of suspected malignancy. 2. OAB (overactive bladder) (N32.81: Overactive bladder) Continues taking VESIcare 10mg daily. Improvement but still with sx Patient has new insurance and will attempt to get Myrbetriq covered. Has dianne (more content not included)... [facility] Comment on above: Result Comment: Elec tronically Signed By: Dina Cobb MD\.br\Date and Time Signed: 01/04/23 12:20 EST\.br\Electronically Co-Signed By: Pratibha Rodriguez\.br\Date and Time Co-Signed: 01/04/23 09:08 EST\.br\Electronically Co-Signed By: Pratibha Rodriguez\.br\Date and Time Co-Signed: 01/04/23 09:18 EST [facility] 01-03-2023 Lab Reports [id number]#1.00C D:127 [facility] Pathology Noteon 01-03-2023 Pathology Note [id number]#1.00CD :127 Normal [facility] Pathology Note [id number]#1.00C D:127 [facility] Operative Reporton Operative Report [id number]#1.00C D:127 [facility] Formson 12-29-2022 Forms [id number]#1.00C D:127 [facility] CYTOLOGYon 12-28-2022 SENT TO REF LAB 12/28/2022 [facility] Comment on above: Performed By: #### C YTO #### [facility] [address] [place] [address] Dr. Troy Jeter SENT TO REF LAB 12/28/2022 [facility] Comment on above: Performed By: #### C YTO #### [facility] [address] [place] [address] Dr. Troy Jeter Pre-Certification Formon Pre-Certification Form [id number]#1.0 0CD:127 [facility] PROTIMEon 12-21-2022 INR Coag (PPP) [Relative time] 1.00 {INR} Normal [facility] Comment on above: Performed By: #### C YTO #### [facility] [address] [place] [address] Dr. Troy Jeter INR GUIDELINES SEE BELOW Normal [facility] Comment on above: Result Comment: LORENA RED INR: 2.0 - 3.0 CONDITIONS NOT LISTED BELOW 2.5 - 3.5 FOR PROSTHETIC HEART VALVE REPLACEMENT 2.5 - 3.5 RECURRENT THROMBOSIS Performed By: #### C YTO #### [facility] [address] [place] [address] Dr. Troy Jeter PT Coag (PPP) [Time] 10.6 s Normal 9.0-11.6 [facility] Comment on above: Performed By: #### C YTO #### [facility] [address] [place] [address] Dr. Troy Jeter PTTon 12-21-2022 aPTT Coag (Bld) [Time] 26.9 s Normal 22.3-36.2 [facility] Comment on above: Performed By: #### C YTO #### [facility] [address] [place] [address] Dr. Troy Jeter Coding Summary.on 12-17-2022 Coding Summary. CD:[id number] Gh0 bWw+PGhlYWQ+MI2ASCCoT17 nlAEstN9IC2dCXY7AMJXTMK PORO4IMU9qiAR5SZtgX9Szm iAv GubnqQNrLF57ONx5XKF9uNw mDLktpH3gyIBzI6n1HdEhRD 68iO47NKqvPNEbFrI4CrYco jsgbWFy G5ivEuGxtYLfPbo+PHRhYmx lIHdpZHRoPScxMDAlJyBzdH zrAW6uFm2aGAYsETEdfPgjl HNlOiBj i1gsUTZoQXjdZA4pxWqoZ7T bhGX8POTzj4p3Vq75iEF+PH VsPAX2gEqmBSitn700TuJwt 8zsTXJ3 cLBnUNsoVSJ0W52qh7P8GIF hQRPpYPX0iDX7eG4qwDceuo zrG4HrqCRdJgP0PFX8zJNet S9kxFqx hzggdG3mSjv+E44VIN0IKDV WGX6MLwb5Q4UgZxapcSE+PC 72WVJwCV05lCCeiDKja9lcd Iw8JvTv MRJkQAT1bLjsZRmte2SvIXZ jK59faPHtm8P2SYAwbQmltV XzXxCecRV4oM6bNUetdovnt 2hvdzsn Ogmad9smvy08yR41H43zFOw mPWGjMJL9KKSzJVZoiXywgq 9icR2fCb0+ZGwcy8kaq5uvd Wg9NgZf DDJflcDcpFvwSTG2s2TmQp6 9F4MgiLoua0FuVrd0tn26hM Pbn1L9mKS7PIajWGGvqL6pA WxlZnQ6 LPMiAzJxaP76iKJxTZgqBe8 eeOhnxDesLY7yKSItxtvtOL XsuH6xQZRkfGHpgVeeLR3cX TBpbjtm q128GhKtQLH4MPQcqGHxX0P arA4xYwPcRBRmGGHsF0OfhV KtMNjnT250IZvnPeY4QSDmg xCmX2Lo UGYddWasMqE7f4C1Lx8Vt3F nhxduBFR7GThpOWTuCcO2Ww EyAuJ9V6ChZqi6KEFtyGfnB A7jL1Oq IQYwmjudqjzsvWM9NSHaVTN neW71jFZeSGxzHv7gl2A0k1 09MTCcVLIurF77Ys3bcTyeK TBwdCBU bU9szlqsc2zqxpgiJkMqUDL qBXk7PZn0LDFaoOjhStStRB F1CmH3HYQ1mCSvjI1llEtet gijvS7b Oyc+Q22mrU3zFCC8CNG2yzq vCCAugvLlKC63DH75Y4JqRx wvdGFibGU+PGRpdiBzdHlsZ X3rZyTz n5ytf4QhEVsrL1QmNJByKSr bLuj3HXFhFXO1mKV3fZ9pOT EzRQojx2P3kCY7O6CvfjWfr f5yd6se GIDlJMdwM31csSMbp1S8SXR tsXT9GFDzbPphWcRnoB18Ba c+KOXotItwj5JxOurvm8drl 5nbiTj5 GvBtONJxgwLpmNyuERH0t0Y xPv63O54qQGeoTPSxSSAwPO AdOZVhuQtbfu4mjU0pIx5+P GNvbCB3 oHB4cL9bWEFoZwC2TYhcY92 6DcUdkZTcIoihz8skj9uvrS l8BxRcBUWbnsOebRqxMGI9r 4HySb04 J24vTXdwIKJgZSTzYXOlTKK qvTiews5mfT8fQk1+PC9jb2 plbl14rE95vUO+UHEtYJI7x WxlPSdw GYYzeO8mQQdcYzU3JAJaJnD jiB89tAVlPRlrCg7xhYnclY ohVE5wCPHuyhshx758HfBeu 2xkIDEw nREhHRhoVNC5D62kr3V1CPF rQHEjAJR7lBE2oE6ltResni ogbGVmdDsgdmVydGljYWwtY MqfK847 IHRvcDsnPlBhdGllbnQgTmF yPZu4L0FsGfb1SOAvvGbwMS 0slJYxHXvjDx6acYxyrElhH J3aICAi mlbro037CrYfo1jbRODpqJB eSYhbLCJ2D16je3L2WEXzGG EfMCU7cVC7xT8tsZhsybyje GVmdDsg exAowMzeYJchFEvoK988WTC xyPyrFtUmmlFhWYYfpEO0DF 05VI40tVLnk8C6zMY7G8MaT GRpbmct fuoeuJF1BPLqIGPoaE71Pd3 ypGwbPf6fXMQrEDG7NSWonV JcH0CtmO5kMyZlMSMvTBDlU 3RleHQt UOvfW445RCflNrG6OQTghjM nR2VpWHSuwMncTyF6n3B7Wr 2VY3P2WM95EP71tPYub2G3n DJ9W2Am IKPkssuyqjomfWH9YAAfQZP ayF35Lu6sfAfnQa8hCDXkSV P8SGGvtDCuC9GpmJ9cEwIlJ DAwMDAw V7IsyZGcPUjqF629FZsaLzF 1MVGofbRwJ3XtAQIrvUchLw U7i7X7Ec0EPOl9JO51VV39v LMke8R1 qJV1K8ScGSTuhbxjhejvgTQ 0RYLoADFrrZ86Jv6xbQijEz 7nYHRtWPE4NJUxzRZgJ1Flf J9xYgPr OZAnQVEwK8MjyDHaPPswV56 5LBywTkY5QPZttjDbS5FbZX LrtVogWvE4f0M1Ve6EGBVrW S92OZG8 eHW1SZ63CL12S3DbQhstnUQ ibGU+PHRhYmxlIHdpZHRoPS poOTJjKoXxjNqdNZ4jDi3sK GVyLWNv hCdftMAhKwUrn2qoFFTeOYa wTV1okXcmJ0QziEL9IZAps8 s8Qf13U29bO8BmxXH+PGNvb JM3qHH1 eA3tZnUbUfW4THjaM803JnA xhBZfGdgei1pxc9gbtSj5Lo X9BXKdkhSkkMrwTHS1f1WzE o07G08u IHdpZHRoPSIxNSUiIHZhbGl baj4hmU7wAz1+QDZxmSV4lZ S3zM0tGqUuRjQ0CCtzJ179H nRvcCIv Ratrv0wqc8hkoIv0VhWkPVD mmeRqgMnaEAQ4s6AvGv61N6 OtrXsne9JwWrc6xs64qURsj 4A1gKO2 U8BgPTGchbkwiENjmQytJU7 hWILvohgcRFMlhM0yTTJaW9 j0GsKvDkZ9DEvpA6WbmuS9T DEwcHQg OKqoUCR8J96nu7I4SWItVCJ zOFC1qZT3uG5kfElanshbgA VmdDsgdmVydGljYWwtYWxpZ 246IHRv dTxkDWCauF7qPZJysSAuwTm aUW3jDKSvkdmaUg5TQRjKGs unOKZHCixLMuMXUA27RI35u XDuh7B4 eVW3W8ZfDFGequfijcdfmAP 7RQIvKPOtuU99aRUpIWfeJc 3mb6K4t475REXcYKTmaT33Q g0jfUkw FWLxqWKNoQ7cdxcqj5imatt wGkYmKMVbFEa4RPb9XFQfvI bkBsNnSBP9JqP2NLV8aBKwk P1adFfy gdojbM2cFhg+MDgvMjIvMTk 1ODwvdGQ+GMYvSAM8gEqgWD vfNDUfmG2zICLlH3b5MkCzM hK6LJux Q2NuBENvoqvrKm89bT4sPzR gYvN1AOcsB8MxwbY8JNGybU WaUCpzUGK5M67af3U0PQXxC DAwMDA7 cCM3hH2wxHogpcqnqBDurFw qfgGzwTnkSBveJFstU530JP GbdObkDpT0RGzdKYFuPK23S B62fHFz u5F9qXL1Q3WbPLMuzpatlfe rqLF6CJLzGMFrfG16qYDcKO rmUy7mi8P4u660CAYeZDBut V39Jy2m xJmrTMZrgTVHiA9akrnnc3q bgybxEuCcZAFfMQm4TJw8MX TobCskMfHdAIL1DdM6BYR2t TJsrI5z fUegofnqyJ6hXsv+RmVtYWx lVA84MI67nJDsj8K5hGR4X2 WfSDLevpqclnoahFM0MYRnX DUwaW47 sEGuLKzfJe7xn9U9h116RPX hRDUnpT79Cp8evBffUANdlO NPwD8fzsvxs7swoumtWuYtK DAwMDt0 TCo1KIWagLopFfZmWGZ5HvP 4XEW5cHNbhO7mxAbvdoalhF 9wOyc+ZOCbTPEwe6Hfv3MwB Y44OT06 S5ZlDqeapSIhaIN+PHRhYmx lIHdpZHRoPScxMDAlJyBzdH kcRD3rYb0uOAJqSCCzjYopi HNlOiBj u8pgMUNcGOuxIO3waFodU0N pkHT4SVImv0z9Uo53H58uK2 JvdXA+BGTgyLG6nUG5sR4oB zAlIiB2 BVzmH484LnQjvRBpFgblb0m gi9nowYz2YuNfWIMtxkPqvV brMOM7d3WgLk70K08mQOwnR HRoPSIy EVZwKPMiuVgdtq3lwY9hIe7 +KHEksUV2bPJ1jL0bLgAiPl X3MBitM407AjGifCFqAhgbG 75wI0Qs dXA+IWPqOqr3HMExsSubMI1 ltEPxYWcdXz4sMUC7ClYlAz PoTVreN1LtUWQzavrgqjbow AV7GWXg VQCmkC27Yv5epThlZf0aAKJ zIOB8PFHldTPeX1QrdM0hWm OeXCEjJPJtZ3ZdrEXrMZydD 246IGxl JiD8DIFuwiHcM1LhUAZreSs rDyW9n5A4Hp3AoEedvPDaHG 4yBmUiZSq4D8PtWjt2SULtr CblOD5u vDFxLQuqJz6egMdfeFfdFC9 jIQWyfwgiv859CfZtp7stJV XjpYEcLXojQLN9E62ne8W0H CMwMDAw USY2rZV8kR9riAjlxcqeiJP mdDsgdmVydGljYWwtYWxpZ2 38XNQkoDexFeTHHul3Z1FsQ hu2CNVd gMneAH1auKOoIIlgXl4qoEu laDgwET4dEPWeunwyi428Ug Tcf3efGYHisZLsNCwkTOL1G 73is3V7 LEJlGVJeHIC5zVY6xB3glZr nbjogbGVmdDsgdmVydGljYW mtHYrbN289XVXsiFmmLf0BG ay0E3Xx Jiy5ANHtcSxmET8ckLZyQNd iJf9rbQfezWahXF8vIPMfmx jnb000ZcPaa7hhROEitQOkP GltZXM7 Y96wx5C5ETHrGJRtNQO0gFK 2qB5ceOrnfxzpjLUauXvlom TfnKrgLZcyMAnoI736FTOlv DsnPlBh eWVyOjwvdGQ+BG42lq97O6F eUjjuNfe0SHCnQPM8tCJ3qW 2kETCiYYopm4F5cAJ3E3Fal oSfkt6y b2xs (more content not included)... [facility] C Urineon 12-16-2022 Bacteria identified Cx [...] Locations R1: This test was performed at: [facility], [address] [place] [address], [id number] , [place], Normal [facility] Comment on above: Performed By: #### 2 [id number] ####[facility] [address] [place] [address] Ambulatory Visit Summaryon 0 12-14-2022 Ambulatory Visit [...] Urothelial carcinoma of bladder Vaginal atrophy Normal [facility] Operative Reporton Operative Report [id number]#1.00C D:127 [facility] Pathology Noteon 12-13-2022 Pathology Note [id number]#1.00C D:127 Normal [facility] CYTOLOGYon 12-07-2022 SENT TO REF LAB 12/07/[address] [facility] Comment on above: Performed By: #### C YTO #### [facility] [address] [place] [address] Dr. Troy Jeter Insurance Correspondenceon 0 11-25-2022 Insurance Correspondence [id number] :127 Normal [facility] CBC AUTO DIFFon 11-23-2022 BASO # 0.1 103/ul Normal 0.0-0.1 [facility] Comment on above: Performed By: #### C BC #### [facility] [address] [place] [address] Dr. Troy Jeter Basophils/100 WBC (Bld) 1.0 % Normal 0.2-2.0 [facility] Comment on above: Performed By: #### C BC #### [facility] [address] [place] [address] Dr. Troy Jeter EO # 0.1 103/ul Normal 0.0-0.7 [facility] Comment on above: Performed By: #### C BC #### [facility] [address] [place] [address] Dr. Troy Jeter Eosinophils/100 WBC (Bld) 2.4 % Normal 0.9-7.0 [facility] Comment on above: Performed By: #### C BC #### [facility] [address] [place] [address] Dr. Troy Jeter Erythrocyte distribution width (RBC) [Ratio] 14.6 % Normal 11.0-15.0 [facility] Comment on above: Performed By: #### C BC #### [facility] [address] [place] [address] Dr. Troy Jeter Hematocrit (Bld) [Volume fraction] 37.7 % Normal 36.0-48.0 [facility] Comment on above: Performed By: #### C BC #### [facility] [address] [place] [address] Dr. Troy Jeter Hemoglobin (Bld) [Mass/Vol] 11.0 g/dL Critically low 12.0-16.0 [facility] Comment on above: Performed By: #### C BC #### [facility] [address] [place] [address] Dr. Troy Jeter IG # 0.02 10e3/ul Normal 0.00-0.03 [facility] Comment on above: Performed By: #### C BC #### [facility] [address] [place] [address] Dr. Troy Jeter IG % 0.4 % Normal 0.0-0.5 [facility] Comment on above: Performed By: #### C BC #### [facility] [address] [place] [address] Dr. Troy Jeter LYMPH # 1.3 103/ul Normal 1.2-3.8 [facility] Comment on above: Performed By: #### C BC #### [facility] [address] [place] [address] Dr. Troy Jeter Lymphocytes/100 WBC (Bld) 25.5 % Normal 20.5-60.0 [facility] Comment on above: Performed By: #### C BC #### [facility] [address] [place] [address] Dr. Troy Jeter MANUAL DIFF REQ NO Normal [facility] Comment on above: Performed By: #### C BC #### [facility] [address] [place] [address] Dr. Troy Jeter MCH (RBC) [Entitic mass] 25.9 pg Critically low 26.7-34.0 [facility] Comment on above: Performed By: #### C BC #### [facility] [address] [place] [address] Dr. Troy Jeter MCHC (RBC) [Mass/Vol] 29.2 g/dL Critically low 29.9-35.2 [facility] Comment on above: Performed By: #### C BC #### [facility] [address] [place] [address] Dr. Troy Jeter MCV (RBC) [Entitic vol] 88.7 fL Normal 81.0-99.0 [facility] Comment on above: Performed By: #### C BC #### [facility] [address] [place] [address] Dr. Troy Jeter MONO # 0.4 103/ul Normal 0.3-0.8 [facility] Comment on above: Performed By: #### C BC #### [facility] [address] [place] [address] Dr. Troy Jeter Monocytes/100 WBC (Bld) 8.6 % Normal 1.7-12.[address] [facility] Comment on above: Performed By: #### C BC #### [facility] [address] [address] [address] Troy Jeter NEUT # 3.2 103/ul Normal 1.4-6.5 [facility] Comment on above: Performed By: #### C BC #### [facility] [address] [address] [address] Troy Jeter Neutrophils/100 WBC (Bld) 62.1 % Normal 43.0-75.0 [facility] Comment on above: Performed By: #### C BC #### [facility] [address] [place] [address] Dr. Troy Jeter Platelet mean volume (Bld) [Entitic vol] 9.4 fL Critically low 9.5-13.5 [facility] Comment on above: Performed By: #### C BC #### [facility] [address] [place] [address] Dr. Troy Jeter PLT 190 103/ul Normal 150-450 [facility] Comment on above: Performed By: #### C BC #### [facility] [address] [place] [address] Dr. Troy Jeter RBC 4.25 106/ul Normal 4.20-5.40 [facility] Comment on above: Performed By: #### C BC #### [facility] [address] [place] [address] Dr. Troy Jeter WBC 5.1 103/ul Normal 4.0-11.0 [facility] Comment on above: Performed By: #### C BC #### [facility] [address] [place] [address] Dr. Troy Jeter PROF 14(COMP METB)on 023 Albumin [Mass/Vol] 3.4 g/dL Normal 3.4-5.[address] [facility] Comment on above: Performed By: #### C BC #### [facility] [address] [place] [address] Dr. Troy Jeter Albumin/Globulin [Mass ratio] 0.9 {ratio} Normal [facility] Comment on above: Performed By: #### C BC #### [facility] [address] [address] [address] Troy Jeter ALP [Catalytic activity/Vol] 99 U/L Normal 46-116 [facility] Comment on above: Performed By: #### C BC #### [facility] [address] [address] [address] Troy Jeter ALT [Catalytic activity/Vol] 67 U/L Critically high 14-59 [facility] Comment on above: Performed By: #### C BC #### [facility] [address] [address] [address] Troy Jeter Anion gap [Moles/Vol] 12.8 mmol/L Normal [facility] Comment on above: Performed By: #### C BC #### [facility] [address] [place] [address] Dr. Troy Jeter AST [Catalytic activity/Vol] 54 U/L Critically high 15-37 [facility] Comment on above: Performed By: #### C BC #### [facility] [address] [place] [address] Dr. Troy Jeter Bilirubin [Mass/Vol] 0.4 mg/dL Normal 0.2-1.0 [facility] Comment on above: Performed By: #### C BC #### [facility] [address] [place] [address] Dr. Troy Jeter Calcium [Mass/Vol] 9.3 mg/dL Normal 8.5-10.[address] [facility] Comment on above: Performed By: #### C BC #### [facility] [address] [address] [address] Troy Jeter Chloride [Moles/Vol] 106 mmol/L Normal 98-107 [facility] Comment on above: Performed By: #### C BC #### [facility] [address] [place] [address] Dr. Troy Jeter CO2 [Moles/Vol] 24.9 mmol/L Normal 21.0-32.0 [facility] Comment on above: Performed By: #### C BC #### [facility] [address] [address] [address] Troy Jeter Creatinine [Mass/Vol] 0.89 mg/dL Normal 0.55-1.02 [facility] Comment on above: Performed By: #### C BC #### [facility] [address] [address] [address] Troy Jeter EGFR-AF ANDORRAN >60 Normal >=60 [facility] Comment on above: Performed By: #### C BC #### [facility] [address] [address] [address] Troy Jeter EGFR-NON AF ANDORRAN >60 Normal >=60 [facility] Comment on above: Performed By: #### C BC #### [facility] [address] [place] [address] Dr. Troy Jeter Globulin (S) [Mass/Vol] 3.7 g/dL Normal [facility] Comment on above: Performed By: #### C BC #### [facility] [address] [address] [address] Troy Jeter Glucose [Mass/Vol] 125 mg/dL Critically high 74-106 [facility] Comment on above: Performed By: #### C BC #### [facility] [address] [place] [address] Dr. Troy Jeter Potassium [Moles/Vol] 3.7 mmol/L Normal 3.5-5.1 [facility] Comment on above: Performed By: #### C BC #### [facility] [address] [place] [address] Dr. Troy Jeter Protein [Mass/Vol] 7.1 g/dL Normal 6.4-8.2 [facility] Comment on above: Performed By: #### C BC #### [facility] [address] [place] [address] Dr. Troy Jeter Sodium [Moles/Vol] 140 mmol/L Normal 136-[address] [facility] Comment on above: Performed By: #### C BC #### [facility] [address] [place] [address] Dr. Troy Jeter Urea nitrogen [Mass/Vol] 15.0 mg/dL Normal 7.0-18.0 [facility] Comment on above: Performed By: #### C BC #### [facility] [address], [place] [address] Dr. Troy Jeter Urea nitrogen/Creatinine [Mass ratio] 16.9 mg/mg Normal [facility] Comment on above: Performed By: #### C BC #### [facility] [address], [place] [address] Dr. Troy Jeter XR HAND RT MIN [...] by: JULISSA KAUFMAN Date: 2022-11-05 08:18 Normal [facility] Ambulatory Visit Summaryon 1 12-27-2021 Ambulatory Visit Summary DANIELLA BEJARANO :1960 Visit Date:10/26/2022 Ambulatory Visit Instructions Your Diagnosis Bladder cancer OAB (overactive bladder) History of UTI Vaginal atrophy Tests Performed Urnls Dip Stick Auto w/o Microscopy POC 66114 Your Care Team Attending Physician - RUY VALLE, AI Alejandro Primary Care Physician - BAYRON SINGH MD [...] Schedule the Following Appointments Follow Up with RUY VALLE, ISAIAH WILKINSON When: Where: [address] [place] [address] Medications What How Much When Instructions Unchanged [...] Urnls Dip Stick Auto w/o Microscopy POC 11606 (10/26/2022) Bilirubin Urine Dipstick - Negative Blood Urine Dipstick - Negative Glucose Urine Dipstick - Negative Ketones Urine Dipstick - Negative Leukocytes Urine Dipstick - Negative Nitrite Urine Dipstick - Negative Protein Urine Dipstick - Negative Specific [place] Urine Dipstick - 1.020 Urine Appearance Urine [...] Urothelial carcinoma of bladder Vaginal atrophy Normal [facility] Urology Office/Clinic Noteon 10-26-2022 Urology Office/Clinic [...] Contact Information RUY VALLE, AI Alejandro, URL [address] [place] [address] Additional Instructions: F/U nov 2022 cysto/cyto Patient [...] Daily Protonix 40 mg Tab-DR, Oral, BID Gu-Win BCG Live (for intravesical use), 50 mg, IntraVesical, Once Vesicare 10 mg Tab, 10 mg= 1 tab(s), Oral, Daily, 3 refills Vitamin D, Oral, qWeek Allergies Percocet (Headache) Social History Alcohol - Denies Alcohol Use, 07/07/2021 Tobacco Former smoker, quit more than 30 days ago Tobacco Use:. Never Smokeless Tobacco Use:. Cigarettes, 10/12/2022 (more content not included)... Normal [facility] Comment on above: Result Comment: Elec [...] Urnls Dip Stick Auto w/o Microscopy POC 67361 Your Care Team Attending Physician - Dina Cobb MD Primary Care Physician - BAYRON SINGH MD [...] MITCHELL PA-C Where: [facility] Patient Educationon 10-19-20 22 Patient Education Oncology Bladder Cancer Bladder [...] Follow these instructions at home: ? Take qjvr-dti-krcytka and prescription medicines only as told by [...] important. Where to find more information ? [place] [employer]: www.cancer.org ? National Cancer Chappells (NCI): www.cancer.gov Contact a health care provider [...] 10/18/2004 Document Revised: 09/28/2018 Document Reviewed: 09/19/2017 [employer] Patient Education ? 2019 [employer]. [facility] Urology Office/Clinic Noteon 10-19-2022 Urology Office/Clinic [...] qualifying data available Patient Education Bladder Cancer IShaylee , personally scribed for Dr. Cobb on [...] Brother. Immun (more content not included)... Normal [facility] Comment on above: Result Comment: Elec tronically Signed By: Dina Cobb MD\.br\Date and Time Signed: 10/19/22 08:20 EST\.br\Electronically Co-Signed By: Shaylee Bermudez\.br\Date and Time Co-Signed: 10/19/22 08:13 EST Consent for Procedure/Surger yon 10-12-2022 Consent for Procedure/Surgery [id number] D:127 Normal [facility] Patient Educationon 10-12-20 Patient Education Oncology [...] Follow these instructions at home: ? Take eorz-mms-imfngka and prescription medicines only as told by [...] important. Where to find more information ? [place] [employer]: www.cancer.org ? National Cancer Chappells (NCI): www.cancer.gov Contact a health care provider [...] 10/18/2004 Document Revised: 09/28/2018 Document Reviewed: 09/19/2017 [employer] Patient Education ? 2019 [employer]. [facility] Urology Office/Clinic Noteon 10-12-2022 Urology Office/Clinic [...] No qualifyi (more content not included)... Normal [facility] Comment on above: Result Comment: Elec tronically Signed By: Dina Cobb MD\.br\Date and Time Signed: 10/12/22 09:01 EST\.br\Electronically Co-Signed By: Paulina Valenzuela\.br\Date and Time Co-Signed: 10/12/22 08:44 EST Pathology Noteon 08-17-2022 Pathology Note [id number] D:127 Normal [facility] Operative Reporton Operative Report [id number] D:127 Normal [facility] CYTOLOGYon 08-10-2022 SENT TO REF LAB 08/10/22 Normal [facility] Comment on above: Performed By: #### C YTO #### [facility] [address] [place] [address] Dr. Troy Jeter Lab Reportson 07-29-2022 Lab Reports [id number]#[id number] D:127 Normal [facility] CULTURE URINEon 07-28-2022 CULTURE URINE Culture Observations : Sent to [facility] for EVIN on 07/25. Isolate 1 Klebsiella [...] F Meropenem S F Tetracycline R F [facility] Comment on above: Performed By: #### C YTO #### [facility] [address] [place] [address] Dr. Troy Jeter Lab Reportson 07-27-2022 Lab Reports [id number]#[id number] D:127 [facility] Lab Reports [id number] :127 [facility] C Urineon 07-08-2022 Bacteria identified Cx [...] Locations R1: This test was performed at: [facility], [address] [place] [address], [address] , [place], [facility] Comment on above: Performed By: #### 2 [id number] ####[place] [address] [facility] [place] [address] Coding Summary.on 07-08-2022 Coding Summary. CD:[id number] Gh0 bWw+PGhlYWQ+LZ8GXCLiL27 amLYgnW1FB0cWRO8NUBEJZE SBAB9IWR9ckKF2BYrhF0Afw iAv CqyfiJAvAZ94VOa5SIB2fAg pNLvmiM6laQQmV0e3LyZeGU 45mO84XKmoGPTyEyT8JkEqb jsgbWFy N6kaPrDeoLJvCzx+PHRhYmx lIHdpZHRoPScxMDAlJyBzdH wpYD2tBl0aIOIyHCMufTufg HNlOiBj u2jzEQKxBDvcRQ5bnTinI6S ucRD6OYCok1r0Vr74bVX+PH AhVHZ8cQtlJLutw772FgYfx 7xkVVV1 mNGdIHkuAUX9W56xv6G0OBO aJFYiRSF0kAR8tM2faLgbli duZ3ZkbBVnVuZ0NOV7pHDvn K0uqBkx zceedX9hTsn+X23CFE0YPZL RRE9SAuu0R3HkTcqpbAQ+PC 39PSKnBT48hXYlePQdq9azr Po4GjCw FDXoSQD7dBrfHVnok8KnLTW xQ08xkQSnf5M0ZNKhaUyydL CeQsAvhYA1pT8jKJqzaxyol 2hvdzsn Mkvli8zhts66gS17C33kNZz lEQRrXCQ3VASyOIQivZstuq 6yaE5rQi5+AOhps9ker3fxy Li9FyWu EVPqmtWdzVfqRKQ4w4NvAs3 2J6RseQwtw1WwMlo4pe48iS Myv9N4gGD3IZpfPNKgzD5vH WxlZnQ6 HHSfMnXwwQ55iFUfSJmaQn2 ghVjxtYfbRV5jGYYzyjhnXK JwoK4qZGZmcAOqvJrbUW2zB TBpbjtm k322GwHiQPQ1EQDokIJgZ2A xkO1wHmKvKAEuNWRgZ4NhhU GvUHpfL766CRrhOeD8COOjf hSpS8Dq CXTwnHdtLiY0o9W1Vi3Ru9V ezctxUKS3ZVhiIXM0KqR1Dc LcMqZ0J5ZvXbm9ZOLheOwlS V1zM4Dd YLWwiiuuqkzwcFY5LRUiAAT wfR58dSRiPLcxQr8fc9A0u1 59VDDnEKXwrG77Ch5qnUxsU TBwdCBU dI2oocvel2esbzmkPrIdWHH gOUt1MIh7ULRtxGpiSwDyIC W1CbI7CUW1rXSioZ0tqOofz ghufX3s Oyc+T48ssP0zWMZ9SYA9alz dUVNeedVtYL75CH28Q4UrGw wvdGFibGU+PGRpdiBzdHlsZ U6vWpPx h0snq5GuHDoxW5OeLMWlYKs gNzr5MFWnIOY1dOZ5iJ8sBH GbTRidp6P0mFW6J4YbncIqe t8ie0vv NMNeZIvsR81kwHJki2C5WTY joIR4XVXtqMvhBxWjtP82Lo c+CMMblQoek1WdYuqmc9jst 9vfhLs1 ZsGhRDEuueMczFraJXT2m0O iKb70O56yPHatZXRiTRZkHS DhSZTnvTjuer6wfW8sGx5+P GNvbCB3 fXR7qQ3qUZSqTwP7CCwjR07 7PlQqaVEsKxeei9ica8qovH f2FuOcXASjubQucOrlUHE7i 2QhTg01 T83nRMjnIYSjBZVgLUVrQOW ozVrynp3ykC1bTg7+PC9jb2 zuzj34aV04xXR+VCZgLAE4x WxlPSdw OZVylG6qJScmDcD9MFLjEbA yrM70iBSiKWapIb3ekTudzJ foXJ9vMPWmjmoqh161ZyTig 2xkIDEw iNZeXAbcNMI0G38rs3I5FVB kVXJtPKY3hKK0hP3aiIeobg ogbGVmdDsgdmVydGljYWwtY EmrC223 IHRvcDsnPlBhdGllbnQgTmF pBUl2X4OgOxt0PTCorNqjSP 7xtVJjVFpcWw7tgFtrjJmyZ G1yDBPl eicdq092VlSkk6yjWUThiPE hKNytSAG7G08io2P6ZCQpNK KxLDI2sHF2yV0feHsgqxsgr GVmdDsg yhHomBepILpsNGmvF616CII njQmgVqMhvdVgGXKwfRV6OY 98FA55oQCcy4B2eWD3E0BsR GRpbmct dicqfRA2WKSsQJNzhE47Hz5 avQqqPi9zOKGsYZN6BMKlgO QbA6AnrU4yEyGiUKIeFZHpZ 3RleHQt DRruF491DZviKaE0QQClqyE cI2DwJTMtiLkuYrL5x5H2Wl 8MJ0K2FM66TN59rCVje0T9r US2M4Rd ECPwuobgzqxbfHW1QMHwPZJ upR58Qc9ctKimWp8bDGGxDO F6UXUevDExK6RaiI1bNyPqD DAwMDAw R0JagPBjAXniG284JJopSeX 2MBQdcqBtT1VvRPXigWcvPy C0l8I8Ij6KYYj1ZX52AE84y LRir8W2 iVB9V6ZwDDGqkheywmdhrAO 1WFZgAPYkmO43Lz1irPmcLk 4mNQObAXK9MLWwmCCjK8Ueg O7tPjHg JJMwQHUnL9FzrFIeTOpgN35 8CJkjPpG9WDXvjmBxU8YvQH RxgZhvEtL1x4Y3Ri4OVOUcE B92MPG4 iXJ1KU55MQ62U8LcAfcqqQH ibGU+PHRhYmxlIHdpZHRoPS jxGPYrWxAapNelGW6sNf4lC GVyLWNv rDntvTPmYkBdq9hlCTJgUIh rEB1zgPsvX2HtcRS3AWTtj2 i6Cs22D42tU4OigSJ+PGNvb LP5qND2 tN8rXmJdBmM4GAabG008NcG kqSFxQobge3hap2dznJs7Of J5HTLalgHrzDvzWMW6u4EqB a78Z23c IHdpZHRoPSIxNSUiIHZhbGl ecy0tlB0fDh0+AKZarAJ1zN X4aA9nSaEmIjJ0YXdhY598F nRvcCIv Hoxin7gis5opeOe3QiAiFPQ lsaAcpVofEPX1o2EtVu31M0 GmpUtam2DmIhe5dn01rQLfe 2K0zGT9 A2OiYKAvgmjvaCMbmQboBO7 cOMHdlqxkXURdxT1lMYRxI7 u2WbOcYgE2QDkzN5EqnkE9A DEwcHQg VUmuXXY2K59wi4H8MGJaQOO fULT0zHS9uU6iuGhjmkhsmS VmdDsgdmVydGljYWwtYWxpZ 246IHRv aEiyPYAzyX0bRXNyqIXvlDp rZU0bXQIsbvqpOd4FWTrXWp feKSJEEcxFWwMRIS70RP92b JDpa7K3 gUB7O8GsXFGbndybncmgrWJ 1ZLIvKLXowJ79zPGeXSxrKr 0kk4P9e896QARiJWWgyY84X d3iaNyq JMHcwQPEoI0xqmewz3fwbsj vWcIgXACoNZp8ZVq4UHSsfA pyGaYgQVW2HpK9XPO4bLFww L9itZnh mmbhqM5jXvw+MDgvMjIvMTk 1ODwvdGQ+IGIuJQQ0sShnHC nnXKNtbF8qIHJdA4r6WzJgH wQ3QIph J8ToPOEejtdpDp34kM9iRdS sThT9XVuhK4DlqbT4ECBkmJ GdPLijLYM7P50xt1H1APQbL DAwMDA7 oLB1uP5ztWzcbcwkcRAytQx dykQhcDpaFVyfFUymC434RH DmxGocTsG8YPpmIWMtDF71P E13rNIt y2E4yHN9K1NeNUSrdihivwu jjOK3NEWsBOOgoP97aZJnGI twIi5oh8N9f660KAHgAZWwo P97Ch6p eJpfWGJrkZSMvJ1dtejlz0u exkafMjFnLXYeXQd8GVa5UK BwzNdmFsPgOKW2YrF1JXN1v FFrmQ1o bAlshffwwH3lWmy+RmVtYWx kVC07IA64mYVav0Y7pAT8U4 TvPGHmyecamoomiJI9KNDkQ DUwaW47 pJNbXAybYn3ys1M4e369JZW cURJyxU88Vm1jfFyjKSTcqT CIgF2cjtqmv9chllsiCqPrY DAwMDt0 DHe4SQPxvHalCbJyVMN9JlO 7NUJ9wNPgqD3xyNulagdoqA 9wOyc+FPFaDGQke3Vpn7LtX O83YT05 L9UfNpofvEHtiKF+PHRhYmx lIHdpZHRoPScxMDAlJyBzdH heEZ0mJc7mOVTkDFRtuAcgz HNlOiBj z6uaOSUaNQcqCQ2lcQcwC6X ulLT6OXAdw1q7Tr71T71vU4 JvdXA+KVKnpOB8eNR0hY1cL zAlIiB2 NZnsS526KxRtzGQoMntks3b vw3dueSa7TuTfIGSoimIvlA yrMHK9m3DzGz27X91pOZciH HRoPSIy NEMbYBDgnIipir8zdA6eKx3 +AACecFB2wFF6aU2lKeVvKv V5GSgmX921RxKbrMYeYbfqZ 58oZ8Gs dXA+DBDyAqb1UHIflMwvEP1 ulIIuOMynPg5vBIU3FeHvNs CsIYyoT3MmNSIjkrxahfyud QX8XSQp PHZhtM65Ph8abGwlKq6cMAZ bXUU8BFWozHMnX3EygW5kDu FoMHNyRDEdZ5BoxIKaSDuaK 246IGxl JeH5OWHxmpHoM1AiDDRieKt dLxN1b3H7Zn9NbWqgdDUoVF 5jRgKjKAu3U3GaIhk7HDTim WfcAR7v vDQxAYsfRh4kzBhkdIlhSD3 rHNUbkxaqk168GxVcp4rcHL YnkRDdOXbnEBV5F02is6F9Z CMwMDAw EBH4xQW3sN6ltYseunddfME mdDsgdmVydGljYWwtYWxpZ2 83OILnxCbvBoBHMis1V1BsF yi8GWPn nGfsBU0adIScIFpxNz4yoJq wiRcbLN1uZKGhbvets130Ix Tpg6nqGYJzcPWbOTyiRQG8D 39cb5G0 WLTsEZAoCRZ5iST8eD3ssXh nbjogbGVmdDsgdmVydGljYW dpHWmgB042RJSdyYfnWy5SA uv3G6Cm Zme3CFFrqZhqWS1vtHCvMOo eBk9auGjdtFllXZ9aIRZjgv qpx790FbMay4rtKGRuzHIcH GltZXM7 V36fg2V4TJQhEVOtRSM6pCN 4gA4kbNdqmqopjXJwwOeqlc IxmLkeDZspYIkwR285IIHtd DsnPlBh eWVyOjwvdGQ+SL30ps84U3N fOpzqBdh7IGYdNRG0aAF3xR 0zVDNdLMqot7O2oLO0M8Glu pKbuv5a b2xs (more content not included)... Normal [facility] Ambulatory Visit Summaryon 0 07-06-2022 Ambulatory Visit Summary DANIELLA BEJARANO :1960 Visit Date:07/06/2022 Ambulatory Visit Instructions Your Diagnosis Bladder cancer OAB (overactive bladder) History of UTI Vaginal atrophy Tests Performed Urnls Dip Stick Auto w/o Microscopy POC 24771 Your Care Team Attending Physician - Reza [...] the Following Appointments Follow Up with Reza AJMES, Dina Oconnell, ISAIAH, URO When: Where: Medications [...] Urnls Dip Stick Auto w/o Microscopy POC 18646 (07/06/2022) Bilirubin Urine Dipstick - Negative Blood Urine Dipstick - Trace-intact Glucose Urine Dipstick - Negative Ketones Urine Dipstick - Negative Leukocytes Urine Dipstick - 2+ Moderate Nitrite Urine Dipstick - Positive Protein Urine Dipstick - Negative Specific [place] Urine Dipstick - 1.025 Urine Appearance Urine Dipstick - Cloudy Urine Color Urine Dipstick - Yellow Urobilinogen Urine Dipstick - Normal 0.2-1 EU/dl pH Urine Dipstick - 5.5 Medications and Immunizations Administered Given Gu-Win BCG Live (for intravesical use), 50 mg, [...] paint. ? (more content not included)... Normal [facility] Patient Educationon 07-06-20 Patient Education Oncology [...] Follow these instructions at home: ? Take bgey-bon-eymxzeu and prescription medicines only as told by [...] important. Where to find more information ? [place] [employer]: www.cancer.org ? National Cancer Chapp[employer] (NCI): www.cancer.gov Contact a health care provider [...] 10/18/2004 Document Revised: 09/28/2018 Document Reviewed: 09/19/2017 [employer] Patient Education ? 2019 [employer]. [facility] Urology Office/Clinic Noteon 07-06-2022 Urology Office/Clinic [...] ago To (more content not included)... Normal [facility] Comment on above: Result Comment: Elec tronically Signed By: Dina Cobb MD\.br\Date and Time Signed: 07/06/22 11:31 EDT\.br\Electronically Co-Signed By: Pratibha Rodriguez.br\Date and Time Co-Signed: 07/06/22 10:33 EDT\.br\Electronically Co-Signed By: Pratibha Rodriguez\.kristan\Date and Time Co-Signed: 07/06/22 10:34 EDT BUNon 07-01-2022 Urea nitrogen [Mass/Vol] 14.0 mg/dL Normal 7.0-18.0 [facility] Comment on above: Performed By: #### C YTO #### [facility] [address] [place] [address] [address] Troy Jeter CREATININEon 07-01-2022 Creatinine [Mass/Vol] 1.04 mg/dL Critically high 0.55-1.02 [facility] Comment on above: Performed By: #### C YTO #### [facility] [address] [place] [address] [address] Troy Jeter EGFR-AF ANDORRAN >60 Normal >=60 [facility] Comment on above: Performed By: #### C YTO #### [facility] [address] [place] [address] [address] Troy Jeter EGFR-NON AF ANDORRAN 53 mL/min/1.73m2 Critically low >=60 [facility] Comment on above: Performed By: #### C YTO #### [facility] [address] [place] [address] ABD/PELV WO W [...] 2022-07-01 11:[address] [facility] Ambulatory Visit Summaryon 0 06-29-2022 Ambulatory Visit Summary DANIELLA BEJARANO :1960 Visit Date:06/29/2022 Ambulatory Visit Instructions Your Diagnosis Bladder cancer OAB (overactive bladder) History of UTI Vaginal atrophy Tests Performed Urnls Dip Stick Auto w/o Microscopy POC 46965 Your Care Team Attending Physician - Reza [...] JAMES, Dina Oconnell Where: [facility] Patient Educationon 06-29-20 Patient Education Oncology Bladder [...] Follow these instructions at home: ? Take fsrj-vgo-oqojrom and prescription medicines only as told by [...] important. Where to find more information ? [place] [employer]: www.cancer.org ? National Cancer Chappells (NCI): www.cancer.gov Contact a health care provider [...] 10/18/2004 Document Revised: 09/28/2018 Document Reviewed: 09/19/2017 [employer] Patient Education ? 2019 [employer]. [facility] Urology Office/Clinic Noteon 06-29-2022 Urology Office/Clinic Note [...] Daily Protonix 40 mg Tab-DR, Oral, BID Gu-Win BCG Live (for intravesical use), 50 mg, [...] Immunizations Vacc (more content not included)... Normal [facility] Comment on above: Result Comment: Elec [...] by: FRANNY ZEE Date: 2022-05-26 13:26 Normal [facility] PROTIMEon 05-04-2022 INR Coag (PPP) [Relative time] 1.00 {INR} Normal [facility] Comment on above: Performed By: #### C YTO #### [facility] [address] [address] [address] Troy Jeter INR GUIDELINES SEE BELOW Normal [facility] Comment on above: Result Comment: LORENA RED INR: 2.0 - 3.0 CONDITIONS NOT LISTED BELOW 2.5 - 3.5 FOR PROSTHETIC HEART VALVE REPLACEMENT 2.5 - 3.5 RECURRENT THROMBOSIS Performed By: #### C YTO #### [facility] [address] [address] [address] Troy Jeter PT Coag (PPP) [Time] 10.8 s Normal 9.0-11.6 [facility] Comment on above: Performed By: #### C YTO #### [facility] [address] [address] [address] Troy Jeter PTTon 05-04-2022 aPTT Coag (Bld) [Time] 24.5 s Normal 22.3-36.2 [facility] Comment on above: Performed By: #### C YTO #### [facility] [address] [address] [address] Troy Jeter CYTOLOGYon 04-27-2022 SENT TO REF LAB 04/28/22 Normal [facility] Comment on above: Performed By: #### C YTO #### [facility] [address] [address] [address] Troy Jeter MG MAMM SCREEN LT 3D CADon 0 04-11-2022 MG MAMM SCREEN LT 3D CAD Patient: DANIELLA BEJARANO Exam Date: 04/11/2022 : 1960 Gender:F Ordering : DR BAYRON SINGH . Admission #: [id number] Family : Order #: [id number] CLICK HERE TO VIEW EXAM RADIOLOGY REPORT [...] 03-31-2022 BASO # 0.0 103/ul Normal 0.0-0.1 [facility] Comment on above: Performed By: #### C BC #### [facility] [address] [address] [address] Troy Jeter Basophils/100 WBC (Bld) 0.0 % Critically low 0.2-2.0 [facility] Comment on above: Performed By: #### C BC #### [facility] [address] [place] [address] Dr. Troy Jeter EO # 0.1 103/ul Normal 0.0-0.7 [facility] Comment on above: Performed By: #### C BC #### [facility] [address] [address] [address] Troy Jeter Eosinophils/100 WBC (Bld) 2.1 % Normal 0.9-7.0 [facility] Comment on above: Performed By: #### C BC #### [facility] [address] [place] [address] Dr. Troy Jeter Erythrocyte distribution width (RBC) [Ratio] 14.3 % Normal 11.0-15.0 [facility] Comment on above: Performed By: #### C BC #### [facility] [address] [place] [address] Dr. Troy Jeter Hematocrit (Bld) [Volume fraction] 31.8 % Critically low 36.0-48.0 [facility] Comment on above: Performed By: #### C BC #### [facility] [address] [place] [address] Dr. Troy Jeter Hemoglobin (Bld) [Mass/Vol] 9.7 g/dL Critically low 12.0-16.0 [facility] Comment on above: Performed By: #### C BC #### [facility] [address] [place] [address] Dr. Troy Jeter IG # 0.01 10e3/ul Normal 0.00-0.03 [facility] Comment on above: Performed By: #### C BC #### [facility] [address] [place] [address] Dr. Troy Jeter IG % 0.3 % Normal 0.0-0.5 [facility] Comment on above: Performed By: #### C BC #### [facility] [address] [place] [address] Dr. Troy Jeter LYMPH # 0.7 103/ul Critically low 1.2-3.8 [facility] Comment on above: Performed By: #### C BC #### [facility] [address] [place] [address] Dr. Troy Jteer Lymphocytes/100 WBC (Bld) 25.3 % Normal 20.5-60.0 [facility] Comment on above: Performed By: #### C BC #### [facility] [address] [place] [address] Dr. Troy Jeter MANUAL DIFF REQ NO Normal [facility] Comment on above: Performed By: #### C BC #### [facility] [address] [place] [address] Dr. Troy Jeter MCH (RBC) [Entitic mass] 26.9 pg Normal 26.7-34.0 [facility] Comment on above: Performed By: #### C BC #### [facility] [address] [place] [address] Dr. Troy Jeter MCHC (RBC) [Mass/Vol] 30.5 g/dL Normal 29.9-35.2 [facility] Comment on above: Performed By: #### C BC #### [facility] [address] [place] [address] Dr. Troy Jeter MCV (RBC) [Entitic vol] 88.1 fL Normal 81.0-99.0 [facility] Comment on above: Performed By: #### C BC #### [facility] [address] [place] [address] Dr. Troy Jeter MONO # 0.4 103/ul Normal 0.3-0.8 [facility] Comment on above: Performed By: #### C BC #### [facility] [address] [place] [address] Dr. Troy Jeter Monocytes/100 WBC (Bld) 14.2 % Critically high 1.7-12.0 [facility] Comment on above: Performed By: #### C BC #### [facility] [address] [place] [address] Dr. Troy Jeter NEUT # 1.7 103/ul Normal 1.4-6.5 [facility] Comment on above: Performed By: #### C BC #### [facility] [address] [place] [address] Dr. Troy Jeter Neutrophils/100 WBC (Bld) 58.1 % Normal 43.0-75.0 [facility] Comment on above: Performed By: #### C BC #### [facility] [address] [place] [address] Dr. Troy Jeter Platelet mean volume (Bld) [Entitic vol] 9.3 fL Critically low 9.5-13.5 [facility] Comment on above: Performed By: #### C BC #### [facility] [address] [place] [address] Dr. Troy Jeter PLT 134 103/ul Critically low 150-450 [facility] Comment on above: Performed By: #### C BC #### [facility] [address] [place] [address] Dr. Troy Jeter RBC 3.61 106/ul Critically low 4.20-5.40 [facility] Comment on above: Performed By: #### C BC #### [facility] [address] [place] [address] Dr. Troy Jeter WBC 2.9 103/ul Critically low 4.0-11.0 [facility] Comment on above: Performed By: #### C BC #### [facility] [address] [place] [address] Dr. Troy Jeter PROF 14(COMP METB)on 022 Albumin [Mass/Vol] 2.7 g/dL Critically low 3.4-5.0 [facility] Comment on above: Performed By: #### C MP #### [facility] [address] [place] [address] Dr. Troy Jeter Albumin/Globulin [Mass ratio] 0.9 {ratio} Normal [facility] Comment on above: Performed By: #### C MP #### [facility] [address] [place] [address] Dr. Troy Jeter ALP [Catalytic activity/Vol] 51 U/L Normal 46-116 [facility] Comment on above: Performed By: #### C MP #### [facility] [address] [place] [address] Dr. Troy Jeter ALT [Catalytic activity/Vol] 57 U/L Normal 14-59 [facility] Comment on above: Performed By: #### C MP #### [facility] [address] [place] [address] Dr. Troy Jeter Anion gap [Moles/Vol] 16.1 mmol/L Normal [facility] Comment on above: Performed By: #### C MP #### [facility] [address] [place] [address] Dr. Troy Jeter AST [Catalytic activity/Vol] 69 U/L Critically high 15-37 [facility] Comment on above: Performed By: #### C MP #### [facility] [address] [place] [address] Dr. Troy Jeter Bilirubin [Mass/Vol] 0.2 mg/dL Normal 0.2-1.0 [facility] Comment on above: Performed By: #### C MP #### [facility] [address] [place] [address] Dr. Troy Jeter Calcium [Mass/Vol] 8.1 mg/dL Critically low 8.5-10.1 [facility] Comment on above: Performed By: #### C MP #### [facility] [address] [place] [address] Dr. Troy Jeter Chloride [Moles/Vol] 112 mmol/L Critically high 98-107 [facility] Comment on above: Performed By: #### C MP #### [facility] [address] [address] [address] Troy Jeter CO2 [Moles/Vol] 18.3 mmol/L Critically low 21.0-32.0 [facility] Comment on above: Performed By: #### C MP #### [facility] [address] [address] [address] Troy Jeter Creatinine [Mass/Vol] 0.89 mg/dL Normal 0.55-1.02 [facility] Comment on above: Performed By: #### C MP #### [facility] [address] [address] [address] Troy Jeter EGFR-AF ANDORRAN >60 Normal >=60 [facility] Comment on above: Performed By: #### C MP #### [facility] [address] [place] [address] Dr. Troy Jeter EGFR-NON AF ANDORRAN >60 Normal >=60 [facility] Comment on above: Performed By: #### C MP #### [facility] [address] [address] [address] Troy Jeter Globulin (S) [Mass/Vol] 3.0 g/dL Normal [facility] Comment on above: Performed By: #### C MP #### [facility] [address] [address] [address] Troy Jeter Glucose [Mass/Vol] 80 mg/dL Normal 74-[address] [facility] Comment on above: Performed By: #### C MP #### [facility] [address] [address] [address] Troy Jeter Potassium [Moles/Vol] 3.4 mmol/L Critically low 3.5-5.1 [facility] Comment on above: Performed By: #### C MP #### [facility] [address] [place] [address] Dr. Troy Jeter Protein [Mass/Vol] 5.7 g/dL Critically low 6.4-8.2 [facility] Comment on above: Performed By: #### C MP #### [facility] [address] [place] [address] Dr. Troy Jeter Sodium [Moles/Vol] 143 mmol/L Normal 136-[address] [facility] Comment on above: Performed By: #### C MP #### [facility] [address] [place] [address] Dr. Troy Jeter Urea nitrogen [Mass/Vol] 11.0 mg/dL Normal 7.0-18.0 [facility] Comment on above: Performed By: #### C MP #### [facility] [address] [place] [address] Dr. Troy Jeter Urea nitrogen/Creatinine [Mass ratio] 12.4 mg/mg Normal [facility] Comment on above: Performed By: #### C MP #### [facility] [address] [place] [address] Dr. Troy Jeter CBC AUTO DIFFon 03-30-2022 BASO # 0.0 103/ul Normal 0.0-0.1 [facility] Comment on above: Performed By: #### C BC #### [facility] [address] [place] [address] Dr. Troy Jeter Basophils/100 WBC (Bld) 0.3 % Normal 0.2-2.0 [facility] Comment on above: Performed By: #### C BC #### [facility] [address] [place] [address] Dr. Troy Jeter EO # 0.0 103/ul Normal 0.0-0.7 [facility] Comment on above: Performed By: #### C BC #### [facility] [address] [place] [address] Dr. Troy Jeter Eosinophils/100 WBC (Bld) 1.2 % Normal 0.9-7.0 [facility] Comment on above: Performed By: #### C BC #### [facility] [address] [place] [address] Dr. Troy Jeter Erythrocyte distribution width (RBC) [Ratio] 14.1 % Normal 11.0-15.0 [facility] Comment on above: Performed By: #### C BC #### [facility] [address] [address] [address] Troy Jeter Hematocrit (Bld) [Volume fraction] 32.5 % Critically low 36.0-48.0 [facility] Comment on above: Performed By: #### C BC #### [facility] [address] [address] [address] Troy Jeter Hemoglobin (Bld) [Mass/Vol] 9.8 g/dL Critically low 12.0-16.0 [facility] Comment on above: Performed By: #### C BC #### [facility] [address] [address] [address] Troy Jeter IG # 0.01 10e3/ul Normal 0.00-0.03 [facility] Comment on above: Performed By: #### C BC #### [facility] [address] [place] [address] Dr. Troy Jeter IG % 0.3 % Normal 0.0-0.5 [facility] Comment on above: Performed By: #### C BC #### [facility] [address] [place] [address] Dr. Troy Jeter LYMPH # 0.6 103/ul Critically low 1.2-3.8 [facility] Comment on above: Performed By: #### C BC #### [facility] [address] [place] [address] Dr. Troy Jeter Lymphocytes/100 WBC (Bld) 18.4 % Critically low 20.5-60.0 [facility] Comment on above: Performed By: #### C BC #### [facility] [address] [place] [address] Dr. Troy Jeter MANUAL DIFF REQ NO Normal [facility] Comment on above: Performed By: #### C BC #### [facility] [address] [place] [address] Dr. Troy Jeter MCH (RBC) [Entitic mass] 27.0 pg Normal 26.7-34.0 [facility] Comment on above: Performed By: #### C BC #### [facility] [address] [place] [address] Dr. Troy Jeter MCHC (RBC) [Mass/Vol] 30.2 g/dL Normal 29.9-35.[address] [facility] Comment on above: Performed By: #### C BC #### [facility] [address] [place] [address] Dr. Troy Jeter MCV (RBC) [Entitic vol] 89.5 fL Normal 81.0-99.[address] [facility] Comment on above: Performed By: #### C BC #### [facility] [address] [place] [address] Dr. Troy Jeter MONO # 0.4 103/ul Normal 0.3-0.[address] [facility] Comment on above: Performed By: #### C BC #### [facility] [address] [place] [address] Dr. Troy Jeter Monocytes/100 WBC (Bld) 12.7 % Critically high 1.7-12.[address] [facility] Comment on above: Performed By: #### C BC #### [facility] [address] [place] [address] Dr. Troy Jeter NEUT # 2.2 103/ul Normal 1.4-6.[address] [facility] Comment on above: Performed By: #### C BC #### [facility] [address] [place] [address] Dr. Troy Jeter Neutrophils/100 WBC (Bld) 67.1 % Normal 43.0-75.[address] [facility] Comment on above: Performed By: #### C BC #### [facility] [address] [place] [address] Dr. Troy Jeter Platelet mean volume (Bld) [Entitic vol] 9.7 fL Normal 9.5-13.[address] [facility] Comment on above: Performed By: #### C BC #### [facility] [address] [place] [address] Dr. Troy Jeter PLT 140 103/ul Critically low 150-450 [facility] Comment on above: Performed By: #### C BC #### [facility] [address] [place] [address] Dr. Troy Jeter RBC 3.63 106/ul Critically low 4.20-5.40 [facility] Comment on above: Performed By: #### C BC #### [facility] [address] [place] [address] Dr. Troy Jeter WBC 3.3 103/ul Critically low 4.0-11.0 [facility] Comment on above: Performed By: #### C BC #### [facility] [address] [place] [address] Dr. Troy Jeter PROF 14(COMP METB)on 022 Albumin [Mass/Vol] 2.8 g/dL Critically low 3.4-5.0 [facility] Comment on above: Performed By: #### C BC #### [facility] [address] [place] [address] Dr. Troy Jeter Albumin/Globulin [Mass ratio] 0.9 {ratio} Normal [facility] Comment on above: Performed By: #### C BC #### [facility] [address] [place] [address] Dr. Troy Jeter ALP [Catalytic activity/Vol] 50 U/L Normal 46-116 [facility] Comment on above: Performed By: #### C BC #### [facility] [address] [place] [address] Dr. Troy Jeter ALT [Catalytic activity/Vol] 58 U/L Normal 14-59 [facility] Comment on above: Performed By: #### C BC #### [facility] [address] [place] [address] Dr. Troy Jeter Anion gap [Moles/Vol] 17.3 mmol/L Normal [facility] Comment on above: Performed By: #### C BC #### [facility] [address] [place] [address] Dr. Troy Jeter AST [Catalytic activity/Vol] 78 U/L Critically high 15-37 [facility] Comment on above: Performed By: #### C BC #### [facility] [address] [place] [address] Dr. Troy Jeter Bilirubin [Mass/Vol] 0.2 mg/dL Normal 0.2-1.0 [facility] Comment on above: Performed By: #### C BC #### [facility] [address] [place] [address] Dr. Troy Jeter Calcium [Mass/Vol] 8.0 mg/dL Critically low 8.5-10.1 [facility] Comment on above: Performed By: #### C BC #### [facility] [address] [place] [address] Dr. Troy Jeter Chloride [Moles/Vol] 112 mmol/L Critically high 98-107 [facility] Comment on above: Performed By: #### C BC #### [facility] [address] [place] [address] Dr. Troy Jeter CO2 [Moles/Vol] 17.0 mmol/L Critically low 21.0-32.0 [facility] Comment on above: Performed By: #### C BC #### [facility] [address] [place] [address] Dr. Troy Jeter Creatinine [Mass/Vol] 0.93 mg/dL Normal 0.55-1.02 [facility] Comment on above: Performed By: #### C BC #### [facility] [address] [place] [address] Dr. Troy Jeter EGFR-AF ANDORRAN >60 Normal >=60 [facility] Comment on above: Performed By: #### C BC #### [facility] [address] [place] [address] Dr. Troy Jeter EGFR-NON AF ANDORRAN >60 Normal >=60 [facility] Comment on above: Performed By: #### C BC #### [facility] [address] [place] [address] Dr. Troy Jeter Globulin (S) [Mass/Vol] 3.1 g/dL Normal [facility] Comment on above: Performed By: #### C BC #### [facility] [address] [place] [address] Dr. Troy Jeter Glucose [Mass/Vol] 77 mg/dL Normal 74-[address] [facility] Comment on above: Performed By: #### C BC #### [facility] [address] [address] [address] Troy Jeter Potassium [Moles/Vol] 3.3 mmol/L Critically low 3.5-5.1 [facility] Comment on above: Performed By: #### C BC #### [facility] [address] [address] [address] Troy Jeter Protein [Mass/Vol] 5.9 g/dL Critically low 6.4-8.2 [facility] Comment on above: Performed By: #### C BC #### [facility] [address] [address] [address] Troy Jeter Sodium [Moles/Vol] 143 mmol/L Normal 136-[address] [facility] Comment on above: Performed By: #### C BC #### [facility] [address] [place] [address] Dr. Troy Jeter Urea nitrogen [Mass/Vol] 12.0 mg/dL Normal 7.0-18.0 [facility] Comment on above: Performed By: #### C BC #### [facility] [address] [place] [address] Dr. Troy Jeter Urea nitrogen/Creatinine [Mass ratio] 12.9 mg/mg Normal [facility] Comment on above: Performed By: #### C BC #### [facility] [address] [place] [address] Dr. Troy Jeter CBC AUTO DIFFon 03-29-2022 BASO # 0.0 103/ul Normal 0.0-0.1 [facility] Comment on above: Performed By: #### C YTO #### [facility] [address] [place] [address] Dr. Troy Jeter Basophils/100 WBC (Bld) 0.2 % Normal 0.2-2.0 [facility] Comment on above: Performed By: #### C YTO #### [facility] [address] [place] [address] Dr. Troy Jeter EO # 0.0 103/ul Normal 0.0-0.7 [facility] Comment on above: Performed By: #### C YTO #### [facility] [address] [place] [address] Dr. Troy Jeter Eosinophils/100 WBC (Bld) 0.2 % Critically low 0.9-7.0 [facility] Comment on above: Performed By: #### C YTO #### [facility] [address] [place] [address] Dr. Troy Jeter Erythrocyte distribution width (RBC) [Ratio] 14.0 % Normal 11.0-15.0 [facility] Comment on above: Performed By: #### C YTO #### [facility] [address] [place] [address] Dr. Troy Jeter Hematocrit (Bld) [Volume fraction] 35.4 % Critically low 36.0-48.0 [facility] Comment on above: Performed By: #### C YTO #### [facility] [address] [place] [address] Dr. Troy Jeter Hemoglobin (Bld) [Mass/Vol] 10.9 g/dL Critically low 12.0-16.0 [facility] Comment on above: Performed By: #### C YTO #### [facility] [address] [place] [address] Dr. Troy Jeter IG # 0.03 10e3/ul Normal 0.00-0.03 [facility] Comment on above: Performed By: #### C YTO #### [facility] [address] [place] [address] Dr. Troy Jeter IG % 0.5 % Normal 0.0-0.5 [facility] Comment on above: Performed By: #### C YTO #### [facility] [address] [place] [address] Dr. Troy Jeter LYMPH # 0.3 103/ul Critically low 1.2-3.8 [facility] Comment on above: Performed By: #### C YTO #### [facility] [address] [place] [address] Dr. Troy Jeter Lymphocytes/100 WBC (Bld) 5.8 % Critically low 20.5-60.0 [facility] Comment on above: Performed By: #### C YTO #### [facility] [address] [place] [address] Dr. Troy Jeter MANUAL DIFF REQ NO Normal [facility] Comment on above: Performed By: #### C YTO #### [facility] [address] [place] [address] Dr. Troy Jeter MCH (RBC) [Entitic mass] 27.3 pg Normal 26.7-34.0 [facility] Comment on above: Performed By: #### C YTO #### [facility] [address] [place] [address] Dr. Troy Jeter MCHC (RBC) [Mass/Vol] 30.8 g/dL Normal 29.9-35.2 [facility] Comment on above: Performed By: #### C YTO #### [facility] [address] [place] [address] Dr. Troy Jeter MCV (RBC) [Entitic vol] 88.7 fL Normal 81.0-99.0 [facility] Comment on above: Performed By: #### C YTO #### [facility] [address] [place] [address] Dr. Troy Jeter MONO # 0.3 103/ul Normal 0.3-0.8 [facility] Comment on above: Performed By: #### C YTO #### [facility] [address] [place] [address] Dr. Troy Jeter Monocytes/100 WBC (Bld) 6.2 % Normal 1.7-12.0 [facility] Comment on above: Performed By: #### C YTO #### [facility] [address] [place] [address] Dr. Troy Jeter NEUT # 4.8 103/ul Normal 1.4-6.[address] [facility] Comment on above: Performed By: #### C YTO #### [facility] [address] [place] [address] Dr. Troy Jeter Neutrophils/100 WBC (Bld) 87.1 % Critically high 43.0-75.0 [facility] Comment on above: Performed By: #### C YTO #### [facility] [address] [address] [address] Troy Jeter Platelet mean volume (Bld) [Entitic vol] 9.6 fL Normal 9.5-13.5 [facility] Comment on above: Performed By: #### C YTO #### [facility] [address] [place] [address] Dr. Troy Jeter PLT 176 103/ul Normal 150-450 [facility] Comment on above: Performed By: #### C YTO #### [facility] [address] [place] [address] Dr. Troy Jeter RBC 3.99 106/ul Critically low 4.20-5.40 [facility] Comment on above: Performed By: #### C YTO #### [facility] [address] [place] [address] Dr. Troy Jeter WBC 5.5 103/ul Normal 4.0-11.0 [facility] Comment on above: Performed By: #### C YTO #### [facility] [address] [place] [address] Dr. Troy Jeter PROF 14(COMP METB)on 022 Albumin [Mass/Vol] 3.1 g/dL Critically low 3.4-5.0 [facility] Comment on above: Performed By: #### C YTO #### [facility] [address] [place] [address] Dr. Troy Jeter Albumin/Globulin [Mass ratio] 0.9 {ratio} Normal [facility] Comment on above: Performed By: #### C YTO #### [facility] [address] [place] [address] Dr. Troy Jeter ALP [Catalytic activity/Vol] 58 U/L Normal 46-116 [facility] Comment on above: Performed By: #### C YTO #### [facility] [address] [place] [address] Dr. Troy Jeter ALT [Catalytic activity/Vol] 49 U/L Normal 14-59 [facility] Comment on above: Performed By: #### C YTO #### [facility] [address] [address] [address] Troy Jeter Anion gap [Moles/Vol] 15.7 mmol/L Normal [facility] Comment on above: Performed By: #### C YTO #### [facility] [address] [address] [address] Troy Jeter AST [Catalytic activity/Vol] 59 U/L Critically high 15-37 [facility] Comment on above: Performed By: #### C YTO #### [facility] [address] [address] [address] Troy Jeter Bilirubin [Mass/Vol] 0.3 mg/dL Normal 0.2-1.0 [facility] Comment on above: Performed By: #### C YTO #### [facility] [address] [address] [address] Troy Jeter Calcium [Mass/Vol] 8.1 mg/dL Critically low 8.5-10.1 [facility] Comment on above: Performed By: #### C YTO #### [facility] [address] [address] [address] Troy Jeter Chloride [Moles/Vol] 110 mmol/L Critically high 98-107 [facility] Comment on above: Performed By: #### C YTO #### [facility] [address] [address] [address] Troy Jeter CO2 [Moles/Vol] 20.8 mmol/L Critically low 21.0-32.0 [facility] Comment on above: Performed By: #### C YTO #### [facility] [address] [address] [address] Tryo Jeter Creatinine [Mass/Vol] 0.94 mg/dL Normal 0.55-1.02 [facility] Comment on above: Performed By: #### C YTO #### [facility] [address] [address] [address] Troy Jeter EGFR-AF ANDORRAN >60 Normal >=60 [facility] Comment on above: Performed By: #### C YTO #### [facility] [address] [address] [address] Troy Jeter EGFR-NON AF ANDORRAN 60 mL/min/1.73m2 Normal >=60 [facility] Comment on above: Performed By: #### C YTO #### [facility] [address] [address] [address] Troy Jeter Globulin (S) [Mass/Vol] 3.4 g/dL Normal [facility] Comment on above: Performed By: #### C YTO #### [facility] [address] [address] [address] Troy Jeter Glucose [Mass/Vol] 95 mg/dL Normal 74-[address] [facility] Comment on above: Performed By: #### C YTO #### [facility] [address] [address] [address] Troy Jeter Potassium [Moles/Vol] 3.5 mmol/L Normal 3.5-5.1 [facility] Comment on above: Performed By: #### C YTO #### [facility] [address] [address] [address] Troy Jeter Protein [Mass/Vol] 6.5 g/dL Normal 6.4-8.2 [facility] Comment on above: Performed By: #### C YTO #### [facility] [address] [address] [address] Troy Jeter Sodium [Moles/Vol] 143 mmol/L Normal 136-145 [facility] Comment on above: Performed By: #### C YTO #### [facility] [address] [address] [address] Troy Jeter Urea nitrogen [Mass/Vol] 18.0 mg/dL Normal 7.0-18.0 [facility] Comment on above: Performed By: #### C YTO #### [facility] [address] [address] [address] Troy Jeter Urea nitrogen/Creatinine [Mass ratio] 19.1 mg/mg Normal [facility] Comment on above: Performed By: #### C YTO #### [facility] [address] [place] [address] Dr. Troy Jeter CBC W MANUAL DIFFon 03-28-20 22 ATYPICAL LYMPH # Normal [facility] Comment on above: Performed By: #### C YTO #### [facility] [address] [place] [address] Dr. Troy Jeter ATYPICAL LYMPH % Normal [facility] Comment on above: Performed By: #### C YTO #### [facility] [address] [place] [address] Dr. Troy Jeter BAND # 0.1 103/ul Normal 0.0-0.3 [facility] Comment on above: Performed By: #### C YTO #### [facility] [address] [place] [address] Dr. Troy Jeter BAND % 1 % Normal 0-5 [facility] Comment on above: Performed By: #### C YTO #### [facility] [address] [place] [address] Dr. Troy Jeter BASOM # 0.08 103/ul Normal 0.00-0.10 [facility] Comment on above: Performed By: #### C YTO #### [facility] [address] [place] [address] Dr. Troy Jeter BASOM % 1.0 % Normal 0.2-2.0 [facility] Comment on above: Performed By: #### C YTO #### [facility] [address] [place] [address] Dr. Troy Jeter BLAST # Normal [facility] Comment on above: Performed By: #### C YTO #### [facility] [address] [place] [address] Dr. Troy Jeter BLAST % Normal [facility] Comment on above: Performed By: #### C YTO #### [facility] [address] [place] [address] Dr. Troy Jeter CORRECTED WBC Normal 4.0-11.0 [facility] Comment on above: Performed By: #### C YTO #### [facility] [address] [place] [address] Dr. Troy Jeter EOS # 0.00 103/ul Normal 0.00-0.[address] [facility] Comment on above: Performed By: #### C YTO #### [facility] [address] [place] [address] Dr. Troy Jeter EOS% 0.0 % Critically low 0.9-7.0 [facility] Comment on above: Performed By: #### C YTO #### [facility] [address] [place] [address] Dr. Troy Jeter HCT 40.2 % Normal 36.0-48.0 [facility] Comment on above: Performed By: #### C YTO #### [facility] [address] [place] [address] Dr. Troy Jeter HGB 12.5 g/dl Normal 12.0-16.0 [facility] Comment on above: Performed By: #### C YTO #### [facility] [address] [place] [address] Dr. Troy Jeter LYMPHM # 0.23 103/ul Critically low 1.20-3.[address] [facility] Comment on above: Performed By: #### C YTO #### [facility] [address] [place] [address] Dr. Troy Jeter LYMPHM% 3.0 % Critically low 20.5-60.0 [facility] Comment on above: Performed By: #### C YTO #### [facility] [address] [place] [address] Dr. Troy Jeter MCH 27.1 pg Normal 26.7-34.[address] [facility] Comment on above: Performed By: #### C YTO #### [facility] [address] [place] [address] Dr. Troy Jeter MCHC 31.1 g/dl Normal 29.9-35.[address] [facility] Comment on above: Performed By: #### C YTO #### [facility] [address] [place] [address] Dr. Troy Jeter MCV 87.2 fL Normal 81.0-99.0 [facility] Comment on above: Performed By: #### C YTO #### [facility] [address] [place] [address] Dr. Troy Jeter METAMYELOCYTE # Normal [facility] Comment on above: Performed By: #### C YTO #### [facility] [address] [place] [address] Dr. Troy Jeter METAMYELOCYTE % Normal [facility] Comment on above: Performed By: #### C YTO #### [facility] [address] [place] [address] Dr. Troy Jeter MONOM# 0.08 103/ul Critically low 0.30-0.80 [facility] Comment on above: Performed By: #### C YTO #### [facility] [address] [place] [address] Dr. Troy Jeter MONOM% 1.0 % Critically low 1.7-12.0 [facility] Comment on above: Performed By: #### C YTO #### [facility] [address] [place] [address] Dr. Troy Jeter MPV 10.0 fL Normal 9.5-13.5 [facility] Comment on above: Performed By: #### C YTO #### [facility] [address] [place] [address] Dr. Troy Jeter MYELOCYTE # Normal [facility] Comment on above: Performed By: #### C YTO #### [facility] [address] [place] [address] Dr. Troy Jeter MYELOCYTE % Normal [facility] Comment on above: Performed By: #### C YTO #### [facility] [address] [place] [address] Dr. Troy Jeter NRBC Normal [facility] Comment on above: Performed By: #### C YTO #### [facility] [address] [place] [address] Dr. Troy Jeter PLT 230 103/ul Normal 150-[address] [facility] Comment on above: Performed By: #### C YTO #### [facility] [address], [place] [address] Dr. Troy Jeter RBC 4.61 106/ul Normal 4.20-5.40 [facility] Comment on above: Performed By: #### C YTO #### [facility] [address], [place] [address] Dr. Troy Jeter RDW 13.8 % Normal 11.0-15.0 [facility] Comment on above: Performed By: #### C YTO #### [facility] [address], [place] [address] Dr. Troy Jeter SEG # 7.14 103/ul Critically high 1.40-6.50 [facility] Comment on above: Performed By: #### C YTO #### [facility] [address] [place] [address] Dr. Troy Jeter SEG % 94.0 % Critically high 43.0-75.0 [facility] Comment on above: Performed By: #### C YTO #### [facility] [address] [address] [address] Troy Jeter WBC 7.6 103/ul Normal 4.0-11.0 [facility] Comment on above: Performed By: #### C YTO #### [facility] [address] [place] [address] ABD/PELVIS WO CONon [...] for this test is supported by the [place] of Health and Human Service's declaration that [...] longer be used). Performed By: #### C VDTBH #### [facility] [address] [place] [address] Dr. Troy Jeter ER URINE PROFILEon 2 Bilirubin Ql (U) Negative Normal NEGATIVE [facility] Comment on above: Performed By: #### C BC #### [facility] [address], [place] [address] Dr. Troy Jeter Clarity (U) CLEAR Normal CLEAR [facility] Comment on above: Performed By: #### C BC #### [facility] [address] [place] [address] Dr. Troy Jeter Color (U) LT. YELLOW Normal YELLOW [facility] Comment on above: Performed By: #### C BC #### [facility] [address] [place] [address] Dr. Troy Jeter ERUAHD A micrscopic examination will be performed if indicated. Normal [facility] Comment on above: Performed By: #### C BC #### [facility] [address] [place] [address] Dr. Troy Jeter Glucose Ql (U) Negative Normal NEGATIVE [facility] Comment on above: Performed By: #### C BC #### [facility] [address] [place] [address] Dr. Troy Jeter Hemoglobin Ql (U) SMALL Abnormal NEGATIVE [facility] Comment on above: Performed By: #### C BC #### [facility] [address] [place] [address] Dr. Troy Jeter Ketones Ql (U) Negative Normal NEGATIVE [facility] Comment on above: Performed By: #### C BC #### [facility] [address] [place] [address] Dr. Troy Jeter LEUKOCYTES Negative Normal NEGATIVE [facility] Comment on above: Performed By: #### C BC #### [facility] [address] [place] [address] Dr. Troy Jeter Nitrite Ql (U) Negative Normal NEGATIVE [facility] Comment on above: Performed By: #### C BC #### [facility] [address] [place] [address] Dr. Troy Jetre pH (U) 6.0 [pH] Normal 5-[address] [facility] Comment on above: Performed By: #### C BC #### [facility] [address] [place] [address] Dr. Troy Jeter SPEC GRAVITY 1.020 Normal 1.005-<=1.[address] [facility] Comment on above: Performed By: #### C BC #### [facility] [address] [place] [address] Dr. Troy Jeter UA PROTEIN Negative Normal NEGATIVE/ TRACE [facility] Comment on above: Performed By: #### C BC #### [facility] [address] [place] [address] Dr. Troy Jeter UR MICRO IND INDICATED Normal [facility] Comment on above: Performed By: #### C BC #### [facility] [address] [place] [address] Dr. Troy Jeter Urobilinogen Qn (U) 0.2 {Kriss'U}/dL Normal 0.2 - 1. 0 [facility] Comment on above: Performed By: #### C BC #### [facility] [address] [place] [address] Dr. Tory Jeter GI PANEL (PCR)on 03-28-2022 Adenovirus F 40/41 Not detected Normal NOT DETECTED [facility] Comment on above: Performed By: #### C YTO #### [facility] [address] [place] [address] Dr. Troy Jeter Astrovirus Not detected Normal NOT DETECTED [facility] Comment on above: Performed By: #### C YTO #### [facility] [address] [place] [address] Dr. Troy Cid. Diff toxin A/B Not detected Normal NOT DETECTED [facility] Comment on above: Performed By: #### C YTO #### [facility] [address] [place] [address] Dr. Troy Jeter Campylobacter Not detected Normal NOT DETECTED [facility] Comment on above: Performed By: #### C YTO #### [facility] [address] [place] [address] Dr. Troy Jeter Cryptosporidium Not detected Normal NOT DETECTED [facility] Comment on above: Performed By: #### C YTO #### [facility] [address] [place] [address] Dr. Troy Jeter Cyclos. Cayetanensis Not detected Normal NOT DETECTED [facility] Comment on above: Performed By: #### C YTO #### [facility] [address] [place] [address] Dr. Troy Jeter E. Coli O157 Not Applicable Normal Not Applicable [facility] Comment on above: Performed By: #### C YTO #### [facility] [address] [place] [address] Dr. Troy Jeter E. histolytica Not detected Normal NOT DETECTED [facility] Comment on above: Performed By: #### C YTO #### [facility] [address] [place] [address] Dr. Troy Jeter EAEC Not detected Normal NOT DETECTED [facility] Comment on above: Performed By: #### C YTO #### [facility] [address] [place] [address] Dr. Troy Jeter EIEC Not detected Normal NOT DETECTED [facility] Comment on above: Performed By: #### C YTO #### [facility] [address] [place] [address] Dr. Troy Jeter EPEC Not detected Normal NOT DETECTED [facility] Comment on above: Performed By: #### C YTO #### [facility] [address] [place] [address] Dr. Troy Jeter ETEC Not detected Normal NOT DETECTED [facility] Comment on above: Performed By: #### C YTO #### [facility] [address] [place] [address] Dr. Troy Jeter G. Lamblia Not detected Normal NOT DETECTED [facility] Comment on above: Performed By: #### C YTO #### [facility] [address] [place] [address] Dr. Troy BAILEYANEL CONTROLS PASSED Normal [facility] Comment on above: Performed By: #### C YTO #### [facility] [address] [place] [address] Dr. Troy PAYTON BAR HEADER GI PANEL BACTERIA Normal T [facility] Comment on above: Performed By: #### C YTO #### [facility] [address] [place] [address] Dr. Troy FERNANDEZLI GI PANEL DIARRHEAGEN IC E.COLI / SHIGELLA Normal [facility] Comment on above: Performed By: #### C YTO #### [facility] [address] [address] [address] Troy JIMENEZ INFO SEE BELOW Normal [facility] Comment on above: Result Comment: EAEC - Enteroaggregative E. Coli EPEC- Enteropathogenic E. Coli ETEC- Enterotoxigenic E. Coli lt/st STEC- Shigella-like toxin-producing E. Coli stx1/stx2 EIEC- Shigella/Enteroinvasive E. Coli Performed By: #### C YTO #### [facility] [address] [address] [address] Troy JIMENEZ PARASITES GI PANEL PARASITES Normal [facility] Comment on above: Performed By: #### C YTO #### [facility] [address] [place] [address] Dr. Troy JIMENEZ VIRUS GI PANEL VIRUSES Normal [facility] Comment on above: Performed By: #### C YTO #### [facility] [address] [place] [address] Dr. Troy Jeter Norovirus GI/GII Not detected Normal NOT DETECTED [facility] Comment on above: Performed By: #### C YTO #### [facility] [address] [place] [address] Dr. Troy Jeter P. Shigelloides Not detected Normal NOT DETECTED [facility] Comment on above: Performed By: #### C YTO #### [facility] [address] [place] [address] Dr. Troy Jeter Rotavirus A Detected Abnormal NOT DETECTED [facility] Comment on above: Performed By: #### C YTO #### [facility] [address] [place] [address] Dr. Troy Jeter Salmonella Not detected Normal NOT DETECTED [facility] Comment on above: Performed By: #### C YTO #### [facility] [address] [place] [address] Dr. Troy Jeter Sapovirus Not detected Normal NOT DETECTED [facility] Comment on above: Performed By: #### C YTO #### [facility] [address] [place] [address] Dr. Troy Jeter STEC Not detected Normal NOT DETECTED [facility] Comment on above: Performed By: #### C YTO #### [facility] [address] [place] [address] Dr. Tryo Jeter Vibrio Not detected Normal NOT DETECTED [facility] Comment on above: Performed By: #### C YTO #### [facility] [address] [place] [address] Dr. Troy Jeter Vibrio Cholera Not detected Normal NOT DETECTED [facility] Comment on above: Performed By: #### C YTO #### [facility] [address] [place] [address] Dr. Troy Jeter Y. Enterocolitica Not detected Normal NOT DETECTED [facility] Comment on above: Performed By: #### C YTO #### [facility] [address] [place] [address] Dr. Troy Jeter LACTATE/LACTIC ACIDon 2021 Lactate [Moles/Vol] 1.7 mmol/L Normal 0.4-1.9 [facility] Comment on above: Performed By: #### C BC #### [facility] [address] [place] [address] Dr. Troy Jeter LIPASEon 03-28-2022 Lipase [Catalytic activity/Vol] 135.0 U/L Normal 73.0-393.0 [facility] Comment on above: Performed By: #### L IPA, CMP #### [facility] [address] [place] [address] Dr. Troy Jeter PROF 14(COMP METB)on 022 Albumin [Mass/Vol] 3.9 g/dL Normal 3.4-5.0 [facility] Comment on above: Performed By: #### L IPA, CMP #### [facility] [address] [place] [address] Dr. Troy Jeter Albumin/Globulin [Mass ratio] 1.0 {ratio} Normal [facility] Comment on above: Performed By: #### L IPA, CMP #### [facility] [address] [address] [address] Troy Jeter ALP [Catalytic activity/Vol] 81 U/L Normal 46-116 [facility] Comment on above: Performed By: #### L IPA, CMP #### [facility] [address] [address] [address] Troy Jeter ALT [Catalytic activity/Vol] 45 U/L Normal 14-59 [facility] Comment on above: Performed By: #### L IPA, CMP #### [facility] [address] [address] [address] Troy Jeter Anion gap [Moles/Vol] 15.2 mmol/L Normal [facility] Comment on above: Performed By: #### L IPA, CMP #### [facility] [address] [address] [address] Troy Jeter AST [Catalytic activity/Vol] 42 U/L Critically high 15-37 [facility] Comment on above: Performed By: #### L IPA, CMP #### [facility] [address] [address] [address] Troy Jeter Bilirubin [Mass/Vol] 0.5 mg/dL Normal 0.2-1.0 [facility] Comment on above: Performed By: #### L IPA, CMP #### [facility] [address] [address] [address] Troy Jeter Calcium [Mass/Vol] 9.4 mg/dL Normal 8.5-10.[address] [facility] Comment on above: Performed By: #### L IPA, CMP #### [facility] [address] [address] [address] Troy Jeter Chloride [Moles/Vol] 105 mmol/L Normal 98-107 [facility] Comment on above: Performed By: #### L IPA, CMP #### [facility] [address] [address] [address] Troy Jeter CO2 [Moles/Vol] 23.7 mmol/L Normal 21.0-32.0 [facility] Comment on above: Performed By: #### L IPA, CMP #### [facility] [address] [address] [address] Troy Jeter Creatinine [Mass/Vol] 0.91 mg/dL Normal 0.55-1.02 [facility] Comment on above: Performed By: #### L IPA, CMP #### [facility] [address] [address] [address] Troy Jeter EGFR-AF ANDORRAN >60 Normal >=60 [facility] Comment on above: Performed By: #### L IPA, CMP #### [facility] [address] [address] [address] Troy Jeter EGFR-NON AF ANDORRAN >60 Normal >=60 [facility] Comment on above: Performed By: #### L IPA, CMP #### [facility] [address] [address] [address] Troy Jeter Globulin (S) [Mass/Vol] 4.0 g/dL Normal [facility] Comment on above: Performed By: #### L IPA, CMP #### [facility] [address] [address] [address] Troy Jeter Glucose [Mass/Vol] 119 mg/dL Critically high 74-106 [facility] Comment on above: Performed By: #### L IPA, CMP #### [facility] [address] [address] [address] Troy Jeter Potassium [Moles/Vol] 3.9 mmol/L Normal 3.5-5.1 [facility] Comment on above: Performed By: #### L IPA, CMP #### [facility] [address] [address] [address] Troy Jeter Protein [Mass/Vol] 7.9 g/dL Normal 6.4-8.2 [facility] Comment on above: Performed By: #### L IPA, CMP #### [facility] [address] [address] [address] Troy Jeter Sodium [Moles/Vol] 140 mmol/L Normal 136-[address] [facility] Comment on above: Performed By: #### L IPA, CMP #### [facility] [address] [place] [address] Dr. Troy Jeter Urea nitrogen [Mass/Vol] 16.0 mg/dL Normal 7.0-18.[address] [facility] Comment on above: Performed By: #### L IPA, CMP #### [facility] [address] [place] [address] Dr. Troy Jeter Urea nitrogen/Creatinine [Mass ratio] 17.6 mg/mg Normal [facility] Comment on above: Performed By: #### L IPA, CMP #### [facility] [address] [place] [address] Dr. Troy Jeter URINE MICROSCOPIC ONLYon BACTERIA TRACE Abnormal NONE SEEN [facility] Comment on above: Performed By: #### C BC #### [facility] [address] [place] [address] Dr. Troy Jeter Bacteria identified Cx Nom (U) NOT INDICATED Normal [facility] Comment on above: Performed By: #### C BC #### [facility] [address] [place] [address] Dr. Troy Jeter CAST NONE SEEN Normal NONE SEEN [facility] Comment on above: Performed By: #### C BC #### [facility] [address] [place] [address] Dr. Troy Jeter Crystals LM Nom (Urine sed) NONE SEEN Normal NONE SEEN [facility] Comment on above: Performed By: #### C BC #### [facility] [address] [place] [address] Dr. Troy Jeter Epithelial cells LM Ql (Urine sed) FEW Abnormal NONE SEEN /RARE [facility] Comment on above: Performed By: #### C BC #### [facility] [address] [place] [address] Dr. Troy Jeter MUCOUS NONE SEEN Normal NONE SEEN [facility] Comment on above: Performed By: #### C BC #### [facility] [address] [place] [address] Dr. Troy Jeter RBC 2-5 Abnormal 0-[address] [facility] Comment on above: Performed By: #### C BC #### [facility] [address], [place] [address] Dr. Troy Jeter WBC 0-2 Abnormal NONE SEEN [facility] Comment on above: Performed By: #### C BC #### [facility] [address], [place] [address] Dr. Troy Jeter [facility] Surgical Pathology Depar tmenton 08-13-2020 [facility] Surgical Pathology Department Name DANIELLA BEJARANO Pathologist: AMEE KELSEY DMD Date of Procedure: 08/13/2020 Date Received: 08/17/2020 Date Reported 08/25/2020 Submitting Physician: BUTCH LONG DDS Location: [facility] Other External # FINAL DIAGNOSIS A. LEFT LATERAL TONGUE, EXCISION: -- TRAUMATIC ULCER -- NEGATIVE FOR DYSPLASIA OR MALIGNANCY ICD-10/CPT: [id number] Electronically Signed Out By AMEE KELSEY DMD/ELIASS [...] sectioned and entirely submitted in 2 cassettes. JLM Summary of Cassettes: Specimen Label Site A 1 tips 2 body of ellipse jl/08/19/2020 [facility] Department of Pathology [id number] Normal [facility] Comment on above: Performed By: #### U [facility] #### [facility] Surgical Pathology Department [address] [facility] [address] Cardiovascular Lab Reporton 06-12-2020 Cardiovascular Lab Report [facility] #: [id number] Department [facility] Physician[facility] Krystal Bustos M.D. Division of Service Date: 06/11/2020 Cardiology Birthdate: 1960 Adult Cardiovascular Room #: [facility] [address] [facility]. [place] [id number] Cardiovascular Laboratory Report INDICATION: The patient a [...] informed consent. 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 The right neck area was prepped and draped in usual fashion. Using ultrasound guidance and micropuncture technique, the right internal jugular vein was accessed. A 6-Luxembourger x 11 cm sheath was placed. A 6-Luxembourger Duron catheter was used for right heart catheterization with measurement of pressures and calculation of cardiac output using the estimated Daysi method. Duron catheter was removed. Access in the right radial artery was obtained using micropuncture technique. A 6-Luxembourger x 11 cm Hydrophilic sheath was advanced. Verapamil was given through the sheath and heparin was administered intravenously. Note that modified David's test was favorable on the right. Initial catheter advancement was made, feasible using an angled Glidewire to overcome a radial artery loop, following which bilateral selective coronary angiography was performed using 6-Luxembourger JL3.5 and JR5 diagnostic catheter. Catheters were [...] Bustos M.D. Date Trans: 06/12/2020 04:00 A/marguerite DN_[id number] cc: Bayron Singh M.D. [address] [place] [address] Normal [facility] *SARS-CoV-2 COVID-19on 06-09 [id number] Not Detected Normal Not Detected [facility] Comment on above: Order Comment: The A ptima SARS-CoV-2 assay is a nucleic acid amplification test intended for the qualitative detection of RNA from SARS-CoV-2 isolated and purified from nasopharyngeal (CHANNELER INSOLE),oropharyngeal (OP), nasal swab, sputum, and bronchoalveolar lavage (BAL) specimens from patients with signs and symptoms of infection who are suspected of COVID-19. Results are for the identification of SARS-CoV-2 RNA. The SARS-CoV-2 RNA is generally detectable during the acute phase of infection. The Aptima SARS-CoV-2 Assay on the xoompark and xoompark Fusion system is intended for use by laboratory personnel specifically instructed and trained in the operation of the [place] and [place] Oak Fusion system. The Aptima SARS-CoV-2 assay is [...] information. Performed By: #### 3 1792 #### [address] Chidi 02-17-2020 CNPN Telephone (HEMASA) DANIELLA BEJARANO ([id number]) 1960 F Date Time Provider Department 02/17/20 BONNY FELIPE During your visit today, we recorded the following information about you: Ai Adam [facility] 02/17/2020 2:53 PM Signed Records faxed to [facility]. Allergies As of Date: 02/17/2020 (No [...] Status:Closed by AI COLVIN on 02/17/20 Normal [facility] Vital Signs Date Time Vital Sign Value Performing Clinician Facility 04-26-2023 10:40-0400 Heart rate 84 /min [facility] 04-26-2023 10:40-0400 SaO2% (BldA) [Mass fraction] 98 % [facility] 04-26-2023 10:40-0400 Body temperature 97.52 [degF] [facility] 04-26-2023 10:39-0400 Diastolic blood pressure 75 mm[Hg] [facility] 04-26-2023 10:39-0400 Mean blood pressure 87 mm[Hg] [facility] 04-26-2023 10:39-0400 Systolic blood pressure 111 mm[Hg] [facility] 04-26-2023 10:39-0400 Respiratory rate 16 /min [facility] 01-04-2023 08:01-0500 Blood Pressure Location Dina Reza [facility] 01-04-2023 08:01-0500 Diastolic blood pressure 82 mm[Hg] Dina Lue [facility] 01-04-2023 08:01-0500 Heart rate 71 /min Dina Lue [facility] 01-04-2023 08:01-0500 Systolic blood pressure 124 mm[Hg] Dina Lue [facility] 10-26-2022 10:26-0500 Blood Pressure Location AI RUY [facility] 10-26-2022 10:26-0500 Diastolic blood pressure 84 mm[Hg] AI RUY [facility] 10-26-2022 10:26-0500 Heart rate 65 /min AI RUY [facility] 10-26-2022 10:26-0500 Respiratory rate 16 /min AI RUY [facility] 10-26-2022 10:26-0500 Systolic blood pressure 123 mm[Hg] AI RUY [facility] 10-19-2022 08:01-0500 Blood Pressure Location Dina Lue [facility] 10-19-2022 08:01-0500 Diastolic blood pressure 64 mm[Hg] Dina Lue [facility] 10-19-2022 08:01-0500 Heart rate 66 /min Dina Lue [facility] 10-19-2022 08:01-0500 Systolic blood pressure 145 mm[Hg] Dina Lue [facility] 10-12-2022 08:11-0500 Blood Pressure Location Dina Lue [facility] 10-12-2022 08:11-0500 Diastolic blood pressure 68 mm[Hg] Dina Lue [facility] 10-12-2022 08:11-0500 Heart rate 74 /min Dina Lue [facility] 10-12-2022 08:11-0500 Respiratory rate 16 /min Dina Lue [facility] 10-12-2022 08:11-0500 Systolic blood pressure 132 mm[Hg] Dina Lue [facility] 07-06-2022 10:28-0400 Blood Pressure Location Dina Lue [facility] 07-06-2022 10:28-0400 Diastolic blood pressure 62 mm[Hg] Dina Lue [facility] 07-06-2022 10:28-0400 Heart rate 74 /min Dina Lue [facility] 07-06-2022 10:28-0400 Respiratory rate 16 /min Dina Lue [facility] 07-06-2022 10:28-0400 Systolic blood pressure 98 mm[Hg] Dina Lue [facility] 03-02-2022 09:27-0400 Blood Pressure Location AI MITCHELL [facility] 03-02-2022 09:27-0400 Diastolic blood pressure 66 mm[Hg] AI DAVIDRY [facility] 03-02-2022 09:27-0400 Heart rate 64 /min AI MITCHELL [facility] 03-02-2022 09:27-0400 Systolic blood pressure 137 mm[Hg] AI DAVIDRY [facility] 02-09-2022 08:17-0400 Blood Pressure Location Dina Lue [facility] 02-09-2022 08:17-0400 Diastolic blood pressure 64 mm[Hg] Dina Lue [facility] 02-09-2022 08:17-0400 Heart rate 60 /min [facility]ue [facility] 02-09-2022 08:17-0400 Respiratory rate 16 /min [facility] 02-09-2022 08:17-0400 Systolic blood pressure 133 mm[Hg] [facility] 02-02-2022 08:03-0400 Blood Pressure [facility] 02-02-2022 08:03-0400 Diastolic blood pressure 100 mm[Hg] [facility] 02-02-2022 08:03-0400 Heart rate 72 /min [facility] 02-02-2022 08:03-0400 Systolic blood pressure 144 mm[Hg] [facility] 01-26-2022 08:18-0400 Blood Pressure [facility] 01-26-2022 08:18-0400 Diastolic blood pressure 75 mm[Hg] [facility] 01-26-2022 08:18-0400 Heart rate 56 /min [facility] 01-26-2022 08:18-0400 Systolic blood pressure 128 mm[Hg] [facility] Encounters Encounter Date Encounter Type Care Provider Facility Start: 04-10-2024 End: 04-10-2024 [facility] Start: 03-19-2024 End: 03-19-2024 ambulatory JENN VIEIRA [facility] Start: 02-14-2024 End: 02-14-2024 ambulatory MD Bayron Singh Work Phone: [facility] Work Phone: Start: 02-14-2024 End: 02-14-2024 Departed Referred MD Bayron Singh Work Phone: [facility] Start: 02-13-2024 End: 02-13-2024 ambulatory Jeff Cordova Facility:[facility] Start: 02-09-2024 End: 02-09-2024 ambulatory [facility] Start: 02-09-2024 End: 02-09-2024 Encounter for preprocedural cardiovascular examination [facility] Start: 01-24-2024 End: 01-25-2024 ambulatory MYRNA CORDOVA Not Available Start: 01-10-2024 ambulatory [facility] Start: 01-02-2024 End: 01-02-2024 ambulatory [facility] Start: 11-15-2023 End: 11-15-2023 ambulatory BAYRON SINGH Not Available Start: 10-04-2023 ambulatory [facility] Start: 06-28-2023 End: 06-28-2023 ambulatory [facility] Start: 06-02-2023 End: 06-02-2023 ambulatory [facility] Start: 05-26-2023 End: 05-26-2023 ambulatory [facility] Start: 05-19-2023 End: 05-19-2023 ambulatory [facility] Start: 05-16-2023 ambulatory AI E RUY Facili ty:[facility] Start: 05-12-2023 End: 05-12-2023 ambulatory [facility] Start: 05-09-2023 ambulatory AI E RUY Facili ty:[facility] Start: 05-05-2023 End: 05-05-2023 ambulatory [facility] Start: 04-28-2023 End: 04-28-2023 ambulatory [facility] Start: 04-26-2023 End: 04-27-2023 ambulatory Jeff Booth Facility:[facility] Start: 04-26-2023 End: 04-26-2023 Patient encounter procedure Jeff Booth [facility] Start: 04-25-2023 ambulatory AI Vergara ty:[facility] Start: 03-08-2023 Encounter for genera l adult medical examination without abnormal findings DR BAYRON SINGH [facility] Start: 03-06-2023 End: 03-07-[address] BAYRON SINGH Facility:[facility] Start: 03-02-2023 End: 03-03-[address] BAYRON SINGH Facility:[facility] Start: 03-02-2023 End: 03-03-2023 Encounter for general adult medical examination without abnormal findings DR BAYRON SINGH Facility:[facility] Start: 01-04-2023 End: 01-05-2023 ambulatory Dina Cobb Facility:[facility] Start: 01-04-2023 End: 01-04-2023 Patient encounter procedure Dina Cobb [facility] Start: 01-02-2023 ambulatory Dina Cobb Facility:[facility] Start: 12-28-2022 End: 12-29-2022 ambulatory DINA COBB . Facility:[facility] Start: 12-25-2022 Encounter for preprocedural cardiovascular examination DINA COBB . [facility] Start: 12-21-2022 End: 12-22-2022 ambulatory DINA COBB . Facility:[facility] Start: 12-21-2022 End: 12-22-2022 Encounter for preprocedural cardiovascular examination DINA COBB . Facility:[facility] Start: 12-14-2022 End: 12-15-2022 ambulatory Jeannejavon Fitzpatrick Facility:[facility] Start: 12-14-2022 End: 12-14-2022 Lab Drop off Blanca Chris Amari [facility] Start: 12-14-2022 End: 12-14-2022 Patient encounter procedure Dina M. Lue [facility] Start: 12-07-2022 End: 12-08-2022 ambulatory DINA COBB . Facility: Start: 11-23-2022 End: 11-24-[address] BAYRON SINGH Facility: Start: 11-05-2022 End: 11-05-[address] BAYRON SINGH Facility: Start: 10-28-2022 ambulatory Dina Robertoe Facility:[facility] Start: 10-26-2022 End: 10-26-2022 Patient encounter procedure AI MITCHELL [facility] Start: 10-26-2022 End: 10-27-2022 ambulatory AI MITCHELL Facility:[facility] Start: 10-19-2022 End: 10-20-2022 ambulatory Dina M. Lue Facility:[facility] Start: 10-19-2022 End: 10-19-2022 Patient encounter procedure Dina M. Lue [facility] Start: 10-12-2022 End: 10-13-2022 ambulatory Dina M. Lue Facility:[facility] Start: 10-12-2022 End: 10-12-2022 Patient encounter procedure Dina M. Lue [facility] Start: 10-05-2022 ambulatory Dina Lue Facility:[facility] Start: 09-02-2022 End: 09-03-[address] MICAELA DE . Facility: Start: 08-10-2022 End: 08-11-2022 ambulatory DINA M LUE . Facility: Start: 07-22-2022 End: 07-23-2022 ambulatory DINA M LUE . Facility: Start: 07-06-2022 End: 07-07-2022 ambulatory Dina M. Lue Facility:[facility] Start: 07-06-2022 End: 07-06-2022 Patient encounter procedure Dina M. Lue [facility] Start: 07-01-2022 End: 07-02-2022 ambulatory DINA M LUE . Facility: Start: 06-29-2022 End: 06-30-2022 ambulatory Dina M. Lue Facility:[facility] Start: 06-29-2022 End: 06-29-2022 Patient encounter procedure Dina M. Lue [facility] Start: 06-22-2022 End: 06-22-2022 Patient encounter procedure Dina M. Lue [facility] Start: 05-26-2022 End: 05-27-[address] BAYRON SINGH Facility: Start: 05-18-2022 End: 05-18-2022 Patient encounter procedure Dina M. Lue [facility] Start: 05-11-2022 End: 05-11-2022 ambulatory DINA M LUE . Facility: Start: 05-09-2022 Encounter for preprocedural laboratory examination DINA M NEVILLEE . [facility] Start: 05-04-2022 End: 05-05-2022 ambulatory DINA COBB . Facility:[facility] Start: 05-04-2022 End: 05-05-2022 Encounter for preprocedural laboratory examination DINA COBB . Facility:[facility] Start: 04-27-2022 End: 04-27-2022 ambulatory DINA COBB . Facility:[facility] Start: 04-11-2022 End: 04-12-[address] BAYRON SINGH Facility:[facility] Start: 03-28-2022 End: 03-31-[address] BAYRON SINGH Facility:[facility] Start: 03-25-2022 End: 03-25-2022 Lab Drop off Loco MARRERO [facility] Start: 03-25-2022 End: 03-25-2022 Patient encounter procedure Loco MARRERO [facility] Start: 03-02-2022 End: 03-02-2022 Patient encounter procedure AI MITCHELL [facility] Start: 02-09-2022 End: 02-09-2022 Patient encounter procedure Dina Cobb [facility] Start: 02-02-2022 End: 02-02-2022 Patient encounter procedure Dina Cobb [facility] Start: 01-26-2022 End: 01-26-2022 Lab Drop off Dina Cobb [facility] Start: 01-26-2022 End: 01-26-2022 Patient encounter procedure Dina M. Nevillejavon [facility] Start: 06-11-2020 End: 06-12-2020 Patient encounter procedure PROVIDER UNKNOWN Facility:[facility] Procedures Date Procedure Procedure [...] nestor vaccine AI MITCHELL [facility] 10-19-2022 bacillus calmette-gu nestor vaccine Dina Lue [facility] 10-12-2022 bacillus calmette-gu nestor vaccine Dina Lue [facility] 09-02-2022 SARS-CoV-2 (COVID-19 ) mRNA-1273 vaccine Dina Lue [facility] 08-04-2022 influenza virus vacc ine, unspecified formulation Dina Lue [facility] 07-26-2022 bacillus calmette-gu nestor vaccine Dina Lue [facility] 07-06-2022 bacillus calmette-gu nestor vaccine Dina Lue [facility] 06-29-2022 bacillus calmette-gu nestor vaccine Dina Lue [facility] 06-22-2022 bacillus calmette-gu nestor vaccine Dina Lue [facility] 03-02-2022 bacillus calmette-gu nestor vaccine AI RUY [facility] 02-23-2022 bacillus calmette-gu nestor vaccine IA RUY [facility] 02-16-2022 bacillus calmette-gu nestor vaccine AI RUY [facility] 02-09-2022 bacillus calmette-gu nestor vaccine Dina Lue [facility] 02-02-2022 bacillus calmette-gu nestor vaccine Dina Lue [facility] 01-26-2022 bacillus calmette-gu nestor vaccine Dina Lue [facility] 12-17-2021 pneumococcal polysaccharide vaccine, 23 valent Dina Lue [facility] 10-27-2021 bacillus calmette-gu nestor vaccine Dina Lue [facility] 10-19-2021 bacillus calmette-gu nestor vaccine Dina Lue [facility] 10-13-2021 bacillus calmette-gu nestor vaccine Dina Lue [facility] 10-06-2021 bacillus calmette-gu nestor vaccine Dina Lue [facility] 09-29-2021 bacillus calmette-gu nestor vaccine Dina Lue [facility] 09-22-2021 bacillus calmette-gu nestor vaccine Dina Lue [facility] 08-20-2021 SARS-CoV-2 (COVID-19 ) [id number] vaccine Dina Lue [facility] 08-19-2021 influenza virus vacc ine, unspecified formulation AI MITCHELL [facility] 07-30-2021 influenza virus vacc ine, unspecified formulation Dina Cobb [facility] 11-26-2020 SARS-CoV-2 (COVID-19 ) mRNA-1273 vaccine Dina Lue [facility] 10-28-2020 SARS-CoV-2 (COVID-19 ) mRNA-1273 vaccine Dina Lue [facility] 07-18-2018 influenza virus vacc ine, unspecified formulation Dina Cobb [facility] 07-30-2015 pneumococcal polysaccharide vaccine, 23 valent Dina Cobb [facility] Payers Date Payer Category Payer Self-pay [id number] 2022 Unknown [id number] 2019 Unknown [id number] 1959 Self-pay [id number] 1959 Unknown [id number] 1960 Unknown [id number] 2.16.8 40.1.868785.3.579.2.647 1960 Unknown [id number] 2.16.84 0.1.406540.3.579.2.593 1960 Unknown [id number] 2.16.84 0.1.701218.3.579.2.593 1960 Unknown [id number] 2.16.84 0.1.328309.3.579.2.593 1960 Unknown [id number] 2.16.84 0.1.948047.3.579.2.593 1960 Unknown [id number] 2.16.84 0.1.576641.3.579.2.593 1958 Unknown [id number] 2.16.84 0.1.321212.3.579.2.593 1958 Unknown [id number] 2.16.84 0.1.884829.3.579.2.593 1958 Unknown [id number] 2.16.84 0.1.483551.3.579.2.593 1958 Unknown [id number] 2.16.84 0.1.997672.3.579.2.593 1958 Unknown [id number] 2.16.84 0.1.475079.3.579.2.593 1958 Unknown [id number] 2.16.84 0.1.606195.3.579.2.593 1958 Unknown [id number] 2.16.84 0.1.595073.3.579.2.593 1958 Unknown [id number] 2.16.84 0.1.702445.3.579.2.593 1958 Unknown [id number] 2.16.84 0.1.411569.3.579.2.593 1958 Unknown [id number] 2.16.84 0.1.231017.3.579.2.593 1958 Unknown [id number] 2.16.84 0.1.281012.3.579.2.593 1958 Unknown [id number] 2.16.8 40.1.829063.3.579.2.727 1960 Unknown [id number] 2.16.8 40.1.017398.3.579.2.727 1958 Unknown [id number] 2.16.8 40.1.603783.3.579.2.727 1958 Unknown [id number] 2.16.8 40.1.124574.3.579.2.727 1958 Unknown [id number] 2.16.8 40.1.542896.3.579.2.727 1958 Unknown [id number] 2.16.8 40.1.166445.3.579.2.72 1958 Unknown [id number] 2.16.8 40.1.922719.3.579.2.727 1958 Unknown [id number] 2.16.8 40.1.264282.3.579.2.72 1958 Unknown [id number] 2.16.8 40.1.091139.3.579.2.72 1958 Unknown [id number] 2.16.8 40.1.386097.3.579.2.72 1958 Unknown [id number] 2.16.8 40.1.371989.3.579.2.72 1958 Unknown [id number] 2.16.8 40.1.923074.3.579.2. 1958 Unknown [id number] 2.16.8 40.1.012416.3.579.2.727 1958 Unknown [id number] 2.16.8 40.1.839245.3.579.2.72 1958 Unknown [id number] 2.16.8 40.1.528960.3.579.2.727 1958 Unknown [id number] 2.16.8 40.1.049833.3.579.2.72 1958 Unknown [id number] 2.16.8 40.1.084404.3.579.2.727 1958 Unknown [id number] 2.16.8 40.1.769973.3.579.2.72 1958 Unknown [id number] 2.16.8 40.1.007649.3.579.2.727 1958 Unknown [id number] 2.16.84 0.1.997040.3.579.2.1259 1958 Unknown [id number] 2.16.84 0.1.757582.3.579.2.1259 Unknown [id number] 2.16.84 0.1.645434.3.579.2.593 Unknown [id number] 2.16.8 40.1.047221.3.579.2.531 Social History Date Type Detail Facility Start: 03-27-2020 End: 01-26-2022 Tobacco smoking status Ex-smoker (finding) [facility] Tobacco smoking status Never [facility] Sex Assigned At Female [facility] Start: 1960 Sex Assigned At Female [facility] Functional Status Date Assessment Result Facility 01-04-2023 Functional Status N/A [facility] 10-26-2022 Functional Status N/A [facility] 10-19-2022 Functional Status N/A [facility] 10-12-2022 Functional Status N/A [facility] 07-06-2022 Functional Status N/A [facility] 06-22-2022 Functional Status N/A [facility] 05-18-2022 Functional Status N/A [facility] Clinical Notes 01-26-2022 to 04-10-2024 Note Date & Type Note Facility 04-10-2024 Note A. Satisfactory for evaluation. Examination of the ThinPrep slide reveals a hypocellular specimen containing scattered squamous cells and rare urothelial cells. [facility] Comment on above: Order Comment: Via jose roberto reyes Performed By: #### L [id number] ####[facility] ([place])[address] [place] [address] 04-10-2024 Note I PATIENT: Daniella Bejarano DATE [...] recurrent bladder tumor. 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 - 01/26/2022: [...] diagnosis bilaterally. Therefore she was referred to tx for further management. Ms. Bejarano underwent white [...] of malignancy, th (more content not included)... [facility] 04-10-2024 Note Patient ID: Daniella Bejarano is [...] the procedure room for the entire procedure. [facility] 04-03-2024 Note 04-03-24@ 0715 Colonos copy with EMR procedure note along with pathology results faxed to referring office of Dr. Myrna Cordova @[phone]. [facility] 03-19-2024 Note Patient: Daniella stevens Procedure Summary Date: 03/19/24 Room / Location: [facility] Anesthesia Start: 1143 Anesthesia Stop: 1316 Procedure: DIAGNOSTIC COLONOSCOPY Diagnosis: Adenomatous polyp of colon, unspecified part of colon Scheduled Providers: Jenn Vieira MD; JOAN Bateman; Lázaro Lopes MD Responsible [...] Hydration status: balanced No notable events documented. [facility] 03-19-2024 Note Airway Date/Time: 03/19/2024 11:51 AM Urgency: elective General Information and Staff Patient location during procedure: OR Anesthesiologist: Lázaro Lopes MD Resident/DRILL PUNCH OPERATOR/CAA: Kurtis Regalado DO Performed: resident/DRILL PUNCH OPERATOR/CAA Indications and Patient Condition Indications for airway [...] 1 Number of other approaches attempted: 0 [facility] 03-19-2024 Note Patient: Daniella stevens Procedure Information Date/Time: 03/19/24 1115 Scheduled providers: Jenn Vieira MD; JOAN Bateman; Lázaro Lopes MD Procedure: DIAGNOSTIC COLONOSCOPY Location: [facility] Relevant Problems Anesthesia (+) Obstructive sleep apnea syndrome Cardio Denies chest pain/SOB ECHO 2019 normal Lv fn, EF 60% (+) Aneurysm [...] risks discussed with patient. Plan discussed with JOAN. 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 Do not wear perfume, make-up, nail citizen of [place], or lotions on the day of your [...] need to make any changes, please call [phone]. Notify your surgeon if you develop any illness such as a cold, cough, fever, sore throat or vomiting between now and your surgery. Thank you for entrusting us with your care. [facility] Surgical Services Team [facility] 02-09-2024 Note RCRI= 1???points Cla ss II Risk 6.0???% 30-day risk of , [place], or cardiac arrest From a cardiac perspective pt may proceed with colonoscopy, she is a low risk for a low risk procedure. She may hold Aspirin if absolutely needed. Please monitor hemodynamics carefully and prevent any major fluid shifts. This is good for 6 months [facility] 02-09-2024 Note Hypertension is well controlled Continue olmesartan, and start toprol Renal function stable [facility] 02-09-2024 Note Noted sinus tachycar apollo with occasional PACs and PVCs- will start toprol 25 mg daily for management D/W pt to call office for low b/p, fatigue, lightheadedness/dizziness. Or any concerns [facility] 02-09-2024 Note Patient here for fol low [...] All other systems reviewed and are negative. [facility] 02-09-2024 Note UTP CARDIOLOGY PROGR ESS NOTE [facility] HPI: Daniella Bejarano is a 63 [...] the proximal t (more content not included)... [facility] 01-10-2024 Note Satisfactory for michele luation. Examination of the ThinPrep slide reveals a hypocellular specimen consisting of benign urothelial cells and squamous cells. [facility] Comment on above: Order Comment: Via c ysto Performed By: #### L [id number] #### [facility] ([facility]) [address] [place] [address] 01-10-2024 Note Patient ID: Daniella Bejarano is [...] the procedure room for the entire procedure. [facility] 01-10-2024 Note I PATIENT: Daniella Bejarano DATE [...] recurrent bladder tumor. 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 - 01/26/2022: [...] diagnosis bilaterally. Therefore she was referred to tx for further management. Ms. Bejarano underwent white [...] of malignancy, th (more content not included)... [facility] 01-02-2024 Note 2-3 day holter monit or today to assess for any arrythmias, PVC burden Check BMP and mag level today to assess electrolyte level She may benefit from beta neal dependent upon holter results [facility] 01-02-2024 Note C/O worsening SOB wi th exertion and edema, will check echocardiogram to assess cardiac function, RV function and rt sided pressures, valvular function [facility] 01-02-2024 Note stable [facility] 01-02-2024 Note Hypertension is well controlled currently 124/80 Continue olmesartan 40 mg daily. Depending upon holter monitor result she may benefit from a beta neal for frequent PVCs and palpitations [facility] 01-02-2024 Note Patient here c/o SOB , [...] All other systems reviewed and are negative. [facility] 01-02-2024 Note UTP CARDIOLOGY PROGR ESS NOTE [...] 0 [DISCONTINUED] ergocalciferol (Vitamin D-2) 1.25 MG (03569 Units) capsule Take by mouth. [DISCONTINUED] oxybutynin [...] - 1.02 mg/dL 1.07 High TBH EGFR-AF ANDORRAN >=60 >60 TBH EGFR-NON AF ANDORRAN >=60 51 Low BUN CREATININE RATIO 13.1 CALCIUM 8. (more content not included)... [facility] 10-04-2023 Note Satisfactory for michele luation. Examination of the ThinPrep slide reveals benign urothelial cells and squamous cells in a background of lubricant. [facility] Comment on above: Order Comment: Argelia reyes Performed By: #### L [id number] #### [facility] ([facility]) [address] [place] [address] 10-04-2023 Note Patient ID: Daniella Bejarano is [...] the procedure room for the entire procedure. [facility] 10-04-2023 Note I PATIENT: Daniella Bejarano [...] recurrent bladder tumor. 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 - 01/26/2022: [...] of malignancy, th (more content not included)... [facility] 06-28-2023 Note Satisfactory for michele luation. Examination of the ThinPrep slide reveals squamous cells and scattered urothelial cells in a background of few inflammatory cells and lubricant. [facility] Comment on above: Order Comment: Via jose roberto reyes Performed By: #### L [id number] #### [facility] ([place]) [address] [place] [address] 06-28-2023 Note Patient ID: Daniella Bejarano is [...] the procedure room for the entire procedure. [facility] 06-28-2023 Note I PATIENT: Daniella Bejarano [...] recurrent bladder tumor. 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 - 01/26/2022: [...] diagnosis bilaterally. Therefore she was referred to tx for further management. Ms. 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 [facility] 06-02-2023 Note Bernarda Hagan RN e [...] Center. Bernarda Hagan RN then informed Infusion nurse receptionist that Daniella A Neikirk was ready for treatment. [facility] 05-26-2023 Note Danielle Briggs MA expl [...] [place] [id number] down to the Infusion Center. Danielle Briggs MA then informed Infusion nurse receptionist that Daniella A Neikirk was ready for treatment. [facility] 05-19-2023 Note 7991 Zaria Jackson exp [...] well. After gutierrez was in place, Daniella Dillikirk was placed in a wheelchair, given her bag of personal belongings, then transported by [id number] down to the Infusion Center. 7991 then informed Infusion nurse receptionist that Daniella Wallsrmario was ready for treatment. [facility] 05-12-2023 Note 1110 Patient arrived by [...] drugs, at separate times, intravesicular instillations. CPetersRN [facility] 05-12-2023 Note 7991Zaria irizarry ained the procedure to Daniella Perez Neikirk and Daniella Dillikirk verbalized understanding. Daniella Wallsrk was then placed on the exam table [...] the Infusion Center. 7991 then informed Infusion nurse receptionist that Daniella Wallsrmario was ready for treatment. [facility] 05-05-2023 Note 1040- pt arrived to [...] or spasms.gutierrez catheter removed after completely drained. [facility] 05-05-2023 Note Zaria Jackson explaine d the [...] Center. 7991 Zaria Mayfield then informed Infusion nurse receptionist that Daniella A Neikirk was ready for treatment. [facility] 04-28-2023 Note Pt arrived with fole y in place from urology clinic draining clear yellow urine. Docetaxel instilled and held 60 minutes, drained to gutierrez bag. Gemcitabine instilled and held 60 minutes, drained to gutierrez bag. Gutierrez removed upon completion, tolerated treatment well. Reviewed home precautions with patient. [facility] 04-28-2023 Note 7991 Zaria Jackson exp [...] bag of personal belongings, then transported by [id number] down to the Infusion Center. 7991 then informed [facility] nurse receptionist that Daniella Bejarano was ready for treatment. Zaheer Briggs [facility] 01-04-2023 Hospital Discharge instructions Patient Education [...] cells. Follow these instructions at home: Take mdhe-ppq-dxhutbj and prescription medicines only as told by [...] is important. Where to find more information [place] [employer]: www.cancer.org National Cancer Chappells (NCI): www.cancer.gov Contact a health care provider [...] 10/18/2004 Document Revised: 09/28/2018 Document Reviewed: 09/19/2017 [employer] Patient Education 2020 [employer]. Follow Up Care 01/02/2023 12:19:37 With:Dina Cobb MD, URL, URO Address: When: Unknown [facility] 10-19-2022 Hospital Discharge instructions Patient Education [...] cells. Follow these instructions at home: Take brwm-bxu-anacnxi and prescription medicines only as told by [...] is important. Where to find more information [place] [employer]: www.cancer.org National Cancer Chappells (NCI): www.cancer.gov Contact a health care provider [...] 10/18/2004 Document Revised: 09/28/2018 Document Reviewed: 09/19/2017 [employer] Patient Education 2020 [employer]. [facility] 10-12-2022 Hospital Discharge instructions Patient Education 10/12/2022 [...] cells. Follow these instructions at home: Take vnpu-uel-qfxijwr and prescription medicines only as told by [...] is important. Where to find more information [place] [employer]: www.cancer.org National Cancer Chappells (NCI): www.cancer.gov Contact a health care provider [...] 10/18/2004 Document Revised: 09/28/2018 Document Reviewed: 09/19/2017 [employer] Patient Education 2020 [employer]. Follow Up Care 08/22/2022 12:52:59 With:Reza JAMES, ISAIAH Mckeon, URO Address: When:1 week Comments:BCG #2 of #3 [facility] 10-05-2022 Hospital Discharge instructions Follow Up Care 10/05/2022 15:19:40 With:RUY VALLE, AI Alejandro, URL Address: [address] [place] [address] When: Unknown [facility] 07-06-2022 Hospital Discharge instructions Patient Education 07/06/2022 [...] cells. Follow these instructions at home: Take nonr-rtp-nfbhbmm and prescription medicines only as told by [...] is important. Where to find more information [place] [employer]: www.cancer.org National Cancer Chappells (NCI): www.cancer.gov Contact a health care provider [...] 10/18/2004 Document Revised: 09/28/2018 Document Reviewed: 09/19/2017 [employer] Patient Education 2020 [employer]. Follow Up Care 05/18/2022 11:12:11 With:Reza JAMES, ISAIAH Mckeon, URO Address: When: Unknown [facility] 06-29-2022 Hospital Discharge instructions Patient [...] cells. Follow these instructions at home: Take zmqn-ysa-rneblnq and prescription medicines only as told by [...] is important. Where to find more information [place] [employer]: www.cancer.org National Cancer Chappells (NCI): www.cancer.gov Contact a health care provider [...] 10/18/2004 Document Revised: 09/28/2018 Document Reviewed: 09/19/2017 [employer] Patient Education 2019 [employer]. Follow Up Care 05/18/2022 11:11:14 With:Dina Cobb MD, URL, URO Address: When:Within 1 Week(s) Comments:BCG #3 [facility] 06-22-2022 Hospital Discharge instructions Patient [...] cells. Follow these instructions at home: Take yqsv-reb-zfghoba and prescription medicines only as told by [...] is important. Where to find more information [place] [employer]: www.cancer.org National Cancer Chappells (NCI): www.cancer.gov Contact a health care provider [...] 10/18/2004 Document Revised: 09/28/2018 Document Reviewed: 09/19/2017 [employer] Patient Education 2020 [employer]. Follow Up Care 05/18/2022 11:09:55 With:Reza JAMES, ISAIAH Mckeon, URO Address: When:1 week Comments:bcg #2 [facility] 05-18-2022 Hospital Discharge instructions Patient [...] cells. Follow these instructions at home: Take opzg-cjk-vqplrjm and prescription medicines only as told by [...] is important. Where to find more information [place] [employer]: www.cancer.org National Cancer Chappells (NCI): www.cancer.gov Contact a health care provider [...] 10/18/2004 Document Revised: 09/28/2018 Document Reviewed: 09/19/2017 [employer] Patient Education 2020 [employer]. Follow Up Care 05/12/2022 12:08:46 With:Reza JAMES, ISAIAH Mckeon, URO Address: When:1 month [facility] 03-17-2022 Hospital Discharge instructions Follow Up Care 03/17/2022 16:12:48 With:Jeff Booth Address: [facility] [address] [place] [address] [phone] Fax Business (1) When: Unknown Comments:f/u 1 year. no labs. [facility] 03-02-2022 Hospital Discharge instructions Patient Education [...] cells. Follow these instructions at home: Take gzvl-vrf-mrszgrb and prescription medicines only as told by [...] is important. Where to find more information [place] [employer]: www.cancer.org National Cancer Chappells (NCI): www.cancer.gov Contact a health care provider [...] 10/18/2004 Document Revised: 09/28/2018 Document Reviewed: 09/19/2017 [employer] Patient Education 2020 [employer]. Follow Up Care 12/29/2021 09:06:11 With:AI MITCHELL PA-C, URL Address: [address] [place] [address] When: Unknown Comments:follow up after cysto with [facility] 02-09-2022 Hospital Discharge instructions Patient Education 02/09/2022 [...] cells. Follow these instructions at home: Take fctv-vyu-zpnnsai and prescription medicines only as told by [...] is important. Where to find more information [place] [employer]: www.cancer.org National Cancer Chappells (NCI): www.cancer.gov Contact a health care provider [...] 10/18/2004 Document Revised: 09/28/2018 Document Reviewed: 09/19/2017 [employer] Patient Education 2020 [employer] Follow Up Care 12/29/2021 09:03:01 With:Reza JAMES, ISAIAH Mckeon, URO Address: When: Unknown [facility] Hospital Discharge instructions Patient Education 02/02/2022 [...] cells. Follow these instructions at home: Take ftms-dic-yyfuhco and prescription medicines only as told by [...] is important. Where to find more information [place] [employer]: www.cancer.org National Cancer Chappells (NCI): www.cancer.gov Contact a health care provider [...] 10/18/2004 Document Revised: 09/28/2018 Document Reviewed: 09/19/2017 [employer] Patient Education 2020 [employer]. Follow Up Care 12/29/2021 09:02:14 With:Reza JAMES, ISAIAH Mckeon, URO Address: When: Unknown [facility] Hospital Discharge instructions Patient Education 01/26/2022 [...] cells. Follow these instructions at home: Take dewc-chu-hfknprv and prescription medicines only as told by [...] is important. Where to find more information [place] [employer]: www.cancer.org National Cancer Chappells (NCI): www.cancer.gov Contact a health care provider [...] 10/18/2004 Document Revised: 09/28/2018 Document Reviewed: 09/19/2017 [employer] Patient Education 2020 [employer]. Follow Up Care 12/29/2021 08:59:52 With:Dina Cobb MD, URL, URO Address: [address] [place] [address] [phone] Business (1) When: Unknown [facility] Evaluation + Plan note Future Appointments Appointment Date:02/02/2022 08:00:00 AM Scheduled Provider:Dina Cobb MD Location:[facility] Appointment Type:URO Office Visit Appointment Date:02/09/2022 08:00:00 AM Scheduled Provider:Dina Cobb MD Location[facility] Appointment Type:URO Office Visit Appointment Date:02/16/2022 08:00:00 AM Scheduled Provider:Dina Cobb MD Location:[facility] Appointment Type:URO Office Visit Appointment Date:02/23/2022 08:00:00 AM Scheduled Provider:Dina Cobb MD Location:[facility] Appointment Type:URO Office Visit Appointment Date:03/02/2022 09:30:00 AM Scheduled Provider:Dina Cobb MD Location:[facility] Appointment Type:URO Office Visit Appointment Date:03/17/2022 03:00:00 PM Scheduled Provider:Jeff Booth DO Location:.ONCOLOGY Appointment Type:ONC Office Visit (FT) [facility] Evaluation + Plan note Future Appointments Appointment Date:02/02/2022 08:00:00 AM Scheduled Provider:Dina Cobb MD Location:[facility] Appointment Type:URO Office Visit Appointment Date:02/09/2022 08:00:00 AM Scheduled Provider:Dina Cobb MD Location:[facility] Appointment Type:URO Office Visit Appointment Date:02/16/2022 08:00:00 AM Scheduled Provider:Dina Cobb MD Location:[facility] Appointment Type:URO Office Visit Appointment Date:02/23/2022 08:00:00 AM Scheduled Provider:Dina Cobb MD Location:[facility] Appointment Type:URO Office Visit Appointment Date:03/02/2022 09:30:00 AM Scheduled Provider:Dina Cobb MD Location:[facility] Appointment Type:URO Office Visit Appointment Date:03/17/2022 03:00:00 PM Scheduled Provider:Jeff Booth DO Location:.ONCOLOGY Appointment Type:ONC Office Visit New 30 (FT) Diagnostic Tests PendingUrine Culture 01/26/22 [facility] Evaluation + Plan note Future Appointments Appointment Date:02/09/2022 08:00:00 AM Scheduled Provider:Dina Cobb MD Location[facility] Appointment Type:URO Office Visit Appointment Date:02/16/2022 08:00:00 AM Scheduled Provider:Dina Cobb MD Location:[facility] Appointment Type:URO Office Visit Appointment Date:02/23/2022 08:00:00 AM Scheduled Provider:Dina Cobb MD Location:[facility] Appointment Type:URO Office Visit Appointment Date:03/02/2022 09:30:00 AM Scheduled Provider:Dina Cobb MD Location:[facility] Appointment Type:URO Office Visit Appointment Date:03/17/2022 03:00:00 PM Scheduled Provider:Jeff Booth DO Location:.ONCOLOGY Appointment Type:ONC Office Visit New 30 (FT) [facility] Evaluation + Plan note Future Appointments Appointment Date:02/16/2022 08:00:00 AM Scheduled Provider:Dina Cobb MD Location:[facility] Appointment Type:URO Office Visit Appointment Date:02/23/2022 08:00:00 AM Scheduled Provider:Dina Cobb MD Location[facility] Appointment Type:URO Office Visit Appointment Date:03/02/2022 09:30:00 AM Scheduled Provider:Dina Cobb MD Location:[facility] Appointment Type:URO Office Visit Appointment Date:03/17/2022 03:00:00 PM Scheduled Provider:Jeff Booth DO Location:FT.ONCOLOGY Appointment Type:ONC Office Visit New 30 (FT) [facility] Evaluation + Plan note Future Appointments Appointment Date:03/17/2022 03:00:00 PM Scheduled Provider:Jeff Booth DO Location:FT.ONCOLOGY Appointment Type:ONC Office Visit New 30 (FT) [facility] Evaluation + Plan note Future Appointments Appointment Date:03/15/2023 12:30:00 PM Scheduled Provider:Jeff Booth DO Location:FT.ONCOLOGY Appointment Type:ONC Office Visit 15 (FT) Diagnostic Tests PendingUrine Culture 03/25/22 [facility] Evaluation + Plan note Future Appointments Appointment Date:03/15/2023 12:30:00 PM Scheduled Provider:Jeff Booth DO Location:FT.ONCOLOGY Appointment Type:ONC Office Visit 15 (FT) [facility] Evaluation + Plan note Future Appointments Appointment Date:06/22/2022 10:15:00 AM Scheduled Provider:Dina Cobb MD Location[facility] Appointment Type:URO Office Visit Appointment Date:06/29/2022 10:15:00 AM Scheduled Provider:Dina Cobb MD Location:[facility] Appointment Type:URO Office Visit Appointment Date:07/06/2022 10:15:00 AM Scheduled Provider:Dina Cobb MD Location:[facility] Appointment Type:URO Office Visit Appointment Date:03/15/2023 12:30:00 PM Scheduled Provider:Jeff Booth DO Location:FT.ONCOLOGY Appointment Type:ONC Office Visit 15 (FT) [facility] Evaluation + Plan note Future Appointments Appointment Date:06/29/2022 07:45:00 AM Scheduled Provider:Dina Cobb MD Location:[facility] Appointment Type:URO Office Visit Appointment Date:07/06/2022 10:15:00 AM Scheduled Provider:Dina Cobb MD Location:[facility] Appointment Type:URO Office Visit Appointment Date:03/15/2023 12:30:00 PM Scheduled Provider:Jeff Booth DO Location:FT.ONCOLOGY Appointment Type:ONC Office Visit 15 (FT) [facility] Evaluation + Plan note Future Appointments Appointment Date:07/06/2022 10:15:00 AM Scheduled Provider:Dina Cobb MD Location:[facility] Appointment Type:URO Office Visit Appointment Date:03/15/2023 12:30:00 PM Scheduled Provider:Jeff Booth DO Location:FT.ONCOLOGY Appointment Type:ONC Office Visit 15 (FT) Diagnostic Tests PendingBUN 06/29/22Creatinine 06/29/22 [facility] Evaluation + Plan note Future Appointments Appointment Date:10/19/2022 08:00:00 AM Scheduled Provider:Dina Cobb MD Location:[facility] Appointment Type:URO Office Visit Appointment Date:10/26/2022 10:30:00 AM Scheduled Provider:AI MITCHELL PA-C Location:[facility] Appointment Type:URO Office Visit Appointment Date:03/15/2023 12:30:00 PM Scheduled Provider:Jeff Booth DO Location:FT.ONCOLOGY Appointment Type:ONC Office Visit 15 (FT) [facility] Evaluation + Plan note Future Appointments Appointment Date:10/26/2022 10:30:00 AM Scheduled Provider:AI MITCHELL PA-C Location:[facility] Appointment Type:URO Office Visit Appointment Date:03/15/2023 12:30:00 PM Scheduled Provider:Jeff Booth DO Location:FT.ONCOLOGY Appointment Type:ONC Office Visit 15 (FT) [facility] Evaluation + Plan note Future Appointments Appointment Date:03/15/2023 12:30:00 PM Scheduled Provider:Jeff Booth DO Location:FT.ONCOLOGY Appointment Type:ONC Office Visit 15 (FT) Diagnostic Tests PendingUrine Culture 12/14/22 [facility] Evaluation + Plan note Future Appointments Appointment Date:04/24/2024 11:00:00 AM Scheduled Provider:Jeff Booth DO Location:FT.ONCOLOGY Appointment Type:ONC Office Visit 15 (FT) [facility] Evaluation note No assessment inform ation available [facility] Work Phone: Hospital course Narrative No data available for this section [facility] Hospital Discharge instructions No data available for this section [facility] Progress note No data available for this section [facility] Summary Purpose Family History No Family History [...] section and content) DATE CREATED AUTHOR 06/24/2020 [facility] DATE CREATED AUTHOR AUTHOR'S ORGANIZ ATION 09/01/2020 [facility] DATE CREATED AUTHOR AUTHOR'S ORGANIZ ATION 11/21/2020 [facility] DATE CREATED AUTHOR AUTHOR'S ORGANIZ ATION 03/09/2023 [facility] DATE CREATED AUTHOR AUTHOR'S ORGANIZ ATION 06/28/2023 [facility] DATE CREATED AUTHOR AUTHOR'S ORGANIZ ATION 02/19/2024 [facility] DATE CREATED AUTHOR AUTHOR'S ORGANIZ ATION 02/24/2024 [facility] DATE CREATED AUTHOR AUTHOR'S ORGANIZ ATION 04/13/2024 [facility] Care Team (unrecognized sect ion and content) Team Status: Active Member Role Status Dates Bayron Singh MD Primary Care Provider Active Team Status: Inactive Member Role Status Dates Bayron Singh MD Primary Care Provider Active S tart: February 14, 2024 End: February 14, 2024 Jeff Cordova Attending Provider Active Start: February 14, 2024 [...] BE BASED ON THE PRIMARY CLINICAL RECORDS. [employer] provides no warranty or guarantee of the accuracy or completeness of information in this document.
[2024-05-23 07:06] LABS: Basophils Percent Auto 0.8 % (0.2-2.0); Eosinophils Absolute Auto 0.1 10^3/uL (0.0-0.7); Eosinophils Percent Auto 2.5 % (0.9-7.0); Hematocrit 37.5 % (36.0-48.0); Hemoglobin 11.9 g/dL (12.0-16.0); Immature Granulocytes Abs Auto 0.02 10^3/uL (0.00-0.03); Immature Granulocytes Pct Auto 0.4 % (0.0-0.5); Lymphocytes Absolute Auto 1.4 10^3/uL (1.2-3.8); Lymphocytes Percent Auto 27.2 % (20.5-60.0); Mean Corpuscular HGB Conc 31.7 g/dL (29.9-35.2); Mean Corpuscular Hemoglobin 28.4 pg (26.7-34.0); Mean Corpuscular Volume 89.5 fL (81.0-99.0); Mean Platelet Volume 9.5 fL (9.5-13.5); Monocytes Absolute Auto 0.5 10^3/uL (0.3-0.8); Monocytes Percent Auto 10.4 % (1.7-12.0); Neutrophils Percent Auto 58.7 % (43.0-75.0); Platelet Count 169 10^3/uL (150-450); Red Blood Count 4.19 10^6/uL (4.20-5.40); Red Cell Distribution Width 14.7 % (11.0-15.0); White Blood Count 5.2 10^3/uL (4.0-11.0)
[2024-05-23 08:44] LABS: Estimated Average Glucose 117 mg/dL; Glycohemoglobin A1C 5.7 % (4.5-6.2)
[2024-05-23 10:44] LABS: Alanine Aminotransferase 71 U/L (14-59); Albumin Globulin Ratio 0.9; Albumin Level 3.4 g/dL (3.4-5.0); Alkaline Phosphatase 89 U/L (46-116); Anion Gap 14.3; Aspartate Amino Transferase 63 U/L (15-37); BUN Creatinine Ratio 16.2; Bilirubin Direct 0.1 mg/dL (0.0-0.2); Bilirubin Total 0.5 mg/dL (0.2-1.0); Calcium 9.6 mg/dL (8.5-10.1); Carbon Dioxide 27.5 mmol/L (21.0-32.0); Chloride 107 mmol/L (98-107); Chol HDL Ratio 2.8; Cholesterol 152 mg/dL (<=200); Estimated GFR (African America >60 (>=60); Estimated GFR (Non-African Ame 53 (>=60); Globulin 3.6 g/dL; Glucose 125 mg/dL (74-106); HDL Cholesterol 55 mg/dL (40-60); LDL Cholesterol Calculated 71.2 mg/dL; Potassium 4.8 mmol/L (3.5-5.1); Sodium 144 mmol/L (136-145); Triglycerides 129 mg/dL (<=150); VLDL CHOLESTEROL 25.8 mg/dL
== END 2024-05-23 06:40 | disposition home or self-care (01) ==
LOC: LAB 06:42
PROVIDERS: PCP Family Medicine; Visit Provider Family Medicine
DX: Z00.00 Encounter for general adult medical examination without abnormal findings (principal)
CPT/HCPCS: 36415; 80048; 80061; 80076; 83036; 84443; 85025

== ENCOUNTER 2024-08-12 12:04 | Outpatient (OUT) | payer BC, SELFPAY ==
--- OUTSIDE RECORDS SUMMARY | 2024-08-12 12:20 | XMS_ITS | CCD ---
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 Name Role Phone UNKNOWN, PROVIDER Admitting Unavailable UNKNOWN, PROVIDER Attending Unavailable SELF, REFERRED Referring Unavailable BAYRON SINGH Primary Care Unavailable SHANTAEREBAYRON Narvaez Primary Care Physician [phone] LUE ., DINA M Attending Unavailable LUE ., DINA M Admitting Unavailable LUE ., DINA M Consulting Unavailable NADERER, DR BAYRON Perez Primary Care Unavailable LUE ., DINA M Attending Unavailable LUE ., DINA M Admitting Unavailable [place], DR SPARKLE Napoles Consulting Unavailable NADERER, DR BAYRON Perez Primary Care Unavailable LUE ., DINA Sneed Consulting Unavailable NADERER, DR BAYRON Perez Primary Care Unavailable FAWWAD, OCLLAZO H Admitting Unavailable FAWWAD, COLLAZO H Attending [...] NADERER, DR BAYRON Perez Primary Care Unavailable NADERESloange, DR BAYRON Perez Attending Unavailable NADERER, DR [...] Unavailable KATKO, KAYKAY Navarro Admitting Unavailable KATKO, KYAKAY Navarro Attending Unavailable MAC ., LAVERNE Consulting Unavailable NADERER, DR BAYRON Perez Primary Care Unavailable NADERER, DR BAYRON Perez Attending Unavailable NADERER, DR BARYON Perez Admitting Unavailable HOY ., DR HINOJOSA [...] NADERER, DR BAYRON Perez Primary Care Unavailable MD Bayron Singh Primary Care Provider Jeff Cordova Attending Provider [phone] Jeff Cordova Attending Unavailable Jeff Cordova Admitting Unavailable Bayron Singh Primary Care Unavailable FRANCISCO, BAYRON Attending Unavailable MYRNA CORDOVA Attending Unavailable SHANTAERESolange, BAYRON Referring Unavailable NADERESolange, BAYRON Attending Unavailable Jeff Booth Referring Unavailable Jeff Booth Attending Unavailable JEREMIAH, OZZY Attending Unavailable DIETER, FIRAS Attending Unavailable DIETER, FIRAS Attending Unavailable JENN VIEIRA Admitting Unavailable NAJENN HARRIS Attending Unavailable MYRNA CORDOVA Referring Unavailable DIETER, FIRAS Attending Unavailable JEREMIAH, OZZY Attending Unavailable DIETER, FIRAS Attending Unavailable Allergies Allergy Classification Reported Allergen(s) Allergy Type Date of Onset Reaction(s) Facility (20 sources) Acetaminophen / oxyCODONE; 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: [acetaminophen-ox ycodone] Drug Allergy Headache (finding) [facility] (1 source) Acetaminophen / oxyCODONE Drug Allergy 9 [facility] Repository (1 source) Acetaminophen / oxyCODONE; 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: [OXYCODONE-ACETAM INOPHEN] Drug Allergy 3 [facility] Repository Medications Current Medications Medication Drug [...] 2020 12:00am estradiol 0.1 mg/ml vaginal cream (11 sources) Estrogen Start: 06-22-2022 Estrace 0.1 mg/g Cream See Instructions, 42.5 gm, Refill(s) 2, Apply a pea size amount around the urethra and vagina, 3x a wk for 4 wks, then 2x a week afterwards., [facility]/pharmacy #[id number], 163, cm, 06/22/22 8:33:00 EDT, Height/Length Dosing, 115, kg, 06/22/22 8:33:00 EDT, Weight Dosing Start Date: 06/22/22 Status: Ordered fluconazole 150 mg oral tablet (2 sources) Azole Antifungal Start: 02-15-2023 take 1 tablet by mouth once Diflucan 150 mg Tab 150 mg = 1 tab(s), Oral, Once, # 1 tab(s), Refills(s) 0, Pharmacy: [facility]/pharmacy #[id number], 163, cm, 10/26/22 10:27:00 EST, Height/Length Dosing, 115, kg, 10/26/22 10:27:00 EST, Weight Dosing Start Date: 12/14/22 Status: Ordered furosemide 20 mg oral tablet (19 sources) Loop Diuretic Start: 07-07-2021 take 1 [...] Daily, # 30 tab(s), Refills(s) 11, [id number], 163, cm, 01/04/23 8:04:00 EST, Height/Length Dosing, 115, kg, 01/04/23 8:04:00 EST, Weight Dosing Start Date: 01/04/23 Status: Ordered Start: 10-14-2022 take 1 tablet by justo once daily Myrbetriq 50 mg oral tablet, extended release 50 mg = 1 tab(s), Oral, Daily, # 30 tab(s), Refills(s) 11, Pharmacy: [facility]/pharmacy #[id number], 163, cm, 10/12/22 8:12:00 EST, Height/Length Dosing, 115, kg, 10/12/22 8:12:00 EST, Weight Dosing Start Date: 10/14/22 Status: Ordered multivitamin with minerals (2 sources) Start: 04-26-2023 take 1 tablet by mouth once daily multivitamin with minerals 1 tab, Oral, Daily, Refill(s) 0 Start Date: 04/26/23 Status: Ordered nabumetone 750 mg oral tablet (2 sources) Nonsteroidal Anti-inflammatory Drug Start: 04-26-2023 take 1 [...] Ordered Start: 03-26-2020 take 1 tablet by [facility] once daily Olmesartan (Benicar) 20 mg Tablet [...] pantoprazole 40 mg delayed release oral tablet (12 sources) Proton Pump Inhibitor Start: 07-07-2021 take 1 mg by mouth twice daily Protonix 40 mg Tab-DR mg tab(s), Oral, BID, Refills(s) 0 Start Date: 07/07/21 Status: Ordered Potassium Chloride (2 sources) Start: 04-26-2023 take 20 mg by mouth [...] Ordered solifenacin succinate 10 mg oral tablet (19 sources) Cholinergic Muscarinic Antagonist Start: 05-18-2022 take 1 tablet by mouth once daily Vesicare 10 mg Tab 10 mg = 1 tab(s), Oral, Daily, # 90 tab(s), Refills(s) 3, Pharmacy: [facility]/pharmacy #[id number], 163, cm, 05/18/22 10:12:00 EDT, Height/Length Dosing, 115, kg, 05/18/22 10:12:00 EDT, Weight Dosing Start Date: 05/18/22 Status: Ordered Start: 10-13-2021 take 1 tablet by [facility] once daily Vesicare 10 mg Tab 10 mg = 1 tab(s), Oral, Daily, # 30 tab(s), Refills(s) 5, Pharmacy: [facility]/pharmacy #[id number], 163, cm, 10/13/21 9:52:00 EST, [...] 1 tablet day of treatment after treatment, [facility]/pharmacy #[id number], 163, cm, 05/18/22 10:12:00 EDT, Height/Length Dosing, 115, kg, 05/18/22 10:12:00 EDT, Weight Dosing Start Date: 05/18/22 Status: Ordered Start: 02-02-2022 Bactrim DS 800 mg-160 mg Tab 1 tab(s), Oral, Daily, 10 tab(s), Refill(s) 0, Prophylaxis for BCG, take day before and day of, [facility]/pharmacy #[id number], 163, cm, 02/02/22 8:04:00 EDT, Height/Length Dosing, 115, kg, 02/02/22 8:04:00 EDT, Weight Dosing Start Date: 02/02/22 Status: Ordered Start: 01-26-2022 Bactrim DS 800 mg-160 mg Tab 1 tab(s), Oral, q12hr, 2 tab(s), Refill(s) 6, [facility]/pharmacy #[id number], 163, cm, 01/26/22 8:21:00 EDT, Height/Length Dosing, 115, kg, 01/26/22 8:21:00 EDT, Weight Dosing Start Date: 01/26/22 Status: Ordered vibegron 75 MG Oral Tablet [Gemtesa] (2 sources) Start: 01-05-2023 take 1 tablet by mouth once daily Gemtesa 75 mg oral tablet 75 mg = 1 tab(s), Oral, Daily, # 30 tab(s), Refills(s) 3, Pharmacy: [facility]/pharmacy #[id number], 163, cm, 01/04/23 8:04:00 EST, Height/Length Dosing, 115, kg, 01/04/23 8:04:00 EST, Weight Dosing Start Date: 01/05/23 Status: Ordered Vitamin D (19 sources) Start: 07-07-2021 Vitamin D International_Unit, Oral, [...] procedure., # 1 tab(s), Refills(s) 0, Pharmacy: [facility]/pharmacy #[id number], 163, cm, 06/22/22 8:33:00 EDT, [...] Da te Episodic/Chronic Bacterial infection; unspecified site (19 sources) Infection due to enterococcus 09-29-2021 Episodic Cancer of bladder (20 sources) Malignant neoplasm, overlapping lesion of bladder; 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: [Malignant neoplasm of overlapping sites of bladder] Onset: 01-26-2022 Chronic Cancer of breast (3 sources) Personal history of malignant neoplasm of breast; 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: [History of malignant neoplasm of breast] Onset: 11-07-2022 03-27-2020 Episodic Essential hypertension (3 sources) Essential (primary) hypertension; 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: [ESSENTIAL PRIMARY HYPERTENSION] Onset: 11-07-2022 Chronic Genitourinary symptoms and ill-defined conditions (20 sources) Incontinence; 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: [Mixed incontinence] Onset: 01-09-2023 07-14-2021 Chronic Genitourinary symptoms and ill-defined conditions (20 sources) History of urinary tract infection; 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: [Personal history of urinary (tract) infections] Onset: 01-26-2022 Episodic Menopausal disorders (18 sources) Atrophic vaginitis; 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: [Postmenopausal atrophic vaginitis] Onset: 06-22-2022 Chronic Osteoarthritis (5 sources) Primary generalized (osteo)arthritis; 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: [Unspecified osteoarthritis, unspecified site] Onset: 11-07-2022 Chronic Other aftercare (1 source) Other residential (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; 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: [OTH INTERMEDIATE CURRENT DRUG THERAPY] Onset: 12-25-2022 Episodic Other aftercare (1 source) 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; 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: [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 FUELER CURRENT USE OF ASPIRIN] Onset: 12-13-2022 Episodic Other and ill-defined heart disease (2 sources) Coronary artery aneurysm; 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: [Coronary artery aneurysm] Onset: 01-02-2024 Chronic Other diseases of bladder and urethra (12 sources) Detrusor overactivity; 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: [Overactive bladder] Onset: 01-26-2022 Chronic Other diseases of bladder and urethra (19 sources) Overactive bladder 07-14-2021 Chronic Other diseases of bladder and urethra (1 source) Overactive bladder; 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: [OVERACTIVE BLADDER] Onset: 01-09-2023 Chronic Other nutritional; endocrine; and metabolic disorders (19 sources) Body mass index 40+ - severely [...] of mental health and substance abuse codes (20 sources) Ex-smoker; 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: [Personal history of nicotine dependence] Onset: 01-09-2023 09-08-2021 Episodic Unclassified (1 source) CONTACT W/AND (SUSP) EXPOS COVID-19; 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: [CONTACT W/AND (SUSP) EXPOS COVID-19] Onset: 04-04-2022 Urinary tract infections (20 sources) Urinary tract infectious disease; 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: [Urinary tract infection, site not specified] Onset: 07-22-2022 09-22-2021 Episodic Past or Other Problems Problem Classification Problem Date Documented Da te Episodic/Chronic Cancer of bladder (5 sources) Personal history of malignant neoplasm of bladder; 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: [PERSONAL HX MALIG NEOPLASM BLADDER] Onset: 04-27-2022 Episodic Cardiac dysrhythmias (4 sources) Palpitations; 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: [Tachycardia, unspecified] Onset: 02-09-2024 Episodic E Codes: Fall (1 source) Fall [...] BEHAVIOR OF BLADDER] Onset: 05-09-2022 Episodic Other and unspecified benign neoplasm (2 sources) Benign neoplasm of colon, unspecified; 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: [Benign neoplasm of colon, unspecified] Onset: 03-19-2024 Episodic Other connective tissue disease (3 sources) [...] Test Name Value Interpretation Reference Range Facility NON-CASTING CARRIER CYTOLOGY - CELLULAR EXAMon 07-10-2024 LAB AP CASE REPORT [facility] Comment on above: Order Comment: Via c ysto Result Comment: Non- gynecologic Cytology Case: [id number] Authorizing Provider: Lisa Zelaya MD Collected: 07/10/2024 1433 Ordering Location: [facility] Received: 07/10/2024 1433 Urology Pathologist: Sarah Mckenna MD Specimen: Bladder washing Performed By: #### L [id number] #### [facility] [address] [place] [address] LAB AP CLINICAL INFORMATION Order Diagnoses Normal [facility] Comment on above: Order Comment: Via c ysto Result Comment: C67. 4 - Malignant neoplasm of posterior wall of urinary bladder (CMS/HCC) [ICD-10-CM] Performed By: #### L [id number] #### [facility] [address] [place] [address] LAB AP GROSS DESCRIPTION [place] Comment on above: Order Comment: Via c ysto Result Comment: 13.5 mL clear, pale yellow fluid Performed By: #### L [id number] #### [facility] [address] [place] [address] LAB AP REPORT FINAL DIAGNOSIS NARRATIVE Normal [facility] Comment on above: Order Comment: Via c ysto Result Comment: A. B ladder, washing: - Nondiagnostic. - Scant cellularity due to obscuring lubricant. Performed By: #### L [id number] #### [facility] [address] [place] [address] Procedure Visiton 07-10-2024 Procedure Visit [id number] Wali Bejarano 1960 F Date Provider Department Center 07/10/2024 397-[facility] ZEL[address] [facility] Family History Problem Relation Age of Onset Hypertension Mother Atrial fibrillation Mother Other Sister Coronary artery disease Brother Hypertension Brother Family Status - Relation Status Age at Mother Sister Brother Level of Service:17543 SD OFFICE/OUTPATIENT ESTABLISHED LOW MDM 20 MIN Reason for Visit and Comments: Follow-up [799188] [place] NON-CASTING CARRIER CYTOLOGY - CELLULAR EXAMon 04-10-2024 LAB AP CASE REPORT Normal [facility] Comment on above: Order Comment: Via c ysto Result Comment: Non- gynecologic Cytology Case: [id number] Authorizing Provider: Lisa Zelaya MD Collected: 04/10/20241543 Ordering Location: [facility] Received: 04/10/2024 1544 Urology Pathologist: Adelita Peralta MD Specimen: Bladder washing Performed By: #### L [id number] ####[facility] ([facility])[address] [place] [address] LAB AP CLINICAL INFORMATION Order Diagnoses [place] Comment on above: Order Comment: Via c ysto Result Comment: C67. 4 - Malignant neoplasm of posterior wall of urinary bladder (CMS/HCC) [ICD-10-CM] Performed By: #### L [id number] ####[facility] [place] [address] LAB AP GROSS DESCRIPTION 6 mL clear, colorless fluid Normal [facility] Comment on above: Order Comment: Via c ysto Performed By: #### L [id number] ####[facility] ([facility] [place] [address] LAB AP REPORT FINAL DIAGNOSIS NARRATIVE Normal [facility] Comment on above: Order Comment: Via c ysto Result Comment: A. B ladder washing: - Negative for high grade urothelial carcinoma. Performed By: #### L [id number] ####[facility] ([facility] [place] [address] Procedure Visiton 04-10-2024 Procedure Visit [id number] Wali Bejarano 1960 F Date Provider Department Center 04/10/[address] [facility] Family History Problem Relation Age of Onset Hypertension Mother Atrial fibrillation Mother Other Sister Coronary artery disease Brother Hypertension Brother Family Status - Relation Status Age at Mother Sister Brother Level of Service:91911 SD OFFICE/OUTPATIENT ESTABLISHED LOW MDM 20 MIN Reason for Visit and Comments: Follow-up [273811] [place] Telephoneon 04-03-2024 Telephone [id number] Wali Bejarano ruby Perez 1960 F Date Provider Department Center 04/03/2024 REEMA CARD [facility] Family History Problem Relation Age of Onset Hypertension Mother Atrial fibrillation Mother Other Sister Coronary artery disease Brother Hypertension Brother Family Status - Relation Status Age at Mother Sister Brother Normal [facility] HISTOLOGY - TISSUE EXAMon LAB AP CASE REPORT Normal [facility] Comment on above: Result Comment: Surg ical Pathology Case: [id number] Authorizing Provider: Jenn Vieira MD Collected: 03/19/2024 1224 Ordering Location: [facility] Received: 03/19/2024 1356 [facility] Pathologist: Mel Mortensen MD Specimens: A) - Large Intestine, Right/Ascending Colon, small ascending cln polyps r/o adenoma B) - Large Intestine, Right/Ascending Colon, large proximal ascending cln polyp EMR r/o adenoma C) - Large Intestine, Right/Ascending Colon, large distal ascending cln EMR polyp r/o adenoma Performed By: #### L [id number] #### [facility] [address] [place] [address] LAB AP CLINICAL INFORMATION Order Diagnoses [place] Comment on above: Result Comment: D12. 6 - Adenomatous polyp of colon, unspecified part of colon [ICD-10-CM] Performed By: #### L [id number] #### [facility] [address] [place] [address] LAB AP GROSS DESCRIPTION [place] Comment on above: Result Comment: A. L [...] Lees, Pathology PGY-2 Performed By: #### L [id number] #### [facility] [address] [place] [address] LAB AP MICROSCOPIC DESCRIPTION Microscopic examination performed. [place] Comment on above: Performed By: #### L [id number] #### [facility] [address] [place] [address] LAB AP REPORT FINAL DIAGNOSIS NARRATIVE [facility] Comment on above: Result Comment: A. C olon, ascending polyp, biopsy: - Tubular adenoma B. Colon, large proximal ascending polyp, biopsy: - Tubular adenoma C. Colon, large distal ascending polyp, biopsy: - Tubular adenoma Performed By: #### L [id number] #### [facility] [address] [place] [address] HPon 03-19-2024 HP --- Attestation signed by [...] colonoscopy with possible EMR. Colonoscopy at the [facility] on 02/13/2024 revealed 2 subcentimeter polyps in the cecum/ascending colon biopsied with cold snare. Pandiverticulosis. Plan: Colonoscopy with EMR today History Of Present Illness This is a 56-year-old female who recently underwent colonoscopy 3 weeks ago on 02/13/2024 found to have cecal polyps, biopsies were obtained and revealed tubular adenoma. Presenting today for colonoscopy with possible EMR. Colonoscopy at the [facility] on 02/13/2024 revealed 2 subcentimeter polyps in [...] colonoscopy with possible EMR. Colonoscopy at the [facility] on 02/13/2024 revealed 2 subcentimeter polyps in the cecum/ascending colon biopsied with cold snare. Pandiverticulosis. Plan: Colonoscopy with EMR today [place] NURSNOTEon 03-19-2024 RENNY Vieira is at beds freida updating patient and family [place] NURSNOTJavon Grounding patch eduarda pamela skin dry and intact [place] POCT GLUCOSE METER UNSOLICIT ED RESULTSon 03-19-2024 Glucose [Mass/Vol] 117 mg/dL High 70-105 [facility] Comment on above: Order Comment: Waive d Testing in the ED is performed under the ED CLIA certificate #[id number]. Result Comment: dhol as Performed By: #### L [id number] ####[facility] ([facility])[address] [place] [address] Prep for Procedureon 024 Prep for Procedure [id number] Wali Bejarano A 1960 F Date Provider Department Center 03/12/2024 JENN HAYNES [facility] Family History Problem Relation Age of Onset Hypertension Mother Atrial fibrillation Mother Other Sister Coronary artery disease Brother Hypertension Brother Family Status - Relation Status Age at Mother Sister Brother [place] Letter (Out)on 03-06-2024 Letter (Out) [id number] Wali Bejarano A 1960 Date Provider Department Center 03/06/2024 None-None [facility] SCHED [facility] Medical C Family History Problem Relation Age of Onset Hypertension Mother Atrial fibrillation Mother Other Sister Coronary artery disease Brother Hypertension Brother Family Status - Relation Status Age at Mother Sister Brother [place] Orders Onlyon 03-01-2024 Orders Only [id number] Wali Bejarano A 1960 F Date Provider Department Center 03/01/2024 REEMA CARD [facility] CATH[facility]INE Family History Problem Relation Age of Onset Hypertension Mother Atrial fibrillation Mother Other Sister Coronary artery disease Brother Hypertension Brother Family Status - Relation Status Age at Mother Sister Brother Normal [facility] Garret 02-14-2024 L Specimen: [id number] Received: 02/14/24 Status: LALY Hodges Num: [id number] Spec Type: Surgical Subm Dr: Jeff Cordova Tissues: A Colon Biopsy (CECAL POLYP) Procedures: HE/2, Gross/Micro L4 Age/ Patient Sex Location Account Attending Physician Daniella Bejarano 63/F LABELL [id number] Jeff Cordova SPEC NUM: [id number] RECD: 02/14/24 STATUS: LALY HODGES NUM: [id number] JULIA: 02/14/24 DR: Jeff Cordova ENTERED: 02/14/[address] [facility] [address]: SPEC TYPE: Surgical DEPT: ISADORA VIRK ENTERED BY: [id number] RECV BY: [id number] ORDERED: HE/2, Gross/Micro L4 ORDERED: HE/2, Gross/Micro [...] cecal polyp x2, smith-diverticulosis. TW/CYC CPT Codes 73821 Specimen: [id number] Received: 02/14/24 Status: LALY Hodges Num: [id number] Spec Type: Surgical Subm Dr: Jeff Cordova Tissues: A Colon Biopsy (CECAL POLYP) Procedures: HE/2, Gross/Micro L4 Patient: Daniella Bejarano [id number] (Continued) Signed (signature on file) Corey Jeter MD 02/17/241900 Normal [facility] Office Visiton 02-09-2024 Follow-up visit [id number] Wali Bejarano 1960 F Date Provider Department Center 02/09/2024 Sadie-OZZY DANIELS Family History Problem Relation Age of Onset Hypertension Mother Atrial fibrillation Mother Other Sister Coronary artery disease Brother Hypertension Brother Family Status - Relation Status Age at Mother Sister Brother Level of Service:49403 SD OFFICE/OUTPATIENT ESTABLISHED MOD MDM 30 MIN [place] 36on 01-17-2024 36 Patient will call me back if she decides she'd like to proceed with PFT's. [place] 36on 01-16-2024 36 Patient called back to make you aware that her edema is better. She says it's better because she isn't on the cruise anymore and eating so much salt . She said her SOB remains the same, as she's still huffin and puffin . She states I think I'm just fat . Any recommendations? (Besides weight loss and diet lol) [place] 36 Regarding echo performed on 01/11/2024: ISIDRA Blair MA Her echo looks OK except they couldn't see her RV well- ask her if shortness of breath and edema have improved since taking lasix. LM for patient to return my call. Also let her know her Holter monitor did not show anything concerning (per Jeannette). [place] NON-CASTING CARRIER CYTOLOGY - CELLULAR EXAMon 01-10-2024 LAB AP CASE REPORT [facility] Comment on above: Order Comment: Via c ysto Result Comment: Non- gynecologic Cytology Case: [id number] Authorizing Provider: Lisa Zelaya MD Collected: 01/10/20241421 Ordering Location: [facility] Received: 01/10/2024 [facility] Urology Pathologist: Yossi Sterling MD Specimen: Bladder washing Performed By: #### L [id number] ####[facility] ([facility])[address] [place] [address] LAB AP CLINICAL INFORMATION Order Diagnoses [place] Comment on above: Order Comment: Via c ysto Result Comment: C67. 4 - Malignant neoplasm of posterior wall of urinary bladder (CMS/HCC) [ICD-10-CM] Performed By: #### L [id number] ####[facility] ([facility])[address] [place] [address] LAB AP GROSS DESCRIPTION [place] Comment on above: Order Comment: Via c ysto Result Comment: 15 m L clear, colorless fluid. Performed By: #### L [id number] ####[facility] ([facility])[address] [place] [address] LAB AP REPORT FINAL DIAGNOSIS NARRATIVE [facility] Comment on above: Order Comment: Via c ysto Result Comment: A. B ladder washing: - Negative for high grade urothelial carcinoma. Performed By: #### L [id number] ####[facility] ([facility])[address] [place] [address] Procedure Visiton 01-10-2024 Procedure Visit [id number] Wali Bejarano 1960 Provider Department Center 01/10/[address] [facility] Family History Problem Relation Age of Onset Hypertension Mother Atrial fibrillation Mother Other Sister Coronary artery disease Brother Hypertension Brother Family Status - Relation Status Age at Mother Sister Brother Level of Service:37287 SD OFFICE/OUTPATIENT ESTABLISHED LOW MDM 20 MIN Reason for Visit and Comments: Follow-up [343998] Normal [facility] 37on 01-02-2024 37 Increase lasix to 40 mg daily for 2-3 days to remove fluid, then return to 20 mg daily Have blood drawn for mag, electrolytes and renal function TB will call you for echocardiogram Normal [facility] Office Visiton 01-02-2024 Follow-up visit [id number] Wali Bejarano 1960 Provider Department Center 01/02/2024 OZZY PULLIAM CARD [facility] Family History Problem Relation Age of Onset Hypertension Mother Atrial fibrillation Mother Other Sister Coronary artery disease Brother Hypertension Brother Family Status - Relation Status Age at Mother Sister Brother Level of Service:24119 SD OFFICE/OUTPATIENT ESTABLISHED MOD MDM 30 MIN [place] NON-CASTING CARRIER CYTOLOGY - CELLULAR EXAMon 10-04-2023 LAB AP CASE REPORT Normal [facility] Comment on above: Order Comment: Via c ysto Result Comment: Non- gynecologic Cytology Case: [id number] Authorizing Provider: Lisa Zelaya MD Collected: 10/04/2023 1451 Ordering Location: [facility] Received: 10/04/2023 1451 Urology Pathologist: Yossi Sterling MD Specimen: Bladder washing Performed By: #### L [id number] #### [facility] ([facility]) [address] [place] [address] LAB AP CLINICAL INFORMATION Order Diagnoses [place] Comment on above: Order Comment: Via c ysto Result Comment: C67. 4 - Malignant neoplasm of posterior wall of urinary bladder (CMS/HCC) [ICD-10-CM] Performed By: #### L AB13 #### [facility] ([facility]) [address] [place] [address] LAB AP GROSS DESCRIPTION [place] Comment on above: Order Comment: Via c ysto Result Comment: 14 m L clear, colorless fluid. Performed By: #### L AB13 #### [facility] ([facility]) [address] [place] [address] LAB AP REPORT FINAL DIAGNOSIS NARRATIVE [facility] Comment on above: Order Comment: Via c ysto Result Comment: Blad david washing, cytology: Negative for high-grade urothelial carcinoma. Performed By: #### L AB13 #### [facility] ([facility]) [address] [place] [address] Procedure Visiton 10-04-2023 Procedure Visit [id number] Wali Bejarano 1960 Provider Department Center 10/04/[address] [facility] Family History Problem Relation Age of Onset Hypertension Mother Family Status - Relation Status Age at Mother Level of Service:71634 SD OFFICE/OUTPATIENT ESTABLISHED LOW MDM 20 MIN Reason for Visit and Comments: Follow-up [115045] [place] Letter (Out)on 08-15-2023 Letter (Out) [id number] Wali Bejarano 1960 Provider Department Center 08/15/2023 None-None [facility] [place] Medical C Family History Problem Relation Age of Onset Hypertension Mother Family Status - Relation Status Age at Mother [place] Letter (Out)on 08-11-2023 Letter (Out) [id number] Wali Bejarano 1960 F Date Provider Department Center 08/11/2023 None-None [facility] [place] [facility] C Family History Problem Relation Age of Onset Hypertension Mother Family Status - Relation Status Age at Mother Normal [facility] CBC AUTO DIFFon 03-06-2023 BASO # 0.1 103/ul Normal 0.0-0.1 [facility] Comment on above: Performed By: #### C YTO #### [facility] [address] [place] [address] Dr. Troy Jeter Basophils/100 WBC (Bld) 1.1 % Normal 0.2-2.0 [facility] Comment on above: Performed By: #### C YTO #### [facility] [address] [place] [address] Dr. Troy Jeter EO # 0.2 103/ul Normal 0.0-0.7 [facility] Comment on above: Performed By: #### C YTO #### [facility] [address] [place] [address] Dr. Troy Jeter Eosinophils/100 WBC (Bld) 2.8 % Normal 0.9-7.0 [facility] Comment on above: Performed By: #### C YTO #### [facility] [address] [place] [address] Dr. Troy Jeter Erythrocyte distribution width (RBC) [Ratio] 15.1 % Critically high 11.0-15.0 [facility] Comment on above: Performed By: #### C YTO #### [facility] [address] [place] [address] Dr. Troy Jeter Hematocrit (Bld) [Volume fraction] 39.7 % Normal 36.0-48.0 [facility] Comment on above: Performed By: #### C YTO #### [facility] [address] [place] [address] Dr. Troy Jeter Hemoglobin (Bld) [Mass/Vol] 12.3 g/dL Normal 12.0-16.0 [facility] Comment on above: Performed By: #### C YTO #### [facility] [address] [place] [address] Dr. Troy Jeter IG # 0.02 10e3/ul Normal 0.00-0.03 [facility] Comment on above: Performed By: #### C YTO #### [facility] [address] [place] [address] Dr. Troy Jeter IG % 0.4 % Normal 0.0-0.5 [facility] Comment on above: Performed By: #### C YTO #### [facility] [address] [place] [address] Dr. Troy Jeter LYMPH # 1.3 103/ul Normal 1.2-3.8 [facility] Comment on above: Performed By: #### C YTO #### [facility] [address] [place] [address] Dr. Troy Jeter Lymphocytes/100 WBC (Bld) 22.0 % Normal 20.5-60.0 [facility] Comment on above: Performed By: #### C YTO #### [facility] [address] [place] [address] Dr. Troy Jeter MANUAL DIFF REQ NO Normal [facility] Comment on above: Performed By: #### C YTO #### [facility] [address] [place] [address] Dr. Troy Jeter MCH (RBC) [Entitic mass] 25.5 pg Critically low 26.7-34.0 [facility] Comment on above: Performed By: #### C YTO #### [facility] [address] [place] [address] Dr. Troy Jeter MCHC (RBC) [Mass/Vol] 31.0 g/dL Normal 29.9-35.2 [facility] Comment on above: Performed By: #### C YTO #### [facility] [address] [place] [address] Dr. Troy Jeter MCV (RBC) [Entitic vol] 82.2 fL Normal 81.0-99.0 [facility] Comment on above: Performed By: #### C YTO #### [facility] [address] [place] [address] Dr. Troy Jeter MONO # 0.5 103/ul Normal 0.3-0.8 [facility] Comment on above: Performed By: #### C YTO #### [facility] [address] [place] [address] Dr. Troy Jeter Monocytes/100 WBC (Bld) 8.6 % Normal 1.7-12.0 [facility] Comment on above: Performed By: #### C YTO #### [facility] [address] [place] [address] Dr. Troy Jeter NEUT # 3.7 103/ul Normal 1.4-6.5 [facility] Comment on above: Performed By: #### C YTO #### [facility] [address] [place] [address] Dr. Troy Jeter Neutrophils/100 WBC (Bld) 65.1 % Normal 43.0-75.0 [facility] Comment on above: Performed By: #### C YTO #### [facility] [address] [place] [address] Dr. Troy Jeter Platelet mean volume (Bld) [Entitic vol] 9.0 fL Critically low 9.5-13.5 [facility] Comment on above: Performed By: #### C YTO #### [facility] [address] [place] [address] Dr. Troy Jeter PLT 211 103/ul Normal 150-450 [facility] Comment on above: Performed By: #### C YTO #### [facility] [address] [place] [address] Dr. Troy Jeter RBC 4.83 106/ul Normal 4.20-5.40 [facility] Comment on above: Performed By: #### C YTO #### [facility] [address] [place] [address] Dr. Troy Jeter WBC 5.7 103/ul Normal 4.0-11.0 [facility] Comment on above: Performed By: #### C YTO #### [facility] [address] [place] [address] Dr. Troy Jeter PROF 14(COMP METB)on 023 Albumin [Mass/Vol] 3.4 g/dL Normal 3.4-5.0 [facility] Comment on above: Performed By: #### C BC #### [facility] [address] [place] [address] Dr. Troy Jeter Albumin/Globulin [Mass ratio] 0.9 {ratio} Normal [facility] Comment on above: Performed By: #### C BC #### [facility] [address] [address] [address] Troy Jeter ALP [Catalytic activity/Vol] 94 U/L Normal 46-116 [facility] Comment on above: Performed By: #### C BC #### [facility] [address] [place] [address] Dr. Troy Jeter ALT [Catalytic activity/Vol] 61 U/L Critically high 14-59 [facility] Comment on above: Performed By: #### C BC #### [facility] [address] [place] [address] Dr. Troy Jeter Anion gap [Moles/Vol] 11.6 mmol/L Normal [facility] Comment on above: Performed By: #### C BC #### [facility] [address] [place] [address] Dr. Troy Jeter AST [Catalytic activity/Vol] 48 U/L Critically high 15-37 [facility] Comment on above: Performed By: #### C BC #### [facility] [address] [place] [address] Dr. Troy Jeter Bilirubin [Mass/Vol] 0.3 mg/dL Normal 0.2-1.0 [facility] Comment on above: Performed By: #### C BC #### [facility] [address] [place] [address] Dr. Troy Jeter Calcium [Mass/Vol] 9.3 mg/dL Normal 8.5-10.1 [facility] Comment on above: Performed By: #### C BC #### [facility] [address] [place] [address] Dr. Troy Jeter Chloride [Moles/Vol] 106 mmol/L Normal 98-107 [facility] Comment on above: Performed By: #### C BC #### [facility] [address] [address] [address] Troy Jeter CO2 [Moles/Vol] 25.4 mmol/L Normal 21.0-32.[address] [facility] Comment on above: Performed By: #### C BC #### [facility] [address] [address] [address] Troy Jeter Creatinine [Mass/Vol] 1.06 mg/dL Critically high 0.55-1.02 [facility] Comment on above: Performed By: #### C BC #### [facility] [address] [address] [address] Troy Jeter EGFR-AF BANGLADESHI >60 Normal >=[address] [facility] Comment on above: Performed By: #### C BC #### [facility] [address] [address] [address] Troy Jeter EGFR-NON AF BANGLADESHI 52 mL/min/1.73m2 Critically low >=60 [facility] Comment on above: Performed By: #### C BC #### [facility] [address] [address] [address] Troy Jeter Globulin (S) [Mass/Vol] 4.0 g/dL Normal [facility] Comment on above: Performed By: #### C BC #### [facility] [address] [address] [address] Troy Jeter Glucose [Mass/Vol] 132 mg/dL Critically high 74-106 [facility] Comment on above: Performed By: #### C BC #### [facility] [address] [address] [address] Troy Jeter Potassium [Moles/Vol] 4.0 mmol/L Normal 3.5-5.1 [facility] Comment on above: Performed By: #### C BC #### [facility] [address] [address] [address] Troy Jeter Protein [Mass/Vol] 7.4 g/dL Normal 6.4-8.2 [facility] Comment on above: Performed By: #### C BC #### [facility] [address] [place] [address] Dr. Troy Jeter Sodium [Moles/Vol] 139 mmol/L Normal 136-145 [facility] Comment on above: Performed By: #### C BC #### [facility] [address] [place] [address] Dr. Troy Jeter Urea nitrogen [Mass/Vol] 16.0 mg/dL Normal 7.0-18.0 [facility] Comment on above: Performed By: #### C BC #### [facility] [address] [place] [address] Dr. Troy Jeter Urea nitrogen/Creatinine [Mass ratio] 15.1 mg/mg Normal [facility] Comment on above: Performed By: #### C BC #### [facility] [address] [place] [address] Dr. Troy Jeter CBC AUTO DIFFon 03-02-2023 BASO # 0.1 103/ul Normal 0.0-0.1 [facility] Comment on above: Performed By: #### C YTO #### [facility] [address] [place] [address] Dr. Troy Jeter Basophils/100 WBC (Bld) 0.9 % Normal 0.2-2.0 [facility] Comment on above: Performed By: #### C YTO #### [facility] [address] [place] [address] Dr. Troy Jeter EO # 0.2 103/ul Normal 0.0-0.7 [facility] Comment on above: Performed By: #### C YTO #### [facility] [address] [place] [address] Dr. Troy Jeter Eosinophils/100 WBC (Bld) 2.9 % Normal 0.9-7.0 [facility] Comment on above: Performed By: #### C YTO #### [facility] [address] [place] [address] Dr. Troy Jeter Erythrocyte distribution width (RBC) [Ratio] 15.3 % Critically high 11.0-15.0 [facility] Comment on above: Performed By: #### C YTO #### [facility] [address] [place] [address] Dr. Troy Jeter Hematocrit (Bld) [Volume fraction] 36.8 % Normal 36.0-48.0 [facility] Comment on above: Performed By: #### C YTO #### [facility] [address] [place] [address] Dr. Troy Jeter Hemoglobin (Bld) [Mass/Vol] 11.5 g/dL Critically low 12.0-16.0 [facility] Comment on above: Performed By: #### C YTO #### [facility] [address] [place] [address] Dr. Troy Jeter IG # 0.02 10e3/ul Normal 0.00-0.03 [facility] Comment on above: Performed By: #### C YTO #### [facility] [address] [place] [address] Dr. Troy Jeter IG % 0.3 % Normal 0.0-0.5 [facility] Comment on above: Performed By: #### C YTO #### [facility] [address] [place] [address] Dr. Troy Jeter LYMPH # 1.5 103/ul Normal 1.2-3.8 [facility] Comment on above: Performed By: #### C YTO #### [facility] [address] [place] [address] Dr. Troy Jeter Lymphocytes/100 WBC (Bld) 24.8 % Normal 20.5-60.0 [facility] Comment on above: Performed By: #### C YTO #### [facility] [address] [place] [address] Dr. Troy Jeter MANUAL DIFF REQ NO Normal [facility] Comment on above: Performed By: #### C YTO #### [facility] [address] [place] [address] Dr. Troy Jeter MCH (RBC) [Entitic mass] 25.4 pg Critically low 26.7-34.0 [facility] Comment on above: Performed By: #### C YTO #### [facility] [address] [address] [address] Troy Jeter MCHC (RBC) [Mass/Vol] 31.3 g/dL Normal 29.9-35.2 [facility] Comment on above: Performed By: #### C YTO #### [facility] [address] [place] [address] Dr. Troy Jeter MCV (RBC) [Entitic vol] 81.4 fL Normal 81.0-99.0 [facility] Comment on above: Performed By: #### C YTO #### [facility] [address] [place] [address] Dr. Troy Jeter MONO # 0.5 103/ul Normal 0.3-0.8 [facility] Comment on above: Performed By: #### C YTO #### [facility] [address] [place] [address] Dr. Troy Jeter Monocytes/100 WBC (Bld) 8.4 % Normal 1.7-12.0 [facility] Comment on above: Performed By: #### C YTO #### [facility] [address] [place] [address] Dr. Troy Jeter NEUT # 3.7 103/ul Normal 1.4-6.5 [facility] Comment on above: Performed By: #### C YTO #### [facility] [address] [place] [address] Dr. Troy Jeter Neutrophils/100 WBC (Bld) 62.7 % Normal 43.0-75.0 [facility] Comment on above: Performed By: #### C YTO #### [facility] [address] [place] [address] Dr. Troy Jeter Platelet mean volume (Bld) [Entitic vol] 9.2 fL Critically low 9.5-13.5 [facility] Comment on above: Performed By: #### C YTO #### [facility] [address] [place] [address] Dr. Troy Jeter PLT 193 103/ul Normal 150-450 [facility] Comment on above: Performed By: #### C YTO #### [facility] [address] [place] [address] Dr. Troy Jeter RBC 4.52 106/ul Normal 4.20-5.40 [facility] Comment on above: Performed By: #### C YTO #### [facility] [address] [address] [address] Troy Jeter WBC 5.9 103/ul Normal 4.0-11.0 [facility] Comment on above: Performed By: #### C YTO #### [facility] [address] [place] [address] Dr. Troy Jeter GLYCOHEMOGLOBIN A1Con 2022 ADA RECOMMENDATION SEE BELOW Normal [facility] Comment on above: Result Comment: ADA RECOMMENDED LIMIT 4.0 - 6.0 ADA THERAPEUTIC TARGET < 7.0 ACTION SUGGESTED > 7.0 Performed By: #### C BC #### [facility] [address] [place] [address] Dr. Troy Jeter Glucose [Mass/Vol] 123 mg/dL Normal [facility] Comment on above: Performed By: #### C BC #### [facility] [address] [place] [address] Dr. Troy Jeter HbA1c (Bld) [Mass fraction] 5.9 % Normal 4.5-6.2 [facility] Comment on above: Performed By: #### C BC #### [facility] [address] [place] [address] Dr. Troy Jeter LIPID PROFILEon 03-02-2023 CHOL-HDL RATIO NORM SEE BELOW Normal [facility] Comment on above: Result Comment: 3.3 - 4.4 LOW RISK 4.4 - 7.1 AVERAGE RISK 7.1 - 11.0 MODERATE RISK >11.0 HIGH RISK Performed By: #### C YTO #### [facility] [address] [place] [address] Dr. Troy Jeter Cholesterol [Mass/Vol] 156 mg/dL Normal <=200 [facility] Comment on above: Performed By: #### C YTO #### [facility] [address] [address] [address] Troy Jeter Cholesterol in HDL [Mass/Vol] 64 mg/dL Critically high 40-60 [facility] Comment on above: Performed By: #### C YTO #### [facility] [address] [address] [address] Troy Jeter Cholesterol in LDL [Mass/Vol] 76.4 mg/dL Normal [facility] Comment on above: Performed By: #### C YTO #### [facility] [address] [address] [address] Troy Jeter Cholesterol.total/C holesterol in HDL [Mass ratio] 2.4 {ratio} Normal [facility] Comment on above: Performed By: #### C YTO #### [facility] [address] [place] [address] Dr. Troy Jeter HDL NORMAL > or = 60 mg/dl - LO W CARDIOVASCULAR RISK <40 mg/dl - HIGH CARDIOVASCULAR RISK Normal [facility] Comment on above: Performed By: #### C YTO #### [facility] [address] [place] [address] Dr. Troy Jeter LDL CALC NORMAL SEE BELOW Normal [facility] Comment on above: Result Comment: <100 mg/dl OPTIMAL 100 - 129 mg/dl NEAR OR ABOVE OPTIMAL 130 - 159 mg/dl BORDERLINE HIGH 160 - 189 mg/dl HIGH >190 mg/dl VERY HIGH Performed By: #### C YTO #### [facility] [address] [place] [address] Dr. Troy Jeter Triglyceride [Mass/Vol] 78 mg/dL Normal <=150 [facility] Comment on above: Performed By: #### C YTO #### [facility] [address] [address] [address] Troy Jeter VLDL CALC 15.6 mg/dL Normal [facility] Comment on above: Performed By: #### C YTO #### [facility] [address] [place] [address] Dr. Troy Jeter PROF 14(COMP METB)on 023 Albumin [Mass/Vol] 3.2 g/dL Critically low 3.4-5.0 [facility] Comment on above: Performed By: #### C YTO #### [facility] [address] [address] [address] Troy Jeter Albumin/Globulin [Mass ratio] 0.8 {ratio} Normal [facility] Comment on above: Performed By: #### C YTO #### [facility] [address] [address] [address] Troy Jeter ALP [Catalytic activity/Vol] 90 U/L Normal 46-116 [facility] Comment on above: Performed By: #### C YTO #### [facility] [address] [address] [address] Troy Jeter ALT [Catalytic activity/Vol] 58 U/L Normal 14-59 [facility] Comment on above: Performed By: #### C YTO #### [facility] [address] [place] [address] Dr. Troy Jeter Anion gap [Moles/Vol] 10.5 mmol/L Normal [facility] Comment on above: Performed By: #### C YTO #### [facility] [address] [place] [address] Dr. Troy Jeter AST [Catalytic activity/Vol] 40 U/L Critically high 15-37 [facility] Comment on above: Performed By: #### C YTO #### [facility] [address] [place] [address] Dr. Troy Jeter Bilirubin [Mass/Vol] 0.3 mg/dL Normal 0.2-1.0 [facility] Comment on above: Performed By: #### C YTO #### [facility] [address] [address] [address] Troy Jeter Calcium [Mass/Vol] 9.1 mg/dL Normal 8.5-10.1 [facility] Comment on above: Performed By: #### C YTO #### [facility] [address] [address] [address] Troy Jeter Chloride [Moles/Vol] 106 mmol/L Normal 98-107 [facility] Comment on above: Performed By: #### C YTO #### [facility] [address] [address] [address] Troy Jeter CO2 [Moles/Vol] 27.6 mmol/L Normal 21.0-32.[address] [facility] Comment on above: Performed By: #### C YTO #### [facility] [address] [address] [address] Troy Jeter Creatinine [Mass/Vol] 1.01 mg/dL Normal 0.55-1.02 [facility] Comment on above: Performed By: #### C YTO #### [facility] [address] [address] [address] Troy Jeter EGFR-AF BANGLADESHI >60 Normal >=[address] [facility] Comment on above: Performed By: #### C YTO #### [facility] [address] [place] [address] Dr. Troy Jeter EGFR-NON AF BANGLADESHI 55 mL/min/1.73m2 Critically low >=60 [facility] Comment on above: Performed By: #### C YTO #### [facility] [address] [address] [address] Troy Jeter Globulin (S) [Mass/Vol] 3.9 g/dL Normal [facility] Comment on above: Performed By: #### C YTO #### [facility] [address] [address] [address] Troy Jeter Glucose [Mass/Vol] 112 mg/dL Critically high 74-106 [facility] Comment on above: Performed By: #### C YTO #### [facility] [address] [address] [address] Troy Jeter Potassium [Moles/Vol] 4.1 mmol/L Normal 3.5-5.1 [facility] Comment on above: Performed By: #### C YTO #### [facility] [address] [address] [address] Troy Jeter Protein [Mass/Vol] 7.1 g/dL Normal 6.4-8.2 [facility] Comment on above: Performed By: #### C YTO #### [facility] [address] [address] [address] Troy Jeter Sodium [Moles/Vol] 140 mmol/L Normal 136-145 [facility] Comment on above: Performed By: #### C YTO #### [facility] [address] [address] [address] Troy Jeter Urea nitrogen [Mass/Vol] 14.0 mg/dL Normal 7.0-18.0 [facility] Comment on above: Performed By: #### C YTO #### [facility] [address] [place] [address] Dr. Troy Jeter Urea nitrogen/Creatinine [Mass ratio] 13.9 mg/mg Normal [facility] Comment on above: Performed By: #### C YTO #### [facility] [address] [place] [address] Dr. Troy Jeter TSHon 03-02-2023 TSH 3.047 uIU/mL Normal 0.358-3.740 [facility] Comment on above: Performed By: #### C YTO #### [facility] [address] [place] [address] Dr. Troy Jeter CYTOLOGYon 12-28-2022 SENT TO REF LAB 12/28/2022 [facility] Comment on above: Performed By: #### C YTO #### [facility] [address] [place] [address] Dr. Troy Jeter SENT TO REF LAB 12/28/2022 Normal [facility] Comment on above: Performed By: #### C YTO #### [facility] [address] [place] [address] Dr. Troy Jeter PROTIMEon 12-21-2022 INR Coag (PPP) [Relative time] 1.00 {INR} Normal [facility] Comment on above: Performed By: #### C YTO #### [facility] [address] [place] [address] Dr. Troy Jeter INR GUIDELINES SEE BELOW Normal [facility] Comment on above: Result Comment: LORENA RED INR: 2.0 - 3.0 CONDITIONS NOT LISTED BELOW 2.5 - 3.5 FOR PROSTHETIC HEART VALVE REPLACEMENT 2.5 - 3.5 RECURRENT THROMBOSIS Performed By: #### C YTO #### [facility] [address] [place] [address] Dr. Troy Jeter PT Coag (PPP) [Time] 10.6 s Normal 9.0-11.6 [facility] Comment on above: Performed By: #### C YTO #### [facility] [address] [place] [address] Dr. Troy Jeter PTTon 12-21-2022 aPTT Coag (Bld) [Time] 26.9 s Normal 22.3-36.2 [facility] Comment on above: Performed By: #### C YTO #### [facility] [address] [place] [address] Dr. Troy Jeter CYTOLOGYon 12-07-2022 SENT TO REF LAB 12/07/2022 Normal [facility] Comment on above: Performed By: #### C YTO #### [facility] [address] [place] [address] Dr. Troy Jeter CBC AUTO DIFFon 11-23-2022 BASO # 0.1 103/ul Normal 0.0-0.1 [facility] Comment on above: Performed By: #### C BC #### [facility] [address] [place] [address] Dr. Troy Jeter Basophils/100 WBC (Bld) 1.0 % Normal 0.2-2.0 [facility] Comment on above: Performed By: #### C BC #### [facility] [address] [place] [address] Dr. Troy Jeter EO # 0.1 103/ul Normal 0.0-0.7 [facility] Comment on above: Performed By: #### C BC #### [facility] [address] [place] [address] Dr. Troy Jeter Eosinophils/100 WBC (Bld) 2.4 % Normal 0.9-7.0 [facility] Comment on above: Performed By: #### C BC #### [facility] [address] [place] [address] Dr. Troy Jeter Erythrocyte distribution width (RBC) [Ratio] 14.6 % Normal 11.0-15.0 [facility] Comment on above: Performed By: #### C BC #### [facility] [address] [place] [address] Dr. Troy Jeter Hematocrit (Bld) [Volume fraction] 37.7 % Normal 36.0-48.0 [facility] Comment on above: Performed By: #### C BC #### [facility] [address] [place] [address] Dr. Troy Jeter Hemoglobin (Bld) [Mass/Vol] 11.0 g/dL Critically low 12.0-16.0 [facility] Comment on above: Performed By: #### C BC #### [facility] [address] [place] [address] Dr. Troy Jeter IG # 0.02 10e3/ul Normal 0.00-0.03 [facility] Comment on above: Performed By: #### C BC #### [facility] [address] [place] [address] Dr. Troy Jeter IG % 0.4 % Normal 0.0-0.5 [facility] Comment on above: Performed By: #### C BC #### [facility] [address] [place] [address] Dr. Troy Jeter LYMPH # 1.3 103/ul Normal 1.2-3.8 [facility] Comment on above: Performed By: #### C BC #### [facility] [address] [place] [address] Dr. Troy Jeter Lymphocytes/100 WBC (Bld) 25.5 % Normal 20.5-60.0 [facility] Comment on above: Performed By: #### C BC #### [facility] [address] [place] [address] Dr. Troy Jeter MANUAL DIFF REQ NO Normal [facility] Comment on above: Performed By: #### C BC #### [facility] [address] [place] [address] Dr. Troy Jeter MCH (RBC) [Entitic mass] 25.9 pg Critically low 26.7-34.0 [facility] Comment on above: Performed By: #### C BC #### [facility] [address] [place] [address] Dr. Troy Jeter MCHC (RBC) [Mass/Vol] 29.2 g/dL Critically low 29.9-35.2 [facility] Comment on above: Performed By: #### C BC #### [facility] [address] [place] [address] Dr. Troy Jeter MCV (RBC) [Entitic vol] 88.7 fL Normal 81.0-99.0 [facility] Comment on above: Performed By: #### C BC #### [facility] [address] [place] [address] Dr. Troy Jeter MONO # 0.4 103/ul Normal 0.3-0.8 [facility] Comment on above: Performed By: #### C BC #### [facility] [address] [place] [address] Dr. Troy Jeter Monocytes/100 WBC (Bld) 8.6 % Normal 1.7-12.0 [facility] Comment on above: Performed By: #### C BC #### [facility] [address] [place] [address] Dr. Troy Jeter NEUT # 3.2 103/ul Normal 1.4-6.5 [facility] Comment on above: Performed By: #### C BC #### [facility] [address] [place] [address] Dr. Troy Jeter Neutrophils/100 WBC (Bld) 62.1 % Normal 43.0-75.0 [facility] Comment on above: Performed By: #### C BC #### [facility] [address] [place] [address] Dr. Troy Jeter Platelet mean volume (Bld) [Entitic vol] 9.4 fL Critically low 9.5-13.5 [facility] Comment on above: Performed By: #### C BC #### [facility] [address] [place] [address] Dr. Troy Jeter PLT 190 103/ul Normal 150-450 [facility] Comment on above: Performed By: #### C BC #### [facility] [address] [place] [address] Dr. Troy Jeter RBC 4.25 106/ul Normal 4.20-5.40 [facility] Comment on above: Performed By: #### C BC #### [facility] [address] [place] [address] Dr. Troy Jeter WBC 5.1 103/ul Normal 4.0-11.0 [facility] Comment on above: Performed By: #### C BC #### [facility] [address] [place] [address] Dr. Troy Jeter PROF 14(COMP METB)on 023 Albumin [Mass/Vol] 3.4 g/dL Normal 3.4-5.0 [facility] Comment on above: Performed By: #### C BC #### [facility] [address] [place] [address] Dr. Troy Jeter Albumin/Globulin [Mass ratio] 0.9 {ratio} Normal [facility] Comment on above: Performed By: #### C BC #### [facility] [address] [place] [address] Dr. Troy Jeter ALP [Catalytic activity/Vol] 99 U/L Normal 46-116 [facility] Comment on above: Performed By: #### C BC #### [facility] [address] [place] [address] Dr. Troy Jeter ALT [Catalytic activity/Vol] 67 U/L Critically high 14-59 [facility] Comment on above: Performed By: #### C BC #### [facility] [address] [place] [address] Dr. Troy Jeter Anion gap [Moles/Vol] 12.8 mmol/L Normal [facility] Comment on above: Performed By: #### C BC #### [facility] [address] [place] [address] Dr. Troy Jeter AST [Catalytic activity/Vol] 54 U/L Critically high 15-37 [facility] Comment on above: Performed By: #### C BC #### [facility] [address] [place] [address] Dr. Troy Jeter Bilirubin [Mass/Vol] 0.4 mg/dL Normal 0.2-1.0 [facility] Comment on above: Performed By: #### C BC #### [facility] [address] [place] [address] Dr. Troy Jeter Calcium [Mass/Vol] 9.3 mg/dL Normal 8.5-10.1 [facility] Comment on above: Performed By: #### C BC #### [facility] [address] [place] [address] Dr. Troy Jeter Chloride [Moles/Vol] 106 mmol/L Normal 98-107 [facility] Comment on above: Performed By: #### C BC #### [facility] [address] [place] [address] Dr. Troy Jeter CO2 [Moles/Vol] 24.9 mmol/L Normal 21.0-32.[address] [facility] Comment on above: Performed By: #### C BC #### [facility] [address] [place] [address] Dr. Troy Jeter Creatinine [Mass/Vol] 0.89 mg/dL Normal 0.55-1.02 [facility] Comment on above: Performed By: #### C BC #### [facility] [address] [place] [address] Dr. Troy Jeter EGFR-AF BANGLADESHI >60 Normal >=60 [facility] Comment on above: Performed By: #### C BC #### [facility] [address] [place] [address] Dr. Troy Jeter EGFR-NON AF BANGLADESHI >60 Normal >=60 [facility] Comment on above: Performed By: #### C BC #### [facility] [address] [place] [address] Dr. Troy Jeter Globulin (S) [Mass/Vol] 3.7 g/dL Normal [facility] Comment on above: Performed By: #### C BC #### [facility] [address] [address] [address] Troy Jeter Glucose [Mass/Vol] 125 mg/dL Critically high 74-106 [facility] Comment on above: Performed By: #### C BC #### [facility] [address] [address] [address] Troy Jeter Potassium [Moles/Vol] 3.7 mmol/L Normal 3.5-5.1 [facility] Comment on above: Performed By: #### C BC #### [facility] [address] [address] [address] Troy Jeter Protein [Mass/Vol] 7.1 g/dL Normal 6.4-8.2 [facility] Comment on above: Performed By: #### C BC #### [facility] [address] [address] [address] Troy Jeter Sodium [Moles/Vol] 140 mmol/L Normal 136-145 [facility] Comment on above: Performed By: #### C BC #### [facility] [address] [address] [address] Troy Jeter Urea nitrogen [Mass/Vol] 15.0 mg/dL Normal 7.0-18.0 [facility] Comment on above: Performed By: #### C BC #### [facility] [address] [address] [address] Troy Jeter Urea nitrogen/Creatinine [Mass ratio] 16.9 mg/mg Normal [facility] Comment on above: Performed By: #### C BC #### [facility] [address] [address] [address] Troy Jeter XR HAND RT MIN [...] JULISSA KAUFMAN Date: 2022-11-05 08:18 Normal [facility] CYTOLOGYon 08-10-2022 SENT TO REF LAB 08/10/22 Normal [facility] Comment on above: Performed By: #### C YTO #### [facility] [address] [place] [address] Dr. Troy Jeter CULTURE URINEon 07-28-2022 CULTURE URINE Culture Observations [...] F Meropenem S F Tetracycline R F Normal [facility] Comment on above: Performed By: #### C YTO #### [facility] [address] [address] [address] Troy Jeter BUNon 07-01-2022 Urea nitrogen [Mass/Vol] 14.0 mg/dL Normal 7.0-18.0 [facility] Comment on above: Performed By: #### C YTO #### [facility] [address] [address] [address] Troy Jeter CREATININEon 07-01-2022 Creatinine [Mass/Vol] 1.04 mg/dL Critically high 0.55-1.02 [facility] Comment on above: Performed By: #### C YTO #### [facility] [address] [address] [address] Troy Jeter EGFR-AF BANGLADESHI >60 Normal >=[address] [facility] Comment on above: Performed By: #### C YTO #### [facility] [address] [address] [address] Troy Jeter EGFR-NON AF BANGLADESHI 53 mL/min/1.73m2 Critically low >=60 [facility] Comment on above: Performed By: #### C YTO #### [facility] [address] [place] [address] ABD/PELV WO W [...] SPARKLE RODRIGUEZ Date: 2022-07-01 11:40 Normal [facility] XR CHEST 2 Von 05-26-2022 SARS-CoV-2 (COVID-19) [...] by: FRANNY ZEE Date: 2022-05-26 13:26 Normal [facility] PROTIMEon 05-04-2022 INR Coag (PPP) [Relative time] 1.00 {INR} Normal [facility] Comment on above: Performed By: #### C YTO #### [facility] [address] [place] [address] Dr. Troy Jeter INR GUIDELINES SEE BELOW Normal [facility] Comment on above: Result Comment: LORENA RED INR: 2.0 - 3.0 CONDITIONS NOT LISTED BELOW 2.5 - 3.5 FOR PROSTHETIC HEART VALVE REPLACEMENT 2.5 - 3.5 RECURRENT THROMBOSIS Performed By: #### C YTO #### [facility] [address] [place] [address] Dr. Troy Jeter PT Coag (PPP) [Time] 10.8 s Normal 9.0-11.6 [facility] Comment on above: Performed By: #### C YTO #### [facility] [address] [place] [address] Dr. Troy Jeter PTTon 05-04-2022 aPTT Coag (Bld) [Time] 24.5 s Normal 22.3-36.2 [facility] Comment on above: Performed By: #### C YTO #### [facility] [address] [place] [address] Dr. Troy Jeter CYTOLOGYon 04-27-2022 SENT TO REF LAB 04/28/22 Normal [facility] Comment on above: Performed By: #### C YTO #### [facility] [address] [place] [address] Dr. Troy Jeter MG MAMM SCREEN LT 3D CADon 0 04-11-2022 MG MAMM SCREEN LT 3D CAD Patient: DANIELLA BEJARANO Exam Date: 04/11/2022 : 1960 Gender:F Ordering : DR BAYRON SINGH . Admission #: [id number] Family : Order #: [id number] CLICK HERE TO VIEW EXAM RADIOLOGY REPORT [...] breast cancer at age 68. LOCATION: [facility] BREAST COMPOSITION: Scattered areas fibroglandular [...] M.D. on 04/11/2022 at 13:44 Normal [facility] CBC AUTO DIFFon 03-31-2022 BASO # 0.0 103/ul Normal 0.0-0.1 [facility] Comment on above: Performed By: #### C BC #### [facility] [address] [place] [address] Dr. Troy Jeter Basophils/100 WBC (Bld) 0.0 % Critically low 0.2-2.0 [facility] Comment on above: Performed By: #### C BC #### [facility] [address] [place] [address] Dr. Troy Jeter EO # 0.1 103/ul Normal 0.0-0.7 [facility] Comment on above: Performed By: #### C BC #### [facility] [address] [place] [address] Dr. Troy Jeter Eosinophils/100 WBC (Bld) 2.1 % Normal 0.9-7.0 [facility] Comment on above: Performed By: #### C BC #### [facility] [address] [place] [address] Dr. Troy Jeter Erythrocyte distribution width (RBC) [Ratio] 14.3 % Normal 11.0-15.0 [facility] Comment on above: Performed By: #### C BC #### [facility] [address] [place] [address] Dr. Troy Jeter Hematocrit (Bld) [Volume fraction] 31.8 % Critically low 36.0-48.0 [facility] Comment on above: Performed By: #### C BC #### [facility] [address] [place] [address] Dr. Troy Jeter Hemoglobin (Bld) [Mass/Vol] 9.7 g/dL Critically low 12.0-16.0 [facility] Comment on above: Performed By: #### C BC #### [facility] [address] [place] [address] Dr. Troy Jeter IG # 0.01 10e3/ul Normal 0.00-0.03 [facility] Comment on above: Performed By: #### C BC #### [facility] [address] [place] [address] Dr. Troy Jeter IG % 0.3 % Normal 0.0-0.5 [facility] Comment on above: Performed By: #### C BC #### [facility] [address] [place] [address] Dr. Troy Jeter LYMPH # 0.7 103/ul Critically low 1.2-3.8 [facility] Comment on above: Performed By: #### C BC #### [facility] [address] [place] [address] Dr. Troy Jeter Lymphocytes/100 WBC (Bld) 25.3 % Normal 20.5-60.0 [facility] Comment on above: Performed By: #### C BC #### [facility] [address] [place] [address] Dr. Troy Jeter MANUAL DIFF REQ NO Normal [facility] Comment on above: Performed By: #### C BC #### [facility] [address] [place] [address] Dr. Troy Jetre MCH (RBC) [Entitic mass] 26.9 pg Normal 26.7-34.0 [facility] Comment on above: Performed By: #### C BC #### [facility] [address] [place] [address] Dr. Troy Jeter MCHC (RBC) [Mass/Vol] 30.5 g/dL Normal 29.9-35.2 [facility] Comment on above: Performed By: #### C BC #### [facility] [address] [address] [address] Troy Jeter MCV (RBC) [Entitic vol] 88.1 fL Normal 81.0-99.0 [facility] Comment on above: Performed By: #### C BC #### [facility] [address] [address] [address] Troy Jeter MONO # 0.4 103/ul Normal 0.3-0.8 [facility] Comment on above: Performed By: #### C BC #### [facility] [address] [place] [address] Dr. Troy Jeter Monocytes/100 WBC (Bld) 14.2 % Critically high 1.7-12.0 [facility] Comment on above: Performed By: #### C BC #### [facility] [address] [place] [address] Dr. Troy Jeter NEUT # 1.7 103/ul Normal 1.4-6.5 [facility] Comment on above: Performed By: #### C BC #### [facility] [address] [place] [address] Dr. Troy Jeter Neutrophils/100 WBC (Bld) 58.1 % Normal 43.0-75.0 [facility] Comment on above: Performed By: #### C BC #### [facility] [address] [address] [address] Troy Jeter Platelet mean volume (Bld) [Entitic vol] 9.3 fL Critically low 9.5-13.5 [facility] Comment on above: Performed By: #### C BC #### [facility] [address] [place] [address] Dr. Troy Jeter PLT 134 103/ul Critically low 150-450 [facility] Comment on above: Performed By: #### C BC #### [facility] [address] [address] [address] Troy Jeter RBC 3.61 106/ul Critically low 4.20-5.40 [facility] Comment on above: Performed By: #### C BC #### [facility] [address] [place] [address] Dr. Troy Jeter WBC 2.9 103/ul Critically low 4.0-11.0 [facility] Comment on above: Performed By: #### C BC #### [facility] [address] [place] [address] Dr. Troy Jeter PROF 14(COMP METB)on 022 Albumin [Mass/Vol] 2.7 g/dL Critically low 3.4-5.0 [facility] Comment on above: Performed By: #### C MP #### [facility] [address] [place] [address] Dr. Troy Jeter Albumin/Globulin [Mass ratio] 0.9 {ratio} Normal [facility] Comment on above: Performed By: #### C MP #### [facility] [address] [place] [address] Dr. Troy Jeter ALP [Catalytic activity/Vol] 51 U/L Normal 46-116 [facility] Comment on above: Performed By: #### C MP #### [facility] [address] [place] [address] Dr. Troy Jeter ALT [Catalytic activity/Vol] 57 U/L Normal 14-59 [facility] Comment on above: Performed By: #### C MP #### [facility] [address] [place] [address] Dr. Troy Jeter Anion gap [Moles/Vol] 16.1 mmol/L Normal [facility] Comment on above: Performed By: #### C MP #### [facility] [address] [place] [address] Dr. Troy Jeter AST [Catalytic activity/Vol] 69 U/L Critically high 15-37 [facility] Comment on above: Performed By: #### C MP #### [facility] [address] [place] [address] Dr. Troy Jeter Bilirubin [Mass/Vol] 0.2 mg/dL Normal 0.2-1.0 [facility] Comment on above: Performed By: #### C MP #### [facility] [address] [address] [address] Troy Jeter Calcium [Mass/Vol] 8.1 mg/dL Critically low 8.5-10.1 [facility] Comment on above: Performed By: #### C MP #### [facility] [address] [address] [address] Troy Jeter Chloride [Moles/Vol] 112 mmol/L Critically high 98-107 [facility] Comment on above: Performed By: #### C MP #### [facility] [address] [address] [address] Troy Jeter CO2 [Moles/Vol] 18.3 mmol/L Critically low 21.0-32.0 [facility] Comment on above: Performed By: #### C MP #### [facility] [address] [address] [address] Troy Jeter Creatinine [Mass/Vol] 0.89 mg/dL Normal 0.55-1.02 [facility] Comment on above: Performed By: #### C MP #### [facility] [address] [place] [address] Dr. Troy Jeter EGFR-AF BANGLADESHI >60 Normal >=[address] [facility] Comment on above: Performed By: #### C MP #### [facility] [address] [address] [address] Troy Jeter EGFR-NON AF BANGLADESHI >60 Normal >=60 [facility] Comment on above: Performed By: #### C MP #### [facility] [address] [address] [address] Troy Jeter Globulin (S) [Mass/Vol] 3.0 g/dL Normal [facility] Comment on above: Performed By: #### C MP #### [facility] [address] [address] [address] Troy Jeter Glucose [Mass/Vol] 80 mg/dL Normal 74-106 [facility] Comment on above: Performed By: #### C MP #### [facility] [address] [address] [address] Troy Jeter Potassium [Moles/Vol] 3.4 mmol/L Critically low 3.5-5.1 [facility] Comment on above: Performed By: #### C MP #### [facility] [address] [address] [address] Troy Jeter Protein [Mass/Vol] 5.7 g/dL Critically low 6.4-8.2 [facility] Comment on above: Performed By: #### C MP #### [facility] [address] [address] [address] Troy Jeter Sodium [Moles/Vol] 143 mmol/L Normal 136-145 [facility] Comment on above: Performed By: #### C MP #### [facility] [address] [place] [address] Dr. Troy Jeter Urea nitrogen [Mass/Vol] 11.0 mg/dL Normal 7.0-18.0 [facility] Comment on above: Performed By: #### C MP #### [facility] [address] [place] [address] Dr. Troy Jeter Urea nitrogen/Creatinine [Mass ratio] 12.4 mg/mg Normal [facility] Comment on above: Performed By: #### C MP #### [facility] [address] [place] [address] Dr. Troy Jeter CBC AUTO DIFFon 03-30-2022 BASO # 0.0 103/ul Normal 0.0-0.1 [facility] Comment on above: Performed By: #### C BC #### [facility] [address] [place] [address] Dr. Troy Jeter Basophils/100 WBC (Bld) 0.3 % Normal 0.2-2.0 [facility] Comment on above: Performed By: #### C BC #### [facility] [address] [place] [address] Dr. Troy Jeter EO # 0.0 103/ul Normal 0.0-0.7 [facility] Comment on above: Performed By: #### C BC #### [facility] [address] [place] [address] Dr. Troy Jeter Eosinophils/100 WBC (Bld) 1.2 % Normal 0.9-7.0 [facility] Comment on above: Performed By: #### C BC #### [facility] [address] [place] [address] Dr. Troy Jeter Erythrocyte distribution width (RBC) [Ratio] 14.1 % Normal 11.0-15.0 [facility] Comment on above: Performed By: #### C BC #### [facility] [address] [place] [address] Dr. Troy Jeter Hematocrit (Bld) [Volume fraction] 32.5 % Critically low 36.0-48.0 [facility] Comment on above: Performed By: #### C BC #### [facility] [address] [place] [address] Dr. Troy Jeter Hemoglobin (Bld) [Mass/Vol] 9.8 g/dL Critically low 12.0-16.0 [facility] Comment on above: Performed By: #### C BC #### [facility] [address] [place] [address] Dr. Troy Jeter IG # 0.01 10e3/ul Normal 0.00-0.03 [facility] Comment on above: Performed By: #### C BC #### [facility] [address] [place] [address] Dr. Troy Jeter IG % 0.3 % Normal 0.0-0.5 [facility] Comment on above: Performed By: #### C BC #### [facility] [address] [place] [address] Dr. Troy Jeter LYMPH # 0.6 103/ul Critically low 1.2-3.8 [facility] Comment on above: Performed By: #### C BC #### [facility] [address] [place] [address] Dr. Troy Jeter Lymphocytes/100 WBC (Bld) 18.4 % Critically low 20.5-60.0 [facility] Comment on above: Performed By: #### C BC #### [facility] [address] [place] [address] Dr. Troy Jeter MANUAL DIFF REQ NO Normal [facility] Comment on above: Performed By: #### C BC #### [facility] [address] [place] [address] Dr. Troy Jeter MCH (RBC) [Entitic mass] 27.0 pg Normal 26.7-34.0 [facility] Comment on above: Performed By: #### C BC #### [facility] [address] [place] [address] Dr. Troy Jeter MCHC (RBC) [Mass/Vol] 30.2 g/dL Normal 29.9-35.2 [facility] Comment on above: Performed By: #### C BC #### [facility] [address] [place] [address] Dr. Troy Jeter MCV (RBC) [Entitic vol] 89.5 fL Normal 81.0-99.0 [facility] Comment on above: Performed By: #### C BC #### [facility] [address] [place] [address] Dr. Troy Jeter MONO # 0.4 103/ul Normal 0.3-0.8 [facility] Comment on above: Performed By: #### C BC #### [facility] [address] [place] [address] Dr. Troy Jeter Monocytes/100 WBC (Bld) 12.7 % Critically high 1.7-12.0 [facility] Comment on above: Performed By: #### C BC #### [facility] [address] [place] [address] Dr. Troy Jeter NEUT # 2.2 103/ul Normal 1.4-6.5 [facility] Comment on above: Performed By: #### C BC #### [facility] [address] [place] [address] Dr. Troy Jeter Neutrophils/100 WBC (Bld) 67.1 % Normal 43.0-75.0 [facility] Comment on above: Performed By: #### C BC #### [facility] [address] [address] [address] Troy Jeter Platelet mean volume (Bld) [Entitic vol] 9.7 fL Normal 9.5-13.5 [facility] Comment on above: Performed By: #### C BC #### [facility] [address] [address] [address] Troy Jeter PLT 140 103/ul Critically low 150-450 [facility] Comment on above: Performed By: #### C BC #### [facility] [address] [place] [address] Dr. Troy Jeter RBC 3.63 106/ul Critically low 4.20-5.40 [facility] Comment on above: Performed By: #### C BC #### [facility] [address] [place] [address] Dr. Troy Jeter WBC 3.3 103/ul Critically low 4.0-11.0 [facility] Comment on above: Performed By: #### C BC #### [facility] [address] [place] [address] Dr. Troy Jeter PROF 14(COMP METB)on 022 Albumin [Mass/Vol] 2.8 g/dL Critically low 3.4-5.0 [facility] Comment on above: Performed By: #### C BC #### [facility] [address] [place] [address] Dr. Troy Jeter Albumin/Globulin [Mass ratio] 0.9 {ratio} Normal [facility] Comment on above: Performed By: #### C BC #### [facility] [address] [place] [address] Dr. Troy Jeter ALP [Catalytic activity/Vol] 50 U/L Normal 46-116 [facility] Comment on above: Performed By: #### C BC #### [facility] [address] [place] [address] Dr. Troy Jeter ALT [Catalytic activity/Vol] 58 U/L Normal 14-59 [facility] Comment on above: Performed By: #### C BC #### [facility] [address] [place] [address] Dr. Troy Jeter Anion gap [Moles/Vol] 17.3 mmol/L Normal [facility] Comment on above: Performed By: #### C BC #### [facility] [address] [address] [address] Troy Jeter AST [Catalytic activity/Vol] 78 U/L Critically high 15-37 [facility] Comment on above: Performed By: #### C BC #### [facility] [address] [address] [address] Troy Jeter Bilirubin [Mass/Vol] 0.2 mg/dL Normal 0.2-1.0 [facility] Comment on above: Performed By: #### C BC #### [facility] [address] [address] [address] Troy Jeter Calcium [Mass/Vol] 8.0 mg/dL Critically low 8.5-10.1 [facility] Comment on above: Performed By: #### C BC #### [facility] [address] [address] [address] Troy Jeter Chloride [Moles/Vol] 112 mmol/L Critically high 98-107 [facility] Comment on above: Performed By: #### C BC #### [facility] [address] [address] [address] Troy Jeter CO2 [Moles/Vol] 17.0 mmol/L Critically low 21.0-32.0 [facility] Comment on above: Performed By: #### C BC #### [facility] [address] [address] [address] Troy Jeter Creatinine [Mass/Vol] 0.93 mg/dL Normal 0.55-1.02 [facility] Comment on above: Performed By: #### C BC #### [facility] [address] [address] [address] Troy Jeter EGFR-AF BANGLADESHI >60 Normal >=[address] [facility] Comment on above: Performed By: #### C BC #### [facility] [address] [address] [address] Troy Jeter EGFR-NON AF BANGLADESHI >60 Normal >=60 [facility] Comment on above: Performed By: #### C BC #### [facility] [address] [address] [address] Troy Jeter Globulin (S) [Mass/Vol] 3.1 g/dL Normal [facility] Comment on above: Performed By: #### C BC #### [facility] [address] [address] [address] Troy Jeter Glucose [Mass/Vol] 77 mg/dL Normal 74-106 [facility] Comment on above: Performed By: #### C BC #### [facility] [address] [address] [address] Troy Jeter Potassium [Moles/Vol] 3.3 mmol/L Critically low 3.5-5.1 [facility] Comment on above: Performed By: #### C BC #### [facility] [address] [place] [address] Dr. Troy Jeter Protein [Mass/Vol] 5.9 g/dL Critically low 6.4-8.2 [facility] Comment on above: Performed By: #### C BC #### [facility] [address] [place] [address] Dr. Troy Jeter Sodium [Moles/Vol] 143 mmol/L Normal 136-145 [facility] Comment on above: Performed By: #### C BC #### [facility] [address] [place] [address] Dr. Troy Jeter Urea nitrogen [Mass/Vol] 12.0 mg/dL Normal 7.0-18.0 [facility] Comment on above: Performed By: #### C BC #### [facility] [address] [place] [address] Dr. Troy Jeter Urea nitrogen/Creatinine [Mass ratio] 12.9 mg/mg Normal [facility] Comment on above: Performed By: #### C BC #### [facility] [address] [place] [address] Dr. Troy Jeter CBC AUTO DIFFon 03-29-2022 BASO # 0.0 103/ul Normal 0.0-0.1 [facility] Comment on above: Performed By: #### C YTO #### [facility] [address] [place] [address] Dr. Troy Jeter Basophils/100 WBC (Bld) 0.2 % Normal 0.2-2.0 [facility] Comment on above: Performed By: #### C YTO #### [facility] [address] [place] [address] Dr. Troy Jeter EO # 0.0 103/ul Normal 0.0-0.7 [facility] Comment on above: Performed By: #### C YTO #### [facility] [address] [place] [address] Dr. Troy Jeter Eosinophils/100 WBC (Bld) 0.2 % Critically low 0.9-7.0 [facility] Comment on above: Performed By: #### C YTO #### [facility] [address] [place] [address] Dr. Troy Jeter Erythrocyte distribution width (RBC) [Ratio] 14.0 % Normal 11.0-15.0 [facility] Comment on above: Performed By: #### C YTO #### [facility] [address] [place] [address] Dr. Troy Jeter Hematocrit (Bld) [Volume fraction] 35.4 % Critically low 36.0-48.0 [facility] Comment on above: Performed By: #### C YTO #### [facility] [address] [place] [address] Dr. Troy Jeter Hemoglobin (Bld) [Mass/Vol] 10.9 g/dL Critically low 12.0-16.0 [facility] Comment on above: Performed By: #### C YTO #### [facility] [address] [place] [address] Dr. Troy Jeter IG # 0.03 10e3/ul Normal 0.00-0.03 [facility] Comment on above: Performed By: #### C YTO #### [facility] [address] [place] [address] Dr. Troy Jeter IG % 0.5 % Normal 0.0-0.5 [facility] Comment on above: Performed By: #### C YTO #### [facility] [address] [place] [address] Dr. Troy Jeter LYMPH # 0.3 103/ul Critically low 1.2-3.8 [facility] Comment on above: Performed By: #### C YTO #### [facility] [address] [place] [address] Dr. Troy Jeter Lymphocytes/100 WBC (Bld) 5.8 % Critically low 20.5-60.0 [facility] Comment on above: Performed By: #### C YTO #### [facility] [address] [place] [address] Dr. Troy Jeter MANUAL DIFF REQ NO Normal [facility] Comment on above: Performed By: #### C YTO #### [facility] [address] [place] [address] Dr. Troy Jeter MCH (RBC) [Entitic mass] 27.3 pg Normal 26.7-34.0 [facility] Comment on above: Performed By: #### C YTO #### [facility] [address] [place] [address] Dr. Troy Jeter MCHC (RBC) [Mass/Vol] 30.8 g/dL Normal 29.9-35.2 [facility] Comment on above: Performed By: #### C YTO #### [facility] [address] [place] [address] Dr. Troy Jeter MCV (RBC) [Entitic vol] 88.7 fL Normal 81.0-99.0 [facility] Comment on above: Performed By: #### C YTO #### [facility] [address] [place] [address] Dr. Troy Jeter MONO # 0.3 103/ul Normal 0.3-0.8 [facility] Comment on above: Performed By: #### C YTO #### [facility] [address] [place] [address] Dr. Troy Jeter Monocytes/100 WBC (Bld) 6.2 % Normal 1.7-12.0 [facility] Comment on above: Performed By: #### C YTO #### [facility] [address] [place] [address] Dr. Troy Jeter NEUT # 4.8 103/ul Normal 1.4-6.5 [facility] Comment on above: Performed By: #### C YTO #### [facility] [address] [place] [address] Dr. Troy Jeter Neutrophils/100 WBC (Bld) 87.1 % Critically high 43.0-75.0 [facility] Comment on above: Performed By: #### C YTO #### [facility] [address] [place] [address] Dr. Troy Jeter Platelet mean volume (Bld) [Entitic vol] 9.6 fL Normal 9.5-13.5 [facility] Comment on above: Performed By: #### C YTO #### [facility] [address] [place] [address] Dr. Troy Jeter PLT 176 103/ul Normal 150-450 [facility] Comment on above: Performed By: #### C YTO #### [facility] [address] [place] [address] Dr. Troy Jeter RBC 3.99 106/ul Critically low 4.20-5.40 [facility] Comment on above: Performed By: #### C YTO #### [facility] [address] [place] [address] Dr. Troy Jeter WBC 5.5 103/ul Normal 4.0-11.0 [facility] Comment on above: Performed By: #### C YTO #### [facility] [address] [place] [address] Dr. Troy Jeter PROF 14(COMP METB)on 022 Albumin [Mass/Vol] 3.1 g/dL Critically low 3.4-5.0 [facility] Comment on above: Performed By: #### C YTO #### [facility] [address] [place] [address] Dr. Troy Jeter Albumin/Globulin [Mass ratio] 0.9 {ratio} Normal [facility] Comment on above: Performed By: #### C YTO #### [facility] [address] [place] [address] Dr. Troy Jeter ALP [Catalytic activity/Vol] 58 U/L Normal 46-116 [facility] Comment on above: Performed By: #### C YTO #### [facility] [address] [place] [address] Dr. Troy Jeter ALT [Catalytic activity/Vol] 49 U/L Normal 14-59 [facility] Comment on above: Performed By: #### C YTO #### [facility] [address] [place] [address] Dr. Troy Jeter Anion gap [Moles/Vol] 15.7 mmol/L Normal [facility] Comment on above: Performed By: #### C YTO #### [facility] [address] [place] [address] Dr. Troy Jeter AST [Catalytic activity/Vol] 59 U/L Critically high 15-37 [facility] Comment on above: Performed By: #### C YTO #### [facility] [address] [place] [address] Dr. Troy Jeter Bilirubin [Mass/Vol] 0.3 mg/dL Normal 0.2-1.0 [facility] Comment on above: Performed By: #### C YTO #### [facility] [address] [place] [address] Dr. Troy Jeter Calcium [Mass/Vol] 8.1 mg/dL Critically low 8.5-10.1 [facility] Comment on above: Performed By: #### C YTO #### [facility] [address] [place] [address] Dr. Troy Jeter Chloride [Moles/Vol] 110 mmol/L Critically high 98-107 [facility] Comment on above: Performed By: #### C YTO #### [facility] [address] [place] [address] Dr. Troy Jeter CO2 [Moles/Vol] 20.8 mmol/L Critically low 21.0-32.0 [facility] Comment on above: Performed By: #### C YTO #### [facility] [address] [address] [address] Troy Jeter Creatinine [Mass/Vol] 0.94 mg/dL Normal 0.55-1.02 [facility] Comment on above: Performed By: #### C YTO #### [facility] [address] [address] [address] Troy Jeter EGFR-AF BANGLADESHI >60 Normal >=[address] [facility] Comment on above: Performed By: #### C YTO #### [facility] [address] [address] [address] Troy Jeter EGFR-NON AF BANGLADESHI 60 mL/min/1.73m2 Normal >=60 [facility] Comment on above: Performed By: #### C YTO #### [facility] [address] [place] [address] Dr. Troy Jeter Globulin (S) [Mass/Vol] 3.4 g/dL Normal [facility] Comment on above: Performed By: #### C YTO #### [facility] [address] [address] [address] Troy Jeter Glucose [Mass/Vol] 95 mg/dL Normal 74-106 [facility] Comment on above: Performed By: #### C YTO #### [facility] [address] [address] [address] Troy Jeter Potassium [Moles/Vol] 3.5 mmol/L Normal 3.5-5.1 [facility] Comment on above: Performed By: #### C YTO #### [facility] [address] [address] [address] Troy Jeter Protein [Mass/Vol] 6.5 g/dL Normal 6.4-8.2 [facility] Comment on above: Performed By: #### C YTO #### [facility] [address] [address] [address] Troy Jeter Sodium [Moles/Vol] 143 mmol/L Normal 136-145 [facility] Comment on above: Performed By: #### C YTO #### [facility] [address] [place] [address] Dr. Troy Jeter Urea nitrogen [Mass/Vol] 18.0 mg/dL Normal 7.0-18.0 [facility] Comment on above: Performed By: #### C YTO #### [facility] [address] [place] [address] Dr. Troy Jeter Urea nitrogen/Creatinine [Mass ratio] 19.1 mg/mg Normal [facility] Comment on above: Performed By: #### C YTO #### [facility] [address] [place] [address] Dr. Troy Jeter CBC W MANUAL DIFFon 03-28-20 ATYPICAL LYMPH # Normal [facility] Comment on above: Performed By: #### C YTO #### [facility] [address] [place] [address] Dr. Troy Jeter ATYPICAL LYMPH % Normal [facility] Comment on above: Performed By: #### C YTO #### [facility] [address] [place] [address] Dr. Troy Jeter BAND # 0.1 103/ul Normal 0.0-0.3 [facility] Comment on above: Performed By: #### C YTO #### [facility] [address] [place] [address] Dr. Troy Jeter BAND % 1 % Normal 0-5 [facility] Comment on above: Performed By: #### C YTO #### [facility] [address] [place] [address] Dr. Troy Jeter BASOM # 0.08 103/ul Normal 0.00-0.10 [facility] Comment on above: Performed By: #### C YTO #### [facility] [address] [place] [address] Dr. Troy Jeetr BASOM % 1.0 % Normal 0.2-2.0 [facility] Comment on above: Performed By: #### C YTO #### [facility] [address] [place] [address] Dr. Troy Jeter BLAST # Normal [facility] Comment on above: Performed By: #### C YTO #### [facility] [address] [place] [address] Dr. Troy Jeter BLAST % Normal [facility] Comment on above: Performed By: #### C YTO #### [facility] [address] [place] [address] Dr. Troy Jeter CORRECTED WBC Normal 4.0-11.0 [facility] Comment on above: Performed By: #### C YTO #### [facility] [address] [place] [address] Dr. Troy Jeter EOS # 0.00 103/ul Normal 0.00-0.70 [facility] Comment on above: Performed By: #### C YTO #### [facility] [address] [place] [address] Dr. Troy Jeter EOS% 0.0 % Critically low 0.9-7.0 [facility] Comment on above: Performed By: #### C YTO #### [facility] [address] [place] [address] Dr. Troy Jeter HCT 40.2 % Normal 36.0-48.0 [facility] Comment on above: Performed By: #### C YTO #### [facility] [address] [place] [address] Dr. Troy Jeter HGB 12.5 g/dl Normal 12.0-16.0 [facility] Comment on above: Performed By: #### C YTO #### [facility] [address] [place] [address] Dr. Troy Jeter LYMPHM # 0.23 103/ul Critically low 1.20-3.80 [facility] Comment on above: Performed By: #### C YTO #### [facility] [address] [place] [address] Dr. Troy Jeter LYMPHM% 3.0 % Critically low 20.5-60.0 [facility] Comment on above: Performed By: #### C YTO #### [facility] [address] [place] [address] Dr. Troy Jeter MCH 27.1 pg Normal 26.7-34.0 [facility] Comment on above: Performed By: #### C YTO #### [facility] [address] [place] [address] Dr. Troy Jeter MCHC 31.1 g/dl Normal 29.9-35.2 [facility] Comment on above: Performed By: #### C YTO #### [facility] [address] [place] [address] Dr. Troy Jeter MCV 87.2 fL Normal 81.0-99.0 [facility] Comment on above: Performed By: #### C YTO #### [facility] [address] [place] [address] Dr. Troy Jeter METAMYELOCYTE # Normal [facility] Comment on above: Performed By: #### C YTO #### [facility] [address] [place] [address] Dr. Troy Jeter METAMYELOCYTE % Normal [facility] Comment on above: Performed By: #### C YTO #### [facility] [address] [place] [address] Dr. Troy Jeter MONOM# 0.08 103/ul Critically low 0.30-0.80 [facility] Comment on above: Performed By: #### C YTO #### [facility] [address] [place] [address] Dr. Troy Jeter MONOM% 1.0 % Critically low 1.7-12.0 [facility] Comment on above: Performed By: #### C YTO #### [facility] [address] [place] [address] Dr. Troy Jeter MPV 10.0 fL Normal 9.5-13.5 [facility] Comment on above: Performed By: #### C YTO #### [facility] [address] [place] [address] Dr. Troy Jeter MYELOCYTE # Normal [facility] Comment on above: Performed By: #### C YTO #### [facility] [address] [address] [address] Troy Jeter MYELOCYTE % Normal [facility] Comment on above: Performed By: #### C YTO #### [facility] [address] [address] [address] Troy Jeter NRBC Normal [facility] Comment on above: Performed By: #### C YTO #### [facility] [address] [address] [address] Troy Jeter PLT 230 103/ul Normal 150-450 [facility] Comment on above: Performed By: #### C YTO #### [facility] [address] [address] [address] Troy Jeter RBC 4.61 106/ul Normal 4.20-5.40 [facility] Comment on above: Performed By: #### C YTO #### [facility] [address] [place] [address] Dr. Troy Jeter RDW 13.8 % Normal 11.0-15.0 [facility] Comment on above: Performed By: #### C YTO #### [facility] [address] [address] [address] Troy Jeter SEG # 7.14 103/ul Critically high 1.40-6.[address] [facility] Comment on above: Performed By: #### C YTO #### [facility] [address] [address] [address] Troy Jeter SEG % 94.0 % Critically high 43.0-75.0 [facility] Comment on above: Performed By: #### C YTO #### [facility] [address] [place] [address] Dr. Troy Jeter WBC 7.6 103/ul Normal 4.0-11.0 [facility] Comment on above: Performed By: #### C YTO #### [facility] [address] ABD/PELVIS WO CONon [...] ABDIAZIZ HALEY Date: 2022-03-28 16:37 Normal [facility] SARS-CoV-2 (COVID-19) RNA BRANDEN+probe Ql (Unsp spec) Not detected Normal NOT DETECTED [facility] Comment on above: Result Comment: [...] for this test is supported by the [place] of [employer] and Human Service's declaration that [...] used). Performed By: #### C VDTBH #### [facility] [address] [place] [address] Dr. Troy Jeter ER URINE PROFILEon 2 Bilirubin Ql (U) Negative Normal NEGATIVE [facility] Comment on above: Performed By: #### C BC #### [facility] [address] [place] [address] Dr. Troy Jeter Clarity (U) CLEAR Normal CLEAR [facility] Comment on above: Performed By: #### C BC #### [facility] [address] [place] [address] Dr. Troy Jeter Color (U) LT. YELLOW Normal YELLOW [facility] Comment on above: Performed By: #### C BC #### [facility] [address] [place] [address] Dr. Troy INMAN A micrscopic examination will be performed if indicated. Normal [facility] Comment on above: Performed By: #### C BC #### [facility] [address] [place] [address] Dr. Troy Jeter Glucose Ql (U) Negative Normal NEGATIVE [facility] Comment on above: Performed By: #### C BC #### [facility] [address] [place] [address] Dr. Troy Jeter Hemoglobin Ql (U) SMALL Abnormal NEGATIVE [facility] Comment on above: Performed By: #### C BC #### [facility] [address] [place] [address] Dr. Troy Jeter Ketones Ql (U) Negative Normal NEGATIVE [facility] Comment on above: Performed By: #### C BC #### [facility] [address] [place] [address] Dr. Troy Jeter LEUKOCYTES Negative Normal NEGATIVE [facility] Comment on above: Performed By: #### C BC #### [facility] [address] [place] [address] Dr. Troy Jeter Nitrite Ql (U) Negative Normal NEGATIVE [facility] Comment on above: Performed By: #### C BC #### [facility] [address] [place] [address] Dr. Troy Jeter pH (U) 6.0 [pH] Normal 5-9 [facility] Comment on above: Performed By: #### C BC #### [facility] [address] [place] [address] Dr. Troy Jeter SPEC GRAVITY 1.020 Normal 1.005-<=1.025 [facility] Comment on above: Performed By: #### C BC #### [facility] Laboratory [address] [place] [address] Dr. Troy Jeter UA PROTEIN Negative Normal NEGATIVE/ TRACE [facility] Comment on above: Performed By: #### C BC #### [facility] [address] [place] [address] Dr. Troy Jeter UR MICRO IND INDICATED Normal [facility] Comment on above: Performed By: #### C BC #### [facility] [address] [place] [address] Dr. Troy Jeter Urobilinogen Qn (U) 0.2 {Kriss'U}/dL Normal 0.2 - 1. 0 [facility] Comment on above: Performed By: #### C BC #### [facility] [address] [place] [address] Dr. Troy Jeter GI PANEL (PCR)on 03-28-2022 Adenovirus F 40/41 Not detected Normal NOT DETECTED [facility] Comment on above: Performed By: #### C YTO #### [facility] [address] [place] [address] Dr. Troy Jeter Astrovirus Not detected Normal NOT DETECTED [facility] Comment on above: Performed By: #### C YTO #### [facility] [address] [place] [address] Dr. Troy Cid. Diff toxin A/B Not detected Normal NOT DETECTED [facility] Comment on above: Performed By: #### C YTO #### [facility] [address] [place] [address] Dr. Troy Jeter Campylobacter Not detected Normal NOT DETECTED The [facility] Comment on above: Performed By: #### C YTO #### [facility] [address] [place] [address] Dr. Troy Jeter Cryptosporidium Not detected Normal NOT DETECTED [facility] Comment on above: Performed By: #### C YTO #### [facility] [address] [place] [address] Dr. Troy Jeter Cyclos. Cayetanensis Not detected Normal NOT DETECTED [facility] Comment on above: Performed By: #### C YTO #### [facility] [address] [place] [address] Dr. Troy Jeter E. Coli O157 Not Applicable Normal Not Applicable [facility] Comment on above: Performed By: #### C YTO #### [facility] [address] [place] [address] Dr. Troy Jeter E. histolytica Not detected Normal NOT DETECTED The [facility] Comment on above: Performed By: #### C YTO #### [facility] [address] [place] [address] Dr. Troy Jeter EAEC Not detected Normal NOT DETECTED [facility] Comment on above: Performed By: #### C YTO #### [facility] [address] [place] [address] Dr. Troy Jeter EIEC Not detected Normal NOT DETECTED [facility] Comment on above: Performed By: #### C YTO #### [facility] [address] [place] [address] Dr. Troy Jeter EPEC Not detected Normal NOT DETECTED [facility] Comment on above: Performed By: #### C YTO #### [facility] [address] [place] [address] Dr. Troy Jeter ETEC Not detected Normal NOT DETECTED [facility] Comment on above: Performed By: #### C YTO #### [facility] [address] [place] [address] Dr. Troy Jeter G. Lamblia Not detected Normal NOT DETECTED [facility] Comment on above: Performed By: #### C YTO #### [facility] [address] [address] [address] Troy KIMBROUGH CONTROLS PASSED Normal The [facility] Comment on above: Performed By: #### C YTO #### [facility] [address] [address] [address] Troy PAYTON BAR HEADER GI PANEL BACTERIA Normal T [facility] Comment on above: Performed By: #### C YTO #### [facility] [address] [address] [address] Troy JIMENEZ ECOLI GI PANEL DIARRHEAGEN IC E.COLI / SHIGELLA Normal [facility] Comment on above: Performed By: #### C YTO #### [facility] [address] [address] [address] Troy JIMENEZ INFO SEE BELOW Normal [facility] Comment on above: Result Comment: EAEC - Enteroaggregative E. Coli EPEC- Enteropathogenic E. Coli ETEC- Enterotoxigenic E. Coli lt/st STEC- Shigella-like toxin-producing E. Coli stx1/stx2 EIEC- Shigella/Enteroinvasive E. Coli Performed By: #### C YTO #### [facility] [address] [address] [address] Troy JIMENEZ PARASITES GI PANEL PARASITES Normal [facility] Comment on above: Performed By: #### C YTO #### [facility] [address] [address] [address] Troy JIMENEZ VIRUS GI PANEL VIRUSES Normal [facility] Comment on above: Performed By: #### C YTO #### [facility] [address] [address] [address] Troy Jeter Norovirus GI/GII Not detected Normal NOT DETECTED [facility] Comment on above: Performed By: #### C YTO #### [facility] [address] [address] [address] Troy Jeter P. Shigelloides Not detected Normal NOT DETECTED [facility] Comment on above: Performed By: #### C YTO #### [facility] [address] [place] [address] Dr. Troy Jeter Rotavirus A Detected Abnormal NOT DETECTED The [facility] Comment on above: Performed By: #### C YTO #### [facility] [address] [place] [address] Dr. Troy Jeter Salmonella Not detected Normal NOT DETECTED [facility] Comment on above: Performed By: #### C YTO #### [facility] [address] [place] [address] Dr. Troy Jeter Sapovirus Not detected Normal NOT DETECTED [facility] Comment on above: Performed By: #### C YTO #### [facility] [address] [place] [address] Dr. Troy Jeter STEC Not detected Normal NOT DETECTED [facility] Comment on above: Performed By: #### C YTO #### [facility] [address] [place] [address] Dr. Troy Jeter Vibrio Not detected Normal NOT DETECTED [facility] Comment on above: Performed By: #### C YTO #### [facility] [address] [place] [address] Dr. Troy Jeter Vibrio Cholera Not detected Normal NOT DETECTED The [facility] Comment on above: Performed By: #### C YTO #### [facility] [address] [place] [address] Dr. Troy Jeter Y. Enterocolitica Not detected Normal NOT DETECTED [facility] Comment on above: Performed By: #### C YTO #### [facility] [address] [place] [address] Dr. Troy Jeter LACTATE/LACTIC ACIDon 2021 Lactate [Moles/Vol] 1.7 mmol/L Normal 0.4-1.9 [facility] Comment on above: Performed By: #### C BC #### [facility] [address] [place] [address] Dr. Troy Jeter LIPASEon 03-28-2022 Lipase [Catalytic activity/Vol] 135.0 U/L Normal 73.0-393.0 [facility] Comment on above: Performed By: #### L IPA, CMP #### [facility] [address] [address] [address] Troy Jeter PROF 14(COMP METB)on 022 Albumin [Mass/Vol] 3.9 g/dL Normal 3.4-5.0 [facility] Comment on above: Performed By: #### L IPA, CMP #### [facility] [address] [address] [address] Troy Jeter Albumin/Globulin [Mass ratio] 1.0 {ratio} Normal [facility] Comment on above: Performed By: #### L IPA, CMP #### [facility] [address] [place] [address] Dr. Troy Jeter ALP [Catalytic activity/Vol] 81 U/L Normal 46-116 [facility] Comment on above: Performed By: #### L IPA, CMP #### [facility] [address] [place] [address] Dr. Troy Jeter ALT [Catalytic activity/Vol] 45 U/L Normal 14-59 [facility] Comment on above: Performed By: #### L IPA, CMP #### [facility] [address] [address] [address] Tory Jeter Anion gap [Moles/Vol] 15.2 mmol/L Normal [facility] Comment on above: Performed By: #### L IPA, CMP #### [facility] [address] [address] [address] Troy Jeter AST [Catalytic activity/Vol] 42 U/L Critically high 15-37 [facility] Comment on above: Performed By: #### L IPA, CMP #### [facility] [address] [address] [address] Troy Jeter Bilirubin [Mass/Vol] 0.5 mg/dL Normal 0.2-1.0 [facility] Comment on above: Performed By: #### L IPA, CMP #### [facility] [address] [place] [address] Dr. Troy Jeter Calcium [Mass/Vol] 9.4 mg/dL Normal 8.5-10.1 [facility] Comment on above: Performed By: #### L IPA, CMP #### [facility] [address] [address] [address] Troy Jeter Chloride [Moles/Vol] 105 mmol/L Normal 98-107 [facility] Comment on above: Performed By: #### L IPA, CMP #### [facility] [address] [address] [address] Troy Jeter CO2 [Moles/Vol] 23.7 mmol/L Normal 21.0-32.[address] [facility] Comment on above: Performed By: #### L IPA, CMP #### [facility] [address] [address] [address] Troy Jeter Creatinine [Mass/Vol] 0.91 mg/dL Normal 0.55-1.02 [facility] Comment on above: Performed By: #### L IPA, CMP #### [facility] [address] [place] [address] Dr. Troy Jeter EGFR-AF BANGLADESHI >60 Normal >=[address] [facility] Comment on above: Performed By: #### L IPA, CMP #### [facility] [address] [address] [address] Troy Jeter EGFR-NON AF BANGLADESHI >60 Normal >=60 [facility] Comment on above: Performed By: #### L IPA, CMP #### [facility] [address] [address] [address] Troy Jeter Globulin (S) [Mass/Vol] 4.0 g/dL Normal [facility] Comment on above: Performed By: #### L IPA, CMP #### [facility] [address] [address] [address] Troy Jeter Glucose [Mass/Vol] 119 mg/dL Critically high 74-106 [facility] Comment on above: Performed By: #### L IPA, CMP #### [facility] [address] [address] [address] Troy Jeter Potassium [Moles/Vol] 3.9 mmol/L Normal 3.5-5.1 [facility] Comment on above: Performed By: #### L IPA, CMP #### [facility] [address] [place] [address] Dr. Troy Jeter Protein [Mass/Vol] 7.9 g/dL Normal 6.4-8.2 [facility] Comment on above: Performed By: #### L IPA, CMP #### [facility] [address] [place] [address] Dr. Troy Jeter Sodium [Moles/Vol] 140 mmol/L Normal 136-145 [facility] Comment on above: Performed By: #### L IPA, CMP #### [facility] [address] [place] [address] Dr. Troy Jeter Urea nitrogen [Mass/Vol] 16.0 mg/dL Normal 7.0-18.0 [facility] Comment on above: Performed By: #### L IPA, CMP #### [facility] [address] [place] [address] Dr. Troy Jeter Urea nitrogen/Creatinine [Mass ratio] 17.6 mg/mg Normal [facility] Comment on above: Performed By: #### L IPA, CMP #### [facility] [address] [place] [address] Dr. Troy Jeter URINE MICROSCOPIC ONLYon BACTERIA TRACE Abnormal NONE SEEN [facility] Comment on above: Performed By: #### C BC #### [facility] [address] [place] [address] Dr. Troy Jeter Bacteria identified Cx Nom (U) NOT INDICATED Normal [facility] Comment on above: Performed By: #### C BC #### [facility] [address] [place] [address] Dr. Troy Jeter CAST NONE SEEN Normal NONE SEEN [facility] Comment on above: Performed By: #### C BC #### [facility] [address] [place] [address] Dr. Troy Jeter Crystals LM Nom (Urine sed) NONE SEEN Normal NONE SEEN [facility] Comment on above: Performed By: #### C BC #### [facility] [address] [place] [address] Dr. Troy Jeter Epithelial cells LM Ql (Urine sed) FEW Abnormal NONE SEEN /RARE [facility] Comment on above: Performed By: #### C BC #### [facility] [address] [place] [address] Dr. Troy Jeter MUCOUS NONE SEEN Normal NONE SEEN [facility] Comment on above: Performed By: #### C BC #### [facility] [id number] Troy Jeter RBC 2-5 Abnormal 0-2 [facility] Comment on above: Performed By: #### C BC #### [facility] [address] [place], [place] [address] Dr. Troy Jeter WBC 0-2 Abnormal NONE SEEN [facility] Comment on above: Performed By: #### C BC #### [facility] [address] [place] [address] Dr. Troy Jeter [facility] Surgical Pathology Depar tmenton 08-13-2020 [facility] Surgical Pathology Department Name DANIELLA BJEARANO Pathologist: AMEE KELSEY DMD Date of Procedure: 08/13/2020 Date Received: 08/17/2020 Date Reported 08/25/2020 Submitting Physician: BUTCH LONG DDS Location: [facility] Other External # FINAL DIAGNOSIS A. LEFT LATERAL TONGUE, EXCISION: -- TRAUMATIC ULCER -- NEGATIVE FOR DYSPLASIA OR MALIGNANCY ICD-10/CPT: [id number] Electronically Signed Out By AMEE KELSEY DMD/ELIASS [...] sectioned and entirely submitted in 2 cassettes. [facility] Summary of Cassettes: Specimen Label Site A 1 tips 2 body of ellipse [facility]/08/19/2020 [facility] Department of Pathology [address] [place] [address] Normal [facility] Comment on above: Performed By: #### U [facility] #### [facility] Surgical Pathology Department [address] [place] [address] Cardiovascular Lab Reporton 06-12-2020 Cardiovascular Lab Report [facility] Patient Name: [facility] A MR #: [id number] Department of Physician: Nasra Bustos M.D. Division of Service Date: 06/11/2020 Cardiology Birthdate: 1960 Adult Cardiovascular Room #: [address] [place] [address] Cardiovascular Laboratory Report INDICATION: The patient a [...] signed informed consent. She was brought to cath lab nurse in a fasting state. The right neck area was prepped and draped in usual fashion. Using ultrasound guidance and micropuncture technique, the right internal jugular vein was accessed. A 6-Venezuelan x 11 cm sheath was placed. A 6-Venezuelan Duron catheter was used for right heart catheterization with measurement of pressures and calculation of cardiac output using the estimated Daysi method. Duron catheter was removed. Access in the right radial artery was obtained using micropuncture technique. A 6-Venezuelan x 11 cm Hydrophilic sheath was advanced. Verapamil was given through the sheath and heparin was administered intravenously. Note that modified David's test was favorable on the right. Initial catheter advancement was made, feasible using an angled Glidewire to overcome a radial artery loop, following which bilateral selective coronary angiography was performed using 6-Venezuelan JL3.5 and JR5 diagnostic catheter. Catheters were [...] up in Cardiology Clinic. Electronically Signed by: Nasra Bustos M.D. 06/13/2020 07:08 A Nasra Bustos M.D. Date Dict: 06/11/2020/03:46 P/Nasra Bustos M.D. Date Trans: 06/12/2020 04:00 Chris/marguerite [id number] cc: Bayron Singh M.D. [address] [facility] [address] Normal [facility] *SARS-CoV-2 COVID-19on 06-09 [id number] Not Detected Normal Not Detected [facility] Comment on above: Order Comment: The A ptima SARS-CoV-2 assay is a nucleic acid amplification test intended for the qualitative detection of RNA from SARS-CoV-2 isolated and purified from nasopharyngeal (HAND BOX FOLDER),oropharyngeal (OP), nasal swab, sputum, and bronchoalveolar lavage (BAL) specimens from patients with signs and symptoms of infection who are suspected of COVID-19. Results are for the identification of SARS-CoV-2 RNA. The SARS-CoV-2 RNA is generally detectable during the acute phase of infection. The Aptima SARS-CoV-2 Assay on the [employer] and [employer] Fusion system is intended for use by laboratory personnel specifically instructed and trained in the operation of the [place] and [employer] Fusion system. The Aptima SARS-CoV-2 assay is [...] information. Performed By: #### 3 [id number] #### [facility] [address] RUST Chidi 02-17-2020 DAISHA Telephone ([employer]) DANIELLA BEJARANO ([id number]) 1960 F Date Time Provider Department 02/17/20 BONNY FELIPE During your visit today, we recorded the following information about you: Ai Adam [facility] 02/17/2020 2:53 PM Signed Records faxed to [facility]. Allergies As of Date: 02/17/2020 (No [...] Status:Closed by AI COLVIN on 02/17/20 Normal [facility] Vital Signs Date Time Vital Sign Value Performing Clinician Facility 07-03-2024 13:35-0400 Body temperature 98.24 [degF[facility] 13:35-0400 Diastolic blood pressure 78 mm[facility]Hg[facility] 13:35-0400 Heart rate 63 /min [facility]-03-2024 13:35-0400 Mean blood pressure 91 mm[Hg] Jeff Booth [facility] 07-03-2024 13:35-0400 Respiratory rate 16 /min Jeff Booth [facility] 07-03-2024 13:35-0400 SaO2% (BldA) [Mass fraction] 98 % [facility] Emmy [facility] 07-03-2024 13:35-0400 Systolic blood pressure 117 mm[Hg] [facility] 04-26-2023 10:40-0400 Heart rate 84 /min [facility] 04-26-2023 10:40-0400 SaO2% (BldA) [Mass fraction] 98 % [facility] 04-26-2023 10:40-0400 Body temperature 97.52 [degF] [facility] 04-26-2023 10:39-0400 Diastolic blood pressure 75 mm[Hg] [facility] 04-26-2023 10:39-0400 Mean blood pressure 87 mm[Hg] [facility]-26-[facility]23 10:39-0400 Systolic blood pressure 111 mm[Hg] [facility] 04-26-2023 10:39-0400 Respiratory rate 16 /min [facility] 01-04-2023 08:01-0500 Blood Pressure Location Dina Lue [facility] 01-04-2023 08:01-0500 Diastolic blood pressure 82 mm[Hg] Dina Lue [facility] 01-04-2023 08:01-0500 Heart rate 71 /min Dina Lue [facility] 01-04-2023 08:01-0500 Systolic blood pressure 124 mm[Hg] Dina Lue [facility] 10-26-2022 10:26-0500 Blood Pressure Location AI REDMOND [facility] 10-26-2022 10:26-0500 Diastolic blood pressure 84 mm[Hg] AI RUY [facility] 10-26-2022 10:26-0500 Heart rate 65 /min AI RUY [facility] 10-26-2022 10:26-0500 Respiratory rate 16 /min AI RUY [facility] 10-26-2022 10:26-0500 Systolic blood pressure 123 mm[Hg] AI RUY [facility] 10-19-2022 08:01-0500 Blood Pressure Location Dina Lue [facility] 10-19-2022 08:01-0500 Diastolic blood pressure 64 mm[Hg] Dian Lue [facility] 10-19-2022 08:01-0500 Heart rate 66 /min Dina Lue [facility] 10-19-2022 08:01-0500 Systolic blood pressure 145 mm[Hg] Dina Lue [facility] 10-12-2022 08:11-0500 Blood Pressure Location Dina Lue [facility] 10-12-2022 08:11-0500 Diastolic blood pressure 68 mm[Hg] Dina Lue [facility] 10-12-2022 08:11-0500 Heart rate 74 /min Dina Lue [facility] 10-12-2022 08:11-0500 Respiratory rate 16 /min Dina Lue [facility] 10-12-2022 08:11-0500 Systolic blood pressure 132 mm[Hg] Dina Lue [facility] 07-06-2022 10:28-0400 Blood Pressure Location Dina Lue [facility] 07-06-2022 10:28-0400 Diastolic blood pressure 62 mm[Hg] Dina Lue [facility] 07-06-2022 10:28-0400 Heart rate 74 /min Dina Lue [facility] 07-06-2022 10:28-0400 Respiratory rate 16 /min Dina Lue [facility] 07-06-2022 10:28-0400 Systolic blood pressure 98 mm[Hg] Dina Lue [facility] 03-02-2022 09:27-0400 Blood Pressure Location AI RUY [facility] 03-02-2022 09:27-0400 Diastolic blood pressure 66 mm[Hg] AI RUY [facility] 03-02-2022 09:27-0400 Heart rate 64 /min AI RUY [facility] 03-02-2022 09:27-0400 Systolic blood pressure 137 mm[Hg] [facility] 02-09-2022 08:17-0400 Blood Pressure [facility] 02-09-2022 08:17-0400 Diastolic blood pressure 64 mm[Hg] Dina Lue [facility] 02-09-2022 08:17-0400 Heart rate 60 /min [facility] 02-09-2022 08:17-0400 Respiratory rate 16 /min [facility] 02-09-2022 08:17-0400 Systolic blood pressure 133 mm[Hg] [facility] 02-02-2022 08:03-0400 Blood Pressure Location [facility] 02-02-2022 08:03-0400 Diastolic blood pressure 100 mm[Hg] [facility] 02-02-2022 08:03-0400 Heart rate 72 /min Dina Lue [facility] 02-02-2022 08:03-0400 Systolic blood pressure 144 mm[Hg] Dina Lue [facility] 01-26-2022 08:18-0400 Blood Pressure Location [facility] 01-26-2022 08:18-0400 Diastolic blood pressure 75 mm[Hg] [facility] 01-26-2022 08:18-0400 Heart rate 56 /min [facility] 01-26-2022 08:18-0400 Systolic blood pressure 128 mm[Hg] Dina Lue [facility] Encounters Encounter Date Encounter Type Care Provider Facility Start: 07-10-2024 End: 07-10-2024 ambulatory [facility] Start: 07-03-2024 End: 07-03-2024 ambulatory Jeff Booth [place] [place]: 07-03-2024 End: 07-03-2024 Patient encounter procedure Jeff Booth [facility] Start: 05-21-2024 End: 05-21-2024 ambulatory BAYRON SINGH Not Available Start: 04-10-2024 End: 04-10-2024 ambulatory [facility] Start: 03-19-2024 End: 03-19-2024 ambulatory JENN VIEIRA [facility] Start: 02-14-2024 End: 02-14-2024 ambulatory MD Bayron Singh Work Phone: [facility] Work Phone: Start: 02-14-2024 End: 02-14-2024 Departed Referred MD Bayron Singh Work Phone: [facility] Start: 02-13-2024 End: 02-13-2024 ambulatory Jeff Cordova Facility:[facility] Start: 02-09-2024 End: 02-09-2024 ambulatory [facility] Start: 02-09-2024 End: 02-09-2024 Encounter for preprocedural cardiovascular examination [facility] Start: 01-24-2024 End: 01-24-2024 ambulatory MYRNA TASHA Not Available Start: 01-10-2024 ambulatory [facility] Start: 01-02-2024 End: 01-02-2024 ambulatory [facility] Start: 11-15-2023 End: 11-15-2023 ambulatory BAYRON SINGH Not Available Start: 10-04-2023 ambulatory [facility] Start: 04-26-2023 End: 04-26-2023 Patient encounter procedure Jeff Booth [facility] Start: 03-08-2023 Encounter for genera l adult medical examination without abnormal findings DR BAYRON SINGH [facility] Start: 03-06-2023 End: 03-07-[address] BAYRON SINGH Facility:[facility] Start: 03-02-2023 End: 03-03-[address] BAYRON SINGH Facility:[facility] Start: 03-02-2023 End: 03-03-2023 Encounter for general adult medical examination without abnormal findings DR BAYRON SINGH Facility:[facility] Start: 01-04-2023 End: 01-04-2023 Patient encounter procedure Dina Cobb [facility] Start: 12-28-2022 End: 12-28-2022 ambulatory DINA COBB . Facility:[facility] Start: 12-25-2022 Encounter for preprocedural cardiovascular examination DINA COBB . [facility] Start: 12-21-2022 End: 12-22-2022 ambulatory DINA COBB . Facility:[facility] Start: 12-21-2022 End: 12-22-2022 Encounter for preprocedural cardiovascular examination DINA COBB . Facility:[facility] Start: 12-14-2022 End: 12-14-2022 Lab Drop off Blanca Fitzpatrick [facility] Start: 12-14-2022 End: 12-14-2022 Patient encounter procedure Dina Cobb [facility] Start: 12-07-2022 End: 12-07-2022 ambulatory DINA COBB . Facility:[facility] Start: 11-23-2022 End: 11-24-[address] BAYRON SINGH Facility:[facility] Start: 11-05-2022 End: 11-05-[address] BAYRON SINGH Facility:[facility] Start: 10-26-2022 End: 10-26-2022 Patient encounter procedure AI REDMOND [facility] Start: 10-19-2022 End: 10-19-2022 Patient encounter procedure Dina Cobb [facility] Start: 10-12-2022 End: 10-12-2022 Patient encounter procedure Dina Cobb [facility] Start: 09-02-2022 End: 09-03-[address] MICAELA DE . Facility:[facility] Start: 08-10-2022 End: 08-10-2022 ambulatory DINA M LUE . Facility:[facility] Start: 07-22-2022 End: 07-23-2022 ambulatory DINA M LUE . Facility:[facility] Start: 07-06-2022 End: 07-06-2022 Patient encounter procedure Dina M. Lue [facility] Start: 07-01-2022 End: 07-02-2022 ambulatory DINA M LUE . Facility:[facility] Start: 06-29-2022 End: 06-29-2022 Patient encounter procedure Dina M. Lue [facility] Start: 06-22-2022 End: 06-22-2022 Patient encounter procedure Dina M. Lue [facility] Start: 05-26-2022 End: 05-27-[address] BAYRON SINGH Facility:[facility] Start: 05-18-2022 End: 05-18-2022 Patient encounter procedure Dina M. Lue [facility] Start: 05-11-2022 End: 05-11-2022 ambulatory DINA M LUE . Facility:[facility] Start: 05-09-2022 Encounter for preprocedural laboratory examination DINA M LUE . [facility] Start: 05-04-2022 End: 05-05-2022 ambulatory DINA M LUE . Facility:[facility] Start: 05-04-2022 End: 05-05-2022 Encounter for preprocedural laboratory examination DINA M LUE . Facility:[facility] Start: 04-27-2022 End: 04-27-2022 ambulatory DINA M LUE . Facility:[facility] Start: 04-11-2022 End: 04-12-[address] BAYRON SINGH Facility:[facility] Start: 03-28-2022 End: 03-31-[address] BAYRON SINGH Facility:[facility] Start: 03-25-2022 End: 03-25-2022 Lab Drop off Loco MARRERO [facility] Start: 03-25-2022 End: 03-25-2022 Patient encounter procedure Loco MARRERO [facility] Start: 03-02-2022 End: 03-02-2022 Patient encounter procedure AI REDMOND [facility] Start: 02-09-2022 End: 02-09-2022 Patient encounter procedure Dina Cobb [facility] Start: 02-02-2022 End: 02-02-2022 Patient encounter procedure Dina Cobb [facility] Start: 01-26-2022 End: 01-26-2022 Lab Drop off Dina Cobb [facility] Start: 01-26-2022 End: 01-26-2022 Patient encounter procedure Dina Cobb [facility] Start: 06-11-2020 End: 06-12-2020 Patient encounter procedure PROVIDER UNKNOWN Facility:[facility] Procedures Date Procedure Procedure Detail Performing [...] Immunization Date Immunization Notes Care Provider [facility] 10-26-2022 bacillus calmette-gu nestor vaccine AIAMY DAVIDRY [facility] 10-19-2022 bacillus calmette-gu nestor vaccine Dina Lue [facility] 10-12-2022 bacillus calmette-gu nestor vaccine Dina Lue [facility] 09-02-2022 SARS-CoV-2 (COVID-19 ) [id number] vaccine Dina Lue [facility] 08-04-2022 influenza virus vacc ine, unspecified formulation Dina Lue [facility] 07-26-2022 bacillus calmette-gu nestor vaccine Dina Lue [facility] 07-06-2022 bacillus calmette-gu nestor vaccine Dina Lue [facility] 06-29-2022 bacillus calmette-gu nestor vaccine Dina Lue [facility] 06-22-2022 bacillus calmette-gu nestor vaccine Dina Lue [facility] 03-02-2022 bacillus calmette-gu nestor vaccine AI REDMOND [facility] 02-23-2022 bacillus calmette-gu nestor vaccine AI RUY [facility] 02-16-2022 bacillus calmette-gu nestor vaccine AI RUY [facility] 02-09-2022 bacillus calmette-gu nestor vaccine Dina Lue [facility] 02-02-2022 bacillus calmette-gu nestor vaccine Dina Lue [facility] 01-26-2022 bacillus calmette-gu nestor vaccine Dina Lue [facility] 12-17-2021 pneumococcal polysaccharide vaccine, 23 valent Dina Lue [facility] 10-27-2021 bacillus calmette-gu nestor vaccine Dina Lue [facility] 10-19-2021 bacillus calmette-gu nestor vaccine Dina Lue [facility] 10-13-2021 bacillus calmette-gu nestor vaccine Dina Lue [facility] 10-06-2021 bacillus calmette-gu nestor vaccine Dina Lue [facility] 09-29-2021 bacillus calmette-gu nestor vaccine Dina Lue [facility] 09-22-2021 bacillus calmette-gu nestor vaccine Dina Lue [facility] 08-20-2021 SARS-CoV-2 (COVID-19 ) mRNA-1273 vaccine Dina Lue [facility] 08-19-2021 influenza virus vacc ine, unspecified formulation AI REDMOND [facility] 07-30-2021 influenza virus vacc ine, unspecified formulation Dina Lue [facility] 11-26-2020 SARS-CoV-2 (COVID-19 ) mRNA-1273 vaccine Dina Cobb [facility] 10-28-2020 SARS-CoV-2 (COVID-19 ) mRNA-1273 vaccine Dina Cobb [facility] 07-18-2018 influenza virus vacc ine, unspecified formulation Dina Cobb [facility] 07-30-2015 pneumococcal polysaccharide vaccine, 23 valent Dina Cobb [facility] Payers Date Payer Category Payer Self-pay [id number] 2019 Unknown [id number] 1961 Self-pay [id number] 1961 Unknown [id number] 1960 Unknown [id number] 2.16.8 40.1.026293.3.579.2.647 1960 Unknown [id number] 2.16.84 0.1.137718.3.579.2.593 1958 Unknown [id number] 2.16.84 0.1.323286.3.579.2.593 1958 Unknown [id number] 2.16.84 0.1.725905.3.579.2.593 1958 Unknown [id number] 2.16.84 0.1.139233.3.579.2.593 1958 Unknown [id number] 2.16.84 0.1.387293.3.579.2.593 1958 Unknown [id number] 2.16.84 0.1.983800.3.579.2.593 1958 Unknown [id number] 2.16.84 0.1.639213.3.579.2.593 1958 Unknown [id number] 2.16.84 0.1.815209.3.579.2.593 1958 Unknown [id number] 2.16.84 0.1.124924.3.579.2.593 1958 Unknown [id number] 2.16.84 0.1.346423.3.579.2.593 1958 Unknown [id number] 2.16.84 0.1.727928.3.579.2.593 1958 Unknown [id number] 2.16.84 0.1.696343.3.579.2.593 1958 Unknown [id number] 2.16.84 0.1.301462.3.579.2.593 1958 Unknown [id number] 2.16.84 0.1.040483.3.579.2.593 1958 Unknown [id number] 2.16.84 0.1.133525.3.579.2.593 1958 Unknown [id number] 2.16.84 0.1.632347.3.579.2.593 1958 Unknown [id number] 2.16.84 0.1.627395.3.579.2.1259 1958 Unknown [id number] 2.16.84 0.1.234107.3.579.2.1259 1958 Unknown [id number] 2.16.84 0.1.837548.3.579.2.1259 1958 Unknown [id number] 2.16.8 40.1.974798.3.579.2.727 Unknown [id number] 2.16.84 0.1.122619.3.579.2.593 Unknown [id number] 2.16.8 40.1.033840.3.579.2.531 Unknown [id number] Social History Date Type Detail Facility Start: 01-26-2022 End: 07-03-2024 Tobacco smoking status Ex-smoker (finding) [facility] Tobacco smoking status Never [facility] Sex Assigned At Female [facility] Start: 1960 Sex Assigned At Female [facility] Functional Status Date Assessment Result Facility 01-04-2023 Functional Status N/A [facility] 10-26-2022 Functional Status N/A [facility] 10-19-2022 Functional Status N/A [facility] 10-12-2022 Functional Status N/A [facility] 07-06-2022 Functional Status N/A [facility] 06-22-2022 Functional Status N/A [facility] 05-18-2022 Functional Status N/A [facility] Clinical Notes 01-26-2022 to 07-10-2024 Note Date & Type Note Facility 07-10-2024 Note A. Unsatisfactory fo r evaluation. Scant cellularity due to obscuring lubricant. Examination of the the ThinPrep slide reveals primarily lubricant with rare urothelial cells. [facility] Comment on above: Order Comment: Via c nicoleto Performed By: #### L [id number] #### [facility] [address] [place] [place] [address] 07-10-2024 Note I PATIENT: Daniella Bejarano DATE OF : 1960 DATE OF VISIT: 07/10/24 [facility] FIRAS G. DIETER, M.D., F.A.C.S. Chief Complaint BCG unresponsive CIS HPI Ms. Daniella Bejarano is a 64 y.o. female with history of HTN, left [...] recurrent bladder tumor. Pathology revealed high-grade noninvasive applications consultant, muscularis propria present and uninvolved. - 01/26/2022: [...] diagnosis bilaterally. Therefore she was referred to co for further management. Ms. Bejarano underwent white [...] by the time she was referred to co and when she had outside bladder biopsy confirming BCG unresponsive CIS performed on 12/28/2022 and given bladder biopsy I performed on 03/13/2023 revealed no evidence of malignancy, th (more content not included)... [facility] 07-10-2024 Note Patient ID: Daniella Bejarano is a 64 y.o. female. Cystoscopy Date/Time: 07/10/2024 2:16 PM Performed by: Lisa Zelaya MD Authorized by: Lisa Zelaya MD Procedure - Bladder Cystoscopy: Procedure details: cystoscopy Post-procedure: Patient tolerance: Patient tolerated the procedure well with no immediate complications Preprocedure diagnosis BCG unresponsive CIS Postprocedure diagnosis BCG unresponsive CIS Procedure Flexible Cystourethroscopy Attending surgeon Lisa Zelaya MD Anesthesia 2% lidocaine jelly intraurethrally Complications None Indications Ms. Daniella Bejarano is 64 y.o. female undergoing a flexible cystoscopy for [...] the procedure room for the entire procedure. [facility] 07-03-2024 Note Oncology Progress No te Chief Complaint Hx Breast Ca; no questions or concerns. Oncological History/ROS/PE/Assessment and Plan 64 year old female with limited pmhx. 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 Dr. Ward performed R [...] She referred to Dr. Lisa Zelaya at [facility] who repeated the biopsy and was negative for cancer as well. He did 02/2023 cystoscopy with blue light, all pathology was negative at this time. She was recommended cystectomy, she declined. They also discussed pembrolizumab, but decision was made that BCG was failed and she is recommended for intravescular gem and taxotere intermittently for 5 years. 07/03/24 she is doing well enough. no new complaints. 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 she finished intravescle therapy in [place] and follows with them q3mos. She see Dr. Santiago in [place]. cancer free since december this year. She will switch back to Dr. Cobb soon for surveillance. no problems with breasts. she has been off of femara in 2021. Physical Examination General: Alert and oriented. Eye: Pupils are equal, round and reactive to light, Extraocular movements are intact, Normal conjunctiva. HENT: Normocephalic, Oral mucosa is moist, No pharyngeal erythema. Neck: Supple, Non-tender. Respiratory: Lungs are clear to auscultation. Cardiovascular: Normal rate, Regular rhythm, No murmur. Gastrointestinal: Soft, Non-tender. Lymphatics: No cervical, supraclavicular, axilla, inguinal adenopathy.. Musculoskeletal Normal range of motion. Integumentary: Warm, Dry, [place]. Neurologic: Alert, Oriented, Normal sensory. Psychiatric: Cooperative, Appropriate mood & affect. BREAST: Bilateral breast examination was performed. unchanged. R chest wall normal in appearance, no lumps or masses, no skin pathology, no R axillary adenopathy. L breast normal in appearance, no lumps or masses, no skin or nipple pathology, no L axillary adenopathy. Impression and Plan Hx R sided breast cancer 2017 hormone receptor positive, her2 neg. S/p unilateral mastectomy, negative lymph node and low risk oncotype dx. L mammogram upcoming april 2024. Completed femara in february 2022. Genetic testing negative in 2017. Hx provoked DVT in 2018 following knee surgery, completed 6 months of xarelto. Hx bladder cancer managed by urology. She has completed BCG induction and 2 rounds maintenance. offered cystectomy and declined. completed intravesicular gem and taxotere through Dr. Santiago in [place]. Follow-up No qualifying data available f/u prn. Medications aspirin 81 mg Oral EC Tab, Oral, Daily Benicar 40 mg Tab, Oral, Daily Estrace 0.1 mg/g Cream, See Instructions, 2 refills Gemtesa 75 mg oral tablet, 75 mg= 1 tab(s), Oral, Daily, 3 refills Lasix 20 mg Tab, Oral, Daily multivitamin with minerals, 1 tab, Oral, Daily nabumetone 750 mg Tab, 750 mg, Oral, Daily potassium chloride, 20 mg, Oral, Daily Protonix 40 mg Tab-DR, Oral, BID Vesicare 10 mg Tab, 10 mg= 1 tab(s), Oral, Daily, 3 refills Vitamin D, Oral, qWeek Vital Signs and Measurements Vital Signs and Measurements This Visit - Last 24 Hours T: 36.8 ?C (Oral) HR: 63 (Peripheral) RR: 16 BP: 117/78 SpO2: 98% HT: 162 cm HT: 162.0 cm WT: 124.9 kg WT: 124.9 kg (Dosing) BMI: 47.59 BSA: 2.37 Staging Information No information available Labs No Qualifying Data Available [facility] 04-10-2024 Note A. Satisfactory for evaluation. Examination of the ThinPrep slide reveals a hypocellular specimen containing scattered squamous cells and rare urothelial cells. [facility] Comment on above: Order Comment: Via carmen reyes Performed By: #### L [id number] ####[facility] [place] [address] 04-10-2024 Note Patient ID: Daniella Bejarano is [...] the procedure room for the entire procedure. [facility] 04-10-2024 Note I PATIENT: Daniella Bejarano DATE [...] recurrent bladder tumor. Pathology revealed high-grade noninvasive applications consultant, muscularis propria present and uninvolved. - 01/26/2022: [...] diagnosis bilaterally. Therefore she was referred to co for further management. Ms. Bejarano underwent white [...] by the time she was referred to co and when she had outside bladder biopsy confirming BCG unresponsive CIS performed on 12/28/2022 and given bladder biopsy I performed on 03/13/2023 revealed no evidence of malignancy, th (more content not included)... [facility] 04-03-2024 Note 04-03-24@ 0715 [place] copy with EMR procedure note along with pathology results faxed to referring office of Dr. Myrna Cordova @[phone]. [facility] 03-19-2024 Note Patient: Daniella stevens Procedure Summary Date: 03/19/24 Room / Location: [facility] Anesthesia Start: 1143 Anesthesia Stop: 1316 [...] Hydration status: balanced No notable events documented. [facility] 03-19-2024 Note Airway Date/Time: 03/19/2024 11:51 AM Urgency: elective General Information and Staff Patient location during procedure: OR Anesthesiologist: Lázaro Lopes MD Resident/MANUFACTURING ASSOCIATE/CAA: Kurtis Regalado DO Performed: resident/MANUFACTURING ASSOCIATE/CAA Indications and Patient Condition Indications for airway [...] 1 Number of other approaches attempted: 0 [facility] 03-19-2024 Note Patient: Daniella stevens Procedure Information Date/Time: 03/19/24 1115 Scheduled providers: Jenn Vieira MD; JOAN Bateman; Lázaro Lopes MD Procedure: DIAGNOSTIC COLONOSCOPY Location: [facility] Relevant Problems Anesthesia (+) Obstructive sleep [...] Plan discussed with JOAN. 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 Do not wear perfume, make-up, nail uzbek, or lotions on the day of your [...] need to make any changes, please call [phone]. Notify your surgeon if you develop any illness such as a cold, cough, fever, sore throat or vomiting between now and your surgery. Thank you for entrusting us with your care. [facility] Surgical Services Team [facility] 02-09-2024 Note RCRI= 1???points Cla ss II Risk 6.0???% 30-day risk of , MA, or cardiac arrest From a cardiac perspective pt may proceed with colonoscopy, she is a low risk for a low risk procedure. She may hold Aspirin if absolutely needed. Please monitor hemodynamics carefully and prevent any major fluid shifts. This is good for 6 months [facility] 02-09-2024 Note Hypertension is well controlled Continue olmesartan, and start toprol Renal function stable [facility] 02-09-2024 Note Noted sinus tachycar apollo with occasional PACs and PVCs- will start toprol 25 mg daily for management D/W pt to call office for low b/p, fatigue, lightheadedness/dizziness. Or any concerns [facility] 02-09-2024 Note [facility] CARDIOLOGY PROGR ESS NOTE [facility] HPI: Daniella Bejarano is a 63 [...] the proximal t (more content not included)... [facility] 02-09-2024 Note Patient here for fol [...] All other systems reviewed and are negative. [facility] 01-10-2024 Note Satisfactory for michele luation. Examination of the ThinPrep slide reveals a hypocellular specimen consisting of benign urothelial cells and squamous cells. [facility] Comment on above: Order Comment: Via c ysto Performed By: #### L [id number] ####[facility] [place] [address] 01-10-2024 Note Patient ID: Daniella Bejarano is [...] the procedure room for the entire procedure. [facility] 01-10-2024 Note I PATIENT: Daniella Bejarano [...] recurrent bladder tumor. Pathology revealed high-grade noninvasive applications consultant, muscularis propria present and uninvolved. - 01/26/2022: [...] diagnosis bilaterally. Therefore she was referred to co for further management. Ms. Bejarano underwent white [...] of malignancy, th (more content not included)... [facility] 01-02-2024 Note 2-3 day holter monit or today to assess for any arrythmias, PVC burden Check BMP and mag level today to assess electrolyte level She may benefit from beta neal dependent upon holter results [facility] 01-02-2024 Note C/O worsening SOB wi th exertion and edema, will check echocardiogram to assess cardiac function, RV function and rt sided pressures, valvular function [facility] 01-02-2024 Note stable [facility] 01-02-2024 Note Hypertension is well controlled currently 124/80 Continue olmesartan 40 mg daily. Depending upon holter monitor result she may benefit from a beta neal for frequent PVCs and palpitations [facility] 01-02-2024 Note Patient here c/o SOB [...] All other systems reviewed and are negative. [facility] 01-02-2024 Note [facility]TP CARDIOLOGY PROGR ESS [...] 0 [DISCONTINUED] ergocalciferol (Vitamin D-2) 1.25 MG (54100 Units) capsule Take by mouth. [DISCONTINUED] oxybutynin [...] - 1.02 mg/dL 1.07 High TBH EGFR-AF BANGLADESHI >=60 >60 TBH EGFR-NON AF BANGLADESHI >=60 51 Low BUN CREATININE RATIO 13.1 CALCIUM 8. (more content not included)... [facility] 10-04-2023 Note Satisfactory for michele luation. Examination of the ThinPrep slide reveals benign urothelial cells and squamous cells in a background of lubricant. [facility] Comment on above: Order Comment: Argelia reyes Performed By: #### L AB13 #### [facility] [address] [place] [address] 10-04-2023 Note Patient ID: Daniella Bejarano is [...] the procedure room for the entire procedure. [facility] 10-04-2023 Note I PATIENT: Daniella Bejarano [...] recurrent bladder tumor. Pathology revealed high-grade noninvasive applications consultant, muscularis propria present and uninvolved. - 01/26/2022: [...] diagnosis bilaterally. Therefore she was referred to co for further management. Ms. Bejarano underwent white [...] by the time she was referred to co and when she had outside bladder biopsy confirming BCG unresponsive CIS performed on 12/28/2022 and given bladder biopsy I performed on 03/13/2023 revealed no evidence of malignancy, th (more content not included)... [facility] 01-04-2023 Hospital Discharge instructions Patient Education [...] cells. Follow these instructions at home: Take goss-wkr-fihlmej and prescription medicines only as told by [...] is important. Where to find more information [place] [employer]: www.cancer.org [place] (NCI): www.cancer.gov Contact a health care provider [...] 10/18/2004 Document Revised: 09/28/2018 Document Reviewed: 09/19/2017 [employer] Patient Education 2020 [employer]. Follow Up Care 01/02/2023 12:19:37 With:Reza JAMES, ISAIAH Mckeon, URO Address: When: Unknown [facility] 10-19-2022 Hospital Discharge instructions Patient Education [...] cells. Follow these instructions at home: Take hvsd-iic-qxryagn and prescription medicines only as told by [...] is important. Where to find more information [place] [employer]: www.cancer.org [place] (NCI): www.cancer.gov Contact a health care provider [...] 10/18/2004 Document Revised: 09/28/2018 Document Reviewed: 09/19/2017 [employer] Patient Education 2019 [place]. [facility] 10-12-2022 Hospital Discharge instructions Patient Education 10/12/2022 [...] cells. Follow these instructions at home: Take szyb-pcf-rsvqvma and prescription medicines only as told by [...] is important. Where to find more information [place] [employer]: www.cancer.org [place] (NCI): www.cancer.gov Contact a health care provider [...] 10/18/2004 Document Revised: 09/28/2018 Document Reviewed: 09/19/2017 [employer] Patient Education 2020 [place]. Follow Up Care 08/22/2022 12:52:59 With:Reza JAMES, ISAIAH Mkceon, URO Address: When:1 week Comments:BCG #2 of #3 [facility] 10-05-2022 Hospital Discharge instructions Follow Up Care 10/05/2022 15:19:40 With:AI REDMOND PA-C, URL Address: [address] [id number] When: Unknown [facility] [place] 07-06-2022 Hospital Discharge instructions Patient Education [...] cells. Follow these instructions at home: Take rkde-qhh-zmeizuw and prescription medicines only as told by [...] is important. Where to find more information [place] [employer]: www.cancer.org [place] (NCI): www.cancer.gov Contact a health care provider [...] 10/18/2004 Document Revised: 09/28/2018 Document Reviewed: 09/19/2017 [employer] Patient Education 2020 [place]. Follow Up Care 05/18/2022 11:12:11 With:Reza JAMES, ISAIAH Mckeon, URO Address: When: Unknown [facility] [place] 06-29-2022 Hospital Discharge instructions Patient Education [...] cells. Follow these instructions at home: Take mufq-kvd-rtzczlu and prescription medicines only as told by [...] is important. Where to find more information [place] [employer]: www.cancer.org [place] (NCI): www.cancer.gov Contact a health care provider [...] 10/18/2004 Document Revised: 09/28/2018 Document Reviewed: 09/19/2017 [employer] Patient Education 2020 [place]. Follow Up Care 05/18/2022 11:11:14 With:Reza JAMES, Dina M., URL, URO Address: When:Within 1 Week(s) Comments:BCG #3 [facility] [place] 06-22-2022 Hospital Discharge instructions Patient Education [...] cells. Follow these instructions at home: Take gvhh-xql-zagzvhi and prescription medicines only as told by [...] is important. Where to find more information [place] [employer]: www.cancer.org National [place] (NCI): www.cancer.gov Contact a health care provider [...] 10/18/2004 Document Revised: 09/28/2018 Document Reviewed: 09/19/2017 [employer] Patient Education 2020 [place]. Follow Up Care 05/18/2022 11:09:55 With:Reza JAMES, ISAIAH Mckeon, URO Address: When:1 week Comments:bcg #2 [facility] [place] 05-18-2022 Hospital Discharge instructions Patient Education [...] cells. Follow these instructions at home: Take qpwb-bpb-xkpgydh and prescription medicines only as told by [...] is important. Where to find more information [place] [employer]: www.cancer.org [place] (NCI): www.cancer.gov Contact a health care provider [...] 10/18/2004 Document Revised: 09/28/2018 Document Reviewed: 09/19/2017 [employer] Patient Education 2020 [place]. Follow Up Care 05/12/2022 12:08:46 With:Reza JAMES, Dina Oconnell URL, URO Address: When:1 month [facility] [place] 03-17-2022 Hospital Discharge instructions Follow Up Care 03/17/2022 16:12:48 With:Jeff Booth Address: [facility] [place] [address] [phone] Fax Business (1) When: Unknown Comments:f/u 1 year. no labs. [facility] 03-02-2022 Hospital Discharge instructions Patient [...] cells. Follow these instructions at home: Take ecba-lxo-kyhlxth and prescription medicines only as told by [...] is important. Where to find more information [place] [employer]: www.cancer.org National [place] (NCI): www.cancer.gov Contact a health care provider [...] 10/18/2004 Document Revised: 09/28/2018 Document Reviewed: 09/19/2017 [employer] Patient Education 2020 [employer]bee. Follow Up Care 12/29/2021 09:06:11 With:AI REDMOND PA-C, URL Address: [address] [address] When: Unknown Comments:[facility] Hospital Discharge instructions Patient Education 02/09/2022 [...] cells. Follow these instructions at home: Take dtpt-yyu-lyfekvm and prescription medicines only as told by [...] is important. Where to find more information [place] [employer]: www.cancer.org National [place] (NCI): www.cancer.gov Contact a health care provider [...] 10/18/2004 Document Revised: 09/28/2018 Document Reviewed: 09/19/2017 [employer] Patient Education 2020 [employer] Follow Up Care 12/29/2021 09:03:01 With:Reza JAMES, ISAIAH Mckeon, URO Address: When: Unknown [facility] [place] 02-02-2022 Hospital Discharge instructions Patient Education 02/02/2022 [...] cells. Follow these instructions at home: Take wivt-dgb-kqydetq and prescription medicines only as told by [...] is important. Where to find more information [place] [employer]: www.cancer.org [place] (NCI): www.cancer.gov Contact a health care provider [...] 10/18/2004 Document Revised: 09/28/2018 Document Reviewed: 09/19/2017 [employer] Patient Education 2020 [employer] Follow Up Care 12/29/2021 09:02:14 With:Reza JAMES, ISAIAH Mckeon, URO Address: When: Unknown [facility] Hospital Discharge instructions Patient Education 01/26/2022 [...] cells. Follow these instructions at home: Take vhpz-kkd-tmasauk and prescription medicines only as told by [...] is important. Where to find more information [place] [employer]: www.cancer.org National [place] (NCI): www.cancer.gov Contact a health care provider [...] 10/18/2004 Document Revised: 09/28/2018 Document Reviewed: 09/19/2017 [employer] Patient Education 2020 [place]bee. Follow Up Care 12/29/2021 08:59:52 With:Dina Cobb MD, UR, URO Address: [address] [place] [phone] Business (1) When: Unknown [facility] Evaluation + Plan note Future Appointments Appointment Date:02/02/2022 08:00:00 AM Scheduled Provider:Dina Cobb MD Location:[facility] Appointment Type:URO Office Visit Appointment Date:02/09/2022 08:00:00 AM Scheduled Provider:Dina Cobb MD Location:[facility] Appointment Type:URO Office Visit Appointment Date:02/16/2022 08:00:00 AM Scheduled Provider:Dina Cobb MD Location:[facility] Appointment Type:URO Office Visit Appointment Date:02/23/2022 08:00:00 AM Scheduled Provider:Dina Cobb MD Location:[facility] Appointment Type:URO Office Visit Appointment Date:03/02/2022 09:30:00 AM Scheduled Provider:Dina Cobb MD Location:[facility] Appointment Type:URO Office Visit Appointment Date:03/17/2022 03:00:00 PM Scheduled Provider:Jeff Booth DO Location:.ONCOLOGY Appointment Type:ONC Office Visit New (FT) [facility] Evaluation + Plan note Future Appointments Appointment Date:02/02/2022 08:00:00 AM Scheduled Provider:Dina Cobb MD Location:[facility] Appointment Type:URO Office Visit Appointment Date:02/09/2022 08:00:00 AM Scheduled Provider:Dina Cobb MD Location:[facility] Appointment Type:URO Office Visit Appointment Date:02/16/2022 08:00:00 AM Scheduled Provider:Dina Cobb MD Location:[facility] Appointment Type:URO Office Visit Appointment Date:02/23/2022 08:00:00 AM Scheduled Provider:Dina Cobb MD Location:[facility] Appointment Type:URO Office Visit Appointment Date:03/02/2022 09:30:00 AM Scheduled Provider:Dina Cobb MD Location:[facility] Appointment Type:URO Office Visit Appointment Date:03/17/2022 03:00:00 PM Scheduled Provider:Jeff Booth DO Location:.ONCOLOGY Appointment Type:ONC Office Visit New 30 (FT) Diagnostic Tests PendingUrine Culture 01/26/22 [facility] Evaluation + Plan note Future Appointments Appointment Date:02/09/2022 08:00:00 AM Scheduled Provider:Dina Cobb MD Location:[facility] Appointment Type:URO Office Visit Appointment Date:02/16/2022 08:00:00 AM Scheduled Provider:Dina Cobb MD Location:[facility] Appointment Type:URO Office Visit Appointment Date:02/23/2022 08:00:00 AM Scheduled Provider:Dina Cobb MD Location:[facility] Appointment Type:URO Office Visit Appointment Date:03/02/2022 09:30:00 AM Scheduled Provider:Dina Cobb MD Location:[facility] Appointment Type:URO Office Visit Appointment Date:03/17/2022 03:00:00 PM Scheduled Provider:Jeff Booth DO [facility]C Office Visit New 30 (FT) [facility] Evaluation + Plan note Future Appointments Appointment Date:02/16/2022 08:00:00 AM Scheduled Provider:Dina Cobb MD Location:[facility] Appointment Type:URO Office Visit Appointment Date:02/23/2022 08:00:00 AM Scheduled Provider:Dina Cobb MD Location:[facility] Appointment Type:URO Office Visit Appointment Date:03/02/2022 09:30:00 AM Scheduled Provider:Dina [facility] MD [facility] Office Visit Appointment Date:03/17/2022 03:00:00 PM Scheduled Provider:Jeff Booth DO Location:FT.ONCOLOGY Appointment Type:ONC Office Visit New 30 (FT) [facility] Evaluation + Plan note Future Appointments Appointment Date:03/17/2022 03:00:00 PM Scheduled Provider:Jeff Booth DO Location:FT.ONCOLOGY Appointment Type:ONC Office Visit New 30 (FT) [facility] Evaluation + Plan note Future Appointments Appointment Date:03/15/2023 12:30:00 PM Scheduled Provider:Jeff Booth DO Location:FT.ONCOLOGY Appointment Type:ONC Office Visit 15 (FT) Diagnostic Tests PendingUrine Culture 03/25/22 [facility] Evaluation + Plan note Future Appointments Appointment Date:03/15/2023 12:30:00 PM Scheduled Provider:Jeff Booth DO Location:FT.ONCOLOGY Appointment Type:ONC Office Visit 15 (FT) [facility] Evaluation + Plan note Future Appointments Appointment Date:06/22/2022 10:15:00 AM Scheduled Provider:Dina Cobb MD [facility] App[facility] Type:URO Office Visit Appointment Date:06/29/2022 10:15:00 AM Scheduled Provider:Dina Cobb MD [facility] App[facility] Type:URO Office Visit Appointment Date:07/06/2022 10:15:00 AM Scheduled Provider:Dina Cobb MD [facility] App[facility] Type:URO Office Visit Appointment Date:03/15/2023 12:30:00 PM Scheduled Provider:Jeff Booth DO Location:FT.ONCOLOGY Appointment Type:ONC Office Visit 15 (FT) [facility] Evaluation + Plan note Future Appointments Appointment Date:06/29/2022 07:45:00 AM Scheduled Provider:Dina Cobb MD Location:[facility] Appointment Type:URO Office Visit Appointment Date:07/06/2022 10:15:00 AM Scheduled Provider:Dina Cobb MD Location:[facility] Appointment Type:URO Office Visit Appointment Date:03/15/2023 12:30:00 PM Scheduled Provider:Jeff Booth DO Location:FT.ONCOLOGY Appointment Type:ONC Office Visit 15 (FT) [facility] Evaluation + Plan note Future Appointments Appointment Date:07/06/2022 10:15:00 AM Scheduled Provider:Dina Cobb MD Location:[facility] Appointment Type:URO Office Visit Appointment Date:03/15/2023 12:30:00 PM Scheduled Provider:Jeff Booth DO Location:FT.ONCOLOGY Appointment Type:ONC Office Visit 15 (FT) Diagnostic Tests PendingBUN 06/29/22Creatinine 06/29/22 [facility] Evaluation + Plan note Future Appointments Appointment Date:10/19/2022 08:00:00 AM Scheduled Provider:Dina Cobb MD Location:[facility] Appointment Type:URO Office Visit Appointment Date:10/26/2022 10:30:00 AM Scheduled Provider:AI REDMOND PA-C Location:[facility] Appointment Type:URO Office Visit Appointment Date:03/15/2023 12:30:00 PM Scheduled Provider:Jeff Booth DO Location:FT.ONCOLOGY Appointment Type:ONC Office Visit 15 (FT) [facility] Evaluation + Plan note Future Appointments Appointment Date:10/26/2022 10:30:00 AM Scheduled Provider:AI REDMOND PA-C Location:[facility] Appointment Type:URO Office Visit Appointment Date:03/15/2023 12:30:00 PM Scheduled Provider:Jeff Booth DO Location:FT.ONCOLOGY Appointment Type:ONC Office Visit 15 (FT) [facility] Evaluation + Plan note Future Appointments Appointment Date:03/15/2023 12:30:00 PM Scheduled Provider:Jeff Booth DO Location:FT.ONCOLOGY Appointment Type:ONC Office Visit 15 (FT) Diagnostic Tests PendingUrine Culture 12/14/22 [facility] Evaluation + Plan note Future Appointments Appointment Date:04/24/2024 11:00:00 AM Scheduled Provider:Jeff Booth DO Location:FT.ONCOLOGY Appointment Type:ONC Office Visit 15 (FT) [facility] Evaluation note No assessment inform ation available [facility] Work Phone: Hospital course Narrative No data available for this section [facility] Hospital Discharge instructions No data available for this section [facility] Progress note No data available for this section [facility] Summary Purpose Family History No Family History [...] section and content) DATE CREATED AUTHOR 06/24/2020 [facility] DATE CREATED AUTHOR AUTHOR'S ORGANIZ ATION 09/01/2020 [facility] DATE CREATED AUTHOR AUTHOR'S ORGANIZ ATION 11/21/2020 [facility] DATE CREATED AUTHOR AUTHOR'S ORGANIZ ATION 03/09/2023 [facility] DATE CREATED AUTHOR AUTHOR'S ORGANIZ ATION 02/24/2024 [facility] DATE CREATED AUTHOR AUTHOR'S ORGANIZ ATION 05/24/2024 [facility] DATE CREATED AUTHOR AUTHOR'S ORGANIZ ATION 07/05/2024 [facility] DATE CREATED AUTHOR AUTHOR'S FERNANDO ATION 08/05/2024 [facility] (unrecognized sect ion and content) [...] BE BASED ON THE PRIMARY CLINICAL RECORDS. [employer] provides no warranty or guarantee of the accuracy or completeness of information in this document.
== END 2024-08-12 12:05 | disposition home or self-care (01) ==
LOC: LAB 12:06
PROVIDERS: PCP Family Medicine; Visit Provider Internal Medicine Interventional Cardiology
DX: R06.02 Shortness of breath (principal)
CPT/HCPCS: 36415; 83880

== ENCOUNTER 2024-09-11 09:59 | Outpatient (OUT) | payer BC, SELFPAY | END 2024-09-11 10:00 | disposition home or self-care (01) | LOC: PST 10:00 | PROVIDERS: PCP Family Medicine; Visit Provider Surgery | DX: Z01.818 Encounter for other preprocedural examination (principal); Z86.0100 Personal history of colon polyps, unspecified ==

== ENCOUNTER 2024-09-17 08:17 | Day surgery (SDC) | payer BC, SELFPAY ==
[2024-09-17 08:25] VITALS: BP 134/54; PULSE 71; TEMP 36.1; O2SAT 96; BMI 46.1
[2024-09-17] MEDS: 0.9 % SODIUM CHLORIDE 500 ML 50 ML IV (08:51)
--- NOTE | 2024-09-17 09:01 | P.ON_ITS ---
Date of procedure: 09/17/24 Pre-op diagnosis: screening colonoscopy Post-op diagnosis: other (pandiverticulosis, previous EMR site no abnormalities ) Procedure: Previous colonoscopy: 2023 for EMR procedure: screening colonoscopy The patient was given IV conscious sedation.? The patient's SPO2 remained above 90% throughout the procedure. The colonoscope was inserted per rectum and advanced under direct vision to the cecum without difficulty.? The prep was good.? Findings: Terminal ileum os: normal Cecum/Ascending colon: normal aside for diverticulosis, area of previous tattoo and EMR site without concerns Transverse colon: normal aside for diverticulosis Descending/Sigmoid colon: aside for diverticulosis normal Rectum/Anus: examined in normal and retroflexed positions and was normal Withdrawal Time was (minutes): 14 The colon was decompressed and the scope was removed.? The patient tolerated the procedure well. Recommendations/Plan: 1.? Lifestyle and dietary modifications as discussed 2.? F/U in 3-5 years for repeat c-scope, call [facility] for any other recommendations on EMR follow up or repeat scope timing 3.? Discussed with the family Anesthesia: MAC Surgeon: Elver Lutz Estimated blood loss (mL): 0 Pathology: none sent Condition: stable Disposition: PACU
[2024-09-17 09:57] VITALS: BP 96/58; PULSE 67; TEMP 36.3; O2SAT 96
[2024-09-17 10:11] VITALS: BP 102/60; PULSE 68; O2SAT 98
== END 2024-09-17 10:27 | disposition home or self-care (01) ==
PROVIDERS: PCP Family Medicine; Visit Provider Surgery
PROC: (CPT 00812; principal; 2024-09-17 09:30)
DX: Z12.11 Encounter for screening for malignant neoplasm of colon (principal); Z86.0100 Personal history of colon polyps, unspecified; K57.30 Diverticulosis of large intestine without perforation or abscess without bleeding
CPT/HCPCS: 00812; 45378; J2704

== ENCOUNTER 2024-11-03 14:50 | Emergency (ER) | payer MEDICARE, SELFPAY ==
[2024-11-03 14:53] VITALS: BP 151/93; PULSE 64; TEMP 36.5; O2SAT 97; BMI 44.1
--- NOTE | 2024-11-03 15:03 | PC.NURSE ---
Pain to left lower leg, denies injury, no redness or swelling.
--- NOTE | 2024-11-03 15:18 | ED.EXTPRO1 ---
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 The pain is sharp/stabbing and intermittent. It is severe when it occurs. No relief with OTC smith med shortly after it happened. She is concerned about blood clot/DVT. No recent injury. Right knee surgery was remote. no redness, swelling or ecchymosis noted at the affected portion of the lower extremity. No systemic symptoms such as fever or vomiting. No chest pain or shortness of breath. Related Data Home Medications ?Medication ?Instructions ?Recorded ?Confirmed aspirin 81 mg tablet,delayed 81 mg PO DAILY 08/07/23 09/17/24 release (Adult Aspirin Regimen) furosemide 20 mg tablet (Lasix) 20 mg PO DAILY 08/07/23 09/17/24 multivitamin 1 tab PO DAILY 08/07/23 09/17/24 olmesartan 40 mg tablet (Benicar) 40 mg PO DAILY 08/07/23 09/17/24 nabumetone 750 mg tablet 750 mg PO DAILY 08/30/23 09/17/24 pantoprazole 40 mg tablet,delayed 40 mg PO Q12H 08/30/23 09/17/24 release potassium chloride 10 mEq 10 meq PO DAILY 08/30/23 09/17/24 tablet,extended release cyclobenzaprine 10 mg tablet 10 mg PO Q8H PRN muscle spasm 09/11/24 09/17/24 temazepam 30 mg capsule mg 09/11/24 Previous Rx's ?Medication ?Instructions ?Recorded oxycodone-acetaminophen 5 mg-325 1 tab PO Q6H PRN pain #10 tabs 11/03/24 mg tablet (Percocet) Allergies Allergy/AdvReac Type Severity Reaction Status Date / Time oxycodone (From Percocet) AdvReac Unknown itching Verified 11/03/24 16:09 [facility] Medical History (Updated 11/03/24 @ 16:03 by Angel Luis Hollingsworth) Positive colorectal cancer screening using Cologuard test ?R19.5 - Other fecal abnormalities (ICD-10) Postoperative nausea and vomiting ?R11.2 - Nausea with vomiting, unspecified (ICD-10) ?Z98.890 - Other specified postprocedural states (ICD-10) Hx of gastroesophageal reflux (GERD) ?Z87.19 - Personal history of other diseases of the digestive system (ICD-10) Deep vein blood clot of left lower extremity ?I82.402 - Acute embolism and thrombosis of unspecified deep veins of left lower extremity (ICD-10) Breast cancer ?C50.919 - Malignant neoplasm of unspecified site of unspecified female breast (ICD-10) Arthritis ?M19.90 - Unspecified osteoarthritis, unspecified site (ICD-10) Essential hypertension ?I10 - Essential (primary) hypertension (ICD-10) Bladder cancer ?C67.9 - Malignant neoplasm of bladder, unspecified (ICD-10) Surgical History (Updated 02/13/24 @ 09:34 by Mercedes Still) History of vein stripping ?Z98.890 - Other specified postprocedural states (ICD-10) History of lumpectomy of right breast ?Z98.890 - Other specified postprocedural states (ICD-10) H/O transurethral resection of bladder tumor (TURBT) ?Z98.890 - Other specified postprocedural states (ICD-10) ?Z86.03 - Personal history of neoplasm of uncertain behavior (ICD-10) H/O cystoscopy ?Z98.890 - Other specified postprocedural states (ICD-10) History of arthroplasty of left knee ?Z96.652 - Presence of left artificial knee joint (ICD-10) History of arthroplasty of right knee ?Z96.651 - Presence of right artificial knee joint (ICD-10) History of tonsillectomy and adenoidectomy ?Z90.89 - Acquired absence of other organs (ICD-10) History of hysterectomy ?Z90.710 - Acquired absence of both cervix and uterus (ICD-10) History of sinus surgery ?Z98.890 - Other specified postprocedural states (ICD-10) History of cholecystectomy ?Z90.49 - Acquired absence of other specified parts of digestive tract (ICD-10) H/O right mastectomy ?Z90.11 - Acquired absence of right breast and nipple (ICD-10) Family History (Updated 08/30/23 @ 13:45 by Mercedes Still) Mother Family history of stroke Social History (Updated 09/17/24 @ 08:38 by Brenda Lowry) Within the past year, how often did you have a drink containing alcohol: monthly or less Smoking status: Former smoker Non-prescribed substance use: denies use Previous 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 afebrile General: Well-appearing and in no apparent distress. Skin: Warm, dry, no pallor noted. No rash. Eye: Pupils are equal, round and EOMI. No scleral icterus. Cardiovascular: normal peripheral perfusion. Respiratory: No accessory muscle use or respiratory distress. Musculoskeletal: right LE with normal ROM - she is able to sit back unassisted and swing up her legs onto the bed unassisted. No calf or popliteal tenderness. No lower extremity edema/swelling. There is a focal area of tenderness along the anterolateral soft tissue just lateral to the tibia. no palpable mass or phlebotic vessel appreciated. Neurological: A&O x4. No cranial nerve dysfunction observed. No truncal ataxia. Moves all extremities. Sensation intact. Psychiatric: Cooperative and interactive. Normal mood and affect. Constitutional Vital Signs, click to edit/add: Last Vital Signs Temp 97.7 F 11/03/24 14:53 Pulse 64 11/03/24 14:53 Resp 11/03/24 14:53 BP 151/93 H 11/03/24 14:53 Pulse Ox 97 11/03/24 14:53 O2 Del Method Room Air 11/03/24 14:53 Course Vital Signs Vital signs: Vital Signs Temperature 97.7 F 11/03/24 14:53 Pulse Rate 64 11/03/24 14:53 Respiratory Rate 11/03/24 14:53 Blood Pressure 151/93 H 11/03/24 14:53 Pulse Oximetry 97 11/03/24 14:53 Oxygen Delivery Method Room Air 11/03/24 14:53 Temperature 97.7 F 11/03/24 14:53 Pulse Rate 64 11/03/24 14:53 Respiratory Rate 11/03/24 14:53 Blood Pressure 151/93 H 11/03/24 14:53 Pulse Oximetry 97 11/03/24 14:53 Oxygen Delivery Method Room Air 11/03/24 14:53 MDM - Extremity (Nontraumatic) MDM Narrative Medical decision making narrative: US tech not available at this time. DDimer test obtained for screening of DVT. After discussion, pt agreed to be given oral Toradol for pain. DDimer was elevated, so she received SQ Lovenox and was discharged home with scheduled appt for right LE US tomorrow at 8am at [facility] to rule out DVT. She was given a percocet in ED before discharge and prescribed more to use at home as needed for pain Lab Data Labs: Lab Results 11/03/24 Range/Units 15:19 D-Dimer 0.94 H* (<=0.59) mg/L FEU Discharge Plan Discharge Chief Complaint: Extremity Problem, Nontraumatic Clinical Impression: Acute pain of right lower extremity Patient Disposition: Home, Self-Care Time of Disposition Decision: 16:08 Prescriptions / Home Meds: New oxycodone-acetaminophen [Percocet] 5-325 mg tablet 1 tab PO Q6H PRN (Reason: pain) Qty: 10 0RF No Action aspirin [Adult Aspirin Regimen] 81 mg tablet,delayed release (DR/EC) 81 mg PO DAILY olmesartan [Benicar] 40 mg tablet 40 mg PO DAILY multivitamin Tablet 1 tab PO DAILY furosemide [Lasix] 20 mg tablet 20 mg PO DAILY Patient Comments: PRN 2-3 times weekly nabumetone 750 mg tablet 750 mg PO DAILY pantoprazole 40 mg tablet,delayed release (DR/EC) 40 mg PO Q12H potassium chloride 10 mEq tablet extended release 10 meq PO DAILY cyclobenzaprine 10 mg tablet 10 mg PO Q8H PRN (Reason: muscle spasm) temazepam 30 mg capsule Print Language: Lithuanian Instructions: Leg Pain (ED) Additional Instructions: scheduled for right LE US to rule out DVT - 8am tomorrow at [facility] Referrals: Bayron Wells MD [Primary Care Provider] - 1 week
[2024-11-03] MEDS: KETOROLAC TROMETHAMINE 10 MG TABLET PO (15:33)
[2024-11-03 15:40] LABS: D Dimer 0.94 mg/L FEU (<=0.59)
[2024-11-03] MEDS: ENOXAPARIN SODIUM 120 MG/0.8 ML SYRINGE SUBQ (16:29)
[2024-11-03] MEDS: OXYCODONE HCL/ACETAMINOPHEN 5MG/325MG 1 TAB PO (16:29)
== END 2024-11-03 16:37 | disposition home or self-care (01) ==
PROVIDERS: Emergency Provider Emergency Medicine; PCP Family Medicine
DX: M79.661 Pain in right lower leg (principal); R79.89 Other specified abnormal findings of blood chemistry; Z96.652 Presence of left artificial knee joint; Z96.651 Presence of right artificial knee joint; Z90.710 Acquired absence of both cervix and uterus; Z90.49 Acquired absence of other specified parts of digestive tract; Z90.11 Acquired absence of right breast and nipple; Z87.891 Personal history of nicotine dependence
CPT/HCPCS: 36415; 85378; 99284; J1650

== ENCOUNTER 2024-11-04 07:41 | Outpatient (OUT) | payer MEDICARE, SELFPAY ==
--- NOTE | 2024-11-04 07:48 | US_ITS ---
[address] [address] Patient Name: DANIELLA BEJARANO MRN: [facility]:[id number] date: 1960 Sex: F Assigned Patient Location: US Current Patient Location: US Accession/Order Number: [id number] Exam Date: 11/04/2024 07:50 Report Date: 11/04/2024 08:40 At the request of: HERNANDO REGAN Procedure: US venous doppler LE RT EXAM: US venous doppler LE RT HISTORY: Right Lower Extremity Pain COMPARISON: None. TECHNIQUE: Grayscale, color and Doppler FINDINGS: Region: Right leg Thrombus: None Flow: Normal Augmentation: Normal Compressibility: Normal US/US venous doppler LE RT IMPRESSION: No deep or superficial vein thrombus in the right leg. Electronically authenticated by: SPARKLE RODRIGUEZ Date: 11/04/2024 08:40
== END 2024-11-04 07:42 | disposition home or self-care (01) ==
LOC: US 07:43
PROVIDERS: PCP Family Medicine; Visit Provider Emergency Medicine
DX: M79.604 Pain in right leg (principal)
CPT/HCPCS: 93971

== ENCOUNTER 2024-11-20 10:53 | Outpatient (OUT) | payer MEDICARE, OTHER, SELFPAY ==
[2024-11-20 11:08] LABS: Basophils Absolute Auto 0.1 10^3/uL (0.0-0.1); Basophils Percent Auto 0.8 % (0.2-2.0); Eosinophils Absolute Auto 0.2 10^3/uL (0.0-0.7); Eosinophils Percent Auto 2.3 % (0.9-7.0); Hematocrit 38.6 % (36.0-48.0); Hemoglobin 12.1 g/dL (12.0-16.0); Immature Granulocytes Abs Auto 0.03 10^3/uL (0.00-0.03); Immature Granulocytes Pct Auto 0.5 % (0.0-0.5); Lymphocytes Absolute Auto 1.2 10^3/uL (1.2-3.8); Lymphocytes Percent Auto 18.6 % (20.5-60.0); Mean Corpuscular HGB Conc 31.3 g/dL (29.9-35.2); Mean Corpuscular Hemoglobin 27.2 pg (26.7-34.0); Mean Corpuscular Volume 86.7 fL (81.0-99.0); Mean Platelet Volume 9.4 fL (9.5-13.5); Monocytes Absolute Auto 0.6 10^3/uL (0.3-0.8); Monocytes Percent Auto 8.4 % (1.7-12.0); Neutrophils Absolute Auto 4.5 10^3/uL (1.4-6.5); Neutrophils Percent Auto 69.4 % (43.0-75.0); Platelet Count 185 10^3/uL (150-450); Red Blood Count 4.45 10^6/uL (4.20-5.40); Red Cell Distribution Width 13.9 % (11.0-15.0); White Blood Count 6.5 10^3/uL (4.0-11.0)
[2024-11-20 11:59] LABS: Alanine Aminotransferase 102 U/L (14-59); Albumin Globulin Ratio 0.8; Albumin Level 3.3 g/dL (3.4-5.0); Alkaline Phosphatase 108 U/L (46-116); Aspartate Amino Transferase 98 U/L (15-37); BUN Creatinine Ratio 16.2; Bilirubin Total 0.4 mg/dL (0.2-1.0); Calcium 9.4 mg/dL (8.5-10.1); Carbon Dioxide 28.1 mmol/L (21.0-32.0); Chloride 104 mmol/L (98-107); Estimated GFR (African America >60 (>=60 mL/min/1.73m^2); Estimated GFR (Non-African Ame 52 (>=60 mL/min/1.73m^2); Globulin 3.9 g/dL; Glucose 159 mg/dL (74-106); Potassium 4.1 mmol/L (3.5-5.1); Sodium 141 mmol/L (136-145); Total Protein 7.2 g/dL (6.4-8.2)
== END 2024-11-20 10:54 | disposition home or self-care (01) ==
LOC: LAB 10:55
PROVIDERS: PCP Family Medicine; Visit Provider Internal Medicine Rheumatology
DX: M15.0 Primary generalized (osteo)arthritis (principal); Z79.899 Other long term (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
CPT/HCPCS: 36415; 80053; 85025

== ENCOUNTER 2024-12-04 10:08 | Outpatient (OUT) | payer MEDICARE, OTHER, SELFPAY ==
--- OUTSIDE RECORDS SUMMARY | 2024-12-04 10:20 | XMS_ITS | CCD ---
Author Organization [facility] Care Team Providers Care Timber Spotter Name Role Phone UNKNOWN, PROVIDER Admitting Unavailable UNKNOWN, PROVIDER Attending Unavailable SELF, REFERRED Referring Unavailable SHANTAEREBAYRON Narvaez Primary Care Unavailable SHANTAERER, BAYRON Primary Care Physician LUE ., DINA M Attending Unavailable LUE ., DINA M Admitting Unavailable LUE ., DINA M Consulting Unavailable NADERER, DR BAYRON Perez Primary Care Unavailable LUE ., DINA M Attending Unavailable LUE ., DINA M Admitting Unavailable WEST, DR SPARKLE Napoles Consulting Unavailable NADERER, DR BAYRON Perez Primary Care Unavailable LUE ., DINA Nedra Consulting Unavailable NADERER, DR BAYRON Perez Primary Care Unavailable FAWWAD, COLLAZO H Admitting Unavailable FAWWAD, COLLAZO H Attending Unavailable FAWWAD, COLLAZO H Consulting Unavailable NEFCY, PETER Consulting Unavailable LUE ., DINA M Attending Unavailable LUE ., DINA M Admitting Unavailable NADERER, DR BAYRON Perez Primary Care Unavailable BOB, ALEJO Consulting Unavailable LUE ., DINA M Consulting Unavailable LUE ., DINA M Attending Unavailable LUE ., DINA M Admitting Unavailable NADERER, DR BAYRON Perez Primary Care Unavailable VENTURASTU Consulting Unavailable LUE ., DINA M Consulting [...] Unavailable LUE ., DINA M Attending Unavailable HENDERSON, JARRET BUSCH Consulting Unavailable SHAVON II, ALEKSEY [...] Unavailable MD Bayron Singh Primary Care Provider [phone] Jeff Cordova Attending Provider Jeff Cordova Attending Unavailable Jeff Cordova Admitting Unavailable Bayron Singh Primary Care Unavailable Jeff Booth Referring Unavailable Jeff Booth Attending Unavailable Bayron Singh MD Unavailable Bayron Singh MD Primary Care Provider BAYRON SINGH Attending Unavailable MYRNA CORDOVA Attending Unavailable BAYRON SINGH Referring Unavailable BAYRON SINGH Attending Unavailable MYRNA CORDOVA Attending Unavailable JENN VIEIRA Admitting Unavailable JENN VIEIRA Attending Unavailable MYRNA CORDOVA Referring Unavailable NASRA BUSTOS Attending Unavailable DIETER, FIRAS Attending Unavailable DIETER, FIRAS Attending Unavailable JEREMIAH, OZZY Attending Unavailable DIETER, FIRAS Attending Unavailable JEREMIAH, OZZY Attending Unavailable DIETER, FIRAS Attending Unavailable Allergies Allergy Classification Reported Allergen(s) Allergy Type Date of Onset Reaction(s) Facility (20 sources) Acetaminophen / oxyCODONE; 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: [acetaminophen-ox ycodone] Drug Allergy Headache (finding) [facility] (1 source) Acetaminophen / oxyCODONE Drug Allergy 9 [facility] (8 sources) Acetaminophen / oxyCODONE; 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: [OXYCODONE-ACETAM INOPHEN] Drug Allergy 3 Headache, Hives [facility] Work Phone: Medications Current Medications Medication Drug Class(es) Dates Sig (Normalized) Sig (Original) acetaminophen 325 mg / oxyCODONE hydrochloride 5 mg oral tablet (4 sources) Opioid Agonist Start: 11-03-2024 End: 11-26-2024 take 1 tablet by mouth every six hours as needed oxyCODONE-acetamin ophen (Percocet) 5-325 MG tablet Take 1 tablet by mouth every 6 (six) hours if needed 11/03/2024 11/26/2024 Discontinued aspirin 81 mg delayed release oral tablet (20 sources) Platelet Aggregation Inhibitor, Nonsteroidal Anti-inflammatory Drug Start: 07-07-2021 take 1 mg by mouth once daily aspirin 81 mg Oral EC Tab mg tab(s), Oral, Daily, Refills(s) 0 Start Date: 07/07/21 Status: Ordered Start: 03-26-2020 take 81 mg by mouth once daily Aspirin Active 81 MG PO Daily March 26, 2020 12:00am azelastine hydrochloride 0.5 mg/ml ophthalmic solution (9 sources) Histamine-1 Receptor Antagonist take 1 drop(s) into the eye(s) in the morning azelastine (Optivar) 0.05 % ophthalmic solution 1 drop in the morning and 1 drop before bedtime. Active bisacodyl 5 mg delayed release oral tablet (2 sources) Stimulant Laxative Start: End: take 1 tablet by mouth once bisacodyl (Dulcolax) 5 MG EC tablet Indications: Personal history of colon polyps, unspecified , Screen for colon cancer Take 1 tablet (5 mg) by mouth 1 time for 1 dose Do not crush, chew, or split. Take as detailed on clinic hand out for colonoscopy prep 4 tablet 08/28/2024 08/28/2024 Active Calcium Phosphate-Vitamin D3 (2 sources) Start: Calcium Phosphate-Vitamin D3 Active March 26, 2020 12:00am cyclobenzaprine hydrochloride 10 mg oral tablet (9 sources) Muscle Relaxant take 1 tablet by mouth three times daily as needed for muscle spasms cyclobenzaprine (Flexeril) 10 MG tablet Take 10 mg by mouth 3 (three) times a day as needed for muscle spasms. Active estradiol 0.1 mg/ml vaginal cream (11 sources) Estrogen Start: Estrace 0.1 mg/g Cream See Instructions, 42.5 gm, Refill(s) 2, Apply a pea size amount around the urethra and vagina, 3x a wk for 4 wks, then 2x a week afterwards., [id number], 163, cm, 06/22/22 8:33:00 EDT, Height/Length Dosing, 115, kg, 06/22/22 8:33:00 EDT, Weight Dosing Start Date: 06/22/22 Status: Ordered fluconazole 150 mg oral tablet (2 sources) Azole Antifungal Start: 023 take 1 tablet by mouth once Diflucan 150 mg Tab 150 mg = 1 tab(s), Oral, Once, # 1 tab(s), Refills(s) 0, Pharmacy: [facility][id number], 163, cm, 10/26/22 10:27:00 EST, Height/Length Dosing, 115, kg, 10/26/22 10:27:00 EST, Weight Dosing Start Date: 12/14/22 Status: Ordered furosemide 40 mg oral tablet (20 sources) Loop Diuretic Start: 025 take 1 tablet by mouth once daily as needed for edema furosemide (Lasix) 40 MG tablet Indications: Bilateral edema of lower extremity Take 1 tablet (40 mg) by mouth Daily as needed (Edema) 11/26/2024 Active Start: 11-26-2024 take 1 tablet by justo th once daily as needed for edema furosemide (Lasix) 40 MG tablet Indications: Bilateral edema of lower extremity Take 1 tablet (40 mg) by mouth Daily as needed (Edema) 11/26/2024 Active Start: 10-03-2024 End: 11-26-2024 take 1 tablet by mouth once daily as needed for edema furosemide (Lasix) 20 MG tablet Indications: Bilateral edema of lower extremity Take 1 tablet (20 mg) by mouth Daily as needed (Edema) 90 tablet 3 10/03/2024 11/26/2024 Discontinued (Dose adjustment) Start: 07-07-2021 take 1 tablet by justo th once daily as needed for edema furosemide (Lasix) 20 MG tablet Indications: Bilateral edema of lower extremity Take 1 tablet (20 mg) by mouth Daily as needed (Edema) 90 tablet 3 11/15/2023 Active 24 hr mirabegron 50 mg extended release oral tablet (5 sources) beta3-Adrenergic Agonist Start: 01-04-2023 take 1 tablet by mouth once daily Myrbetriq 50 mg oral tablet, extended release 50 mg = 1 tab(s), Oral, Daily, # 30 tab(s), Refills(s) 11, Pharmacy: [id number], 163, cm, 01/04/23 8:04:00 EST, Height/Length Dosing, 115, kg, 01/04/23 8:04:00 EST, Weight Dosing Start Date: 01/04/23 Status: Ordered Start: 10-14-2022 take 1 tablet by justo th once daily Myrbetriq 50 mg oral tablet, extended release 50 mg = 1 tab(s), Oral, Daily, # 30 tab(s), Refills(s) 11, Pharmacy: [id number], 163, cm, 10/12/22 8:12:00 EST, Height/Length Dosing, 115, kg, 10/12/22 8:12:00 EST, Weight Dosing Start Date: 10/14/22 Status: Ordered multivitamin with minerals (2 sources) Start: 04-26-2023 take 1 tablet by mouth once daily multivitamin with minerals 1 tab, Oral, Daily, Refill(s) 0 Start Date: 04/26/23 Status: Ordered nabumetone 750 mg oral tablet (11 sources) Nonsteroidal Anti-inflammatory Drug Start: 04-26-2023 take 1 tablet by mouth once daily nabumetone 750 mg Tab 750 mg, Oral, Daily, Refills(s) 0 Start Date: 04/26/23 Status: Ordered olmesartan medoxomil 40 mg oral tablet (20 sources) Angiotensin 2 Receptor Neal Start: 10-03-2024 take 1 tablet by mouth once daily olmesartan (Benicar) 40 MG tablet Indications: Essential hypertension (CMS/HCC) Take 1 tablet (40 mg) by mouth Daily 90 tablet 3 10/03/2024 Active Start: 07-07-2021 take 1 tablet by justo th in the morning olmesartan (Benicar) 40 MG tablet Indications: Essential hypertension (CMS/HCC) Take 1 tablet (40 mg) by mouth in the morning. 90 tablet 3 11/15/2023 Active Start: 03-26-2020 take 1 tablet by justo [...] pantoprazole 40 mg delayed release oral tablet (20 sources) Proton Pump Inhibitor Start: 10-03-2024 take 1 tablet by mouth in the morning pantoprazole (ProtoNix) 40 MG EC tablet Indications: GERD without esophagitis Take 1 tablet (40 mg) by mouth in the morning and 1 tablet (40 mg) before bedtime. 180 tablet 3 10/03/2024 Active Start: 07-07-2021 take 1 tablet by justo th in the morning pantoprazole (ProtoNix) 40 MG EC tablet Indications: GERD without esophagitis Take 1 tablet (40 mg) by mouth in the morning and 1 tablet (40 mg) before bedtime. 180 tablet 3 11/15/2023 Active polyethylene glycol 3350 42415 mg powder for oral solution (4 sources) Osmotic Laxative Start: 08-28-2024 End: 08-28-2024 take 17 g by mouth once polyethylene glycol, PEG, 3350 (Glycolax) 17 GM/SCOOP powder Indications: Colonoscopy Take 238 g by mouth 1 (one) time for 1 dose Take as detailed from clinic hand out for colonoscopy prep 238 g 08/28/2024 08/28/2024 Active microencapsulated potassium chloride 10 meq extended release oral tablet (11 sources) Start: 11-01-2024 potassium chlo ride CR (Klor-Con M10) 10 MEQ ER tablet Take 10 mEq by mouth Daily 11/01/2024 Active Start: 10-03-2024 take 1 tablet by justo th once daily potassium chloride CR (Klor-Con) 10 MEQ ER tablet Indications: Bilateral edema of lower extremity Take 1 tablet (10 mEq) by mouth Daily Do not crush, chew, or split. 90 tablet 3 10/03/2024 Active Start: 11-15-2023 take 1 tablet by justo th in the morning potassium chloride CR (Klor-Con) 10 MEQ ER tablet Indications: Bilateral edema of lower extremity Take 1 tablet (10 mEq) by mouth in the morning. Do not crush, chew, or split.. 90 tablet 3 11/15/2023 Active Start: 04-26-2023 take 20 mg by mouth [...] Daily, # 90 tab(s), Refills(s) 3, [id number], cm, 05/18/22 10:12:00 EDT, Height/Length Dosing, 115, kg, 05/18/22 10:12:00 EDT, Weight Dosing Start Date: 05/18/22 Status: Ordered Start: 10-13-2021 take 1 tablet by justo th once daily Vesicare 10 mg Tab 10 mg = 1 tab(s), Oral, Daily, # 30 tab(s), Refills(s) 5, Pharmacy: [facility] #[id number], 163, cm, 10/13/21 9:52:00 EST, Height/Length [...] 1 tablet day of treatment after treatment, [id number], 163, cm, 05/18/22 10:12:00 EDT, Height/Length Dosing, 115, kg, 05/18/22 10:12:00 EDT, Weight Dosing Start Date: 05/18/22 Status: Ordered Start: 02-02-2022 Bactrim DS 800 mg-160 mg Tab 1 tab(s), Oral, Daily, 10 tab(s), Refill(s) 0, Prophylaxis for BCG, take day before and day of, [id number], 163, cm, 02/02/22 8:04:00 EDT, Height/Length Dosing, 115, kg, 02/02/22 8:04:00 EDT, Weight Dosing Start Date: 02/02/22 Status: Ordered Start: 01-26-2022 Bactrim DS 800 mg-160 mg Tab 1 tab(s), Oral, q12hr, 2 tab(s), Refill(s) 6, [id number], 163, cm, 01/26/22 8:21:00 EDT, Height/Length Dosing, 115, kg, 01/26/22 8:21:00 EDT, Weight Dosing Start Date: 01/26/22 Status: Ordered temazepam 30 mg oral capsule (11 sources) Benzodiazepine Start: 10-03-2024 End: 01-09-2025 take 1 capsule by mouth at bedtime temazepam (Restoril) 30 MG capsule Indications: Primary insomnia Take 1 capsule (30 mg) by mouth at bedtime 90 capsule 10/11/2024 01/09/2025 Active triamcinolone acetonide 5 mg/ml topical cream (9 sources) Corticosteroid End: 11-26-2024 triamcinolone (Kenalog) 0.5 % cream 1 Application 11/26/2024 Discontinued vibegron 75 MG Oral Tablet [Gemtesa] (2 sources) Start: 01-05-2023 take 1 tablet by mouth once daily Gemtesa 75 mg oral tablet 75 mg = 1 tab(s), Oral, Daily, # 30 tab(s), Refills(s) 3, Pharmacy: [facility] #[id number], 163, cm, 01/04/23 8:04:00 EST, Height/Length [...] 26, 2020 12:00am March 27, 2020 9:54am atovaquone 250 mg / proguanil hydrochloride 100 mg oral tablet (3 sources) Antimalarial, Antiprotozoal Start: 06-03-2024 End: 08-28-2024 take 1 tablet by mouth once daily atovaquone-proguan il (Malarone) 250-100 MG tablet Indications: Need for malaria prophylaxis Take 1 tablet by mouth Daily Start 2 days prior to travel and continue for 7 days after returning home. 20 tablet 06/03/2024 08/28/2024 Discontinued (Therapy completed) cephalexin 500 mg oral capsule (3 sources) Cephalosporin Antibacterial Start: 06-22-2022 take 1 tablet by mouth once daily Keflex 500 mg Cap 500 mg = 1 cap(s), Oral, Daily, Take 1 tablet morning of procedure., # 1 tab(s), Refills(s) 0, Pharmacy: [id number], 163, cm, 06/22/22 8:33:00 EDT, Height/Length [...] Active Problems Problem Classification Problem Date Documented Date Episodic/Chronic Cancer of bladder (20 sources) Malignant neoplasm, overlapping lesion of bladder; 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: [Malignant neoplasm of overlapping sites of bladder] Onset: 01-26-2022 Resolved: 11-15-2023 Chronic Cancer of breast (16 sources) 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; 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: [Malignant neoplasm of central portion of female breast] Onset: 06-13-2017 Resolved: 08-22-2023 08-22-2023 Chronic Cancer of breast (7 sources) Personal history of malignant neoplasm of breast; 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: [History of malignant neoplasm of breast] Onset: 11-07-2022 03-27-2020 Episodic Cardiac dysrhythmias (4 sources) Ventricular premature depolarization; 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: [Atrial premature depolarization] Onset: 08-12-2024 Chronic Disorders of lipid metabolism (9 sources) Dyslipidemia; 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: [Mixed hyperlipidemia] Onset: 01-02-2024 01-24-2024 Chronic Esophageal disorders (11 sources) Gastroesophageal reflux disease without esophagitis; 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: [Gastro-esophageal reflux disease without esophagitis] Onset: 11-15-2023 11-15-2023 Chronic Essential hypertension (14 sources) Essential (primary) hypertension; 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: [Essential hypertension] Onset: 04-12-2017 08-22-2023 Chronic Genitourinary symptoms and ill-defined conditions (20 sources) Incontinence; 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: [Mixed incontinence] Onset: 01-09-2023 07-14-2021 Chronic Miscellaneous mental health disorders (2 sources) Primary insomnia; 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: [Primary insomnia] 10-03-2024 Chronic Osteoarthritis (20 sources) Primary generalized (osteo)arthritis; 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: [Unspecified osteoarthritis, unspecified site] Onset: 04-12-2017 Resolved: 08-22-2023 Chronic Other aftercare (1 source) Other meterman (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; 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: [OTH CARE HOME CURRENT DRUG THERAPY] Onset: 12-25-2022 Episodic Other aftercare (1 source) long term (current) use of aspirin; 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: [CARE HOME CURRENT USE OF ASPIRIN] Onset: 12-13-2022 Episodic Other and ill-defined heart disease (2 sources) Coronary artery aneurysm; 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: [Coronary artery aneurysm] Onset: 01-02-2024 Chronic Other and unspecified benign neoplasm (2 sources) History of polyp of colon; 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: [Personal history of colon polyps, unspecified] 08-28-2024 Episodic Other diseases of bladder and urethra (12 sources) Detrusor overactivity; 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: [Overactive bladder] Onset: 01-26-2022 Chronic Other diseases of bladder and urethra (20 sources) Overactive bladder; 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: [Overactive bladder] Onset: 05-05-2023 Resolved: 08-22-2023 07-14-2021 Chronic Other diseases of bladder and [...] OBES D/T EXCESS ELDA] Onset: 06-01-2022 Chronic Other nutritional; endocrine; and metabolic disorders (7 sources) Morbid obesity; 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: [Morbid (severe) obesity due to excess calories] Onset: 04-28-2017 11-15-2023 Chronic Other nutritional; endocrine; and metabolic disorders (4 sources) Severe obesity; 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: [Class 3 severe obesity due to excess calories with serious comorbidity and body mass index (BMI) of 45.0 to 49.9 in adult ([facility])] Onset: 04-28-2017 11-26-2024 Chronic Other screening for suspected conditions (not mental disorders or infectious disease) (20 sources) Encounter for screening mammogram for malignant neoplasm of breast; 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: [Cardiovascular stress test abnormal] Onset: 06-13-2017 Resolved: 11-15-2023 Episodic Residual codes; unclassified (9 sources) Obstructive sleep apnea syndrome; 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: [Obstructive sleep apnea (adult) (pediatric)] Onset: 01-02-2024 01-24-2024 Chronic Residual codes; unclassified (1 source) Acquired absence of other specified parts of digestive tract; 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: [ACQ ABSENCE OTH PART DIGESTV TRACT] Onset: 01-09-2023 Episodic Residual codes; unclassified (1 source) Acquired absence of both cervix and uterus; 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: [ACQUIRED ABSENCE BOTH CERVIX AND UTERUS] Onset: 01-09-2023 Episodic Residual codes; unclassified (11 sources) Bilateral lower limb edema; 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: [Localized edema] Onset: 11-15-2023 11-15-2023 Episodic Unclassified (1 source) CONTACT W/AND (SUSP) EXPOS COVID-19; 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: [CONTACT W/AND (SUSP) EXPOS COVID-19] Onset: 04-04-2022 Urinary tract infections (20 sources) Urinary tract infectious disease; 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: [Urinary tract infection, site not specified] Onset: 07-22-2022 09-22-2021 Episodic Past or Other Problems Problem Classification Problem Date Documented Da te Episodic/Chronic Acquired foot deformities (9 sources) Plantarflexion deformity of right foot; 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: [Other acquired deformities of right foot] Onset: 08-22-2023 08-22-2023 Episodic Bacterial infection; unspecified site (20 sources) Infection due to enterococcus; 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: [Streptococcal infection, unspecified site] Onset: 05-05-2023 Resolved: 08-22-2023 09-29-2021 Episodic Cancer of bladder (5 sources) Personal history of malignant neoplasm of bladder; 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: [PERSONAL HX MALIG NEOPLASM BLADDER] Onset: 04-27-2022 Episodic Cardiac dysrhythmias (13 sources) Palpitations; 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: [Palpitations] Onset: 11-17-2021 Resolved: 11-15-2023 11-15-2023 Episodic Diabetes mellitus without complication (9 sources) Prediabetes; 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: [Prediabetes] Onset: 05-21-2024 05-21-2024 Episodic Diseases of mouth; excluding dental (18 sources) Oral lesion; 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: [Unspecified lesions of oral mucosa] Onset: 08-22-2023 Resolved: 11-15-2023 08-22-2023 Episodic E Codes: Fall (1 source) Fall [...] BN RH INIT CLOS] Onset: 11-07-2022 Episodic Genitourinary symptoms and ill-defined conditions (20 sources) History of urinary tract infection; 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: [Personal history of urinary (tract) infections] Onset: 01-26-2022 Resolved: 08-22-2023 Episodic Intestinal infection (1 source) Rotaviral enteritis; 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: [ROTAVIRAL ENTERITIS] Onset: 04-04-2022 Episodic Menopausal disorders (20 sources) Atrophic vaginitis; 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: [Postmenopausal atrophic vaginitis] Onset: 06-22-2022 Resolved: 08-22-2023 Chronic Nausea and vomiting (1 source) Nausea with vomiting, unspecified; 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: [NAUSEA WITH VOMITING UNSPECIFIED] Onset: 04-04-2022 Episodic Neoplasms of unspecified nature or uncertain behavior (5 sources) Neoplasm of unspecified behavior of bladder; 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: [NEOPLASM UNS BEHAVIOR OF BLADDER] Onset: 05-09-2022 Episodic Other acquired deformities (9 sources) Dean legged; 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: [Varus deformity, not elsewhere classified, left knee] Onset: 08-22-2023 Resolved: 11-15-2023 11-15-2023 Episodic Other and ill-defined heart disease (9 sources) Aneurysm of coronary vessels; 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: [Coronary artery aneurysm] Onset: 01-02-2024 Resolved: 05-21-2024 05-21-2024 Chronic Other and unspecified benign neoplasm (2 sources) Benign neoplasm of colon, unspecified; 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: [Benign neoplasm of colon, unspecified] Onset: 03-19-2024 Episodic Other connective tissue disease (9 sources) History of total knee arthroplasty; 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: [Presence of left artificial knee joint] Onset: 08-22-2023 Resolved: 08-22-2023 08-22-2023 Chronic Other connective tissue disease (3 sources) Pain in right hand; 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: [PAIN IN RIGHT HAND] Onset: 11-05-2022 Episodic Other connective tissue disease (9 sources) Pain of left calf; 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: [Pain in left lower leg] Onset: 08-22-2023 Resolved: 08-22-2023 08-22-2023 Episodic Other gastrointestinal disorders (3 sources) Diarrhea, unspecified; 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: [DIARRHEA UNSPECIFIED] Onset: 03-28-2022 Episodic Other lower respiratory disease (4 sources) Respiratory disorder, unspecified; 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: [RESPIRATORY DISORDER UNSPECIFIED] Onset: 05-26-2022 Episodic Other lower respiratory disease (9 sources) Dyspnea; 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: [Dyspnea, unspecified] Onset: 06-05-2020 Resolved: 11-15-2023 11-15-2023 Episodic Other lower respiratory disease (2 sources) Shortness of breath; 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: [Shortness of breath] Onset: 05-05-2023 Episodic Other lower respiratory disease (2 sources) Other forms of dyspnea; 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: [Other forms of dyspnea] Onset: 05-05-2023 Episodic Other non-traumatic joint disorders (9 sources) Pain in right knee; 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: [Pain in joint, lower leg] Onset: 08-22-2023 Resolved: 08-22-2023 08-22-2023 Episodic Other nutritional; endocrine; and metabolic disorders (9 sources) Obesity; 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: [Obesity, unspecified] Onset: 06-05-2020 Resolved: 08-22-2023 08-22-2023 Chronic Phlebitis; thrombophlebitis and thromboembolism (1 source) Personal history of other venous thrombosis and embolism; 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: [PERS HX OTH VENOUS THROMBOSIS AND EMBO] Onset: 11-07-2022 Episodic Residual codes; unclassified (1 source) Family history of malignant neoplasm of breast; 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: [FAMILY HX MALIG NEOPLASM OF BREAST] Onset: 04-13-2022 Episodic Residual codes; unclassified (9 sources) Prevention status; 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: [Need for malaria prophylaxis] Onset: 05-21-2024 Resolved: 11-26-2024 05-21-2024 Episodic Screening and history of mental health and substance abuse codes (20 sources) Ex-smoker; 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: [Personal history of nicotine dependence] Onset: 01-09-2023 Resolved: 08-22-2023 09-08-2021 Episodic Spondylosis; intervertebral disc disorders; other back problems (9 sources) Chronic neck pain; 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: [Cervicalgia] Onset: 11-15-2023 Resolved: 05-21-2024 05-21-2024 Episodic Superficial injury; contusion (9 sources) Contusion of right knee; 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: [Contusion of right knee, initial encounter] Onset: 08-22-2023 Resolved: 05-21-2024 05-21-2024 Episodic Results Test Name Value Interpretation Reference Range Facility ALL CBC WITH AUTO DIFFon BASOPHILS ABSOLUTE AUTO 0.1 [facility] Basophils/100 WBC (Bld) 0.8 % 0.2 - 2.0 % [facility] Eosinophils/100 WBC (Bld) 2.3 % 0.9 - 7.0 % [facility] Erythrocyte distribution width (RBC) [Ratio] 13.9 % 11.0 - 15.0 % [facility] Hematocrit (Bld) [Volume fraction] 38.6 % 36.0 - 48.0 % [facility] Hemoglobin (Bld) [Mass/Vol] 12.1 g/dL 12.0 - 16.0 g/dL [facility] IMMATURE GRANULOCYTES ABS AUTO 0.03 [facility] Immature granulocytes/100 WBC (Bld) 0.5 % 0.0 - 0.5 % [facility] Interpretation and review of laboratory results Abnormal [facility] LYMPHOCYTES ABSOLUTE AUTO 1.2 [facility] Lymphocytes/100 WBC (Bld) 18.6 % Low 20.5 - 60.0 % [facility] MCH (RBC) [Entitic mass] 27.2 pg 26.7 - 34.0 pg [facility] MCHC (RBC) [Mass/Vol] 31.3 g/dL 29.9 - 35.2 g/dL [facility] MCV (RBC) [Entitic vol] 86.7 fL 81.0 - 99.0 fL [facility] MONOCYTES ABSOLUTE AUTO 0.6 [facility] Monocytes/100 WBC (Bld) 8.4 % 1.7 - 12.0 % [facility] NEUTROPHILS ABSOLUTE AUTO 4.5 [facility] Neutrophils/100 WBC (Bld) 69.4 % 43.0 - 75.0 % [facility] Platelet mean volume (Bld) [Entitic vol] 9.4 fL Low 9.5 - 13.5 fL [facility] EO # 0.2 [facility] PLT 185 [facility] RBC 4.45 [facility] WBC 6.5 [facility] NON-HEATER HELPER CYTOLOGY - CELLULAR EXAMon 10-16-2024 LAB AP CASE REPORT Normal [facility] Comment on above: Order Comment: Via c ysto bladder wash Result Comment: Non- gynecologic Cytology Case: [id number] Authorizing Provider: Lisa Zelaya MD Collected: 10/16/20241530 Ordering Location: [facility] Received: 10/16/2024 1531 Urology Pathologist: Sarah Mckenna MD Specimen: Bladder washing Performed By: #### L [id number] #### [facility] ([facility]) [address] [place] [address] LAB AP CLINICAL INFORMATION Order Diagnoses Normal [facility] Comment on above: Order Comment: Via c ysto bladder wash Result Comment: C67. 4 - Malignant neoplasm of posterior wall of urinary bladder (CMS/HCC) [ICD-10-CM] Performed By: #### L [id number] #### [facility] ([facility]) [address] [place] [address] LAB AP GROSS DESCRIPTION [facility] Comment on above: Order Comment: Via c ysto bladder wash Result Comment: 15 m L clear, clear light fluid Performed By: #### L [id number] #### [facility]) [address] [place] [address] LAB AP REPORT FINAL DIAGNOSIS NARRATIVE [facility] Comment on above: Order Comment: Via c ysto bladder wash Result Comment: A. B ladder, washing: - Negative for high grade urothelial carcinoma. Performed By: #### L [id number] #### [facility] ([facility]) [address] [place] [address] Procedure Visiton 10-16-2024 Procedure Visit [id number] Wali Bejarano 1960 Provider Department Center 10/16/2024 [facility]RO [facility] Family History Problem Relation Age of Onset Hypertension Mother Atrial fibrillation Mother Other Sister Coronary artery disease Brother Hypertension Brother Family Status - Relation Status Age at Mother Sister Brother Level of Service:61609 NE OFFICE/OUTPATIENT ESTABLISHED LOW MDM 20 MIN Reason for Visit and Comments: Follow-up [331072] [facility] 36on 08-15-2024 36 Pertaining to proBNP From: Nasra Bustos MD Sent: 08/12/2024 6:44 PM EDT To: Lynne Maldonado MA Subject: RE: Scan Please tell her that the NT proBNP was very low. Less likely that she has heart failure. Same recommendations and follow-up Gave pt the message [facility] Telephoneon 08-15-2024 Telephone [id number] Reynolds 1960 F Date Provider Department Center 08/15/2024 [id number], TANA CARD [facility] Family History Problem Relation Age of Onset Hypertension Mother Atrial fibrillation Mother Other Sister Coronary artery disease Brother Hypertension Brother Family Status - Relation Status Age at Mother Sister Brother [facility] ALL PRO BNPon 08-12-2024 NT PRO B TYPE NATRIURETIC PEPT 87 pg/mL NINF - 900.0 pg/mL [facility] Office Visiton 08-12-2024 Follow-up visit [id number] Wali Bejarano 1960 F Date Provider Department Center 08/12/2024 367-LOISBARRYNASRA KUMARI CARD [facility] Family History Problem Relation Age of Onset Hypertension Mother Atrial fibrillation Mother Other Sister Coronary artery disease Brother Hypertension Brother Family Status - Relation Status Age at Mother Sister Brother Level of Service:79677 NE OFFICE/OUTPATIENT ESTABLISHED MOD MDM 30 MIN [facility] NON-HEATER HELPER CYTOLOGY - CELLULAR EXAMon 07-10-2024 LAB AP CASE REPORT Normal [facility] Comment on above: Order Comment: Via c ysto Result Comment: Non- gynecologic Cytology Case: [id number] Authorizing Provider: Lisa Zelaya MD Collected: 07/10/20241432 Ordering Location: [facility] Received: 07/10/20241432 Urology Pathologist: Sarah Mckenna MD Specimen: Bladder washing Performed By: #### L [id number] #### [facility] ([facility]) [address] [place] [address] LAB AP CLINICAL INFORMATION Order Diagnoses [facility] Comment on above: Order Comment: Via c ysto Result Comment: 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 B ladder, washing: - Nondiagnostic. - Scant cellularity due to obscuring lubricant. Performed By: #### L [id number] #### [facility] ([facility]) [address] [place] [address] Procedure Visiton 07-10-2024 Procedure Visit [id number] Wali Bejarano 1960 F Date Provider Department Center 07/10/2024 [facility] Family History Problem Relation Age of Onset Hypertension Mother Atrial fibrillation Mother Other Sister Coronary artery disease Brother Hypertension Brother Family Status - Relation Status Age at Mother Sister Brother Level of Service:85500 NE OFFICE/OUTPATIENT ESTABLISHED LOW [facility] 20 MIN Reason for Visit and Comments: Follow-up [126993] [facility] NON-HEATER HELPER CYTOLOGY - CELLULAR EXAMon 04-10-2024 LAB AP CASE REPORT Normal [facility] Comment on above: Order Comment: Via c ysto Result Comment: Non- gynecologic Cytology Case: [id number] Authorizing Provider: Lisa Zelaya MD Collected: 04/10/2024 1544 Ordering Location: [facility] Received: 04/10/2024 1544 Urology Pathologist: Adelita Peralta MD Specimen: Bladder washing Performed By: #### L [id number] ####[facility] ([facility])[address] [place] [address] LAB AP CLINICAL INFORMATION Order Diagnoses [facility] Comment on above: Order Comment: Via c ysto Result Comment: 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 B ladder washing: - Negative for high grade urothelial carcinoma. Performed By: #### L [id number] ####[facility] ([facility])[address] [place] [address] Procedure Visiton 04-10-2024 Procedure Visit [id number] Wali Bejarano 1960 Provider Department Center 04/10/2024 [facility]RO [facility] Family History Problem Relation Age of Onset Hypertension Mother Atrial fibrillation Mother Other Sister Coronary artery disease Brother Hypertension Brother Family Status - Relation Status Age at Mother Sister Brother Level of Service:66931 NE OFFICE/OUTPATIENT ESTABLISHED LOW MDM 20 MIN Reason for Visit and Comments: Follow-up [993921] [facility] Telephoneon 04-03-2024 Telephone [id number] Wali Bejarano 1960 Provider Department Center 04/03/2024 REEMA CARD [facility] Family History Problem Relation Age of Onset Hypertension Mother Atrial fibrillation Mother Other Sister Coronary artery disease Brother Hypertension Brother Family Status - Relation Status Age at Mother Sister Brother [facility] HISTOLOGY - TISSUE EXAMon LAB AP CASE REPORT Normal [facility] Comment on above: Result Comment: Surg ical Pathology Case: [id number] Authorizing Provider: Jenn Vieira MD Collected: 03/19/2024 1224 Ordering Location: [facility] Received: 03/19/2024 1356 [facility] Pathologist: Mel Mortensen MD Specimens: A) - Large Intestine, Right/Ascending Colon, small ascending cln polyps r/o adenoma B) - Large Intestine, Right/Ascending Colon, large proximal ascending cln polyp EMR r/o adenoma C) - Large Intestine, Right/Ascending Colon, large distal ascending cln EMR polyp r/o adenoma Performed By: #### L [id number] ####[facility] ([facility])[address] [place] [address] LAB AP CLINICAL INFORMATION Order Diagnoses Normal [facility] Comment on above: Result Comment: D12. 6 - Adenomatous polyp of colon, unspecified part of colon [ICD-10-CM] Performed By: #### L [id number] ####[facility] ([facility])[address] [place] [address] LAB AP GROSS DESCRIPTION Normal [facility] Comment on above: Result Comment: Chris. Thao hyatte Intestine, Right/Ascending Colon. Received in formalin in [...] in formalin in a container labeled Daniella Perez Aniyahhilda, large distal ascending cln EMR polyp r/o [...] Lees, Pathology PGY-2 Performed By: #### L [id number] ####[facility] ([employer])[address] [place] [address] LAB AP MICROSCOPIC DESCRIPTION Microscopic examination performed. [facility] Comment on above: Performed By: #### L [id number] ####[facility] ([facility])[address] [place] [address] LAB AP REPORT FINAL DIAGNOSIS NARRATIVE [facility] Comment on above: Result Comment: A. C olon, ascending polyp, biopsy: - Tubular adenoma B. Colon, large proximal ascending polyp, biopsy: - Tubular adenoma C. Colon, large distal ascending polyp, biopsy: - Tubular adenoma Performed By: #### L [id number] ####[facility] ([employer])[address] [place] [address] HPon 03-19-2024 HP --- Attestation signed by [...] colonoscopy with possible EMR. Colonoscopy at the [facility] on 02/13/2024 revealed 2 subcentimeter polyps in the cecum/ascending colon biopsied with cold snare. Pandiverticulosis. Plan: Colonoscopy with EMR today History Of Present Illness This is a 56-year-old female who recently underwent colonoscopy 3 weeks ago on 02/13/2024 found to have cecal polyps, biopsies were obtained and revealed tubular adenoma. Presenting today for colonoscopy with possible EMR. Colonoscopy at the [facility] on 02/13/2024 revealed 2 subcentimeter polyps [...] colonoscopy with possible EMR. Colonoscopy at the [facility] on 02/13/2024 revealed 2 subcentimeter polyps in the cecum/ascending colon biopsied with cold snare. Pandiverticulosis. Plan: Colonoscopy with EMR today [facility] NURSNOTEon 03-19-2024 NURSTIM Vieira is at beds freida updating patient and family Normal [facility] NURSNOTE Grounding patch eduarda pamela skin dry and intact [facility] POCT GLUCOSE METER UNSOLICIT ED RESULTSon 03-19-2024 Glucose [Mass/Vol] 117 mg/dL High 70-105 [facility] Comment on above: Order Comment: Waive d Testing in the ED is performed under the ED CLIA certificate #[id number]. Result Comment: dhol as Performed By: #### L [id number] ####[facility] ([facility]ER)[address] [place] [address] Prep for Procedureon 024 Prep for Procedure [id number] Wali Bejarano 1960 Date Provider Department Center 03/12/2024 JENN HAYNES [facility] Family History Problem Relation Age of Onset Hypertension Mother Atrial fibrillation Mother Other Sister Coronary artery disease Brother Hypertension Brother Family Status - Relation Status Age at Mother Sister Brother Normal [facility] Letter (Out)on 03-06-2024 Letter (Out) [id number] Wali Bejarano A 1960 Provider Department Center 03/06/2024 None-None [facility] SCHED [facility] C Family History Problem Relation Age of Onset Hypertension Mother Atrial fibrillation Mother Other Sister Coronary artery disease Brother Hypertension Brother Family Status - Relation Status Age at Mother Sister Brother Normal [facility] Orders Onlyon 03-01-2024 Orders Only [id number] Wali Bejarano 1960 Provider Department Center 03/01/2024 REEMA CARD [facility] Family History Problem Relation Age of Onset Hypertension Mother Atrial fibrillation Mother Other Sister Coronary artery disease Brother Hypertension Brother Family Status - Relation Status Age at Mother Sister Brother Normal [facility] Garret 02-14-2024 L Specimen: [id number] Received: 02/14/24 Status: LALY Hodges Num: [id number] Spec Type: Surgical Subm Dr: Jeff Cordova Tissues: A Colon Biopsy (CECAL POLYP) Procedures: HE/2, Gross/Micro L4 Age/ Patient Sex Location Account Attending Physician Daniella Bejarano A 63/F LABELL [id number] Jeff Cordova SPEC NUM: [id number] RECD: 02/14/24 STATUS: LALY HODGES NUM: [id number] JULIA: 02/14/24- SUBM ANTONIO Cordova ENTERED: 02/14/[address] [facility] DR: SPEC TYPE: Surgical DEPT: ISADORA VIRK ENTERED BY: [id number] RECV BY: [id number] ORDERED: HE/2, Gross/Micro L4 ORDERED: HE/2, Gross/Micro [...] A1. Clinical history: cecal polyp x2, smith-diverticulosis. DHRUV/JUSTINA CPT Codes 46444 Specimen: [id number] Received: 02/14/24 Status: LALY Hodges Num: [id number] Spec Type: Surgical Subm Dr: Jeff Cordova Tissues: A Colon Biopsy (CECAL POLYP) Procedures: CITLALLI/Dennis Carson/Josias L4 Patient: Daniella Bejarano [id number] (Continued) Signed (signature on file) Bernardino-Horacio Jeter MD 02/17/24 1901 Normal [facility] Office Visiton 02-09-2024 Follow-up visit [id number] Wali Bejarano 1960 F Date Provider Department Center 02/09/2024 120-OZZY DANIELS CARD [facility] Family History Problem Relation Age of Onset Hypertension Mother Atrial fibrillation Mother Other Sister Coronary artery disease Brother Hypertension Brother Family Status - Relation Status Age at Mother Sister Brother Level of Service:88628 NE OFFICE/OUTPATIENT ESTABLISHED MOD MDM 30 MIN [facility] 36on 01-17-2024 36 Patient will call me back if she decides she'd like to proceed with PFT's. [facility] 36on 01-16-2024 36 Patient called back to make you aware that her edema is better. She says it's better because she isn't on the cruise anymore and eating so much salt . She said her SOB remains the same, as she's still huffin and puffin . She states I think I'm just fat . Any recommendations? (Besides weight loss and diet lol) [facility] 36 Regarding echo performed on 01/11/2024: ISIDRA Blair MA Her echo looks OK except they couldn't see her RV well- ask her if shortness of breath and edema have improved since taking lasix. LM for patient to return my call. Also let her know her Holter monitor did not show anything concerning (per Jeannette). Normal [facility] NON-HEATER HELPER CYTOLOGY - CELLULAR EXAMon 01-10-2024 LAB AP CASE REPORT Normal [facility] Comment on above: Order Comment: Via c ysto Result Comment: Non- gynecologic Cytology Case: [id number] Authorizing Provider: Lisa Zelaya MD Collected: 01/10/2024 1422 Ordering Location: [facility] Received: 01/10/2024 1422 Urology Pathologist: Yossi Sterling MD Specimen: Bladder washing Performed By: #### L [id number] #### [facility] ([facility]) [address] [place] [address] LAB AP CLINICAL INFORMATION Order Diagnoses [facility] Comment on above: Order Comment: Via c ysto Result Comment: 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 Performed By: #### L [id number] #### [facility] ([facility]) [address] [place] [address] LAB AP REPORT FINAL DIAGNOSIS NARRATIVE [facility] Comment on above: Order Comment: Via c ysto Result Comment: A. B ladder washing: - Negative for high grade urothelial carcinoma. Performed By: #### L [id number] #### [facility] ([facility]) [address] [place] [address] Procedure Visiton 01-10-2024 Procedure Visit [id number] Wali Bejarano 1960 Provider Department Center 01/10/2024 [facility] Family History Problem Relation Age of Onset Hypertension Mother Atrial fibrillation Mother Other Sister Coronary artery disease Brother Hypertension Brother Family Status - Relation Status Age at Mother Sister Brother Level of Service:84047 NE OFFICE/OUTPATIENT ESTABLISHED LOW MDM 20 MIN Reason for Visit and Comments: Follow-up [959392] Normal [facility] 37on 01-02-2024 37 Increase lasix to 40 mg daily for 2-3 days to remove fluid, then return to 20 mg daily Have blood drawn for mag, electrolytes and renal function [facility] will call you for echocardiogram Normal [facility] Office Visiton 01-02-2024 Follow-up visit [id number] Wali Bejarano 1960 F Date Provider Department Center 01/02/2024 OZZY PULLIAM CARD [facility] Family History Problem Relation Age of Onset Hypertension Mother Atrial fibrillation Mother Other Sister Coronary artery disease Brother Hypertension Brother Family Status - Relation Status Age at Mother Sister Brother Level of Service:29504 NE OFFICE/OUTPATIENT ESTABLISHED MOD MDM 30 MIN Normal [facility] CBC AUTO DIFFon 03-06-2023 BASO # 0.1 103/ul Normal 0.0-0.1 [facility] Comment on above: Performed By: #### C YTO #### [facility] [address] [address] [address] Troy Jeter Basophils/100 WBC (Bld) 1.1 % Normal 0.2-2.0 [facility] Comment on above: Performed By: #### C YTO #### [facility] [address] [place] [address] Dr. Troy Jeter EO # 0.2 103/ul Normal 0.0-0.7 [facility] Comment on above: Performed By: #### C YTO #### [facility] [address] [address] [address] Troy Jeter Eosinophils/100 WBC (Bld) 2.8 % Normal 0.9-7.0 [facility] Comment on above: Performed By: #### C YTO #### [facility] [address] [place] [address] Dr. Troy Jeter Erythrocyte distribution width (RBC) [Ratio] 15.1 % Critically high 11.0-15.0 [facility] Comment on above: Performed By: #### C YTO #### [facility] [address] [place] [address] Dr. Troy Jeter Hematocrit (Bld) [Volume fraction] 39.7 % Normal 36.0-48.0 [facility] Comment on above: Performed By: #### C YTO #### [facility] [address] [place] [address] Dr. Troy Jeter Hemoglobin (Bld) [Mass/Vol] 12.3 g/dL Normal 12.0-16.0 [facility] Comment on above: Performed By: #### C YTO #### [facility] [address] [place] [address] Dr. Troy Jeter IG # 0.02 10e3/ul Normal 0.00-0.03 [facility] Comment on above: Performed By: #### C YTO #### [facility] [address] [place] [address] Dr. Troy Jeter IG % 0.4 % Normal 0.0-0.5 [facility] Comment on above: Performed By: #### C YTO #### [facility] [address] [place] [address] Dr. Troy Jeter LYMPH # 1.3 103/ul Normal 1.2-3.8 [facility] Comment on above: Performed By: #### C YTO #### [facility] [address] [place] [address] Dr. Tryo Jeter Lymphocytes/100 WBC (Bld) 22.0 % Normal 20.5-60.0 [facility] Comment on above: Performed By: #### C YTO #### [facility] [address] [place] [address] Dr. Troy Jeter MANUAL DIFF REQ NO Normal [facility] Comment on above: Performed By: #### C YTO #### [facility] [address] [place] [address] Dr. Troy Jeter MCH (RBC) [Entitic mass] 25.5 pg Critically low 26.7-34.0 [facility] Comment on above: Performed By: #### C YTO #### [facility] [address] [place] [address] Dr. Troy Jeter MCHC (RBC) [Mass/Vol] 31.0 g/dL Normal 29.9-35.2 [facility] Comment on above: Performed By: #### C YTO #### [facility] [address] [place] [address] Dr. Troy Jeter MCV (RBC) [Entitic vol] 82.2 fL Normal 81.0-99.0 [facility] Comment on above: Performed By: #### C YTO #### [facility] [address] [address] [address] Troy Jeter MONO # 0.5 103/ul Normal 0.3-0.8 [facility] Comment on above: Performed By: #### C YTO #### [facility] [address] [place] [address] Dr. Troy Jeter Monocytes/100 WBC (Bld) 8.6 % Normal 1.7-12.0 [facility] Comment on above: Performed By: #### C YTO #### [facility] [address] [place] [address] Dr. Troy Jeter NEUT # 3.7 103/ul Normal 1.4-6.5 [facility] Comment on above: Performed By: #### C YTO #### [facility] [address] [place] [address] Dr. Troy Jeter Neutrophils/100 WBC (Bld) 65.1 % Normal 43.0-75.0 [facility] Comment on above: Performed By: #### C YTO #### [facility] [address] [place] [address] Dr. Troy Jeter Platelet mean volume (Bld) [Entitic vol] 9.0 fL Critically low 9.5-13.5 [facility] Comment on above: Performed By: #### C YTO #### [facility] [address] [place] [address] Dr. Troy Jeter PLT 211 103/ul Normal 150-450 [facility] Comment on above: Performed By: #### C YTO #### [facility] [address] [place] [address] Dr. Troy Jeter RBC 4.83 106/ul Normal 4.20-5.40 [facility] Comment on above: Performed By: #### C YTO #### [facility] [address] [place] [address] Dr. Troy Jeter WBC 5.7 103/ul Normal 4.0-11.0 [facility] Comment on above: Performed By: #### C YTO #### [facility] [address] [place] [address] Dr. Troy Jeter PROF 14(COMP METB)on 023 Albumin [Mass/Vol] 3.4 g/dL Normal 3.4-5.0 [facility] Comment on above: Performed By: #### C BC #### [facility] [address] [place] [address] Dr. Troy Jeter Albumin/Globulin [Mass ratio] 0.9 {ratio} Normal [facility] Comment on above: Performed By: #### C BC #### [facility] [address] [place] [address] Dr. Troy Jeter ALP [Catalytic activity/Vol] 94 U/L Normal 46-116 [facility] Comment on above: Performed By: #### C BC #### [facility] [address] [place] [address] Dr. Troy Jeter ALT [Catalytic activity/Vol] 61 U/L Critically high 14-59 [facility] Comment on above: Performed By: #### C BC #### [facility] [address] [place] [address] Dr. Troy Jeter Anion gap [Moles/Vol] 11.6 mmol/L Normal [facility] Comment on above: Performed By: #### C BC #### [facility] [address] [place] [address] Dr. Troy Jeter AST [Catalytic activity/Vol] 48 U/L Critically high 15-37 [facility] Comment on above: Performed By: #### C BC #### [facility] [address] [place] [address] Dr. Troy Jeter Bilirubin [Mass/Vol] 0.3 mg/dL Normal 0.2-1.0 [facility] Comment on above: Performed By: #### C BC #### [facility] [address] [place] [address] Dr. Troy Jeter Calcium [Mass/Vol] 9.3 mg/dL Normal 8.5-10.[address] [facility] Comment on above: Performed By: #### C BC #### [facility] [address] [address] [address] Troy Jeter Chloride [Moles/Vol] 106 mmol/L Normal 98-107 [facility] Comment on above: Performed By: #### C BC #### [facility] [address] [address] [address] Troy Jeter CO2 [Moles/Vol] 25.4 mmol/L Normal 21.0-32.0 [facility] Comment on above: Performed By: #### C BC #### [facility] [address] [place] [address] Dr. Troy Jeter Creatinine [Mass/Vol] 1.06 mg/dL Critically high 0.55-1.02 [facility] Comment on above: Performed By: #### C BC #### [facility] [address] [place] [address] Dr. Troy Jeter EGFR-AF KOSOVAN >60 Normal >=60 [facility] Comment on above: Performed By: #### C BC #### [facility] [address] [place] [address] Dr. Troy Jeter EGFR-NON AF KOSOVAN 52 mL/min/1.73m2 Critically low >=60 [facility] Comment on above: Performed By: #### C BC #### [facility] [address] [place] [address] Dr. Troy Jeter Globulin (S) [Mass/Vol] 4.0 g/dL Normal [facility] Comment on above: Performed By: #### C BC #### [facility] [address] [place] [address] Dr. Troy Jeter Glucose [Mass/Vol] 132 mg/dL Critically high 74-106 [facility] Comment on above: Performed By: #### C BC #### [facility] [address] [place] [address] Dr. Troy Jetre Potassium [Moles/Vol] 4.0 mmol/L Normal 3.5-5.1 [facility] Comment on above: Performed By: #### C BC #### [facility] [address] [place] [address] Dr. Troy Jeter Protein [Mass/Vol] 7.4 g/dL Normal 6.4-8.2 [facility] Comment on above: Performed By: #### C BC #### [facility] [address] [place] [address] Dr. Troy Jeter Sodium [Moles/Vol] 139 mmol/L Normal 136-145 [facility] Comment on above: Performed By: #### C BC #### [facility] [address] [place] [address] Dr. Troy Jeter Urea nitrogen [Mass/Vol] 16.0 mg/dL Normal 7.0-18.0 [facility] Comment on above: Performed By: #### C BC #### [facility] [address] [place] [address] Dr. Troy Jeter Urea nitrogen/Creatinine [Mass ratio] 15.1 mg/mg Normal [facility] Comment on above: Performed By: #### C BC #### [facility] [address] [place] [address] Dr. Troy Jeter CBC AUTO DIFFon 03-02-2023 BASO # 0.1 103/ul Normal 0.0-0.1 [facility] Comment on above: Performed By: #### C YTO #### [facility] [address] [place] [address] Dr. Troy Jeter Basophils/100 WBC (Bld) 0.9 % Normal 0.2-2.0 [facility] Comment on above: Performed By: #### C YTO #### [facility] [address] [place] [address] Dr. Troy Jeter EO # 0.2 103/ul Normal 0.0-0.7 [facility] Comment on above: Performed By: #### C YTO #### [facility] [address] [place] [address] Dr. Troy Jeter Eosinophils/100 WBC (Bld) 2.9 % Normal 0.9-7.0 [facility] Comment on above: Performed By: #### C YTO #### [facility] [address] [place] [address] Dr. Troy Jeter Erythrocyte distribution width (RBC) [Ratio] 15.3 % Critically high 11.0-15.0 [facility] Comment on above: Performed By: #### C YTO #### [facility] [address] [place] [address] Dr. Troy Jeter Hematocrit (Bld) [Volume fraction] 36.8 % Normal 36.0-48.0 [facility] Comment on above: Performed By: #### C YTO #### [facility] [address] [place] [address] Dr. Troy Jeter Hemoglobin (Bld) [Mass/Vol] 11.5 g/dL Critically low 12.0-16.0 [facility] Comment on above: Performed By: #### C YTO #### [facility] [address] [place] [address] Dr. Troy Jeter IG # 0.02 10e3/ul Normal 0.00-0.03 [facility] Comment on above: Performed By: #### C YTO #### [facility] [address] [place] [address] Dr. Troy Jeter IG % 0.3 % Normal 0.0-0.5 [facility] Comment on above: Performed By: #### C YTO #### [facility] [address] [place] [address] Dr. Troy Jeter LYMPH # 1.5 103/ul Normal 1.2-3.8 [facility] Comment on above: Performed By: #### C YTO #### [facility] [address] [place] [address] Dr. Troy Jeter Lymphocytes/100 WBC (Bld) 24.8 % Normal 20.5-60.0 [facility] Comment on above: Performed By: #### C YTO #### [facility] [address] [place] [address] Dr. Troy Jeter MANUAL DIFF REQ NO Normal [facility] Comment on above: Performed By: #### C YTO #### [facility] [address] [place] [address] Dr. Troy Jeter MCH (RBC) [Entitic mass] 25.4 pg Critically low 26.7-34.0 [facility] Comment on above: Performed By: #### C YTO #### [facility] [address] [place] [address] Dr. Troy Jeter MCHC (RBC) [Mass/Vol] 31.3 g/dL Normal 29.9-35.2 [facility] Comment on above: Performed By: #### C YTO #### [facility] [address] [place] [address] Dr. Troy Jeter MCV (RBC) [Entitic vol] 81.4 fL Normal 81.0-99.0 [facility] Comment on above: Performed By: #### C YTO #### [facility] [address] [place] [address] Dr. Troy Jeter MONO # 0.5 103/ul Normal 0.3-0.8 [facility] Comment on above: Performed By: #### C YTO #### [facility] [address] [place] [address] Dr. Troy Jeter Monocytes/100 WBC (Bld) 8.4 % Normal 1.7-12.0 [facility] Comment on above: Performed By: #### C YTO #### [facility] [address] [place] [address] Dr. Troy Jeter NEUT # 3.7 103/ul Normal 1.4-6.5 [facility] Comment on above: Performed By: #### C YTO #### [facility] [address] [place] [address] Dr. Troy Jeter Neutrophils/100 WBC (Bld) 62.7 % Normal 43.0-75.0 [facility] Comment on above: Performed By: #### C YTO #### [facility] [address] [place] [address] Dr. Troy Jeter Platelet mean volume (Bld) [Entitic vol] 9.2 fL Critically low 9.5-13.5 [facility] Comment on above: Performed By: #### C YTO #### [facility] [address] [place] [address] Dr. Troy Jeter PLT 193 103/ul Normal 150-450 [facility] Comment on above: Performed By: #### C YTO #### [facility] [address] [place] [address] Dr. Troy Jeter RBC 4.52 106/ul Normal 4.20-5.40 [facility] Comment on above: Performed By: #### C YTO #### [facility] [address] [place] [address] Dr. Troy Jeter WBC 5.9 103/ul Normal 4.0-11.0 [facility] Comment on above: Performed By: #### C YTO #### [facility] [address] [place] [address] Dr. Troy Jeter GLYCOHEMOGLOBIN A1Con 2022 ADA RECOMMENDATION SEE BELOW Normal [facility] Comment on above: Result Comment: ADA RECOMMENDED LIMIT 4.0 - 6.0 ADA THERAPEUTIC TARGET < 7.0 ACTION SUGGESTED > 7.0 Performed By: #### C BC #### [facility] [address] [place] [address] Dr. Troy Jeter Glucose [Mass/Vol] 123 mg/dL Normal [facility] Comment on above: Performed By: #### C BC #### [facility] [address] [place] [address] Dr. Troy Jeter HbA1c (Bld) [Mass fraction] 5.9 % Normal 4.5-6.2 [facility] Comment on above: Performed By: #### C BC #### [facility] [address] [place] [address] Dr. Troy Jeter LIPID PROFILEon 03-02-2023 CHOL-HDL RATIO NORM SEE BELOW Normal [facility] Comment on above: Result Comment: 3.3 - 4.4 LOW RISK 4.4 - 7.1 AVERAGE RISK 7.1 - 11.0 MODERATE RISK >11.0 HIGH RISK Performed By: #### C YTO #### [facility] [address] [place] [address] Dr. Troy Jeter Cholesterol [Mass/Vol] 156 mg/dL Normal <=200 [facility] Comment on above: Performed By: #### C YTO #### [facility] [address] [address] [address] Troy Jeter Cholesterol in HDL [Mass/Vol] 64 mg/dL Critically high 40-60 [facility] Comment on above: Performed By: #### C YTO #### [facility] [address] [address] [address] Troy Jeter Cholesterol in LDL [Mass/Vol] 76.4 mg/dL Normal [facility] Comment on above: Performed By: #### C YTO #### [facility] [address] [address] [address] Troy Jeter Cholesterol.total/C holesterol in HDL [Mass ratio] 2.4 {ratio} Normal [facility] Comment on above: Performed By: #### C YTO #### [facility] [address] [place] [address] Dr. Troy Jeter HDL NORMAL > or = 60 mg/dl - LO W CARDIOVASCULAR RISK <40 mg/dl - HIGH CARDIOVASCULAR RISK Normal [facility] Comment on above: Performed By: #### C YTO #### [facility] [address] [address] [address] Troy Jeter LDL CALC NORMAL SEE BELOW Normal [facility] Comment on above: Result Comment: <100 mg/dl OPTIMAL 100 - 129 mg/dl NEAR OR ABOVE OPTIMAL 130 - 159 mg/dl BORDERLINE HIGH 160 - 189 mg/dl HIGH >190 mg/dl VERY HIGH Performed By: #### C YTO #### [facility] [address] [place] [address] Dr. Troy Jeter Triglyceride [Mass/Vol] 78 mg/dL Normal <=150 [facility] Comment on above: Performed By: #### C YTO #### [facility] [address] [address] [address] Troy Jeter VLDL CALC 15.6 mg/dL Normal [facility] Comment on above: Performed By: #### C YTO #### [facility] [address] [place] [address] Dr. Troy Jeter PROF 14(COMP METB)on 023 Albumin [Mass/Vol] 3.2 g/dL Critically low 3.4-5.0 [facility] Comment on above: Performed By: #### C YTO #### [facility] [address] [place] [address] Dr. Troy Jeter Albumin/Globulin [Mass ratio] 0.8 {ratio} Normal [facility] Comment on above: Performed By: #### C YTO #### [facility] [address] [place] [address] Dr. Troy Jeter ALP [Catalytic activity/Vol] 90 U/L Normal 46-116 [facility] Comment on above: Performed By: #### C YTO #### [facility] [address] [place] [address] Dr. Troy Jeter ALT [Catalytic activity/Vol] 58 U/L Normal 14-59 [facility] Comment on above: Performed By: #### C YTO #### [facility] [address] [place] [address] Dr. Troy Jeter Anion gap [Moles/Vol] 10.5 mmol/L Normal [facility] Comment on above: Performed By: #### C YTO #### [facility] [address] [place] [address] Dr. Troy Jeter AST [Catalytic activity/Vol] 40 U/L Critically high 15-37 [facility] Comment on above: Performed By: #### C YTO #### [facility] [address] [place] [address] Dr. Troy Jeter Bilirubin [Mass/Vol] 0.3 mg/dL Normal 0.2-1.0 [facility] Comment on above: Performed By: #### C YTO #### [facility] [address] [place] [address] Dr. Troy Jeter Calcium [Mass/Vol] 9.1 mg/dL Normal 8.5-10.1 [facility] Comment on above: Performed By: #### C YTO #### [facility] [address] [place] [address] Dr. Troy Jeter Chloride [Moles/Vol] 106 mmol/L Normal 98-107 [facility] Comment on above: Performed By: #### C YTO #### [facility] [address] [address] [address] Troy Jeter CO2 [Moles/Vol] 27.6 mmol/L Normal 21.0-32.0 [facility] Comment on above: Performed By: #### C YTO #### [facility] [address] [address] [address] Troy Jeter Creatinine [Mass/Vol] 1.01 mg/dL Normal 0.55-1.02 [facility] Comment on above: Performed By: #### C YTO #### [facility] [address] [place] [address] Dr. Troy Jeter EGFR-AF KOSOVAN >60 Normal >=60 [facility] Comment on above: Performed By: #### C YTO #### [facility] [address] [place] [address] Dr. Troy Jeter EGFR-NON AF KOSOVAN 55 mL/min/1.73m2 Critically low >=60 [facility] Comment on above: Performed By: #### C YTO #### [facility] [address] [place] [address] Dr. Troy Jeter Globulin (S) [Mass/Vol] 3.9 g/dL Normal [facility] Comment on above: Performed By: #### C YTO #### [facility] [address] [address] [address] Troy Jeter Glucose [Mass/Vol] 112 mg/dL Critically high 74-106 [facility] Comment on above: Performed By: #### C YTO #### [facility] [address] [address] [address] Troy Jeter Potassium [Moles/Vol] 4.1 mmol/L Normal 3.5-5.1 [facility] Comment on above: Performed By: #### C YTO #### [facility] [address] [address] [address] Troy Jeter Protein [Mass/Vol] 7.1 g/dL Normal 6.4-8.2 [facility] Comment on above: Performed By: #### C YTO #### [facility] [address] [place] [address] Dr. Troy Jeter Sodium [Moles/Vol] 140 mmol/L Normal 136-[address] [facility] Comment on above: Performed By: #### C YTO #### [facility] [address] [place] [address] Dr. Troy Jeter Urea nitrogen [Mass/Vol] 14.0 mg/dL Normal 7.0-18.0 [facility] Comment on above: Performed By: #### C YTO #### [facility] [address] [place] [address] Dr. Troy Jeter Urea nitrogen/Creatinine [Mass ratio] 13.9 mg/mg Normal [facility] Comment on above: Performed By: #### C YTO #### [facility] [address] [place] [address] Dr. Troy Jeter TSHon 03-02-2023 TSH 3.047 uIU/mL Normal 0.358-3.740 [facility] Comment on above: Performed By: #### C YTO #### [facility] [address] [place] [address] Dr. Troy Jeter CYTOLOGYon 12-28-2022 SENT TO REF LAB 12/28/2022 Normal [facility] Comment on above: Performed By: #### C YTO #### [facility] [address] [place] [address] Dr. Troy Jeter SENT TO REF LAB 12/28/2022 Normal [facility] Comment on above: Performed By: #### C YTO #### [facility] [address] [place] [address] Dr. Troy Jeter PROTIMEon 12-21-2022 INR Coag (PPP) [Relative time] 1.00 {INR} Normal [facility] Comment on above: Performed By: #### C YTO #### [facility] [address] [place] [address] Dr. Troy Jeter INR GUIDELINES SEE BELOW Normal [facility] Comment on above: Result Comment: LORENA RED INR: 2.0 - 3.0 CONDITIONS NOT LISTED BELOW 2.5 - 3.5 FOR PROSTHETIC HEART VALVE REPLACEMENT 2.5 - 3.5 RECURRENT THROMBOSIS Performed By: #### C YTO #### [facility] [address] [place] [address] Dr. Troy Jeter PT Coag (PPP) [Time] 10.6 s Normal 9.0-11.6 [facility] Comment on above: Performed By: #### C YTO #### [facility] [address] [place] [address] Dr. Troy Jeter PTTon 12-21-2022 aPTT Coag (Bld) [Time] 26.9 s Normal 22.3-36.2 [facility] Comment on above: Performed By: #### C YTO #### [facility] [address] [place] [address] Dr. Troy Jeter CYTOLOGYon 12-07-2022 SENT TO REF LAB 12/07/2022 Normal [facility] Comment on above: Performed By: #### C YTO #### [facility] [address] [place] [address] Dr. Troy Jeter CBC AUTO DIFFon 11-23-2022 BASO # 0.1 103/ul Normal 0.0-0.1 [facility] Comment on above: Performed By: #### C BC #### [facility] [address] [place] [address] Dr. Troy Jeter Basophils/100 WBC (Bld) 1.0 % Normal 0.2-2.0 [facility] Comment on above: Performed By: #### C BC #### [facility] [address] [place] [address] Dr. Troy Jeter EO # 0.1 103/ul Normal 0.0-0.7 [facility] Comment on above: Performed By: #### C BC #### [facility] [address] [place] [address] Dr. Troy Jeter Eosinophils/100 WBC (Bld) 2.4 % Normal 0.9-7.0 [facility] Comment on above: Performed By: #### C BC #### [facility] [address] [place] [address] Dr. Troy Jeter Erythrocyte distribution width (RBC) [Ratio] 14.6 % Normal 11.0-15.0 [facility] Comment on above: Performed By: #### C BC #### [facility] [address] [place] [address] Dr. Troy Jteer Hematocrit (Bld) [Volume fraction] 37.7 % Normal 36.0-48.0 [facility] Comment on above: Performed By: #### C BC #### [facility] [address] [place] [address] Dr. Troy Jeter Hemoglobin (Bld) [Mass/Vol] 11.0 g/dL Critically low 12.0-16.0 [facility] Comment on above: Performed By: #### C BC #### [facility] [address] [place] [address] Dr. Troy Jeter IG # 0.02 10e3/ul Normal 0.00-0.03 [facility] Comment on above: Performed By: #### C BC #### [facility] [address] [place] [address] Dr. Troy Jeter IG % 0.4 % Normal 0.0-0.5 [facility] Comment on above: Performed By: #### C BC #### [facility] [address] [place] [address] Dr. Troy Jeter LYMPH # 1.3 103/ul Normal 1.2-3.8 [facility] Comment on above: Performed By: #### C BC #### [facility] [address] [place] [address] Dr. Troy Jeter Lymphocytes/100 WBC (Bld) 25.5 % Normal 20.5-60.0 [facility] Comment on above: Performed By: #### C BC #### [facility] [address] [place] [address] Dr. Troy Jeter MANUAL DIFF REQ NO Normal [facility] Comment on above: Performed By: #### C BC #### [facility] [address] [address] [address] Troy Jeter MCH (RBC) [Entitic mass] 25.9 pg Critically low 26.7-34.0 [facility] Comment on above: Performed By: #### C BC #### [facility] [address] [place] [address] Dr. Troy Jeter MCHC (RBC) [Mass/Vol] 29.2 g/dL Critically low 29.9-35.2 [facility] Comment on above: Performed By: #### C BC #### [facility] [address] [place] [address] Dr. Troy Jeter MCV (RBC) [Entitic vol] 88.7 fL Normal 81.0-99.0 [facility] Comment on above: Performed By: #### C BC #### [facility] [address] [place] [address] Dr. Troy Jeter MONO # 0.4 103/ul Normal 0.3-0.8 [facility] Comment on above: Performed By: #### C BC #### [facility] [address] [place] [address] Dr. Troy Jeter Monocytes/100 WBC (Bld) 8.6 % Normal 1.7-12.0 [facility] Comment on above: Performed By: #### C BC #### [facility] [address] [place] [address] Dr. Troy Jeter NEUT # 3.2 103/ul Normal 1.4-6.5 [facility] Comment on above: Performed By: #### C BC #### [facility] [address] [place] [address] Dr. Troy Jeter Neutrophils/100 WBC (Bld) 62.1 % Normal 43.0-75.0 [facility] Comment on above: Performed By: #### C BC #### [facility] [address] [place] [address] Dr. Troy Jeter Platelet mean volume (Bld) [Entitic vol] 9.4 fL Critically low 9.5-13.5 [facility] Comment on above: Performed By: #### C BC #### [facility] [address] [address] [address] Troy Jeter PLT 190 103/ul Normal 150-450 [facility] Comment on above: Performed By: #### C BC #### [facility] [address] [place] [address] Dr. Troy Jeter RBC 4.25 106/ul Normal 4.20-5.40 [facility] Comment on above: Performed By: #### C BC #### [facility] [address] [address] [address] Troy Jeter WBC 5.1 103/ul Normal 4.0-11.0 [facility] Comment on above: Performed By: #### C BC #### [facility] [address] [place] [address] Dr. Troy Jeter PROF 14(COMP METB)on 023 Albumin [Mass/Vol] 3.4 g/dL Normal 3.4-5.0 [facility] Comment on above: Performed By: #### C BC #### [facility] [address] [place] [address] Dr. Troy Jeter Albumin/Globulin [Mass ratio] 0.9 {ratio} Normal [facility] Comment on above: Performed By: #### C BC #### [facility] [address] [place] [address] Dr. Troy Jeter ALP [Catalytic activity/Vol] 99 U/L Normal 46-116 [facility] Comment on above: Performed By: #### C BC #### [facility] [address] [place] [address] Dr. Troy Jeter ALT [Catalytic activity/Vol] 67 U/L Critically high 14-59 [facility] Comment on above: Performed By: #### C BC #### [facility] [address] [place] [address] Dr. Troy Jeter Anion gap [Moles/Vol] 12.8 mmol/L Normal [facility] Comment on above: Performed By: #### C BC #### [facility] [address] [address] [address] Troy Jeter AST [Catalytic activity/Vol] 54 U/L Critically high 15-37 [facility] Comment on above: Performed By: #### C BC #### [facility] [address] [place] [address] Dr. Troy Jeter Bilirubin [Mass/Vol] 0.4 mg/dL Normal 0.2-1.0 [facility] Comment on above: Performed By: #### C BC #### [facility] [address] [place] [address] Dr. Troy Jeter Calcium [Mass/Vol] 9.3 mg/dL Normal 8.5-10.1 [facility] Comment on above: Performed By: #### C BC #### [facility] [address] [place] [address] Dr. Troy Jeter Chloride [Moles/Vol] 106 mmol/L Normal 98-107 [facility] Comment on above: Performed By: #### C BC #### [facility] [address] [place] [address] Dr. Troy Jeter CO2 [Moles/Vol] 24.9 mmol/L Normal 21.0-32.0 [facility] Comment on above: Performed By: #### C BC #### [facility] [address] [place] [address] Dr. Troy Jeter Creatinine [Mass/Vol] 0.89 mg/dL Normal 0.55-1.02 [facility] Comment on above: Performed By: #### C BC #### [facility] [address] [place] [address] Dr. Troy Jeter EGFR-AF KOSOVAN >60 Normal >=60 [facility] Comment on above: Performed By: #### C BC #### [facility] [address] [place] [address] Dr. Troy Jeter EGFR-NON AF KOSOVAN >60 Normal >=60 [facility] Comment on above: Performed By: #### C BC #### [facility] [address] [place] [address] Dr. Troy Jeter Globulin (S) [Mass/Vol] 3.7 g/dL Normal [facility] Comment on above: Performed By: #### C BC #### [facility] [address] [address] [address] Troy Jeter Glucose [Mass/Vol] 125 mg/dL Critically high 74-106 [facility] Comment on above: Performed By: #### C BC #### [facility] [address] [address] [address] Troy Jeter Potassium [Moles/Vol] 3.7 mmol/L Normal 3.5-5.1 [facility] Comment on above: Performed By: #### C BC #### [facility] [address] [place] [address] Dr. Troy Jeter Protein [Mass/Vol] 7.1 g/dL Normal 6.4-8.[address] [facility] Comment on above: Performed By: #### C BC #### [facility] [address] [place] [address] Dr. Troy Jeter Sodium [Moles/Vol] 140 mmol/L Normal 136-145 [facility] Comment on above: Performed By: #### C BC #### [facility] [address] [place] [address] Dr. Troy Jeter Urea nitrogen [Mass/Vol] 15.0 mg/dL Normal 7.0-18.0 [facility] Comment on above: Performed By: #### C BC #### [facility] [address] [place] [address] Dr. Troy Jeter Urea nitrogen/Creatinine [Mass ratio] 16.9 mg/mg Normal [facility] Comment on above: Performed By: #### C BC #### [facility] [address] [place], [place] [id number] Dr. Troy Jeter XR HAND RT MIN [...] JULISSA KAUFMAN Date: 2022-11-05 08:18 Normal [facility] CYTOLOGYon 08-10-2022 SENT TO REF LAB 08/10/22 Normal [facility] Comment on above: Performed By: #### C YTO #### [facility] [address] [place] [address] Dr. Troy Jeter CULTURE URINEon 07-28-2022 CULTURE [...] Meropenem S F Tetracycline R F Normal [facility] Comment on above: Performed By: #### C YTO #### [facility] [address] [place] [address] Dr. Troy Jeter BUNon 07-01-2022 Urea nitrogen [Mass/Vol] 14.0 mg/dL Normal 7.0-18.0 [facility] Comment on above: Performed By: #### C YTO #### [facility] [address] [place] [address] Dr. Troy Jeter CREATININEon 07-01-2022 Creatinine [Mass/Vol] 1.04 mg/dL Critically high 0.55-1.02 [facility] Comment on above: Performed By: #### C YTO #### [facility] [address] [place] [address] Dr. Troy Jeter EGFR-AF KOSOVAN >60 Normal >=60 [facility] Comment on above: Performed By: #### C YTO #### [facility] [address] [place], [place] [address] Dr. Troy Jeter EGFR-NON AF KOSOVAN 53 mL/min/1.73m2 Critically low >=60 [facility] Comment on above: Performed By: #### C YTO #### [facility] [address] [place], [place] [address] ABD/PELV WO W [...] SPARKLE RODRIGUEZ Date: 2022-07-01 11:40 Normal [facility] XR CHEST 2 Von 05-26-2022 SARS-CoV-2 (COVID-19) [...] FRANNY ZEE Date: 2022-05-26 13:26 Normal [facility] PROTIMEon 05-04-2022 INR Coag (PPP) [Relative time] 1.00 {INR} Normal [facility] Comment on above: Performed By: #### C YTO #### [facility] [address] [place] [address] Dr. Troy Jeter INR GUIDELINES SEE BELOW Normal [facility] Comment on above: Result Comment: LORENA RED INR: 2.0 - 3.0 CONDITIONS NOT LISTED BELOW 2.5 - 3.5 FOR PROSTHETIC HEART VALVE REPLACEMENT 2.5 - 3.5 RECURRENT THROMBOSIS Performed By: #### C YTO #### [facility] [address] [place] [address] Dr. Troy Jeter PT Coag (PPP) [Time] 10.8 s Normal 9.0-11.6 [facility] Comment on above: Performed By: #### C YTO #### [facility] [address] [place] [address] Dr. Troy Jeter PTTon 05-04-2022 aPTT Coag (Bld) [Time] 24.5 s Normal 22.3-36.2 [facility] Comment on above: Performed By: #### C YTO #### [facility] [address] [place] [address] Dr. Troy Jeter CYTOLOGYon 04-27-2022 SENT TO REF LAB 04/28/22 Normal [facility] Comment on above: Performed By: #### C YTO #### [facility] [address] [place] [address] Dr. Troy Jeter MG MAMM SCREEN LT 3D CADon 0 04-11-2022 MG MAMM SCREEN LT 3D CAD Patient: DANIELLA BEJARANO Exam Date: 04/11/2022 : 1960 Gender:F Ordering : DR BAYRON SINGH . Admission #: [id number] Family : Order #: [id number] CLICK HERE TO VIEW EXAM RADIOLOGY REPORT [...] breast cancer at age 68. LOCATION: [facility] BREAST COMPOSITION: Scattered areas fibroglandular density. [...] M.D. on 04/11/2022 at 13:44 Normal [facility] CBC AUTO DIFFon 03-31-2022 BASO # 0.0 103/ul Normal 0.0-0.1 [facility] Comment on above: Performed By: #### C BC #### [facility] [address] [address] [address] Troy Jeter Basophils/100 WBC (Bld) 0.0 % Critically low 0.2-2.0 [facility] Comment on above: Performed By: #### C BC #### [facility] [address] [address] [address] Troy Jeter EO # 0.1 103/ul Normal 0.0-0.7 [facility] Comment on above: Performed By: #### C BC #### [facility] [address] [address] [address] Troy Jeter Eosinophils/100 WBC (Bld) 2.1 % Normal 0.9-7.0 [facility] Comment on above: Performed By: #### C BC #### [facility] [address] [address] [address] Troy Jeter Erythrocyte distribution width (RBC) [Ratio] 14.3 % Normal 11.0-15.0 [facility] Comment on above: Performed By: #### C BC #### [facility] [address] [address] [address] Troy Jeter Hematocrit (Bld) [Volume fraction] 31.8 % Critically low 36.0-48.0 [facility] Comment on above: Performed By: #### C BC #### [facility] [address] [place] [address] Dr. Troy Jeter Hemoglobin (Bld) [Mass/Vol] 9.7 g/dL Critically low 12.0-16.0 [facility] Comment on above: Performed By: #### C BC #### [facility] [address] [place] [address] Dr. Troy Jeter IG # 0.01 10e3/ul Normal 0.00-0.03 [facility] Comment on above: Performed By: #### C BC #### [facility] [address] [place] [address] Dr. Troy Jeter IG % 0.3 % Normal 0.0-0.5 [facility] Comment on above: Performed By: #### C BC #### [facility] [address] [place] [address] Dr. Troy Jeter LYMPH # 0.7 103/ul Critically low 1.2-3.8 [facility] Comment on above: Performed By: #### C BC #### [facility] [address] [place] [address] Dr. Troy Jeter Lymphocytes/100 WBC (Bld) 25.3 % Normal 20.5-60.0 [facility] Comment on above: Performed By: #### C BC #### [facility] [address] [place] [address] Dr. Troy Jeter MANUAL DIFF REQ NO Normal [facility] Comment on above: Performed By: #### C BC #### [facility] [address] [place] [address] Dr. Troy Jeter MCH (RBC) [Entitic mass] 26.9 pg Normal 26.7-34.0 [facility] Comment on above: Performed By: #### C BC #### [facility] [address] [address] [address] Troy Jeter MCHC (RBC) [Mass/Vol] 30.5 g/dL Normal 29.9-35.2 [facility] Comment on above: Performed By: #### C BC #### [facility] [address] [address] [address] Troy Jeter MCV (RBC) [Entitic vol] 88.1 fL Normal 81.0-99.0 [facility] Comment on above: Performed By: #### C BC #### [facility] [address] [place] [address] Dr. Troy Jeter MONO # 0.4 103/ul Normal 0.3-0.8 [facility] Comment on above: Performed By: #### C BC #### [facility] [address] [place] [address] Dr. Troy Jeter Monocytes/100 WBC (Bld) 14.2 % Critically high 1.7-12.0 [facility] Comment on above: Performed By: #### C BC #### [facility] [address] [place] [address] Dr. Troy Jeter NEUT # 1.7 103/ul Normal 1.4-6.5 [facility] Comment on above: Performed By: #### C BC #### [facility] [address] [place] [address] Dr. Troy Jeter Neutrophils/100 WBC (Bld) 58.1 % Normal 43.0-75.0 [facility] Comment on above: Performed By: #### C BC #### [facility] [address] [place] [address] Dr. Troy Jeter Platelet mean volume (Bld) [Entitic vol] 9.3 fL Critically low 9.5-13.5 [facility] Comment on above: Performed By: #### C BC #### [facility] [address] [place] [address] Dr. Troy Jeter PLT 134 103/ul Critically low 150-450 [facility] Comment on above: Performed By: #### C BC #### [facility] [address] [place] [address] Dr. Troy Jeter RBC 3.61 106/ul Critically low 4.20-5.40 [facility] Comment on above: Performed By: #### C BC #### [facility] [address] [place] [address] Dr. Troy Jeter WBC 2.9 103/ul Critically low 4.0-11.0 [facility] Comment on above: Performed By: #### C BC #### [facility] [address] [place] [address] Dr. Troy Jeter PROF 14(COMP METB)on 022 Albumin [Mass/Vol] 2.7 g/dL Critically low 3.4-5.0 [facility] Comment on above: Performed By: #### C MP #### [facility] [address] [place] [address] Dr. Troy Jeter Albumin/Globulin [Mass ratio] 0.9 {ratio} Normal [facility] Comment on above: Performed By: #### C MP #### [facility] [address] [place] [address] Dr. Troy Jeter ALP [Catalytic activity/Vol] 51 U/L Normal 46-116 [facility] Comment on above: Performed By: #### C MP #### [facility] [address] [place] [address] Dr. Troy Jeter ALT [Catalytic activity/Vol] 57 U/L Normal 14-59 [facility] Comment on above: Performed By: #### C MP #### [facility] [address] [place] [address] Dr. Troy Jeter Anion gap [Moles/Vol] 16.1 mmol/L Normal [facility] Comment on above: Performed By: #### C MP #### [facility] [address] [place] [address] Dr. Troy Jeter AST [Catalytic activity/Vol] 69 U/L Critically high 15-37 [facility] Comment on above: Performed By: #### C MP #### [facility] [address] [address] [address] Troy Jeter Bilirubin [Mass/Vol] 0.2 mg/dL Normal 0.2-1.0 [facility] Comment on above: Performed By: #### C MP #### [facility] [address] [place] [address] Dr. Troy Jeter Calcium [Mass/Vol] 8.1 mg/dL Critically low 8.5-10.1 [facility] Comment on above: Performed By: #### C MP #### [facility] [address] [place] [address] Dr. Troy Jeter Chloride [Moles/Vol] 112 mmol/L Critically high 98-107 [facility] Comment on above: Performed By: #### C MP #### [facility] [address] [place] [address] Dr. Troy Jeter CO2 [Moles/Vol] 18.3 mmol/L Critically low 21.0-32.0 [facility] Comment on above: Performed By: #### C MP #### [facility] [address] [place] [address] Dr. Troy Jeter Creatinine [Mass/Vol] 0.89 mg/dL Normal 0.55-1.02 [facility] Comment on above: Performed By: #### C MP #### [facility] [address] [place] [address] Dr. Troy Jeter EGFR-AF KOSOVAN >60 Normal >=60 [facility] Comment on above: Performed By: #### C MP #### [facility] [address] [place] [address] Dr. Troy Jeter EGFR-NON AF KOSOVAN >60 Normal >=60 [facility] Comment on above: Performed By: #### C MP #### [facility] [address] [place] [address] Dr. Troy Jeter Globulin (S) [Mass/Vol] 3.0 g/dL Normal [facility] Comment on above: Performed By: #### C MP #### [facility] [address] [place] [address] Dr. Troy Jeter Glucose [Mass/Vol] 80 mg/dL Normal 74-106 [facility] Comment on above: Performed By: #### C MP #### [facility] [address] [place] [address] Dr. Troy Jeter Potassium [Moles/Vol] 3.4 mmol/L Critically low 3.5-5.1 [facility] Comment on above: Performed By: #### C MP #### [facility] [address] [place] [address] Dr. Troy Jeter Protein [Mass/Vol] 5.7 g/dL Critically low 6.4-8.2 [facility] Comment on above: Performed By: #### C MP #### [facility] [address] [place] [address] Dr. Troy Jeter Sodium [Moles/Vol] 143 mmol/L Normal 136-145 [facility] Comment on above: Performed By: #### C MP #### [facility] [address] [place] [address] Dr. Troy Jeter Urea nitrogen [Mass/Vol] 11.0 mg/dL Normal 7.0-18.0 [facility] Comment on above: Performed By: #### C MP #### [facility] [address] [place] [address] Dr. Troy Jeter Urea nitrogen/Creatinine [Mass ratio] 12.4 mg/mg Normal [facility] Comment on above: Performed By: #### C MP #### [facility] [address] [place] [address] Dr. Troy Jeter CBC AUTO DIFFon 03-30-2022 BASO # 0.0 103/ul Normal 0.0-0.1 [facility] Comment on above: Performed By: #### C BC #### [facility] [address] [place] [address] Dr. Troy Jeter Basophils/100 WBC (Bld) 0.3 % Normal 0.2-2.0 [facility] Comment on above: Performed By: #### C BC #### [facility] [address] [place] [address] Dr. Troy Jeter EO # 0.0 103/ul Normal 0.0-0.7 [facility] Comment on above: Performed By: #### C BC #### [facility] [address] [place] [address] Dr. Troy Jeter Eosinophils/100 WBC (Bld) 1.2 % Normal 0.9-7.0 [facility] Comment on above: Performed By: #### C BC #### [facility] [address] [place] [address] Dr. Troy Jeter Erythrocyte distribution width (RBC) [Ratio] 14.1 % Normal 11.0-15.0 [facility] Comment on above: Performed By: #### C BC #### [facility] [address] [place] [address] Dr. Troy Jeter Hematocrit (Bld) [Volume fraction] 32.5 % Critically low 36.0-48.0 [facility] Comment on above: Performed By: #### C BC #### [facility] [address] [place] [address] Dr. Troy Jeter Hemoglobin (Bld) [Mass/Vol] 9.8 g/dL Critically low 12.0-16.0 [facility] Comment on above: Performed By: #### C BC #### [facility] [address] [place] [address] Dr. Troy Jeter IG # 0.01 10e3/ul Normal 0.00-0.03 [facility] Comment on above: Performed By: #### C BC #### [facility] [address] [place] [address] Dr. Troy Jeter IG % 0.3 % Normal 0.0-0.5 [facility] Comment on above: Performed By: #### C BC #### [facility] [address] [place] [address] Dr. Troy Jeter LYMPH # 0.6 103/ul Critically low 1.2-3.8 [facility] Comment on above: Performed By: #### C BC #### [facility] [address] [place] [address] Dr. Troy Jeter Lymphocytes/100 WBC (Bld) 18.4 % Critically low 20.5-60.0 [facility] Comment on above: Performed By: #### C BC #### [facility] [address] [place] [address] Dr. Troy Jeter MANUAL DIFF REQ NO Normal [facility] Comment on above: Performed By: #### C BC #### [facility] [address] [place] [address] Dr. Troy Jeter MCH (RBC) [Entitic mass] 27.0 pg Normal 26.7-34.0 [facility] Comment on above: Performed By: #### C BC #### [facility] [address] [place] [address] Dr. Troy Jeter MCHC (RBC) [Mass/Vol] 30.2 g/dL Normal 29.9-35.2 [facility] Comment on above: Performed By: #### C BC #### [facility] [address] [place] [address] Dr. Troy Jeter MCV (RBC) [Entitic vol] 89.5 fL Normal 81.0-99.0 [facility] Comment on above: Performed By: #### C BC #### [facility] [address] [place] [address] Dr. Troy Jeter MONO # 0.4 103/ul Normal 0.3-0.8 [facility] Comment on above: Performed By: #### C BC #### [facility] [address] [place] [address] Dr. Troy Jeter Monocytes/100 WBC (Bld) 12.7 % Critically high 1.7-12.0 [facility] Comment on above: Performed By: #### C BC #### [facility] [address] [place] [address] Dr. Troy Jeter NEUT # 2.2 103/ul Normal 1.4-6.5 [facility] Comment on above: Performed By: #### C BC #### [facility] [address] [place] [address] Dr. Troy Jeter Neutrophils/100 WBC (Bld) 67.1 % Normal 43.0-75.0 [facility] Comment on above: Performed By: #### C BC #### [facility] [address] [address] [address] Troy Jeter Platelet mean volume (Bld) [Entitic vol] 9.7 fL Normal 9.5-13.5 [facility] Comment on above: Performed By: #### C BC #### [facility] [address] [address] [address] Troy Jeter PLT 140 103/ul Critically low 150-450 [facility] Comment on above: Performed By: #### C BC #### [facility] [address] [address] [address] Troy Jeter RBC 3.63 106/ul Critically low 4.20-5.40 [facility] Comment on above: Performed By: #### C BC #### [facility] [address] [place] [address] Dr. Troy Jeter WBC 3.3 103/ul Critically low 4.0-11.0 [facility] Comment on above: Performed By: #### C BC #### [facility] [address] [address] [address] Troy Jeter PROF 14(COMP METB)on 022 Albumin [Mass/Vol] 2.8 g/dL Critically low 3.4-5.0 [facility] Comment on above: Performed By: #### C BC #### [facility] [address] [place] [address] Dr. Troy Jeter Albumin/Globulin [Mass ratio] 0.9 {ratio} Normal [facility] Comment on above: Performed By: #### C BC #### [facility] [address] [address] [address] Troy Jeter ALP [Catalytic activity/Vol] 50 U/L Normal 46-116 [facility] Comment on above: Performed By: #### C BC #### [facility] [address] [place] [address] Dr. Troy Jeter ALT [Catalytic activity/Vol] 58 U/L Normal 14-59 [facility] Comment on above: Performed By: #### C BC #### [facility] [address] [address] [address] Troy Jeter Anion gap [Moles/Vol] 17.3 mmol/L Normal [facility] Comment on above: Performed By: #### C BC #### [facility] [address] [address] [address] Troy Jeter AST [Catalytic activity/Vol] 78 U/L Critically high 15-37 [facility] Comment on above: Performed By: #### C BC #### [facility] [address] [address] [address] Troy Jeter Bilirubin [Mass/Vol] 0.2 mg/dL Normal 0.2-1.0 [facility] Comment on above: Performed By: #### C BC #### [facility] [address] [address] [address] Troy Jeter Calcium [Mass/Vol] 8.0 mg/dL Critically low 8.5-10.1 [facility] Comment on above: Performed By: #### C BC #### [facility] [address] [address] [address] Troy Jeter Chloride [Moles/Vol] 112 mmol/L Critically high 98-107 [facility] Comment on above: Performed By: #### C BC #### [facility] [address] [address] [address] Troy Jeter CO2 [Moles/Vol] 17.0 mmol/L Critically low 21.0-32.0 [facility] Comment on above: Performed By: #### C BC #### [facility] [address] [address] [address] Troy Jeter Creatinine [Mass/Vol] 0.93 mg/dL Normal 0.55-1.02 [facility] Comment on above: Performed By: #### C BC #### [facility] [address] [address] [address] Troy Jeter EGFR-AF KOSOVAN >60 Normal >=60 [facility] Comment on above: Performed By: #### C BC #### [facility] [address] [address] [address] Troy Jeter EGFR-NON AF KOSOVAN >60 Normal >=60 [facility] Comment on above: Performed By: #### C BC #### [facility] [address] [address] [address] Troy Jeter Globulin (S) [Mass/Vol] 3.1 g/dL Normal [facility] Comment on above: Performed By: #### C BC #### [facility] [address] [address] [address] Troy Jeter Glucose [Mass/Vol] 77 mg/dL Normal 74-106 [facility] Comment on above: Performed By: #### C BC #### [facility] [address] [place] [address] Dr. Troy Jeter Potassium [Moles/Vol] 3.3 mmol/L Critically low 3.5-5.1 [facility] Comment on above: Performed By: #### C BC #### [facility] [address] [place] [address] Dr. Troy Jeter Protein [Mass/Vol] 5.9 g/dL Critically low 6.4-8.2 [facility] Comment on above: Performed By: #### C BC #### [facility] [address] [place] [address] Dr. Troy Jeter Sodium [Moles/Vol] 143 mmol/L Normal 136-145 [facility] Comment on above: Performed By: #### C BC #### [facility] [address] [place] [address] Dr. Troy Jeter Urea nitrogen [Mass/Vol] 12.0 mg/dL Normal 7.0-18.0 [facility] Comment on above: Performed By: #### C BC #### [facility] [address] [place] [address] Dr. Troy Jeter Urea nitrogen/Creatinine [Mass ratio] 12.9 mg/mg Normal [facility] Comment on above: Performed By: #### C BC #### [facility] [address] [place] [address] Dr. Troy Jeter CBC AUTO DIFFon 03-29-2022 BASO # 0.0 103/ul Normal 0.0-0.1 [facility] Comment on above: Performed By: #### C YTO #### [facility] [address] [place] [address] Dr. Troy Jeter Basophils/100 WBC (Bld) 0.2 % Normal 0.2-2.0 [facility] Comment on above: Performed By: #### C YTO #### [facility] [address] [place] [address] Dr. Troy Jeter EO # 0.0 103/ul Normal 0.0-0.7 [facility] Comment on above: Performed By: #### C YTO #### [facility] [address] [place] [address] Dr. Troy Jeter Eosinophils/100 WBC (Bld) 0.2 % Critically low 0.9-7.0 [facility] Comment on above: Performed By: #### C YTO #### [facility] [address] [place] [address] Dr. Troy Jeter Erythrocyte distribution width (RBC) [Ratio] 14.0 % Normal 11.0-15.0 [facility] Comment on above: Performed By: #### C YTO #### [facility] [address] [place] [address] Dr. Troy Jeter Hematocrit (Bld) [Volume fraction] 35.4 % Critically low 36.0-48.0 [facility] Comment on above: Performed By: #### C YTO #### [facility] [address] [place] [address] Dr. Troy Jeter Hemoglobin (Bld) [Mass/Vol] 10.9 g/dL Critically low 12.0-16.0 [facility] Comment on above: Performed By: #### C YTO #### [facility] [address] [place] [address] Dr. Troy Jeter IG # 0.03 10e3/ul Normal 0.00-0.03 [facility] Comment on above: Performed By: #### C YTO #### [facility] [address] [address] [address] Troy Jeter IG % 0.5 % Normal 0.0-0.5 [facility] Comment on above: Performed By: #### C YTO #### [facility] [address] [address] [address] Troy Jeter LYMPH # 0.3 103/ul Critically low 1.2-3.8 [facility] Comment on above: Performed By: #### C YTO #### [facility] [address] [place] [address] Dr. Troy Jeter Lymphocytes/100 WBC (Bld) 5.8 % Critically low 20.5-60.0 [facility] Comment on above: Performed By: #### C YTO #### [facility] [address] [place] [address] Dr. Troy Jeter MANUAL DIFF REQ NO Normal [facility] Comment on above: Performed By: #### C YTO #### [facility] [address] [place] [address] Dr. Troy Jeter MCH (RBC) [Entitic mass] 27.3 pg Normal 26.7-34.0 [facility] Comment on above: Performed By: #### C YTO #### [facility] [address] [place] [address] Dr. Troy Jeter MCHC (RBC) [Mass/Vol] 30.8 g/dL Normal 29.9-35.2 [facility] Comment on above: Performed By: #### C YTO #### [facility] [address] [place] [address] Dr. Troy Jeter MCV (RBC) [Entitic vol] 88.7 fL Normal 81.0-99.0 [facility] Comment on above: Performed By: #### C YTO #### [facility] [address] [place] [address] Dr. Troy Jeter MONO # 0.3 103/ul Normal 0.3-0.8 [facility] Comment on above: Performed By: #### C YTO #### [facility] [address] [address] [address] Troy Jeter Monocytes/100 WBC (Bld) 6.2 % Normal 1.7-12.0 [facility] Comment on above: Performed By: #### C YTO #### [facility] [address] [address] [address] Troy Jeter NEUT # 4.8 103/ul Normal 1.4-6.5 [facility] Comment on above: Performed By: #### C YTO #### [facility] [address] [place] [address] Dr. Troy Jeter Neutrophils/100 WBC (Bld) 87.1 % Critically high 43.0-75.0 [facility] Comment on above: Performed By: #### C YTO #### [facility] [address] [place] [address] Dr. Troy Jeter Platelet mean volume (Bld) [Entitic vol] 9.6 fL Normal 9.5-13.5 [facility] Comment on above: Performed By: #### C YTO #### [facility] [address] [place] [address] Dr. Troy Jeter PLT 176 103/ul Normal 150-450 [facility] Comment on above: Performed By: #### C YTO #### [facility] [address] [place] [address] Dr. Troy Jeter RBC 3.99 106/ul Critically low 4.20-5.40 [facility] Comment on above: Performed By: #### C YTO #### [facility] [address] [place] [address] Dr. Troy Jeter WBC 5.5 103/ul Normal 4.0-11.0 [facility] Comment on above: Performed By: #### C YTO #### [facility] [address] [place] [address] Dr. Troy Jeter PROF 14(COMP METB)on 022 Albumin [Mass/Vol] 3.1 g/dL Critically low 3.4-5.0 [facility] Comment on above: Performed By: #### C YTO #### [facility] [address] [address] [address] Troy Jeter Albumin/Globulin [Mass ratio] 0.9 {ratio} Normal [facility] Comment on above: Performed By: #### C YTO #### [facility] [address] [address] [address] Troy Jeter ALP [Catalytic activity/Vol] 58 U/L Normal 46-116 [facility] Comment on above: Performed By: #### C YTO #### [facility] [address] [address] [address] Troy Jeter ALT [Catalytic activity/Vol] 49 U/L Normal 14-59 [facility] Comment on above: Performed By: #### C YTO #### [facility] [address] [place] [address] Dr. Troy Jeter Anion gap [Moles/Vol] 15.7 mmol/L Normal [facility] Comment on above: Performed By: #### C YTO #### [facility] [address] [place] [address] Dr. Tory Jeter AST [Catalytic activity/Vol] 59 U/L Critically high 15-37 [facility] Comment on above: Performed By: #### C YTO #### [facility] [address] [place] [address] Dr. Troy Jeter Bilirubin [Mass/Vol] 0.3 mg/dL Normal 0.2-1.0 [facility] Comment on above: Performed By: #### C YTO #### [facility] [address] [place] [address] Dr. Troy Jeter Calcium [Mass/Vol] 8.1 mg/dL Critically low 8.5-10.1 [facility] Comment on above: Performed By: #### C YTO #### [facility] [address] [place] [address] Dr. Troy Jeter Chloride [Moles/Vol] 110 mmol/L Critically high 98-107 [facility] Comment on above: Performed By: #### C YTO #### [facility] [address] [address] [address] Troy Jeter CO2 [Moles/Vol] 20.8 mmol/L Critically low 21.0-32.0 [facility] Comment on above: Performed By: #### C YTO #### [facility] [address] [address] [address] Troy Jeter Creatinine [Mass/Vol] 0.94 mg/dL Normal 0.55-1.02 [facility] Comment on above: Performed By: #### C YTO #### [facility] [address] [address] [address] Troy Jeter EGFR-AF KOSOVAN >60 Normal >=60 [facility] Comment on above: Performed By: #### C YTO #### [facility] [address] [place] [address] Dr. Troy Jeter EGFR-NON AF KOSOVAN 60 mL/min/1.73m2 Normal >=60 [facility] Comment on above: Performed By: #### C YTO #### [facility] [address] [address] [address] Troy Jeter Globulin (S) [Mass/Vol] 3.4 g/dL Normal [facility] Comment on above: Performed By: #### C YTO #### [facility] [address] [place] [address] Dr. Troy Jeter Glucose [Mass/Vol] 95 mg/dL Normal 74-[address] [facility] Comment on above: Performed By: #### C YTO #### [facility] [address] [address] [address] Troy Jeter Potassium [Moles/Vol] 3.5 mmol/L Normal 3.5-5.1 [facility] Comment on above: Performed By: #### C YTO #### [facility] [address] [address] [address] Troy Jeter Protein [Mass/Vol] 6.5 g/dL Normal 6.4-8.[address] [facility] Comment on above: Performed By: #### C YTO #### [facility] [address] [place] [address] Dr. Troy Jeter Sodium [Moles/Vol] 143 mmol/L Normal 136-145 [facility] Comment on above: Performed By: #### C YTO #### [facility] [address] [place] [address] Dr. Troy Jeter Urea nitrogen [Mass/Vol] 18.0 mg/dL Normal 7.0-18.0 [facility] Comment on above: Performed By: #### C YTO #### [facility] [address] [place] [address] Dr. Troy Jeter Urea nitrogen/Creatinine [Mass ratio] 19.1 mg/mg Normal [facility] Comment on above: Performed By: #### C YTO #### [facility] [address] [place] [address] Dr. Troy Jeter CBC W MANUAL DIFFon 03-28-20 22 ATYPICAL LYMPH # Normal [facility] Comment on above: Performed By: #### C YTO #### [facility] [address] [place] [address] Dr. Troy Jeter ATYPICAL LYMPH % Normal [facility] Comment on above: Performed By: #### C YTO #### [facility] [address] [place] [address] Dr. Troy Jeter BAND # 0.1 103/ul Normal 0.0-0.3 [facility] Comment on above: Performed By: #### C YTO #### [facility] [address] [place] [address] Dr. Troy Jeter BAND % 1 % Normal 0-5 [facility] Comment on above: Performed By: #### C YTO #### [facility] [address] [place] [address] Dr. Troy Jeter BASOM # 0.08 103/ul Normal 0.00-0.10 [facility] Comment on above: Performed By: #### C YTO #### [facility] [address] [place] [address] Dr. Troy Jeter BASOM % 1.0 % Normal 0.2-2.0 [facility] Comment on above: Performed By: #### C YTO #### [facility] [address] [address] [address] Troy Jeter BLAST # Normal [facility] Comment on above: Performed By: #### C YTO #### [facility] [address] [place] [address] Dr. Troy Jeter BLAST % Normal [facility] Comment on above: Performed By: #### C YTO #### [facility] [address] [address] [address] Troy Jeter CORRECTED WBC Normal 4.0-11.0 [facility] Comment on above: Performed By: #### C YTO #### [facility] [address] [place] [address] Dr. Troy Jeter EOS # 0.00 103/ul Normal 0.00-0.70 [facility] Comment on above: Performed By: #### C YTO #### [facility] [address] [place] [address] Dr. Troy Jeter EOS% 0.0 % Critically low 0.9-7.0 [facility] Comment on above: Performed By: #### C YTO #### [facility] [address] [place] [address] Dr. Troy Jeter HCT 40.2 % Normal 36.0-48.0 [facility] Comment on above: Performed By: #### C YTO #### [facility] [address] [place] [address] Dr. Troy Jeter HGB 12.5 g/dl Normal 12.0-16.0 [facility] Comment on above: Performed By: #### C YTO #### [facility] [address] [address] [address] Troy Jeter LYMPHM # 0.23 103/ul Critically low 1.20-3.80 [facility] Comment on above: Performed By: #### C YTO #### [facility] [address] [place] [address] Dr. Troy Jeter LYMPHM% 3.0 % Critically low 20.5-60.0 [facility] Comment on above: Performed By: #### C YTO #### [facility] [address] [place] [address] Dr. Troy Jeter MCH 27.1 pg Normal 26.7-34.0 [facility] Comment on above: Performed By: #### C YTO #### [facility] [address] [place] [address] Dr. Troy Jeter MCHC 31.1 g/dl Normal 29.9-35.2 [facility] Comment on above: Performed By: #### C YTO #### [facility] [address] [place] [address] Dr. Troy Jeter MCV 87.2 fL Normal 81.0-99.0 [facility] Comment on above: Performed By: #### C YTO #### [facility] [address] [place] [address] Dr. Troy Jeter METAMYELOCYTE # Normal [facility] Comment on above: Performed By: #### C YTO #### [facility] [address] [place] [address] Dr. Troy Jeter METAMYELOCYTE % Normal [facility] Comment on above: Performed By: #### C YTO #### [facility] [address] [place] [address] Dr. Troy Jeter MONOM# 0.08 103/ul Critically low 0.30-0.80 [facility] Comment on above: Performed By: #### C YTO #### [facility] [address] [place] [address] Dr. Troy Jeter MONOM% 1.0 % Critically low 1.7-12.0 [facility] Comment on above: Performed By: #### C YTO #### [facility] [address] [place] [address] Dr. Troy Jeter MPV 10.0 fL Normal 9.5-13.5 [facility] Comment on above: Performed By: #### C YTO #### [facility] [address] [place] [address] Dr. Troy Jeter MYELOCYTE # Normal [facility] Comment on above: Performed By: #### C YTO #### [facility] [address] [place] [address] Dr. Troy Jeter MYELOCYTE % Normal [facility] Comment on above: Performed By: #### C YTO #### [facility] [address] [place] [address] Dr. Troy Jeter NRBC Normal [facility] Comment on above: Performed By: #### C YTO #### [facility] [address] [place] [address] Dr. Troy Jeter PLT 230 103/ul Normal 150-450 [facility] Comment on above: Performed By: #### C YTO #### [facility] [address] [place] [address] Dr. Troy Jeter RBC 4.61 106/ul Normal 4.20-5.40 [facility] Comment on above: Performed By: #### C YTO #### [facility] [address] [place] [address] Dr. Troy Jeter RDW 13.8 % Normal 11.0-15.0 [facility] Comment on above: Performed By: #### C YTO #### [facility] [address] [place] [address] Dr. Troy Jeter SEG # 7.14 103/ul Critically high 1.40-6.50 [facility] Comment on above: Performed By: #### C YTO #### [facility] [address] [place] [address] Dr. Troy Jeter SEG % 94.0 % Critically high 43.0-75.0 [facility] Comment on above: Performed By: #### C YTO #### [facility] [address] [place] [address] Dr. Troy Jeter WBC 7.6 103/ul Normal 4.0-11.0 [facility] Comment on above: Performed By: #### C YTO #### [facility] [address] [place] [address] ABD/PELVIS WO CONon [...] ABDIAZIZ HALEY Date: 2022-03-28 16:37 Normal [facility]01 SARS-CoV-2 (COVID-19) RNA BRANDEN+probe Ql (Unsp spec) Not detected Normal NOT DETECTED [facility] Comment on above: Result Comment: When [...] for this test is supported by the [employer] and Human Service's declaration that [...] used). Performed By: #### C VDTBH #### [facility] [address] [place] [address] Dr. Troy Jeter ER URINE PROFILEon 2 Bilirubin Ql (U) Negative Normal NEGATIVE [facility] Comment on above: Performed By: #### C BC #### [facility] [address] [place] [address] Dr. Troy Jeter Clarity (U) CLEAR Normal CLEAR [facility] Comment on above: Performed By: #### C BC #### [facility] [address] [place] [address] Dr. Troy Jeter Color (U) LT. YELLOW Normal YELLOW [facility] Comment on above: Performed By: #### C BC #### [facility] [address] [place] [address] Dr. Troy Jeter ERUAHD A micrscopic examination will be performed if indicated. Normal [facility] Comment on above: Performed By: #### C BC #### [facility] [address] [place] [address] Dr. Troy Jeter Glucose Ql (U) Negative Normal NEGATIVE [facility] Comment on above: Performed By: #### C BC #### [facility] [address] [place] [address] Dr. Troy Jeter Hemoglobin Ql (U) SMALL Abnormal NEGATIVE [facility] Comment on above: Performed By: #### C BC #### [facility] [address] [place] [address] Dr. Troy Jetre Ketones Ql (U) Negative Normal NEGATIVE [facility] Comment on above: Performed By: #### C BC #### [facility] [address] [place] [address] Dr. Troy Jeter LEUKOCYTES Negative Normal NEGATIVE [facility] Comment on above: Performed By: #### C BC #### [facility] [address] [place] [address] Dr. Troy Jeter Nitrite Ql (U) Negative Normal NEGATIVE [facility] Comment on above: Performed By: #### C BC #### [facility] [address] [place] [address] Dr. Troy Jeter pH (U) 6.0 [pH] Normal 5-9 [facility] Comment on above: Performed By: #### C BC #### [facility] [address] [place] [address] Dr. Troy Jeter SPEC GRAVITY 1.020 Normal 1.005-<=1.025 [facility] Comment on above: Performed By: #### C BC #### [facility] [address] [place] [address] Dr. Troy Jeter UA PROTEIN Negative Normal NEGATIVE/ TRACE [facility] Comment on above: Performed By: #### C BC #### [facility] [address] [place] [address] Dr. Troy Jeter UR MICRO IND INDICATED Normal [facility] Comment on above: Performed By: #### C BC #### [facility] [address] [place] [address] Dr. Troy Jeter Urobilinogen Qn (U) 0.2 {Kriss'U}/dL Normal 0.2 - 1. 0 [facility] Comment on above: Performed By: #### C BC #### [facility] [address] [place] [address] Dr. Troy Jeter GI PANEL (PCR)on 03-28-2022 Adenovirus F 40/41 Not detected Normal NOT DETECTED [facility] Comment on above: Performed By: #### C YTO #### [facility] [address] [place] [address] Dr. Troy Jeter Astrovirus Not detected Normal NOT DETECTED [facility] Comment on above: Performed By: #### C YTO #### [facility] [address] [place] [address] Dr. Troy Cid. Diff toxin A/B Not detected Normal NOT DETECTED [facility] Comment on above: Performed By: #### C YTO #### [facility] [address] [place] [address] Dr. Troy Jeter Campylobacter Not detected Normal NOT DETECTED [facility] Comment on above: Performed By: #### C YTO #### [facility] [address] [place] [address] Dr. Troy Jetre Cryptosporidium Not detected Normal NOT DETECTED [facility] Comment on above: Performed By: #### C YTO #### [facility] [address] [address] [address] Troy Jeter Cyclos. Cayetanensis Not detected Normal NOT DETECTED [facility] Comment on above: Performed By: #### C YTO #### [facility] [address] [place] [address] Dr. Troy Jeter E. Coli O157 Not Applicable Normal Not Applicable [facility] Comment on above: Performed By: #### C YTO #### [facility] [address] [place] [address] Dr. Troy Jeter E. histolytica Not detected Normal NOT DETECTED [facility] Comment on above: Performed By: #### C YTO #### [facility] [address] [place] [address] Dr. Troy Jeter EAEC Not detected Normal NOT DETECTED [facility] Comment on above: Performed By: #### C YTO #### [facility] [address] [place] [address] Dr. Troy Jeter EIEC Not detected Normal NOT DETECTED [facility] Comment on above: Performed By: #### C YTO #### [facility] [address] [place] [address] Dr. Troy Jeter EPEC Not detected Normal NOT DETECTED [facility] Comment on above: Performed By: #### C YTO #### [facility] [address] [place] [address] Dr. Troy Jeter ETEC Not detected Normal NOT DETECTED [facility] Comment on above: Performed By: #### C YTO #### [facility] [address] [place] [address] Dr. Yilan Jeter G. Lamblia Not detected Normal NOT DETECTED [facility] Comment on above: Performed By: #### C YTO #### [facility] [address] [place] [address] Dr. Troy KIMBROUGH CONTROLS PASSED Normal [facility] Comment on above: Performed By: #### C YTO #### [facility] [address] [address] [address] Troy DINERO HEADER GI PANEL BACTERIA Normal [facility] Comment on above: Performed By: #### C YTO #### [facility] [address] [address] [address] Troy JIMENEZ ECOLI GI PANEL DIARRHEAGEN IC E.COLI / SHIGELLA Normal [facility] Comment on above: Performed By: #### C YTO #### [facility] [address] [place] [address] Dr. Troy JIMENEZ INFO SEE BELOW Normal [facility] Comment on above: Result Comment: EAEC - Enteroaggregative E. Coli EPEC- Enteropathogenic E. Coli ETEC- Enterotoxigenic E. Coli lt/st STEC- Shigella-like toxin-producing E. Coli stx1/stx2 EIEC- Shigella/Enteroinvasive E. Coli Performed By: #### C YTO #### [facility] [address] [place] [address] Dr. Troy JIMENEZ PARASITES GI PANEL PARASITES Normal [facility] Comment on above: Performed By: #### C YTO #### [facility] [address] [place] [address] Dr. Troy JIMENEZ VIRUS GI PANEL VIRUSES Normal [facility] Comment on above: Performed By: #### C YTO #### [facility] [address] [place] [address] Dr. Troy Jeter Norovirus GI/GII Not detected Normal NOT DETECTED [facility] Comment on above: Performed By: #### C YTO #### [facility] [address] [place] [address] Dr. Troy Jeter P. Shigelloides Not detected Normal NOT DETECTED [facility] Comment on above: Performed By: #### C YTO #### [facility] [address] [place] [address] Dr. Troy Jeter Rotavirus A Detected Abnormal NOT DETECTED [facility] Comment on above: Performed By: #### C YTO #### [facility] [address] [place] [address] Dr. Troy Jeter Salmonella Not detected Normal NOT DETECTED [facility] Comment on above: Performed By: #### C YTO #### [facility] [address] [place] [address] Dr. Troy Jeter Sapovirus Not detected Normal NOT DETECTED [facility] Comment on above: Performed By: #### C YTO #### [facility] [address] [place] [address] Dr. Troy Jeter STEC Not detected Normal NOT DETECTED [facility] Comment on above: Performed By: #### C YTO #### [facility] [address] [place] [address] Dr. Troy Jeter Vibrio Not detected Normal NOT DETECTED [facility] Comment on above: Performed By: #### C YTO #### [facility] [address] [place] [address] Dr. Troy Jeter Vibrio Cholera Not detected Normal NOT DETECTED The [facility] Comment on above: Performed By: #### C YTO #### [facility] [address] [place] [address] Dr. Troy Jeter Y. Enterocolitica Not detected Normal NOT DETECTED [facility] Comment on above: Performed By: #### C YTO #### [facility] [address] [place] [address] Dr. Troy Jeter LACTATE/LACTIC ACIDon 2021 Lactate [Moles/Vol] 1.7 mmol/L Normal 0.4-1.9 [facility] Comment on above: Performed By: #### C BC #### [facility] [address] [place] [address] Dr. Troy Jeter LIPASEon 03-28-2022 Lipase [Catalytic activity/Vol] 135.0 U/L Normal 73.0-393.0 [facility] Comment on above: Performed By: #### L IPA, CMP #### [facility] [address] [place] [address] Dr. Troy Jeter PROF 14(COMP METB)on 022 Albumin [Mass/Vol] 3.9 g/dL Normal 3.4-5.0 [facility] Comment on above: Performed By: #### L IPA, CMP #### [facility] [address] [place] [address] Dr. Troy Jeter Albumin/Globulin [Mass ratio] 1.0 {ratio} Normal [facility] Comment on above: Performed By: #### L IPA, CMP #### [facility] [address] [place] [address] Dr. Troy Jeter ALP [Catalytic activity/Vol] 81 U/L Normal 46-116 [facility] Comment on above: Performed By: #### L IPA, CMP #### [facility] [address] [place] [address] Dr. Troy Jeter ALT [Catalytic activity/Vol] 45 U/L Normal 14-59 [facility] Comment on above: Performed By: #### L IPA, CMP #### [facility] [address] [place] [address] Dr. Troy Jeter Anion gap [Moles/Vol] 15.2 mmol/L Normal [facility] Comment on above: Performed By: #### L IPA, CMP #### [facility] [address] [place] [address] Dr. Troy Jeter AST [Catalytic activity/Vol] 42 U/L Critically high 15-37 [facility] Comment on above: Performed By: #### L IPA, CMP #### [facility] [address] [place] [address] Dr. Troy Jeter Bilirubin [Mass/Vol] 0.5 mg/dL Normal 0.2-1.0 [facility] Comment on above: Performed By: #### L IPA, CMP #### [facility] [address] [place] [address] Dr. Troy Jeter Calcium [Mass/Vol] 9.4 mg/dL Normal 8.5-10.1 [facility] Comment on above: Performed By: #### L IPA, CMP #### [facility] [address] [place] [address] Dr. Troy Jeter Chloride [Moles/Vol] 105 mmol/L Normal 98-107 [facility] Comment on above: Performed By: #### L IPA, CMP #### [facility] [address] [place] [address] Dr. Troy Jeter CO2 [Moles/Vol] 23.7 mmol/L Normal 21.0-32.0 [facility] Comment on above: Performed By: #### L IPA, CMP #### [facility] [address] [place] [address] Dr. Troy Jeter Creatinine [Mass/Vol] 0.91 mg/dL Normal 0.55-1.02 [facility] Comment on above: Performed By: #### L IPA, CMP #### [facility] [address] [place] [address] Dr. Troy Jeter EGFR-AF KOSOVAN >60 Normal >=60 [facility] Comment on above: Performed By: #### L IPA, CMP #### [facility] [address] [place] [address] Dr. Troy Jeter EGFR-NON AF KOSOVAN >60 Normal >=60 [facility] Comment on above: Performed By: #### L IPA, CMP #### [facility] [address] [place] [address] Dr. Troy Jeter Globulin (S) [Mass/Vol] 4.0 g/dL Normal [facility] Comment on above: Performed By: #### L IPA, CMP #### [facility] [address] [place] [address] Dr. Troy Jeter Glucose [Mass/Vol] 119 mg/dL Critically high 74-106 [facility] Comment on above: Performed By: #### L IPA, CMP #### [facility] [address] [place] [address] Dr. Troy Jeter Potassium [Moles/Vol] 3.9 mmol/L Normal 3.5-5.1 [facility] Comment on above: Performed By: #### L IPA, CMP #### [facility] [address] [place] [address] Dr. Troy Jeter Protein [Mass/Vol] 7.9 g/dL Normal 6.4-8.[address] [facility] Comment on above: Performed By: #### L IPA, CMP #### [facility] [address] [place] [address] Dr. Troy Jeter Sodium [Moles/Vol] 140 mmol/L Normal 136-[address] [facility] Comment on above: Performed By: #### L IPA, CMP #### [facility] [address] [place] [address] Dr. Troy Jeter Urea nitrogen [Mass/Vol] 16.0 mg/dL Normal 7.0-18.0 [facility] Comment on above: Performed By: #### L IPA, CMP #### [facility] [address] [place] [address] Dr. Troy Jeter Urea nitrogen/Creatinine [Mass ratio] 17.6 mg/mg Normal [facility] Comment on above: Performed By: #### L IPA, CMP #### [facility] [address] [place] [address] Dr. Troy Jeter URINE MICROSCOPIC ONLYon BACTERIA TRACE Abnormal NONE SEEN [facility] Comment on above: Performed By: #### C BC #### [facility] [address] [place] [address] Dr. Troy Jeter Bacteria identified Cx Nom (U) NOT INDICATED Normal [facility] Comment on above: Performed By: #### C BC #### [facility] [address] [place] [address] Dr. Troy Jeter CAST NONE SEEN Normal NONE SEEN [facility] Comment on above: Performed By: #### C BC #### [facility] [address] [place] [address] Dr. Troy Jeter Crystals LM Nom (Urine sed) NONE SEEN Normal NONE SEEN [facility] Comment on above: Performed By: #### C BC #### [facility] [address] [place] [address] Dr. Troy Jeter Epithelial cells LM Ql (Urine sed) FEW Abnormal NONE SEEN /RARE [facility] Comment on above: Performed By: #### C BC #### [facility] [address] [address] [address] Troy Jeter MUCOUS NONE SEEN Normal NONE SEEN [facility] Comment on above: Performed By: #### C BC #### [facility] [address] [place] [address] Dr. Troy Jeter RBC 2-5 Abnormal 0-2 [facility] Comment on above: Performed By: #### C BC #### [facility] [address] [place] [address] Dr. Troy Jeter WBC 0-2 Abnormal NONE SEEN [facility] Comment on above: Performed By: #### C BC #### [facility] [address] [place] [address] Dr. Troy Jeter [facility] Surgical Pathology Depar tmenton 08-13-2020 [facility] Surgical Pathology Department Name DANIELLA BEJARANO Pathologist: AMEE KELSEY DMD Date of Procedure: 08/13/2020 Date Received: 08/17/2020 Date Reported 08/25/2020 Submitting Physician: BUTCH LONG DDS Location: [facility] Other External # FINAL DIAGNOSIS A. LEFT LATERAL TONGUE, EXCISION: -- TRAUMATIC ULCER -- NEGATIVE FOR DYSPLASIA OR MALIGNANCY ICD-10/CPT: K14.0/33091 Electronically Signed Out By AMEE KELSEY DMD/ELIASS [...] sectioned and entirely submitted in 2 cassettes. [facility] Summary of Cassettes: Specimen Label Site A 1 tips 2 body of ellipse [facility]/08/19/2020 [facility] Department of Pathology [address] [place] [address] Normal [facility] Comment on above: Performed By: #### [facility] #### [facility] Surgical Pathology Department [address] [place] [address] Cardiovascular Lab Reporton 06-12-2020 Cardiovascular Lab Report [facility] Patient Name: [facility] MR #: [id number] Department of Physician: Nasra Bustos M.D. Division of Service Date: 06/11/2020 Cardiology Birthdate: 1960 Adult Cardiovascular Room #: [address] [place] [address] Cardiovascular Laboratory Report INDICATION: The patient a [...] consent. She was brought to labor relations or personnel negotiator in a fasting state. The right neck area was prepped and draped in usual fashion. Using ultrasound guidance and micropuncture technique, the right internal jugular vein was accessed. A 6-Croatian x 11 cm sheath was placed. A 6-Croatian Duron catheter was used for right heart catheterization with measurement of pressures and calculation of cardiac output using the estimated Daysi method. Duron catheter was removed. Access in the right radial artery was obtained using micropuncture technique. A 6-Croatian x 11 cm Hydrophilic sheath was advanced. Verapamil was given through the sheath and heparin was administered intravenously. Note that modified David's test was favorable on the right. Initial catheter advancement was made, feasible using an angled Glidewire to overcome a radial artery loop, following which bilateral selective coronary angiography was performed using 6-Croatian JL3.5 and JR5 diagnostic catheter. Catheters were [...] P/Nasra Bustos M.D. Date Trans: 06/12/2020 04:00 A/margueriet [id number] cc: Bayron Singh M.D. [address] [place] [address] Normal [facility] *SARS-CoV-2 COVID-19on 06-09 [id number] Not Detected Normal Not Detected [facility] Comment on above: Order Comment: The A ptima SARS-CoV-2 assay is a nucleic acid amplification test intended for the qualitative detection of RNA from SARS-CoV-2 isolated and purified from nasopharyngeal (CARTRIDGE LOADER),oropharyngeal (OP), nasal swab, sputum, and bronchoalveolar lavage (BAL) specimens from patients with signs and symptoms of infection who are suspected of COVID-19. Results are for the identification of SARS-CoV-2 RNA. The SARS-CoV-2 RNA is generally detectable during the acute phase of infection. The Aptima SARS-CoV-2 Assay on the [employer] system is intended for use by laboratory personnel specifically instructed and trained in the operation of the [employer] and [employer] system. The Aptima SARS-CoV-2 assay is [...] information. Performed By: #### 3 [id number] #### [facility] [address] [place] [address], [facility] 02-17-2020 CNPN Telephone (bewarket) HERBERTDANIELLA LEHMAN ([id number]) 1960 F Date Time Provider Department 02/17/20 BONNY FELIPE During your visit today, we recorded the following information about you: Ai Blount 02/17/2020 2:53 PM Signed Records faxed to [facility]. Allergies As of Date: 02/17/2020 (No [...] by mouth twice * OMEPRAZOLE 40 MG CAPSULE,CALYL* Take 40 mg by mouth twice jesus* BENICAR 20 MG TABLET Take 20 mg by mouth once niraj* Problem List As Of Date 02/17/2020 Noted Resolved Abnormal mammogram [R92.8] 12/27/2012 Cancer of breast, intraductal [D05.10] 06/13/2017 Encounter for screening for osteoporosis [Z13.8*06/13/2017 Encounter Status:Closed by AI COLVIN on 02/17/20 Normal [facility] Vital Signs Date Time Vital Sign Value Performing Clinician Facility 11-26-2024 10:39-0500 Body height 163.8 cm Bayron Singh MD Work Phone: [facility] 11-26-2024 10:39-0500 Body mass index (BMI) [Ratio] 47.32 kg/m2 Bayron Singh MD Work Phone: [facility] 11-26-2024 10:39-0500 Body temperature 97.5 [degF] Bayron Singh MD Work Phone: [facility] 11-26-2024 10:39-0500 Body weight 127.01 kg Bayron Singh MD Work Phone: [facility] 11-26-2024 10:39-0500 Diastolic blood pressure 74 mm[Hg] Bayron Singh MD Work Phone: [facility] 11-26-2024 10:39-0500 Heart rate 89 /min Bayron Singh MD Work Phone: [facility] 11-26-2024 10:39-0500 Respiratory rate 20 /min Bayron Singh MD Work Phone: [facility] 11-26-2024 10:39-0500 SaO2% (BldA) [Mass fraction] 96 % Bayron Singh MD Work Phone: [facility] 11-26-2024 10:39-0500 Systolic blood pressure 136 mm[Hg] Bayron Singh MD Work Phone: [facility] 08-28-2024 13:35-0400 Body height 163.8 cm Myrna Cordova DO Work Phone: [facility] 08-28-2024 13:35-0400 Body mass index (BMI) [Ratio] 46.14 kg/m2 Myrna Cordova DO Work Phone: [facility] 08-28-2024 13:35-0400 Body weight 123.83 kg Myrna Cordova DO Work Phone: [facility] 07-03-2024 13:35-0400 Body temperature 98.24 [degF] Jeff Booth [facility] 07-03-2024 13:35-0400 Diastolic blood pressure 78 mm[Hg] Jeff Booth [facility] 07-03-2024 13:35-0400 Heart rate 63 /min Jeff Booth [facility] 07-03-2024 13:35-0400 Mean blood pressure 91 mm[Hg] Jeff Booth [facility] 07-03-2024 13:35-0400 Respiratory rate 16 /min [facility] 07-03-2024 13:35-0400 SaO2% (BldA) [Mass fraction] 98 % [facility] 07-03-2024 13:35-0400 Systolic blood pressure 117 mm[Hg] [facility] 04-26-2023 10:40-0400 Heart rate 84 /min [facility] 04-26-2023 10:40-0400 SaO2% (BldA) [Mass fraction] 98 % [facility] 04-26-2023 10:40-0400 Body temperature 97.52 [degF] [facility] 04-26-2023 10:39-0400 Diastolic blood pressure 75 mm[Hg] [facility] 04-26-2023 10:39-0400 Mean blood pressure 87 mm[Hg] [facility] 04-26-2023 10:39-0400 Systolic blood pressure 111 mm[Hg] [facility] 04-26-2023 10:39-0400 Respiratory rate 16 /min [facility] 01-04-2023 08:01-0500 Blood Pressure Location Dina Lozadae [facility] 01-04-2023 08:01-0500 Diastolic blood pressure 82 mm[Hg] Dina Lue [facility] 01-04-2023 08:01-0500 Heart rate 71 /min Dina Lue [facility] 01-04-2023 08:01-0500 Systolic blood pressure 124 mm[Hg] Dina Lue [facility] 10-26-2022 10:26-0500 Blood Pressure Location AI RUY [facility] 10-26-2022 10:26-0500 Diastolic blood pressure 84 mm[Hg] AI RUY [facility] 10-26-2022 10:26-0500 Heart rate 65 /min AI RUY [facility] 10-26-2022 10:26-0500 Respiratory rate 16 /min AI RUY [facility] 10-26-2022 10:26-0500 Systolic blood pressure 123 mm[Hg] AI RUY [facility] 10-19-2022 08:01-0500 Blood Pressure Location Dina Lue [facility] 10-19-2022 08:01-0500 Diastolic blood pressure 64 mm[Hg] Dina Lue [facility] 10-19-2022 08:01-0500 Heart rate 66 /min Dina Lue [facility] 10-19-2022 08:01-0500 Systolic blood pressure 145 mm[Hg] Dina Lue [facility] 10-12-2022 08:11-0500 Blood Pressure Location Dina Lue [facility] 10-12-2022 08:11-0500 Diastolic blood pressure 68 mm[Hg] Dina Lue [facility] 10-12-2022 08:11-0500 Heart rate 74 /min Dina Lue [facility] 10-12-2022 08:11-0500 Respiratory rate 16 /min Dina Lue [facility] 10-12-2022 08:11-0500 Systolic blood pressure 132 mm[Hg] Dina Lue [facility] 07-06-2022 10:28-0400 Blood Pressure Location Dina Lue [facility] 07-06-2022 10:28-0400 Diastolic blood pressure 62 mm[Hg] Dina Lue [facility] 07-06-2022 10:28-0400 Heart rate 74 /min Dina Lue [facility] 07-06-2022 10:28-0400 Respiratory rate 16 /min Dina Lue [facility] 07-06-2022 10:28-0400 Systolic blood pressure 98 mm[Hg] Dina Lue [facility] 03-02-2022 09:27-0400 Blood Pressure Location AI RUY [facility] 03-02-2022 09:27-0400 Diastolic blood pressure 66 mm[Hg] AI RUY [facility] 03-02-2022 09:27-0400 Heart rate 64 /min AI RUY [facility] 03-02-2022 09:27-0400 Systolic blood pressure 137 mm[Hg] [facility] RED[facility]D [facility] 02-09-2022 08:17-0400 Blood Pressure Location [facility] Lue [facility] 02-09-2022 08:17-0400 Diastolic blood pressure 64 mm[Hg] [facility] 02-09-2022 08:17-0400 Heart rate 60 /min Dina Lue [facility] 02-09-2022 08:17-0400 Respiratory rate 16 /min Dina Lue [facility] 02-09-2022 08:17-0400 Systolic blood pressure 133 mm[Hg] D[facility] Lue [facility] 02-02-2022 08:03-0400 Blood Pressure Location [facility]ina Lue [facility] 02-02-2022 08:03-0400 Diastolic blood pressure 100 mm[Hg] [facility]ue [facility] 02-02-2022 08:03-0400 Heart rate 72 /min [facility] 02-02-2022 08:03-0400 Systolic blood pressure 144 mm[Hg] Dina Lue [facility] 01-26-2022 08:18-0400 Blood Pressure Location [facility] 01-26-2022 08:18-0400 Diastolic blood pressure 75 mm[Hg] [facility] 01-26-2022 08:18-0400 Heart rate 56 /min [facility]ue [facility] 01-26-2022 08:18-0400 Systolic blood pressure 128 mm[Hg] Dina Lue [facility] [employer] Encounters Encounter Date Encounter Type Care Provider Facility Start: 11-26-2024 End: 11-26-2024 Bamboo flowskristie Singh MD Work Phone: [facility] Start: 11-26-2024 End: 11-26-2024 Bamboo Firefly Mobilekristie Singh MD Work Phone: [facility] Start: 11-26-2024 End: 11-26-2024 Office outpatient visit 25 minutes Bayron Singh MD Work Phone: [facility] Comment on above: Essential hypertensi on (CMS/HCC) (Primary Dx); Abnormal liver function; GERD without esophagitis; History of breast cancer; Bilateral edema of lower extremity; Malignant neoplasm of urinary bladder, unspecified site (CMS/HCC); Class 3 severe obesity due to excess calories with serious comorbidity and body mass index (BMI) of 45.0 to 49.9 in adult (CMS/HCC) Start: 11-26-2024 End: 11-26-2024 ambulatory BAYRON SINGH Not Available Start: 11-20-2024 End: 11-20-2024 Clinisync Result Encounter Generic External Data Provider [facility] External Department Unsolicited Start: 11-20-2024 End: 11-20-2024 Clinisync Result Encounter Generic External Data Provider [facility] External Department Unsolicited Start: 10-16-2024 End: 10-16-2024 ambulatory [facility] Start: 10-11-2024 End: 10-11-2024 Refill Bayron Singh MD Work Phone: [facility] Comment on above: Primary insomnia Start: 10-03-2024 End: 10-03-2024 Refill Bayron Singh MD Work Phone: [facility] Comment on above: Primary insomnia (Pr imary Dx) Start: 08-28-2024 End: 08-28-2024 Patient encounter procedure Myrna Cordova DO Work Phone: [facility] Comment on above: Screen for colon can cer (Primary Dx); Personal history of colon polyps, unspecified Start: 08-28-2024 End: 08-28-2024 ambulatory MYRNA CORDOVA Not Available Start: 08-12-2024 End: 08-12-2024 Clinisync Result Encounter Generic External Data Provider [facility] External Department Unsolicited Start: 08-12-2024 End: 08-12-2024 Clinisync Result Encounter Generic External Data Provider [facility] External Department Unsolicited Start: 08-12-2024 End: 08-12-[address] [facility] Start: 07-10-2024 End: 07-10-2024 ambulatory [facility] Start: 07-03-2024 End: 07-03-2024 ambulatory Jeff Booth Facility:[facility] Start: 07-03-2024 End: 07-03-2024 Patient encounter procedure Jeff Booth [facility] Start: 05-21-2024 Patient encounter procedure Generic Provider [facility] Start: 05-21-2024 End: 05-21-2024 ambulatory BAYRON SINGH Not Available Start: 04-10-2024 End: 04-10-2024 ambulatory [facility] Start: 03-19-2024 End: 03-19-2024 [facility] Start: 02-14-2024 End: 02-14-2024 ambulatory MD Bayron Singh Work Phone: [facility] Work Phone: Start: 02-14-2024 End: 02-14-2024 Departed Referred MD Bayron Singh Work Phone: [facility] Start: 02-13-2024 End: 02-13-2024 ambulatory Jeff Cordova Facility:[facility] Start: 02-09-2024 End: 02-09-2024 ambulatory [facility] Start: 02-09-2024 End: 02-09-2024 Encounter for preprocedural cardiovascular examination [facility] Start: 01-24-2024 End: 01-24-2024 ambulatory MYRNA CORDOVA Not Available Start: 01-10-2024 ambulatory [facility] Start: 01-02-2024 End: 01-02-2024 ambulatory [facility] Start: 04-26-2023 End: 04-26-2023 Patient encounter procedure Jeff Emmy [facility] Start: 03-08-2023 Encounter for genera l adult medical examination without abnormal findings DR BAYRON SINGH [facility] Start: 03-06-2023 End: 03-07-[address] BAYRON SINGH Facility: Start: 03-02-2023 End: 03-03-[address] BAYRON SINGH Facility:[facility] Start: 03-02-2023 End: 03-03-2023 Encounter for general adult medical examination without abnormal findings DR BAYRON SINGH Facility:H1 Start: 01-04-2023 End: 01-04-2023 Patient encounter procedure Dina Cobb [facility] Start: 12-28-2022 End: 12-28-2022 ambulatory DINA COBB . Facility:[facility]1 Start: 12-25-2022 Encounter for preprocedural cardiovascular examination DINA COBB . [facility] Start: 12-21-2022 End: 12-22-2022 ambulatory DINA COBB . Facility:[facility]1 Start: 12-21-2022 End: 12-22-2022 Encounter for preprocedural cardiovascular examination DINA COBB . Facility:[facility] Start: 12-14-2022 End: 12-14-2022 Lab Drop off Blanca Fitzpatrick [facility] Start: 12-14-2022 End: 12-14-2022 Patient encounter procedure Dina Cobb [facility] Start: 12-07-2022 End: 12-07-2022 ambulatory DINA COBB . Facility:[facility]1 Start: 11-23-2022 End: 11-24-[address] BAYRON SINGH Facility:[facility] Start: 11-05-2022 End: 11-05-[address] BAYRON SINGH Facility:[facility] Start: 10-26-2022 End: 10-26-2022 Patient encounter procedure AI REDMOND [facility] Start: 10-19-2022 End: 10-19-2022 Patient encounter procedure Dina Cobb [facility] Start: 10-12-2022 End: 10-12-2022 Patient encounter procedure Dina M. Lue [facility] Start: 09-02-2022 End: 09-03-[address] MICAELA DE . Facility:[facility] Start: 08-10-2022 End: 08-10-2022 ambulatory DINA M LUE . Facility:[facility] Start: 07-22-2022 End: 07-23-2022 ambulatory DINA M LUE . Facility:[facility]1 Start: 07-06-2022 End: 07-06-2022 Patient encounter procedure Dina M. Lue [facility] Start: 07-01-2022 End: 07-02-2022 ambulatory DINA M LUE . Facility:[facility] Start: 06-29-2022 End: 06-29-2022 Patient encounter procedure Dina M. Lue [facility] Start: 06-22-2022 End: 06-22-2022 Patient encounter procedure Dina M. Lue [facility] Start: 05-26-2022 End: 05-27-[address] BAYRON SINGH Facility:[facility]1 Start: 05-18-2022 End: 05-18-2022 Patient encounter procedure Dina M. Lue [facility] Start: 05-11-2022 End: 05-11-2022 ambulatory DINA M LUE . Facility:[facility]1 Start: 05-09-2022 Encounter for preprocedural laboratory examination DINA COBB . [facility] Start: 05-04-2022 End: 05-05-2022 ambulatory DINA LOZADAJavon . Facility:[facility]1 Start: 05-04-2022 End: 05-05-2022 Encounter for preprocedural laboratory examination DINA COBB . Facility:[facility] Start: 04-27-2022 End: 04-27-2022 ambulatory DINA COBB . Facility:[facility] Start: 04-11-2022 End: 04-12-[address] BAYRON SINGH Facility:[facility] Start: 03-28-2022 End: 03-31-[address] BAYRON SINGH Facility:[facility] Start: 03-25-2022 End: 03-25-2022 Lab Drop off Loco MARRERO [facility] Start: 03-25-2022 End: 03-25-2022 Patient encounter procedure Loco MARRERO [facility] Start: 03-02-2022 End: 03-02-2022 Patient encounter procedure AI REDMOND [facility] Start: 02-09-2022 End: 02-09-2022 Patient encounter procedure Dina Cobb [facility] Start: 02-02-2022 End: 02-02-2022 Patient encounter procedure Dina Lozadae [facility] Start: 01-26-2022 End: 01-26-2022 Lab Drop off Dina Lozadae [facility] Start: 01-26-2022 End: 01-26-2022 Patient encounter procedure Dina Cobb [facility] Start: 06-11-2020 End: 06-12-2020 Patient encounter procedure PROVIDER UNKNOWN Facility:[facility] Procedures Date Procedure Procedure Detail Performing Clinician Start: 11-20-2024 ALL CBC WITH AUTO DIFF Generic External Data Provider Start: 09-17-2024 Colonoscopy Bayron regalado MD Work Phone: Start: 08-12-2024 ALL PRO BNP Generic Ex ternal Data Provider Start: 03-19-2024 Colonoscopy Generic Pr ovider Start: 03-13-2023 Cystoscopy and biops y of bladder Jeff Booth Comment on above: BLUE LIGHT CYSTOSCOP Y Start: 12-28-2022 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 Dina Lozadae Comment on above: random bladder biops ies, BL ureteral washing Start: 12-07-2022 Cystoscopy Dina Cobb Start: 12-22-2021 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 Dina Lozadae Start: 07-26-2021 Transurethral resect ion of bladder neoplasm Dina Lozadae Start: 07-14-2021 Cystoscope, device ( physical object) Dina Lozadae Bilateral replacemen t of knee joints Dina Lue Breast surgery (qual ifier value) Dina Lue Cholecystectomy Dina Lue H/O: hysterectomy Dina Lue Tonsillectomy Dina Lue Plan of Treatment Date Care Activity Detail Author Start: 09-17-2034 Screening for malign ant neoplasm of colon [facility] Start: 03-19-2034 Screening for malign ant neoplasm of colon [facility] Start: 01-07-2027 Screening for malign ant neoplasm of colon FIT-DNA [facility] Start: 05-27-2025 End: 05-27-2025 Patient encounter procedure 05/27/2025 11:00 AM EDT Office Visit [facility] [address] [place] [phone] Bayron Singh MD [address] [place] [phone] [facility] Start: 11-26-2024 End: 11-26-2025 US Abdomen limited US RUQ Imaging Routine Abnormal liver function Expected: 11/26/2024, Expires: 11/26/2025 [facility] Work Phone: Comment on above: Expected: 11/26/2024 , Expires: 11/26/2025 Start: 11-26-2024 End: 11-26-2024 Patient encounter procedure [facility] Comment on above: Arrived Start: 11-21-2024 End: 11-21-2024 Patient encounter procedure 11/21/2024 11:00 AM EST Office Visit [facility] [address] [place] [phone] Bayron Singh MD [address] [place] [phone] [facility] Start: 11-05-2024 End: 11-05-2024 Patient encounter procedure 11/05/2024 11:00 AM EST [facility] [address] [place] [address] Tess Hernandez MD [address] [place] [address] [facility] Start: 06-30-2024 Influenza vaccination Influenza Vacc ine (#1) [facility] Start: 12-17-2022 Pneumococcal Vaccine : 65+ Years (2 of 2 - PCV) Pneumococcal Vaccine: 65+ Years (2 of 2 - PCV) [facility] Start: 1960 Screening for malign ant neoplasm of colon [facility] Immunizations Immunization Date Immunization Notes Care Provider Machelle douglas 10-26-2022 bacillus calmette-gu nestor vaccine AI REDMOND [facility] 10-19-2022 bacillus calmette-gu nestor vaccine Dina Lue [facility] 10-12-2022 bacillus calmette-gu nestor vaccine Dina Lue [facility] 09-02-2022 SARS-CoV-2 (COVID-19 ) [id number] vaccine Dnia Lue [facility] 08-04-2022 influenza virus vacc ine, unspecified formulation Dina Lue [facility] 07-26-2022 bacillus calmette-gu nestor vaccine Dina Lue [facility] 07-06-2022 bacillus calmette-gu nestor vaccine Dina Lue [facility] 06-29-2022 bacillus calmette-gu nestor vaccine Dina Lue [facility] 06-22-2022 bacillus calmette-gu nestor vaccine Dina Lue [facility] 03-02-2022 bacillus calmette-gu nestor vaccine AI RUY [facility] 02-23-2022 bacillus calmette-gu nestor vaccine AI REDMOND [facility] 02-16-2022 bacillus calmette-gu nestor vaccine AI REDMOND [facility] 02-09-2022 bacillus calmette-gu nestor vaccine Dina Lue [facility] 02-02-2022 bacillus calmette-gu nestor vaccine Dina Lue [facility] 01-26-2022 bacillus calmette-gu nestor vaccine Dina Lue [facility] 12-17-2021 pneumococcal polysaccharide vaccine, 23 valent Dina Lue [facility] 10-27-2021 bacillus calmette-gu nestor vaccine Dina Lue [facility] 10-19-2021 bacillus calmette-gu nestor vaccine Dina Lue [facility] 10-13-2021 bacillus calmette-gu nestor vaccine Dina Lue [facility] 10-06-2021 bacillus calmette-gu nestor vaccine Dina Lue [facility] 09-29-2021 bacillus calmette-gu nestor vaccine Dina Lue [facility] 09-22-2021 bacillus calmette-gu nestor vaccine Dina Lue [facility] 08-20-2021 SARS-CoV-2 (COVID-19 ) mRNA-1273 vaccine Dina Lue [facility] 08-19-2021 influenza virus vacc ine, unspecified formulation AIAMY REDMOND [facility] 07-30-2021 influenza virus vacc ine, unspecified formulation Dina Lue [facility] 11-26-2020 SARS-CoV-2 (COVID-19 ) mRNA-1273 vaccine Dina Lue [facility] 10-28-2020 SARS-CoV-2 (COVID-19 ) mRNA-1273 vaccine Dina Lue [facility] 07-18-2018 influenza virus vacc ine, unspecified formulation Dina Lue [facility] 07-30-2015 pneumococcal polysaccharide vaccine, 23 valent Dina Lue [facility] Payers Date Payer Category Payer Medicare MEDICARE [id number] 2024 Private Health Insurance [id number] 2024 Medicare [id number] 2024 Unknown [id number] 2024 Self-pay [id number] 2022 [facility] [id number] 2019 Unknown [id number] 1959 Self-pay [id number] 1959 Unknown [id number] 1958 Unknown [id number] 2.16.840.1.914884.3.579.2. 647 1958 Unknown [id number] 2.16.840.1.461004.3.579.2. 593 1958 Unknown [id number] 2.16.840.1.763082.3.579.2. 593 1958 Unknown [id number] 2.16.840.1.742287.3.579.2. 593 1958 Unknown [id number] 2.16.840.1.391151.3.579.2. 593 1958 Unknown [id number] 2.16.840.1.467977.3.579.2. 593 1958 Unknown [id number] 2.16.840.1.298835.3.579.2. 593 1958 Unknown [id number] 2.16.840.1.064845.3.579.2. 593 1958 Unknown [id number] 2.16.840.1.446758.3.579.2. 593 1958 Unknown [id number] 2.16.840.1.454360.3.579.2. 593 1958 Unknown [id number] 2.16.840.1.258852.3.579.2. 593 1958 Unknown [id number] 2.16.840.1.084899.3.579.2. 593 1958 Unknown [id number] 2.16.840.1.200324.3.579.2. 593 1958 Unknown [id number] 2.16.840.1.925367.3.579.2. 593 1958 Unknown [id number] 2.16840.1.445893.3.579.2. 593 1958 Unknown [id number] 2.16.840.1.511187.3.579.2. 593 1958 Unknown [id number] 2.16.840.1.970306.3.579.2. 593 1958 Unknown [id number] 2.16.840.1.693994.3.579.2. 727 1958 Unknown [id number] 2.16.840.1.305907.3.579.2. 1259 1958 Unknown [id number] 2.16.840.1.717243.3.579.2. 1259 1958 Unknown [id number] 2.16.840.1.105595.3.579.2. 1259 1958 Unknown [id number] 2.16.840.1.377641.3.579.2. 1259 Private Health Insurance [id number] Unknown [id number] 2.16.840.1.782817.3.579.2. 593 Unknown [id number] 2.16.840.1.251384.3.579.2. 531 Unknown [id number] Social History Date Type Detail Facility Start: 01-26-2022 End: 08-28-2024 Tobacco smoking status Ex-smoker (finding) [facility] Tobacco smoking status Never [facility] Start: 11-08-2023 End: 11-25-2024 Sex Assigned At Female [facility] Start: 1960 Sex Assigned At Female [facility] End: 03-18-1979 History of tobacco use Current smoker [facility] End: 03-18-1979 History of tobacco use Cigarette Smoker [facility] Start: 08-23-2023 End: 08-28-2024 Tobacco use and exposure Smokeless tobacco non-user [facility] Start: 05-21-2024 End: 11-26-2024 Alcoholic beverage intake [facility] (finding[facility] Start: 11-08-2023 End: 11-25-2024 History of Social function [facility] Within the last year , have you been afraid of your partner or ex-partner? No [facility] Are you now , , , , never or living with a partner? Living with partner [facility] How often to you hav e a drink containing alcohol? 2-4 times a month [facility] How many standard dr inks containing alcohol do you have on a typical day? 1 or 2 [facility] How often do you hav e 6 or more drinks on 1 occasion? Never [facility] Do you feel stress - tense, restless, nervous, or anxious, or unable to sleep at night because your mind is troubled all the time - these days [OSQ] Only a little [facility] (I/We) worried wheth er (my/our) food would run out before (I/we) got money to buy more. Never true [facility] Start: 08-23-2023 Alcohol Comment caffeine intak e: 1-2 cups per day of soda [facility] Start: 1960 Sex assigned at Not on file [facility] Do you belong to any clubs or organizations such as latter-day groups, unions, fraternal or athletic groups, or school groups? Yes [facility] Are you now , , , , never or living with a partner? [facility] How often to you hav e a drink containing alcohol? 2-3 time sa week [facility] How hard is it for y ou to pay for the very basics like food, housing, medical care, and heating Not very hard [facility] Functional Status Date Assessment Result Facility 01-04-2023 Functional Status N/A [facility] 10-26-2022 Functional Status N/A [facility] 10-19-2022 Functional Status N/A [facility] 10-12-2022 Functional Status N/A [facility] 07-06-2022 Functional Status N/A [facility] 06-22-2022 Functional Status N/A [facility] 05-18-2022 Functional Status N/A [facility] Clinical Notes 01-26-2022 to 11-26-2024 Bayron Singh MD - 11/26/2024 11:24 AM Mel Singh MD - 11/26/2024 11:24 AM Mel Singh MD - 11/26/2024 11:23 AM Mel Singh MD - 11/26/2024 11:23 AM EST Note Date & Type Note Facility 11-26-2024 History of Present illness Narrative Associated Problem(s): History of breast cancer Follow with oncology. Associated Problem(s): GERD without esophagitis Symptoms controlled with protonix and continue. Associated Problem(s): Essential hypertension (CMS/HCC) BP controlled and monitor PRN. Associated Problem(s): Class 3 severe obesity due to excess calories with serious comorbidity and body mass index (BMI) of 45.0 to 49.9 in adult (CMS/HCC) Discussed proper diet and regular aerobic exercise. Recommend Weight Watchers and need to limit calories and smaller portions. Need to increase activity and regular aerobic exercise several days a week for 30 minutes at a time. Associated Problem(s): Bladder cancer (CMS/HCC) Cancer stable and follow up with urology. Associated Problem(s): Bilateral edema of lower extremity Edema controlled with medication and use PRN. Elevate legs PRN. Associated Problem(s): Abnormal liver function Recent LFTs elevated and check US liver. Images from the original note were not included. Subjective Patient ID: Daniella Bejarano is a 64 y.o. female who presents for Follow-up (6m), Fatigue (Tired all the time), and Shortness of Breath. Follow up HTN, edema, GERD, bladder cancer, and weight. Patient stable today. Checking BP PRN and typically controlled. BP normal today. Taking medication daily and tolerating without side effects. Edema controlled with medication. Mild swelling at end of day and if on feet a lot. Edema improved in am and with elevation. GERD controlled with protonix. Denies epigastric pain or burning and not waking up with symptoms. Bladder cancer stable. Following with urology and no cancer on last scope. Will repeat cystoscopy in December. Weight up 5 pounds in past year. Upset not able to lose. Tries to stay active and rides bike several days a week. Tries to watch diet and eat healthy. Increased fruits and vegetables. Smaller portions and limits snacking. Tries to limit total daily calories. Fatigue Associated symptoms include fatigue. Pertinent negatives include no abdominal pain, chest pain, coughing, nausea or vomiting. Shortness of Breath Pertinent negatives include no abdominal pain, chest pain, vomiting or wheezing. Review of Systems Constitutional: Positive for fatigue. Respiratory: Positive for shortness of breath. Negative for cough and wheezing. Cardiovascular: Negative for chest pain and palpitations. Gastrointestinal: Negative for abdominal pain, diarrhea, nausea and vomiting. Genitourinary: Negative for dysuria. Objective Physical Exam Constitutional: General: She is not in acute distress. Appearance: Normal appearance. HENT: Head: Normocephalic. Right Ear: Tympanic membrane normal. Left Ear: Tympanic membrane normal. Eyes: Extraocular Movements: Extraocular movements intact. Pupils: Pupils are equal, round, and reactive to light. Cardiovascular: Rate and Rhythm: Normal rate and regular rhythm. Heart sounds: No murmur heard. No friction rub. No gallop. Pulmonary: Effort: Pulmonary effort is normal. Breath sounds: Normal breath sounds. No wheezing, rhonchi or rales. Abdominal: General: Bowel sounds are normal. There is no distension. Palpations: Abdomen is soft. Tenderness: There is no abdominal tenderness. There is no guarding or rebound. Musculoskeletal: Cervical back: Neck supple. Right lower leg: No edema. Left lower leg: No edema. Neurological: Mental Status: She is alert. Assessment/Plan Problem List Items Addressed This Visit Bladder cancer (CMS/HCC) Cancer stable and follow up with urology. Essential hypertension (CMS/HCC) - Primary BP controlled and monitor PRN. History of breast cancer Follow with oncology. Class 3 severe obesity due to excess calories with serious comorbidity and body mass index (BMI) of 45.0 to 49.9 in adult (CMS/HCC) Discussed proper diet and regular aerobic exercise. Recommend Weight Watchers and need to limit calories and smaller portions. Need to increase activity and regular aerobic exercise several days a week for 30 minutes at a time. Bilateral edema of lower extremity Edema controlled with medication and use PRN. Elevate legs PRN. Relevant Medications furosemide (Lasix) 40 MG tablet GERD without esophagitis Symptoms controlled with protonix and continue. Abnormal liver function Recent LFTs elevated and check US liver. Relevant Orders US RUQ documented in this encounter [facility] 10-16-2024 Note Satisfactory for michele luation. Examination of the ThinPrep slide reveals benign urothelial cells, squamous cells and inflammation. [facility] Comment on above: Order Comment: Via c ysto bladder wash Performed By: #### L [id number] #### [facility] [address] [place] [address] 10-16-2024 Note Patient ID: Daniella Bejarano is a 64 y.o. female. Cystoscopy Date/Time: 10/16/2024 3:22 PM Performed by: Lisa Zelaya MD Authorized [...] the procedure room for the entire procedure. [facility] 10-16-2024 Note I PATIENT: Daniella Bejarano DATE OF : 1960 DATE OF VISIT: 10/16/24 Urology Clinic H&P LISA ZELAYA M.D., F.A.C.S. [...] recurrent bladder tumor. Pathology revealed high-grade noninvasive farmer general, muscularis propria present and uninvolved. - 01/26/2022: [...] diagnosis bilaterally. Therefore she was referred [facility]. Ms. Bejarano underwent white [...] of malignancy, th (more content not included)... [facility] 08-28-2024 History of Present illness Narrative General Surgery H&P Daniella Bejarano 1960 Daniella Bejarano is a 64 y.o. female presents for Colonoscopy (Pt presents today for a colonoscopy consult. Last colonoscopy was 03/19 at [facility] and she had an EMR at 2 sites in her ascending colon. Her for follow up colonoscopy by the end of year to make sure she was healing well and no issues at the EMR site. She denies any concerns. Denies abdominal pain. Denies melena or hematochezia. Denies changes in bowel habits. Denies changes in caliber of stools. Denies hx of unplanned weight loss. Denies fevers, chills, or sweats. Denies nausea or vomiting. Last colonoscopy was 03/19/2024. SUBJECTIVE: MEDICATIONS: ALLERGIES Current Outpatient Medications Medication Instructions aspirin 81 MG EC tablet 1 tablet, Daily azelastine (Optivar) 0.05 % ophthalmic solution 1 drop, 2 times daily bisacodyl (DULCOLAX) 5 mg, Oral, Once, Do not crush, chew, or split. Take as detailed on clinic hand out for colonoscopy prep cyclobenzaprine (FLEXERIL) 10 mg, 3 times daily PRN furosemide (LASIX) 20 mg, Oral, Daily PRN nabumetone (RELAFEN) 750 mg, Daily olmesartan (BENICAR) 40 mg, Oral, Daily pantoprazole (PROTONIX) 40 mg, Oral, 2 times daily polyethylene glycol (PEG) 3350 (GLYCOLAX) 238 g, Oral, Once, Take as detailed from clinic hand out for colonoscopy prep polyethylene glycol (PEG) 3350 (GLYCOLAX) 238 g, Oral, Once, Take as detailed from clinic hand out for colonoscopy prep potassium chloride CR (Klor-Con) 10 MEQ ER tablet 10 mEq, Oral, Daily, Do not crush, chew, or split. temazepam (RESTORIL) 30 mg, Nightly triamcinolone (Kenalog) 0.5 % cream 1 Application Allergies Allergen Reactions Oxycodone-Acetaminophen Headache and Hives Other Reaction(s): hives PAST MEDICAL HISTORY: SOCIAL HISTORY SURGICAL HISTORY: Past Medical History: Diagnosis Date Abnormal urinary stream 05/05/2023 Acid reflux Arthritis 04/12/2017 Bladder cancer ([facility]) Cancer of breast, intraductal 06/13/2017 cancer, right breast Chronic venous insufficiency Degenerative joint disease of knee Edema of both lower legs Encounter for screening for osteoporosis 06/13/2017 Equinus contracture of right ankle Former smoker 05/05/2023 Gastroesophageal reflux disease Hard to intubate 2022 Hip pain, left History of UTI 05/05/2023 HTN (hypertension) ([facility]) Insomnia, persistent Obesity 06/05/2020 Obstructive sleep apnea Overactive bladder 05/05/2023 Pes planovalgus, acquired, left PONV (postoperative nausea and vomiting) 2009 Do not use gas Posterior tibial tendon dysfunction, right Right knee pain 08/22/2023 Seasonal allergies Status post left knee replacement 08/22/2023 Urinary incontinence in female Valgus foot deformity, acquired, right Varus foot deformity, acquired, right Social History Tobacco Use Smoking status: Former Current packs/day: 0.00 Average packs/day: 1 pack/day for 15.0 years (15.0 ttl pk-yrs) Types: Cigarettes Quit date: 03/18/1979 Years since quittin.4 Smokeless tobacco: Never Substance Use Topics Alcohol use: Not Currently Alcohol/week: 30.0 standard drinks of alcohol Types: 30 Glasses of wine per week Comment: caffeine intake: 1-2 cups per day of soda Drug use: Never Past Surgical History: Procedure Laterality Date ADENOIDECTOMY BREAST LUMPECTOMY Right 2010 benign CHOLECYSTECTOMY 2007 2011 HEART CATH HYSTERECTOMY 1995 KNEE SURGERY Right arthroscopy- 2007 MASTECTOMY Bilateral right- 03/2017 OTHER SURGICAL HISTORY 09/05/2023 r/o buccal lesion, Timmis SINUS SURGERY 2009 TONSILLECTOMY 1968 TOTAL ABDOMINAL HYSTERECTOMY TOTAL KNEE ARTHROPLASTY Bilateral right- 11/2013, left- 01/31/19 DR RUANO VARICOSE VEIN SURGERY Right 2007 RIGHT LEG VEINS STRIPPED Family History Problem Relation Name Age of Onset Hypertension Mother No Heart failure Mother No Stroke Mother No Hearing loss Mother No Anemia Father Heart failure Sister Cancer Brother No Arthritis Brother No Hearing loss Brother No Cancer Brother German Melanoma Neg Hx Breast cancer Neg Hx Ovarian cancer Neg Hx Colon cancer Neg Hx Allergies Allergen Reactions Oxycodone-Acetaminophen Headache and Hives Other Reaction(s): hives Past Surgical History: Procedure Laterality Date ADENOIDECTOMY BREAST LUMPECTOMY Right 2010 benign CHOLECYSTECTOMY 2007 2011 HEART CATH HYSTERECTOMY 1995 KNEE SURGERY Right arthroscopy- 2007 MASTECTOMY Bilateral right- 03/2017 OTHER SURGICAL HISTORY 09/05/2023 r/o buccal lesion, Timmis SINUS SURGERY 2009 TONSILLECTOMY 1968 TOTAL ABDOMINAL HYSTERECTOMY TOTAL KNEE ARTHROPLASTY Bilateral right- 11/2013, left- 01/31/19 DR RUANO VARICOSE VEIN SURGERY Right 2007 RIGHT LEG VEINS STRIPPED Tobacco Use: Medium Risk (08/12/2024) Received from [facility] Patient History Smoking Tobacco Use: Former Smokeless Tobacco Use: Never Passive Exposure: Never Alcohol Use: Not At Risk (11/08/2023) AUDIT-C Frequency of Alcohol Consumption: 2-4 times a month Average Number of Drinks: 1 or 2 Frequency of Binge Drinking: Never Depression: Not at risk (11/15/2023) PHQ-2 PHQ-2 Score: 0 Physical Activity: Insufficiently Active (11/08/2023) Exercise Vital Sign Days of Exercise per Week: 5 days Minutes of Exercise per Session: 10 min REVIEW OF SYMPTOMS: Review of Systems All other systems reviewed and are negative. 10 systems were reviewed. Positives noted above. Remainder are negative per CMS guidelines. OBJECTIVE: Visit Vitals Ht 5' 4.5 Wt 273 lb BMI 46.14 kg/m Smoking Status Former BSA 2.38 m Physical Exam Vitals reviewed. General: AAOx3, NAD Head: atraumatic normocephalic Neck: trachea midline. No masses or lymphadenopathy Heart: Regular rate and rhythm Lungs: equal chest rise and fall, non labored breathing Abdomen: soft, nontender, and non distended Ext: motor 5/5 all extremities with no gross deformities Psych: alert and oriented, behavior appropriate ASSESSMENT AND PLAN: Assessment/Plan Diagnoses and all orders for this visit: Screen for colon cancer - bisacodyl (Dulcolax) 5 MG EC tablet; Take 1 tablet (5 mg) by mouth 1 time for 1 dose Do not crush, chew, or split. Take as detailed on clinic hand out for colonoscopy prep - polyethylene glycol, PEG, 3350 (Glycolax) 17 GM/SCOOP powder; Take 238 g by mouth 1 (one) time for 1 dose Take as detailed from clinic hand out for colonoscopy prep Personal history of colon polyps, unspecified - polyethylene glycol, PEG, 3350 (Glycolax) 17 GM/SCOOP powder; Take 238 g by mouth 1 (one) time for 1 dose Take as detailed from clinic hand out for colonoscopy prep - bisacodyl (Dulcolax) 5 MG EC tablet; Take 1 tablet (5 mg) by mouth 1 time for 1 dose Do not crush, chew, or split. Take as detailed on clinic hand out for colonoscopy prep - polyethylene glycol, PEG, 3350 (Glycolax) 17 GM/SCOOP powder; Take 238 g by mouth 1 (one) time for 1 dose Take as detailed from clinic hand out for colonoscopy prep Plan: Patient is here for surveillance colonoscopy after EMR procedure in February of this year. Colonoscopy can be scheduled electively. Patient informed of the risks of procedure which include but not limited to bleeding, perforation, and risks of anesthesia. Patient understood risks and signed informed consent for the procedure under monitored anesthesia care. Handout for bowel prep provided in clinic. Patient was informed of the need for a ride home from the hospital and the need for someone to be with them for the following 24 hrs post procedure. Thank you, Tran Cordova, DO documented in this encounter [facility] 08-12-2024 Note [place] Cardiology - [facility] Subjective Daniella Bejarano is a 64 y.o. year old female patient being seen for hypertension and sinus tachycardia. Jeannette Daniels CNP started her on metoprolol at last apt in January 2024. She said this didn't help her so she stopped taking it. She had routine labs w/ lipid panel this past April. C/o SOB with any kind of exertion. Denies chest pain and palpitations. Does feel her heart pounding, but not irregular . Patient Active Problem List Diagnosis Malignant neoplasm of posterior wall of urinary bladder (CMS/HCC) Abnormal mammogram Abnormal urinary stream Cancer of breast, intraductal Cardiovascular stress test abnormal Dyspnea Pre-operative cardiovascular examination Essential hypertension Former smoker History of UTI Infection due to Enterococcus Microscopic hematuria Mixed incontinence Obesity (BMI 35.0-39.9 without comorbidity) Arthritis Osteoarthritis Overactive bladder Intermittent palpitations Primary malignant neoplasm (CMS/HCC) Urinary tract infection Vaginal atrophy Aneurysm of coronary vessels Mixed dyslipidemia Bilateral edema of lower extremity Chronic neck pain Contusion of right knee Equinus deformity of right foot Degenerative arthritis of metacarpophalangeal joint of right thumb GERD without esophagitis History of tobacco use 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 (CMS/HCC) Morbid obesity (CMS/HCC) Obstructive sleep apnea syndrome Oral lesion Primary osteoarthritis of left hip Primary osteoarthritis of left knee HX: breast cancer Sinus tachycardia Prediabetes Family History Problem Relation Name Age of Onset Hypertension Mother Mother Atrial fibrillation Mother Mother Other (pacemaker in situ) Sister Coronary artery disease Brother Hypertension Brother Social History Tobacco Use Smoking status: Former Packs/day: 1.00 Years: 40.00 Additional pack years: 0.00 Total pack years: 40.00 Types: Cigarettes Quit date: 10/30/2016 Years since quittin.7 Passive exposure: Never Smokeless tobacco: Never Substance Use Topics Alcohol use: Yes Comment: socially Drug use: Never HPI She is seen in follow-up. 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 On prior event monitor she was found to have an episode of SVT and PACs and PVCs. She was started on beta-neal therapy. She did not feel better with it and stopped it. Today she reports that she has no chest pain. She does have lower extremity edema and shortness of breath on exertion. She takes furosemide 20 mg daily. She has occasional palpitations that she feels only with exertion. She reports that she tries to keep physically active all the time and uses a stationary bike. No chest pain with exertion. Review of Systems Cardiovascular: Positive for dyspnea on exertion, leg swelling and palpitations ( pounding with exertion). Respiratory: Positive for shortness of breath. Musculoskeletal: Positive for arthritis, back pain, joint pain and myalgias. All other systems reviewed and are negative. Objective Visit Vitals BP 110/76 (BP Location: Left arm, Patient Position: Sitting) Pulse 61 Ht 1.626 m (5' 4 ) Wt 124 kg (274 lb) SpO2 97% BMI 47.03 kg/m??? OB Status Postmenopausal Smoking Status Former BSA 2.37 m??? Physical Exam Constitutional: Appearance: She is well-developed. She is obese. She is not ill-appearing. HENT: Head: Normocephalic and atraumatic. Nose: Nose normal. Eyes: General: No scleral icterus. Pupils: Pupils are equal, round, and reactive to light. Neck: Thyroid: No thyromegaly. Vascular: No JVD. Cardiovascular: Rate and Rhythm: Normal rate and regular rhythm. Pulses: Radial pulses are 2+ on the right side and 2+ on the left side. Heart sounds: Normal heart sounds. No murmur heard. No friction rub. No gallop. Pulmonary: Effort: Pulmonary effort is normal. No respiratory distress. Breath sounds: Normal breath sounds. No wheezing or rales. Chest: Chest wall: No tenderness. Abdominal: General: Bowel sounds are normal. There is no distension. Palpations: Abdomen is soft. Tenderness: There is no abdominal tenderness. Musculoskeletal: General: No swelling. Cervical back: Neck supple. Right lower le+ Pitting Edema present. Left lower le+ Pitting Edema present. Skin: General: Skin is warm and dry. Neurological: General: No focal deficit present. Mental Status: She is alert and oriented to person, place, and time. Psychiatric: Mood and Affect: Mood normal. Behavior: Behavior is cooperative. Judgment: Judgment normal. Allergies Allergies Allergen Reactions Oxycodone-Acetaminophen Hives and Headache Medications Cu (more content not included)... [facility] 07-10-2024 Note A. Unsatisfactory fo r evaluation. Scant cellularity due to obscuring lubricant. Examination of the the ThinPrep slide reveals primarily lubricant with rare urothelial cells. [facility] Comment on above: Order Comment: Via carmen reyes Performed By: #### L [id number] #### [facility] ([facility]) [address] [place] [address] 07-10-2024 Note I PATIENT: Daniella Bejarano DATE OF : 1960 DATE OF VISIT: 07/10/24 Urology Clinic H&P LISA ZELAYA M.D., F.A.C.S. [...] recurrent bladder tumor. Pathology revealed high-grade noninvasive farmer general, muscularis propria present and uninvolved. - 01/26/2022: [...] diagnosis bilaterally. Therefore she was referred [place] [facility] [place]. Ms. Bejarano underwent white [...] of malignancy, th (more content not included)... [facility] 07-10-2024 Note Patient ID: Daniella Bejarano is [...] the procedure room for the entire procedure. [facility] 07-03-2024 Note Oncology Progress No te Chief Complaint Hx Breast Ca; no questions or concerns. Oncological History/ROS/PE/Assessment and Plan 64 year old female with limited pmhx. 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 Dr. Ward performed R [...] She referred to Dr. Lisa Zelaya at [facility] who repeated the biopsy and [...] working PRN. she finished intravescle therapy in [place] and follows with them q3mos. She see Dr. Santiago in [place]. cancer free since december this year. She [...] Normal range of motion. Integumentary: Warm, Dry, [place]. Neurologic: Alert, Oriented, Normal sensory. Psychiatric: Cooperative, [...] gem and taxotere through Dr. Santiago in [place]. Follow-up No qualifying data available f/u prn. [...] information available Labs No Qualifying Data Available [facility] 04-10-2024 Note A. Satisfactory for evaluation. Examination of the ThinPrep slide reveals a hypocellular specimen containing scattered squamous cells and rare urothelial cells. [facility] Comment on above: Order Comment: Via carmen reyes Performed By: #### L [id number] ####[facility] ([facility])[address] [place] [address] 04-10-2024 Note Patient ID: Daniella Bejarano is [...] the procedure room for the entire procedure. [facility] 04-10-2024 Note I PATIENT: Daniella Bejarano DATE [...] recurrent bladder tumor. Pathology revealed high-grade noninvasive farmer general, muscularis propria present and uninvolved. - 01/26/2022: [...] diagnosis bilaterally. Therefore [place]. Ms. Bejarano underwent white [...] of malignancy, th (more content not included)... [facility] 04-03-2024 Note 04-03-24@ 0715 [place] copy with EMR procedure note along with pathology results faxed to referring office of Dr. Myrna Cordova @[phone]. [facility] 03-19-2024 Note Patient: Daniella stevens Procedure Summary Date: 03/19/24 Room / Location: [facility] Endoscopy Anesthesia Start: 1143 Anesthesia Stop: 1316 [...] Hydration status: balanced No notable events documented. [facility] 03-19-2024 Note Airway Date/Time: 03/19/2024 11:51 AM Urgency: elective General Information and Staff Patient location during procedure: OR Anesthesiologist: Lázaro Lopes MD Resident/CARTON MAKER/CAA: Kurtis Regalado DO Performed: resident/CARTON MAKER/CAA Indications and Patient Condition Indications for airway [...] 1 Number of other approaches attempted: 0 [facility] 03-19-2024 Note Patient: Daniella stevens Procedure Information Date/Time: 03/19/24 1115 Scheduled providers: Jenn Vieira MD; JOAN Bateman; Lázaro Lopes MD Procedure: DIAGNOSTIC COLONOSCOPY Location: [facility] Relevant Problems Anesthesia (+) Obstructive sleep [...] Plan discussed with CAA. 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 Do not wear perfume, make-up, nail armenian, or lotions on the day of your [...] need to make any changes, please call [phone]. Notify your surgeon if you develop any illness such as a cold, cough, fever, sore throat or vomiting between now and your surgery. Thank you for entrusting us with your care. [facility] Surgical Services Team [facility] 02-09-2024 Note RCRI= 1???points Cla ss II Risk 6.0???% 30-day risk of , [place], or cardiac arrest From a cardiac perspective pt may proceed with colonoscopy, she is a low risk for a low risk procedure. She may hold Aspirin if absolutely needed. Please monitor hemodynamics carefully and prevent any major fluid shifts. This is good for 6 months [facility] 02-09-2024 Note Hypertension is well controlled Continue olmesartan, and start toprol Renal function stable [facility] 02-09-2024 Note Noted sinus tachycar apollo with occasional PACs and PVCs- will start toprol 25 mg daily for management D/W pt to call office for low b/p, fatigue, lightheadedness/dizziness. Or any concerns [facility] 02-09-2024 Note [facility]TP CARDIOLOGY PROGR ESS NOTE [...] the proximal t (more content not included)... [facility] 02-09-2024 Note Patient here for fol low [...] All other systems reviewed and are negative. [facility] 01-10-2024 Note Satisfactory for michele luation. Examination of the ThinPrep slide reveals a hypocellular specimen consisting of benign urothelial cells and squamous cells. [facility] Comment on above: Order Comment: Via c ysto Performed By: #### L AB13 #### [facility] ([place]) [place] [address] 01-10-2024 Note Patient ID: Daniella Bejarano is [...] the procedure room for the entire procedure. [facility] 01-10-2024 Note I PATIENT: Daniella Bejarano DATE [...] recurrent bladder tumor. Pathology revealed high-grade noninvasive farmer general, muscularis propria present and uninvolved. - 01/26/2022: [...] diagnosis bilaterally. Therefore she was [place]. Ms. Bejarano underwent white [...] by the time she was referred to [place] and when she had outside bladder biopsy confirming BCG unresponsive CIS performed on 12/28/2022 and given bladder biopsy I performed on 03/13/2023 revealed no evidence of malignancy, th (more content not included)... [facility] 01-02-2024 Note 2-3 day holter monit or today to assess for any arrythmias, PVC burden Check BMP and mag level today to assess electrolyte level She may benefit from beta neal dependent upon holter results [facility] 01-02-2024 Note C/O worsening SOB wi th exertion and edema, will check echocardiogram to assess cardiac function, RV function and rt sided pressures, valvular function [facility] 01-02-2024 Note stable [facility] 01-02-2024 Note Hypertension is well controlled currently 124/80 Continue olmesartan 40 mg daily. Depending upon holter monitor result she may benefit from a beta neal for frequent PVCs and palpitations [facility] 01-02-2024 Note Patient here c/o SOB , [...] All other systems reviewed and are negative. [facility] 01-02-2024 Note [facility]TP CARDIOLOGY PROGR ESS NOTE [...] 0 [DISCONTINUED] ergocalciferol (Vitamin D-2) 1.25 MG (35468 Units) capsule Take by mouth. [DISCONTINUED] oxybutynin [...] - 1.02 mg/dL 1.07 High TBH EGFR-AF KOSOVAN >=60 >60 TBH EGFR-NON AF KOSOVAN >=60 51 Low BUN CREATININE RATIO 13.1 CALCIUM 8. (more content not included)... [facility] 01-04-2023 Hospital Discharge instructions Patient Education 01/04/2023 [...] cells. Follow these instructions at home: Take upoj-qrj-wuodkga and prescription medicines only as told by [...] information [employer]: www.cancer.org National Cancer [place] (NCI): www.cancer.gov Contact a health care provider [...] 10/18/2004 Document Revised: 09/28/2018 Document Reviewed: 09/19/2017 ZAPR Patient Education 2019 [employer]. Follow Up Care 01/02/2023 12:19:37 With:Dina Cobb MD, URL, URO Address: When: Unknown [facility] 10-19-2022 Hospital Discharge instructions Patient [...] cells. Follow these instructions at home: Take teye-ffu-lhpvdnz and prescription medicines only as told by [...] information [employer]: www.cancer.org National Cancer [place] (NCI): www.cancer.gov Contact a health care provider [...] Document Reviewed: 09/19/2017 Elsevier Patient Education 2019 [employer]. [facility] 10-12-2022 Hospital Discharge instructions Patient Education [...] cells. Follow these instructions at home: Take fwpn-ksw-qjarzfe and prescription medicines only as told by [...] information [employer]: www.cancer.org National Cancer [place] (NCI): www.cancer.gov Contact a health care provider [...] 10/18/2004 Document Revised: 09/28/2018 Document Reviewed: 09/19/2017 ZAPR Patient Education 2020 [employer]. Follow Up Care 08/22/2022 12:52:59 With:Dina Cobb MD, URL, URO Address: When:1 week Comments:BCG #2 of #3 [facility] 10-05-2022 Hospital Discharge instructions Follow Up Care 10/05/2022 15:19:40 With:AI REDMOND PA-C, URL Address: [address] [address] When: Unknown [facility] 07-06-2022 Hospital Discharge instructions Patient Education [...] cells. Follow these instructions at home: Take lenl-rvl-gpssgia and prescription medicines only as told by [...] information [employer]: www.cancer.org National Cancer [place] (NCI): www.cancer.gov Contact a health care provider [...] 10/18/2004 Document Revised: 09/28/2018 Document Reviewed: 09/19/2017 ZAPR Patient Education 2020 [employer]. Follow Up Care 05/18/2022 11:12:11 With:Reza JAMES, ISAIAH Mckeon, URO Address: When: Unknown [facility] 06-29-2022 Hospital Discharge instructions Patient Education [...] cells. Follow these instructions at home: Take ahph-kyi-fidzqig and prescription medicines only as told by [...] information [employer]: www.cancer.org National Cancer [place] (NCI): www.cancer.gov Contact a health care provider [...] 10/18/2004 Document Revised: 09/28/2018 Document Reviewed: 09/19/2017 ZAPR Patient Education 2020 [employer]. Follow Up Care 05/18/2022 11:11:14 With:Reza JAMES, ISAIAH Mckeon, URO Address: When:Within 1 Week(s) Comments:BCG #3 [facility] 06-22-2022 Hospital Discharge instructions Patient Education [...] cells. Follow these instructions at home: Take ujix-vyq-zkbobzy and prescription medicines only as told by [...] information [employer]: www.cancer.org National Cancer [place] (NCI): www.cancer.gov Contact a health care provider [...] 10/18/2004 Document Revised: 09/28/2018 Document Reviewed: 09/19/2017 ZAPR Patient Education 2020 [employer]. Follow Up Care 05/18/2022 11:09:55 With:Reza JAMES, ISAIAH Mckeon, URO Address: When:1 week Comments:bcg #2 [facility] 05-18-2022 Hospital Discharge instructions Patient Education [...] cells. Follow these instructions at home: Take uzns-eim-bfhmjbu and prescription medicines only as told by [...] information [employer]: www.cancer.org National Cancer [place] (NCI): www.cancer.gov Contact a health care provider [...] 10/18/2004 Document Revised: 09/28/2018 Document Reviewed: 09/19/2017 ZAPR Patient Education [employer]. Follow Up Care 05/12/2022 12:08:46 With:Reza JAMES, ISAIAH Mckeon, URO Address: When:1 month [facility] 03-17-2022 Hospital Discharge instructions Follow Up Care 03/17/2022 16:12:48 With:Jeff Booth Address: [facility] [address] [place] [address]- [phone] Fax Business 1 When: Unknown Comments:f/u 1 year. no labs. [facility] 03-02-2022 Hospital Discharge instructions Patient Education [...] cells. Follow these instructions at home: Take nggg-vbn-dnwlreh and prescription medicines only as told by [...] information [employer]: www.cancer.org National Cancer [place] (NCI): www.cancer.gov Contact a health care provider [...] 10/18/2004 Document Revised: 09/28/2018 Document Reviewed: 09/19/2017 ZAPR Patient Education 2020 [employer]. Follow Up Care 12/29/2021 09:06:11 With:AI REDMOND PA-C, ISAIAH Address: [address] [place] [address] When: Unknown Comments:follow up after cysto with [facility] 02-09-2022 Hospital Discharge instructions Patient Education [...] cells. Follow these instructions at home: Take zzqb-kqs-sdsguhu and prescription medicines only as told by [...] information [employer]: www.cancer.org National Cancer [place] (NCI): www.cancer.gov Contact a health care provider [...] 10/18/2004 Document Revised: 09/28/2018 Document Reviewed: 09/19/2017 ZAPR Patient Education 2020 [employer] Follow Up Care 12/29/2021 09:03:01 With:Reza JAMES, ISAIAH Mckeon, URO Address: When: Unknown [facility] 02-02-2022 Hospital Discharge instructions Patient Education [...] cells. Follow these instructions at home: Take vfjx-dvz-vhfzdgw and prescription medicines only as told by [...] information [employer]: www.cancer.org National Cancer [place] (NCI): www.cancer.gov Contact a health care provider [...] 10/18/2004 Document Revised: 09/28/2018 Document Reviewed: 09/19/2017 ZAPR Patient Education 2020 [employer]. Follow Up Care 12/29/2021 09:02:14 With:Reza JAMES, ISAIAH Mckeon, URO Address: When: Unknown [facility] 01-26-2022 Hospital Discharge instructions Patient Education [...] cells. Follow these instructions at home: Take ixjz-def-nqpycgx and prescription medicines only as told by [...] information [employer]: www.cancer.org National Cancer [place] (NCI): www.cancer.gov Contact a health care provider [...] 10/18/2004 Document Revised: 09/28/2018 Document Reviewed: 09/19/2017 ZAPR Patient Education 2020 [employer]. Follow Up Care 12/29/2021 08:59:52 With:Dina Cobb MD, UR, URO Address: [address] [place], [place] [address]es [place] [address] [phone] Business (1) When: Unknown [facility] Evaluation + Plan note Future Appointments Appointment Date:02/02/2022 08:00:00 AM Scheduled Provider:Dina Cobb MD Location:[facility] Appointment Type:URO Office Visit Appointment Date:02/09/2022 08:00:00 AM Scheduled Provider:Dina Cobb MD Location:[facility] Appointment Type:URO Office Visit Appointment Date:02/16/2022 08:00:00 AM Scheduled Provider:Dina Cobb MD Location:[facility] Appointment Type:URO Office Visit Appointment Date:02/23/2022 08:00:00 AM Scheduled Provider:Dina Cobb MD Location:[facility] Appointment Type:URO Office Visit Appointment Date:03/02/2022 09:30:00 AM Scheduled Provider:Dina Cobb MD Location:[facility] Appointment Type:URO Office Visit Appointment Date:03/17/2022 03:00:00 PM Scheduled Provider:Jeff Booth DO Location:FT.ONCOLOGY Appointment Type:ONC Office Visit New 30 (FT) [facility] Evaluation + Plan note Future Appointments Appointment Date:02/02/2022 08:00:00 AM Scheduled Provider:Dina Cobb MD [facility] App[facility] Type:URO Office Visit Appointment Date:02/09/2022 08:00:00 AM Scheduled Provider:Dina Cobb MD [facility] Appointment Type:URO Office Visit Appointment Date:02/16/2022 08:00:00 AM Scheduled Provider:Dina Cobb MD Location:[facility] Appointment Type:URO Office Visit Appointment Date:02/23/2022 08:00:00 AM Scheduled Provider:Dina Cobb MD [facility] Appointment Type:URO Office Visit Appointment Date:03/02/2022 09:30:00 AM Scheduled Provider:Dina Cobb MD Location:[facility] Appointment Type:URO Office Visit Appointment Date:03/17/2022 03:00:00 PM Scheduled Provider:Jeff Booth DO Location:.ONCOLOGY Appointment Type:ONC Office Visit New 30 (FT) Diagnostic Tests PendingUrine Culture 01/26/22 [facility] Evaluation + Plan note Future Appointments Appointment Date:02/09/2022 08:00:00 AM Scheduled Provider:Dina Cobb MD Location[facility] Appointment Type:URO Office Visit Appointment Date:02/16/2022 08:00:00 AM Scheduled Provider:Dina Cobb MD Location[facility] Appointment Type:URO Office Visit Appointment Date:02/23/2022 08:00:00 AM Scheduled Provider:Dina Cobb MD Location:[facility] Appointment Type:URO Office Visit Appointment Date:03/02/2022 09:30:00 AM Scheduled Provider:Dina Cobb MD Location:[facility] Appointment Type:URO Office Visit Appointment Date:03/17/2022 03:00:00 PM Scheduled Provider:Jeff Booth DO Location:.ONCOLOGY Appointment Type:ONC Office Visit New 30 (FT) [facility] Evaluation + Plan note Future Appointments Appointment Date:02/16/2022 08:00:00 AM Scheduled Provider:Dina Cobb MD Location:[facility] Appointment Type:URO Office Visit Appointment Date:02/23/2022 08:00:00 AM Scheduled Provider:Dina Cobb MD Location:[facility] Appointment Type:URO Office Visit Appointment Date:03/02/2022 09:30:00 AM Scheduled Provider:Dina Cobb MD Location:[facility] Appointment Type:URO Office Visit Appointment Date:03/17/2022 03:00:00 PM Scheduled Provider:Jeff Booth DO Location:[facility] Appointment Type:ONC Office Visit New 30 (FT) [facility] Evaluation + Plan note Future Appointments Appointment Date:03/17/2022 03:00:00 PM Scheduled Provider:Jeff Booth DO Location:[facility] Appointment Type:ONC Office Visit New 30 (FT) [facility] Evaluation + Plan note Future Appointments Appointment Date:03/15/2023 12:30:00 PM Scheduled Provider:Jeff Booth DO Location:[facility] Appointment Type:ONC Office Visit 15 (FT) Diagnostic Tests PendingUrine Culture 03/25/22 [facility] Evaluation + Plan note Future Appointments Appointment Date:03/15/2023 12:30:00 PM Scheduled Provider:Jeff Booth DO Location:[facility] Appointment Type:ONC Office Visit 15 (FT) [facility] Evaluation + Plan note Future Appointments Appointment Date:06/22/2022 10:15:00 AM Scheduled Provider:Dina Cobb MD Location:[facility] Appointment Type:URO Office Visit Appointment Date:06/29/2022 10:15:00 AM Scheduled Provider:Dina Cobb MD Location:[facility] Appointment Type:URO Office Visit Appointment Date:07/06/2022 10:15:00 AM Scheduled Provider:Dina Cobb MD Location:[facility] Appointment Type:URO Office Visit Appointment Date:03/15/2023 12:30:00 PM Scheduled Provider:Jeff Booth DO Location:[facility] Appointment Type:ONC Office Visit 15 (FT) [facility] Evaluation + Plan note Future Appointments Appointment Date:06/29/2022 07:45:00 AM Scheduled Provider:Dina Cobb MD Location:[facility] Appointment Type:URO Office Visit Appointment Date:07/06/2022 10:15:00 AM Scheduled Provider:Dina Cobb MD Location:[facility] Appointment Type:URO Office Visit Appointment Date:03/15/2023 12:30:00 PM Scheduled Provider:Jeff Booth DO Location:.ONCOLOGY Appointment Type:ONC Office Visit 15 (FT) [facility] Evaluation + Plan note Future Appointments Appointment Date:07/06/2022 10:15:00 AM Scheduled Provider:Dina Cobb MD Location:[facility] Appointment Type:URO Office Visit Appointment Date:03/15/2023 12:30:00 PM Scheduled Provider:Jeff Booth DO Location:[facility] Appointment Type:ONC Office Visit 15 (FT) Diagnostic Tests PendingBUN 06/29/22Creatinine 06/29/22 [facility] Evaluation + Plan note Future Appointments Appointment Date:10/19/2022 08:00:00 AM Scheduled Provider:Dina Cobb MD Location:[facility] Appointment Type:URO Office Visit Appointment Date:10/26/2022 10:30:00 AM Scheduled Provider:AI REDMOND PA-C Location:[facility] Appointment Type:URO Office Visit Appointment Date:03/15/2023 12:30:00 PM Scheduled Provider:Jeff Booth DO Location:[facility] Appointment Type:ONC Office Visit 15 (FT) [facility] Evaluation + Plan note Future Appointments Appointment Date:10/26/2022 10:30:00 AM Scheduled Provider:AI REDMOND PA-C Location:[facility] Appointment Type:URO Office Visit Appointment Date:03/15/2023 12:30:00 PM Scheduled Provider:Jeff Booth DO Location:[facility] Appointment Type:ONC Office Visit 15 (FT) [facility] Evaluation + Plan note Future Appointments Appointment Date:03/15/2023 12:30:00 PM Scheduled Provider:Jeff Booth DO Location:[facility]COL[facility] Appointment Type:ONC Office Visit 15 (FT) Diagnostic Tests PendingUrine Culture 12/14/22 [facility] Evaluation + Plan note Future Appointments Appointment Date:04/24/2024 11:00:00 AM Scheduled Provider:Jeff Booth DO Location:[facility]ONCOL[facility] Appointment Type:ONC Office Visit 15 (FT) [facility] Evaluation note No assessment inform ation available [facility] Work Phone: Evaluation note Diagnosis Essential hypertension (CMS/HCC)- Primary Unspecified essential hypertension Lower extremity edema Edema Bilateral edema of lower extremity GERD without esophagitis Esophageal reflux Malignant neoplasm of urinary bladder, unspecified site (CMS/HCC) Morbid obesity (CMS/HCC) Morbid obesity Annual physical exam- Primary Routine general medical examination at a health care facility Morbid (severe) obesity due to excess calories (CMS/HCC) Body mass index (BMI) 45.0-49.9, adult (CMS/HCC) Need for malaria prophylaxis Screen for colon cancer- Primary Special screening for malignant neoplasms, colon Personal history of colon polyps, unspecified documented in this encounter [facility] Diagnosis Essential hypertension (CMS/HCC)- Primary Unspecified essential hypertension Lower extremity edema Edema Bilateral edema of lower extremity GERD without esophagitis Esophageal reflux Malignant neoplasm of urinary bladder, unspecified site (CMS/HCC) Morbid obesity (CMS/HCC) Morbid obesity Annual physical exam- Primary Routine general medical examination at a health care facility Morbid (severe) obesity due to excess calories (CMS/HCC) Body mass index (BMI) 45.0-49.9, adult (CMS/HCC) Need for malaria prophylaxis Primary insomnia- Primary Persistent disorder of initiating or maintaining sleep documented in this encounter [facility]* Diagnosis Essential hypertension (CMS/HCC)- Primary Unspecified essential hypertension Lower extremity edema Edema Bilateral edema of lower extremity GERD without esophagitis Esophageal reflux Malignant neoplasm of urinary bladder, unspecified site (CMS/HCC) Morbid obesity (CMS/HCC) Morbid obesity Annual physical exam- Primary Routine general medical examination at a health care facility Morbid (severe) obesity due to excess calories (CMS/HCC) Body mass index (BMI) 45.0-49.9, adult (CMS/HCC) Need for malaria prophylaxis Primary insomnia Persistent disorder of initiating or maintaining sleep documented in this encounter [facility] note* Diagnosis Essential hypertension (CMS/HCC)- Primary Unspecified essential hypertension Lower extremity edema Edema Bilateral edema of lower extremity GERD without esophagitis Esophageal reflux Malignant neoplasm of urinary bladder, unspecified site (CMS/HCC) Morbid obesity (CMS/HCC) Morbid obesity Annual physical exam- Primary Routine general medical examination at a health care facility Morbid (severe) obesity due to excess calories (CMS/HCC) Body mass index (BMI) 45.0-49.9, adult (CMS/HCC) Need for malaria prophylaxis Essential hypertension (CMS/HCC)- Primary Unspecified essential hypertension Abnormal liver function Unspecified disorder of liver GERD without esophagitis Esophageal reflux History of breast cancer Personal history of malignant neoplasm of breast Bilateral edema of lower extremity Malignant neoplasm of urinary bladder, unspecified site (CMS/HCC) Class 3 severe obesity due to excess calories with serious comorbidity and body mass index (BMI) of 45.0 to 49.9 in adult (CMS/HCC) documented in this encounter [facility] Narrative No data available for this section [facility] Hospital Discharge instructions No data available for this section [facility] No data available for this section [facility] Summary Purpose Family History No Family [...] and content) DATE CREATED AUTHOR 06/24/2020 [facility] DATE CREATED AUTHOR AUTHOR'S ORGANIZ ATION 09/01/2020 [facility] DATE CREATED AUTHOR AUTHOR'S ORGANIZ ATION 11/21/2020 [facility] DATE CREATED AUTHOR AUTHOR'S ORGANIZ ATION 03/09/2023 [facility] DATE CREATED AUTHOR AUTHOR'S ORGANIZ ATION 02/24/2024 [facility] DATE CREATED AUTHOR AUTHOR'S ORGANIZ ATION 07/05/2024 [facility] DATE CREATED AUTHOR AUTHOR'S ORGANIZ ATION 11/27/2024 [facility] EPIC DATE CREATED AUTHOR AUTHOR'S ORGANIZ ATION 12/02/2024 [facility] Care Team (unrecognized sect ion and content) Team Status: Active Member Role Status Dates Bayron Singh MD Primary Care Provider Active Team Status: Inactive Member Role Status Dates Bayron Singh MD Primary Care Provider Active S tart: February 14, 2024 End: February 14, 2024 Jeff Cordova Attending Provider Active Start: February 14, 2024 End: February 14, 2024 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 Start Date End Date Bayron Singh MD [address] [place] [address] [facility] 12/29/23 Bayron Singh MD [address] [place] [phone] PCP - General Family Medicine 05/21/24 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 Start Date End Date Bayron Singh MD [address] [place] [address] PCP - [employer] 12/29/23 Bayron Singh MD [address] [place] [phone] PCP - General Family Medicine 05/21/24 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 Start Date End Date Bayron Singh MD [address] [place] [phone] PCP - [employer] 12/29/23 Bayron Singh MD [address] [place] [phone] PCP - General Family Medicine 05/21/24 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 Start Date End Date Bayron Singh MD [address] [place] [phone] PCP - [employer] 12/29/23 Bayron Singh MD [address] [place] [phone] PCP - General Family Medicine 05/21/24 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 Start Date End Date Bayron Singh MD [address] [place] [phone] PCP - [employer] 12/29/23 Bayron Singh MD [address] [place] [phone] PCP - General Family Medicine 05/21/24 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 Start Date End Date Bayron Singh MD [address] [place] [phone] PCP - [employer] 12/29/23 Bayron Singh MD [address] [place] [phone] PCP - General Family Medicine 05/21/24 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 Pt denies/admits to: admits to having a colonoscopy before. Last colonoscopy was 03/19 and it was an EMR. She states that she had a colonoscopy done with [facility] in January and there was large polyps. She was told by the DR at [facility] that she needed a follow up colonoscopy by the end of year to make sure she was healing well. She denies any concerns. Reason Onset Date Comments Med Refill 10/03/2024 Reason Onset Date Comments Med Refill 10/11/2024 Reason Comments Follow-up 6m Fatigue Tired all the time Shortness of Breath FOR RECORDS PERTAINING TO PATIENTS WHO ARE [...] BE BASED ON THE PRIMARY CLINICAL RECORDS. [employer] provides no warranty or guarantee of the accuracy or completeness of information in this document.
--- NOTE | 2024-12-04 10:35 | US_ITS ---
The [address] [address] Patient Name: DANIELLA BEJARANO MRN: [id number] date: 1960 Sex: F Assigned Patient Location: US Current Patient Location: [place] Accession/Order Number: [id number] Exam Date: 12/04/2024 10:36 Report Date: 12/04/2024 13:30 At the request of: NILS SINGH Procedure: US right upper quadrant EXAMINATION: US right upper quadrant HISTORY: Abnormal Liver Function R94.5 ; history of bladder cancer COMPARISON: CT abdomen pelvis 07/01/2022 TECHNIQUE: Transabdominal evaluation of the right upper quadrant. FINDINGS: LIVER: Increased echogenicity suggestive of fatty infiltration. Nonspecific 8 x 6 mm rounded hypoechoic area within left lobe. Color Doppler demonstrates patent hepatic veins. PORTAL VEIN: Duplex Doppler demonstrates normal hepatopetal flow pattern with flow velocity averaging 36 cm/s. GALLBLADDER: Cholecystectomy. BILIARY: No abnormal dilation or stones. Common bile duct diameter is within normal limits. PANCREAS: Limited evaluation. No visible mass, abnormal atrophy, or duct dilation. KIDNEY: No hydronephrosis. No visible mass or stones. Size: 12.2 x 5.0 x 4.5 cm US/US right upper quadrant IMPRESSION: 1. Mild fatty infiltration of liver. 2. Small 8 mm hypoechoic area within left lobe; nonspecific but more suggestive of a cyst then neoplasm or other concerning etiology. Consider follow-up CT abdomen with multiphase liver protocol if strong clinical concern. Electronically authenticated by: LONG ALLEN Date: 12/04/2024 13:30
== END 2024-12-04 10:09 | disposition home or self-care (01) ==
LOC: US 10:08
PROVIDERS: PCP Family Medicine; Visit Provider Family Medicine
DX: R94.5 Abnormal results of liver function studies (principal)
CPT/HCPCS: 76705

== ENCOUNTER 2024-12-06 12:29 | Outpatient (OUT) | payer MEDICARE, OTHER, SELFPAY ==
--- NOTE | 2024-12-06 12:49 | CT_ITS ---
[address] [address] Patient Name: DANIELLA BEJARANO MRN: [facility]:[id number] date: 1960 Sex: F Assigned Patient Location: CT Current Patient Location: Accession/Order Number: [id number] Exam Date: 12/06/2024 13:05 Report Date: 12/09/2024 15:31 At the request of: NILS SINGH Procedure: CT abdomen wo/w con EXAMINATION: CT abdomen wo/w con HISTORY: Liver Lesion, Metabolic Dysfunction COMPARISON: 12/04/2024 ultrasound TECHNIQUE: Axial, Coronal, and Sagittal images were created without and with non-ionic intravenous contrast material. Dose reduction techniques were achieved by using automated exposure control and/or adjustment of mA and/or kV according to patient size and/or use of iterative reconstruction technique. FINDINGS: LUNG BASES: No visible pulmonary or pleural disease. LIVER: Normal in size, contour and echotexture. No focal hepatic lesion is observed BILIARY: Surgical clips from cholecystectomy PANCREAS: No lesion, fluid collection, ductal dilatation, or atrophy. SPLEEN: No enlargement or focal lesion. ADRENALS: No mass or enlargement. KIDNEYS: Bilateral renal cortical hypodensities too small to characterize on the right. Likely a cyst on the left measuring 15 Hounsfield units BOWEL/MESENTERY: Colonic diverticulosis without evidence of acute diverticulitis. Nonobstructive bowel gas pattern AORTA/VASCULAR: No aneurysm or dissection. ABDOMINAL WALL: No mass or hernia. BONES: No bony lesion or fracture. OTHER: Negative. CT/CT abdomen wo/w con IMPRESSION: 1. No focal hepatic lesion observed. 2. Bilateral renal cortical hypodensities too small to characterize on the right. Electronically authenticated by: SPARKLE RODRIGUEZ Date: 12/09/2024 15:31
== END 2024-12-06 12:30 | disposition home or self-care (01) ==
LOC: CT 12:29
PROVIDERS: PCP Family Medicine; Visit Provider Family Medicine
DX: K75.81 Nonalcoholic steatohepatitis (NASH) (principal); K76.9 Liver disease, unspecified
CPT/HCPCS: 74170; Q9967

== ENCOUNTER 2025-05-29 11:59 | Outpatient (OUT) | payer MEDICARE, OTHER, SELFPAY ==
--- OUTSIDE RECORDS SUMMARY | 2024-04-16 11:35 | XMS_ITS ---
Author Organization [facility] Address [address] [place] [address] Care Team Providers Care Evp Strategy Name Role Phone Bayron Wells MD Primary Care Provider Unavailab yulisa Vic Capellan Unavailable [phone] REASON FOR VISIT PAP Supplies Encounters Encounter Location Date Provider Diagnosis [facility] [address] [place] [address] 04/16/2024 Viccherie Capellan Plan Of Treatment Next Appt Details Provider Name:Vic Capellan, 12/16/2025 11:00:00 AM, [address] [place], [address], Progress Notes * Yoko RUTLEDGE ADOB: [birth year] (63 yo F)Acc No.[id number]:04/16/2024 Patient: Citlali Yoko SINGER :1960 A ge:63 Y S ex:Female Address:[address] [place], [address] * true * Date: Generated for Printi ng/Faxing/eTransmitting on: 0 05/29/2025 12:04 PM EDT
--- OUTSIDE RECORDS SUMMARY | 2024-12-04 06:55 | XMS_ITS ---
Author Organization [facility] in [place] Address [address] [place] [address] Care Team Providers Care Laser Engineer Name Role Phone Bayron Wells MD Primary Care Provider Unavailab yulisa Timi Vic Unavailable [phone] REASON FOR VISIT PAP Headgear Encounters Encounter Location Date Provider Diagnosis Pulmonary Medicine [place] [address] [place] [address] 12/04/2024 Viccherie Palmer Plan Of Treatment Next Appt Details Provider Name:Vic Capellan, 12/16/2025 11:00:00 AM, [address] [place], [address], Progress Notes * Yoko RUTLEDGE ADOB: [birth year] (64 yo F)Acc No.[id number]:12/04/2024 Patient: Yoko MCKEON :1960 A ge:64 Y S ex:Female Address:[address] [place], [address] * true * Date: Generated for Printi ng/Faxing/eTransmitting on: 0 05/29/2025 12:04 PM EDT"
--- OUTSIDE RECORDS SUMMARY | 2024-12-18 07:00 | XMS_ITS ---
Author Organization [facility] [place] Address [address] [place] [address] Care Team Providers Care Foundry Superintendant Name Role Phone Bayron Wells MD Primary Care Provider UnavailVic Calloway Unavailable [phone] Allergies Allergen (clinical drug ingredient) Drug/Non Drug [...] Encounter Location Date Provider Diagnosis Pulmonary Medicine [address] [address] 12/18/2024 Vic Capellan AIDAN (obstructive sleep apnea) G47.33 ; History of tobacco abuse Z87.891 ; Cancer of bladder wall C67.9 ; Morbid obesity E66.01 and Body mass index [BMI] 45.0-49.9, adult Z68.42 Assessments Encounter Date Diagnosis (ICD Code) Assessment Notes Treatment Notes Treatment Clinical Notes Section Notes 12/18/2024 AIDAN (obstructive sleep apnea) (ICD-10 - G47.33) Uuqn-nc-vger encounter performed with the patient to document continued need for PAP therapy. -Current DME: [facility] 10/11/2021: AHI 30-Compliance was reviewed from 11/16/2024 - 12/15/2024-Total days used: 3030 (100%)-Total of all days >4 hours of use: 30/30 (100%)-Current model, mode, & pressure: AirSense 11 AutoSet auto-CPAP 5-15 -Median pressure: 8.5vmN6Y-Kudglzyp AHI: 0.7-Air leak (95th percentile): 1L/min-Mask/harnes s fitting: Fits great, no leak. Loves her nasal mask.-Sleep quality: Well-rested, sleeps great-Daytime hypersomnolence: Pretty much resolved.-Recommen dations: Continues to have superb compliance without any complaints or concerns today. No significant leak and AHI is 0.7. No changes this visit. Continue using CPAP @ HS/naps as she is.-Note: This vczd-nj-ixqv visit comes with my authorization that the [...] Notes Assessment Notes AIDAN (obstructive sleep apnea) Ujmp-sf-mnve encounter performed with the patient to document continued need for PAP therapy. -Current DME: [facility] 10/11/2021: AHI 30-Compliance was reviewed from 11/16/2024 - 12/15/2024-Total days used: 30/30 (100%)-Total of all days >4 hours of use: 30/30 (100%)-Current model, mode, & pressure: AirSense 11 AutoSet auto-CPAP 5-15 -Median pressure: 8.7grI7L-Tpovfluc AHI: 0.7-Air leak (95th percentile): 1L/min-Mask/harness fitting: Fits great, no leak. Loves her nasal mask.-Sleep quality: Well-rested, sleeps great-Daytime hypersomnolence: Pretty much resolved.-Recommendations: Continues to have superb compliance without any complaints or concerns today. No significant leak and AHI is 0.7. No changes this visit. Continue using CPAP @ HS/naps as she is.-Note: This yzna-qp-pzfa visit comes with my authorization that the [...] Follow Up: 1 Year, Reason: O SA Provider Name:Vic Capellan, 12/16/2025 11:00:00 AM, [address] [place], [address], Progress Notes * Yoko RUTLEDGE ADOB: [birth year] (64 yo F)Acc No.[id number]:12/18/2024 Follow Up Patient: Citlali LUCRECIA Yoko Perez Provider: Citlali Capellan DO :1960 A ge:64 Y S ex:Female Date:12/18/2024 Address:[address] [place], [place] [id number] Pcp:Bayron Wells MD Check In:10:52 AM ESTCheck O ut:11:10 AM EST Subjective: * Chief Complaints: * 1 YEAR-AIDAN * HPI: E pworth Sleepiness Scale: Here for annual olcw-ed-oory. Patient is doing very well on PAP. Has absolutely no complaints and has superb compliance. Her median leak is ZERO and 95th percentile is only 1L/min. [place] is 1. MA Intake Comments:. [place] Sleepiness Scale C silvia of dozing while [...] presents for a follow-up for AIDAN. DME: [email or web address]. Patient denies any complaints or concerns with her machine. Patient is compliant and reports great benefit. Patient reports recently receiving new supplies from [facility] for her PAP. Patient is under the care of [facility] Cardiology. 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 D rugs/Alcohol: D rugs H [...] smoking cessation provided 0 12/18/2024 Former B AL ACTION PLAN Above Normal BMI Follow-up D ietary management education, guidance, and counseling * Follow Up: 1 Year (Reason: AIDAN) * * Sign off status: Completed Visit Status: C HK (Check Out) true * Provider: Citlali Capellan DO Date: 0 12/18/2024 Generated for Olivia cunningham/Gaby/Kennitting on: 0 05/29/2025 10:50 AM EDT History and Physical Notes * HPI (History of Present Illness) Category Sub-Category Detail Notes Category Not es [place] Sleepiness Scale [place] Sleepiness Scale Chance of dozing while sitting and reading:: 0 - Never Patient presents for a follow-up for AIDAN. DME: [email or web address]. Patient denies any complaints or concerns with her machine. Patient is compliant and reports great benefit. Patient reports recently receiving new supplies from [employer] for her PAP. Patient is under the care of [facility] Cardiology. Chance of dozing while watching [...] APPEARANCE: Appears stated age Skin Normal Mouth Tees Toh and moist Trachea Midline Chest Normal Respiratory Normal Movements, Ef fort Normal Auscultation Normal breath sounds Cardiac Regular rate and rhy thm Gastrointestinal Increased central ad iposity Vascular No edema Musculoskeletal Normal posture Neurological Focal, intact Psychiatric Alert and oriented x 3 Mentation/Cognition Normal Oropharynx Mallampati Class III . Macroglossia with tongue ridging
--- OUTSIDE RECORDS SUMMARY | 2025-05-29 11:00 | XMS_ITS | Encounter Summary ---
Author Organization [facility] Address [address] [place] [address] Care Team Providers Care Electric Organ Inspector And Repairer Name Role Phone Bayron Wells MD Primary Care Provider [phone] Reason for Visit * Reason Comments Medicare Annual Wellness Visit Subsequen t wellness Encounter Details Date Type Department Care Team ([facility] Contact Info) Description 05/29/2025 11:00 AM EDT Office Visit [facility] [address] [place] [id number] Bayron Wells MD [address] [place] [id number] Medicare annual wellness visit, subsequent (Primary Dx); Dyslipidemia ; Essential hypertension ; Prediabetes; Encounter for long-term current use of medication; Class 3 severe obesity due to excess calories with serious comorbidity and body mass index (BMI) of 40.0 to 44.9 in adult ([facility]) Social History Tobacco Use Types Packs/Day Years Used Date Smoking Tobacco: Former Cigarettes 1 15 Q uit: 03/18/1979 Smokeless Tobacco: Never Alcohol Use Standard Drinks/Week Comments Not Currently 30 (1 standard drink = 0.6 oz pure alcohol) caffeine intake: 1-2 cups per day of soda B1300 Health Literacy Answer Date Recor ded How often do you need to hav e someone help you when you read instructions, pamphlets, or other written material from your doctor or pharmacy? Never 11/25/2024 Humiliation, Afraid, Rape, and Kick questionnair e Answer Date Recorded Within the last year, have y ou been afraid of your partner or ex-partner? No 11/08/2023 Within the last year, have y ou been humiliated or emotionally abused in other ways by your partner or ex-partner? No Within the last year, have y ou been kicked, hit, slapped, or otherwise physically hurt by your partner or ex-partner? No 11/08/2023 Within the last year, have y ou been raped or forced to have any kind of sexual activity by your partner or ex-partner? No 11/08/2023 Social Connection and Isolat ion Panel [NHANES] Answer Date Recorded In a typical week, how many times do you talk on the phone with family, friends, or neighbors? More than three times a week 11/25/2024 How often do you get togethe r with friends or relatives? Three times a week 11/25/2024 How often do you attend chur or lutheran services? 1 to 4 times per year 11/25/2024 Do you belong to any clubs o r organizations such as evangelical groups, unions, fraternal or athletic groups, or school groups? Yes 11/25/2024 How often do you attend meet ings of the clubs or organizations you belong to? More than 4 times per year 11/25/2024 Are you , , di vorced, , never , or living with a partner? 11/25/2024 AUDIT-C Answer Date Recorded Q1: How often do you have a drink containing alc ohol? 2-3 times a week 11/25/2024 Q2: How many drinks containi ng alcohol do you have on a typical day when you are drinking? 1 or 2 11/25/2024 Q3: How often do you have si x or more drinks on one occasion? Never 11/25/2024 Overall Financial Resource Strain (CARDIA) Answe r Date Recorded How hard is it for you to pa y for the very basics like food, housing, medical care, and heating? Not very hard 11/25/2024 PHQ-2 Answer Date Recorded Patient Health Questionnaire-2 Score 0 05/29/2025 [facility] - Occupational Stress Questionnaire Answer Date Recorded Do you feel stress - tense, restless, nervous, or anxious, or unable to sleep at night because your mind is troubled all the time - these days? Only a little 11/25/2024 Exercise Vital Sign Answer Date Recorde d On average, how many days pe r week do you engage in moderate to strenuous exercise (like a brisk walk)? 6 days 11/25/2024 On average, how many minutes do you engage in exercise at this level? 20 min 11/25/2024 Hunger Vital Sign Answer Date Recorded Within the past 12 months, y ou worried that your food would run out before you got the money to buy more. Never true 11/25/19 25 Within the past 12 months, t he food you bought just didn't last and you didn't have money to get more. Never true 11/25/2024 PRAPARE - Transportation Answer Date Re corded In the past 12 months, has l ack of transportation kept you from medical appointments or from getting medications? No 10/31 In the past 12 months, has l ack of transportation kept you from meetings, work, or from getting things needed for daily living? No 11/25/2024 Housing Stability Vital Sign Answer Dashawn e Recorded In the last 12 months, was t here a time when you were not able to pay the mortgage or rent on time? No 11/08/2023 Number of Places Lived in the Last Year Not on f ile 11/08/2023 In the last 12 months, was t here a time when you did not have a steady place to sleep or slept in a fdc (including now)? No 11/08/2023 Housing Stability Vital Sign Answer Dashawn e Recorded In the last 12 months, was t here a time when you were not able to pay the mortgage or rent on time? No 11/25/2024 In the past 12 months, how m any times have you moved where you were living? 0 11/25/2024 At any time in the past [address] [facility], were you homeless or living in a fdc (including now)? 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 on file Travel History Travel Start Travel End [place] 05/22/2025 05/26/2025 documented as of this encounter Last Filed Vital Signs Vital Sign Reading Time Taken Comments Blood Pressure 118/62 05/29/2025 11:06 AM EDT Pulse 73 05/29/2025 11:06 AM EDT Temperature 36.4 C (97.5 F) 05/29/2025 11:06 AM EDT Respiratory Rate 20 05/29/2025 11:06 AM EDT Oxygen Saturation 97% 05/29/2025 11:06 AM EDT Inhaled Oxygen Concentration - - Weight 117 kg (257 lb) 05/29/2025 11:06 AM EDT Height 163.8 cm (5' 4.5 ) 05/29/2025 11:06 AM ED T Body Mass Index 43.43 05/29/2025 11:06 AM EDT documented in this encounter Functional Status * Over the past 2 weeks, how often have you been bothered by any of the following problems? Question Answer Date of Assessment Author Little interest or pleasure in doing things Not at all 05/29/2025 11:00 AM [place] Feeling down, depressed, or hopeless Not at all 05/01 11:00 AM [place] Patient Health Questionnaire-2 Score 0 05/01 11:00 AM [place] * Question Answer Date of Assessment Author Trouble falling or staying a sleep, or sleeping too much Several days 05/29/2025 11:00 AM [place] Feeling tired or having yousuf le energy Not at all 05/29/2025 11:00 AM [place] Poor appetite or overeating Not at all 05/29/2025 11 :00 AM [place] Feeling bad about yourself - or that you are a failure or have let yourself or your family down Not at all 05/29/2025 11:00 AM [place] Trouble concentrating on thi ngs, such as reading the newspaper or watching television Not at all 05/29/2025 11:00 AM [place] Moving or speaking so slowly that other people could have noticed? Or the opposite - being so fidgety or restless that you have been moving around a lot more than usual. Not at all 05/29/2025 11:00 AM EDT [place] Thoughts that you would be b maikol off or hurting yourself in some way Not at all 05/29/2025 11:00 AM EDT [place] Patient Health Questionnaire -9 Score 1 05/29/2025 11:00 AM EDT [place] documented as of this encounter Progress Notes * Bayron Wells MD - 05/29/2025 11:45 AM EDTAssociated Problem(s): Medicare annual wellness visit, subsequent Due for labs. Discussed proper diet and regular aerobic exercise. Need aerobic exercise 5-6 days a week for 30 minutes at a time. Smaller portions and limit total calories. Colonoscopy every 10 years. Tetanus every 10 years. Advised not to smoke. * Bayron Wells MD - 05/29/2025 11:00 AM EDT Subjective Patient ID: Yoko Rutledge is a 64 y.o. female who presents for Medicare Annual Wellness Visit Subsequent (wellness). Presents for medicare annual wellness visit. Feels well and no concerns. Weight down 16 pounds in past year. Remains active and exercises several days a week. Tries to watch diet and eat healthy. Increased fruits and vegetables. Smaller portions and limits snacking. Tries to limit total daily calories. Due for labs. Taking adipex and tolerating well. Review of Systems Respiratory: Negative for cough, shortness of breath and wheezing. Cardiovascular: Negative for chest pain [...] There is no guarding or rebound. Musculoskeletal: General: No swelling or tenderness. Cervical back: Neck supple. Right lower leg: No edema. Left lower leg: No edema. Skin: Findings: No erythema or rash. Neurological: General: No focal deficit present. Mental Status: She is alert and oriented to person, place, and time. Cranial Nerves: No cranial nerve deficit. Motor: No weakness. Gait: Gait normal. Assessment/Plan Problem List Items Addressed This Visit Essential hypertension Relevant Orders Basic metabolic panel Class 3 severe obesity due to excess calories with serious comorbidity and body mass index (BMI) of40.0 to 44.9 in adult ([facility]) Relevant Medications phentermine (Adipex-P) 37.5 MG tablet Other Relevant Orders TSH Dyslipidemia Relevant Orders Lipid panel Prediabetes Relevant Orders Hemoglobin A1c Medicare annual wellness visit, subsequent - Primary Due for labs. Discussed proper diet and regular aerobic exercise. Need aerobic exercise 5-6 days a week for 30 minutes at a time. Smaller portions and limit total calories. Colonoscopy every 10 years. Tetanus every 10 years. Advised not to smoke. Encounter for long-term current use of medication Relevant Orders CBC and differential Hepatic function panel documented in this encounter Plan of Treatment Upcoming Encounters Date Type Department Care Team (Late st Contact Info) Description 09/05/2025 11:00 AM EST Office Visit [facility] [address] [place] [address] Bayron Wells MD [address] [place] [address] Scheduled Orders Name Type Priority Associated Diagnoses Orde r Schedule Hemoglobin A1c Lab Routine Prediabetes Expected: 05/29/2025 (Approximate), Expires: 05/29/2026 Basic metabolic panel Lab Routine Essential hypertension Expected: 05/29/2025 (Approximate), Expires: 05/29/2026 CBC and differential Lab Routine Encounter for long-term current use of medication Expected: 05/29/2025 (Approximate), Expires: 05/29/2026 Hepatic function panel Lab Routine Encounter for long-term current use of medication Expected: 05/29/2025 (Approximate), Expires: 05/29/2026 Lipid panel Lab Routine Dyslipidemia Expected: 05/29/2025 (Approximate), Expires: 05/29/2026 TSH Lab Routine Class 3 severe obesity due to excess calories with serious comorbidity and body mass index (BMI) of 40.0 to 44.9 in adult ([facility]) Expected: 05/29/2025 (Approximate), Expires: 05/29/2026 documented as of this encounter Visit Diagnoses Diagnosis Medicare annual wellness visit, subsequent- Primary Dyslipidemia Other and unspecified hyperlipidemia Essential hypertension Unspecified essential hypertension Prediabetes Other abnormal glucose Encounter for long-term current use of medication Class 3 severe obesity due to excess calories with serious comorbidity and body mass index (BMI) of 40.0 to 44.9 in adult ([facility]) documented in this encounter Additional Health Concerns Assessment Noted Time PHQ-9 Depression Total Score: 1 05/29/20 25 11:00 AM EDT documented as of this encounter Care Teams Electric Organ Inspector And Repairer Relationship Specialty Start Date End Date Bayron Wells MD [address] [place] [address] PCP - General Family Medicine 05/21/24 documented as of this encounter
--- OUTSIDE RECORDS SUMMARY | 2025-05-29 12:04 | XMS_ITS | Encounter Summary ---
Author Organization [facility] Address [address] [place] [address] Care Team Providers Care Shrimp Packer Name Role Phone Bayron Wells MD Primary Care Provider [phone] Bayron Wells MD Unavailable Bayron Wells MD Primary Care Provider [phone] Encounter Details Date Type Department Care Team (Late st Contact Info) Description 05/09/2024 Clinisync Result Encounter [facility] External Department Unsolicited Bayron Wells MD [address] [facility] [place] [address] Social History Tobacco Use Types Packs/Day Years Used Date Smoking Tobacco: Former Cigarettes Q uit: 03/18/1979 Smokeless Tobacco: Never Alcohol Use Standard Drinks/Week Comments Not Currently 0 (1 standard drink = 0.6 oz pure alcohol) caffeine intake: 1-2 cups per day of soda Humiliation, Afraid, Rape, and Kick questionnair e [...] neighbors? More than three times a week 11/08/2023 How often do you get togethe r with friends or relatives? Three times a week 11/08/2023 How often do you attend chur or hindu services? Patient declined 11/08/2023 Do you belong to any clubs o r organizations such as latter-day groups, unions, fraPhoto Rankr or athletic groups, or school groups? No 11/08/2023 How often do you attend meet ings of the clubs or organizations you belong to? Patient declined 11/08/2023 Are you , , di vorced, , never , or living with a partner? Living with partner 11/08/2023 AUDIT-C Answer Date Recorded Q1: How often do you have a drink containing alc ohol? 2-4 times a month 11/08/2023 Q2: How many drinks containi ng alcohol do you have on a typical day when you are drinking? 1 or 2 11/08/2023 Q3: How often do you have si x or more drinks on one occasion? Never 11/08/2023 Overall Financial Resource Strain (CARDIA) Answe r Date Recorded How hard is it for you to pa y for the very basics like food, housing, medical care, and heating? Patient declined 11/08/2023 [facility] - Occupational Stress Questionnaire Answer Date Recorded Do you feel stress - tense, restless, nervous, or anxious, or unable to sleep at night because your mind is troubled all the time - these days? Only a little 11/08/2023 Exercise Vital Sign Answer Date Recorde d On average, how many days pe r week do you engage in moderate to strenuous exercise (like a brisk walk)? 5 days 11/08/2023 On average, how many minutes do you engage in exercise at this level? 10 min 11/08/2023 Hunger Vital Sign Answer Date Recorded Within the past 12 months, y ou worried that your food would run out before you got the money to buy more. Never true 11/08/19 24 Within the past 12 months, t he food you bought just didn't last and you didn't have money to get more. Never true 11/08/2023 PRAPARE - Transportation Answer Date Re corded In the past 12 months, has l ack of transportation kept you from medical appointments or from getting medications? No 10/30 In the past 12 months, has l ack of transportation kept you from meetings, work, or from getting things needed for daily living? No 11/08/2023 Housing Stability Vital Sign Answer [...] place to sleep or slept in a halfway (including now)? 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 Not on file Travel History Travel Start Travel End [place] 05/22/2025 05/26/2025 documented as of this encounter Plan of Treatment Upcoming Encounters Date Type Department Care Team (Late st Contact Info) Description 09/05/2025 11:00 AM EST [facility] Visit [facility] [address] [place] [address] Bayron Wells MD [address] [place] [address] documented as of this encounter Procedures Procedure Name Priority Date/Time Associated Diagnosis Comments BI MAMMOGRAM SCREENING TOMOSYNTHESIS LEFT 05/09/2024 12:59 PM EDT documented in this encounter Results * Left screening mammogram with tomosynthesis (05/09/2024 12:59 PM EDT) Anatomical Region Laterality Modality Breast Left Mammography 05/09/2024 12:5 9 PM EDT Narrative 05/09/2024 1:00 PM EDT [facility] [place] [id number] Mammography Report Signed Patient: YOKO RUTLEDGE MR#: [id number] : 1960 Acct:[id number] Age/Sex: 63 / F ADM Date: 05/09/24 Loc: MAMMO Attending Dr: Bayron Wells M.D. Ordering Physician: Bayron Wells M.D. Results: Date of Service: 05/09/24 Follow Up: Procedure(s): MM tomosynthesis screening LT Accession Number(s): [id number] cc: Bayron Wells M.D. Patient Name: YOKO RUTLEDGE MR#: [id number] : 1960 Exam Date: 05/09/2024 Ordering Doctor: DR Bayron Gibson RADIOLOGY REPORT PROCEDURE: MM TOMOSYNTHESIS SCREENING LT COMPARISON: MM TOMOSYNTHESIS SCREENING LT, 05/08/2023. INDICATIONS: Screening Calculator Name NCI Breast Cancer Risk Assessment Tool 5 Year Breast Cancer Risk n/a% Lifetime Breast Cancer Risk n/a% Personal Breast Cancer Yes, Invasive CA of Right, 56 Personal Ovarian Cancer No Treatments Right mastectomy Family Cancers Aunt-maternal with breast cancer at age 70; Aunt-paternal with breast cancer at age 70. LOCATION: [facility] BREAST COMPOSITION: There are scattered areas of fibroglandular density. FINDINGS: DIAGNOSTIC CATEGORY 1--NEGATIVE. NO CHANGE FROM COMPARISON ASSESSMENT. LEFT BREAST: No significant suspicious finding. RECOMMENDATIONS: ROUTINE MAMMOGRAM AND CLINICAL EVALUATION IN 12 MONTHS. PLEASE NOTE: A NORMAL MAMMOGRAM DOES NOT EXCLUDE THE POSSIBILITY OF BREAST CANCER. A CLINICALLY SUSPICIOUS PALPABLE LUMP SHOULD BE BIOPSIED. Dictated by: Darian Whatley MD on 05/09/2024 at 12:58 Approved by: Darian Whatley MD on 05/09/2024 at 12:59 Dictated By: Darian Whatley M.D. Signed By: 05/09/24 1300 DD/ 1259 TD/TT: Repairer Finished Metal: Procedure Note Radiology, Radiologist, - 05/09/2024 [place] [address] Mammography Report Signed Patient: YOKO RUTLEDGE [facility]#: [id number] : 8Acct:[id number] Age/Sex: 63 / FADM Date: 05/09/24 Loc: MAMMO Attending Dr: Bayron Wells M.D. Ordering Physician: Bayron Wells M.D.Results: Date of Service: 05/09/24Follow Up: Procedure(s): MM tomosynthesis screening LT Accession Number(s): [id number] cc: Bayron Wells M.D. Patient Name: YOKO RUTLEDGE MR#: [id number] : 1960 Exam Date: 05/09/2024 Ordering Doctor: DR Bayron Gibson RADIOLOGY REPORT PROCEDURE: MM TOMOSYNTHESIS SCREENING LT COMPARISON: MM TOMOSYNTHESIS SCREENING LT, 05/08/2023. INDICATIONS: Screening Calculator Name NCI Breast Cancer Risk Assessment Tool 5 Year Breast Cancer Risk n/a% Lifetime Breast Cancer Risk n/a% Personal Breast Cancer Yes, Invasive CA of Right, 56 Personal Ovarian Cancer No Treatments Right mastectomy Family Cancers Aunt-maternal with breast cancer at age 70; Aunt-paternal with breast cancer at age 70. LOCATION: [facility] BREAST COMPOSITION: There are scattered areas of fibroglandulardensity. FINDINGS: DIAGNOSTIC CATEGORY 1--NEGATIVE. NO CHANGE FROM COMPARISON ASSESSMENT. LEFT BREAST: No significant suspicious finding. RECOMMENDATIONS: ROUTINE MAMMOGRAM AND CLINICAL EVALUATION IN 12 MONTHS. PLEASE NOTE: A NORMAL MAMMOGRAM DOES NOT EXCLUDE THE POSSIBILITY OFBREAST CANCER. A CLINICALLY SUSPICIOUS PALPABLE LUMP SHOULD BE BIOPSIED. Dictated by: Darian Whatley MD on 05/09/2024 at 12:58 Approved by: Darian Whatley MD on 05/09/2024 at 12:59 Dictated By: Darian Whatley M.D. Signed By:05/09/24 1300 DD/ 1259 TD/TT: Repairer Finished Metal: Bayron Wells MD IMG BI PROCEDURES Final Result documented in this encounter Visit Diagnoses Not on filedocumented in this encounter Care Teams Shrimp Packer Relationship Specialty Start Date End Date Bayron Wells MD PCP - General Family Medicine 05/17/23 05/20/24 Bayron Wells MD [address] [place] [address] PCP - [facility] 12/29/2310/29 Bayron Wells MD [address] [place] [address] PCP - General Family Medicine 05/21/24 documented as of this encounter
--- OUTSIDE RECORDS SUMMARY | 2025-05-29 12:04 | XMS_ITS | Encounter Summary ---
Author Organization [facility] Address [address] [place] [address] Care Team Providers Care Broommaker Name Role Phone Bayron Wells MD Primary Care Provider [phone] Bayron Wells MD Unavailable Bayron Wells MD Primary Care Provider [phone] Encounter Details Date Type Department Care Team (Late st Contact Info) Description 01/11/2024 Orders Only [facility] [address] [place] [address] Viktoriya Fitzpatrick MD [address] [place] [address] Social History Tobacco Use Types Packs/Day Years [...] How often do you attend chur or temple services? Patient declined 11/08/2023 Do you belong to any clubs o r organizations such as alevism groups, unions, fraternal or athletic groups, or school groups? No [...] medical care, and heating? Patient declined 11/08/2023 [facility] - Occupational Stress Questionnaire Answer [...] place to sleep or slept in a jail (including now)? 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 Not on file Travel History Travel Start Travel End [place] 05/22/2025 05/26/2025 documented as of this encounter Plan of Treatment Upcoming Encounters Date Type Department Care Team (Late st Contact Info) Description 09/05/2025 11:00 AM EST Office Visit [facility] [address] [place] [address] Bayron Wells MD [address] [place] [address] documented as of this encounter Procedures Procedure Name Priority Date/Time Associated Diagnosis Comments ECHO TRANSTHORACIC W/ DOPPLER Routine 01/11/2024 2:35 PM EDT documented in this encounter Results * ECHO TRANSTHORACIC W/ DOPPLER (01/11/2024 2:35 PM EDT) Anatomical Region Laterality Modality Radiographic Kay ging us Viktoriya Fitzpatrick MD IMG XR PROCEDURES Final Result documented in this encounter Visit Diagnoses Not on filedocumented in this encounter Care Teams Broommaker Relationship Specialty Start Date End Date Bayron Wells MD PCP - General Family Medicine 05/17/23 05/20/24 Bayron Wells MD [address] [place] [address] PCP - [facility] 12/29/2310/29 Bayron Wells MD [address] [place] [address] PCP - General Family Medicine 05/21/24 documented as of this encounter
--- OUTSIDE RECORDS SUMMARY | 2025-05-29 12:04 | XMS_ITS | Encounter Summary ---
Author Organization [facility] Address [address] [place] [address] Care Team Providers Care Corner Block Cutter Name Role Phone Bayron Wells MD Primary Care Provider [phone] Bayron Wells MD Unavailable Bayron Wells MD Primary Care Provider [phone] Encounter Details Date Type Department Care Team (Late st Contact Info) Description 01/11/2024 Clinisync Result Encounter [facility] External Department Unsolicited Provider, Generic External Data Social History Tobacco Use Types Packs/Day Years [...] 11/08/2023 How often do you attend chur ch or oriental orthodox services? Patient declined 11/08/2023 Do you belong to any clubs o r organizations such as restorationist groups, unions, fraternal or athletic groups, or [...] medical care, and heating? Patient declined 11/08/2023 [facility] - Occupational Stress [...] place to sleep or slept in a intermediate (including now)? 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 Not on file Travel History Travel Start Travel End [place] 05/22/2025 05/26/2025 documented as of this encounter Plan of Treatment Upcoming Encounters Date Type Department Care Team (Late st Contact Info) Description 09/05/2025 11:00 AM EST Office Visit [facility] [address] [place] [address] Bayron Wells MD [address] [place] [address] documented as of this encounter Procedures Procedure Name Priority Date/Time Associated Diagnosis Comments CA ECHO DOPPLER COMPLETE 01/11/2024 1:48 PM EDT documented in this encounter Results * CA ECHO DOPPLER COMPLETE (01/11/2024 1:48 PM EDT) Anatomical Region Laterality Modality Other 01/11/2024 1:48 PM EDT Narrative 01/11/2024 1:50 PM EDT The [address] [address] Cardiology Report Signed Patient: YOKO RUTLEDGE MR#: [id number] : 1960 Acct:[id number] Age/Sex: 63 / F ADM Date: 01/11/24 Loc: CARD Attending Dr: OZZY DANIELS Ordering Physician: OZZY DANIELS Date of Service: 01/11/24 Procedure(s): CA echo doppler complete Accession Number(s): [id number] cc: OZZY DANIELS; Bayron Wells M.D. Patient Name: YOKO RUTLEDGE MR#: [id number] : 1960 Exam Date: 01/11/2024 Ordering Doctor: OZZY DANIELS ECHOCARDIOGRAM REPORT PROCEDURE: CA ECHO DOPPLER COMPLETE INDICATIONS: Dyspnea, Primary hypertension, h/o bladder cancer, h/o breast cancer, right mastectomy COMPARISON: None. DESCRIPTION: COMPLETE ECHOCARDIOGRAM Real-time transthoracic echocardiography with 2D, M-mode, spectral and color flow Doppler performed. QUALITY: Technical quality was good. 64 , 260#, BSA 2.19 m2 LEFT VENTRICLE: Normal chamber size. Thickened septal wall. LV EF: Global left ventricular systolic function is hyperdynamic; visually estimated ejection fraction is 65-70%. Unable to assess regional wall motion abnormalities. DIASTOLIC: Normal diastolic function. ATRIAL SEPTUM: Inadequately seen. LEFT ATRIUM: Normal chamber size. RIGHT ATRIUM: Normal chamber size. RIGHT VENTRICLE: Poorly seen; appears enlarged. Right ventricular systolic function appears preserved. TRICUSPID VALVE: Normal mobility and thickness. No stenosis with trivial regurgitation. Unable to assess right-sided pressures due to lack of measurable tricuspid regurgitation. MITRAL VALVE: Normal mobility and thickness. No evidence of mitral valve stenosis. Trivial mitral regurgitation. AORTIC VALVE: Normal trileaflet appearance. No visible sclerosis. Normal leaflet mobility. No evidence of aortic valve stenosis. No aortic regurgitation. AORTIC ROOT: Normal diameter and appearance. PULMONIC VALVE: Normal thickness and mobility. No stenosis. Trivial regurgitation. PERICARDIUM: Anterior free space; trivial effusion versus fat pad. IVC: Collapses with inspirations. CONCLUSION: 1. Global left ventricular systolic function is hyperdynamic; visually estimated ejection fraction 65 to 70% 2. The right ventricle is poorly seen; it appears enlarged with preserved systolic function 3. Normal diastolic function 4. Valves are poorly seen; no significant valvular abnormalities 5. Anterior free space; trivial effusion versus fat pad Adult Echocardiography Procedure Report Left Ventricle LVEDD (3.7 - 5.6 cm): 4.39 cm LVESD (2.2 - 4.0 cm): 2.81 cm LVIVS thickness (0.6 - 1.2 cm): 1.33 cm LVPW thickness (0.5 - 1.0 cm): 1.03 cm e': 0.09 m/s E - e': 10.85 LVOT Max Gradient: 4.88 mm[Hg] LVOT Area (cm2): 1.10 m/s Peak Velocity (LVOT): 1.10 m/s Mean Velocity (LVOT): 0.67 m/s LVOT Diameter 2.38 cm Left Atrium LA Volume Index (2D A2C): 22.74 ml/m2 Left Atrium Systolic Dimension: 3.82 cm Mitral Valve MV E to A Ratio: 1.08 Mitral Valve A-Wave Peak Velocity: 0.92 m/s Mitral Valve E-Wave Peak Velocity: 1.00 m/s Right Ventricle Aorta AO Root Diam: 3.60 cm Aortic Valve AoV Area (Peak Augustin): 3.07 cm2, 3.07 cm2 AoV Area (VTI): 3.67 cm2, 3.67 cm2 Peak Velocity(Antegrade Flow): 1.60 m/s Peak Gradient(Antegrade Flow): 10.18 mm[Hg] Mean Velocity(Antegrade Flow): 1.02 m/s Mean Gradient(Antegrade Flow): 4.88 mm[Hg] Velocity Time Integral: 29.41 cm Tricuspid Valve Pulmonic Valve Mean Gradient: 3.27 mm[Hg] Mean Velocity: 0.85 m/s Peak Velocity: 1.17 m/s, 1.15 m/s Peak Gradient: 5.49 mm[Hg], 5.27 mm[Hg] Right Atrium Right Atrium Systolic Pressure: 38.45 ml, 38.45 ml Dictated by: Kaylynn Feldman M.D. on 01/11/2024 at 13:44 Approved by: Kaylynn Feldman M.D. on 01/11/2024 at 13:48 Dictated By: Kaylynn Feldman M.D. Signed By: 01/11/24 1170 DD/ 1348 TD/TT: Print Journalist: Procedure Note Radiology, Radiologist, - 01/11/2024 [place] [address] Cardiology Report Signed Patient: YOKO RUTLEDGE AMR#: [id number] : 8Acct:[id number] Age/Sex: 63 / FADM Date: 01/11/24 Loc: CARD Attending Dr: OZZY DANIELS Ordering Physician: OZZY DANIELS Date of Service: 01/11/24 Procedure(s): CA echo doppler complete Accession Number(s): [id number] cc: OZZY DANIELS; Bayron Wells M.D. Patient Name: YOKO RUTLEDGE MR#: [id number] : 1960 Exam Date: 01/11/2024 Ordering Doctor: OZZY DANIELS ECHOCARDIOGRAM REPORT PROCEDURE: CA ECHO DOPPLER COMPLETE INDICATIONS: Dyspnea, Primary hypertension, h/o bladder cancer, h/obreast cancer, right mastectomy COMPARISON: None. DESCRIPTION: COMPLETE ECHOCARDIOGRAM Real-time transthoracic echocardiography with 2D, M-mode, spectral and color flow Dopplerperformed. QUALITY: Technical quality was good. 64 , 260#, BSA 2.19 m2 LEFT VENTRICLE: Normal chamber size. Thickened septal wall. LV EF: Global left ventricular systolic function is hyperdynamic;visually estimated ejection fraction is 65-70%. Unable to assess regional wallmotion abnormalities. DIASTOLIC: Normal diastolic function. ATRIAL SEPTUM: Inadequately seen. LEFT ATRIUM: Normal chamber size. RIGHT ATRIUM: Normal chamber size. RIGHT VENTRICLE: Poorly seen; appears enlarged. Right ventricularsystolic function appears preserved. TRICUSPID VALVE: Normal mobility and thickness. No stenosis withtrivial regurgitation. Unable to assess right-sided pressures due to lack of measurable tricuspid regurgitation. MITRAL VALVE: Normal mobility and thickness. No evidence of mitralvalve stenosis. Trivial mitral regurgitation. AORTIC VALVE: Normal trileaflet appearance. No visible sclerosis.Normal leaflet mobility. No evidence of aortic valve stenosis. No aortic regurgitation. AORTIC ROOT: Normal diameter and appearance. PULMONIC VALVE: Normal thickness and mobility. No stenosis. Trivial regurgitation. PERICARDIUM: Anterior free space; trivial effusion versus fat pad. IVC: Collapses with inspirations. CONCLUSION: 1. Global left ventricular systolic function is hyperdynamic; visually estimated ejection fraction 65 to 70% 2. The right ventricle is poorly seen; it appears enlarged with preserved systolic function 3. Normal diastolic function 4. Valves are poorly seen; no significant valvular abnormalities 5. Anterior free space; trivial effusion versus fat pad Adult Echocardiography Procedure Report Left Ventricle LVEDD (3.7 - 5.6 cm): 4.39 cm LVESD (2.2 - 4.0 cm): 2.81 cm LVIVS thickness (0.6 - 1.2 cm): 1.33 cm LVPW thickness (0.5 - 1.0 cm): 1.03 cm e': 0.09 m/s E - e': 10.85 LVOT Max Gradient: 4.88 mm[Hg] LVOT Area (cm2): 1.10 m/s Peak Velocity (LVOT): 1.10 m/s Mean Velocity (LVOT): 0.67 m/s LVOT Diameter 2.38 cm Left Atrium LA Volume Index (2D A2C): 22.74 ml/m2 Left Atrium Systolic Dimension: 3.82 cm Mitral Valve MV E to A Ratio: 1.08 Mitral Valve A-Wave Peak Velocity: 0.92 m/s Mitral Valve E-Wave Peak Velocity: 1.00 m/s Right Ventricle Aorta AO Root Diam: 3.60 cm Aortic Valve AoV Area (Peak Augustin): 3.07 cm2, 3.07 cm2 AoV Area (VTI): 3.67 cm2, 3.67 cm2 Peak Velocity(Antegrade Flow): 1.60 m/s Peak Gradient(Antegrade Flow): 10.18 mm[Hg] Mean Velocity(Antegrade Flow): 1.02 m/s Mean Gradient(Antegrade Flow): 4.88 mm[Hg] Velocity Time Integral: 29.41 cm Tricuspid Valve Pulmonic Valve Mean Gradient: 3.27 mm[Hg] Mean Velocity: 0.85 m/s Peak Velocity: 1.17 m/s, 1.15 m/s Peak Gradient: 5.49 mm[Hg], 5.27 mm[Hg] Right Atrium Right Atrium Systolic Pressure: 38.45 ml, 38.45 ml Dictated by: Kaylynn Feldman M.D. on 01/11/2024 at 13:44 Approved by: Kaylynn Feldman M.D. on 01/11/2024 at 13:48 Dictated By: Kaylynn Feldman M.D. Signed By:01/11/24 1350 DD/ 1348 TD/TT: Print Journalist: us Generic External Data Provider [facility] Final Result documented in this encounter Visit Diagnoses Not on filedocumented in this encounter Care Teams Corner Block Cutter Relationship Specialty Start Date End Date Bayron Wells MD PCP - General Family Medicine 05/17/23 05/20/24 Bayron Wells MD [address] [place] [address] PCP - [facility] 12/29/2310/29 Bayron Wells MD [address] [place] [address] PCP - General Family Medicine 05/21/24 documented as of this encounter
--- OUTSIDE RECORDS SUMMARY | 2025-05-29 12:04 | XMS_ITS | Clinical Summary ---
Author Organization [facility] Address [id number] [address] [place] [address] Care Team Providers Care Certified Ophthalmic Technician Name Role Phone Bayron Wells MD Primary Care Provider [phone] Allergies No known active allergies Medications olmesartan (BENICAR) 20 mg tabletIndication s:hypertension Take 20 mg by mouth daily Indications : HYPERTENSIO N. Active omeprazole (PriLOSEC) 40 mg capsule Take 40 mg by mouth 2 (two) times a day. Active phentermine 37.5 MG capsule Take 37.5 mg by mouth every morning. Active aspirin 81 mg Take 81 mg by mouth daily. Active diclofenac (VOLTAREN) 75 mg EC tablet 05/17/2017 Active Active Problems Problem Noted Date Diagnosed Date Obesity (BMI 35.0-39.9 without comorbidity) 04/01 Essential hypertension 04/12/2017 Arthritis 04/12/2017 Family History Medical History Relation Name Comments No Known Problems Brother Anemia Father Hypertension Mother Stroke Mother Heart disease Sister ALLI Relation Name Status Comments Brother Alive Father Mother Alive Sister ALLI Alive Social History Tobacco Use Types Packs/Day Years Used Date Smoking Tobacco: Former Alcohol Use Standard Drinks/Week Comments No 0 (1 standard drink = 0.6 oz pur e alcohol) Childcare Answer Date Recorded Childcare Unknown 04/10/2019 Employment Answer Date Recorded Employment Unknown 04/10/2019 Purpose - Life Answer Date Recorded Purpose and direction in life Unknown Comments No Sex and Gender Information Value Date Recorded Sex Assigned at Not on file Legal Sex Female 11:56 AM EDT Gender Identity Not on file Sexual Orientation Not on file Last Filed Vital Signs Vital Sign Reading Time Taken Comments Blood Pressure 130/80 09/14/2017 2:34 PM EST Pulse - - Temperature - - Respiratory Rate - - Oxygen Saturation - - Inhaled Oxygen Concentration - - Weight 101.6 kg (224 lb) 09/14/2017 2:34 PM EST Height 165.1 cm (5' 5 ) 09/14/2017 2:34 PM EST Body Mass Index 37.28 09/14/2017 2:34 PM EST Plan of Treatment Health Maintenance Due Date Last Done Comments Depression Screening 1970 Tobacco Screening 1970 Adult BMI Screening 1976 DTaP,Tdap and Td Vaccines (1 - Tdap) 1977 Zoster (Shingles) Vaccine (1 of 2) 2008 Fall Risk Screening 2023 Influenza Vaccine 06/30/2025 Medical Devices Not on file Insurance [employer] on file [employer] Care Teams Certified Ophthalmic Technician Relationship Specialty Start Date End Date Bayron Wells MD PCP - General 04/12/17
--- OUTSIDE RECORDS SUMMARY | 2025-05-29 12:04 | XMS_ITS | Encounter Summary ---
Author Organization [facility] Address [address] [place] [address] Care Team Providers Care Resources Representative Name Role Phone Bayron Wells MD Primary Care Provider [phone] Bayron Wells MD Unavailable Bayron Wells MD Primary Care Provider [phone] Encounter Details Date Type Department Care Team (Late st Contact Info) Description 12/04/2023 Clinisync Result Encounter [facility] External Department Unsolicited [...] often do you attend chur ch or shinto services? Patient declined 11/08/2023 Do you belong to any clubs o r organizations such as roman catholic groups, unions, fraternal or athletic groups, or [...] medical care, and heating? Patient declined 11/08/2023 [facility] - Occupational Stress [...] place to sleep or slept in a nursing home (including now)? 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 Not on file Travel History Travel Start Travel End [place] 05/22/2025 05/26/2025 documented as of this encounter Plan of Treatment Upcoming Encounters Date Type Department Care Team (Late st Contact Info) Description 09/05/2025 11:00 AM EST Office Visit [facility] [address] [place] [address] Bayron Wells MD [address] [place] [address] documented as of this encounter Procedures Procedure Name Priority Date/Time Associated Diagnosis Comments XR HAND 3+ VIEWS RIGHT 12/04/2023 3:36 PM EST documented in this encounter Results * XR hand 3+ views right (12/04/2023 3:36 PM EST) Anatomical Region Laterality Modality Upper Extremities, Hand Right Radiogra phic Imaging 12/04/2023 3:36 PM EST Narrative 12/04/2023 3:38 PM EST The [address] [place] [address] XRay Report Signed Patient: YOKO RUTLEDGE MR#: [id number] : 1960 Acct:[id number] Age/Sex: 63 / F ADM Date: 12/04/23 Loc: RAD Attending Dr: Long Crocker M.D. Ordering Physician: Long Crocker M.D. Date of Service: 12/04/23 Procedure(s): XR hand RT min 3V Accession Number(s): [id number] cc: Long Crocker M.D.; Bayron Wells M.D. The [place] [address] Patient Name: YOKO RUTLEDGE MRN: [id number] date: 1960 Sex: F Assigned Patient Location: [facility] Current Patient Location: [facility] Accession/Order Number: [id number] Exam Date: 12/04/2023 09:52 Report Date: 12/04/2023 15:36 At the request of: LONG CROCKER Procedure: XR hand RT min 3V EXAM: XR hand RT min 3V HISTORY: RIGHT HAND PAIN COMPARISON: Right hand study dated 11/05/2022 TECHNIQUE: 3 views of the right hand were obtained. FINDINGS: Previously noted fourth metacarpal fracture is no longer identified compatible with interval healing. No definite acute fracture or dislocation. Mild to moderate degenerative changes about the interphalangeal joints. Mild degenerative changes about the metacarpophalangeal joints. Moderate to marked degenerative changes about the first metacarpocarpal joint. Mild degenerative change at the joint space between the navicular and trapezium. Mild generalized soft tissue swelling suggested. XR/XR hand RT min 3V IMPRESSION: Right hand study demonstrates evidence of healed fracture of the fourth metacarpal when compared to the prior exam. Degenerative changes as described, overall slightly progressed compared to the prior exam. Follow-up as needed. Electronically authenticated by: JULIO SOLOMON Date: 12/04/2023 15:36 Dictated By: Julio Solomon M.D. Signed By: 12/04/231537 DD/ 35 TD/TT: Exploration Engineer: Procedure Note Radiology, Radiologist, MD - 12/05/2023 [place] [address] XRay Report Signed Patient: YOKO RUTLEDGE AMR#: [id number] : 1960cct:[id number] Age/Sex: 63 / FADM Date: 12/04/23 Loc: RAD Attending Dr: Long Crocker M.D. Ordering Physician: Long Crocker M.D. Date of Service: 12/04/23 Procedure(s): XR hand RT min 3V Accession Number(s): [id number] cc: Long Crocker M.D.; Bayron Wells M.D. The [place] [id number] Patient Name: YOKO RUTLEDGE MRN: [facility]:[id number] date: 1960 Sex: F Assigned Patient Location: [facility] Current Patient Location: [facility] Accession/Order Number: [id number] Exam Date: 12/04/2023 09:52 Report Date: 12/04/2023 15:36 At the request of: LONG CROCKER Procedure: XR hand RT min 3V EXAM: XR hand RT min 3V HISTORY: RIGHT HAND PAIN COMPARISON: Right hand study dated 11/05/2022 TECHNIQUE: 3 views of the right hand were obtained. FINDINGS: Previously noted fourth metacarpal fracture is no longeridentified compatible with interval healing. No definite acute fracture ordislocation. Mild to moderate degenerative changes about the interphalangeal joints.Mild degenerative changes about the metacarpophalangeal joints. Moderate tomarked degenerative changes about the first metacarpocarpal joint. Milddegenerative change at the joint space between the navicular and trapezium. Mild generalized soft tissue swelling suggested. XR/XR hand RT min 3V IMPRESSION: Right hand study demonstrates evidence of healed fracture of the fourth metacarpal when compared to the prior exam. Degenerative changes as described, overall slightly progressed compared tothe prior exam. Follow-up as needed. Electronically authenticated by: JULIO SOLOMON Date: 12/04/2023 15:36 Dictated By: Julio Solomon M.D. Signed By:12/04/23 1538 DD/ 1536 TD/TT: Exploration Engineer: us Generic External Data Provider IMG XR PROCEDURES Final Result documented in this encounter Visit Diagnoses Not on filedocumented in this encounter Care Teams Resources Representative Relationship Specialty Start Date End Date Bayron Wells MD PCP - General Family Medicine 05/17/23 05/20/24 Bayron Wells MD [address] [place] [address] PCP - [facility] 12/29/2310/29 Bayron Wells MD [address] [place] [address] PCP - General Family Medicine 05/21/24 documented as of this encounter
--- OUTSIDE RECORDS SUMMARY | 2025-05-29 12:04 | XMS_ITS | Encounter Summary ---
Author Organization [facility] Address [address] [place] [address] Care Team Providers Care Redrying Machine Operator Name Role Phone Bayron Wells MD Primary Care Provider [phone] Bayron Wells MD Unavailable Bayron Wells MD Primary Care Provider [phone] Encounter Details Date Type Department Care Team (Late st Contact Info) Description 01/16/2024 Orders Only [facility] [address] [place] [address] Bayron Wells MD [address] [place] [address] [address] Social History Tobacco Use Types Packs/Day Years [...] How often do you attend chur or spiritism services? Patient declined 11/08/2023 Do you belong [...] medical care, and heating? Patient declined 11/[facility] Answer Date [...] file Travel History Travel Start Travel End [place] 05/22/2025 05/26/2025 documented as of this encounter Plan of Treatment Upcoming Encounters Date Type Department Care Team (Late st Contact Info) Description 09/05/2025 11:00 AM EST [facility] [address] [place] [address] Bayron Wells MD [address] [place] [address] documented as of this encounter Visit Diagnoses Not on filedocumented in this encounter Care Teams Redrying Machine Operator Relationship Specialty Start Date End Date Bayron Wells MD PCP - General Family Medicine 05/17/23 05/20/24 Bayron Wells MD [address] [place] [address] PCP - [facility] 12/29/2310/29 Bayron Wells MD [address] [place] [address] PCP - General Family Medicine 05/21/24 documented as of this encounter
--- OUTSIDE RECORDS SUMMARY | 2025-05-29 12:05 | XMS_ITS | Clinical Summary ---
Author Organization [facility] Healthcare Address [address] [place] [address] Care Team Providers Care Supervisor [employer] Name Role Phone Bayron Wells MD Primary Care Provider [phone] Allergies No known active allergies Medications aspirin 81 MG EC tablet Take 1 tablet by mouth in the morning. Active cyclobenzaprine (Flexeril) 10 MG tablet Take 10 mg by mouth 3 (three) times a day as needed for muscle spasms. Active azelastine (Optivar) 0.05 % ophthalmic solution 1 drop in the morning and 1 drop before bedtime. Active nabumetone (Relafen) 750 MG tablet Take 750 mg by mouth in the morning. Active olmesartan (Benicar) 40 MG tabletIndications :Essential hypertension Take 1 tablet (40 mg) by mouth Daily 90 tablet 3 4 Active pantoprazole (ProtoNix) 40 MG EC tabletIndications :GERD without esophagitis Take 1 tablet (40 mg) by mouth in the morning and 1 tablet (40 mg) before bedtime. 180 tablet 3 4 Active furosemide (Lasix) 40 MG tabletIndications :Bilateral edema of lower extremity Take 1 tablet (40 mg) by mouth Daily as needed (Edema) 5 Active temazepam (Restoril) 30 MG capsuleIndication s:Primary insomnia TAKE 1 CAPSULE AT BEDTIME 30 capsule 1 5 Active potassium chloride CR (Klor-Con M10) 10 MEQ ER tabletIndications :Bilateral edema of lower extremity Take 1 tablet (10 mEq) by mouth Daily 90 tablet 3 5 Active phentermine (Adipex-P) 37.5 MG tabletIndications :Class 3 severe obesity due to excess calories with serious comorbidity and body mass index (BMI) of 40.0 to 44.9 in adult ([facility]) Take 1 tablet (37.5 mg) by mouth in the morning. Take before meals. 30 tablet 5 06/28/20 25 Active phentermine (Adipex-P) 37.5 MG tabletIndications :Class 3 severe obesity due to excess calories with serious comorbidity and body mass index (BMI) of 45.0 to 49.9 in adult ([facility]) Take 1 tablet (37.5 mg) by mouth in the morning. Take before meals. 30 tablet 5 05/29/20 25 Discontinu ed(Reorder ) Active Problems Problem Noted Date Diagnosed Date Encounter for long-term current use of medicatio n 05/29/2025 Metabolic dysfunction-associated steatohepatitis (MASH) 12/04/2024 Abnormal liver function 11/26/2024 Assessment & Plan (11/26/2024 11:23 AM EST): Recent LFTs elevated and check US liver. Prediabetes 05/21/2024 Medicare annual wellness visit, subsequent 05/21 Assessment & Plan (05/29/2025 11:45 AM EDT): Due for labs. Discussed proper diet and regular aerobic exercise. Need aerobic exercise 5-6 days a week for 30 minutes at a time. Smaller portions and limit total calories. Colonoscopy every 10 years. Tetanus every 10 years. Advised not to smoke. Assessment & Plan (05/21/2024 2:06 PM EDT): Due for labs. Discussed proper diet and regular aerobic exercise. Need aerobic exercise 5-6 days a week for 30 minutes at a time. Smaller portions and limit total calories. Colonoscopy every 10 years. Tetanus every 10 years. Advised not to smoke. Discussed daily Aspirin therapy. History of tobacco use 01/02/2024 Dyslipidemia 01/02/2024 Obstructive sleep apnea syndrome 01/02/2024 Bilateral edema of lower extremity 11/15/2023 Assessment & Plan (11/26/2024 11:23 AM EST): Edema controlled with medication and use PRN. Elevate legs PRN. Assessment & Plan (11/15/2023 2:28 PM EST): Edema controlled with medication and use PRN. Elevate legs PRN. GERD without esophagitis 11/15/2023 Assessment & Plan (11/26/2024 11:24 AM EST): Symptoms controlled with protonix and continue. Assessment & Plan (11/15/2023 2:28 PM EST): Symptoms controlled with protonix and continue. Bladder cancer 08/22/2023 Assessment & Plan (11/26/2024 11:23 AM EST): Cancer stable and follow up with urology. Assessment & Plan (11/15/2023 2:28 PM EST): Cancer stable and follow up with urology. 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 Primary osteoarthritis of left hip 08/22/2023 Primary osteoarthritis of left knee 08/22/2023 Oral lesion 08/22/2023 Mixed incontinence 05/05/2023 Osteoarthritis 06/05/2020 Class 3 severe obesity due t o excess calories with serious comorbidity and body mass index (BMI) of 40.0 to 44.9 in adult 04/28/2017 Assessment & Plan (03/19/2025 11:23 AM EDT): Patient doing well with adipex and lost 21 pounds since starting. Tolerating well with only mild dry mouth. Continue with dietary changes and less calories. Need to limit snacking and smaller portions. Continue healthier choices. Need regular aerobic exercise 30 minutes at a time 5-6 days a week. Refill for another month. OARRS reviewed. Continue meds as prescribed. If develop new or worsening symptoms contact office. Assessment & Plan (01/17/2025 10:35 AM EDT): Patient doing well with adipex and lost 12 pounds since starting. Tolerating well with only mild dry mouth. Continue with dietary changes and less calories. Need to limit snacking and smaller portions. Continue healthier choices. Need regular aerobic exercise 30 minutes at a time 5-6 days a week. Refill for another month. OARRS reviewed. Continue meds as prescribed. If develop new or worsening symptoms contact office. Assessment & Plan (12/18/2024 10:21 AM EST): Patient doing well with adipex and lost 6 pounds in first month. Tolerating well with only mild dry mouth. Continue with dietary changes and less calories. Need to limit snacking and smaller portions. Continue healthier choices. Need regular aerobic exercise 30 minutes at a time 5-6 days a week. Refill for second month. OARRS reviewed. Continue meds as prescribed. If develop new or worsening symptoms contact office. Assessment & Plan (11/26/2024 11:23 AM EST): Discussed proper diet and regular aerobic exercise. Recommend Weight Watchers and need to limit calories and smaller portions. Need to increase activity and regular aerobic exercise several days a week for 30 minutes at a time. Assessment & Plan (11/15/2023 2:29 PM EST): Discussed proper diet and regular aerobic exercise. Recommend Weight Watchers and need to limit calories and smaller portions. Need to increase activity and regular aerobic exercise several days a week for 30 minutes at a time. Essential hypertension 04/12/2017 Assessment & Plan (03/19/2025 11:23 AM EDT): BP controlled and monitor PRN. Assessment & Plan (01/17/2025 10:35 AM EDT): BP controlled and monitor PRN. Assessment & Plan (12/18/2024 10:21 AM EST): BP controlled and monitor PRN. Assessment & Plan (11/26/2024 11:23 AM EST): BP controlled and monitor PRN. Assessment & Plan (11/15/2023 2:28 PM EST): BP controlled and monitor PRN. Resolved Problems Problem Noted Date Diagnosed Date Resolved Date Need for malaria prophylaxis 05/21/2024 11/26/2024 Aneurysm of coronary vessels 01/02/2024 05/21/2024 Overview (01/24/2024): Last Assessment & Plan: stable Chronic neck pain 11/15/2023 05/21/2024 Lesion of buccal mucosa 08/23/202310/30 Malignant neoplasm of latera l wall of urinary bladder 08/22/2023 11/15/2023 Contusion of right knee 08/22/202304/30 Pain of left calf 08/22/2023 08/22/2023 Right knee pain 08/22/2023 08/22/2023 Status post left knee replacement 08/22/2023 08/22/2023 Varus deformity, not elsewhe re classified, left knee 08/22/2023 11/15/2023 Abnormal urinary stream 05/05/202307/31 Former smoker 05/05/2023 08/22/2023 History of UTI 05/05/2023 08/22/2023 Infection due to Enterococcus 05/05/2023 08/22/2023 Microscopic hematuria 05/05/20232022 Overactive bladder 05/05/2023 Vaginal atrophy 05/05/2023 08/22/2023 Malignant neoplasm of disability representative ior wall of urinary bladder 02/22/2023 11/15/2023 Overview (08/22/2023): Added automatically from request for surgery [id number] Palpitations 11/17/2021 11/15/2023 Cardiovascular stress test abnormal 06/05/2020 11/15/2023 Dyspnea 06/05/2020 11/15/2023 Obesity 06/05/2020 08/22/2023 Cancer of breast, intraductal 06/13/2017 08/22/2023 Encounter for screening for osteoporosis 06/13/2017 08/22/2023 Arthritis 04/12/2017 08/22/2023 Encounters Date Type Department Care Team Description 05/29/2025 11:00 AM EDT Office Visit [facility] [address] [place] [address] Bayron Wells MD Medicare annual wellness visit, subsequent (Primary Dx); Dyslipidemia ; Essential hypertension ; Prediabetes; Encounter for long-term current use of medication; Class 3 severe obesity due to excess calories with serious comorbidity and body mass index (BMI) of 40.0 to 44.9 in adult ([facility]) 05/29/2025 Bamboo flowsheet [facility] [address] [place] [address] Bayron Wells MD 05/28/2025 Travel 04/16/2025 Refill [facility] [address] [place] [address] Bayron Wells MD Class 3 severe obesity due to excess calories with serious comorbidity and body mass index (BMI) of 45.0 to 49.9 in adult ([facility]) 03/19/2025 10:30 AM EDT Office Visit [facility] [address] [place] [address] Bayron Wells MD Essential hypertension (Primary Dx); Class 3 severe obesity due to excess calories with serious comorbidity and body mass index (BMI) of 45.0 to 49.9 in adult ([facility]) 03/19/2025 Bamboo flowsheet [facility] [address] [place] [address] Bayron Wells MD 03/16/2025 Travel 03/11/2025 Refill [facility] [address] [place] [address] Bayron Wells MD Class 3 severe obesity due to excess calories with serious comorbidity and body mass index (BMI) of 45.0 to 49.9 in adult ([facility]) from Last 3 Months Immunizations Immunization Administration Dates Next Due BCG 10/26/2022,,10/12/2022,07/26/20 22,07/06/2022,06/29/2022,06/22/2022,03/02,02/23/2022,02/16/2022,02/09/2022,,01/26/2022,10/27/2021,10/19/2021 ,10/13/2021,10/06/2021,09/29/2021, 021 Influenza, Unspecified 08/04/2022,2020,07/30/2021,07/18/20 18 Pneumococcal Polysaccharide PPSV23 12/17/2021, Family History Medical History Relation Name Comments Arthritis Brother 1 No Cancer Brother 1 No Hearing loss Brother 1 No Cancer Brother 2 German Anemia Father Hearing loss Mother No Heart failure Mother No Hypertension Mother No Stroke Mother No Heart failure Sister Breast cancer Neg Hx Colon cancer Neg Hx Melanoma Neg Hx Ovarian cancer Neg Hx Relation Name Status Comments Brother 1 No Alive Brother 2 German Father Mother No Alive Sister Alive Social History Tobacco Use Types Packs/Day Years Used Date Smoking Tobacco: Former Cigarettes 1 15 Q uit: 03/18/1979 Smokeless Tobacco: Never Tobacco Cessation:Counseling Given: Not Answered Alcohol Use Standard Drinks/Week Comments Not Currently [...] How often do you attend chur or congregation services? 1 to 4 times per year 11/25/2024 Do you belong to any clubs o r organizations such as christianity groups, unions, fraternal or athletic groups, or [...] Recorded Patient Health Questionnaire-2 Score 0 05/29/2025 [facility] Rule of Occupat ional Health - Occupational Stress [...] place to sleep or slept in a alf (including now)? No 11/08/2023 Housing Stability Vital Sign Answer Dashawn e Recorded In the last 12 months, was t here a time when you were not able to pay the mortgage or rent on time? No 11/25/2024 In the past 12 months, how m any times have you moved where you were living? 0 11/25/2024 At any time in the past 12 m [facility], were you homeless or living in a alf (including now)? 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 on file Travel History Travel Start Travel End [place] 05/22/2025 05/26/2025 Last Filed Vital Signs Vital Sign Reading [...] Mass Index 43.43 05/29/2025 11:06 AM EDT Plan of Treatment Upcoming Encounters Date Type Department Care Team (Late st Contact Info) Description 09/05/2025 11:00 AM EST Office Visit [facility] [address] [place] [address] Bayron Wells MD [address] [place] [id number] Health Maintenance Due Date Last Done Comments CT Colonography 1960 FIT 1960 FOBT 1960 Sigmoidoscopy 1960 Pneumococcal Vaccine: 65+ Ye ars (2 of 2 - PCV) 12/17/2022 12/17/2021, 07/30/2015 Influenza Vaccine (#1) 2025 , 08/04/2022, 08/19/2021, Additional history exists FIT-DNA 01/07/2027 01/08/2024, 12/17/2020 Colonoscopy 09/17/2034 09/17/2024, 08/30, 03/19/2024, Additional history exists Colorectal Cancer Screening 09/17/2034 Mammogram Discontinued 05/09/2024 Procedures Procedure Name Priority Date/Time Associated Diagnosis Comments BI MAMMOGRAM SCREENING TOMOSYNTHESIS LEFT 05/09/2024 12:59 PM EDT from Last 3 Months or Most Recently Relevant to Health Maintenance Results * Left screening mammogram with tomosynthesis (05/09/2024 12:59 PM EDT) Anatomical Region Laterality Modality Breast Left Mammography 05/09/2024 12:5 9 PM EDT Narrative 05/09/2024 1:00 [place] [address] Mammography Report Signed Patient: YOKO RUTLEDGE MR#: [id number] : 1960 Acct:[id number] Age/Sex: 63 / F ADM Date: 05/09/24 Loc: MAMMO Attending Dr: Bayron Wells M.D. Ordering Physician: Bayron Wells M.D. Results: Date of Service: 05/09/24 Follow Up: Procedure(s): MM tomosynthesis screening LT Accession Number(s): [id number] cc: Bayron Wells M.D. Patient Name: YOKO RUTLEDGE MR#: [id number] : 1960 Exam Date: 05/09/2024 Ordering Doctor: DR Bayron Wells . RADIOLOGY REPORT PROCEDURE: MM TOMOSYNTHESIS SCREENING LT [...] breast cancer at age 68. LOCATION: [facility] BREAST COMPOSITION: There are scattered areas of [...] Whatley M.D. Signed By: 05/09/24 1300 DD/ 58 TD/TT: Stone Trimmer: Procedure Note Radiology, Radiologist, - 05/09/2024 [facility] [place] [id number] Mammography Report Signed Patient: YOKO RUTLEDGE AMR#: [id number] : 8Acct:[id number] Age/Sex: 63 / FADM Date: 05/09/24 Loc: MAMMO Attending Dr: Bayron Wells M.D. Ordering Physician: Bayron Wells M.D.Results: Date of Service: 05/09/24Follow Up: Procedure(s): MM tomosynthesis screening LT Accession Number(s): [id number] cc: Bayron Wells M.D. Patient Name: YOKO RUTLEDGE MR#: [id number] : 1960 Exam Date: 05/09/2024 Ordering Doctor: [...] breast cancer at age 68. LOCATION: [facility] BREAST COMPOSITION: There are scattered areas of [...] Darian Whatley M.D. Signed By:05/09/24 1300 DD/ 58 TD/TT: Stone Trimmer: Bayron Wells MD IMG BI PROCEDURES Final Result from Last 3 Months or Most Recently Relevant to Health Maintenance Insurance MEDICARE [employer] Care Teams Supervisor [employer] Relationship Specialty Start Date End Date Bayron Wells MD [address] [place] [address] PCP - General Family Medicine 05/21/24
--- OUTSIDE RECORDS SUMMARY | 2025-05-29 12:05 | XMS_ITS | Encounter Summary ---
Author Organization [facility] Address [address] [place] [address] Care Team Providers Care Sales Service Assistant Name Role Phone Bayron Wells MD Primary Care Provider [phone] Encounter Details Date Type Department Care Team ([facility] Contact Info) Description 12/04/2024 Orders Only [facility] [address] [place] [address] Bayron Wells MD [address] [place] [place] [address] Social History Tobacco Use Types Packs/Day Years [...] 11/25/2024 How often do you attend chur ch or roman catholic services? 1 to 4 times per year 11/25/2024 Do you belong to any clubs o r organizations such as anglican groups, unions, fraternal or athletic groups, or [...] care, and heating? Not very hard 11/25/2024 [facility] - Occupational Stress [...] place to sleep or slept in a usp (including now)? No 11/08/2023 Housing Stability Vital Sign Answer Dashawn e Recorded In the last 12 months, was t here a time when you were not able to pay the mortgage or rent on time? No 11/25/2024 In the past 12 months, how m any times have you moved where you were living? 0 11/25/2024 At any time in the past 12 m [facility], were you homeless or living in a usp (including now)? 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 on file Travel History Travel Start Travel End [place] 05/22/2025 05/26/2025 documented as of this encounter Plan of Treatment Upcoming Encounters Date Type Department Care Team (Late st Contact Info) Description 09/05/2025 11:00 AM EST Office Visit [facility] [address] [place] [address] Bayron Wells MD [address] [place] [address] documented as of this encounter Visit Diagnoses Not on filedocumented in this encounter Care Teams Sales Service Assistant Relationship Specialty Start Date End Date Bayron Wells MD [address] [place] [address] PCP - General Family Medicine 05/21/24 documented as of this encounter
--- OUTSIDE RECORDS SUMMARY | 2025-05-29 12:05 | XMS_ITS | Clinical Summary ---
Author Organization [facility] Address [address] [place] [address] Care Team Providers Care Test Bore Helper Name Role Phone Bayron Wells MD Primary Care Provider [phone] Eliseo Zelaya MD Unavailable Allergies Active Allergy Reactions Criticality Noted Date Comments Oxycodone-Acetaminophen Hives,Headache Medium 02/23/20 23 Medications aspirin 81 mg EC tablet Take 81 mg by mouth in the morning. 07/07/2021 Active olmesartan (BENIcar) 20 mg tablet Take 40 mg by mouth in the morning. 05/18/2009 Active calcium carb-vitamin D3-vit K2 600 mg-1,000 unit-90 mcg tablet 1 (one) time each day at the same time. Active pantoprazole (ProtoNix) 40 mg EC tablet Take 40 mg by mouth before breakfast. 07/07/2021 Active solifenacin (VESIcare) 10 mg tablet Take 10 mg by mouth in the morning. Active nabumetone (Relafen) 750 mg tablet Take 750 mg by mouth in the morning. Active hyoscyamine (Anaspaz,Levsin ) 0.125 mg tabletIndicatio ns:Bladder spasm Take 1 tablet (0.125 mg) by mouth every 6 (six) hours if needed for cramping for up to 5 days. 20 tablet 03/13/2023 Active cyclobenzaprine (Flexeril) 10 mg tablet Take 10 mg by mouth if needed in the morning, at noon, and at bedtime. 09/16/2023 Active temazepam (Restoril) 30 mg capsule if needed at bedtime. 09/18/2023 Active potassium chloride CR (Klor-Con) 10 mEq ER tablet Take 10 mEq by mouth in the morning. Active furosemide (Lasix) 20 mg tablet Take 20 mg by mouth. Active Active Problems Problem Noted Date Diagnosed Date Prediabetes 05/21/2024 HX: breast cancer 02/09/2024 02/09/2024 Sinus tachycardia 02/09/2024 Assessment & Plan (02/09/2024 12:16 PM EDT): Noted sinus tachycardia with occasional PACs and PVCs- will start toprol 25 mg daily for management D/W pt to call office for low b/p, fatigue, lightheadedness/dizziness. Or any concerns Aneurysm of coronary vessels 01/02/2024 Assessment & Plan (01/02/2024 11:33 AM EST): stable Mixed dyslipidemia 01/02/2024 History of tobacco use 01/02/2024 Obstructive sleep apnea syndrome 01/02/2024 01/02/2024 Bilateral edema of lower extremity 11/15/2023 01/02/2024 Overview (01/02/2024): Last Assessment & Plan: Edema controlled with medication and use PRN. Elevate legs PRN. Chronic neck pain 11/15/2023 01/02/2024 GERD without esophagitis 11/15/2023 024 Overview (01/02/2024): Last Assessment & Plan: Symptoms controlled with protonix and continue. Contusion of right knee 08/22/2023 01/02/20 Equinus deformity of right foot 08/22/2023 01/02/2024 Degenerative arthritis of me tacarpophalangeal joint of right thumb 08/22/2023 01/02/2024 Malignant neoplasm of centra l portion of right female breast 08/22/2023 01/02/2024 Oral lesion 08/22/2023 01/02/2024 Primary osteoarthritis of left hip 08/22/2023 01/02/2024 Primary osteoarthritis of left knee 08/22/2023 01/02/2024 Abnormal urinary stream 05/05/2023 05/05/20 23 Former smoker 05/05/2023 05/05/2023 History of UTI 05/05/2023 05/05/2023 Infection due to Enterococcus 05/05/2023 Microscopic hematuria 05/05/2023 05/05/2023 Mixed incontinence 05/05/2023 05/05/2023 Overactive bladder 05/05/2023 05/05/2023 Primary malignant neoplasm 05/05/202305/05 Urinary tract infection 05/05/2023 05/05/20 23 Vaginal atrophy 05/05/2023 05/05/2023 Malignant neoplasm of posterior wall of urinary bladder 02/22/2023 Overview (02/22/2023): Added automatically from request for surgery [id number] Intermittent palpitations 11/17/20212022 Assessment & Plan (01/02/2024 1:17 PM EST): 2-3 day holter monitor today to assess for any arrythmias, PVC burden Check BMP and mag level today to assess electrolyte level She may benefit from beta neal dependent upon holter results Cardiovascular stress test abnormal 06/05/2020 05/05/2023 Dyspnea 06/05/2020 05/05/2023 Assessment & Plan (01/02/2024 11:34 AM EST): C/O worsening SOB with exertion and edema, will check echocardiogram to assess cardiac function, RV function and rt sided pressures, valvular function Osteoarthritis 06/05/2020 05/05/2023 Cancer of breast, intraductal 06/13/2017 Pre-operative cardiovascular examination 017 05/05/2023 Assessment & Plan (02/09/2024 12:35 PM EDT): RCRI= 1 points Class II Risk 6.0 % 30-day risk of , VT, or cardiac arrest From a cardiac perspective pt may proceed with colonoscopy, she is a low risk for a low risk procedure. She may hold Aspirin if absolutely needed. Please monitor hemodynamics carefully and prevent any major fluid shifts. This is good for 6 months Obesity (BMI 35.0-39.9 without comorbidity) 04/0105/05/2023 Morbid obesity 04/28/2017 01/02/2024 Overview (01/02/2024): Last Assessment & Plan: Discussed proper diet and regular aerobic exercise. Recommend Weight Watchers and need to limit calories and smaller portions. Need to increase activity and regular aerobic exercise several days a week for 30 minutes at a time. Essential hypertension 04/12/2017 Assessment & Plan (02/09/2024 12:18 PM EDT): Hypertension is well controlled Continue olmesartan, and start toprol Renal function stable Assessment & Plan (01/02/2024 11:33 AM EST): Hypertension is well controlled currently 124/80 Continue olmesartan 40 mg daily. Depending upon holter monitor result she may benefit from a beta neal for frequent PVCs and palpitations Arthritis 04/12/2017 05/05/2023 Abnormal mammogram 12/27/2012 05/05/2023 Immunizations Immunization Administration Dates Next Due Moderna SARS-CoV-2 Vaccination 08/20/2021,2020 Family History Medical History Relation Name Comments Coronary artery disease Brother Hypertension Brother Atrial fibrillation Mother Mother Hypertension Mother Mother pacemaker in situ Sister Relation Name Status Comments Brother Mother Mother Sister Social History Tobacco Use Types Packs/Day Years Used Date Smoking Tobacco: Former Cigarettes 1 40 0 10/30/1976 - 10/30/2016 Passive Smoke Exposure: Never Smokeless Tobacco: Never Tobacco Cessation:Counseling Given: Not Answered Alcohol Use Standard Drinks/Week Comments Yes 0 (1 standard drink = 0.6 oz pur e alcohol) socially PHQ-2 Answer Date Recorded Patient Health Questionnaire-2 Score 0 04/04/2023 [place] Safety & Environment Answer Date Rec orded Fear of Current or Ex-Partner Not on file 02 / Emotionally Abused Not on file 12/21/2023 Physically Abused Not on file 12/21/2023 Sexually Abused Not on file 12/21/2023 Physically or Sexually Abused Not on file Comments No Sex and Gender Information Value Date Recorded Sex Assigned at Female 02/22/2023 9:50 AM EDT Legal Sex Female 10:47 PM EDT Gender Identity Female 02/22/2023 9:50 AM EDT Sexual Orientation Don't know 02/22/2023 9: 50 AM EDT Last Filed Vital Signs Vital Sign Reading Time Taken Comments Blood Pressure 110/76 08/12/2024 11:11 AM EDT Pulse 61 08/12/2024 11:11 AM EDT Temperature 36 C (96.8 F) 03/19/2024 2:15 PM EDT Respiratory Rate 19 03/19/2024 2:15 PM EDT Oxygen Saturation 97% 08/12/2024 11:11 AM EDT Inhaled Oxygen Concentration - - Weight 124 kg (274 lb) 10/16/2024 2:57 PM EST Height 162.6 cm (5' 4 ) 08/12/2024 11:11 AM EDT Body Mass Index 47.03 08/12/2024 11:11 AM EDT Plan of Treatment Health Maintenance Due Date Last Done Comments CT Colonography 1958 Diabetes: Hemoglobin A1C 1958 FIT-DNA 1960 FOBT 1960 Sigmoidoscopy 1960 Depression Screening 1970 Adult Tetanus 1980 Zoster Vaccines (1 of 2) 2008 Pneumococcal Vaccine: 50+ Years (2 of 2 - PCV) 12/17/2022 12/17/2021, 07/30/2015 Fall Risk Screening 2023 COVID-19 Vaccine ( season) 2024 09/02/2022, 08/20/2021, 08/20/2021, Additional history exists FIT 01/07/2025 01/08/2024 Influenza Vaccine (#1) 2025 , 08/04/2022, 08/19/2021, Additional history exists Colonoscopy 03/19/2034 03/19/2024, 03/19/2024 Colorectal Cancer Screening 03/19/2034 Mammogram Discontinued 05/09/2024 HIB Vaccines Aged Out No longer eligi ble based on patient's age to complete this topic HPV Vaccines Aged Out No longer eligi ble based on patient's age to complete this topic IPV Vaccines Aged Out No longer eligi ble based on patient's age to complete this topic Meningococcal B Vaccine Aged Out No l onger eligible based on patient's age to complete this topic Meningococcal Vaccine Aged Out No marie suzie eligible based on patient's age to complete this topic Rotavirus Vaccines Aged Out No longer eligible based on patient's age to complete this topic Procedures Procedure Name Priority Date/Time Associated Diagnosis Comments DIAGNOSTIC COLONOSCOPY Routine 03/19/2024 1:10 PM EDT Adenomatous polyp of colon, unspecified part of colon from Last 3 Months or Most Recently Relevant to Health Maintenance Results * Diagnostic Colonoscopy w EMR (03/19/2024 1:10 PM EDT) Anatomical Region Laterality Modality Endoscopy Narrative 03/20/2024 11:42 AM EDT Table formatting from the original result was not included. Colonoscopy Procedure Note Procedure: Colonoscopy with polypectomy and EMR Indications: This is a 56-year-old female who recently underwent colonoscopy 3 weeks ago on 02/13/2024 found to have cecal polyps, biopsies were obtained and revealed tubular adenoma. Presenting today for colonoscopy with possible EMR. Sedation: General Attending Physician: Jenn Thompson MD Wax Pumper: Cirilo Anguiano MD (Fellow) Procedure Details Informed consent was obtained for the procedure, including sedation. Risks of perforation, hemorrhage, adverse drug reaction and aspiration were discussed. The patient was placed in the left lateral decubitus position. The patient was monitored continuously with ECG tracing, pulse oximetry, blood pressure monitoring, and direct observations. A rectal examination was performed. The colonoscope was inserted into the rectum and advanced under direct vision to the cecum, which was identified by the ileocecal valve and appendiceal orifice. A careful inspection was made as the colonoscope was withdrawn, including a retroflexed view of the rectum; findings and interventions are described below. Appropriate photodocumentation was obtained. Findings: Normal rectal exam. Normal cecum, ileocecal valve and appendiceal orifice. One small polyp 3 mm in dimension was identified in the cecum, removed with cold snare polypectomy and retrieved. Two small polyps, 3 mm in dimension were identified in the ascending colon removed with cold snare and retrieved. One large polyp, 15 mm in dimension was found in the ascending colon, The polyp was sessile. Preparations were made for mucosal resection. 10 mL of Eleview was injected with adequate lift of the lesion from the muscularis propria. Hot Snare mucosal resection was performed. Resection was done in piecemeal fashion. Resection and retrieval were complete. Resected tissue margins were examined and clear of polyp tissue. The edge of the polypectomy site was ablated by soft coagulation with the tip of the snare. To prevent bleeding after the polypectomy and to close the mucosal defect, two hemostatic clips were successfully placed. There was no bleeding at the end of the procedure. Another large polyp, 12 mm in dimension was found in the ascending colon, distal to the large poly. The polyp was sessile. Preparations were made for mucosal resection. Eleview was injected with adequate lift of the lesion from the muscularis propria. Snare mucosal resection was performed. Resection was done in piecemeal fashion. Retrieval was complete via Barros net. Resected tissue margins were examined and clear of polyp tissue. The edge of the polypectomy site was ablated by soft coagulation with the tip of the snare. To prevent bleeding after the polypectomy and to close the mucosal defect, two hemostatic clips were successfully placed. There was no bleeding at the end of the procedure. Tattoo was placed on the opposite wall of the polyps. Quality of colonic prep: fair Withdrawal time: 54 minutes Procedure Events Event Event Time CLN SCOPE IN 03/19/2024 12:01 PM CLN CECUM REACHED 03/19/2024 12:05 PM CLN SCOPE OUT 03/19/2024 1:01 PM Specimens: ID Type Source Tests Collected by Time A : small ascending cln polyps r/o adenoma Tissue Large Intestine, Right/Ascending Colon HISTOLOGY - TISSUE EXAM Vladimir Rodgers RN 03/19/2024 1224 B : large proximal ascending cln polyp EMR r/o adenoma Tissue Large Intestine, Right/Ascending Colon HISTOLOGY - TISSUE EXAM Jenn Thompson MD 03/19/2024 1226 C : large distal ascending cln EMR polyp r/o adenoma Tissue Large Intestine, Right/Ascending Colon HISTOLOGY - TISSUE EXAM Vladimir Rodgers RN 03/19/2024 1237 Complications: None Estimated blood loss: Minimal Disposition: Home Condition: stable Impression: 3 small polyps ranging from 3-4 mm in dimension were removed from cecum and ascending colon. One large polyp 15 mm in the ascending colon removed with mucosal resection. Resected was completed in piecemeal fashion and retrieved. Clips were placed. One large polyp 12 mm in the ascending colon, distal to the large polyp, removed with mucosal resection. Resected was completed in piecemeal fashion and retrieved. Clips were placed. Tattoo was placed on the opposite wall of the polyps. Recommendations: Await pathology results. Resume regular diet. Repeat colonoscopy in 6 months to look at the EMR site. Attending Attestation: I was present and scrubbed for the entire procedure. Elver Lutz DO ENDOSCOPY PROCEDURE ORDERABLES F inal Result from Last 3 Months or Most Recently Relevant to Health Maintenance Insurance [facility] Care Teams Test Bore Helper Relationship Specialty Start Date End Date Bayron Wells MD [address] [place] [address] PCP - General 02/22/23 Eliseo Zelaya MD [address] [place] [address] Consulting Physician Urology 02/22/23
--- OUTSIDE RECORDS SUMMARY | 2025-05-29 12:05 | XMS_ITS | Encounter Summary ---
Author Organization [facility] Address [address] [place] [address] Care Team Providers Care Dental Scheduler Name Role Phone Bayron Wells MD Primary Care Provider [phone] Encounter Details Date Type Department Care Team (Late Contact Info) Description 05/29/2025 Bamboo flowsheet [facility] [address] [place] [address] Bayron Wells MD [address] [place] [phone] Social History Tobacco Use Types Packs/Day Years [...] often do you attend chur ch or rastafarian services? 1 to 4 times per year 11/25/2024 Do you belong to any clubs o r organizations such as yazidism groups, unions, fraternal or athletic groups, or [...] Recorded Patient Health Questionnaire-2 Score 0 05/29/2025 [facility] - Occupational [...] place to sleep or slept in a snf (including now)? No 11/08/2023 Housing Stability Vital Sign Answer Dashawn e Recorded In the last 12 months, was t here a time when you were not able to pay the mortgage or rent on time? No 11/25/2024 In the past 12 months, how m any times have you moved where you were living? 0 11/25/2024 At any time in the past 12 m [facility], were you homeless or living in a snf (including now)? No 11/25/2024 Comments Unknown Sex [...] 11:00 AM EST Office Visit [facility] [address] [place] [address] Bayron Wells MD [address] [place] [phone] documented as of this encounter Visit Diagnoses Not on filedocumented in this encounter Additional Health Concerns Assessment Noted Time PHQ-9 Depression Total Score: 1 05/29/20 25 11:00 AM EDT documented as of this encounter Care Teams Dental Scheduler Relationship Specialty Start Date End Date Bayron Wells MD [address] [place] [phone] PCP - General Family Medicine 05/21/24 documented as of this encounter
--- OUTSIDE RECORDS SUMMARY | 2025-05-29 12:05 | XMS_ITS | Encounter Summary ---
Author Organization [facility] Address [address] [place] [address] Care Team Providers Care Relief Salesperson Name Role Phone Bayron Wells MD Primary Care Provider [phone] Encounter Details Date Type Department Care Team ([facility] Contact Info) Description 01/29/2025 Orders Only [facility] [address] [place] [address] Dina Cobb MD [address] [place] [address] Social History Tobacco Use Types Packs/Day Years [...] How often do you attend chur or baptism services? 1 to 4 times per year 11/25/2024 Do you belong to any clubs o r organizations such as yarsani groups, unions, fraternal or athletic groups, or [...] care, and heating? Not very hard 11/25/2024 [facility] - Occupational Stress [...] place to sleep or slept in a senior living (including now)? No 11/08/2023 Housing Stability Vital Sign Answer Dashawn e Recorded In the last 12 months, was t here a time when you were not able to pay the mortgage or rent on time? No 11/25/2024 In the past 12 months, how m any times have you moved where you were living? 0 11/25/2024 At any time in the past 12 m [facility], were you homeless or living in a senior living (including now)? 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 on file Travel History Travel Start Travel End [place] 05/22/2025 05/26/2025 documented as of this encounter Plan of Treatment Upcoming Encounters Date Type Department Care Team (Late st Contact Info) Description 09/05/2025 11:00 AM EST Office Visit [facility] [address] [place] [address] Bayron Wells MD [address] [place] [address] documented as of this encounter Procedures Procedure Name Priority Date/Time Associated Diagnosis Comments CT SCAN : UROGRAM (ABDOMEN/PELVIS) Routine 01/29/2025 11:17 AM EDT documented in this encounter Results * CT SCAN : UROGRAM (ABDOMEN/PELVIS) (01/29/2025 11:17 AM EDT) Anatomical Region Laterality Modality Radiographic Kay ging Dina Cobb MD IMG XR PROCEDURES Final Result documented in this encounter Visit Diagnoses Not on filedocumented in this encounter Care Teams Relief Salesperson Relationship Specialty Start Date End Date Bayron Wells MD [address] [place] [phone] PCP - General Family Medicine 05/21/24 documented as of this encounter
--- OUTSIDE RECORDS SUMMARY | 2025-05-29 12:05 | XMS_ITS | Patient Health Record ---
Author Organization [facility] Address [address] [place] [address] Care Team Providers Care Plastic Surgery Specialist Name Role Phone Bayron Wells Primary Care Provider Amol [facility] [phone] Reason For Referral No Information Social History Tobacco Use: Social History Observation Description Date Details (start date - stop date) Former Smoker NA - NA Smoking History Question Answer Notes Smoking Status Former Smoker How long since you quit > 10 years Plan Of Treatment No Information Insurance Providers Payer Name Payer Address Payer Phone Subscriber Number Group Number Insured Name Patient Relationship to Insured Coverage Start Date Coverage End Date [employer] [address] [place] [address] [id number] DANIELLA BEJARANO Self - patient is the insured Medical (General) History Medical History History ICD Code Cancer Type: Breast & bladder Do you have a CPAP machine?: Yes Do you use the CPAP machine?: Yes Do you have any dental probl ems i.e. 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
--- OUTSIDE RECORDS SUMMARY | 2025-05-29 12:05 | XMS_ITS | Encounter Summary ---
Author Organization [facility] Address [address] [place] [address] Care Team Providers Care Sales Planning Manager Name Role Phone Bayron Wells MD Primary Care Provider Eliseo Zelaya MD Unavailable Encounter Details Date Type Department Care Team (Late st Contact Info) Description 03/28/2023 Lab Requisition [facility] Lab [address] [place] [phone] Eliseo Zelaya MD [address] [place] [facility] [place] [address] Carcinoma in situ of bladder Social History Tobacco Use Types Packs/Day Years Used Date Smoking Tobacco: Former Cigarettes 1 40 1 977 - 2017 Passive Smoke Exposure: Never Smokeless Tobacco: Never Alcohol Use Standard Drinks/Week Comments Yes 0 (1 standard drink = 0.6 oz pur e alcohol) socially Comments No Sex and Gender Information Value Date Recorded Sex Assigned at Female 02/22/2023 9:50 AM EDT Legal Sex Female 10:47 PM EDT Gender Identity Female 02/22/2023 9:50 AM EDT Sexual Orientation Don't know 02/22/2023 9: 50 AM EDT COVID-19 Exposure Response Date Recorded In the last 10 days, have yo u been in contact with someone who was confirmed or suspected to have Coronavirus/COVID-19? No / Unsure 03/28/2023 12:47 PM EDT documented as of this encounter Plan of Treatment Not on file documented as of this encounter Procedures Procedure Name Priority Date/Time Associated Diagnosis Comments PATH CONSULT Routine 03/28/2023 2:39 PM EDT documented in this encounter Results * Path Consult (03/28/2023 2:39 PM EDT) Case Report PATHOLOGY CONSULT Case: [id number] Authorizing Provider: Eliseo Zelaya MD Collected: 03/28/2023 1439 Ordering Location: [facility] Lab Received: 03/28/2023 1441 Pathologist: Adelita Peralta MD Specimens: A) - Urine, Cytology B) - Ureteral washing, Right, Thin Prep C) - Ureteral washing, Left, Thin Prep 03/30/2023 10:12 AM EDT [facility] ([facility]) Final Diagnosis A. Urine, cytology (OSS#[id number], 1 slide, collected on 12-07-22): - Rare atypical urothelial cells present (see comment) B. Right ureteral washing, cytology (OSS#[id number], 1 slide, collected on 12-28-22): - Non-diagnostic (see comment) C. Left ureteral washing, cytology (OSS#[id number], 1 slide, collected on 12-28-22) - Non-diagnostic (see comment) 03/30/2023 10:12 AM EDT [facility] ([facility]) at 1012 EDT Clinical Information Bladder cancer 03/30/2023 10:12 AM EDT [facility] ([facility]) Comment A. The specimen is extremely hypocellular and is limited by scant material. B. The specimen is essentially acellular. C. The specimen is extremely hypocellular and is limited by scant material. 03/30/2023 10:12 AM EDT [facility] ([facility]) Gross Description A. Urine. Received from [facility], [address] [place] [address], is one (1) previously stained glass slide accessioned [id number], collected on 12-07-22. The slide is accompanied by a copy of the contributing pathologists report. B. Ureteral washing. Received from [facility], [address] [place] [address], is one (1) previously stained glass slide accessioned [id number] , collected on 12-28-22. The slide is accompanied by a copy of the contributing pathologists report. C. Ureteral washing. Received from [facility], [address] [place] [address], is one (1) previously stained glass slide accessioned [id number] , collected on 12-28-22. The slide is accompanied by a copy of the contributing pathologists report. 03/30/2023 10:12 AM EDT [facility] ([facility]) Tissue Urine specimen / Unknown 03/28/2023 2:39 PM EDT 03/28/2023 2:41 PM EDT Tissue specimen (specimen) (Ureteral washing) 03/28/2023 2:39 PM EDT 03/28/2023 2:41 PM EDT Tissue specimen (specimen) (Ureteral washing) 03/28/2023 2:39 PM EDT 03/28/2023 2:41 PM EDT us Eliseo Zelaya MD LAB PATHOLOGY ORDERABLES Final R esult [facility] ([facility]) [address] [place] [address] documented in this encounter Visit Diagnoses Diagnosis Carcinoma in situ of bladder documented in this encounter Care Teams Sales Planning Manager Relationship Specialty Start Date End Date Bayron Wells MD [address] [place] [address] PCP - General 02/22/23 Eliseo Zelaya MD [address] [place] [phone] Consulting Physician Urology 02/22/23 documented as of this encounter
--- OUTSIDE RECORDS SUMMARY | 2025-05-29 12:05 | XMS_ITS | Encounter Summary ---
Author Organization [facility] Address [address] [place] [address] Care Team Providers Care Mixer Operator Hot Metal Name Role Phone Bayron Wells MD Primary Care Provider Eliseo Zelaya MD Unavailable Encounter Details Date Type Department Care Team (Late st Contact Info) Description 03/28/2023 Lab Requisition [facility] Hospital Lab [address] [place] [phone] Eliseo Zelaya MD [address] [facility] [place] [address] Social History Tobacco Use Types Packs/Day Years [...] Associated Diagnosis Comments PATH CONSULT Routine 03/28/2023 2:18 PM EDT documented in this encounter Results * Path Consult (03/28/2023 2:18 PM EDT) Case Report PATHOLOGY CONSULT Case: [id number] Authorizing Provider: Eliseo Zelaya MD Collected: 03/28/2023 1418 Ordering Location: [facility] Lab Received: 03/28/2023 1420 Pathologist: Kari Marte MD Specimens: A) - Soft Tissue, Left lateral bladder wall biopsy B) - Soft Tissue, Bladder dome biopsy C) - Soft Tissue, Right lateral bladder wall biopsy D) - Soft Tissue, Right posterior bladder wall biopsy 04/04/2023 3:41 PM EDT [facility] ([place]) Final Diagnosis A. Left lateral bladder wall biopsy ([id number], 5 slides, collected on 12-28-22): - Denuded urothelium; negative for carcinoma. - Muscularis propria present; negative for carcinoma. B. Bladder dome biopsy ([id number], 2 slides, collected on 12-28-22): - Benign urothelial mucosa; negative for carcinoma. - No muscularis propria present. C. Right lateral bladder wall, biopsy ([id number], 2 slides, collected on 12-28-22): - Benign urothelial mucosa; negative for carcinoma. - Muscularis propria present; negative for carcinoma. D. Right posterior bladder wall, biopsy ([id number], 5 slides, collected on 12-28-22): - Urothelial mucosa with very minute focus of carcinoma in situ. - Muscularis propria present; negative for carcinoma. 04/04/2023 3:41 PM EDT [facility] ([place]) at 1541 EDT Clinical Information Bladder Cancer 04/04/2023 3:41 PM EDT [facility] ([place]) Gross Description A. Soft Tissue. Received from [facility], [address] [place] [address]. [place] [phone], are five (5) previously stained glass slides accessioned [id number] , collected on 12-28-22. The slides are accompanied by a copy of the contributing pathologists report. B. Soft Tissue. Received from [facility], [address] [place] [address]. [place] [address], are two (2) previously stained glass slides accessioned [id number] , collected on 12-28-22. The slides are accompanied by a copy of the contributing pathologists report. C. Soft Tissue. Received from [facility], [address] [place] [address]. [place] [address], are two (2) previously stained glass slides accessioned [id number] , collected on 12-28-22. The slides are accompanied by a copy of the contributing pathologists report. D. Soft Tissue. Received from [facility], [address] [place] [address], are five (5) previously stained glass slides accessioned [id number] , collected on 12-28-22. The slides are accompanied by a copy of the contributing pathologists report. 04/04/2023 3:41 PM EDT [facility] ([place]) Tissue (Soft Tissue) 03/28/2023 2:18 PM EDT 03/28/2023 2:20 PM EDT Tissue specimen (specimen) (Soft Tissue) 03/28/2023 2:18 PM EDT 03/28/2023 2:20 PM EDT Tissue specimen (specimen) (Soft Tissue) 03/28/2023 2:18 PM EDT 03/28/2023 2:20 PM EDT Tissue specimen (specimen) (Soft Tissue) 03/28/2023 2:18 PM EDT 03/28/2023 2:20 PM EDT us Eliseo Zelaya MD LAB PATHOLOGY ORDERABLES Final R esult [facility] ([place]) [address] [place] [address] documented in this encounter Visit Diagnoses Not on filedocumented in this encounter Care Teams Mixer Operator Hot Metal Relationship Specialty Start Date End Date Bayron Wells MD [address] [place] [address] PCP - General 02/22/23 Eliseo Zelaya MD [address] [place] [address] Consulting Physician Urology 02/22/23 documented as of this encounter
--- OUTSIDE RECORDS SUMMARY | 2025-05-29 12:05 | XMS_ITS | Encounter Summary ---
Author Organization [facility] Address [address] [place] [address] [address] Team Providers Care [address] Marker Installer Name Role Phone Bayron Wells MD Primary Care Provider [phone] Eliseo Zelaya MD Unavailable Encounter Details Date Type Department Care Team (Late st Contact Info) Description 03/28/2023 Orders Only [facility] [address] [place] [phone] Zaria Jackson MA Social History Tobacco Use Types Packs/Day Years [...] PM EDT documented as of this encounter Progress Notes * Zaria Jackson MA - 03/28/2023 2:56 PM EDT . documented in this encounter Plan of Treatment Not on file documented as of this encounter Results * XR transfer of outside films (03/30/2023 12:00 AM EDT) Narrative IMAGING - 03/30/2023 7:56 AM EDT This order has been auto-finalized and does not contain a result. us Eliseo Zelaya MD IMG XR PROCEDURES Final Result IMAGING documented in this encounter Visit Diagnoses Not on filedocumented in this encounter Care Teams Lane Marker Installer Relationship Specialty Start Date End Date Bayron Wells MD [address] [place] [address] PCP - General 02/22/23 Eliseo Zelaya MD [address] [facility] [place] [phone] Consulting Physician Urology 02/22/23 documented as of this encounter
--- OUTSIDE RECORDS SUMMARY | 2025-05-29 12:05 | XMS_ITS | Encounter Summary ---
Author Organization [facility] Address [address] [place] [address] Care Team Providers Care Service Loss Control Consultant Name Role Phone Bayron eWlls MD Primary Care Provider [phone] Encounter Details Date Type Department Care Team ([facility] Contact Info) Description 01/28/2025 Orders Only [facility] [address] [place] [address] Bayron Wells MD [address] [place] [address] Social History Tobacco Use Types Packs/Day Years [...] often do you attend chur ch or gnosticism services? 1 to 4 times per year 11/25/2024 Do you belong to any clubs o r organizations such as jainism groups, unions, fraternal or athletic groups, or [...] care, and heating? Not very hard 11/25/2024 [facility] - [...] place to sleep or slept in a long term (including now)? No 11/08/2023 Housing Stability Vital [...] time in the past 12 m [facility], were you homeless or living in a long term (including now)? No 11/25/2024 Comments Unknown Sex [...] Office Visit [facility] [address] [place] [address] Bayron Wells MD [address] [place] [address] documented as of this encounter Visit Diagnoses Not on filedocumented in this encounter Care Teams Service Loss Control Consultant Relationship Specialty Start Date End Date Bayron Wells MD [address] [place] [address] PCP - General Family Medicine 05/21/24 documented as of this encounter
--- OUTSIDE RECORDS SUMMARY | 2025-05-29 12:05 | XMS_ITS | Patient Health Record ---
Author Organization [facility] Address [address] [place] [address] Care Team Providers Care Breakfast Host Name Role Phone Bayron Wells MD Primary Care Provider UnavailVic Calloway Unavailable [phone] Allergies Allergen (clinical drug ingredient) Drug/Non Drug Allergy documented on EMR Reaction Allergy Type Onset Date Status acetaminophen / oxycodone Percocet headache Drug Allergy Active Reason For Referral No Information Medications Medication SIG (Take, Route, Frequency, Duration) Notes Start Date End Date Status Potassium Chloride ER 10 MEQ 1 tablet wi th food Orally Twice a day Active Aspirin 81 MG 1 tablet Orally Once a day Active Solifenacin Succinate 10 MG 1 tablet Ora lly Once a day Active Pantoprazole Sodium 40 MG 1 tablet Orall y Once a day Active Phentermine HCl 37.5 MG TAKE 1 TABLET (3 7.5 MG) BY MOUTH IN THE MORNING. TAKE BEFORE MEALS. Oral for 30 Days Active oxyBUTYnin Chloride ER 10 MG 1 tablet Or ally Once a day Active Nabumetone 750 MG Oral for 90 Days Active Oxaprozin 600 MG as directed Orally Active Cyclobenzaprine HCl 10 MG 1 tablet at be dtime as needed Orally Once a day Active Furosemide 20 MG 1 tablet Orally Once a day Active Azelastine HCl 0.05 % 1 drop into affect ed eye Ophthalmic Twice a day Active Temazepam 30 MG 1 capsule at bedtime as needed Orally Once a day Active Benicar 40 MG 1 tablet Orally Once a day Active Immunizations Vaccine Route Administration Date Status Comme nts Flu, Flucelvax (63376) 6 mos and older, single-dose syringe Unknown 08/01/2024 Administered Pneumococcal (Pneumovax 23) Unknown 12/17/2021 Administ vic SARS-COV-2 (COVID 19 Moderna - Booster 0.25mL) Unknown 09/02/2022 Administered Social History Tobacco Use: Social History Observation Description Date Details (start date - stop date) Former Smoker NA - NA Tobacco Control (Standard) Question Answer Notes Tobacco use: Former smoker How long has it been since y ou last smoked? 5-10 years Additional Findings: Tobacco non-user Ex -moderate cigarette smoker (10-19/day) Problems Problem Type SNOMED Code ICD Code Onset Dates Problem Status W/U Status Risk Notes Problem Morbid obesity (653885033) Morbid obesity (E66.01) Active confirmed Problem Obstructive sleep apnea syndrome (74798706) AIDAN (obstructive sleep apnea) (G47.33) Active confirmed Problem Ex-tobacco user (finding) (730048509) History of tobacco abuse (Z87.891) Active confirmed Problem Malignant tumor of urinary bladder (415691392) 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 Problem 794263511 Body mass index [BMI] 45.0-49.9, adult (Z68.42) Active confirmed Vital Signs Heart Rate 59 /min 12/18/2024 Temperature 96.9 degrees Fahrenheit 12/18/2024 Respiratory Rate 18 /min 12/18/2024 Blood pressure diastolic 66 mm Hg 12/18/2024 Oximetry 97 % 12/18/2024 Height 65 in 12/18/2024 Blood pressure systolic 138 mm Hg 12/18/2024 Weight 273.8 lbs 12/18/2024 BMI 45.56 kg/m2 12/18/2024 Encounters Encounter Location Date Provider Diagnosis [facility] [place] [address] [place] [address] 12/04/2024 Vic Capellan [facility] [place] [address] [place] [address] 12/18/2024 Vic Capellan AIDAN (obstructive sleep apnea) G47.33 ; History of tobacco abuse Z87.891 ; Cancer of bladder wall C67.9 ; Morbid obesity E66.01 and Body mass index [BMI] 45.0-49.9, adult Z68.42 Assessments Encounter Date Diagnosis (ICD Code) Assessment Notes Treatment Notes Treatment Clinical Notes Section Notes 12/18/2024 AIDAN (obstructive sleep apnea) (ICD-10 - G47.33) Qsck-zs-izcu encounter performed with the patient to document continued need for PAP therapy. -Current DME: [facility] 10/11/2021: AHI 30-Compliance was reviewed from 11/16/2024 - 12/15/2024-Total days used: (100%)-Total of all days >4 hours of use: 30 (100%)-Current model, mode, & pressure: AirSense 11 AutoSet auto-CPAP 5-15 -Median pressure: 8.3szF7N-Vpkhvwtt AHI: 0.7-Air leak (95th percentile): 1L/min-Mask/harnes s fitting: Fits great, no leak. Loves her nasal mask.-Sleep quality: Well-rested, sleeps great-Daytime hypersomnolence: Pretty much resolved.-Recommen dations: Continues to have superb compliance without any complaints or concerns today. No significant leak and AHI is 0.7. No changes this visit. Continue using CPAP @ HS/naps as she is.-Note: This whzt-ov-tgig visit comes with my authorization that the [...] adult (ICD-10 - Z68.42) Plan Of Treatment Next Appt Details Provider Name:Vic Capellan, 12/16/2025 11:00:00 AM, [address] [facility], [place], [address], Insurance Providers Payer Name Payer Address Payer Phone Subscriber Number Group Number Insured Name Patient Relationship to Insured Coverage Start Date Coverage End Date [place] [address] [place] [address] [phone] [id number] Yoko Rutledge Self - patient is the insured 5 [facility] [address] [place] [phone] [id number] Yoko Rutledge Self - patient is the insured Medical (General) History Medical History History ICD Code AIDAN (obstructive sleep apnea) G47.33 HTN (hypertension) I10 Cancer of bladder wall C67.9 GERD (gastroesophageal reflux disease) K 21.9 Breast cancer C50.919 Ovarian cyst N83.209 Allergic rhinitis due to pollen J30.1 History of tobacco abuse Z87.891 Morbid obesity E66.01 Surgical History Surgery Date(Month/Year) right mastectomy arthroscopic knee surgery-right hysterectomy vein ligation sinus surgery Cardiac Catheterization 06/11/2020 tonsillectomy and adenoidectomy Cholecystectomy cystoscopy with bladder neoplasm removal
--- OUTSIDE RECORDS SUMMARY | 2025-05-29 12:05 | XMS_ITS | Encounter Summary ---
Author Organization [facility] Address [address] [place] [address] Care Team Providers Care Porter Luggage Name Role Phone Bayron Wells MD Primary Care Provider [phone] Encounter Details Date Type Department Care Team (Late st Contact Info) Description 11/04/2024 Clinisync Result Encounter [facility] External Department Unsolicited [...] often do you attend chur ch or druze services? Patient declined 11/08/2023 Do you belong to any clubs o r organizations such as mu-ism groups, unions, fraternal or athletic groups, or [...] medical care, and heating? Patient declined 11/08/2023 [facility] - Occupational [...] place to sleep or slept in a [place] facility (including now)? 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 Not on file Travel History Travel Start Travel End [place] 05/22/2025 05/26/2025 documented as of this encounter Plan of Treatment Upcoming Encounters Date Type Department Care Team (Late st Contact Info) Description 09/05/2025 11:00 AM EST Office Visit [facility] [address] [place] [address] Bayron Wells MD [address] [place] [address] documented as of this encounter Procedures Procedure Name Priority Date/Time Associated Diagnosis Comments VASC US LOWER EXTREMITY VENOUS DUPLEX RIGHT 11/04/2024 8:40 AM EST documented in this encounter Results * Vascular US lower extremity venous duplex right (11/04/2024 8:40 AM EST) Anatomical Region Laterality Modality Lower Extremities Ultrasound 11/04/2024 8:40 AM EST Narrative 11/04/2024 8:42 AM EST The [address] [address] Ultrasound Report Signed Patient: YOKO RUTLEDGE MR#: [id number] : 1960 Acct:[id number] Age/Sex: 64 / F ADM Date: 11/04/24 Loc: US Attending Dr: Hernando Regan Ordering Physician: Hernando Regan D.O. Date of Service: 11/04/24 Procedure(s): US venous doppler LE RT Accession Number(s): [id number] cc: Hernando Regan D.O.; Bayron Wells M.D. [place] [address] Patient Name: YOKO RUTLEDGE MRN: [facility]:[id number] date: 1960 Sex: F Assigned Patient Location: US Current Patient Location: US Accession/Order Number: [id number] Exam Date: 11/04/2024 07:50 Report Date: 11/04/2024 08:40 At the request of: HERNANDO REGAN Procedure: US venous doppler LE RT EXAM: US venous doppler LE RT HISTORY: Right Lower Extremity Pain COMPARISON: None. TECHNIQUE: Grayscale, color and Doppler FINDINGS: Region: Right leg Thrombus: None Flow: Normal Augmentation: Normal Compressibility: Normal US/US venous doppler LE RT IMPRESSION: No deep or superficial vein thrombus in the right leg. Electronically authenticated by: SPARKLE RODRIGUEZ Date: 11/04/2024 08:40 Dictated By: Sparkle Rodriguez M.D. Signed By: 11/04/2442 DD/ TD/TT: Mulling Machine Operator: Procedure Note Radiology, Radiologist, MD - 11/04/2024 [place] [address] Ultrasound Report Signed Patient: YOKO RUTLEDGE [facility]#: [id number] : 8Acct:[id number] Age/Sex: 64 / FADM Date: 11/04/24 Loc: US Attending Dr: Hernando Regan Ordering Physician: Hernando Regan D.O. Date of Service: 11/04/24 Procedure(s): US venous doppler LE RT Accession Number(s): [id number] cc: Hernando Regan D.O.; Bayron Wells M.D. [place] [id number] Patient Name: YOKO RUTLEDGE MRN: [facility]:[id number] date: 1960 Sex: F Assigned Patient Location: US Current Patient Location: US Accession/Order Number: [id number] Exam Date: 11/04/2024 07:50 Report Date: 11/04/2024 08:40 At the request of: HERNANDO REGAN Procedure: US venous doppler LE RT EXAM: US venous doppler LE RT HISTORY: Right Lower Extremity Pain COMPARISON: None. TECHNIQUE: Grayscale, color and Doppler FINDINGS: Region: Right leg Thrombus: None Flow: Normal Augmentation: Normal Compressibility: Normal US/US venous doppler LE RT IMPRESSION: No deep or superficial vein thrombus in the right leg. Electronically authenticated by: SPARKLE RODRIGUEZ Date: 11/04/2024 08:40 Dictated By: Sparkle Rodriguez M.D. Signed By:11/04/2442 DD/ 9 TD/TT: Mulling Machine Operator: us Generic External Data Provider IMG US PROCEDURES Final Result documented in this encounter Visit Diagnoses Not on filedocumented in this encounter Care Teams Porter Luggage Relationship Specialty Start Date End Date Bayron Wells MD [address] [place] [address] PCP - General Family Medicine 05/21/24 documented as of this encounter
--- OUTSIDE RECORDS SUMMARY | 2025-05-29 12:05 | XMS_ITS | Encounter Summary ---
Author Organization [facility] Address [address] [place] [address] Care Team Providers Care Video Machines Mechanic Name Role Phone Bayron Wells MD Unavailable Bayron Wells MD Primary Care Provider [phone] Encounter Details Date Type Department Care Team (Late st Contact Info) Description 07/12/2024 Orders Only [facility] [address] [place] [phone] Bayron Wells MD [address] [place] [address] Social History Tobacco Use Types Packs/Day Years [...] How often do you attend chur or worship services? Patient declined 11/08/2023 Do you belong to any clubs o r organizations such as methodist groups, unions, [employer] or athletic groups, or school groups? No [...] care, and heating? Patient declined 11/08/2023 [facility] - Occupational Stress Questionnaire Answer Date [...] place to sleep or slept in a assisted (including now)? 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 Not on file Travel History Travel Start Travel End [place] 05/22/2025 05/26/2025 documented as of this encounter Plan of Treatment Upcoming Encounters Date Type Department Care Team (Late st Contact Info) Description 09/05/2025 11:00 AM EST [facility] [address] [place] [address] Bayron Wells MD [address] [place] [address] documented as of this encounter Visit Diagnoses Not on filedocumented in this encounter Care Teams Video Machines Mechanic Relationship Specialty Start Date End Date Bayron Wells MD [address] [place] [phone] PCP - [employer] 12/29/2310/29 Bayron Wells MD [address] [place] [address] PCP - General Family Medicine 05/21/24 documented as of this encounter
--- OUTSIDE RECORDS SUMMARY | 2025-05-29 12:05 | XMS_ITS | Clinical Summary ---
Author Organization [facility] Address [address] [facility] [place] [address] Phone Care Team Providers Care Fire Prevention Bureau Captain Name Role Phone Unavailable Primary Care Provider Unavailabl e Social History Tobacco Use Types Packs/Day Years Used Date Smoking Tobacco: Never Assessed Comments Unknown Sex and Gender Information Value Date Recorded Sex Assigned at Not on file Legal Sex Female 4:38 PM EST Gender Identity Not on file Sexual Orientation Not on file Plan of Treatment Not on file
--- OUTSIDE RECORDS SUMMARY | 2025-05-29 12:05 | XMS_ITS | Encounter Summary ---
Author Organization [facility] Address [address] [place] [address] Care Team Providers Care Mainframe Systems Administrator Name Role Phone Bayron Wells MD Primary Care Provider [phone] Encounter Details Date Type Department Care Team (Latest Contact Info) Description 05/28/2025 Travel Social History Tobacco Use Types Packs/Day Years [...] How often do you attend chur or mandaeism services? 1 to 4 times per year 11/25/2024 Do you belong to any clubs o r organizations such as protestant groups, unions, fraternal or athletic groups, or [...] Recorded Patient Health Questionnaire-2 Score 0 05/29/2025 [facility] [...] any time in the past 12 m [facility], were you homeless or living in [...] file Travel History Travel Start Travel End [place] 05/22/2025 05/26/2025 documented as of this encounter Functional Status * Over the past 2 weeks, how often have you been bothered by any of the following problems? Question Answer Date of Assessment Author Patient Health Questionnaire-2 Score 0 05/01 3:50 PM EDT Mychart, Generic * Little interest or pleasure in doing things Answer Date of Assessment Author Not at all 05/28/2025 3:50 PM EDT Mychart, Generic * Feeling down, depressed, or hopeless Answer Date of Assessment Author Not at all 05/28/2025 3:50 PM EDT Mychart, Generic documented as of this encounter Plan of Treatment Upcoming Encounters Date Type Department Care Team (Late st Contact Info) Description 09/05/2025 11:00 AM EST Office Visit [facility] [address] [place] [address] Bayron Wells MD [address] [place] [address] documented as of this encounter Visit Diagnoses Not on filedocumented in this encounter Care Teams Mainframe Systems Administrator Relationship Specialty Start Date End Date Bayron Wells MD [address] [place] [address] PCP - General Family Medicine 05/21/24 documented as of this encounter
--- OUTSIDE RECORDS SUMMARY | 2025-05-29 12:05 | XMS_ITS ---
Author Organization [facility] Address [address] [place] [address] Care Team Providers Care Base Wad Operator Adjuster Name Role Phone Bayron Wells MD Primary Care Provider [phone] Eliseo Zelaya MD Unavailable Active Problems Problem Noted Date Diagnosed Date [...] (02/22/2023): Added automatically from request for surgery [id number] Intermittent palpitations 11/17/20212022 Assessment & Plan (01/02/2024 [...] Risk 6.0 % 30-day risk of , [place], or cardiac arrest From a cardiac perspective [...] Arthritis 04/12/2017 05/05/2023 Abnormal mammogram 12/27/2012 05/05/2023 Current Treatment and Therapy Plans OP Intravesicular Gemcitabine / DOCEtaxel Induction, Weekly x 6 - Bladder* Plan Start Date:04/27/2023 Plan Provider:Eliseo Zelaya MD Linked Problems 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 (CMS/HCC) Treatment Medications DOCEtaxel (Taxotere) intrave sicular 37.5 mg in 53.75 mL of 0.9% sodium chloridegemcitabine (Gemzar) intravesicular 1000 mg in 60 mL SWFI OP Intravesicular Gemcitabine / DOCEtaxel Maintenance, Monthly x 12 - Bladder* Plan Start Date:07/06/2023 Plan Provider:Eliseo Zelaya MD Linked Problems 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 (CMS/HCC) Treatment Medications Current Day (Day 1 , Cycle 1 - Planned for 07/07/2023) Next Day (Day 1, Cycle 2 - Planned for 08/04/2023) DOCEtaxel (Taxotere) intravesicular 37.5 mg in 53.75 mL of 0.9% sodium chloridegemcitabine (Gemzar) intravesicular 1000 mg in 60 mL SWFI DOCEtaxeL (Taxotere) 37.5 mg in sodium chloride 0.9 % 53.75 mL intravesicular syringegemcitabine (Gemzar) 1,000 mg in sterile water (PF) (SWFI) 60 mL intravesicular syringe DOCEtaxeL (Taxotere) 37.5 mg in sodium chloride 0.9 % 53.75 mL intravesicular syringegemcitabine (Gemzar) 1,000 mg in sterile water (PF) (SWFI) 60 mL intravesicular syringe Past Treatment and Therapy Plans No past plan information found.
[2025-05-29 12:45] LABS: Hematocrit 37.9 % (36.0-48.0); Hemoglobin 12.1 g/dL (12.0-16.0); Immature Granulocytes Abs Auto 0.01 10^3/uL (0.00-0.03); Immature Granulocytes Pct Auto 0.2 % (0.0-0.5); Lymphocytes Absolute Auto 1.3 10^3/uL (1.2-3.8); Mean Corpuscular HGB Conc 31.9 g/dL (29.9-35.2); Mean Corpuscular Hemoglobin 28.3 pg (26.7-34.0); Mean Corpuscular Volume 88.6 fL (81.0-99.0); Platelet Count 195 10^3/uL (150-450); Red Blood Count 4.28 10^6/uL (4.20-5.40); White Blood Count 5.0 10^3/uL (4.0-11.0)
[2025-05-29 13:03] LABS: Alanine Aminotransferase 50 U/L (14-59); Albumin Globulin Ratio 1.0; Albumin Level 3.7 g/dL (3.4-5.0); Alkaline Phosphatase 78 U/L (46-116); Anion Gap 12.3; Aspartate Amino Transferase 40 U/L (15-37); Blood Urea Nitrogen 17.0 mg/dL (7.0-18.0); Calcium 9.7 mg/dL (8.5-10.1); Carbon Dioxide 28.2 mmol/L (21.0-32.0); Chloride 105 mmol/L (98-107); Cholesterol 147 mg/dL (<=200); Estimated GFR (African America >60 (>=60 mL/min/1.73m^2); Estimated GFR (Non-African Ame 54 (>=60 mL/min/1.73m^2); Globulin 3.8 g/dL; Glucose 127 mg/dL (74-106); HDL Cholesterol 52 mg/dL (40-60); Potassium 4.5 mmol/L (3.5-5.1); Sodium 141 mmol/L (136-145); Thyroid Stimulating Hormone 1.381 uIU/mL (0.358-3.740); Total Protein 7.5 g/dL (6.4-8.2); Triglycerides 144 mg/dL (<=150); VLDL CHOLESTEROL 28.8 mg/dL
== END 2025-05-29 12:00 | disposition home or self-care (01) ==
LOC: LAB 12:01
PROVIDERS: PCP Family Medicine; Visit Provider Family Medicine
DX: R73.03 Prediabetes (principal); I10 Essential (primary) hypertension; Z79.899 Other long term (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; E78.5 Hyperlipidemia, unspecified; E66.813 Obesity, class 3; E66.01 Morbid (severe) obesity due to excess calories; Z68.41 Body mass index [BMI] 40.0-44.9, adult
CPT/HCPCS: 36415; 80048; 80061; 80076; 83036; 84443; 85025

== ENCOUNTER 2025-06-26 14:27 | Outpatient (OUT) | payer MEDICARE, OTHER, SELFPAY ==
--- OUTSIDE RECORDS SUMMARY | 2024-12-04 06:55 | XMS_ITS ---
Author Organization [facility] in [place] Address [address] [place] [address] Care Team Providers Care Cow Puncher Name Role Phone Bayron Wells MD Primary Care Provider Unavailab Vic Fortune Unavailable [phone] REASON FOR VISIT PAP Headgear Encounters Encounter Location Date Provider Diagnosis Pulmonary Medicine [place] [address] [place] [address] 12/04/2024 Vic Capellan Plan Of Treatment No Information Progress Notes * Yoko RUTLEDGE ADOB: [birth year] (64 yo F)Acc No.[id number]:12/04/2024 Patient: Yoko MCKEON :1960 A ge:64 Y S ex:Female Address:[address] [place] [address], [id number] * true * Date: Generated for Printi ng/Faxing/eTransmitting on: 0 06/26/2025 02:30 PM EDT
--- OUTSIDE RECORDS SUMMARY | 2024-12-18 07:00 | XMS_ITS ---
Author Organization [facility] [place] Address [address] [place] [address] Care Team Providers Care Collar Packer Name Role Phone Bayron Wells MD Primary Care Provider UnavailVic Calloway Unavailable [phone] Allergies Allergen (clinical drug ingredient) Drug/Non Drug Allergy documented on EMR Reaction Allergy Type Onset Date Status acetaminophen / oxycodone Percocet headache Drug Allergy Active REASON FOR VISIT 1YEAR-AIDAN Medications Medication SIG (Take, Route, Frequency, Duration) Notes Start Date End Date Status Potassium Chloride ER 10 MEQ 1 tablet wi th food Orally Twice a day Active Solifenacin Succinate 10 MG 1 tablet Ora lly Once a day Active Phentermine HCl 37.5 MG TAKE 1 TABLET (3 7.5 MG) BY MOUTH IN THE MORNING. TAKE BEFORE MEALS. Oral for 30 Days Active Temazepam 30 MG 1 capsule at bedtime as needed Orally Once a day Active Pantoprazole Sodium 40 MG 1 tablet Orall y Once a day Active oxyBUTYnin Chloride ER 10 MG 1 tablet Or ally Once a day Active Nabumetone 750 MG Oral for 90 Days Active Oxaprozin 600 MG as directed Orally Active Furosemide 20 MG 1 tablet Orally Once a day Active Aspirin 81 MG 1 tablet Orally Once a day Active Cyclobenzaprine HCl 10 MG 1 tablet at be dtime as needed Orally Once a day Active Azelastine HCl 0.05 % 1 drop into affect ed eye Ophthalmic Twice a day Active Benicar 40 MG 1 tablet Orally Once a day Active Social History Tobacco Use: Social History Observation Description Date Details (start date - stop date) Former Smoker NA - NA Tobacco Control (Standard) Question Answer Notes Tobacco use: Former smoker How long has it been since y ou last smoked? 5-10 years Additional Findings: Tobacco non-user Ex -moderate cigarette smoker (10-19/day) Vital Signs Temperature 96.9 degrees Fahrenheit 12/18/19 25 Blood pressure systolic 138 mm Hg 12/18/19 25 Blood pressure diastolic 66 mm Hg 025 Heart Rate 59 /min 12/18/2024 Respiratory Rate 18 /min 12/18/2024 Height 65 in 12/18/2024 Weight 273.8 lbs 12/18/2024 BMI 45.56 kg/m2 12/18/2024 Oximetry 97 % 12/18/2024 Encounters Encounter Location Date Provider Diagnosis Pulmonary Medicine [address] [address] 12/18/2024 Vic Capellan AIDAN (obstructive sleep apnea) G47.33 ; History of tobacco abuse Z87.891 ; Cancer of bladder wall C67.9 ; Morbid obesity E66.01 and Body mass index [BMI] 45.0-49.9, adult Z68.42 Assessments Encounter Date Diagnosis (ICD Code) Assessment Notes Treatment Notes Treatment Clinical Notes Section Notes 12/18/2024 AIDAN (obstructive sleep apnea) (ICD-10 - G47.33) Knis-gu-jimx encounter performed with the patient to document continued need for PAP therapy. -Current DME: [facility] 10/11/2021: AHI 30-Compliance was reviewed from 11/16/2024 - 12/15/2024-Total days used: 3030 (100%)-Total of all days >4 hours of use: 30/30 (100%)-Current model, mode, & pressure: AirSense 11 AutoSet auto-CPAP 5-15 -Median pressure: 8.2msJ7V-Ktbafwwq AHI: 0.7-Air leak (95th percentile): 1L/min-Mask/harnes s fitting: Fits great, no leak. Loves her nasal mask.-Sleep quality: Well-rested, sleeps great-Daytime hypersomnolence: Pretty much resolved.-Recommen dations: Continues to have superb compliance without any complaints or concerns today. No significant leak and AHI is 0.7. No changes this visit. Continue using CPAP @ HS/naps as she is.-Note: This klhn-eb-nxfa visit comes with my authorization that the patient's DME may request to renew, reorder, and/or replace tubing, supplies, mask, and/or PAP device (if applicable). 12/18/2024 History of tobacco abuse (ICD-10 - Z87.891) 1ppd x 35 years, quit 2015. As before, she qualifies for LDCT based on smoking history, but given history of breast and bladder cancer, will defer to PCP/oncology about need for screening LDCT vs. metastatic monitoring. 12/18/2024 Cancer of bladder wall (ICD-10 - C67.9) 12/18/2024 Morbid obesity (ICD-10 - E66.01) Patient's weight is inducing a restrictive pulmonary physiology. Weight loss indicated: Decrease calories, increase activity. 12/18/2024 Body mass index [BMI] 45.0-49.9, adult (ICD-10 - Z68.42) Plan Of Treatment Treatment Notes Assessment Notes AIDAN (obstructive sleep apnea) Pqqv-su-bxlj encounter performed with the patient to document continued need for PAP therapy. -Current DME: [facility] 10/11/2021: AHI 30-Compliance was reviewed from 11/16/2024 - 12/15/2024-Total days used: 30/30 (100%)-Total of all days >4 hours of use: 30/30 (100%)-Current model, mode, & pressure: AirSense 11 AutoSet auto-CPAP 5-15 -Median pressure: 8.4exX1N-Suyeykdb AHI: 0.7-Air leak (95th percentile): 1L/min-Mask/harness fitting: Fits great, no leak. Loves her nasal mask.-Sleep quality: Well-rested, sleeps great-Daytime hypersomnolence: Pretty much resolved.-Recommendations: Continues to have superb compliance without any complaints or concerns today. No significant leak and AHI is 0.7. No changes this visit. Continue using CPAP @ HS/naps as she is.-Note: This bkio-gw-iovj visit comes with my authorization that the patient's DME may request to renew, reorder, and/or replace tubing, supplies, mask, and/or PAP device (if applicable). History of tobacco abuse 1ppd x 35 years, quit 2016. As before, she qualifies for LDCT based on smoking history, but given history of breast and bladder cancer, will defer to PCP/oncology about need for screening LDCT vs. metastatic monitoring. Morbid obesity Patient's weight is inducing a restrictive pulmonary physiology. Weight loss indicated: Decrease calories, increase activity. Next Appt Details Follow Up: 1 Year, Reason: O SA Progress Notes * DARCI Yoko ADOB: [birth year] (64 yo F)Acc No.[id number]:12/18/2024 Follow Up Patient: Citlali SANTATHEODORAWali LEHMANruby Perez Provider: Citlali Capellan DO :1960 A ge:64 Y S ex:Female Date:12/18/2024 Address:[address] [place], [place] [id number] Pcp:Bayron Wells MD Check In:10:52 AM ESTCheck O ut:11:10 AM EST Subjective: * Chief Complaints: * 1 YEAR-AIDNA * HPI: E pworth Sleepiness Scale: Here for annual kxfr-ek-adpc. Patient is doing very well on PAP. Has absolutely no complaints and has superb compliance. Her median leak is ZERO and 95th percentile is only 1L/min. [place] is 1. MA Intake Comments:. [place] Sleepiness Scale C silvia of dozing while sitting and reading:?0 - Never C silvia of dozing while watching TV: 0 - Never C silvia of dozing while sitting in a public place: 0 - Never C silvia of dozing as a passenger in a car for an hour without a break: 0 - Never C silvia of dozing while lying down in the afternoon to rest: 1 - Slight Chance C silvia of dozing while sitting and talking to someone: 0 - Never C silvia of dozing while sitting quietly after lunch: 0 - Never C silvia of dozing in a stopped car for a few minutes in traffic: 0 - Never T OTAL SCORE: 1 Patient presents for a follow-up for AIDAN. DME: [facility]. Patient denies any complaints or concerns with her machine. Patient is compliant and reports great benefit. Patient reports recently receiving new supplies from [employer] for her PAP. Patient is under the care of [facility] Cardiology. * ROS: G eneral/Constitutional: Fever or sweats d enies. C hange of appetite d enies. C hills d enies. W eight Change d enies. H EENT: Dry mouth d enies. S ore throat d enies. O ral Ulcers d enies. P ost Nasal Drip D enies. C ongestion D enies. H oarseness?Denies. C ardiovascular: Tachycardia d enies. C hest pain d enies. P alpitations d enies. R espiratory: Chest tightness d enies. P leurisy D enies. D yspnea d enies. C ough d enies. H emoptysis d enies. W heezing d enies.? G astrointestinal: Acid Reflux/GERD/Heartburn d enies. D ysphagia d enies. M usculoskeletal: Arthralgias/joint pain C hronic. S kin: Easy bruising d enies. R spenser d enies. ? N eurologic: Seizures d enies. T remor d enies. H ematology: Abnormal Bleeding d enies. P sychiatric: Anxiety d enies. * Active Problem List E66.01 Morbid obesity Modified On:12/19/2023/U Status:confirmed G47.33 AIDAN (obstructive sle ep apnea) Modified On:12/19/2023U Status:confirmed Z87.891 History of tobacco a buse Modified On:12/19/2023U Status:confirmed C67.9 Cancer of bladder wa ll Modified On:12/19/2023U Status:confirmed Z68.42 Body mass index [BMI ] 45.0-49.9, adult Modified On:12/19/2023 Status:confirmed * Medical History: * Surgical History: r ight mastectomy arthroscopic knee surgery-right hysterectomy vein ligation sinus surgery Cardiac Catheterization 06/11/2020tonsillectomy and adenoidectomy Cholecystectomy cystoscopy with bladder neoplasm removal * Hospitalization/Major Diagno stic Procedure: D enies Past Hospitalization * Family History: F ather: anemia. B rother(s): asthma, depression, diagnosed with Unspecified heart disease, Prostate cancer. M other: diagnosed with Unspecified essential hypertension, Unspecified heart disease. S ister(s): diagnosed with Unspecified heart disease. * Social History: T obacco Use: T obacco Control (Standard) T obacco use: F ormer smoker H ow long has it been since you last smoked??5-10 years A dditional Findings: Tobacco non-user E x-moderate cigarette smoker (10-19/day) Electronic Cigarette use C urrent user N o LM: Additional Tobacco Questions N umber of Years Pt Smoked: 3 5 N umber of Packs per Day: 1 When did you stop smokin. 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 D rugs/Alcohol: D rugs H ave you used drugs other than those for medical reasons in the past 12 months? N o D oes the Patient have a History of Drug Abuse in the Past? N o Caffeine I ntake: n one Do you drink alcohol?: Yes, Socially. Do you smoke marijuana?: Denies. * Medications: T akingAspirin 81 MG Tablet Delayed Release 1 tablet Orally Once a day Azelastine HCl 0.05 % Solution 1 drop into affected eye Ophthalmic Twice a day Benicar(Olmesartan Medoxomil) 40 MG Tablet 1 tablet Orally Once a day Cyclobenzaprine HCl 10 MG Tablet 1 tablet at bedtime as needed Orally Once a day Furosemide 20 MG Tablet 1 tablet Orally Once a day Nabumetone 750 MG Tablet Oral Oxaprozin 600 MG Tablet as directed Orally oxyBUTYnin Chloride ER 10 MG Tablet Extended Release 24 Hour 1 tablet Orally Once a day Pantoprazole Sodium 40 MG Tablet Delayed Release 1 tablet Orally Once a day Phentermine HCl 37.5 MG Tablet TAKE 1 TABLET (37.5 MG) BY MOUTH IN THE MORNING. TAKE BEFORE MEALS. Oral Potassium Chloride ER 10 MEQ Tablet Extended Release 1 tablet with food Orally Twice a day Solifenacin Succinate 10 MG Tablet 1 tablet Orally Once a day Temazepam 30 MG Capsule 1 capsule at bedtime as needed Orally Once a day Taking Aspirin 81 MG Tablet Delayed Release 1 tablet Orally Once a day Taking Azelastine HCl 0.05 % Solution 1 drop into affected eye Ophthalmic Twice a day Taking Benicar(Olmesartan Medoxomil) 40 MG Tablet 1 tablet Orally Once a day Taking Cyclobenzaprine HCl 10 MG Tablet 1 tablet at bedtime as needed Orally Once a day Taking Furosemide 20 MG Tablet 1 tablet Orally Once a day Taking Nabumetone 750 MG Tablet Oral Taking Oxaprozin 600 MG Tablet as directed Orally Taking oxyBUTYnin Chloride ER 10 MG Tablet Extended Release 24 Hour 1 tablet Orally Once a day Taking Pantoprazole Sodium 40 MG Tablet Delayed Release 1 tablet Orally Once a day Taking Phentermine HCl 37.5 MG Tablet TAKE 1 TABLET (37.5 MG) BY MOUTH IN THE MORNING. TAKE BEFORE MEALS. Oral Taking Potassium Chloride ER 10 MEQ Tablet Extended Release 1 tablet with food Orally Twice a day Taking Solifenacin Succinate 10 MG Tablet 1 tablet Orally Once a day Taking Temazepam 30 MG Capsule 1 capsule at bedtime as needed Orally Once a day DiscontinuedTriamcinolone Acetonide 0.5 % Cream 1 application Externally Two times a Week Medication List reviewed and reconciled with the patientDiscontinued Triamcinolone Acetonide 0.5 % Cream 1 application Externally Two times a Week Medication List reviewed and reconciled with the patient * Allergies: P ercocet: headache - Allergyno[Allergies Verified] Objective: * Vitals: W t:273.8lbs, Ht: 65 in, BP:sittin/66mm Hg, Temp:Forehead:96.9F, HR:59/min, RR:18/min, BMI:45.56Index, Oxygen sat %:Room Air:97%, Ht-cm: 165.1 cm, Wt-k.19 kg. * Examination: E xam: GENERAL APPEARANCE: A ppears stated age. Skin N ormal. Mouth P ink and moist. Oropharynx M allampati Class III. Macroglossia with tongue ridging. Trachea M idline. Chest N ormal. Respiratory Normal M ovements, E ffort N ormal. Auscultation N ormal breath sounds. Cardiac R egular rate and rhythm. Gastrointestinal I ncreased central adiposity. Vascular N o edema. Musculoskeletal N ormal posture. Neurological F ocal, intact. Psychiatric A lert and oriented x3. Mentation/Cognition N ormal. Assessment: * Assessment: 1. O SA (obstructive sleep apnea) - G47.33 (Primary) 2 . H istory of tobacco abuse - Z87.891 3 . C ancer of bladder wall - C67.9 4 . M orbid obesity - E66.01 5 . B roberto mass index [BMI] 45.0-49.9, adult - Z68.42 Plan: * Treatment: 2. H istory of tobacco abuse Notes: 1ppd x 35 years, quit 2015. As before, she qualifies for LDCT based on smoking history, but given history of breast and bladder cancer, will defer to PCP/oncology about need for screening LDCT vs. metastatic monitoring. ? 3. M orbid obesity Notes: Patient's weight is inducing a restrictive pulmonary physiology. Weight loss indicated: Decrease calories, increase activity. * Procedure Codes: * Preventive Medicine: COVID Vaccination: H as patient had COVID Vaccination? COVID Vaccination Y es 09/02/2022 Immunization Status: P neumovacc p neumovacc 23-12/17/2021. I nfluenza 1 . Screenings/Counseling: F ALL RISK SCREENING Fall Risk Assessment: N o falls in the past year Are you afraid of falling? N o T OBACCO ACTION PLAN Patient counselled on the dangers of tobacco use and urged to quit. 0 12/18/2024 Former Educational materials on smoking cessation provided 0 12/18/2024 Former B IN ACTION PLAN Above Normal BMI Follow-up D ietary management education, guidance, and counseling * Follow Up: 1 Year (Reason: AIDAN) * * Sign off status: Completed Visit Status: C HK (Check Out) true * Provider: Citlali Capellan DO Date: 0 12/18/2024 Generated for Olivia cunningham/Gaby/Kennitting on: 0 06/26/2025 02:29 PM EDT History and Physical Notes * HPI (History of Present Illness) Category Sub-Category Detail Notes Category Not es [place] Sleepiness Scale [place] Sleepiness Scale Chance of dozing while sitting and reading:: 0 - Never Patient presents for a follow-up for AIDAN. DME: [facility]. Patient denies any complaints or concerns with her machine. Patient is compliant and reports great benefit. Patient reports recently receiving new supplies from [facility] for her PAP. Patient is under the care of [facility] Cardiology. Chance of dozing while watching TV:: 0 - Never Chance of dozing while sitting in a publ ic place:: 0 - Never Chance of dozing as a passen suzie in a car for an hour without a break:: 0 - Never Chance of dozing while lying down in the afternoon to rest:: 1 - Slight Chance Chance of dozing while sitting and talki ng to someone:: 0 - Never Chance of dozing while sitting quietly a fter lunch:: 0 - Never Chance of dozing in a stopped car for a few minutes in traffic:: 0 - Never TOTAL SCORE:: 1 Examination Category Sub-Category Detail Notes Category Not es Exam GENERAL APPEARANCE: Appears stated age Skin Normal Mouth [place] and moist Trachea Midline Chest Normal Respiratory Normal Movements, Ef fort Normal Auscultation Normal breath sounds Cardiac Regular rate and rhy thm Gastrointestinal Increased central ad iposity Vascular No edema Musculoskeletal Normal posture Neurological Focal, intact Psychiatric Alert and oriented x 3 Mentation/Cognition Normal Oropharynx Mallampati Class III . Macroglossia with tongue ridging
--- OUTSIDE RECORDS SUMMARY | 2025-06-23 10:08 | XMS_ITS ---
Author Organization [facility] [place] Address [address] [place] [address] Care Team Providers Care Program Support Clerk Name Role Phone Bayron Wells MD Primary Care Provider Unavailab Vic Fortune [phone] REASON FOR VISIT Letter/Appointment Encounters Encounter Location Date Provider Diagnosis Pulmonary Medicine [place] [address] [place] [address] 06/23/2025 Vic Capellan Plan Of Treatment No Information Progress Notes * Yoko RUTLEDGE ADOB: [birth year] (65 yo F)Acc No.[id number]:06/23/2025 Patient: Yoko MCKEON :1960 A ge:65 Y S ex:Female Address:[address] [place] [address], [phone] * true * Date: Generated for Printi ng/Faxing/eTransmitting on: 0 06/26/2025 02:30 PM EDT
--- OUTSIDE RECORDS SUMMARY | 2025-06-26 14:30 | XMS_ITS | Encounter Summary ---
Author Organization [facility] Address [address] [place] [address] Care Team Providers Care Lathe Sander Name Role Phone Bayron Wells MD Primary Care Provider Encounter Details Date Type Department Care Team [...] often do you attend chur ch or faith services? Patient declined 11/08/2023 Do you belong to any clubs o r organizations such as jewish groups, unions, fraternal or athletic groups, or [...] medical care, and heating? Patient declined 11/08/2023 [facility] - Occupational [...] place to sleep or slept in a [facility] (including now)? 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 Not on file Travel History Travel Start Travel End [place] 05/22/2025 05/26/2025 documented as of this encounter Plan of Treatment Upcoming Encounters Date Type Department Care Team (Late st Contact Info) Description 09/05/2025 11:00 AM EST Office Visit [facility] [address] [place] [address] Bayron Wells MD [address] [place] [address] documented as of this encounter Procedures Procedure Name Priority Date/Time Associated Diagnosis Comments VASC US LOWER EXTREMITY VENOUS DUPLEX RIGHT 11/04/2024 8:40 AM EST documented in this encounter Results * Vascular US lower extremity venous duplex right (11/04/2024 8:40 AM EST) Anatomical Region Laterality Modality Lower Extremities Ultrasound 11/04/2024 8:40 AM EST Narrative 11/04/2024 8:42 AM EST The [address] [address] Ultrasound Report Signed Patient: YOKO RUTLEDGE MR#: [id number] : 1960 Acct:[id number] Age/Sex: 64 / F ADM Date: 11/04/24 Loc: US Attending Dr: Hernando Regan Ordering Physician: Hernando Regan D.O. Date of Service: 11/04/24 Procedure(s): US venous doppler LE RT Accession Number(s): [id number] cc: Hernando Regan D.O.; Bayron Wells M.D. [place] [address] Patient Name: YOKO RUTLEDGE MRN: [facility]:[id number] date: 1960 Sex: F Assigned Patient Location: US Current Patient Location: US Accession/Order Number: [id number] Exam Date: 11/04/2024 07:50 Report Date: 11/04/2024 [...] Rodriguez M.D. Signed By: 11/04/2442 DD/ TD/TT: Conservation Assistant: Procedure Note Radiology, Radiologist, MD - 11/04/2024 [place] [address] Ultrasound Report Signed Patient: YOKO RUTLEDGE AMR#: [id number] : 8Acct:[id number] Age/Sex: 64 / FADM Date: 11/04/24 Loc: US Attending Dr: Hernando Regan Ordering Physician: Hernando Regan D.O. Date of Service: 11/04/24 Procedure(s): US venous doppler LE RT Accession Number(s): [id number] cc: Hernando Regan D.O.; Bayron Wells M.D. [place] [id number] Patient Name: YOKO RUTLEDGE MRN: [facility]:[id number] date: 1960 Sex: F Assigned Patient Location: US Current Patient Location: US Accession/Order Number: [id number] Exam Date: 11/04/2024 07:50 Report Date: 11/04/2024 [...] Rodriguez M.D. Signed By:11/04/2442 DD/ 9 TD/TT: Conservation Assistant: us Generic External Data Provider IMG US PROCEDURES Final Result documented in this encounter Visit Diagnoses Not on filedocumented in this encounter Care Teams Lathe Sander Relationship Specialty Start Date End Date Bayron Wells MD [address] [place] [address] PCP - General Family Medicine 05/21/24 documented as of this encounter
--- OUTSIDE RECORDS SUMMARY | 2025-06-26 14:30 | XMS_ITS | Clinical Summary ---
Author Organization [facility] Address [address] [place] [address] Care Team Providers Care Central Supply Aide Name Role Phone Bayron Wells MD Primary Care Provider [phone] Allergies No known active allergies Medications aspirin [...] (BMI) of 40.0 to 44.9 in adult ([facility]) Take 1 tablet (37.5 mg) by mouth in the morning. Take before meals. 30 tablet 5 06/28/20 25 Active phentermine (Adipex-P) 37.5 MG tabletIndications :Class 3 severe obesity due to excess calories with serious comorbidity and body mass index (BMI) of 45.0 to 49.9 in adult ([facility]) Take 1 tablet (37.5 mg) by [...] Vaginal atrophy 05/05/2023 08/22/2023 Malignant neoplasm of dial polisher ior wall of urinary bladder 02/22/2023 11/15/2023 Overview (08/22/2023): Added automatically from request for surgery [id number] Palpitations 11/17/2021 11/15/2023 Cardiovascular stress test abnormal 06/05/2020 11/15/2023 Dyspnea 06/05/2020 11/15/2023 Obesity 06/05/2020 08/22/2023 Cancer of breast, intraductal 06/13/2017 08/22/2023 Encounter for screening for osteoporosis 06/13/2017 08/22/2023 Arthritis 04/12/2017 08/22/2023 Encounters Date Type Department Care Team Description 05/29/2025 11:00 AM EDT Office Visit [facility] [address] [place] [address] Byaron Wells MD Medicare annual wellness visit, subsequent (Primary Dx); Dyslipidemia ; Essential hypertension ; Prediabetes; Encounter for long-term current use of medication; Class 3 severe obesity due to excess calories with serious comorbidity and body mass index (BMI) of 40.0 to 44.9 in adult ([facility]) 05/29/2025 Results Follow-Up [facility] [address] [place] [address] Bayron Wells MD ALL CBC WITH AUTO DIFF, HP LIVER PANEL, ALL BASIC METABOLIC PANEL, Additional followed-up results: 3 05/29/2025 Clinisync Result Encounter [facility] External Department Unsolicited Bayron Wells MD 05/29/2025 Bamboo flowsheet [facility] [address] [place] [address] Bayron Wells MD 05/28/2025 Travel 04/16/2025 Refill [facility] [address] [place] [address] Bayron Wlels MD Class 3 severe obesity due to excess calories with serious comorbidity and body mass index (BMI) of 45.0 to 49.9 in adult ([facility]) from Last 3 Months Immunizations Immunization [...] often do you attend chur ch or denominational services? 1 to 4 times per year 11/25/2024 Do you belong to any clubs o r organizations such as restoration groups, unions, fraternal or athletic groups, or [...] Recorded Patient Health Questionnaire-2 Score 0 05/29/2025 [facility] - Occupational [...] in a halfway (including now)? No 11/08/2023 Housing Stability Vital Sign Answer Dashawn e Recorded In the last 12 months, was t here a time when you were not able to pay the mortgage or rent on time? No 11/25/2024 In the past 12 months, how m any times have you moved where you were living? 0 11/25/2024 At any time in the past 12 m [facility], were you homeless or living in a halfway (including now)? 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 on file Travel History Travel Start Travel End [place] 05/22/2025 05/26/2025 Last Filed Vital Signs Vital [...] 09/05/2025 11:00 AM EST Office Visit [facility] [address] [place] [address] Bayron Wells MD [address] [place] [address] Health Maintenance Due Date Last Done Comments [...] Procedure Name Priority Date/Time Associated Diagnosis Comments MLR HEMOGLOBIN A1C Routine 05/29/2025 12 :13 PM EDT ALL THYROID STIM HORMONE Routine 05/29/2025 12:13 PM EDT ALL LIPID PROFILE (FASTING) Routine 05/29/2025 12:13 PM EDT ALL BASIC METABOLIC PANEL Routine 05/29/2025 12:13 PM EDT HMHP LIVER PANEL Routine 05/29/2025 12:1 3 PM EDT ALL CBC WITH AUTO DIFF Routine 12:13 PM EDT BI MAMMOGRAM SCREENING TOMOSYNTHESIS LEFT 05/09/2024 12:59 PM EDT from Last 3 Months or Most Recently Relevant to Health Maintenance Results * MLR HEMOGLOBIN A1C (05/29/2025 12:13 PM EDT) GLYCOHEMOGLOBIN A1C 5.3 4.5 - 6.2 % [facility] Comment: ADA RECOMMENDED LIMIT 4.0 - 6.0 ADA THERAPEUTIC TARGET < 7.0 ACTION SUGGESTED > 7.0 ESTIMATED AVERAGE GLUCOSE 105 mg/dL TB 05/29/2025 12:1 3 PM EDT 05/29/2025 12:14 PM EDT Narrative CLINISYNC - 05/29/2025 1:06 PM EDT us Bayron CARRINGTON Final Result Performing Organization Address [facility] Co de Phone Number [facility] * (ABNORMAL) [facility] LIVER PANEL (05/29/2025 12:13 PM EDT) BILIRUBIN TOTAL 0.5 0.2 - 1.0 mg/dL TB BILIRUBIN DIRECT 0.1 0.0 - 0.2 mg/dL TB ASPARTATE AMINO TRANSFERASE 40(H) 15 - 37 U/L TBH ALANINE AMINOTRANSFERASE 50 14 - 59 U/L TBH ALKALINE PHOSPHATASE 78 46 - 116 U/L TB TOTAL PROTEIN 7.5 6.4 - 8.2 g/dL TBH ALBUMIN LEVEL 3.7 3.4 - 5.0 g/dL TBH GLOBULIN 3.8 g/dL TB ALBUMIN GLOBULIN RATIO 1.0 TB 05/29/2025 12:1 3 PM EDT 05/29/2025 12:14 PM EDT Narrative CLINISYNC - 05/29/2025 1:06 PM EDT Bayron CARRINGTON Final Result [facility] * ALL THYROID STIM HORMONE (05/29/2025 12:13 PM EDT) THYROID STIMULATING HORMONE 1.381 0.358 - 3.740 uIU/mL TB 05/29/2025 12:1 3 PM EDT 05/29/2025 12:14 PM EDT Narrative CLINISYNC - 05/29/2025 1:06 PM EDT Bayron Wells MD CLINISYNC Final Result Performing Organization Address [facility] Co de Phone Number [facility] * ALL LIPID PROFILE (FASTING) (05/29/2025 12:13 PM EDT) TRIGLYCERIDES 144 <=150 mg/dL TBH CHOLESTEROL 147 <=200 mg/dL TB HDL CHOLESTEROL 52 40 - 60 mg/dL TB Comment: > or =60 mg/dl - LOW CARDIOVASCULAR RISK <40 mg/dl - HIGH CARDIOVASCULAR RISK LDL CHOLESTEROL CALCULATED 66.2 mg/dL TB Comment: <100 mg/dl OPTIMAL 100-129 mg/dl NEAR OR ABOVE OPTIMAL 130-159 mg/dl BORDERLINE HIGH 160-189 mg/dl HIGH >190 mg/dl VERY HIGH VLDL CHOLESTEROL 28.8 mg/dL TB CHOL HDL RATIO 2.8 TB Comment: 3.3 - 4.4 LOW RISK 4.4 - 7.1 AVERAGE RISK 7.1 - 11.0 MODERATE RISK >11.0 HIGH RISK 05/29/2025 12:1 3 PM EDT 05/29/2025 12:14 PM EDT Narrative CLINISYNC - 05/29/2025 1:06 PM EDT us Bayron Wells MD CLINISYCARMEN Final Result Performing Organization Address [facility]/ZIP Co de Phone Number [facility] * ALL CBC WITH AUTO DIFF (05/29/2025 12:13 PM EDT) TBH WBC 5.0 4.0 - 11.0 10 3/uL TBH TBH RBC 4.28 4.20 - 5.40 10 6/uL TBH TBH HGB 12.1 12.0 - 16.0 g/dL TBH TBH HCT 37.9 36.0 - 48.0 % TBH TBH MCV 88.6 81.0 - 99.0 fL TBH TBH MCH 28.3 26.7 - 34.0 pg TBH TBH MCHC 31.9 29.9 - 35.2 g/dL TBH TBH RDW 13.6 11.0 - 15.0 % TBH TBH PLT 195 150 - 450 10 3/uL TBH TBH MPV 9.7 9.5 - 13.5 fL TBH NEUTROPHILS PERCENT AUTO 61.7 43.0 - 75.0 % TBH LYMPHOCYTES PERCENT AUTO 26.6 20.5 - 60.0 % TBH MONOCYTES PERCENT AUTO 8.5 1.7 - 12.0 % TBH TBH EO % 2.4 0.9 - 7.0 % TBH BASOPHILS PERCENT AUTO 0.6 0.2 - 2.0 % TBH IMMATURE GRANULOCYTES PCT AUTO 0.2 0.0 - 0.5 % TBH NEUTROPHILS ABSOLUTE AUTO 3.1 1.4 - 6.5 10 3/uL TBH LYMPHOCYTES ABSOLUTE AUTO 1.3 1.2 - 3.8 10 3/uL TBH MONOCYTES ABSOLUTE AUTO 0.4 0.3 - 0.8 10 3/uL TBH TBH EO # 0.1 0.0 - 0.7 10 3/uL TBH BASOPHILS ABSOLUTE AUTO 0.0 0.0 - 0.1 10 3/uL TBH IMMATURE GRANULOCYTES ABS AUTO 0.01 0.00 - 0.03 10 3/uL TBH 05/29/2025 12:1 3 PM EDT 05/29/2025 12:14 PM EDT Narrative CLINISYNC - 05/29/2025 12:46 PM EDT us Bayron Wells MD [facility] Final Result [facility] * (ABNORMAL) ALL BASIC METABOLIC PANEL (05/29/2025 12:13 PM EDT) SODIUM 141 136 - 145 mmol/L TBH POTASSIUM 4.5 3.5 - 5.1 mmol/L TBH CHLORIDE 105 98 - 107 mmol/L TBH CARBON DIOXIDE 28.2 21.0 - 32.0 mmol/L TBH ANION GAP 12.3 TBH GLUCOSE 127(H) 74 - 106 mg/dL TBH BLOOD UREA NITROGEN 17.0 7.0 - 18.0 mg/dL TBH CREATININE 1.02 0.55 - 1.02 mg/dL TBH TBH EGFR-AF BURUNDIAN >60 >=60 mL/min/1.7 3m 2 TBH TBH EGFR-NON AF BURUNDIAN 54(L) >=60 mL/min/1.7 3m 2 TBH BUN CREATININE RATIO 16.7 TBH CALCIUM 9.7 8.5 - 10.1 mg/dL TBH 05/29/2025 12:1 3 PM EDT 05/29/2025 12:14 PM EDT Narrative CLINISYNC - 05/29/2025 1:06 PM EDT Bayron Wells MD CLINALFA Final Result [facility] * Left screening mammogram with tomosynthesis (05/09/2024 12:59 PM EDT) Anatomical Region Laterality Modality Breast Left Mammography 05/09/2024 12:5 9 PM EDT Narrative 05/09/2024 1:00 [place] [address] Mammography Report Signed Patient: YOKO RUTLEDGE MR#: [id number] : 1960 Acct:[id number] Age/Sex: 63 / F ADM Date: 05/09/24 Loc: MAMMO Attending Dr: Bayron Wells M.D. Ordering Physician: Bayron Wells M.D. Results: Date of Service: 05/09/24 Follow Up: Procedure(s): MM tomosynthesis screening LT Accession Number(s): [id number] cc: Bayron Wells M.D. Patient Name: YOKO RUTLEDGE MR#: [id number] : 1960 Exam Date: 05/09/2024 Ordering Doctor: [...] breast cancer at age 68. LOCATION: [facility] BREAST COMPOSITION: There are scattered areas of [...] Signed By: 05/09/24 1300 DD/ 1259 TD/TT: Ground Wirer: Procedure Note Radiology, Radiologist, MD - 05/09/2024 [place] [address] Mammography Report Signed Patient: YOKO RUTLEDGE [facility]R#: [id number] : 1960cct:[id number] Age/Sex: 63 / FADM Date: 05/09/24 Loc: MAMMO Attending Dr: Bayron Wells M.D. Ordering Physician: Bayron Wells M.D.Results: Date of Service: 05/09/24Follow Up: Procedure(s): MM tomosynthesis screening LT Accession Number(s): [id number] cc: Bayron Wells M.D. Patient Name: YOKO RUTLEDGE MR#: [id number] : 1960 Exam Date: 05/09/2024 Ordering Doctor: [...] breast cancer at age 68. LOCATION: [facility] BREAST COMPOSITION: There are scattered areas of [...] M.D. Signed By:05/09/24 1300 DD/ 1259 TD/TT: Ground Wirer: Bayron Wells MD IMG BI PROCEDURES Final Result from Last 3 Months or Most Recently Relevant to Health Maintenance Insurance [employer] Care Teams Central Supply Aide Relationship Specialty Start Date End Date Bayron Wells MD [address] [place] [address] PCP - General Family Medicine 05/21/24
--- OUTSIDE RECORDS SUMMARY | 2025-06-26 14:30 | XMS_ITS | Clinical Summary ---
Author Organization [facility] Address [address] [place] [address] Care Team Providers Care Forest Products Gatherer Name Role Phone Bayron Wells MD Primary Care Provider [phone] Eliseo Zelaya MD Unavailable Allergies Active Allergy [...] (02/22/2023): Added automatically from request for surgery [id number] Intermittent palpitations 11/17/20212022 Assessment & Plan (01/02/2024 [...] Risk 6.0 % 30-day risk of , CT, or cardiac arrest From a cardiac perspective [...] Sedation: General Attending Physician: Jenn Thompson MD Ski Maker: Cirilo Anguiano MD (Fellow) Procedure Details Informed [...] Most Recently Relevant to Health Maintenance Insurance [facility] Care Teams Forest Products Gatherer Relationship Specialty Start Date End Date Bayron Wells MD [address] [place] [address] PCP - General 02/22/23 Eliseo Zelaya MD [address] [place] [address] Consulting Physician Urology 02/22/23
--- OUTSIDE RECORDS SUMMARY | 2025-06-26 14:30 | XMS_ITS | Encounter Summary ---
Author Organization [facility] Address [address] [place] [address] Care Team Providers Care Waiter/Waitress Second Class Name Role Phone Bayron Wells MD Primary Care Provider [phone] Bayron Wells MD Unavailable Bayron Wells MD Primary Care Provider [phone] Encounter Details Date Type Department Care Team [...] often do you attend chur ch or worship services? Patient declined 11/08/2023 Do you belong to any clubs o r organizations such as buddhist groups, unions, fraternal or athletic groups, or [...] care, and heating? Patient declined 11/08/2023 [facility] - Occupational [...] file Travel History Travel Start Travel End [place] 05/22/2025 05/26/2025 documented as of this encounter Plan of Treatment Upcoming Encounters Date Type Department Care Team (Late st Contact Info) Description 09/05/2025 11:00 AM EST Office Visit [facility] [address] [place] [address] Bayron Wells MD [address] [place] [address] documented as of this encounter Procedures Procedure Name Priority Date/Time Associated Diagnosis Comments XR HAND 3+ VIEWS RIGHT 12/04/2023 3:36 PM EST documented in this encounter Results * XR hand 3+ views right (12/04/2023 3:36 PM EST) Anatomical Region Laterality Modality Upper Extremities, Hand Right Radiogra phic Imaging 12/04/2023 3:36 PM EST Narrative 12/04/2023 3:38 PM EST The [address] [place] [address] XRay Report Signed Patient: YOKO RUTLEDGE MR#: [id number] : 1960 Acct:[id number] Age/Sex: 63 / F ADM Date: 12/04/23 Loc: RAD Attending Dr: Long Crocker M.D. Ordering Physician: Long Crocker M.D. Date of Service: 12/04/23 Procedure(s): XR hand RT min 3V Accession Number(s): [id number] cc: Long Crocker M.D.; Bayron Wells M.D. The [place] [address] Patient Name: YOKO RUTLEDGE MRN: [id number] date: 1960 Sex: F Assigned Patient Location: [facility] Current Patient Location: [facility] Accession/Order Number: [id number] Exam Date: 12/04/2023 09:52 Report Date: 12/04/2023 [...] M.D. Signed By: 12/04/231537 DD/ 35 TD/TT: Bar And Filler Assembler: Procedure Note Radiology, Radiologist, MD - 12/05/2023 [place] [address] XRay Report Signed Patient: YOKO RUTLEDGE AMR#: [id number] : 1960cct:[id number] Age/Sex: 63 / FADM Date: 12/04/23 Loc: RAD Attending Dr: Long Crocker M.D. Ordering Physician: Long Crocker M.D. Date of Service: 12/04/23 Procedure(s): XR hand RT min 3V Accession Number(s): [id number] cc: Long Crocker M.D.; Bayron Wells M.D. The [place] [address] Patient Name: YOKO RUTLEDGE MRN: [facility]:[id number] date: 1960 Sex: F Assigned Patient Location: [facility] Current Patient Location: [facility] Accession/Order Number: [id number] Exam Date: 12/04/2023 09:52 Report Date: 12/04/2023 [...] M.D. Signed By:12/04/23 1538 DD/ 1536 TD/TT: Bar And Filler Assembler: us Generic External Data Provider IMG XR PROCEDURES Final Result documented in this encounter Visit Diagnoses Not on filedocumented in this encounter Care Teams Waiter/Waitress Second Class Relationship Specialty Start Date End Date Bayron Wells MD PCP - General Family Medicine 05/17/23 05/20/24 Bayron Wells MD [address] [place] [address] PCP - [facility] 12/29/2310/29 Bayron Wells MD [address] [place] [address] PCP - General Family Medicine 05/21/24 documented as of this encounter
--- OUTSIDE RECORDS SUMMARY | 2025-06-26 14:30 | XMS_ITS | Encounter Summary ---
Author Organization [facility] Address [address] [place] [address] Care Team Providers Care Broom Bundler Name Role Phone Bayron Wells MD Primary Care Provider Bayron Wells MD Unavailable Bayron Wells MD Primary Care Provider [phone] Encounter Details Date Type Department Care Team [...] often do you attend chur ch or mormonism services? Patient declined 11/08/2023 Do you belong [...] medical care, and heating? Patient declined 11/08/2023 [facility] - [...] place to sleep or slept in a correction (including now)? No 11/08/2023 Comments Unknown Sex [...] Office Visit [facility] [address] [place] [address] Bayron Wells MD [address] [place] [address] documented as of this encounter Procedures Procedure Name Priority Date/Time Associated Diagnosis Comments CA ECHO DOPPLER COMPLETE 01/11/2024 1:48 PM EDT documented in this encounter Results * CA ECHO DOPPLER COMPLETE (01/11/2024 1:48 PM EDT) Anatomical Region Laterality Modality Other 01/11/2024 1:48 PM EDT Narrative 01/11/2024 1:50 PM EDT The [address] [address] Cardiology Report Signed Patient: YOKO RUTLEDGE MR#: [id number] : 1960 Acct:[id number] Age/Sex: 63 / F ADM Date: 01/11/24 Loc: CARD Attending Dr: OZZY DANIELS Ordering Physician: OZZY DANIELS Date of Service: 01/11/24 Procedure(s): CA echo doppler complete Accession Number(s): [id number] cc: OZZY DANIELS; Bayron Wells M.D. Patient Name: YOKO RUTLEDGE MR#: [id number] : 1960 Exam Date: 01/11/2024 Ordering Doctor: [...] By: Kaylynn Feldman M.D. Signed By: 01/11/24 5706 DD/ 1348 TD/TT: Real Estate Financial Analyst: Procedure Note Radiology, Radiologist, - 01/11/2024 [place] [address] Cardiology Report Signed Patient: YOKO RUTLEDGE AMR#: [id number] : 8Acct:[id number] Age/Sex: 63 / FADM Date: 01/11/24 Loc: CARD Attending Dr: OZZY DANIELS Ordering Physician: OZZY DANIELS Date of Service: 01/11/24 Procedure(s): CA echo doppler complete Accession Number(s): [id number] cc: OZZY DANIELS; Bayron Wells M.D. Patient Name: YOKO RUTLEDGE MR#: [id number] : 1960 Exam Date: 01/11/2024 Ordering Doctor: [...] M.D. Signed By:01/11/24 1350 DD/ 1348 TD/TT: Real Estate Financial Analyst: us Generic External Data Provider [facility] Final Result documented in this encounter Visit Diagnoses Not on filedocumented in this encounter Care Teams Broom Bundler Relationship Specialty Start Date End Date Bayron Wells MD PCP - General Family Medicine 05/17/23 05/20/24 Bayron Wells MD [address] [place] [address] PCP - [facility] 12/29/2310/29 Bayron Wells MD [address] [place] [address] PCP - General Family Medicine 05/21/24 documented as of this encounter
--- OUTSIDE RECORDS SUMMARY | 2025-06-26 14:30 | XMS_ITS | Patient Health Record ---
Author Organization [facility] [place] Address [address] [place] [address] Care Team Providers Care Bisque Tile Burner Name Role Phone Bayron Wells MD Primary Care Provider UnavailVic Calloway Unavailable [phone] Allergies Allergen (clinical drug ingredient) Drug/Non Drug [...] Administration Date Status Comme nts Flu, Flucelvax (00172) 6 mos and older, single-dose syringe (3701-6895) Unknown 08/01/2024 Administered Pneumococcal (Pneumovax 23) Unknown [...] W/U Status Risk Notes Problem Morbid obesity (479301038) Morbid obesity (E66.01) Active confirmed Problem Obstructive sleep apnea syndrome (39690912) AIDAN (obstructive sleep apnea) (G47.33) Active confirmed Problem Ex-tobacco user (finding) (466156174) History of tobacco abuse (Z87.891) Active confirmed Problem Malignant tumor of urinary bladder (967591340) 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 Problem 760611944 Body mass index [BMI] 45.0-49.9, adult (Z68.42) [...] Encounter Location Date Provider Diagnosis Pulmonary Medicine [place] [address] [place] [address] 12/04/2024 [facility] [place] [address] [place] [address] 06/23/2025 [facility] [place] [address] [place] [address] 12/18/2024 Vic Capellan AIDAN (obstructive sleep apnea) G47.33 ; History of tobacco abuse Z87.891 ; Cancer of bladder wall C67.9 ; Morbid obesity E66.01 and Body mass index [BMI] 45.0-49.9, adult Z68.42 Assessments Encounter Date Diagnosis (ICD Code) Assessment Notes Treatment Notes Treatment Clinical Notes Section Notes 12/18/2024 AIDAN (obstructive sleep apnea) (ICD-10 - G47.33) Bkmq-ri-vgno encounter performed with the patient to document continued need for PAP therapy. -Current DME: [facility] 10/11/2021: AHI 30-Compliance was reviewed from 11/16/2024 - 12/15/2024-Total days used: (100%)-Total of all days >4 hours of use: (100%)-Current model, mode, & pressure: AirSense 11 AutoSet auto-CPAP 5-15 -Median pressure: 8.9vdV6L-Ljedqijq AHI: 0.7-Air leak (95th percentile): 1L/min-Mask/harnes s fitting: Fits great, no leak. Loves her nasal mask.-Sleep quality: Well-rested, sleeps great-Daytime hypersomnolence: Pretty much resolved.-Recommen dations: Continues to have superb compliance without any complaints or concerns today. No significant leak and AHI is 0.7. No changes this visit. Continue using CPAP @ HS/naps as she is.-Note: This rzna-wd-gudd visit comes with my authorization that the patient's DME may request to renew, reorder, and/or replace tubing, supplies, mask, and/or PAP device (if applicable). 12/18/2024 History of tobacco abuse (ICD-10 - Z87.891) 1ppd x 35 years, quit 2016. As [...] adult (ICD-10 - Z68.42) Plan Of Treatment No Information Insurance Providers Payer Name Payer Address Payer Phone Subscriber Number Group Number Insured Name Patient Relationship to Insured Coverage Start Date Coverage End Date [place] [address] [place] [address] [phone] [id number] Yoko Rutledge Self - patient is the insured 5 [facility] [place] [address] [place] [phone] [id number] Yoko Rutledge Self - patient is the [...]
--- OUTSIDE RECORDS SUMMARY | 2025-06-26 14:30 | XMS_ITS | Clinical Summary ---
Author Organization [facility] Address [address] [place] [address] Phone Care Team Providers Care Computer Tape Librarian Name Role Phone Unavailable Primary Care Provider [...]
--- OUTSIDE RECORDS SUMMARY | 2025-06-26 14:30 | XMS_ITS | Clinical Summary ---
Author Organization [employer] Address [id number] [address] [place] [address] Care Team Providers Care Pick Remover Name Role Phone Bayron Wells MD Primary Care Provider [phone] Allergies No known active allergies Medications olmesartan [...] file [employer] Care Teams Pick Remover Relationship Specialty Start Date End Date Bayron Wells MD PCP - General 04/12/17
--- OUTSIDE RECORDS SUMMARY | 2025-06-26 14:30 | XMS_ITS | Encounter Summary ---
Author Organization [facility] Address [address] [place] [address] Care Team Providers Care Stud Beef Cattle Farmer Name Role Phone Bayron Wells MD Primary Care Provider [phone] Bayron Wells MD Unavailable Bayron Wells MD Primary Care Provider [phone] Encounter Details Date Type Department Care Team (Late st Contact Info) Description 01/11/2024 Orders Only [facility] [address] [place] [address] Viktoriya Fitzpatrick MD [address] [place] [address] Social History Tobacco Use Types [...] How often do you attend chur or orthodox services? Patient declined 11/08/2023 Do you belong to any clubs o r organizations such as methodist groups, unions, fraternal or athletic groups, or [...] medical care, and heating? Patient declined 11/08/2023 [facility] Occupational Stress Questionnaire Answer [...] Travel Start Travel End [place] 05/22/2025 05/26/2025 documented as of this encounter Plan of Treatment Upcoming Encounters Date Type Department Care Team (Late st Contact Info) Description 09/05/2025 11:00 AM EST [facility] [address] [place] [address] Bayron Wells MD [address] [place] [address] documented as of this encounter Procedures Procedure [...] on filedocumented in this encounter Care Teams Stud Beef Cattle Farmer Relationship Specialty Start Date End Date Bayron Wells MD PCP - General Family Medicine 05/17/23 05/20/24 Bayron Wells MD [address] [place] [address] PCP - [facility] 12/29/2310/29 Bayron Wells MD [address] [place] [address] PCP - General Family Medicine 05/21/24 documented as of this encounter
--- OUTSIDE RECORDS SUMMARY | 2025-06-26 14:30 | XMS_ITS | Encounter Summary ---
Author Organization [facility] Address [address] [place] [address] Care Team Providers Care Employment Case Manager Name Role Phone Bayron Wells MD Primary Care Provider [phone] Bayron Wells MD Unavailable Bayron Wells MD Primary Care Provider [phone] Encounter Details Date Type Department Care Team (Late st Contact Info) Description 05/09/2024 Clinisync Result Encounter [facility] External Department Unsolicited Bayron Wells MD [address] [facility] [place] [address] Social History Tobacco Use Types [...] How often do you attend chur or shinto services? Patient declined 11/08/2023 Do you belong to any clubs o r organizations such as amish groups, unions, fraBarre or athletic groups, or school groups? No [...] medical care, and heating? Patient declined 11/08/2023 [facility] - Occupational Stress Questionnaire Answer Date [...] in a alf (including now)? 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 Not on file Travel History Travel Start Travel End [place] 05/22/2025 05/26/2025 documented as of this encounter Plan of Treatment Upcoming Encounters Date Type Department Care Team (Late st Contact Info) Description 09/05/2025 11:00 AM EST [facility] [address] [place] [address] Bayron Wells MD [address] [place] [address] documented as of this encounter Procedures Procedure Name Priority Date/Time Associated Diagnosis Comments BI MAMMOGRAM SCREENING TOMOSYNTHESIS LEFT 05/09/2024 12:59 PM EDT documented in this encounter Results * Left screening mammogram with tomosynthesis (05/09/2024 12:59 PM EDT) Anatomical Region Laterality Modality Breast Left Mammography 05/09/2024 12:5 9 PM EDT Narrative 05/09/2024 1:00 PM EDT The [place] [id number] Mammography Report Signed Patient: YOKO RUTLEDGE MR#: [id number] : 1960 Acct:[id number] Age/Sex: 63 / F ADM Date: 05/09/24 Loc: MAMMO Attending Dr: Bayron eWlls M.D. Ordering Physician: Bayron Wells M.D. Results: Date of Service: 05/09/24 Follow Up: Procedure(s): MM tomosynthesis screening LT Accession Number(s): [id number] cc: Bayron Wells M.D. Patient Name: YOKO RUTLEDGE MR#: [id number] : 1960 Exam Date: 05/09/2024 Ordering Doctor: [...] 70. LOCATION: The [facility] BREAST COMPOSITION: There are scattered areas [...] Signed By: 05/09/24 1300 DD/ 1259 TD/TT: Director Consumer Affairs: Procedure Note Radiology, Radiologist, - 05/09/2024 [place] [address] Mammography Report Signed Patient: YOKO RUTLEDGE AMR#: [id number] : 8Acct:[id number] Age/Sex: 63 / FADM Date: 05/09/24 Loc: MAMMO Attending Dr: Bayron Wells M.D. Ordering Physician: Bayron Wells M.D.Results: Date of Service: 05/09/24Follow Up: Procedure(s): MM tomosynthesis screening LT Accession Number(s): [id number] cc: Bayron Wells M.D. Patient Name: YOKO RUTLEDGE MR#: [id number] : 1960 Exam Date: 05/09/2024 Ordering Doctor: [...] 70. LOCATION: [facility] BREAST COMPOSITION: There are scattered areas [...] M.D. Signed By:05/09/24 1300 DD/ 1259 TD/TT: Director Consumer Affairs: Bayron Wells MD IMG BI PROCEDURES Final Result documented in this encounter Visit Diagnoses Not on filedocumented in this encounter Care Teams Employment Case Manager Relationship Specialty Start Date End Date Bayron Wells MD PCP - General Family Medicine 05/17/23 05/20/24 Bayron Wells MD [address] [place] [address] PCP - [facility] 12/29/2310/29 Bayron Wells MD [address] [place] [address] PCP - General Family Medicine 05/21/24 documented as of this encounter
--- OUTSIDE RECORDS SUMMARY | 2025-06-26 14:30 | XMS_ITS ---
Author Organization [facility] Address [address] [place] [address] Care Team Providers Care Service Parts Coordinator Name Role Phone Bayron Wells MD Primary Care Provider Eliseo Zelaya MD Unavailable Active Problems Problem [...] (02/22/2023): Added automatically from request for surgery [id number] Intermittent palpitations 11/17/20212022 Assessment & Plan (01/02/2024 [...] Zelaya MD Linked Problems Malignant neoplasm of command post superintendent ior wall of urinary bladder (CMS/HCC) Treatment Medications DOCEtaxel (Taxotere) intrave sicular 37.5 mg in 53.75 mL of 0.9% sodium chloridegemcitabine (Gemzar) intravesicular 1000 mg in 60 mL SWFI OP Intravesicular Gemcitabine / DOCEtaxel Maintenance, Monthly x 12 - Bladder* Plan Start Date:07/06/2023 Plan Provider:Eliseo Zelaya MD Linked Problems Malignant neoplasm of command post superintendent ior wall of urinary bladder (CMS/HCC) Treatment [...]
--- OUTSIDE RECORDS SUMMARY | 2025-06-26 14:30 | XMS_ITS | Encounter Summary ---
Author Organization [facility] Address [address] [place] [address] Care Team Providers Care Roll Tender Name Role Phone Bayron Wells MD Primary Care Provider [phone] Encounter Details Date Type Department Care Team ([facility] Contact Info) Description 05/29/2025 Results [facility] [address] [place] [address] Bayron Wells MD [address] [place] [address] ALL CBC WITH AUTO DIFF, HP LIVER PANEL, ALL BASIC METABOLIC PANEL, Additional followed-up results: 3 Social History Tobacco Use Types Packs/Day Years [...] often do you attend chur ch or adventism services? 1 to 4 times per year 11/25/2024 Do you belong to any clubs o r organizations such as tenriism groups, unions, fraternal or athletic groups, or [...] Recorded Patient Health Questionnaire-2 Score 0 05/29/2025 [facility] Occupat ional Health - Occupational Stress [...] any time in the past 12 m [facility], were you homeless or living in [...] file Travel History Travel Start Travel End [place] 05/22/2025 05/26/2025 documented as of this encounter Functional Status * Over the past 2 weeks, how often have you been bothered by any of the following problems? Question Answer Date of Assessment Author Little interest or pleasure in doing things Not at all 05/29/2025 11:00 AM Bev German M A Feeling down, depressed, or hopeless Not at all 05/29/2025 11:00 AM Bev German M A Patient Health Questionnaire -2 Score 0 05/29/2025 11:00 AM Bev German M A * Question Answer Date of Assessment Author Trouble falling or staying asleep, or sleeping too much Several days 05/29/2025 11:00 AM Bev German MA Feeling tired or having yousuf le energy Not at all 05/29/2025 11:00 AM Bev German M A Poor appetite or overeating Not at all 05/29/2025 11 :00 AM Bev German MA Feeling bad about yourself - or that you are a failure or have let yourself or your family down Not at all 05/29/2025 11:00 AM Bev German M A Trouble concentrating on things, such as reading the newspaper or watching television Not at all 05/29/2025 11:00 AM Bev German M A Moving or speaking so slowly that other people could have noticed? Or the opposite - being so fidgety or restless that you have been moving around a lot more than usual. Not at all 05/29/2025 11:00 AM Bev German MA Thoughts that you would be better off or hurting yourself in some way Not at all 05/29/2025 11:00 AM Bev German MA Patient Health Questionnaire -9 Score 1 05/29/2025 11:00 AM Bev German M A documented as of this encounter Plan of Treatment Upcoming Encounters Date Type Department Care Team (Late st Contact Info) Description 09/05/2025 11:00 AM EST Office Visit [facility] [address] [place] [address] Bayron Wells MD [address] [place] [address] documented as of this encounter Visit Diagnoses Not on filedocumented in this encounter Additional Health Concerns Assessment Noted Time PHQ-9 Depression Total Score: 1 05/29/20 25 11:00 AM EDT documented as of this encounter Care Teams Roll Tender Relationship Specialty Start Date End Date Bayron Wells MD [address] [place] [address] PCP - General Family Medicine 05/21/24 documented as of this encounter
--- OUTSIDE RECORDS SUMMARY | 2025-06-26 14:30 | XMS_ITS | Encounter Summary ---
Author Organization [facility] Address [address] [place] [address] Care Team Providers Care Neurodiagnostic Technician Name Role Phone Bayron Wells MD Primary Care Provider [phone] Bayron Wells MD Unavailable Bayron Wells MD Primary Care Provider [phone] Encounter Details Date Type Department Care Team (Late st Contact Info) Description 01/16/2024 Orders Only [facility] [address] [place] [address] Bayron Wells MD [address] [place] [address] Social History Tobacco Use Types Packs/Day Years [...] How often do you attend chur or sabianism services? Patient declined 11/08/2023 Do you belong [...] medical care, and heating? Patient declined 11/08/2023 [facility] Questionnaire Answer Date [...] file Travel History Travel Start Travel End [place] 05/22/2025 05/26/2025 documented as of this encounter Plan of Treatment Upcoming Encounters Date Type Department Care Team (Late st Contact Info) Description 09/05/2025 11:00 AM EST [facility] [address] [place] [address] Bayron Wells MD [address] [place] [address] documented as of this encounter Visit Diagnoses Not on filedocumented in this encounter Care Teams Neurodiagnostic Technician Relationship Specialty Start Date End Date Bayron Wells MD PCP - General Family Medicine 05/17/23 05/20/24 Bayron Wells MD [address] [place] [address] PCP - [facility] 12/29/2310/29 Bayron Wells MD [address] [place] [address] PCP - General Family Medicine 05/21/24 documented as of this encounter
--- OUTSIDE RECORDS SUMMARY | 2025-06-26 14:31 | XMS_ITS | Patient Health Record ---
Author Organization [facility] Address [address] [place] [address] Care Team Providers Care Chiseler Head Name Role Phone Bayron Wells Primary Care Provider Amol [facility] [phone] Reason For Referral No Information Social History [...] Insured Coverage Start Date Coverage End Date [employer] [address] [place] [address] [id number] DANIELLA BEJARANO Self - patient is [...]
--- OUTSIDE RECORDS SUMMARY | 2025-06-26 14:31 | XMS_ITS | Encounter Summary ---
Author Organization [facility] Address [address] [place] [address] Care Team Providers Care Stone Polisher Hand Name Role Phone Bayron Wells MD Unavailable Bayron Wells MD Primary Care Provider [phone] Encounter Details Date Type Department Care Team (Late st Contact Info) Description 07/12/2024 Orders Only [facility] [address] [place] [phone] Bayron Wells MD [address] [place] [address] Social History Tobacco Use Types Packs/Day Years [...] How often do you attend chur or episcopal services? Patient declined 11/08/2023 Do you belong to any clubs o r organizations such as worship groups, unions, fraFreebeepay or athletic groups, or school groups? No [...] medical care, and heating? Patient declined 11/08/2023 [facility] - Occupational Stress Questionnaire Answer Date [...] place to sleep or slept in a mcc (including now)? No 11/08/2023 Comments Unknown Sex [...] 09/05/2025 11:00 AM EST [facility] [address] [place] [address] Bayron Wells MD [address] [place] [phone] documented as of this encounter Visit Diagnoses Not on filedocumented in this encounter Care Teams Stone Polisher Hand Relationship Specialty Start Date End Date Bayron Wells MD [address] [place] [phone] PCP - Patricio [employer] 12/29/2310/29 Bayron Wells MD [address] [place] [address] PCP - General Family Medicine 05/21/24 documented as of this encounter
--- OUTSIDE RECORDS SUMMARY | 2025-06-26 14:31 | XMS_ITS | Encounter Summary ---
Author Organization [facility] Address [address] [place] [address] Care Team Providers Care Core Layer Machine Operator Name Role Phone Bayron Wells MD Primary Care Provider [phone] Encounter Details Date Type Department Care Team ([facility] Contact Info) Description 01/29/2025 Orders Only [facility] [address] [place] [address] Dina Cobb MD [address] [place] [address] Social History Tobacco Use Types [...] do you attend chur or hindu services? 1 to 4 times per year [...] care, and heating? Not very hard 11/25/2024 [facility] - Occupational [...] any time in the past 12 m [facility], were you homeless or living in [...] Visit [facility] [address] [place] [address] Bayron Wells MD [address] [place] [address] documented as of this encounter Procedures Procedure [...] on filedocumented in this encounter Care Teams Core Layer Machine Operator Relationship Specialty Start Date End Date Bayron Wells MD [address] [place] [phone] PCP - General Family Medicine 05/21/24 documented as of this encounter
--- OUTSIDE RECORDS SUMMARY | 2025-06-26 14:31 | XMS_ITS | Encounter Summary ---
Author Organization [facility] Address [address] [place] [address] Care Team Providers Care Wire Spooler Name Role Phone Bayron Wells MD Primary Care Provider [phone] Encounter Details Date Type Department Care Team ([facility] Contact Info) Description 01/28[facility]2025 [facility] [address] [place] [address] Bayron Wells MD [address] [place] [address] Social History Tobacco Use Types Packs/Day Years [...] often do you attend chur ch or gnosticist services? 1 to 4 times per year [...] care, and heating? Not very hard 11/25/2024 [facility] - Occupational [...] place to sleep or slept in a group home (including now)? No 11/08/2023 Housing Stability Vital Sign Answer Dashawn e Recorded In the last 12 months, was t here a time when you were not able to pay the mortgage or rent on time? No 11/25/2024 In the past 12 months, how m any times have you moved where you were living? 0 11/25/2024 At any time in the past [address] [facility], were you homeless or living in a group home (including now)? No 11/25/2024 Comments Unknown Sex [...] Office Visit [facility] [address] [place] [address] Bayron Wells MD [address] [place] [address] documented as of this encounter Visit Diagnoses Not on filedocumented in this encounter Care Teams Wire Spooler Relationship Specialty Start Date End Date Bayron Wells MD [address] [place] [address] PCP - General Family Medicine 05/21/24 documented as of this encounter
--- OUTSIDE RECORDS SUMMARY | 2025-06-26 14:31 | XMS_ITS | Encounter Summary ---
Author Organization [facility] Address [address] [place] [address] Care Team Providers Care Sourcing Analyst Name Role Phone Bayron Wells MD Primary Care Provider [phone] Eliseo Zelaya MD Unavailable Encounter Details Date Type Department Care Team (Late st Contact Info) Description 03/28/2023 Lab Requisition [facility] [address] [place] [phone] Eliseo Zelaya MD [address] [facility] [place] [address] Carcinoma in situ of bladder [...] PM EDT) Case Report PATHOLOGY CONSULT Case: [id number] Authorizing Provider: Eliseo Zelaya MD Collected: 03/28/2023 1439 Ordering Location: [facility] Lab Received: 03/28/2023 1441 Pathologist: Adelita Peralta MD Specimens: A) - Urine, Cytology B) - Ureteral washing, Right, Thin Prep C) - Ureteral washing, Left, Thin Prep 03/30/2023 10:12 AM EDT [facility] Final Diagnosis A. Urine, cytology ([id number], 1 slide, collected on 12-07-22): - Rare atypical urothelial cells present (see comment) B. Right ureteral washing, cytology ([id number], 1 slide, collected on 12-28-22): - Non-diagnostic (see comment) C. Left ureteral washing, cytology ([id number], 1 slide, collected on 12-28-22) - Non-diagnostic (see comment) 03/30/2023 10:12 AM EDT [facility] ([facility]) at 1012 EDT Clinical Information Bladder cancer 03/30/2023 10:12 AM EDT [facility]) Comment A. The specimen is extremely hypocellular and is limited by scant material. B. The specimen is essentially acellular. C. The specimen is extremely hypocellular and is limited by scant material. 03/30/2023 10:12 AM EDT [facility] ([facility]) Gross Description A. Urine. Received from [facility], [address] [place] [address], is one (1) previously stained glass slide accessioned [id number], collected on 12-07-22. The slide is accompanied by a copy of the contributing pathologists report. B. Ureteral washing. Received from [facility], [address] [place] [address], is one (1) previously stained glass slide accessioned [id number] , collected on 12-28-22. The slide is accompanied by a copy of the contributing pathologists report. C. Ureteral washing. Received from [facility], [address] [place] [address], is one (1) previously stained glass slide accessioned [id number] , collected on 12-28-22. The slide is accompanied by a copy of the contributing pathologists report. 03/30/2023 10:12 AM EDT [facility]) Tissue Urine specimen / Unknown 03/28/2023 2:39 PM EDT 03/28/2023 2:41 PM EDT Tissue specimen (specimen) (Ureteral washing) 03/28/2023 2:39 PM EDT 03/28/2023 2:41 PM EDT Tissue specimen (specimen) (Ureteral washing) 03/28/2023 2:39 PM EDT 03/28/2023 2:41 PM EDT us Eliseo Zelaya MD LAB PATHOLOGY ORDERABLES Final R esult [facility] ([place]) [address] [place] [address] documented in this encounter Visit Diagnoses Diagnosis Carcinoma in situ of bladder documented in this encounter Care Teams Sourcing Analyst Relationship Specialty Start Date End Date Bayron Wells MD [address] [place] [address] PCP - General 02/22/23 Eliseo Zelaya MD [address] [place] [phone] Consulting Physician Urology 02/22/23 documented as of this encounter
--- OUTSIDE RECORDS SUMMARY | 2025-06-26 14:31 | XMS_ITS | Encounter Summary ---
Author Organization [facility] Address [address] [place] [address] Care Team Providers Care Company Secretary Name Role Phone Bayron Wells MD Primary Care Provider [phone] Encounter Details Date Type Department Care Team ([facility] Contact Info) Description 12/04/2024 [facility] [address] [place] [address] Bayron Wells MD [address] [place] [address] Social History Tobacco Use Types Packs/Day Years [...] often do you attend chur ch or rastafari services? 1 to 4 times per year 11/25/2024 Do you belong to any clubs o r organizations such as muslim groups, unions, fraternal or athletic groups, or [...] care, and heating? Not very hard 11/25/2024 [facility] - Occupational [...] any time in the past 12 m [facility], were you homeless or living in a [...] Office Visit [facility] [address] [place] [address] Bayron Wells MD [address] [place] [address] documented as of this encounter Visit Diagnoses Not on filedocumented in this encounter Care Teams Company Secretary Relationship Specialty Start Date End Date Bayron Wells MD [address] [place] [address] PCP - General Family Medicine 05/21/24 documented as of this encounter
--- OUTSIDE RECORDS SUMMARY | 2025-06-26 14:31 | XMS_ITS | Encounter Summary ---
Author Organization [facility] Address [address] [place] [address] Care Team Providers Care Head Waiter Name Role Phone Bayron Wells MD Primary Care Provider [phone] Eliseo Zelaya MD Unavailable Encounter Details Date Type Department Care Team (Late st Contact Info) Description 03/28/2023 Lab Requisition [facility] [address] [place] [phone] Eliseo Zelaya MD [address] [facility] [place] [address] Social History Tobacco Use Types [...] PM EDT) Case Report PATHOLOGY CONSULT Case: [id number] Authorizing Provider: Eliseo Zelaya MD Collected: 03/28/2023 1418 Ordering Location: [facility] Lab Received: 03/28/2023 1420 Pathologist: Kari Marte MD Specimens: A) - Soft Tissue, Left lateral bladder wall biopsy B) - Soft Tissue, Bladder dome biopsy C) - Soft Tissue, Right lateral bladder wall biopsy D) - Soft Tissue, Right posterior bladder wall biopsy 04/04/2023 3:41 PM EDT [facility]) Final Diagnosis A. Left lateral [...] negative for carcinoma. 04/04/2023 3:41 PM EDT [facility]) at 1541 EDT Clinical Information Bladder Cancer 04/04/2023 3:41 PM EDT [facility]) Gross Description A. Soft Tissue. Received from [facility], [address] [place] [address]. [place] [phone], are five (5) previously stained glass slides accessioned [id number] , collected on 12-28-22. The slides are accompanied by a copy of the contributing pathologists report. B. Soft Tissue. Received from [facility], [address] [place] [address]. [place] [address], are two (2) previously stained glass slides accessioned [id number] , collected on 12-28-22. The slides are accompanied by a copy of the contributing pathologists report. C. Soft Tissue. Received from [facility], [address] [place] [address]. [place] [address], are two (2) previously stained glass slides accessioned [id number] , collected on 12-28-22. The slides are accompanied by a copy of the contributing pathologists report. D. Soft Tissue. Received from [facility], [address] [place] [address], are five (5) previously stained glass slides accessioned [id number] , collected on 12-28-22. The slides are accompanied by a copy of the contributing pathologists report. 04/04/2023 3:41 PM EDT [facility] Tissue (Soft Tissue) 03/28/2023 2:18 PM EDT 03/28/2023 2:20 PM EDT Tissue specimen (specimen) (Soft Tissue) 03/28/2023 2:18 PM EDT 03/28/2023 2:20 PM EDT Tissue specimen (specimen) (Soft Tissue) 03/28/2023 2:18 PM EDT 03/28/2023 2:20 PM EDT Tissue specimen (specimen) (Soft Tissue) 03/28/2023 2:18 PM EDT 03/28/2023 2:20 PM EDT us Eliseo Zelaya MD LAB PATHOLOGY ORDERABLES Final R esult [facility] [address] [place] [address] documented in this encounter Visit Diagnoses Not on filedocumented in this encounter Care Teams Head Waiter Relationship Specialty Start Date End Date Bayron Wells MD [address] [place] [address] PCP - General 02/22/23 Eliseo Zelaya MD [address] [place] [address] Consulting Physician Urology 02/22/23 documented as of this encounter
--- OUTSIDE RECORDS SUMMARY | 2025-06-26 14:31 | XMS_ITS | Encounter Summary ---
Author Organization [facility] Address [address] [place] [address] Care Team Providers Care Worm Picker Name Role Phone Bayron Wells MD Primary Care Provider [phone] Eliseo Zelaya MD Unavailable Encounter Details Date Type Department Care Team (Late st Contact Info) Description 03/28/2023 Orders Only [facility] [address] [place] [phone] Zaria Jackson MA Social History Tobacco Use [...] on filedocumented in this encounter Care Teams Worm Picker Relationship Specialty Start Date End Date Bayron Wells MD [address] [place] [address] PCP - General 02/22/23 Eliseo Zelaya MD [address] [facility] [place] [phone] Consulting Physician Urology 02/22/23 documented as of this encounter
[2025-06-26 14:54] LABS: Hematocrit 38.2 % (36.0-48.0); Hemoglobin 12.4 g/dL (12.0-16.0); Immature Granulocytes Abs Auto 0.01 10^3/uL (0.00-0.03); Immature Granulocytes Pct Auto 0.2 % (0.0-0.5); Lymphocytes Absolute Auto 1.5 10^3/uL (1.2-3.8); Mean Corpuscular HGB Conc 32.5 g/dL (29.9-35.2); Mean Corpuscular Hemoglobin 28.5 pg (26.7-34.0); Mean Corpuscular Volume 87.8 fL (81.0-99.0); Platelet Count 208 10^3/uL (150-450); Red Blood Count 4.35 10^6/uL (4.20-5.40); White Blood Count 6.3 10^3/uL (4.0-11.0)
--- OUTSIDE RECORDS SUMMARY | 2025-06-26 15:04 | XMS_ITS | CCD ---
Author Organization [facility] Care Team Providers Care Laser Cutter Name Role Phone UNKNOWN, PROVIDER Admitting Unavailable UNKNOWN, PROVIDER Attending Unavailable SELF, REFERRED Referring Unavailable SHANTAEREBAYRON Narvaez Primary Care Unavailable NADERER, BAYRON Primary Care Physician LUE ., DINA [...] Primary Care Provider Jeff Cordova Attending Provider Jeff Cordova Attending Unavailable Jeff Cordova Admitting Unavailable Priscilla, Bayron Primary Care Unavailable Bayron Singh MD Unavailable Bayron Singh MD Primary Care Provider JENN VIEIRA Admitting Unavailable JENN VIEIRA Attending Unavailable MYRNA CORDOVA Referring Unavailable NASRA BUSTOS Attending Unavailable DIETER, FIRAS Attending Unavailable DIETER, FIRAS Attending Unavailable JEREMIAH, OZZY Attending Unavailable DIETER, FIRAS Attending Unavailable JEREMIAH, OZZY Attending Unavailable DIETER, FIRAS Attending Unavailable Adamowicz, Jeff Attending Unavailable Adamowicz, Jeff Referring Unavailable Lue, Dina M. Admitting Unavailable Lue, Dina M. Attending Unavailable Lue, Dina M. Referring Unavailable Lue, Dina M. Admitting Unavailable Lue, Dina M. Attending Unavailable Lue, Dina M. Referring Unavailable Lue, Dina M. Attending Unavailable Lue, Dina M. Attending Unavailable Lue, Dina M. Referring Unavailable Lue, Dina M. Admitting Unavailable NADERER, BAYRON Attending Unavailable NADERER, BAYRON Attending Unavailable MYRNA CORDOVA Attending Unavailable NADERER, BAYRON Attending Unavailable NADERER, BAYRON Attending Unavailable NADERER, BAYRON Attending Unavailable Allergies Allergy Classification Reported Allergen(s) Allergy Type Date of Onset Reaction(s) Facility (20 sources) Acetaminophen / oxyCODONE; 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: [acetaminophen-ox ycodone] Drug Allergy Headache (finding) [facility] (1 source) Acetaminophen / oxyCODONE Drug Allergy 9 [facility] (8 sources) Acetaminophen / oxyCODONE; [...] Refills(s) 0 Start Date: 07/07/21 Status: Ordered Repeat number: 1 Start: 03-26-2020 take 81 mg by mouth once daily Aspirin Active 81 MG PO Daily March 26, 2020 12:00am azelastine hydrochloride 0.5 mg/ml ophthalmic solution (20 sources) Histamine-1 Receptor Antagonist take 1 drop(s) [...] 12:00am cyclobenzaprine hydrochloride 10 mg oral tablet (20 sources) Muscle Relaxant take 1 tablet by mouth three times daily as needed for muscle spasms cyclobenzaprine (Flexeril) 10 MG tablet Take 10 mg by mouth 3 (three) times a day as needed for muscle spasms. Active estradiol 0.1 mg/ml vaginal cream (13 sources) Estrogen Start: 022 Estrace 0.1 mg/g Cream See Instructions, 42.5 gm, Refill(s) 2, Apply a pea size amount around the urethra and vagina, 3x a wk for 4 wks, then 2x a week afterwards., [facility]/pharmacy #[id number], 163, cm, 06/22/22 8:33:00 EDT, Height/Length Dosing, 115, kg, 06/22/22 8:33:00 EDT, Weight Dosing Start Date: 06/22/22 Status: Ordered Quantity: 42.5 Unit: g Repeat number: 3 fluconazole 150 mg oral tablet (2 sources) Azole Antifungal Start: 023 take 1 tablet by mouth once Diflucan 150 mg Tab 150 mg = 1 tab(s), Oral, Once, # 1 tab(s), Refills(s) 0, Pharmacy: [facility]/pharmacy #[id number], 163, cm, 10/26/22 10:27:00 [...] Daily as needed (Edema) 11/26/2024 Active Start: 07-07-2021 End: 11-26-2024 take 1 mg by mouth once daily Lasix 20 mg Tab mg tab(s ), Oral, Daily, Refills(s) 0 Start Date: 07/07/21 Status: Ordered Repeat number: 1 24 hr mirabegron 50 mg extended release oral tablet (5 sources) beta3-Adrenergic Agonist Start: 01-04-2023 take 1 tablet by mouth once daily Myrbetriq 50 mg oral tablet, extended release 50 mg = 1 tab(s), Oral, Daily, # 30 tab(s), Refills(s) 11, Pharmacy: [facility]/pharmacy #[id number], 163, cm, 01/04/23 8:04:00 EST, Height/Length Dosing, 115, kg, 01/04/23 8:04:00 EST, Weight Dosing Start Date: 01/04/23 Status: Ordered Start: 10-14-2022 take [address] [facility] once daily Myrbetriq 50 mg oral tablet, extended release 50 mg = 1 tab(s), Oral, Daily, # 30 tab(s), Refills(s) 11, Pharmacy: [facility]/pharmacy #[id number], 163, cm, 10/12/22 8:12:00 EST, Height/Length Dosing, 115, kg, 10/12/22 8:12:00 EST, Weight Dosing Start Date: 10/14/22 Status: Ordered multivitamin with minerals (4 sources) Start: 04-26-2023 take 1 tablet by mouth once daily multivitamin with minerals 1 tab, Oral, Daily, Refill(s) 0 Start Date: 04/26/23 Status: Ordered Repeat number: 1 Start: 04-26-2023 take 1 tablet by justo th once daily multivitamin with minerals 1 tab, Oral, Daily, Refill(s) 0 Start Date: 04/26/23 Status: Ordered nabumetone 750 mg oral tablet (20 sources) Nonsteroidal Anti-inflammatory Drug Start: 04-26-2023 take 1 tablet by mouth once daily nabumetone 750 mg Tab 750 mg, Oral, Daily, Refills(s) 0 Start Date: 04/26/23 Status: Ordered Repeat number: 1 olmesartan medoxomil 40 mg oral tablet (20 sources) Angiotensin 2 Receptor Neal Start: 07-07-2021 take 1 tablet by mouth once daily olmesartan (Benicar) 40 MG tablet Indications: Essential hypertension Take 1 tablet (40 mg) by mouth Daily 90 tablet 3 10/03/2024 Active Start: 03-26-2020 take 1 tablet by [...] tablet (20 sources) Proton Pump Inhibitor Start: 07-07-2021 take 1 tablet by mouth in the morning pantoprazole (ProtoNix) 40 MG EC tablet Indications: GERD without esophagitis Take 1 tablet (40 mg) by mouth in the morning and 1 tablet (40 mg) before bedtime. 180 tablet 3 10/03/2024 Active phentermine hydrochloride 37.5 mg oral tablet (20 sources) Sympathomimetic Amine Anorectic Start: 11-27-2024 End: 06-28-2025 take 40-44.9 tablets by mouth before mealtime phentermine (Adipex-P) 37.5 MG tablet Indications: Class 3 severe obesity due to excess calories with serious comorbidity and body mass index (BMI) of 40.0 to 44.9 in adult ([facility]) Take 1 tablet (37.5 mg) by mouth in the morning. Take before meals. 30 tablet 05/29/2025 06/28/2025 Active polyethylene glycol 3350 20277 mg powder for oral solution (4 sources) [...] chloride 10 meq extended release oral tablet (20 sources) Start: 01-21-2025 End: 01-29-2025 take 1 tablet by mouth once daily potassium chloride CR (Klor-Con M10) 10 MEQ ER tablet Indications: Bilateral edema of lower extremity Take 1 tablet (10 mEq) by mouth Daily 90 tablet 3 01/29/2025 Active Start: 11-01-2024 potassium chlo ride CR (Klor-Con [...] Refills(s) 0 Start Date: 04/26/23 Status: Ordered Repeat number: 1 Start: 04-26-2023 take 20 mg by mouth [...] Ordered solifenacin succinate 10 mg oral tablet (20 sources) Cholinergic Muscarinic Antagonist Start: 05-18-2022 take 1 tablet by mouth once daily Vesicare 10 mg Tab 10 mg = 1 tab(s), Oral, Daily, # 90 tab(s), Refills(s) 3, Pharmacy: [facility]/pharmacy #[id number], 163, cm, 05/18/22 10:12:00 EDT, Height/Length Dosing, 115, kg, 05/18/22 10:12:00 EDT, Weight Dosing Start Date: 05/18/22 Status: Ordered Quantity: 90.0 Unit: tab(s) Repeat number: 4 Start: 10-13-2021 take 1 tablet by justo once daily Vesicare 10 mg Tab 10 mg = 1 tab(s), Oral, Daily, # 30 tab(s), Refills(s) 5, Pharmacy: [facility]/pharmacy #[id number], 163, cm, 10/13/21 9:52:00 [...] 1 tablet day of treatment after treatment, [facility]/pharmacy #[id number], 163, cm, 05/18/22 10:12:00 EDT, Height/Length Dosing, 115, kg, 05/18/22 10:12:00 EDT, Weight Dosing Start Date: 05/18/22 Status: Ordered Start: 02-02-2022 Bactrim DS 800 mg-160 mg Tab 1 tab(s), Oral, Daily, 10 tab(s), Refill(s) 0, Prophylaxis for BCG, take day before and day of, [id number], 163, cm, 02/02/22 8:04:00 EDT, Height/Length Dosing, 115, kg, 02/02/22 8:04:00 EDT, Weight Dosing Start Date: 02/02/22 Status: Ordered Start: 01-26-2022 Bactrim DS 800 mg-160 mg Tab 1 tab(s), Oral, q12hr, 2 tab(s), Refill(s) 6, [id number], 163, cm, 01/26/22 8:21:00 EDT, Height/Length Dosing, 115, kg, 01/26/22 8:21:00 EDT, Weight Dosing Start Date: 01/26/22 Status: Ordered temazepam 30 mg oral capsule (20 sources) Benzodiazepine Start: 01-21-2025 temazepam (Res toril) 30 MG capsule Indications: Primary insomnia TAKE 1 CAPSULE AT BEDTIME 30 capsule 1 01/21/2025 Active Start: 10-03-2024 End: 01-09-2025 take 1 capsule by mouth at bedtime temazepam (Restoril) 30 MG capsule Indications: Primary insomnia Take 1 capsule (30 mg) by mouth at bedtime 90 capsule 10/11/2024 01/09/2025 Active Tirzepatide-Weight Management (Zepbound) 2.5 MG/0.5ML solution auto-injector (2 sources) Start: 12-18-2024 Tirzepatide-Weight Management (Zepbound) 2.5 MG/0.5ML solution auto-injector Indications: Class 3 severe obesity due to excess calories with serious comorbidity and body mass index (BMI) of 45.0 to 49.9 in adult (CMS/HCC) , Obstructive sleep apnea syndrome , Prediabetes Inject 2.5 mg under the skin 1 (one) time per week 2 mL 1 12/18/2024 Active triamcinolone acetonide 5 mg/ml topical cream (9 sources) Corticosteroid End: 11-26-2024 triamcinolone (Kenalog) 0.5 % cream 1 Application 11/26/2024 Discontinued vibegron 75 MG Oral Tablet [Gemtesa] (4 sources) Start: 01-05-2023 take 1 tablet by mouth once daily Gemtesa 75 mg oral tablet 75 mg = 1 tab(s), Oral, Daily, # 30 tab(s), Refills(s) 3, Pharmacy: [facility]/pharmacy #[id number], 163, cm, 01/04/23 8:04:00 EST, Height/Length Dosing, 115, kg, 01/04/23 8:04:00 EST, Weight Dosing Start Date: 01/05/23 Status: Ordered Quantity: 30.0 Unit: tab(s) Repeat number: 4 Start: 01-05-2023 take 1 tablet by justo once daily Gemtesa 75 mg oral tablet 75 mg = 1 tab(s), Oral, Daily, # 30 tab(s), Refills(s) 3, Pharmacy: [facility]/pharmacy #[id number], 163, cm, 01/04/23 8:04:00 EST, Height/Length Dosing, 115, kg, 01/04/23 8:04:00 EST, Weight Dosing Start Date: 01/05/23 Status: Ordered Vitamin D (20 sources) Start: 07-07-2021 Vitamin D Inte rnational_Unit, Oral, qWeek, Refills(s) 0 Start Date: 07/07/21 Status: Ordered Repeat number: 1 Start: 07-07-2021 Vitamin D Inte rnational_Unit, Oral, qWeek, Refills(s) 0 Start Date: 07/07/21 [...] procedure., # 1 tab(s), Refills(s) 0, Pharmacy: [facility]/pharmacy #[id number], 163, cm, 06/22/22 8:33:00 [...] Onset: 01-26-2022 Resolved: 11-15-2023 Chronic Cancer of bladder (6 sources) Personal history of malignant neoplasm of bladder; 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: [History of malignant neoplasm of bladder] Onset: 04-27-2022 Episodic Cardiac dysrhythmias (4 sources) Ventricular premature depolarization; 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: [Atrial premature depolarization] Onset: 08-12-2024 Chronic Disorders of lipid metabolism (20 sources) Dyslipidemia; 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: [Mixed hyperlipidemia] Onset: 01-02-2024 01-24-2024 Chronic Esophageal disorders (20 sources) Gastroesophageal reflux disease without esophagitis; 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: [Gastro-esophageal reflux disease without esophagitis] Onset: 11-15-2023 11-15-2023 Chronic Essential hypertension (20 sources) Essential (primary) hypertension; 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: [Essential hypertension] Onset: 04-12-2017 08-22-2023 Chronic Genitourinary symptoms and ill-defined conditions (20 sources) Incontinence; 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: [Mixed incontinence] Onset: 01-09-2023 07-14-2021 Chronic Hepatitis (14 sources) Steatohepatitis; 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: [Nonalcoholic steatohepatitis (JOHNSON)] Onset: 12-04-2024 12-04-2024 Chronic Miscellaneous mental health disorders (2 sources) Primary insomnia; 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: [Primary insomnia] 10-03-2024 Chronic Osteoarthritis (20 sources) Primary generalized (osteo)arthritis; 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: [Unspecified osteoarthritis, unspecified site] Onset: 04-12-2017 Resolved: 08-22-2023 Chronic Other aftercare (1 source) Other manager terminal (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; 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: [OTH ENVIRONMENTAL HEALTH AND SAFETY LEADER CURRENT DRUG THERAPY] Onset: 12-25-2022 Episodic Other aftercare (1 source) [facility] (current) use of aspirin; 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: [CORRECTION CURRENT USE OF ASPIRIN] Onset: 12-13-2022 Episodic Other aftercare (5 sources) Long-term current use of drug therapy; 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: [Other long-term (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] Onset: 05-29-2025 05-29-2025 Episodic Other and ill-defined heart disease (2 [...] Chronic Other nutritional; endocrine; and metabolic disorders (20 sources) Body mass index 40+ - severely [...] Chronic Other nutritional; endocrine; and metabolic disorders (20 sources) Severe obesity; 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: [Class 3 severe obesity due to excess calories with serious comorbidity and body mass index (BMI) of 45.0 to 49.9 in adult ([facility])] Onset: 04-28-2017 11-26-2024 Chronic Residual codes; unclassified (20 sources) Obstructive sleep apnea syndrome; 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: [Obstructive sleep apnea (adult) (pediatric)] Onset: 01-02-2024 01-24-2024 Chronic Residual codes; unclassified (1 source) Acquired absence of other specified parts of digestive tract; 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: [ACQ ABSENCE OTH PART DIGESTV TRACT] Onset: 01-09-2023 Episodic Residual codes; unclassified (1 source) Acquired absence of both cervix and uterus; 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: [ACQUIRED ABSENCE BOTH CERVIX AND UTERUS] Onset: 01-09-2023 Episodic Unclassified (1 source) CONTACT W/AND (SUSP) EXPOS COVID-19; 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: [CONTACT W/AND (SUSP) EXPOS COVID-19] Onset: 04-04-2022 Urinary tract infections (20 sources) Urinary tract infectious disease; 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: [Urinary tract infection, site not specified] Onset: 07-22-2022 09-22-2021 Episodic Past or Other Problems Problem Classification Problem Date Documented Da te Episodic/Chronic Acquired foot deformities (20 sources) Plantarflexion deformity of right foot; 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: [Other acquired deformities of right foot] Onset: 08-22-2023 08-22-2023 Episodic Bacterial infection; unspecified site (20 sources) Infection due to enterococcus; 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: [Streptococcal infection, unspecified site] Onset: 05-05-2023 Resolved: 08-22-2023 09-29-2021 Episodic Cancer of breast (20 sources) 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; 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: [Malignant neoplasm of central portion of female breast] Onset: 06-13-2017 Resolved: 08-22-2023 08-22-2023 Chronic Cancer of breast (20 sources) Personal history of malignant neoplasm of breast; 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: [History of malignant neoplasm of breast] Onset: 11-07-2022 03-27-2020 Episodic Cardiac dysrhythmias (20 sources) Palpitations; 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: [Palpitations] Onset: 11-17-2021 Resolved: 11-15-2023 11-15-2023 Episodic Diabetes mellitus without complication (20 sources) Prediabetes; 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: [Prediabetes] Onset: 05-21-2024 05-21-2024 Episodic Diseases of mouth; excluding dental (20 sources) Oral lesion; 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: [Unspecified lesions of [...] atrophic vaginitis] Onset: 06-22-2022 Resolved: 08-22-2023 Chronic Mood disorders (3 sources) Mood disorders Onset: 05-29-2025 05-29-2025 Nausea and vomiting (1 source) Nausea with vomiting, unspecified; 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: [NAUSEA WITH VOMITING UNSPECIFIED] Onset: 04-04-2022 Episodic Neoplasms of unspecified nature or uncertain behavior (5 sources) Neoplasm of unspecified behavior of bladder; 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: [NEOPLASM UNS BEHAVIOR OF BLADDER] Onset: 05-09-2022 Episodic Other acquired deformities (20 sources) Dean legged; 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: [Varus deformity, not elsewhere classified, left knee] Onset: 08-22-2023 Resolved: 11-15-2023 11-15-2023 Episodic Other and ill-defined heart disease (20 sources) Aneurysm of coronary vessels; 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: [Coronary artery aneurysm] Onset: 01-02-2024 Resolved: 05-21-2024 05-21-2024 Chronic Other and unspecified benign neoplasm (2 sources) Benign neoplasm of colon, unspecified; 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: [Benign neoplasm of colon, unspecified] Onset: 03-19-2024 Episodic Other connective tissue disease (20 sources) History of total knee arthroplasty; 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: [Presence of left artificial knee joint] Onset: 08-22-2023 Resolved: 08-22-2023 08-22-2023 Chronic Other connective tissue disease (3 sources) Pain in right hand; 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: [PAIN IN RIGHT HAND] Onset: 11-05-2022 Episodic Other connective tissue disease (20 sources) Pain of left calf; 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: [Pain in left lower leg] Onset: 08-22-2023 Resolved: 08-22-2023 08-22-2023 Episodic Other gastrointestinal disorders (3 sources) Diarrhea, unspecified; 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: [DIARRHEA UNSPECIFIED] Onset: 03-28-2022 Episodic Other lower respiratory disease (4 sources) Respiratory disorder, unspecified; 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: [RESPIRATORY DISORDER UNSPECIFIED] Onset: 05-26-2022 Episodic Other lower respiratory disease (20 sources) Dyspnea; 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: [Dyspnea, unspecified] Onset: 06-05-2020 Resolved: 11-15-2023 11-15-2023 Episodic Other lower respiratory disease (2 sources) Shortness of breath; 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: [Shortness of breath] Onset: 05-05-2023 Episodic Other lower respiratory disease (2 sources) Other forms of dyspnea; 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: [Other forms of dyspnea] Onset: 05-05-2023 Episodic Other non-traumatic joint disorders (20 sources) Pain in right knee; 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: [Pain in joint, lower leg] Onset: 08-22-2023 Resolved: 08-22-2023 08-22-2023 Episodic Other nutritional; endocrine; and metabolic disorders (20 sources) Obesity; 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: [Obesity, unspecified] Onset: 06-05-2020 Resolved: 08-22-2023 08-22-2023 Chronic Other screening for suspected conditions (not mental disorders or infectious disease) (20 sources) Encounter for screening mammogram for malignant neoplasm of breast; 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: [Cardiovascular stress test abnormal] Onset: 06-13-2017 Resolved: 11-15-2023 Episodic Phlebitis; thrombophlebitis and thromboembolism (1 source) Personal history of other venous thrombosis and embolism; 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: [PERS HX OTH VENOUS THROMBOSIS AND EMBO] Onset: 11-07-2022 Episodic Residual codes; unclassified (1 source) Family history of malignant neoplasm of breast; 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: [FAMILY HX MALIG NEOPLASM OF BREAST] Onset: 04-13-2022 Episodic Residual codes; unclassified (20 sources) Bilateral lower limb edema; 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: [Localized edema] Onset: 11-15-2023 11-15-2023 Episodic Residual codes; unclassified (20 sources) Prevention status; 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: [Need for malaria prophylaxis] Onset: 05-21-2024 Resolved: 11-26-2024 05-21-2024 Episodic Screening and history of mental health and substance abuse codes (20 sources) Ex-smoker; 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: [Personal history of nicotine dependence] Onset: 01-09-2023 Resolved: 08-22-2023 09-08-2021 Episodic Spondylosis; intervertebral disc disorders; other back problems (20 sources) Chronic neck pain; 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: [Cervicalgia] Onset: 11-15-2023 Resolved: 05-21-2024 05-21-2024 Episodic Superficial injury; contusion (20 sources) Contusion of right knee; 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: [Contusion of right knee, initial encounter] Onset: 08-22-2023 Resolved: 05-21-2024 05-21-2024 Episodic Results Test Name Value Interpretation Reference Range Facility ALL CBC WITH AUTO DIFFon BASOPHILS ABSOLUTE AUTO 0 [facility] Basophils/100 WBC (Bld) 0.6 % 0.2 - 2.0 % [facility] Eosinophils/100 WBC (Bld) 2.4 % 0.9 - 7.0 % [facility] Erythrocyte distribution width (RBC) [Ratio] 13.6 % 11.0 - 15.0 % [facility] Hematocrit (Bld) [Volume fraction] 37.9 % 36.0 - 48.0 % [facility] Hemoglobin (Bld) [Mass/Vol] 12.1 g/dL 12.0 - 16.0 g/dL [facility] IMMATURE GRANULOCYTES ABS AUTO 0.01 [facility] Immature granulocytes/100 WBC (Bld) 0.2 % 0.0 - 0.5 % [facility] LYMPHOCYTES ABSOLUTE AUTO 1.3 [facility] Lymphocytes/100 WBC (Bld) 26.6 % 20.5 - 60.0 % [facility] MCH (RBC) [Entitic mass] 28.3 pg 26.7 - 34.0 pg [facility] MCHC (RBC) [Mass/Vol] 31.9 g/dL 29.9 - 35.2 g/dL [facility] MCV (RBC) [Entitic vol] 88.6 fL 81.0 - 99.0 fL [facility] MONOCYTES ABSOLUTE AUTO 0.4 [facility] Monocytes/100 WBC (Bld) 8.5 % 1.7 - 12.0 % [facility] NEUTROPHILS ABSOLUTE AUTO 3.1 [facility] Neutrophils/100 WBC (Bld) 61.7 % 43.0 - 75.0 % [facility] Platelet mean volume (Bld) [Entitic vol] 9.7 fL 9.5 - 13.5 fL [facility] TBH EO # 0.1 [facility] TB PLT 195 [facility] RBC 4.28 [facility] TB WBC 5 [facility] CHEMISTRYOrdered By: SYSTEM SYSTEM on 01-27-2025 Creatinine [Mass/Vol] 0.9 mg/dL Normal 0.5 - 1.3 mg/dL Remisol Chem eGFR 70 mL/min/1.73 m2 Normal >=59mL/min /1. [address] Urogramon 01-27-2025 CT Urogram Exam Date/Time: 01/27/2025 12:28 EDT Reason for Exam: Z85.51;Other (please specify) Report IMPRESSION: SMALL RENAL CYSTS. OTHERWISE, ESSENTIALLY NEGATIVE CT UROGRAM. EXAM: CT Urogram DATE: 01/27/2025 11:22 AM CLINICAL HISTORY: Z85.51. COMPARISON: Outside renal and urinary bladder ultrasound 07/09/2021. TECHNIQUE: Spiral images were obtained of the abdomen and pelvis before and after the uneventful intravenous administration of approximately 100 mL of Isovue-[address] urogram protocol. All CT scans at this facility use dose modulation, iterative reconstruction, and/or weight based dosing when appropriate to reduce radiation dose to as low as reasonably achievable. FINDINGS: Kidneys: A few small nonenhancing fluid density cysts. The largest within the posterior aspect of the left upper pole measures approximately 2.5 cm. No hydronephrosis, significant urinary tract calculi, surrounding inflammatory changes, parenchymal atrophy, scarring, or suspicious mass. Upper urinary tracts: No hydronephrosis, hydroureter, or suspicious filling defects identified. Urinary bladder: No abnormal wall thickening or suspicious masses. Adrenals: Unremarkable. Liver: No enlargement, significant fatty infiltration, suspicious mass or lesion. Biliary: The gallbladder has been removed. Mild predominantly extrahepatic biliary dilatation, most consistent with chronic reservoir effect. Pancreas: No suspicious mass, organized fluid collection, surrounding inflammation, or abnormal pancreatic ductal dilatation. Spleen: Unremarkable. GI tract: No abnormal dilation, wall thickening, or suspicious mass. Small hiatal hernia. Moderate colonic diverticulosis. Normal appendix. Lymph nodes: No pathologically enlarged lymph nodes. Vasculature: No aneurysm or dissection. Mild calcified atherosclerotic plaquing. Mesentery/peritoneum/r etroperitoneum: No ascites, organized fluid collection, inflammatory changes, or suspicious mass. Pelvis: Previous hysterectomy.. Musculoskeletal: No acute osseous findings identified. Mild to moderate degenerative changes. Lower thorax: Noncontributory. Report Ordering Provider: Dina Cobb FINAL REPORT Dictated: 01/27/2025 3:46 pm Albert Costello MD Signed (Electronic Signature): 01/27/2025 3:46 pm Signed by: Albert Costello MD Transcribed by: REFUGIO Technologist: NIK Reyes [facility] Creatinineon 01-27-2025 Creatinine [Mass/Vol] 0.9 mg/dL Normal 0.5-1.3 [facility] Comment on above: Performed By: #### 2 [id number] #### [facility] [address] [place] [address] eGFRon 01-27-2025 eGFR 70 mL/min/1.73 m2 Normal >=59 [facility] Comment on above: Performed By: #### 1 [id number] #### [facility] [address] [place] [address] Urine Cytology ([facility])on 0 01-17-2025 Microscopic exam Cytology (U) [Interp] Diagnosis Info Invalid Interpretation Code [facility] Comment on above: Result Comment: A:Ur ine,Urine:Voided Interpretation - Atypical urothelial cells with degenerative changes. CPT 39200 MicroScopic Description - Adequacy - Gross Description Site ID:A color Colorless fixative Alcohol Specimen designated Urine received in alcohol preservative and labeled with the patient???s name, consists of 80ml clear colorless fluid. Electronically signed by : on: 01/17/2025 09:58:31 Performed By: #### 1 [id number] #### [facility] [address] [place] [address] Inpatient Patient Summaryon 01-13-2025 Inpatient Patient Summary Inpatient Patient Summary [address] [address] Clinical Summary Person Information Name: DANIELLA BEJARANO Age: 64 Years : 1960 Sex: Female PCP: BAYRON SINGH MD Marital Status: Race: White Ethnicity: Non- or Language: Greek Visit Id: Visit Reason: BLADDER CANCER Speciality: Acuity: Enc Type: Outpatient Med Service: Surgery Arrival: 01/13/2025 10:13:31 Discharge: Dispo Type: Address: [address] [place] [address] [phone] Provider Notes: Diagnosis: History of bladder cancer Problems Active Vaginal atrophy History of UTI Urothelial carcinoma of bladder BMI 40.0-44.9, adult Bladder cancer Enterococcus faecalis infection Urinary tract infection Former smoker OAB (overactive bladder) Mixed incontinence Abnormal urinary stream Smoking Status: Functional Status: Sensory Deficits: History of Falls: Mobility Assistance Prior to Admission: ADLs: Current Level of Assistance for Self-Care/Mobility: Cognitive Status: Allergies Percocet (Headache) Laboratory or Other Results This Visit (last charted value for your 01/13/2025 visit) No Laboratory or Other Results This Visit Measurements: Height: 162 cm Weight: 124 kg Blood Pressure: Not Valued / Not Valued BMI: 47.25 kg/m2 Procedures No Procedures Documented Immunizations No Immunizations Documented This Visit Final Med List: aspirin (aspirin 81 mg Oral EC Tab) By Mouth every day. ergocalciferol (Vitamin D) By Mouth every week. estradiol topical (Estrace 0.1 mg/g Cream) Apply a pea size amount around the urethra and vagina, 3x a wk for 4 wks, then 2x a week afterwards.. Refills: 2. furosemide (Lasix 20 mg Tab) By Mouth every day. multivitamin with minerals 1 tab By Mouth every day. nabumetone (nabumetone 750 mg Tab) 750 Milligram By Mouth every day. olmesartan (Benicar 40 mg Tab) By Mouth every day. pantoprazole (Protonix 40 mg Tab-DR) By Mouth 2 times a day. potassium chloride 20 Milligram By Mouth every day. solifenacin (Vesicare 10 mg Tab) 1 Tablets By Mouth every day. Refills: 3. vibegron (Gemtesa 75 mg oral tablet) 1 Tablets By Mouth every day. Refills: 3. Care Team Members: Attending Physician: Dina Cobb MD Consulting Physician: Referring Physician: Dina Cobb MD Follow up: With: Address: When: Dina Cobb Comments: Office to schedule follow up: [place] now at [facility] Surveillance cystoscopy and cytology in 6 months Patient Education Information: EU - Cystoscopy Discharge Instructions (CUSTOM) [facility] Main OR Intraoperative Recor don 01-13-2025 Main OR Intraoperative Record Main OR Intraoperative Record IntraOp Document Type FTURO Summary Primary Physician: Dina Cobb MD Finalized Date/Time: 01/13/25 11:19:27 Pt. Name: DANIELLA BEJARANO Chris /Sex: 1960 Female Med Rec #: [id number] Physician: Dina Cobb MD Financial #: [id number] Pt. 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 Surgeon Description CYSTO Primary Procedure Yes Primary Surgeon Dina Cobb MD Start 01/13/25 11:15:00 Stop 01/13/25 11:18:00 Anesthesia Type Local Surgical Service Urology Wound Class 2 - Clean-Contaminated Last Modified By: Saul Mercado Ii 01/13/25 11:18:36 General Case Data FTURO Pre-Care Text: Classifies surgical wound, implements aseptic technique, initiates traffic control Entry 1 Case Information OR URO 1 FT Case Level None Wound Class 2 - Clean-Contaminated Specialty Urology Preop Diagnosis BLADDER CANCER Postop Same As Preop Yes Postop Diagnosis BLADDER CANCER Outcomes Met? Yes Last Modified By: Saul Mercado Ii 01/13/25 11:08:23 Post-Care Text: The patient is free from signs and symptoms of infection EU IntraOp - FTURO Pre-Care Text: Implements protective measures prior to operative or invasive procedure, confirms identity before the operative or invasive procedure, verifies operative procedure, surgical site, and laterality Entry 1 EU Perioperative Protocols Procedure(s) CYSTOSCOPY LOCAL(.) Patient Identity Birthday, ID Band Verified (select at Check, Patient least 2): Participation Consents / H and P H&P, Surgery/Procedure Operative Site N/A Verified Consent Marking Verified Surgical Site Yes Laterality Verified n/a Verified Procedure Verified Yes Correct Patient Yes Position Verified Availability Equipment, Medication Time Out Reza JAMES, Dina Oconnell, Verified (If Participants Chirag ESTEVES, Wendy Applicable) Rogelio Perez Alfons Ii F Time Out Complete 01/13/25 11:10:00 Allergies Reviewed? Yes Allergies Reviewed Self/Patient With Body Position Frog Legged Prep Area perineum Prep Agents Betasept Skin. Condition Intact, [place], Warm, & Description unchanged Dry Specimens Comment urine Vitals - EU Blood Pressure 145/85 Pulse 72 bpm Respirations 18 br/min SPO2 97 % I&O - EU Outcomes Met? Yes Last Modified By: Saul Mercado Ii 01/13/25 11:18:54 Post-Care Text: The patient is free from signs and symptoms of injury caused by extraneous objects Sign Out FTURO Entry 1 Before Patient Leaves OR Nurse verbally Yes Nurse verbally Yes confirms with the confirms with the team the name of team that the procedure(s) instrument, sponge, recorded and needle counts are correct (or N/A) Nurse verbally n/a Nurse verbally Yes confirms with the confirms with the team how the team whether there specimen is labeled are any equipment (including patient problems to be name), if applicable addressed Sign Out Complete 01/13/25 11:18:00 Last Modified By: Saul Mercado Ii 01/13/25 11:18:25 Case Comments Finalized By: Saul Mercado Ii Document Signatures Signed By: Saul Mercado Ii 01/13/25 11:18 Saul Mercado Ii F 01/13/25 11:18 Saul Mercado Ii F 01/13/25 11:19 [facility] Main OR Preoperative Recordo n 01-13-2025 Main OR Preoperative Record Main OR Preoperative Record Holding Area Document Type FTURO Summary Primary Physician: Dina Cobb MD Finalized Date/Time: 01/13/25 10:57:33 Pt. Name: SARAI BEJARANOFarhat Araya/Sex: 1960 Female Med Rec #: [id number] Physician: Dina Cobb MD Financial #: [id number] Pt. Type: O Room/Bed: / Admit/Disch: 01/13/25 10:21:00 - Institution: Case Times Holding FTURO Pre-Care Text: Verifies consent for planned procedure, identifies individual values and wishes concerning care, includes family members in perioperative teaching Secures patient's records' belongings, and valuables, maintains patient's dignity and privacy, and maintains patient confidentiality Entry 1 In Holding 01/13/25 10:53:00 Outcomes Met? Yes Last Modified By: Jennifer Allen 01/13/25 10:53:52 Post-Care Text: The patient participates in decisions affecting his or her perioperative plan of care The patient's right to privacy is maintained Surgery Checklist FTURO Entry 1 Patient Birthday, ID Band Procedure History and Physical, Identification: Check, Patient Verification: Surgical Consent, With Participation Patient NPO after Midnight: n/a Date/Time: 01/13/25 10:53:00 Personal Items: Glasses Personal Items CLOHTES,SHOES AND PURSE Comment: Limitations: N/A Complaints of Pain: No Pain Comment: NONE Skin Integrity Unable to Visualize Vitals - EU Blood Pressure 145/85 Pulse 72 bpm Respirations 18 br/min SPO2 97 % Additional None Specimens Comment N/A Specimens Collected Residual Amount - 0 RN Reviewed Yes Post Void Last Modified By: Jennifer Allen 01/13/25 10:55:51 Finalized By: Jennifer Allen Document Signatures Signed By: Jennifer Allen 01/13/25 10:55 Jennifer Allen 01/13/25 10:56 AlejandroAdamaJennifer E 01/13/25 10:57 OtiliasabinetraciAdamaJennifer E 01/13/25 10:57 Normal [facility] Operative Reporton Operative Report Operative Report Patient: DANIELLA BEJARANO Age: 64 years Sex: Female : 1960 Associated Diagnoses: None Author: Dina Cobb MD Procedure Operative Information Details: Date/ Time: 01/13/2025 11:25:00. Pre-Op Dx: Hx of Bladder CA - Z85.51. Post-Op Dx: Same. Anesthesia Type: Local. Procedure: Local Cystoscopy. Complications: None. Risks/Benefits/Informe d Consent: Surgical risks, benefits, details of the procedure have been explained to the patient, Full informed consent has been obtained. Intraoperative Information Prepped: Patient is brought back to the endoscopy suite, Patient is placed in supine position (Frog-leg), Patient prepped in the usual fashion with Betadine solution (Hibiclens), 2% Xylocaine Jelly is placed per Urethra, After waiting several minutes the Cystoscope is introduced. The Urethra is: Normal. The Bladder is: Trabeculated Mild (1), No bladder tumors, lesions, stones or foreign bodies. Well-healed resected sites x 3 on the right lateral and posterior wall.. The ureteral orifices: Show efflux of clear urine. Specimens Removed: Bladder wash sent for Cytology test. Devices Implanted: None. Removal: Cystoscope is removed, The patient tolerated it well. Postoperative Information Discharge: Follow up arranged, Review [facility] Dr. 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 Prior resection sites at posterior, right lateral and left lateral wall noted. 09/2024- cysto with Dr. Zelaya Plan for continued maintenance intravesical chemo CTU due 12/2024, Cysto q3m until 12/2024, then q6m x 3 yrs -No evidence of recurrence today. -Patient to follow-up with Dr. Zelaya regarding continued maintenance intravesical gem doce x 3 years (his notes state to continue in one part, but final plan did not indicate) -Follow-up urine cytology from today -CT urogram to be done at [facility], call with results -Surveillance cystoscopy and cytology in 6 months.. [facility] Comment on above: Result Comment: Elec tronically Signed By: Reza JAMES, Dina Oconnell\.br\Date and Time Signed: 01/13/25 11:28 EDT Outpatient Surgery Discharge Instructionon 01-13-2025 Outpatient Surgery Discharge Instruction Outpatient Surgery Discharge Instruction [place] [id number] Patient Discharge Instructions PERSON INFORMATION Name: DANIELLA BEJARANO Date of : 1960 Current Date: 01/13/2025 11:25:17 PHYSICIANS Admitting Physician: Dina Cobb MD Comment: Discharge Diagnosis: History of bladder cancer DANIELLA BEJARANO has been given the following list of follow-up instructions, prescriptions, and patient education materials: IF UNABLE TO CONTACT YOUR PHYSICIAN AND YOU FEEL IT IS AN EMERGENCY, GO TO THE NEAREST EMERGENCY ROOM OR CALL 911 Follow up: With: Address: When: Dina Cobb Comments: Office to schedule follow up: CTU now at [facility]. Surveillance cystoscopy and cytology in 6 months Comment: PATIENT EDUCATION INFORMATION Instructions: Cystoscopy ??? Voiding after the procedure: there may be some pain, burning, urgency, frequency and blood tinged urine following the procedure. These symptoms usually resolve within 2-5 days. Drink the amount of fluid it takes to keep the urine pink to yellow or clear in color. Drinking enough water and fluids will help to ease any discomfort after your procedure. ??? If you are having problems that seem out of the ordinary, please call. ??? If unable to contact your physician and you feel it is an emergency, go to the nearest emergency room or call 911 ??? Diet ??? you may resume your normal diet. ??? Activity ??? you may resume your normal activities ??? Call if you have a fever over 100 degrees. DARCI Zuniga DARLYN A, have received the attached patient education materials/instructions and have verbalized understanding: May we do a follow up call? Yes No I was present when discharge instructions were given Patient Signature Date Clinican/Nurse Signature ___ Date You may receive a survey from [employer] asking you to rate your care experience. Your feedback is important and will help us understand what we do well and how we can improve the quality of care we provide to you, your loved ones and our community. It???s an honor to serve you. Thank you for choosing [facility] Urine Cytology ([facility])on 01-13-2025 UC Method of Extraction Voided [facility] Comment on above: Performed By: #### 1 [id number] #### [facility] [address] [place] [address] Number of Jars 1 Invalid Interpretation Code [facility] Comment on above: Performed By: #### 1 [id number] #### [facility] [address] [place] [address] Specimen Urine [facility] Comment on above: Performed By: #### 1 [id number] #### [facility] [address] [place] [address] Type of Service Technical Only Normal [facility] Comment on above: Performed By: #### 1 [id number] #### [facility] [address] [place] [address] CT ABDOMEN WO/W CONon [address] [place] [address] CT Scan Report Signed Patient: DANIELLA BEJARANO MR#: [id number] : 1960 Acct:[id number] Age/Sex: 64 / F ADM Date: 12/06/24 Loc: CT Attending Dr: Bayron Singh M.D. Ordering Physician: Bayron Singh M.D. Date of Service: 12/06/24 Procedure(s): CT abdomen wo/w con Accession Number(s): [id number] cc: Bayron Singh M.D. [place] [address] Patient Name: DANIELLA BEJARANO MRN: [id number] date: 1960 Sex: F Assigned Patient Location: CT Current Patient Location: Accession/Order Number: [id number] Exam Date: 12/06/2024 13:05 Report Date: 12/09/2024 15:31 At the request of: BAYRON SINGH Procedure: CT abdomen wo/w con EXAMINATION: CT abdomen wo/w con HISTORY: Liver Lesion, Metabolic Dysfunction COMPARISON: 12/04/2024 ultrasound TECHNIQUE: Axial, Coronal, and Sagittal images were created without and with non-ionic intravenous contrast material. Dose reduction techniques were achieved by using automated exposure control and/or adjustment of mA and/or kV according to patient size and/or use of iterative reconstruction technique. FINDINGS: LUNG BASES: No visible pulmonary or pleural disease. LIVER: Normal in size, contour and echotexture. No focal hepatic lesion is observed BILIARY: Surgical clips from cholecystectomy PANCREAS: No lesion, fluid collection, ductal dilatation, or atrophy. SPLEEN: No enlargement or focal lesion. ADRENALS: No mass or enlargement. KIDNEYS: Bilateral renal cortical hypodensities too small to characterize on the right. Likely a cyst on the left measuring 15 Hounsfield units BOWEL/MESENTERY: Colonic diverticulosis without evidence of acute diverticulitis. Nonobstructive bowel gas pattern AORTA/VASCULAR: No aneurysm or dissection. ABDOMINAL WALL: No mass or hernia. BONES: No bony lesion or fracture. OTHER: Negative. CT/CT abdomen wo/w con IMPRESSION: 1. No focal hepatic lesion observed. 2. Bilateral renal cortical hypodensities too small to characterize on the right. Electronically authenticated by: SPARKLE WHATLEY Date: 12/09/2024 15:31 Dictated By: Sparkle Whatley M.D. Signed By: 12/09/24 1533 DD/ 1531 TD/TT: [employer] Ten[employer] Farmer: [facility] Radiology, Radiologist, MD - 12/09/2024 [place] [address] CT Scan Report Signed Patient: DANIELLA BEJARANO MR#: [id number] : 1960 Acct:[id number] Age/Sex: 64 / F ADM Date: 12/06/24 Loc: CT Attending Dr: Bayron Singh M.D. Ordering Physician: Bayron Singh M.D. Date of Service: 12/06/24 Procedure(s): CT abdomen wo/w con Accession Number(s): [id number] cc: Bayron Singh M.D. The [place] [address] Patient Name: DANIELLA BEJARANO MRN: [facility]:[id number] date: 1960 Sex: F Assigned Patient Location: CT Current Patient Location: Accession/Order Number: [id number] Exam Date: 12/06/2024 13:05 Report Date: 12/09/2024 15:31 At the request of: BAYRON SINGH Procedure: CT abdomen wo/w con EXAMINATION: CT abdomen wo/w con HISTORY: Liver Lesion, Metabolic Dysfunction COMPARISON: 12/04/2024 ultrasound TECHNIQUE: Axial, Coronal, and Sagittal images were created without and with non-ionic intravenous contrast material. Dose reduction techniques were achieved by using automated exposure control and/or adjustment of mA and/or kV according to patient size and/or use of iterative reconstruction technique. FINDINGS: LUNG BASES: No visible pulmonary or pleural disease. LIVER: Normal in size, contour and echotexture. No focal hepatic lesion is observed BILIARY: Surgical clips from cholecystectomy PANCREAS: No lesion, fluid collection, ductal dilatation, or atrophy. SPLEEN: No enlargement or focal lesion. ADRENALS: No mass or enlargement. KIDNEYS: Bilateral renal cortical hypodensities too small to characterize on the right. Likely a cyst on the left measuring 15 Hounsfield units BOWEL/MESENTERY: Colonic diverticulosis without evidence of acute diverticulitis. Nonobstructive bowel gas pattern AORTA/VASCULAR: No aneurysm or dissection. ABDOMINAL WALL: No mass or hernia. BONES: No bony lesion or fracture. OTHER: Negative. CT/CT abdomen wo/w con IMPRESSION: 1. No focal hepatic lesion observed. 2. Bilateral renal cortical hypodensities too small to characterize on the right. Electronically authenticated by: SPARKLE WHATLEY Date: 12/09/2024 15:31 Dictated By: Sparkle Whatley M.D. Signed By: 12/09/24 1533 DD/ 1531 TD/TT: [employer] Tenant Farmer: [facility] [employer] Radiology Study observation (narrative) [facility] CT ABDOMEN WO/W CONOrdered B y: Radiologist Radiology on 12-09-2024 [facility] [employer] Work Phone: US RIGHT UPPER QUADRANTon The [address] [address] Ultrasound Report Signed Patient: DANIELLA BEJARANO MR#: [id number] : 1960 Acct:[id number] Age/Sex: 64 / F ADM Date: 12/04/24 Loc: US Attending Dr: Bayron Singh M.D. Ordering Physician: Bayron Singh M.D. Date of Service: 12/04/24 Procedure(s): US right upper quadrant Accession Number(s): [id number] cc: Bayron Singh M.D. [place] [address] Patient Name: DANIELLA BEJARANO MRN: [facility]:[id number] date: 1960 Sex: F Assigned Patient Location: US Current Patient Location: US Accession/Order Number: [id number] Exam Date: 12/04/2024 10:36 Report Date: 12/04/2024 13:30 At the request of: BAYRON SINGH Procedure: US right upper quadrant EXAMINATION: US right upper quadrant HISTORY: Abnormal Liver Function R94.5 ; history of bladder cancer COMPARISON: CT abdomen pelvis 07/01/2022 TECHNIQUE: Transabdominal evaluation of the right upper quadrant. FINDINGS: LIVER: Increased echogenicity suggestive of fatty infiltration. Nonspecific 8 x 6 mm rounded hypoechoic area within left lobe. Color Doppler demonstrates patent hepatic veins. PORTAL VEIN: Duplex Doppler demonstrates normal hepatopetal flow pattern with flow velocity averaging 36 cm/s. GALLBLADDER: Cholecystectomy. BILIARY: No abnormal dilation or stones. Common bile duct diameter is within normal limits. PANCREAS: Limited evaluation. No visible mass, abnormal atrophy, or duct dilation. KIDNEY: No hydronephrosis. No visible mass or stones. Size: 12.2 x 5.0 x 4.5 cm US/US right upper quadrant IMPRESSION: 1. Mild fatty infiltration of liver. 2. Small 8 mm hypoechoic area within left lobe; nonspecific but more suggestive of a cyst then neoplasm or other concerning etiology. Consider follow-up CT abdomen with multiphase liver protocol if strong clinical concern. Electronically authenticated by: LONG ALLEN Date: 12/04/2024 13:30 Dictated By: Long Allen M.D. Signed By: 12/04/24 1825 DD/ 6772 TD/TT: [employer] Tenant Farmer: [facility] Radiology, Radiologist, MD - 12/04/2024 [place] [address] Ultrasound Report Signed Patient: DANIELLA BEJARANO MR#: [id number] : 1960 Acct:[id number] Age/Sex: 64 / F ADM Date: 12/04/24 Loc: US Attending Dr: Bayron Singh M.D. Ordering Physician: Bayron Singh M.D. Date of Service: 12/04/24 Procedure(s): US right upper quadrant Accession Number(s): [id number] cc: Bayron Singh M.D. The [place] [address] Patient Name: DANIELLA BEJARANO MRN: [id number] date: 1960 Sex: F Assigned Patient Location: US Current Patient Location: US Accession/Order Number: [id number] Exam Date: 12/04/2024 10:36 Report Date: 12/04/2024 13:30 At the request of: BAYRON SINGH Procedure: US right upper quadrant EXAMINATION: US right upper quadrant HISTORY: Abnormal Liver Function R94.5 ; history of bladder cancer COMPARISON: CT abdomen pelvis 07/01/2022 TECHNIQUE: Transabdominal evaluation of the right upper quadrant. FINDINGS: LIVER: Increased echogenicity suggestive of fatty infiltration. Nonspecific 8 x 6 mm rounded hypoechoic area within left lobe. Color Doppler demonstrates patent hepatic veins. PORTAL VEIN: Duplex Doppler demonstrates normal hepatopetal flow pattern with flow velocity averaging 36 cm/s. GALLBLADDER: Cholecystectomy. BILIARY: No abnormal dilation or stones. Common bile duct diameter is within normal limits. PANCREAS: Limited evaluation. No visible mass, abnormal atrophy, or duct dilation. KIDNEY: No hydronephrosis. No visible mass or stones. Size: 12.2 x 5.0 x 4.5 cm US/US right upper quadrant IMPRESSION: 1. Mild fatty infiltration of liver. 2. Small 8 mm hypoechoic area within left lobe; nonspecific but more suggestive of a cyst then neoplasm or other concerning etiology. Consider follow-up CT abdomen with multiphase liver protocol if strong clinical concern. Electronically authenticated by: LONG ALLEN Date: 12/04/2024 13:30 Dictated By: Long Allen M.D. Signed By: 12/04/24 133 DD/ 29 TD/TT: [employer] Farmer: [facility] Radiology Study observation (narrative) [facility] US RIGHT UPPER QUADRANTOrder ed By: Radiologist Radiology on 12-04-2024 [facility] Work Phone: ALL CBC WITH AUTO DIFFon BASOPHILS ABSOLUTE AUTO 0.1 [facility] Basophils/100 WBC (Bld) 0.8 % 0.2 - 2.0 % [facility] Eosinophils/100 WBC (Bld) 2.3 % 0.9 - 7.0 % [facility] Erythrocyte distribution width (RBC) [Ratio] 13.9 % 11.0 - 15.0 % [facility] Hematocrit (Bld) [Volume fraction] 38.6 % 36.0 - 48.0 % [facility] Hemoglobin (Bld) [Mass/Vol] 12.1 g/dL 12.0 - 16.0 g/dL [facility] IMMATURE GRANULOCYTES ABS AUTO 0.03 [facility] Immature granulocytes/100 WBC (Bld) 0.5 % 0.0 - 0.5 % [facility] Interpretation and review of laboratory results Abnormal [facility] LYMPHOCYTES ABSOLUTE AUTO 1.2 [facility] Lymphocytes/100 WBC (Bld) 18.6 % Low 20.5 - 60.0 % [facility] MCH (RBC) [Entitic mass] 27.2 pg 26.7 - 34.0 pg [facility] MCHC (RBC) [Mass/Vol] 31.3 g/dL 29.9 - 35.2 g/dL [facility] MCV (RBC) [Entitic vol] 86.7 fL 81.0 - 99.0 fL [facility] MONOCYTES ABSOLUTE AUTO 0.6 [facility] Monocytes/100 WBC (Bld) 8.4 % 1.7 - 12.0 % [facility] NEUTROPHILS ABSOLUTE AUTO 4.5 [facility] Neutrophils/100 WBC (Bld) 69.4 % 43.0 - 75.0 % [facility] Platelet mean volume (Bld) [Entitic vol] 9.4 fL Low 9.5 - 13.5 fL [facility] TBH EO # 0.2 [facility]H PLT [address] [facility] RBC 4.45 [facility] WBC 6.5 [facility] NON-SPECIALIST MANAGERS CYTOLOGY - CELLULAR EXAMon 10-16-2024 LAB AP [facility] Comment on above: Order Comment: Via c ysto bladder wash Result Comment: Non- gynecologic Cytology Case: [id number] Authorizing Provider: Lisa Zelaya MD Collected: 10/16/2024 1531 Ordering Location: [facility] [place] [facility] Received: 10/16/2024 1531 Urology Pathologist: Sarah Mckenna MD Specimen: Bladder washing Performed By: #### L AB13 #### [facility] ([facility]) [address] [place] [address] LAB AP CLINICAL INFORMATION Order Diagnoses [facility] Comment on above: Order Comment: Via c ysto bladder wash Result Comment: C67. 4 - Malignant neoplasm of posterior wall of urinary bladder (CMS/HCC) [ICD-10-CM] Performed By: #### L AB13 #### [facility] ([facility]) [address] [place] [address] LAB AP GROSS DESCRIPTION [facility] Comment on above: Order Comment: Via c ysto bladder wash Result Comment: 15 m L clear, clear light fluid Performed By: #### L [id number] #### [facility] (BEAKER) [address] [place] [address] LAB AP REPORT FINAL DIAGNOSIS NARRATIVE Normal [facility] Comment on above: Order Comment: Via c ysto bladder wash Result Comment: A. B ladder, washing: - Negative for high grade urothelial carcinoma. Performed By: #### L [id number] #### [facility] (BEAKER) [address] [facility] [place] [address] Procedure Visiton 10-16-2024 Procedure Visit [id number] Daniella Bejarano 1960 F Date Provider Department Center 10/16/2024 Moe-LISA ZELAYA [facility] Family History Problem Relation Age of Onset Hypertension Mother Atrial fibrillation Mother Other Sister Coronary artery disease Brother Hypertension Brother Family Status - Relation Status Age at Mother Sister Brother Level of Service:38597 ME OFFICE/OUTPATIENT ESTABLISHED LOW MDM 20 MIN Reason for Visit and Comments: Follow-up [313542] [facility] 36on 08-15-2024 36 Pertaining to proBNP From: Nasra Bustos MD Sent: 08/12/2024 6:44 PM EDT To: Lynne Maldonado MA Subject: RE: Scan Please tell her that the NT proBNP was very low. Less likely that she has heart failure. Same recommendations and follow-up Gave pt the message [facility] Telephoneon 08-15-2024 Telephone [id number] Daniella Bejarano 1960 Date Provider Department Center 08/15/2024 [id number], TANA MICHELLE Krueger [facility] Family History Problem Relation Age of Onset Hypertension Mother Atrial fibrillation Mother Other Sister Coronary artery disease Brother Hypertension Brother Family Status - Relation Status Age at Mother Sister Brother [facility] ALL PRO BNPon 08-12-2024 NT PRO B TYPE NATRIURETIC PEPT 87 pg/mL NINF - 900.0 pg/mL [facility] Office Visiton 08-12-2024 Follow-up visit [id number] Daniella Bejarano 1960 Provider Department Center 08/12/2024 Alber-NASRA BUSTOS MICHELLE [facility] Family History Problem Relation Age of Onset Hypertension Mother Atrial fibrillation Mother Other Sister Coronary artery disease Brother Hypertension Brother Family Status - Relation Status Age at Mother Sister Brother Level of Service:98346 ME OFFICE/OUTPATIENT ESTABLISHED MOD MDM 30 MIN [facility] NON-SPECIALIST MANAGERS CYTOLOGY - CELLULAR EXAMon 07-10-2024 LAB AP CASE REPORT [facility] Comment on above: Order Comment: Via carmen reyes Result Comment: Non- gynecologic Cytology Case: [id number] Authorizing Provider: Lisa Zelaya MD Collected: 07/10/20243 Ordering Location: [facility] [place] Received: 07/10/2024 1433 Urology Pathologist: Sarah Mckenna MD Specimen: Bladder washing Performed By: #### L [id number] #### [facility] (BEAKER) [address] [place] [address] LAB AP CLINICAL INFORMATION Order Diagnoses [facility] Comment on above: Order Comment: Via c ysto Result Comment: 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) [address] [place] [address] LAB AP GROSS DESCRIPTION [facility] Comment on above: Order Comment: Via c ysto Result Comment: 13.5 mL clear, pale yellow fluid Performed By: #### L [id number] #### [facility] ([facility]) [address] [place] [address] LAB AP REPORT FINAL DIAGNOSIS NARRATIVE [facility] Comment on above: Order Comment: Via c ysto Result Comment: A. B ladder, washing: - Nondiagnostic. - Scant cellularity due to obscuring lubricant. Performed By: #### L [id number] #### [facility] ([facility]) [address] [place] [address] Procedure Visiton 07-10-2024 Procedure Visit [id number] TitijassiDaniella A 1960 F Date Provider Department Center 07/10/2024 LISA JOY [facility] Family History Problem Relation Age of Onset Hypertension Mother Atrial fibrillation Mother Other Sister Coronary artery disease Brother Hypertension Brother Family Status - Relation Status Age at Mother Sister Brother Level of Service:53425 ME OFFICE/OUTPATIENT ESTABLISHED LOW MDM 20 MIN Reason for Visit and Comments: Follow-up [731193] [facility] NON-SPECIALIST MANAGERS CYTOLOGY - CELLULAR EXAMon 04-10-2024 LAB AP CASE REPORT Normal [facility] Comment on above: Order Comment: Via c ysto Result Comment: Non- gynecologic Cytology Case: [id number] Authorizing Provider: Lisa Zelaya MD Collected: 04/10/2024 1544 Ordering Location: [facility] [place] Received: 04/10/2024 1544 Urology Pathologist: Adelita Peralta MD Specimen: Bladder washing Performed By: #### L [id number] ####[facility] (BEAKER)[address] [place] [address] LAB AP CLINICAL INFORMATION Order Diagnoses [facility] Comment on above: Order Comment: Via c ysto Result Comment: 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 B ladder washing: - Negative for high grade urothelial carcinoma. Performed By: #### L [id number] ####[facility] (BECADENCE)[address] [place] [address] Procedure Visiton 04-10-2024 Procedure Visit [id number] Daniella Bejarano 1960 Date Provider Department Center 04/10/2024 Moe-LISA ZELAYA [facility] Family History Problem Relation Age of Onset Hypertension Mother Atrial fibrillation Mother Other Sister Coronary artery disease Brother Hypertension Brother Family Status - Relation Status Age at Mother Sister Brother Level of Service:61901 ME OFFICE/OUTPATIENT ESTABLISHED LOW MDM 20 MIN Reason for Visit and Comments: Follow-up [111462] [facility] Telephoneon 04-03-2024 Telephone [id number] Daniella Bejarano 1960 Date Provider Department Center 04/03/2024 REEMA CARD [facility] Family History Problem Relation Age of Onset Hypertension Mother Atrial fibrillation Mother Other Sister Coronary artery disease Brother Hypertension Brother Family Status - Relation Status Age at Mother Sister Brother Normal [facility] HISTOLOGY - TISSUE EXAMon LAB AP CASE REPORT Normal [facility] Comment on above: Result Comment: Surg ical Pathology Case: [id number] Authorizing Provider: Jenn Vieira MD Collected: 03/19/2024 1224 Ordering Location: [facility] Received: 03/19/2024 1356 [facility] Endoscopy Pathologist: Mel Mortensen MD Specimens: A) - Large Intestine, Right/Ascending Colon, small ascending cln polyps r/o adenoma B) - Large Intestine, Right/Ascending Colon, large proximal ascending cln polyp EMR r/o adenoma C) - Large Intestine, Right/Ascending Colon, large distal ascending cln EMR polyp r/o adenoma Performed By: #### L [id number] ####[facility] (BEAKER)[address] [place] [address] LAB AP CLINICAL INFORMATION Order Diagnoses Normal [facility] Comment on above: Result Comment: D12. 6 - Adenomatous polyp of colon, unspecified part of colon [ICD-10-CM] Performed By: #### L [id number] ####[facility] (BEAKER)[address] [place] [address] LAB AP GROSS DESCRIPTION [facility] Comment on above: Result Comment: A. L arge Intestine, Right/Ascending Colon. Received in formalin in a container labeled Daniellaruby [place]sr[place], small ascending cln polyps r/o adenoma, is [...] Received in formalin in a container labeled Daniellaruby Wallsrk, large proximal ascending cln polyp EMR r/o [...] Lees, Pathology PGY-2 Performed By: #### L [id number] ####[facility] (AKER)[address] [place] [address] LAB AP MICROSCOPIC DESCRIPTION Microscopic examination performed. [facility] Comment on above: Performed By: #### L [id number] ####[facility] ([facility])[address] [place] [address] LAB AP REPORT FINAL DIAGNOSIS NARRATIVE [facility] Comment on above: Result Comment: A. C olon, ascending polyp, biopsy: - Tubular adenoma B. Colon, large proximal ascending polyp, biopsy: - Tubular adenoma C. Colon, large distal ascending polyp, biopsy: - Tubular adenoma Performed By: #### L [id number] ####[facility] NOLAN BUTLER)ANH SPENCER [id number] HPon 03-19-2024 HP -- Attestation signed by Jenn Vieira MD at [...] colonoscopy with possible EMR. Colonoscopy at the [facility] on 02/13/2024 revealed 2 subcentimeter polyps in the cecum/ascending colon biopsied with cold snare. Pandiverticulosis. Plan: Colonoscopy with EMR today History Of Present Illness This is a 56-year-old female who recently underwent colonoscopy 3 weeks ago on 02/13/2024 found to have cecal polyps, biopsies were obtained and revealed tubular adenoma. Presenting today for colonoscopy with possible EMR. Colonoscopy at the [facility] on 02/13/2024 revealed 2 subcentimeter polyps [...] Coronary artery disease Brother Hypertension Brother Allergies Oxycodone-acetaminophe n Medications (Not in a hospital admission) Review [...] colonoscopy with possible EMR. Colonoscopy at the [facility] on 02/13/2024 revealed 2 subcentimeter polyps in the cecum/ascending colon biopsied with cold snare. Pandiverticulosis. Plan: Colonoscopy with EMR today Normal [facility] NURSNOTEon 03-19-2024 NURSNOTJavon Vieira is at bedside updating patient and family Normal [facility] NURSNOTE Grounding patch removed skin dry and intact [facility] POCT GLUCOSE METER UNSOLICIT ED RESULTSon 03-19-2024 Glucose [Mass/Vol] 117 mg/dL High 70-105 [facility] Comment on above: Order Comment: Waive d Testing in the ED is performed under the ED CLIA certificate #[id number]. Result Comment: dhol as Performed By: #### L [id number] ####[facility] (BEAKER)[address] [place] [address] Prep for Procedureon 024 Prep for Procedure [id number] Daniella Bejarano 1960 Provider Department Center 03/12/2024 [facility] Problem Relation Age of Onset Hypertension Mother Atrial fibrillation Mother Other Sister Coronary artery disease Brother Hypertension Brother Family Status - Relation Status Age at Mother Sister Brother [facility] Letter (Out)on 03-06-2024 Letter (Out) [id number] Daniella Bejarano 1960 Provider Department Center 03/06/2024 None-None [facility] Family History Problem Relation Age of Onset Hypertension Mother Atrial fibrillation Mother Other Sister Coronary artery disease Brother Hypertension Brother Family Status - Relation Status Age at Mother Sister Brother Normal [facility] Orders Onlyon 03-01-2024 Orders Only [id number] Daniella Bejarano A 1960 Provider Department Center 03/01/2024 [facility] History Problem Relation Age of Onset Hypertension Mother Atrial fibrillation Mother Other Sister Coronary artery disease Brother Hypertension Brother Family Status - Relation Status Age at Mother Sister Brother [facility] Garret 02-14-2024 L Specimen: [id number] Received: 02/14/24 Status: SOUT Req Num: [id number] Spec Type: Surgical Subm Dr: Jeff Cordova Tissues: A Colon Biopsy (CECAL POLYP) Procedures: HE/2, Gross/Micro L4 Age/ Patient Sex Location Account Attending Physician AngeDaniella martin Chris 63/F LABELL [id number] Jeff Cordova SPEC NUM: [id number] RECD: 02/14/24 STATUS: LALY HODGES NUM: [id number] JULIA: 02/14/24 DR: Jeff Cordova ENTERED: 02/14/24 [facility] DR: SPEC TYPE: Surgical DEPT: ISADORA VIRK ENTERED BY: [id number] RECV BY: [id number] ORDERED: HE/2, Gross/Micro L4 ORDERED: HE/2, Gross/Micro [...] cecal polyp x2, smith-diverticulosis. TW/CYC CPT Codes 16744 ---- ---- Specimen: [id number] Received: 02/14/24 Status: LALY Hodges Num: [id number] Spec Type: Surgical Subm Dr: Jeff Cordova Tissues: A Colon Biopsy (CECAL POLYP) Procedures: HE/2, Gross/Micro L4 ---- Patient: Sarai Bejaranon Chris [id number] (Continued) ---- Signed (signature on file) Bernardino-Horacio Jeter MD 02/17/241900 [facility] Office Visiton 02-09-2024 Follow-up visit [id number] Daniella Bejarano 1960 F Date Provider Department Center 02/09/2024 Sadie-OZZY DANIELS Family History Problem Relation Age of Onset Hypertension Mother Atrial fibrillation Mother Other Sister Coronary artery disease Brother Hypertension Brother Family Status - Relation Status Age at Mother Sister Brother Level of Service:08661 ME OFFICE/OUTPATIENT ESTABLISHED MOD MDM 30 MIN [facility] 01-17-2024 36 Patient will call me back if she decides she'd like to proceed with PFT's. [facility] 36on 01-16-2024 36 Patient called back to make you aware that her edema is better. She says it's better because she isn't on the cruise anymore and eating so much salt . She said her SOB remains the same, as she's still huffin and puffin . She states I think I'm just fat . Any recommendations? (Besides weight loss and diet lol) [facility] 36 Regarding echo performed on 01/11/2024: ISIDRA Blair MA Her echo looks OK except they couldn't see her RV well- ask her if shortness of breath and edema have improved since taking lasix. LM for patient to return my call. Also let her know her Holter monitor did not show anything concerning (per Jeannette). [facility] NON-SPECIALIST MANAGERS CYTOLOGY - CELLULAR EXAMon 01-10-2024 LAB AP CASE REPORT Normal [facility] Comment on above: Order Comment: Via c ysto Result Comment: Non- gynecologic Cytology Case: [id number] Authorizing Provider: Lisa Zelaya MD Collected: 01/10/20241421 Ordering Location: [facility] [place] Received: 01/10/2024 142 Urology Pathologist: Yossi Sterling MD Specimen: Bladder washing Performed By: #### L [id number] #### [facility] (BEAKER) [address] [place] [address] LAB AP CLINICAL INFORMATION Order Diagnoses [facility] Comment on above: Order Comment: Via c ysto Result Comment: 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 Performed By: #### L [id number] #### [facility] (BEAKER) [address] [place] [address] LAB AP REPORT FINAL DIAGNOSIS NARRATIVE Normal [facility] Comment on above: Order Comment: Via c ysto Result Comment: A. B ladder washing: - Negative for high grade urothelial carcinoma. Performed By: #### L [id number] #### [facility] (BEAKER) [address] [place] [address] Procedure Visiton 01-10-2024 Procedure Visit [id number] Daniella Bejarano 1960 F Date Provider Department Center 01/10/2024 MoeJAMES BELTRÁNDEREK [facility] Family History Problem Relation Age of Onset Hypertension Mother Atrial fibrillation Mother Other Sister Coronary artery disease Brother Hypertension Brother Family Status - Relation Status Age at Mother Sister Brother Level of Service:14279 ME OFFICE/OUTPATIENT ESTABLISHED LOW MDM 20 MIN Reason for Visit and Comments: Follow-up [228411] [facility] 37on 01-02-2024 37 Increase lasix to 40 mg daily for 2-3 days to remove fluid, then return to 20 mg daily Have blood drawn for mag, electrolytes and renal function [facility] will call you for echocardiogram Normal [facility] Office Visiton 01-02-2024 Follow-up visit [id number] Daniella Bejarano 1960 Provider Department Center 01/02/2024 OZZY PULLIAM [facility] Family History Problem Relation Age of Onset Hypertension Mother Atrial fibrillation Mother Other Sister Coronary artery disease Brother Hypertension Brother Family Status - Relation Status Age at Mother Sister Brother Level of Service:00488 ME OFFICE/OUTPATIENT ESTABLISHED MOD MDM 30 MIN Normal [facility] CBC AUTO DIFFon 03-06-2023 BASO # 0.1 103/ul Normal 0.0-0.[address] [facility] Comment on above: Performed By: #### C YTO #### [facility] [address] [place] [address] Dr. Troy Jeter Basophils/100 WBC (Bld) 1.1 % Normal 0.2-2.0 [facility] Comment on above: Performed By: #### C YTO #### [facility] [address] [place] [address] Dr. Troy Jeter EO # 0.2 103/ul Normal 0.0-0.7 [facility] Comment on above: Performed By: #### C YTO #### [facility] [address] [place] [address] Dr. Troy Jeter Eosinophils/100 WBC (Bld) 2.8 % Normal 0.9-7.0 [facility] Comment on above: Performed By: #### C YTO #### [facility] [address] [place] [address] Dr. Troy Jeter Erythrocyte distribution width (RBC) [Ratio] 15.1 % Critically high 11.0-15.[address] [facility] Comment on above: Performed By: #### C YTO #### [facility] [address] [place] [address] Dr. Troy Jeter Hematocrit (Bld) [Volume fraction] 39.7 % Normal 36.0-48.[address] [facility] Comment on above: Performed By: #### C YTO #### [facility] [address] [place] [address] Dr. Troy Jeter Hemoglobin (Bld) [Mass/Vol] 12.3 g/dL Normal 12.0-16.[address] [facility] Comment on above: Performed By: #### C YTO #### [facility] [address] [place] [address] Dr. Troy Jeter IG # 0.02 10e3/ul Normal 0.00-0.[address] [facility] Comment on above: Performed By: #### C YTO #### [facility] [address] [place] [address] Dr. Troy Jeter IG % 0.4 % Normal 0.0-0.[address] [facility] Comment on above: Performed By: #### C YTO #### [facility] [address] [place] [address] Dr. Troy Jeter LYMPH # 1.3 103/ul Normal 1.2-3.8 [facility] Comment on above: Performed By: #### C YTO #### [facility] [address] [place] [address] Dr. Troy Jeter Lymphocytes/100 WBC (Bld) 22.0 % Normal 20.5-60.[address] [facility] Comment on above: Performed By: #### C YTO #### [facility] [address] [place] [address] Dr. Troy Jeter MANUAL DIFF REQ NO Normal [facility] Comment on above: Performed By: #### C YTO #### [facility] [address] [place] [address] Dr. Troy Jeter MCH (RBC) [Entitic mass] 25.5 pg Critically low 26.7-34.[address] [facility] Comment on above: Performed By: #### C YTO #### [facility] [address] [place] [address] Dr. Troy Jeter MCHC (RBC) [Mass/Vol] 31.0 g/dL Normal 29.9-35.2 [facility] Comment on above: Performed By: #### C YTO #### [facility] [address] [place] [address] Dr. Troy Jeter MCV (RBC) [Entitic vol] 82.2 fL Normal 81.0-99.[address] [facility] Comment on above: Performed By: #### C YTO #### [facility] [address] [place] [address] Dr. Troy Jeter MONO # 0.5 103/ul Normal 0.3-0.8 [facility] Comment on above: Performed By: #### C YTO #### [facility] [address] [place] [address] Dr. Troy Jeter Monocytes/100 WBC (Bld) 8.6 % Normal 1.7-12.[address] [facility] Comment on above: Performed By: #### C YTO #### [facility] [address] [place] [address] Dr. Troy Jeter NEUT # 3.7 103/ul Normal 1.4-6.5 [facility] Comment on above: Performed By: #### C YTO #### [facility] [address] [place] [address] Dr. Troy Jeter Neutrophils/100 WBC (Bld) 65.1 % Normal 43.0-75.0 [facility] Comment on above: Performed By: #### C YTO #### [facility] [address] [place] [address] Dr. Troy Jeter Platelet mean volume (Bld) [Entitic vol] 9.0 fL Critically low 9.5-13.5 [facility] Comment on above: Performed By: #### C YTO #### [facility] [address] [place] [address] Dr. Troy Jeter PLT 211 103/ul Normal 150-[address] [facility] Comment on above: Performed By: #### C YTO #### [facility] [address] [place] [address] Dr. Troy Jeter RBC 4.83 106/ul Normal 4.20-5.[address] [facility] Comment on above: Performed By: #### C YTO #### [facility] [address] [place] [address] Dr. Troy Jeter WBC 5.7 103/ul Normal 4.0-11.[address] [facility] Comment on above: Performed By: #### C YTO #### [facility] [address] [place] [address] Dr. Troy Jeter PROF 14(COMP METB)on 023 Albumin [Mass/Vol] 3.4 g/dL Normal 3.4-5.0 [facility] Comment on above: Performed By: #### C BC #### [facility] [address] [place] [address] Dr. Troy Jeter Albumin/Globulin [Mass ratio] 0.9 {ratio} Normal [facility] Comment on above: Performed By: #### C BC #### [facility] [address] [place] [address] Dr. Troy Jeter ALP [Catalytic activity/Vol] 94 U/L Normal 46-116 [facility] Comment on above: Performed By: #### C BC #### [facility] [address] [place] [address] Dr. Troy Jeter ALT [Catalytic activity/Vol] 61 U/L Critically high 14-[address] [facility] Comment on above: Performed By: #### C BC #### [facility] [address] [place] [address] Dr. Troy Jeter Anion gap [Moles/Vol] 11.6 mmol/L Normal [facility] Comment on above: Performed By: #### C BC #### [facility] [address] [address] [address] Troy Jeter AST [Catalytic activity/Vol] 48 U/L Critically high 15-[address] [facility] Comment on above: Performed By: #### C BC #### [facility] [address] [place] [address] Dr. Troy Jeter Bilirubin [Mass/Vol] 0.3 mg/dL Normal 0.2-1.[address] [facility] Comment on above: Performed By: #### C BC #### [facility] [address] [place] [address] Dr. Troy Jeter Calcium [Mass/Vol] 9.3 mg/dL Normal 8.5-10.1 [facility] Comment on above: Performed By: #### C BC #### [facility] [address] [place] [address] Dr. Troy Jeter Chloride [Moles/Vol] 106 mmol/L Normal 98-[address] [facility] Comment on above: Performed By: #### C BC #### [facility] [facility] [address] [place] [address] Dr. Troy Jeter CO2 [Moles/Vol] 25.4 mmol/L Normal 21.0-32.0 [facility] Comment on above: Performed By: #### C BC #### [facility] [address] [place] [address] Dr. Troy Jeter Creatinine [Mass/Vol] 1.06 mg/dL Critically high 0.55-1.[address] [facility] Comment on above: Performed By: #### C BC #### [facility] [address] [place] [address] Dr. Troy Jeter EGFR-AF NIUEAN >60 Normal >=60 [facility] Comment on above: Performed By: #### C BC #### [facility] [address] [place] [address] Dr. Troy Jeter EGFR-NON AF NIUEAN 52 mL/min/1.73m2 Critically low >=60 [facility] Comment on above: Performed By: #### C BC #### [facility] [address] [place] [address] Dr. Troy Jeter Globulin (S) [Mass/Vol] 4.0 g/dL Normal [facility] Comment on above: Performed By: #### C BC #### [facility] [address] [place] [address] Dr. Troy Jeter Glucose [Mass/Vol] 132 mg/dL Critically high 74-106 [facility] Comment on above: Performed By: #### C BC #### [facility] [address] [place] [address] Dr. Troy Jeter Potassium [Moles/Vol] 4.0 mmol/L Normal 3.5-5.[address] [facility] Comment on above: Performed By: #### C BC #### [facility] [address] [place] [address] Dr. Troy Jeter Protein [Mass/Vol] 7.4 g/dL Normal 6.4-8.2 [facility] Comment on above: Performed By: #### C BC #### [facility] [address] [place] [address] Dr. Troy Jeter Sodium [Moles/Vol] 139 mmol/L Normal 136-145 [facility] Comment on above: Performed By: #### C BC #### [facility] [address] [place] [address] Dr. Troy Jeter Urea nitrogen [Mass/Vol] 16.0 mg/dL Normal 7.0-18.[address] [facility] Comment on above: Performed By: #### C BC #### [facility] [address] [place] [address] Dr. Troy Jeter Urea nitrogen/Creatinine [Mass ratio] 15.1 mg/mg Normal [facility] Comment on above: Performed By: #### C BC #### [facility] [address] [place] [address] Dr. Troy Jeter CBC AUTO DIFFon 03-02-2023 BASO # 0.1 103/ul Normal 0.0-0.[address] [facility] Comment on above: Performed By: #### C YTO #### [facility] [address] [place] [address] Dr. Troy Jeter Basophils/100 WBC (Bld) 0.9 % Normal 0.2-2.[address] [facility] Comment on above: Performed By: #### C YTO #### [facility] [address] [place] [address] Dr. Troy Jeter EO # 0.2 103/ul Normal 0.0-0.[address] [facility] Comment on above: Performed By: #### C YTO #### [facility] [address] [place] [address] Dr. Troy Jeter Eosinophils/100 WBC (Bld) 2.9 % Normal 0.9-7.[address] [facility] Comment on above: Performed By: #### C YTO #### [facility] [address] [place] [address] Dr. Troy Jeter Erythrocyte distribution width (RBC) [Ratio] 15.3 % Critically high 11.0-15.[address] [facility] Comment on above: Performed By: #### C YTO #### [facility] [address] [place] [address] Dr. Troy Jeter Hematocrit (Bld) [Volume fraction] 36.8 % Normal 36.0-48.[address] [facility] Comment on above: Performed By: #### C YTO #### [facility] [address] [place] [address] Dr. Troy Jeter Hemoglobin (Bld) [Mass/Vol] 11.5 g/dL Critically low 12.0-16.[address] [facility] Comment on above: Performed By: #### C YTO #### [facility] [address] [place] [address] Dr. Troy Jeter IG # 0.02 10e3/ul Normal 0.00-0.[address] [facility] Comment on above: Performed By: #### C YTO #### [facility] [address] [place] [address] Dr. Troy Jeter IG % 0.3 % Normal 0.0-0.[address] [facility] Comment on above: Performed By: #### C YTO #### [facility] [address] [place] [address] Dr. Troy Jeter LYMPH # 1.5 103/ul Normal 1.2-3.8 [facility] Comment on above: Performed By: #### C YTO #### [facility] [address] [place] [address] Dr. Troy Jeter Lymphocytes/100 WBC (Bld) 24.8 % Normal 20.5-60.[address] [facility] Comment on above: Performed By: #### C YTO #### [facility] [address] [place] [address] Dr. Troy Jeter MANUAL DIFF REQ NO Normal [facility] Comment on above: Performed By: #### C YTO #### [facility] [address] [place] [address] Dr. Troy Jeter MCH (RBC) [Entitic mass] 25.4 pg Critically low 26.7-34.[address] [facility] Comment on above: Performed By: #### C YTO #### [facility] [address] [place] [address] Dr. Troy Jeter MCHC (RBC) [Mass/Vol] 31.3 g/dL Normal 29.9-35.2 [facility] Comment on above: Performed By: #### C YTO #### [facility] [address] [place] [address] Dr. Troy Jeter MCV (RBC) [Entitic vol] 81.4 fL Normal 81.0-99.0 [facility] Comment on above: Performed By: #### C YTO #### [facility] [address] [place] [address] Dr. Troy Jeter MONO # 0.5 103/ul Normal 0.3-0.8 [facility] Comment on above: Performed By: #### C YTO #### [facility] [address] [place] [address] Dr. Troy Jeter Monocytes/100 WBC (Bld) 8.4 % Normal 1.7-12.[address] [facility] Comment on above: Performed By: #### C YTO #### [facility] [address] [place] [address] Dr. Troy Jeter NEUT # 3.7 103/ul Normal 1.4-6.[address] [facility] Comment on above: Performed By: #### C YTO #### [facility] [address] [place] [address] Dr. Troy Jeter Neutrophils/100 WBC (Bld) 62.7 % Normal 43.0-75.[address] [facility] Comment on above: Performed By: #### C YTO #### [facility] [address] [place] [address] Dr. Troy Jeter Platelet mean volume (Bld) [Entitic vol] 9.2 fL Critically low 9.5-13.[address] [facility] Comment on above: Performed By: #### C YTO #### [facility] [address] [place] [address] Dr. Troy Jeter PLT 193 103/ul Normal 150-450 [facility] Comment on above: Performed By: #### C YTO #### [facility] [address] [place] [address] Dr. Troy Jeter RBC 4.52 106/ul Normal 4.20-5.40 [facility] Comment on above: Performed By: #### C YTO #### [facility] [address] [place] [address] Dr. Troy Jeter WBC 5.9 103/ul Normal 4.0-11.[address] [facility] Comment on above: Performed By: #### C YTO #### [facility] [address] [place] [address] Dr. Troy Jeter GLYCOHEMOGLOBIN A1Con 2022 ADA RECOMMENDATION SEE BELOW Normal [facility] Comment on above: Result Comment: ADA RECOMMENDED LIMIT 4.0 - 6.0 ADA THERAPEUTIC TARGET < 7.0 ACTION SUGGESTED > 7.0 Performed By: #### C BC #### [facility] [address] [place] [address] Dr. Troy Jeter Glucose [Mass/Vol] 123 mg/dL Normal [facility] Comment on above: Performed By: #### C BC #### [facility] [address] [place] [address] Dr. Troy Jeter HbA1c (Bld) [Mass fraction] 5.9 % Normal 4.5-6.[address] [facility] Comment on above: Performed By: #### C BC #### [facility] [address] [address] [address] Troy Jeter LIPID PROFILEon 03-02-2023 CHOL-HDL RATIO NORM SEE BELOW Normal [facility] Comment on above: Result Comment: 3.3 - 4.4 LOW RISK 4.4 - 7.1 AVERAGE RISK 7.1 - 11.0 MODERATE RISK >11.0 HIGH RISK Performed By: #### C YTO #### [facility] [address] [address] [address] Troy Jeter Cholesterol [Mass/Vol] 156 mg/dL Normal <=[address] [facility] Comment on above: Performed By: #### C YTO #### [facility] [address] [address] [address] Troy Jeter Cholesterol in HDL [Mass/Vol] 64 mg/dL Critically high 40-[address] [facility] Comment on above: Performed By: #### C YTO #### [facility] [address] [address] [address] Troy Jeter Cholesterol in LDL [Mass/Vol] 76.4 mg/dL Normal [facility] Comment on above: Performed By: #### C YTO #### [facility] [address] [address] [address] Troy Jeter Cholesterol.total/Ch olesterol in HDL [Mass ratio] 2.4 {ratio} Normal [facility] Comment on above: Performed By: #### C YTO #### [facility] [address] [address] [address] Troy Jeter HDL NORMAL > or = 60 mg/dl - LO W CARDIOVASCULAR RISK <40 mg/dl - HIGH CARDIOVASCULAR RISK Normal [facility] Comment on above: Performed By: #### C YTO #### [facility] [address] [address] [address] Troy Jeter LDL CALC NORMAL SEE BELOW Normal [facility] Comment on above: Result Comment: <100 mg/dl OPTIMAL 100 - 129 mg/dl NEAR OR ABOVE OPTIMAL 130 - 159 mg/dl BORDERLINE HIGH 160 - 189 mg/dl HIGH >190 mg/dl VERY HIGH Performed By: #### C YTO #### [facility] [address] [place] [address] Dr. Troy Jeter Triglyceride [Mass/Vol] 78 mg/dL Normal <=[address] [facility] Comment on above: Performed By: #### C YTO #### [facility] [address] [place] [address] Dr. Troy Jeter VLDL CALC 15.6 mg/dL Normal [facility] Comment on above: Performed By: #### C YTO #### [facility] [address] [place] [address] Dr. Troy Jeter PROF 14(COMP METB)on 023 Albumin [Mass/Vol] 3.2 g/dL Critically low 3.4-5.0 [facility] Comment on above: Performed By: #### C YTO #### [facility] [address] [place] [address] Dr. Troy Jeter Albumin/Globulin [Mass ratio] 0.8 {ratio} Normal [facility] Comment on above: Performed By: #### C YTO #### [facility] [address] [place] [address] Dr. Troy Jeter ALP [Catalytic activity/Vol] 90 U/L Normal 46-[address] [facility] Comment on above: Performed By: #### C YTO #### [facility] [address] [place] [address] Dr. Troy Jeter ALT [Catalytic activity/Vol] 58 U/L Normal 14-[address] [facility] Comment on above: Performed By: #### C YTO #### [facility] [address] [place] [address] Dr. Troy Jeter Anion gap [Moles/Vol] 10.5 mmol/L Normal [facility] Comment on above: Performed By: #### C YTO #### [facility] [address] [place] [address] Dr. Troy Jeter AST [Catalytic activity/Vol] 40 U/L Critically high 15-[address] [facility] Comment on above: Performed By: #### C YTO #### [facility] [address] [place] [address] Dr. Troy Jeter Bilirubin [Mass/Vol] 0.3 mg/dL Normal 0.2-1.[address] [facility] Comment on above: Performed By: #### C YTO #### [facility] [address] [place] [address] Dr. Troy Jeter Calcium [Mass/Vol] 9.1 mg/dL Normal 8.5-10.1 [facility] Comment on above: Performed By: #### C YTO #### [facility] [address] [place] [address] Dr. Troy Jeter Chloride [Moles/Vol] 106 mmol/L Normal 98-[address] [facility] Comment on above: Performed By: #### C YTO #### [facility] [address] [place] [address] Dr. Troy Jeter CO2 [Moles/Vol] 27.6 mmol/L Normal 21.0-32.0 [facility] Comment on above: Performed By: #### C YTO #### [facility] [address] [place] [address] Dr. Troy Jeter Creatinine [Mass/Vol] 1.01 mg/dL Normal 0.55-1.[address] [facility] Comment on above: Performed By: #### C YTO #### [facility] [address] [place] [address] Dr. Troy Jeter EGFR-AF NIUEAN >60 Normal >=60 [facility] Comment on above: Performed By: #### C YTO #### [facility] [address] [place] [address] Dr. Troy Jeter EGFR-NON AF NIUEAN 55 mL/min/1.73m2 Critically low >=[address] [facility] Comment on above: Performed By: #### C YTO #### [facility] [address] [place] [address] Dr. Troy Jeter Globulin (S) [Mass/Vol] 3.9 g/dL Normal [facility] Comment on above: Performed By: #### C YTO #### [facility] [address] [place] [address] Dr. Troy Jeter Glucose [Mass/Vol] 112 mg/dL Critically high 74-106 [facility] Comment on above: Performed By: #### C YTO #### [facility] [address] [place] [address] Dr. Troy Jeter Potassium [Moles/Vol] 4.1 mmol/L Normal 3.5-5.[address] [facility] Comment on above: Performed By: #### C YTO #### [facility] [address] [place] [address] Dr. Troy Jeter Protein [Mass/Vol] 7.1 g/dL Normal 6.4-8.2 [facility] Comment on above: Performed By: #### C YTO #### [facility] [address] [place] [address] Dr. Troy Jeter Sodium [Moles/Vol] 140 mmol/L Normal 136-145 [facility] Comment on above: Performed By: #### C YTO #### [facility] [address] [place] [address] Dr. Troy Jeter Urea nitrogen [Mass/Vol] 14.0 mg/dL Normal 7.0-18.[address] [facility] Comment on above: Performed By: #### C YTO #### [facility] [address] [place] [address] Dr. Troy Jeter Urea nitrogen/Creatinine [Mass ratio] 13.9 mg/mg Normal [facility] Comment on above: Performed By: #### C YTO #### [facility] [address] [place] [address] Dr. Troy Jeter TSHon 03-02-2023 TSH 3.047 uIU/mL Normal 0.358-3.740 [facility] Comment on above: Performed By: #### C YTO #### [facility] [address] [place] [address] Dr. Troy Jeter CYTOLOGYon 12-28-2022 SENT TO REF LAB 12/28/2022 Normal [facility] Comment on above: Performed By: #### C YTO #### [facility] [address] [place] [address] Dr. Troy Jeter SENT TO REF LAB 12/28/2022 Normal [facility] Comment on above: Performed By: #### C YTO #### [facility] [address] [place] [address] Dr. Troy Jeter PROTIMEon 12-21-2022 INR Coag (PPP) [Relative time] 1.00 {INR} Normal [facility] Comment on above: Performed By: #### C YTO #### [facility] [address] [place] [address] Dr. Troy Jeter INR GUIDELINES SEE BELOW Normal [facility] Comment on above: Result Comment: LORENA RED INR: 2.0 - 3.0 CONDITIONS NOT LISTED BELOW 2.5 - 3.5 FOR PROSTHETIC HEART VALVE REPLACEMENT 2.5 - 3.5 RECURRENT THROMBOSIS Performed By: #### C YTO #### [facility] [address] [place] [address] Dr. Troy Jeter PT Coag (PPP) [Time] 10.6 s Normal 9.0-11.6 [facility] Comment on above: Performed By: #### C YTO #### [facility] [address] [place] [address] Dr. Troy Jeter PTTon 12-21-2022 aPTT Coag (Bld) [Time] 26.9 s Normal 22.3-36.2 [facility] Comment on above: Performed By: #### C YTO #### [facility] [address] [place] [address] Dr. Troy Jeter CYTOLOGYon 12-07-2022 SENT TO REF LAB 12/07/2022 Normal [facility] Comment on above: Performed By: #### C YTO #### [facility] [address] [place] [address] Dr. Troy Jeter CBC AUTO DIFFon 11-23-2022 BASO # 0.1 103/ul Normal 0.0-0.[address] [facility] Comment on above: Performed By: #### C BC #### [facility] [address] [place] [address] Dr. Troy Jeter Basophils/100 WBC (Bld) 1.0 % Normal 0.2-2.[address] [facility] Comment on above: Performed By: #### C BC #### [facility] [address] [place] [address] Dr. Troy Jeter EO # 0.1 103/ul Normal 0.0-0.[address] [facility] Comment on above: Performed By: #### C BC #### [facility] [address] [place] [address] Dr. Troy Jeter Eosinophils/100 WBC (Bld) 2.4 % Normal 0.9-7.[address] [facility] Comment on above: Performed By: #### C BC #### [facility] [address] [place] [address] Dr. Troy Jeter Erythrocyte distribution width (RBC) [Ratio] 14.6 % Normal 11.0-15.[address] [facility] Comment on above: Performed By: #### C BC #### [facility] [address] [place] [address] Dr. Troy Jeter Hematocrit (Bld) [Volume fraction] 37.7 % Normal 36.0-48.[address] [facility] Comment on above: Performed By: #### C BC #### [facility] [address] [place] [address] Dr. Troy Jeter Hemoglobin (Bld) [Mass/Vol] 11.0 g/dL Critically low 12.0-16.[address] [facility] Comment on above: Performed By: #### C BC #### [facility] [address] [place] [address] Dr. Troy Jeter IG # 0.02 10e3/ul Normal 0.00-0.[address] [facility] Comment on above: Performed By: #### C BC #### [facility] [address] [place] [address] Dr. Troy Jeter IG % 0.4 % Normal 0.0-0.[address] [facility] Comment on above: Performed By: #### C BC #### [facility] [address] [place] [address] Dr. Troy Jeter LYMPH # 1.3 103/ul Normal 1.2-3.[address] [facility] Comment on above: Performed By: #### C BC #### [facility] [address] [place] [address] Dr. Troy Jeter Lymphocytes/100 WBC (Bld) 25.5 % Normal 20.5-60.[address] [facility] Comment on above: Performed By: #### C BC #### [facility] [address] [place] [address] Dr. Troy Jeter MANUAL DIFF REQ NO Normal [facility] Comment on above: Performed By: #### C BC #### [facility] [address] [place] [address] Dr. Troy Jeter MCH (RBC) [Entitic mass] 25.9 pg Critically low 26.7-34.[address] [facility] Comment on above: Performed By: #### C BC #### [facility] [address] [place] [address] Dr. Troy Jeter MCHC (RBC) [Mass/Vol] 29.2 g/dL Critically low 29.9-35.[address] [facility] Comment on above: Performed By: #### C BC #### [facility] [address] [place] [address] Dr. Troy Jeter MCV (RBC) [Entitic vol] 88.7 fL Normal 81.0-99.[address] [facility] Comment on above: Performed By: #### C BC #### [facility] [address] [place] [address] Dr. Troy Jeter MONO # 0.4 103/ul Normal 0.3-0.[address] [facility] Comment on above: Performed By: #### C BC #### [facility] [address] [place] [address] Dr. Troy Jeter Monocytes/100 WBC (Bld) 8.6 % Normal 1.7-12.[address] [facility] Comment on above: Performed By: #### C BC #### [facility] [address] [address] [address] Troy Jeter NEUT # 3.2 103/ul Normal 1.4-6.[address] [facility] Comment on above: Performed By: #### C BC #### [facility] [address] [address] [address] Troy Jeter Neutrophils/100 WBC (Bld) 62.1 % Normal 43.0-75.[address] [facility] Comment on above: Performed By: #### C BC #### [facility] [address] [place] [address] Dr. Troy Jeter Platelet mean volume (Bld) [Entitic vol] 9.4 fL Critically low 9.5-13.[address] [facility] Comment on above: Performed By: #### C BC #### [facility] [address] [place] [address] Dr. Troy Jeetr PLT 190 103/ul Normal 150-[address] [facility] Comment on above: Performed By: #### C BC #### [facility] [address] [place] [address] Dr. Troy Jeter RBC 4.25 106/ul Normal 4.20-5.[address] [facility] Comment on above: Performed By: #### C BC #### [facility] [address] [place] [address] Dr. Troy Jeter WBC 5.1 103/ul Normal 4.0-11.[address] [facility] Comment on above: Performed By: #### C BC #### [facility] [address] [place] [address] Dr. Troy Jeter PROF 14(COMP METB)on 023 Albumin [Mass/Vol] 3.4 g/dL Normal 3.4-5.0 [facility] Comment on above: Performed By: #### C BC #### [facility] [address] [place] [address] Dr. Troy Jeter Albumin/Globulin [Mass ratio] 0.9 {ratio} Normal [facility] Comment on above: Performed By: #### C BC #### [facility] [address] [address] [address] Troy Jeter ALP [Catalytic activity/Vol] 99 U/L Normal 46-[address] [facility] Comment on above: Performed By: #### C BC #### [facility] [address] [address] [address] Troy Jeter ALT [Catalytic activity/Vol] 67 U/L Critically high 14-[address] [facility] Comment on above: Performed By: #### C BC #### [facility] [address] [address] [address] Troy Jeter Anion gap [Moles/Vol] 12.8 mmol/L Normal [facility] Comment on above: Performed By: #### C BC #### [facility] [address] [address] [address] Troy Jeter AST [Catalytic activity/Vol] 54 U/L Critically high 15-[address] [facility] Comment on above: Performed By: #### C BC #### [facility] [address] [place] [address] Dr. Tryo Jeter Bilirubin [Mass/Vol] 0.4 mg/dL Normal 0.2-1.[address] [facility] Comment on above: Performed By: #### C BC #### [facility] [address] [address] [address] Troy Jeter Calcium [Mass/Vol] 9.3 mg/dL Normal 8.5-10.1 [facility] Comment on above: Performed By: #### C BC #### [facility] [facility] [address] [address] [address] Troy Jeter Chloride [Moles/Vol] 106 mmol/L Normal 98-[address] [facility] Comment on above: Performed By: #### C BC #### [facility] [address] [address] [address] Troy Jeter CO2 [Moles/Vol] 24.9 mmol/L Normal 21.0-32.0 [facility] Comment on above: Performed By: #### C BC #### [facility] [address] [address] [address] Troy Jeter Creatinine [Mass/Vol] 0.89 mg/dL Normal 0.55-1.[address] [facility] Comment on above: Performed By: #### C BC #### [facility] [address] [address] [address] Troy Jeter EGFR-AF NIUEAN >60 Normal >=60 [facility] Comment on above: Performed By: #### C BC #### [facility] [address] [address] [address] Troy Jeter EGFR-NON AF NIUEAN >60 Normal >=[address] [facility] Comment on above: Performed By: #### C BC #### [facility] [address] [place] [address] Dr. Troy Jeter Globulin (S) [Mass/Vol] 3.7 g/dL Normal [facility] Comment on above: Performed By: #### C BC #### [facility] [address] [place] [address] Dr. Troy Jeter Glucose [Mass/Vol] 125 mg/dL Critically high 74-106 [facility] Comment on above: Performed By: #### C BC #### [facility] [address] [place] [address] Dr. Troy Jeter Potassium [Moles/Vol] 3.7 mmol/L Normal 3.5-5.[address] [facility] Comment on above: Performed By: #### C BC #### [facility] [address] [place] [address] Dr. Troy Jeter Protein [Mass/Vol] 7.1 g/dL Normal 6.4-8.[address] [facility] Comment on above: Performed By: #### C BC #### [facility] [address] [place] [address] Dr. Troy Jeter Sodium [Moles/Vol] 140 mmol/L Normal 136-145 [facility] Comment on above: Performed By: #### C BC #### [facility] [address] [place] [address] Dr. Troy Jeter Urea nitrogen [Mass/Vol] 15.0 mg/dL Normal 7.0-18.[address] [facility] Comment on above: Performed By: #### C BC #### [facility] [address] [place] [address] Dr. Troy Jeter Urea nitrogen/Creatinine [Mass ratio] 16.9 mg/mg Normal [facility] Comment on above: Performed By: #### C BC #### [facility] [address] [place] [address] Dr. Troy Jeter XR HAND RT MIN [...] KAUFMAN Date: 2022-11-05 08:[address] [facility] CYTOLOGYon 08-10-2022 SENT TO REF LAB 08/10/22 Normal [facility] Comment on above: Performed By: #### C YTO #### [facility] [address] [place] [address] Dr. Troy Jeter CULTURE URINEon 07-28-2022 CULTURE URINE Culture Observations : Sent to [facility] for EVIN on 07/25. Isolate 1 Klebsiella pneumoniae >100,000 cfu/mL of ORGANISM 1 Klebsiella pneumoniae ANTIBIOTIC M.I.C RX STATUS Ampicillin R F Ceftriaxone S F Ciprofloxacin R F Ertapenem S F Gentamicin S F Imipenem S F Levofloxacin R F Nitrofurantoin R F Piperacillin/Tazobacta m I F Tobramycin R F Amoxicillin/Clavulanic Acid I F Trimethoprim/Sulfameth oxazole S F Cefuroxime I F Meropenem S F Tetracycline R F Normal [facility] Comment on above: Performed By: #### C YTO #### [facility] [address] [address] [address] Troy Jeter BUNon 07-01-2022 Urea nitrogen [Mass/Vol] 14.0 mg/dL Normal 7.0-18.[address] [facility] Comment on above: Performed By: #### C YTO #### [facility] [address] [address] [address] Troy Jeter CREATININEon 07-01-2022 Creatinine [Mass/Vol] 1.04 mg/dL Critically high 0.55-1.[address] [facility] Comment on above: Performed By: #### C YTO #### [facility] [address] [address] [address] Troy Jeter EGFR-AF NIUEAN >60 Normal >=60 [facility] Comment on above: Performed By: #### C YTO #### [facility] [address] [address] [address] Troy Jeter EGFR-NON AF NIUEAN 53 mL/min/1.73m2 Critically low >=[address] [facility] Comment on above: Performed By: #### C YTO #### [facility] [address] [address] [address] ABD/PELV WO W [...] acute intraperitoneal abnormality Electronically authenticated by: SPARKLE WHATLEY Date: 2022-07-01 11:40 Normal [facility] XR CHEST 2 Von 05-26-2022 SARS-CoV-2 [...] FRANNY ZEE Date: 2022-05-26 13:26 Normal [facility] PROTIMEon 05-04-2022 INR Coag (PPP) [Relative time] 1.00 {INR} Normal [facility] Comment on above: Performed By: #### C YTO #### [facility] [address] [place] [address] Dr. Troy Jeter INR GUIDELINES SEE BELOW Normal [facility] Comment on above: Result Comment: LORENA RED INR: 2.0 - 3.0 CONDITIONS NOT LISTED BELOW 2.5 - 3.5 FOR PROSTHETIC HEART VALVE REPLACEMENT 2.5 - 3.5 RECURRENT THROMBOSIS Performed By: #### C YTO #### [facility] [address] [place] [address] Dr. Troy Jeter PT Coag (PPP) [Time] 10.8 s Normal 9.0-11.6 [facility] Comment on above: Performed By: #### C YTO #### [facility] [address] [place] [address] Dr. Troy Jeter PTTon 05-04-2022 aPTT Coag (Bld) [Time] 24.5 s Normal 22.3-36.[address] [facility] Comment on above: Performed By: #### C YTO #### [facility] [address] [place] [address] Dr. Troy Jeter CYTOLOGYon 04-27-2022 SENT TO REF LAB 04/28/22 Normal [facility] Comment on above: Performed By: #### C YTO #### [facility] [address] [address] [address] Troy Jeter MG MAMM SCREEN LT 3D CADon 0 04-11-2022 MG MAMM SCREEN LT 3D CAD Patient: DANIELLA BEJARANO Exam Date: 04/11/2022 : 1960 Gender:F Ordering : DR BAYRON SINGH . Admission #: [id number] Family : Order #: [id number] CLICK HERE TO VIEW EXAM RADIOLOGY REPORT [...] breast cancer at age 68. LOCATION: [facility] BREAST COMPOSITION: Scattered areas fibroglandular density. FINDINGS: DIAGNOSTIC CATEGORY 1--NEGATIVE. LEFT BREAST: No significant suspicious finding. No significant change has occurred. RECOMMENDATIONS: ROUTINE MAMMOGRAM AND CLINICAL EVALUATION IN 12 MONTHS. PLEASE NOTE: A NORMAL MAMMOGRAM DOES NOT EXCLUDE THE POSSIBILITY OF BREAST CANCER. A CLINICALLY SUSPICIOUS PALPABLE LUMP SHOULD BE BIOPSIED. Dictated by: Long Allen M.D. on 04/11/2022 at 13:42 Approved by: Long Allen M.D. on 04/11/2022 at 13:44 Normal [facility] CBC AUTO DIFFon 03-31-2022 BASO # 0.0 103/ul Normal 0.0-0.[address] [facility] Comment on above: Performed By: #### C BC #### [facility] [address] [address] [address] Troy Jeter Basophils/100 WBC (Bld) 0.0 % Critically low 0.2-2.[address] [facility] Comment on above: Performed By: #### C BC #### [facility] [address] [address] [address] Troy Jeter EO # 0.1 103/ul Normal 0.0-0.[address] [facility] Comment on above: Performed By: #### C BC #### [facility] [address] [place] [address] Dr. Troy Jeter Eosinophils/100 WBC (Bld) 2.1 % Normal 0.9-7.[address] [facility] Comment on above: Performed By: #### C BC #### [facility] [address] [place] [address] Dr. Troy Jeter Erythrocyte distribution width (RBC) [Ratio] 14.3 % Normal 11.0-15.[address] [facility] Comment on above: Performed By: #### C BC #### [facility] [address] [place] [address] Dr. Troy Jeter Hematocrit (Bld) [Volume fraction] 31.8 % Critically low 36.0-48.[address] [facility] Comment on above: Performed By: #### C BC #### [facility] [address] [place] [address] Dr. Troy Jeter Hemoglobin (Bld) [Mass/Vol] 9.7 g/dL Critically low 12.0-16.[address] [facility] Comment on above: Performed By: #### C BC #### [facility] [address] [place] [address] Dr. Troy Jeter IG # 0.01 10e3/ul Normal 0.00-0.[address] [facility] Comment on above: Performed By: #### C BC #### [facility] [address] [place] [address] Dr. Troy Jeter IG % 0.3 % Normal 0.0-0.[address] [facility] Comment on above: Performed By: #### C BC #### [facility] [address] [place] [address] Dr. Troy Jeter LYMPH # 0.7 103/ul Critically low 1.2-3.8 [facility] Comment on above: Performed By: #### C BC #### [facility] [address] [place] [address] Dr. Troy Jeter Lymphocytes/100 WBC (Bld) 25.3 % Normal 20.5-60.[address] [facility] Comment on above: Performed By: #### C BC #### [facility] [address] [place] [address] Dr. Troy Jeter MANUAL DIFF REQ NO Normal [facility] Comment on above: Performed By: #### C BC #### [facility] [address] [place] [address] Dr. Troy Jeter MCH (RBC) [Entitic mass] 26.9 pg Normal 26.7-34.[address] [facility] Comment on above: Performed By: #### C BC #### [facility] [address] [place] [address] Dr. Troy Jeter MCHC (RBC) [Mass/Vol] 30.5 g/dL Normal 29.9-35.[address] [facility] Comment on above: Performed By: #### C BC #### [facility] [address] [place] [address] Dr. Troy Jeter MCV (RBC) [Entitic vol] 88.1 fL Normal 81.0-99.[address] [facility] Comment on above: Performed By: #### C BC #### [facility] [address] [place] [address] Dr. Troy Jeter MONO # 0.4 103/ul Normal 0.3-0.8 [facility] Comment on above: Performed By: #### C BC #### [facility] [address] [place] [address] Dr. Troy Jeter Monocytes/100 WBC (Bld) 14.2 % Critically high 1.7-12.0 [facility] Comment on above: Performed By: #### C BC #### [facility] [address] [place] [address] Dr. Troy Jeter NEUT # 1.7 103/ul Normal 1.4-6.5 [facility] Comment on above: Performed By: #### C BC #### [facility] [address] [address] [address] Troy Jeter Neutrophils/100 WBC (Bld) 58.1 % Normal 43.0-75.[address] [facility] Comment on above: Performed By: #### C BC #### [facility] [address] [address] [address] Troy Jeter Platelet mean volume (Bld) [Entitic vol] 9.3 fL Critically low 9.5-13.[address] [facility] Comment on above: Performed By: #### C BC #### [facility] [address] [address] [address] Troy Jeter PLT 134 103/ul Critically low 150-450 [facility] Comment on above: Performed By: #### C BC #### [facility] [address] [place] [address] Dr. Tory Jeter RBC 3.61 106/ul Critically low 4.20-5.40 [facility] Comment on above: Performed By: #### C BC #### [facility] [address] [address] [address] Troy Jeter WBC 2.9 103/ul Critically low 4.0-11.0 [facility] Comment on above: Performed By: #### C BC #### [facility] [address] [place] [address] Dr. Troy Jeter PROF 14(COMP METB)on 022 Albumin [Mass/Vol] 2.7 g/dL Critically low 3.4-5.0 [facility] Comment on above: Performed By: #### C MP #### [facility] [address] [place] [address] Dr. Troy Jeter Albumin/Globulin [Mass ratio] 0.9 {ratio} Normal [facility] Comment on above: Performed By: #### C MP #### [facility] [address] [address] [address] Troy Jeter ALP [Catalytic activity/Vol] 51 U/L Normal 46-[address] [facility] Comment on above: Performed By: #### C MP #### [facility] [address] [address] [address] Troy Jeter ALT [Catalytic activity/Vol] 57 U/L Normal 14-59 [facility] Comment on above: Performed By: #### C MP #### [facility] [address] [address] [address] Troy Jeter Anion gap [Moles/Vol] 16.1 mmol/L Normal [facility] Comment on above: Performed By: #### C MP #### [facility] [address] [address] [address] Troy Jeter AST [Catalytic activity/Vol] 69 U/L Critically high 15-[address] [facility] Comment on above: Performed By: #### C MP #### [facility] [address] [place] [address] Dr. Troy Jeter Bilirubin [Mass/Vol] 0.2 mg/dL Normal 0.2-1.[address] [facility] Comment on above: Performed By: #### C MP #### [facility] [address] [address] [address] Troy Jeter Calcium [Mass/Vol] 8.1 mg/dL Critically low 8.5-10.1 [facility] Comment on above: Performed By: #### C MP #### [facility] [address] [address] [address] Troy Jeter Chloride [Moles/Vol] 112 mmol/L Critically high 98-107 [facility] Comment on above: Performed By: #### C MP #### [facility] [address] [address] [address] Troy Jeter CO2 [Moles/Vol] 18.3 mmol/L Critically low 21.0-32.0 [facility] Comment on above: Performed By: #### C MP #### [facility] [address] [address] [address] Troy Jeter Creatinine [Mass/Vol] 0.89 mg/dL Normal 0.55-1.[address] [facility] Comment on above: Performed By: #### C MP #### [facility] [address] [address] [address] Troy Jeter EGFR-AF NIUEAN >60 Normal >=60 [facility] Comment on above: Performed By: #### C MP #### [facility] [address] [address] [address] Troy Jeter EGFR-NON AF NIUEAN >60 Normal >=[address] [facility] Comment on above: Performed By: #### C MP #### [facility] [address] [address] [address] Troy Jeter Globulin (S) [Mass/Vol] 3.0 g/dL Normal [facility] Comment on above: Performed By: #### C MP #### [facility] [address] [place] [address] Dr. Troy Jeter Glucose [Mass/Vol] 80 mg/dL Normal 74-106 [facility] Comment on above: Performed By: #### C MP #### [facility] [address] [place] [address] Dr. Troy Jeter Potassium [Moles/Vol] 3.4 mmol/L Critically low 3.5-5.[address] [facility] Comment on above: Performed By: #### C MP #### [facility] [address] [place] [address] Dr. Troy Jeter Protein [Mass/Vol] 5.7 g/dL Critically low 6.4-8.2 [facility] Comment on above: Performed By: #### C MP #### [facility] [address] [place] [address] Dr. Troy Jeter Sodium [Moles/Vol] 143 mmol/L Normal 136-145 [facility] Comment on above: Performed By: #### C MP #### [facility] [address] [place] [address] Dr. Troy Jeter Urea nitrogen [Mass/Vol] 11.0 mg/dL Normal 7.0-18.[address] [facility] Comment on above: Performed By: #### C MP #### [facility] [address] [place] [address] Dr. Troy Jeter Urea nitrogen/Creatinine [Mass ratio] 12.4 mg/mg Normal [facility] Comment on above: Performed By: #### C MP #### [facility] [address] [place] [address] Dr. Troy Jeter CBC AUTO DIFFon 03-30-2022 BASO # 0.0 103/ul Normal 0.0-0.[address] [facility] Comment on above: Performed By: #### C BC #### [facility] [address] [place] [address] Dr. Troy Jeter Basophils/100 WBC (Bld) 0.3 % Normal 0.2-2.[address] [facility] Comment on above: Performed By: #### C BC #### [facility] [address] [place] [address] Dr. Troy Jeter EO # 0.0 103/ul Normal 0.0-0.[address] [facility] Comment on above: Performed By: #### C BC #### [facility] [address] [place] [address] Dr. Troy Jeter Eosinophils/100 WBC (Bld) 1.2 % Normal 0.9-7.[address] [facility] Comment on above: Performed By: #### C BC #### [facility] [address] [place] [address] Dr. Troy Jeter Erythrocyte distribution width (RBC) [Ratio] 14.1 % Normal 11.0-15.[address] [facility] Comment on above: Performed By: #### C BC #### [facility] [address] [place] [address] Dr. Troy Jeter Hematocrit (Bld) [Volume fraction] 32.5 % Critically low 36.0-48.[address] [facility] Comment on above: Performed By: #### C BC #### [facility] [address] [place] [address] Dr. Troy Jeter Hemoglobin (Bld) [Mass/Vol] 9.8 g/dL Critically low 12.0-16.[address] [facility] Comment on above: Performed By: #### C BC #### [facility] [address] [place] [address] Dr. Troy Jeter IG # 0.01 10e3/ul Normal 0.00-0.[address] [facility] Comment on above: Performed By: #### C BC #### [facility] [address] [place] [address] Dr. Troy Jeter IG % 0.3 % Normal 0.0-0.[address] [facility] Comment on above: Performed By: #### C BC #### [facility] [address] [place] [address] Dr. Troy Jeter LYMPH # 0.6 103/ul Critically low 1.2-3.8 [facility] Comment on above: Performed By: #### C BC #### [facility] [address] [place] [address] Dr. Troy Jeter Lymphocytes/100 WBC (Bld) 18.4 % Critically low 20.5-60.[address] [facility] Comment on above: Performed By: #### C BC #### [facility] [address] [place] [address] Dr. Troy Jeter MANUAL DIFF REQ NO Normal [facility] Comment on above: Performed By: #### C BC #### [facility] [address] [place] [address] Dr. Troy Jeter MCH (RBC) [Entitic mass] 27.0 pg Normal 26.7-34.[address] [facility] Comment on above: Performed By: #### C BC #### [facility] [address] [place] [address] Dr. Troy Jeter MCHC (RBC) [Mass/Vol] 30.2 g/dL Normal 29.9-35.[address] [facility] Comment on above: Performed By: #### C BC #### [facility] [address] [place] [address] Dr. Troy Jeter MCV (RBC) [Entitic vol] 89.5 fL Normal 81.0-99.[address] [facility] Comment on above: Performed By: #### C BC #### [facility] [address] [place] [address] Dr. Troy Jeter MONO # 0.4 103/ul Normal 0.3-0.[address] [facility] Comment on above: Performed By: #### C BC #### [facility] [address] [address] [address] Troy Jeter Monocytes/100 WBC (Bld) 12.7 % Critically high 1.7-12.[address] [facility] Comment on above: Performed By: #### C BC #### [facility] [address] [address] [address] Troy Jeter NEUT # 2.2 103/ul Normal 1.4-6.[address] [facility] Comment on above: Performed By: #### C BC #### [facility] [address] [address] [address] Troy Jeter Neutrophils/100 WBC (Bld) 67.1 % Normal 43.0-75.[address] [facility] Comment on above: Performed By: #### C BC #### [facility] [address] [place] [address] Dr. Troy Jeter Platelet mean volume (Bld) [Entitic vol] 9.7 fL Normal 9.5-13.[address] [facility] Comment on above: Performed By: #### C BC #### [facility] [address] [place] [address] Dr. Troy Jeter PLT 140 103/ul Critically low 150-450 [facility] Comment on above: Performed By: #### C BC #### [facility] [address] [address] [address] Troy Jeter RBC 3.63 106/ul Critically low 4.20-5.40 [facility] Comment on above: Performed By: #### C BC #### [facility] [address] [address] [address] Troy Jeter WBC 3.3 103/ul Critically low 4.0-11.0 [facility] Comment on above: Performed By: #### C BC #### [facility] [address] [place] [address] Dr. Troy Jeter PROF 14(COMP METB)on 022 Albumin [Mass/Vol] 2.8 g/dL Critically low 3.4-5.0 [facility] Comment on above: Performed By: #### C BC #### [facility] [address] [place] [address] Dr. Troy Jeter Albumin/Globulin [Mass ratio] 0.9 {ratio} Normal [facility] Comment on above: Performed By: #### C BC #### [facility] [address] [address] [address] Troy Jeter ALP [Catalytic activity/Vol] 50 U/L Normal 46-[address] [facility] Comment on above: Performed By: #### C BC #### [facility] [address] [address] [address] Troy Jeter ALT [Catalytic activity/Vol] 58 U/L Normal 14-[address] [facility] Comment on above: Performed By: #### C BC #### [facility] [address] [place] [address] Dr. Troy Jeter Anion gap [Moles/Vol] 17.3 mmol/L Normal [facility] Comment on above: Performed By: #### C BC #### [facility] [address] [place] [address] Dr. Troy Jeter AST [Catalytic activity/Vol] 78 U/L Critically high 15-[address] [facility] Comment on above: Performed By: #### C BC #### [facility] [address] [place] [address] Dr. Troy Jeter Bilirubin [Mass/Vol] 0.2 mg/dL Normal 0.2-1.[address] [facility] Comment on above: Performed By: #### C BC #### [facility] [address] [place] [address] Dr. Troy Jeter Calcium [Mass/Vol] 8.0 mg/dL Critically low 8.5-10.1 [facility] Comment on above: Performed By: #### C BC #### [facility] [address] [place] [address] Dr. Troy Jeter Chloride [Moles/Vol] 112 mmol/L Critically high 98-[address] [facility] Comment on above: Performed By: #### C BC #### [facility] [address] [address] [address] Troy Jeter CO2 [Moles/Vol] 17.0 mmol/L Critically low 21.0-32.[address] [facility] Comment on above: Performed By: #### C BC #### [facility] [address] [address] [address] Troy Jeter Creatinine [Mass/Vol] 0.93 mg/dL Normal 0.55-1.[address] [facility] Comment on above: Performed By: #### C BC #### [facility] [address] [place] [address] Dr. Troy Jeter EGFR-AF NIUEAN >60 Normal >=60 [facility] Comment on above: Performed By: #### C BC #### [facility] [address] [place] [address] Dr. Troy Jeter EGFR-NON AF NIUEAN >60 Normal >=[address] [facility] Comment on above: Performed By: #### C BC #### [facility] [address] [place] [address] Dr. Troy Jeter Globulin (S) [Mass/Vol] 3.1 g/dL Normal [facility] Comment on above: Performed By: #### C BC #### [facility] [address] [place] [address] Dr. Troy Jeter Glucose [Mass/Vol] 77 mg/dL Normal 74-106 [facility] Comment on above: Performed By: #### C BC #### [facility] [address] [place] [address] Dr. Troy Jeter Potassium [Moles/Vol] 3.3 mmol/L Critically low 3.5-5.[address] [facility] Comment on above: Performed By: #### C BC #### [facility] [address] [place] [address] Dr. Troy Jeter Protein [Mass/Vol] 5.9 g/dL Critically low 6.4-8.2 [facility] Comment on above: Performed By: #### C BC #### [facility] [address] [place] [address] Dr. Troy Jeter Sodium [Moles/Vol] 143 mmol/L Normal 136-145 [facility] Comment on above: Performed By: #### C BC #### [facility] [address] [place] [address] Dr. Troy Jeter Urea nitrogen [Mass/Vol] 12.0 mg/dL Normal 7.0-18.[address] [facility] Comment on above: Performed By: #### C BC #### [facility] [address] [place] [address] Dr. Troy Jeter Urea nitrogen/Creatinine [Mass ratio] 12.9 mg/mg Normal [facility] Comment on above: Performed By: #### C BC #### [facility] [address] [place] [address] Dr. Troy Jeter CBC AUTO DIFFon 03-29-2022 BASO # 0.0 103/ul Normal 0.0-0.[address] [facility] Comment on above: Performed By: #### C YTO #### [facility] [address] [place] [address] Dr. Troy Jeter Basophils/100 WBC (Bld) 0.2 % Normal 0.2-2.[address] [facility] Comment on above: Performed By: #### C YTO #### [facility] [address] [place] [address] Dr. Troy Jeter EO # 0.0 103/ul Normal 0.0-0.[address] [facility] Comment on above: Performed By: #### C YTO #### [facility] [address] [place] [address] Dr. Troy Jeter Eosinophils/100 WBC (Bld) 0.2 % Critically low 0.9-7.[address] [facility] Comment on above: Performed By: #### C YTO #### [facility] [address] [place] [address] Dr. Troy Jeter Erythrocyte distribution width (RBC) [Ratio] 14.0 % Normal 11.0-15.[address] [facility] Comment on above: Performed By: #### C YTO #### [facility] [address] [address] [address] Troy Jeter Hematocrit (Bld) [Volume fraction] 35.4 % Critically low 36.0-48.[address] [facility] Comment on above: Performed By: #### C YTO #### [facility] [address] [place] [address] Dr. Troy Jeter Hemoglobin (Bld) [Mass/Vol] 10.9 g/dL Critically low 12.0-16.[address] [facility] Comment on above: Performed By: #### C YTO #### [facility] [address] [place] [address] Dr. Troy Jeter IG # 0.03 10e3/ul Normal 0.00-0.[address] [facility] Comment on above: Performed By: #### C YTO #### [facility] [address] [place] [address] Dr. Troy Jeter IG % 0.5 % Normal 0.0-0.[address] [facility] Comment on above: Performed By: #### C YTO #### [facility] [address] [place] [address] Dr. Troy Jeter LYMPH # 0.3 103/ul Critically low 1.2-3.8 [facility] Comment on above: Performed By: #### C YTO #### [facility] [address] [place] [address] Dr. Troy Jeter Lymphocytes/100 WBC (Bld) 5.8 % Critically low 20.5-60.[address] [facility] Comment on above: Performed By: #### C YTO #### [facility] [address] [place] [address] Dr. Troy Jeter MANUAL DIFF REQ NO Normal [facility] Comment on above: Performed By: #### C YTO #### [facility] [address] [place] [address] Dr. Troy Jeter MCH (RBC) [Entitic mass] 27.3 pg Normal 26.7-34.[address] [facility] Comment on above: Performed By: #### C YTO #### [facility] [address] [place] [address] Dr. Troy Jeter MCHC (RBC) [Mass/Vol] 30.8 g/dL Normal 29.9-35.2 [facility] Comment on above: Performed By: #### C YTO #### [facility] [address] [place] [address] Dr. Troy Jeter MCV (RBC) [Entitic vol] 88.7 fL Normal 81.0-99.0 [facility] Comment on above: Performed By: #### C YTO #### [facility] [address] [place] [address] Dr. Troy Jeter MONO # 0.3 103/ul Normal 0.3-0.8 [facility] Comment on above: Performed By: #### C YTO #### [facility] [address] [place] [address] Dr. Troy Jeter Monocytes/100 WBC (Bld) 6.2 % Normal 1.7-12.[address] [facility] Comment on above: Performed By: #### C YTO #### [facility] [address] [place] [address] Dr. Troy Jeter NEUT # 4.8 103/ul Normal 1.4-6.[address] [facility] Comment on above: Performed By: #### C YTO #### [facility] [address] [place] [address] Dr. Troy Jeter Neutrophils/100 WBC (Bld) 87.1 % Critically high 43.0-75.0 [facility] Comment on above: Performed By: #### C YTO #### [facility] [address] [place] [address] Dr. Troy Jeter Platelet mean volume (Bld) [Entitic vol] 9.6 fL Normal 9.5-13.5 [facility] Comment on above: Performed By: #### C YTO #### [facility] [address] [place] [address] Dr. Troy Jeter PLT 176 103/ul Normal 150-450 [facility] Comment on above: Performed By: #### C YTO #### [facility] [address] [place] [address] Dr. Troy Jeter RBC 3.99 106/ul Critically low 4.20-5.40 [facility] [place] [facility] Comment on above: Performed By: #### C YTO #### [facility] [address] [place] [address] Dr. Troy Jeter WBC 5.5 103/ul Normal 4.0-11.[address] [facility] Comment on above: Performed By: #### C YTO #### [facility] [address] [place] [address] Dr. Troy Jeter PROF 14(COMP METB)on 022 Albumin [Mass/Vol] 3.1 g/dL Critically low 3.4-5.0 [facility] Comment on above: Performed By: #### C YTO #### [facility] [address] [place] [address] Dr. Troy Jeter Albumin/Globulin [Mass ratio] 0.9 {ratio} Normal [facility] Comment on above: Performed By: #### C YTO #### [facility] [address] [place] [address] Dr. Troy Jeter ALP [Catalytic activity/Vol] 58 U/L Normal 46-[address] [facility] Comment on above: Performed By: #### C YTO #### [facility] [address] [place] [address] Dr. Troy Jeter ALT [Catalytic activity/Vol] 49 U/L Normal 14-59 [facility] Comment on above: Performed By: #### C YTO #### [facility] [address] [place] [address] Dr. Troy Jeter Anion gap [Moles/Vol] 15.7 mmol/L Normal [facility] Comment on above: Performed By: #### C YTO #### [facility] [address] [place] [address] Dr. Troy Jeter AST [Catalytic activity/Vol] 59 U/L Critically high 15-[address] [facility] Comment on above: Performed By: #### C YTO #### [facility] [address] [address] [address] Troy Jeter Bilirubin [Mass/Vol] 0.3 mg/dL Normal 0.2-1.[address] [facility] Comment on above: Performed By: #### C YTO #### [facility] [address] [place] [address] Dr. Troy Jeter Calcium [Mass/Vol] 8.1 mg/dL Critically low 8.5-10.1 [facility] Comment on above: Performed By: #### C YTO #### [facility] [address] [place] [address] Dr. Troy Jeter Chloride [Moles/Vol] 110 mmol/L Critically high 98-[address] [facility] Comment on above: Performed By: #### C YTO #### [facility] [address] [place] [address] Dr. Troy Jeter CO2 [Moles/Vol] 20.8 mmol/L Critically low 21.0-32.[address] [facility] Comment on above: Performed By: #### C YTO #### [facility] [address] [place] [address] Dr. Troy Jeter Creatinine [Mass/Vol] 0.94 mg/dL Normal 0.55-1.[address] [facility] Comment on above: Performed By: #### C YTO #### [facility] [address] [place] [address] Dr. Troy Jeter EGFR-AF NIUEAN >60 Normal >=60 [facility] Comment on above: Performed By: #### C YTO #### [facility] [address] [place] [address] Dr. Troy Jteer EGFR-NON AF NIUEAN 60 mL/min/1.73m2 Normal >=[address] [facility] Comment on above: Performed By: #### C YTO #### [facility] [address] [place] [address] Dr. Troy Jeter Globulin (S) [Mass/Vol] 3.4 g/dL Normal [facility] Comment on above: Performed By: #### C YTO #### [facility] [address] [place] [address] Dr. Troy Jeter Glucose [Mass/Vol] 95 mg/dL Normal 74-[address] [facility] Comment on above: Performed By: #### C YTO #### [facility] [address] [address] [address] Troy Jteer Potassium [Moles/Vol] 3.5 mmol/L Normal 3.5-5.[address] [facility] Comment on above: Performed By: #### C YTO #### [facility] [address] [address] [address] Troy Jeter Protein [Mass/Vol] 6.5 g/dL Normal 6.4-8.[address] [facility] Comment on above: Performed By: #### C YTO #### [facility] [address] [place] [address] Dr. Troy Jeter Sodium [Moles/Vol] 143 mmol/L Normal 136-145 [facility] Comment on above: Performed By: #### C YTO #### [facility] [address] [place] [address] Dr. Troy Jeter Urea nitrogen [Mass/Vol] 18.0 mg/dL Normal 7.0-18.[address] [facility] Comment on above: Performed By: #### C YTO #### [facility] [address] [place] [address] Dr. Troy Jeter Urea nitrogen/Creatinine [Mass ratio] 19.1 mg/mg Normal [facility] Comment on above: Performed By: #### C YTO #### [facility] [address] [place] [address] Dr. Troy Jeter CBC W MANUAL DIFFon 30-20 22 ATYPICAL LYMPH # Normal [facility] Comment on above: Performed By: #### C YTO #### [facility] [address] [place] [address] Dr. Troy Jeter ATYPICAL LYMPH % Normal [facility] Comment on above: Performed By: #### C YTO #### [facility] [address] [place] [address] Dr. Troy Jeter BAND # 0.1 103/ul Normal 0.0-0.[address] [facility] Comment on above: Performed By: #### C YTO #### [facility] [address] [place] [address] Dr. Troy Jeter BAND % 1 % Normal 0-[address] [facility] Comment on above: Performed By: #### C YTO #### [facility] [address] [place] [address] Dr. Troy Jeter BASOM # 0.08 103/ul Normal 0.00-0.[address] [facility] Comment on above: Performed By: #### C YTO #### [facility] [address] [place] [address] Dr. Troy Jeter BASOM % 1.0 % Normal 0.2-2.[address] [facility] Comment on above: Performed By: #### C YTO #### [facility] [address] [place] [address] Dr. Troy Jeter BLAST # Normal [facility] Comment on above: Performed By: #### C YTO #### [facility] [address] [place] [address] Dr. Troy Jeter BLAST % Normal [facility] Comment on above: Performed By: #### C YTO #### [facility] [address] [place] [address] Dr. Troy Jeter CORRECTED WBC Normal 4.0-11.0 [facility] Comment on above: Performed By: #### C YTO #### [facility] [address] [place] [address] Dr. Troy Jeter EOS # 0.00 103/ul Normal 0.00-0.[address] [facility] Comment on above: Performed By: #### C YTO #### [facility] [address] [place] [address] Dr. Troy Jeter EOS% 0.0 % Critically low 0.9-7.0 [facility] Comment on above: Performed By: #### C YTO #### [facility] [address] [place] [address] Dr. Troy Jeter HCT 40.2 % Normal 36.0-48.[address] [facility] Comment on above: Performed By: #### C YTO #### [facility] [address] [place] [address] Dr. Troy Jeter HGB 12.5 g/dl Normal 12.0-16.[address] [facility] Comment on above: Performed By: #### C YTO #### [facility] [address] [address] [address] Troy Jeter LYMPHM # 0.23 103/ul Critically low 1.20-3.80 [facility] [place] [facility] Comment on above: Performed By: #### C YTO #### [facility] [address] [place] [address] Dr. Troy Jeter LYMPHM% 3.0 % Critically low 20.5-60.0 [facility] Comment on above: Performed By: #### C YTO #### [facility] [address] [place] [address] Dr. Troy Jeter MCH 27.1 pg Normal 26.7-34.[address] [facility] Comment on above: Performed By: #### C YTO #### [facility] [address] [place] [address] Dr. Troy Jeter MCHC 31.1 g/dl Normal 29.9-35.[address] [facility] Comment on above: Performed By: #### C YTO #### [facility] [address] [place] [address] Dr. Troy Jeter MCV 87.2 fL Normal 81.0-99.[address] [facility] Comment on above: Performed By: #### C YTO #### [facility] [address] [place] [address] Dr. Troy Jeter METAMYELOCYTE # Normal [facility] [place] [facility] Comment on above: Performed By: #### C YTO #### [facility] [address] [place] [address] Dr. Troy Jeter METAMYELOCYTE % Normal [facility] [place] [facility] Comment on above: Performed By: #### C YTO #### [facility] [address] [place] [address] Dr. Troy Jeter MONOM# 0.08 103/ul Critically low 0.30-0.80 [facility] [place] [facility] Comment on above: Performed By: #### C YTO #### [facility] [address] [place] [address] Dr. Troy Jeter MONOM% 1.0 % Critically low 1.7-12.0 [facility] Comment on above: Performed By: #### C YTO #### [facility] [address] [place] [address] Dr. Troy Jeter MPV 10.0 fL Normal 9.5-13.[address] [facility] Comment on above: Performed By: #### C YTO #### [facility] [address] [place] [address] Dr. Troy Jeter MYELOCYTE # Normal [facility] Comment on above: Performed By: #### C YTO #### [facility] [address] [place] [address] Dr. Troy Jeter MYELOCYTE % Normal [facility] Comment on above: Performed By: #### C YTO #### [facility] [address] [place] [address] Dr. Troy Jeter NRBC Normal [facility] Comment on above: Performed By: #### C YTO #### [facility] [address] [place] [address] Dr. Troy Jeter PLT 230 103/ul Normal 150-[address] [facility] Comment on above: Performed By: #### C YTO #### [facility] [address] [place] [address] Dr. Troy Jeter RBC 4.61 106/ul Normal 4.20-5.[address] [facility] Comment on above: Performed By: #### C YTO #### [facility] [address] [place] [address] Dr. Troy Jeter RDW 13.8 % Normal 11.0-15.[address] [facility] Comment on above: Performed By: #### C YTO #### [facility] [address] [place] [address] Dr. Troy Jeter SEG # 7.14 103/ul Critically high 1.40-6.50 [facility] Comment on above: Performed By: #### C YTO #### [facility] [address], [place] [address] Dr. Troy Jeter SEG % 94.0 % Critically high 43.0-75.0 [facility] Comment on above: Performed By: #### C YTO #### [facility] [address], [place] [address] Dr. Troy Jeter WBC 7.6 103/ul Normal 4.0-11.[address] [facility] Comment on above: Performed By: #### C YTO #### [facility] [address], [place] [address] ABD/PELVIS WO CONon [...] calcifications are present. VASCULATURE: Vascularity is unremarkable. PERITONEUM/RETROPERITO NEUM: Peritoneum/retroperito neum is unremarkable. LYMPH NODES: No suspicious lymphadenopathy. [...] ABDIAZIZ HALEY Date: 2022-03-28 16:37 Normal [facility] Covid-19 PCR (CVDTBH)on 03-01 SARS-CoV-2 (COVID-19) RNA BRANDEN+probe Ql (Unsp spec) Not detected Normal NOT DETECTED [facility] Comment on above: Result Comment: When [...] for this test is supported by the [place] of Health and Human Service's declaration that [...] used). Performed By: #### C VDTBH #### [facility] [address] [place] [address] Dr. Troy Jeter ER URINE PROFILEon 2 Bilirubin Ql (U) Negative Normal NEGATIVE [facility] Comment on above: Performed By: #### C BC #### [facility] [address] [place] [address] Dr. Troy Jeter Clarity (U) CLEAR Normal CLEAR [facility] Comment on above: Performed By: #### C BC #### [facility] [address] [place] [address] Dr. Troy Jeter Color (U) LT. YELLOW Normal YELLOW [facility] Comment on above: Performed By: #### C BC #### [facility] [address] [place] [address] Dr. Troy Jeter ERUJANINED A micrscopic examination will be performed if indicated. Normal [facility] Comment on above: Performed By: #### C BC #### [facility] [address] [place] [address] Dr. Troy Jeter Glucose Ql (U) Negative Normal NEGATIVE [facility] Comment on above: Performed By: #### C BC #### [facility] [address] [place] [address] Dr. Troy Jeter Hemoglobin Ql (U) SMALL Abnormal NEGATIVE [facility] Comment on above: Performed By: #### C BC #### [facility] [address] [place] [address] Dr. Troy Jeter Ketones Ql (U) Negative Normal NEGATIVE [facility] Comment on above: Performed By: #### C BC #### [facility] [address] [place] [address] Dr. Troy Jeter LEUKOCYTES Negative Normal NEGATIVE [facility] Comment on above: Performed By: #### C BC #### [facility] [address] [place] [address] Dr. Troy Jeter Nitrite Ql (U) Negative Normal NEGATIVE [facility] Comment on above: Performed By: #### C BC #### [facility] [address] [place] [address] Dr. Troy Jeter pH (U) 6.0 [pH] Normal 5-[address] [facility] Comment on above: Performed By: #### C BC #### [facility] [address] [place] [address] Dr. Troy Jeter SPEC GRAVITY 1.020 Normal 1.005-<=1.025 [facility] Comment on above: Performed By: #### C BC #### [facility] [address] [place] [address] Dr. Troy Jeter UA PROTEIN Negative Normal NEGATIVE/ TRACE [facility] Comment on above: Performed By: #### C BC #### [facility] [address] [place] [address] Dr. Troy Jeter UR MICRO IND INDICATED Normal [facility] Comment on above: Performed By: #### C BC #### [facility] [address] [place] [address] Dr. Troy Jeter Urobilinogen Qn (U) 0.2 {Kriss'U}/dL Normal 0.2 - 1. [address] [facility] Comment on above: Performed By: #### C BC #### [facility] [address] [place] [address] Dr. Troy Jeter GI PANEL (PCR)on 03-28-2022 Adenovirus F 40/41 Not detected Normal NOT DETECTED [facility] Comment on above: Performed By: #### C YTO #### [facility] [address] [place] [address] Dr. Troy Jeter Astrovirus Not detected Normal NOT DETECTED [facility] Comment on above: Performed By: #### C YTO #### [facility] [address] [place] [address] Dr. Troy Cid. Diff toxin A/B Not detected Normal NOT DETECTED [facility] Comment on above: Performed By: #### C YTO #### [facility] [address] [place] [address] Dr. Troy Jeter Campylobacter Not detected Normal NOT DETECTED [facility] Comment on above: Performed By: #### C YTO #### [facility] [address] [place] [address] Dr. Troy Jeter Cryptosporidium Not detected Normal NOT DETECTED [facility] Comment on above: Performed By: #### C YTO #### [facility] [address] [place] [address] Dr. Troy Jeter Cyclos. Cayetanensis Not detected Normal NOT DETECTED [facility] Comment on above: Performed By: #### C YTO #### [facility] [address] [place] [address] Dr. Troy Jeter E. Coli O157 Not Applicable Normal Not Applicable [facility] Comment on above: Performed By: #### C YTO #### [facility] [address] [place] [address] Dr. Troy Jeter E. histolytica Not detected Normal NOT DETECTED [facility] Comment on above: Performed By: #### C YTO #### [facility] [address] [place] [address] Dr. Troy Jeter EAEC Not detected Normal NOT DETECTED [facility] Comment on above: Performed By: #### C YTO #### [facility] [address] [place] [address] Dr. Troy Jeter EIEC Not detected Normal NOT DETECTED [facility] [facility] Comment on above: Performed By: #### C YTO #### [facility] [address] [address] [address] Troy Jeter EPEC Not detected Normal NOT DETECTED [facility] Comment on above: Performed By: #### C YTO #### [facility] [address] [place] [address] Dr. Troy Jeter ETEC Not detected Normal NOT DETECTED [facility] Comment on above: Performed By: #### C YTO #### [facility] [address] [place] [address] Dr. Troy Jeter G. Lamblia Not detected Normal NOT DETECTED [facility] Comment on above: Performed By: #### C YTO #### [facility] [address] [place] [address] Dr. Troy KIMBROUGH CONTROLS PASSED Normal [facility] Comment on above: Performed By: #### C YTO #### [facility] [address] [place] [address] Dr. Troy DINERO HEADER GI PANEL BACTERIA Normal [facility] Comment on above: Performed By: #### C YTO #### [facility] [address] [place] [address] Dr. Troy JIMENEZ ECOLI GI PANEL DIARRHEAGEN IC E.COLI / SHIGELLA Normal [facility] Comment on above: Performed By: #### C YTO #### [facility] [address] [place] [address] Dr. Troy JIMENEZ INFO SEE BELOW [facility] Comment on above: Result Comment: EAEC - Enteroaggregative E. Coli EPEC- Enteropathogenic E. Coli ETEC- Enterotoxigenic E. Coli lt/st STEC- Shigella-like toxin-producing E. Coli stx1/stx2 EIEC- Shigella/Enteroinvasive E. Coli Performed By: #### C YTO #### [facility] [address] [address] [address] Troy JIMENEZ PARASITES GI PANEL PARASITES Normal [facility] Comment on above: Performed By: #### C YTO #### [facility] [address] [place] [address] Dr. Troy JIMENEZ VIRUS GI PANEL VIRUSES Normal [facility] Comment on above: Performed By: #### C YTO #### [facility] [address] [address] [address] Troy Jeter Norovirus GI/GII Not detected Normal NOT DETECTED [facility] Comment on above: Performed By: #### C YTO #### [facility] [address] [place] [address] Dr. Troy Jeter P. Shigelloides Not detected Normal NOT DETECTED [facility] Comment on above: Performed By: #### C YTO #### [facility] [address] [place] [address] Dr. Troy Jeter Rotavirus A Detected Abnormal NOT DETECTED The [facility] Comment on above: Performed By: #### C YTO #### [facility] [address] [place] [address] Dr. Troy Jeter Salmonella Not detected Normal NOT DETECTED [facility] Comment on above: Performed By: #### C YTO #### [facility] [address] [place] [address] Dr. Troy Jeter Sapovirus Not detected Normal NOT DETECTED [facility] Comment on above: Performed By: #### C YTO #### [facility] [address] [place] [address] Dr. Troy Jeter STEC Not detected Normal NOT DETECTED [facility] Comment on above: Performed By: #### C YTO #### [facility] [address] [place] [address] Dr. Troy Jeter Vibrio Not detected Normal NOT DETECTED [facility] Comment on above: Performed By: #### C YTO #### [facility] [address] [place] [address] Dr. Troy Jeter Vibrio Cholera Not detected Normal NOT DETECTED [facility] Comment on above: Performed By: #### C YTO #### [facility] [address] [place] [address] Dr. Troy Jeter Y. Enterocolitica Not detected Normal NOT DETECTED [facility] Comment on above: Performed By: #### C YTO #### [facility] [address] [place] [address] Dr. Troy Jeter LACTATE/LACTIC ACIDon 2021 Lactate [Moles/Vol] 1.7 mmol/L Normal 0.4-1.[address] [facility] Comment on above: Performed By: #### C BC #### [facility] [address] [place] [address] Dr. Troy Jeter LIPASEon 03-28-2022 Lipase [Catalytic activity/Vol] 135.0 U/L Normal 73.0-393.[address] [facility] Comment on above: Performed By: #### L IPA, CMP #### [facility] [address] [place] [address] Dr. Troy Jeter PROF 14(COMP METB)on 022 Albumin [Mass/Vol] 3.9 g/dL Normal 3.4-5.0 [facility] Comment on above: Performed By: #### L IPA, CMP #### [facility] [address] [place] [address] Dr. Troy Jeter Albumin/Globulin [Mass ratio] 1.0 {ratio} Normal [facility] Comment on above: Performed By: #### L IPA, CMP #### [facility] [address] [place] [address] Dr. Troy Jeter ALP [Catalytic activity/Vol] 81 U/L Normal 46-116 [facility] Comment on above: Performed By: #### L IPA, CMP #### [facility] [address] [place] [address] Dr. Troy Jeter ALT [Catalytic activity/Vol] 45 U/L Normal 14-[address] [facility] Comment on above: Performed By: #### L IPA, CMP #### [facility] [address] [place] [address] Dr. Troy Jeter Anion gap [Moles/Vol] 15.2 mmol/L Normal [facility] Comment on above: Performed By: #### L IPA, CMP #### [facility] [address] [place] [address] Dr. Troy Jeter AST [Catalytic activity/Vol] 42 U/L Critically high 15-[address] [facility] Comment on above: Performed By: #### L IPA, CMP #### [facility] [address] [place] [address] Dr. Troy Jeter Bilirubin [Mass/Vol] 0.5 mg/dL Normal 0.2-1.[address] [facility] Comment on above: Performed By: #### L IPA, CMP #### [facility] [address] [place] [address] Dr. Troy Jeter Calcium [Mass/Vol] 9.4 mg/dL Normal 8.5-10.1 [facility] Comment on above: Performed By: #### L IPA, CMP #### [facility] [address] [place] [address] Dr. Troy Jeter Chloride [Moles/Vol] 105 mmol/L Normal 98-[address] [facility] Comment on above: Performed By: #### L IPA, CMP #### [facility] [address] [place] [address] Dr. Troy Jeter CO2 [Moles/Vol] 23.7 mmol/L Normal 21.0-32.0 [facility] Comment on above: Performed By: #### L IPA, CMP #### [facility] [address] [place] [address] Dr. Troy Jeter Creatinine [Mass/Vol] 0.91 mg/dL Normal 0.55-1.02 [facility] Comment on above: Performed By: #### L IPA, CMP #### [facility] [address] [place] [address] Dr. Troy Jeter EGFR-AF NIUEAN >60 Normal >=60 [facility] Comment on above: Performed By: #### L IPA, CMP #### [facility] [address] [place] [address] Dr. Troy Jeter EGFR-NON AF NIUEAN >60 Normal >=[address] [facility] Comment on above: Performed By: #### L IPA, CMP #### [facility] [address] [address] [address] Troy Jeter Globulin (S) [Mass/Vol] 4.0 g/dL Normal [facility] Comment on above: Performed By: #### L IPA, CMP #### [facility] [address] [address] [address] Troy Jeter Glucose [Mass/Vol] 119 mg/dL Critically high 74-106 [facility] Comment on above: Performed By: #### L IPA, CMP #### [facility] [address] [place] [address] Dr. Troy Jeter Potassium [Moles/Vol] 3.9 mmol/L Normal 3.5-5.[address] [facility] Comment on above: Performed By: #### L IPA, CMP #### [facility] [address] [place] [address] Dr. Troy Jeter Protein [Mass/Vol] 7.9 g/dL Normal 6.4-8.[address] [facility] Comment on above: Performed By: #### L IPA, CMP #### [facility] [address] [place] [address] Dr. Troy Jeter Sodium [Moles/Vol] 140 mmol/L Normal 136-145 [facility] Comment on above: Performed By: #### L IPA, CMP #### [facility] [address] [place] [address] Dr. Troy Jeter Urea nitrogen [Mass/Vol] 16.0 mg/dL Normal 7.0-18.[address] [facility] Comment on above: Performed By: #### L IPA, CMP #### [facility] [address] [place] [address] Dr. Troy Jeter Urea nitrogen/Creatinine [Mass ratio] 17.6 mg/mg Normal [facility] Comment on above: Performed By: #### L IPA, CMP #### [facility] [address] [place] [address] Dr. Troy Jeter URINE MICROSCOPIC ONLYon BACTERIA TRACE Abnormal NONE SEEN [facility] Comment on above: Performed By: #### C BC #### [facility] [address] [place] [address] Dr. Troy Jeter Bacteria identified Cx Nom (U) NOT INDICATED Normal [facility] Comment on above: Performed By: #### C BC #### [facility] [address] [place] [address] Dr. Troy Jeter CAST NONE SEEN Normal NONE SEEN [facility] Comment on above: Performed By: #### C BC #### [facility] [address] [place] [address] Dr. Troy Jeter Crystals LM Nom (Urine sed) NONE SEEN Normal NONE SEEN [facility] Comment on above: Performed By: #### C BC #### [facility] [address] [place] [address] Dr. Troy Jeter Epithelial cells LM Ql (Urine sed) FEW Abnormal NONE SEEN /RARE [facility] Comment on above: Performed By: #### C BC #### [facility] [address] [place] [address] Dr. Troy Jeter MUCOUS NONE SEEN Normal NONE SEEN [facility] Comment on above: Performed By: #### C BC #### [facility] [address] [place] [address] Dr. Troy Jeter RBC 2-5 Abnormal 0-2 [facility] Comment on above: Performed By: #### C BC #### [facility] [address] [place] [address] Dr. Troy Jeter WBC 0-2 Abnormal NONE SEEN [facility] Comment on above: Performed By: #### C BC #### [facility] [address] [place] [address] Dr. Troy Jeter [facility] Surgical Pathology Depar tmenton 08-13-2020 [facility] Surgical Pathology Department Name DANIELLA BEJARANO Pathologist: AMEE KELSEY DMD Date of Procedure: 08/13/2020 Date Received: 08/17/2020 Date Reported 08/25/2020 Submitting Physician: BUTCH LONG DDS Location: [facility] Other External # FINAL DIAGNOSIS A. LEFT LATERAL TONGUE, EXCISION: -- TRAUMATIC ULCER -- NEGATIVE FOR DYSPLASIA OR MALIGNANCY ICD-10/CPT: K14.0/96630 Electronically Signed Out By AMEE KELSEY DMD/ARASELI By the signature on this report, the individual or group listed as making the Final Interpretation/Diagnos is certifies that they have reviewed this case. [...] sectioned and entirely submitted in 2 cassettes. [facility] Summary of Cassettes: Specimen Label Site A 1 tips 2 body of ellipse [facility]/08/19/2020 [facility] Department of Pathology [address] [place] [address] Normal [facility] Comment on above: Performed By: #### [facility] #### [facility] Surgical Pathology Department [address] [place] [address] Cardiovascular Lab Reporton 06-12-2020 Cardiovascular Lab Report [facility] #: [id number] Department of Physician: Nasra Bustos M.D. Division of Service Date: 06/11/2020 Cardiology Birthdate: 1960 Adult Cardiovascular Room #: [facility] [address] [address] Cardiovascular Laboratory Report INDICATION: The patient a [...] signed informed consent. She was brought to slab puller in a fasting state. The right neck area was prepped and draped in usual fashion. Using ultrasound guidance and micropuncture technique, the right internal jugular vein was accessed. A 6-Israeli x 11 cm sheath was placed. A 6-Israeli Duron catheter was used for right heart catheterization with measurement of pressures and calculation of cardiac output using the estimated Daysi method. Duron catheter was removed. Access in the right radial artery was obtained using micropuncture technique. A 6-Israeli x 11 cm Hydrophilic sheath was advanced. Verapamil was given through the sheath and heparin was administered intravenously. Note that modified David's test was favorable on the right. Initial catheter advancement was made, feasible using an angled Glidewire to overcome a radial artery loop, following which bilateral selective coronary angiography was performed using 6-Israeli JL3.5 and JR5 diagnostic catheter. Catheters were [...] P/Nasra Bustos M.D. Date Trans: 06/12/2020 04:00 A/marguerite [id number] cc: Bayron Singh M.D. [address] [place] [address] Normal [facility] *SARS-CoV-2 COVID-19on 06-09 [id number] Not Detected Normal Not Detected [facility] Comment on above: Order Comment: The A ptima SARS-CoV-2 assay is a nucleic acid amplification test intended for the qualitative detection of RNA from SARS-CoV-2 isolated and purified from nasopharyngeal (HEALTHCARE SCIENCE SPECIALIST),oropharyngeal (OP), nasal swab, sputum, and bronchoalveolar lavage (BAL) specimens from patients with signs and symptoms of infection who are suspected of COVID-19. Results are for the identification of SARS-CoV-2 RNA. The SARS-CoV-2 RNA is generally detectable during the acute phase of infection. The Aptima SARS-CoV-2 Assay on the Second Funnel and Second Funnel Fusion system is intended for use by laboratory personnel specifically instructed and trained in the operation of the Downey and Second Funnel Fusion system. The Aptima SARS-CoV-2 assay is [...] information. Performed By: #### 3 [id number] #### [facility] [address] [place] [address], [facility] 02-17-2020 CNPN Telephone (HEMASA) DANIELLA BEJARANO ([id number]) 1960 F Date Time Provider Department 02/17/20 BONNY FELIPE During your visit today, we recorded the following information about you: Ai Adam [facility] 02/17/2020 2:53 PM Signed Records faxed to [facility]. Allergies As of Date: 02/17/2020 (No Known [...] Status:Closed by AI COLVIN on 02/17/20 Normal [facility] Vital Signs Date Time Vital Sign Value Performing Clinician Facility 05-29-2025 11:06-0400 Body height 163.8 cm Bayron Singh MD Work Phone: [facility] 05-29-2025 11:06-0400 Body mass index (BMI) [Ratio] 43.43 kg/m2 Bayron Singh MD Work Phone: [facility] 05-29-2025 11:06-0400 Body temperature 97.5 [degF] Bayron Singh MD Work Phone: [facility] 05-29-2025 11:06-0400 Body weight 116.57 kg Bayron Singh MD Work Phone: [facility] 05-29-2025 11:06-0400 Diastolic blood pressure 62 mm[Hg] Bayron Singh MD Work Phone: [facility] 05-29-2025 11:06-0400 Heart rate 73 /min Bayron Singh MD Work Phone: [facility] 05-29-2025 11:06-0400 Respiratory rate 20 /min Bayron Singh MD Work Phone: [facility] 05-29-2025 11:06-0400 SaO2% (BldA) [Mass fraction] 97 % Bayron Singh MD Work Phone: [facility] 05-29-2025 11:06-0400 Systolic blood pressure 118 mm[Hg] Bayron Singh MD Work Phone: [facility] 03-19-2025 10:38-0400 Body height 163.8 cm Bayron Singh MD Work Phone: [facility] 03-19-2025 10:38-0400 Body mass index (BMI) [Ratio] 43.77 kg/m2 Bayron Singh MD Work Phone: [facility] 03-19-2025 10:38-0400 Body temperature 97.5 [degF] Bayron Singh MD Work Phone: [facility] 03-19-2025 10:38-0400 Body weight 117.48 kg Bayron Singh MD Work Phone: [facility] 03-19-2025 10:38-0400 Diastolic blood pressure 66 mm[Hg] Bayron Singh MD Work Phone: [facility] 03-19-2025 10:38-0400 Heart rate 83 /min Bayron Singh MD Work Phone: [facility] 03-19-2025 10:38-0400 Respiratory rate 20 /min Bayron Singh MD Work Phone: [facility] 03-19-2025 10:38-0400 SaO2% (BldA) [Mass fraction] 99 % Bayron Singh MD Work Phone: [facility] 03-19-2025 10:38-0400 Systolic blood pressure 124 mm[Hg] Bayron Singh MD Work Phone: [facility] 12-18-2024 09:57-0500 Body height 163.8 cm Bayron Singh MD Work Phone: [facility] 12-18-2024 09:57-0500 Body mass index (BMI) [Ratio] 46.31 kg/m2 Bayron Singh MD Work Phone: [facility] 12-18-2024 09:57-0500 Body temperature 97.5 [degF] Bayron Singh MD Work Phone: [facility] 12-18-2024 09:57-0500 Body weight 124.29 kg Bayron Singh MD Work Phone: [facility] 12-18-2024 09:57-0500 Diastolic blood pressure 78 mm[Hg] Bayron Singh MD Work Phone: [facility] 12-18-2024 09:57-0500 Heart rate 85 /min Bayron Singh MD Work Phone: [facility] 12-18-2024 09:57-0500 Respiratory rate 22 /min Bayron Singh MD Work Phone: [facility] 12-18-2024 09:57-0500 SaO2% (BldA) [Mass fraction] 97 % Bayron Singh MD Work Phone: [facility] 12-18-2024 09:57-0500 Systolic blood pressure 130 mm[Hg] Bayron Singh MD Work Phone: [facility] 11-26-2024 10:39-0500 Body height 163.8 cm Bayron Singh MD Work Phone: [facility] 11-26-2024 10:39-0500 Body mass index (BMI) [Ratio] 47.32 kg/m2 Bayron Singh MD Work Phone: [facility] 11-26-2024 10:39-0500 Body temperature 97.5 [degF] Bayron Singh MD Work Phone: [facility] 11-26-2024 10:39-0500 Body weight 127.01 kg Bayron Singh MD Work Phone: [facility] 11-26-2024 10:39-0500 Diastolic blood pressure 74 mm[Hg] Bayron Singh MD Work Phone: [facility] 11-26-2024 10:39-0500 Heart rate 89 /min Bayron Singh MD Work Phone: [facility] 11-26-2024 10:39-0500 Respiratory rate 20 /min Bayron Singh MD Work Phone: [facility] 11-26-2024 10:39-0500 SaO2% (BldA) [Mass fraction] 96 % Bayron Singh MD Work Phone: [facility] 11-26-2024 10:39-0500 Systolic blood pressure 136 mm[Hg] Bayron Naderer MD Work Phone: [facility] 08-28-2024 13:35-0400 Body height 163.8 cm Myrna Cordova DO Work Phone: [facility] 08-28-2024 13:35-0400 Body mass index (BMI) [Ratio] 46.14 kg/m2 Myrna Cordova DO Work Phone: [facility] 08-28-2024 13:35-0400 Body weight 123.83 kg Myrna Cordova DO Work Phone: [facility] 07-03-2024 13:35-0400 Body temperature 98.24 [degF] [facility] 07-03-2024 13:35-0400 Diastolic blood pressure 78 mm[Hg] [facility] 07-03-2024 13:35-0400 Heart rate 63 /min [facility] 07-03-2024 13:35-0400 Mean blood pressure 91 mm[Hg] [facility] 13:35-0400 Respiratory rate 16 /min [facility] 07-03-2024 13:35-0400 SaO2% (BldA) [Mass fraction] 98 % [facility] 07-03-2024 13:35-0400 Systolic blood pressure 117 mm[Hg] [facility] 10:40-0400 Heart rate 84 /min [facility] 04-26-2023 10:40-0400 SaO2% (BldA) [Mass fraction] 98 % [facility] 04-26-2023 10:40-0400 Body temperature 97.52 [degF] [facility] 04-26-2023 10:39-0400 Diastolic blood pressure 75 mm[Hg] [facility] 04-26-2023 10:39-0400 Mean blood pressure 87 mm[Hg] Jeff Booth [facility] 04-26-2023 10:39-0400 Systolic blood pressure 111 mm[Hg] Jeff Booth [facility] 04-26-2023 10:39-0400 Respiratory rate 16 /min Jeff Booth [facility] 01-04-2023 08:01-0500 Blood Pressure Location Dina Lue [facility] 01-04-2023 08:01-0500 Diastolic blood pressure 82 mm[Hg] Dina Lue [facility] 01-04-2023 08:01-0500 Heart rate 71 /min Dina Lue [facility] 01-04-2023 08:01-0500 Systolic blood pressure 124 mm[Hg] Dina Lue [facility] 10-26-2022 10:26-0500 Blood Pressure Location AI RUY [facility] 10-26-2022 10:26-0500 Diastolic blood pressure 84 mm[Hg] AI RUY [facility] 10-26-2022 10:26-0500 Heart rate 65 /min AI RUY [facility] 10-26-2022 10:26-0500 Respiratory rate 16 /min AI RUY [facility] 10-26-2022 10:26-0500 Systolic blood pressure 123 mm[Hg] AI RUY [facility] 10-19-2022 08:01-0500 Blood Pressure Location Dina Lue [facility] 10-19-2022 08:01-0500 Diastolic blood pressure 64 mm[Hg] Dina Lue [facility] 10-19-2022 08:01-0500 Heart rate 66 /min Dina Lue [facility] 10-19-2022 08:01-0500 Systolic blood pressure 145 mm[Hg] Dina Lue [facility] 10-12-2022 08:11-0500 Blood Pressure Location Dina Lue [facility] 10-12-2022 08:11-0500 Diastolic blood pressure 68 mm[Hg] Dina Lue [facility] 10-12-2022 08:11-0500 Heart rate 74 /min Dian Lue [facility] 10-12-2022 08:11-0500 Respiratory rate 16 /min Dina Lue [facility] 10-12-2022 08:11-0500 Systolic blood pressure 132 mm[Hg] Dina Lue [facility] 07-06-2022 10:28-0400 Blood Pressure Location Dina Lue [facility] 07-06-2022 10:28-0400 Diastolic blood pressure 62 mm[Hg] Dina Lue [facility] 07-06-2022 10:28-0400 Heart rate 74 /min Dina Lue [facility] 07-06-2022 10:28-0400 Respiratory rate 16 /min Dina Lue [facility] 07-06-2022 10:28-0400 Systolic blood pressure 98 mm[Hg] Dina Lue [facility] 03-02-2022 09:27-0400 Blood Pressure Location AI RUY [facility] 03-02-2022 09:27-0400 Diastolic blood pressure 66 mm[Hg] AI RUY [facility] 03-02-2022 09:27-0400 Heart rate 64 /min AI RUY [facility] 03-02-2022 09:27-0400 Systolic blood pressure 137 mm[Hg] AI RUY [facility] 02-09-2022 08:17-0400 Blood Pressure Location Dina Lue [facility] 02-09-2022 08:17-0400 Diastolic blood pressure 64 mm[Hg] Dina Lue [facility] 02-09-2022 08:17-0400 Heart rate 60 /min [facility]-09-2022 08:17-0400 Respiratory rate 16 /min [facility] 02-09-2022 08:17-0400 Systolic blood pressure 133 mm[Hg] Dina Lue [facility] 02-02-2022 08:03-0400 Blood Pressure Location [facility] 02-02-2022 08:03-0400 Diastolic blood pressure 100 mm[Hg] [facility] 02-02-2022 08:03-0400 Heart rate 72 /min [facility] 02-02-2022 08:03-0400 Systolic blood pressure 144 mm[Hg] [facility]ue [facility] 01-26-2022 08:18-0400 Blood Pressure Location [facility]ue [facility] 01-26-2022 08:18-0400 Diastolic blood pressure 75 mm[Hg] [facility] 01-26-2022 08:18-0400 Heart rate 56 /min Dina Lue [facility] 01-26-2022 08:18-0400 Systolic blood pressure 128 mm[Hg] Dina Cobb [facility] Encounters Encounter Date Encounter Type Care Provider Facility Start: 07-23-2025 ambulatory Dina Cobb Facility:[facility] Start: 05-29-2025 End: 05-29-2025 Bamboo flowsheet Bayron Singh MD Work Phone: [facility] Start: 05-29-2025 End: 05-29-2025 Bamboo flowsheet Bayron Singh MD Work Phone: [facility] Start: 05-29-2025 End: 05-29-2025 Clinisync Result Encounter Bayron Singh MD Work Phone: [facility] External Department Unsolicited Start: 05-29-2025 End: 05-29-2025 Patient encounter procedure Bayron Singh MD Work Phone: [facility] Healthcare Work Phone: Start: 05-29-2025 End: 05-29-2025 Postop follow up visit related to original px Bayron Singh MD Work Phone: [facility] Comment on above: Medicare annual well ness visit, subsequent (Primary Dx); Dyslipidemia ; Essential hypertension ; Prediabetes; Encounter for long-term current use of medication; Class 3 severe obesity due to excess calories with serious comorbidity and body mass index (BMI) of 40.0 to 44.9 in adult ([facility]) Start: 05-29-2025 End: 05-29-2025 ambulatory BAYRON SINGH Not Available Start: 04-16-2025 End: 04-16-2025 Refill Bayron Singh MD Work Phone: [facility] Comment on above: Class 3 severe obesi ty due to excess calories with serious comorbidity and body mass index (BMI) of 45.0 to 49.9 in adult ([facility]) Start: 03-19-2025 End: 03-19-2025 Garyboo flowsheet Bayron Singh MD Work Phone: [facility] Start: 03-19-2025 End: 03-19-2025 Bamboo flowsheet Bayron Singh MD Work Phone: [facility] Start: 03-19-2025 End: 03-19-2025 Office outpatient visit 15 minutes Bayron Singh MD Work Phone: [facility] Comment on above: Essential hypertensi on (CMS/[facility]) (Primary Dx); Class 3 severe obesity due to excess calories with serious comorbidity and body mass index (BMI) of 45.0 to 49.9 in adult Start: 03-19-2025 End: 03-19-2025 ambulatory BAYRON SINGH Not Available Start: 03-11-2025 End: 03-11-2025 Refill Bayron Singh MD Work Phone: [facility] Comment on above: Class 3 severe obesi ty due to excess calories with serious comorbidity and body mass index (BMI) of 45.0 to 49.9 in adult Start: 01-29-2025 End: 01-29-2025 Refill Bayron Singh MD Work Phone: [facility] Comment on above: Bilateral edema of l ower extremity; Class 3 severe obesity due to excess calories with serious comorbidity and body mass index (BMI) of 45.0 to 49.9 in adult Start: 01-27-2025 End: 01-28-2025 ambulatory Dina Cobb Facility:[facility] Start: 01-27-2025 End: 01-28-2025 Patient encounter procedure Dina Cobb [facility] Start: 01-17-2025 End: 01-17-2025 ambulatory BAYRON SINGH Not Available Start: 01-13-2025 End: 01-13-2025 ambulatory Dina Cobb Facility:[facility] Start: 01-13-2025 End: 01-13-2025 Patient encounter procedure Dina SneedArthur Reza [facility] Start: 12-18-2024 End: 12-18-2024 Bamboo flowsheet Bayron Singh MD Work Phone: [facility] Start: 12-18-2024 End: 12-18-2024 Bamboo flowsheet Bayron Singh MD Work Phone: [facility] Start: 12-18-2024 End: 12-18-2024 Office outpatient visit 15 minutes Bayron Singh MD Work Phone: [facility] Comment on above: Essential hypertensi on (CMS/HCC) (Primary Dx); Class 3 severe obesity due to excess calories with serious comorbidity and body mass index (BMI) of 45.0 to 49.9 in adult (CMS/HCC); Obstructive sleep apnea syndrome; Prediabetes Start: 12-18-2024 End: 12-18-2024 ambulatory BAYRON SINGH Not Available Start: 12-09-2024 End: 12-09-2024 Clinisync Result Encounter Bayron Singh MD Work Phone: [facility] External Department Unsolicited Start: 12-09-2024 End: 12-09-2024 Clinisync Result Encounter Bayron Singh MD Work Phone: [facility] External Department Unsolicited Start: 12-04-2024 End: 12-04-2024 Clinisync Result Encounter Bayron Singh MD Work Phone: [facility] External Department Unsolicited Start: 12-04-2024 End: 12-04-2024 Clinisync Result Encounter Bayron Singh MD Work Phone: [facility] External Department Unsolicited Start: 11-26-2024 End: 11-26-2024 Bamboo flowsheet Bayron Singh MD Work Phone: [facility] Start: 11-26-2024 End: 11-26-2024 Bamboo flowsheet Bayron Singh MD Work Phone: [facility] Start: 11-26-2024 End: 11-26-2024 Office outpatient visit 25 minutes Bayron Singh MD Work Phone: [facility] Comment on above: Essential hypertensi on (CMS/HCC) [...] Department Unsolicited Start: 10-16-2024 End: 10-16-2024 ambulatory [facility] Start: 10-11-2024 End: 10-11-2024 Refill Bayron Singh MD Work Phone: [facility] Comment on above: Primary insomnia Start: 10-03-2024 End: 10-03-2024 Refill Bayron Singh MD Work Phone: [facility] Comment on above: Primary insomnia (Pr imary Dx) Start: 08-28-2024 End: 08-28-2024 Patient encounter procedure Myrna Cordova DO Work Phone: [facility] Comment on above: Screen for colon can cer (Primary Dx); Personal history of colon polyps, unspecified Start: 08-28-2024 End: 08-28-2024 ambulatory MYRNA CORDOVA Not Available Start: 08-12-2024 End: 08-12-2024 Clinisync Result Encounter Generic External Data Provider [facility] External Department Unsolicited Start: 08-12-2024 End: 08-12-2024 Clinisync Result Encounter Generic External Data Provider [facility] External Department Unsolicited Start: 08-12-2024 End: 08-12-2024 [facility] Start: 07-10-2024 End: 07-10-2024 ambulatory [facility] Start: 07-03-2024 End: 07-03-2024 ambulatory Jeff Booth Facility:[facility] Start: 07-03-2024 End: 07-03-2024 Patient encounter procedure Jeff Emmy [facility] Start: 05-21-2024 Patient encounter procedure Generic Provider [facility] Start: 04-10-2024 End: 04-10-2024 ambulatory [facility] Start: 03-19-2024 End: 03-19-2024 [facility] Start: 02-14-2024 End: 02-14-2024 ambulatory MD Bayron Singh Work Phone: [facility] Work Phone: Start: 02-14-2024 End: 02-14-2024 Departed Referred MD Bayron Singh Work Phone: [facility] Start: 02-13-2024 End: 02-13-2024 ambulatory Jeffred Cordova Facility:[facility] Start: 02-09-2024 End: 02-09-2024 ambulatory [facility] Start: 02-09-2024 End: 02-09-2024 Encounter for preprocedural cardiovascular examination [facility] Start: 01-10-2024 ambulatory [facility] Start: 01-02-2024 End: 01-02-2024 ambulatory [facility] Start: 04-26-2023 End: 04-26-2023 Patient encounter procedure Jeff Booth [facility] Start: 03-08-2023 Encounter for genera l adult medical examination without abnormal findings DR BAYRON SINGH [facility] Start: 03-06-2023 End: 03-07-[address] BAYRON SINGH Facility:[facility] Start: 03-02-2023 End: 03-03-[address] BAYRON SINGH Facility:[facility] Start: 03-02-2023 End: 03-03-2023 Encounter for general adult medical examination without abnormal findings DR BAYRON SINGH Facility:[facility] Start: 01-04-2023 End: 01-04-2023 Patient encounter procedure Dina Cobb [facility] Start: 12-28-2022 End: 12-28-2022 ambulatory DINA LOZADAE . Facility:[facility] Start: 12-25-2022 Encounter for preprocedural cardiovascular examination DINA COBB . [facility] Start: 12-21-2022 End: 12-22-2022 ambulatory DINA M LUE . Facility:[facility] Start: 12-21-2022 End: 12-22-2022 Encounter for preprocedural cardiovascular examination DINA M NEVILLEE . Facility:[facility] Start: 12-14-2022 End: 12-14-2022 Lab Drop off [facility] Start: 12-14-2022 End: 12-14-2022 Patient encounter procedure Dina MArthur Lue [facility] Start: 12-07-2022 End: 12-07-2022 ambulatory DINA M LUE . Facility:[facility] Start: 11-23-2022 End: 11-24-[address] BAYRON SINGH Facility:[facility] Start: 11-05-2022 End: 11-05-[address] BAYRON SINGH Facility:[facility] Start: 10-26-2022 End: 10-26-2022 Patient encounter procedure AI REDMOND [email or web address] Start: 10-19-2022 End: 10-19-2022 Patient encounter procedure Dina Cobb [facility] Start: 10-12-2022 End: 10-12-2022 Patient encounter procedure Dina Lozadae [facility] Start: 09-02-2022 End: 09-03-[address] MICAELA DE . Facility:[facility] Start: 08-10-2022 End: 08-10-2022 ambulatory DINA M LUE . Facility:[facility] Start: 07-22-2022 End: 07-23-2022 ambulatory DINA M LUE . Facility:[facility] Start: 07-06-2022 End: 07-06-2022 Patient encounter procedure Dina Sneed. Nevillee [email or web address] Start: 07-01-2022 End: 07-02-2022 ambulatory DINA Nedra LUE . Facility:[facility] Start: 06-29-2022 End: 06-29-2022 Patient encounter procedure Dina M. Lue [email or web address] Start: 06-22-2022 End: 06-22-2022 Patient encounter procedure Dina M. Lue [facility] Start: 05-26-2022 End: 05-27-[address] BAYRON SINGH Facility:[facility] Start: 05-18-2022 End: 05-18-2022 Patient encounter procedure Dina M. Lue [facility] Start: 05-11-2022 End: 05-11-2022 ambulatory DINA LOZADAE . Facility:[facility] Start: 05-09-2022 Encounter for preprocedural laboratory examination DINA Sneed LUE . [facility] Start: 05-04-2022 End: 05-05-2022 ambulatory DINA Sneed LUE . Facility:[facility] Start: 05-04-2022 End: 05-05-2022 Encounter for preprocedural laboratory examination DINA Sneed LUE . Facility:[facility] Start: 04-27-2022 End: 04-27-2022 ambulatory DINA Sneed LUE . Facility:[facility] Start: 04-11-2022 End: 04-12-[address] BAYRON SINGH Facility:[facility] Start: 03-28-2022 End: 03-31-[address] BAYRON SINGH Facility:[facility] Start: 03-25-2022 End: 03-25-2022 Lab Drop off Loco MARRERO [facility] Start: 03-25-2022 End: 03-25-2022 Patient encounter procedure Loco MARRERO [facility] Start: 03-02-2022 End: 03-02-2022 Patient encounter procedure AI REDMOND [facility] Start: 02-09-2022 End: 02-09-2022 Patient encounter procedure Dina M. Lue [facility] Start: 02-02-2022 End: 02-02-2022 Patient encounter procedure Dina M. Lue [facility] Start: 01-26-2022 End: 01-26-2022 Lab Drop off Dina Cobb [facility] Start: 01-26-2022 End: 01-26-2022 Patient encounter procedure Dina Cobb [facility] Start: 06-11-2020 End: 06-12-2020 Patient encounter procedure PROVIDER UNKNOWN Facility:[facility] Procedures Date Procedure Procedure Detail Performing Clinician Start: 05-29-2025 ALL CBC WITH AUTO DIFF Bayron Singh MD Work Phone: Start: 12-09-2024 CT ABDOMEN WO/W CON Dilma Singh MD Work Phone: Start: 12-04-2024 US RIGHT UPPER QUADRANT Bayron Singh MD Work Phone: Start: 11-20-2024 ALL CBC WITH AUTO DIFF Generic External Data Provider Start: 09-17-2024 Colonoscopy Bayron regalado MD Work Phone: Start: 08-12-2024 ALL PRO BNP Generic Ex ternal Data Provider Start: 03-19-2024 Colonoscopy Generic Pr ovider Start: 03-13-2023 Cystoscopy and biops y of bladder Jeff Booth Comment on above: BLUE LIGHT CYSTOSCOP Y Start: 12-28-2022 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 Dina Reza Comment on above: random bladder biops ies, BL ureteral washing Start: 12-07-2022 Cystoscopy Dina Lujavon Start: 12-22-2021 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 Dina Nevillee Start: 07-26-2021 Transurethral resect ion of bladder neoplasm Dina Cobb Start: 07-14-2021 Cystoscope, device ( physical object) Dinahumble Cobb Bilateral replacemen t of knee joints Dina Cobb Breast surgery (qual ifier value) Dina Cobb Cholecystectomy Dina Cobb H/O: hysterectomy Dina Cobb Tonsillectomy Dina Cobb Plan of Treatment Date Care Activity Detail Author Start: 09-17-2034 Screening for malign ant neoplasm of colon [facility] Start: 03-19-2034 Screening for malign ant neoplasm of colon [facility] Start: 01-07-2027 Screening for malign ant neoplasm of colon FIT-DNA [facility] Start: 09-05-2025 End: 09-05-2025 Patient encounter procedure 09/05/2025 11:00 AM EST Office Visit [facility] [address] [place] [address] Bayron Singh MD [address] [place] [address] [facility] Start: 06-30-2025 Influenza vaccination Influenza Vacc ine (#1) [facility] Start: 05-29-2025 End: 05-29-2026 Basic metabolic 1998 panel - Serum or Plasma Basic metabolic panel Lab Routine Essential hypertension Expected: 05/29/2025 (Approximate), Expires: 05/29/2026 [facility] Comment on above: Expected: 05/29/2025 (Approximate), Expires: 05/29/2026 Start: 05-29-2025 End: 05-29-2026 CBC W Auto Differential panel - Blood CBC and differential Lab Routine Encounter for long-term current use of medication Expected: 05/29/2025 (Approximate), Expires: 05/29/2026 [facility] Comment on above: Expected: 05/29/2025 (Approximate), Expires: 05/29/2026 Start: 05-29-2025 End: 05-29-2026 Hemoglobin A1c/Hemoglobin.total in Blood Hemoglobin A1c Lab Routine Prediabetes Expected: 05/29/2025 (Approximate), Expires: 05/29/2026 [facility] Work Phone: Comment on above: Expected: 05/29/2025 (Approximate), Expires: 05/29/2026 Start: 05-29-2025 End: 05-29-2026 Hepatic function 2000 panel - Serum or Plasma Hepatic function panel Lab Routine Encounter for long-term current use of medication Expected: 05/29/2025 (Approximate), Expires: 05/29/2026 [facility] Comment on above: Expected: 05/29/2025 (Approximate), Expires: 05/29/2026 Start: 05-29-2025 End: 05-29-2026 Lipid 1996 panel - Serum or Plasma Lipid panel Lab Routine Dyslipidemia Expected: 05/29/2025 (Approximate), Expires: 05/29/2026 [facility] Comment on above: Expected: 05/29/2025 (Approximate), Expires: 05/29/2026 Start: 05-29-2025 End: 05-29-2026 Thyrotropin [Units/volume] in Serum or Plasma TSH Lab Routine Class 3 severe obesity due to excess calories with serious comorbidity and body mass index (BMI) of 40.0 to 44.9 in adult ([facility]) Expected: 05/29/2025 (Approximate), Expires: 05/29/2026 [facility] Comment on above: Expected: 05/29/2025 (Approximate), Expires: 05/29/2026 Start: 05-29-2025 End: 05-29-2025 Patient encounter procedure 05/29/2025 11:00 AM EDT Office Visit [facility] [address] [place] [address] Bayron Singh MD [address] [place] [address] Arrived [facility] Comment on above: Arrived Start: 05-27-2025 End: 05-27-2025 Patient encounter procedure 05/27/2025 11:00 AM EDT Office Visit [facility] [address] [place] [address] Bayron Singh MD [address] [place] [id number] [facility] Start: 03-19-2025 End: 03-19-2025 Patient encounter procedure [facility] Comment on above: Arrived Start: 01-17-2025 End: 01-17-2025 Patient encounter procedure 01/17/2025 10:00 AM EDT Office Visit [facility] [address] [place] [address] Bayron Singh MD [address] [place] [phone] [facility] Start: 01-15-2025 End: 01-15-2025 Patient encounter procedure 01/15/2025 9:45 AM EDT Office Visit [facility] [address] [place] [address] Bayron Singh MD [address] [place] [phone] [facility] Start: 12-18-2024 End: 12-18-2024 Patient encounter procedure 12/18/2024 9:45 AM EST Office Visit [facility] [address] [place] [address] Bayron Singh MD [address] [place] [phone] Arrived [facility] Comment on above: Arrived Start: 11-26-2024 End: 11-26-2025 US Abdomen limited US RUQ Imaging Routine Abnormal liver function Expected: 11/26/2024, Expires: 11/26/2025 [facility] Work Phone: Comment on above: Expected: 11/26/2024 , Expires: 11/26/2025 Start: 11-26-2024 End: 11-26-2024 [facility] Comment on above: Arrived Start: 11-21-2024 End: 11-21-2024 Patient encounter procedure 11/21/2024 11:00 AM EST [facility] [address] [place] [address] Bayron Singh MD [address] [place] [address] [facility] Start: 11-05-2024 End: 11-05-2024 Patient encounter procedure 11/05/2024 11:00 AM EST Consult [facility] [address] [place] [address] Tess Hernandez MD [address] [place] [address] [facility] Start: 06-30-2024 Influenza vaccination Influenza Vacc ine (#1) [facility] Start: 12-17-2022 Pneumococcal Vaccine : 65+ Years (2 of 2 - PCV) Pneumococcal Vaccine: 65+ Years (2 of 2 - PCV) [facility] Start: 1960 Screening for malign ant neoplasm of colon [facility] Healthcare Immunizations Immunization Date Immunization Notes Care Provider Fa cili 08-01-2024 influenza virus vacc ine, unspecified formulation Bayron Singh MD Work Phone: [facility] 10-26-2022 bacillus calmette-gu nestor vaccine AI REDMOND [facility] 10-19-2022 bacillus calmette-gu nestor vaccine Dina Lue [facility] 10-12-2022 bacillus calmette-gu nestor vaccine Dina Lue [facility] 09-02-2022 SARS-CoV-2 (COVID-19 ) [id number] vaccine Dina Lue [facility] 08-04-2022 influenza virus vacc ine, unspecified formulation Dina Lue [facility] 07-26-2022 bacillus calmette-gu nestor vaccine Dina Lue [facility] 07-06-2022 bacillus calmette-gu nestor vaccine Dina Lue [facility] 06-29-2022 bacillus calmette-gu nestor vaccine Dina Lue [facility] 06-22-2022 bacillus calmette-gu nestor vaccine Dina Lue [facility] 03-02-2022 bacillus calmette-gu nestor vaccine AI RUY [facility] 02-23-2022 bacillus calmette-gu nestor vaccine AI RUY [facility] 02-16-2022 bacillus calmette-gu nestor vaccine AI RUY [facility] 02-09-2022 bacillus calmette-gu nestor vaccine Dina Lue [facility] 02-02-2022 bacillus calmette-gu nestor vaccine Dina Lue [facility] 01-26-2022 bacillus calmette-gu nestor vaccine Dina Lue [facility] 12-17-2021 pneumococcal polysaccharide vaccine, 23 valent Dina Lue [facility] 10-27-2021 bacillus calmette-gu nestor vaccine Dina Lue [facility] 10-19-2021 bacillus calmette-gu nestor vaccine Dina Lue [facility] 10-13-2021 bacillus calmette-gu nestor vaccine Dina Lue [facility] 10-06-2021 bacillus calmette-gu nestor vaccine Dina Lue [facility] 09-29-2021 bacillus calmette-gu nestor vaccine Dina Lue [facility] 09-22-2021 bacillus calmette-gu nestor vaccine Dina Lue [facility] 08-20-2021 SARS-CoV-2 (COVID-19 ) [id number] vaccine Dina Lue [facility] 08-19-2021 influenza virus vacc ine, unspecified formulation AI REDMOND [facility] 07-30-2021 influenza virus vacc ine, unspecified formulation Dina Lujavon [facility] 11-26-2020 SARS-CoV-2 (COVID-19 ) mRNA-1273 vaccine Dina Lue [facility] 10-28-2020 SARS-CoV-2 (COVID-19 ) mRNA-1273 vaccine Dina Lue [facility] 07-18-2018 influenza virus vacc ine, unspecified formulation Dina Lujavon [facility] 07-30-2015 pneumococcal polysaccharide vaccine, 23 valent Dina Cobb [facility] Payers Date Payer Category Payer Unknown [id number] 2024 Medicare [id number] 2024 Private Health Insurance [id number]. [id number] 2024 Medicare [id number] 2024 Unknown [id number] 2024 Self-pay [id number] 2022 Blue [employer] Blue [employer] BCBS [id number]. [id number] 2019 Unknown [id number] 1959 Self-pay [id number] 1959 Unknown [id number] 1958 Unknown [id number] 2.16.840.1.500504.3.579.2. 647 1958 Unknown [id number] 2.840.1.921249.3.579.2. 593 1958 Unknown [id number] 2.16.840.1.170993.3.579.2. 593 1958 Unknown [id number] 2.16.840.1.780777.3.579.2. 593 1958 Unknown [id number] 2.16840.1.900886.3.579.2. 593 1958 Unknown [id number] 2.16840.1.250300.3.579.2. 593 1958 Unknown [id number] 2.16.840.1.126053.3.579.2. 593 1958 Unknown [id number] 2.16.840.1.130867.3.579.2. 593 1958 Unknown [id number] 2.16840.1.406621.3.579.2. 593 1958 Unknown [id number] 2.16.840.1.737078.3.579.2. 593 1958 Unknown [id number] 2.16.840.1.198838.3.579.2. 593 1958 Unknown [id number] 2.16.840.1.797868.3.579.2. 593 1958 Unknown [id number] 2.16.840.1.270041.3.579.2. 593 1958 Unknown [id number] 2.16.840.1.238881.3.579.2. 593 1958 Unknown [id number] 2.16.840.1.388327.3.579.2. 593 1958 Unknown [id number] 2.16.840.1.761464.3.579.2. 593 1958 Unknown [id number] 2.16.840.1.142027.3.579.2. 593 1958 Unknown [id number] 2.16840.1.797952.3.579.2. 727 1958 Unknown [id number] 2.16.840.1.235246.3.579.2. 727 1958 Unknown [id number] 2.16.840.1.564932.3.579.2. 727 1958 Unknown [id number] 2.16.840.1.085426.3.579.2. 727 1958 Unknown [id number] 2.16.840.1.498656.3.579.2. 727 1958 Unknown [id number] 2.16.840.1.711183.3.579.2. 1259 1958 Unknown [id number] 2.16.840.1.360175.3.579.2. 1259 1958 Unknown [id number] 2.16.840.1.265027.3.579.2. 1259 1958 Unknown [id number] 2.16.840.1.483463.3.579.2. 1259 1958 Unknown [id number] 2.16.840.1.738512.3.579.2. 1259 1958 Unknown [id number] 2.16.840.1.253963.3.579.2. 1259 Private Health Insurance [id number] Unknown [id number] 2.16.840.1.501411.3.579.2. 593 Unknown [id number] 2.16.840.1.591098.3.579.2. 531 Unknown [id number] Social History Date Type Detail Facility Start: 01-26-2022 End: 08-28-2024 Tobacco smoking status Ex-smoker (finding) [facility] Tobacco smoking status Never [facility] Start: 11-08-2023 End: 11-25-2024 Sex Assigned At Female [facility] Start: 1960 Sex Assigned At Female [facility] End: 03-18-1979 History of tobacco use Current smoker [facility] End: 03-18-1979 History of tobacco use Cigarette Smoker [facility] Start: 08-23-2023 End: 08-28-2024 Tobacco use and exposure Smokeless tobacco non-user [facility] Start: 05-21-2024 End: 05-29-2025 Alcoholic beverage intake Ex-drinker (finding) [facility] [...] to any clubs or organizations such as hindu groups, unions, fraternal or athletic groups, or [...] and heating Not very hard [facility] Sexual Orientation [facility] Start: 02-10-2010 Sex Female (finding) [facility] Functional Status Date Assessment Result Facility 05-29-2025 Patient Health Quest ionnaire 2 item (PHQ-2) [Reported] [facility] 01-13-2025 Functional Status N/A [facility] 01-04-2023 Functional Status N/A [facility] 10-26-2022 Functional Status N/A [facility] 10-19-2022 Functional Status N/A [facility] 10-12-2022 Functional Status N/A [facility] 07-06-2022 Functional Status N/A [facility] 06-22-2022 Functional Status N/A [facility] 05-18-2022 Functional Status N/A [facility] Clinical Notes 01-26-2022 to 05-29-2025 Bayron Singh MD - 05/29/2025 11:45 AM Azul Singh MD - 05/29/2025 11:00 AM EDTTelephone Encounter - Bayron Singh MD - 04/16/2025 3:10 PM Azul Singh MD - 03/19/2025 11:23 AM EDT Note Date & Type Note Facility 05-29-2025 History of Presen t illness Narrative Associated Problem(s): Medicare annual wellness visit, subsequent Due for labs. Discussed proper diet and regular aerobic exercise. Need aerobic exercise 5-6 days a week for 30 minutes at a time. Smaller portions and limit total calories. Colonoscopy every 10 years. Tetanus every 10 years. Advised not to smoke. Subjective Patient ID: Daniella Bejarano is a [...] (BMI) of 40.0 to 44.9 in adult ([facility]) Relevant Medications phentermine (Adipex-P) 37.5 MG tablet [...] Hepatic function panel documented in this encounter [facility] 04-16-2025 Telephone encounter Note Form atting of this note might be different from the original. [facility] 04-16-2025 Miscellaneous Notes Formattin g of this note might be different from the original. documented in this encounter [facility] 03-19-2025 History of Presen t illness Narrative Associated Problem(s): Essential hypertension ([facility]/HCC) BP controlled and monitor PRN. Associated Problem(s): Class 3 severe obesity due to excess calories with serious comorbidity and body mass index (BMI) of 45.0 to 49.9 in adult Patient doing well with adipex and lost [...] develop new or worsening symptoms contact office. Images from the original note were not included. Subjective Patient ID: Daniella Bejarano is a 64 y.o. female who presents for Follow-up (2m). Follow up HTN and weight. Patient feels well today. Checking BP PRN and typically controlled. BP normal today. Taking medication daily and tolerating without side effects. Weight down 9 pounds since last visit and 21 pounds since October. Tolerating medication without side effects except mild dry mouth. Not as hungry with medication. Smaller portions and not snacking. Increased fruits and vegetables. Tries to limit total daily calories. Increased activity and walking almost daily. Review of Systems Respiratory: Negative for cough, [...] List Items Addressed This Visit Essential hypertension (CMS/HCC) - Primary BP controlled and monitor PRN. Class 3 severe obesity due to excess calories with serious comorbidity and body mass index (BMI) of 45.0 to 49.9 in adult Patient doing well with adipex and lost [...] develop new or worsening symptoms contact office. documented in this encounter [facility] 01-29-2025 Telephone encounter Note Form atting of this note might be different from the original. MEDICATION SENT TO [facility] 01-29-2025 Miscellaneous Notes Formattin g of this note might be different from the original. MEDICATION SENT TO [facility] documented in this encounter [facility] 01-13-2025 Evaluation + Plan note Extrac minoo from: Title:EU- Clinic Note VIOLETTA Author:Dina Cobb MD Date:01/13/25 Impression and Plan Assessment and Plan: Diagnosis: History of bladder cancer ([id number]-QT Z85.51, Discharge, Medical), OAB (overactive bladder) (GRD40-HQ N32.81, Working, Medical). 64-year-old female former smoker with high risk, HG T1 NMIBC, BCG unresponsive CIS initially diagnosed 07/26/2021 s/p induction BCG, recurrence of HG Ta s/p 2nd induction BCG and maintenance x 2. 1. History of bladder cancer 06/2021 CTU: left posterior filling defect in [...] completed 07/06/22 -2nd 6m BCG completed 10/26/22 S/p Cysto, random bladder bx with fulguration, TURBT (< 2 cm), BL RPG 12/28/22. Path report - right & left ureteral washings are both hypocellular specimens, insufficiency for diagnosis. Right posterior bladder wall minute focus of marked urothelial atypia, at least urothelial dysplasia, bordering carcinoma in situ. Left lateral bladder wall- neg, patchy chronic inflammation. Bladder dome, Right lateral bladder wall - neg Referred to Dr. Zelaya at [facility] given limitations here for blue light cystoscopy to further evaluate and resect possible CIS. Reviewed external [facility] Dr. 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 Prior resection sites at posterior, right lateral and left lateral wall noted. 09/2024- cysto with Dr. Zelaya Plan for continued maintenance intravesical chemo CTU due 12/2024, Cysto q3m until 12/2024, then q6m x 3 yrs 01/13/25: Cysto today -No evidence of recurrence today. -Patient to follow-up with Dr. Zelaya regarding continued maintenance intravesical gem doce x 3 years (his notes state to continue in one part, but final plan did not indicate) -Follow-up urine cytology from today -CT urogram to be done at [facility], call with results -Surveillance cystoscopy and cytology in 6 months.. 2. OAB (overactive bladder) (N32.81: Overactive bladder) Continues taking VESIcare 10mg daily. Improvement but still with sx patient doing well on Gemtesa and Vesicare. Continue without changes. 3. History of UTI (Z87.440: Personal history of urinary (tract) infections) Denies infections. No urine sample provided today. Hx of UTIs and asymptomatic bacteruria with prior BCGs, no sequelae from treatments 4. Vaginal atrophy (N95.2: Postmenopausal atrophic vaginitis) Continue Estrace cream. Future Appointments Appointment Date:07/18/2025 09:00:00 AM Scheduled Provider: Location:[facility] Appointment Type:Urology CALL PAT FT Appointment Date:07/21/2025 10:45:00 AM Scheduled Provider: Location:[facility] Appointment Type:Urology FT Diagnostic Tests Pending * Urine Cytology ([facility]) 01/13/25 Future Scheduled Tests Radiology* CT Urogram 01/13/25 [facility] 03-17-2025 Hospital Discharge instructions Patient Education 01/13/2025 11:25:15 EU - Cystoscopy Discharge Instructions (CUSTOM) Cystoscopy Voiding after the procedure: there may be some pain, burning, urgency, frequency and blood tinged urine following the procedure. These symptoms usually resolve within 2-5 days. Drink the amount of fluid it takes to keep the urine pink to yellow or clear in color. Drinking enough water and fluids will help to ease any discomfort after your procedure. If you are having problems that seem out of the ordinary, please call. If unable to contact your physician and you feel it is an emergency, go to the nearest emergency room or call 911 Diet you may resume your normal diet. Activity you may resume your normal activities Call if you have a fever over 100 degrees. Follow Up Care 10/16/2024 11:17:59 With:Dina Cobb Address:Unknown When: Unknown Comments:Office to schedule follow up: CTU now at [facility]. Surveillance cystoscopy and cytology in 6 months [facility] 03-17-2025 NoteProgress Note-Physician Patient: DANIELLA BEJARANO Age: 64 years Sex: Female : 1960 Associated Diagnoses: None Author: Reza JAMES, Dina Oconnell Health Status Allergies: Allergic Reactions (Selected) Severity Not Documented Percocet- Headache., Allergies (1) Active Severity Reaction Percocet Headache Current medications: (Selected) Prescriptions Prescribed Estrace 0.1 mg/g Cream: See Instructions, 42.5 gm, Refill(s) 2, Apply a pea size amount around the urethra and vagina, 3x a wk for 4 wks, then 2x a week afterwards., [facility]/pharmacy #[id number], 163, cm, 06/22/22 8:33:00 EDT, Height/Length Dosing, 115, kg, 06/22/22 8:33:00 EDT, Weigh... Gemtesa 75 mg oral tablet: 75 mg = 1 tab(s), Oral, Daily, # 30 tab(s), Refills(s) 3, Pharmacy: [facility]/pharmacy #[id number], 163, cm, 01/04/23 8:04:00 EST, Height/Length Dosing, 115, kg, 01/04/23 8:04:00 EST, Weight Dosing Vesicare 10 mg Tab: 10 mg = 1 tab(s), Oral, Daily, # 90 tab(s), Refills(s) 3, Pharmacy: [facility]/pharmacy #[id number], 163, cm, 05/18/22 10:12:00 EDT, Height/Length Dosing, 115, kg, 05/18/22 10:12:00 EDT, Weight Dosing Documented Medications Documented Benicar 40 mg Tab: mg tab(s), Oral, Daily, Refills(s) 0 Lasix 20 mg Tab: mg tab(s), Oral, Daily, Refills(s) 0 Protonix 40 mg Tab-DR: mg tab(s), Oral, BID, Refills(s) 0 Vitamin D: International_Unit, Oral, qWeek, Refills(s) 0 aspirin 81 mg Oral EC Tab: mg tab(s), Oral, Daily, Refills(s) 0 multivitamin with minerals: 1 tab, Oral, Daily, Refill(s) 0 nabumetone 750 mg Tab: 750 mg, Oral, Daily, Refills(s) 0 potassium chloride: 20 mg, Oral, Daily, Refills(s) 0 Impression and Plan Assessment and Plan: Diagnosis: History of bladder cancer (MTC32-EX Z85.51, Discharge, Medical), OAB (overactive bladder) (ESI38-HB N32.81, Working, Medical). 64-year-old female former smoker with high risk, HG T1 NMIBC, BCG unresponsive CIS initially diagnosed 07/26/2021 s/p induction BCG, recurrence of HG Ta s/p 2nd induction BCG and maintenance x 2. 1. History of bladder cancer 06/2021 CTU: left posterior filling defect in [...] completed 07/06/22 -2nd 6m BCG completed 10/26/22 S/p Cysto, random bladder bx with fulguration, TURBT (< 2 cm), BL RPG 12/28/22. Path report - right & left ureteral washings are both hypocellular specimens, insufficiency fordiagnosis. Right posterior bladder wall minute focus of marked urothelial atypia, at least urothelial dysplasia, bordering carcinoma in situ. Left lateral bladder wall- neg, patchy chronic inflammation. Bladder dome, Right lateral bladder wall - neg Referred to Dr. Zelaya at [facility] given limitations here for blue light cystoscopy to further evaluateand resect possible CIS. Reviewed external [facility] Dr. Zelaya records: BCG unresponsive CIS [facility] review of our path TURBT 12/28/22 confirmed very minute focus CIS from right posterior wall 03/13/23 @ [facility] BL RPG, TURBT - neg 04/28/23-06/05/23 - induction intravesical gemcitabine/docetaxel weekly x 6 wks (1000mg gemcitabine in60 ml sterile water, followed by 37.5 mg docetaxel in 53.75 ml NS) 07/07/23- monthly maintenance intravesical gem/doce x 12, completed 05/08/24 07/10/24 Cysto/cytology -neg. Prior resection sites at posterior, right lateral and left lateral wall noted. 09/2024- cysto with Dr. Zelaya Plan for continued maintenance intravesical chemo CTU due 12/2024, Cysto q3m until 12/2024, then q6m x 3 yrs 01/13/25: Cysto today -No evidence of recurrence today. -Patient to follow-up with Dr. Zelaya regarding continued maintenance intravesical gem doce x 3 years (his notes state to continue in one part, but final plan did not indicate) -Follow-up urine cytology from today -CT urogram to be done at [facility], call with results -Surveillance cystoscopy and cytology in 6 months.. 2. OAB (overactive bladder) (N32.81: Overactive bladder) Continues taking VESIcare 10mg daily. Improvement but still with sx patient doing well on Gemtesa and Vesicare. Continue without changes. 3. History of UTI (Z87.440: Personal history of urinary (tract) infections) Denies infections. No urine sample provided today. Hx of UTIs and asymptomatic bacteruria with (more content not included)...[facility] HospitalComment on above:Result Comment: Electronically Signed By: Reza JAMES, Dnia Oconnell\.br\Date and Time Signed: 01/13/25 12:[id number] Note Patient Education Cystoscopy ??? Voiding after the procedure: there may be some pain, burning, urgency, frequency and blood tinged urine following the procedure. These symptoms usually resolve within 2-5 days. Drink the amount of fluid it takes to keep the urine pink to yellow or clear in color. Drinking enough water and fluids will help to ease any discomfort after your procedure. ??? If you are having problems that seem out of the ordinary, please call. ??? If unable to contact your physician and you feel it is an emergency, go to the nearest emergency room or call 911 ??? Diet ??? you may resume your normal diet. ??? Activity ??? you may resume your normal activities ??? Call if you have a fever over 100 degrees.[facility] 12-18-2024 History of Present illness Narrative* Bayron Singh MD - 12/18/2024 10:21 AM ESTAssociated Problem(s): Essential hypertension ([facility]) BP controlled and monitor PRN. * Bayron Singh MD - 12/18/2024 10:21 AM ESTAssociated Problem(s): Class 3 severe obesity due to excess calories with serious comorbidity and body mass index (BMI) of 45.0 to 49.9 in adult (CMS/HCC) Patient doing well with adipex and lost 6 pounds in first month. Tolerating well with only mild drymouth. Continue with dietary changes and less calories. Need to limit snacking and smaller portions. Continue healthier choices. Need regular aerobic exercise 30 minutes at a time 5-6 days a week. Refill for second month. OARRS reviewed. Continue meds as prescribed. If develop new or worsening sympt oms contact office. * Bayron Singh MD - 12/18/2024 9:45 AM EST Images from the original note were not included. Subjective Patient ID: Daniella Bejarano is a 64 y.o. female who presents for Follow-up (adipex). Follow up HTN and weight. Patient feels well today. Checking BP PRN and typically controlled. BP normal today. Taking medication daily and tolerating without side effects. Started adipex last month and weight down 6 pounds. Tolerating medication without side effects except mild dry mouth. Not as hungry with medication. Smaller portions and not snacking. Increased fruits and vegetables. Tries to limit total daily calories. Increased activity and walking almost daily. Review of Systems Respiratory: Negative for cough, [...] List Items Addressed This Visit Essential hypertension ([facility]) - Primary BP controlled and monitor PRN. Class 3 severe obesity due to excess calories with serious comorbidity and body mass index (BMI) of45.0 to 49.9 in adult (CMS/HCC) Patient doing well with adipex and lost 6 pounds in first month. Tolerating well with only mild drymouth. Continue with dietary changes and less calories. Need to limit snacking and smaller portions. Continue healthier choices. Need regular aerobic exercise 30 minutes at a time 5-6 days a week. Refill for second month. OARRS reviewed. Continue meds as prescribed. If develop new or worsening sympt oms contact office. Relevant Medications Tirzepatide-Weight Management (Zepbound) 2.5 MG/0.5ML solution auto-injector phentermine (Adipex-P) 37.5 MG tablet Obstructive sleep apnea syndrome Relevant Medications Tirzepatide-Weight Management (Zepbound) 2.5 MG/0.5ML solution auto-injector Prediabetes Relevant Medications Tirzepatide-Weight Management (Zepbound) 2.5 MG/0.5ML solution auto-injector documented in this [id number] History of Present illness Narrative* Bayron Singh MD - 11/26/2024 11:24 AM ESTAssociated Problem(s): History of breast cancer Follow with oncology. * Bayron Singh MD - 11/26/2024 11:24 AM ESTAssociated Problem(s): GERD without esophagitis Symptoms controlled with protonix and continue. * Bayron Singh MD - 11/26/2024 11:23 AM ESTAssociated Problem(s): Essential hypertension (CMS/HCC) BP controlled and monitor PRN. * Bayron Singh MD - 11/26/2024 11:23 AM ESTAssociated Problem(s): Class 3 severe obesity due to excess calories with serious comorbidity and body mass index (BMI) of 45.0 to 49.9 in adult (CMS/HCC) Discussed proper diet and regular aerobic exercise. Recommend Weight Watchers and need to limit calories and smaller portions. Need to increase activity and regular aerobic exercise several days a week for 30 minutes at a time. * Bayron Singh MD - 11/26/2024 11:23 AM ESTAssociated Problem(s): Bladder cancer (CMS/HCC) Cancer stable and follow up with urology. * Bayron Singh MD - 11/26/2024 11:23 AM ESTAssociated Problem(s): Bilateral edema of lower extremity Edema controlled with medication and use PRN. Elevate legs PRN. * Bayron Singh MD - 11/26/2024 11:23 AM ESTAssociated Problem(s): Abnormal liver function Recent LFTs elevated and check US liver. * Bayron Singh MD - 11/26/2024 10:45 AM EST Images from the original note were not [...] if on feet a lot. Edema improved nikolai and with elevation. GERD controlled with protonix. Denies epigastric pain or burning and not waking up with symptoms. Bladder cancer stable. Following with urology and no cancer on last scope. Will repeat cystoscopy in December. Weight up 5 pounds in past year. Upset not able to lose. Tries to stayactive and rides bike several days a week. [...] serious comorbidity and body mass index (BMI) of45.0 to 49.9 in adult (CMS/HCC) Discussed proper [...] Relevant Orders US RUQ documented in this [id number] NoteSatisfactory for evaluation. Examination of the ThinPrep slide reveals benign urothelial cells, squamous cells and inflammation.[facility] HospitalComment on above:Order Comment: Via cysto bladder washPerformed By: #### [id number] #### [facility] ([facility]) [address] [place], [place] [phone] NotePatient ID: Daniella Bejarano is a 64 y.o. [...] in the procedure room for the entire procedure.[facility]12-18-[facility]24 NoteI PATIENT: Daniella Bejarano DATE OF : 1960 [...] recurrent bladder tumor. Pathology revealed high-grade noninvasive distributor publications, muscularis propria present and uninvolved. - 01/26/2022: [...] diagnosis bilaterally. Therefore she was referred to dc for further management. Ms. Bejarano underwent white [...] by the time she was referred to dc and when she had outside bladder biopsy confirming BCG unresponsive CIS performed on 12/28/2022 and given bladder biopsy I performed on 03/13/2023 revealed no evidence of malignancy, th (more content not included)...[facility]10-30-[facility] History of Present illness Narrative* Myrna Cordova, - 08/28/2024 1:30 PM EDT General Surgery H&P Daniella Bejarano 1960 Daniella Bejarano is a 64 y.o. female presents for Colonoscopy (Pt presents today for a colonoscopy consult. Last colonoscopy was 03/19 at [facility] and she had an EMR at 2 sites in her ascending colon. Herfor follow up colonoscopy by the end of year to make sure she was healing well and no issues at theEMR site. She denies any concerns. Denies abdominal pain. Denies melena or hematochezia. Denies acuna ges in bowel habits. Denies changes in caliber [...] 05/05/2023 Acid reflux Arthritis 04/12/2017 Bladder cancer ([facility]) Cancer of breast, intraductal 06/13/2017 cancer, right breast Chronic venous insufficiency Degenerative joint disease of knee Edema of both lower legs Encounter for screening for osteoporosis 06/13/2017 Equinus contracture of right ankle Former smoker 05/05/2023 Gastroesophageal reflux disease Hard to intubate 2022 Hip pain, left History of UTI 05/05/2023 HTN (hypertension) ([facility]) Insomnia, persistent Obesity 06/05/2020 Obstructive sleep apnea [...] Use: Medium Risk (08/12/2024) Received from [facility] Patient History Smoking Tobacco Use: Former Smokeless [...] risks of procedure which include but not limitedto bleeding, perforation, and risks of anesthesia. Patient understood risks and signed informed consent for the procedure under monitored anesthesia care. Handout for bowel prep provided in clinic. Patient was informed of the need for a ride home from the hospital and the need for someone to be with them for the following 24 hrs post procedure. Thank you, K Paulo Cordova DO documented in this [facility]10-14-2024 NoteUT Cardiology - [facility] Subjective Daniella Bejarano is a 64 [...] and Headache Medications Cu (more content not included)...[facility]09-11-2024 NoteA. Unsatisfactory for evaluation. Scant cellularity due to obscuring lubricant. Examination of the the ThinPrep slide reveals primarily lubricant with rare urothelial cells.[facility] HospitalComment on above: Order Comment: Via cystoPerformed By: #### [id number] #### [facility] ([facility]) [address] [place], [place] [id number] NoteI PATIENT: Daniella Bejarano DATE OF : 1960 [...] recurrent bladder tumor. Pathology revealed high-grade noninvasive distributor publications, muscularis propria present and uninvolved. - 01/26/2022: [...] diagnosis bilaterally. Therefore she was referred to dc for further management. Ms. Bejarano underwent white [...] by the time she was referred to dc and when she had outside bladder biopsy confirming BCG unresponsive CIS performed on 12/28/2022 and given bladder biopsy I performed on 03/13/2023 revealed no evidence of malignancy, th (more content not included)...[facility]09-[facility] NotePatient ID: Daniella Bejarano is a 64 y.o. [...] in the procedure room for the entire procedure.[facility]09-04-2024 NoteOncology Progress Note Chief Complaint Hx Breast Ca; no questions or concerns. Oncological History/ROS/PE/Assessment and Plan 64 year old female with limited pmhx. 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 Dr. Ward performed R [...] recommended for intravescular gem and taxotere intermittently for5 years. 07/03/24 she is doing well enough. no new complaints. 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 she finished intravescle therapy in [place] and follows with them q3mos. She see Dr. Santiago in [place]. cancer free since december this year. She will switch back to Dr. Reza ndiaye for surveillance. no problems with breasts. she [...] Normal range of motion. Integumentary: Warm, Dry, [place]. Neurologic: Alert, Oriented, Normal sensory. Psychiatric: Cooperative, [...] completed intravesicular gem and taxotere through Dr. Astrid Hines. Follow-up No qualifying data available f/u prn. [...] No information available Labs No Qualifying Data AvailableGal[facility] Hospital06-12-2024 NoteA. Satisfactory for evaluation. Examination of the ThinPrep slide reveals a hypocellular specimen containing scattered squamous cells and rare urothelial cells.[facility] HospitalComment on above:Order Comment: Via cystoPerformed By: #### [id number] ####[facility])[address], [place] [phone] NotePatient ID: Daniella Bejarano is a 63 y.o. [...] in the procedure room for the entire procedure.[facility]06-12-2024 NoteI PATIENT: Daniella Bejaarno DATE OF : 1960 DATE OF VISIT: [...] recurrent bladder tumor. Pathology revealed high-grade noninvasive distributor publications, muscularis propria present and uninvolved. - 01/26/2022: [...] diagnosis bilaterally. Therefore she was referred to dc for further management. Ms. Bejarano underwent white [...] by the time she was referred to dc and when she had outside bladder biopsy confirming BCG unresponsive CIS performed on 12/28/2022 and given bladder biopsy I performed on 03/13/2023 revealed no evidence of malignancy, th (more content not included)...[facility]06-05-2024 Note6-5-24@ [id number] Colonoscopy with EMR procedure note along with pathology results faxed to referring office of Dr. Myrna Cordova @[phone].[facility]05-21-2024 NotePatient: Daniella Bejarano Procedure Summary Date: 03/19/24 Room / Location: [facility] Endoscopy Anesthesia Start: 1143 Anesthesia Stop: [...] acceptable Hydration status: balanced No notable events documented.[facility]05-21-2024 Note Airway Date/Time: 03/19/2024 11:51 AM Urgency: elective General Information and Staff Patient location during procedure: OR Anesthesiologist: Lázaro Lopes MD Resident/STARS SPECIALIST/CAA: Kurtis Regalado DO Performed: resident/STARS SPECIALIST/CAA Indications and Patient Condition Indications for airway [...] approach: 1 Number of other approaches attempted: 0Un[facility] NotePatient: Daniella Bejarano Procedure Information Date/Time: 03/19/24 1115 Scheduled providers: Jenn Vieira MD; JOAN Bateman; Lázaro Lopes MD Procedure: DIAGNOSTIC COLONOSCOPY Location: [facility] Relevant Problems Anesthesia (+) Obstructive sleep [...] patient. Plan discussed with JOAN. 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 Do not wear perfume, make-up, nail argentine, or lotions on the day of your [...] need to make any changes, please call [phone]. Notify your surgeon if you develop any illness such as a cold, cough, fever, sore throat or vomiting between now and your surgery. Thank you for entrusting us with your care. [facility] Surgical Services TeamUnHocking Valley Community Hospital04-12-2024 Note RCRI= 1???points Class II Risk 6.0???% 30-day risk of , [place], or cardiac arrest From a cardiac perspective pt may proceed with colonoscopy, she is a low risk for a low risk procedure. She may hold Aspirin if absolutely needed. Please monitor hemodynamics carefully and prevent any major fluid shifts. This is good for 6 monthsUnHocking [facility] Hospital04-12-2024 Note Hypertension is well controlled Continue olmesartan, and start toprol Renal function stableUnHocking Valley Community Hospital04-12-2024 NoteNoted sinus tachycardia with occasional PACs and PVCs- will start toprol 25 mg daily for management D/W pt to call office for low b/p, fatigue, lightheadedness/dizziness. Or any concernsUnHocking Valley Community Hospital04-12-2024 NoteUTP CARDIOLOGY PROGRESS NOTE [facility] HPI: Daniella Bejarano is a 63 y.o. [...] of the proximal t (more content not included)...[facility]04-12-2024 Note Patient here for follow up Holter monitor [...] myalgias. All other systems reviewed and are negative.[facility] 01-10-2024 NoteSatisfactory for evaluation. Examination of the ThinPrep slide reveals a hypocellular specimen consisting of benign urothelial cells and squamous cells.[facility] HospitalComment on above:Order Comment: Via cystoPerformed By: #### [id number] #### [facility] ([facility]) [address] [place], [place] [id number] NotePatient ID: Daniella Bejarano is a 63 y.o. [...] in the procedure room for the entire procedure.[facility]03-13-2024 NoteI PATIENT: Daniella Bejarano DATE OF : 1960 [...] recurrent bladder tumor. Pathology revealed high-grade noninvasive distributor publications, muscularis propria present and uninvolved. - 01/26/2022: [...] evidence of malignancy, th (more content not included)...[facility]03-05-2024 Note2-3 day holter monitor today to assess for any arrythmias, PVC burden Check BMP and mag level today to assess electrolyte level She may benefit from beta neal dependent upon holter resultsUnHocking Valley Community Hospital03-05-2024 NoteC/O worsening SOB with exertion and edema, will check echocardiogram to assess cardiac function, RV function and rt sided pressures, valvular function [facility]03-05-2024 NotestableUnHocking Valley Community Hospital03-05-2024 NoteHypertension is well controlled currently 124/80 Continue olmesartan 40 mg daily. Depending upon holter monitor result she may benefit from a beta neal for frequent PVCs and palpitationsUnHocking Valley Community Hospital03-05-2024 NotePatient here c/o SOB, LE edema, and intermittent [...] myalgias. All other systems reviewed and are negative.[facility] 01-02-2024 NoteUTP CARDIOLOGY PROGRESS NOTE HPI: Daniella Bejarano is a 63 [...] 0 [DISCONTINUED] ergocalciferol (Vitamin D-2) 1.25 MG (40232 Units) capsule Take by mouth. [DISCONTINUED] oxybutynin [...] - 1.02 mg/dL 1.07 High TBH EGFR-AF NIUEAN >=60 >60 TBH EGFR-NON AF NIUEAN >=60 51 Low BUN CREATININE RATIO 13.1 CALCIUM 8. (more content not included)...[facility]03-08-2023 Hospital Discharge instructions Patient Education 01/04/2023 08:33:50 [...] history, a physical exam, urine tests, lab tests,imaging tests, and your symptoms. You may also [...] tests or imaging tests, such as a CTscan, MRI, bone scan, or chest X-ray. How is this treated? Based on the stage of cancer, one treatment or a combination of treatments may be recommended. The most common forms of treatment are: Surgery to remove the cancer. Procedures that may be done include transurethral resection and cystectomy. Radiation therapy. This is high-energy X-rays or other particles. This is often used in combinationwith chemotherapy. Chemotherapy. During this treatment, medicines are used to kill cancer cells. Immunotherapy. This uses medicines to help your own immune system destroy cancer cells. Follow these instructions at home: Take dzme-loi-oovrgoi and prescription medicines only as told by your health care provider. Maintain a healthy diet. Some of your treatments might affect your appetite. Consider joining a support group. This may help you learn to cope with the stress of having bladdercancer. Tell your cancer care team if you develop side effects. They may be able to recommend ways to relieve them. Keep all follow-up visits as told by your health care provider. This is important. Where to find more information [employer]: www.cancer.org National Cancer [place] (NCI): www.cancer.gov Contact a health care provider [...] history, a physical exam, urine tests, lab tests,imaging tests, and your symptoms. Based on the stage of cancer, surgery, chemotherapy, or a combination of treatments may be recommended. Consider joining a support group. This may help you learn to cope with the stress of having bladdercancer. This information is not intended to replace advice given to you by your health care provider. Make sure you discuss any questions you have with your health care provider. Document Released: 10/18/2004 Document Revised: 09/28/2018 Document Reviewed: 09/19/2017 [employer] Patient Education 2020 [employer]. Follow Up Care 01/02/2023 12:19:37 With:Reza JAMES, ISAIAH Mckeon, URO Address: When: Unknown [facility] 12-21-2022 Hospital Discharge instructions Patient Education 10/19/2022 07:55:05 [...] history, a physical exam, urine tests, lab tests,imaging tests, and your symptoms. You may also [...] tests or imaging tests, such as a CTscan, MRI, bone scan, or chest X-ray. How is this treated? Based on the stage of cancer, one treatment or a combination of treatments may be recommended. The most common forms of treatment are: Surgery to remove the cancer. Procedures that may be done include transurethral resection and cystectomy. Radiation therapy. This is high-energy X-rays or other particles. This is often used in combinationwith chemotherapy. Chemotherapy. During this treatment, medicines are used to kill cancer cells. Immunotherapy. This uses medicines to help your own immune system destroy cancer cells. Follow these instructions at home: Take zfbt-ctt-gfazbak and prescription medicines only as told by your health care provider. Maintain a healthy diet. Some of your treatments might affect your appetite. Consider joining a support group. This may help you learn to cope with the stress of having bladdercancer. Tell your cancer care team if you develop side effects. They may be able to recommend ways to relieve them. Keep all follow-up visits as told by your health care provider. This is important. Where to find more information [employer]: www.cancer.org National Cancer [place] (NCI): www.cancer.gov Contact a health care provider [...] history, a physical exam, urine tests, lab tests,imaging tests, and your symptoms. Based on the stage of cancer, surgery, chemotherapy, or a combination of treatments may be recommended. Consider joining a support group. This may help you learn to cope with the stress of having bladdercancer. This information is not intended to replace advice given to you by your health care provider. Make sure you discuss any questions you have with your health care provider. Document Released: 10/18/2004 Document Revised: 09/28/2018 Document Reviewed: 09/19/2017 [employer] Patient Education 2019 [employer]. [facility] 12-14-2022 Hospital Discharge instructions Patient Education 10/12/2022 08:44:01 [...] history, a physical exam, urine tests, lab tests,imaging tests, and your symptoms. You may also [...] tests or imaging tests, such as a CTscan, MRI, bone scan, or chest X-ray. How is this treated? Based on the stage of cancer, one treatment or a combination of treatments may be recommended. The most common forms of treatment are: Surgery to remove the cancer. Procedures that may be done include transurethral resection and cystectomy. Radiation therapy. This is high-energy X-rays or other particles. This is often used in combinationwith chemotherapy. Chemotherapy. During this treatment, medicines are used to kill cancer cells. Immunotherapy. This uses medicines to help your own immune system destroy cancer cells. Follow these instructions at home: Take derh-hkq-pjlpviz and prescription medicines only as told by your health care provider. Maintain a healthy diet. Some of your treatments might affect your appetite. Consider joining a support group. This may help you learn to cope with the stress of having bladdercancer. Tell your cancer care team if you develop side effects. They may be able to recommend ways to relieve them. Keep all follow-up visits as told by your health care provider. This is important. Where to find more information [employer]: www.cancer.org National Cancer [place] (NCI): www.cancer.gov Contact a health care provider [...] history, a physical exam, urine tests, lab tests,imaging tests, and your symptoms. Based on the stage of cancer, surgery, chemotherapy, or a combination of treatments may be recommended. Consider joining a support group. This may help you learn to cope with the stress of having bladdercancer. This information is not intended to replace advice given to you by your health care provider. Make sure you discuss any questions you have with your health care provider. Document Released: 10/18/2004 Document Revised: 09/28/2018 Document Reviewed: 09/19/2017 [employer] Patient Education TrackBill Follow Up Care 08/22/2022 12:52:59 With:Reza JAMES, ISAIAH Mckeon, URO Address: When:1 week Comments:BCG #2 of #3 [facility] 12-07-2022 Hospital Discharge instructions Follow Up Care 10/05/2022 15:19:40 With:AI REDMOND PA-C, URThao Address: [address] [address] When: Unknown [facility] 09-07-2022 Hospital Discharge instructions Patient Education 07/06/2022 10:25:53 [...] history, a physical exam, urine tests, lab tests,imaging tests, and your symptoms. You may also [...] tests or imaging tests, such as a CTscan, MRI, bone scan, or chest X-ray. How is this treated? Based on the stage of cancer, one treatment or a combination of treatments may be recommended. The most common forms of treatment are: Surgery to remove the cancer. Procedures that may be done include transurethral resection and cystectomy. Radiation therapy. This is high-energy X-rays or other particles. This is often used in combinationwith chemotherapy. Chemotherapy. During this treatment, medicines are used to kill cancer cells. Immunotherapy. This uses medicines to help your own immune system destroy cancer cells. Follow these instructions at home: Take bebu-may-zlgnltw and prescription medicines only as told by your health care provider. Maintain a healthy diet. Some of your treatments might affect your appetite. Consider joining a support group. This may help you learn to cope with the stress of having bladdercancer. Tell your cancer care team if you develop side effects. They may be able to recommend ways to relieve them. Keep all follow-up visits as told by your health care provider. This is important. Where to find more information [employer]: www.cancer.org National Cancer [place] (NCI): www.cancer.gov Contact a health care provider [...] history, a physical exam, urine tests, lab tests,imaging tests, and your symptoms. Based on the stage of cancer, surgery, chemotherapy, or a combination of treatments may be recommended. Consider joining a support group. This may help you learn to cope with the stress of having bladdercancer. This information is not intended to replace advice given to you by your health care provider. Make sure you discuss any questions you have with your health care provider. Document Released: 10/18/2004 Document Revised: 09/28/2018 Document Reviewed: 09/19/2017 [employer] Patient Education 2020 [employer]. Follow Up Care 05/18/2022 11:12:11 With:Reza JAMES, ISAIAH Mckeon, URO Address: When: Unknown [facility] 08-31-2022 Hospital Discharge instructions Patient Education 06/29/2022 08:06:47 [...] history, a physical exam, urine tests, lab tests,imaging tests, and your symptoms. You may also [...] tests or imaging tests, such as a CTscan, MRI, bone scan, or chest X-ray. How is this treated? Based on the stage of cancer, one treatment or a combination of treatments may be recommended. The most common forms of treatment are: Surgery to remove the cancer. Procedures that may be done include transurethral resection and cystectomy. Radiation therapy. This is high-energy X-rays or other particles. This is often used in combinationwith chemotherapy. Chemotherapy. During this treatment, medicines are used to kill cancer cells. Immunotherapy. This uses medicines to help your own immune system destroy cancer cells. Follow these instructions at home: Take wgeu-wlc-rzvahwa and prescription medicines only as told by your health care provider. Maintain a healthy diet. Some of your treatments might affect your appetite. Consider joining a support group. This may help you learn to cope with the stress of having bladdercancer. Tell your cancer care team if you develop side effects. They may be able to recommend ways to relieve them. Keep all follow-up visits as told by your health care provider. This is important. Where to find more information [employer]: www.cancer.org National Cancer [place] (NCI): www.cancer.gov Contact a health care provider [...] history, a physical exam, urine tests, lab tests,imaging tests, and your symptoms. Based on the stage of cancer, surgery, chemotherapy, or a combination of treatments may be recommended. Consider joining a support group. This may help you learn to cope with the stress of having bladdercancer. This information is not intended to replace advice given to you by your health care provider. Make sure you discuss any questions you have with your health care provider. Document Released: 10/18/2004 Document Revised: 09/28/2018 Document Reviewed: 09/19/2017 [employer] Patient Education 2020 [employer]. Follow Up Care 05/18/2022 11:11:14 With:Reza JAMES, ISAIAH Mckeon, URO Address: When:Within 1 Week(s) Comments:BCG #3 [facility] 08-24-2022 Hospital Discharge instructions Patient Education 06/22/2022 09:42:01 [...] history, a physical exam, urine tests, lab tests,imaging tests, and your symptoms. You may also [...] tests or imaging tests, such as a CTscan, MRI, bone scan, or chest X-ray. How is this treated? Based on the stage of cancer, one treatment or a combination of treatments may be recommended. The most common forms of treatment are: Surgery to remove the cancer. Procedures that may be done include transurethral resection and cystectomy. Radiation therapy. This is high-energy X-rays or other particles. This is often used in combinationwith chemotherapy. Chemotherapy. During this treatment, medicines are used to kill cancer cells. Immunotherapy. This uses medicines to help your own immune system destroy cancer cells. Follow these instructions at home: Take xaoa-vuc-bcvemgg and prescription medicines only as told by your health care provider. Maintain a healthy diet. Some of your treatments might affect your appetite. Consider joining a support group. This may help you learn to cope with the stress of having bladdercancer. Tell your cancer care team if you develop side effects. They may be able to recommend ways to relieve them. Keep all follow-up visits as told by your health care provider. This is important. Where to find more information [employer]: www.cancer.org National Cancer [place] (NCI): www.cancer.gov Contact a health care provider [...] history, a physical exam, urine tests, lab tests,imaging tests, and your symptoms. Based on the stage of cancer, surgery, chemotherapy, or a combination of treatments may be recommended. Consider joining a support group. This may help you learn to cope with the stress of having bladdercancer. This information is not intended to replace advice given to you by your health care provider. Make sure you discuss any questions you have with your health care provider. Document Released: 10/18/2004 Document Revised: 09/28/2018 Document Reviewed: 09/19/2017 [employer] Patient Education 2020 [employer]. Follow Up Care 05/18/2022 11:09:55 With:Reza JAMES, ISAIAH Mckeon, URO Address: When:1 week Comments:bcg #2 [facility] 07-20-2022 Hospital Discharge instructions Patient Education 05/18/2022 11:13:27 [...] history, a physical exam, urine tests, lab tests,imaging tests, and your symptoms. You may also [...] tests or imaging tests, such as a CTscan, MRI, bone scan, or chest X-ray. How is this treated? Based on the stage of cancer, one treatment or a combination of treatments may be recommended. The most common forms of treatment are: Surgery to remove the cancer. Procedures that may be done include transurethral resection and cystectomy. Radiation therapy. This is high-energy X-rays or other particles. This is often used in combinationwith chemotherapy. Chemotherapy. During this treatment, medicines are used to kill cancer cells. Immunotherapy. This uses medicines to help your own immune system destroy cancer cells. Follow these instructions at home: Take euhz-xzx-zqjgjvv and prescription medicines only as told by your health care provider. Maintain a healthy diet. Some of your treatments might affect your appetite. Consider joining a support group. This may help you learn to cope with the stress of having bladdercancer. Tell your cancer care team if you develop side effects. They may be able to recommend ways to relieve them. Keep all follow-up visits as told by your health care provider. This is important. Where to find more information [employer]: www.cancer.org National Cancer [place] (NCI): www.cancer.gov Contact a health care provider [...] history, a physical exam, urine tests, lab tests,imaging tests, and your symptoms. Based on the stage of cancer, surgery, chemotherapy, or a combination of treatments may be recommended. Consider joining a support group. This may help you learn to cope with the stress of having bladdercancer. This information is not intended to replace advice given to you by your health care provider. Make sure you discuss any questions you have with your health care provider. Document Released: 10/18/2004 Document Revised: 09/28/2018 Document Reviewed: 09/19/2017 [employer] Patient Education 2020 [employer]. Follow Up Care 05/12/2022 12:08:46 With:Reza JAMES, ISAIAH Mckeon, URO Address: When:1 month [facility] 05-19-2022 Hospital Discharge instructions Follow Up Care 03/17/2022 16:12:48 With:Jeff Booth Address: [facility] [place] [address] [phone] Fax Business (1) When: Unknown Comments:f/u 1 year. no labs. [facility]05-04-2022 Hospital Discharge instructions Patient Education 03/02/2022 09:44:08 [...] history, a physical exam, urine tests, lab tests,imaging tests, and your symptoms. You may also [...] tests or imaging tests, such as a CTscan, MRI, bone scan, or chest X-ray. How is this treated? Based on the stage of cancer, one treatment or a combination of treatments may be recommended. The most common forms of treatment are: Surgery to remove the cancer. Procedures that may be done include transurethral resection and cystectomy. Radiation therapy. This is high-energy X-rays or other particles. This is often used in combinationwith chemotherapy. Chemotherapy. During this treatment, medicines are used to kill cancer cells. Immunotherapy. This uses medicines to help your own immune system destroy cancer cells. Follow these instructions at home: Take ilex-yrh-jqpvqck and prescription medicines only as told by your health care provider. Maintain a healthy diet. Some of your treatments might affect your appetite. Consider joining a support group. This may help you learn to cope with the stress of having bladdercancer. Tell your cancer care team if you develop side effects. They may be able to recommend ways to relieve them. Keep all follow-up visits as told by your health care provider. This is important. Where to find more information [employer]: www.cancer.org National Cancer [place] (NCI): www.cancer.gov Contact a health care provider [...] history, a physical exam, urine tests, lab tests,imaging tests, and your symptoms. Based on the stage of cancer, surgery, chemotherapy, or a combination of treatments may be recommended. Consider joining a support group. This may help you learn to cope with the stress of having bladdercancer. This information is not intended to replace advice given to you by your health care provider. Make sure you discuss any questions you have with your health care provider. Document Released: 10/18/2004 Document Revised: 09/28/2018 Document Reviewed: 09/19/2017 [employer] Patient Education 2020 [employer]. Follow Up Care 12/29/2021 09:06:11 With:AI REDMOND PA-C, URL Address: [address] [place] [address] When: Unknown Comments:follow up after cysto with [facility] 04-13-2022 Hospital Discharge instructions Patient Education 02/09/2022 08:41:39 [...] history, a physical exam, urine tests, lab tests,imaging tests, and your symptoms. You may also [...] tests or imaging tests, such as a CTscan, MRI, bone scan, or chest X-ray. How is this treated? Based on the stage of cancer, one treatment or a combination of treatments may be recommended. The most common forms of treatment are: Surgery to remove the cancer. Procedures that may be done include transurethral resection and cystectomy. Radiation therapy. This is high-energy X-rays or other particles. This is often used in combinationwith chemotherapy. Chemotherapy. During this treatment, medicines are used to kill cancer cells. Immunotherapy. This uses medicines to help your own immune system destroy cancer cells. Follow these instructions at home: Take xqud-qyi-ddkdnwa and prescription medicines only as told by your health care provider. Maintain a healthy diet. Some of your treatments might affect your appetite. Consider joining a support group. This may help you learn to cope with the stress of having bladdercancer. Tell your cancer care team if you develop side effects. They may be able to recommend ways to relieve them. Keep all follow-up visits as told by your health care provider. This is important. Where to find more information [employer]: www.cancer.org National Cancer [place] (NCI): www.cancer.gov Contact a health care provider [...] history, a physical exam, urine tests, lab tests,imaging tests, and your symptoms. Based on the stage of cancer, surgery, chemotherapy, or a combination of treatments may be recommended. Consider joining a support group. This may help you learn to cope with the stress of having bladdercancer. This information is not intended to replace advice given to you by your health care provider. Make sure you discuss any questions you have with your health care provider. Document Released: 10/18/2004 Document Revised: 09/28/2018 Document Reviewed: 09/19/2017 [employer] Patient Education 2020 [employer]. Follow Up Care 12/29/2021 09:03:01 With:Reza JAMES, ISAIAH Mckeon, URO Address: When: Unknown [facility] 04-06-2022 Hospital Discharge instructions Patient Education 02/02/2022 08:11:12 [...] history, a physical exam, urine tests, lab tests,imaging tests, and your symptoms. You may also [...] tests or imaging tests, such as a CTscan, MRI, bone scan, or chest X-ray. How is this treated? Based on the stage of cancer, one treatment or a combination of treatments may be recommended. The most common forms of treatment are: Surgery to remove the cancer. Procedures that may be done include transurethral resection and cystectomy. Radiation therapy. This is high-energy X-rays or other particles. This is often used in combinationwith chemotherapy. Chemotherapy. During this treatment, medicines are used to kill cancer cells. Immunotherapy. This uses medicines to help your own immune system destroy cancer cells. Follow these instructions at home: Take uvul-afu-qzvleel and prescription medicines only as told by your health care provider. Maintain a healthy diet. Some of your treatments might affect your appetite. Consider joining a support group. This may help you learn to cope with the stress of having bladdercancer. Tell your cancer care team if you develop side effects. They may be able to recommend ways to relieve them. Keep all follow-up visits as told by your health care provider. This is important. Where to find more information [employer]: www.cancer.org National Cancer [place] (NCI): www.cancer.gov Contact a health care provider [...] history, a physical exam, urine tests, lab tests,imaging tests, and your symptoms. Based on the stage of cancer, surgery, chemotherapy, or a combination of treatments may be recommended. Consider joining a support group. This may help you learn to cope with the stress of having bladdercancer. This information is not intended to replace advice given to you by your health care provider. Make sure you discuss any questions you have with your health care provider. Document Released: 10/18/2004 Document Revised: 09/28/2018 Document Reviewed: 09/19/2017 [employer] Patient Education 2020 [employer]. Follow Up Care 12/29/2021 09:02:14 With:Reza JAMES, ISAIAH Mckeon, URO Address: When: Unknown [facility] 03-30-2022 Hospital Discharge instructions Patient Education 01/26/2022 08:03:49 [...] history, a physical exam, urine tests, lab tests,imaging tests, and your symptoms. You may also [...] tests or imaging tests, such as a CTscan, MRI, bone scan, or chest X-ray. How is this treated? Based on the stage of cancer, one treatment or a combination of treatments may be recommended. The most common forms of treatment are: Surgery to remove the cancer. Procedures that may be done include transurethral resection and cystectomy. Radiation therapy. This is high-energy X-rays or other particles. This is often used in combinationwith chemotherapy. Chemotherapy. During this treatment, medicines are used to kill cancer cells. Immunotherapy. This uses medicines to help your own immune system destroy cancer cells. Follow these instructions at home: Take urde-igl-fzqkbkx and prescription medicines only as told by your health care provider. Maintain a healthy diet. Some of your treatments might affect your appetite. Consider joining a support group. This may help you learn to cope with the stress of having bladdercancer. Tell your cancer care team if you develop side effects. They may be able to recommend ways to relieve them. Keep all follow-up visits as told by your health care provider. This is important. Where to find more information [employer]: www.cancer.org National Cancer [place] (NCI): www.cancer.gov Contact a health care provider [...] history, a physical exam, urine tests, lab tests,imaging tests, and your symptoms. Based on the stage of cancer, surgery, chemotherapy, or a combination of treatments may be recommended. Consider joining a support group. This may help you learn to cope with the stress of having bladdercancer. This information is not intended to replace advice given to you by your health care provider. Make sure you discuss any questions you have with your health care provider. Document Released: 10/18/2004 Document Revised: 09/28/2018 Document Reviewed: 09/19/2017 [employer] Patient Education 2020 [employer]. Follow Up Care 12/29/2021 08:59:52 With:Reza JAMES, ISAIAH Mckeon, URO Address: [address] [place] [address]- [phone] Business (1) When: Unknown [facility] evaluation + Plan note Future Appointments Appointment Date:02/02/2022 08:00:00 AM Scheduled Provider:Dina Cobb MD Location:[facility] Appointment Type:URO Office Visit Appointment Date:02/09/2022 08:00:00 AM Scheduled Provider:Dina Cobb MD Location:[facility] Appointment Type:URO Office Visit Appointment Date:02/16/2022 08:00:00 AM Scheduled Provider:Dina Cobb MD Location:[facility] Appointment Type:URO Office Visit Appointment Date:02/23/2022 08:00:00 AM Scheduled Provider:Dina Cobb MD Location:[facility] Appointment Type:URO Office Visit Appointment Date:03/02/2022 09:30:00 AM Scheduled Provider:Dina Cobb MD Location:[facility] Appointment Type:URO Office Visit Appointment Date:03/17/2022 03:00:00 PM Scheduled Provider:Jeff Booth [facility] Office [facility] ([facility]) [facility] evaluation + Plan note Future Appointments Appointment Date:02/02/2022 08:00:00 AM Scheduled Provider:Dina Cobb MD Location:[facility] Appointment Type:URO Office Visit Appointment Date:02/09/2022 08:00:00 AM Scheduled Provider:Dina Cobb MD Location:[facility] Appointment Type:URO Office Visit Appointment Date:02/16/2022 08:00:00 AM Scheduled Provider:Dina Cobb MD Location:[facility] Appointment Type:URO Office Visit Appointment Date:02/23/2022 08:00:00 AM Scheduled Provider:Dina Cobb MD Location:[facility] Appointment Type:URO Office Visit Appointment Date:03/02/2022 09:30:00 AM Scheduled Provider:Dina Cobb MD Location:[facility] Appointment Type:URO Office Visit Appointment Date:03/17/2022 03:00:00 PM Scheduled Provider:Jeff Booth DO Location:[facility] Appointment Type:ONC Office Visit New 30 (FT) Diagnostic Tests Pending * [facility] App[facility]ments Appointment Date:02/09/2022 08:00:00 AM Scheduled Provider:Dina Cobb MD Location:[facility] Appointment Type:URO Office Visit Appointment Date:02/16/2022 08:00:00 AM Scheduled Provider:Dina Cobb MD Location:[facility] Appointment Type:URO Office Visit Appointment Date:02/23/2022 08:00:00 AM Scheduled Provider:Dina Cobb MD Location:[facility] Appointment Type:URO Office Visit Appointment Date:03/02/2022 09:30:00 AM Scheduled Provider:Dina Cobb MD Location:[facility] Appointment Type:URO Office Visit Appointment Date:03/17/2022 03:00:00 PM Scheduled Provider:Jeff Booth DO Location:.ONCOLOGY Appointment Type:ONC Office Visit New 30 ([facility]) [facility] evaluation + Plan note Future Appointments Appointment Date:02/16/2022 08:00:00 AM Scheduled Provider:Dina Cobb MD Location:[facility] Appointment Type:URO Office Visit Appointment Date:02/23/2022 08:00:00 AM Scheduled Provider:Dina Cobb MD Location:[facility] Appointment Type:URO Office Visit Appointment Date:03/02/2022 09:30:00 AM Scheduled Provider:Dina Cobb MD Location:[facility] Appointment Type:URO Office Visit Appointment Date:03/17/2022 03:00:00 PM Scheduled Provider:Jeff Booth DO Location:.ONCOLOGY Appointment Type:ONC Office Visit New 30 ([facility]) [facility] evaluation + Plan note Future Appointments Appointment Date:03/17/2022 03:00:00 PM Scheduled Provider:Jeff Booth DO Location:[facility] Appointment Type:ONC Office Visit New 30 (FT) [facility] evaluation + Plan note Future Appointments Appointment Date:03/15/2023 12:30:00 PM Scheduled Provider:Jeff Booth DO Location:[facility] Appointment Type:ONC Office Visit 15 (FT) Diagnostic Tests Pending * Urine Culture [facility] Future App[facility]ments Appointment Date:03/15/2023 12:30:00 PM Scheduled Provider:Jeff Booth DO Location:[facility] Appointment Type:ONC Office Visit 15 ([facility]) [facility] evaluation + Plan note Future Appointments Appointment Date:06/22/2022 10:15:00 AM Scheduled Provider:Dnia Cobb MD Location:[facility] Appointment Type:URO Office Visit Appointment Date:06/29/2022 10:15:00 AM Scheduled Provider:Dina Cobb MD Location:[facility] Appointment Type:URO Office Visit Appointment Date:07/06/2022 10:15:00 AM Scheduled Provider:Dina Cobb MD Location:[facility] Appointment Type:URO Office Visit Appointment Date:03/15/2023 12:30:00 PM Scheduled Provider:Jeff Booth DO Location:[facility] Appointment Type:ONC Office Visit 15 ([facility]) [facility] evaluation + Plan note Future Appointments Appointment Date:06/29/2022 07:45:00 AM Scheduled Provider:Dina Cobb MD Location:[facility] Appointment Type:URO Office Visit Appointment Date:07/06/2022 10:15:00 AM Scheduled Provider:Dina Cobb MD Location:[facility] Appointment Type:URO Office Visit Appointment Date:03/15/2023 12:30:00 PM Scheduled Provider:Jeff Booth DO Location:[facility] Appointment Type:ONC Office Visit 15 (FT) [facility] evaluation + Plan note Future Appointments Appointment Date:07/06/2022 10:15:00 AM Scheduled Provider:Dina Cobb MD Location:[facility] Appointment Type:URO Office Visit Appointment Date:03/15/2023 12:30:00 PM Scheduled Provider:Jeff Booth DO Location:[facility] Appointment Type:ONC Office Visit 15 (FT) Diagnostic Tests Pending * BUN 06/29/22 * Creatinine 06/29/22 [facility] evaluation + Plan note Future Appointments Appointment Date:10/19/2022 08:00:00 AM Scheduled Provider:Dina Cobb MD Location:[facility] Appointment Type:URO Office Visit Appointment Date:10/26/2022 10:30:00 AM Scheduled Provider:AI REDMOND PA-C Location:[facility] Appointment Type:URO Office Visit Appointment Date:03/15/2023 12:30:00 PM Scheduled Provider:Jeff Booth DO Location:[facility] Appointment Type:ONC Office Visit 15 (FT) [facility] evaluation + Plan note Future Appointments Appointment Date:10/26/2022 10:30:00 AM Scheduled Provider:AI REDMOND PA-C Location:[facility] Appointment Type:URO Office Visit Appointment Date:03/15/2023 12:30:00 PM Scheduled Provider:Jeff Booth DO Location:[facility] Appointment Type:ONC Office Visit 15 (FT) [facility] evaluation + Plan note Future Appointments Appointment Date:03/15/2023 12:30:00 PM Scheduled Provider:Jeff Booth DO Location:[facility] Appointment Type:ONC Office Visit 15 (FT) Diagnostic Tests Pending * Urine Culture 12[facility]14/22 [facility] Future Appointments Appointment Date:04/24/2024 11:00:00 AM Scheduled Provider:Jeff Booth DO Location:.[facility]COL[facility] Appointment Type:ONC Office Visit 15 ([facility]) [facility] Future Appointments Appointment Date:07/18/2025 09:00:00 AM Scheduled Provider: Location:[facility] Appointment Type:Urology CALL PAT FT Appointment Date:07/21/2025 10:45:00 AM Scheduled Provider: Location:[facility] Appointment Type:Urology FT [facility] Evaluation noteNo assessment information available [facility] Work Phone: Evaluation note* Diagnosis Essential hypertension (CMS/HCC)- Primary Unspecified [...] colon polyps, unspecified documented in this encounter [facility] HealthcareEvaluation [facility]* Diagnosis Essential hypertension (CMS/HCC)- [...] or maintaining sleep documented in this encounter [facility]* [...] or maintaining sleep documented in this encounter [facility] HealthcareEvaluation note* Diagnosis Essential hypertension (CMS/HCC)- Primary [...] (CMS/HCC) Body mass index (BMI) 45.0-49.9, adult (CMS/[facility]) Need for malaria prophylaxis Essential hypertension (CMS/HCC)- [...] (BMI) of 45.0 to 49.9 in adult (CMS/[facility]) documented in this encounter [facility] HealthcareEvaluation note* Diagnosis Essential hypertension (CMS/HCC)- Primary [...] (CMS/HCC) Body mass index (BMI) 45.0-49.9, adult (CMS/[facility]) Need for malaria prophylaxis Essential hypertension (CMS/HCC)- [...] of 45.0 to 49.9 in adult (CMS/HCC) Essential hypertension (CMS/HCC)- Primary Unspecified essential hypertension Class 3 severe obesity due to excess calories with serious comorbidity and body mass index (BMI) of 45.0 to 49.9 in adult (CMS/HCC) Obstructive sleep apnea syndrome Obstructive sleep apnea (adult) (pediatric) Prediabetes Other abnormal glucose documented in this encounter [facility] HealthcareEvaluation note* Diagnosis Essential hypertension (CMS/HCC)- [...] (BMI) of 45.0 to 49.9 in adult Essential hypertension (CMS/HCC)- Primary Unspecified essential hypertension Class 3 severe obesity due to excess calories with serious comorbidity and body mass index (BMI) of 45.0 to 49.9 in adult Obstructive sleep apnea syndrome Obstructive sleep apnea (adult) (pediatric) Prediabetes Other abnormal glucose Essential hypertension (CMS/HCC)- Primary Unspecified essential hypertension Class 3 severe obesity due to excess calories with serious comorbidity and body mass index (BMI) of 45.0 to 49.9 in adult Bilateral edema of lower extremity Class 3 severe obesity due to excess calories with serious comorbidity and body mass index (BMI) of 45.0 to 49.9 in adult documented in this encounter [facility] HealthcareEvaluation note* Diagnosis Essential hypertension (CMS/HCC)- Primary [...] (BMI) of 45.0 to 49.9 in adult Essential hypertension (CMS/HCC)- Primary Unspecified essential hypertension Class 3 severe obesity due to excess calories with serious comorbidity and body mass index (BMI) of 45.0 to 49.9 in adult Obstructive sleep apnea syndrome Obstructive sleep apnea (adult) (pediatric) Prediabetes Other abnormal glucose Essential hypertension (CMS/HCC)- Primary Unspecified essential hypertension Class 3 severe obesity due to excess calories with serious comorbidity and body mass index (BMI) of 45.0 to 49.9 in adult Class 3 severe obesity due to excess calories with serious comorbidity and body mass index (BMI) of 45.0 to 49.9 in adult documented in this encounter [facility] HealthcareEvaluation note* Diagnosis Essential hypertension (CMS/HCC)- Primary [...] (BMI) of 45.0 to 49.9 in adult Essential hypertension (CMS/HCC)- Primary Unspecified essential hypertension Class 3 severe obesity due to excess calories with serious comorbidity and body mass index (BMI) of 45.0 to 49.9 in adult Obstructive sleep apnea syndrome Obstructive sleep apnea (adult) (pediatric) Prediabetes Other abnormal glucose Essential hypertension (CMS/HCC)- Primary Unspecified essential hypertension Class 3 severe obesity due to excess calories with serious comorbidity and body mass index (BMI) of 45.0 to 49.9 in adult Essential hypertension (CMS/HCC)- Primary Unspecified essential hypertension Class 3 severe obesity due to excess calories with serious comorbidity and body mass index (BMI) of 45.0 to 49.9 in adult documented in this encounter [facility] HealthcareEvaluation note* Diagnosis Essential hypertension- Primary Unspecified essential hypertension Lower extremity edema Edema Bilateral edema of lower extremity GERD without esophagitis Esophageal reflux Malignant neoplasm of urinary bladder, unspecified site (HCC) Morbid obesity ([facility]) Morbid obesity Annual physical exam- Primary Routine general medical examination at a health care facility Morbid (severe) obesity due to excess calories ([facility]) Body mass index (BMI) 45.0-49.9, adult ([facility]) Need for malaria prophylaxis Essential hypertension- Primary Unspecified essential hypertension Abnormal liver function Unspecified disorder of liver GERD without esophagitis Esophageal reflux History of breast cancer Personal history of malignant neoplasm of breast Bilateral edema of lower extremity Malignant neoplasm of urinary bladder, unspecified site (HCC) Class 3 severe obesity due to excess calories with serious comorbidity and body mass index (BMI) of 45.0 to 49.9 in adult ([facility]) Essential hypertension- Primary Unspecified essential hypertension Class 3 severe obesity due to excess calories with serious comorbidity and body mass index (BMI) of 45.0 to 49.9 in adult ([facility]) Obstructive sleep apnea syndrome Obstructive sleep apnea (adult) (pediatric) Prediabetes Other abnormal glucose Essential hypertension- Primary Unspecified essential hypertension Class 3 severe obesity due to excess calories with serious comorbidity and body mass index (BMI) of 45.0 to 49.9 in adult ([facility]) Essential hypertension- Primary Unspecified essential hypertension Class 3 severe obesity due to excess calories with serious comorbidity and body mass index (BMI) of 45.0 to 49.9 in adult ([facility]) Class 3 severe obesity due to excess calories with serious comorbidity and body mass index (BMI) of 45.0 to 49.9 in adult ([facility]) documented in this encounter [facility] HealthcareEvaluation note* Diagnosis Essential hypertension- Primary Unspecified essential hypertension Lower extremity edema Edema Bilateral edema of lower extremity GERD without esophagitis Esophageal reflux Malignant neoplasm of urinary bladder, unspecified site (HCC) Morbid obesity ([facility]) Morbid obesity Annual physical exam- Primary Routine general medical examination at a health care facility Morbid (severe) obesity due to excess calories ([facility]) Body mass index (BMI) 45.0-49.9, adult ([facility]) Need for malaria prophylaxis Essential hypertension- Primary Unspecified essential hypertension Abnormal liver function Unspecified disorder of liver GERD without esophagitis Esophageal reflux History of breast cancer Personal history of malignant neoplasm of breast Bilateral edema of lower extremity Malignant neoplasm of urinary bladder, unspecified site ([facility]) Class 3 severe obesity due to excess calories with serious comorbidity and body mass index (BMI) of 45.0 to 49.9 in adult ([facility]) Essential hypertension- Primary Unspecified essential hypertension Class 3 severe obesity due to excess calories with serious comorbidity and body mass index (BMI) of 45.0 to 49.9 in adult ([facility]) Obstructive sleep apnea syndrome Obstructive sleep apnea (adult) (pediatric) Prediabetes Other abnormal glucose Essential hypertension- Primary Unspecified essential hypertension Class 3 severe obesity due to excess calories with serious comorbidity and body mass index (BMI) of 45.0 to 49.9 in adult ([facility]) Essential hypertension- Primary Unspecified essential hypertension Class 3 severe obesity due to excess calories with serious comorbidity and body mass index (BMI) of 45.0 to 49.9 in adult ([facility]) Medicare annual wellness visit, subsequent- Primary Dyslipidemia Other and unspecified hyperlipidemia Essential hypertension Unspecified essential hypertension Prediabetes Other abnormal glucose Encounter for long-term current use of medication Class 3 severe obesity due to excess calories with serious comorbidity and body mass index (BMI) of 40.0 to 44.9 in adult ([facility]) [facility] Narrative No data available for this section [facility] Hospital Discharge instructions No data available for this section [facility] No data available for this section [facility] Summary Purpose Family History No Family History Records Found Relationship Condition Age at Onset Recorded Date/T jacinto brother Arthritis Unknown father Unknown Not Specified History of stroke Unknown sister Myocardial infarction Unknown Advance Directives No Advanced Directives Records Found Advance Directive Response Recorded Date/ Time Advance Directives No March 26 0 12:51pm Additional Source Comments INFORMATION SOURCE (unrecogn ized section and content) DATE CREATED AUTHOR 06/24/2020 [facility] DATE CREATED AUTHOR AUTHOR'S ORGANIZ ATION 09/01/2020 [facility] DATE CREATED AUTHOR AUTHOR'S ORGANIZ ATION 11/21/2020 [facility] DATE CREATED AUTHOR AUTHOR'S ORGANIZ ATION 03/09/2023 [facility] DATE CREATED AUTHOR AUTHOR'S ORGANIZ ATION 02/24/2024 [facility] DATE CREATED AUTHOR AUTHOR'S ORGANIZ ATION 12/02/2024 [facility] DATE CREATED AUTHOR AUTHOR'S ORGANIZ ATION 01/15/2025 [facility] DATE CREATED AUTHOR AUTHOR'S ORGANIZ ATION 01/28/2025 [facility] DATE CREATED AUTHOR AUTHOR'S ORGANIZ ATION 05/03/2025 [facility] DATE CREATED AUTHOR AUTHOR'S ORGANIZ ATION 05/31/2025 [facility] Care Team (unrecognized sect ion and content) Team Status: Active Member Role Status Dates Bayron Singh MD Primary Care Provider Active Team Status: Inactive Member Role Status Dates Bayron Singh MD Primary Care Provider Active S tart: February 14, 2024 End: February 14, 2024 Jeff Cordova Attending Provider Active Start: February 14, 2024 End: February 14, 2024 Laser Cutter Relationship Specialty Start Date End Date Bayron Singh MD [address] [place] [phone] PCP - [employer] 12/29/23 Bayron Singh MD [address] [place] [phone] PCP - General Family Medicine 05/21/24 Laser Cutter Relationship Specialty Start Date End Date Bayron Singh MD [address] [place] [phone] PCP - [employer] 12/29/23 Bayron Singh MD [address] [place] [address] PCP - General Family Medicine 05/21/24 Laser Cutter Relationship Specialty Start Date End Date Bayron Singh MD [address] [place] [address] PCP - [employer] 12/29/23 Bayron Singh MD [address] [place] [address] PCP - General Family Medicine 05/21/24 Laser Cutter Relationship Specialty Start Date End Date Bayron Singh MD [address] [place] [phone] PCP - [employer] 12/29/23 Bayron Singh MD [address] [place] [address] PCP - General Family Medicine 05/21/24 Laser Cutter Relationship Specialty Start Date End Date Bayron Singh MD [address] [place] [phone] PCP - [employer] 12/29/23 Bayron Singh MD [address] [place] [address] PCP - General Family Medicine 05/21/24 Laser Cutter Relationship Specialty Start Date End Date Bayron Singh MD [address] [place] [address] PCP - [employer] 12/29/23 Bayron Singh MD [address] [place] [phone] PCP - General Family Medicine 05/21/24 Laser Cutter Relationship Specialty Start Date End Date Bayron Singh MD [address] [place] [phone] PCP - [employer] 12/29/23 Bayron Singh MD [address] [place] [phone] PCP - General Family Medicine 05/21/24 Laser Cutter Relationship Specialty Start Date End Date Bayron Singh MD [address] [place] [phone] PCP - [employer] 12/29/23 Bayron Singh MD [address] [place] [phone] PCP - General Family Medicine 05/21/24 Laser Cutter Relationship Specialty Start Date End Date Bayron Singh MD [address] [place] [phone] PCP - General Family Medicine 05/21/24 Laser Cutter Relationship Specialty Start Date End Date Bayron Singh MD [address] [place] [phone] PCP - General Family Medicine 05/21/24 Laser Cutter Relationship Specialty Start Date End Date Bayron Singh MD [address] [place] [phone] PCP - General Family Medicine 05/21/24 Laser Cutter Relationship Specialty Start Date End Date Bayron Singh MD [address] [place] [address] PCP - General Family Medicine 05/21/24 Laser Cutter Relationship Specialty Start Date End Date Bayron Singh MD [address] [place] [address] PCP - General Family Medicine 05/21/24 Laser Cutter Relationship Specialty Start Date End Date Bayron Singh MD [address] [place] [phone] PCP - General Family Medicine 05/21/24 Laser Cutter Relationship Specialty Start Date End Date Bayron Singh MD [address] [place] [phone] PCP - General Family Medicine 05/21/24 Laser Cutter Relationship Specialty Start Date End Date Bayron Singh MD [address] [place] [address] PCP - General Family Medicine 05/21/24 Laser Cutter Relationship Specialty Start Date End Date Bayron Singh MD [address] [place] [address] PCP - General Family Medicine 05/21/24 Laser Cutter Relationship Specialty Start Date End Date Bayron Singh MD [address] [place] [address] PCP - General Family Medicine 05/21/24 Goals [...] She was told by the DR at [facility] that she needed a follow up colonoscopy by the end of year to make sure she was healing well. She denies any concerns. Reason Onset Date Comments Med Refill 10/03/2024 Reason Onset Date Comments Med Refill 10/11/2024 Reason Comments Follow-up 6m Fatigue Tired all the time Shortness of Breath Reason Comments Follow-up adipex Reason Onset Date Comments Med Refill 01/29/2025 Reason Comments Med Refill Reason Comments Follow-up 2m Reason Comments Medicare Annual Wellness Visit Subsequen t wellness FOR RECORDS PERTAINING TO PATIENTS WHO ARE [...] BE BASED ON THE PRIMARY CLINICAL RECORDS. [facility]. provides no warranty or guarantee of the accuracy or completeness of information in this document.
[2025-06-26 15:08] LABS: Alanine Aminotransferase 50 U/L (14-59); Albumin Globulin Ratio 0.9; Albumin Level 3.7 g/dL (3.4-5.0); Alkaline Phosphatase 91 U/L (46-116); Anion Gap 11.1; Aspartate Amino Transferase 36 U/L (15-37); Blood Urea Nitrogen 19.0 mg/dL (7.0-18.0); Calcium 9.8 mg/dL (8.5-10.1); Carbon Dioxide 27.3 mmol/L (21.0-32.0); Chloride 105 mmol/L (98-107); Estimated GFR (African America >60 (>=60 mL/min/1.73m^2); Estimated GFR (Non-African Ame 51 (>=60 mL/min/1.73m^2); Globulin 4.0 g/dL; Glucose 97 mg/dL (74-106); Potassium 4.4 mmol/L (3.5-5.1); Sodium 139 mmol/L (136-145); Total Protein 7.7 g/dL (6.4-8.2)
== END 2025-06-26 14:28 | disposition home or self-care (01) ==
LOC: LAB 14:27
PROVIDERS: PCP Family Medicine; Visit Provider Internal Medicine Rheumatology
DX: M15.0 Primary generalized (osteo)arthritis (principal); Z79.899 Other long term (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
CPT/HCPCS: 36415; 80053; 85025

== ENCOUNTER 2025-09-17 14:16 | Outpatient (OUT) | payer MEDICARE, OTHER, SELFPAY ==
--- NOTE | 2025-09-17 | MM_ITS ---
Patient Name: DANIELLA BEJARANO MR#: [id number] : 1960 Exam Date: 09/17/2025 Ordering Doctor: DR NILS SINGH . RADIOLOGY REPORT PROCEDURE: MM TOMOSYNTHESIS SCREENING LT COMPARISON: MM TOMOSYNTHESIS SCREENING LT, 05/09/2024. MG MAMM SCREEN LT 3D CAD, 04/11/2022. MG MAMM SCREEN LT 3D CAD, 03/26/2021. MG MAMM LT DIAG W CAD, 03/26/2020. INDICATIONS: SCREENING FOR MALGINANCY OF BREASTS Calculator Name NCI Breast Cancer Risk Assessment Tool 5 Year Breast Cancer Risk n/a% Lifetime Breast Cancer Risk n/a% Personal Breast Cancer Yes, Invasive CA of Right, 56 Personal Ovarian Cancer No Treatments Right mastectomy Family Cancers Aunt-maternal with breast cancer at age ~70; Aunt-paternal with breast cancer at age ~70. LOCATION: [facility] BREAST COMPOSITION: There are scattered areas of fibroglandular density. FINDINGS: DIAGNOSTIC CATEGORY 2--BENIGN FINDING. NO CHANGE FROM COMPARISON. LEFT BREAST: No significant suspicious finding. Benign-appearing calcification is present. RECOMMENDATIONS: ROUTINE MAMMOGRAM AND CLINICAL EVALUATION IN 12 MONTHS. Dictated by: Jacky Giron MD on 09/17/2025 at 16:49 Approved by: Jacky Giron MD on 09/17/2025 at 16:50
--- OUTSIDE RECORDS SUMMARY | 2025-09-17 14:22 | XMS_ITS | CCD ---
Author Organization [facility] Team Providers Care Chapter Relations Administrator Name Role Phone UNKNOWN, PROVIDER Admitting Unavailable UNKNOWN, PROVIDER Attending Unavailable SELF, REFERRED Referring Unavailable SHANTAEREBAYRON Narvaez Primary Care Unavailable NADERER, BAYRON Primary Care Physician [phone] LUE ., DINA M Attending Unavailable LUE ., DINA M Admitting Unavailable LUE ., DINA M Consulting Unavailable NADERER, DR BAYRON Perez Primary Care Unavailable LUE ., DINA M Attending Unavailable LUE ., DINA M Admitting Unavailable HARLAN, DR SPARKLE Napoles Consulting Unavailable NADERER, DR [...] Primary Care Provider Jeff Cordova Attending Provider [phone] Jeff Cordova Attending Unavailable Jeff Cordova Admitting Unavailable Priscilla, Bayron Primary Care Unavailable Bayron Singh MD Unavailable aByron Singh MD Primary Care Provider [phone] JENN VIEIRA Admitting Unavailable JENN VIEIRA Attending Unavailable MYRNA CORDOVA Referring Unavailable NASRA BUSTOS Attending Unavailable DIETER, FIRAS Attending Unavailable DIEETR, FIRAS Attending Unavailable JEREMIAH, OZZY Attending Unavailable DIETER, FIRAS Attending Unavailable JEREMIAH, OZZY Attending Unavailable DIETER, FIRAS Attending Unavailable Adamowicz, Jeff Attending Unavailable Adamowicz, Jeff Referring Unavailable Lue, Dina M. Admitting Unavailable Lue, Dina M. Attending Unavailable Lue, Dina M. Referring Unavailable Lue, Dina M. Admitting Unavailable Lue, Dina M. Attending Unavailable Lue, Dina M. Referring Unavailable NADERER, BAYRON Attending Unavailable NADERER, BAYRON Attending Unavailable TASHA, MYRNA Attending Unavailable NADERER, BAYRON Attending Unavailable NADERER, BAYRON Attending Unavailable NADERER, BAYRON Attending Unavailable Lue, Dina M. Attending Unavailable Lue, Dina M. Referring Unavailable Lue, Dina M. Attending Unavailable Lue, Dina M. Admitting Unavailable Lue, Dina M. Admitting Unavailable Lue, Dina M. Attending Unavailable Bayron Singh MD Primary Care Provider Bayron Singh MD Unavailable Bayron Singh MD Primary Care Provider Bayron Singh MD Primary Care Provider Bayron Singh MD Primary Care Provider [phone] Bayron Singh MD Attending Provider Allergies Allergy ClassificationReported Allergen(s)Allergy TypeDate of OnsetReaction(s) Facility (20 sources)Acetaminophen / oxyCODONE; 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: [acetaminophen-oxycodone] Drug AllergyHeadache (finding)[facility] (1 source)Acetaminophen / oxyCODONEDrug Kdxveyk62-16-1719Vqt [facility] (8 sources)Acetaminophen / oxyCODONE; 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: [OXYCODONE-ACETAMINOPHEN] Drug [id number], [facility] Work Phone: Medications Current Medications MedicationDrug Class(es)DatesSig (Normalized)Sig (Original)acetaminophen 325 mg / oxyCODONE hydrochloride 5 mg oral tablet (4 sources)Opioid AgonistStart: 11-03-2024 End: 32-67-5300wxta 1 tablet by mouth every six hours as neededoxyCODONE- acetaminophen (Percocet) 5-325 MG tablet Take 1 tablet by mouth every 6 (six) hours if needed 11/03/2024 11/26/2024 Discontinuedaspirin 81 mg delayed release oral tablet (20 sources)Platelet Aggregation Inhibitor, Nonsteroidal Anti-inflammatory Drug Start: 95-60-9653akda 1 mg by mouth once dailyaspirin 81 mg Oral EC Tab mg tab(s), Oral, Daily, Refills(s) 0 Start Date: 07/07/21 Status: Ordered Repeat number: 1Start: 97-31-1092pqry 1 tablet by mouth once dailyAspirin 81 mg Tablet,Chewable Active 81 MG PO Daily March 25, 2020 11:00pm Complies with drug therapyazelastine hydrochloride 0.5 mg/ml ophthalmic solution (20 sources)Histamine-1 Receptor AntagonistStart: 41-80-3965ifrh 1 drop(s) into the eye(s) twice dailyAzelastine 0.05 % drops Active 1 DROPS EYE-BOTH Twice daily 04 01August 07, 2025 11:00pm Complies with drug therapytake 1 drop(s) into the eye(s) in the morningazelastine (Optivar) 0.05 % ophthalmic solution 1 drop in the morning and 1 drop before bedtime. Activebisacodyl 5 mg delayed release oral tablet (2 sources)Stimulant LaxativeStart: 08-28-2024 End: 31-38-4196lhqj 1 tablet by mouth oncebisacodyl (Dulcolax) 5 MG EC tablet Indications: Personal history of colon polyps, unspecified , Screen for colon cancer Take 1 tablet (5 mg) by mouth 1 time for 1 dose Do not crush, chew, or split. Take as detailed on clinic hand out for colonoscopy prep 4 tablet 08/28/2024 08/28/2024 ActiveCalcium Phosphate-Vitamin D3 (2 sources)Start: 11-15-0668Lkuvmhm Phosphate-Vitamin D3 Active March 26, 2020 12:00amCalcium Phosphate-Vitamin D3 125 mg calcium- 125 unit Tablet,Chewable (1 source)Start: 55-63-9078Eaipexd Phosphate-Vitamin D3 125 mg calcium- 125 unit Tablet,Chewable Active March 25, 2020 11:00pmComplies with drug therapy cyclobenzaprine hydrochloride 10 mg oral tablet (20 sources)Muscle Relaxanttake 1 tablet by mouth three times daily as needed for muscle spasmscyclobenzaprine (Flexeril) 10 MG tablet Take 10 mg by mouth 3 (three) times a day as needed for muscle spasms. Activeestradiol 0.1 mg/ml vaginal cream (14 sources)EstrogenStart: 78-50-5565Qskirno 0.1 mg/g Cream See Instructions, 42.5 gm, Refill(s) 2, Apply a pea size amount around the urethra and vagina, 3x a wk for 4 wks, then 2x a week afterwards., [facility]/pharmacy #[id number], 163, cm, 8:33:00 EDT, Height/Length Dosing, 115, kg, 06/22/22 8:33:00 EDT, Weight Dosing Start Date: 06/22/22 Status: Ordered Quantity: 42.5 Unit: g Repeat number: 3fluconazole 150 mg oral tablet (2 sources)Azole AntifungalStart: 82-46-0156cunq 1 tablet by mouth onceDiflucan 150 mg Tab 150 mg = 1 tab(s), Oral, Once, # 1 tab(s), Refills(s) 0, Pharmacy: [facility]/pharmacy#[id number], 163, cm, 10/26/22 10:27:00 EST, Height/Length Dosing, 115, kg, 10/26/22 10:27:00 EST, WeightDosing Start Date: 12/14/22 Status: Ordered furosemide 20 mg oral tablet (20 sources)Loop DiureticStart: 41-39-7561lmwd 1 tablet by mouth once daily Furosemide 20 mg tablet Active 20 MG PO Daily 90 August 26, 2025 10:51am Complies with drug therapyStart: 08-20-2025 End: 76-96-3989wszs 1 tablet by mouth once dailyFurosemide 40 mg tablet Discontinued 40 MG PO Daily 30 August 19, 2025 11:00pm August 26, 2025 10:51amStart: 55-80-4259palm 1 tablet by mouth once daily as needed for edema furosemide (Lasix) 40 MG tablet Indications: Bilateral edema of lower extremity Take 1 tablet (40 mg) by mouth Daily as needed (Edema) 11/26/2024 ActiveStart: 07-07-2021 End: 19-55-0866ujhg 1 mg by mouth once dailyLasix 20 mg Tab mg tab(s), Oral, Daily, Refills(s) 0 Start Date: 07/07/21 Status: Ordered Repeat number: 124 hr mirabegron 50 mg extended release oral tablet (5 sources)beta3-Adrenergic AgonistStart: 90-00-1072gygf 1 tablet by mouth once dailyMyrbetriq 50 mg oral tablet, extended release 50 mg = 1 tab(s), Oral, Daily, # 30 tab(s), Refills(s) 11, Pharmacy: [facility]/pharmacy #[id number], 163, cm, 01/04/23 8:04:00 EST, Height/Length Dosing, 115, kg, 01/04/23 8:04:00 EST, Weight Dosing Start Date: 01/04/23 Status: OrderedStart: 43-96-2111gwom 1 tablet by mouth once dailyMyrbetriq 50 mg oral tablet, extended release 50 mg = 1 tab(s), Oral, Daily, # 30 tab(s), Refills(s) 11, Pharmacy: [facility]/pharmacy #[id number], 163, cm, 10/12/22 8:12:00 EST, Height/Length Dosing, 115, kg, 10/12/22 8:12:00 EST, Weight Dosing Start Date: 10/14/22 Status: Orderedmultivitamin with minerals (5 sources)Start: 96-87-5896kwph 1 tablet by mouth once dailymultivitamin with minerals 1 tab, Oral, Daily, Refill(s) 0 Start Date: 04/26/23 Status: Ordered Repeat number: 1Start: 18-58-7484nvvj 1 tablet by mouth once dailymultivitamin with minerals 1 tab, Oral, Daily, Refill(s) 0 Start Date: 04/26/23 Status: Orderednabumetone 750 mg oral tablet (20 sources)Nonsteroidal Anti-inflammatory DrugStart: 22-61-0128fzth 1 tablet by mouth once dailynabumetone 750 mg Tab 750 mg, Oral, Daily, Refills(s) 0 Start Date: 04/26/23 Status: Ordered Repeat number: 1olmesartan medoxomil 40 mg oral tablet (20 sources)Angiotensin 2 Receptor BlockerStart: 22-80-7212sxsc 1 tablet by mouth once dailyOlmesartan 40 mg tablet Active 40 MG PO Daily September 02, 2025 12:00am Complies with drug therapyStart: 01-39-6167gwlj 1 tablet by mouth once dailyolmesartan (Benicar) 40 MG tablet Indications: Essential hypertension Take 1 tablet (40 mg) by mouth Daily 90 tablet 3 10/03/2024 ActiveStart: 03-26-2020 End: 42-67-8605qykb 1 tablet by mouth once dailyOlmesartan (Benicar) 20 mg Tablet Discontinued 20 MG PO Daily March 25, 2020 11:00pm September 02, 2025 3:35pmoxaprozin 600 mg oral tablet (17 sources)Nonsteroidal Anti-inflammatory DrugStart: 81-11-9631jnoj 1 mg by mouth once dailyoxaprozin 600 mg Tab mg tab(s), Oral, Daily, Refills(s) 0 Start Date: 07/07/21 Status: Orderedpantoprazole 40 mg delayed release oral tablet (20 sources)Proton Pump InhibitorStart: 79-01-9950uxwb 1 tablet by mouth twice dailyPantoprazole 40 mg tablet,delayed release (DR/EC) Active 40 MG PO Twice daily September 02, 2025 12:00am Complies with drug therapyStart: 32-83-4882gwak 1 tablet by mouth in the morningpantoprazole (ProtoNix) 40 MG EC tablet Indications: GERD without esophagitis Take 1 tablet (40 mg)by mouth in the morning and 1 tablet (40 mg) before bedtime. 180 tablet 3 10/03/2024 Active phentermine hydrochloride 37.5 mg oral capsule (20 sources)Sympathomimetic Amine AnorecticStart: 07-14-2025 End: 21-43-6375seuh 1 capsule by mouth once daily 30 minutes after breakfast Phentermine 37.5 mg capsule Active 37.5 MG PO Daily August 20, 2025 1:56pm Obesity, class 3 Body mass index [BMI] 40.0-44.9, adult must administer 30 minutes before or 1-2 hours after breakfast Complies with drug therapyStart: 11-27-2024 End: 69-42-6918bjxt 40-44.9 tablets by mouth before mealtimephentermine (Adipex- P) 37.5 MG tablet Indications: Class 3 severe obesity due to excess calories wit h serious comorbidity and body mass index (BMI) of 40.0 to 44.9 in adult ([facility]) Take 1 tablet (37.5 mg) by mouth in the morning. Take before meals. 30 tablet 05/29/2025 06/28/2025 Activepolyethylene glycol 3350 70270 mg powder for oral solution (4 sources)Osmotic LaxativeStart: 08-28-2024 End: 48-95-7784rncu 17 g by mouth oncepolyethylene glycol, PEG, 3350 (Glycolax) 17 GM/SCOOP powder Indications: Colonoscopy Take 238 g bymouth 1 (one) time for 1 dose Take as detailed from clinic hand out for colonoscopy prep 238 g 08/2808/28/2024 Activemicroencapsulated potassium chloride 10 meq extended release oral tablet (20 sources)Start: 42-11-0299ektu 1 tablet by mouth once dailyPotassium Chloride 10 mEq tablet,ER particles/crystals Active 10 MEQ PO Daily September 02, 2025 12:00am Complies with drug therapyStart: 01-21-2025 End: 73-80-9041iarr 1 tablet by mouth once dailypotassium chloride CR (Klor-Con M10) 10 MEQ ER tablet Indications: Bilateral edema of lower extremity Take 1 tablet (10 mEq) by mouth Daily 90 tablet 3 01/29/2025 ActiveStart: 11-01-2024 potassium chloride CR (Klor-Con M10) 10 MEQ ER tablet Take 10 mEq by mouth Daily 11/01/2024 ActiveStart: 52-94-5792bwzl 1 tablet by mouth once dailypotassium chloride CR (Klor-Con) 10 MEQ ER tablet Indications: Bilateral edema of lower extremity Take 1 tablet (10 mEq) by mouth Daily Do not crush, chew, or split. 90 tablet 3 10/03/2024 ActiveStart: 12-10-4333vxge 1 tablet by mouth in the morningpotassium chloride CR (Klor-Con) 10 MEQ ER tablet Indications: Bilateral edema of lower extremity Take 1 tablet (10 mEq) by mouth in the morning. Do not crush, chew, or split.. 90 tablet 3 01/17/2024ActiveStart: 42-39-6902xrfx 20 mg by mouth once dailypotassium chloride 20 mg, Oral, Daily, Refills(s) 0 Start Date: 04/26/23 Status: Ordered Repeat number: 1Start: 86-84-2185yjwx 20 mg by mouth once dailypotassium chloride 20 mg, Oral, Daily, Refills(s) 0 Start Date: 04/26/23 Status: OrderedProtonix 40 mg Tab-DR (7 sources)Start: 65-18-6045expg 1 mg by mouth twice dailyProtonix 40 mg Tab-DR mg tab(s), Oral, BID, Refills(s) 0 Start Date: 07/07/21 Status: OrderedStart: 13-46-0334chop 1 mg by mouth once dailyProtonix 40 mg Tab-DR mg tab(s), Oral, Daily, Refills(s) 0 Start Date: 07/07/21 Status: Orderedsolifenacin succinate 10 mg oral tablet (20 sources)Cholinergic Muscarinic AntagonistStart: 86-26-7678inre 1 tablet by mouth once dailyVesicare 10 mg Tab 10 mg = 1 tab(s), Oral, Daily, # 90 tab(s), Refills(s) 3, Pharmacy: [facility]/pharmacy#[id number], 163, cm, 05/18/22 10:12:00 EDT, Height/Length Dosing, 115, kg, 05/18/22 10:12:00 EDT, WeightDosing Start Date: 05/18/22 Status: Ordered Quantity: 90.0 Unit: tab(s) Repeat number: 4Start: 83-76-0040dqqp 1 tablet by mouth once dailyVesicare 10 mg Tab 10 mg = 1 tab(s), Oral, Daily, # 30 tab(s), Refills(s) 5, Pharmacy: [facility]/pharmacy#[id number], 163, cm, 10/13/21 9:52:00 EST, Height/Length Dosing, 116, kg, 10/13/21 9:52:00 EST, Weight Dosing Start Date: 10/13/21 Status: Orderedsulfamethoxazole 800 mg / trimethoprim 160 mg oral tablet (11 sources)Dihydrofolate Reductase Inhibitor Antibacterial, Sulfonamide AntimicrobialStart: 45-80-5713Vmedjch DS 800 mg-160 mg Tab 1 tab(s), Oral, Daily, 10 tab(s), Refill(s) 1, Take 1 tablet day before treatment, and then 1 tablet day of treatment after treatment, [facility] #[id number], 163, cm, 05/18/22 10:12:00 EDT, Height/Length Dosing, 115, kg, 05/18/22 10:12:00 EDT, Weight Dosing Start Date: 05/18/22 Status: OrderedStart: 94-94-6634Yissqyz DS 800 mg-160 mg Tab 1 tab(s), Oral, Daily, 10 tab(s), Refill(s) 0, Prophylaxis for BCG, take day before and day of, [id number], 163, cm, 02/02/22 8:04:00 EDT, Height/Length Dosing, 115, kg, 02/02/22 8:04:00 EDT, Weight Dosing Start Date: 02/02/22 Status: OrderedStart: 00-17-9733Dbzitlw DS 800 mg-160 mg Tab 1 tab(s), Oral, q12hr, 2 tab(s), Refill(s) 6, [id number], 163,cm, 01/26/22 8:21:00 EDT, Height/Length Dosing, 115, kg, 01/26/22 8:21:00 EDT, Weight Dosing Start D ate: 01/26/22 Status: Orderedtemazepam 30 mg oral capsule (20 sources)BenzodiazepineStart: 46-52-2081skgv 1 capsule by mouth once daily at bedtime as neededTemazepam 30 mg capsule Active 30 MG PO Daily at bedtime as needed September 02, 2025 12:00am Complies with drug therapyStart: 01-21-2025 temazepam (Restoril) 30 MG capsule Indications: Primary insomnia TAKE 1 CAPSULE AT BEDTIME 30 capsule 1 01/21/2025 ActiveStart: 10-03-2024 End: 49-57-2020ysji 1 capsule by mouth at bedtimetemazepam (Restoril) 30 MG capsule Indications: Primary insomnia Take 1 capsule (30 mg) by mouth atbedtime 90 capsule 10/11/2024 01/09/2025 ActiveTirzepatide-Weight Management (Zepbound) 2.5 MG/0.5ML solution auto-injector (2 sources)Start: 32-22-7420Qxhdyauurtn-Weight Management (Zepbound) 2.5 MG/0.5ML solution auto-injector Indications: Class 3 severe obesity due to excess calories with serious comorbidity and body mass index (BMI) of 45.0 to 49 .9 in adult ([facility]) , Obstructive sleep apnea syndrome , Prediabetes Inject 2.5 mg under the skin1 (one) time per week 2 mL 1 12/18/2024 Activetriamcinolone acetonide 5 mg/ml topical cream (9 sources)Corticosteroid End: 73-58-4928jgxrmusaxdeue (Kenalog) 0.5 % cream 1 Application 11/26/2024 Discontinuedvibegron 75 MG Oral Tablet [Gemtesa] (4 sources)Start: 12-00-6364etyo 1 tablet by mouth once dailyGemtesa 75 mg oral tablet 75 mg = 1 tab(s), Oral, Daily, # 30 tab(s), Refills(s) 3, Pharmacy: [facility]/pharmacy #[id number], 163, cm, 01/04/23 8:04:00 EST, Height/Length Dosing, 115, kg, 01/04/23 8:04:00 EST, Weight Dosing Start Date: 01/05/23 Status: Ordered Quantity: 30.0 Unit: tab(s) Repeat number: 4Start: 86-70-9629ynhj 1 tablet by mouth once dailyGemtesa 75 mg oral tablet 75 mg = 1 tab(s), Oral, Daily, # 30 tab(s), Refills(s) 3, Pharmacy: [facility]/pharmacy #[id number], 163, cm, 01/04/23 8:04:00 EST, Height/Length Dosing, 115, kg, 01/04/23 8:04:00 EST, Weight Dosing Start Date: 01/05/23 Status: OrderedVitamin D (20 sources)Start: 56-26-2962Dghpjkp D International_Unit, Oral, qWeek, Refills(s) 0 Start Date: 07/07/21 Status: Ordered Repeat number: 1Start: 31-17-0679Pdfucrx D International_Unit, Oral, qWeek, Refills(s) 0 Start Date: 07/07/21 Status: Ordered Completed/Discontinued Medications MedicationDrug Class(es)DatesSig (Normalized)Sig (Original)anastrozole 1 mg oral tablet (3 sources)Aromatase InhibitorStart: 03-26-2020 End: 79-44-0382adbz 1 tablet by mouth once dailyAnastrozole 1 mg Tablet Discontinued 1 MG PO Daily March 25, 2020 11:00pm March 27, 2020 8:54am atovaquone 250 mg / proguanil hydrochloride 100 mg oral tablet (3 sources)Antimalarial, AntiprotozoalStart: 06-03-2024 End: 51-98-2012enqm 1 tablet by mouth once dailyatovaquone-proguanil (Malarone) 250-100 MG tablet Indications: Need for malaria prophylaxis Take 1 tablet by mouth Daily Start 2 days prior to travel and continue for 7 days after returning home. 20 tablet 06/03/2024 08/28/2024 Discontinued (Therapy completed) cephalexin 500 mg oral capsule (3 sources)Cephalosporin AntibacterialStart: 02-05-8180mbhy 1 tablet by mouth once dailyKeflex 500 mg Cap 500 mg = 1 cap(s), Oral, Daily, Take 1 tablet morning of procedure., # 1 tab(s), Refills(s) 0, Pharmacy: [facility]/pharmacy #[id number], 163, cm, 06/22/22 8:33:00 EDT, Height/Length Dosing, 115, kg, 06/22/22 8:33:00 EDT, Weight Dosing Start Date: 06/22/22 Status: Orderedetodolac 400 mg oral tablet (3 sources)Nonsteroidal Anti-inflammatory DrugStart: 03-26-2020 End: 79-66-7157krld 1 tablet by mouth three times dailyEtodolac (Lodine) 400 mg Tablet Discontinued 300 MG PO Three times daily March 25, 2020 11:00pm 2020 10:44amletrozole 2.5 mg oral tablet (20 sources)Aromatase InhibitorStart: 03-26-2020 End: 90-04-7589vxgu 1 tablet by mouth once dailyLetrozole (Femara) 2.5 mg Tablet Discontinued 2.5 MG PO Daily 90 90 3 April 23, 2021 12:56pm September 02, 2025 3:34pmomeprazole 40 mg delayed release oral capsule (3 sources)Proton Pump InhibitorStart: 03-26-2020 End: 66-37-0298rryt 1 capsule by mouth once dailyOmeprazole 40 mg Capsule,Delayed Release(Dr/Ec) Discontinued 40 MG PO Daily March 25, 2020 11:00pm September 02, 2025 3:35pm Problems Active Problems Problem ClassificationProblemDateDocumented DateEpisodic/ChronicAcquired foot deformities (20 sources)Plantarflexion deformity of right foot; 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: [Other acquired deformities of right foot]Onset: 680055-98-9081AypaswxeLmiyxb of bladder (20 sources)Malignant neoplasm, overlapping lesion of bladder; 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: [Malignant neoplasm of overlappingsites of bladder]Onset: 01-26-2022 Resolved: 88-89-1422YbfwquzJencua of bladder (7 sources)Personal history of malignant neoplasm of bladder; 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: [History of malignant neoplasm of bladder]Onset: 25-59-6506FvzhclaeZilrtb of breast (20 sources)Personal history of malignant neoplasm of breast; 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: [History of malignant neoplasm of breast]Onset: 647535-36-4084Ylwouqvy Comment on above:Problem List clean-up per request of Phys. EHR CmteCancer; other and unspecified primary (1 source)H/O: malignant begeuxac36-52-9339QcooyqxnDepocmf dysrhythmias (4 sources)Ventricular premature depolarization; 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: [Atrial premature depolarization]Onset: 35-15-1757BrboxjcQueyhieu mellitus without complication (20 sources)Prediabetes; 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: [Prediabetes]Onset: EpisodicDiseases of mouth; excluding dental (20 sources)Oral lesion; Translations: [Unspecified lesions of oral mucosa] Onset: 08-22-2023 Resolved: 538872-94-6911JhnierafYsszbvgse of lipid metabolism (20 sources)Dyslipidemia; Translations: [Mixed hyperlipidemia]Onset: 01-02-2024 14-64-4142HwgttimKonegmecpr disorders (20 sources)Gastroesophageal reflux disease without esophagitis; Translations: [Gastro-esophageal reflux disease without esophagitis]Onset: 11-15-2023 23-84-8882BgwialbZtwefdikr hypertension (20 sources)Essential (primary) hypertension; Translations: [Essential hypertension]Onset: 665357-26-2546IfluckgLamllnotxtvys symptoms and ill- defined conditions (20 sources)Incontinence; Translations: [Mixed incontinence]Onset: 01-09-2023 82-21-0653FkwiqgaYwnfgytao (19 sources)Steatohepatitis; Translations: [Nonalcoholic steatohepatitis ([facility]ON)] Onset: 340909-08-1258RccwjjyCwueutqiktlhe mental health disorders (2 sources)Primary insomnia; Translations: [Primary insomnia]98-83-2049Ddtyajz Osteoarthritis (20 sources)Primary generalized (osteo)arthritis; Translations: [Unspecified osteoarthritis, unspecified site]Onset: 04-12-2017 Resolved: 66-74-4385ApbycrvUpsqm aftercare (1 source)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 superintendent terminal (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; Translations: [[employer] LAB TECHNICIAN CURRENT DRUG THERAPY]Onset: 49-92-9723OjcbqgakEfzxy aftercare (1 source)shelter (current) use of aspirin; Translations: [[employer] LAB TECHNICIAN CURRENT USE OF ASPIRIN]Onset: 74-57-7754HyjkzeerKyuji and ill-defined heart disease (2 sources)Coronary artery aneurysm; Translations: [Coronary artery aneurysm] Onset: 97-02-2237LtkpiwoJciwp and unspecified benign neoplasm (2 sources)History of polyp of colon; Translations: [Personal history of colon polyps, unspecified]76-23-1387YqhjnrkfBbrit diseases of bladder and urethra (13 sources)Detrusor overactivity; Translations: [Overactive bladder]Onset: 98-02-3407GittntpKsiek diseases of bladder and urethra (20 sources)Overactive bladder; Translations: [Overactive bladder]Onset: 05-05-2023 Resolved: 526425-90-6083QhedzucSorjv diseases of bladder and urethra (1 source)Overactive bladder; Translations: [OVERACTIVE BLADDER]Onset: 05-55-5954WbnryexPzxcf nutritional; endocrine; and metabolic disorders (20 sources)Body mass index 40+ - severely sdbfu04-09-5683IplygvbLqusg nutritional; endocrine; and metabolic disorders (1 source)Obesity, unspecified; Translations: [OBESITY UNSPECIFIED]Onset: 22-69-6607YikvvawXmxqs nutritional; endocrine; and metabolic disorders (1 source)Body mass index (BMI) 40.0-44.9, adult; Translations: [BODY MASS INDEX BMI 40.0-44.9 ADULT]Onset: 51-52-3279RbdaatuPsbcu nutritional; endocrine; and metabolic disorders (1 source)Morbid (severe) obesity due to excess calories; Translations: [MORBID SEVERE OBES D/T EXCESS ELDA]Onset: 94-63-8755HyxbdtfJqdet nutritional; endocrine; and metabolic disorders (7 sources)Morbid obesity; Translations: [Morbid (severe) obesity due to excess calories]Onset: 531773-47-8581FngeeyfGsgrt nutritional; endocrine; and metabolic disorders (20 sources)Obesity; Translations: [Obesity, unspecified]Onset: 06-05-2020 Resolved: 644778-12-1659RaaezbqAixfx nutritional; endocrine; and metabolic disorders (20 sources)Severe obesity; Translations: [Class 3 severe obesity due to excess calories with serious comorbidity and body mass index (BMI) of 45.0 to 49.9 in adult ([facility])]Onset: 655015-25-7411CrzfrqnTspxl screening for suspected conditions (not mental disorders or infectious disease) (20 sources)Encounter for screening mammogram for malignant neoplasm of breast; Translations: [Cardiovascular stress test abnormal]Onset: 06-13-2017 Resolved: 23-13-3128FwbgzakxYhnsxgzc codes; unclassified (20 sources)Obstructive sleep apnea syndrome; Translations: [Obstructive sleep apnea (adult) (pediatric)]Onset: 008177-71-5252AimdwymSwawtrjt codes; unclassified (1 source)Acquired absence of other specified parts of digestive tract; Translations: [ACQ ABSENCE OTH PART DIGESTV TRACT]Onset: 66-61-4798Bfepafpe Residual codes; unclassified (1 source)Acquired absence of both cervix and uterus; Translations: [ACQUIRED ABSENCE BOTH CERVIX AND UTERUS]Onset: 08-17-9547DwwvfaghBbqdfvfia and history of mental health and substance abuse codes (20 sources)Ex-smoker; Translations: [Personal history of nicotine dependence] Onset: 01-09-2023 Resolved: 912606-86-9036OsarywjoHxbwakfmvxlt (1 source)CONTACT W/AND (SUSP) EXPOS COVID-19; Translations: [CONTACT W/AND (SUSP) EXPOS COVID-19]Onset: 68-04-6836Zrohhdz tract infections (20 sources)Urinary tract infectious disease; Translations: [Urinary tract infection, site not specified]Onset: [id number] Past or Other Problems Problem ClassificationProblemDateDocumented DateEpisodic/ChronicBacterial infection; unspecified site (20 sources)Infection due to enterococcus; Translations: [Streptococcal infection, unspecified site]Onset: 05-05-2023 Resolved: 950329-41-6193DrfdepjoJvevre of breast (20 sources)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; Translations: [Malignant neoplasm of central portion of female breast]Onset: 06-13-2017 Resolved: 836085-59-8737GcdcagdXvhpymh dysrhythmias (20 sources)Palpitations; Translations: [Palpitations]Onset: 11-17-2021 Resolved: 591208-32-2231AxateotlJ Codes: Fall (1 source)Fall on same level from slipping, tripping and stumbling with subsequent striking against unspecified object, initial encounter; Translations: [FALL SAME LVL SLIP STRK UNS OBJ INT]Onset: 32-71-6463JxytqwgcTaigr and electrolyte disorders (1 source)Dehydration; Translations: [DEHYDRATION]Onset: 76-69-1795Caaeqhae Fracture of upper limb (1 source)Unspecified fracture of fourth metacarpal bone, right hand, initial encounter for closed fracture; Translations: [UNS FX FOURTH MC BN RH INIT CLOS] Onset: 18-53-5045IzhhhraqInezngwwabnqi symptoms and ill-defined conditions (20 sources)History of urinary tract infection; Translations: [Personal history of urinary (tract) infections]Onset: 01-26-2022 Resolved: 22-48-6909FfeltnfuVipdvxnnnm infection (1 source)Rotaviral enteritis; Translations: [ROTAVIRAL ENTERITIS]Onset: 14-73-3637UkdmqwjiFsnzxfryol disorders (20 sources)Atrophic vaginitis; Translations: [Postmenopausal atrophic vaginitis]Onset: 06-22-2022 Resolved: 97-97-5639GrhpajiKowb disorders (3 sources)Mood disordersOnset: Nausea and vomiting (1 source)Nausea with vomiting, unspecified; Translations: [NAUSEA WITH VOMITING UNSPECIFIED]Onset: 46-67-8031GajfwnleXrjqgtcbj of unspecified nature or uncertain behavior (5 sources)Neoplasm of unspecified behavior of bladder; Translations: [NEOPLASM UNS BEHAVIOR OF BLADDER]Onset: 39-15-9345KaqdgnskYafdi acquired deformities (20 sources)Dean legged; Translations: [Varus deformity, not elsewhere classified, left knee]Onset: 08-22-2023 Resolved: 192253-92-5520KpzdnteePlenu aftercare (9 sources)Long-term current use of drug therapy; Translations: [Other [place] [facility] (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]Onset: 350332-40-1369JhtmladiMtvpu and ill-defined heart disease (20 sources)Aneurysm of coronary vessels; Translations: [Coronary artery aneurysm]Onset: 01-02-2024 Resolved: 758286-93-5856QxntrfyHgcnd and unspecified benign neoplasm (2 sources)Benign neoplasm of colon, unspecified; Translations: [Benign neoplasm of colon, unspecified]Onset: 45-55-7254GppbopviRshse connective tissue disease (20 sources)History of total knee arthroplasty; Translations: [Presence of left artificial knee joint]Onset: 08-22-2023 Resolved: 645170-78-2150ClethfnIouhw connective tissue disease (3 sources)Pain in right hand; Translations: [PAIN IN RIGHT HAND]Onset: 06-30-8346LadyrqpsYrjqo connective tissue disease (20 sources)Pain of left calf; Translations: [Pain in left lower leg]Onset: 08-22-2023 Resolved: 460922-87-5430SrbjfueeHqcwy gastrointestinal disorders (3 sources)Diarrhea, unspecified; Translations: [DIARRHEA UNSPECIFIED]Onset: 36-82-0029IlbwkgxoUjdgv lower respiratory disease (4 sources)Respiratory disorder, unspecified; Translations: [RESPIRATORY DISORDER UNSPECIFIED]Onset: 03-03-6177KndrawlfWwpis lower respiratory disease (20 sources)Dyspnea; Translations: [Dyspnea, unspecified]Onset: 06-05-2020 Resolved: 263769-94-6217RtmwcvyuUbhvk lower respiratory disease (2 sources)Shortness of breath; Translations: [Shortness of breath]Onset: 92-75-3961ZuhzecctMyehj lower respiratory disease (2 sources)Other forms of dyspnea; Translations: [Other forms of dyspnea]Onset: 95-69-7647ZcgefmagUblta non-traumatic joint disorders (20 sources)Pain in right knee; Translations: [Pain in joint, lower leg]Onset: 08-22-2023 Resolved: 532759-73-5889BubtfjuzGlkztlykk; thrombophlebitis and thromboembolism (1 source)Personal history of other venous thrombosis and embolism; Translations: [PERS HX OTH VENOUS THROMBOSIS AND EMBO]Onset: 40-56-9491Vzohllkr Residual codes; unclassified (1 source)Family history of malignant neoplasm of breast; Translations: [FAMILY HX MALIG NEOPLASM OF BREAST]Onset: 56-43-7483BrmdpnuxQdmoozek codes; unclassified (20 sources)Bilateral lower limb edema; Translations: [Localized edema]Onset: 109956-01-8467DagrrhxgSszvsfrl codes; unclassified (20 sources)Prevention status; Translations: [Need for malaria prophylaxis] Onset: 05-21-2024 Resolved: 856804-96-7835BxbtffqqZgvdfaoxqew; intervertebral disc disorders; other back problems (20 sources)Chronic neck pain; Translations: [Cervicalgia]Onset: 11-15-2023 Resolved: 624683-72-6334LxblkjcjXbazudzndqm injury; contusion (20 sources)Contusion of right knee; Translations: [Contusion of right knee, initial encounter]Onset: 08-22-2023 Resolved: 860334-67-5312Pbsnxmjx Results Test NameValueInterpretationReference RangeFacilityUrine Cytology ([facility])on [id number] CytologyDiagnosis InfoInvalid Interpretation Ambika [facility] CampusComment on above:Result Comment: A:Urine,Bladder Wash:Voided Interpretation - Adequate cellularity for evaluation. CPT 31038 MicroScopic Description - Adequacy - Gross Description Site ID:A color no color fixative Alcohol Specimen designated Bladder Wash received in alcohol preservative and labeled with the patient???s name, consists of 80ml clear no color fluid. Electronically signed by : on: 07/29/2025 12:15:42Performed By: #### [id number] #### [facility] [address], [place] [address]Ppxyccydyj Visit Summaryon 19-92-5526Hxxtlcvlvd Visit Summary Ambulatory Visit Summary DANIELLA BEJARANO :1960 Visit Date:07/23/2025 Ambulatory Visit Instructions Your Diagnosis History of bladder cancer OAB (overactive bladder) Vaginal atrophy Your Care Team Attending Physician - Reza JAMES, Dina Oconnell Primary Care Physician - BAYRON SINGH MD This Is Your Medications List estradiol topical (Estrace 0.1 mg/g Cream) Contact prescribing physician if questions or concerns aspirin (aspirin 81 mg Oral EC Tab) ergocalciferol (Vitamin D) furosemide (Lasix 20 mg Tab) multivitamin with minerals nabumetone (nabumetone 750 mg Tab) olmesartan (Benicar 40 mg Tab) pantoprazole (Protonix 40 mg Tab-DR) potassium chloride [Image Removed: STOP]Stop taking these medications solifenacin (Vesicare 10 mg Tab) vibegron (Gemtesa 75 mg oral tablet) Procedures Performed Cystoscopy and biopsy of bladder (03/13/2023), Cystoscopy and transurethral resection of bladder tumor (12/28/2022), Cystoscopy (12/07/2022), Cystoscopy and transurethral resection of bladder tumor (12/22/2021), TURBT - Transurethral resection of bladder tumor (07/26/2021), Cystoscope (07/14/2021),Bilateral prosthetic arthroplasty of knees, Breast surgery, Cholecystectomy, History of hysterectomy., Ts - Tonsillectomy. Discharge Vitals Temperature (Tympanic) 37 ???C Heart Rate (Peripheral) 76 Respiratory Rate 16 Blood Pressure 138/76 Height 162 cm Height 64 in Weight 124.0 kg Weight 273.373 lb BMI 47.25 What to do next You Need to Schedule the Following Appointments [...] Mouth Every week Contact prescribing physician if questionsor concerns Unchanged furosemide (Lasix 20 mg Tab) By Mouth Every day Contact prescribing physician if questions or concerns Unchanged multivitamin with minerals 1 tab By Mouth Every day Contact prescribing physician if questions or concerns Unchanged nabumetone (nabumetone 750 mg Tab) 750 Milligram By Mouth Every day Contact prescribing physician if questions or concerns Unchanged olmesartan (Benicar 40 mg Tab) By Mouth Every day Contact prescribing physician if questions or concerns Unchanged pantoprazole (Protonix 40 mg Tab-DR) By Mouth 2 times a day Contact prescribing physicianif questions or concerns Unchanged potassium chloride 20 Milligram By Mouth Every day Contact prescribing physician if questions or concerns What How Much When Comments Stop Taking solifenacin (Vesicare 10 mg Tab) 1 Tablets By Mouth Every day Stop Taking vibegron (Gemtesa 75 mg oral tablet) 1 Tablets By Mouth Every day Medications and Immunizations Administered Given lidocaine Top 2% Gel w/Appl 6 mL, 6 mL, Topical. For: History of bladder cancer, OAB (overactive bladder), Vaginal atrophy Allergies Percocet (Headache) Problems Ongoing - Any problem that you are currently receiving treatment for. Abnormal urinary stream Bladder cancer BMI 40.0-44.9, adult Enterococcus faecalis infection Former smoker History of bladder cancer History of UTI Mixed incontinence Morbid obesity with BMI of 45.0-49.9, adult OAB (overactive bladder) Urothelial carcinoma of bladder Vaginal atrophy Patient Survey You may receive a survey via text or e-mail asking about your office visit. Please share your experience with us by completing your survey. We appreciate your feedback and thank you for choosing us for your care. Education Materials Cancer Screening: Female A cancer screening is a test or exam that checks for cancer. Work with your health care provider tocreate a cancer screening schedule that protects your health. Who should have screening? All females should be considered for screening of certain cancers, including breast cancer, cervical cancer, colorectal cancer, endometrial cancer, lung cancer, and skin cancer. Your health care provider may recommend screenings for other types of cancer if: ??? You have had cancer before. ??? You have a family member with cancer. ??? You have genes that could increase the risk of cancer. ??? You have risk factors for certain cancers, such as current or past use of tobacco products or beingoverweight. What are the benefits of screening? Cancer screening is done to look for cancer in the very early stages, before it spreads and becomesharder to treat and before you would start to notice symptoms. Finding cancer early improves the chances of successful treatment. It may save your life. When should I be screened for cancer? When you should be s (more content not included)...[facility] 07-15-4672VngdlbocoDbfjbyygg From: Jessica Johnson To: ALEX Cobb; Sent: 07/23/2025 11:34:31 EDT Show up: 01/20/2026 11:34:00 EDT Subject: 6 Month Cysto/CTU Due Date/Time: 02/20/2026 11:34:00 EDT Reminder/Recall Per [facility], patient to have repeat Cysto and CTU done in 6 months, however patient prefers to wait until [employer] returns from maternity leave. ([facility] approved next Cysto to be done in February 2026.) CTU will need to be ordered and sent to location of patient's choice.Normal [facility] HospitalUrine Cytology ([facility])on [id number] Method of ExtractionBladder [facility] CenterComment on above: Performed By: #### [id number] #### [facility] [address], [place] [address]ML Number of Oqmm0Veochzn Interpretation [facility] HospitalComment on above:Performed By: #### [id number] #### [facility] [address], [place] [address]EJ SpecimenBladder WashNoTrumbull Regional Medical CenterComment on above:Performed By: #### [id number] #### [facility] [address], [place] [address]XS Type of ServiceTechnical OnlyNoTrumbull Regional Medical CenterComment on above:Performed By: #### [id number] #### [facility] [address], [place] [address]Ulzroop Office/Clinic Noteon 44-49-3867Nxvqqxp Office/Clinic NoteUrology Office/Clinic Note Chief Complaint cysto HPI Staff Cysto/Cytol History of Present Illness Tests reviewed: CTU, Cytology I have reviewed the previous health record information and history for this patient from Dr. Cobb. I have reviewed and verified the staff HPI to be accurate for this encounter. Review of Systems PHQ Score Initial Depression Screen Score: 0 SCORE ROS - Provider Constitutional: denies weight loss, denies hot flashes. Eyes: denies eye problems. Gastrointestinal: denies nausea, denies vomiting. Cardiovascular: denies chest pain or angina. Integumentary: no dryness Musculoskeletal: denies musculoskeletal symptoms. ENMT: denies otolaryngeal symptoms. Respiratory: no shortness of breath. Heme/Lymph: denies easy bleeding tendency, denies easy bruising tendency. Psychiatric: no confusion, no anxiety. Genitourinary: See HPI. Physical Exam Vitals & Measurements T: 37 ???C(Tympanic) HR: 76(Peripheral) RR: 16 BP: 138/76 HT: 64 in HT: 162 cm WT: 124.0 kg WT: 273.373 lb BMI: 47.25 General Appearance: alert, no distress, well nourished, well developed adult. Procedure Operative Information Anesthesia Type: Local Procedure: Local Cystoscopy Complications: None Surgical risks, benefits, details of the procedure have been explained to the patient. Full informed consent has been obtained. Intraoperative Information Prepped: Patient is brought back to the endoscopy suite. Patient is placed in supine/frog leg position. Patient prepped in the usual fashion with Hibiclens. 2% Xylocaine Jelly is placed per Urethra. After waiting several minutes, the Cystoscope is introduced. The Urethra is: Normal The Bladder: No tumors, stones, foreign bodies, or lesions, Well-healed resected sites x 3 on the right lateral, posterior wall/dome, Trabeculated: 1-2+ The Ureteral orifices: Show efflux of clear urine Specimens Removed: Bladder wash sent for Cytology test Removal: Cystoscope is removed. The patient tolerated it well. Postoperative Information Patient is discharged home. Follow up arranged. Assessment/Plan 65-year-old female former smoker with high risk, HG T1 NMIBC, BCG unresponsive CIS initially diagnosed 07/26/2021 s/p induction BCG, recurrence of HG Ta s/p 2nd induction BCG and maintenance x 2. Herefor 6m surveillance cysto. 1. History of bladder cancer (Z85.51: Personal history of malignant neoplasm of bladder) 06/2021 CTU: left posterior filling defect in bladder, no upper tract filling defects, no LAD. CXR neg. High-grade T1 papillary urothelial carcinoma S/P TURBT 07/26/21, re-TURBT 08/25/21 negative for disease, muscle present and involved. s/p induction BCG 10/27/2021 HG Ta recurrence [...] - neg Referred to Dr. Zelaya at [facility] given limitations here for blue light cystoscopy to further evaluateand resect possible CIS. Reviewed external [facility] Dr. Zelaya records: BCG unresponsive CIS [facility] review of our path TURBT 12/28/22 confirmed very minute focus CIS from right posterior wall 03/13/23 @ [facility] BL RPG, TURBT - neg 04/28/23-06/05/23 - induction intravesical gemcitabine/docetaxel weekly x 6 wks (1000mg gemcitabine in60 ml sterile water, followed by 37.5 mg docetaxel in 53.75 ml NS) 07/07/23- monthly maintenance intravesical gem/doce x 12, completed 05/08/24 07/10/24 Cysto/cytology -neg. Prior resection sites at posterior, right lateral and left lateral wall noted. 09/2024- cysto with Dr. Zelaya Per Dr. Zelaya, no need for continued maintenance intravesical gem/doce CTU due 12/2024, Cysto q3m until 12/2024, then q6m x 3 yrs 01/13/25: Cysto- neg/ Cytology -Atypia. CTU 01/27/25 [facility] - Neg. A few small nonenhancing fluid density cysts. The largest within the posterior aspect of the left upper pole measures approximately 2.5 cm. Pt had 6 mo IO surveillance cysto today wo complications. Will send bladder wash specimen for cytology and call pt if positive. (more content not included)... [facility] CampusComment on above:Result Comment: Electronically Signed By: Dina Cobb MD\.br\Date and Time Signed: 07/23/25 12:05 EDT\.br\Electronically Co-Signed By: Mahi Casey\.br\Date and Time Co- Signed: 07/23/25 11:29 EDT\.br\Electronically Co-Signed By: Mahi Casey\.br\Date and Time Co-Signed: 07/23/25 11:33 EDTALL CBC WITH AUTO DIFFon [id number] ABSOLUTE CZPJ3OJBF HealthcareBasophils/100 WBC (Bld)0.6 %0.2 - 2.0 %[facility] CampusEosinophils/100 WBC (Bld)2.4 %0.9 - 7.0 %[facility] Erythrocyte distribution width (RBC) [Ratio]13.6 %11.0 - 15.0 %[facility] Hematocrit (Bld) [Volume fraction]37.9 %36.0 - 48.0 %[facility] CampusHemoglobin (Bld) [Mass/Vol]12.1 g/dL12.0 - 16.0 g/dLResearch Medical Center-Brookside CampusIMMATURE GRANULOCYTES ABS AUTO0.01NOLafayette Regional Health CenterImmature granulocytes/100 WBC (Bld)0.2 %0.0 - 0.5 % [facility] CampusLYMPHOCYTES ABSOLUTE AUTO1.3NOLafayette Regional Health CenterLymphocytes/100 WBC (Bld)26.6 %20.5 - 60.0 %[facility] Medical CenterH (RBC) [Entitic mass]28.3 pg26.7 - 34.0 pgWashington University Medical CenterHC (RBC) [Mass/Vol]31.9 g/dL29.9 - 35.2 g/dLWashington University Medical CenterV (RBC) [Entitic vol]88.6 fL81.0 - 99.0 fLResearch Medical Center-Brookside CampusMONOCYTES ABSOLUTE AUTO0.4NOLafayette Regional Health CenterMonocytes/100 WBC (Bld)8.5 %1.7 - 12.0 %[facility] CampusNEUTROPHILS ABSOLUTE AUTO3.1NOMS HealthcareNeutrophils/100 WBC (Bld) 61.7 %43.0 - 75.0 %[facility]ok[facility] CampusPlatelet mean volume (Bld) [Entitic vol]9.7 fL 9.5 - 13.5 fLResearch Medical Center-Brookside CampusTB EO #0.1NOMS Henry County HospitalTB SGV035SILWCameron Regional Medical Center RBC4.28NOUniversity Health Truman Medical Center TWN9WVPULafayette Regional Health CenterCLINISYNCNCANCER TREATMENT CENTERS OF [facility] Healthcare CHEMISTRYOrdered By: SYSTEM SYSTEM on 20-36-5321Selfavyxna [Mass/Vol]0.9 mg/dL Normal0.5 - 1.3 mg/dLRemisol EgnfoFTZ36 mL/min/1.73 u9Xprgrf>=59mL/min/1.73 m2 Remisol ChemCT Urogramon [id number] UrogramExam Date/Time: 01/27/2025 12:28 EDT Reason for Exam: [...] aneurysm or dissection. Mild calcified atherosclerotic plaquing. Mesentery/peritoneum/retroperitoneum: No ascites, organized fluid collection, inflammatory changes, or suspicious mass. Pelvis: Previous hysterectomy.. Musculoskeletal: No acute osseous findings identified. Mild to moderate degenerative changes. Lower thorax: Noncontributory. Report Ordering Provider: Dina Cobb FINAL REPORT Dictated: 01/27/2025 3:46 pm Albert Costello MD Signed (Electronic Signature): 01/27/2025 3:46 pm Signed by: Albert Costello MD Transcribed by: REFUGIO Technologist: Jing [facility] CampusCreatinine on 96-69-4239Yepunljiys [Mass/Vol]0.9 mg/dLNormal0.5-1.3FProMedica Defiance Regional HospitalComment on above:Performed By: #### [id number] #### [facility] [address], [place] [address]bHNPkl [id number] mL/min/1.73 i9Nndtpx>=59Pro[facility]acon[facility] HospitalComment on above:Performed By: #### [id number] #### [facility] [address], [place] [address]Mfkql Cytology ([facility])on 08-64-2694Qxaqeyxpkqs exam Cytology (U) [Interp]Diagnosis InfoInvalid Interpretation CodeProtestant Deaconess Hospital Comment on above:Result Comment: A:Urine,Urine:Voided Interpretation - Atypical urothelial cells with degenerative changes. CPT 89162 MicroScopic Description - Adequacy - Gross Description Site ID:A color Colorless fixative Alcohol Specimen designated Urine received in alcohol preservative and labeled with the patient???s name, consists of 80ml clear colorless fluid. Electronically signed by : on: 01/17/2025 09:58:31Performed By: #### [id number] #### [facility] [address] [place] [address]Wdgvlfcxx Patient Summaryon 89-68-1708Iirlcfsvi Patient Summary Inpatient Patient Summary [address] [address] Clinical Summary Person Information Name: DANIELLA BEJARANO Age: 64 Years : 1960 Sex: Female PCP: BAYRON SINGH MD Marital Status: Race: White Ethnicity: Non- or Language: Frisian Visit Id: Visit Reason: BLADDER CANCER Speciality: Acuity: Enc Type: Outpatient Med Service: Surgery Arrival: 01/13/2025 10:13:31 Discharge: Dispo Type: Address: [address] [place] [phone] Provider Notes: Diagnosis: History of bladder cancer [...] to schedule follow up: CTU now at [facility]. Surveillance cystoscopy and cytology in 6 months Patient Education Information: EU - Cystoscopy Discharge Instructions (CUSTOM)[facility] Main OR Intraoperative Recordon [id number] OR Intraoperative RecordMain OR Intraoperative Record IntraOp Document Type FTURO Summary Primary Physician: Dina Cobb MD Finalized Date/Time: 01/13/25 11:19:27 Pt. Name: DANIELLA BEJARANO Chris AllanB./Sex: 1960 Female Med Rec #: [id number] Physician: iDna Cobb MD Financial #: [id number] Pt. Type: O Room/Bed: / Admit/Disch: 01/13/25 10:21:00 - Institution: Case Times FTURO Entry 1 Patient Times In Room 01/13/25 11:10:00 Out Room 01/13/25 11:23:00 Procedure Times Start 01/13/25 11:15:00 Stop 01/13/25 11:18:00 Anesthesia Times Last Modified By: Saul Mercado Ii 01/13/25 11:18:34 Case Attendance FTURO Entry 1 Entry 2 Entry 3 Case Attendee Reza JAMES, Dina Beard DATABASE SOFTWARE TECHNICIAN, Saul Macias Ii Role Performed Surgeon - Primary Scrub - Primary Revenue Director - Primary Time In 01/13/25 11:10:00 01/13/25 [...] Position Verified Availability Equipment, Medication Time Out Dina Cobb MD, Verified (If Participants Chirag ESTEVES, Wendy Applicable) Rogelio Perez Alfons Ii F Time Out Complete 01/13/25 11:10:00 Allergies Reviewed? Yes Allergies Reviewed Self/Patient With Body Position Frog Legged Prep Area perineum Prep Agents Betasept Skin. Condition Intact, [place], Warm, & Description unchanged Dry Specimens Comment [...] Mercado Ii 01/13/25 11:18 Saul Mercado Ii 01/13/25 11:18 Saul Mercado Ii F 01/13/25 11:19Emily [facility] CampusMain OR Preoperative Recordon [id number] OR Preoperative RecordMain OR Preoperative Record Holding Area Document Type FTURO Summary Primary Physician: Dina Cobb MD Finalized Date/Time: 01/13/25 10:57:33 Pt. Name: DANIELLA BEJARANO Chris Araya/Sex: 1960 Female Med Rec #: [id number] Physician: Dina Cobb MD Financial #: [id number] Pt. Type: O Room/Bed: / Admit/Disch: 01/13/25 [...] or her perioperative plan of care The patient'sright to privacy is maintained Surgery Checklist FTURO [...] Allen 01/13/25 10:55 Jennifer Allen 01/13/25 10:56 Alejandro Jennifer E 01/13/25 10:57 Jennifer Allen 01/13/25 10:57Eric [facility] CampusOperative Reporton [id number] Report Operative Report Patient: DANIELLA BEJARANO Age: 64 years Sex: Female : 1960 Associated Diagnoses: None Author: Dina Cobb MD Procedure Operative Information Details: Date/ Time: 01/13/2025 11:25:00. Pre-Op Dx: Hx of Bladder CA - Z85.51. Post-Op Dx: Same. Anesthesia Type: Local. Procedure: Local Cystoscopy. Complications: None. Risks/Benefits/Informed Consent: Surgical risks, benefits, details of the [...] Postoperative Information Discharge: Follow up arranged, Review [facility] Dr. 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, call with results -Surveillance cystoscopy and cytology in 6 months..[facility] CampusComment on above:Result Comment: Electronically Signed By: Dina Cobb MD\.br\Date and Time Signed: 01/13/25 11:28EDTOutpatient Surgery Discharge Instructionon [id number] Surgery Discharge InstructionOutpatient Surgery Discharge Instruction [place] [id number] Patient Discharge Instructions PERSON INFORMATION Name: DANIELLA [...] to schedule follow up: CTU now at [facility]. Surveillance cystoscopy and cytology in 6 months [...] were given Patient Signature Date Clinican/Nurse Signature Date You may receive a survey from Genoveva Suarez asking you to rate your care experience. Your feedback is important and will help us understand what we do well and how we can improve the quality of care we provide to you, your loved ones and our community. It???s an honor to serve you. Thank you for choosing [facility] Main CampusUrine Cytology ([facility])on 77-05-9232ID Method of ExtractionVoided [facility] CampusComment on above:Performed By: #### [id number] #### [facility] Laboratory [address] [place], [place] [address]QM Number of Bsxn3Xmxjfxv Interpretation CodeProtestant Deaconess HospitalComment on above:Performed By: #### [id number] #### [facility] Laboratory [address] [place], [place] [address]AC SpecimenUrineNormThe Jewish HospitalComment on above:Performed By: #### [id number] #### [facility] [address] [place], [place] [address]YK Type of ServiceTechnical OnlyNoTrumbull Regional Medical CenterComment on above:Performed By: #### [id number] #### [facility] [address] [place], [place] [address]IV ABDOMEN WO/W CONon 26-21-6142[place] [address] [place] Scan Report Signed Patient: DANIELLA BEJARANO MR#: [id number] : 1960 Acct:[id number] Age/Sex: 64 / F ADM Date: 12/06/24 Loc: CT Attending Dr: Bayron Singh M.D. Ordering Physician: Bayron Singh M.D. Date of Service: 12/06/24 Procedure(s): CT abdomen wo/w con Accession Number(s): [id number] cc: Bayron Singh M.D. [place] [address] Patient Name: DANIELLA BEJARANO MRN: TBH:[id number] date: 1960 Sex: F Assigned Patient Location: CT Current Patient Location: Accession/Order Number: [id number] Exam Date: 12/06/2024 13:05 Report Date: 12/09/2024 [...] Signed By: 12/09/24 1533 DD/ 1531 TD/TT: Salon Receptionist:LEWISHRadiology, Radiologist, - 12/09/2024 [place] [address] CT Scan Report Signed Patient: DANIELLA BEJARANO MR#: [id number] : 1960 Acct:[id number] Age/Sex: 64 / F ADM Date: 12/06/24 Loc: CT Attending Dr: Bayron Singh M.D. Ordering Physician: Bayron Singh M.D. Date of Service: 12/06/24 Procedure(s): CT abdomen wo/w con Accession Number(s): [id number] cc: Bayron Singh M.D. The [address] [address] Patient Name: DANIELLA BEJARANO MRN: TBH:[id number] date: 1960 Sex: F Assigned Patient Location: CT Current Patient Location: Accession/Order Number: [id number] Exam Date: 12/06/2024 13:05 Report Date: 12/09/2024 [...] Whatley M.D. Signed By: 12/09/24 1533 DD/ 153 TD/TT: Salon Receptionist: NOMS HealthcareRadiology Study observation (narrative)[facility] HealthcareCT ABDOMEN WO/W CONOrdered By: Radiologist Radiology on 72-18-0847BFFH [employer] Work Phone: US RIGHT UPPER QUADRANTon [phone] [address] Ultrasound Report Signed Patient: DANIELLA BEJARANO MR#: [id number] : 1960 Acct:[id number] Age/Sex: 64 / F ADM Date: 12/04/24 Loc: US Attending Dr: Bayron Singh M.D. Ordering Physician: Bayron Singh M.D. Date of Service: 12/04/24 Procedure(s): US right upper quadrant Accession Number(s): [id number] cc: Bayron Singh M.D. [place] [address] Patient Name: DANIELLA BEJARANO MRN: [facility]:[id number] date: 1960 Sex: F Assigned Patient Location: US Current Patient Location: US Accession/Order Number: [id number] Exam Date: 12/04/2024 10:36 Report Date: 12/04/2024 [...] By: Long Allen M.D. Signed By: 12/04/24 4909 DD/ 1406 TD/TT: Salon Receptionist:TBHRadiology, Radiologist, - 12/04/2024 [place] [address] Ultrasound Report Signed Patient: DANIELLA BEJARANO MR#: [id number] : 1960 Acct:[id number] Age/Sex: 64 / F ADM Date: 12/04/24 Loc: US Attending Dr: Bayron Singh M.D. Ordering Physician: Bayron Singh M.D. Date of Service: 12/04/24 Procedure(s): US right upper quadrant Accession Number(s): [id number] cc: Bayron Singh M.D. The [place] [address] Patient Name: DANIELLA BEJARANO MRN: [id number] date: 1960 Sex: F Assigned Patient Location: US Current Patient Location: US Accession/Order Number: [id number] Exam Date: 12/04/2024 10:36 Report Date: 12/04/2024 [...] Dictated By: Long Allen M.D. Signed By: 12/04/241331 DD/ 29 TD/TT: Salon Receptionist: ANA LAURA HealthcareRadiology Study observation (narrative)[facility] HealthcareUS RIGHT UPPER QUADRANTOrdered By: Radiologist Radiology on 35-33-2434XMNQResearch Medical Center-[facility]okside Campus Work Phone: all CBC WITH AUTO DIFFon 73-12-9197SXYBDXLFK ABSOLUTE AUTO0.1NOMS HealthcareBasophils/100 WBC (Bld)0.8 %0.2 - 2.0 %[facility] Eosinophils/100 WBC (Bld)2.3 %0.9 - 7.0 %[facility]ok[facility] CampusErythrocyte distribution width (RBC) [Ratio]13.9 %11.0 - 15.0 %[facility]ok[facility] CampusHematocrit (Bld) [Volume fraction]38.6 %36.0 - 48.0 %[facility] CampusHemoglobin (Bld) [Mass/Vol]12.1 g/dL 12.0 - 16.0 g/dLResearch Medical Center-Brookside CampusIMMATURE GRANULOCYTES ABS AUTO0.03NOLafayette Regional Health Center Immature granulocytes/100 WBC (Bld)0.5 %0.0 - 0.5 %[facility] CampusInterpretation and review of laboratory resultsAbnormalNOLafayette Regional Health CenterLYMPHOCYTES ABSOLUTE AUTO1.2NOMS HealthcareLymphocytes/100 WBC (Bld)18.6 %Low20.5 - 60.0 %[facility]ok[facility] CampusMCH (RBC) [Entitic mass]27.2 pg26.7 - 34.0 pgWashington University Medical CenterHC (RBC) [Mass/Vol]31.3 g/dL29.9 - 35.2 g/dLResearch Medical Center-Brookside CampusMCV (RBC) [Entitic vol]86.7 fL 81.0 - 99.0 fLResearch Medical Center-Brookside CampusMONOCYTES ABSOLUTE AUTO0.6NOLafayette Regional Health Center Monocytes/100 WBC (Bld)8.4 %1.7 - 12.0 %[facility] CampusNEUTROPHILS ABSOLUTE AUTO 4.5NOMS HealthcareNeutrophils/100 WBC (Bld)69.4 %43.0 - 75.0 %[facility] Platelet mean volume (Bld) [Entitic vol]9.4 fLLow9.5 - 13.5 fLNOMS HealthcareTBH EO #0.2NOMS HealthcareTBH [id number] HealthcareTBH RBC4.45NOMS HealthcareTBH WBC 6.5NOMS HealthcareCLINISYNCNOMS HealthcareUS.doppler Lower extremity vein - righton 34-16-8387[place] [address] Ultrasound Report Signed Patient: DANIELLA BEJARANO MR#: [id number] : 1960 Acct:[id number] Age/Sex: 64 / F ADM Date: 11/04/24 Loc: US Attending Dr: Angel Luis Regan Ordering Physician: Angel Luis Regan D.O. Date of Service: 11/04/24 Procedure(s): US venous doppler LE RT Accession Number(s): [id number] cc: Angel Luis Regan D.O.; Bayron Singh M.D. The [place] [address] Patient Name: DANIELLA BEJARANO MRN: [id number] date: 1960 Sex: F Assigned Patient Location: US Current Patient Location: US Accession/Order Number: [id number] Exam Date: 11/04/2024 07:50 Report Date: 11/04/2024 08:40 At the request of: ANGEL LUIS REGAN Procedure: US venous doppler LE RT EXAM: US venous doppler LE RT HISTORY: Right Lower Extremity Pain COMPARISON: None. TECHNIQUE: Grayscale, color and Doppler FINDINGS: Region: Right leg Thrombus: None Flow: Normal Augmentation: Normal Compressibility: Normal US/US venous doppler LE RT IMPRESSION: No deep or superficial vein thrombus in the right leg. Electronically authenticated by: SPARKLE WHATLEY Date: 11/04/2024 08:40 Dictated By: Sparkle Whatley M.D. Signed By: 11/04/2442 DD/ TD/TT: Salon Receptionist:REJIadiology, Radiologist, - 11/04/2024 [place] [address] Ultrasound Report Signed Patient: DANIELLA BEJARANO MR#: [id number] : 1960 Acct:[id number] Age/Sex: 64 / F ADM Date: 11/04/24 Loc: US Attending Dr: Angel Luis Regan Ordering Physician: Angel Luis Regan D.O. Date of Service: 11/04/24 Procedure(s): US venous doppler LE RT Accession Number(s): [id number] cc: Angel Luis Regan D.O.; Bayron Singh M.D. [place] [address] Patient Name: DANIELLA BEJARANO MRN: [id number] date: 1960 Sex: F Assigned Patient Location: US Current Patient Location: US Accession/Order Number: [id number] Exam Date: 11/04/2024 07:50 Report Date: 11/04/2024 08:40 At the request of: ANGEL LUIS REGAN Procedure: US venous doppler LE RT EXAM: US venous doppler LE RT HISTORY: Right Lower Extremity Pain COMPARISON: None. TECHNIQUE: Grayscale, color and Doppler FINDINGS: Region: Right leg Thrombus: None Flow: Normal Augmentation: Normal Compressibility: Normal US/US venous doppler LE RT IMPRESSION: No deep or superficial vein thrombus in the right leg. Electronically authenticated by: SPARKLE WHATLEY Date: 11/04/2024 08:40 Dictated By: Sparkle Whatley M.D. Signed By: 11/04/2442 DD/ 9 TD/TT: Salon Receptionist: ANA LAURA HealthcareRadiology Study observation (narrative)ANA LAURA JarrellUS.doppler Lower extremity vein - rightOrdered By: Radiologist Radiology on 24-21-9851XMWV [employer] Work Phone: [phone] CYTOLOGY - CELLULAR EXAMon 54-84-0722ZBZ AP CASE REPORTNormalUniversity of Stephens Memorial HospitalComment on above:Order Comment: Via cysto bladder washResult Comment: Non-gynecologic Cytology Case: [id number] Authorizing Provider: Lisa Zelaya MD Collected: 10/16/2024 1531 Ordering Location: [facility] Received: 10/16/2024 1531 Urology Pathologist: Sarah Mckenna MD Specimen: Bladder washingPerformed By: #### [id number] #### [facility] LAB (BEAKER) [address] [place], [place] [address]HGP AP CLINICAL INFORMATIONOrder DiagnosesNormalUniversWilson HealthComment on above:Order Comment: Via cysto bladder wash Result Comment: C67.4 - Malignant neoplasm of posterior wall of urinary bladder (CMS/HCC) [ICD-10-CM]Performed By: #### LAB13 #### [facility] LAB (BEAKER) [address] [place], [place] [address]YYJ AP GROSS DESCRIPTIONNormalUnibaylor university medical center of Stephens Memorial HospitalComment on above:Order Comment: Via cysto bladder washResult Comment: 15 mL clear, clear light fluidPerformed By: #### LAB13 #### [facility] LAB (AKER) [address] [facility] [place], [place] [address]UBM AP REPORT FINAL DIAGNOSIS NARRATIVENoFulton County Health CenterComment on above:Order Comment: Via cysto bladder wash Result Comment: A. Bladder, washing: - Negative for high grade urothelial carcinoma. Performed By: #### LAB13 #### [facility] LAB (AKER) [address] [place], [place] [address]Jrztbbmda Visiton 26-65-2303Niizzbjic [id number] Daniella Bejarano 1960 F Date Provider Department Center 10/16/2024 [facility] Family History Problem Relation Age of Onset Hypertension Mother Atrial fibrillation Mother Other Sister Coronary artery disease Brother Hypertension Brother Family Status - Relation Status Age at Mother Sister Brother Level of Service:55493 UT OFFICE/OUTPATIENT ESTABLISHED LOW MDM 20 MIN Reason for Visit and Comments: Follow-up [340878][facility]36on Pertaining to proBNP From: Nasar Bustos MD Sent: 08/12/2024 6:44 PM EDT To: Lynne Maldonado MA Subject: RE: Scan Please tell her that the NT proBNP was very low. Less likely that she has heart failure. Same recommendations and follow-up Gave pt the messageNormalUniversWilson HealthTelephoneon [id number] Daniella Bejarano Chris 1960 F Date Provider Department Center 08/15/2024 99805-XYJEUJPI, TANA MICHELLE [facility] Family History Problem Relation Age of Onset Hypertension Mother Atrial fibrillation Mother Other Sister Coronary artery disease Brother Hypertension Brother Family Status - Relation Status Age at Mother Sister BrotherNormalUniversity UK HealthcareALL PRO BNPon 83-38-7804GN PRO B TYPE NATRIURETIC PEPT87 pg/mLNINF - 900.0 pg/mLNOMS HealthcareCLINISYNCNOMS HealthcareOffice Visiton 98-36-6393Lznsdi-up [id number] Daniella Bejarano Chris 1960 Date Provider Department Center 08/12/2024 Alber-NASRA BUSTOS MICHELLE [facility] Family History Problem Relation Age of Onset Hypertension Mother Atrial fibrillation Mother Other Sister Coronary artery disease Brother Hypertension Brother Family Status - Relation Status Age at Mother Sister Brother Level of Service:66206 UT OFFICE/OUTPATIENT ESTABLISHED MOD MDM 30 [facility] HospitalNON-CLINICAL DOCUMENTATION CLERK CYTOLOGY - CELLULAR EXAMon 07-10-2024 LAB AP CASE REPORTNormalUniversuniversity hospitals [facility] of [facility] Memorial HospitalComment on above: Order Comment: Via cystoResult Comment: Non-gynecologic Cytology Case: [id number] Authorizing Provider: Lisa Zelaya MD Collected: 07/10/2024 1433 Ordering Location: [facility] Received: 07/10/2024 143 Urology Pathologist: Sarah Mckenna MD Specimen: Bladder washingPerformed By: #### LAB13 #### [facility] LAB (BEAKER) [address] [place], [place] [address]RSS AP CLINICAL INFORMATIONOrder DiagnosesNormalUniversWilson HealthComment on above:Order Comment: Via cystoResult Comment: C67.4 - Malignant neoplasm of posterior wall of urinary bladder (CMS/HCC) [ICD-10-CM]Performed By: #### LAB13 #### [facility] ([facility]) [address] [place], [place] [address]KTF AP GROSS DESCRIPTIONNormalUniMcCullough-Hyde Memorial HospitalCombrighton hospital on above:Order Comment: Via cystoResult Comment: 13.5 mL clear, pale yellow fluidPerformed By: #### LAB13 #### [facility] ([facility]) [address] [place], [place] [address]DVT AP REPORT FINAL DIAGNOSIS NARRATIVENormalUnibaylor university medical center of Stephens Memorial HospitalCombrighton hospital on above:Order Comment: Via cystoResult Comment: A. Bladder, washing: - Nondiagnostic. - Scant cellularity due to obscuring lubricant. Performed By: #### LAB13 #### [facility] ([facility]) [address] [place], [place] [address]Piykzofnh Visiton 08-07-8729Nytgzvjzt [id number] Daniella Bejarano 1960 F Date Provider Department Center 07/10/2024 [facility] Family History Problem Relation Age of Onset Hypertension Mother Atrial fibrillation Mother Other Sister Coronary artery disease Brother Hypertension Brother Family Status - Relation Status Age at Mother Sister Brother Level of Service:41677 UT OFFICE/OUTPATIENT ESTABLISHED LOW MDM 20 MIN Reason for Visit and Comments: Follow-up [169708][facility] HealthDBT Breast - left screeningon 31-69-8411Qea[place] [address] Mammography Report Signed Patient: DANIELLA BEJARANO MR#: [id number] : 1960 Acct:[id number] Age/Sex: 63 / F ADM Date: 05/09/24 Loc: MAMMO Attending Dr: Bayron Singh M.D. Ordering Physician: Bayron Singh M.D. Results: Date of Service: 05/09/24 Follow Up: Procedure(s): MM tomosynthesis screening LT Accession Number(s): [id number] cc: Bayron Singh M.D. Patient Name: DANIELLA BEJARANO MR#: [id number] : 1960 Exam Date: 05/09/2024 Ordering Doctor: [...] breast cancer at age 68. LOCATION: [facility] BREAST COMPOSITION: There are scattered areas of fibroglandular density. FINDINGS: DIAGNOSTIC CATEGORY 1--NEGATIVE. NO CHANGE FROM COMPARISON ASSESSMENT. LEFT BREAST: No significant suspicious finding. RECOMMENDATIONS: ROUTINE MAMMOGRAM AND CLINICAL EVALUATION IN 12 MONTHS. PLEASE NOTE: A NORMAL MAMMOGRAM DOES NOT EXCLUDE THE POSSIBILITY OF BREAST CANCER. A CLINICALLY SUSPICIOUS PALPABLE LUMP SHOULD BE BIOPSIED. Dictated by: Sparkle Whatley MD on 05/09/2024 at 12:58 Approved by: Sparkle Whatley MD on 05/09/2024 at 12:59 Dictated By: Sparkle Whatley M.D. Signed By: 05/09/24 1300 DD/ 1259 TD/TT: Salon Receptionist:TBHRadiology, Radiologist, - 05/09/2024 [place] [address] Mammography Report Signed Patient: DANIELLA BEJARANO MR#: [id number] : 1960 Acct:[id number] Age/Sex: 63 / F ADM Date: 05/09/24 Loc: MAMMO Attending Dr: Bayron Singh M.D. Ordering Physician: Bayron Singh M.D. Results: Date of Service: 05/09/24 Follow Up: Procedure(s): MM tomosynthesis screening LT Accession Number(s): [id number] cc: Bayron Singh M.D. Patient Name: DANIELLA BEJARANO MR#: [id number] : 1960 Exam Date: 05/09/2024 Ordering Doctor: DR Bayron Singh . RADIOLOGY REPORT PROCEDURE: MM TOMOSYNTHESIS SCREENING [...] breast cancer at age 68. LOCATION: [facility] BREAST COMPOSITION: There are scattered areas of fibroglandular density. FINDINGS: DIAGNOSTIC CATEGORY 1--NEGATIVE. NO CHANGE FROM COMPARISON ASSESSMENT. LEFT BREAST: No significant suspicious finding. RECOMMENDATIONS: ROUTINE MAMMOGRAM AND CLINICAL EVALUATION IN 12 MONTHS. PLEASE NOTE: A NORMAL MAMMOGRAM DOES NOT EXCLUDE THE POSSIBILITY OF BREAST CANCER. A CLINICALLY SUSPICIOUS PALPABLE LUMP SHOULD BE BIOPSIED. Dictated by: Sparkle Whatley MD on 05/09/2024 at 12:58 Approved by: Sparkle Whatley MD on 05/09/2024 at 12:59 Dictated By: Sparkle Whatley M.D. Signed By: 05/09/24 1300 DD/ 1259 TD/TT: Salon Receptionist: ANA LAURA HealthcareRadiology Study observation (narrative)NOMGolden Valley Memorial HospitalDBT Breast - left screeningOrdered By: Radiologist Radiology on 43-03-1000TN[facility] Work Phone: [phone]-FIC CYTOLOGY - CELLULAR EXAMon 70-56-7117YHE AP CASE REPORTNormalUniversity of Stephens Memorial HospitalComment on above:Order Comment: Via cystoResult Comment: Non-gynecologic Cytology Case: [id number] Authorizing Provider: Lisa Zelaya MD Collected: 04/10/2024 1544 Ordering Location: [facility] Received: 04/10/2024 1544 Urology Pathologist: Adelita Peralta MD Specimen: Bladder washingPerformed By: #### LAB13 ####[facility] LAB (BEAKER)[address] [place], [place] [address]WIW AP CLINICAL INFORMATIONOrder DiagnosesNormalUniversWilson HealthComment on above:Order Comment: Via cystoResult Comment: C67.4 - Malignant neoplasm of posterior wall of urinary bladder (CMS/HCC) [ICD-10-CM]Performed By: #### LAB13 ####[facility] LAB (BEAKER)[address] [place], [place] [address]BSR AP GROSS DESCRIPTION6 mL clear, colorless fluidNormalUniversuniversity hospitals [facility] medical center of Stephens Memorial HospitalComment on above:Order Comment: Via cystoPerformed By: #### [id number] ####[facility] LAB (BEAKER)[address] [facility], [place] [address]CZZ AP REPORT FINAL DIAGNOSIS NARRATIVENormGalion Hospitalnibaylor university medical center of Stephens Memorial HospitalComment on above:Order Comment: Via cystoResult Comment: A. Bladder washing: - Negative for high grade urothelial carcinoma. Performed By: #### LAB13 ####[facility] LAB (BEAKER)[address] [place] [address] Procedure Visiton 53-97-2957Mxiaudjtm [id number] Daniella Bejarano 1960 F Date Provider Department Center 04/10/2024 [facility] Family History Problem Relation Age of Onset Hypertension Mother Atrial fibrillation Mother Other Sister Coronary artery disease Brother Hypertension Brother Family Status - Relation Status Age at Mother Sister Brother Level of Service:45786 UT OFFICE/OUTPATIENT ESTABLISHED LOW MDM 20 MIN Reason for Visit and Comments: Follow-up [390798]NormalUnKettering Health SpringfieldTelephoneon [id number] Daniella Bejarano 1960 F Date Provider Department Center 04/03/2024 [facility] Family History Problem Relation Age of Onset Hypertension Mother Atrial fibrillation Mother Other Sister Coronary artery disease Brother Hypertension Brother Family Status - Relation Status Age at Mother Sister BrotherNormalUniversWilson HealthHISTOLOGY - TISSUE EXAMon 26-36-9843XDA AP CASE REPORTNormalUniversity of Stephens Memorial HospitalComment on above:Result Comment: Surgical Pathology Case: [id number] Authorizing Provider: Jenn Vieira MD Collected: 03/19/2024 1224 Ordering Location: [facility] Received: 03/19/2024 1356 [facility] Endoscopy Pathologist: Mel Mortensen MD Specimens: A) - Large Intestine, Right/Ascending Colon, small ascending cln polyps r/o adenoma B) - Large Intestine, Right/Ascending Colon, large proximal ascending cln polyp EMR r/o adenoma C) - Large Intestine, Right/Ascending Colon, large distal ascending cln EMR polyp r/o adenomaPerformed By: #### [id number] ####[facility] LAB (BEAKER)[address] [facility], [place] [address]VNJ AP CLINICAL INFORMATIONOrder DiagnosesNormalUniversuniversity hospitals [facility] center of [facility] Memorial HospitalCombrighton hospital on above:Result Comment: D12.6 - Adenomatous polyp of colon, unspecified part of colon [ICD-10-CM]Performed By: #### [id number] ####[facility] LAB (BEAKER)[address] [facility], [place] [address]SFI AP GROSS DESCRIPTIONNormalUnibaylor university medical center of Stephens Memorial HospitalCombrighton hospital on above:Result Comment: A. Large Intestine, Right/Ascending Colon. Received in formalin in a container labeled Daniella A Titirk, small ascending cln polyps r/o adenoma, is [...] a fragment of soft tissue with a pink- rankin polypoid area (0.5 x 0.4 x 0.4 cm) andattached pale rankin strip (0.3 x 0.2 x [...] in formalin in a container labeled Daniella Cassidytran, large distal ascending cln EMR polypr/o adenoma, are fragments of pink-rankin polypoid soft [...] C4: Other fragments Jose Juan Lees, Pathology PGY-2Performed By: #### [id number] ####[facility] LAB (BEAKER)[address] [place], [place] [address]MSV MICROSCOPIC DESCRIPTION Microscopic examination performed.[facility] Comment on above:Performed By: #### [id number] ####[facility] LAB (BEAKER)[address] [facility], [place] [address]ABZ AP REPORT FINAL DIAGNOSIS [facility] HospitalComment on above:Result Comment: A. Colon, ascending polyp, biopsy: - Tubular adenoma B. Colon, large proximal ascending polyp, biopsy: - Tubular adenoma C. Colon, large distal ascending polyp, biopsy: - Tubular adenoma Performed By: #### [id number] ####[facility] NOLAN BUTLER)ANH SPENCER [address]WHvg 35-74-4173HL Attestation signed by Jenn Vieira MD at [...] colonoscopy with possible EMR. Colonoscopy at the [facility] on 02/13/2024 revealed 2 subcentimeter polyps in the cecum/ascending colon biopsied with cold snare. Pandiverticulosis. Plan: Colonoscopy with EMR today History Of Present Illness This is a 56-year-old female who recently underwent colonoscopy 3 weeks ago on 02/13/2024 found to have cecal polyps, biopsies were obtained and revealed tubular adenoma. Presenting today for colonoscopy with possible EMR. Colonoscopy at the [facility] on 02/13/2024 revealed 2 subcentimeter polyps [...] colonoscopy with possible EMR. Colonoscopy at the [facility] on 02/13/2024 revealed 2 subcentimeter polyps in the cecum/ascending colon biopsied with cold snare. Pandiverticulosis. Plan: Colonoscopy with EMR todaySumma HealthNURSNOTEon 02-49-2422RHKJTCUMTg Nawras is at bedside updating patient and familySt. Mary's Medical Center, Ironton CampusNURSNOTEGrounding patch removed skin dry and intactNormalUniversWilson HealthPOCT GLUCOSE METER UNSOLICITED RESULTSon 32-44-9024Wvevezm [Mass/Vol]117 mg/fZVbnv68-802UgdaffdxdxKettering Health SpringfieldComment on above:Order Comment: Waived Testing in the ED is performed under the ED CLIA certificate #[id number].Result Comment: dholas Performed By: #### [id number] ####[facility] LAB (BEAKER)[address] [place], [place] [address]Uooa for Procedureon 62-78-6227Ptia for [id number] Daniella Bejarano A 1960 Date Provider Department Center 03/12/2024 [facility] Family History Problem Relation Age of Onset Hypertension Mother Atrial fibrillation Mother Other Sister Coronary artery disease Brother Hypertension Brother Family Status - Relation Status Age at Mother Sister BrotherNormalUniversity of Stephens Memorial HospitalLetter (Out)on 90-98-6965Srnrti (Out)[id number] Wali Bejaranolyn A 1960 Provider Department Center 03/06/2024 None-None [facility] Family History Problem Relation Age of Onset Hypertension Mother Atrial fibrillation Mother Other Sister Coronary artery disease Brother Hypertension Brother Family Status - Relation Status Age at Mother Sister BrotherNormalUniversity of Stephens Memorial HospitalOrders Onlyon 13-12-3107Sjlfeq [id number] Wali Bejaranolyn A 1960 Provider Department Center 03/01/2024 REEMA CARD [facility] CATHERINE Family History Problem Relation Age of Onset Hypertension Mother Atrial fibrillation Mother Other Sister Coronary artery disease Brother Hypertension Brother Family Status - Relation Status Age at Mother Sister BrotherNormalUniversity of Stephens Memorial HospitalLon 11-47-1499RXtndgnih: BS24- 318 Received: 02/14/24 Status: LALY Hodges Num: [id number] Spec Type: Surgical Subm Dr: Jeff Cordova Tissues: A Colon Biopsy (CECAL POLYP) Procedures: HE/2, Gross/Micro L4 Age/ Patient Sex Location Account Attending Physician Daniella Bejarano 63/F LABELL [id number] Jeff Cordova SPEC NUM: [id number] RECD: 02/14/24 STATUS: LALY HODGES NUM: [id number] JULIA: 02/14/24- DR: Jeff Cordova ENTERED: 02/14/24 [facility] DR: SPEC TYPE: Surgical DEPT: ISADORA VIRK ENTERED BY: [id number] RECV BY: [id number] ORDERED: HE/2, Gross/Micro L4 ORDERED: HE/2, Gross/Micro [...] cecal polyp x2, smith-diverticulosis. TW/JUSTINA CPT Codes 41397 Specimen: [id number] Received: 02/14/24 Status: LALY Hodges Num: [id number] Spec Type: Surgical Subm Dr: Jeff Cordova Tissues: A Colon Biopsy (CECAL POLYP) Procedures: HE/2, Gross/Micro L4 Patient: Daniella Bejarano [id number] (Continued) Signed (signature on file) Bernardino-Horacio Jeter MD 02/17/[address] [place] [address] Physician GroupOffice Visiton 35-64-1996Zzcdod-up visit [id number] Daniella Bejarano 1960 F Date Provider Department Center 02/09/2024 Sadie-OZZY DANIELS MICHELLE Oliver Family History Problem Relation Age of Onset Hypertension Mother Atrial fibrillation Mother Other Sister Coronary artery disease Brother Hypertension Brother Family Status - Relation Status Age at Mother Sister Brother Level of Service:57911 UT OFFICE/OUTPATIENT ESTABLISHED MOD MDM 30 [facility]36on 90-78-231082Qfambqq will call me back if she decides she'd like to proceed with PFT's.[facility]36on 72-95-234065Tcdhymt called back to make you aware that her edema is better. She says it's better because she isn't on the cruise anymore and eating so much salt . She said her SOB remains the same, as she's still huffin and puffin . She states I think I'm just fat . Any recommendations? (Besides weight loss and diet lol) [facility]36Regarding echo performed on 01/11/2024: ISIDRA Blair MA Her echo looks OK except they couldn't see her RV well- ask her if shortness of breath and edema have improved since taking lasix. LM for patient to return my call. Also let her know her Holter monitor did not show anything concerning (per Jeannette).[facility] HealthCA ECHO DOPPLER COMPLETEon 56-38-0221UdwMark [place] [address] Cardiology Report Signed Patient: DANIELLA BEJARANO MR#: [id number] : 1960 Acct:[id number] Age/Sex: 63 / F ADM Date: 01/11/24 Loc: CARD Attending Dr: OZZY DANIELS Ordering Physician: OZZY DANIELS Date of Service: 01/11/24 Procedure(s): CA echo doppler complete Accession Number(s): [id number] cc: OZZY DANIELS; Bayron Singh M.D. Patient Name: DANIELLA BEJARANO MR#: [id number] : 1960 Exam Date: 01/11/2024 Ordering Doctor: [...] at 13:48 Dictated By: Kaylynn Feldman M.D. (more content not included)...TBHRadiology, Radiologist, - 01/11/2024 [place] [address] Cardiology Report Signed Patient: DANIELLA BEJARANO MR#: [id number] : 1960 Acct:[id number] Age/Sex: 63 / F ADM Date: 01/11/24 Loc: CARD Attending Dr: OZZY DANIELS Ordering Physician: OZZY DANIELS Date of Service: 01/11/24 Procedure(s): CA echo doppler complete Accession Number(s): [id number] cc: OZZY DANIELS; Bayron Singh M.D. Patient Name: DANIELLA BEJARANO MR#: [id number] : 1960 Exam Date: 01/11/2024 Ordering Doctor: OZZY ADNIELS ECHOCARDIOGRAM REPORT PROCEDURE: CA ECHO DOPPLER COMPLETE [...] By: Kaylynn Feldman M.D. Signed By: 01/11/24 1350 DD/ 1348 TD/TT: Salon Receptionist: ANA LAURA HealthcareRadiology Study observation (narrative)[facility] ECHO DOPPLER COMPLETEOrdered By: Radiologist Radiology on 64-86-4077[employer] Work Phone: [phone]-FLV CYTOLOGY - CELLULAR EXAMon 65-29-8144CMM AP CASE REPORTNormalUniversity of Stephens Memorial HospitalComment on above:Order Comment: Via cystoResult Comment: Non-gynecologic Cytology Case: [id number] Authorizing Provider: Lisa Zelaya MD Collected: 01/10/20242 Ordering Location: [facility] Received: 01/10/2024 [facility] Urology Pathologist: Yossi Sterling MD Specimen: Bladder washingPerformed By: #### LAB13 #### [facility] LAB (BEAKER) [address] [place], [place] [address]MPT AP CLINICAL INFORMATIONOrder DiagnosesNormalUniversity of Stephens Memorial HospitalCombrighton hospital on above:Order Comment: Via cystoResult Comment: C67.4 - Malignant neoplasm of posterior wall of urinary bladder (CMS/HCC) [ICD-10-CM]Performed By: #### LAB13 #### [facility] (BEAKER) [address] [place] [address]KCJ AP GROSS DESCRIPTIONNormalUniversity of Stephens Memorial HospitalCombrighton hospital on above:Order Comment: Via cystoResult Comment: 15 mL clear, colorless fluid.Performed By: #### LAB13 #### [facility] LAB (BEAKER) [address] [place] [address]YTF AP REPORT FINAL DIAGNOSIS NARRATIVENormalUniversity of Hines Medical CenterComment on above:Order Comment: Via cystoResult Comment: A. Bladder washing: - Negative for high grade urothelial carcinoma. Performed By: #### LAB13 #### [facility] (BEAKER) [address] [place], [place] [address]Ofxjqyplm Visiton 44-20-4986Pkhjqxkpl [id number] Daniella Bejarano 1960 Date Provider Department Center 01/10/2024 397-LISA ZELAYA [facility] Family History Problem Relation Age of Onset Hypertension Mother Atrial fibrillation Mother Other Sister Coronary artery disease Brother Hypertension Brother Family Status - Relation Status Age at Mother Sister Brother Level of Service:75901 UT OFFICE/OUTPATIENT ESTABLISHED LOW MDM 20 MIN Reason for Visit and Comments: Follow-up [225137]NormalOhioHealth [facility]37on Increase lasix to 40 mg daily for 2-3 days to remove fluid, then return to 20 mg daily Have blood drawn for mag, electrolytes and renal function [facility] will call you for echocardiogramNormalUniversity [facility] Office Visiton 36-05-0416Fnbhlg-up [id number] Daniella Bejarano 1960 Provider Department Center 01/02/2024 Sadie-OZZY DANIELS [facility] Family History Problem Relation Age of Onset Hypertension Mother Atrial fibrillation Mother Other Sister Coronary artery disease Brother Hypertension Brother Family Status - Relation Status Age at Mother Sister Brother Level of Service:18214 UT OFFICE/OUTPATIENT ESTABLISHED MOD MDM 30 [facility] HospitalXR Hand - right 3 Viewson 74-76-2824EdmWright-Patterson Medical [facility] [address] [place] [address] XRay Report Signed Patient: DANIELLA BEJARANO MR#: [id number] : 1960 Acct:[id number] Age/Sex: 63 / F ADM Date: 12/04/23 Loc: RAD Attending Dr: Long Baron M.D. Ordering Physician: Long Baron M.D. Date of Service: 12/04/23 Procedure(s): XR hand RT min 3V Accession Number(s): [id number] cc: Long Baron M.D.; Bayron Singh M.D. The [place] [address] Patient Name: DANIELLA BEJARANO MRN: [facility]:[id number] date: 1960 Sex: F Assigned Patient Location: [facility] Current Patient Location: [facility] Accession/Order Number: [id number] Exam Date: 12/04/2023 09:52 Report Date: 12/04/2023 15:36 At the request of: LONG BARON Procedure: XR hand RT min 3V EXAM: [...] exam. Follow-up as needed. Electronically authenticated by: MAXX SOLOMON Date: 12/04/2023 15:36 Dictated By: Maxx Solomon M.D. Signed By: 12/04/23 1538 DD/ 35 TD/TT: Salon Receptionist:LEWISHRadiology, Radiologist, MD - 12/05/[address] [address] XRay Report Signed Patient: DANIELLA BEJARANO MR#: [id number] : 1960 Acct:[id number] Age/Sex: 63 / F ADM Date: 12/04/23 Loc: RAD Attending Dr: Long Baron M.D. Ordering Physician: Long Baron M.D. Date of Service: 12/04/23 Procedure(s): XR hand RT min 3V Accession Number(s): [id number] cc: Long Baron M.D.; Bayron Singh M.D. [place] [id number] Patient Name: DANIELLA BEJARANO MRN: [facility]:[id number] date: 1960 Sex: F Assigned Patient Location: [facility] Current Patient Location: [facility] Accession/Order Number: [id number] Exam Date: 12/04/2023 09:52 Report Date: 12/04/2023 15:36 At the request of: LONG BARON Procedure: XR hand RT min 3V EXAM: [...] exam. Follow-up as needed. Electronically authenticated by: MAXX SOLOMON Date: 12/04/2023 15:36 Dictated By: Maxx Solomon M.D. Signed By: 12/04/23 1538 DD/ 1536 TD/TT: Salon Receptionist: [facility] CENTERCristin HealthcareRadiology Study observation (narrative)[facility] CampusXR Hand - right 3 ViewsOrdered By: Radiologist Radiology on 52-55-9382IVCPResearch Medical Center-Brookside Campus Work Phone: cBC AUTO DIFFon 41-00-8827UGHC #0.1 103/ulNormal 0.0-0.1The [facility] HospitalComment on above:Performed By: #### CYTO #### [facility] [address] [place] [address] [address] Troy JeterBasophils/100 WBC (Bld)1.1 %Normal0.2-2.0The [facility] Comment on above:Performed By: #### CYTO #### [facility] [address] [place] [address] [address] Troy Honeycutt #0.2 103/ulNormal0.0-0.7The [facility] HospitalComment on above: Performed By: #### CYTO #### [facility] [address] [place] [address] Dr. Troy Wellsosinophils/100 WBC (Bld)2.8 %Normal0.9-7.0The [facility] Comment on above:Performed By: #### CYTO #### [facility] [address] [place] [address] [address] Troy Wellsrythrocyte distribution width (RBC) [Ratio]15.1 %Critically high 11.0-15.0The [facility] HospitalComment on above:Performed By: #### CYTO #### [facility] [address] [place] [address] Dr. Troy JeterHematocrit (Bld) [Volume fraction]39.7 %Itvavp07.0-48.0The [facility] HospitalComment on above:Performed By: #### CYTO #### [facility] [address] [place] [address] Dr. Troy JeterHemoglobin (Bld) [Mass/Vol]12.3 g/jCNoxtie87.0-16.0The [facility] HospitalComment on above:Performed By: #### CYTO #### [facility] [address] [place] [address] Dr. Troy Christian #0.02 10e3/ulNormal0.00-0.03The [facility] HospitalComment on above:Performed By: #### CYTO #### [facility] [address] [place] [address] [address] Troy Christian %0.4 %Normal0.0-0.5The [facility] HospitalComment on above: Performed By: #### CYTO #### [facility] [address] [place] [address] Dr. Troy Cronin #1.3 103/ulNormal1.2-3.8The [facility] HospitalComment on above:Performed By: #### CYTO #### [facility] [address] [place] [address] Dr. Troy Drakehocytes/100 WBC (Bld)22.0 %Nyhnbw73.5-60.0[facility] on above:Performed By: #### CYTO #### [facility] [address] [place] [address] Dr. Troy Montgomery DIFF REQNONormalThe [facility] HospitalComment on above: Performed By: #### CYTO #### [facility] [address] [place] [address] Dr. Troy Renteria (RBC) [Entitic mass]25.5 pgCritically low26.7-34.0The [facility] on above:Performed By: #### CYTO #### [facility] [address] [place] [address] Dr. Troy Almanza (RBC) [Mass/Vol]31.0 g/rUZjxdri51.9-35.2The [facility] HospitalComment on above:Performed By: #### CYTO #### [facility] [address] [place] [address] Dr. Troy Almanza (RBC) [Entitic vol]82.2 zYKcmhpb20.0-99.0The [facility] HospitalCombrighton hospital on above:Performed By: #### CYTO #### [facility] [address] [place] [address] Dr. Troy Beard #0.5 103/ulNormal0.3-0.8The [facility] HospitalComment on above:Performed By: #### CYTO #### [facility] [address] [place] [address] Dr. Troy De La Pazocytes/100 WBC (Bld)8.6 %Normal1.7-12.0The [facility] Comment on above:Performed By: #### CYTO #### [facility] [address] [place] [address] Dr. Troy LuxUT #3.7 103/ulNormal1.4-6.5The [facility] HospitalComment on above:Performed By: #### CYTO #### [facility] [address] [place] [address] Dr. Troy Luxutrophils/100 WBC (Bld)65.1 %Birrjk67.0-75.0The [facility] HospitalComment on above:Performed By: #### CYTO #### [facility] [address] [place] [address] Dr. Troy Hannonlet mean volume (Bld) [Entitic vol]9.0 fLCritically low 9.5-13.5The [facility] HospitalComment on above:Performed By: #### CYTO #### [facility] [address] [place] [address] Dr. Troy JeterPLT211 103/cxKsmrkk706-621Tsn [facility] HospitalComment on above: Performed By: #### CYTO #### [facility] [address] [place] [address] Dr. Troy JeterRBC4.83 106/ulNormal4.20-5.40The [facility] HospitalComment on above:Performed By: #### CYTO #### [facility] [address] [place] [address] Dr. Troy JeterWBC5.7 103/ulNormal4.0-11.0The [facility] HospitalComment on above: Performed By: #### CYTO #### [facility] [address] [place] [address] Dr. Troy JeterPROF 14(COMP METB)on 18-46-4780Qnzmlgp [Mass/Vol]3.4 g/dLNormal 3.4-5.0The [facility] HospitalComment on above:Performed By: #### CBC #### [facility] [address] [place] [address] Dr. Troy JeterAlbumin/Globulin [Mass ratio]0.9 {ratio}NormalThe [facility] HospitalComment on above:Performed By: #### CBC #### [facility] [address] [place] [address] Dr. Troy MalikP [Catalytic activity/Vol]94 U/XOzwtnd83-683Iwy [facility] HospitalComment on above:Performed By: #### CBC #### [facility] [address] [place] [address] Dr. Troy Gardner [Catalytic activity/Vol]61 U/LCritically askr69-93Xzs [facility] HospitalComment on above:Performed By: #### CBC #### [facility] [address] [place] [address] Dr. Troy Llanos gap [Moles/Vol]11.6 mmol/LNormalThe [facility] Comment on above:Performed By: #### CBC #### [facility] [address] [place] [address] Dr. Troy JeterAST [Catalytic activity/Vol]48 U/LCritically fgqz63-53Zth [facility] HospitalComment on above:Performed By: #### CBC #### [facility] [address] [place] [address] Dr. Troy JeterBilirubin [Mass/Vol]0.3 mg/dLNormal0.2-1.0The [facility] Comment on above:Performed By: #### CBC #### [facility] [address] [place] [address] Dr. Troy JeterCalcium [Mass/Vol]9.3 mg/dLNormal8.5-10.1The [facility] Comment on above:Performed By: #### CBC #### [facility] [address] [place] [address] Dr. Troy JeterChloride [Moles/Vol]106 mmol/OOmhwlg64-368Jxp [facility] Comment on above:Performed By: #### CBC #### [facility] [address] [place] [address] [address] Troy JeterCO2 [Moles/Vol]25.4 mmol/EBaazil09.0-32.0The [facility] Comment on above:Performed By: #### CBC #### [facility] [address] [place] [address] [address] Troy JeterCreatinine [Mass/Vol]1.06 mg/dLCritically high0.55-1.02[facility]-Patterson Medical CenterComment on above:Performed By: #### CBC #### [facility] [address] [place] [address] [address] Troy WellsGFR-AF EAST TIMORESE>60Normal>=60The [facility] HospitalComment on above:Performed By: #### CBC #### [facility] [address] [place] [address] [address] Troy WellsGFR-NON AF PWENRKPX90 mL/min/1.58l3Tbsyibaiqc low>=60The [facility] HospitalComment on above:Performed By: #### CBC #### [facility] [address] [place] [address] [address] Troy JeterGlobulin (S) [Mass/Vol]4.0 g/dLNormalThe [facility] HospitalComment on above:Performed By: #### CBC #### [facility] [address] [place] [address] [address] Troy JeterGlucose [Mass/Vol]132 mg/dLCritically ysza91-184Myd [facility] HospitalComment on above:Performed By: #### CBC #### [facility] [address] [place] [address] [address] Troy JeterPotassium [Moles/Vol]4.0 mmol/LNormal3.5-5.1The [facility] Comment on above:Performed By: #### CBC #### [facility] [address] [place] [address] [address] Troy JeterProtein [Mass/Vol]7.4 g/dLNormal6.4-8.2The [facility] Comment on above:Performed By: #### CBC #### [facility] [address] [place] [address] Dr. Troy Matthewsdium [Moles/Vol]139 mmol/VLqpgzy567-764Aqh [facility] Comment on above:Performed By: #### CBC #### [facility] [address] [place] [address] Dr. Troy JeterUrea nitrogen [Mass/Vol]16.0 mg/dLNormal7.0-18.0[facility]terson Medical CenterComment on above:Performed By: #### CBC #### [facility] [address] [place] [address] Dr. Troy Vallecillo nitrogen/Creatinine [Mass ratio]15.1 mg/mgNormalThe [facility] HospitalComment on above:Performed By: #### CBC #### [facility] [address] [place] [address] Dr. Troy Antonio AUTO DIFFon 69-13-4598DOGE #0.1 103/ulNormal0.0-0.1[facility]Patterson Medical CenterComment on above:Performed By: #### CYTO #### [facility] [address] [place] [address] Dr. Troy JeterBasophils/100 WBC (Bld)0.9 %Normal0.2-2.0[facility] Comment on above:Performed By: #### CYTO #### [facility] [address] [place] [address] Dr. Troy Honeycutt #0.2 103/ulNormal0.0-0.7The [facility] HospitalComment on above: Performed By: #### CYTO #### [facility] [address] [place] [address] Dr. Troy Wellsosinophils/100 WBC (Bld)2.9 %Normal0.9-7.0The [facility] Comment on above:Performed By: #### CYTO #### [facility] [address] [place] [address] Dr. Troy Wellsrythrocyte distribution width (RBC) [Ratio]15.3 %Critically high 11.0-15.0The [facility] HospitalComment on above:Performed By: #### CYTO #### [facility] [address] [place] [address] Dr. Troy JeterHematocrit (Bld) [Volume fraction]36.8 %Qmeydh04.0-48.0The [facility] HospitalComment on above:Performed By: #### CYTO #### [facility] [address] [place] [address] Dr. Troy JeterHemoglobin (Bld) [Mass/Vol]11.5 g/dLCritically low12.0-16.0The [facility] HospitalComment on above:Performed By: #### CYTO #### [facility] [address] [place] [address] Dr. Troy Christian #0.02 10e3/ulNormal0.00-0.03The [facility] HospitalComment on above:Performed By: #### CYTO #### [facility] [address] [place] [address] Dr. Troy Christian %0.3 %Normal0.0-0.5The [facility] HospitalComment on above: Performed By: #### CYTO #### [facility] [address] [place] [address] Dr. Troy Cronin #1.5 103/ulNormal1.2-3.8The [facility] HospitalComment on above:Performed By: #### CYTO #### [facility] [address] [place] [address] Dr. Troy Shahmphocytes/100 WBC (Bld)24.8 %Vovyzn04.5-60.0The [facility] HospitalComment on above:Performed By: #### CYTO #### [facility] [address] [place] [address] Dr. Troy MárquezUAL DIFF REQNONormalThe [facility] HospitalComment on above: Performed By: #### CYTO #### [facility] [address] [place] [address] Dr. Troy Renteria (RBC) [Entitic mass]25.4 pgCritically low26.7-34.0The [facility] HospitalComment on above:Performed By: #### CYTO #### [facility] [address] [place] [address] Dr. Troy Almanza (RBC) [Mass/Vol]31.3 g/sPYhmfos86.9-35.2The [facility] HospitalComment on above:Performed By: #### CYTO #### [facility] [address] [place] [address] Dr. Troy Almanza (RBC) [Entitic vol]81.4 rGYdxokw62.0-99.0The [facility] HospitalComment on above:Performed By: #### CYTO #### [facility] [address] [place] [address] Dr. Troy Beard #0.5 103/ulNormal0.3-0.8The [facility] HospitalComment on above:Performed By: #### CYTO #### [facility] [address] [place] [address] Dr. Troy De La Pazocytes/100 WBC (Bld)8.4 %Normal1.7-12.0The [facility] Comment on above:Performed By: #### CYTO #### [facility] [address] [place] [address] Dr. Troy Chandler #3.7 103/ulNormal1.4-6.5The [facility] HospitalComment on above:Performed By: #### CYTO #### [facility] [address] [place] [address] Dr. Troy Wileyophils/100 WBC (Bld)62.7 %Nlbvis16.0-75.0The [facility] HospitalComment on above:Performed By: #### CYTO #### [facility] [address] [place] [address] Dr. Troy Romeo mean volume (Bld) [Entitic vol]9.2 fLCritically low 9.5-13.5The [facility] HospitalComment on above:Performed By: #### CYTO #### [facility] [address] [place] [address] [address] Troy JeterPLT193 103/rgPucgck834-416Vgi [facility] on above: Performed By: #### CYTO #### [facility] [address] [place] [address] [address] Troy JeterRBC4.52 106/ulNormal4.20-5.40The [facility] HospitalCombrighton hospital on above:Performed By: #### CYTO #### [facility] [address] [place] [address] [address] Troy JeterWBC5.9 103/ulNormal4.0-11.0The [facility] on above: Performed By: #### CYTO #### [facility] [address] [place] [address] Dr. Troy JeterGLYCOHEMOGLOBIN A1Con 05-14-1372URO RECOMMENDATIONSEE City HospitalCombrighton hospital on above:Result Comment: ADA RECOMMENDED LIMIT 4.0 - 6.0 ADA THERAPEUTIC TARGET < 7.0 ACTION SUGGESTED > 7.0Performed By: #### CBC #### [facility] [address] [place] [address] Dr. Troy JeterGlucose [Mass/Vol]123 mg/dLAdena Health SystemCombrighton hospital on above:Performed By: #### CBC #### [facility] [address] [place] [address] Dr. Troy JeterHbA1c (Bld) [Mass fraction]5.9 %Normal4.5-6.2The [facility] on above:Performed By: #### CBC #### [facility] [address] [place] [address] Dr. Troy JeterLIPID PROFILEon 42-16-5735PWDJ-HDL RATIO NORMSEE [facility] on above:Result Comment: 3.3 - 4.4 LOW RISK 4.4 - 7.1 AVERAGE RISK 7.1 - 11.0 MODERATE RISK >11.0 HIGH RISKPerformed By: #### CYTO #### [facility] [address] [place] [address] Dr. Troy JeterCholesterol [Mass/Vol]156 mg/dLNormal<=200[facility] Comment on above:Performed By: #### CYTO #### [facility] [address] [address] [address] Troy JeterCholesterol in HDL [Mass/Vol]64 mg/dLCritically vppz00-84HgbWright-Patterson Medical CenterComment on above:Performed By: #### CYTO #### [facility] [address] [address] [address] Troy JeterCholesterol in LDL [Mass/Vol]76.4 mg/dLAdena Health SystemComment on above:Performed By: #### CYTO #### [facility] [address] [place] [address] Dr. Troy Tobinesterambrosio.total/Cholesterol in HDL [Mass ratio]2.4 {ratio} NormalWright-Patterson Medical CenterComment on above:Performed By: #### CYTO #### [facility] [address] [place] [address] Dr. Troy Marquez NORMAL> or = 60 mg/dl - LOW CARDIOVASCULAR RISK <40 mg/dl - HIGH CARDIOVASCULAR RISKAdena Health SystemComment on above:Performed By: #### CYTO #### [facility] [address] [place] [address] Dr. Troy Lopez CALC NORMALSEE BELOWAdena Health SystemComment on above:Result Comment: <100 mg/dl OPTIMAL 100 - 129 mg/dl NEAR OR ABOVE OPTIMAL 130 - 159 mg/dl BORDERLINE HIGH 160 - 189 mg/dl HIGH >190 mg/dl VERY HIGH Performed By: #### CYTO #### [facility] [address] [address] [address] Troy JeterTriglyceride [Mass/Vol]78 mg/dLNormal<=150The [facility] Comment on above:Performed By: #### CYTO #### [facility] [address] [place] [address] Dr. Troy ClevelandLDL CALC15.6 mg/dLNoCorey HospitalComment on above: Performed By: #### CYTO #### [facility] [address] [address] [address] Troy JeterPROF 14(COMP METB)on [id number] [Mass/Vol]3.2 g/dL Critically low3.4-5.0[facility] Medical CenterComment on above:Performed By: #### CYTO #### [facility] [address] [address] [address] Troy JeterAlbumin/Globulin [Mass ratio]0.8 {ratio}NormalThe [facility] HospitalComment on above:Performed By: #### CYTO #### [facility] [address] [place] [address] Dr. Troy MalikP [Catalytic activity/Vol]90 U/DDdkonw00-705Uew [facility] HospitalComment on above:Performed By: #### CYTO #### [facility] [address] [place] [address] Dr. Troy MalikT [Catalytic activity/Vol]58 U/SHvbcwi00-16Vso [facility] HospitalComment on above:Performed By: #### CYTO #### [facility] [address] [place] [address] Dr. Troy Llanos gap [Moles/Vol]10.5 mmol/LNormalThe [facility] Comment on above:Performed By: #### CYTO #### [facility] [address] [place] [address] Dr. Troy JeterAST [Catalytic activity/Vol]40 U/LCritically coek95-56Vlm [facility] HospitalComment on above:Performed By: #### CYTO #### [facility] [address] [place] [address] Dr. Troy JeterBilirubin [Mass/Vol]0.3 mg/dLNormal0.2-1.0The [facility] Comment on above:Performed By: #### CYTO #### [facility] [address] [place] [address] Dr. Troy JeterCalcium [Mass/Vol]9.1 mg/dLNormal8.5-10.1[facility] Comment on above:Performed By: #### CYTO #### [facility] [address] [address] [address] Troy JeterChloride [Moles/Vol]106 mmol/GRavotf55-374Kkb [facility] Comment on above:Performed By: #### CYTO #### [facility] [address] [address] [address] Troy JeterCO2 [Moles/Vol]27.6 mmol/VHzmabn64.0-32.0The [facility] Comment on above:Performed By: #### CYTO #### [facility] [address] [address] [address] Troy JeterCreatinine [Mass/Vol]1.01 mg/dLNormal0.55-1.02The [facility] HospitalComment on above:Performed By: #### CYTO #### [facility] [address] [place] [address] Dr. Simmons ChangEGFR-AF EAST TIMORESE>60Normal>=60The [facility] HospitalComment on above:Performed By: #### CYTO #### [facility] [address] [address] [address] Troy WellsGFR-NON AF THHSVFIJ00 mL/min/1.27g8Dtbtxkozvk low>=60The [facility] HospitalComment on above:Performed By: #### CYTO #### [facility] [address] [place] [address] Dr. Troy JeterGlobulin (S) [Mass/Vol]3.9 g/dLNormalThe [facility] HospitalComment on above:Performed By: #### CYTO #### [facility] [address] [address] [address] Troy JeterGlucose [Mass/Vol]112 mg/dLCritically ucfd23-329Sld [facility] HospitalComment on above:Performed By: #### CYTO #### [facility] [address] [address] [address] Troy JeterPotassium [Moles/Vol]4.1 mmol/LNormal3.5-5.1The [facility] Comment on above:Performed By: #### CYTO #### [facility] [address] [address] [address] Troy JeterProtein [Mass/Vol]7.1 g/dLNormal6.4-8.2The [facility] Comment on above:Performed By: #### CYTO #### [facility] [address] [place] [address] Dr. Troy JeterSodium [Moles/Vol]140 mmol/NFqitrm310-145Cea [facility] Comment on above:Performed By: #### CYTO #### [facility] [address] [place] [address] Dr. Troy JeterUrea nitrogen [Mass/Vol]14.0 mg/dLNormal7.0-18.0The [facility] HospitalComment on above:Performed By: #### CYTO #### [facility] [address] [place] [address] Dr. Troy Vallecillo nitrogen/Creatinine [Mass ratio]13.9 mg/mgNoCorey HospitalComment on above:Performed By: #### CYTO #### [facility] [address] [place] [address] Dr. Troy Boland 60-44-8498PIA3.047 uIU/mLNormal0.358-3.740The [facility] HospitalComment on above:Performed By: #### CYTO #### [facility] [address] [place] [address] Dr. Troy DuffyOLOGYdevyn [id number] TO REF LAB12/28/2022[facility] Health SystemComment on above:Performed By: #### CYTO #### [facility] [address] [place] [address] Dr. Troy Adams TO REF LAB12/28/2022[facility] SystemCombrighton hospital on above:Performed By: #### CYTO #### [facility] [address] [place] [address] Dr. Troy JeterPROTIMEon [id number] Coag (PPP) [Relative time]1.00 {INR} NormalThe [facility] HospitalComment on above:Performed By: #### CYTO #### [facility] [address] [place] [address] Dr. Troy Fry GUIDELINESSEE Mansfield HospitalComment on above:Result Comment: DESIRED INR: 2.0 - 3.0 CONDITIONS NOT LISTED BELOW 2.5 - 3.5 FOR PROSTHETIC HEART VALVE REPLACEMENT 2.5 - 3.5 RECURRENT THROMBOSIS Performed By: #### CYTO #### [facility] [address] [place] [address] Dr. Troy Henderson Coag (PPP) [Time]10.6 sNormal9.0-11.6ThMadison Health Comment on above:Performed By: #### CYTO #### [facility] [address] [place] [address] Dr. Troy Jackson [id number] Coag (Bld) [Time]26.9 oAzvzbu73.3-36.2[facility] CenterComment on above:Performed By: #### CYTO #### [facility] [address] [place] [address] Dr. Troy DuffyOLOGYon [id number] TO REF LAB12/07/2022[facility] on above:Performed By: #### CYTO #### [facility] [address] [place] [address] Dr. Troy Antonio AUTO DIFFon [id number] #0.1 103/ulNormal0.0-0.1[facility] on above:Performed By: #### CBC #### [facility] [address] [place] [address] Dr. Troy oHpkinssophils/100 WBC (Bld)1.0 %Normal0.2-2.0[facility] Comment on above:Performed By: #### CBC #### [facility] [address] [place] [address] Dr. Simmons ChangENicole #0.1 103/ulNormal0.0-0.7The [facility] on above: Performed By: #### CBC #### [facility] [address] [address] [address] Troy Wellsosinophils/100 WBC (Bld)2.4 %Normal0.9-7.0The [facility] on above:Performed By: #### CBC #### [facility] [address] [place] [address] Dr. Troy Wellsrythrocyte distribution width (RBC) [Ratio]14.6 %Prifdn95.0-15.0 The [facility] HospitalComment on above:Performed By: #### CBC #### [facility] [address] [place] [address] Dr. Troy JeterHematocrit (Bld) [Volume fraction]37.7 %Nadgvd47.0-48.0The [facility] HospitalComment on above:Performed By: #### CBC #### [facility] [address] [place] [address] Dr. Troy JeterHemoglobin (Bld) [Mass/Vol]11.0 g/dLCritically low12.0-16.0The [facility] Hospitalment on above:Performed By: #### CBC #### [facility] [address] [place] [address] Dr. Troy Christian #0.02 10e3/ulNormal0.00-0.03The [facility] HospitalComment on above:Performed By: #### CBC #### [facility] [address] [place] [address] Dr. Troy Christian %0.4 %Normal0.0-0.5The [facility] Hospitalment on above: Performed By: #### CBC #### [facility] [address] [place] [address] Dr. Troy DrakeH #1.3 103/ulNormal1.2-3.8The [facility] HospitalComment on above:Performed By: #### CBC #### [facility] [address] [place] [address] Dr. Troy Shahmphocytes/100 WBC (Bld)25.5 %Lxwqye60.5-60.0The [facility] HospitalComment on above:Performed By: #### CBC #### [facility] [address] [address] [address] Troy Montgomery DIFF REQNONormalThe [facility] HospitalComment on above: Performed By: #### CBC #### [facility] [address] [place] [address] Dr. Troy Almanza (RBC) [Entitic mass]25.9 pgCritically low26.7-34.0The [facility] HospitalComment on above:Performed By: #### CBC #### [facility] [address] [place] [address] Dr. Troy Almanza (RBC) [Mass/Vol]29.2 g/dLCritically low29.9-35.2The [facility] HospitalComment on above:Performed By: #### CBC #### [facility] [address] [place] [address] Dr. Troy Almanza (RBC) [Entitic vol]88.7 jWQiqytp69.0-99.0The [facility] HospitalComment on above:Performed By: #### CBC #### [facility] [address] [place] [address] Dr. Troy Beard #0.4 103/ulNormal0.3-0.8The [facility] HospitalComment on above:Performed By: #### CBC #### [facility] [address] [place] [address] Dr. Troy De La Pazocytes/100 WBC (Bld)8.6 %Normal1.7-12.0The [facility] Comment on above:Performed By: #### CBC #### [facility] [address] [place] [address] Dr. Troy Chandler #3.2 103/ulNormal1.4-6.5The [facility] HospitalComment on above:Performed By: #### CBC #### [facility] [address] [place] [address] Dr. Troy Luxutrophils/100 WBC (Bld)62.1 %Eqoiir14.0-75.0The [facility] HospitalComment on above:Performed By: #### CBC #### [facility] [address] [place] [address] Dr. Troy Hannonlet mean volume (Bld) [Entitic vol]9.4 fLCritically low 9.5-13.5The [facility] HospitalComment on above:Performed By: #### CBC #### [facility] [address] [place] [address] Dr. Troy JeterPLT190 103/ryHbqvev238-563Ozz [facility] HospitalComment on above: Performed By: #### CBC #### [facility] [address] [place] [address] Dr. Troy JeterRBC4.25 106/ulNormal4.20-5.40The [facility] HospitalCombrighton hospital on above:Performed By: #### CBC #### [facility] [address] [place] [address] Dr. Troy JeterWBC5.1 103/ulNormal4.0-11.0The [facility] Hospitalment on above: Performed By: #### CBC #### [facility] [address] [place] [address] Dr. Troy Hackett 14(COMP METB)on [id number] [Mass/Vol]3.4 g/dLNormal 3.4-5.0The [facility] on above:Performed By: #### CBC #### [facility] [address] [place] [address] Dr. Troy JeterAlbumin/Globulin [Mass ratio]0.9 {ratio}NormalThe [facility] HospitalComment on above:Performed By: #### CBC #### [facility] [address] [place] [address] Dr. Troy Alvarez [Catalytic activity/Vol]99 U/PIdougs13-214Njx [facility] HospitalComment on above:Performed By: #### CBC #### [facility] [address] [place] [address] Dr. Troy Gardner [Catalytic activity/Vol]67 U/LCritically aggh61-91Psp [facility] HospitalComment on above:Performed By: #### CBC #### [facility] [address] [address] [address] Troy Llanos gap [Moles/Vol]12.8 mmol/LNormalW[facility] Comment on above:Performed By: #### CBC #### [facility] [address] [address] [address] Troy JeterAST [Catalytic activity/Vol]54 U/LCritically siui31-43Qkz [facility] HospitalComment on above:Performed By: #### CBC #### [facility] [address] [address] [address] Troy JeterBilirubin [Mass/Vol]0.4 mg/dLNormal0.2-1.0[facility] Comment on above:Performed By: #### CBC #### [facility] [address] [address] [address] Troy JeterCalcium [Mass/Vol]9.3 mg/dLNormal8.5-10.1[facility] Comment on above:Performed By: #### CBC #### [facility] [address] [address] [address] Troy JeterChloride [Moles/Vol]106 mmol/YZtofrb69-148YutWright-Patterson Medical Center Comment on above:Performed By: #### CBC #### [facility] [address] [address] [address] Troy JeterCO2 [Moles/Vol]24.9 mmol/RGlawjx61.0-32.0[facility] Comment on above:Performed By: #### CBC #### [facility] [address] [address] [address] Troy JeterCreatinine [Mass/Vol]0.89 mg/dLNormal0.55-1.02The [facility] HospitalComment on above:Performed By: #### CBC #### [facility] [address] [address] [address] Simmons ChangEGFR-AF EAST TIMORESE>60Normal>=60The [facility] HospitalComment on above:Performed By: #### CBC #### [facility] [address] [address] [address] Troy Alcaraz-NON AF EAST TIMORESE>60Normal>=60The [facility] HospitalComment on above:Performed By: #### CBC #### [facility] [address] [address] [address] Troy JeterGlobulin (S) [Mass/Vol]3.7 g/dLNormMercy Health Clermont HospitalComment on above:Performed By: #### CBC #### [facility] [address] [address] [address] Troy JeterGlucose [Mass/Vol]125 mg/dLCritically ogyx81-343Xsy [facility] HospitalComment on above:Performed By: #### CBC #### [facility] [address] [address] [address] Troy JeterPotassium [Moles/Vol]3.7 mmol/LNormal3.5-5.1The [facility] Comment on above:Performed By: #### CBC #### [facility] [address] [address] [address] Troy JeterProtein [Mass/Vol]7.1 g/dLNormal6.4-8.2The [facility] Comment on above:Performed By: #### CBC #### [facility] [address] [address] [address] Troy JeterSodium [Moles/Vol]140 mmol/UJcafmj881-230Hbm [facility] Comment on above:Performed By: #### CBC #### [facility] [address] [address] [address] Troy JeterUrea nitrogen [Mass/Vol]15.0 mg/dLNormal7.0-18.0The [facility] HospitalComment on above:Performed By: #### CBC #### [facility] [address] [address] [address] Troy JeterUrea nitrogen/Creatinine [Mass ratio]16.9 mg/mgNormMercy Health Clermont HospitalComment on above:Performed By: #### CBC #### [facility] [address] [place] [address] Dr. Troy JeterXR HAND RT MIN 3Von [id number] HAND RT MIN 3VRIGHT HAND X-RAY THREE VIEWS HISTORY: Pain. COMPARISON: None. FINDINGS: There [...] Electronically authenticated by: JULISSA KAUFMAN Date: 2022-11-05 08:18[facility] SystemCYTOLOGYon [id number] TO REF LAB08/10/22[facility] SystemComment on above:Performed By: #### CYTO #### [facility] [address] [place] [address] Dr. Troy JeterCULTURE URINEon [id number] URINECulture Observations: Sent to [facility] for EVIN on 07/25. Isolate 1 Klebsiella pneumoniae >100,000 cfu/mL of ORGANISM 1 Klebsiella pneumoniae ANTIBIOTIC M.I.C RX STATUS Ampicillin R F Ceftriaxone S F Ciprofloxacin R F Ertapenem S F Gentamicin S F Imipenem S F Levofloxacin R F Nitrofurantoin R F Piperacillin/Tazobactam I F Tobramycin R F Amoxicillin/Clavulanic Acid I F Trimethoprim/Sulfamethoxazole S F Cefuroxime I F Meropenem S F Tetracycline R FNormalWright-Patterson Medical CenterComment on above:Performed By: #### CYTO #### [facility] [address] [place] [address] Dr. Troy Coats [id number] nitrogen [Mass/Vol]14.0 mg/dLNormal7.0-18.0 [facility] CenterComment on above:Performed By: #### CYTO #### [facility] [address] [place] [address] Dr. Troy JeterCREATININEon [id number] [Mass/Vol]1.04 mg/dLCritically high0.55-1.02[facility] CenterComment on above:Performed By: #### CYTO #### [facility] [address] [address] [address] Simmons ChangEGFR-AF EAST TIMORESE>60Normal>=60The [facility] HospitalComment on above:Performed By: #### CYTO #### [facility] [address] [address] [address] Simmons ChangEGFR-NON AF ENRMDIDB62 mL/min/1.12r9Xpxwrmqdqq low>=60The [facility] HospitalComment on above:Performed By: #### CYTO #### [facility] [address] [place] [address] Dr. Troy JeterCT ABD/PELV WO W CONon [id number] ABD/PELV WO W CONEXAMINATION: CT ABD/PELV WO W CON, 07/01/2022 10:18 [...] Electronically authenticated by: SPARKLE WHATLEY Date: 2022-07-01 11:40[facility] SystemXR CHEST 2 Von [id number]-CoV-2 (COVID-19) RNA BRANDEN+probe Ql (Unsp spec)EXAM: XR CHEST 2 V HISTORY: Dyspnea post [...] Electronically authenticated by: FRANNY ZEE Date: 2022-05-26 13:26[facility] Health SystemPROTIMEon [id number] Coag (PPP) [Relative time]1.00 {INR} NormalThe [facility] HospitalComment on above:Performed By: #### CYTO #### [facility] [address] [place] [address] Dr. Troy Fry GUIDELINESSEE BELOWAdena Health SystemComment on above:Result Comment: DESIRED INR: 2.0 - 3.0 CONDITIONS NOT LISTED BELOW 2.5 - 3.5 FOR PROSTHETIC HEART VALVE REPLACEMENT 2.5 - 3.5 RECURRENT THROMBOSIS Performed By: #### CYTO #### [facility] [address] [place] [address] Dr. Troy Henderson Coag (PPP) [Time]10.8 sNormal9.0-11.6ThMadison Health Comment on above:Performed By: #### CYTO #### [facility] [address] [place] [address] Dr. Troy Jackson [id number] Coag (Bld) [Time]24.5 aQeqani08.3-36.2[facility] CenterComment on above:Performed By: #### CYTO #### [facility] [address] [place] [address] Dr. Troy DuffyOLOGYdevyn [id number] TO REF LAB04/28/22[facility] SystemComment on above:Performed By: #### CYTO #### [facility] [address] [place] [address] Dr. Yilan ChangMG MAMM SCREEN LT 3D CADon 14-02-1944PL MAMM SCREEN LT 3D CAD Patient: DANIELLA BEJARANO Exam Date: 04/11/2022 : 1960 Gender:F Ordering : DR BAYRON SINGH . Admission #: [id number] Family : Order #: [id number] CLICK HERE TO VIEW EXAM RADIOLOGY REPORT [...] breast cancer at age 68. LOCATION: [facility] BREAST COMPOSITION: Scattered areas fibroglandular density. [...] by: Long Allen M.D. on 04/11/2022 at 13:44NoMercy Health Fairfield Hospital AUTO DIFFon [id number] #0.0 103/ulNormal0.0-0.1The [facility] HospitalComment on above:Performed By: #### CBC #### [facility] [address] [address] [address] Troy JeterBasophils/100 WBC (Bld)0.0 %Critically low0.2-2.0The [facility] HospitalCombrighton hospital on above:Performed By: #### CBC #### [facility] [address] [address] [address] Simmons ChangEO #0.1 103/ulNormal0.0-0.7The [facility] HospitalComment on above: Performed By: #### CBC #### [facility] [address] [place] [address] Dr. Troy Wellsosinophils/100 WBC (Bld)2.1 %Normal0.9-7.0The [facility] Comment on above:Performed By: #### CBC #### [facility] [address] [place] [address] Dr. Troy Wellsrythrocyte distribution width (RBC) [Ratio]14.3 %Hgqsql56.0-15.0 [facility] CenterComment on above:Performed By: #### CBC #### [facility] [address] [place] [address] Dr. Troy JeterHematocrit (Bld) [Volume fraction]31.8 %Critically low36.0-48.0 [facility] CenterComment on above:Performed By: #### CBC #### [facility] [address] [place] [address] Dr. Troy JeterHemoglobin (Bld) [Mass/Vol]9.7 g/dLCritically low12.0-16.0The [facility] HospitalComment on above:Performed By: #### CBC #### [facility] [address] [place] [address] Dr. Troy Christian #0.01 10e3/ulNormal0.00-0.03The [facility] HospitalComment on above:Performed By: #### CBC #### [facility] [address] [place] [address] Dr. Troy Christian %0.3 %Normal0.0-0.5The [facility] HospitalComment on above: Performed By: #### CBC #### [facility] [address] [place] [address] Dr. Troy DrakeH #0.7 103/ulCritically low1.2-3.8The [facility] Comment on above:Performed By: #### CBC #### [facility] [address] [place] [address] Dr. Troy Shahmphocytes/100 WBC (Bld)25.3 %Ooijoy44.5-60.0The [facility] HospitalComment on above:Performed By: #### CBC #### [facility] [address] [place] [address] Dr. Troy Montgomery DIFF REQNONormalThe [facility] HospitalComment on above: Performed By: #### CBC #### [facility] [address] [place] [address] Dr. Troy Almanza (RBC) [Entitic mass]26.9 zlDbaiuk04.7-34.0The [facility] HospitalComment on above:Performed By: #### CBC #### [facility] [address] [place] [address] Dr. Troy Almanza (RBC) [Mass/Vol]30.5 g/nJFkllnc09.9-35.2The [facility] HospitalComment on above:Performed By: #### CBC #### [facility] [address] [place] [address] Dr. Troy Dumont (RBC) [Entitic vol]88.1 tMZzkthm88.0-99.0The [facility] HospitalComment on above:Performed By: #### CBC #### [facility] [address] [place] [address] Dr. Troy Beard #0.4 103/ulNormal0.3-0.8The [facility] HospitalComment on above:Performed By: #### CBC #### [facility] [address] [place] [address] Dr. Troy De La Pazocytes/100 WBC (Bld)14.2 %Critically high1.7-12.0The [facility] HospitalComment on above:Performed By: #### CBC #### [facility] [address] [place] [address] Dr. Troy Chandler #1.7 103/ulNormal1.4-6.5The [facility] HospitalComment on above:Performed By: #### CBC #### [facility] [address] [place] [address] Dr. Yilan ChangNeutrophils/100 WBC (Bld)58.1 %Lcrutu04.0-75.0The [facility] HospitalComment on above:Performed By: #### CBC #### [facility] [address] [place] [address] Dr. Troy Romeo mean volume (Bld) [Entitic vol]9.3 fLCritically low 9.5-13.5The [facility] HospitalComment on above:Performed By: #### CBC #### [facility] [address] [place] [address] Dr. Troy JeterPLT134 103/ulCritically zue038-949Spg [facility] HospitalComment on above:Performed By: #### CBC #### [facility] [address] [place] [address] Dr. Troy JeterRBC3.61 106/ulCritically low4.20-5.40The [facility] HospitalComment on above:Performed By: #### CBC #### [facility] [address] [place] [address] Dr. Troy JeterWBC2.9 103/ulCritically low4.0-11.0The [facility] HospitalComment on above:Performed By: #### CBC #### [facility] [address] [place] [address] Dr. Troy Hackett 14(COMP METB)on [id number] [Mass/Vol]2.7 g/dL Critically low3.4-5.0The [facility] HospitalComment on above:Performed By: #### CMP #### [facility] [address] [place] [address] Dr. Troy JeterAlbumin/Globulin [Mass ratio]0.9 {ratio}NormalThe [facility] HospitalCombrighton [facility] on above:Performed By: #### CMP #### [facility] [address] [place] [address] Dr. Troy Alvarez [Catalytic activity/Vol]51 U/NIgorgs00-019Xcr [facility] HospitalComment on above:Performed By: #### CMP #### [facility] [address] [place] [address] Dr. Troy MalikT [Catalytic activity/Vol]57 U/RXhoqxm53-27Dyf [facility] HospitalComment on above:Performed By: #### CMP #### [facility] [address] [place] [address] Dr. Troy Llanos gap [Moles/Vol]16.1 mmol/LNormalThe [facility] Comment on above:Performed By: #### CMP #### [facility] [address] [place] [address] Dr. Troy JeterAST [Catalytic activity/Vol]69 U/LCritically pfft76-82Jed [facility] HospitalComment on above:Performed By: #### CMP #### [facility] [address] [place] [address] Dr. Troy JeterBilirubin [Mass/Vol]0.2 mg/dLNormal0.2-1.0The [facility] Comment on above:Performed By: #### CMP #### [facility] [address] [place] [address] Dr. Troy JeterCalcium [Mass/Vol]8.1 mg/dLCritically low8.5-10.1The [facility] HospitalComment on above:Performed By: #### CMP #### [facility] [address] [place] [address] Dr. Troy JeterChloride [Moles/Vol]112 mmol/LCritically qpzn01-130Qya [facility] HospitalComment on above:Performed By: #### CMP #### [facility] [address] [place] [address] Dr. Troy JeterCO2 [Moles/Vol]18.3 mmol/LCritically low21.0-32.0The [facility] HospitalComment on above:Performed By: #### CMP #### [facility] [address] [place] [address] Dr. Troy JeterCreatinine [Mass/Vol]0.89 mg/dLNormal0.55-1.02The [facility] HospitalComment on above:Performed By: #### CMP #### [facility] [address] [place] [address] Dr. Troy WellsGFR-AF EAST TIMORESE>60Normal>=60The [facility] HospitalComment on above:Performed By: #### CMP #### [facility] [address] [place] [address] Dr. Troy WellsGFR-NON AF EAST TIMORESE>60Normal>=60The [facility] HospitalComment on above:Performed By: #### CMP #### [facility] [address] [place] [address] Dr. Troy JeterGlobulin (S) [Mass/Vol]3.0 g/dLNormalThe [facility] HospitalComment on above:Performed By: #### CMP #### [facility] [address] [place] [address] Dr. Troy JeterGlucose [Mass/Vol]80 mg/fATljhhb17-013ZgsW[facility]-Pat[facility] Comment on above:Performed By: #### CMP #### [facility] [address] [place] [address] Dr. Troy JeterPotassium [Moles/Vol]3.4 mmol/LCritically low3.5-5.1The [facility] HospitalComment on above:Performed By: #### CMP #### [facility] [address] [place] [address] Dr. Troy JeterProtein [Mass/Vol]5.7 g/dLCritically low6.4-8.2The [facility] HospitalComment on above:Performed By: #### CMP #### [facility] [address] [place] [address] Dr. Troy JeterSodium [Moles/Vol]143 mmol/UCpmgdt847-177Whe [facility] Comment on above:Performed By: #### CMP #### [facility] [address] [place] [address] Dr. Troy JeterUrea nitrogen [Mass/Vol]11.0 mg/dLNormal7.0-18.0The [facility] HospitalComment on above:Performed By: #### CMP #### [facility] [address] [place] [address] Dr. Troy JeterUrea nitrogen/Creatinine [Mass ratio]12.4 mg/mgNormalThe [facility] HospitalComment on above:Performed By: #### CMP #### [facility] [address] [place] [address] Dr. Troy Antonio AUTO DIFFon [id number] #0.0 103/ulNormal0.0-0.1The [facility] HospitalComment on above:Performed By: #### CBC #### [facility] [address] [place] [address] Dr. Troy JeterBasophils/100 WBC (Bld)0.3 %Normal0.2-2.0The [facility] Comment on above:Performed By: #### CBC #### [facility] [address] [place] [address] Dr. Simmons ChangENicole #0.0 103/ulNormal0.0-0.7The [facility] HospitalComment on above: Performed By: #### CBC #### [facility] [address] [place] [address] Dr. Troy Wellsosinophils/100 WBC (Bld)1.2 %Normal0.9-7.0The [facility] Comment on above:Performed By: #### CBC #### [facility] [address] [place] [address] Dr. Troy Wellsrythrocyte distribution width (RBC) [Ratio]14.1 %Srbkkr76.0-15.0 [facility] CenterComment on above:Performed By: #### CBC #### [facility] [address] [place] [address] Dr. Troy JeterHematocrit (Bld) [Volume fraction]32.5 %Critically low36.0-48.0 The [facility] HospitalComment on above:Performed By: #### CBC #### [facility] [address] [place] [address] Dr. Troy JeterHemoglobin (Bld) [Mass/Vol]9.8 g/dLCritically low12.0-16.0The [facility] HospitalComment on above:Performed By: #### CBC #### [facility] [address] [address] [address] Troy Christian #0.01 10e3/ulNormal0.00-0.03The [facility] HospitalComment on above:Performed By: #### CBC #### [facility] [address] [address] [address] Troy Christian %0.3 %Normal0.0-0.5The [facility] HospitalComment on above: Performed By: #### CBC #### [facility] [address] [place] [address] Dr. Troy Cronin #0.6 103/ulCritically low1.2-3.8The [facility] Comment on above:Performed By: #### CBC #### [facility] [address] [place] [address] Dr. Troy Drakehocytes/100 WBC (Bld)18.4 %Critically low20.5-60.0The [facility] HospitalComment on above:Performed By: #### CBC #### [facility] [address] [place] [address] Dr. Troy MárquezUAL DIFF REQNONormalThe [facility] HospitalComment on above: Performed By: #### CBC #### [facility] [address] [place] [address] Dr. Troy Almanza (RBC) [Entitic mass]27.0 wkDpynky53.7-34.0The [facility] HospitalComment on above:Performed By: #### CBC #### [facility] [address] [place] [address] Dr. Troy Almanza (RBC) [Mass/Vol]30.2 g/rTBskbld11.9-35.2The [facility] HospitalComment on above:Performed By: #### CBC #### [facility] [address] [place] [address] Dr. Troy Almanza (RBC) [Entitic vol]89.5 gXAxrtvm08.0-99.0The [facility] HospitalComment on above:Performed By: #### CBC #### [facility] [address] [address] [address] Troy Beard #0.4 103/ulNormal0.3-0.8The [facility] HospitalComment on above:Performed By: #### CBC #### [facility] [address] [place] [address] Dr. Troy De La Pazocytes/100 WBC (Bld)12.7 %Critically high1.7-12.0The [facility] HospitalCombrighton hospital on above:Performed By: #### CBC #### [facility] [address] [place] [address] Dr. Troy Chandler #2.2 103/ulNormal1.4-6.5The [facility] HospitalComment on above:Performed By: #### CBC #### [facility] [address] [place] [address] Dr. Troy Luxutrophils/100 WBC (Bld)67.1 %Ylrhod89.0-75.0The [facility] HospitalComment on above:Performed By: #### CBC #### [facility] [address] [place] [address] Dr. Troy Romeo mean volume (Bld) [Entitic vol]9.7 fLNormal9.5-13.5The [facility] on above:Performed By: #### CBC #### [facility] [address] [place] [address] Dr. Troy JeterPLT140 103/ulCritically zha699-244Dtm [facility]Combright[facility] hospital on above:Performed By: #### CBC #### [facility] [address] [place] [address] Dr. Troy JeterRBC3.63 106/ulCritically low4.20-5.40The [facility] on above:Performed By: #### CBC #### [facility] [address] [place] [address] Dr. Troy JeterWBC3.3 103/ulCritically low4.0-11.0The [facility] HospitalComment on above:Performed By: #### CBC #### [facility] [address] [address] [address] Troy JeterPROF 14(COMP METB)on [id number] [Mass/Vol]2.8 g/dL Critically low3.4-5.0The [facility] HospitalComment on above:Performed By: #### CBC #### [facility] [address] [place] [address] Dr. Troy JeterAlbumin/Globulin [Mass ratio]0.9 {ratio}NormalThe [facility] HospitalComment on above:Performed By: #### CBC #### [facility] [address] [place] [address] Dr. Troy Alvarez [Catalytic activity/Vol]50 U/KEmntwp59-387Utn [facility] HospitalComment on above:Performed By: #### CBC #### [facility] [address] [place] [address] Dr. Troy MalikT [Catalytic activity/Vol]58 U/FJcsepv84-88Pep [facility] HospitalComment on above:Performed By: #### CBC #### [facility] [address] [place] [address] Dr. Troy Llanos gap [Moles/Vol]17.3 mmol/LNormalThe [facility] Comment on above:Performed By: #### CBC #### [facility] [address] [place] [address] Dr. Troy JeterAST [Catalytic activity/Vol]78 U/LCritically egbc51-10Dmt [facility] HospitalComment on above:Performed By: #### CBC #### [facility] [address] [place] [address] Dr. Troy JeterBilirubin [Mass/Vol]0.2 mg/dLNormal0.2-1.0The [facility] Comment on above:Performed By: #### CBC #### [facility] [address] [place] [address] Dr. Troy JeterCalcium [Mass/Vol]8.0 mg/dLCritically low8.5-10.1The [facility] HospitalComment on above:Performed By: #### CBC #### [facility] [address] [address] [address] Troy JeterChloride [Moles/Vol]112 mmol/LCritically wwfc72-874Mfz [facility] Hospitalment on above:Performed By: #### CBC #### [facility] [address] [address] [address] Troy JeterCO2 [Moles/Vol]17.0 mmol/LCritically low21.0-32.0The [facility] HospitalComment on above:Performed By: #### CBC #### [facility] [address] [address] [address] Troy JeterCreatinine [Mass/Vol]0.93 mg/dLNormal0.55-1.02The [facility] HospitalComment on above:Performed By: #### CBC #### [facility] [address] [address] [address] Simmons ChangEGFR-AF EAST TIMORESE>60Normal>=60The [facility] Hospitalment on above:Performed By: #### CBC #### [facility] [address] [address] [address] Troy WellsGFR-NON AF EAST TIM[place]ESE>60Normal>=60The [facility] on above:Performed By: #### CBC #### [facility] [address] [address] [address] Troy JeterGlobulin (S) [Mass/Vol]3.1 g/dLNormalThe [facility] HospitalComment on above:Performed By: #### CBC #### [facility] [address] [address] [address] Troy JeterGlucose [Mass/Vol]77 mg/pMCuquyy13-749Bjh [facility] Comment on above:Performed By: #### CBC #### [facility] [address] [address] [address] Troy JeterPotassium [Moles/Vol]3.3 mmol/LCritically low3.5-5.1The [facility] HospitalComment on above:Performed By: #### CBC #### [facility] [address] [address] [address] Troy JeterProtein [Mass/Vol]5.9 g/dLCritically low6.4-8.2The [facility] HospitalComment on above:Performed By: #### CBC #### [facility] [address] [place] [address] Dr. Troy Matthewsdium [Moles/Vol]143 mmol/WAniuiy433-666Pkw [facility] Comment on above:Performed By: #### CBC #### [facility] [address] [place] [address] Dr. Troy JeterUrea nitrogen [Mass/Vol]12.0 mg/dLNormal7.0-18.0The [facility] HospitalComment on above:Performed By: #### CBC #### [facility] [address] [place] [address] Dr. Troy Vallecillo nitrogen/Creatinine [Mass ratio]12.9 mg/mgNormalThe [facility] HospitalComment on above:Performed By: #### CBC #### [facility] [address] [place] [address] Dr. Troy Antonio AUTO DIFFon [id number] #0.0 103/ulNormal0.0-0.1The [facility] HospitalComment on above:Performed By: #### CYTO #### [facility] [address] [place] [address] Dr. Troy JeterBasophils/100 WBC (Bld)0.2 %Normal0.2-2.0The [facility] Comment on above:Performed By: #### CYTO #### [facility] [address] [place] [address] Dr. Troy Honeycutt #0.0 103/ulNormal0.0-0.7The [facility] HospitalComment on above: Performed By: #### CYTO #### [facility] [address] [place] [address] Dr. Troy Wellsosinophils/100 WBC (Bld)0.2 %Critically low0.9-7.0The [facility]Comment on above:Performed By: #### CYTO #### [facility] [address] [place] [address] Dr. Troy Wellsrythrocyte distribution width (RBC) [Ratio]14.0 %Hwvxrf02.0-15.0 [facility] CenterComment on above:Performed By: #### CYTO #### [facility] [address] [place] [address] Dr. Troy JeterHematocrit (Bld) [Volume fraction]35.4 %Critically low36.0-48.0 The [facility] HospitalComment on above:Performed By: #### CYTO #### [facility] [address] [place] [address] Dr. Troy JeterHemoglobin (Bld) [Mass/Vol]10.9 g/dLCritically low12.0-16.0[facility] CenterComment on above:Performed By: #### CYTO #### [facility] [address] [place] [address] Dr. Troy Christian #0.03 10e3/ulNormal0.00-0.03The [facility] HospitalComment on above:Performed By: #### CYTO #### [facility] [address] [place] [address] Dr. Troy Christian %0.5 %Normal0.0-0.5The [facility] HospitalComment on above: Performed By: #### CYTO #### [facility] [address] [place] [address] Dr. Troy Cronin #0.3 103/ulCritically low1.2-3.8The [facility] Comment on above:Performed By: #### CYTO #### [facility] [address] [place] [address] Dr. Troy Shahmphocytes/100 WBC (Bld)5.8 %Critically low20.5-60.0The [facility] HospitalComment on above:Performed By: #### CYTO #### [facility] [address] [place] [address] Dr. Troy MárquezUAL DIFF REQNONormalThe [facility] HospitalComment on above: Performed By: #### CYTO #### [facility] [address] [place] [address] Dr. Troy Almanza (RBC) [Entitic mass]27.3 llKoweud96.7-34.0The [facility] HospitalComment on above:Performed By: #### CYTO #### [facility] [address] [place] [address] Dr. Troy Almanza (RBC) [Mass/Vol]30.8 g/dKCjgilx33.9-35.2The [facility] HospitalComment on above:Performed By: #### CYTO #### [facility] [address] [place] [address] Dr. Troy Almanza (RBC) [Entitic vol]88.7 jKYwkppn95.0-99.0The [facility] HospitalComment on above:Performed By: #### CYTO #### [facility] [address] [place] [address] Dr. Troy Beard #0.3 103/ulNormal0.3-0.8The [facility] HospitalComment on above:Performed By: #### CYTO #### [facility] [address] [place] [address] Dr. Troy De La Pazocytes/100 WBC (Bld)6.2 %Normal1.7-12.0The [facility] Comment on above:Performed By: #### CYTO #### [facility] [address] [place] [address] Dr. Troy Chandler #4.8 103/ulNormal1.4-6.5The [facility] HospitalComment on above:Performed By: #### CYTO #### [facility] [address] [place] [address] Dr. Troy Luxutrophils/100 WBC (Bld)87.1 %Critically high43.0-75.0The [facility] HospitalComment on above:Performed By: #### CYTO #### [facility] [address] [place] [address] Dr. Troy Hannonlet mean volume (Bld) [Entitic vol]9.6 fLNormal9.5-13.5The [facility] HospitalComment on above:Performed By: #### CYTO #### [facility] [address] [place] [address] Dr. Troy JeterPLT176 103/eqKyenwb534-917Dyc [facility] HospitalComment on above: Performed By: #### CYTO #### [facility] [address] [place] [address] Dr. Troy JeterRBC3.99 106/ulCritically low4.20-5.40The [facility] HospitalComment on above:Performed By: #### CYTO #### [facility] [address] [place] [address] Dr. Troy JeterWBC5.5 103/ulNormal4.0-11.0The [facility] HospitalComment on above: Performed By: #### CYTO #### [facility] [address] [place] [address] Dr. Troy Hackett 14(COMP METB)on [id number] [Mass/Vol]3.1 g/dL Critically low3.4-5.0The [facility] HospitalComment on above:Performed By: #### CYTO #### [facility] [address] [place] [address] Dr. Troy JeterAlbumin/Globulin [Mass ratio]0.9 {ratio}NormalThe [facility] HospitalComment on above:Performed By: #### CYTO #### [facility] [address] [place] [address] Dr. Troy Alvarez [Catalytic activity/Vol]58 U/UDscqiy23-044Tgj [facility] HospitalComment on above:Performed By: #### CYTO #### [facility] [address] [place] [address] Dr. Troy Gardner [Catalytic activity/Vol]49 U/AReuhxq71-67Lhm [facility] HospitalComment on above:Performed By: #### CYTO #### [facility] [address] [place] [address] Dr. Yilan ChangAnion gap [Moles/Vol]15.7 mmol/LNormalThe [facility] Comment on above:Performed By: #### CYTO #### [facility] [address] [address] [address] Troy JeterAST [Catalytic activity/Vol]59 U/LCritically boni45-22Ibc [facility] HospitalComment on above:Performed By: #### CYTO #### [facility] [address] [address] [address] Troy JeterBilirubin [Mass/Vol]0.3 mg/dLNormal0.2-1.0The [facility] Comment on above:Performed By: #### CYTO #### [facility] [address] [place] [address] Dr. Troy JeterCalcium [Mass/Vol]8.1 mg/dLCritically low8.5-10.1The [facility] HospitalComment on above:Performed By: #### CYTO #### [facility] [address] [place] [address] Dr. Troy JeterChloride [Moles/Vol]110 mmol/LCritically pjmm68-509Tgo [facility] HospitalComment on above:Performed By: #### CYTO #### [facility] [address] [place] [address] Dr. Troy JeterCO2 [Moles/Vol]20.8 mmol/LCritically low21.0-32.0The [facility] HospitalComment on above:Performed By: #### CYTO #### [facility] [address] [place] [address] Dr. Troy JeterCreatinine [Mass/Vol]0.94 mg/dLNormal0.55-1.02The [facility] HospitalComment on above:Performed By: #### CYTO #### [facility] [address] [place] [address] Dr. Troy WellsGFR-AF EAST TIMORESE>60Normal>=60The [facility] HospitalComment on above:Performed By: #### CYTO #### [facility] [address] [place] [address] Dr. Troy WellsGFR-NON AF BBPFKOKV60 mL/min/1.04m8Inbiru>=60The [facility] HospitalComment on above:Performed By: #### CYTO #### [facility] [address] [place] [address] Dr. Troy JeterGlobulin (S) [Mass/Vol]3.4 g/dLNormMercy Health Clermont HospitalComment on above:Performed By: #### CYTO #### [facility] [address] [place] [address] Dr. Troy JeterGlucose [Mass/Vol]95 mg/hRDeznxz65-499CcxW[facility] Center Comment on above:Performed By: #### CYTO #### [facility] [address] [place] [address] Dr. Troy JeterPotassium [Moles/Vol]3.5 mmol/LNormal3.5-5.1The [facility] Comment on above:Performed By: #### CYTO #### [facility] [address] [place] [address] Dr. Troy JeterProtein [Mass/Vol]6.5 g/dLNormal6.4-8.2The [facility] Comment on above:Performed By: #### CYTO #### [facility] [address] [place] [address] Dr. Troy JeterSodium [Moles/Vol]143 mmol/NEgmhsb181-949EzhWright-Patterson Medical Center Comment on above:Performed By: #### CYTO #### [facility] [address] [place] [address] Dr. Troy JeterUrea nitrogen [Mass/Vol]18.0 mg/dLNormal7.0-18.0The [facility] HospitalComment on above:Performed By: #### CYTO #### [facility] [address] [place] [address] Dr. Troy JeterUrea nitrogen/Creatinine [Mass ratio]19.1 mg/mgNoCorey HospitalComment on above:Performed By: #### CYTO #### [facility] [address] [place] [address] Dr. Troy JeterCBC W MANUAL DIFFon [id number] LYMPH #NormalThe [facility] HospitalComment on above:Performed By: #### CYTO #### [facility] [address] [address] [address] Troy JeterATYPICAL LYMPH %NormalWright-Patterson Medical CenterComment on above: Performed By: #### CYTO #### [facility] [address] [place] [address] Dr. Troy Bowles #0.1 103/ulNormal0.0-0.3The [place] HospitalComment on above:Performed By: #### CYTO #### [facility] [address] [place] [address] Dr. Troy Bowles %1 %Normal0-5The [facility] HospitalComment on above:Performed By: #### CYTO #### [facility] [address] [place] [address] Dr. Troy Frias #0.08 103/ulNormal0.00-0.10The [facility] HospitalComment on above:Performed By: #### CYTO #### [facility] [address] [place] [address] Dr. Troy Frias %1.0 %Normal0.2-2.0The [facility]Comb[facility] on above: Performed By: #### CYTO #### [facility] [address] [place] [address] Dr. Troy Pearson #NormalWright-Patterson Medical CenterCombrighton hospital on above:Performed By: #### CYTO #### [facility] [address] [place] [address] Dr. Troy Pearson %NormalWright-Patterson Medical CenterComment on above:Performed By: #### CYTO #### [facility] [address] [place] [address] Dr. Troy JeterCORRECTED WBCNormal4.0-11.0The [facility]Comb[facility] on above: Performed By: #### CYTO #### [facility] [address] [place] [address] Dr. Troy Parmar #0.00 103/ulNormal0.00-0.70The [facility] HospitalComment on above:Performed By: #### CYTO #### [facility] [address] [address] [address] Troy Parmar%0.0 %Critically low0.9-7.0The [facility] HospitalComment on above:Performed By: #### CYTO #### [facility] [address] [address] [address] Troy JeterHCT40.2 %Ybjvjh39.0-48.0The [facility] HospitalComment on above: Performed By: #### CYTO #### [facility] [address] [place] [address] Dr. Troy JeterHGB12.5 g/egOllqva07.0-16.0The [facility] HospitalComment on above: Performed By: #### CYTO #### [facility] [address] [place] [address] Dr. Troy Robertson #0.23 103/ulCritically low1.20-3.80The [facility] Comment on above:Performed By: #### CYTO #### [facility] [address] [place] [address] Dr. Troy Robertson%3.0 %Critically low20.5-60.0The [facility] HospitalComment on above:Performed By: #### CYTO #### [facility] [address] [place] [address] Dr. Troy AlmanzaH27.1 xhGrfojo33.7-34.0The [facility] HospitalComment on above: Performed By: #### CYTO #### [facility] [address] [place] [address] Dr. Troy AlmanzaHC31.1 g/iwAbtirr68.9-35.2The [facility] HospitalComment on above:Performed By: #### CYTO #### [facility] [address] [place] [address] Dr. Troy AlmanzaV87.2 wTDkajuz29.0-99.0The [facility] HospitalComment on above: Performed By: #### CYTO #### [facility] [address] [address] [address] Troy QuiñonezELOCYTE #NormalThe [facility] HospitalComment on above: Performed By: #### CYTO #### [facility] [address] [address] [address] Troy ParadaAMYELOCYTE %NormalThe [facility] HospitalComment on above: Performed By: #### CYTO #### [facility] [address] [address] [address] Troy Lopez#0.08 103/ulCritically low0.30-0.80The [facility] on above:Performed By: #### CYTO #### [facility] [address] [place] [address] Dr. Troy Lopez%1.0 %Critically low1.7-12.0The [facility] HospitalComment on above:Performed By: #### CYTO #### [facility] [address] [place] [address] Dr. Troy JeterMPV10.0 fLNormal9.5-13.5The [facility] HospitalComment on above: Performed By: #### CYTO #### [facility] [address] [place] [address] Dr. Troy Jimenez #NormalWright-Patterson Medical CenterComment on above:Performed By: #### CYTO #### [facility] [address] [place] [address] Dr. Troy ErwinOCYTE %NormalThe [facility] HospitalComment on above:Performed By: #### CYTO #### [facility] [address] [place] [address] Dr. Troy JeterNRBCNormalThe [facility] HospitalComment on above:Performed By: #### CYTO #### [facility] [address] [place] [address] Dr. Troy JeterPLT230 103/sxVulsyl024-403Tpm [facility] HospitalComment on above: Performed By: #### CYTO #### [facility] [address] [place] [address] Dr. Troy JeterRBC4.61 106/ulNormal4.20-5.40The [facility] HospitalComment on above:Performed By: #### CYTO #### [facility] [address] [address] [address] Troy JeterRDW13.8 %Nddviu78.0-15.0The [facility] HospitalComment on above: Performed By: #### CYTO #### [facility] [address] [address] [address] Troy Payan #7.14 103/ulCritically high1.40-6.50The [facility] Comment on above:Performed By: #### CYTO #### [facility] [address] [address] [address] Tory Payan %94.0 %Critically high43.0-75.0The [facility] HospitalComment on above:Performed By: #### CYTO #### [facility] [address] [address] [address] Troy JeterWBC7.6 103/ulNormal4.0-11.0The [facility] HospitalComment on above: Performed By: #### CYTO #### [facility] [address] [address] [address] Troy JeterCT ABD/PELVIS WO CONon [id number] ABD/PELVIS WO CON EXAMINATION:CT ABD/PELVIS WO CON [...] calcifications are present. VASCULATURE: Vascularity is unremarkable. PERITONEUM/RETROPERITONEUM: Peritoneum/retroperitoneum is unremarkable. LYMPH NODES: No suspicious lymphadenopathy. [...] Electronically authenticated by: ABDIAZIZ HALEY Date: 2022-03-28 16:37NoCorey HospitalCovid-19 PCR (CVDTBH)on [id number]-CoV-2 (COVID-19) RNA BRANDEN+probe Ql (Unsp spec)Not detectedNormalNOT DETECTEDWright-Patterson Medical Center Comment on above:Result Comment: When diagnostic testing is negative, the [...] for this test is supported by the [place] of Health and Human Service's declaration that circumstances exist to justify the emergency use of in vitro diagnostics for the detection and/or diagnosis of the virus that causes COVID-19. This EUA will remain in effect for the duration of the COVID-19 declaration justifying emergency of IVDs, unless it is terminated or revoked by the FDA (after which the test may no longer be used).Performed By: #### CVDTBH #### [facility] [address] [place] [address] Dr. Simmons ChangESolange URINE PROFILEon 89-44-8567Gphnhkkat Ql (U)NegativeNormal NEGATIVEWright-Patterson Medical CenterComment on above:Performed By: #### CBC #### [facility] [address] [place] [address] Dr. Simmons ChangClarity (U)CLEARNormalCLEARThe [facility] HospitalComment on above: Performed By: #### CBC #### [facility] [address] [place] [address] Dr. Troy Pruitt (U)LT. YELLOWNormalYELLOWWright-Patterson Medical CenterComment on above:Performed By: #### CBC #### [facility] [address] [place] [address] Dr. Troy Chiu micrscopic examination will be performed if indicated. NormalThe [place] HospitalComment on above:Performed By: #### CBC #### [facility] [address] [address] [address] Troy JeterGlucose Ql (U)NegativeNormalNEGATIVEWright-Patterson Medical CenterComment on above:Performed By: #### CBC #### [facility] [address] [place] [address] Dr. Troy JeterHemoglobin Ql (U)SMALLAbnormalNEGATIVEWhite Hospital on above:Performed By: #### CBC #### [facility] [address] [place] [address] Dr. Troy JeterKetones Ql (U)NegativeNormalNEGATIVEWright-Patterson Medical CenterComment on above:Performed By: #### CBC #### [facility] [address] [place] [address] Dr. Troy JeterLEUKOCYTESNegativeNormalNEGATIVEWright-Patterson Medical CenterCombrighton hospital on above:Performed By: #### CBC #### [facility] [address] [place] [address] Dr. Troy JeterNitrite Ql (U)NegativeNormalNEGATIVEWright-Patterson Medical CenterComment on above:Performed By: #### CBC #### [facility] [address] [place] [address] Dr. Troy JeterpH (U)6.0 [pH]Normal5-9W[facility]-Patterson Medical CenterComment on above: Performed By: #### CBC #### [facility] [address] [place] [address] Dr. Troy JeterSPEC GRAVITY1.929Ijkbwk9.005-<=1.025W[facility]-Patterson Medical CenterComment on above:Performed By: #### CBC #### [facility] [address] [place] [address] Dr. Troy Harper PROTEINNegativeNormalNEGATIVE/ TRACEThe [facility] Comment on above:Performed By: #### CBC #### [facility] [address] [place] [address] Dr. Troy Carranza MICRO INDINDICATEDNormalThe [facility] HospitalComment on above: Performed By: #### CBC #### [facility] [address] [address] [address] Troy Mobleybilinogen Qn (U)0.2 {Kriss'U}/dLNormal0.2 - 1.0The [facility] HospitalComment on above:Performed By: #### CBC #### [facility] [address] [place] [address] Dr. Troy Chapa PANEL (PCR)on 80-74-9476Yidetgzycl F 40/41Not detectedNormal NOT DETECTEDThe [facility] HospitalComment on above:Performed By: #### CYTO #### [facility] [address] [place] [address] Dr. Troy JeterAstrovirusNot detectedNormalNOT DETECTEDWright-Patterson Medical Center Comment on above:Performed By: #### CYTO #### [facility] [address] [place] [address] Dr. Troy Barrios. Diff toxin A/BNot detectedNormalNOT DETECTEDThe [facility] HospitalComment on above:Performed By: #### CYTO #### [facility] [address] [place] [address] Dr. Troy EddypylobacterNot detectedNormalNOT DETECTEDWright-Patterson Medical Center Comment on above:Performed By: #### CYTO #### [facility] [address] [place] [address] Dr. Troy BerriosyptosporidiumNot detectedNormalNOT DETECTEDThe [facility] HospitalComment on above:Performed By: #### CYTO #### [facility] [address] [place] [address] Dr. Troy Edwardsos. CayetanensisNot detectedNormalNOT DETECTEDThe [facility] HospitalComment on above:Performed By: #### CYTO #### [facility] [address] [address] [address] Troy Vizcaino Coli D617Rgc ApplicableNormalNot ApplicableThe [facility] HospitalCombrighton hospital on above:Performed By: #### CYTO #### [facility] [address] [address] [address] Troy Wells. histolyticaNot detectedNormalNOT DETECTEDThe [facility] Comment on above:Performed By: #### CYTO #### [facility] [address] [address] [address] Troy WellsAECNot detectedNormalNOT DETECTEDThe [facility] HospitalComment on above:Performed By: #### CYTO #### [facility] [address] [address] [address] Troy WellsIECNot detectedNormalNOT DETECTEDThe [facility] HospitalCombrighton hospital on above:Performed By: #### CYTO #### [facility] [address] [address] [address] Troy WellsPECNot detectedNormalNOT DETECTEDThe [facility] HospitalComment on above:Performed By: #### CYTO #### [facility] [address] [address] [address] Troy WellsTECNot detectedNormalNOT DETECTEDThe [facility] HospitalCombrighton hospital on above:Performed By: #### CYTO #### [facility] [address] [address] [address] Troy Cavazos LambliaNot detectedNormalNOT DETECTEDThe [facility] Comment on above:Performed By: #### CYTO #### [facility] [address] [address] [address] Troy Manning CONTROLSPASSEDAdena Health SystemComment on above:Performed By: #### CYTO #### [facility] [address] [address] [address] Troy Stafford BAR HEADERGI PANEL BACTERIAAdena Health System Comment on above:Performed By: #### CYTO #### [facility] [address] [address] [address] Troy Singh ECOLIGI PANEL DIARRHEAGENIC E.COLI / SHIGELLAAdena Health SystemComment on above:Performed By: #### CYTO #### [facility] [address] [address] [address] Troy Singh INFOSEE Mansfield HospitalComment on above: Result Comment: EAEC- Enteroaggregative E. Coli EPEC- Enteropathogenic E. Coli ETEC- Enterotoxigenic E. Coli lt/st STEC- Shigella-like toxin-producing E. Coli stx1/stx2 EIEC- Shigella/Enteroinvasive E. ColiPerformed By: #### CYTO #### [facility] [address] [address] [address] Troy Singh PARASITESGI PANEL [facility] Comment on above:Performed By: #### CYTO #### [facility] [address] [address] [address] Troy Singh VIRUSGI PANEL [facility] HospitalComment on above:Performed By: #### CYTO #### [facility] [address] [address] [address] Troy Cristobal GI/GIINot detectedNormalNOT DETECTEDThe [facility] HospitalCombrighton hospital on above:Performed By: #### CYTO #### [facility] [address] [address] [address] Troy Guerrier ShigelloidesNot detectedNormalNOT DETECTEDThe [facility] HospitalComment on above:Performed By: #### CYTO #### [facility] [address] [address] [address] Troy JeterRotavirus ADetectedAbnormalNOT DETECTEDWright-Patterson Medical Center Comment on above:Performed By: #### CYTO #### [facility] [address] [address] [address] Troy JeterSalmonellaNot detectedNormalNOT DETECTEDThe [facility] Comment on above:Performed By: #### CYTO #### [facility] [address] [address] [address] Yilan ChangSapovirusNot detectedNormalNOT DETECTEDThe [facility] Comment on above:Performed By: #### CYTO #### [facility] [address] [place] [address] Dr. Troy JeterSTECNot detectedNormalNOT DETECTEDThe [facility] HospitalComment on above:Performed By: #### CYTO #### [facility] [address] [address] [address] Troy wSanbrioNot detectedNormalNOT DETECTEDThe [facility] HospitalComment on above:Performed By: #### CYTO #### [facility] [address] [place] [address] Dr. Troy Jacoboio CholeraNot detectedNormalNOT DETECTEDThe [facility] Comment on above:Performed By: #### CYTO #### [facility] [address] [place] [address] Dr. Troy Sheffield. EnterocoliticaNot detectedNormalNOT DETECTEDThe [facility] HospitalComment on above:Performed By: #### CYTO #### [facility] [address] [place] [address] Dr. Troy JeterLACTATE/LACTIC ACIDon [id number] [Moles/Vol]1.7 mmol/L Normal0.4-1.9The [facility] HospitalComment on above:Performed By: #### CBC #### [facility] [address] [place] [address] Dr. Troy JeterLIPASEon 29-72-3326Etqoey [Catalytic activity/Vol]135.0 U/LNormal 73.0-393.0The [facility] HospitalComment on above:Performed By: #### LIPA, CMP #### [facility] [address] [place] [address] Dr. Troy Hackett 14(COMP METB)on 59-30-1872Chdebyn [Mass/Vol]3.9 g/dLNormal 3.4-5.0The [facility] HospitalComment on above:Performed By: #### LIPA, CMP #### [facility] [address] [place] [address] Dr. Troy JeterAlbumin/Globulin [Mass ratio]1.0 {ratio}NormalWright-Patterson Medical CenterComment on above:Performed By: #### LIPA, CMP #### [facility] [address] [address] [address] Troy MalikP [Catalytic activity/Vol]81 U/UFwrmev14-143Ltm [facility] HospitalComment on above:Performed By: #### LIPA, CMP #### [facility] [address] [address] [address] Troy MalikT [Catalytic activity/Vol]45 U/VCcpejv74-14Kzq [facility] HospitalComment on above:Performed By: #### LIPA, CMP #### [facility] [address] [place] [address] Dr. Troy Rosason gap [Moles/Vol]15.2 mmol/LNormalWright-Patterson Medical Center Comment on above:Performed By: #### LIPA, CMP #### [facility] [address] [place] [address] Dr. Troy Spencer [Catalytic activity/Vol]42 U/LCritically hwig63-28Jkm [facility] HospitalComment on above:Performed By: #### LIPA, CMP #### [facility] [address] [place] [address] Dr. Troy JeterBilirubin [Mass/Vol]0.5 mg/dLNormal0.2-1.0[facility] Comment on above:Performed By: #### LIPA, CMP #### [facility] [address] [place] [address] Dr. Troy JeterCalcium [Mass/Vol]9.4 mg/dLNormal8.5-10.1[facility] Comment on above:Performed By: #### LIPA, CMP #### [facility] [address] [place] [address] Dr. Troy JeterChloride [Moles/Vol]105 mmol/QDdqrks76-005XwaWright-Patterson Medical Center Comment on above:Performed By: #### LIPA, CMP #### [facility] [address] [address] [address] Troy JeterCO2 [Moles/Vol]23.7 mmol/GSzykxw62.0-32.0The [facility] Comment on above:Performed By: #### LIPA, CMP #### [facility] [address] [place] [address] Dr. Troy JeterCreatinine [Mass/Vol]0.91 mg/dLNormal0.55-1.02The [facility] HospitalComment on above:Performed By: #### LIPA, CMP #### [facility] [address] [address] [address] Simmons ChangEGFR-AF EAST TIMORESE>60Normal>=60The [facility] HospitalComment on above:Performed By: #### LIPA, CMP #### [facility] [address] [place] [address] Dr. Troy WellsGFR-NON AF EAST TIMORESE>60Normal>=60The [facility] HospitalComment on above:Performed By: #### LIPA, CMP #### [facility] [address] [place] [address] Dr. Troy JeterGlobulin (S) [Mass/Vol]4.0 g/dLNormalThe [facility] HospitalComment on above:Performed By: #### LIPA, CMP #### [facility] [address] [place] [address] Dr. Troy JeterGlucose [Mass/Vol]119 mg/dLCritically vzwn49-613Cny [facility] HospitalComment on above:Performed By: #### LIPA, CMP #### [facility] [address] [place] [address] Dr. Troy JeterPotassium [Moles/Vol]3.9 mmol/LNormal3.5-5.1The [facility] Comment on above:Performed By: #### LIPA, CMP #### [facility] [address] [place] [address] Dr. Troy JeterProtein [Mass/Vol]7.9 g/dLNormal6.4-8.2The [facility] Comment on above:Performed By: #### LIPA, CMP #### [facility] [address] [address] [address] Troy Trevinoum [Moles/Vol]140 mmol/YEedbvw477-070Eyw [facility] Comment on above:Performed By: #### LIPA, CMP #### [facility] [address] [address] [address] Troy Vallecillo nitrogen [Mass/Vol]16.0 mg/dLNormal7.0-18.0The [facility] HospitalComment on above:Performed By: #### LIPA, CMP #### [facility] [address] [address] [address] Troy Vallecillo nitrogen/Creatinine [Mass ratio]17.6 mg/mgNoalThe [facility] HospitalComment on above:Performed By: #### LIPA, CMP #### [facility] [address] [address] [address] Troy Cisneros MICROSCOPIC ONLYon [id number]N SEEN [facility] CenterComment on above:Performed By: #### CBC #### [facility] [address] [address] [address] Troy Pedraza identified Cx Nom (U)NOT INDICATEDNoalThMadison HealthCombrighton hospital on above:Performed By: #### CBC #### [facility] [address] [address] [address] Troy Javier SEENNormalNONE SEENThe [facility] HospitalComment on above:Performed By: #### CBC #### [facility] [address] [address] [address] Troy Mancera LM Nom (Urine sed)NONE SEENNormalNONE SEENWright-Patterson Medical CenterCombrighton hospital on above:Performed By: #### CBC #### [facility] [address] [address] [address] Simmons ChangEpithelial cells LM Ql (Urine sed)FEWAbnormalNONE SEEN /RAREThe [facility] HospitalCombrighton hospital on above:Performed By: #### CBC #### [facility] [address] [address] [address] Troy Castillo SEENNormalNONE SEENWright-Patterson Medical CenterComment on above:Performed By: #### CBC #### [facility] [address] [address] [address] Troy JeterLlawwGDA3-4Wftrogwm1-4Pna [facility] HospitalComment on above:Performed By: #### CBC #### [facility] [address] [address] [address] Simmons ChangWBC0-2AbnormalNONE SEENWright-Patterson Medical CenterComment on above: Performed By: #### CBC #### [facility] [address] [address] [address] Simmons [facility] [facility] [employer] Surgical Pathology Departmenton [id number] Surgical Pathology DepartmentName DANIELLA BEJARANOArthur Pathologist: AMEE KELSEY DMD Date of Procedure: 08/13/2020 Date Received: 08/17/2020 Date Reported 08/25/2020 Submitting Physician: BUTCH LONG DDS Location: [facility] Other External # FINAL DIAGNOSIS A. LEFT LATERAL TONGUE, EXCISION: -- TRAUMATIC ULCER -- NEGATIVE FOR DYSPLASIA OR MALIGNANCY ICD-10/CPT: K14.0/52351 Electronically Signed Out By AMEE KELSEY DMD/ARASELI By the signature on this report, the individual or group listed as making the Final Interpretation/Diagnosis certifies that they have reviewed this case. [...] entirely submitted in 2 cassettes. [facility] Summary of Cassettes: Specimen Label Site A 1 tips 2 body of [facility]/08/19/2020 [facility] Department of Pathology [id number] [place] [id number] Medical CenterComment on above:Performed By: #### [facility] #### [facility] Surgical Pathology Department [address] [place] [address] [id number] Lab Reporton [id number] Lab ReportUnParkview Health [facility] #: [id number] Department of Physician: [facility] Krystal Bustos M.D. Division of Service Date: 06/11/2020 Cardiology Birthdate: 1960 Adult Cardiovascular Room #: [address] [place] [address] Cardiovascular Laboratory Report INDICATION: The patient a [...] signed informed consent. She was brought to labview programmer in a fasting state. The right neck area was prepped and draped in usual fashion. Using ultrasound guidance and micropuncture technique, the right internal jugular vein was accessed. A 6-[place] x 11 cm sheath was placed. A 6-[place] Duron catheter was used for right heart catheterization with measurement of pressures and calculation of cardiac output using the estimated Daysi method. Duron catheter was removed. Access in the right radial artery was obtained using micropuncture technique. A 6-[place] x 11 cm Hydrophilic sheath was advanced. Verapamil was given through the sheath and heparin was administered intravenously. Note that modified David's test was favorable on the right. Initial catheter advancement was made, feasible using an angled Glidewire to overcome a radial artery loop, following which bilateral selective coronary angiography was performed using 6-[place] JL3.5 and JR5 diagnostic catheter. Catheters were [...] Bustos M.D. Date Trans: 06/12/2020 04:00 Chris/marguerite DN_JN:[id number] cc: Bayron Singh M.D. [address] [place] [address]TsojhyIddMercy Health [facility]*SARS-CoV-2 COVID-19 on 41-32-1387FPQR-COVID-19Not DetectedNormalNot DetectedThe [facility] Arthur G.H. Bing, MD, Cancer CenterComment on above:Order Comment: The Aptima SARS-CoV-2 assay is a nucleic acid amplification test intended for the qualitative detection of RNA from SARS-CoV-2 isolated and purified from nasopharyngeal (DISPLAY MANAGER),oropharyngeal (OP), nasal swab, sputum, and bronchoalveolar lavage (BAL) specimens from patients with signs and symptoms of infection who are suspected of COVID-19. Results are for the identification of SARS-CoV-2 RNA. The SARS-CoV-2 RNA is generally detectable during the acute phase of infection. The Aptima SARS-CoV-2 Assay on the SolarGreen and SolarGreen Fusion system is intended for use by laboratory personnel specifically instructed and trained in the operation of the [place] and SolarGreen Fusion system. The Aptima SARS-CoV-2 assay is [...] with clinical observations, patient history, and epidemiological information.Performed By: #### [id number] #### [facility] [address] [place] [address], USACNPNon [id number] (HEMASA) ANGETranDANIELLA Chris ([id number]) 1960 F Date Time Provider Department 02/17/20 [...] [Z13.8*06/13/2017 Encounter Status:Closed by AI COLVIN on 02/17/20[facility] Vital Signs Date TimeVital SignValuePerforming BxasvpmclBqkpvrsu39-72-6000 11:08-0500Body .83 cmBayron Singh MD Work Phone: [facility]11-07-2025 11:08-0500 Body mass index (BMI) [Ratio]42.5 kg/m2Bayron Singh MD Work Phone: [facility]11-07-2025 11:08-0500 Body jtkmgpxobby37.5 [degF]Bayron Singh MD Work Phone: [facility]11-07-2025 11:08-0500 Body bomlxy697.3 kgBayron Singh MD Work Phone: [facility]11-07-2025 11:08-0500 Diastolic blood mm[Hg]Bayron Singh MD Work Phone: 1(673)163-[address] [place], [place] 2343611-07-2025 11:08-0500 Heart rate64 /minBayron Singh MD Work Phone: 1(030)986-[address] [place], [place] 2343611-07-2025 11:08-0500 Respiratory rate20 /minBayron Singh MD Work Phone: 1(536)686-[address] [place], [place] 2343611-07-2025 11:08-0500 SaO2% (BldA) [Mass fraction]99 %Bayron Singh MD Work Phone: 1(800)799-[address] [place], [place] 2343611-07-2025 11:08-0500 Systolic blood wwhigycb452 mm[Hg]Bayron Singh MD Work Phone: [phone])[address]07-31-2025 11:06-0400 Body fapiap520.8 cmBayron Singh MD Work Phone: [facility] CampusGwvizrgxjz48-50-6743 11:06-0400Body mass index (BMI) [Ratio]43.43 kg/m2Bayron Singh MD Work Phone: [facility] CampusPvmubsvfml61-39-1649 11:06-0400Body temperature 97.5 [degF]Bayron Singh MD Work Phone: [facility] CampusYidizsbvml45-00-2166 11:06-0400Body rvelmg814.57 kgBayron Singh MD Work Phone: [facility] CampusAiaxgqiisu03-13-4595 11:06-0400Diastolic blood zqbcahlw51 mm[Hg]Bayron Singh MD Work Phone: [facility] CampusMlcuoepyvq85-61-2168 11:06-0400Heart rate73 /min Bayron Singh MD Work Phone: [facility] CampusVmcbcwagzv80-45-5747 11:06-0400Respiratory rate20 /minBayron Singh MD Work Phone: [facility] CampusGejxkyvwbb62-03-4343 11:06-1992YcQ5% (BldA) [Mass fraction]97 %Bayron Singh MD Work Phone: [facility] CampusNxeieahtst65-23-8225 11:06-0400Systolic blood mm[Hg]Bayron Singh MD Work Phone: [facility] CampusDvcgatbrtd25-92-0515 10:38-0400Body .8 cmBayron Singh MD Work Phone: [facility] CampusKgbccoirkr94-69-7116 10:38-0400Body mass index (BMI) [Ratio]43.77 kg/m2Bayron Singh MD Work Phone: [facility] CampusNscbmyqmbf24-15-8888 10:38-0400Body temperature 97.5 [degF]Bayron Singh MD Work Phone: [facility] CampusEveijvhpof07-90-6146 10:38-0400Body lufrhj622.48 kgBayron Singh MD Work Phone: [facility] CampusBnziubpxyf60-34-0762 10:38-0400Diastolic blood kednzzyi28 mm[Hg]Bayron Singh MD Work Phone: [facility] CampusCnrhsyelby42-95-0818 10:38-0400Heart rate83 /min Bayron Singh MD Work Phone: [facility] CampusRcwpxpzweu84-91-5623 10:38-0400Respiratory rate20 /minBayron Singh MD Work Phone: [facility] CampusDlsbwgdwag43-20-5910 10:38-1552JeS0% (BldA) [Mass fraction]99 %Bayron Singh MD Work Phone: [facility] CampusYmqdacnpsx00-48-7057 10:38-0400Systolic blood dgqrbrwu925 mm[Hg]Bayron Singh MD Work Phone: [facility] CampusGfdfeagndh71-15-9361 09:57-0500Body ousnac187.8 cmBayron Singh MD Work Phone: [facility] CampusSshlmeifqi19-36-7272 09:57-0500Body mass index (BMI) [Ratio]46.31 kg/m2Bayron Singh MD Work Phone: [facility] CampusGrtcyzardt39-78-4021 09:57-0500Body temperature 97.5 [degF]Bayron Singh MD Work Phone: [facility] CampusXnxyumqcll82-45-6873 09:57-0500Body utfoff661.29 kgBayron Singh MD Work Phone: [facility] CampusVfqoanrips29-18-0809 09:57-0500Diastolic blood mganjbzg02 mm[Hg]Bayron Singh MD Work Phone: [facility] CampusCiolhasboh87-34-3307 09:57-0500Heart rate85 /min Bayron Singh MD Work Phone: [facility] CampusUvqskpxnaq56-53-5986 09:57-0500Respiratory rate22 /minBayron Singh MD Work Phone: [facility] CampusBayyaqxwgr51-14-6120 09:57-4046FeM9% (BldA) [Mass fraction]97 %Bayron Singh MD Work Phone: [facility] CampusXsujzjdabh37-68-4259 09:57-0500Systolic blood jsrobmwp171 mm[Hg]Bayron Singh MD Work Phone: [facility] CampusXwrtcqiizn68-90-0054 10:39-0500Body sscefn935.8 cmBayron Singh MD Work Phone: [facility] CampusEmfgrqkiyj25-17-6411 10:39-0500Body mass index (BMI) [Ratio]47.32 kg/m2Bayron Singh MD Work Phone: [facility] CampusVqmhgqmqcf41-48-7568 10:39-0500Body temperature 97.5 [degF]Bayron Singh MD Work Phone: [facility] CampusRczfxallep15-96-2816 10:39-0500Body noejmt847.01 kgBayron Singh MD Work Phone: [facility] CampusShgzupfjss24-15-7347 10:39-0500Diastolic blood hlfbjnfi10 mm[Hg]Bayron Singh MD Work Phone: [facility] CampusTrmezcahin59-86-7150 10:39-0500Heart rate89 /min Bayron Singh MD Work Phone: [facility] CampusOlyedatcnh59-87-9196 10:39-0500Respiratory rate20 /minBayron Singh MD Work Phone: 1(004)884-[address] [place] [address]Txbiaxyjcl05-73-4143 10:39-9817FwI8% (BldA) [Mass fraction]96 %Bayron Singh MD Work Phone: [facility] CampusVitjanitln60-10-8083 10:39-0500Systolic blood kcdfrxro161 mm[Hg]Bayron Singh MD Work Phone: [facility] CampusQvstakccxl72-88-0945 13:35-0400Body .8 cmMyrna Cordova DO Work Phone: 1(099)[address] [place], [place] 5596210-30-2024 13:35-0400Body mass index (BMI) [Ratio]46.14 kg/m2Myrna Cordova DO Work Phone: 1(343)[facility]4815[facility] CampusIalonotkex70-68-9476 13:35-0400Body boyrmz612.83 kgMyrna Cordova DO Work Phone: 1(887)[facility]2688[facility] CampusWljzmluljz05-47-2347 13:35-0400Body temperature 98.24 [degF][facility]09-04-2024 13:35-0400 Diastolic blood igcexiai16 mm[Hg][facility] 07-03-2024 13:35-0400Heart rate63 /minFair[facility] Center09-04-2024 13:35-0400Mean blood mm[Hg][facility]09-04-2024 13:35-0400Respiratory rate16 /minFair[facility] Medical Center09-04-2024 13:35-6453XhH7% (BldA) [Mass fraction]98 %[facility]09-04-2024 13:35-0400 Systolic blood dcnlazqm892 mm[Hg][facility] 04-26-2023 10:40-0400Heart rate84 /minNov[facility] Healthred [facility]06-28-2023 10:40-2881PwF1% (BldA) [Mass fraction]98 %[facility]06-28-2023 10:40-0400Body iswkqhvyebg66.52 [degF] [facility]06-28-2023 10:39-0400Diastolic blood unbiwxxr86 mm[Hg][facility]06-28-2023 10:39-0400Mean blood hieismvg10 mm[Hg][facility]06-28-2023 10:39-0400Systolic blood axhsmgok222 mm[Hg][facility]06-28-2023 10:39-0400Respiratory rate16 /minFair[facility] Medical Center03-08-2023 08:01-0500Blood Pressure LocationKathy Lue [facility]03-08-2023 08:01-0500Diastolic blood ispellac92 mm[Hg]Dina Lue [facility]03-08-2023 08:01-0500Heart rate71 /minKathy Lue [facility]03-08-2023 08:01-0500Systolic blood gwutiiud061 mm[Hg]Dina Lue [facility]12-28-2022 10:26-0500Blood Pressure LocationJENNIFER RUY [facility]12-28-2022 10:26-0500Diastolic blood knhhvguq75 mm[Hg]AI RUY [facility]12-28-2022 10:26-0500Heart rate65 /minJENNIFER RUY [facility]12-28-2022 10:26-0500Respiratory rate16 /minJENNIFER RYU [facility]12-28-2022 10:26-0500Systolic blood swecfopy477 mm[Hg]AI RUY [facility]12-21-2022 08:01-0500Blood Pressure LocationKathy Lue [facility]12-21-2022 08:01-0500Diastolic blood lcewtzhj10 mm[Hg]Dina Lue [facility]12-21-2022 08:01-0500Heart rate66 /minKathy Lue [facility]12-21-2022 08:01-0500Systolic blood mm[Hg]Dina Lue [facility]12-14-2022 08:11-0500Blood Pressure LocationKathy Lue [facility]12-14-2022 08:11-0500Diastolic blood qcyecglz37 mm[Hg]Dina Lue [facility]12-14-2022 08:11-0500Heart rate74 /minKathy Lue [facility]12-14-2022 08:11-0500Respiratory rate16 /minKathy Lue [facility]12-14-2022 08:11-0500Systolic blood llfebzhe453 mm[Hg]Dina Lue [facility]09-07-2022 10:28-0400Blood Pressure LocationKathy Lue [facility]09-07-2022 10:28-0400Diastolic blood mm[Hg]Dina Lue [facility]09-07-2022 10:28-0400Heart rate74 /minKathy Lue [facility]09-07-2022 10:28-0400Respiratory rate16 /minKathy Lue [facility]09-07-2022 10:28-0400Systolic blood cgsgrezb22 mm[Hg]Dina Lue [facility]05-04-2022 09:27-0400Blood Pressure LocationJENNIFER RUY [facility] [id number] 09:27-0400Diastolic blood ikerfhjj30 mm[Hg] AI RUY [facility] 05-04-2022 09:27-0400Heart rate64 /minAI DAVIDRY [facility] 05-04-2022 09:27-0400Systolic blood eqngwrjr934 mm[Hg] AI REDMOND [facility] 04-13-2022 08:17-0400Blood Pressure LocationKathy Lue [facility] 04-13-2022 08:17-0400Diastolic blood znantvvz93 mm[Hg] Dina Lue [facility] 04-13-2022 08:17-0400Heart rate60 /minKathy Lue [facility] 04-13-2022 08:17-0400Respiratory rate16 /minKathy Lue [facility] 04-13-2022 08:17-0400Systolic blood khqbzxgo993 mm[Hg] Dina Lue [facility] 04-06-2022 08:03-0400Blood Pressure LocationKathy Lue [facility] 04-06-2022 08:03-0400Diastolic blood ohfzpcrh688 mm[Hg] Dina Lue [facility] 04-06-2022 08:03-0400Heart rate72 /minKathy Lue [facility] 04-06-2022 08:03-0400Systolic blood onaovljh904 mm[Hg] Dina Lue [facility] 03-30-2022 08:18-0400Blood Pressure LocationKathy Lue [facility] System[facility] 03-30-2022 08:18-0400Diastolic blood pihswhic08 mm[Hg] Dina Lue [facility] 03-30-2022 08:18-0400Heart rate56 /minKathy Lue [facility] System[facility] 03-30-2022 08:18-0400Systolic blood unvsytlx039 mm[Hg] Dina Lue [facility] Encounters Encounter DateEncounter TypeCare ProviderFacilityStart: 09-05-2025 End: 79-99-1200jfvldlmgomQnzz Naderer MD Work Phone: -[facility] ClydeStart: 09-05-2025 End: 47-85-0570Cbyvzmj encounter procedureBayron Singh MD-[facility] [place] Work Phone: Start: 07-23-2025 End: 87-58-6493anvgegmujlXidnz M. LueFacility:FTMCStart: 07-23-2025 End: 79-77-6205qgcwlnhdahKklvx M. LueFacility:EU BellevueStart: 07-23-2025 End: 67-14-3181Pokkfcx encounter procedureDina Cobb [facility] [place] start: 05-29-2025 End: 04-33-4818Uogfhb flowsAdin Singh MD Work Phone: noms CWM FMStart: 05-29-2025 End: 58-08-8299Iwiqnq flowsAdin Singh MD Work Phone: noms CWM FMStart: 05-29-2025 End: 92-76-5914Linejkunf Result EncounterBayron Singh MD Work Phone: noms External Department UnsolicitedStart: 05-29-2025 End: 03-02-7625Erqddch encounter procedureBayron Singh MD Work Phone: [facility] Work Phone: Start: 05-29-2025 End: 66-67-9043Gktzdg follow up visit related to original Celine Singh MD Work Phone: noms CWM FMComment on above:Medicare annual wellness visit, subsequent (Primary Dx); Dyslipidemia ; Essential hypertension ; Prediabetes; Encounter for long-term current use of medication; Class 3 severe obesity due to excess calories with serious comorbidity and body mass index (BMI) of40.0 to 44.9 in adult ([facility])Start: 05-29-2025 End: 51-02-5990whffnzhordEGZX NADERERNot AvailableStart: 04-16-2025 End: 23-93-9045FzvhrkLgml Naderer MD Work Phone: noms CWM FMComment on above:Class 3 severe obesity due to excess calories with serious comorbidity and body mass index (BMI) of45.0 to 49.9 in adult (CMS-HCC)Start: 03-19-2025 End: 30-51-3366Pnkuqxmegan Singh MD Work Phone: NOHG CWM FMStart: 03-19-2025 End: 04-65-5770Sclceamegan Singh MD Work Phone: NONB CWM FMStart: 03-19-2025 End: 53-69-4970Ehzsle outpatient visit 15 minutesBayron Singh MD Work Phone: noms CWM FMComment on above:Essential hypertension (CMS/HCC) (Primary Dx); Class 3 severe obesity due to excess calories with serious comorbidity and body mass index (BMI) of45.0 to 49.9 in adultStart: 03-19-2025 End: 22-44-7959woibnrpsinTAIV NADERERNot AvailableStart: 03-11-2025 End: 19-74-8265EfzmulEwga Naderer MD Work Phone: NOJF CWM FMComment on above:Class 3 severe obesity due to excess calories with serious comorbidity and body mass index (BMI) of45.0 to 49.9 in adultStart: 01-29-2025 End: 70-88-3152XzgozfUcsd Naderer MD Work Phone: NOEB CWM FMComment on above:Bilateral edema of lower extremity; Class 3 severe obesity due to excess calories with serious comorbidity and body mass index (BMI) of45.0 to 49.9 in adultStart: 01-27-2025 End: 40-79-3021gydojtkmhdQoyqh M. LueFacility:FTMCStart: 01-27-2025 End: 98-28-4937Qpnbpuq encounter Simran Cobb [facility] Start: 01-17-2025 End: 10-75-5077liuibcexpkGCFD NADERERNot AvailableStart: 01-13-2025 End: 48-45-7361dzcsqkxcsgGvkeg NedraArthur NevilleeFacility:FTMCStart: 01-13-2025 End: 64-69-7739Wtyqaxu encounter Sybilromulo SneedArthur Cobb [facility] Start: 12-18-2024 End: 05-61-0437Ushlvb flowsAdin Singh MD Work Phone: noms CWM FMStart: 12-18-2024 End: 20-81-3196Sbaxaz flowsAdin Singh MD Work Phone: noms CWM FMStart: 12-18-2024 End: 66-73-3072Nwqrwu outpatient visit 15 minutesBayron Singh MD Work Phone: noms CWM FMComment on above:Essential hypertension (CMS/HCC) (Primary Dx); Class 3 severe obesity due to excess calories with serious comorbidity and body mass index (BMI) of45.0 to 49.9 in adult (CMS/HCC); Obstructive sleep apnea syndrome; PrediabetesStart: 12-18-2024 End: 41-38-9318mmuclwuvdzXZCB NADERERNot AvailableStart: 12-09-2024 End: 70-30-0713Yjmycbjpl Result EncounterBayron Singh MD Work Phone: noms External Department UnsolicitedStart: 12-09-2024 End: 12-36-4374Koewuddee Result EncounterBayron Singh MD Work Phone: noms External Department UnsolicitedStart: 12-04-2024 End: 33-71-6330Ocdnjgjro Result EncounterBayron Singh MD Work Phone: noms External Department UnsolicitedStart: 12-04-2024 End: 70-40-2731Szsypthcm Result EncounterBayron Singh MD Work Phone: noms External Department UnsolicitedStart: 11-26-2024 End: 24-47-7939Urcfik Gregorio Singh MD Work Phone: NOMS CWM FMStart: 11-26-2024 End: 51-28-3585Temrgemegan Singh MD Work Phone: NOMS CWM FMStart: 11-26-2024 End: 30-08-7586Wlmwki outpatient visit 25 minutesBayron Singh MD Work Phone: NOMS CWM FMComment on above:Essential hypertension (CMS/HCC) (Primary Dx); Abnormal liver function; GERD without esophagitis; History of breast cancer; Bilateral edema of lower extremity; Malignant neoplasm of urinary bladder, unspecified site (CMS/HCC); Class 3 severe obesity due to excess calories with serious comorbidity and body mass index (BMI) of45.0 to 49.9 in adult (CMS/HCC)Start: 11-26-2024 End: 45-12-8042aizcjljnoqOWRB NADERERNot AvailableStart: 11-20-2024 End: 55-60-6535Ouhmvoelg Result EncounterGeneric External Data ProviderNOMS External Department UnsolicitedStart: 11-20-2024 End: 22-91-1229Dfnyccrvb Result EncounterGeneric External Data ProviderNOMS External Department UnsolicitedStart: 11-04-2024 End: 24-43-1058Vqfeeolvo Result EncounterGeneric External Data ProviderNOMS External Department UnsolicitedStart: 11-04-2024 End: 99-20-4351Atezbviws Result EncounterGeneric External Data ProviderNOMS External Department UnsolicitedStart: 10-16-2024 End: 68-27-9850zcctqkebgaPFWMA [facility] Clinictart: 10-11-2024 End: 41-43-9459GcxriyOicb Naderer MD Work Phone: NOMS CWM FMComment on above:Primary insomniaStart: 10-03-2024 End: 47-95-0289WznstnWslq Naderer MD Work Phone: N[facility] CWM FMComment on above:Primary insomnia (Primary Dx)Start: 08-28-2024 End: 99-25-3282Bjrqmqg encounter procedureMyrna Cordova DO Work Phone: NOMS BWM GENSComment on above:Screen for colon cancer (Primary Dx); Personal history of colon polyps, unspecifiedStart: 08-28-2024 End: 96-73-4768xzcdqceqjaHYNN TASAHNot AvailableStart: 08-12-2024 End: 80-37-5286Njmztdyna Result EncounterGeneric External Data ProviderNOMS External Department UnsolicitedStart: 08-12-2024 End: 23-90-7128Hqpgxkxkc Result EncounterGeneric External Data ProviderNOMS External Department UnsolicitedStart: 08-12-2024 End: 13-29-7744uquzugcrsnCYCATM MOOhio [facility] Surgical Hospital Start: 07-10-2024 End: 00-49-8645mqzraeiodrXJVOHSamaritan Hospitaltart: 07-03-2024 End: 10-27-9989qaxsdhdxjrWhnarpr AdamowiczFacility:FTMCStart: 07-03-2024 End: 62-72-4930Vxkdypj encounter procedureNovant Healthred [facility] Start: 43-12-6595Pwakacy encounter procedureGeneric ProviderNOMS HealthcareStart: 05-09-2024 End: 98-03-6050Rpoeayxcc Result EncounterBayron Signh MD Work Phone: noms External Department UnsolicitedStart: 05-09-2024 End: 23-27-6061Ppbjfoilk Result EncounterBayron Singh MD Work Phone: noms External Department UnsolicitedStart: 04-10-2024 End: 80-13-1938rpymruyyriRFOVESamaritan Hospitaltart: 03-19-2024 End: 21-19-1617tvacvdocpjMCO NAWRBrecksville VA / Crille Hospitaltart: 02-14-2024 End: 98-46-2696qqqfmmveazJK Marc Naderer Work Phone: [facility] Work Phone: Start: 02-14-2024 End: 68-11-5874Laxnvcif ReferredMD Bayron Singh Work Phone: [facility]-LAB Path Spec [place] HospStart: 02-13-2024 End: 60-17-7931mtvsnbkhthMivpsaw Duckettcility:[facility] Hospitaltart: 02-09-2024 End: 18-86-3245esvyavmdkaYBYTALQOhioHealth Berger Hospitaltart: 02-09-2024 End: 56-04-0580Xvosjwjna for preprocedural cardiovascular examinationOhioHealth Berger Hospitaltart: 01-11-2024 End: 99-35-5235Cgffqsiqz Result EncounterGeneric External Data ProviderNOMS External Department UnsolicitedStart: 01-11-2024 End: 70-70-0614Dpsztybcx Result EncounterGeneric External Data ProviderNOMS External Department UnsolicitedStart: 65-49-2380iefyshbkakZGSTWMercy Health Allen Hospitaltart: 01-02-2024 End: 23-35-8343ylpubvxzqtSNBQOJMHolzer Hospitaltart: 12-04-2023 End: 86-04-6920Ccumcockw Result EncounterGeneric External Data ProviderNOMS External Department UnsolicitedStart: 12-04-2023 End: 37-02-8463Hotmzekpr Result EncounterGeneric External Data ProviderNOMS External Department UnsolicitedStart: 04-26-2023 End: 81-06-3794Jklhwoi encounter procedureJeff Jacobo [facility] Start: 04-76-3833Tgfyqiirx for general adult medical examination without abnormal findingsDR BAYRON DIALLOLakeHealth [facility] Start: 03-06-2023 End: 09-51-4535rnvaiteutwTV BAYRON Perez [facility]ITALacility:Z8Kxjrt: 03-02-2023 End: 55-74-3807rscgpapqsnEI BAYRNO A NADERERFacility:I0Vdker: 03-02-2023 End: 35-80-9571Vcpzgilzi for general adult medical examination without abnormal findingsDR BAYRON A NADERERFacility:S9Boouj: 01-04-2023 End: 60-66-9437Jlioncf encounter procedureDina Kourtney Cobb [facility] start: 12-28-2022 End: 11-22-7358gtojixaolmWVPJF Nedra LUE .Facility:T8Vcaqa: 37-27-9527Wvnwodusv for preprocedural cardiovascular examinationKATROMULO Sneed NEVILLEE .[facility] Hospitaltart: 12-21-2022 End: 81-66-3517hylxohicmyMBJPF M LUE .Facility:I1Fshzp: 12-21-2022 End: 89-22-8351Glanhtzuo for preprocedural cardiovascular examinationKATROMULO Sneed LUE .Facility:R2Cynvr: 12-14-2022 End: 16-84-0169Vha Drop Olvin ePrez [facility] Start: 12-14-2022 End: 56-96-1132Popyhkb encounter procedureEnedeliaromulo Cobb [facility] start: 12-07-2022 End: 38-68-5078mlscbykrneVKOWP Nedra LUE .Facility:T4Mhdkk: 11-23-2022 End: 58-42-7283glydftzmkqNJ BAYRON A NADERERFacility:Y3Rjmcs: 11-05-2022 End: 04-54-6348upwzjmipiwQQ MARC A NADERERFacility:U8Ngkse: 10-26-2022 End: 59-83-2783Kuxcngf encounter procedureAI REDMOND [facility] start: 10-19-2022 End: 90-27-0117Bcnftjn encounter procedureKatromulo NedraArthur Lue [facility] start: 10-12-2022 End: 49-32-5889Cmbbiyy encounter procedureDina NedraArthur Lue [facility] start: 09-02-2022 End: 93-78-3093vhyrkrskytMU MICAELA DE .Facility:N3Gbwnx: 08-10-2022 End: 98-01-4087pslcsmqkebGSTEZ M LUE .Facility:W4Yhwis: 07-22-2022 End: 26-31-9107cjtfvhkdcnCFMMI M LUE .Facility:E6Qhlne: 07-06-2022 End: 81-32-2189Wovfexc encounter procedureDina Oconnell Lue [facility] start: 07-01-2022 End: 92-55-7260ifmntnkvpmWVGUM M LUE .Facility:G7Xrfht: 06-29-2022 End: 45-50-8472Jodlkco encounter procedureKatromulo MArthur Lue [facility] start: 06-22-2022 End: 66-73-2572Orvntym encounter procedureKatromulo MArthur Lue [facility] start: 05-26-2022 End: 48-44-8946zyrngldqocDD BAYRON Perez NADERERFacility:Y4Fkyhd: 05-18-2022 End: 67-15-4131Bkdggxm encounter procedureKatromulo M. Lue [facility] start: 05-11-2022 End: 19-33-8995wmnmhystpwSXDKP M LUE .Facility:R2Xbqim: 61-80-7176Ycfgqqgtr for preprocedural laboratory examinationKATHY M LUE .[facility]22 End: 99-41-3751rzuchezofiANTQK M LUE .Facility:V5Oelbu: 05-04-2022 End: 24-50-7313Llrrvfvzb for preprocedural laboratory examinationKATHY M LUE . Facility:X4Yqhzw: 04-27-2022 End: 42-11-6172mttbxszapuUVPLS M LUE .Facility:T5Circp: 04-11-2022 End: 53-28-2393wmwwcatgylJI BAYRON A NADERERFacility:P1Fsfiz: 03-28-2022 End: 28-07-9184avypdmsnatIJ BAYRON A NADERERFacility:P3Nrowb: 03-25-2022 End: 76-16-4449Txx Drop offLoco MARRERO [facility] Start: 03-25-2022 End: 30-80-6843Lweomlq encounter procedureLoco MARRERO [facility] start: 03-02-2022 End: 89-84-6491Tpeqtpa encounter procedureJENNIFER E RUY [facility] start: 02-09-2022 End: 00-11-2504Agydsjy encounter procedureKathy M. Lue [facility] start: 02-02-2022 End: 70-04-8000Utongts encounter procedureKathy M. Lue [facility] start: 01-26-2022 End: 04-04-9184Kpv Drop offDina Cobb [facility] Start: 01-26-2022 End: 23-33-5048Cxtsjwz encounter procedureDina Cobb [facility] start: 06-11-2020 End: 71-64-4512Rbryfjp encounter procedurePROVIDER UNKNOWNFacility:[facility] Procedures DateProcedureProcedure DetailPerforming ClinicianStart: 93-72-0688TCX CBC WITH AUTO DIFFBayron Singh MD Work Phone: Start: 88-38-4984GG ABDOMEN WO/W CONBayron Singh MD Work Phone: Start: 57-52-9094UK RIGHT UPPER QUADRANTBayron Singh MD Work Phone: Start: 58-25-5482VCK CBC WITH AUTO DIFFGeneric External Data ProviderStart: 43-41-2998Dtb-scan xtr veins unilateral/limited studyGeneric External Data ProviderStart: 55-08-8507SkrixavneisPomm Naderer MD Work Phone: Start: 28-84-7785JKI PRO BNPGeneric External Data ProviderStart: 05-09-2024 End: 15-39-1256Qyyzamchh digital breast tomosynthesis Geoffrey Singh MD Work Phone: Start: 99-78-7590DruhuhcesioRgmcpvq ProviderStart: 60-17-6263SE ECHO DOPPLER COMPLETEGeneric External Data ProviderStart: 68-12-7571Niytr hand minimum 3 viewsGeneric External Data ProviderStart: 14-39-7125Kasilrqhrc and biopsy of bladderJeff BoothComment on above:BLUE LIGHT CYSTOSCOPYStart: 30-65-1560Vcfmgkaluq and transurethral resection of bladder tumorKathy Lue Comment on above:random bladder biopsies, BL ureteral washingStart: 89-14-0035RdqtwdvrevWnpil Lue Start: 97-16-4298Ubekqpkofx and transurethral resection of bladder tumorKathy Lue Start: 22-37-1048Irmllgolitrap resection of bladder neoplasmKathy Lue Start: 38-23-0958Bjxeziavst, device (physical object) Dina Lue Bilateral replacement of knee jointsKathy Lue Breast surgery (qualifier value)Dina Lue CholecystectomyKathy Lue H/O: hysterectomyKathy Lue TonsillectomyKathy Lue Plan of Treatment DateCare ActivityDetailAuthorStart: 45-32-4303Sooqtljgh for malignant neoplasm of colonNOMS HealthcareStart: 94-13-2419Nkpbqxkhl for malignant neoplasm of colonNOMS HealthcareStart: 55-31-9095Drzzqdjma for malignant neoplasm of colon FIT-DNANOMS HealthcareStart: 09-05-2025 End: 58-73-9792Aelucnk encounter svkyoymfb26/07/2025 11:00 AM EST Office Visit [facility] [address] [place] [address] Bayron Singh MD [address] [place] [address] [facility] FMStart: 68-59-8624BELYZ-19 Vaccine ( season)COVID-19 Vaccine ( season)[facility]OMS HealthcareStart: 09-76-6186Ofudjdmzd vaccinationInfluenza Vaccine (#1)[facility] HealthcareStart: 05-29-2025 End: 22-20-2030Aeowr metabolic 1998 panel - Serum or PlasmaBasic metabolic panel Lab Routine Essential hypertension Expected: 05/29/2025 (Approximate), Expires: 05/29/2026[facility] HealthcareComment on above:Expected: 05/29/2025 (Approximate), Expires: 05/29/2026Start: 05-29-2025 End: 78-72-8848PDP W Auto Differential panel - BloodCBC and differential Lab Routine Encounter for long-term current use of medication Expected: 05/29/2025 (Approximate), Expires: 05/29/2026[facility] HealthcareComment on above:Expected: 05/29/2025 (Approximate), Expires: 05/29/2026Start: 05-29-2025 End: 16-66-8587Sbmxdltmxx A1c/Hemoglobin.total in BloodHemoglobin A1c Lab Routine Prediabetes Expected: 05/29/2025 (Approximate), Expires: 05/29/2026[facility] Healthcare Work Phone: Comment on above:Expected: 05/29/2025 (Approximate), Expires: 05/29/2026Start: 05-29-2025 End: 76-61-5862Gdwdvsk function 2000 panel - Serum or PlasmaHepatic function panel Lab Routine Encounter for long-term current use of medication Expected: 05/29/2025 (Approximate), Expires: 05/29/2026[facility] HealthcareComment on above: Expected: 05/29/2025 (Approximate), Expires: 05/29/2026Start: 05-29-2025 End: 89-98-2559Fwdbk 1996 panel - Serum or PlasmaLipid panel Lab Routine Dyslipidemia Expected: 05/29/2025 (Approximate), Expires: 05/29/2026[facility] HealthcareComment on above:Expected: 05/29/2025 (Approximate), Expires: 05/29/2026Start: 05-29-2025 End: 69-62-3552Aadyfawktvg [Units/volume] in Serum or PlasmaTSH Lab Routine Class 3 severe obesity due to excess calories with serious comorbidity and body mass index (BMI) of 40.0 to 44.9 in adult ([facility]) Expected: 05/29/2025 (Approximate), Expires: 05/29/2026NOMS HealthcareComment on above:Expected: 05/29/2025 (Approximate), Expires: 05/29/2026Start: 05-29-2025 End: 30-81-1919Comrxjg encounter jpsbefsay56/31/2025 11:00 AM EDT Office Visit [facility] [address] [place] [address] Bayron Singh MD [address] [place] [address] ArrivedNOCT CW FMComment on above:ArrivedStart: 05-27-2025 End: 79-32-3180Xbigatu encounter lnmxenplr80/29/2025 11:00 AM EDT Office Visit [facility] [address] [place] [address] Bayron Singh MD [address] [place] [address] [facility] CW FMStart: 99-91-4917Mdcwayktr for malignant neoplasm of breast MammogramNOCT HealthcareStart: 03-19-2025 End: 82-15-3586Pioezqs encounter procedureNOOKLAHOMA [facility] [place] FMComment on above:Arrived Start: 01-17-2025 End: 71-28-8480Ouhsrdv encounter lyqafjkle28/21/2025 10:00 AM EDT Office Visit [facility] [address] [place] [address] Bayron Singh MD [address] [place] [address] [facility] FMStart: 01-15-2025 End: 30-65-6683Itlghvp encounter jgfriypew90/19/2025 9:45 AM EDT Office Visit [facility] [address] [place] [address] Bayron Singh MD [address] [place] [address] [facility] FMStart: 12-18-2024 End: 00-26-5374Szbjdgt encounter mcjwavpsc65/19/2025 9:45 AM EST Office Visit [facility] [address] [place] [address] Bayron Singh MD [address] [place] [address] [facility]rivedNO [facility] FMComment on above:ArrivedStart: 11-26-2024 End: 91-22-7215VG Abdomen limitedUS RUQ Imaging Routine Abnormal liver function Expected: 11/26/2024, Expires: 11/26/2025NOCT Healthcare Work Phone: Comment on above:Expected: 11/26/2024, Expires: 11/26/2025Start: 11-26-2024 End: 96-09-5442Xpaqgtn encounter procedureNOOKLAHOMA SP[facility] [place] FMComment on above:Arrived Start: 11-21-2024 End: 53-53-9094Kcamtuy encounter lqipbabck27/23/2025 11:00 AM EST Office Visit [facility] [address] [place] [address] Bayron Singh MD [address] [place] [address] [facility] FMStart: 11-05-2024 End: 70-36-6161Dxuagsj encounter ggijosexr22/07/2025 11:00 AM EST Consult [facility] [address] [place] [address] Tess Hernandez MD [address] [place] [address] [facility]S OPHTStart: 57-94-1433Prdcvpyzm vaccinationInfluenza Vaccine (#1)[facility]OMS HealthcareStart: 88-10-5560Otvdswncybin Vaccine: 65+ Years (2 of 2 - PCV)Pneumococcal Vaccine: 65+ Years (2 of 2 - PCV)[facility] HealthcareStart: 03-02-4510BFkV/Tdap/Td Vaccines (1 - Tdap)DTaP/Tdap/Td Vaccines (1 - Tdap)[facility] HealthcareStart: 74-47-8735BRO Vaccines (1 of 1 - Standard series)MMR Vaccines (1 of 1 - Standard series)[facility] HealthcareStart: 89-12-7006Tdhtqshnv for malignant neoplasm of [facility]OR[facility] Immunizations Immunization DateImmunizationNotesCare OarmzdyhRttjwxda47-25-7435eyxwzqlsl virus vaccine, unspecified formulationBayron Singh MD Work Phone: [facility] CampusIjitemmrdu45-46-1744tgkxylua calmette-saritha vaccineJENNIFER RUY [facility]12-21-2022bacillus calmette-saritha vaccineKathy Lue [facility]12-14-2022bacillus calmette-saritha vaccineKathy Lue [facility]11-04-2022SARS-CoV-2 (COVID-19) jSUM-1908 vaccineKathy Lue [facility]10-06-2022influenza virus vaccine, unspecified formulationKathy Lue [facility]09-27-2022bacillus calmette-saritha vaccineKathy Lue [facility]09-07-2022bacillus calmette-saritha vaccineKathy Lue [facility]08-31-2022bacillus calmette-saritha vaccineKathy Lue [facility]08-24-2022bacillus calmette-saritha vaccineKathy Lue [facility]05-04-2022bacillus calmette-saritha vaccineJENNIFER RUY [facility] 04895968-15-8664efbgfmmk calmette-saritha vaccineJENNIFER RUY [facility] 04052963-56-9877fetqvpwu calmette-saritha vaccineJENNIFER RUY [facility] 04124323-62-3600njzkrpup calmette-saritha vaccineKathy Lue [facility] 04921703-38-3496entxtgrm calmette-saritha vaccineKathy Lue [facility] 03706489-46-4855decodwtb calmette-saritha vaccineKathy Lue [facility] 02529778-03-8076wluufvkoqsfs polysaccharide vaccine, 23 valentKathy Lue [facility]12-29-2021bacillus calmette-saritha vaccineKathy Lue [facility] 12804278-88-0888gxwzwbck calmette-saritha vaccineKathy Lue [facility] 12211732-63-8110xbqmchla calmette-saritha vaccineKathy Lue [facility] 12640398-87-4395qomnngrw calmette-saritha vaccineKathy Lue [facility] 12838489-89-3733nmifsksb calmette-saritha vaccineKathy Lue [facility] 11202910-06-5875gtgwssjx calmette-saritha vaccineKathy Lue [facility] 10946201-96-0960NNBK-TaD-7 (COVID-19) mRNA-1273 vaccineKathy Lue [facility]10-21-2021influenza virus vaccine, unspecified formulationJENNIFER RUY [facility] 10846623-26-7419mepbagmgh virus vaccine, unspecified formulationKathy Lue [facility]01-28-2021SARS-CoV-2 (COVID-19) mRNA-1273 vaccineKathy Lue [facility] 12-093237-60-1411IPNA-TgL-7 (COVID-19) mRNA-1273 vaccineKathy Lue [facility] 09-645313-97-8699qafohfayw virus vaccine, unspecified formulationKathy Lue [facility]10-01-2015pneumococcal polysaccharide vaccine, 23 valentCarolinaeast [facility] Center Lue [facility] Payers DatePayer CategoryPayerPolicy [id number] [id number] [id number] Health Insurance1.2.840.0946[id number] 2024Medicare [id number]-lki [id number] Cross Blue ShieldBCBS 1.2.840.612684.1.13.693.2.7.9.679340.758[id number] 24-20-4863Olkq-vny37730996790-21-6794XkizdkqTQC1375272CA74-21-0421Aufcfuq [id number] 2.16.840.1.133576.3.579.2.37773-11-0072Xoqzina7117941 2.16.840.1.568864.3.57[id number] 2.16.840.1.711163.3.57[id number] 2.16.840.1.684511.3.579.2.55354-88-2727Zowwury3589372 2.16.840.1.927268.3.579.2.43977-04-6942Gqmrblk4723622 2.16.840.1.761758.3.579.2.26750-33-4334Jaudccw1254800 2.16.840.1.166776.3.579.2.10893-02-2802Bpxpyia5136484 2.16.840.1.393886.3.579.2.76957-66-5732Ryikijx3769853 2.16.840.1.735932.3.579.2.17271-57-1769Migyilj0547848 2.16.840.1.923256.3.579.2.34729-78-1315Mssjphk3573383 2.16.840.1.512951.3.579.2.79554-42-7592Sejoccu3043642 2.16.840.1.484205.3.579.2.66890-47-1659Uhskxfm8694394 2.16840.1.830775.3.579.2.56652-18-0343Oeobqvv5267513 2.16840.1.693318.3.579.2.82008-04-1351Qvqhiuk2886544 2.16840.1.886472.3.579.2.17297-15-0340Hqdvolm7859459 2.16840.1.482194.3.579.2.25434-96-0480Bvelhua3253963 2.840.1.670880.3.579.2.01377-30-9560Akuvkxm62703642 2.840.1.571895.3.579.[id number] 2.840.1.079112.3.579.2.62101-90-8702Sivndim66670812 2.840.1.978299.3.579.2.81673-83-7273Rngtdit04916359 2.0.1.361384.3.579.2.274922-95-1764Masvmim6089465 2.0.1.559234.3.579.2.882323-65-4983Aavhely5499533 2.0.1.283748.3.579.2.920534-60-7278Tpbchbx8576404 2.0.1.759256.3.579.2.533577-02-5878Mnwojmf5330374 2.840.1.023570.3.579.2.698469-07-6531Enpooup1245797 2.840.1.783107.3.579.2.013142-55-8817Hdeiegv29170229 2.840.1.922154.3.579.2.00465-78-7244Hovpyoe67931060 2..840.1.616162.3.579.2.60169-05-9522Ouwrhlf11607381 2.16.840.1.715448.3.579.2.63122-15-5173Gurlcgf Health [id number] 8518905 2.16840.1.930369.3.579.2.623Cdscrmg75499099 2.16840.1.244341.3.579.2.581Yarriavasr5316210dd Social History DateTypeDetailFacilityStart: 03-27-2020 End: 03-26-4410Vmqrigd smoking statusEx-smoker (finding)[facility] start: 54-50-9765Lpxevws smoking statusNeverExec[facility] of [facility] start: 11-08-2023 End: 48-48-5744Miz Assigned At [facility] start: 36-47-7083Ryw Assigned At [facility] End: 52-26-9133Lwehumv of tobacco useCurrent smokerNOMS Healthcare End: 60-15-9279Johigae of tobacco useCigarette SmokerNOMS HealthcareStart: 08-23-2023 End: 02-25-1897Hyfszwn use and exposureSmokeless tobacco non-userNOMS Healthcare Start: 11-15-2023 End: 08-01-3019Liwyfimvg beverage intakeEx-drinker (finding)[facility] Start: 11-08-2023 End: 02-35-4730Quyycgy of Social functionNOMS HealthcareWithin the last year, have you been afraid of your partner or ex-partner?NoNOMS HealthcareAre you now , , , , never or living with a partner? Living with partnerNOMS HealthcareHow often to you have a drink containing alcohol?2-4 times a monthNOMS HealthcareHow many standard drinks containing alcohol do you have on a typical day?1 or 2NOMS HealthcareHow often do you have 6 or more drinks on 1 occasion?NeverNOMS HealthcareDo you feel stress - tense, restless, nervous, or anxious, or unable to sleep at night because yourmind is troubled all the time - these days [OSQ]Only a littleNOMS Healthcare(I/We) worried whether (my/our) food would run out before (I/we) got money to buy more. Never trueNOMS HealthcareStart: 07-72-1978Kosoqcx Commentcaffeine intake: 1-2 cups per day of sodaNOMS HealthcareStart: 12-42-8898Qhv assigned at birthNot on fileNOMS HealthcareDo you belong to any clubs or organizations such as protestant groups, unions, fraternal or athletic groups, or school groups?YesNOMS HealthcareAre you now , , , , never or living with a partner?DivorcedNOMS HealthcareHow often to you have a drink containing alcohol?2-3 time sa weekNOMS HealthcareHow hard is it for you to pay for the very basics like food, housing, medical care, and heatingNot very hard [facility] CampusSexual OrientationL[facility] City Hospital Start: 22-71-9530AqcYkcugn (finding)[facility] Functional Status PlxbIxwtqmktlbAuqzokOxayngwp12-66-8768Uasclpx Health Questionnaire 2 item (PHQ- 2) [Reported][facility] CampusZaqwugmgdd38-98-3935Tgptzln Health Questionnaire 2 item (PHQ- 2) [Reported][facility] CampusJqlxxcuwsx85-69-2444Xhqdbgagom StatusN/AFCity Hospital01-27-2025Total score [AUDIT-C]3 11/25/2024 11:08 AM EST Mychart, Generic [facility] CampusTnixnyeevk09-49-3840Wmz often do you have a drink containing alcohol?2-3 times a week 11/25/2024 11:08 AM EST Mychart, Generic 2-3 times a weekResearch Medical Center-Brookside CampusSpztcgnsno72-66-6076Vjo many standard drinks containing alcohol do you have on a typical day?1 or 2 11/25/2024 11:08 AM EST Mychart, Generic 1 or 2NPershing Memorial HospitalGiqbboqmsi72-15-7760Bnh often do you have 6 or more drinks on 1 occasion?Never 11/25/2024 11:08 AM EST Mychart, Generic NeverResearch Medical Center-Brookside CampusDpavffwfxx31-64-0248 Functional StatusN/AExec[facility] 79-95-7443Fzhfnoxjef StatusN/AExec[facility]12-21-2022Functional StatusN/AExec[facility]12-14-2022Functional StatusN/A[facility]09-07-2022Functional StatusN/AExec[facility]08-24-2022Functional StatusN/A[facility]07-20-2022Functional StatusN/A [facility] Clinical Notes 01-26-2022 to 07-23-2025 Note Date & NdddJgzyIqhmfdmr63-60-0708 Hospital Discharge instructions Patient Education 07/23/2025 11:17:22 Cancer Screening for Females Cancer Screening: Female A cancer screening is a test or exam that checks for cancer. Work with your health care provider tocreate a cancer screening schedule that protects your health. Who should have screening? All females should be considered for screening of certain cancers, including breast cancer, cervical cancer, colorectal cancer, endometrial cancer, lung cancer, and skin cancer. Your health care provider may recommend screenings for other types of cancer if: You have had cancer before. You have a family member with cancer. You have genes that could increase the risk of cancer. You have risk factors for certain cancers, such as current or past use of tobacco products or beingoverweight. What are the benefits of screening? Cancer screening is done to look for cancer in the very early stages, before it spreads and becomesharder to treat and before you would start to notice symptoms. Finding cancer early improves the chances of successful treatment. It may save your life. When should I be screened for cancer? When you should be screened for cancer depends on: Your age. Your medical history and your family's medical history. Certain lifestyle factors, such as smoking or other use of tobacco products. Environmental exposure, such as to asbestos. How is screening done? Breast cancer Breast cancer screening is done with a test that takes images of breast tissue (mammogram) using anX-ray machine. Here are some screening guidelines for females at average risk: When you are 40 44 years old, you should be given the choice to start having mammograms. When you are 45 54 years old, you should have a mammogram every year. You may start having mammograms before you are 45 years old if you have risk factors for breast cancer, such as having an immediate family member with breast cancer. At 55 years old or older, you should have a mammogram every 1 2 years for as long as you are in good health and have a life expectancy of 10 years or longer. It is important to know what your breasts look and feel like so you can report any changes to your health care provider. Cervical cancer Cervical cancer screening is done with an HPV (human papillomavirus) test to identify the virus that causes cervical cancer. To perform the test, a health care provider takes a swab of cells from thelowest part of the uterus (cervix) during a pelvic exam. This test may be performed along with a Pap test. This testchecks for abnormalities in the cervix. All females at average risk should consider being screened for cervical cancer starting no later than 25 years old and continuing until 65 years old. Screening should not begin earlier than 21 years old. You will have tests every 3 5 years, depending on your results and the type of screening test. Talk with your health care provider about which screening test is right for you and how often you should be screened. ?If you have had the HPV vaccine, you will still be screened for cervical cancer and follow normal screening recommendations. You do not need to be screened for cervical cancer if any of the following apply to you: You are older than 65 years old and you have had normal screening tests in the past 10 years with no serious cervical precancer or cancer in the last 25 years. Your cervix and uterus have been removed, and you have never had cervical cancer or abnormal cells that could become cancer (precancerous cells). Colorectal cancer Colorectal cancer screening looks for cancer or for growths called polyps that often form before cancer starts. Tests to look for cancer or polyps include: Colonoscopy or flexible sigmoidoscopy. For these procedures, a flexible tube with a small camera isinserted into the rectum. CT colonography. This test uses X-rays and contrast dye to check the colon for polyps. Tests to look for cancer in the stool (feces) include: Guaiac-based fecal occult blood test (FOBT). This test can find blood in stool. It can be done at home with a kit. Fecal immunochemical test (FIT). This test can find blood in stool. For this test, you will need tocollect stool samples at home. Stool DNA test. This test looks for blood in stool and any changes in DNA that can lead to colon cancer. For this test, you will need to collect a stool sample at home and send it to a lab. All adults should have screenings starting at 45 years old and continuing through 75 years old. Forfemales 76 85 years old, the decision to be screened should be based on a person's preferences, life expectancy, overall health, and prior screening history. Your health care provider may recommend screening before 45 years old. You will have tests every 1 10 years, depending on your results and the type of screening test. People at increased risk should start screening at an earlier age. Talk with your health care provider about which screening test is right for you and how often you should bescreened. Endometrial cancer There is no standard screening test for endometrial cancer, and females at average risk do not routinely need to have this screening. Talk with your health care provider about whether screening is right for you. If it is, this screening is performed through: Endometrial tissue biopsy. This tests a sample of tissue taken from the lining of the uterus. Vaginal ultrasound. If you are at increased risk for endometrial cancer, you may need to have these tests more often than normal. You are at increased risk if: You have a family history of ovarian, uterine, or certain types of colon cancer. You are taking tamoxifen, a medicine used to treat breast cancer. If you have reached menopause, it is especially important to talk with your health care provider about any vaginal bleeding or spotting. Screening for endometrial cancer is not recommended for females who do not have symptoms of the cancer, such as vaginal bleeding. Lung cancer Lung cancer screening is done with a CT scan that looks for abnormal changes in the lungs. Discuss lung cancer screening with your health care provider if you are 50 80 years old and if any of the following apply to you: You currently smoke. You used to smoke heavily. You have a smoking history of 1 pack of cigarettes a day for 20 years or 2 packs a day for 10 years. You may need to be screened every year if you smoke heavily or if you used to smoke. Skin cancer Skin cancer screening is done by checking the skin for unusual moles or spots and any changes in existing moles. Your health care provider should check your skin for signs of skin cancer at every physical exam. You should check your skin every month and tell your health care provider right away if anything looks unusual. Females with a reanfl-whut-gxzikm risk for skin cancer may want to see a air cargo specialist supervisor (building maintenance worker) for an annual body check. Where to find more information [place] [employer]: cancer.org Centers for Disease Control and Prevention: cdc.gov National Cancer Swink: cancer.gov U.S. Department of Health and Human Services: womenshealth.gov Contact a health care provider if: You have concerns about any signs or symptoms of cancer. These may include: ?Skin problems. You may have: ?Moles of an unusual shape or color. ?Changes in existing moles. ?A sore on your skin that does not heal. ?Tiredness (fatigue) that does not go away. ?Losing weight without trying. ?Blood in your urine or stool. ?Problems with coughing or breathing. These may include: ?Coughing or trouble breathing that does not go away. ?Coughing up blood. ?Lumps or other changes in your breasts. ?Vaginal bleeding, spotting, or changes in your period. ?Frequent pain or cramping in your abdomen. This information is not intended to replace advice given to you by your health care provider. Make sure you discuss any questions you have with your health care provider. Document Revised: 10/24/2023 Document Reviewed: 05/08/2023 [employer] Patient Education 2023 [employer]. Follow Up Care 04/30/2025 15:51:09 With:Reza JAMES, ISAIAH Mckeon, URO Address: When: Unknown [facility] 09-24-2025 NotePatient Education Oncology Cancer Screening: Female A cancer screening is a test or exam that checks for cancer. Work with your health care provider tocreate a cancer screening schedule that protects your health. Who should have screening? All females should be considered for screening of certain cancers, including breast cancer, cervical cancer, colorectal cancer, endometrial cancer, lung cancer, and skin cancer. Your health care provider may recommend screenings for other types of cancer if: ??? You have had cancer before. ??? You have a family member with cancer. ??? You have genes that could increase the risk of cancer. ??? You have risk factors for certain cancers, such as current or past use of tobacco products or being overweight. What are the benefits of screening? Cancer screening is done to look for cancer in the very early stages, before it spreads and becomesharder to treat and before you would start to notice symptoms. Finding cancer early improves the chances of successful treatment. It may save your life. When should I be screened for cancer? When you should be screened for cancer depends on: ??? Your age. ??? Your medical history and your family's medical history. ??? Certain lifestyle factors, such as smoking or other use of tobacco products. ??? Environmental exposure, such as to asbestos. How is screening done? Breast cancer Breast cancer screening is done with a test that takes images of breast tissue (mammogram) using anX-ray machine. Here are some screening guidelines for females at average risk: ??? When you are 40?44 years old, you should be given the choice to start having mammograms. ??? When you are 45?54 years old, you should have a mammogram every year. ??? You may start having mammograms before you are 45 years old if you have risk factors for breastcancer, such as having an immediate family member with breast cancer. ??? At 55 years old or older, you should have a mammogram every 1?2 years for as long as you are [employer] and have a life expectancy of 10 years or longer. ??? It is important to know what your breasts look and feel like so you can report any changes to your health care provider. Cervical cancer Cervical cancer screening is done with an HPV (human papillomavirus) test to identify the virus that causes cervical cancer. To perform the test, a health care provider takes a swab of cells from thelowest part of the uterus (cervix) during a pelvic exam. This test may be performed along with a Pap test. This testchecks for abnormalities in the cervix. ??? All females at average risk should consider being screened for cervical cancer starting no later than 25 years old and continuing until 65 years old. Screening should not begin earlier than 21 years old. You will have tests every 3?5 years, depending on your results and the type of screening test. Talk with your health care provider about which screening test is right for you and how often you should be screened. ? If you have had the HPV vaccine, you will still be screened for cervical cancer and follow normalscreening recommendations. You do not need to be screened for cervical cancer if any of the following apply to you: ??? You are older than 65 years old and you have had normal screening tests in the past 10 years with no serious cervical precancer or cancer in the last 25 years. ??? Your cervix and uterus have been removed, and you have never had cervical cancer or abnormal cells that could become cancer (precancerous cells). Colorectal cancer Colorectal cancer screening looks for cancer or for growths called polyps that often form before cancer starts. Tests to look for cancer or polyps include: ??? Colonoscopy or flexible sigmoidoscopy. For these procedures, a flexible tube with a small camera is inserted into the rectum. ??? CT colonography. This test uses X-rays and contrast dye to check the colon for polyps. Tests to look for cancer in the stool (feces) include: ??? Guaiac-based fecal occult blood test (FOBT). This test can find blood in stool. It can be done at home with a kit. ??? Fecal immunochemical test (FIT). This test can find blood in stool. For this test, you will need to collect stool samples at home. ??? Stool DNA test. This test looks for blood in stool and any changes in DNA that can lead to colon cancer. For this test, you will need to collect a stool sample at home and send it to a lab. All adults should have screenings starting at 45 years old and continuing through 75 years old. Forfemales 76?85 years old, the decision to be screened should be based on a person's preferences, life expectancy, overall health, and prior screening history. Your health care provider may recommend screening before 45 years old. You will have tests every 1?10 years, depending on your results and the type of screening test. People at increased risk should start screening at an earlier a (more content not included)...[facility]07-31-2025 History of Present illness Narrative* Bayron Singh MD - 05/29/2025 11:45 AM EDTAssociated Problem(s): Medicare annual wellness visit, subsequent Due for labs. Discussed proper diet and regular aerobic exercise. Need aerobic exercise 5-6 days a week for 30 minutes at a time. Smaller portions and limit total calories. Colonoscopy every 10 years. Tetanus every 10 years. Advised not to smoke. * Bayron Singh MD - 05/29/2025 11:00 AM EDT Subjective Patient ID: Daniella Bejarano is a [...] index (BMI) of40.0 to 44.9 in adult ([facility]) Relevant Medications phentermine (Adipex-P) 37.5 MG tablet [...] differential Hepatic function panel documented in this encounterResearch Medical Center-Brookside [id number] Telephone encounter Note* Telephone Encounter - Bayron Singh MD - 04/16/2025 3:10 PM EDT [facility] [id number] Miscellaneous Notes* Telephone Encounter - Bayron Singh MD - 04/16/2025 3:10 PM EDT documented in this encounterResearch Medical Center-Brookside [id number] History of Present illness Narrative* Bayron Singh MD - 03/19/2025 11:23 AM EDTAssociated Problem(s): Essential hypertension (CMS/HCC) BP controlled and monitor PRN. * Bayron Singh MD - 03/19/2025 11:23 AM EDTAssociated Problem(s): Class 3 severe obesity due to [...] develop new or worsening symptoms contact office. * Bayron Singh MD - 03/19/2025 10:30 AM EDT Images from the original note were not [...] index (BMI) of45.0 to 49.9 in adult Patient doing well [...] worsening symptoms contact office. documented in this encounterResearch Medical Center-Brookside [id number] Telephone encounter Note* Telephone Encounter - PHOENIX FRAIRE - 01/29/2025 8:53 AM EDT MEDICATION SENT TO [facility] [id number] Miscellaneous Notes* Telephone Encounter - PHOENIX FRAIRE - 01/29/2025 8:53 AM EDT MEDICATION SENT TO [facility] documented in this encounterResearch Medical Center-Brookside [id number] Evaluation + Plan note Extracted from:Title:EU- Clinic Note HOPDAuthor:Dina Cobb MDDate:01/13/25 Impression and Plan Assessment and Plan: Diagnosis: History of bladder cancer ([id number] Z85.51, Discharge, Medical), OAB (overactive bladder) ([id number] N32.81, Working, Medical). 64-year-old female former smoker [...] - neg Referred to Dr. Zelaya at [facility] given limitations here for blue light cystoscopy to further evaluateand resect possible CIS. Reviewed external [facility] Dr. 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, call with results -Surveillance cystoscopy and [...] Appointments Appointment Date:07/18/2025 09:00:00 AM Scheduled Provider: Location:[facility] Appointment Type:Urology CALL PAT FT Appointment Date:07/21/2025 10:45:00 AM Scheduled Provider: Location:[facility] Appointment Type:Urology FT Diagnostic Tests Pending * Urine Cytology ([facility]) 01/13/25 Future Scheduled Tests Radiology* CT Urogram 01/13/25 [facility] 03-17-2025 Hospital Discharge instructions Patient Education 01/13/2025 [...] 100 degrees. Follow Up Care 10/16/2024 11:17:59 With:iDna Cobb Address:Unknown When: Unknown Comments:Office to schedule follow up: CTU now at [facility]. Surveillance cystoscopy and cytology in 6 months [facility] 03-17-2025 NoteProgress Note-Physician Patient: DANIELLA BEJARANO Age: [...] 4 wks, then 2x a week afterwards., [facility]/pharmacy #[id number], 163, cm, 06/22/22 8:33:00 EDT, Height/Length Dosing, 115, kg, 06/22/22 8:33:00 EDT, Weigh... Gemtesa 75 mg oral tablet: 75 mg = 1 tab(s), Oral, Daily, # 30 tab(s), Refills(s) 3, Pharmacy: [facility]/pharmacy #[id number], 163, cm, 01/04/23 8:04:00 EST, Height/Length Dosing, 115, kg, 01/04/23 8:04:00 EST, Weight Dosing Vesicare 10 mg Tab: 10 mg = 1 tab(s), Oral, Daily, # 90 tab(s), Refills(s) 3, Pharmacy: [facility]/pharmacy #[id number], 163, cm, 05/18/22 10:12:00 EDT, Height/Length [...] and Plan: Diagnosis: History of bladder cancer ([id number] Z85.51, Discharge, Medical), OAB (overactive bladder) ([id number] N32.81, Working, Medical). 64-year-old female former smoker [...] - neg Referred to Dr. Zelaya at [facility] given limitations here for blue light cystoscopy to further evaluateand resect possible CIS. Reviewed external [facility] Dr. 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, call with results -Surveillance cystoscopy and [...] and asymptomatic bacteruria with (more content not included)...[facility] HospitalComment on above:Result Comment: Electronically Signed By: Reza JAMES, Dina Oconnell\.br\Date and Time Signed: 01/13/25 12:[id number] Note Patient Education Cystoscopy ??? Voiding after [...] if you have a fever over 100 degrees.[facility] 12-18-2024 History of Present illness Narrative* Bayron Singh MD - 12/18/2024 10:21 AM ESTAssociated Problem(s): Essential hypertension ([facility]) BP controlled and monitor PRN. * Bayron Singh MD - 12/18/2024 10:21 AM ESTAssociated Problem(s): Class 3 severe obesity due to excess calories with serious comorbidity and body mass index (BMI) of 45.0 to 49.9 in adult ([facility]) Patient doing well with adipex and lost [...] index (BMI) of45.0 to 49.9 in adult ([facility]) Patient doing well with adipex and lost [...] 2.5 MG/0.5ML solution auto-injector documented in this encounterResearch Medical Center-Brookside [id number] History of Present illness Narrative* Bayron Singh MD - 11/26/2024 11:24 AM ESTAssociated Problem(s): History of breast cancer Follow with oncology. * Bayron Singh MD - 11/26/2024 11:24 AM ESTAssociated Problem(s): GERD without esophagitis Symptoms controlled with protonix and continue. * Bayron Singh MD - 11/26/2024 11:23 AM ESTAssociated Problem(s): Essential hypertension ([facility]) BP controlled and monitor PRN. * Bayron [...] Relevant Orders US RUQ documented in this encounterResearch Medical Center-Brookside [id number] NoteSatisfactory for evaluation. Examination of the ThinPrep slide reveals benign urothelial cells, squamous cells and inflammation.[facility], MD, Cancer CenterComment on above:Order Comment: Via cysto bladder washPerformed By: #### [id number] #### [facility] (BEAKER) [address] [place], [place] [id number] NotePatient ID: Daniella Bejarano is a 64 [...] in the procedure room for the entire procedure.[facility]12-18-2024 NoteI PATIENT: Daniella Bejarano DATE OF : [...] recurrent bladder tumor. Pathology revealed high-grade noninvasive roll handler, muscularis propria present and uninvolved. - 01/26/2022: [...] evidence of malignancy, th (more content not included)...[facility]10-30-2024 History of Present illness Narrative* Myrna Cordova, DO - 08/28/2024 1:30 PM EDT General Surgery H&P Daniella Bejarano 1960 Daniella Bejarano is a 64 y.o. female presents for Colonoscopy (Pt presents today for a colonoscopy consult. Last colonoscopy was 03/19 at [facility] and she had an EMR at [...] 05/05/2023 Acid reflux Arthritis 04/12/2017 Bladder cancer ([facility]) Cancer of breast, intraductal 06/13/2017 cancer, right breast Chronic venous insufficiency Degenerative joint disease of knee Edema of both lower legs Encounter for screening for osteoporosis 06/13/2017 Equinus contracture of right ankle Former smoker 05/05/2023 Gastroesophageal reflux disease Hard to intubate 2022 Hip pain, left History of UTI 05/05/2023 HTN (hypertension) ([facility]) Insomnia, persistent Obesity 06/05/2020 Obstructive [...] Procedure Laterality Date ADENOIDECTOMY BREAST LUMPECTOMY Right 2011 benign CHOLECYSTECTOMY 2007 2011 HEART CATH HYSTERECTOMY 1995 KNEE SURGERY Right arthroscopy- 2007 MASTECTOMY Bilateral right- 03/2017 OTHER SURGICAL HISTORY 09/05/2023 r/o buccal lesion, Timmis SINUS SURGERY 2009 TONSILLECTOMY 1968 TOTAL ABDOMINAL HYSTERECTOMY TOTAL KNEE ARTHROPLASTY Bilateral right- 11/2013, left- 01/31/19 DR RUANO VARICOSE VEIN SURGERY Right 2008 RIGHT LEG VEINS STRIPPED Family History Problem [...] Use: Medium Risk (08/12/2024) Received from [facility] Patient History Smoking Tobacco Use: Former [...] 24 hrs post procedure. Thank you, Tran Cordova DO documented in this encounterResearch Medical Center-Brookside [id number] NoteUT Cardiology - [facility] Subjective Daniella Bejarano is a 64 y.o. year old female patient being seen for hypertension and sinus tachycardia. Jeannette JeremiahLUANA started her on metoprolol at last apt [...] and Headache Medications Cu (more content not included)...[facility]09-11-2024 NoteA. Unsatisfactory for evaluation. Scant cellularity due to obscuring lubricant. Examination of the the ThinPrep slide reveals primarily lubricant with rare urothelial cells.[facility], MD, Cancer CenterComment on above: Order Comment: Via cystoPerformed By: #### [id number] #### [facility] ([facility]) [address] [place], [place] [id number] NoteI PATIENT: Daniella Bejarano DATE OF : [...] recurrent bladder tumor. Pathology revealed high-grade noninvasive roll handler, muscularis propria present and uninvolved. - 01/26/2022: [...] evidence of malignancy, th (more content not included)...[facility]09-11-2024 NotePatient ID: Daniella Bejarano is a 64 [...] in the procedure room for the entire procedure.[facility]09-04-2024 NoteOncology Progress Note Chief Complaint Hx Breast Ca; no questions or concerns. Oncological History/ROS/PE/Assessment and Plan 64 year old female with limited pmhx. 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 Dr. Ward performed R [...] She referred to Dr. Lisa Zelaya at [facility] who repeated the biopsy and [...] working PRN. she finished intravescle therapy in [place] and follows with them q3mos. She see Dr. Santiago in [place]. cancer free since december this year. She [...] Normal range of motion. Integumentary: Warm, Dry, [place]. Neurologic: Alert, Oriented, Normal sensory. Psychiatric: Cooperative, [...] No information available Labs No Qualifying Data AvailableProtestant Deaconess Hospital06-12-2024 NoteA. Satisfactory for evaluation. Examination of the ThinPrep slide reveals a hypocellular specimen containing scattered squamous cells and rare urothelial cells.[facility], Cancer CenterComment on above:Order Comment: Via cystoPerformed By: #### [id number] ####[facility] (BEAKER)[address] [place], [place] [id number] NotePatient ID: Daniella Bejarano is a 63 [...] in the procedure room for the entire procedure.[facility]06-12-2024 NoteI PATIENT: Daniella Bejarano DATE OF : [...] recurrent bladder tumor. Pathology revealed high-grade noninvasive roll handler, muscularis propria present and uninvolved. - 01/26/2022: [...] evidence of malignancy, th (more content not included)...[facility]06-05-2024 Note04-03-24@ 0715 Colonoscopy with EMR procedure note along with pathology results faxed to referring office of Dr. Myrna Cordova @[phone].[facility]05-21-2024 NotePatient: Daniella Bejarano Procedure Summary Date: 03/19/24 Room / Location: [facility] [place] [facility] Anesthesia Start: 1143 Anesthesia Stop: 1316 [...] acceptable Hydration status: balanced No notable events documented.[facility]05-21-2024 Note Airway Date/Time: 03/19/2024 11:51 AM Urgency: elective General Information and Staff Patient location during procedure: OR Anesthesiologist: Lázaro Lopes MD Resident/MEDIA ANALYST/CAA: Kurtis Regalado DO Performed: resident/MEDIA ANALYST/CAA Indications and Patient Condition Indications for airway [...] approach: 1 Number of other approaches attempted: 0[facility] 03-19-2024 NotePatient: Daniella Bejarano Procedure Information Date/Time: 03/19/24 1115 Scheduled providers: Jenn Vieira MD; JOAN Bateman; Lázaro Lopes MD Procedure: DIAGNOSTIC COLONOSCOPY Location: [facility] [place] [facility] Relevant Problems Anesthesia (+) Obstructive sleep [...] patient. Plan discussed with CAA. 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 Do not wear perfume, make-up, nail yakut, or lotions on the day of your [...] need to make any changes, please call [phone]. Notify your surgeon if you develop any illness such as a cold, cough, fever, sore throat or vomiting between now and your surgery. Thank you for entrusting us with your care. [facility] Surgical Services TeamUnKettering Health Springfield04-12-2024 Note RCRI= 1???points Class II Risk 6.0???% 30-day risk of , RI, or cardiac arrest From a cardiac perspective pt may proceed with colonoscopy, she is a low risk for a low risk procedure. She may hold Aspirin if absolutely needed. Please monitor hemodynamics carefully and prevent any major fluid shifts. This is good for 6 monthsUnKettering Health [facility]04-12-2024 Note Hypertension is well controlled Continue olmesartan, and start toprol Renal function stableUnKettering Health Springfield04-12-2024 NoteNoted sinus tachycardia with occasional PACs and PVCs- will start toprol 25 mg daily for management D/W pt to call office for low b/p, fatigue, lightheadedness/dizziness. Or any concernsUnKettering Health Springfield04-12-2024 NoteUTP CARDIOLOGY PROGRESS NOTE [place] [facility] HPI: Daniella Bejarano is a 63 [...] of the proximal t (more content not included)...[facility]04-12-2024 Note Patient here for follow up Holter [...] myalgias. All other systems reviewed and are negative.[facility] 01-10-2024 NoteSatisfactory for evaluation. Examination of the ThinPrep slide reveals a hypocellular specimen consisting of benign urothelial cells and squamous cells.[facility], Cancer CenterComment on above:Order Comment: Via cystoPerformed By: #### [id number] #### [facility] ([facility]) [address] [place], [place] [id number] NotePatient ID: Daniella Bejarano is a 63 [...] in the procedure room for the entire procedure.[facility]03-13-2024 NoteI PATIENT: Daniella Bejarano DATE OF : [...] recurrent bladder tumor. Pathology revealed high-grade noninvasive roll handler, muscularis propria present and uninvolved. - 01/26/2022: [...] referred to me for further management. Ms. Bejaraon underwent white and bluelight cystoscopy, bilateral RPG, [...] evidence of malignancy, th (more content not included)...[facility]03-05-2024 Note2-3 day holter monitor today to assess for any arrythmias, PVC burden Check BMP and mag level today to assess electrolyte level She may benefit from beta neal dependent upon [facility] NoteC/O worsening SOB with exertion and edema, will check echocardiogram to assess cardiac function, RV function and rt sided pressures, valvular function [facility]03-05-2024 Notest[facility]Un[facility]03-05-2024 NoteHypertension is well controlled currently 124/80 Continue olmesartan 40 mg daily. Depending upon holter monitor result she may benefit from a beta neal for frequent PVCs and palpitationsUnK[facility]03-05-2024 NotePatient here c/o SOB, LE edema, and [...] myalgias. All other systems reviewed and are negative.[facility] 01-02-2024 NoteUTP CARDIOLOGY PROGRESS NOTE HPI: Daniella [...] 0 [DISCONTINUED] ergocalciferol (Vitamin D-2) 1.25 MG (40998 Units) capsule Take by mouth. [DISCONTINUED] oxybutynin [...] - 1.02 mg/dL 1.07 High TBH EGFR-AF [place] >=60 >60 TBH EGFR-NON AF [place] >=60 51 Low BUN CREATININE RATIO 13.1 CALCIUM 8. (more content not included)...[facility]03-08-2023 Hospital Discharge instructions Patient Education 01/04/2023 08:33:50 [...] cells. Follow these instructions at home: Take xxdz-eog-wffppnh and prescription medicines only as told by [...] is important. Where to find more information [place] [employer]: www.cancer.org National Cancer Swink (NCI): www.cancer.gov Contact a health care provider [...] 10/18/2004 Document Revised: 09/28/2018 Document Reviewed: 09/19/2017 [employer] Patient Education 2019 be[employer]ruited. Follow Up Care 01/02/2023 12:19:37 With:Reza JAMES, ISAIAH Mckeon, URO Address: When: Unknown [facility] 12-21-2022 Hospital Discharge instructions Patient Education 10/19/2022 [...] cells. Follow these instructions at home: Take wzdn-tgl-kxqcxsa and prescription medicines only as told by [...] is important. Where to find more information [place] [employer]: www.cancer.org National Cancer Swink (NCI): www.cancer.gov Contact a health care provider [...] 10/18/2004 Document Revised: 09/28/2018 Document Reviewed: 09/19/2017 [employer] Patient Education 2019 be[employer]ruited. [facility] 12-14-2022 Hospital Discharge instructions Patient Education 10/12/2022 [...] cells. Follow these instructions at home: Take byds-swh-vcrsjji and prescription medicines only as told by [...] is important. Where to find more information [place] [employer]: www.cancer.org National Cancer Swink (NCI): www.cancer.gov Contact a health care provider [...] 10/18/2004 Document Revised: 09/28/2018 Document Reviewed: 09/19/2017 [employer] Patient Education The [email or web address]. Follow Up Care 08/22/2022 12:52:59 With:Reza JAMES, ISAIAH Mckeon, URO Address: When:1 week Comments:BCG #2 of #3 [facility] 12-07-2022 Hospital Discharge instructions Follow Up Care 10/05/2022 15:19:40 With:AI REDMOND PA-C, URL Address: [address] [place] [address] When: Unknown [facility] 09-07-2022 Hospital Discharge instructions Patient Education 07/06/2022 [...] cells. Follow these instructions at home: Take iekp-qtt-fpysawd and prescription medicines only as told by [...] is important. Where to find more information [place] [employer]: www.cancer.org National Cancer Swink (NCI): www.cancer.gov Contact a health care provider [...] 10/18/2004 Document Revised: 09/28/2018 Document Reviewed: 09/19/2017 [employer] Patient Education 2020 be[employer]ruited. Follow Up Care 05/18/2022 11:12:11 With:Reza JAMES, ISAIAH Mckeon, URO Address: When: Unknown [facility] Discharge instructions Patient Education 06/29/2022 [...] cells. Follow these instructions at home: Take ikok-cus-oeflvuw and prescription medicines only as told by [...] is important. Where to find more information [place] [employer]: www.cancer.org National Cancer Swink (NCI): www.cancer.gov Contact a health care provider [...] 10/18/2004 Document Revised: 09/28/2018 Document Reviewed: 09/19/2017 [employer] Patient Education 2020 be[employer]ruited. Follow Up Care 05/18/2022 11:11:14 With:Reza JAMES, ISAIAH Mckeon, URO Address: When:Within 1 Week(s) Comments:BCG #3 [facility] 08-24-2022 Hospital Discharge instructions Patient Education 06/22/2022 [...] cells. Follow these instructions at home: Take zmew-wcx-edfmcvd and prescription medicines only as told by [...] is important. Where to find more information [place] [employer]: www.cancer.org National Cancer Swink (NCI): www.cancer.gov Contact a health care provider [...] 10/18/2004 Document Revised: 09/28/2018 Document Reviewed: 09/19/2017 [employer] Patient Education 2020 be[employer]ruited. Follow Up Care 05/18/2022 11:09:55 With:Reza JAMES, ISAIAH Mckeon, URO Address: When:1 week Comments:bcg #2 [facility] 07-20-2022 Hospital Discharge instructions Patient Education 05/18/2022 [...] cells. Follow these instructions at home: Take hvhn-frx-pxduwyp and prescription medicines only as told by [...] is important. Where to find more information [place] [employer]: www.cancer.org National Cancer Swink (NCI): www.cancer.gov Contact a health care provider [...] 10/18/2004 Document Revised: 09/28/2018 Document Reviewed: 09/19/2017 [employer] Patient Education 2020 be[employer]ruited. Follow Up Care 05/12/2022 12:08:46 With:Reza JAMES, ISAIAH Mckeon, URO Address: When:1 month [facility] 05-19-2022 Hospital Discharge instructions Follow Up Care 03/17/2022 16:12:48 With:Jeff Booth Address: [facility] [place] [address] [phone] Fax Business (1) When: Unknown Comments:f/u 1 year. no labs. [facility]05-04-2022 Hospital Discharge instructions Patient Education 03/02/2022 09:44:08 [...] cells. Follow these instructions at home: Take ihzz-uur-wumzhuf and prescription medicines only as told by [...] is important. Where to find more information [place] [employer]: www.cancer.org National Cancer Swink (NCI): www.cancer.gov Contact a health care provider [...] 10/18/2004 Document Revised: 09/28/2018 Document Reviewed: 09/19/2017 [employer] Patient Education 2020 beRecruited. Follow Up Care 12/29/2021 09:06:11 With:AI REDMOND PA-C, URL Address: [address] [place] [address] When: Unknown Comments:follow up after cysto with [facility] 04-13-2022 Hospital Discharge instructions Patient Education 02/09/2022 [...] cells. Follow these instructions at home: Take ufvi-dnr-vuvpamo and prescription medicines only as told by [...] is important. Where to find more information [place] [employer]: www.cancer.org National Cancer Swink (NCI): www.cancer.gov Contact a health care provider [...] 10/18/2004 Document Revised: 09/28/2018 Document Reviewed: 09/19/2017 [employer] Patient Education 2020 beRecruited. Follow Up Care 12/29/2021 09:03:01 With:Reza JAMES, ISAIAH Mckeon, URO Address: When: Unknown [facility] 04-06-2022 Hospital Discharge instructions Patient Education 02/02/2022 [...] cells. Follow these instructions at home: Take rzhf-qzd-bdeiycl and prescription medicines only as told by [...] is important. Where to find more information [place] [employer]: www.cancer.org National Cancer Swink (NCI): www.cancer.gov Contact a health care provider [...] 10/18/2004 Document Revised: 09/28/2018 Document Reviewed: 09/19/2017 [employer] Patient Education 2020 beRecruited. Follow Up Care 12/29/2021 09:02:14 With:Reza JAMES, ISAIAH Mckeon, URO Address: When: Unknown [facility] 03-30-2022 Hospital Discharge instructions Patient Education 01/26/2022 [...] cells. Follow these instructions at home: Take pkdm-ahb-ohsgpje and prescription medicines only as told by [...] is important. Where to find more information [place] [employer]: www.cancer.org National Cancer Swink (NCI): www.cancer.gov Contact a health care provider [...] 10/18/2004 Document Revised: 09/28/2018 Document Reviewed: 09/19/2017 [employer] Patient Education 2020 beRecruited. Follow Up Care 12/29/2021 08:59:52 With:Dina Cobb MD, URL, URO Address: [facility] [place] [address] [phone] Business (1) When: Unknown [facility] evaluation + Plan note Future Appointments Appointment Date:02/02/2022 08:00:00 AM Scheduled Provider:Dina Cobb MD Location:[facility] Appointment Type:URO Office Visit Appointment Date:02/09/2022 08:00:00 AM Scheduled Provider:Dina Cobb MD Location:[facility] Appointment Type:URO Office Visit Appointment Date:02/16/2022 08:00:00 AM Scheduled Provider:Dina Cobb MD Location:[facility] Appointment Type:URO Office Visit Appointment Date:02/23/2022 08:00:00 AM Scheduled Provider:Dina Cobb MD Location:[facility] Appointment Type:URO Office Visit Appointment Date:03/02/2022 09:30:00 AM Scheduled Provider:Dina Cobb MD Location:[facility] Appointment Type:URO Office Visit Appointment Date:03/17/2022 03:00:00 PM Scheduled Provider:Jeff Booth DO [facility] Type:ONC Office Visit New (FT) [facility] evaluation + Plan note Future Appointments Appointment Date:02/02/2022 08:00:00 AM Scheduled Provider:Dina Cobb MD Location:[facility] Appointment Type:URO Office Visit Appointment Date:02/09/2022 08:00:00 AM Scheduled Provider:Dina Cobb MD Location:[facility] Appointment Type:URO Office Visit Appointment Date:02/16/2022 08:00:00 AM Scheduled Provider:Dina Cobb MD Location:[facility] Appointment Type:URO Office Visit Appointment Date:02/23/2022 08:00:00 AM Scheduled Provider:Dina Cobb MD Location:[facility] Appointment Type:URO Office Visit Appointment Date:03/02/2022 09:30:00 AM Scheduled Provider:Dina Cobb MD Location:[facility] Appointment Type:URO Office Visit Appointment Date:03/17/2022 03:00:00 PM Scheduled Provider:Jeff Booth DO Location:.ONCOLOGY Appointment Type:ONC Office Visit New 30 (FT) Diagnostic Tests Pending * [facility]ments Appointment Date:02/09/2022 08:00:00 AM Scheduled Provider:Dina Cobb MD Location:[facility] Appointment Type:URO Office Visit Appointment Date:02/16/2022 08:00:00 AM Scheduled Provider:Dina Cobb MD Location:[facility] Appointment Type:URO Office Visit Appointment Date:02/23/2022 08:00:00 AM Scheduled Provider:Dina Cobb MD Location:[facility] Appointment Type:URO Office Visit Appointment Date:03/02/2022 09:30:00 AM Scheduled Provider:Dina Cobb MD Location:[facility] Appointment Type:URO Office Visit Appointment Date:03/17/2022 03:00:00 PM Scheduled Provider:Jeff Booth DO [facility] Type:ONC Office Visit New 30 (FT) [facility] evaluation + Plan note Future Appointments Appointment Date:02/16/2022 08:00:00 AM Scheduled Provider:Dina Cobb MD Location:[facility] Appointment Type:URO Office Visit Appointment Date:02/23/2022 08:00:00 AM Scheduled Provider:Dina Cobb MD Location:[facility] Appointment Type:URO Office Visit Appointment Date:03/02/2022 09:30:00 AM Scheduled Provider:D[facility] Office Visit Appointment Date:03/17/2022 03:00:00 PM Scheduled Provider:Jeff Booth DO Location:FT.ONCOLOGY Appointment Type:ONC Office Visit New 30 (FT) [facility] evaluation + Plan note Future Appointments Appointment Date:03/17/2022 03:00:00 PM Scheduled Provider:Jeff Booth DO Location:FT.ONCOLOGY Appointment Type:ONC Office Visit New 30 (FT) [facility] evaluation + Plan note Future Appointments Appointment Date:03/15/2023 12:30:00 PM Scheduled Provider:Jeff Booth DO Location:FT.ONCOLOGY Appointment Type:ONC Office Visit 15 (FT) Diagnostic Tests Pending * Urine [facility] Appointment Date:03/15/2023 12:30:00 PM Scheduled Provider:Jeff Booth DO Location:FT.ONCOLOGY Appointment Type:ONC Office Visit 15 (FT) [facility] evaluation + Plan note Future Appointments Appointment Date:06/22/2022 10:15:00 AM Scheduled Provider:Dina Cobb MD Location:[facility] Appointment Type:URO Office Visit Appointment Date:06/29/2022 10:15:00 AM Scheduled Provider:Dina Cobb MD [facility] Type:[facility] Office Visit Appointment Date:07/06/2022 10:15:00 AM Scheduled Provider:Dina Cobb MD [facility] Type:[facility] Office Visit Appointment Date:03/15/2023 12:30:00 PM Scheduled Provider:Jeff Booth DO Location:FT.ONCOLOGY Appointment Type:ONC Office Visit 15 (FT) [facility] evaluation + Plan note Future Appointments Appointment Date:06/29/2022 07:45:00 AM Scheduled Provider:Dina Cobb MD Location:[facility] Appointment Type:URO Office Visit Appointment Date:07/06/2022 10:15:00 AM Scheduled Provider:Dina Cobb MD Location:[facility] Appointment Type:URO Office Visit Appointment Date:03/15/2023 12:30:00 PM Scheduled Provider:Jeff Booth DO Location:FT.ONCOLOGY Appointment Type:ONC Office Visit 15 (FT) [facility] evaluation + Plan note Future Appointments Appointment Date:07/06/2022 10:15:00 AM Scheduled Provider:Dina Cobb MD Location:[facility] Appointment Type:URO Office Visit Appointment Date:03/15/2023 12:30:00 PM Scheduled Provider:Jeff Booth DO Location:FT.ONCOLOGY Appointment Type:ONC Office Visit 15 (FT) Diagnostic Tests Pending * BUN 06/29/22 * Creatinine 06/29/22 [facility] evaluation + Plan note Future Appointments Appointment Date:10/19/2022 08:00:00 AM Scheduled Provider:Dina Cobb MD Location:[facility] Appointment Type:URO Office Visit Appointment Date:10/26/2022 10:30:00 AM Scheduled Provider:AI REDMOND PA-C Location:[facility] Appointment Type:URO Office Visit Appointment Date:03/15/2023 12:30:00 PM Scheduled Provider:Jeff Booth DO Location:.ONCOLOGY Appointment Type:ONC Office Visit 15 (FT) [facility] evaluation + Plan note Future Appointments Appointment Date:10/26/2022 10:30:00 AM Scheduled Provider:AI REDMOND PA-C Location:[facility] Appointment Type:URO Office Visit Appointment Date:03/15/2023 12:30:00 PM Scheduled Provider:Jeff Booth DO Location:FT.ONCOLOGY Appointment Type:ONC Office Visit 15 (FT) [facility] evaluation + Plan note Future Appointments Appointment Date:03/15/2023 12:30:00 PM Scheduled Provider:Jeff Booth DO Location:FT.ONCOLOGY Appointment Type:ONC Office Visit 15 (FT) Diagnostic Tests Pending * Urine Culture [facility]ments Appointment Date:04/24/2024 11:00:00 AM Scheduled Provider:Jeff Booth DO Location:FT.ONCOL[facility]Y Appointment Type:ONC Office Visit 15 (FT) [facility] App[facility]ments Appointment Date:07/18/2025 09:00:00 AM Scheduled Provider: Location:[facility] Appointment Type:Urology CALL PAT FT Appointment Date:07/21/2025 10:45:00 AM Scheduled Provider: Location:[facility] Appointment Type:Urology FT [facility] Evaluation noteNo assessment information available [facility] Work Phone: Evaluation note* Diagnosis Essential hypertension [...] (CMS/HCC) Body mass index (BMI) 45.0-49.9, adult ([facility]/HCC) Need for malaria prophylaxis Primary insomnia- Primary [...] (CMS/HCC) Body mass index (BMI) 45.0-49.9, adult ([facility]) Need for malaria prophylaxis Primary insomnia Persistent [...] (CMS/HCC) Body mass index (BMI) 45.0-49.9, adult ([facility]) Need for malaria prophylaxis Essential hypertension (CMS/HCC)- [...] (BMI) of45.0 to 49.9 in adult (CMS/HCC) [facility] [...] (BMI) of45.0 to 49.9 in adult (CMS/HCC) Essential hypertension (CMS/HCC)- Primary Unspecified essential hypertension Class 3 severe obesity due to excess calories with serious comorbidity and body mass index (BMI) of45.0 to 49.9 in adult (CMS/HCC) Obstructive sleep apnea syndrome Obstructive sleep apnea (adult) (pediatric) Prediabetes Other abnormal glucose [facility] [...] index (BMI) of45.0 to 49.9 in adult Essential hypertension (CMS/HCC)- Primary Unspecified essential hypertension Class 3 severe obesity due to excess calories with serious comorbidity and body mass index (BMI) of45.0 to 49.9 in adult Obstructive sleep apnea syndrome Obstructive sleep apnea (adult) (pediatric) Prediabetes Other abnormal glucose Essential hypertension (CMS/HCC)- Primary Unspecified essential hypertension Class 3 severe obesity due to excess calories with serious comorbidity and body mass index (BMI) of45.0 to 49.9 in adult Bilateral edema of lower extremity Class 3 severe obesity due to excess calories with serious comorbidity and body mass index (BMI) of45.0 to 49.9 in adult [facility] [...] index (BMI) of45.0 to 49.9 in adult Essential hypertension (CMS/HCC)- Primary Unspecified essential hypertension Class 3 severe obesity due to excess calories with serious comorbidity and body mass index (BMI) of45.0 to 49.9 in adult Obstructive sleep apnea syndrome Obstructive sleep apnea (adult) (pediatric) Prediabetes Other abnormal glucose Essential hypertension (CMS/HCC)- Primary Unspecified essential hypertension Class 3 severe obesity due to excess calories with serious comorbidity and body mass index (BMI) of45.0 to 49.9 in adult Class 3 severe obesity due to excess calories with serious comorbidity and body mass index (BMI) of45.0 to 49.9 in adult documented in this encounter [facility]* Diagnosis Essential hypertension (CMS/HCC)- Primary [...] index (BMI) of45.0 to 49.9 in adult Essential hypertension (CMS/HCC)- Primary Unspecified essential hypertension Class 3 severe obesity due to excess calories with serious comorbidity and body mass index (BMI) of45.0 to 49.9 in adult Obstructive sleep apnea syndrome Obstructive sleep apnea (adult) (pediatric) Prediabetes Other abnormal glucose Essential hypertension (CMS/HCC)- Primary Unspecified essential hypertension Class 3 severe obesity due to excess calories with serious comorbidity and body mass index (BMI) of45.0 to 49.9 in adult Essential hypertension (CMS/HCC)- Primary Unspecified essential hypertension Class 3 severe obesity due to excess calories with serious comorbidity and body mass index (BMI) of45.0 to 49.9 in adult documented in this encounter [facility]* Diagnosis Essential hypertension- Primary Unspecified essential hypertension Lower extremity edema Edema Bilateral edema of lower extremity GERD without esophagitis Esophageal reflux Malignant neoplasm of urinary bladder, unspecified site (HCC) Morbid obesity (CMS-HCC) Morbid obesity Annual physical exam- Primary Routine general medical examination at a health care facility Morbid (severe) obesity due to excess calories (CMS-HCC) Body mass index (BMI) 45.0-49.9, adult (CMS-HCC) Need for malaria prophylaxis Essential hypertension- Primary [...] index (BMI) of45.0 to 49.9 in adult (CMS-HCC) Essential hypertension- Primary Unspecified essential hypertension Class 3 severe obesity due to excess calories with serious comorbidity and body mass index (BMI) of45.0 to 49.9 in adult (CMS-HCC) Obstructive sleep apnea syndrome Obstructive sleep apnea (adult) (pediatric) Prediabetes Other abnormal glucose Essential hypertension- Primary Unspecified essential hypertension Class 3 severe obesity due to excess calories with serious comorbidity and body mass index (BMI) of45.0 to 49.9 in adult (CMS-HCC) Essential hypertension- Primary Unspecified essential hypertension Class 3 severe obesity due to excess calories with serious comorbidity and body mass index (BMI) of45.0 to 49.9 in adult (CMS-HCC) Class 3 severe obesity due to excess calories with serious comorbidity and body mass index (BMI) of45.0 to 49.9 in adult ([facility]) documented in this encounter [facility] HealthcareEvaluation note* Diagnosis Essential hypertension- Primary Unspecified essential hypertension Lower extremity edema Edema Bilateral edema of lower extremity GERD without esophagitis Esophageal reflux Malignant neoplasm of urinary bladder, unspecified site ([facility]) Morbid obesity ([facility]) Morbid obesity Annual physical exam- Primary Routine general medical examination at a health care facility Morbid (severe) obesity due to excess calories ([facility]) Body mass index (BMI) 45.0-49.9, adult ([facility]) Need for malaria prophylaxis Essential hypertension- Primary Unspecified essential hypertension Abnormal liver function Unspecified disorder of liver GERD without esophagitis Esophageal reflux History of breast cancer Personal history of malignant neoplasm of breast Bilateral edema of lower extremity Malignant neoplasm of urinary bladder, unspecified site ([facility]) Class 3 severe obesity due to excess calories with serious comorbidity and body mass index (BMI) of45.0 to 49.9 in adult ([facility]) Essential hypertension- Primary Unspecified essential hypertension Class 3 severe obesity due to excess calories with serious comorbidity and body mass index (BMI) of45.0 to 49.9 in adult ([facility]) Obstructive sleep apnea syndrome Obstructive sleep apnea (adult) (pediatric) Prediabetes Other abnormal glucose Essential hypertension- Primary Unspecified essential hypertension Class 3 severe obesity due to excess calories with serious comorbidity and body mass index (BMI) of45.0 to 49.9 in adult ([facility]) Essential hypertension- Primary Unspecified essential hypertension Class 3 severe obesity due to excess calories with serious comorbidity and body mass index (BMI) of45.0 to 49.9 in adult ([facility]) Medicare annual wellness visit, subsequent- Primary Dyslipidemia Other and unspecified hyperlipidemia Essential hypertension Unspecified essential hypertension Prediabetes Other abnormal glucose Encounter for long-term current use of medication Class 3 severe obesity due to excess calories with serious comorbidity and body mass index (BMI) of40.0 to 44.9 in adult ([facility]) documented in this encounter [facility] HealthcareEvaluation note* Diagnosis Onset Date Resolution Status Admit Date Essential hypertension acuteNovember 2024 10:53amObesityacuteNovember 2024 10:53am [facility] Work Phone: Hospital course Narrative No data available for this section [facility] Hospital Discharge instructions No data available for this section [facility] No data available for this section [facility] reason for referral (narrative)No reason for referral information availableUniversity [facility] Work Phone: Summary Purpose Family History Relationship Condition Age at Onset Recorded Date/T jacinto brother Arthritis Unknown fatherDeceasedUnknownNot SpecifiedHistory of strokeUnknownsisterMyocardial infarctionUnknown Relationship Condition Age at Onset Recorded Date/T jacinto brother Arthritis Unknown fatherDeceasedUnknownmotherHistory of strokeUnknownsisterMyocardial infarction Unknown Advance Directives Advance Directive Response Recorded Date/ Time Advance Directives No March 26 0 12:51pm Advance Directive Response Recorded Date/ Time Advance Directives No March 26 0 11:51am Chief Complaint and Reason for Visit Chief Complaint Admit Date Established Patient September 05, 2025 1 0:53am Reason for Visit Admit Date Essential hypertension September 05 5 10:53am Obesity September 05, 2025 1 0:53am Additional Source Comments INFORMATION SOURCE (unrecogn ized section and content) DATE CREATED AUTHOR 06/24/2020 [facility] DATE CREATED AUTHOR AUTHOR'S ORGANIZ ATION 09/01/2020 [facility] DATE CREATED AUTHOR AUTHOR'S ORGANIZ ATION 11/21/2020 [facility] DATE CREATED AUTHOR AUTHOR'S ORGANIZ ATION 03/09/2023 [facility] DATE CREATED AUTHOR AUTHOR'S ORGANIZ ATION 02/24/2024 [facility] DATE CREATED AUTHOR AUTHOR'S ORGANIZ ATION 12/02/2024 [facility] DATE CREATED AUTHOR AUTHOR'S ORGANIZ ATION 01/15/2025 [facility] DATE CREATED AUTHOR AUTHOR'S ORGANIZ ATION 01/28/2025 [facility] DATE CREATED AUTHOR AUTHOR'S ORGANIZ ATION 05/31/2025 [facility] DATE CREATED AUTHOR AUTHOR'S ORGANIZ ATION 07/25/2025 [facility] DATE CREATED AUTHOR AUTHOR'S ORGANIZ ATION 08/04/2025 [facility] Care Team (unrecognized sect ion and content) Team Status: Active Member Role Status Dates Bayron Singh MD Primary Care Provider Active Team Status: Inactive Member Role Status Dates Bayron Singh MD Primary Care Provider Active S tart: February 14, 2024 End: February 14, 2024Timothy DuckettAttending ProviderActiveStart: February 14, 2024 End: February 14, 2024Team MemberRelationshipSpecialtyStart DateEnd Date Bayron Singh MD [address] [place] [phone] PCP - [employer]12/29/23 Bayron Singh MD [address] [place] [phone] PCP - [facility]05/21/24Team MemberRelationshipSpecialtyStart DateEnd Date Bayron Singh MD [address] [place] [phone] PCP - [employer]12/29/23 Bayron Singh MD [address] [place] [phone] [facility]/24Team MemberRelationshipSpecialtyStart DateEnd Date Bayron Singh MD [address] [place] [phone] PCP - [employer]12/29/23 Bayron Singh MD [address] [place] [address] PCP - [facility]05/21/24Team MemberRelationshipSpecialtyStart DateEnd Date Bayron Singh MD [address] [place] [address] PCP - [employer]12/29/23 Bayron Singh MD [address] [place] [address] [facility] - [facility]05/21/24Team MemberRelationshipSpecialtyStart DateEnd Date Bayron Singh MD [address] [place] [address] PCP - [employer] [facility] [employer]12/29/23 Bayron Singh MD [address] [place] [address] [facility] - [facility]05/21/24Team MemberRelationshipSpecialtyStart DateEnd Date Bayron Singh MD [address] [place] [address] PCP - [employer] [facility] [employer]12/29/23 Bayron Singh MD [address] [place] [address] [facility] - [facility]05/21/24Team MemberRelationshipSpecialtyStart DateEnd Date Bayron Singh MD [address] [place] [address] PCP - [employer] [facility] [employer]12/29/23 Bayron Singh MD [address] [place] [address] PCP - [facility]05/21/24Team MemberRelationshipSpecialtyStart DateEnd Date Bayron Singh MD [address] [place] [address] PCP - [employer]12/29/23 Bayron Singh MD [address] [place] [address] PCP - [facility]05/21/24Team MemberRelationshipSpecialtyStart DateEnd Date Bayron Singh MD [address] [place] [address] PCP - [facility]05/21/24Team MemberRelationshipSpecialtyStart DateEnd Date Bayron Singh MD [address] [place] [address] PCP - [facility]05/21/24Team MemberRelationshipSpecialtyStart DateEnd Date Bayron Singh MD [address] [place] [address] PCP - [facility]05/21/24Team MemberRelationshipSpecialtyStart DateEnd Date Bayron Singh MD [address] [place] [address] [facility]CP - [facility]05/21/24Team MemberRelationshipSpecialtyStart DateEnd Date Bayron Singh MD [address] [place] [address] PCP - [facility]05/21/24Team MemberRelationshipSpecialtyStart DateEnd Date Bayron Singh MD [address] [place] [address] PCP - [facility]05/21/24Team MemberRelationshipSpecialtyStart DateEnd Date Bayron Singh MD [address] [place] [address] PCP - [facility]05/21/24Team MemberRelationshipSpecialtyStart DateEnd Date Bayron Singh MD [address] [place] [address] PCP - [facility]05/21/24Team MemberRelationshipSpecialtyStart DateEnd Date Bayron Singh MD [address] [place] [address] PCP - [facility]05/21/24Team MemberRelationshipSpecialtyStart DateEnd Date Bayron Singh MD [address] [place] [address] PCP - [facility]05/21/24Team MemberRelationshipSpecialtyStart DateEnd Date Bayron Singh MD [facility] Bayron Singh MD [address] [place] [phone] PCP - [facility]12/29/2411 Bayron Singh MD [address] [place] [address] PCP - [facility]05/21/24Team MemberRelationshipSpecialtyStart DateEnd Date Bayron Singh MD PCP - [facility]05/21/24 Team Status: Active Member Role/Relationship Status Dates Bayron Singh MD Primary Care Provider Active Team Status: Inactive Member Role/Relationship Status Dates Bayron Singh MD Primary Care Provider Active S tart: September 05, 2025 End: September 05, 2025Mar MARISEL Singhttending ProviderActiveStart: September 05, 2025 End: September 05, 2025 Goals (unrecognized section and content) Goals may be documented in a n alternate section Reason for Visit (unrecogniz ed section and content) ReasonCommentsColonoscopyPt presents today for a colonoscopy consult. Pt denies/admits to: admits to having a colonoscopy before. Last colonoscopy was 03/19 and it was an EMR. She states that she had a colonoscopy done with [facility] in January and there was large polyps. She was told by the DR at [facility] that she needed a follow upcolonoscopy by the end of year to make sure she was healing well. She denies any concerns.ReasonOnset DateCommentsMed [id number] Onset DateCommentsMed [id number]-mq4fInmvsqgDxdfy all the timeShortness of BreathReasonCommentsFollow-upadipexReasonOnset DateComments Med Kaanlt6801/29/2025ReasonCommentsMed RefillReasonCommentsFollow-sv5cQwqysn CommentsMedicare Annual Wellness Visit Subsequentwellness FOR RECORDS PERTAINING TO PATIENTS WHO ARE [...] BE BASED ON THE PRIMARY CLINICAL RECORDS. [employer] [facility] provides no warranty or guarantee of the accuracy or completeness of information in this document.
== END 2025-09-17 14:17 | disposition home or self-care (01) ==
LOC: MAMMO 14:16
PROVIDERS: PCP Family Medicine; Visit Provider Family Medicine
DX: Z12.31 Encounter for screening mammogram for malignant neoplasm of breast (principal); Z80.3 Family history of malignant neoplasm of breast
CPT/HCPCS: 77063; 77067